=== PATIENT | male | born 1950 | race Caucasian/White ===

== ENCOUNTER 2016-07-25 22:56 | Inpatient (IN) | payer MEDICARE, OTHER ==
[~2016-07-25] VITALS: Ht 182.9 cm; Wt 102.6 kg
[~2016-07-25 22:56] MED LIST: ACET325T33 PO; ACID1TAB14 PO; ALBU2.5V3 NEB; ASPI-664 PO; CLOP75TA4 PO; CORE10CR PO; DULO30CA45 PO; FLUT16SP17 NASAL; GUAI-352 PO; HYDR-906 PO; LORA1TAB PO; PANT40TA3 PO; POLY17PO6 PO; SEVE800T7 PO
--- NOTE | 2016-07-25 23:35 | ERA ---
ER Documentation Chief Complaint Date/Time DATE: 07/25/16 TIME: 23:33 Chief Complaint sent from [facility] for R axillary thrombus HPI The patient is a 66-year-old male, presenting to the ER because he was found to have a right axillary vein thrombus from the ultrasound. He was discharged recently 4 days ago for right upper extremity cellulitis. He denies any fever, chills, shortness of breath, chest pain, palpitation, diaphoresis, abdominal pain, vomiting, dysuria, polyuria. He does not smoke, drink Past medical history: Hypertension, chronic kidney disease, hemodialysis on Saturday and Saturday, seizure disorder, Parkinson disease, COPD, history of CHF, peripheral vascular disease, anxiety, depression, dyslipidemia, CAD, pulmonary hypertension. Past surgical history: Left upper extremity AV fistula, left below-knee amputation, cholecystectomy, cardiac PCI ROS All systems reviewed and are negative except as per history of present illness. Medications Home Meds Reported Medications Carvedilol* (Coreg CR*) 10 Mg Capsr, 12.5 MG PO BID, #30 CAP 07/20/16 Acetaminophen* (Tylenol*) 325 Mg Tablet, 650 MG PO Q6H Y for PAIN1-3/FEVER ABOVE 100, TAB 07/03/16 Sevelamer Carbonate* (Renvela*) 800 Mg Tablet, 0.8 GM PO WITH MEALS, TAB 07/03/16 Pantoprazole* (Protonix*) 40 Mg Tablet.dr, 40 MG PO DAILY, TAB 07/03/16 Clopidogrel Bisulfate* (Clopidogrel Bisulfate*) 75 Mg Tablet, 75 MG PO DAILY, # 30 TAB 07/03/16 Hydrocodone/Acetaminophen ([place] 5-325 Tablet) 1 Each Tablet, 1 EACH PO Q4 Y for PAIN5-10, TAB 07/03/16 Polyethylene Glycol* (Miralax*) 17 Gm Powd.pack, 17 GM PO DAILY, #30 PACKET 07/03/16 Guaifenesin (RICK-TUSSIN) 100 Mg/5 Ml Liquid, 100 MG PO Q4 Y for PRN 07/03/16 Lactobacillus Acidoph/Bulgaricus* (Floranex*) 1 Each Tablet, 1 TAB.CHEW PO DAILY , TAB.CHEW 07/03/16 Fluticasone Propionate* (Fluticasone Propionate* Nasal) 50 Mcg/[place] - 16 Gm [place].susp, 1 SPRAY NASAL Q4, #1 BOTTLE TO EACH NOSTRIL 07/03/16 Duloxetine Hcl* (Cymbalta*) 30 Mg Capsule.dr, 90 MG PO DAILY for MAJOR DEPRESSIVE DISORDER, CAP 07/03/16 Lorazepam* (Lorazepam*) 1 Mg Tablet, 1 MG PO Q6 Y for ANXIETY, #60 TAB 07/03/16 Aspirin* (Aspirin* EC) 81 Mg Tablet.dr, 81 MG PO DAILY, TAB 07/03/16 Albuterol Sulfate* (Albuterol Sulfate* Neb) 0.083%-3 Ml Neb, 2.5 MG NEB Q4H, # 30 VIAL 07/03/16 Discontinued Reported Medications Amino Acids/Protein Hydrolys (Pro-Stat Awc Liquid) 30 Ml Liquid, 30 ML PO BID 07/03/16 Lidocaine (Lidoderm) 1 Each Adh..patch, 1 EACH TP Q12 Y for APPLY 1 PATCH TO LEFT HIP 07/03/16 Clonidine Hcl* (Clonidine Hcl*) 0.1 Mg Tab, 0.1 MG PO Q6, TAB FOR HYPERTENSION SBP>160 07/03/16 Carvedilol* (Carvedilol*) 25 Mg Tablet, 25 MG PO BID, #60 TAB HOLD FOR SBP<110 OR HR<60 07/03/16 Allergies Allergies: Coded Allergies: Penicillins (Verified Allergy, Mild, 07/20/16) adhesive (Verified Allergy, Unknown, RASHES, 07/20/16) latex (Verified Allergy, Unknown, 07/20/16) ondansetron (Unverified Allergy, Unknown, 07/20/16) Uncoded Allergies: MACK (Allergy, Mild, RUN[place]SE, 05/18/09) GRASS,WEEDS (Allergy, Unknown, 09/24/07) PLASTIC TAPE (Adverse Reaction, Mild, RASH, 02/01/12) PMhx/Soc History of Surgery: Yes (LT UPPER ARM AVF,LT BKA,LT HIP SURGERY,GALLBLADDER REMOVAL) Anesthesia Reaction: No Hx Neurological Disorder: Yes (SEIZURE,PARKINSON'S) Hx Respiratory Disorders: Yes (ACUTE RESP DISTRESS SYNDROME,COPD) Hx Cardiac Disorders: Yes (CHF,HTN,PVD) Hx Psychiatric Problems: Yes (DEPRESSION,ANXIETY) Hx Miscellaneous Medical Probl: Yes (ANEMIA,HYPERLIPIDEMIA) Hx Alcohol Use: No Hx Substance Use: No Hx Tobacco Use: No Physical Exam Vitals Vital Signs Date Time Temp Pulse Resp B/P Pulse Ox O2 Delivery O2 Flow Rate FiO2 07/26/16 02:32 80 21 119/65 100 Nasal Cannula 4.0 07/26/16 01:45 81 23 133/67 100 Room Air 07/26/16 01:28 78 20 130/65 100 Room Air 07/25/16 23:41 88 21 136/73 100 Nasal Cannula 4.0 07/25/16 23:17 98.1 78 18 131/63 100 Physical Exam Const: No acute distress. Head: Atraumatic. Eyes: Normal Conjunctiva. ENT: Normal External Ears, Nose and Mouth. Neck: Full range of motion. No meningismus. Resp: Clear to auscultation bilaterally. Cardio: Regular rate and rhythm, no murmurs. Abd: Soft, non distended, normal bowel sounds, non tender. Skin: No petechiae or rashes. Back: No midline or flank tenderness. Ext: Ecchymosis at left proximal humerus Neur: Awake and alert. No focal deficit Psych: Normal Mood and Affect. Result Diagram: 07/26/167 07/26/1646 Results 24 hrs Laboratory Tests Test 07/26/16 00:47 Activated Partial Thromboplast Time 35.1Sec Anion Gap 13 Basophils # 0.010^3/ul Basophils % 0.5% Blood Morphology Comment Blood Urea Nitrogen 25mg/dl Calcium Level 7.6mg/dl Carbon Dioxide Level 32mmol/L Chloride Level 98mmol/L Creatinine 3.41mg/dl Eosinophils # 0.210^3/ul Eosinophils % 2.7% Glucose Level 109mg/dl Hematocrit 28.7% Hemoglobin 9.4g/dl INR International Normalized Ratio 1.19 Lymphocytes # 0.810^3/ul Lymphocytes % 11.6% Mean Corpuscular Hemoglobin 32.5pg Mean Corpuscular Hemoglobin Concent 32.9g/dl Mean Corpuscular Volume 98.8fl Mean Platelet Volume 6.5fl Monocytes # 0.610^3/ul Monocytes % 8.1% Neutrophils # 5.410^3/ul Neutrophils % 77.1% Nucleated Red Blood Cells # 0.010^3/ul Nucleated Red Blood Cells % 0.0/100WBC Platelet Count 38894^3/UL Potassium Level 4.1mmol/L Prothrombin Time 15.2Sec Prothrombin Time Ratio 1.2 Red Blood Count 2.9010^6/ul Red Cell Distribution Width 14.9% Sodium Level 139mmol/L White Blood Count 7.110^3/ul Current Medications Medications (Trade) Dose Ordered Sig/Kemar Route PRN Reason Start Time Stop Time Status Last Admin Dose Admin Heparin Sodium (Porcine) 7100 unit 7,100 unit ONCE ONCE IV 07/26/16 02:00 07/26/16 02:01 DC 07/26/16 02:09 Heparin Sodium (Porcine) (Heparin 29033 Units/250 ml) 250 ml @ 16 mls/hr Q24H IV 07/26/16 02:00 07/26/16 02:15 Heparin Sodium (Porcine) (Heparin (1000 Units/ml)) PRN PRN IV PENDING LAB VALUE 07/26/16 08:00 Procedures/MDM MEDICAL MAKING DECISION: The patient is a 66-year-old male, presenting with acute right axillary vein thrombosis. He was treated with heparin drip after consulting with the admitting physician Dr Devine. The differential diagnoses considered include but are not limited to PE, cellulitis, abscess Departure Diagnosis: Primary Impression: Acute thrombosis of right axillary vein Additional Impression: Anemia Condition: Stable Comments I discussed the findings with the patient. I discussed the patient with his physician who was made aware of the lab, the treatment, the patient condition. The patient is admitted to telemetry at 1:50 AM EMILY MARTIN MD Jul 25, 2016 23:35
[2016-07-26] VITALS (18 sets, daily range): BP systolic 131–179; BP diastolic 54–86; PULSE 59–89; RESP 18–20; TEMP 98.1; Ht 182.9 cm; Wt 102.6 kg
[2016-07-26 01:12] LABS: INR 1.19; PROTIME 15.2 Sec (12.2-14.2); PT RATIO 1.2
[2016-07-26 01:13] LABS: PARTIAL THROMBOPLASTIN TIME 35.1 Sec (25.0-35.0)
[2016-07-26 01:15] LABS: POTASSIUM 4.1 mmol/L (3.5-5.1)
[2016-07-26 01:18] LABS: CREATININE 3.41 mg/dl (0.61-1.24)
[2016-07-26 01:19] LABS: CALCIUM 7.6 mg/dl (8.4-10.2)
[2016-07-26 01:47] LABS: BASOPHILS % 0.5 % (0.0-2.0); EOSINOPHILS # 0.2 10^3/ul (0.0-0.5); EOSINOPHILS % 2.7 % (0.0-7.0); HEMATOCRIT 28.7 % (42.0-52.0); HEMOGLOBIN 9.4 g/dl (14.0-18.0); LYMPHOCYTES # 0.8 10^3/ul (0.8-2.9); LYMPHOCYTES % 11.6 % (15.0-51.0); MEAN CORPUSCULAR HEMOGLOBIN 32.5 pg (29.0-33.0); MEAN CORPUSCULAR HGB CONC 32.9 g/dl (32.0-37.0); MEAN CORPUSCULAR VOLUME 98.8 fl (82.0-101.0); MEAN PLATELET VOLUME 6.5 fl (7.4-10.4); MONOCYTE # 0.6 10^3/ul (0.3-0.9); MONOCYTES % 8.1 % (0.0-11.0); NEUTROPHIL # 5.4 10^3/ul (1.6-7.5); NEUTROPHILS % 77.1 % (39.0-77.0); PLATELET COUNT 198 10^3/UL (140-440); RED CELL DISTRIBUTION WIDTH 14.9 % (11.5-14.5); UNCORRECTED WBC 7.1 10^3/ul (4.8-10.8); WHITE BLOOD COUNT 7.1 10^3/ul (4.8-10.8)
[2016-07-26 01:53] LABS: CONDITION 1; LH ANALYZER COMMENTS 1
[2016-07-26] MEDS ORDERED: HEPARIN 1000 UNITS/ML 10 ML INJ IV ONE (02:00)
[2016-07-26] MEDS: HEPARIN 25000 UNITS/D5W 250 ML (VPH) IV SCH (02:15)
[2016-07-26] MEDS ORDERED: CLIN-72 PO (07:23)
[2016-07-26] MEDS ORDERED: FLUT16SP17 NASAL (07:37)
[2016-07-26] MEDS ORDERED: HYDR-906 PO (07:39)
[2016-07-26] MEDS ORDERED: HEPARIN 1000 UNITS/ML 10 ML INJ IV PRN (08:00)
[2016-07-26] MEDS ORDERED: ACETAMINOPHEN 325 MG TAB PO PRN (09:00)
[2016-07-26] MEDS ORDERED: ASPIRIN (EC) 81 MG TAB PO SCH (09:00)
[2016-07-26] MEDS ORDERED: CLOPIDOGREL 75 MG TAB PO SCH (09:00)
[2016-07-26] MEDS ORDERED: GUAIFENESIN 20 MG/ML 5ML CUP PO PRN (09:00)
[2016-07-26] MEDS: POLYETHYLENE GLYCOL 17 GM PACKET PO SCH (09:00)
[2016-07-26] MEDS ORDERED: ALBUTEROL 0.083% (NEB) 2.5 MG/3 ML AMP ONE (09:37)
[2016-07-26] MEDS: ALBUTEROL 0.083% (NEB) 2.5 MG/3 ML AMP HHN SCH ×4 (09:44→20:59)
[2016-07-26] MEDS: LACTOBACILLUS CHEW TAB PO SCH (10:00)
[2016-07-26] MEDS: DULOXETINE 30 MG CAP DR PO SCH (10:00)
[2016-07-26] MEDS: FLUTICASONE 0.05% 16 GM NAS SPRAY NASAL SCH ×2 (10:00→22:36)
[2016-07-26] MEDS: CLINDAMYCIN 150 MG CAP PO SCH ×4 (10:00→23:50)
[2016-07-26] MEDS: PANTOPRAZOLE (EC) 40 MG TAB PO SCH (10:00)
--- NOTE | 2016-07-26 11:07 | HP ---
Date/Time of Note Date/Time of Note DATE: 07/26/16 TIME: 10:53 Assessment/Plan VTE Prophylaxis VTE Prophylaxis Intervention: heparin Lines/Catheters IV Catheter Type (from Nrs): Peripheral IV Assessment/Plan Assessment/Plan Acute thrombosis of right axillary vein 1. Acute respiratory failure secondary to exacerbation of congestive heart failure. Continue premorbid bolus fluids with hemodialysis Dr. Andresw is following the patient from pulmonology standpoint. Continue oxygen supplementation and bronchodilators. 2. End-stage renal disease. - per Dr. Boyer and nephrology consultation. Continue hemodialysis. 3. Systolic and diastolic congestive heart failure with possible exacerbation. Dr. Leon is following in cardiology consultation. 4. Coronary artery disease status post PTCA. 5. Osteoporosis. 6. Depression- no acute issues 7. History of left hip fracture, treated conservatively. 8. Ruled out acute coronary syndrome. 9. Pulmonary hypertension. 10. Hx Partial thrombosis of right cephalic and right internal jugular veins, continue heparin subcutaneous 3 times a day. continue warm compress for comfort. 11. Anemia 12. Hx Parkinson Sequential compression devices for deep venous thrombosis prophylaxis. Protonix for peptic ulcer disease prophylaxis. Further recommendations based on clinical course. Plan of care discussed with Dr. Miramontes. HPI/ROS Admit Date/Time Admit Date/Time Jul 26, 2016 at 01:55 Hx of Present Illness sent from [facility] for R axillary thrombus HPI The patient is a 66-year-old male, presenting to the ER because he was found to have a right axillary vein thrombus from the ultrasound. He was discharged recently 4 days ago for right upper extremity cellulitis. He denies any fever, chills, shortness of breath, chest pain, palpitation, diaphoresis, abdominal pain, vomiting, dysuria, polyuria. He does not smoke, drink Past medical history: Hypertension, chronic kidney disease, hemodialysis on Saturday and Saturday, seizure disorder, Parkinson disease, COPD, history of CHF, peripheral vascular disease, anxiety, depression, dyslipidemia, CAD, pulmonary hypertension. Past surgical history: Left upper extremity AV fistula, left below-knee amputation, cholecystectomy, cardiac PCI ROS All systems reviewed and are negative except as per history of present illness. Medications Home Meds Reported Medications Carvedilol* (Coreg CR*) 10 Mg Capsr, 12.5 MG PO BID, #30 CAP 07/20/16 Acetaminophen* (Tylenol*) 325 Mg Tablet, 650 MG PO Q6H Y for PAIN1-3/FEVER ABOVE 100, TAB 07/03/16 Sevelamer Carbonate* (Renvela*) 800 Mg Tablet, 0.8 GM PO WITH MEALS, TAB 07/03/16 Pantoprazole* (Protonix*) 40 Mg Tablet.dr, 40 MG PO DAILY, TAB 07/03/16 Clopidogrel Bisulfate* (Clopidogrel Bisulfate*) 75 Mg Tablet, 75 MG PO DAILY, # 30 TAB 07/03/16 Hydrocodone/Acetaminophen ([place] 5-325 Tablet) 1 Each Tablet, 1 EACH PO Q4 Y for PAIN5-10, TAB 07/03/16 Polyethylene Glycol* (Miralax*) 17 Gm Powd.pack, 17 GM PO DAILY, #30 PACKET 07/03/16 Guaifenesin (RICK-TUSSIN) 100 Mg/5 Ml Liquid, 100 MG PO Q4 Y for PRN 07/03/16 Lactobacillus Acidoph/Bulgaricus* (Floranex*) 1 Each Tablet, 1 TAB.CHEW PO DAILY , TAB.CHEW 07/03/16 Fluticasone Propionate* (Fluticasone Propionate* Nasal) 50 Mcg/[place] - 16 Gm [place].susp, 1 SPRAY NASAL Q4, #1 BOTTLE TO EACH NOSTRIL 07/03/16 Duloxetine Hcl* (Cymbalta*) 30 Mg Capsule.dr, 90 MG PO DAILY for MAJOR DEPRESSIVE DISORDER, CAP 07/03/16 Lorazepam* (Lorazepam*) 1 Mg Tablet, 1 MG PO Q6 Y for ANXIETY, #60 TAB 07/03/16 Aspirin* (Aspirin* EC) 81 Mg Tablet.dr, 81 MG PO DAILY, TAB 07/03/16 Albuterol Sulfate* (Albuterol Sulfate* Neb) 0.083%-3 Ml Neb, 2.5 MG NEB Q4H, # 30 VIAL 07/03/16 Discontinued Reported Medications Amino Acids/Protein Hydrolys (Pro-Stat Awc Liquid) 30 Ml Liquid, 30 ML PO BID 07/03/16 Lidocaine (Lidoderm) 1 Each Adh..patch, 1 EACH TP Q12 Y for APPLY 1 PATCH TO LEFT HIP 07/03/16 Clonidine Hcl* (Clonidine Hcl*) 0.1 Mg Tab, 0.1 MG PO Q6, TAB FOR HYPERTENSION SBP>160 07/03/16 Carvedilol* (Carvedilol*) 25 Mg Tablet, 25 MG PO BID, #60 TAB HOLD FOR SBP<110 OR HR<60 07/03/16 Allergies Penicillins (Verified Allergy, Mild, 07/20/16) adhesive (Verified Allergy, Unknown, RASHES, 07/20/16) latex (Verified Allergy, Unknown, 07/20/16) ondansetron (Unverified Allergy, Unknown, 07/20/16) MACK (Allergy, Mild, RUNNY NOSE, 05/18/09) GRASS,WEEDS (Allergy, Unknown, 09/24/07) PLASTIC TAPE (Adverse Reaction, Mild, RASH, 02/01/12) ROS Eyes: no complaints ENT: no complaints Respiratory: shortness of breath Cardiovascular: no complaints Gastrointestinal: nausea Genitourinary: no complaints Musculoskeletal: other (c/o right calf pain- mild at present) Skin: no complaints Neurologic: no complaints Endocrine: no complaints PMH/Family/Social Past Medical History PMhx/Soc History of Surgery: Yes (LT UPPER ARM AVF,LT BKA,LT HIP SURGERY,GALLBLADDER REMOVAL) Anesthesia Reaction: No Hx Neurological Disorder: Yes (SEIZURE,PARKINSON'S) Hx Respiratory Disorders: Yes (ACUTE RESP DISTRESS SYNDROME,COPD) Hx Cardiac Disorders: Yes (CHF,HTN,PVD) Hx Psychiatric Problems: Yes (DEPRESSION,ANXIETY) Hx Miscellaneous Medical Probl: Yes (ANEMIA,HYPERLIPIDEMIA) Hx Alcohol Use: No Hx Substance Use: No Hx Tobacco Use: No Past Surgical History Past Surgical Hx: angioplasty Social History Smoking Status: Former smoker Exam/Review of Systems Vital Signs Vitals Vital Signs Date Time Temp Pulse Resp B/P Pulse Ox O2 Delivery O2 Flow Rate FiO2 07/26/16 10:36 Nasal Cannula 2.0 07/26/16 09:47 78 28 97 07/26/16 08:09 97.6 138/63 Exam Constitutional: alert Psych: no complaints Eyes: nl conjunctiva ENMT: nl external ears & nose Neck: non-tender Respiratory: diminished breath sounds Cardiovascular: nl pulses Gastrointestinal: non-tender, soft Musculoskeletal: other Extremities: other (Left BKA) Neurological: nl speech Skin: other Lymph: nontender Labs Result Diagram: 07/26/16 0047 07/26/167 Medications Medications Current Medications Heparin Sodium (Porcine) (Heparin 25092 Units/250 ml) 250 ml @ 16 mls/hr Q24H IV Last administered on 07/26/16at 02:15; Admin Dose 16 MLS/HR; Start 07/26/16 at 02:00 Heparin Sodium (Porcine) (Heparin (1000 Units/ml)) PRN PRN IV PENDING LAB VALUE; Start 07/26/16 at 08:00 Acetaminophen (Tylenol Tab) 650 mg Q6H PRN PO PAIN1-3/FEVER ABOVE 100; Start 07/26/16 at 09:00 Aspirin (Halfprin) 81 mg DAILY PO ; Start 07/26/16 at 09:00 Clindamycin HCl (Cleocin) 150 mg QID PO ; Start 07/26/16 at 10:00 Clopidogrel Bisulfate (plaVIX) 75 mg DAILY PO ; Start 07/26/16 at 09:00; Status UNV Duloxetine HCl (Cymbalta) 90 mg DAILY PO ; Start 07/26/16 at 10:00 Fluticasone Propionate (Flonase 0.05% Nasal) 1 spray BID NASAL ; Start 07/26/16 at 10:00 Guaifenesin (Robitussin Liquid Cup) 100 mg Q4 PRN PO COUGH; Start 07/26/16 at 09:00 Acetaminophen/ Hydrocodone Bitart ([place] (5/325)) 1 tab Q4 PRN PO WSOB; Start 07/26/16 at 09:00 Lactobacillus Acidoph/Bulgaricus (Floranex) 1 tab DAILY PO ; Start 07/26/16 at 10:00 Lorazepam (Ativan) 1 mg Q6 PRN PO ANXIETY; Start 07/26/16 at 09:00 Pantoprazole (Protonix Tab) 40 mg DAILY PO ; Start 07/26/16 at 10:00 Polyethylene Glycol (Miralax) 17 gm DAILY PO ; Start 07/26/16 at 09:00 GRACIE KATHLEEN Jul 26, 2016 11:06
[2016-07-26] MEDS: SEVELAMER CARBONATE 0.8 GM PKT PO SCH ×2 (12:00→17:07)
[2016-07-26 12:59] LABS: BASOPHILS % 0.6 % (0.0-2.0); EOSINOPHILS # 0.1 10^3/ul (0.0-0.5); EOSINOPHILS % 1.8 % (0.0-7.0); HEMATOCRIT 27.5 % (42.0-52.0); LYMPHOCYTES # 0.7 10^3/ul (0.8-2.9); LYMPHOCYTES % 10.5 % (15.0-51.0); MEAN CORPUSCULAR HEMOGLOBIN 32.6 pg (29.0-33.0); MEAN CORPUSCULAR HGB CONC 32.9 g/dl (32.0-37.0); MEAN PLATELET VOLUME 6.2 fl (7.4-10.4); MONOCYTE # 0.5 10^3/ul (0.3-0.9); MONOCYTES % 7.4 % (0.0-11.0); NEUTROPHIL # 5.3 10^3/ul (1.6-7.5); NEUTROPHILS % 79.7 % (39.0-77.0); PLATELET COUNT 190 10^3/UL (140-440); RED BLOOD COUNT 2.77 10^6/ul (4.70-6.10); RED CELL DISTRIBUTION WIDTH 14.1 % (11.5-14.5); UNCORRECTED WBC 6.7 10^3/ul (4.8-10.8); WHITE BLOOD COUNT 6.7 10^3/ul (4.8-10.8)
[2016-07-26 13:09] LABS: CONDITION 1
[2016-07-26] MEDS: LORAZEPAM 1 MG TAB PO PRN (14:03)
[2016-07-26] MEDS: HYDROCODONE/APAP (5/325) TAB PO PRN (14:03)
--- NOTE | 2016-07-26 14:35 | CONS ---
Date/Time of Note Date/Time of Note DATE: 07/26/16 TIME: 14:20 Assessment/Plan Assessment/Plan Additional Assessment/Plan Axillary vein thrombosis based on outside report Diastolic congestive heart failure End-stage renal disease on hemodialysis CAD with history of PCI Diabetes Peripheral arterial disease with history of amputation Pulmonary hypertension -Venous ultrasound dated 07/25/2016 with occlusive thrombus in the right axillary vein. Patient start on heparin. Given renal dysfunction, unable to use novel anticoagulants and would start Coumadin therapy if no contraindication. Of note, report states right internal jugular and subclavian veins are patent. Would stop aspirin therapy, fluid management as per nephrology via hemodialysis. Consultation Date/Type/Reason Admit Date/Time Jul 26, 2016 at 01:55 Type of Consultation: cv Reason for Consultation Cardiology evaluation Hx of Present Illness This is a 66-year-old male with an extensive past medical history who was recently discharged from our facility. Patient was swelling in the right upper extremity and underwent ultrasound which demonstrated DVT in the axillary vein. For this reason, patient was transferred to [facility] for further evaluation and care. He does complain of mild discomfort in the right arm, he denies shortness of breath, dizziness or lightheadedness. 12 point review of systems was performed with all pertinent positives and negatives mentioned above and all else negative Eyes: no complaints ENT: no complaints Respiratory: shortness of breath Cardiovascular: no complaints Gastrointestinal: nausea Genitourinary: no complaints Musculoskeletal: other (c/o right calf pain- mild at present) Skin: no complaints Neurologic: no complaints Psychological: no complaints Past Medical History Diastolic congestive heart failure End-stage renal disease on hemodialysis CAD with history of PCI Diabetes Peripheral arterial disease with history of amputation Pulmonary hypertension Past Surgical History Lower extremity amputation Dialysis fistula Past Surgical Hx: angioplasty Family History Significant Family History: no pertinent family hx Social History Smoking Status: Former smoker Other Social History From [facility] facility Exam/Review of Systems Vital Signs Vitals Vital Signs Date Time Temp Pulse Resp B/P Pulse Ox O2 Delivery O2 Flow Rate FiO2 07/26/16 13:30 84 07/26/16 12:41 22 98 Nasal Cannula 2.0 07/26/16 12:15 97.8 162/86 Exam No apparent distress, undergoing hemodialysis Constitutional: alert, oriented Head: normocephalic Neck: supple Respiratory: other (course breath sounds bilaterally, no wheezing) Cardiovascular: other (S1-S2 heard), regular rate and rhythm, systolic murmur Gastrointestinal: bowel sounds, non-tender, soft Extremities: edema (trace) Results Result Diagram: 07/26/16 1235 07/26/16 0047 Results 24 hrs Laboratory Tests Test 07/26/16 00:47 07/26/16 09:00 07/26/16 12:35 Activated Partial Thromboplast Time 35.1 H > 180.0 *H 124.6 *H Anion Gap 13 Basophils # 0.0 0.0 Basophils % 0.5 0.6 Blood Morphology Comment Blood Urea Nitrogen 25 H Calcium Level 7.6 L Carbon Dioxide Level 32 H Chloride Level 98 Creatinine 3.41 H Eosinophils # 0.2 0.1 Eosinophils % 2.7 1.8 Glucose Level 109 Hematocrit 28.7 L 27.5 L Hemoglobin 9.4 L 9.0 L INR International Normalized Ratio 1.19 Lymphocytes # 0.8 0.7 L Lymphocytes % 11.6 L 10.5 L Mean Corpuscular Hemoglobin 32.5 32.6 Mean Corpuscular Hemoglobin Concent 32.9 32.9 Mean Corpuscular Volume 98.8 99.0 Mean Platelet Volume 6.5 L 6.2 L Monocytes # 0.6 0.5 Monocytes % 8.1 7.4 Neutrophils # 5.4 5.3 Neutrophils % 77.1 H 79.7 H Nucleated Red Blood Cells # 0.0 0.0 Nucleated Red Blood Cells % 0.0 0.0 Platelet Count 198 # 190 Potassium Level 4.1 Prothrombin Time 15.2 H Prothrombin Time Ratio 1.2 Red Blood Count 2.90 L 2.77 L Red Cell Distribution Width 14.9 H 14.1 Sodium Level 139 White Blood Count 7.1 6.7 Medications Medications Current Medications Heparin Sodium (Porcine) (Heparin 08763 Units/250 ml) 250 ml @ 16 mls/hr Q24H IV Last administered on 07/26/16at 02:15; Admin Dose 16 MLS/HR; Start 07/26/16 at 02:00 Heparin Sodium (Porcine) (Heparin (1000 Units/ml)) PRN PRN IV PENDING LAB VALUE; Start 07/26/16 at 08:00 Acetaminophen (Tylenol Tab) 650 mg Q6H PRN PO PAIN1-3/FEVER ABOVE 100; Start 07/26/16 at 09:00 Aspirin (Halfprin) 81 mg DAILY PO ; Start 07/26/16 at 09:00 Clindamycin HCl (Cleocin) 150 mg QID PO ; Start 07/26/16 at 10:00 Clopidogrel Bisulfate (plaVIX) 75 mg DAILY PO ; Start 07/26/16 at 09:00; Status UNV Duloxetine HCl (Cymbalta) 90 mg DAILY PO ; Start 07/26/16 at 10:00 Fluticasone Propionate (Flonase 0.05% Nasal) 1 spray BID NASAL ; Start 07/26/16 at 10:00 Guaifenesin (Robitussin Liquid Cup) 100 mg Q4 PRN PO COUGH; Start 07/26/16 at 09:00 Acetaminophen/ Hydrocodone Bitart ([place] (5/325)) 1 tab Q4 PRN PO WSOB Last administered on 07/26/16at 14:03; Admin Dose 1 TAB; Start 07/26/16 at 09:00 Lactobacillus Acidoph/Bulgaricus (Floranex) 1 tab DAILY PO ; Start 07/26/16 at 10:00 Lorazepam (Ativan) 1 mg Q6 PRN PO ANXIETY Last administered on 07/26/16at 14:03 ; Admin Dose 1 MG; Start 07/26/16 at 09:00 Pantoprazole (Protonix Tab) 40 mg DAILY PO ; Start 07/26/16 at 10:00 Polyethylene Glycol (Miralax) 17 gm DAILY PO ; Start 07/26/16 at 09:00 Solo Leon DO Jul 26, 2016 14:30
--- NOTE | 2016-07-26 14:59 | CONS ---
DATE OF ADMISSION: 07/26/2016 DATE OF CONSULTATION: 07/26/2016 TYPE OF CONSULTATION: Nephrology consultation. HISTORY OF PRESENT ILLNESS: This is one of several [facility] admissions for this 66-year-old gentleman we ll known to me with end-stage renal disease due to diabetes and hypertension, maintained on outpatie nt hemodialysis every Saturday, , and Saturday via a left upper extremity IV graft. He was recently at [facility] with congestive heart failure and associated pulmonary hypertension who ultim ately was discharged back to his convalescence facility 4 to 5 days ago. He was admitted last evening through the ER with a reported right axillary vein thrombosis and was p laced on intravenous heparin and is now here in the hospital on dialysis. Of note, the patient already is on aspirin and Plavix, and I have not seen the ultrasound documentat ion as of yet. Additionally, in discussing issues with the patient he denies any pain or swelling in the right uppe r extremity currently, is noted with ecchymoses in the lateral aspect of his right upper arm, but th ere is no kashif swelling of the hand, forearm or biceps area of the right upper extremity. He denies any cough, sputum production, hemoptysis or pleuritic chest pain or worsening shortness of breath. PAST MEDICAL HISTORY: Please see full dictated problem list. ALLERGIES: 1. PENICILLIN. 2. LASIX. HABITS: Tobacco: None. Alcohol: None. CURRENT MEDICATIONS: Here in the hospital include: 1. heparin drip 2. Aspirin 81 mg a day. 3. Plavix 75 mg a day. 4. Clindamycin 150 mg q.i.d. 5. Cymbalta 90 mg a day. 6. Lorazepam p.r.n. 7. Pantoprazole 40 mg a day. 8. MiraLax 17 grams daily. 9. Renvela 2 tabs t.i.d. with meals. REVIEW OF SYSTEMS: As per HPI. PHYSICAL EXAMINATION: GENERAL: Awake and alert gentleman currently on dialysis in no acute distress. VITAL SIGNS: He is afebrile. Blood pressure is 138/70, heart rate 70 and regular, respirations are 12 and unlabored, O2 saturation is 99% on 2 liters. SKIN: Ecchymoses about the right triceps area. HEAD: Normocephalic, atraumatic. EYES: Pupils appear round, reactive. Extraocular movements are full. Sclerae are anicteric. PHARYNX: No lesions. NECK: JVP is not distended. BACK: No CVAT. LUNGS: Show diminished breath sounds throughout but no rales or wheezes. HEART: S1, S2, regular rate and rhythm. ABDOMEN: Obese, soft, nontender, no organomegaly. EXTREMITIES: Well-functioning left upper extremity AV fistula. He is status post a left BKA. There are ecchymoses about the right triceps area as noted. There is no edema about the right forearm, n kang or shoulder area. LABORATORY DATA: White count 7.1, hemoglobin 9.4, hematocrit 28.7, platelet count 198,000. INR is 1.19, potassium is 4.1. Apparently an ultrasound of the legs and arms has been ordered here at [facility]. PROBLEM LIST: 1. End-stage renal disease due to diabetes and hypertension, currently on dialysis and maintained o n outpatient dialysis every Saturday, and Saturday. 2. Questionable history of right axillary vein thrombosis at least to my exam there is no kashif rig ht upper extremity edema. He does have ecchymoses but the patient denies any recent trauma or fall. 3. Chronic obstructive pulmonary disease with pulmonary hypertension documented last admission. 4. Peripheral vascular disease, status post left BKA years ago. 5. Known coronary artery disease, status post PTCA in the past. 6. Remote history of hypertension, currently inactive. 7. Hyperlipidemia, on therapy. 8. Prior history of a left hip fracture, treated conservatively without surgery. 9. Osteoporosis. 10. Depression. 11. Anxiety. RECOMMENDATIONS: 1. Hemodialysis with fluid removal as tolerated. 2. Await followup ultrasounds. 3. Patient is quite vigorously anticoagulated at this point with aspirin, Plavix and intravenous he wander and I would be somewhat concerned about that degree of anticoagulation. Dictated By: MOSES GUAJARDO MD, MM/OLESYA Conf#: [id number] DID#: [id number]
--- NOTE | 2016-07-26 16:06 | RADRPT ---
PROCEDURE: US bilateral lower extremity veins. CLINICAL INDICATION: Bilateral leg pain and swelling. TECHNIQUE: Multiple longitudinal and transverse images of the bilateral lower extremity veins were obtained with mckeon scale and color Doppler imaging. The common femoral vein, femoral vein, and popl iteal vein were evaluated. 2D grayscale measurements with compression sonography, color Doppler, and pulsed Doppler with augmentation. COMPARISON: No prior studies are available for comparison. FINDINGS: The bilateral common femoral, femoral and popliteal veins are normally compressible throughout. Col or flow demonstrates normal filling of the vessels. Normal waveforms are visualized and there is no rmal response to augmentation. IMPRESSION: 1. No evidence of deep vein thrombosis involving either lower extremity. RPTAT: QQ .Luca Hopkins MD, MD Date Time Electronically viewed and signed by .Luca Hopkins MD, on 07/26/2016 16:06 .R/
--- NOTE | 2016-07-26 16:25 | RADRPT ---
PROCEDURE: XR Chest. CLINICAL INDICATION: Shortness of breath. TECHNIQUE: Single frontal view. COMPARISON: 07/17/2016. FINDINGS: The right IJ catheter has been removed. There is mild atelectasis at the lung bases. Pulmonary dominik ma is improved. The lungs are otherwise clear. The heart is enlarged. There is no pleural effusion. There is no pneumothorax. IMPRESSION: 1. Right IJ catheter removed. 2. Mild atelectasis at the lung bases. 3. Improved pulmonary edema. 4. Cardiomegaly. RPTAT: QQ .Luca Hopkins MD, Date Time Electronically viewed and signed by .Luca Hopkins MD, on 07/26/2016 16:25 .R/
--- NOTE | 2016-07-26 16:30 | RADRPT ---
PROCEDURE: US upper extremity Venous. CLINICAL INDICATION: arm swelling TECHNIQUE: Multiple sonographic images of the bilateral upper extremity venous system was obtained utilizing grayscale, color-flow, compressive sonography and doppler imaging with augmentation. The images were reviewed on a PACS workstation. COMPARISON: 07/14/2016 FINDINGS: There is normal compressibility and flow within the bilateral subclavian vein, axillary vein, brachi al, basilic, cephalic, radial and ulnar veins. The right internal jugular vein is partially compressible, consistent with partial DVT. The left internal jugular vein is patent. 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 .Jun Cummings MD, Date Time Electronically viewed and signed by .Jun Cummings MD, on 07/26/2016 16:29 .S/
[2016-07-26] MEDS: SILDENAFIL 20 MG TAB PO SCH ×2 (17:07→23:50)
--- NOTE | 2016-07-26 17:16 | RADRPT ---
PROCEDURE: Ventilation-perfusion lung scan CLINICAL INDICATION: 66 -year-old patient with shortness of breath. TECHNIQUE: Following the inhalation of approximately 1.0 mCi of Tc-99m stannous DTPA aerosol, vent ilation images were obtained. The patient was then given an intravenous injection of 4.0 mCi of Tc- 99m MAA, in perfusion images were obtained. COMPARISON: No prior VQ scans. Correlation was made with chest x-ray dated July 26, 2016. FINDINGS: The cardiac silhouette appears to be enlarged. Ventilation images demonstrate patchy nonhomogeneous distribution of activity in the lungs bilateral ly and a linear ventilation defect in the right mid lung zone.. Perfusion images reveal a matched linear appearing perfusion defect in the right mid lung zone and, otherwise, matched patchy nonhomogeneous distribution of activity in both lungs. The findings represent low probability for pulmonary embolus. IMPRESSION: 1. Low probability for pulmonary embolus. 2. Cardiomegaly. RPTAT: HH .Yris Haynes MD, MD Date Time Electronically viewed and signed by .Yris Haynes MD, on 07/26/2016 17:15 .L/
[2016-07-27] VITALS (13 sets, daily range): BP systolic 132–182; BP diastolic 60–78; PULSE 16–85; RESP 18
[2016-07-27] MEDS: HEPARIN 25000 UNITS/D5W 250 ML (VPH) IV SCH (01:43)
[2016-07-27] MEDS: ALBUTEROL 0.083% (NEB) 2.5 MG/3 ML AMP HHN SCH ×6 (01:52→20:45)
[2016-07-27 07:09] LABS: INR 1.19; PROTIME 15.2 Sec (12.2-14.2); PT RATIO 1.2
[2016-07-27 07:11] LABS: PARTIAL THROMBOPLASTIN TIME 67.4 Sec (25.0-35.0)
[2016-07-27 07:37] LABS: POTASSIUM 3.2 mmol/L (3.5-5.1)
[2016-07-27 07:40] LABS: CALCIUM 7.8 mg/dl (8.4-10.2); CREATININE 2.93 mg/dl (0.61-1.24)
[2016-07-27] MEDS: FLUTICASONE 0.05% 16 GM NAS SPRAY NASAL SCH ×2 (08:25→20:22)
[2016-07-27] MEDS: SEVELAMER CARBONATE 0.8 GM PKT PO SCH ×3 (08:25→17:38)
[2016-07-27] MEDS: POLYETHYLENE GLYCOL 17 GM PACKET PO SCH (08:25)
[2016-07-27] MEDS: LACTOBACILLUS CHEW TAB PO SCH (08:25)
[2016-07-27] MEDS: HYDROCODONE/APAP (5/325) TAB PO PRN ×2 (08:25→17:37)
[2016-07-27] MEDS: DULOXETINE 30 MG CAP DR PO SCH (08:25)
[2016-07-27] MEDS: CLINDAMYCIN 150 MG CAP PO SCH ×4 (08:26→20:22)
[2016-07-27] MEDS: SILDENAFIL 20 MG TAB PO SCH ×2 (08:26→20:22)
[2016-07-27] MEDS: LORAZEPAM 1 MG TAB PO PRN ×2 (08:26→17:37)
[2016-07-27] MEDS: PANTOPRAZOLE (EC) 40 MG TAB PO SCH (08:26)
--- NOTE | 2016-07-27 08:51 | CONS ---
Date/Time of Note Date/Time of Note DATE: 07/27/16 TIME: 08:49 Assessment/Plan Assessment/Plan Additional Assessment/Plan 1. CKD sec to DM, on HD, next HD sched tomm 2. 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 Anemia, Epogen started and will eval iron stores 4. Low K, will replete Consultation Date/Type/Reason Admit Date/Time Jul 26, 2016 at 01:55 Initial Consult Date Type of Consultation: cv Detailed Summary Respiratory: shortness of breath (is mild without cough) Cardiovascular: No chest pain Gastrointestinal: other (mild abd cramping without vomiting) Genitourinary: no complaints Neurologic: other (sl arm arm soreness) Exam/Review of Systems Vital Signs Vitals Vital Signs Date Time Temp Pulse Resp B/P Pulse Ox O2 Delivery O2 Flow Rate FiO2 07/27/16 08:36 97.5 77 18 169/72 100 07/27/16 04:55 Nasal Cannula 2.0 Intake and Output 07/26/16 07/26/16 07/27/16 15:00 23:00 07:00 Intake Total 300 ml 370 ml 257 ml Output Total 4300 ml Balance -4000 ml 370 ml 257 ml Exam Neck: No jvd Respiratory: clear to auscultation, diminished breath sounds Cardiovascular: regular rate and rhythm Gastrointestinal: soft Extremities: No edema (ecymoses right biceps area) Results Result Diagram: 07/26/16 1235 07/27/16 0620 Results 24 hrs Laboratory Tests Test 07/26/16 09:00 07/26/16 12:35 07/26/16 15:00 07/26/16 22:40 Activated Partial Thromboplast Time > 180.0 *H 124.6 *H 42.8 H 116.3 *H Basophils # 0.0 Basophils % 0.6 Blood Morphology Comment Eosinophils # 0.1 Eosinophils % 1.8 Hematocrit 27.5 L Hemoglobin 9.0 L Lymphocytes # 0.7 L Lymphocytes % 10.5 L Mean Corpuscular Hemoglobin 32.6 Mean Corpuscular Hemoglobin Concent 32.9 Mean Corpuscular Volume 99.0 Mean Platelet Volume 6.2 L Monocytes # 0.5 Monocytes % 7.4 Neutrophils # 5.3 Neutrophils % 79.7 H Nucleated Red Blood Cells # 0.0 Nucleated Red Blood Cells % 0.0 Platelet Count 190 Red Blood Count 2.77 L Red Cell Distribution Width 14.1 White Blood Count 6.7 Test 07/27/16 06:20 Activated Partial Thromboplast Time 67.4 H Anion Gap 13 Blood Urea Nitrogen 16 # Calcium Level 7.8 L Carbon Dioxide Level 32 H Chloride Level 97 Creatinine 2.93 H Glucose Level 117 INR International Normalized Ratio 1.19 Potassium Level 3.2 L Prothrombin Time 15.2 H Prothrombin Time Ratio 1.2 Sodium Level 139 Medications Medications Current Medications Heparin Sodium (Porcine) (Heparin 75786 Units/250 ml) 250 ml @ 16 mls/hr Q24H IV Last administered on 07/27/16 01:43; Admin Dose 11 MLS/HR; Start 07/26/16 at 02:00 Heparin Sodium (Porcine) (Heparin (1000 Units/ml)) PRN PRN IV PENDING LAB VALUE; Start 07/26/16 at 08:00 Acetaminophen (Tylenol Tab) 650 mg Q6H PRN PO PAIN1-3/FEVER ABOVE 100; Start 07/26/16 at 09:00 Clindamycin HCl (Cleocin) 150 mg QID PO Last administered on 07/27/16 08:26; Admin Dose 150 MG; Start 07/26/16 at 10:00 Duloxetine HCl (Cymbalta) 90 mg DAILY PO Last administered on 07/27/16 08:25; Admin Dose 90 MG; Start 07/26/16 at 10:00 Fluticasone Propionate (Flonase 0.05% Nasal) 1 spray BID NASAL Last administered on 07/27/16 08:25; Admin Dose 1 SPRAY; Start 07/26/16 at 10:00 Guaifenesin (Robitussin Liquid Cup) 100 mg Q4 PRN PO COUGH; Start 07/26/16 at 09:00 Acetaminophen/ Hydrocodone Bitart ([place] (5/325)) 1 tab Q4 PRN PO WSOB Last administered on 07/27/16 08:25; Admin Dose 1 TAB; Start 07/26/16 at 09:00 Lactobacillus Acidoph/Bulgaricus (Floranex) 1 tab DAILY PO Last administered on 07/27/16 08:25; Admin Dose 1 TAB; Start 07/26/16 at 10:00 Lorazepam (Ativan) 1 mg Q6 PRN PO ANXIETY Last administered on 07/27/16 08:26 ; Admin Dose 1 MG; Start 07/26/16 at 09:00 Pantoprazole (Protonix Tab) 40 mg DAILY PO Last administered on 07/27/16 08:26 ; Admin Dose 40 MG; Start 07/26/16 at 10:00 Polyethylene Glycol (Miralax) 17 gm DAILY PO Last administered on 07/27/16 08: 25; Admin Dose 17 GM; Start 07/26/16 at 09:00 Sildenafil Citrate (Revatio) 20 mg BID PO Last administered on 07/27/16 08:26 ; Admin Dose 20 MG; Start 07/26/16 at 18:00 JESSICA ROSARIO MD Jul 27, 2016 08:51
[2016-07-27] MEDS ORDERED: POTASSIUM CHLORIDE (SR) 10 MEQ TAB PO ONE (09:00)
[2016-07-27] MEDS: MULTIVIT/CA CARB/B CMPLX/FA TAB PO SCH (10:32)
--- NOTE | 2016-07-27 12:11 | CONS ---
Date/Time of Note Date/Time of Note DATE: 07/27/16 TIME: 12:07 Assessment/Plan Assessment/Plan Additional Assessment/Plan Partial right internal jugular DVT Diastolic congestive heart failure End-stage renal disease on hemodialysis CAD with history of PCI Diabetes Peripheral arterial disease with history of amputation Pulmonary hypertension -Patient with repeat ultrasound demonstrated right internal jugular partial DVT. This was present on ultrasound on July 14. Patient did have a central line in the right IJ. Etiology likely secondary to central line, I would anticoagulate for minimum of 3 months if no contraindication given likely subacute DVT. Patient was on aspirin and Plavix secondary to coronary artery disease and peripheral arterial disease. Would hold one of the antiplatelet agents given patient being started on anticoagulation. Given renal dysfunction, will start Coumadin. Consultation Date/Type/Reason Admit Date/Time Jul 26, 2016 at 01:55 Initial Consult Date Type of Consultation: cv 24 HR Interval Summary Free Text/Dictation Patient denies shortness of breath or chest pain, arm discomfort has resolved Exam/Review of Systems Vital Signs Vitals Vital Signs Date Time Temp Pulse Resp B/P Pulse Ox O2 Delivery O2 Flow Rate FiO2 07/27/16 11:58 98.3 76 18 132/63 96 07/27/16 09:55 Nasal Cannula 2.0 Intake and Output 07/26/16 07/26/16 07/27/16 15:00 23:00 07:00 Intake Total 300 ml 370 ml 257 ml Output Total 4300 ml Balance -4000 ml 370 ml 257 ml Exam No apparent distress Constitutional: alert, oriented Head: normocephalic Neck: supple Cardiovascular: other (S1 and S2 heard), regular rate and rhythm Gastrointestinal: bowel sounds, non-tender, soft Extremities: edema Results Result Diagram: 07/26/16 1235 07/27/16 0620 Results 24 hrs Laboratory Tests Test 07/26/16 12:35 07/26/16 15:00 07/26/16 22:40 07/27/16 06:20 Activated Partial Thromboplast Time 124.6 *H 42.8 H 116.3 *H 67.4 H Basophils # 0.0 Basophils % 0.6 Blood Morphology Comment Eosinophils # 0.1 Eosinophils % 1.8 Hematocrit 27.5 L Hemoglobin 9.0 L Lymphocytes # 0.7 L Lymphocytes % 10.5 L Mean Corpuscular Hemoglobin 32.6 Mean Corpuscular Hemoglobin Concent 32.9 Mean Corpuscular Volume 99.0 Mean Platelet Volume 6.2 L Monocytes # 0.5 Monocytes % 7.4 Neutrophils # 5.3 Neutrophils % 79.7 H Nucleated Red Blood Cells # 0.0 Nucleated Red Blood Cells % 0.0 Platelet Count 190 Red Blood Count 2.77 L Red Cell Distribution Width 14.1 White Blood Count 6.7 Anion Gap 13 B-Type Natriuretic Peptide > 302833 H Blood Urea Nitrogen 16 # Calcium Level 7.8 L Carbon Dioxide Level 32 H Chloride Level 97 Creatinine 2.93 H Glucose Level 117 INR International Normalized Ratio 1.19 Potassium Level 3.2 L Prothrombin Time 15.2 H Prothrombin Time Ratio 1.2 Sodium Level 139 Medications Medications Current Medications Heparin Sodium (Porcine) (Heparin 18154 Units/250 ml) 250 ml @ 16 mls/hr Q24H IV Last administered on 07/27/16 01:43; Admin Dose 11 MLS/HR; Start 07/26/16 at 02:00 Heparin Sodium (Porcine) (Heparin (1000 Units/ml)) PRN PRN IV PENDING LAB VALUE; Start 07/26/16 at 08:00 Acetaminophen (Tylenol Tab) 650 mg Q6H PRN PO PAIN1-3/FEVER ABOVE 100; Start 07/26/16 at 09:00 Clindamycin HCl (Cleocin) 150 mg QID PO Last administered on 07/27/16 08:26; Admin Dose 150 MG; Start 07/26/16 at 10:00 Duloxetine HCl (Cymbalta) 90 mg DAILY PO Last administered on 07/27/16 08:25; Admin Dose 90 MG; Start 07/26/16 at 10:00 Fluticasone Propionate (Flonase 0.05% Nasal) 1 spray BID NASAL Last administered on 07/27/16 08:25; Admin Dose 1 SPRAY; Start 07/26/16 at 10:00 Guaifenesin (Robitussin Liquid Cup) 100 mg Q4 PRN PO COUGH; Start 07/26/16 at 09:00 Acetaminophen/ Hydrocodone Bitart ([place] (5/325)) 1 tab Q4 PRN PO WSOB Last administered on 07/27/16 08:25; Admin Dose 1 TAB; Start 07/26/16 at 09:00 Lactobacillus Acidoph/Bulgaricus (Floranex) 1 tab DAILY PO Last administered on 07/27/16 08:25; Admin Dose 1 TAB; Start 07/26/16 at 10:00 Lorazepam (Ativan) 1 mg Q6 PRN PO ANXIETY Last administered on 07/27/16 08:26 ; Admin Dose 1 MG; Start 07/26/16 at 09:00 Pantoprazole (Protonix Tab) 40 mg DAILY PO Last administered on 07/27/16 08:26 ; Admin Dose 40 MG; Start 07/26/16 at 10:00 Polyethylene Glycol (Miralax) 17 gm DAILY PO Last administered on 07/27/16 08: 25; Admin Dose 17 GM; Start 07/26/16 at 09:00 Sildenafil Citrate (Revatio) 20 mg BID PO Last administered on 07/27/16 08:26 ; Admin Dose 20 MG; Start 07/26/16 at 18:00 Epoetin [place] (Epogen (Esrd)) 10,000 units MoWeFr@17 SC ; Start 07/27/16 at 17:00 Multivit/Ca Carb/ B Cmplx/FA/Prenat (Cheryl-Darcie) 1 tab DAILY PO Last administered on 07/27/16 10:32; Admin Dose 1 TAB; Start 07/27/16 at 09:00 Solo Leon DO Jul 27, 2016 12:11
[2016-07-27] MEDS ORDERED: WARFARIN 7.5 MG TAB PO ONE (12:30)
[2016-07-27] MEDS: ASPIRIN (EC) 81 MG TAB PO SCH (12:45)
[2016-07-27] MEDS: EPOETIN 10000 UNITS/1 ML INJ (ESRD) SC SCH (17:38)
--- NOTE | 2016-07-27 18:12 | PN ---
Date/Time of Note Date/Time of Note DATE: 07/27/16 TIME: 18:05 Assessment/Plan VTE Prophylaxis VTE Prophylaxis Intervention: heparin Lines/Catheters IV Catheter Type (from [facility]): Peripheral IV Assessment/Plan Chief Complaint/Hosp Course 1. Partial right internal jugular DVT. Continue heparin drip per protocol. Continue Coumadin. Continue daily PT PTT. 2. End-stage renal disease hemodialysis dependent. Dr. Davila is following in nephrology consultation 3. Diastolic congestive heart failure. Continue to remove fluid was hemodialysis. 4. Pulmonary edema, improved. 5. Coronary artery disease with history of PCI. 6. Depression. Continue Cymbalta 7. History of left hip fracture, treated conservatively. 8. Osteoporosis. 9. Pulmonary hypertension. Continue sildenafil. Continue heparin for deep venous thrombosis prophylaxis and Protonix for peptic ulcer disease prophylaxis Further recommendations based on clinical course. Plan of care discussed with Dr. Miramontes. Problems: Subjective 24 Hr Interval Summary Free Text/Dictation Patient looks comfortable on supplemental oxygen, no nausea vomiting fever reported. Exam/Review of Systems Vital Signs Vitals Vital Signs Date Time Temp Pulse Resp B/P Pulse Ox O2 Delivery O2 Flow Rate FiO2 07/27/16 16:41 2.0 07/27/16 16:39 75 20 93 Nasal Cannula 07/27/16 15:36 98.6 136/62 Intake and Output 07/26/16 07/26/16 07/27/16 15:00 23:00 07:00 Intake Total 300 ml 370 ml 257 ml Output Total 4300 ml Balance -4000 ml 370 ml 257 ml Exam GENERAL: This is a well-developed, well-nourished male who currently is awake, alert on supplemental oxygen. HEENT: Head is atraumatic, normocephalic. Pupils equal, round, reactive to light and accommodation. NECK: Supple, no cervical lymphadenopathy. R IJ TLC. CHEST: The patient with diminished air entry into the lungs. CARDIOVASCULAR: Normal S1, S2. No murmurs, gallops, clicks, rubs noted. ABDOMEN: Round, soft, nondistended, nontender. Bowel sounds present. There is no guarding, no rebound tenderness. EXTREMITIES: Left upper extremity with arteriovenous fistula with palpable thrill and audible bruit. The patient is status post left BKA. Right lower extremity with mild edema, present pulse. SKIN: There is no rash, petechiae noted. NEUROLOGIC: The patient is awake, alert and oriented to name and situation. Results Result Diagram: 07/26/16 1235 07/27/16 0620 Results 24 hrs Laboratory Tests Test 07/26/16 22:40 07/27/16 06:20 07/27/16 14:27 Activated Partial Thromboplast Time 116.3 *H 67.4 H > 180.0 *H Anion Gap 13 B-Type Natriuretic Peptide > 653157 H Blood Urea Nitrogen 16 # Calcium Level 7.8 L Carbon Dioxide Level 32 H Chloride Level 97 Creatinine 2.93 H Glucose Level 117 INR International Normalized Ratio 1.19 Potassium Level 3.2 L Prothrombin Time 15.2 H Prothrombin Time Ratio 1.2 Sodium Level 139 Medications Medications Current Medications Heparin Sodium (Porcine) (Heparin 49840 Units/250 ml) 250 ml @ 16 mls/hr Q24H IV Last administered on 07/27/16at 01:43; Admin Dose 11 MLS/HR; Start 07/26/16 at 02:00 Heparin Sodium (Porcine) (Heparin (1000 Units/ml)) PRN PRN IV PENDING LAB VALUE; Start 07/26/16 at 08:00 Acetaminophen (Tylenol Tab) 650 mg Q6H PRN PO PAIN1-3/FEVER ABOVE 100; Start 07/26/16 at 09:00 Clindamycin HCl (Cleocin) 150 mg QID PO Last administered on 07/27/16at 17:37; Admin Dose 150 MG; Start 07/26/16 at 10:00 Duloxetine HCl (Cymbalta) 90 mg DAILY PO Last administered on 07/27/16at 08:25; Admin Dose 90 MG; Start 07/26/16 at 10:00 Fluticasone Propionate (Flonase 0.05% Nasal) 1 spray BID NASAL Last administered on 07/27/16 08:25; Admin Dose 1 SPRAY; Start 07/26/16 at 10:00 Guaifenesin (Robitussin Liquid Cup) 100 mg Q4 PRN PO COUGH; Start 07/26/16 at 09:00 Acetaminophen/ Hydrocodone Bitart ([place] (5/325)) 1 tab Q4 PRN PO WSOB Last administered on 07/27/16at 17:37; Admin Dose 1 TAB; Start 07/26/16 at 09:00 Lactobacillus Acidoph/Bulgaricus (Floranex) 1 tab DAILY PO Last administered on 07/27/16 08:25; Admin Dose 1 TAB; Start 07/26/16 at 10:00 Lorazepam (Ativan) 1 mg Q6 PRN PO ANXIETY Last administered on 07/27/16 17:37 ; Admin Dose 1 MG; Start 07/26/16 at 09:00 Pantoprazole (Protonix Tab) 40 mg DAILY PO Last administered on 07/27/16 08:26 ; Admin Dose 40 MG; Start 07/26/16 at 10:00 Polyethylene Glycol (Miralax) 17 gm DAILY PO Last administered on 07/27/16 08: 25; Admin Dose 17 GM; Start 07/26/16 at 09:00 Sildenafil Citrate (Revatio) 20 mg BID PO Last administered on 07/27/16 08:26 ; Admin Dose 20 MG; Start 07/26/16 at 18:00 Epoetin [place] (Epogen (Esrd)) 10,000 units MoWeFr@17 SC Last administered on 17:38; Admin Dose 10,000 UNITS; Start 07/27/16 at 17:00 Multivit/Ca Carb/ B Cmplx/FA/Prenat (Cehryl-Darcie) 1 tab DAILY PO Last administered on 07/27/16 10:32; Admin Dose 1 TAB; Start 07/27/16 at 09:00 Warfarin Sodium (Coumadin) 5 mg DAILY@17 PO ; Start 07/28/16 at 17:00 Aspirin (Halfprin) 81 mg DAILY PO Last administered on 07/27/16 12:45; Admin Dose 81 MG; Start 07/27/16 at 12:45 MARY DOMINGUEZ Jul 27, 2016 18:11
--- NOTE | 2016-07-27 18:44 | CONS ---
DATE OF ADMISSION: 07/26/2016 DATE OF CONSULTATION: 07/27/2016 TYPE OF CONSULTATION: Pulmonary. REASON FOR CONSULTATION: Shortness of breath. Thank you, Dr. Miramontes, for this consultation. REASON FOR CONSULT: Shortness of breath. HISTORY OF PRESENT ILLNESS: This is a 66-year-old gentleman with a history of end-stage renal failu re on hemodialysis, presented with several-day history of increasing shortness of breath, orthopnea, PND. No fever, no chills, no chest pain or palpitations. He is Saturday, and Saturday param lysis patient pulmonary edema, underwent hemodialysis with subsequent improvement in his hypox emia, initially he required noninvasive positive pressure ventilation. PAST MEDICAL HISTORY: 1. End-stage renal failure on hemodialysis. 2. Congestive cardiac failure. 3. Coronary artery disease. 4. History of acute thrombosis, right axillary vein. 5. History of Parkinson disease. MEDICATIONS: Per chart. ALLERGIES: NONE. SOCIAL HISTORY: Nonsmoker, no alcohol, no history of drug use. ALLERGIES: PENICILLIN. PHYSICAL EXAMINATION: GENERAL: Chronically ill appearing gentleman, comfortable at rest, no acute distress. VITAL SIGNS: Currently afebrile, pulse is 75, blood pressure 136/62, O2 saturation 96% on room air. NECK: Supple. No JVD or lymphadenopathy. CARDIAC: S1, S2, no added sounds or murmurs. CHEST: Diminished air entry bilaterally. ABDOMEN: Soft, nontender. No guarding or rebound. EXTREMITIES: No cyanosis, clubbing, or edema. NEUROLOGIC: Grossly intact. No focal deficits. LABORATORY DATA: White count 6.7, hemoglobin 9.0, platelets 190. Chemistry: BUN 16, creatinine 2. 93. BNP was greater than 175,000. IMPRESSION AND PLAN: 1. Acute upper extremity deep vein thrombosis. 2. Pulmonary edema with congestive cardiac failure. 3. Acute on chronic hypoxemic respiratory failure. 4. End-stage renal failure on hemodialysis. The patient will require: 1. Continued anticoagulation with heparin. 2. Hemodialysis with volume removal. 3. Aspiration precautions. 4. Blood pressure control. 5. DVT and GI prophylaxis. Dictated By: VALERIE GOODE/OLESYA Conf#: [id number] DID#: [id number]
[2016-07-28] VITALS (21 sets, daily range): BP systolic 95–160; BP diastolic 47–78; PULSE 75–97; RESP 17–19
[2016-07-28] MEDS: ALBUTEROL 0.083% (NEB) 2.5 MG/3 ML AMP HHN SCH ×6 (01:18→20:50)
[2016-07-28] MEDS: HEPARIN 25000 UNITS/D5W 250 ML (VPH) IV SCH ×2 (04:11→12:04)
[2016-07-28] MEDS: HYDROCODONE/APAP (5/325) TAB PO PRN ×2 (04:49→20:26)
[2016-07-28] MEDS: LORAZEPAM 1 MG TAB PO PRN ×2 (04:50→20:27)
[2016-07-28 08:05] LABS: BASOPHILS % 0.5 % (0.0-2.0); EOSINOPHILS # 0.1 10^3/ul (0.0-0.5); HEMATOCRIT 29.1 % (42.0-52.0); HEMOGLOBIN 9.7 g/dl (14.0-18.0); LYMPHOCYTES # 0.5 10^3/ul (0.8-2.9); MEAN CORPUSCULAR HEMOGLOBIN 32.7 pg (29.0-33.0); MEAN CORPUSCULAR HGB CONC 33.2 g/dl (32.0-37.0); MEAN CORPUSCULAR VOLUME 98.6 fl (82.0-101.0); MEAN PLATELET VOLUME 6.1 fl (7.4-10.4); MONOCYTE # 0.8 10^3/ul (0.3-0.9); MONOCYTES % 12.9 % (0.0-11.0); NEUTROPHIL # 4.6 10^3/ul (1.6-7.5); NEUTROPHILS % 76.6 % (39.0-77.0); PLATELET COUNT 170 10^3/UL (140-440); RED BLOOD COUNT 2.95 10^6/ul (4.70-6.10); RED CELL DISTRIBUTION WIDTH 14.6 % (11.5-14.5)
[2016-07-28 08:10] LABS: CONDITION 1; LH ANALYZER COMMENTS 1
[2016-07-28 08:27] LABS: INR 1.52; PROTIME 18.4 Sec (12.2-14.2); PT RATIO 1.4
[2016-07-28 08:33] LABS: POTASSIUM 3.5 mmol/L (3.5-5.1)
[2016-07-28 08:36] LABS: CREATININE 4.02 mg/dl (0.61-1.24)
[2016-07-28 08:37] LABS: CALCIUM 7.8 mg/dl (8.4-10.2); PHOSPHORUS 3.4 mg/dl (2.5-4.9)
[2016-07-28] MEDS: SILDENAFIL 20 MG TAB PO SCH ×2 (09:00→20:27)
[2016-07-28] MEDS: MULTIVIT/CA CARB/B CMPLX/FA TAB PO SCH (09:14)
[2016-07-28] MEDS: SEVELAMER CARBONATE 0.8 GM PKT PO SCH ×3 (09:14→18:11)
[2016-07-28] MEDS: CLINDAMYCIN 150 MG CAP PO SCH ×4 (09:14→20:26)
[2016-07-28] MEDS: POLYETHYLENE GLYCOL 17 GM PACKET PO SCH (09:14)
[2016-07-28] MEDS: ASPIRIN (EC) 81 MG TAB PO SCH (09:14)
[2016-07-28] MEDS: LACTOBACILLUS CHEW TAB PO SCH (09:16)
[2016-07-28] MEDS: PANTOPRAZOLE (EC) 40 MG TAB PO SCH (09:16)
[2016-07-28] MEDS: DULOXETINE 30 MG CAP DR PO SCH (09:16)
[2016-07-28] MEDS: FLUTICASONE 0.05% 16 GM NAS SPRAY NASAL SCH ×2 (09:20→20:27)
[2016-07-28 10:39] LABS: IRON 42 ug/dl (35-150); TOTAL IRON BINDING CAPACITY 186 ug/dl (241-421)
--- NOTE | 2016-07-28 12:47 | PN ---
Date/Time of Note Date/Time of Note DATE: 07/28/16 TIME: 12:46 Assessment/Plan VTE Prophylaxis VTE Prophylaxis Intervention: other Lines/Catheters IV Catheter Type (from Nrs): Peripheral IV Assessment/Plan Assessment/Plan Acute thrombosis of right axillary vein 1. Acute respiratory failure secondary to exacerbation of congestive heart failure. Continue premorbid bolus fluids with hemodialysis Dr. Andrews is following the patient from pulmonology standpoint. Continue oxygen supplementation and bronchodilators. 2. End-stage renal disease. - per Dr. Boyer and nephrology consultation. Continue hemodialysis. 3. Systolic and diastolic congestive heart failure with possible exacerbation. Dr. Leon is following in cardiology consultation. 4. Coronary artery disease status post PTCA. 5. Osteoporosis. 6. Depression- no acute issues 7. History of left hip fracture, treated conservatively. 8. Ruled out acute coronary syndrome. 9. Pulmonary hypertension. 10. Hx Partial thrombosis of right cephalic and right internal jugular veins, continue heparin subcutaneous 3 times a day. continue warm compress for comfort. 11. Anemia 12. Hx Parkinson Sequential compression devices for deep venous thrombosis prophylaxis. Protonix for peptic ulcer disease prophylaxis. Further recommendations based on clinical course. Plan of care discussed with Dr. Miramontes. Subjective 24 Hr Interval Summary Eyes: no complaints ENT: no complaints Respiratory: no complaints Cardiovascular: no complaints Gastrointestinal: no complaints Genitourinary: no complaints Musculoskeletal: no complaints Skin: no complaints Neurologic: no complaints Endocrine: no complaints Exam/Review of Systems Vital Signs Vitals Vital Signs Date Time Temp Pulse Resp B/P Pulse Ox O2 Delivery O2 Flow Rate FiO2 07/28/16 12:05 82 07/28/16 11:35 98.3 17 143/67 99 07/28/16 08:01 Nasal Cannula 2.0 Intake and Output 07/27/16 07/27/16 07/28/16 15:00 23:00 07:00 Intake Total 1067 ml 60 ml Balance 1067 ml 60 ml Exam Psych: nl mood/affect Eyes: EOMI, nl sclera Neck: non-tender Respiratory: clear to auscultation Cardiovascular: nl pulses Gastrointestinal: non-tender, soft Extremities: normal pulses Neurological: nl speech Lymph: nontender Results Result Diagram: 07/28/16 0640 07/28/16 0640 Results 24 hrs Laboratory Tests Test 07/27/16 14:27 07/27/16 17:40 07/28/16 00:55 07/28/16 06:40 Activated Partial Thromboplast Time > 180.0 *H 47.5 H 102.5 *H 116.9 *H Anion Gap 16 Basophils # 0.0 Basophils % 0.5 Blood Morphology Comment Blood Urea Nitrogen 26 H Calcium Level 7.8 L Carbon Dioxide Level 29 Chloride Level 99 Creatinine 4.02 #H Eosinophils # 0.1 Eosinophils % 1.0 Ferritin 456.0 H Glucose Level 123 Hematocrit 29.1 L Hemoglobin 9.7 L INR International Normalized Ratio 1.52 Iron Level 42 Lymphocytes # 0.5 L Lymphocytes % 9.0 L Mean Corpuscular Hemoglobin 32.7 Mean Corpuscular Hemoglobin Concent 33.2 Mean Corpuscular Volume 98.6 Mean Platelet Volume 6.1 L Monocytes # 0.8 Monocytes % 12.9 H Neutrophils # 4.6 Neutrophils % 76.6 Nucleated Red Blood Cells # 0.0 Nucleated Red Blood Cells % 0.0 Percent Iron Saturation 23 Phosphorus Level 3.4 Platelet Count 170 Potassium Level 3.5 Prothrombin Time 18.4 #H Prothrombin Time Ratio 1.4 Red Blood Count 2.95 L Red Cell Distribution Width 14.6 H Sodium Level 140 Total Iron Binding Capacity 186 L White Blood Count 6.0 Medications Medications Current Medications Heparin Sodium (Porcine) (Heparin 02713 Units/250 ml) 250 ml @ 16 mls/hr Q24H IV Last administered on 07/28/16at 12:04; Admin Dose 7 MLS/HR; Start 07/26/16 at 02:00 Heparin Sodium (Porcine) (Heparin (1000 Units/ml)) PRN PRN IV PENDING LAB VALUE; Start 07/26/16 at 08:00 Acetaminophen (Tylenol Tab) 650 mg Q6H PRN PO PAIN1-3/FEVER ABOVE 100; Start 07/26/16 at 09:00 Clindamycin HCl (Cleocin) 150 mg QID PO Last administered on 07/28/16at 09:14; Admin Dose 150 MG; Start 07/26/16 at 10:00 Duloxetine HCl (Cymbalta) 90 mg DAILY PO Last administered on 07/28/16at 09:16 ; Admin Dose 90 MG; Start 07/26/16 at 10:00 Fluticasone Propionate (Flonase 0.05% Nasal) 1 spray BID NASAL Last administered on 07/28/16 09:20; Admin Dose 1 SPRAY; Start 07/26/16 at 10:00 Guaifenesin (Robitussin Liquid Cup) 100 mg Q4 PRN PO COUGH; Start 07/26/16 at 09:00 Acetaminophen/ Hydrocodone Bitart ([place] (5/325)) 1 tab Q4 PRN PO WSOB Last administered on 07/28/16 04:49; Admin Dose 1 TAB; Start 07/26/16 at 09:00 Lactobacillus Acidoph/Bulgaricus (Floranex) 1 tab DAILY PO Last administered on 07/28/16 09:16; Admin Dose 1 TAB; Start 07/26/16 at 10:00 Lorazepam (Ativan) 1 mg Q6 PRN PO ANXIETY Last administered on 07/28/16 04:50 ; Admin Dose 1 MG; Start 07/26/16 at 09:00 Pantoprazole (Protonix Tab) 40 mg DAILY PO Last administered on 07/28/16 09: 16; Admin Dose 40 MG; Start 07/26/16 at 10:00 Polyethylene Glycol (Miralax) 17 gm DAILY PO Last administered on 07/28/16 09 :14; Admin Dose 17 GM; Start 07/26/16 at 09:00 Sildenafil Citrate (Revatio) 20 mg BID PO Last administered on 07/27/16 20:22 ; Admin Dose 20 MG; Start 07/26/16 at 18:00 Epoetin [place] (Epogen (Esrd)) 10,000 units MoWeFr@17 SC Last administered on 17:38; Admin Dose 10,000 UNITS; Start 07/27/16 at 17:00 Multivit/Ca Carb/ B Cmplx/FA/Prenat (Cheryl-Darcie) 1 tab DAILY PO Last administered on 07/28/16 09:14; Admin Dose 1 TAB; Start 07/27/16 at 09:00 Warfarin Sodium (Coumadin) 5 mg DAILY@17 PO ; Start 07/28/16 at 17:00 Aspirin (Halfprin) 81 mg DAILY PO Last administered on 07/28/16 09:14; Admin Dose 81 MG; Start 07/27/16 at 12:45 GRACIE KATHLEEN Jul 28, 2016 12:47
--- NOTE | 2016-07-28 14:51 | CONS ---
Date/Time of Note Date/Time of Note DATE: 07/28/16 TIME: 14:48 Assessment/Plan Assessment/Plan Additional Assessment/Plan 1. End-stage renal failure on hemodialysis: next hd today 2. Congestive cardiac failure: compensated with hd. cont meds 3. Coronary artery disease: stable. cont medical managment 4. History of acute thrombosis, right axillary vein: on coumadin 5. History of Parkinson disease: cont meds/ pt 6- anemia in esrd: epogen with hd and am labs 7- htn: on meds and stable Consultation Date/Type/Reason Admit Date/Time Jul 26, 2016 at 01:55 Initial Consult Date tired but comfortable. denies sob. very weak. awaiting hd today. denies cp. complains of arm pain/ discomfort Type of Consultation: cv Exam/Review of Systems Vital Signs Vitals Vital Signs Date Time Temp Pulse Resp B/P Pulse Ox O2 Delivery O2 Flow Rate FiO2 07/28/16 13:20 90 20 98 2.0 07/28/16 11:35 98.3 143/67 07/28/16 08:30 Nasal Cannula Intake and Output 07/27/16 07/27/16 07/28/16 15:00 23:00 07:00 Intake Total 1067 ml 60 ml Balance 1067 ml 60 ml Exam Constitutional: alert Head: atraumatic, normocephalic Eyes: nl conjunctiva Neck: jvd (9 cms), non-tender, supple Respiratory: diminished breath sounds Cardiovascular: edema, regular rate and rhythm Gastrointestinal: non-tender, soft Results Result Diagram: 07/28/16 0640 07/28/16 0640 Results 24 hrs Laboratory Tests Test 07/27/16 17:40 07/28/16 00:55 07/28/16 06:40 Activated Partial Thromboplast Time 47.5 H 102.5 *H 116.9 *H Anion Gap 16 Basophils # 0.0 Basophils % 0.5 Blood Morphology Comment Blood Urea Nitrogen 26 H Calcium Level 7.8 L Carbon Dioxide Level 29 Chloride Level 99 Creatinine 4.02 #H Eosinophils # 0.1 Eosinophils % 1.0 Ferritin 456.0 H Glucose Level 123 Hematocrit 29.1 L Hemoglobin 9.7 L INR International Normalized Ratio 1.52 Iron Level 42 Lymphocytes # 0.5 L Lymphocytes % 9.0 L Mean Corpuscular Hemoglobin 32.7 Mean Corpuscular Hemoglobin Concent 33.2 Mean Corpuscular Volume 98.6 Mean Platelet Volume 6.1 L Monocytes # 0.8 Monocytes % 12.9 H Neutrophils # 4.6 Neutrophils % 76.6 Nucleated Red Blood Cells # 0.0 Nucleated Red Blood Cells % 0.0 Percent Iron Saturation 23 Phosphorus Level 3.4 Platelet Count 170 Potassium Level 3.5 Prothrombin Time 18.4 #H Prothrombin Time Ratio 1.4 Red Blood Count 2.95 L Red Cell Distribution Width 14.6 H Sodium Level 140 Total Iron Binding Capacity 186 L White Blood Count 6.0 Medications Medications Current Medications Heparin Sodium (Porcine) (Heparin 26902 Units/250 ml) 250 ml @ 16 mls/hr Q24H IV Last administered on 07/28/16at 12:04; Admin Dose 7 MLS/HR; Start 07/26/16 at 02:00 Heparin Sodium (Porcine) (Heparin (1000 Units/ml)) PRN PRN IV PENDING LAB VALUE; Start 07/26/16 at 08:00 Acetaminophen (Tylenol Tab) 650 mg Q6H PRN PO PAIN1-3/FEVER ABOVE 100; Start 07/26/16 at 09:00 Clindamycin HCl (Cleocin) 150 mg QID PO Last administered on 07/28/16 13:11; Admin Dose 150 MG; Start 07/26/16 at 10:00 Duloxetine HCl (Cymbalta) 90 mg DAILY PO Last administered on 07/28/16 09:16 ; Admin Dose 90 MG; Start 07/26/16 at 10:00 Fluticasone Propionate (Flonase 0.05% Nasal) 1 spray BID NASAL Last administered on 07/28/16at 09:20; Admin Dose 1 SPRAY; Start 07/26/16 at 10:00 Guaifenesin (Robitussin Liquid Cup) 100 mg Q4 PRN PO COUGH; Start 07/26/16 at 09:00 Acetaminophen/ Hydrocodone Bitart ([place] (5/325)) 1 tab Q4 PRN PO WSOB Last administered on 07/28/16at 04:49; Admin Dose 1 TAB; Start 07/26/16 at 09:00 Lactobacillus Acidoph/Bulgaricus (Floranex) 1 tab DAILY PO Last administered on 07/28/16at 09:16; Admin Dose 1 TAB; Start 07/26/16 at 10:00 Lorazepam (Ativan) 1 mg Q6 PRN PO ANXIETY Last administered on 07/28/16 04:50 ; Admin Dose 1 MG; Start 07/26/16 at 09:00 Pantoprazole (Protonix Tab) 40 mg DAILY PO Last administered on 07/28/16 09: 16; Admin Dose 40 MG; Start 07/26/16 at 10:00 Polyethylene Glycol (Miralax) 17 gm DAILY PO Last administered on 07/28/16at 09 :14; Admin Dose 17 GM; Start 07/26/16 at 09:00 Sildenafil Citrate (Revatio) 20 mg BID PO Last administered on 07/27/16at 20:22 ; Admin Dose 20 MG; Start 07/26/16 at 18:00 Epoetin [place] (Epogen (Esrd)) 10,000 units MoWeFr@17 SC Last administered on 07/27/16at 17:38; Admin Dose 10,000 UNITS; Start 07/27/16 at 17:00 Multivit/Ca Carb/ B Cmplx/FA/Prenat (Cheryl-Darcie) 1 tab DAILY PO Last administered on 07/28/16at 09:14; Admin Dose 1 TAB; Start 07/27/16 at 09:00 Warfarin Sodium (Coumadin) 5 mg DAILY@17 PO ; Start 07/28/16 at 17:00 Aspirin (Halfprin) 81 mg DAILY PO Last administered on 07/28/16at 09:14; Admin Dose 81 MG; Start 07/27/16 at 12:45 NORMA CABRAL MD Jul 28, 2016 14:51
[2016-07-28] MEDS: WARFARIN 5 MG TAB PO SCH (18:11)
--- NOTE | 2016-07-28 18:33 | CONS ---
Date/Time of Note Date/Time of Note DATE: 07/28/16 TIME: 18:31 Consult Date/Type/Reason Admit Date/Time Jul 26, 2016 at 01:55 Initial Consult Date Type of Consultation: pulm Subjective No events. Objective Vital Signs Date Time Temp Pulse Resp B/P Pulse Ox O2 Delivery O2 Flow Rate FiO2 07/28/16 18:21 77 07/28/16 15:56 97.5 19 118/56 97 07/28/16 13:20 2.0 07/28/16 08:30 Nasal Cannula Intake and Output 07/27/16 07/27/16 07/28/16 15:00 23:00 07:00 Intake Total 1067 ml 60 ml Balance 1067 ml 60 ml HEENT: Neck supple; no JVD; no LAD CVS: RRR, S1 and increased P2 CHEST: Clear ABD: Soft, NT, + BS EXT: No c/c/e Results/Medications Result Diagram: 07/28/16 0640 07/28/16 0640 Results 24 hrs Laboratory Tests Test 07/28/16 00:55 07/28/16 06:40 07/28/16 17:55 Activated Partial Thromboplast Time 102.5 *H 116.9 *H 85.6 *H Anion Gap 16 Basophils # 0.0 Basophils % 0.5 Blood Morphology Comment Blood Urea Nitrogen 26 H Calcium Level 7.8 L Carbon Dioxide Level 29 Chloride Level 99 Creatinine 4.02 #H Eosinophils # 0.1 Eosinophils % 1.0 Ferritin 456.0 H Glucose Level 123 Hematocrit 29.1 L Hemoglobin 9.7 L INR International Normalized Ratio 1.52 Iron Level 42 Lymphocytes # 0.5 L Lymphocytes % 9.0 L Mean Corpuscular Hemoglobin 32.7 Mean Corpuscular Hemoglobin Concent 33.2 Mean Corpuscular Volume 98.6 Mean Platelet Volume 6.1 L Monocytes # 0.8 Monocytes % 12.9 H Neutrophils # 4.6 Neutrophils % 76.6 Nucleated Red Blood Cells # 0.0 Nucleated Red Blood Cells % 0.0 Percent Iron Saturation 23 Phosphorus Level 3.4 Platelet Count 170 Potassium Level 3.5 Prothrombin Time 18.4 #H Prothrombin Time Ratio 1.4 Red Blood Count 2.95 L Red Cell Distribution Width 14.6 H Sodium Level 140 Total Iron Binding Capacity 186 L White Blood Count 6.0 Medications Current Medications Heparin Sodium (Porcine) (Heparin 25819 Units/250 ml) 250 ml @ 16 mls/hr Q24H IV Last administered on 07/28/16at 12:04; Admin Dose 7 MLS/HR; Start 07/26/16 at 02:00 Heparin Sodium (Porcine) (Heparin (1000 Units/ml)) PRN PRN IV PENDING LAB VALUE; Start 07/26/16 at 08:00 Acetaminophen (Tylenol Tab) 650 mg Q6H PRN PO PAIN1-3/FEVER ABOVE 100; Start 07/26/16 at 09:00 Clindamycin HCl (Cleocin) 150 mg QID PO Last administered on 07/28/16at 18:11; Admin Dose 150 MG; Start 07/26/16 at 10:00 Duloxetine HCl (Cymbalta) 90 mg DAILY PO Last administered on 07/28/16 09:16 ; Admin Dose 90 MG; Start 07/26/16 at 10:00 Fluticasone Propionate (Flonase 0.05% Nasal) 1 spray BID NASAL Last administered on 07/28/16at 09:20; Admin Dose 1 SPRAY; Start 07/26/16 at 10:00 Guaifenesin (Robitussin Liquid Cup) 100 mg Q4 PRN PO COUGH; Start 07/26/16 at 09:00 Acetaminophen/ Hydrocodone Bitart ([place] (5/325)) 1 tab Q4 PRN PO WSOB Last administered on 07/28/16at 04:49; Admin Dose 1 TAB; Start 07/26/16 at 09:00 Lactobacillus Acidoph/Bulgaricus (Floranex) 1 tab DAILY PO Last administered on 07/28/16at 09:16; Admin Dose 1 TAB; Start 07/26/16 at 10:00 Lorazepam (Ativan) 1 mg Q6 PRN PO ANXIETY Last administered on 07/28/16 04:50 ; Admin Dose 1 MG; Start 07/26/16 at 09:00 Pantoprazole (Protonix Tab) 40 mg DAILY PO Last administered on 07/28/16 09: 16; Admin Dose 40 MG; Start 07/26/16 at 10:00 Polyethylene Glycol (Miralax) 17 gm DAILY PO Last administered on 07/28/16 09 :14; Admin Dose 17 GM; Start 07/26/16 at 09:00 Sildenafil Citrate (Revatio) 20 mg BID PO Last administered on 07/27/16at 20:22 ; Admin Dose 20 MG; Start 07/26/16 at 18:00 Epoetin [place] (Epogen (Esrd)) 10,000 units MoWeFr@17 SC Last administered on 07/27/16at 17:38; Admin Dose 10,000 UNITS; Start 07/27/16 at 17:00 Multivit/Ca Carb/ B Cmplx/FA/Prenat (Cheryl-Darcie) 1 tab DAILY PO Last administered on 07/28/16at 09:14; Admin Dose 1 TAB; Start 07/27/16 at 09:00 Warfarin Sodium (Coumadin) 5 mg DAILY@17 PO Last administered on 07/28/16at 18: 11; Admin Dose 5 MG; Start 07/28/16 at 17:00 Aspirin (Halfprin) 81 mg DAILY PO Last administered on 07/28/16at 09:14; Admin Dose 81 MG; Start 07/27/16 at 12:45 Assessment/Plan Additional Assessment/Plan IMP 1. Volume overload and congestive heart failure. 2. End-stage renal disease on hemodialysis. 3. Severe Pulm HTN: disproportionate to what would be expected from WHO Group II causes. 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 Upper Ext DVT RECS: 1. Anticoagulation 2. Will need V/Q to complete Pulm HTN w/u to r/o CTEPH 3. Follow I/O's ASHLEY MOORE MD Jul 28, 2016 18:33
[2016-07-29] VITALS (21 sets, daily range): BP systolic 97–195; BP diastolic 55–88; PULSE 78–117; RESP 17–28
[2016-07-29] MEDS: HYDROCODONE/APAP (5/325) TAB PO PRN ×2 (00:50→18:52)
[2016-07-29] MEDS: ALBUTEROL 0.083% (NEB) 2.5 MG/3 ML AMP HHN SCH ×8 (01:04→20:58)
[2016-07-29] MEDS: HEPARIN 25000 UNITS/D5W 250 ML (VPH) IV SCH ×3 (05:51→09:45)
[2016-07-29 07:44] LABS: BASOPHILS % 0.2 % (0.0-2.0); EOSINOPHILS % 0.5 % (0.0-7.0); HEMATOCRIT 32.4 % (42.0-52.0); HEMOGLOBIN 10.6 g/dl (14.0-18.0); LYMPHOCYTES # 0.5 10^3/ul (0.8-2.9); LYMPHOCYTES % 7.8 % (15.0-51.0); MEAN CORPUSCULAR HEMOGLOBIN 32.4 pg (29.0-33.0); MEAN CORPUSCULAR HGB CONC 32.8 g/dl (32.0-37.0); MEAN PLATELET VOLUME 6.3 fl (7.4-10.4); MONOCYTE # 0.8 10^3/ul (0.3-0.9); MONOCYTES % 12.5 % (0.0-11.0); NEUTROPHIL # 4.9 10^3/ul (1.6-7.5); PLATELET COUNT 148 10^3/UL (140-440); RED BLOOD COUNT 3.27 10^6/ul (4.70-6.10); RED CELL DISTRIBUTION WIDTH 14.4 % (11.5-14.5); UNCORRECTED WBC 6.3 10^3/ul (4.8-10.8); WHITE BLOOD COUNT 6.3 10^3/ul (4.8-10.8)
[2016-07-29 07:51] LABS: CONDITION 1
[2016-07-29 08:09] LABS: INR 2.24; POTASSIUM 3.4 mmol/L (3.5-5.1)
[2016-07-29 08:11] LABS: BILIRUBIN,INDIRECT 0.1 mg/dl (0-1.1); BILIRUBIN,TOTAL 0.1 mg/dl (0.2-1.3); CREATININE 3.21 mg/dl (0.61-1.24)
[2016-07-29 08:12] LABS: ALBUMIN/GLOBULIN RATIO 0.88; CALCIUM 7.7 mg/dl (8.4-10.2); TOTAL PROTEIN 6.4 g/dl (6.1-8.1)
[2016-07-29] MEDS: ASPIRIN (EC) 81 MG TAB PO SCH (08:32)
[2016-07-29] MEDS: DULOXETINE 30 MG CAP DR PO SCH (08:32)
[2016-07-29] MEDS: SEVELAMER CARBONATE 0.8 GM PKT PO SCH ×3 (08:32→17:37)
[2016-07-29] MEDS: PANTOPRAZOLE (EC) 40 MG TAB PO SCH (08:32)
[2016-07-29] MEDS: MULTIVIT/CA CARB/B CMPLX/FA TAB PO SCH (08:33)
[2016-07-29] MEDS: SILDENAFIL 20 MG TAB PO SCH ×2 (08:33→22:54)
[2016-07-29] MEDS: LACTOBACILLUS CHEW TAB PO SCH (08:33)
[2016-07-29] MEDS: CLINDAMYCIN 150 MG CAP PO SCH ×4 (08:36→21:30)
[2016-07-29] MEDS: FLUTICASONE 0.05% 16 GM NAS SPRAY NASAL SCH ×2 (08:37→21:00)
[2016-07-29] MEDS: POLYETHYLENE GLYCOL 17 GM PACKET PO SCH (08:39)
[2016-07-29] MEDS: hydrALAzine 20 MG INJ IV PRN (12:59)
[2016-07-29] MEDS ORDERED: NITROGLYCERIN 2% 1 GM OINT PKT TD ONE (13:00)
[2016-07-29] MEDS: NITROGLYCERIN 2% 1 GM OINT PKT TD SCH ×2 (13:00→17:37)
[2016-07-29] MEDS ORDERED: VANCOMYCIN IV PER PHARMACY XX SCH (13:00)
[2016-07-29] MEDS ORDERED: POTASSIUM CHLORIDE (SR) 20 MEQ TAB PO STA (13:14)
[2016-07-29] MEDS ORDERED: POTASSIUM CHLORIDE 20 MEQ in SOD CHLORIDE 0.9% 100 ML IVPB ONE (13:30)
--- NOTE | 2016-07-29 14:41 | RADRPT ---
PROCEDURE: XR Chest. CLINICAL INDICATION: Hypertension and shortness of breath. TECHNIQUE: Single frontal view. COMPARISON: 07/26/2016. FINDINGS: There is mild atelectasis at the lung bases. Mild pulmonary edema is unchanged. The lungs are othe rwise clear. The heart is mildly enlarged. There is no pleural effusion. There is no pneumothorax. IMPRESSION: 1. Mild atelectasis at the lung bases and mild pulmonary edema, unchanged. 2. Mild cardiomegaly. 3. Otherwise normal chest x-ray. RPTAT: QQ .Luca Hopkins MD, MD Date Time Electronically viewed and signed by .Luca Hopkins MD, MD on 07/29/2016 14:41 .R/
[2016-07-29] MEDS ORDERED: VANCOMYCIN 1.75 GM in SOD CHLORIDE 0.9% 500 ML IVPB ONE (15:00)
[2016-07-29] MEDS ORDERED: VANCOMYCIN 1.75 GM in NS 500 ML IVPB SCH (15:00)
--- NOTE | 2016-07-29 15:21 | CONS ---
Date/Time of Note Date/Time of Note DATE: 07/29/16 TIME: 15:17 Assessment/Plan Assessment/Plan Additional Assessment/Plan 1. End-stage renal failure on hemodialysis: increased sob and persistent evidence of volume overload on exam. hd again today and in am 2. Congestive cardiac failure: as above 3. Coronary artery disease: stable. cont medical managment 4. History of acute thrombosis, right axillary vein: on coumadin 5. History of Parkinson disease: cont meds/ pt 6- anemia in esrd: epogen with hd and am labs 7- htn: bp high. lisinopril x1 today 8- fever: tello culture and emperic abx. cxr with chf . no infiltrates Consultation Date/Type/Reason Admit Date/Time Jul 26, 2016 at 01:55 Initial Consult Date tired but comfortable. denies sob. very weak. awaiting hd today. denies cp. complains of arm pain/ discomfort Type of Consultation: pulm Reason for Consultation events noted. bp elevated. fever to 103. increased sob. bp elevated at 190+/ coughing more Exam/Review of Systems Vital Signs Vitals Vital Signs Date Time Temp Pulse Resp B/P Pulse Ox O2 Delivery O2 Flow Rate FiO2 07/29/16 13:50 95 28 100 3.0 07/29/16 12:45 103.0 195/88 Nasal Cannula Intake and Output 07/28/16 07/28/16 07/29/16 15:00 23:00 07:00 Intake Total 354 ml 1514 ml Output Total 4000 ml Balance 354 ml -2486 ml Exam Constitutional: alert, distress Head: atraumatic, normocephalic Eyes: nl conjunctiva ENMT: nl external ears & nose Neck: jvd (10 cm), supple Respiratory: congested cough, diminished breath sounds Cardiovascular: edema, nl pulses, regular rate and rhythm Gastrointestinal: non-tender, soft Results Result Diagram: 07/29/16 0655 07/29/16 0655 Results 24 hrs Laboratory Tests Test 07/28/16 17:55 07/29/16 00:31 07/29/16 06:55 Activated Partial Thromboplast Time 85.6 *H 91.2 *H 63.4 H Alanine Aminotransferase (ALT/SGPT) 18 Albumin 3.0 L Albumin/Globulin Ratio 0.88 Alkaline Phosphatase 79 Anion Gap 12 Aspartate Amino Transf (AST/SGOT) 24 Basophils # 0.0 Basophils % 0.2 Blood Morphology Comment Blood Urea Nitrogen 19 Calcium Level 7.7 L Carbon Dioxide Level 33 H Chloride Level 96 L Creatinine 3.21 H Direct Bilirubin 0.00 Eosinophils # 0.0 Eosinophils % 0.5 Globulin 3.40 H Glucose Level 112 Hematocrit 32.4 L Hemoglobin 10.6 L INR International Normalized Ratio 2.24 Indirect Bilirubin 0.1 Lymphocytes # 0.5 L Lymphocytes % 7.8 L Mean Corpuscular Hemoglobin 32.4 Mean Corpuscular Hemoglobin Concent 32.8 Mean Corpuscular Volume 99.0 Mean Platelet Volume 6.3 L Monocytes # 0.8 Monocytes % 12.5 H Neutrophils # 4.9 Neutrophils % 79.0 H Nucleated Red Blood Cells # 0.0 Nucleated Red Blood Cells % 0.0 Platelet Count 148 Potassium Level 3.4 L Prothrombin Time 25.0 #H Prothrombin Time Ratio 2.0 Red Blood Count 3.27 L Red Cell Distribution Width 14.4 Sodium Level 138 Total Bilirubin 0.1 L Total Protein 6.4 White Blood Count 6.3 Medications Medications Current Medications Heparin Sodium (Porcine) (Heparin 31011 Units/250 ml) 250 ml @ 16 mls/hr Q24H IV Last administered on 07/29/16at 09:45; Admin Dose 9 MLS/HR; Start 07/26/16 at 02:00 Heparin Sodium (Porcine) (Heparin (1000 Units/ml)) PRN PRN IV PENDING LAB VALUE; Start 07/26/16 at 08:00 Acetaminophen (Tylenol Tab) 650 mg Q6H PRN PO PAIN1-3/FEVER ABOVE 100 Last administered on 07/29/16at 13:38; Admin Dose 650 MG; Start 07/26/16 at 09:00 Clindamycin HCl (Cleocin) 150 mg QID PO Last administered on 07/29/16 08:36; Admin Dose 150 MG; Start 07/26/16 at 10:00 Duloxetine HCl (Cymbalta) 90 mg DAILY PO Last administered on 07/29/16 08:32 ; Admin Dose 90 MG; Start 07/26/16 at 10:00 Fluticasone Propionate (Flonase 0.05% Nasal) 1 spray BID NASAL Last administered on 07/29/16 08:37; Admin Dose 1 SPRAY; Start 12/8/16 at 10:00 Guaifenesin (Robitussin Liquid Cup) 100 mg Q4 PRN PO COUGH Last administered on 07/29/16 00:53; Admin Dose 100 MG; Start 07/26/16 at 09:00 Acetaminophen/ Hydrocodone Bitart ([place] (5/325)) 1 tab Q4 PRN PO WSOB Last administered on 07/29/16 00:50; Admin Dose 1 TAB; Start 07/26/16 at 09:00 Lactobacillus Acidoph/Bulgaricus (Floranex) 1 tab DAILY PO Last administered on 07/29/16 08:33; Admin Dose 1 TAB; Start 07/26/16 at 10:00 Lorazepam (Ativan) 1 mg Q6 PRN PO ANXIETY Last administered on 07/28/16 20:27 ; Admin Dose 1 MG; Start 07/26/16 at 09:00 Pantoprazole (Protonix Tab) 40 mg DAILY PO Last administered on 07/29/16 08: 32; Admin Dose 40 MG; Start 07/26/16 at 10:00 Polyethylene Glycol (Miralax) 17 gm DAILY PO Last administered on 07/29/16 08 :39; Admin Dose 17 GM; Start 07/26/16 at 09:00 Sildenafil Citrate (Revatio) 20 mg BID PO Last administered on 07/29/16 08:33 ; Admin Dose 20 MG; Start 07/26/16 at 18:00 Epoetin [place] (Epogen (Esrd)) 10,000 units MoWeFr@17 SC Last administered on 17:38; Admin Dose 10,000 UNITS; Start 07/27/16 at 17:00 Multivit/Ca Carb/ B Cmplx/FA/Prenat (Cheryl-Darcie) 1 tab DAILY PO Last administered on 07/29/16 08:33; Admin Dose 1 TAB; Start 07/27/16 at 09:00 Warfarin Sodium (Coumadin) 5 mg DAILY@17 PO Last administered on 07/28/16 18: 11; Admin Dose 5 MG; Start 07/28/16 at 17:00 Aspirin (Halfprin) 81 mg DAILY PO Last administered on 07/29/16 08:32; Admin Dose 81 MG; Start 07/27/16 at 12:45 Hydralazine HCl (Apresoline) 10 mg Q6H PRN IV ELEVATED BLOOD PRESSURE Last administered on 07/29/16at 12:59; Admin Dose 10 MG; Start 07/29/16 at 13:00 Nitroglycerin 1 inch 1 inch Q6 TD ; Start 07/29/16 at 13:00 Vancomycin HCl/ Sodium Chloride (Vancocin/NS) 500 ml @ 125 mls/hr 15 ONCE IVPB ; Start 07/29/16 at 15:00; Stop 07/29/16 at 18:59 Lisinopril (Zestril) 10 mg ONCE ONCE PO ; Start 07/29/16 at 15:30; Stop 07/29 at 15:31; Status UNNORMA HELM MD Jul 29, 2016 15:21
[2016-07-29] MEDS: AZTREONAM 1 GM/NS (PMX) 50 ML IVPB SCH ×2 (15:30→21:29)
[2016-07-29] MEDS ORDERED: LISINOPRIL 10 MG TAB PO ONE (15:30)
--- NOTE | 2016-07-29 15:40 | CONS ---
Date/Time of Note Date/Time of Note DATE: 07/29/16 TIME: 15:38 Consult Date/Type/Reason Admit Date/Time Jul 26, 2016 at 01:55 Type of Consultation: pulm Subjective Notable BP elevation and high fevers today. Objective Vital Signs Date Time Temp Pulse Resp B/P Pulse Ox O2 Delivery O2 Flow Rate FiO2 07/29/16 14:40 94 175/72 07/29/16 13:50 28 100 3.0 07/29/16 12:45 103.0 Nasal Cannula Intake and Output 07/28/16 07/28/16 07/29/16 15:00 23:00 07:00 Intake Total 354 ml 1514 ml Output Total 4000 ml Balance 354 ml -2486 ml HEENT: Neck supple; no JVD; no LAD CVS: RRR, S1 and loud P2 CHEST: Bibasilar rales ABD: Soft, NT, + BS EXT: No c/c/ + edema Results/Medications Result Diagram: 07/29/16 0655 07/29/16 0655 Results 24 hrs Laboratory Tests Test 07/28/16 17:55 07/29/16 00:31 07/29/16 06:55 Activated Partial Thromboplast Time 85.6 *H 91.2 *H 63.4 H Alanine Aminotransferase (ALT/SGPT) 18 Albumin 3.0 L Albumin/Globulin Ratio 0.88 Alkaline Phosphatase 79 Anion Gap 12 Aspartate Amino Transf (AST/SGOT) 24 Basophils # 0.0 Basophils % 0.2 Blood Morphology Comment Blood Urea Nitrogen 19 Calcium Level 7.7 L Carbon Dioxide Level 33 H Chloride Level 96 L Creatinine 3.21 H Direct Bilirubin 0.00 Eosinophils # 0.0 Eosinophils % 0.5 Globulin 3.40 H Glucose Level 112 Hematocrit 32.4 L Hemoglobin 10.6 L INR International Normalized Ratio 2.24 Indirect Bilirubin 0.1 Lymphocytes # 0.5 L Lymphocytes % 7.8 L Mean Corpuscular Hemoglobin 32.4 Mean Corpuscular Hemoglobin Concent 32.8 Mean Corpuscular Volume 99.0 Mean Platelet Volume 6.3 L Monocytes # 0.8 Monocytes % 12.5 H Neutrophils # 4.9 Neutrophils % 79.0 H Nucleated Red Blood Cells # 0.0 Nucleated Red Blood Cells % 0.0 Platelet Count 148 Potassium Level 3.4 L Prothrombin Time 25.0 #H Prothrombin Time Ratio 2.0 Red Blood Count 3.27 L Red Cell Distribution Width 14.4 Sodium Level 138 Total Bilirubin 0.1 L Total Protein 6.4 White Blood Count 6.3 Medications Current Medications Acetaminophen (Tylenol Tab) 650 mg Q6H PRN PO PAIN1-3/FEVER ABOVE 100 Last administered on 07/29/16 13:38; Admin Dose 650 MG; Start 07/26/16 at 09:00 Clindamycin HCl (Cleocin) 150 mg QID PO Last administered on 07/29/16 08:36; Admin Dose 150 MG; Start 07/26/16 at 10:00 Duloxetine HCl (Cymbalta) 90 mg DAILY PO Last administered on 07/29/16 08:32 ; Admin Dose 90 MG; Start 07/26/16 at 10:00 Fluticasone Propionate (Flonase 0.05% Nasal) 1 spray BID NASAL Last administered on 07/29/16 08:37; Admin Dose 1 SPRAY; Start 07/26/16 at 10:00 Guaifenesin (Robitussin Liquid Cup) 100 mg Q4 PRN PO COUGH Last administered on 07/29/16 00:53; Admin Dose 100 MG; Start 07/26/16 at 09:00 Acetaminophen/ Hydrocodone Bitart ([place] (5/325)) 1 tab Q4 PRN PO WSOB Last administered on 07/29/16 00:50; Admin Dose 1 TAB; Start 07/26/16 at 09:00 Lactobacillus Acidoph/Bulgaricus (Floranex) 1 tab DAILY PO Last administered on 07/29/16 08:33; Admin Dose 1 TAB; Start 07/26/16 at 10:00 Lorazepam (Ativan) 1 mg Q6 PRN PO ANXIETY Last administered on 07/28/16 20:27 ; Admin Dose 1 MG; Start 07/26/16 at 09:00 Pantoprazole (Protonix Tab) 40 mg DAILY PO Last administered on 07/29/16 08: 32; Admin Dose 40 MG; Start 07/26/16 at 10:00 Polyethylene Glycol (Miralax) 17 gm DAILY PO Last administered on 07/29/16 08 :39; Admin Dose 17 GM; Start 07/26/16 at 09:00 Sildenafil Citrate (Revatio) 20 mg BID PO Last administered on 12/11/16at 08:33 ; Admin Dose 20 MG; Start 07/26/16 at 18:00 Epoetin [place] (Epogen (Esrd)) 10,000 units MoWeFr@17 SC Last administered on 07/27/16at 17:38; Admin Dose 10,000 UNITS; Start 07/27/16 at 17:00 Multivit/Ca Carb/ B Cmplx/FA/Prenat (Cheryl-Darcie) 1 tab DAILY PO Last administered on 07/29/16at 08:33; Admin Dose 1 TAB; Start 07/27/16 at 09:00 Warfarin Sodium (Coumadin) 5 mg DAILY@17 PO Last administered on 07/28/16at 18: 11; Admin Dose 5 MG; Start 07/28/16 at 17:00 Aspirin (Halfprin) 81 mg DAILY PO Last administered on 07/29/16at 08:32; Admin Dose 81 MG; Start 07/27/16 at 12:45 Hydralazine HCl (Apresoline) 10 mg Q6H PRN IV ELEVATED BLOOD PRESSURE Last administered on 07/29/16at 12:59; Admin Dose 10 MG; Start 07/29/16 at 13:00 Nitroglycerin 1 inch 1 inch Q6 TD ; Start 07/29/16 at 13:00 Vancomycin HCl 1.75 gm/Sodium Chloride 500 ml @ 125 mls/hr 15 ONCE IVPB ; Start 07/29/16 at 15:00; Stop 07/29/16 at 18:59 Aztreonam (Azactam 1gm/NS (Pmx)) 50 ml @ 100 mls/hr Q12 IVPB ; Start 07/29/16 at 15:30 Assessment/Plan Additional Assessment/Plan IMP: 1. Volume overload and congestive heart failure 2. End-stage renal disease on hemodialysis 3. Severe Pulm HTN: disproportionate to what would be expected from WHO Group II causes. 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 Upper Ext DVT RECS: 1. Anticoagulation 2. Will need V/Q to complete Pulm HTN w/u to r/o CTEPH 3. Aggressive UF 4. ABG now ASHLEY MOORE MD Jul 29, 2016 15:40
--- NOTE | 2016-07-29 16:33 | RADRPT ---
PROCEDURE: XR Chest. CLINICAL INDICATION: Fever TECHNIQUE: AP Portable chest. COMPARISON: 07/29/2016 chest x-ray 01:25 p.m. FINDINGS: The soft tissues and bones are normal. Low lung volumes are present with bibasilar discoid atelectas is. Mild cardiogenic pulmonary venous hypertension is present. No significant interval change is p resent when compared with prior chest x-ray . The mediastinum and heart are remarkable for mild car diomegaly. No pleural effusions or pneumothorax is present. IMPRESSION: 1. No significant interval change when compared with prior chest x-ray same date. 2. Low lung volumes with bibasilar discoid atelectasis and mild pulmonary venous hypertension. 3. Mild cardiomegaly RPTAT: HDC .Velma Weinberg MD, Date Time Electronically viewed and signed by .Velma Weinberg MD, on 07/29/2016 16:33 .C/
[2016-07-29] MEDS: WARFARIN 5 MG TAB PO SCH (17:00)
[2016-07-29] MEDS: LORAZEPAM 1 MG TAB PO PRN (17:37)
[2016-07-29 20:05] LABS: AADO2 Arterial 175.1 mmHg (7.0-24.0); Allen Test ACCEPTAB; Arterial COHb 0.7 % (0.0-3.0); Arterial Fraction of Oxyhgb 90.8 % (93.0-99.0); Arterial HCO3 28.6 mmol/L (22.0-26.0); Arterial MetHb 0 % (0.0-1.5); MODE NASAL CANNULA
--- NOTE | 2016-07-29 20:56 | CONS ---
Date/Time of Note Date/Time of Note DATE: 07/29/16 TIME: 20:28 Assessment/Plan Assessment/Plan Additional Assessment/Plan Assessment: * Fever x1 today. The patient has already been started on vancomycin IV and aztreonam, cultures were reportedly sent but they are not yet showing in the computer. The patient received HD today. It is possible that there has been some bacteremia. Another clot is considered less likely being on anticoagulation. There has been no loose stools reported. The patient denies any other systemic complaints to localize infection. The temperature seems very high for it to be secondary to atelectasis. The cxr is unchanged from prior, arguing against significant aspiration event. * Recent RUE cellulitis complicated by axillary/cephalic vv thrombosis * Pulmonary hypertension, presently undergoing evaluation for possible CTEPH * ESRD on HD * CHF with exacerbation still with volume overload * Penicillin allergy * Parkinson's * Chronic (x1 year) epigastric pain and tenderness Recommendations: 1. OK to continue vancomycin IV and aztreonam pending further culture data. 2. Procalcitonin 3. Follow-up on pending cultures. 4. The CTA of the chest will help to rule in or out a pneumonia Consultation Date/Type/Reason Admit Date/Time Jul 26, 2016 at 01:55 Date of Consultation: Jul 29, 2016 Type of Consultation: Infectious Diseases Reason for Consultation Fever Referring Provider: VALERIE CAMAREAN MD, [facility] Hx of Present Illness Patient is a 66y/o man with CHF, CAD, ESRD on HD, Parkinson's, PVD and a recent LUE cellulitis that was complicated by cephalic/axillary vv thrombosis for which he was asked to return to the ED. There he was started on anticoagulation but noted to be in respiratory failure due to volume overload leading to CHF exacerbation. This has been corrected mostly with HD, but it was noted that he continued to have significant symptomatic pulmonary hypertension and he is undergoing w/u for CTEPH. Today he developed a high fever to 103.4. Blood cultures were drawn and the patient was started on vancomycin IV and aztreonam empirically. He denies any new complaints and is complaining only of epigastric pain (present x1 year) and chest pain anteriorly which he states is not new. No loose stools, no myalgia, arthralgia, PATRICK, sore throat, URI sxs. Negative on a 14 point ROS except as noted in the HPI Eyes: no complaints ENT: no complaints Respiratory: no complaints Cardiovascular: no complaints Gastrointestinal: no complaints Genitourinary: no complaints Musculoskeletal: no complaints Skin: no complaints Neurologic: no complaints Endocrine: no complaints Psychological: nl mood/affect Past Medical History Medical History: congestive heart failure, coronary artery disease, deep vein thrombosis Past Surgical History Past Surgical Hx: angioplasty Social History Smoking Status: Former smoker Exam/Review of Systems Vital Signs Vitals Vital Signs Date Time Temp Pulse Resp B/P Pulse Ox O2 Delivery O2 Flow Rate FiO2 07/29/16 19:14 114 38 93 Nasal Cannula 3.0 07/29/16 16:57 98.6 173/70 Intake and Output 07/28/16 07/28/16 07/29/16 15:00 23:00 07:00 Intake Total 354 ml 1514 ml Output Total 4000 ml Balance 354 ml -2486 ml Exam Constitutional: alert, oriented, well developed Psych: nl mood/affect, no complaints Head: atraumatic, normocephalic Eyes: EOMI, PERRL, nl conjunctiva, nl lids, nl sclera ENMT: nl external ears & nose, nl nasal mucosa & septum, other (missing some teeth, mouth very dry, difficult to fully visualize due to Parkinson's) Neck: non-tender, supple Respiratory: clear to auscultation, normal air movement, other (tachypneic) Cardiovascular: nl pulses, other (regular by tachycardic) Gastrointestinal: bowel sounds, nl liver, spleen, soft, tender (epigastrium), No distended, No hepatomegaly, No mass, No rebound or guarding, No splenomegaly Genitourinary - Male: nl penis, nl scrotum Musculoskeletal: other (left BKA) Extremities: other (left hand digit amputation, LUE AVF without signs of infection) Neurological: other (Parkinsonian movements) Skin: nl turgor, No rash or lesions Lymph: nl lymph nodes Results Result Diagram: 07/29/1655 07/29/16 0655 Results 24 hrs Laboratory Tests Test 07/29/16 00:31 07/29/16 06:55 07/29/16 15:20 07/29/16 15:40 Activated Partial Thromboplast Time 91.2 *H 63.4 H > 180.0 *H Alanine Aminotransferase (ALT/SGPT) 18 Albumin 3.0 L Albumin/Globulin Ratio 0.88 Alkaline Phosphatase 79 Anion Gap 12 Aspartate Amino Transf (AST/SGOT) 24 Basophils # 0.0 Basophils % 0.2 Blood Morphology Comment Blood Urea Nitrogen 19 Calcium Level 7.7 L Carbon Dioxide Level 33 H Chloride Level 96 L Creatinine 3.21 H Direct Bilirubin 0.00 Eosinophils # 0.0 Eosinophils % 0.5 Globulin 3.40 H Glucose Level 112 Hematocrit 32.4 L Hemoglobin 10.6 L INR International Normalized Ratio 2.24 Indirect Bilirubin 0.1 Lymphocytes # 0.5 L Lymphocytes % 7.8 L Mean Corpuscular Hemoglobin 32.4 Mean Corpuscular Hemoglobin Concent 32.8 Mean Corpuscular Volume 99.0 Mean Platelet Volume 6.3 L Monocytes # 0.8 Monocytes % 12.5 H Neutrophils # 4.9 Neutrophils % 79.0 H Nucleated Red Blood Cells # 0.0 Nucleated Red Blood Cells % 0.0 Platelet Count 148 Potassium Level 3.4 L Prothrombin Time 25.0 #H Prothrombin Time Ratio 2.0 Red Blood Count 3.27 L Red Cell Distribution Width 14.4 Sodium Level 138 Total Bilirubin 0.1 L Total Protein 6.4 White Blood Count 6.3 Arterial Blood HCO3 28.6 H Arterial Blood Base Excess 5.0 H Arterial Blood Oxygen Saturation 91.4 L Jerod Test ACCEPTAB Arterial Blood Gas Puncture Site Right Radial Arterial Blood Carboxyhemoglobin 0.7 Arterial Blood Date Drawn 07/29/2016 7:52:51 PM Arterial Blood Methemoglobin 0 Arterial Blood pCO2 (Temp correct) 38.9 Arterial Blood pH (Temp corrected) 7.485 H Arterial Blood pO2 (Temp corrected) 58.1 L Blood Gas A-a O2 Differential 175.1 H Blood Gas Modality NASAL CANNULA Blood Gas Notified Time 07/29/2016 8:05:32 PM Blood Gas Notified Whom D Blood Gas Respiration Rate 30.0 Blood Gas Specimen Source Blood arterial Blood Gas Temperature 37.0 FiO2 39.0 Oxyhemoglobin Percent 90.8 L Total Hemoglobin 12.0 Medications Medications Current Medications Acetaminophen (Tylenol Tab) 650 mg Q6H PRN PO PAIN1-3/FEVER ABOVE 100 Last administered on 07/29/16at 13:38; Admin Dose 650 MG; Start 07/26/16 at 09:00 Clindamycin HCl (Cleocin) 150 mg QID PO Last administered on 07/29/16 16:57; Admin Dose 150 MG; Start 07/26/16 at 10:00 Duloxetine HCl (Cymbalta) 90 mg DAILY PO Last administered on 07/29/16 08:32 ; Admin Dose 90 MG; Start 07/26/16 at 10:00 Fluticasone Propionate (Flonase 0.05% Nasal) 1 spray BID NASAL Last administered on 07/29/16 08:37; Admin Dose 1 SPRAY; Start 07/26/16 at 10:00 Guaifenesin (Robitussin Liquid Cup) 100 mg Q4 PRN PO COUGH Last administered on 07/29/16 00:53; Admin Dose 100 MG; Start 07/26/16 at 09:00 Acetaminophen/ Hydrocodone Bitart ([place] (5/325)) 1 tab Q4 PRN PO WSOB Last administered on 07/29/16 18:52; Admin Dose 1 TAB; Start 07/26/16 at 09:00 Lactobacillus Acidoph/Bulgaricus (Floranex) 1 tab DAILY PO Last administered on 07/29/16 08:33; Admin Dose 1 TAB; Start 07/26/16 at 10:00 Lorazepam (Ativan) 1 mg Q6 PRN PO ANXIETY Last administered on 07/29/16 17:37 ; Admin Dose 1 MG; Start 07/26/16 at 09:00 Pantoprazole (Protonix Tab) 40 mg DAILY PO Last administered on 07/29/16 08: 32; Admin Dose 40 MG; Start 07/26/16 at 10:00 Polyethylene Glycol (Miralax) 17 gm DAILY PO Last administered on 07/29/16 08 :39; Admin Dose 17 GM; Start 07/26/16 at 09:00 Sildenafil Citrate (Revatio) 20 mg BID PO Last administered on 07/29/16 08:33 ; Admin Dose 20 MG; Start 07/26/16 at 18:00 Epoetin [place] (Epogen (Esrd)) 10,000 units MoWeFr@17 SC Last administered on 17:38; Admin Dose 10,000 UNITS; Start 07/27/16 at 17:00 Multivit/Ca Carb/ B Cmplx/FA/Prenat (Cheryl-Darcie) 1 tab DAILY PO Last administered on 07/29/16 08:33; Admin Dose 1 TAB; Start 07/27/16 at 09:00 Warfarin Sodium (Coumadin) 5 mg DAILY@17 PO Last administered on 07/28/16at 18: 11; Admin Dose 5 MG; Start 07/28/16 at 17:00; Status Future Hold Aspirin (Halfprin) 81 mg DAILY PO Last administered on 07/29/16 08:32; Admin Dose 81 MG; Start 07/27/16 at 12:45 Hydralazine HCl (Apresoline) 10 mg Q6H PRN IV ELEVATED BLOOD PRESSURE Last administered on 07/29/16at 12:59; Admin Dose 10 MG; Start 07/29/16 at 13:00 Nitroglycerin 1 inch 1 inch Q6 TD Last administered on 07/29/16 17:37; Admin Dose 1 INCH; Start 07/29/16 at 13:00 Aztreonam (Azactam 1gm/NS (Pmx)) 50 ml @ 100 mls/hr Q12 IVPB ; Start 07/29/16 at 15:30 LUKAS LUNA Jul 29, 2016 20:39
[2016-07-30] MEDS: ALBUTEROL 0.083% (NEB) 2.5 MG/3 ML AMP HHN SCH ×6 (00:44→20:04)
[2016-07-30 05:35] LABS: BASOPHILS % 0.3 % (0.0-2.0); HEMATOCRIT 31.6 % (42.0-52.0); HEMOGLOBIN 10.5 g/dl (14.0-18.0); LYMPHOCYTES # 0.4 10^3/ul (0.8-2.9); LYMPHOCYTES % 6.2 % (15.0-51.0); MEAN CORPUSCULAR HEMOGLOBIN 32.4 pg (29.0-33.0); MEAN CORPUSCULAR HGB CONC 33.1 g/dl (32.0-37.0); MEAN CORPUSCULAR VOLUME 97.9 fl (82.0-101.0); MEAN PLATELET VOLUME 6.8 fl (7.4-10.4); MONOCYTE # 0.9 10^3/ul (0.3-0.9); MONOCYTES % 13.4 % (0.0-11.0); NEUTROPHIL # 5.2 10^3/ul (1.6-7.5); NEUTROPHILS % 80.1 % (39.0-77.0); PLATELET COUNT 121 10^3/UL (140-440); RED BLOOD COUNT 3.23 10^6/ul (4.70-6.10); RED CELL DISTRIBUTION WIDTH 14.8 % (11.5-14.5); UNCORRECTED WBC 6.5 10^3/ul (4.8-10.8); WHITE BLOOD COUNT 6.5 10^3/ul (4.8-10.8)
[2016-07-30 05:37] VITALS: BP 122/56; PULSE 99
[2016-07-30] MEDS: NITROGLYCERIN 2% 1 GM OINT PKT TD SCH ×4 (05:37→17:33)
[2016-07-30 05:42] LABS: INR 2.34; PROTIME 25.9 Sec (12.2-14.2)
[2016-07-30 05:55] LABS: CONDITION 1; LH ANALYZER COMMENTS 1
[2016-07-30 06:13] LABS: ALBUMIN 3.2 g/dl (3.3-4.9); POTASSIUM 3.4 mmol/L (3.5-5.1)
[2016-07-30 06:16] LABS: ALBUMIN/GLOBULIN RATIO 0.86; BILIRUBIN,INDIRECT 0.1 mg/dl (0-1.1); BILIRUBIN,TOTAL 0.1 mg/dl (0.2-1.3); CALCIUM 8.2 mg/dl (8.4-10.2); CREATININE 2.83 mg/dl (0.61-1.24); TOTAL PROTEIN 6.9 g/dl (6.1-8.1)
[2016-07-30] MEDS: HYDROCODONE/APAP (5/325) TAB PO PRN ×2 (06:56→20:38)
[2016-07-30 08:00] VITALS: BP 112/55; PULSE 99; RESP 20
[2016-07-30] MEDS: SEVELAMER CARBONATE 0.8 GM PKT PO SCH ×3 (08:41→17:52)
[2016-07-30] MEDS: AZTREONAM 1 GM/NS (PMX) 50 ML IVPB SCH ×2 (08:42→20:38)
[2016-07-30] MEDS: FLUTICASONE 0.05% 16 GM NAS SPRAY NASAL SCH ×2 (08:42→20:38)
[2016-07-30] MEDS: CLINDAMYCIN 150 MG CAP PO SCH (08:43)
[2016-07-30] MEDS: DULOXETINE 30 MG CAP DR PO SCH (08:43)
[2016-07-30] MEDS: LACTOBACILLUS CHEW TAB PO SCH (08:43)
[2016-07-30] MEDS: ASPIRIN (EC) 81 MG TAB PO SCH (08:44)
[2016-07-30] MEDS: MULTIVIT/CA CARB/B CMPLX/FA TAB PO SCH (08:44)
[2016-07-30] MEDS: PANTOPRAZOLE (EC) 40 MG TAB PO SCH (08:44)
[2016-07-30] MEDS: LORAZEPAM 1 MG TAB PO PRN ×2 (08:45→20:38)
[2016-07-30] MEDS: SILDENAFIL 20 MG TAB PO SCH ×2 (08:45→20:48)
[2016-07-30] MEDS: POLYETHYLENE GLYCOL 17 GM PACKET PO SCH (08:50)
--- NOTE | 2016-07-30 10:05 | PN ---
DATE: SUBJECTIVE: The patient appears in his usual state of health. He did have a temperature reportedly up to 103 yesterday and empirically was begun on IV vancomycin and aztreonam. He currently has no fever. He denies any chest pain or shortness of breath. Laboratories this luis fernandon ing are notable for a white count of 6.5. PHYSICAL EXAMINATION: VITAL SIGNS: Temperature is 99.2, blood pressure is 122/60, heart rate 70 and regular, respirations 12 and unlabored, O2 saturation 98% on 3 liters. SKIN: No new rashes. He has resolved right upper extremity ecchymoses. HEAD: Normocephalic. EYES: Pupils are round and reactive. LUNGS: Show few rales at the bases which is his baseline. HEART: S1, S2, regular rate and rhythm. ABDOMEN: Soft and nontender. EXTREMITIES: Well-functioning left upper extremity AV fistula status post left BKA. LABORATORY DATA: White count 6.5, hemoglobin 10.5, hematocrit 31.6, platelet count 121,000. INR 2. 34. Sodium 140, potassium 3.4, chloride 96, bicarbonate 32, BUN 17, creatinine 2.83, calcium 8.2, t otal bilirubin 0.1, AST 28, ALT 20, alkaline phosphatase 73, total protein 6.9, albumin 3.2. Chest x-ray yesterday: No new infiltrates, mild cardiomegaly. PROBLEM LIST: 1. End-stage renal disease, being vigorously ultrafiltered with planned dialysis today. 2. Hypertension well controlled. 3. Patient now on Coumadin for unclear reasons. There has never been any documented acute right up per extremity DVT in this hospital. 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 4. Diabetes mellitus, controlled. 5. Hypoxemia, stable. 6. Fever currently on empiric antibiotics. RECOMMENDATIONS: 1. Dialysis has been ordered. 2. Continue antibiotics for now. 3. The patient is now on warfarin and aspirin as noted. Dictated By: MOSES GUAJARDO MD, MM/OLESYA Conf#: [id number] DID#: [id number]
--- NOTE | 2016-07-30 10:41 | RADRPT ---
PROCEDURE: CT Brain without contrast. CLINICAL INDICATION: Pain, headache TECHNIQUE: Routine CT scan of the brain was performed on a high resolution multi detector scanner without intravenous contrast. CTDI = 39, 37 mGy. DLP = 634 mGy-cm. COMPARISON: No prior relevant examinations are available for comparison. FINDINGS: Hemorrhage: No evidence of intracranial hemorrhage. Acute ischemic changes: No evidence of acute ischemic changes. Mass effect/Midline shift: None. Parenchymal volume: Mild central parenchymal volume loss is evident. Ventricular system: Concordant with parenchymal volume. Chronic changes: There are scattered areas of low attenuation change within the supratentorial white matter most compatible with moderate chronic microvascular ischemic changes. Atherosclerotic calcifications of the cavernous portions of both internal carotid arteries are prese nt. Extracranial soft tissues: Unremarkable. Calvarium: No fractures. Paranasal sinuses: Visualized paranasal sinuses are clear. Mastoid air cells: Visualized mastoid air cells are clear. IMPRESSION: Examination is degraded due to patient motion artifact. No evidence of focal hematoma, mass effect, or definite acute ischemic changes. Moderate chronic-appearing microvascular ischemic changes of the supratentorial white matter. RPTAT: AADD .Irving Jimenez MD, MD Date Time Electronically viewed and signed by .Irving Jimenez MD, on 07/30/2016 10:41 .B/
--- NOTE | 2016-07-30 11:02 | CONS ---
Date/Time of Note Date/Time of Note DATE: 07/30/16 TIME: 11:00 Assessment/Plan Assessment/Plan Additional Assessment/Plan assessment/impression - fever on 07/29/2016 - recent RUE cellulitis complicated by axillary/cephalic venous thrombosis - pain from the skin of posterior scalp: on physical exam, I did not detect evidence of cellulitis - ESRD on HD - CHF - PCN allergic - parkinson's recommendations: - await further microbiological data: blood and urine cultures - continue IV vancomycin and aztreonem empirically management d/w Pt Consultation Date/Type/Reason Admit Date/Time Jul 26, 2016 at 01:55 Initial Consult Date 07/29/16 Type of Consultation: ID Referring Provider: GRACIE KATHLEEN 24 HR Interval Summary Constitutional: no complaints Detailed Summary Eyes: no complaints ENT: no complaints Respiratory: no complaints Cardiovascular: no complaints Gastrointestinal: no complaints Genitourinary: no complaints Musculoskeletal: no complaints Skin: other (pain from the skin of posterior scalp) Neurologic: no complaints Exam/Review of Systems Vital Signs Vitals Vital Signs Date Time Temp Pulse Resp B/P Pulse Ox O2 Delivery O2 Flow Rate FiO2 07/30/16 08:00 Nasal Cannula 4.0 07/30/16 08:00 99.4 99 20 112/55 97 Intake and Output 07/29/16 07/29/16 07/30/16 15:00 23:00 07:00 Intake Total 742 ml 100 ml Output Total 4400 ml 0 ml Balance -3658 ml 100 ml Exam Constitutional: frail Psych: confusion Head: atraumatic, normocephalic, other (no erythema or fluctuance of posterior scalp) Eyes: nl conjunctiva, nl lids ENMT: nl external ears & nose, nl nasal mucosa & septum Neck: supple Respiratory: diminished breath sounds Cardiovascular: nl pulses, regular rate and rhythm Gastrointestinal: non-tender, soft Musculoskeletal: nl extremities to inspection Extremities: other (AVF in LUE) Results Result Diagram: 07/30/16 0433 07/30/16 0433 Results 24 hrs Laboratory Tests Test 07/29/16 15:20 07/29/16 15:40 07/30/16 04:33 Activated Partial Thromboplast Time > 180.0 *H Arterial Blood HCO3 28.6 H Arterial Blood Base Excess 5.0 H Arterial Blood Oxygen Saturation 91.4 L Jerod Test ACCEPTAB Arterial Blood Gas Puncture Site Right Radial Arterial Blood Carboxyhemoglobin 0.7 Arterial Blood Date Drawn 07/29/2016 7:52:51 PM Arterial Blood Methemoglobin 0 Arterial Blood pCO2 (Temp correct) 38.9 Arterial Blood pH (Temp corrected) 7.485 H Arterial Blood pO2 (Temp corrected) 58.1 L Blood Gas A-a O2 Differential 175.1 H Blood Gas Modality NASAL CANNULA Blood Gas Notified Time 07/29/2016 8:05:32 PM Blood Gas Notified Whom JMD Blood Gas Respiration Rate 30.0 Blood Gas Specimen Source Blood arterial Blood Gas Temperature 37.0 FiO2 39.0 Oxyhemoglobin Percent 90.8 L Total Hemoglobin 12.0 Alanine Aminotransferase (ALT/SGPT) 28 Albumin 3.2 L Albumin/Globulin Ratio 0.86 Alkaline Phosphatase 73 Anion Gap 15 Aspartate Amino Transf (AST/SGOT) 28 Basophils # 0.0 Basophils % 0.3 Blood Morphology Comment Blood Urea Nitrogen 17 Calcium Level 8.2 L Carbon Dioxide Level 32 H Chloride Level 96 L Creatinine 2.83 H Direct Bilirubin 0.00 Eosinophils # 0.0 Eosinophils % 0.0 Globulin 3.70 H Glucose Level 152 Hematocrit 31.6 L Hemoglobin 10.5 L INR International Normalized Ratio 2.34 Indirect Bilirubin 0.1 Lymphocytes # 0.4 L Lymphocytes % 6.2 L Mean Corpuscular Hemoglobin 32.4 Mean Corpuscular Hemoglobin Concent 33.1 Mean Corpuscular Volume 97.9 Mean Platelet Volume 6.8 L Monocytes # 0.9 Monocytes % 13.4 H Neutrophils # 5.2 Neutrophils % 80.1 H Nucleated Red Blood Cells # 0.0 Nucleated Red Blood Cells % 0.0 Platelet Count 121 L Potassium Level 3.4 L Prothrombin Time 25.9 H Prothrombin Time Ratio 2.0 Red Blood Count 3.23 L Red Cell Distribution Width 14.8 H Sodium Level 140 Total Bilirubin 0.1 L Total Protein 6.9 White Blood Count 6.5 Medications Medications Current Medications Acetaminophen (Tylenol Tab) 650 mg Q6H PRN PO PAIN1-3/FEVER ABOVE 100 Last administered on 07/29/16at 13:38; Admin Dose 650 MG; Start 07/26/16 at 09:00 Clindamycin HCl (Cleocin) 150 mg QID PO Last administered on 07/30/16at 08:43; Admin Dose 150 MG; Start 07/26/16 at 10:00 Duloxetine HCl (Cymbalta) 90 mg DAILY PO Last administered on 07/30/16 08:43 ; Admin Dose 90 MG; Start 07/26/16 at 10:00 Fluticasone Propionate (Flonase 0.05% Nasal) 1 spray BID NASAL Last administered on 07/30/16 08:42; Admin Dose 1 SPRAY; Start 07/26/16 at 10:00 Guaifenesin (Robitussin Liquid Cup) 100 mg Q4 PRN PO COUGH Last administered on 07/29/16 00:53; Admin Dose 100 MG; Start 07/26/16 at 09:00 Acetaminophen/ Hydrocodone Bitart ([place] (5/325)) 1 tab Q4 PRN PO WSOB Last administered on 07/30/16 06:56; Admin Dose 1 TAB; Start 07/26/16 at 09:00 Lactobacillus Acidoph/Bulgaricus (Floranex) 1 tab DAILY PO Last administered on 07/30/16 08:43; Admin Dose 1 TAB; Start 07/26/16 at 10:00 Lorazepam (Ativan) 1 mg Q6 PRN PO ANXIETY Last administered on 07/30/16 08:45 ; Admin Dose 1 MG; Start 07/26/16 at 09:00 Pantoprazole (Protonix Tab) 40 mg DAILY PO Last administered on 07/30/16 08: 44; Admin Dose 40 MG; Start 07/26/16 at 10:00 Polyethylene Glycol (Miralax) 17 gm DAILY PO Last administered on 07/29/16 08 :39; Admin Dose 17 GM; Start 07/26/16 at 09:00 Sildenafil Citrate (Revatio) 20 mg BID PO Last administered on 07/30/16 08:45 ; Admin Dose 20 MG; Start 07/26/16 at 18:00 Epoetin [place] (Epogen (Esrd)) 10,000 units MoWeFr@17 SC Last administered on 17:38; Admin Dose 10,000 UNITS; Start 07/27/16 at 17:00 Multivit/Ca Carb/ B Cmplx/FA/Prenat (Cherly-Darcie) 1 tab DAILY PO Last administered on 07/30/16 08:44; Admin Dose 1 TAB; Start 07/27/16 at 09:00 Warfarin Sodium (Coumadin) 5 mg DAILY@17 PO Last administered on 07/28/16at 18: 11; Admin Dose 5 MG; Start 07/28/16 at 17:00; Status Future Hold Aspirin (Halfprin) 81 mg DAILY PO Last administered on 07/30/16at 08:44; Admin Dose 81 MG; Start 07/27/16 at 12:45 Hydralazine HCl (Apresoline) 10 mg Q6H PRN IV ELEVATED BLOOD PRESSURE Last administered on 07/29/16at 12:59; Admin Dose 10 MG; Start 07/29/16 at 13:00 Nitroglycerin 1 inch 1 inch Q6 TD Last administered on 07/30/16at 05:37; Admin Dose 1 INCH; Start 07/29/16 at 13:00 Aztreonam (Azactam 1gm/NS (Pmx)) 50 ml @ 100 mls/hr Q12 IVPB Last administered on 07/30/16at 08:42; Admin Dose 100 MLS/HR; Start 07/29/16 at 15: 30 Miscellaneous Information (*Rx Drug Level Order Reminder*) RANDOM VANCOMYCIN LEVEL ... ONCE ONCE XX ; Start 07/31/16 at 05:00; Stop 07/31/16 at 05:01 SADIA LONDON M.D. Jul 30, 2016 11:02
[2016-07-30 12:14] VITALS: BP 90/52; PULSE 86; RESP 20
--- NOTE | 2016-07-30 14:42 | RADRPT ---
Vent Rate: 102 bpm RR Interval: 0 msec AR Interval: 148 msec QRS Duration: 140 msec QT Interval: 380 msec QTC Interval: 495 msec P-R-T [place]: 11 - 0 - 7 degrees Sinus tachycardia Right bundle branch block , plus right ventricular hypertrophy Anterolateral infarct , age undetermined Abnormal ECG Electronically Signed By: Solo Leon [id number]
--- NOTE | 2016-07-30 15:13 | PN ---
Date/Time of Note Date/Time of Note DATE: 07/30/16 TIME: 15:06 Assessment/Plan VTE Prophylaxis VTE Prophylaxis Intervention: heparin Lines/Catheters IV [facility] [place] [facility] Urinary Cath still in place: No Assessment/Plan Chief Complaint/Hosp Course 1. Partial right internal jugular DVT. Continue heparin drip per protocol. Continue Coumadin. Continue daily PT PTT. 2. End-stage renal disease hemodialysis dependent. Dr. Bassett is following in nephrology consultation 3. Diastolic congestive heart failure. Continue to remove fluid was hemodialysis. 4. Pulmonary edema, improved. 5. Coronary artery disease with history of PCI. 6. Depression. Continue Cymbalta 7. History of left hip fracture, treated conservatively. 8. Osteoporosis. 9. Pulmonary hypertension. Continue sildenafil. 10. Fever over the weekend, Dr. Reardon is following from infectious disease consultation, started on empiric antibiotics, follow up on cultures. Continue heparin for deep venous thrombosis prophylaxis and Protonix for peptic ulcer disease prophylaxis Further recommendations based on clinical course. Plan of care discussed with Dr. Miramontes. Problems: Subjective 24 Hr Interval Summary Free Text/Dictation Patient is comfortable and supplemental oxygen, no nausea vomiting no fever, status post hemodialysis today. Exam/Review of Systems Vital Signs Vitals Vital Signs Date Time Temp Pulse Resp B/P Pulse Ox O2 Delivery O2 Flow Rate FiO2 07/30/16 14:02 88 32 97 Nasal Cannula 3.0 07/30/16 12:14 97.8 90/52 Intake and Output 07/29/16 07/29/16 07/30/16 15:00 23:00 07:00 Intake Total 742 ml 100 ml Output Total 4400 ml 0 ml Balance -3658 ml 100 ml Exam GENERAL: This is a well-developed, well-nourished male who currently is awake, alert on supplemental oxygen. HEENT: Head is atraumatic, normocephalic. Pupils equal, round, reactive to light and accommodation. NECK: Supple, no cervical lymphadenopathy. R IJ TLC. CHEST: The patient with diminished air entry into the lungs. CARDIOVASCULAR: Normal S1, S2. No murmurs, gallops, clicks, rubs noted. ABDOMEN: Round, soft, nondistended, nontender. Bowel sounds present. There is no guarding, no rebound tenderness. EXTREMITIES: Left upper extremity with arteriovenous fistula with palpable thrill and audible bruit. The patient is status post left BKA. Right lower extremity with mild edema, present pulse. SKIN: There is no rash, petechiae noted. NEUROLOGIC: The patient is awake, alert and oriented to name and situation. Results Result Diagram: 07/30/16 0433 07/30/16 0433 Results 24 hrs Laboratory Tests Test 07/29/16 15:20 07/29/16 15:40 07/30/16 04:33 Activated Partial Thromboplast Time > 180.0 *H Arterial Blood HCO3 28.6 H Arterial Blood Base Excess 5.0 H Arterial Blood Oxygen Saturation 91.4 L Jerod Test ACCEPTAB Arterial Blood Gas Puncture Site Right Radial Arterial Blood Carboxyhemoglobin 0.7 Arterial Blood Date Drawn 07/29/2016 7:52:51 PM Arterial Blood Methemoglobin 0 Arterial Blood pCO2 (Temp correct) 38.9 Arterial Blood pH (Temp corrected) 7.485 H Arterial Blood pO2 (Temp corrected) 58.1 L Blood Gas A-a O2 Differential 175.1 H Blood Gas Modality NASAL CANNULA Blood Gas Notified Time 07/29/2016 8:05:32 PM Blood Gas Notified Whom JIMENEZD Blood Gas Respiration Rate 30.0 Blood Gas Specimen Source Blood arterial Blood Gas Temperature 37.0 FiO2 39.0 Oxyhemoglobin Percent 90.8 L Total Hemoglobin 12.0 Alanine Aminotransferase (ALT/SGPT) 28 Albumin 3.2 L Albumin/Globulin Ratio 0.86 Alkaline Phosphatase 73 Anion Gap 15 Aspartate Amino Transf (AST/SGOT) 28 Basophils # 0.0 Basophils % 0.3 Blood Morphology Comment Blood Urea Nitrogen 17 Calcium Level 8.2 L Carbon Dioxide Level 32 H Chloride Level 96 L Creatinine 2.83 H Direct Bilirubin 0.00 Eosinophils # 0.0 Eosinophils % 0.0 Globulin 3.70 H Glucose Level 152 Hematocrit 31.6 L Hemoglobin 10.5 L INR International Normalized Ratio 2.34 Indirect Bilirubin 0.1 Lymphocytes # 0.4 L Lymphocytes % 6.2 L Mean Corpuscular Hemoglobin 32.4 Mean Corpuscular Hemoglobin Concent 33.1 Mean Corpuscular Volume 97.9 Mean Platelet Volume 6.8 L Monocytes # 0.9 Monocytes % 13.4 H Neutrophils # 5.2 Neutrophils % 80.1 H Nucleated Red Blood Cells # 0.0 Nucleated Red Blood Cells % 0.0 Platelet Count 121 L Potassium Level 3.4 L Prothrombin Time 25.9 H Prothrombin Time Ratio 2.0 Red Blood Count 3.23 L Red Cell Distribution Width 14.8 H Sodium Level 140 Total Bilirubin 0.1 L Total Protein 6.9 White Blood Count 6.5 Medications Medications Current Medications Acetaminophen (Tylenol Tab) 650 mg Q6H PRN PO PAIN1-3/FEVER ABOVE 100 Last administered on 07/29/16 13:38; Admin Dose 650 MG; Start 07/26/16 at 09:00 Duloxetine HCl (Cymbalta) 90 mg DAILY PO Last administered on 07/30/16 08:43 ; Admin Dose 90 MG; Start 07/26/16 at 10:00 Fluticasone Propionate (Flonase 0.05% Nasal) 1 spray BID NASAL Last administered on 07/30/16 08:42; Admin Dose 1 SPRAY; Start 07/26/16 at 10:00 Guaifenesin (Robitussin Liquid Cup) 100 mg Q4 PRN PO COUGH Last administered on 07/29/16 00:53; Admin Dose 100 MG; Start 07/26/16 at 09:00 Acetaminophen/ Hydrocodone Bitart ([place] (5/325)) 1 tab Q4 PRN PO WSOB Last administered on 07/30/16 06:56; Admin Dose 1 TAB; Start 07/26/16 at 09:00 Lactobacillus Acidoph/Bulgaricus (Floranex) 1 tab DAILY PO Last administered on 07/30/16 08:43; Admin Dose 1 TAB; Start 07/26/16 at 10:00 Lorazepam (Ativan) 1 mg Q6 PRN PO ANXIETY Last administered on 07/30/16 08:45 ; Admin Dose 1 MG; Start 07/26/16 at 09:00 Pantoprazole (Protonix Tab) 40 mg DAILY PO Last administered on 07/30/16 08: 44; Admin Dose 40 MG; Start 07/26/16 at 10:00 Polyethylene Glycol (Miralax) 17 gm DAILY PO Last administered on 07/29/16 08 :39; Admin Dose 17 GM; Start 07/26/16 at 09:00 Sildenafil Citrate (Revatio) 20 mg BID PO Last administered on 07/30/16 08:45 ; Admin Dose 20 MG; Start 07/26/16 at 18:00 Epoetin [place] (Epogen (Esrd)) 10,000 units MoWeFr@17 SC Last administered on 07/27/16at 17:38; Admin Dose 10,000 UNITS; Start 07/27/16 at 17:00 Multivit/Ca Carb/ B Cmplx/FA/Prenat (Cheryl-Darcie) 1 tab DAILY PO Last administered on 07/30/16at 08:44; Admin Dose 1 TAB; Start 07/27/16 at 09:00 Warfarin Sodium (Coumadin) 5 mg DAILY@17 PO Last administered on 07/28/16at 18: 11; Admin Dose 5 MG; Start 07/28/16 at 17:00; Status Future Hold Aspirin (Halfprin) 81 mg DAILY PO Last administered on 07/30/16at 08:44; Admin Dose 81 MG; Start 07/27/16 at 12:45 Hydralazine HCl (Apresoline) 10 mg Q6H PRN IV ELEVATED BLOOD PRESSURE Last administered on 07/29/16at 12:59; Admin Dose 10 MG; Start 07/29/16 at 13:00 Nitroglycerin 1 inch 1 inch Q6 TD Last administered on 07/30/16at 05:37; Admin Dose 1 INCH; Start 07/29/16 at 13:00 Aztreonam (Azactam 1gm/NS (Pmx)) 50 ml @ 100 mls/hr Q12 IVPB Last administered on 07/30/16at 08:42; Admin Dose 100 MLS/HR; Start 07/29/16 at 15: 30 Miscellaneous Information (*Rx Drug Level Order Reminder*) RANDOM VANCOMYCIN LEVEL ... ONCE ONCE XX ; Start 07/31/16 at 05:00; Stop 07/31/16 at 05:01 MARY DOMINGUEZ Jul 30, 2016 15:13
[2016-07-30] MEDS: EPOETIN 10000 UNITS/1 ML INJ (ESRD) SC SCH (17:52)
[2016-07-30 23:00] VITALS: BP_SYST 136; BP_SYST 139; BP_DIAS 61; PULSE 86
[2016-07-30 23:15] VITALS: BP 148/66; PULSE 87
[2016-07-30 23:30] VITALS: BP 113/52; PULSE 88
[2016-07-30] MEDS: ALBUMIN HUMAN 25% 100 ML IV PRN (23:55)
[2016-07-31] VITALS (27 sets, daily range): BP systolic 53–183; BP diastolic 30–99; PULSE 70–115; RESP 15–35
[2016-07-31] MEDS: ALBUMIN HUMAN 25% 100 ML IV PRN ×3 (00:32→23:16)
[2016-07-31] MEDS: ALBUTEROL 0.083% (NEB) 2.5 MG/3 ML AMP HHN SCH ×6 (00:52→20:00)
[2016-07-31 05:24] LABS: INR 2.39; PROTIME 26.4 Sec (12.2-14.2); PT RATIO 2.1
[2016-07-31 05:26] LABS: BASOPHILS % 0.2 % (0.0-2.0); EOSINOPHILS % 0.2 % (0.0-7.0); HEMATOCRIT 29.4 % (42.0-52.0); HEMOGLOBIN 9.7 g/dl (14.0-18.0); LYMPHOCYTES # 0.6 10^3/ul (0.8-2.9); LYMPHOCYTES % 9.7 % (15.0-51.0); MEAN CORPUSCULAR HEMOGLOBIN 32.2 pg (29.0-33.0); MEAN CORPUSCULAR HGB CONC 32.9 g/dl (32.0-37.0); MEAN CORPUSCULAR VOLUME 97.9 fl (82.0-101.0); MEAN PLATELET VOLUME 7.3 fl (7.4-10.4); MONOCYTE # 0.7 10^3/ul (0.3-0.9); MONOCYTES % 12.1 % (0.0-11.0); NEUTROPHIL # 4.6 10^3/ul (1.6-7.5); NEUTROPHILS % 77.8 % (39.0-77.0); PLATELET COUNT 123 10^3/UL (140-440); RED CELL DISTRIBUTION WIDTH 14.6 % (11.5-14.5); UNCORRECTED WBC 5.9 10^3/ul (4.8-10.8); WHITE BLOOD COUNT 5.9 10^3/ul (4.8-10.8)
[2016-07-31 05:29] LABS: POTASSIUM 3.2 mmol/L (3.5-5.1)
[2016-07-31 05:30] LABS: CONDITION 1; LH ANALYZER COMMENTS 1
[2016-07-31 05:32] LABS: CREATININE 1.89 mg/dl (0.61-1.24)
[2016-07-31 05:33] LABS: CALCIUM 8.4 mg/dl (8.4-10.2)
[2016-07-31] MEDS: NITROGLYCERIN 2% 1 GM OINT PKT TD SCH ×4 (05:47→12:38)
[2016-07-31] MEDS: LORAZEPAM 1 MG TAB PO PRN ×2 (05:47→14:18)
[2016-07-31] MEDS: HYDROCODONE/APAP (5/325) TAB PO PRN ×2 (05:47→15:01)
[2016-07-31] MEDS ORDERED: ETOMIDATE 20 MG INJ ONE (07:00)
[2016-07-31] MEDS ORDERED: ROCURONIUM 50 MG INJ ONE (07:00)
[2016-07-31] MEDS ORDERED: POTASSIUM CHLORIDE (SR) 20 MEQ TAB PO STA (07:47)
[2016-07-31] MEDS: SILDENAFIL 20 MG TAB PO SCH ×2 (08:17→21:00)
[2016-07-31] MEDS: DULOXETINE 30 MG CAP DR PO SCH (09:00)
[2016-07-31] MEDS: LACTOBACILLUS CHEW TAB PO SCH (09:01)
[2016-07-31] MEDS: PANTOPRAZOLE (EC) 40 MG TAB PO SCH (09:01)
[2016-07-31] MEDS: MULTIVIT/CA CARB/B CMPLX/FA TAB PO SCH (09:01)
[2016-07-31] MEDS: SEVELAMER CARBONATE 0.8 GM PKT PO SCH ×3 (09:01→18:00)
[2016-07-31] MEDS: FLUTICASONE 0.05% 16 GM NAS SPRAY NASAL SCH ×2 (09:01→21:00)
[2016-07-31] MEDS: POLYETHYLENE GLYCOL 17 GM PACKET PO SCH (09:01)
[2016-07-31] MEDS: ASPIRIN (EC) 81 MG TAB PO SCH (09:01)
[2016-07-31] MEDS: AZTREONAM 0.5 GM in SOD CHLORIDE 0.9% 50 ML IV SCH ×2 (09:02→22:08)
[2016-07-31] MEDS ORDERED: VANCOMYCIN 1 GM in NS 250 ML IVPB ONE (10:00)
--- NOTE | 2016-07-31 10:32 | CONS ---
DATE OF ADMISSION: 07/26/2016 DATE OF CONSULTATION: HISTORY OF PRESENT ILLNESS: The patient is lying in bed, comfortable, in no acute distress. There have been no new events. PHYSICAL EXAMINATION: VITAL SIGNS: He is afebrile. Blood pressure is 100/50, heart rate is 80 in a sinus rhythm, respira tions are 12 and unlabored, O2 saturation is 96% on 3 liters. SKIN: No new rashes. His right shoulder ecchymoses has resolved. HEAD: Normocephalic, atraumatic. EYES: Pupils are round and reactive. LUNGS: Clear. No wheezes or rales. HEART: S1, S2, regular rate and rhythm. ABDOMEN: Soft. EXTREMITIES: Functioning AV fistula in the left upper extremity. He is status post left BKA. LABORATORY DATA: White count again normal at 5.9, hemoglobin 9.7, hematocrit 29.4, platelet count 1 23,000. INR is 2.39, potassium is 3.2 (he had dialysis yesterday. Vancomycin level is 7.8. Blood cultures are negative at 24 hours. PROBLEM LIST: 1. End-stage renal disease. Tolerated dialysis yesterday. 2. Hypertension, currently inactive. 3. Noninsulin dependent diabetes mellitus, diet controlled. 4. History of congestive heart failure, currently resolved. 5. Chronic obstructive pulmonary disease. 6. Recent fever on empiric antibiotics. Cultures currently negative. 7. 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 RECOMMENDATIONS: 1. The patient is stable and at his baseline. 2. We will plan dialysis tomorrow while he is here in the hospital. 3. Continue current medications. Dictated By: MOSES GUAJARDO MD, MM/OLESYA Conf#: [id number] DID#: [id number]
--- NOTE | 2016-07-31 13:35 | CONS ---
Date/Time of Note Date/Time of Note DATE: 07/31/16 TIME: 13:30 Assessment/Plan Assessment/Plan Additional Assessment/Plan Partial right internal jugular DVT Diastolic congestive heart failure End-stage renal disease on hemodialysis CAD with history of PCI Diabetes Peripheral arterial disease with history of amputation Pulmonary hypertension -Blood pressure has been on the lower side, would DC patient's nitroglycerin ointment, if blood pressure tolerates once nitroglycerin is off, start beta shivani, Coumadin as per INR Consultation Date/Type/Reason Admit Date/Time Jul 26, 2016 at 01:55 Type of Consultation: cv Referring Provider: GRACIE KATHLEEN 24 HR Interval Summary Free Text/Dictation Denies shortness of breath, chest pain, palpitations Exam/Review of Systems Vital Signs Vitals Vital Signs Date Time Temp Pulse Resp B/P Pulse Ox O2 Delivery O2 Flow Rate FiO2 07/31/16 12:00 96 25 92 Nasal Cannula 2.0 07/31/16 08:17 98.6 106/55 Intake and Output 07/30/16 07/30/16 07/31/16 15:00 23:00 07:00 Intake Total 620 ml 1150 ml Output Total 3100 ml Balance 620 ml -1950 ml Exam No apparent distress Constitutional: alert, oriented Head: normocephalic Respiratory: other (course breath sounds bilaterally, no wheezing) Cardiovascular: other (S1 and S2 heard), regular rate and rhythm Gastrointestinal: bowel sounds, non-tender, soft Extremities: other (trace edema) Results Result Diagram: 07/31/16 0428 07/31/16 0428 Results 24 hrs Laboratory Tests Test 07/31/16 04:28 Anion Gap 16 Basophils # 0.0 Basophils % 0.2 Blood Morphology Comment Blood Urea Nitrogen 13 Calcium Level 8.4 Carbon Dioxide Level 30 Chloride Level 97 Creatinine 1.89 H Eosinophils # 0.0 Eosinophils % 0.2 Glucose Level 113 Hematocrit 29.4 L Hemoglobin 9.7 L INR International Normalized Ratio 2.39 Lymphocytes # 0.6 L Lymphocytes % 9.7 L Mean Corpuscular Hemoglobin 32.2 Mean Corpuscular Hemoglobin Concent 32.9 Mean Corpuscular Volume 97.9 Mean Platelet Volume 7.3 L Monocytes # 0.7 Monocytes % 12.1 H Neutrophils # 4.6 Neutrophils % 77.8 H Nucleated Red Blood Cells # 0.0 Nucleated Red Blood Cells % 0.0 Platelet Count 123 L Potassium Level 3.2 L Prothrombin Time 26.4 H Prothrombin Time Ratio 2.1 Random Vancomycin Level 7.8 Red Blood Count 3.00 L Red Cell Distribution Width 14.6 H Sodium Level 140 White Blood Count 5.9 Medications Medications Current Medications Acetaminophen (Tylenol Tab) 650 mg Q6H PRN PO PAIN1-3/FEVER ABOVE 100 Last administered on 07/29/16 13:38; Admin Dose 650 MG; Start 07/26/16 at 09:00 Duloxetine HCl (Cymbalta) 90 mg DAILY PO Last administered on 07/31/16 09:00 ; Admin Dose 90 MG; Start 07/26/16 at 10:00 Fluticasone Propionate (Flonase 0.05% Nasal) 1 spray BID NASAL Last administered on 07/31/16 09:01; Admin Dose 1 SPRAY; Start 07/26/16 at 10:00 Guaifenesin (Robitussin Liquid Cup) 100 mg Q4 PRN PO COUGH Last administered on 07/29/16 00:53; Admin Dose 100 MG; Start 07/26/16 at 09:00 Acetaminophen/ Hydrocodone Bitart ([place] (5/325)) 1 tab Q4 PRN PO WSOB Last administered on 07/31/16 05:47; Admin Dose 1 TAB; Start 07/26/16 at 09:00 Lactobacillus Acidoph/Bulgaricus (Floranex) 1 tab DAILY PO Last administered on 07/31/16 09:01; Admin Dose 1 TAB; Start 07/26/16 at 10:00 Lorazepam (Ativan) 1 mg Q6 PRN PO ANXIETY Last administered on 07/31/16 05:47 ; Admin Dose 1 MG; Start 07/26/16 at 09:00 Pantoprazole (Protonix Tab) 40 mg DAILY PO Last administered on 07/31/16 09: 01; Admin Dose 40 MG; Start 07/26/16 at 10:00 Polyethylene Glycol (Miralax) 17 gm DAILY PO Last administered on 07/31/16 09 :01; Admin Dose 17 GM; Start 07/26/16 at 09:00 Sildenafil Citrate (Revatio) 20 mg BID PO Last administered on 07/30/16 08:45 ; Admin Dose 20 MG; Start 07/26/16 at 18:00 Epoetin [place] (Epogen (Esrd)) 10,000 units MoWeFr@17 SC Last administered on 17:52; Admin Dose 10,000 UNITS; Start 07/27/16 at 17:00 Multivit/Ca Carb/ B Cmplx/FA/Prenat (Cheryl-Darcie) 1 tab DAILY PO Last administered on 07/31/16 09:01; Admin Dose 1 TAB; Start 07/27/16 at 09:00 Aspirin (Halfprin) 81 mg DAILY PO Last administered on 07/31/16at 09:01; Admin Dose 81 MG; Start 07/27/16 at 12:45 Hydralazine HCl (Apresoline) 10 mg Q6H PRN IV ELEVATED BLOOD PRESSURE Last administered on 07/29/16 12:59; Admin Dose 10 MG; Start 07/29/16 at 13:00 Nitroglycerin 1 inch 1 inch Q6 TD Last administered on 07/31/16at 12:38; Admin Dose 1 INCH; Start 07/29/16 at 13:00 Aztreonam/Sodium Chloride (Azactam/NS) 50 ml @ 100 mls/hr Q12 IV Last administered on 07/31/16 09:02; Admin Dose 100 MLS/HR; Start 07/31/16 at 09: 30 Warfarin Sodium (Coumadin) 2 mg DAILY@17 PO ; Start 07/31/16 at 17:00 Solo Leon DO Jul 31, 2016 13:35
--- NOTE | 2016-07-31 14:57 | RADRPT ---
PROCEDURE: XR Chest. CLINICAL INDICATION: Dyspnea TECHNIQUE: Single frontal chest x-ray. COMPARISON: 07/29/2016 FINDINGS: Dense infiltration is seen within the right lower lung, worse when compared to the previous study. Superimposed right basilar pleural effusion is not excluded. Significant increased vascular congest ion and volume overload is identified throughout the lungs bilaterally. Overall lung volumes are di minished. The heart size is enlarged. Mediastinal silhouette is unremarkable. There is no pneumot horax. The surrounding osseous structures are unremarkable. IMPRESSION: 1. Diminished lung volumes compressive changes, severe in degree and stable over time. 2. Dense consolidation within the right lower lung, worse when compared to the prior study. Superi mposed pleural effusion is not excluded. 3. Cardiomegaly with increased atherosclerotic vascular calcifications. RPTAT: AAJJ .Errol oNrton MD, MD Date Time Electronically viewed and signed by .Errol Norton MD, on 07/31/2016 14:54 .B/
--- NOTE | 2016-07-31 15:44 | CONS ---
Date/Time of Note Date/Time of Note DATE: 07/31/16 TIME: 15:42 Assessment/Plan Assessment/Plan Chief Complaint/Hosp Course assessment/impression - fever on 07/29/2016 - recent RUE cellulitis complicated by axillary/cephalic venous thrombosis - pain from the skin of posterior scalp: on physical exam, I did not detect evidence of cellulitis - ESRD on HD - Diastolic CHF - CAD with Hx PCI - Pulmonary HTN - coagulopathy d/t warfarin - PAD with Hx Left BKA - PCN allergic - parkinson's recommendations: - f/u final microbiological data: blood cx negative to date. Urine culture N/A (pt likely anuric per RN as straight cath had been ordered) - continue IV vancomycin and aztreonem (07/29/16-) empirically - management d/w Pt and pt's RN - Above d/w Dr. Hammer Problems: Consultation Date/Type/Reason Admit Date/Time Jul 26, 2016 at 01:55 Initial Consult Date 07/29/16 Type of Consultation: Infectious Disease Reason for Consultation Antibiotic management Referring Provider: GRACIE KATHLEEN 24 HR Interval Summary Free Text/Dictation Remains confused per RN Ircia and recent CXR done. Pt c/o SOB and mild CP. Exam/Review of Systems Vital Signs Vitals Vital Signs Date Time Temp Pulse Resp B/P Pulse Ox O2 Delivery O2 Flow Rate FiO2 07/31/16 12:00 96 25 92 Nasal Cannula 2.0 07/31/16 08:17 98.6 106/55 Intake and Output 07/30/16 07/30/16 07/31/16 15:00 23:00 07:00 Intake Total 620 ml 1150 ml Output Total 3100 ml Balance 620 ml -1950 ml Exam Constitutional: alert, frail, oriented (to self) Psych: confusion Head: atraumatic, normocephalic Neck: supple, No bruits Respiratory: congested cough, other (course breath sounds bilaterally.), No wheezing Cardiovascular: regular rate and rhythm Gastrointestinal: soft Extremities: edema (trace on RLE), other (LLE BKA noted. LUE AVF with + bruit/ thrill) Neurological: confused Skin: ecchymosis (few scattered), nl turgor, other (Right hand index finger HL c/d/i) Results Result Diagram: 07/31/16 0428 07/31/16 0428 Results 24 hrs Laboratory Tests Test 07/31/16 04:28 Anion Gap 16 Basophils # 0.0 Basophils % 0.2 Blood Morphology Comment Blood Urea Nitrogen 13 Calcium Level 8.4 Carbon Dioxide Level 30 Chloride Level 97 Creatinine 1.89 H Eosinophils # 0.0 Eosinophils % 0.2 Glucose Level 113 Hematocrit 29.4 L Hemoglobin 9.7 L INR International Normalized Ratio 2.39 Lymphocytes # 0.6 L Lymphocytes % 9.7 L Mean Corpuscular Hemoglobin 32.2 Mean Corpuscular Hemoglobin Concent 32.9 Mean Corpuscular Volume 97.9 Mean Platelet Volume 7.3 L Monocytes # 0.7 Monocytes % 12.1 H Neutrophils # 4.6 Neutrophils % 77.8 H Nucleated Red Blood Cells # 0.0 Nucleated Red Blood Cells % 0.0 Platelet Count 123 L Potassium Level 3.2 L Prothrombin Time 26.4 H Prothrombin Time Ratio 2.1 Random Vancomycin Level 7.8 Red Blood Count 3.00 L Red Cell Distribution Width 14.6 H Sodium Level 140 White Blood Count 5.9 Medications Medications Current Medications Acetaminophen (Tylenol Tab) 650 mg Q6H PRN PO PAIN1-3/FEVER ABOVE 100 Last administered on 07/29/16 13:38; Admin Dose 650 MG; Start 07/26/16 at 09:00 Duloxetine HCl (Cymbalta) 90 mg DAILY PO Last administered on 07/31/16 09:00 ; Admin Dose 90 MG; Start 07/26/16 at 10:00 Fluticasone Propionate (Flonase 0.05% Nasal) 1 spray BID NASAL Last administered on 07/31/16 09:01; Admin Dose 1 SPRAY; Start 07/26/16 at 10:00 Guaifenesin (Robitussin Liquid Cup) 100 mg Q4 PRN PO COUGH Last administered on 07/29/16 00:53; Admin Dose 100 MG; Start 07/26/16 at 09:00 Acetaminophen/ Hydrocodone Bitart ([place] (5/325)) 1 tab Q4 PRN PO WSOB Last administered on 07/31/16 15:01; Admin Dose 1 TAB; Start 07/26/16 at 09:00 Lactobacillus Acidoph/Bulgaricus (Floranex) 1 tab DAILY PO Last administered on 07/31/16 09:01; Admin Dose 1 TAB; Start 07/26/16 at 10:00 Lorazepam (Ativan) 1 mg Q6 PRN PO ANXIETY Last administered on 07/31/16 14:18 ; Admin Dose 1 MG; Start 07/26/16 at 09:00 Pantoprazole (Protonix Tab) 40 mg DAILY PO Last administered on 07/31/16 09: 01; Admin Dose 40 MG; Start 07/26/16 at 10:00 Polyethylene Glycol (Miralax) 17 gm DAILY PO Last administered on 07/31/16 09 :01; Admin Dose 17 GM; Start 07/26/16 at 09:00 Sildenafil Citrate (Revatio) 20 mg BID PO Last administered on 07/30/16 08:45 ; Admin Dose 20 MG; Start 07/26/16 at 18:00 Epoetin [place] (Epogen (Esrd)) 10,000 units MoWeFr@17 SC Last administered on 17:52; Admin Dose 10,000 UNITS; Start 07/27/16 at 17:00 Multivit/Ca Carb/ B Cmplx/FA/Prenat (Cheryl-Darcie) 1 tab DAILY PO Last administered on 07/31/16 09:01; Admin Dose 1 TAB; Start 07/27/16 at 09:00 Aspirin (Halfprin) 81 mg DAILY PO Last administered on 07/31/16 09:01; Admin Dose 81 MG; Start 07/27/16 at 12:45 Hydralazine HCl 10 mg 10 mg Q6H PRN IV ELEVATED BLOOD PRESSURE Last administered on 07/29/16at 12:59; Admin Dose 10 MG; Start 07/29/16 at 13:00 Aztreonam/Sodium Chloride (Azactam/NS) 50 ml @ 100 mls/hr Q12 IV Last administered on 07/31/16 09:02; Admin Dose 100 MLS/HR; Start 07/31/16 at 09: 30 Warfarin Sodium (Coumadin) 2 mg DAILY@17 PO ; Start 07/31/16 at 17:00 Carvedilol (Coreg) 6.25 mg BID PO ; Start 07/31/16 at 21:00 Procedures Procedures CXR 07/31/16: 1. Diminished lung volumes compressive changes, severe in degree and stable over time. 2. Dense consolidation within the right lower lung, worse when compared to the prior study. Superimposed pleural effusion is not excluded. 3. Cardiomegaly with increased atherosclerotic vascular calcifications. JERICHO CRABTREE NP Jul 31, 2016 15:44 JERICHO CRABTREE NP Jul 31, 2016 15:44
--- NOTE | 2016-07-31 16:55 | PN ---
Date/Time of Note Date/Time of Note DATE: 07/31/16 TIME: 16:53 Assessment/Plan VTE Prophylaxis VTE Prophylaxis Intervention: SCD's Lines/Catheters IV Catheter Type (from Rust): Peripheral IV Urinary Cath still in place: No Assessment/Plan Chief Complaint/Hosp Course 1. Partial right internal jugular DVT. Continue heparin drip per protocol. Continue Coumadin. Continue daily PT PTT. 2. End-stage renal disease hemodialysis dependent. Dr. Bassett is following in nephrology consultation 3. Diastolic congestive heart failure. Continue to remove fluid was hemodialysis. 4. Pulmonary edema, improved. 5. Coronary artery disease with history of PCI. 6. Depression. Continue Cymbalta 7. History of left hip fracture, treated conservatively. 8. Osteoporosis. 9. Pulmonary hypertension. Continue sildenafil. 10. Fever over the weekend, Dr. Reardon is following from infectious disease consultation, started on empiric antibiotics, follow up on cultures. Continue heparin for deep venous thrombosis prophylaxis and Protonix for peptic ulcer disease prophylaxis Further recommendations based on clinical course. Plan of care discussed with Dr. Miramontes. Problems: Subjective 24 Hr Interval Summary Free Text/Dictation Patient's complains of shortness of breath, will obtain stat x-ray, continue breathing treatment, patient might require dialysis today for possible increasing pleural effusion. Exam/Review of Systems Vital Signs Vitals Vital Signs Date Time Temp Pulse Resp B/P Pulse Ox O2 Delivery O2 Flow Rate FiO2 07/31/16 16:09 4.0 07/31/16 16:09 99 30 93 Nasal Cannula 07/31/16 08:17 98.6 106/55 Intake and Output 07/30/16 07/30/16 07/31/16 15:00 23:00 07:00 Intake Total 620 ml 1150 ml Output Total 3100 ml Balance 620 ml -1950 ml Exam GENERAL: This is a well-developed, well-nourished male who currently is awake, alert on supplemental oxygen. HEENT: Head is atraumatic, normocephalic. Pupils equal, round, reactive to light and accommodation. NECK: Supple, no cervical lymphadenopathy. R IJ TLC. CHEST: The patient with diminished air entry into the lungs. CARDIOVASCULAR: Normal S1, S2. No murmurs, gallops, clicks, rubs noted. ABDOMEN: Round, soft, nondistended, nontender. Bowel sounds present. There is no guarding, no rebound tenderness. EXTREMITIES: Left upper extremity with arteriovenous fistula with palpable thrill and audible bruit. The patient is status post left BKA. Right lower extremity with mild edema, present pulse. SKIN: There is no rash, petechiae noted. NEUROLOGIC: The patient is awake, alert and oriented to name and situation. Results Result Diagram: 07/31/16 0428 07/31/16 042 Results 24 hrs Laboratory Tests Test 07/31/16 04:28 Anion Gap 16 Basophils # 0.0 Basophils % 0.2 Blood Morphology Comment Blood Urea Nitrogen 13 Calcium Level 8.4 Carbon Dioxide Level 30 Chloride Level 97 Creatinine 1.89 H Eosinophils # 0.0 Eosinophils % 0.2 Glucose Level 113 Hematocrit 29.4 L Hemoglobin 9.7 L INR International Normalized Ratio 2.39 Lymphocytes # 0.6 L Lymphocytes % 9.7 L Mean Corpuscular Hemoglobin 32.2 Mean Corpuscular Hemoglobin Concent 32.9 Mean Corpuscular Volume 97.9 Mean Platelet Volume 7.3 L Monocytes # 0.7 Monocytes % 12.1 H Neutrophils # 4.6 Neutrophils % 77.8 H Nucleated Red Blood Cells # 0.0 Nucleated Red Blood Cells % 0.0 Platelet Count 123 L Potassium Level 3.2 L Prothrombin Time 26.4 H Prothrombin Time Ratio 2.1 Random Vancomycin Level 7.8 Red Blood Count 3.00 L Red Cell Distribution Width 14.6 H Sodium Level 140 White Blood Count 5.9 Medications Medications Current Medications Acetaminophen (Tylenol Tab) 650 mg Q6H PRN PO PAIN1-3/FEVER ABOVE 100 Last administered on 07/29/16at 13:38; Admin Dose 650 MG; Start 07/26/16 at 09:00 Duloxetine HCl (Cymbalta) 90 mg DAILY PO Last administered on 07/31/16at 09:00 ; Admin Dose 90 MG; Start 07/26/16 at 10:00 Fluticasone Propionate (Flonase 0.05% Nasal) 1 spray BID NASAL Last administered on 07/31/16at 09:01; Admin Dose 1 SPRAY; Start 07/26/16 at 10:00 Guaifenesin (Robitussin Liquid Cup) 100 mg Q4 PRN PO COUGH Last administered on 07/29/16at 00:53; Admin Dose 100 MG; Start 07/26/16 at 09:00 Acetaminophen/ Hydrocodone Bitart ([place] (5/325)) 1 tab Q4 PRN PO WSOB Last administered on 07/31/16 15:01; Admin Dose 1 TAB; Start 07/26/16 at 09:00 Lactobacillus Acidoph/Bulgaricus (Floranex) 1 tab DAILY PO Last administered on 07/31/16 09:01; Admin Dose 1 TAB; Start 07/26/16 at 10:00 Lorazepam (Ativan) 1 mg Q6 PRN PO ANXIETY Last administered on 07/31/16 14:18 ; Admin Dose 1 MG; Start 07/26/16 at 09:00 Pantoprazole (Protonix Tab) 40 mg DAILY PO Last administered on 07/31/16 09: 01; Admin Dose 40 MG; Start 07/26/16 at 10:00 Polyethylene Glycol (Miralax) 17 gm DAILY PO Last administered on 07/31/16 09 :01; Admin Dose 17 GM; Start 07/26/16 at 09:00 Sildenafil Citrate (Revatio) 20 mg BID PO Last administered on 07/30/16 08:45 ; Admin Dose 20 MG; Start 07/26/16 at 18:00 Epoetin [place] (Epogen (Esrd)) 10,000 units MoWeFr@17 SC Last administered on 17:52; Admin Dose 10,000 UNITS; Start 07/27/16 at 17:00 Multivit/Ca Carb/ B Cmplx/FA/Prenat (Cheryl-Darcie) 1 tab DAILY PO Last administered on 07/31/16 09:01; Admin Dose 1 TAB; Start 07/27/16 at 09:00 Aspirin (Halfprin) 81 mg DAILY PO Last administered on 07/31/16 09:01; Admin Dose 81 MG; Start 07/27/16 at 12:45 Hydralazine HCl 10 mg 10 mg Q6H PRN IV ELEVATED BLOOD PRESSURE Last administered on 07/29/16 12:59; Admin Dose 10 MG; Start 07/29/16 at 13:00 Aztreonam/Sodium Chloride (Azactam/NS) 50 ml @ 100 mls/hr Q12 IV Last administered on 07/31/16 09:02; Admin Dose 100 MLS/HR; Start 12/13/16 at 09: 30 Warfarin Sodium (Coumadin) 2 mg DAILY@17 PO ; Start 07/31/16 at 17:00 Carvedilol (Coreg) 6.25 mg BID PO ; Start 07/31/16 at 21:00 MARY DOMINGUEZ Jul 31, 2016 16:55
[2016-07-31] MEDS: WARFARIN 2 MG TAB PO SCH (18:00)
[2016-07-31] MEDS ORDERED: LORAZEPAM 2 MG INJ IV STA (19:46)
[2016-07-31] MEDS: NITROGLYCERIN (SL) 0.4 MG TAB SL ONE ×2 (20:05→20:12)
[2016-07-31 20:13] LABS: AADO2 Arterial 566.9 mmHg (7.0-24.0); Allen Test ACCEPTAB; Arterial Base Excess 1.3 mmol/L (-3.0-3); Arterial COHb 0.5 % (0.0-3.0); Arterial Fraction of Oxyhgb 87.2 % (93.0-99.0); Arterial HCO3 31.2 mmol/L (22.0-26.0); Arterial MetHb 0.1 % (0.0-1.5); Arterial Total Hemglobin 11.8 g/dl (12.0-18.0); MODE NON-REBREATHING MASK
--- NOTE | 2016-07-31 20:25 | RADRPT ---
PROCEDURE: XR Chest. CLINICAL INDICATION: chest pain TECHNIQUE: Single frontal view of the chest was obtained. COMPARISON: 07/31/2016 at 02:00 p.m. FINDINGS: The cardiomediastinal silhouette is mildly prominent. Pulmonary vasculature is within normal limits . There is a small to moderate right pleural effusion. There is right lower lung probable consolid ation. There is atelectasis or infiltrate at the left base.. There is no pneumothorax. The osseous structures and soft tissues are unremarkable. IMPRESSION: 1. Small to moderate right pleural effusion. 2. Right lower lung consolidation, stable. 3. Left base atelectasis versus infiltrate, increased. 4. Limited hypoventilatory examination. Probable cardiomegaly. RPTAT: HBST .Imer Morse MD, Date Time Electronically viewed and signed by .Imer Morse MD, MD on 07/31/2016 20:24 .T/
[2016-07-31] MEDS ORDERED: NITROGLYCERIN (SL) 0.4 MG TAB SL ONE (20:30)
--- NOTE | 2016-07-31 20:42 | EN ---
Date/Time of Note Date/Time of Note DATE: 07/31/16 TIME: 20:41 ER Progress Note I was called to the patient's bedside in the intensive care unit by the managing provider because of hypercarbic respiratory failure. The patient had worsening respiratory distress on the floor. His pH was acidotic with an elevated PCO2. Upon arrival the patient is altered, increased respiratory effort, hypoxia. The patient clearly requires intubation. Rhonchi bilaterally. Intercostal retractions. Intubation Note: Indication: Airway protection Consent: This was an emergent situation, implied consent was observed RSI Medications: Etomidate 20 mg, Rocuronium 100 mg Tube size: 7.5 Secured at: 24 at the lip Procedure: Endotracheal intubation was performed. The patient was preoxygenated with supplemental oxygen, the room was set up with emergent airway equipment including [id number], suction, adjunct airways. Direct visualization of the cords was performed with direct laryngoscopy using a 4.0 Mac blade, insertion of the endotracheal tube through the cords was visualized by the core analysis operator. Bilateral breath sounds were auscultated, color change was observed. The tube was then secured in a postintubation chest x-ray was ordered. The patient tolerated the procedure well there were no complications. Chest x-ray pending. Further management and sedation per primary team. Diagnostic impression: Acute hypercarbic and hypoxic respiratory failure MINA PRESTON MD Jul 31, 2016 20:42
--- NOTE | 2016-07-31 21:40 | PN ---
Date/Time of Note Date/Time of Note DATE: 07/31/16 TIME: 21:29 Assessment/Plan VTE Prophylaxis VTE Prophylaxis Intervention: heparin, other (coumadin) Lines/Catheters IV Catheter Type (from Nrsg): Peripheral IV Urinary Cath still in place: No Assessment/Plan Assessment/Plan 66 yo male with multiple reasons for admission with worsening shortness of breath Acute respiratory distress - hypoxemic in nature - obtain a CXR, ABG, EKG and continue with non-rebreather. Ativan 0.5 mg given IV. Nitro spray given for the chest pain. Monitor acute changes. After the aforementioned was completed, the EKG was similar to the previous completed on 07/29/16. No acute findings. Also the CXR showed worsening pleural effusion and right pneumonia. ABG had showed respiratory acidosis and hypoxemia - because of deteriorating condition, he was transferred to the ICU, intubated by Dr. Arzate (ER physician) and started on mechanical ventilation. A call to the cloth hauler was made for possible repeat dialysis today. Recommendations made for possible IR guided thoracentesis. All of the aforementioned was discussed with the primary physician, Dr. Miramontes , who agreed with the plan. this critical care note took greater than 1 hour to complete Subjective 24 Hr Interval Summary Free Text/Dictation A rapid response was called on this patient 2/ to having respiratory distress. Patient is requiring increased supplemental oxygen and was hyperventilating as per nursing. Upon arrival the patient had worsening shortness of breath, complaining of chest pain with discomfort, non-radiating. He was placed on a non -rebreather mask, and continued. As per nursing, his mentation has been waxing and waning. Exam/Review of Systems Vital Signs Vitals Vital Signs Date Time Temp Pulse Resp B/P Pulse Ox O2 Delivery O2 Flow Rate FiO2 07/31/16 20:00 117 36 94 Non Rebreather Mask 15.0 07/31/16 08:17 98.6 106/55 Intake and Output 07/30/16 07/30/16 07/31/16 15:00 23:00 07:00 Intake Total 620 ml 1150 ml Output Total 3100 ml Balance 620 ml -1950 ml Exam Gen Enzo: moderate/severe respiratory distress, alert to place and name HEENT: NC/AT, PERRLA, EOMI, no pharyngeal erythema, no tonsillar exudates, no lymphadenopathy, no JVD, no carotid bruits NECK: supple, no thyromegaly THORAX: symmetrical, no obvious deformities CV: S1S2, tachycardiac, no M/G/R Lungs: R > L crackles, with diminished breath sounds to the bases, increased work of breathing Abd: soft, NT/ND, +BS, no rebound, no guarding, neg HSM EXT: trace bilateral lower extremity edema, no ecchymosis, no clubbing, FROM Neuro: CN II-XII grossly intact, no focal deficits Psych: anxious Skin: decreased skin turgor Results Result Diagram: 07/31/1642707/31/16427 Results 24 hrs Laboratory Tests Test 07/31/16 04:28 07/31/16 20:03 Anion Gap 16 Basophils # 0.0 Basophils % 0.2 Blood Morphology Comment Blood Urea Nitrogen 13 Calcium Level 8.4 Carbon Dioxide Level 30 Chloride Level 97 Creatinine 1.89 H Eosinophils # 0.0 Eosinophils % 0.2 Glucose Level 113 Hematocrit 29.4 L Hemoglobin 9.7 L INR International Normalized Ratio 2.39 Lymphocytes # 0.6 L Lymphocytes % 9.7 L Mean Corpuscular Hemoglobin 32.2 Mean Corpuscular Hemoglobin Concent 32.9 Mean Corpuscular Volume 97.9 Mean Platelet Volume 7.3 L Monocytes # 0.7 Monocytes % 12.1 H Neutrophils # 4.6 Neutrophils % 77.8 H Nucleated Red Blood Cells # 0.0 Nucleated Red Blood Cells % 0.0 Platelet Count 123 L Potassium Level 3.2 L Prothrombin Time 26.4 H Prothrombin Time Ratio 2.1 Random Vancomycin Level 7.8 Red Blood Count 3.00 L Red Cell Distribution Width 14.6 H Sodium Level 140 White Blood Count 5.9 Arterial Blood HCO3 31.2 H Arterial Blood Base Excess 1.3 Arterial Blood Oxygen Saturation 87.7 L Jerod Test ACCEPTAB Arterial Blood Gas Puncture Site Right Radial Arterial Blood Carboxyhemoglobin 0.5 Arterial Blood Date Drawn 07/31/2016 8:06:00 PM Arterial Blood Methemoglobin 0.1 Arterial Blood pCO2 (Temp correct) 81.6 *H Arterial Blood pH (Temp corrected) 7.201 *L Arterial Blood pO2 (Temp corrected) 64.5 L Blood Gas A-a O2 Differential 566.9 H Blood Gas Critical Value Read Back Max FRAZIER MD Blood Gas Modality NON-REBREATHING MASK Blood Gas Notified Time 07/31/2016 8:13:00 PM Blood Gas Notified Whom RTR Blood Gas Specimen Source Blood arterial Blood Gas Temperature 37.0 FiO2 100.0 Oxyhemoglobin Percent 87.2 L Total Hemoglobin 11.8 L Medications Medications Current Medications Acetaminophen (Tylenol Tab) 650 mg Q6H PRN PO PAIN1-3/FEVER ABOVE 100 Last administered on 07/29/16 13:38; Admin Dose 650 MG; Start 07/26/16 at 09:00 Duloxetine HCl (Cymbalta) 90 mg DAILY PO Last administered on 07/31/16 09:00 ; Admin Dose 90 MG; Start 07/26/16 at 10:00 Fluticasone Propionate (Flonase 0.05% Nasal) 1 spray BID NASAL Last administered on 07/31/16 09:01; Admin Dose 1 SPRAY; Start 07/26/16 at 10:00 Guaifenesin (Robitussin Liquid Cup) 100 mg Q4 PRN PO COUGH Last administered on 07/29/16 00:53; Admin Dose 100 MG; Start 07/26/16 at 09:00 Acetaminophen/ Hydrocodone Bitart ([place] (5/325)) 1 tab Q4 PRN PO WSOB Last administered on 07/31/16 15:01; Admin Dose 1 TAB; Start 07/26/16 at 09:00 Lactobacillus Acidoph/Bulgaricus (Floranex) 1 tab DAILY PO Last administered on 07/31/16 09:01; Admin Dose 1 TAB; Start 07/26/16 at 10:00 Lorazepam (Ativan) 1 mg Q6 PRN PO ANXIETY Last administered on 07/31/16 14:18 ; Admin Dose 1 MG; Start 07/26/16 at 09:00 Pantoprazole (Protonix Tab) 40 mg DAILY PO Last administered on 07/31/16 09: 01; Admin Dose 40 MG; Start 07/26/16 at 10:00 Polyethylene Glycol (Miralax) 17 gm DAILY PO Last administered on 07/31/16 09 :01; Admin Dose 17 GM; Start 07/26/16 at 09:00 Sildenafil Citrate (Revatio) 20 mg BID PO Last administered on 07/30/16at 08:45 ; Admin Dose 20 MG; Start 07/26/16 at 18:00 Epoetin [place] (Epogen (Esrd)) 10,000 units MoWeFr@17 SC Last administered on 17:52; Admin Dose 10,000 UNITS; Start 07/27/16 at 17:00 Multivit/Ca Carb/ B Cmplx/FA/Prenat (Cheryl-Darcie) 1 tab DAILY PO Last administered on 07/31/16 09:01; Admin Dose 1 TAB; Start 07/27/16 at 09:00 Aspirin (Halfprin) 81 mg DAILY PO Last administered on 07/31/16 09:01; Admin Dose 81 MG; Start 07/27/16 at 12:45 Hydralazine HCl 10 mg 10 mg Q6H PRN IV ELEVATED BLOOD PRESSURE Last administered on 07/29/16at 12:59; Admin Dose 10 MG; Start 07/29/16 at 13:00 Aztreonam/Sodium Chloride (Azactam/NS) 50 ml @ 100 mls/hr Q12 IV Last administered on 07/31/16 09:02; Admin Dose 100 MLS/HR; Start 07/31/16 at 09: 30 Warfarin Sodium (Coumadin) 2 mg DAILY@17 PO Last administered on 07/31/16 18: 00; Admin Dose 2 MG; Start 07/31/16 at 17:00 Carvedilol (Coreg) 6.25 mg BID PO ; Start 07/31/16 at 21:00 Procedures Procedures CXR IMPRESSION: 1. Diminished lung volumes compressive changes, severe in degree and stable over time. 2. Dense consolidation within the right lower lung, worse when compared to the prior study. Superimposed pleural effusion is not excluded. 3. Cardiomegaly with increased atherosclerotic vascular calcifications. REYNA FRAZIER MD Jul 31, 2016 21:40
[2016-07-31 21:46] LABS: EOSINOPHILS % 0.1 % (0.0-7.0); LYMPHOCYTES # 0.3 10^3/ul (0.8-2.9); LYMPHOCYTES % 3.7 % (15.0-51.0); MEAN CORPUSCULAR HEMOGLOBIN 32.8 pg (29.0-33.0); MEAN CORPUSCULAR HGB CONC 33.2 g/dl (32.0-37.0); MEAN CORPUSCULAR VOLUME 98.5 fl (82.0-101.0); MEAN PLATELET VOLUME 6.8 fl (7.4-10.4); MONOCYTE # 0.5 10^3/ul (0.3-0.9); NEUTROPHIL # 7.3 10^3/ul (1.6-7.5); NEUTROPHILS % 90.2 % (39.0-77.0); PLATELET COUNT 72 10^3/UL (140-440); RED BLOOD COUNT 1.82 10^6/ul (4.70-6.10); RED CELL DISTRIBUTION WIDTH 15.1 % (11.5-14.5); UNCORRECTED WBC 8.1 10^3/ul (4.8-10.8); WHITE BLOOD COUNT 8.1 10^3/ul (4.8-10.8)
[2016-07-31 21:54] LABS: CONDITION 1; LH ANALYZER COMMENTS 1
[2016-07-31 21:55] LABS: ALBUMIN 3.7 g/dl (3.3-4.9)
[2016-07-31 21:58] LABS: CREATININE 1.45 mg/dl (0.61-1.24)
[2016-07-31 21:59] LABS: ALBUMIN/GLOBULIN RATIO 1.68; TOTAL PROTEIN 5.9 g/dl (6.1-8.1)
[2016-07-31 22:07] LABS: AADO2 Arterial 474.5 mmHg (7.0-24.0); Allen Test ACCEPTAB; Arterial Base Excess -0.6 mmol/L (-3.0-3); Arterial COHb 0.4 % (0.0-3.0); Arterial Fraction of Oxyhgb 98.6 % (93.0-99.0); Arterial HCO3 24.9 mmol/L (22.0-26.0); Arterial MetHb 0.1 % (0.0-1.5); Arterial Total Hemglobin 10.5 g/dl (12.0-18.0); Blood Gas Low PEEP Setting 0 cmH2O; MODE VENT - AC
[2016-07-31 22:11] LABS: TROPONIN-I 0.074 ng/ml (0.00-0.12)
[2016-07-31 22:14] LABS: CALCIUM 3.7 mg/dl (8.4-10.2); POTASSIUM 1.9 mmol/L (3.5-5.1)
[2016-07-31 22:29] LABS: INR 2.52; PROTIME 27.5 Sec (12.2-14.2); PT RATIO 2.1
[2016-07-31 22:30] LABS: PARTIAL THROMBOPLASTIN TIME 50.8 Sec (25.0-35.0)
--- NOTE | 2016-07-31 22:33 | RADRPT ---
PROCEDURE: XR Chest. CLINICAL INDICATION: Check endotracheal tube position. TECHNIQUE: Single frontal view. COMPARISON: 07/31/2016. 2000 hours. FINDINGS: The endotracheal tube is in satisfactory position with the tip 5 cm above the sofie. The gastric t ube tip is in the stomach. There is air space disease at the lung bases, improved. Right is worse than left as seen previously. The heart is mildly enlarged. There is no pleural effusion. There is no pneumothorax. IMPRESSION: 1. Endotracheal tube and nasogastric tube inserted in satisfactory position. 2. Improved aeration of the lungs. 3. Mild cardiomegaly. RPTAT: QQ .Luca Hopkins MD, MD Date Time Electronically viewed and signed by .Luca Hopkins MD, MD on 07/31/2016 22:33 .R/
[2016-07-31 22:54] LABS: BASOPHIL # 0.1 10^3/ul (0.0-0.1); BASOPHILS % 0.7 % (0.0-2.0); HEMATOCRIT 31.9 % (42.0-52.0); HEMOGLOBIN 10.4 g/dl (14.0-18.0); LYMPHOCYTES # 0.5 10^3/ul (0.8-2.9); LYMPHOCYTES % 3.5 % (15.0-51.0); MEAN CORPUSCULAR HEMOGLOBIN 31.9 pg (29.0-33.0); MEAN CORPUSCULAR HGB CONC 32.5 g/dl (32.0-37.0); MEAN CORPUSCULAR VOLUME 98.3 fl (82.0-101.0); MEAN PLATELET VOLUME 6.9 fl (7.4-10.4); MONOCYTES % 6.3 % (0.0-11.0); NEUTROPHIL # 13.5 10^3/ul (1.6-7.5); NEUTROPHILS % 89.5 % (39.0-77.0); PLATELET COUNT 128 10^3/UL (140-440); RED BLOOD COUNT 3.24 10^6/ul (4.70-6.10); RED CELL DISTRIBUTION WIDTH 14.5 % (11.5-14.5); UNCORRECTED WBC 15.1 10^3/ul (4.8-10.8); WHITE BLOOD COUNT 15.1 10^3/ul (4.8-10.8)
[2016-07-31 22:58] LABS: CONDITION 1
[2016-07-31 23:07] LABS: ALBUMIN 4.1 g/dl (3.3-4.9)
[2016-07-31 23:08] LABS: POTASSIUM 3.5 mmol/L (3.5-5.1)
[2016-07-31 23:10] LABS: BILIRUBIN,INDIRECT 0.4 mg/dl (0-1.1); BILIRUBIN,TOTAL 0.4 mg/dl (0.2-1.3); CREATININE 2.32 mg/dl (0.61-1.24)
[2016-07-31 23:11] LABS: ALBUMIN/GLOBULIN RATIO 1.17; CALCIUM 8.4 mg/dl (8.4-10.2); TOTAL PROTEIN 7.6 g/dl (6.1-8.1)
[2016-07-31] MEDS ORDERED: ALBUMIN HUMAN 25% 100 ML IV ONE (23:30)
[2016-07-31] MEDS: PROPOFOL 100 ML IV SCH (23:47)
[2016-07-31] MEDS: METHYLPREDNISOLONE 40 MG INJ IV SCH (23:49)
[2016-07-31] MEDS: ALBUTEROL HFA 8 GM INHALER INH SCH (23:52)
[2016-08-01] VITALS (73 sets, daily range): BP systolic 59–133; BP diastolic 42–93; PULSE 72–101; RESP 12–30
[2016-08-01] MEDS: ALBUTEROL HFA 8 GM INHALER INH SCH ×6 (00:58→21:01)
[2016-08-01 05:59] LABS: INR 2.33; PROTIME 25.8 Sec (12.2-14.2)
[2016-08-01] MEDS ORDERED: ASPIRIN 325 MG TAB PO ONE (06:00)
[2016-08-01 06:07] LABS: EOSINOPHILS % 0.1 % (0.0-7.0); HEMATOCRIT 31.5 % (42.0-52.0); HEMOGLOBIN 10.4 g/dl (14.0-18.0); LYMPHOCYTES # 0.4 10^3/ul (0.8-2.9); LYMPHOCYTES % 4.2 % (15.0-51.0); MEAN CORPUSCULAR HEMOGLOBIN 32.6 pg (29.0-33.0); MEAN CORPUSCULAR HGB CONC 33.1 g/dl (32.0-37.0); MEAN CORPUSCULAR VOLUME 98.4 fl (82.0-101.0); MEAN PLATELET VOLUME 8.1 fl (7.4-10.4); MONOCYTE # 0.3 10^3/ul (0.3-0.9); MONOCYTES % 2.8 % (0.0-11.0); NEUTROPHIL # 9.4 10^3/ul (1.6-7.5); NEUTROPHILS % 92.9 % (39.0-77.0); PLATELET COUNT 110 10^3/UL (140-440); RED CELL DISTRIBUTION WIDTH 14.9 % (11.5-14.5); UNCORRECTED WBC 10.1 10^3/ul (4.8-10.8); WHITE BLOOD COUNT 10.1 10^3/ul (4.8-10.8)
[2016-08-01] MEDS: METHYLPREDNISOLONE 40 MG INJ IV SCH ×4 (06:10→23:24)
[2016-08-01 06:12] LABS: CONDITION 1; LH ANALYZER COMMENTS 1
[2016-08-01 06:17] LABS: POTASSIUM 3.9 mmol/L (3.5-5.1)
[2016-08-01 06:20] LABS: CREATININE 2.5 mg/dl (0.61-1.24)
[2016-08-01 06:21] LABS: CALCIUM 8.5 mg/dl (8.4-10.2)
[2016-08-01] MEDS: SEVELAMER CARBONATE 0.8 GM PKT PO SCH ×3 (07:35→17:58)
--- NOTE | 2016-08-01 07:48 | CONS ---
Date/Time of Note Date/Time of Note DATE: 08/01/16 TIME: 07:45 Assessment/Plan Assessment/Plan Additional Assessment/Plan 1. Respirator failure, cuase unclear, no chf noted on cxr, ?? inc infiltrate ( on coumadin), hopeful extubation soon per pulmonary, abx noted. 2. CKD, was dialyzed last night, next tomm. Consultation Date/Type/Reason Admit Date/Time Jul 26, 2016 at 01:55 Type of Consultation: Infectious Disease Referring Provider: GRACIE KATHLEEN 24 HR Interval Summary Subjective hx not possible: other (Sedated and intubated, does not respond to gentle tact stimuli and verb stimuli) Exam/Review of Systems Vital Signs Vitals Vital Signs Date Time Temp Pulse Resp B/P Pulse Ox O2 Delivery O2 Flow Rate FiO2 08/01/16 06:30 80 16 97/52 100 08/01/16 06:00 Mechanical Ventilator 08/01/16 04:55 50 08/01/16 04:00 98.5 07/31/16 20:03 15.0 Intake and Output 07/31/16 07/31/16 08/01/16 15:00 23:00 07:00 Intake Total 300 ml 280 ml 542 ml Output Total 3000 ml Balance 300 ml 280 ml -2458 ml Exam Neck: No jvd Respiratory: clear to auscultation Cardiovascular: regular rate and rhythm Gastrointestinal: soft Extremities: No edema Results Result Diagram: 08/01/16 0529 08/01/16 0529 Results 24 hrs Laboratory Tests Test 07/31/16 20:03 07/31/16 21:28 07/31/16 21:29 07/31/16 22:09 Arterial Blood HCO3 31.2 H 24.9 Arterial Blood Base Excess 1.3 -0.6 Arterial Blood Oxygen Saturation 87.7 L 99.1 H Jerod Test ACCEPTAB ACCEPTAB Arterial Blood Gas Puncture Site Right Radial Right Radial Arterial Blood Carboxyhemoglobin 0.5 0.4 Arterial Blood Date Drawn 07/31/2016 8:06:00 PM 07/31/2016 9:50:55 PM Arterial Blood Methemoglobin 0.1 0.1 Arterial Blood pCO2 (Temp correct) 81.6 *H 44.7 Arterial Blood pH (Temp corrected) 7.201 *L 7.364 Arterial Blood pO2 (Temp corrected) 64.5 L 193.8 H Blood Gas A-a O2 Differential 566.9 H 474.5 H Blood Gas Critical Value Read Back Max FRAZIER MD Blood Gas Modality NON-REBREATHING MASK VENT - AC Blood Gas Notified Time 07/31/2016 8:13:00 PM 07/31/2016 10:06:47 PM Blood Gas Notified Whom RTR AA Blood Gas Specimen Source Blood arterial Blood arterial Blood Gas Temperature 37.0 37.0 FiO2 100.0 100.0 Oxyhemoglobin Percent 87.2 L 98.6 Total Hemoglobin 11.8 L 10.5 L Blood Gas Actual Respiration Rate 16 Blood Gas Inspiratory Pressure 27.0 Blood Gas Low PEEP Setting 0 Blood Gas Respiration Rate 16.0 Blood Gas Tidal Volume 550.0 Alanine Aminotransferase (ALT/SGPT) 22 Albumin 3.7 Albumin/Globulin Ratio 1.68 Alkaline Phosphatase 33 #L Anion Gap 22 H Aspartate Amino Transf (AST/SGOT) 13 #L B-Type Natriuretic Peptide 11065 H Basophils # 0.0 Basophils % 0.0 Blood Morphology Comment Blood Urea Nitrogen 12 Calcium Level 3.7 #*L Carbon Dioxide Level 16 #L Chloride Level 110 # Creatinine 1.45 H Direct Bilirubin 0.00 Eosinophils # 0.0 Eosinophils % 0.1 Globulin 2.20 Glucose Level 93 Hematocrit 18.0 #L Hemoglobin 6.0 #*L Indirect Bilirubin 0.0 Lymphocytes # 0.3 L Lymphocytes % 3.7 L Mean Corpuscular Hemoglobin 32.8 Mean Corpuscular Hemoglobin Concent 33.2 Mean Corpuscular Volume 98.5 Mean Platelet Volume 6.8 L Monocytes # 0.5 Monocytes % 6.0 Neutrophils # 7.3 Neutrophils % 90.2 H Nucleated Red Blood Cells # 0.0 Nucleated Red Blood Cells % 0.0 Platelet Count 72 #L Potassium Level 1.9 *L Red Blood Count 1.82 #L Red Cell Distribution Width 15.1 H Sodium Level 146 H Total Bilirubin 0.0 L Total Protein 5.9 #L Troponin I 0.074 White Blood Count 8.1 # Activated Partial Thromboplast Time 50.8 H INR International Normalized Ratio 2.52 Prothrombin Time 27.5 H Prothrombin Time Ratio 2.1 Test 07/31/16 22:30 08/01/16 02:45 08/01/16 05:29 Alanine Aminotransferase (ALT/SGPT) 25 Albumin 4.1 Albumin/Globulin Ratio 1.17 Alkaline Phosphatase 72 # Anion Gap 19 H 20 H Aspartate Amino Transf (AST/SGOT) 29 # Basophils # 0.1 0.0 Basophils % 0.7 0.0 Blood Morphology Comment Blood Urea Nitrogen 19 21 H Calcium Level 8.4 # 8.5 Carbon Dioxide Level 26 # 28 Chloride Level 97 # 98 Creatinine 2.32 H 2.50 H Direct Bilirubin 0.00 Eosinophils # 0.0 0.0 Eosinophils % 0.0 0.1 Globulin 3.50 H Glucose Level 179 193 Hematocrit 31.9 #L 31.5 L Hemoglobin 10.4 #L 10.4 L Indirect Bilirubin 0.4 Lymphocytes # 0.5 L 0.4 L Lymphocytes % 3.5 L 4.2 L Mean Corpuscular Hemoglobin 31.9 32.6 Mean Corpuscular Hemoglobin Concent 32.5 33.1 Mean Corpuscular Volume 98.3 98.4 Mean Platelet Volume 6.9 L 8.1 Monocytes # 1.0 H 0.3 Monocytes % 6.3 2.8 Neutrophils # 13.5 H 9.4 H Neutrophils % 89.5 H 92.9 H Nucleated Red Blood Cells # 0.0 0.0 Nucleated Red Blood Cells % 0.0 0.0 Platelet Count 128 #L 110 L Potassium Level 3.5 3.9 Red Blood Count 3.24 #L 3.20 L Red Cell Distribution Width 14.5 14.9 H Sodium Level 138 142 Total Bilirubin 0.4 Total Protein 7.6 # White Blood Count 15.1 #H 10.1 # Troponin I 0.121 *H 0.138 *H Creatinine Kinase MB (Mass) 0.93 INR International Normalized Ratio 2.33 Prothrombin Time 25.8 H Prothrombin Time Ratio 2.0 Medications Medications Current Medications Acetaminophen (Tylenol Tab) 650 mg Q6H PRN PO PAIN1-3/FEVER ABOVE 100 Last administered on 07/29/16at 13:38; Admin Dose 650 MG; Start 07/26/16 at 09:00 Duloxetine HCl (Cymbalta) 90 mg DAILY PO Last administered on 07/31/16at 09:00 ; Admin Dose 90 MG; Start 07/26/16 at 10:00 Fluticasone Propionate (Flonase 0.05% Nasal) 1 spray BID NASAL Last administered on 07/31/16at 09:01; Admin Dose 1 SPRAY; Start 07/26/16 at 10:00 Guaifenesin (Robitussin Liquid Cup) 100 mg Q4 PRN PO COUGH Last administered on 07/29/16 00:53; Admin Dose 100 MG; Start 07/26/16 at 09:00 Acetaminophen/ Hydrocodone Bitart ([place] (5/325)) 1 tab Q4 PRN PO WSOB Last administered on 07/31/16 15:01; Admin Dose 1 TAB; Start 07/26/16 at 09:00 Lactobacillus Acidoph/Bulgaricus (Floranex) 1 tab DAILY PO Last administered on 07/31/16 09:01; Admin Dose 1 TAB; Start 07/26/16 at 10:00 Lorazepam (Ativan) 1 mg Q6 PRN PO ANXIETY Last administered on 07/31/16 14:18 ; Admin Dose 1 MG; Start 07/26/16 at 09:00 Pantoprazole (Protonix Tab) 40 mg DAILY PO Last administered on 07/31/16 09: 01; Admin Dose 40 MG; Start 07/26/16 at 10:00 Polyethylene Glycol (Miralax) 17 gm DAILY PO Last administered on 07/31/16 09 :01; Admin Dose 17 GM; Start 07/26/16 at 09:00 Sildenafil Citrate (Revatio) 20 mg BID PO Last administered on 07/30/16 08:45 ; Admin Dose 20 MG; Start 07/26/16 at 18:00 Epoetin [place] (Epogen (Esrd)) 10,000 units MoWeFr@17 SC Last administered on 17:52; Admin Dose 10,000 UNITS; Start 07/27/16 at 17:00 Multivit/Ca Carb/ B Cmplx/FA/Prenat (Cheryl-Darcie) 1 tab DAILY PO Last administered on 07/31/16 09:01; Admin Dose 1 TAB; Start 07/27/16 at 09:00 Aspirin (Halfprin) 81 mg DAILY PO Last administered on 07/31/16 09:01; Admin Dose 81 MG; Start 07/27/16 at 12:45 Hydralazine HCl 10 mg 10 mg Q6H PRN IV ELEVATED BLOOD PRESSURE Last administered on 07/29/16 12:59; Admin Dose 10 MG; Start 07/29/16 at 13:00 Aztreonam/Sodium Chloride (Azactam/NS) 50 ml @ 100 mls/hr Q12 IV Last administered on 07/31/16at 22:08; Admin Dose 100 MLS/HR; Start 07/31/16 at 09: 30 Warfarin Sodium (Coumadin) 2 mg DAILY@17 PO Last administered on 07/31/16at 18: 00; Admin Dose 2 MG; Start 07/31/16 at 17:00 Carvedilol (Coreg) 6.25 mg BID PO ; Start 07/31/16 at 21:00 Methylprednisolone Sodium Succinate 40 mg 40 mg Q6 IV Last administered on at 06:10; Admin Dose 40 MG; Start 08/01/16 at 00:00 Propofol (Diprivan) 100 ml @ 3.078 mls/ hr Q12H IV Last administered on at 23:47; Admin Dose 15.39 MLS/HR; Start 07/31/16 at 22:30 JESSICA ROSARIO MD Aug 01, 2016 07:48
[2016-08-01] MEDS: FLUTICASONE 0.05% 16 GM NAS SPRAY NASAL SCH ×2 (09:00→20:27)
[2016-08-01] MEDS: LACTOBACILLUS CHEW TAB PO SCH ×2 (09:00→14:24)
[2016-08-01] MEDS: DULOXETINE 30 MG CAP DR PO SCH ×2 (09:00→14:24)
[2016-08-01] MEDS: PANTOPRAZOLE (EC) 40 MG TAB PO SCH (09:00)
[2016-08-01] MEDS: SILDENAFIL 20 MG TAB PO SCH ×2 (09:00→21:00)
[2016-08-01] MEDS: ASPIRIN (EC) 81 MG TAB PO SCH ×2 (09:00→14:24)
[2016-08-01] MEDS: POLYETHYLENE GLYCOL 17 GM PACKET PO SCH ×2 (09:00→14:23)
[2016-08-01] MEDS: MULTIVIT/CA CARB/B CMPLX/FA TAB PO SCH ×2 (09:00→14:24)
[2016-08-01] MEDS: PROPOFOL 100 ML IV SCH (10:30)
[2016-08-01] MEDS: AZTREONAM 0.5 GM in SOD CHLORIDE 0.9% 50 ML IV SCH ×2 (11:09→20:19)
--- NOTE | 2016-08-01 11:34 | CONS ---
Date/Time of Note Date/Time of Note DATE: 08/01/16 TIME: 11:31 Consult Date/Type/Reason Admit Date/Time Jul 26, 2016 at 01:55 Initial Consult Date 07/29/16 Type of Consultation: Pulm Ordering Provider: GRACIE KATHLEEN Subjective Intubated for resp distress. Follows simple commands Pending hemodialysis Objective Vital Signs Date Time Temp Pulse Resp B/P Pulse Ox O2 Delivery O2 Flow Rate FiO2 08/01/16 08:30 81 16 100/58 100 08/01/16 08:00 98.2 08/01/16 08:00 50 08/01/16 06:00 Mechanical Ventilator 07/31/16 20:03 15.0 Intake and Output 07/31/16 07/31/16 08/01/16 15:00 23:00 07:00 Intake Total 300 ml 280 ml 542 ml Output Total 3000 ml Balance 300 ml 280 ml -2458 ml PHYSICAL EXAMINATION: GENERAL: Chronically ill appearing gentleman, comfortable at rest, no acute distress. on vent VITAL SIGNS: as above NECK: Supple. No JVD or lymphadenopathy. CARDIAC: S1, S2, no added sounds or murmurs. CHEST: Diminished air entry bilaterally. ABDOMEN: Soft, nontender. No guarding or rebound. EXTREMITIES: No cyanosis, clubbing, or edema. NEUROLOGIC: unable to assess Results/Medications Result Diagram: 08/01/16 0529 08/01/16 0529 Results 24 hrs Laboratory Tests Test 07/31/16 20:03 07/31/16 21:28 07/31/16 21:29 07/31/16 22:09 Arterial Blood HCO3 31.2 H 24.9 Arterial Blood Base Excess 1.3 -0.6 Arterial Blood Oxygen Saturation 87.7 L 99.1 H Jerod Test ACCEPTAB ACCEPTAB Arterial Blood Gas Puncture Site Right Radial Right Radial Arterial Blood Carboxyhemoglobin 0.5 0.4 Arterial Blood Date Drawn 07/31/2016 8:06:00 PM 07/31/2016 9:50:55 PM Arterial Blood Methemoglobin 0.1 0.1 Arterial Blood pCO2 (Temp correct) 81.6 *H 44.7 Arterial Blood pH (Temp corrected) 7.201 *L 7.364 Arterial Blood pO2 (Temp corrected) 64.5 L 193.8 H Blood Gas A-a O2 Differential 566.9 H 474.5 H Blood Gas Critical Value Read Back Max FRAZIER MD Blood Gas Modality NON-REBREATHING MASK VENT - AC Blood Gas Notified Time 07/31/2016 8:13:00 PM 07/31/2016 10:06:47 PM Blood Gas Notified Whom RTR AA Blood Gas Specimen Source Blood arterial Blood arterial Blood Gas Temperature 37.0 37.0 FiO2 100.0 100.0 Oxyhemoglobin Percent 87.2 L 98.6 Total Hemoglobin 11.8 L 10.5 L Blood Gas Actual Respiration Rate 16 Blood Gas Inspiratory Pressure 27.0 Blood Gas Low PEEP Setting 0 Blood Gas Respiration Rate 16.0 Blood Gas Tidal Volume 550.0 Alanine Aminotransferase (ALT/SGPT) 22 Albumin 3.7 Albumin/Globulin Ratio 1.68 Alkaline Phosphatase 33 #L Anion Gap 22 H Aspartate Amino Transf (AST/SGOT) 13 #L B-Type Natriuretic Peptide 75295 H Basophils # 0.0 Basophils % 0.0 Blood Morphology Comment Blood Urea Nitrogen 12 Calcium Level 3.7 #*L Carbon Dioxide Level 16 #L Chloride Level 110 # Creatinine 1.45 H Direct Bilirubin 0.00 Eosinophils # 0.0 Eosinophils % 0.1 Globulin 2.20 Glucose Level 93 Hematocrit 18.0 #L Hemoglobin 6.0 #*L Indirect Bilirubin 0.0 Lymphocytes # 0.3 L Lymphocytes % 3.7 L Mean Corpuscular Hemoglobin 32.8 Mean Corpuscular Hemoglobin Concent 33.2 Mean Corpuscular Volume 98.5 Mean Platelet Volume 6.8 L Monocytes # 0.5 Monocytes % 6.0 Neutrophils # 7.3 Neutrophils % 90.2 H Nucleated Red Blood Cells # 0.0 Nucleated Red Blood Cells % 0.0 Platelet Count 72 #L Potassium Level 1.9 *L Red Blood Count 1.82 #L Red Cell Distribution Width 15.1 H Sodium Level 146 H Total Bilirubin 0.0 L Total Protein 5.9 #L Troponin I 0.074 White Blood Count 8.1 # Activated Partial Thromboplast Time 50.8 H INR International Normalized Ratio 2.52 Prothrombin Time 27.5 H Prothrombin Time Ratio 2.1 Test 07/31/16 22:30 08/01/16 02:45 08/01/16 05:29 08/01/16 10:23 Alanine Aminotransferase (ALT/SGPT) 25 Albumin 4.1 Albumin/Globulin Ratio 1.17 Alkaline Phosphatase 72 # Anion Gap 19 H 20 H Aspartate Amino Transf (AST/SGOT) 29 # Basophils # 0.1 0.0 Basophils % 0.7 0.0 Blood Morphology Comment Blood Urea Nitrogen 19 21 H Calcium Level 8.4 # 8.5 Carbon Dioxide Level 26 # 28 Chloride Level 97 # 98 Creatinine 2.32 H 2.50 H Direct Bilirubin 0.00 Eosinophils # 0.0 0.0 Eosinophils % 0.0 0.1 Globulin 3.50 H Glucose Level 179 193 Hematocrit 31.9 #L 31.5 L Hemoglobin 10.4 #L 10.4 L Indirect Bilirubin 0.4 Lymphocytes # 0.5 L 0.4 L Lymphocytes % 3.5 L 4.2 L Mean Corpuscular Hemoglobin 31.9 32.6 Mean Corpuscular Hemoglobin Concent 32.5 33.1 Mean Corpuscular Volume 98.3 98.4 Mean Platelet Volume 6.9 L 8.1 Monocytes # 1.0 H 0.3 Monocytes % 6.3 2.8 Neutrophils # 13.5 H 9.4 H Neutrophils % 89.5 H 92.9 H Nucleated Red Blood Cells # 0.0 0.0 Nucleated Red Blood Cells % 0.0 0.0 Platelet Count 128 #L 110 L Potassium Level 3.5 3.9 Red Blood Count 3.24 #L 3.20 L Red Cell Distribution Width 14.5 14.9 H Sodium Level 138 142 Total Bilirubin 0.4 Total Protein 7.6 # White Blood Count 15.1 #H 10.1 # Troponin I 0.121 *H 0.138 *H Creatinine Kinase MB (Mass) 0.93 0.79 INR International Normalized Ratio 2.33 Prothrombin Time 25.8 H Prothrombin Time Ratio 2.0 Medications Current Medications Acetaminophen (Tylenol Tab) 650 mg Q6H PRN PO PAIN1-3/FEVER ABOVE 100 Last administered on 07/29/16at 13:38; Admin Dose 650 MG; Start 07/26/16 at 09:00 Duloxetine HCl (Cymbalta) 90 mg DAILY PO Last administered on 07/31/16at 09:00 ; Admin Dose 90 MG; Start 07/26/16 at 10:00 Fluticasone Propionate (Flonase 0.05% Nasal) 1 spray BID NASAL Last administered on 07/31/16at 09:01; Admin Dose 1 SPRAY; Start 07/26/16 at 10:00 Guaifenesin (Robitussin Liquid Cup) 100 mg Q4 PRN PO COUGH Last administered on 07/29/16 00:53; Admin Dose 100 MG; Start 07/26/16 at 09:00 Acetaminophen/ Hydrocodone Bitart ([place] (5/325)) 1 tab Q4 PRN PO WSOB Last administered on 07/31/16 15:01; Admin Dose 1 TAB; Start 07/26/16 at 09:00 Lactobacillus Acidoph/Bulgaricus (Floranex) 1 tab DAILY PO Last administered on 07/31/16 09:01; Admin Dose 1 TAB; Start 07/26/16 at 10:00 Lorazepam (Ativan) 1 mg Q6 PRN PO ANXIETY Last administered on 07/31/16 14:18 ; Admin Dose 1 MG; Start 07/26/16 at 09:00 Pantoprazole (Protonix Tab) 40 mg DAILY PO Last administered on 07/31/16 09: 01; Admin Dose 40 MG; Start 07/26/16 at 10:00 Polyethylene Glycol (Miralax) 17 gm DAILY PO Last administered on 07/31/16 09 :01; Admin Dose 17 GM; Start 07/26/16 at 09:00 Sildenafil Citrate (Revatio) 20 mg BID PO Last administered on 07/30/16 08:45 ; Admin Dose 20 MG; Start 07/26/16 at 18:00 Epoetin [place] (Epogen (Esrd)) 10,000 units MoWeFr@17 SC Last administered on 17:52; Admin Dose 10,000 UNITS; Start 07/27/16 at 17:00 Multivit/Ca Carb/ B Cmplx/FA/Prenat (Cheryl-Darcie) 1 tab DAILY PO Last administered on 07/31/16 09:01; Admin Dose 1 TAB; Start 07/27/16 at 09:00 Aspirin (Halfprin) 81 mg DAILY PO Last administered on 07/31/16 09:01; Admin Dose 81 MG; Start 07/27/16 at 12:45 Hydralazine HCl 10 mg 10 mg Q6H PRN IV ELEVATED BLOOD PRESSURE Last administered on 07/29/16 12:59; Admin Dose 10 MG; Start 07/29/16 at 13:00 Aztreonam/Sodium Chloride (Azactam/NS) 50 ml @ 100 mls/hr Q12 IV Last administered on 08/01/16at 11:09; Admin Dose 100 MLS/HR; Start 07/31/16 at 09: 30 Warfarin Sodium (Coumadin) 2 mg DAILY@17 PO Last administered on 07/31/16at 18: 00; Admin Dose 2 MG; Start 07/31/16 at 17:00 Carvedilol (Coreg) 6.25 mg BID PO ; Start 07/31/16 at 21:00 Methylprednisolone Sodium Succinate 40 mg 40 mg Q6 IV Last administered on at 06:10; Admin Dose 40 MG; Start 08/01/16 at 00:00 Propofol (Diprivan) 100 ml @ 3.078 mls/ hr Q12H IV Last administered on at 23:47; Admin Dose 15.39 MLS/HR; Start 07/31/16 at 22:30 Assessment/Plan Chief Complaint/Hosp Course Assessment 1. Hypoxemic resp failure 2. Pulm edema 3. Encephalopathy toxic metabolic 4. Diastolic dysf ? Plan 1. Continue Vent 2. Emergent HD 3, Aspiration precautions 4. DVT / GI prophylaxis. d/w staff Problems: VALERIE CAMARENA MD, [facility] Aug 01, 2016 11:34
--- NOTE | 2016-08-01 13:33 | CONS ---
Date/Time of Note Date/Time of Note DATE: 08/01/16 TIME: 13:29 Assessment/Plan Assessment/Plan Additional Assessment/Plan Respiratory failure status post intubation Minimally elevated troponin Partial right internal jugular DVT Diastolic congestive heart failure End-stage renal disease on hemodialysis CAD with history of PCI Diabetes Peripheral arterial disease with history of amputation Pulmonary hypertension -Patient with acute respiratory distress last night requiring intubation. Chest x-ray with larger infiltrate and pulmonary vascular congestion. Troponins are minimally elevated and trend remained relatively static. ECG with with no significant changes compared to prior. Would continue aspirin and statin therapy , blood pressure on the lower and and would hold antihypertensives, antibiotics as per the primary team. Consultation Date/Type/Reason Admit Date/Time Jul 26, 2016 at 01:55 Type of Consultation: cv Referring Provider: GRACIE KATHLEEN 24 HR Interval Summary Free Text/Dictation Patient with respiratory distress last night requiring intubation and transfer to ICU Exam/Review of Systems Vital Signs Vitals Vital Signs Date Time Temp Pulse Resp B/P Pulse Ox O2 Delivery O2 Flow Rate FiO2 08/01/16 12:00 99.6 72 16 75/48 100 08/01/16 11:30 50 08/01/16 06:00 Mechanical Ventilator 07/31/16 20:03 15.0 Intake and Output 07/31/16 07/31/16 08/01/16 15:00 23:00 07:00 Intake Total 300 ml 280 ml 542 ml Output Total 3000 ml Balance 300 ml 280 ml -2458 ml Exam Sedated and intubated, no apparent distress ENMT: intubated Respiratory: other (course breath sounds bilaterally, no wheezing) Cardiovascular: other (S1-S2 heard), regular rate and rhythm Gastrointestinal: bowel sounds, non-tender, other (no grimacing with palpation) , soft Extremities: edema Results Result Diagram: 08/01/16 0529 08/01/16 0529 Results 24 hrs Laboratory Tests Test 07/31/16 20:03 07/31/16 21:28 07/31/16 21:29 07/31/16 22:09 Arterial Blood HCO3 31.2 H 24.9 Arterial Blood Base Excess 1.3 -0.6 Arterial Blood Oxygen Saturation 87.7 L 99.1 H Jerod Test ACCEPTAB ACCEPTAB Arterial Blood Gas Puncture Site Right Radial Right Radial Arterial Blood Carboxyhemoglobin 0.5 0.4 Arterial Blood Date Drawn 07/31/2016 8:06:00 PM 07/31/2016 9:50:55 PM Arterial Blood Methemoglobin 0.1 0.1 Arterial Blood pCO2 (Temp correct) 81.6 *H 44.7 Arterial Blood pH (Temp corrected) 7.201 *L 7.364 Arterial Blood pO2 (Temp corrected) 64.5 L 193.8 H Blood Gas A-a O2 Differential 566.9 H 474.5 H Blood Gas Critical Value Read Back Max FRAZIER MD Blood Gas Modality NON-REBREATHING MASK VENT - AC Blood Gas Notified Time 07/31/2016 8:13:00 PM 07/31/2016 10:06:47 PM Blood Gas Notified Whom RTR AA Blood Gas Specimen Source Blood arterial Blood arterial Blood Gas Temperature 37.0 37.0 FiO2 100.0 100.0 Oxyhemoglobin Percent 87.2 L 98.6 Total Hemoglobin 11.8 L 10.5 L Blood Gas Actual Respiration Rate 16 Blood Gas Inspiratory Pressure 27.0 Blood Gas Low PEEP Setting 0 Blood Gas Respiration Rate 16.0 Blood Gas Tidal Volume 550.0 Alanine Aminotransferase (ALT/SGPT) 22 Albumin 3.7 Albumin/Globulin Ratio 1.68 Alkaline Phosphatase 33 #L Anion Gap 22 H Aspartate Amino Transf (AST/SGOT) 13 #L B-Type Natriuretic Peptide 24233 H Basophils # 0.0 Basophils % 0.0 Blood Morphology Comment Blood Urea Nitrogen 12 Calcium Level 3.7 #*L Carbon Dioxide Level 16 #L Chloride Level 110 # Creatinine 1.45 H Direct Bilirubin 0.00 Eosinophils # 0.0 Eosinophils % 0.1 Globulin 2.20 Glucose Level 93 Hematocrit 18.0 #L Hemoglobin 6.0 #*L Indirect Bilirubin 0.0 Lymphocytes # 0.3 L Lymphocytes % 3.7 L Mean Corpuscular Hemoglobin 32.8 Mean Corpuscular Hemoglobin Concent 33.2 Mean Corpuscular Volume 98.5 Mean Platelet Volume 6.8 L Monocytes # 0.5 Monocytes % 6.0 Neutrophils # 7.3 Neutrophils % 90.2 H Nucleated Red Blood Cells # 0.0 Nucleated Red Blood Cells % 0.0 Platelet Count 72 #L Potassium Level 1.9 *L Red Blood Count 1.82 #L Red Cell Distribution Width 15.1 H Sodium Level 146 H Total Bilirubin 0.0 L Total Protein 5.9 #L Troponin I 0.074 White Blood Count 8.1 # Activated Partial Thromboplast Time 50.8 H INR International Normalized Ratio 2.52 Prothrombin Time 27.5 H Prothrombin Time Ratio 2.1 Test 07/31/16 22:30 08/01/16 02:45 08/01/16 05:29 08/01/16 10:23 Alanine Aminotransferase (ALT/SGPT) 25 Albumin 4.1 Albumin/Globulin Ratio 1.17 Alkaline Phosphatase 72 # Anion Gap 19 H 20 H Aspartate Amino Transf (AST/SGOT) 29 # Basophils # 0.1 0.0 Basophils % 0.7 0.0 Blood Morphology Comment Blood Urea Nitrogen 19 21 H Calcium Level 8.4 # 8.5 Carbon Dioxide Level 26 # 28 Chloride Level 97 # 98 Creatinine 2.32 H 2.50 H Direct Bilirubin 0.00 Eosinophils # 0.0 0.0 Eosinophils % 0.0 0.1 Globulin 3.50 H Glucose Level 179 193 Hematocrit 31.9 #L 31.5 L Hemoglobin 10.4 #L 10.4 L Indirect Bilirubin 0.4 Lymphocytes # 0.5 L 0.4 L Lymphocytes % 3.5 L 4.2 L Mean Corpuscular Hemoglobin 31.9 32.6 Mean Corpuscular Hemoglobin Concent 32.5 33.1 Mean Corpuscular Volume 98.3 98.4 Mean Platelet Volume 6.9 L 8.1 Monocytes # 1.0 H 0.3 Monocytes % 6.3 2.8 Neutrophils # 13.5 H 9.4 H Neutrophils % 89.5 H 92.9 H Nucleated Red Blood Cells # 0.0 0.0 Nucleated Red Blood Cells % 0.0 0.0 Platelet Count 128 #L 110 L Potassium Level 3.5 3.9 Red Blood Count 3.24 #L 3.20 L Red Cell Distribution Width 14.5 14.9 H Sodium Level 138 142 Total Bilirubin 0.4 Total Protein 7.6 # White Blood Count 15.1 #H 10.1 # Troponin I 0.121 *H 0.138 *H Creatinine Kinase MB (Mass) 0.93 0.79 INR International Normalized Ratio 2.33 Prothrombin Time 25.8 H Prothrombin Time Ratio 2.0 Medications Medications Current Medications Acetaminophen (Tylenol Tab) 650 mg Q6H PRN PO PAIN1-3/FEVER ABOVE 100 Last administered on 07/29/16at 13:38; Admin Dose 650 MG; Start 07/26/16 at 09:00 Duloxetine HCl (Cymbalta) 90 mg DAILY PO Last administered on 07/31/16 09:00 ; Admin Dose 90 MG; Start 07/26/16 at 10:00 Fluticasone Propionate (Flonase 0.05% Nasal) 1 spray BID NASAL Last administered on 07/31/16 09:01; Admin Dose 1 SPRAY; Start 07/26/16 at 10:00 Guaifenesin (Robitussin Liquid Cup) 100 mg Q4 PRN PO COUGH Last administered on 07/29/16at 00:53; Admin Dose 100 MG; Start 07/26/16 at 09:00 Acetaminophen/ Hydrocodone Bitart ([place] (5/325)) 1 tab Q4 PRN PO WSOB Last administered on 07/31/16 15:01; Admin Dose 1 TAB; Start 07/26/16 at 09:00 Lactobacillus Acidoph/Bulgaricus (Floranex) 1 tab DAILY PO Last administered on 07/31/16 09:01; Admin Dose 1 TAB; Start 07/26/16 at 10:00 Lorazepam (Ativan) 1 mg Q6 PRN PO ANXIETY Last administered on 07/31/16 14:18 ; Admin Dose 1 MG; Start 07/26/16 at 09:00 Pantoprazole (Protonix Tab) 40 mg DAILY PO Last administered on 07/31/16 09: 01; Admin Dose 40 MG; Start 07/26/16 at 10:00 Polyethylene Glycol (Miralax) 17 gm DAILY PO Last administered on 07/31/16 09 :01; Admin Dose 17 GM; Start 07/26/16 at 09:00 Sildenafil Citrate (Revatio) 20 mg BID PO Last administered on 07/30/16 08:45 ; Admin Dose 20 MG; Start 07/26/16 at 18:00 Epoetin [place] (Epogen (Esrd)) 10,000 units MoWeFr@17 SC Last administered on 17:52; Admin Dose 10,000 UNITS; Start 07/27/16 at 17:00 Multivit/Ca Carb/ B Cmplx/FA/Prenat (Cheryl-Darcie) 1 tab DAILY PO Last administered on 07/31/16 09:01; Admin Dose 1 TAB; Start 07/27/16 at 09:00 Aspirin (Halfprin) 81 mg DAILY PO Last administered on 07/31/16at 09:01; Admin Dose 81 MG; Start 07/27/16 at 12:45 Hydralazine HCl 10 mg 10 mg Q6H PRN IV ELEVATED BLOOD PRESSURE Last administered on 07/29/16at 12:59; Admin Dose 10 MG; Start 07/29/16 at 13:00 Aztreonam/Sodium Chloride (Azactam/NS) 50 ml @ 100 mls/hr Q12 IV Last administered on 08/01/16at 11:09; Admin Dose 100 MLS/HR; Start 07/31/16 at 09: 30 Warfarin Sodium (Coumadin) 2 mg DAILY@17 PO Last administered on 07/31/16at 18: 00; Admin Dose 2 MG; Start 07/31/16 at 17:00 Carvedilol (Coreg) 6.25 mg BID PO ; Start 07/31/16 at 21:00 Methylprednisolone Sodium Succinate 40 mg 40 mg Q6 IV Last administered on at 06:10; Admin Dose 40 MG; Start 08/01/16 at 00:00 Propofol (Diprivan) 100 ml @ 3.078 mls/ hr Q12H IV Last administered on at 23:47; Admin Dose 15.39 MLS/HR; Start 07/31/16 at 22:30 Solo Leon DO Aug 01, 2016 13:32
--- NOTE | 2016-08-01 15:35 | CONS ---
Date/Time of Note Date/Time of Note DATE: 08/01/16 TIME: 15:34 Assessment/Plan Assessment/Plan Additional Assessment/Plan assessment/impression - fever on 07/29/2016 - recent RUE cellulitis complicated by axillary/cephalic venous thrombosis - pain from the skin of posterior scalp: on physical exam, I did not detect evidence of cellulitis - ESRD on HD - Diastolic CHF - CAD with Hx PCI - Pulmonary HTN - coagulopathy d/t warfarin - PAD with Hx Left BKA - PCN allergic - parkinson's recommendations: - f/u final microbiological data: blood cx negative to date. Urine culture N/A (pt likely anuric per RN as straight cath had been ordered) - continue IV vancomycin and aztreonem (07/29/16-) empirically Consultation Date/Type/Reason Admit Date/Time Jul 26, 2016 at 01:55 Initial Consult Date 07/29/16 Type of Consultation: id Referring Provider: GRACIE KATHLEEN 24 HR Interval Summary Subjective hx not possible: pt non-verbal Exam/Review of Systems Vital Signs Vitals Vital Signs Date Time Temp Pulse Resp B/P Pulse Ox O2 Delivery O2 Flow Rate FiO2 08/01/16 14:30 91 23 111/87 100 08/01/16 12:00 99.6 08/01/16 11:30 50 08/01/16 06:00 Mechanical Ventilator 07/31/16 20:03 15.0 Intake and Output 07/31/16 07/31/16 08/01/16 15:00 23:00 07:00 Intake Total 300 ml 280 ml 545 ml Output Total 3000 ml Balance 300 ml 280 ml -2455 ml Exam Constitutional: non-verbal Psych: no complaints Eyes: EOMI, nl conjunctiva Respiratory: clear to auscultation Cardiovascular: regular rate and rhythm Gastrointestinal: non-tender Results Result Diagram: 08/01/16 0529 08/01/16 0529 Results 24 hrs Laboratory Tests Test 07/31/16 20:03 07/31/16 21:28 07/31/16 21:29 07/31/16 22:09 Arterial Blood HCO3 31.2 H 24.9 Arterial Blood Base Excess 1.3 -0.6 Arterial Blood Oxygen Saturation 87.7 L 99.1 H Jerod Test ACCEPTAB ACCEPTAB Arterial Blood Gas Puncture Site Right Radial Right Radial Arterial Blood Carboxyhemoglobin 0.5 0.4 Arterial Blood Date Drawn 07/31/2016 8:06:00 PM 07/31/2016 9:50:55 PM Arterial Blood Methemoglobin 0.1 0.1 Arterial Blood pCO2 (Temp correct) 81.6 *H 44.7 Arterial Blood pH (Temp corrected) 7.201 *L 7.364 Arterial Blood pO2 (Temp corrected) 64.5 L 193.8 H Blood Gas A-a O2 Differential 566.9 H 474.5 H Blood Gas Critical Value Read Back Max FRAZIER MD Blood Gas Modality NON-REBREATHING MASK VENT - AC Blood Gas Notified Time 07/31/2016 8:13:00 PM 07/31/2016 10:06:47 PM Blood Gas Notified Whom RTR AA Blood Gas Specimen Source Blood arterial Blood arterial Blood Gas Temperature 37.0 37.0 FiO2 100.0 100.0 Oxyhemoglobin Percent 87.2 L 98.6 Total Hemoglobin 11.8 L 10.5 L Blood Gas Actual Respiration Rate 16 Blood Gas Inspiratory Pressure 27.0 Blood Gas Low PEEP Setting 0 Blood Gas Respiration Rate 16.0 Blood Gas Tidal Volume 550.0 Alanine Aminotransferase (ALT/SGPT) 22 Albumin 3.7 Albumin/Globulin Ratio 1.68 Alkaline Phosphatase 33 #L Anion Gap 22 H Aspartate Amino Transf (AST/SGOT) 13 #L B-Type Natriuretic Peptide 55777 H Basophils # 0.0 Basophils % 0.0 Blood Morphology Comment Blood Urea Nitrogen 12 Calcium Level 3.7 #*L Carbon Dioxide Level 16 #L Chloride Level 110 # Creatinine 1.45 H Direct Bilirubin 0.00 Eosinophils # 0.0 Eosinophils % 0.1 Globulin 2.20 Glucose Level 93 Hematocrit 18.0 #L Hemoglobin 6.0 #*L Indirect Bilirubin 0.0 Lymphocytes # 0.3 L Lymphocytes % 3.7 L Mean Corpuscular Hemoglobin 32.8 Mean Corpuscular Hemoglobin Concent 33.2 Mean Corpuscular Volume 98.5 Mean Platelet Volume 6.8 L Monocytes # 0.5 Monocytes % 6.0 Neutrophils # 7.3 Neutrophils % 90.2 H Nucleated Red Blood Cells # 0.0 Nucleated Red Blood Cells % 0.0 Platelet Count 72 #L Potassium Level 1.9 *L Red Blood Count 1.82 #L Red Cell Distribution Width 15.1 H Sodium Level 146 H Total Bilirubin 0.0 L Total Protein 5.9 #L Troponin I 0.074 White Blood Count 8.1 # Activated Partial Thromboplast Time 50.8 H INR International Normalized Ratio 2.52 Prothrombin Time 27.5 H Prothrombin Time Ratio 2.1 Test 07/31/16 22:30 08/01/16 02:45 08/01/16 05:29 08/01/16 10:23 Alanine Aminotransferase (ALT/SGPT) 25 Albumin 4.1 Albumin/Globulin Ratio 1.17 Alkaline Phosphatase 72 # Anion Gap 19 H 20 H Aspartate Amino Transf (AST/SGOT) 29 # Basophils # 0.1 0.0 Basophils % 0.7 0.0 Blood Morphology Comment Blood Urea Nitrogen 19 21 H Calcium Level 8.4 # 8.5 Carbon Dioxide Level 26 # 28 Chloride Level 97 # 98 Creatinine 2.32 H 2.50 H Direct Bilirubin 0.00 Eosinophils # 0.0 0.0 Eosinophils % 0.0 0.1 Globulin 3.50 H Glucose Level 179 193 Hematocrit 31.9 #L 31.5 L Hemoglobin 10.4 #L 10.4 L Indirect Bilirubin 0.4 Lymphocytes # 0.5 L 0.4 L Lymphocytes % 3.5 L 4.2 L Mean Corpuscular Hemoglobin 31.9 32.6 Mean Corpuscular Hemoglobin Concent 32.5 33.1 Mean Corpuscular Volume 98.3 98.4 Mean Platelet Volume 6.9 L 8.1 Monocytes # 1.0 H 0.3 Monocytes % 6.3 2.8 Neutrophils # 13.5 H 9.4 H Neutrophils % 89.5 H 92.9 H Nucleated Red Blood Cells # 0.0 0.0 Nucleated Red Blood Cells % 0.0 0.0 Platelet Count 128 #L 110 L Potassium Level 3.5 3.9 Red Blood Count 3.24 #L 3.20 L Red Cell Distribution Width 14.5 14.9 H Sodium Level 138 142 Total Bilirubin 0.4 Total Protein 7.6 # White Blood Count 15.1 #H 10.1 # Troponin I 0.121 *H 0.138 *H Creatinine Kinase MB (Mass) 0.93 0.79 INR International Normalized Ratio 2.33 Prothrombin Time 25.8 H Prothrombin Time Ratio 2.0 Medications Medications Current Medications Acetaminophen (Tylenol Tab) 650 mg Q6H PRN PO PAIN1-3/FEVER ABOVE 100 Last administered on 07/29/16at 13:38; Admin Dose 650 MG; Start 07/26/16 at 09:00 Duloxetine HCl (Cymbalta) 90 mg DAILY PO Last administered on 08/01/16 14:24 ; Admin Dose 90 MG; Start 07/26/16 at 10:00 Fluticasone Propionate (Flonase 0.05% Nasal) 1 spray BID NASAL Last administered on 07/31/16 09:01; Admin Dose 1 SPRAY; Start 07/26/16 at 10:00 Guaifenesin (Robitussin Liquid Cup) 100 mg Q4 PRN PO COUGH Last administered on 07/29/16 00:53; Admin Dose 100 MG; Start 07/26/16 at 09:00 Acetaminophen/ Hydrocodone Bitart ([place] (5/325)) 1 tab Q4 PRN PO WSOB Last administered on 07/31/16 15:01; Admin Dose 1 TAB; Start 07/26/16 at 09:00 Lactobacillus Acidoph/Bulgaricus (Floranex) 1 tab DAILY PO Last administered on 08/01/16 14:24; Admin Dose 1 TAB; Start 07/26/16 at 10:00 Lorazepam (Ativan) 1 mg Q6 PRN PO ANXIETY Last administered on 07/31/16 14:18 ; Admin Dose 1 MG; Start 07/26/16 at 09:00 Pantoprazole (Protonix Tab) 40 mg DAILY PO Last administered on 07/31/16 09: 01; Admin Dose 40 MG; Start 07/26/16 at 10:00 Polyethylene Glycol (Miralax) 17 gm DAILY PO Last administered on 08/01/16 14 :23; Admin Dose 17 GM; Start 07/26/16 at 09:00 Sildenafil Citrate (Revatio) 20 mg BID PO Last administered on 07/30/16 08:45 ; Admin Dose 20 MG; Start 07/26/16 at 18:00 Epoetin [place] (Epogen (Esrd)) 10,000 units MoWeFr@17 SC Last administered on 17:52; Admin Dose 10,000 UNITS; Start 07/27/16 at 17:00 Multivit/Ca Carb/ B Cmplx/FA/Prenat ([place]heryl-Darcie) 1 tab DAILY PO Last administered on 08/01/16 14:24; Admin Dose 1 TAB; Start 07/27/16 at 09:00 Aspirin (Halfprin) 81 mg DAILY PO Last administered on 08/01/16at 14:24; Admin Dose 81 MG; Start 07/27/16 at 12:45 Hydralazine HCl 10 mg 10 mg Q6H PRN IV ELEVATED BLOOD PRESSURE Last administered on 07/29/16at 12:59; Admin Dose 10 MG; Start 07/29/16 at 13:00 Aztreonam/Sodium Chloride (Azactam/NS) 50 ml @ 100 mls/hr Q12 IV Last administered on 08/01/16at 11:09; Admin Dose 100 MLS/HR; Start 07/31/16 at 09: 30 Warfarin Sodium (Coumadin) 2 mg DAILY@17 PO Last administered on 07/31/16at 18: 00; Admin Dose 2 MG; Start 07/31/16 at 17:00 Carvedilol (Coreg) 6.25 mg BID PO ; Start 07/31/16 at 21:00 Methylprednisolone Sodium Succinate 40 mg 40 mg Q6 IV Last administered on at 14:18; Admin Dose 40 MG; Start 08/01/16 at 00:00 Propofol (Diprivan) 100 ml @ 3.078 mls/ hr Q12H IV Last administered on at 23:47; Admin Dose 15.39 MLS/HR; Start 07/31/16 at 22:30 Atorvastatin Calcium (Lipitor) 40 mg HS PO ; Start 08/01/16 at 21:00 JOYCE SOARES MD Aug 01, 2016 15:35
[2016-08-01] MEDS: WARFARIN 2 MG TAB PO SCH (17:57)
--- NOTE | 2016-08-01 18:07 | PN ---
Date/Time of Note Date/Time of Note DATE: 08/01/16 TIME: 18:01 Assessment/Plan VTE Prophylaxis VTE Prophylaxis Intervention: heparin, other (Coumadin) Lines/Catheters IV C[facility] Type [facility]from [facility] Peripheral IV Urinary Cath still in place: No Assessment/Plan Chief Complaint/Hosp Course 1. Acute respiratory failure, continue ventilator support, bronchodilators, steroids. 2. End-stage renal disease hemodialysis dependent. Dr. Bassett is following in nephrology consultation 3. Diastolic congestive heart failure. Continue to remove fluid was hemodialysis. 4. Partial right internal jugular DVT. Continue Coumadin. Continue daily PT PTT. 5. Coronary artery disease with history of PCI. 6. Depression. Continue Cymbalta 7. History of left hip fracture, treated conservatively. 8. Osteoporosis. 9. Pulmonary hypertension. Continue sildenafil. 10. Possible pneumonia, continue aztreonam and vancomycin. Dr. Reardon is following from infectious disease consultation. Protonix for peptic ulcer disease prophylaxis Further recommendations based on clinical course. Plan of care discussed with Dr. Miramontes. Problems: Subjective 24 Hr Interval Summary Free Text/Dictation Patient develop acute respiratory distress orally intubated and transferred in ICU patient also underwent dialysis yesterday, pending dialysis today. Patient is orally intubated sedated. Exam/Review of Systems Vital Signs Vitals Vital Signs Date Time Temp Pulse Resp B/P Pulse Ox O2 Delivery O2 Flow Rate FiO2 08/01/16 16:00 84 08/01/16 15:20 16 100 50 08/01/16 14:30 111/87 08/01/16 12:00 99.6 08/01/16 06:00 Mechanical Ventilator 07/31/16 20:03 15.0 Intake and Output 07/31/16 07/31/16 08/01/16 15:00 23:00 07:00 Intake Total 300 ml 280 ml 545 ml Output Total 3000 ml Balance 300 ml 280 ml -2455 ml Exam GENERAL: This is a well-developed, well-nourished male , orally intubated on vent. HEENT: Head is atraumatic, normocephalic. Pupils equal, round, reactive to light and accommodation. NECK: Supple, no cervical lymphadenopathy. R IJ TLC. CHEST: The patient with diminished air entry into the lungs. CARDIOVASCULAR: Normal S1, S2. No murmurs, gallops, clicks, rubs noted. ABDOMEN: Round, soft, nondistended, nontender. Bowel sounds present. There is no guarding, no rebound tenderness. EXTREMITIES: Left upper extremity with arteriovenous fistula with palpable thrill and audible bruit. The patient is status post left BKA. Right lower extremity with mild edema, present pulse. SKIN: There is no rash, petechiae noted. NEUROLOGIC: Sedated, easily arousable. Results Result Diagram: 08/01/16 0529 08/01/16 0529 Results 24 hrs Laboratory Tests Test 07/31/16 20:03 07/31/16 21:28 07/31/16 21:29 07/31/16 22:09 Arterial Blood HCO3 31.2 H 24.9 Arterial Blood Base Excess 1.3 -0.6 Arterial Blood Oxygen Saturation 87.7 L 99.1 H Jerod Test ACCEPTAB ACCEPTAB Arterial Blood Gas Puncture Site Right Radial Right Radial Arterial Blood Carboxyhemoglobin 0.5 0.4 Arterial Blood Date Drawn 07/31/2016 8:06:00 PM 07/31/2016 9:50:55 PM Arterial Blood Methemoglobin 0.1 0.1 Arterial Blood pCO2 (Temp correct) 81.6 *H 44.7 Arterial Blood pH (Temp corrected) 7.201 *L 7.364 Arterial Blood pO2 (Temp corrected) 64.5 L 193.8 H Blood Gas A-a O2 Differential 566.9 H 474.5 H Blood Gas Critical Value Read Back Max FRAZIER MD Blood Gas Modality NON-REBREATHING MASK VENT - AC Blood Gas Notified Time 07/31/2016 8:13:00 PM 07/31/2016 10:06:47 PM Blood Gas Notified Whom RTR AA Blood Gas Specimen Source Blood arterial Blood arterial Blood Gas Temperature 37.0 37.0 FiO2 100.0 100.0 Oxyhemoglobin Percent 87.2 L 98.6 Total Hemoglobin 11.8 L 10.5 L Blood Gas Actual Respiration Rate 16 Blood Gas Inspiratory Pressure 27.0 Blood Gas Low PEEP Setting 0 Blood Gas Respiration Rate 16.0 Blood Gas Tidal Volume 550.0 Alanine Aminotransferase (ALT/SGPT) 22 Albumin 3.7 Albumin/Globulin Ratio 1.68 Alkaline Phosphatase 33 #L Anion Gap 22 H Aspartate Amino Transf (AST/SGOT) 13 #L B-Type Natriuretic Peptide 29266 H Basophils # 0.0 Basophils % 0.0 Blood Morphology Comment Blood Urea Nitrogen 12 Calcium Level 3.7 #*L Carbon Dioxide Level 16 #L Chloride Level 110 # Creatinine 1.45 H Direct Bilirubin 0.00 Eosinophils # 0.0 Eosinophils % 0.1 Globulin 2.20 Glucose Level 93 Hematocrit 18.0 #L Hemoglobin 6.0 #*L Indirect Bilirubin 0.0 Lymphocytes # 0.3 L Lymphocytes % 3.7 L Mean Corpuscular Hemoglobin 32.8 Mean Corpuscular Hemoglobin Concent 33.2 Mean Corpuscular Volume 98.5 Mean Platelet Volume 6.8 L Monocytes # 0.5 Monocytes % 6.0 Neutrophils # 7.3 Neutrophils % 90.2 H Nucleated Red Blood Cells # 0.0 Nucleated Red Blood Cells % 0.0 Platelet Count 72 #L Potassium Level 1.9 *L Red Blood Count 1.82 #L Red Cell Distribution Width 15.1 H Sodium Level 146 H Total Bilirubin 0.0 L Total Protein 5.9 #L Troponin I 0.074 White Blood Count 8.1 # Activated Partial Thromboplast Time 50.8 H INR International Normalized Ratio 2.52 Prothrombin Time 27.5 H Prothrombin Time Ratio 2.1 Test 07/31/16 22:30 08/01/16 02:45 08/01/16 05:29 08/01/16 10:23 Alanine Aminotransferase (ALT/SGPT) 25 Albumin 4.1 Albumin/Globulin Ratio 1.17 Alkaline Phosphatase 72 # Anion Gap 19 H 20 H Aspartate Amino Transf (AST/SGOT) 29 # Basophils # 0.1 0.0 Basophils % 0.7 0.0 Blood Morphology Comment Blood Urea Nitrogen 19 21 H Calcium Level 8.4 # 8.5 Carbon Dioxide Level 26 # 28 Chloride Level 97 # 98 Creatinine 2.32 H 2.50 H Direct Bilirubin 0.00 Eosinophils # 0.0 0.0 Eosinophils % 0.0 0.1 Globulin 3.50 H Glucose Level 179 193 Hematocrit 31.9 #L 31.5 L Hemoglobin 10.4 #L 10.4 L Indirect Bilirubin 0.4 Lymphocytes # 0.5 L 0.4 L Lymphocytes % 3.5 L 4.2 L Mean Corpuscular Hemoglobin 31.9 32.6 Mean Corpuscular Hemoglobin Concent 32.5 33.1 Mean Corpuscular Volume 98.3 98.4 Mean Platelet Volume 6.9 L 8.1 Monocytes # 1.0 H 0.3 Monocytes % 6.3 2.8 Neutrophils # 13.5 H 9.4 H Neutrophils % 89.5 H 92.9 H Nucleated Red Blood Cells # 0.0 0.0 Nucleated Red Blood Cells % 0.0 0.0 Platelet Count 128 #L 110 L Potassium Level 3.5 3.9 Red Blood Count 3.24 #L 3.20 L Red Cell Distribution Width 14.5 14.9 H Sodium Level 138 142 Total Bilirubin 0.4 Total Protein 7.6 # White Blood Count 15.1 #H 10.1 # Troponin I 0.121 *H 0.138 *H Creatinine Kinase MB (Mass) 0.93 0.79 INR International Normalized Ratio 2.33 Prothrombin Time 25.8 H Prothrombin Time Ratio 2.0 Medications Medications Current Medications Acetaminophen (Tylenol Tab) 650 mg Q6H PRN PO PAIN1-3/FEVER ABOVE 100 Last administered on 07/29/16 13:38; Admin Dose 650 MG; Start 07/26/16 at 09:00 Duloxetine HCl (Cymbalta) 90 mg DAILY PO Last administered on 08/01/16 14:24 ; Admin Dose 90 MG; Start 07/26/16 at 10:00 Fluticasone Propionate (Flonase 0.05% Nasal) 1 spray BID NASAL Last administered on 07/31/16 09:01; Admin Dose 1 SPRAY; Start 07/26/16 at 10:00 Guaifenesin (Robitussin Liquid Cup) 100 mg Q4 PRN PO COUGH Last administered on 07/29/16 00:53; Admin Dose 100 MG; Start 07/26/16 at 09:00 Acetaminophen/ Hydrocodone Bitart ([place] (5/325)) 1 tab Q4 PRN PO WSOB Last administered on 07/31/16 15:01; Admin Dose 1 TAB; Start 07/26/16 at 09:00 Lactobacillus Acidoph/Bulgaricus (Floranex) 1 tab DAILY PO Last administered on 08/01/16 14:24; Admin Dose 1 TAB; Start 07/26/16 at 10:00 Lorazepam (Ativan) 1 mg Q6 PRN PO ANXIETY Last administered on 07/31/16 14:18 ; Admin Dose 1 MG; Start 07/26/16 at 09:00 Pantoprazole (Protonix Tab) 40 mg DAILY PO Last administered on 07/31/16 09: 01; Admin Dose 40 MG; Start 07/26/16 at 10:00 Polyethylene Glycol (Miralax) 17 gm DAILY PO Last administered on 08/01/16at 14 :23; Admin Dose 17 GM; Start 07/26/16 at 09:00 Sildenafil Citrate (Revatio) 20 mg BID PO Last administered on 07/30/16 08:45 ; Admin Dose 20 MG; Start 07/26/16 at 18:00 Epoetin [place] (Epogen (Esrd)) 10,000 units MoWeFr@17 SC Last administered on 17:52; Admin Dose 10,000 UNITS; Start 07/27/16 at 17:00 Multivit/Ca Carb/ B Cmplx/FA/Prenat (Cheryl-Darcie) 1 tab DAILY PO Last administered on 08/01/16at 14:24; Admin Dose 1 TAB; Start 07/27/16 at 09:00 Aspirin (Halfprin) 81 mg DAILY PO Last administered on 08/01/16at 14:24; Admin Dose 81 MG; Start 07/27/16 at 12:45 Hydralazine HCl 10 mg 10 mg Q6H PRN IV ELEVATED BLOOD PRESSURE Last administered on 07/29/16at 12:59; Admin Dose 10 MG; Start 07/29/16 at 13:00 Aztreonam/Sodium Chloride (Azactam/NS) 50 ml @ 100 mls/hr Q12 IV Last administered on 08/01/16at 11:09; Admin Dose 100 MLS/HR; Start 07/31/16 at 09: 30 Warfarin Sodium (Coumadin) 2 mg DAILY@17 PO Last administered on 07/31/16at 18: 00; Admin Dose 2 MG; Start 07/31/16 at 17:00 Carvedilol (Coreg) 6.25 mg BID PO ; Start 07/31/16 at 21:00 Methylprednisolone Sodium Succinate 40 mg 40 mg Q6 IV Last administered on at 14:18; Admin Dose 40 MG; Start 08/01/16 at 00:00 Propofol (Diprivan) 100 ml @ 3.078 mls/ hr Q12H IV Last administered on at 23:47; Admin Dose 15.39 MLS/HR; Start 07/31/16 at 22:30 Atorvastatin Calcium (Lipitor) 40 mg HS PO ; Start 08/01/16 at 21:00 MARY DOMINGUEZ Aug 01, 2016 18:07 MARY DOMINGUEZ Aug 01, 2016 18:07
[2016-08-01] MEDS: EPOETIN 10000 UNITS/1 ML INJ (ESRD) SC SCH (18:08)
[2016-08-01] MEDS: LORAZEPAM 1 MG TAB PO PRN (20:18)
[2016-08-01] MEDS ORDERED: ATORVASTATIN 40 MG TAB PO SCH (21:00)
[2016-08-01] MEDS: FENTAnyl 1,000 MCG in DEXTROSE 5% 80 ML IV SCH (23:21)
[2016-08-01] MEDS: MIDAZOLAM 50 MG in DEXTROSE 5% 40 ML IV SCH (23:22)
[2016-08-02] VITALS (67 sets, daily range): BP systolic 63–128; BP diastolic 47–73; PULSE 80–143; RESP 15–35
[2016-08-02] MEDS: ALBUTEROL HFA 8 GM INHALER INH SCH ×6 (00:53→20:54)
[2016-08-02] MEDS: MIDAZOLAM 50 MG in DEXTROSE 5% 40 ML IV SCH ×3 (04:39→21:24)
[2016-08-02 06:21] LABS: BASOPHILS % 0.1 % (0.0-2.0); HEMATOCRIT 30.4 % (42.0-52.0); HEMOGLOBIN 10.2 g/dl (14.0-18.0); LYMPHOCYTES # 0.5 10^3/ul (0.8-2.9); MEAN CORPUSCULAR HEMOGLOBIN 32.5 pg (29.0-33.0); MEAN CORPUSCULAR HGB CONC 33.4 g/dl (32.0-37.0); MEAN CORPUSCULAR VOLUME 97.2 fl (82.0-101.0); MEAN PLATELET VOLUME 7.7 fl (7.4-10.4); MONOCYTE # 0.2 10^3/ul (0.3-0.9); NEUTROPHIL # 5.2 10^3/ul (1.6-7.5); NEUTROPHILS % 86.9 % (39.0-77.0); PLATELET COUNT 125 10^3/UL (140-440); RED BLOOD COUNT 3.13 10^6/ul (4.70-6.10); RED CELL DISTRIBUTION WIDTH 14.9 % (11.5-14.5)
[2016-08-02 06:25] LABS: CONDITION 1; LH ANALYZER COMMENTS 1
[2016-08-02 06:30] LABS: INR 2.85; PROTIME 30.3 Sec (12.2-14.2); PT RATIO 2.4
[2016-08-02 06:41] LABS: POTASSIUM 3.5 mmol/L (3.5-5.1)
[2016-08-02] MEDS: SEVELAMER CARBONATE 0.8 GM PKT PO SCH (06:41)
[2016-08-02] MEDS: METHYLPREDNISOLONE 40 MG INJ IV SCH ×3 (06:41→17:30)
[2016-08-02 06:44] LABS: CREATININE 3.56 mg/dl (0.61-1.24); PHOSPHORUS 2.5 mg/dl (2.5-4.9)
[2016-08-02 06:45] LABS: CALCIUM 8.5 mg/dl (8.4-10.2); MAGNESIUM 2.1 mg/dl (1.7-2.5)
[2016-08-02] MEDS ORDERED: ALBUMIN HUMAN 25% 100 ML IV ONE (07:00)
[2016-08-02] MEDS: PANTOPRAZOLE (EC) 40 MG TAB PO SCH (09:00)
[2016-08-02] MEDS ORDERED: SILDENAFIL 20 MG TAB GTB SCH (09:00)
[2016-08-02] MEDS ORDERED: GUAIFENESIN 20 MG/ML 5ML CUP GTB PRN (09:00)
[2016-08-02] MEDS: POLYETHYLENE GLYCOL 17 GM PACKET GTB SCH (09:00)
[2016-08-02] MEDS: AZTREONAM 0.5 GM in SOD CHLORIDE 0.9% 50 ML IV SCH ×2 (09:07→21:23)
[2016-08-02] MEDS: FLUTICASONE 0.05% 16 GM NAS SPRAY NASAL SCH ×2 (09:09→21:00)
--- NOTE | 2016-08-02 09:18 | RADRPT ---
Vent Rate: 118 bpm RR Interval: 0 msec [place] Interval: 150 msec QRS Duration: 146 msec QT Interval: 346 msec QTC Interval: 484 msec P-R-T [place]: 1 - 0 - 60 degrees Sinus tachycardia with premature atrial complexes and premature ventricular complexes or fusion complexes Possible Left atrial enlargement Right bundle branch block , plus right ventricular hypertrophy Inferior infarct , age undetermined Anterolateral infarct , age undetermined Abnormal ECG Electronically Signed By: Errol Landon [id number]
--- NOTE | 2016-08-02 09:19 | RADRPT ---
Vent Rate: 81 bpm RR Interval: 0 msec DC Interval: 148 msec QRS Duration: 140 msec QT Interval: 428 msec QTC Interval: 497 msec P-R-T [place]: 54 - 0 - 8 degrees Normal sinus rhythm Right bundle branch block , plus right ventricular hypertrophy Abnormal ECG Electronically Signed By: Errol Landon [id number]
[2016-08-02 09:23] LABS: AADO2 Arterial 107.4 mmHg (7.0-24.0); Allen Test ACCEPTAB; Arterial Base Excess 0.8 mmol/L (-3.0-3); Arterial COHb 0.1 % (0.0-3.0); Arterial HCO3 24.7 mmol/L (22.0-26.0); Arterial MetHb 0.3 % (0.0-1.5); Arterial Total Hemglobin 10.5 g/dl (12.0-18.0); Blood Gas Low PEEP Setting 0 cmH2O; MODE VENT - AC
[2016-08-02] MEDS ORDERED: NORepinephrine 8MG/250 ML (PMX 250 ML IV SCH (10:00)
--- NOTE | 2016-08-02 10:33 | CONS ---
Date/Time of Note Date/Time of Note DATE: 08/02/16 TIME: 10:31 Assessment/Plan Assessment/Plan Additional Assessment/Plan assessment/impression - acute hypoxemic respiratory failure - intubated 07/31 - Pulm edema, right lower lobe infiltrate, possible aspiration pneumonia per Pulmonary - persistent hypotension after HD - now on low dose Levophed 08/02 - fever on 07/29/2016 - recent RUE cellulitis complicated by axillary/cephalic venous thrombosis - toxic metabolic encephalopathy - ESRD on HD - Diastolic CHF - CAD with Hx PCI - mild hypertroponinemia in setting of CARLEY on CKD - Pulmonary HTN - coagulopathy d/t warfarin - PAD with Hx Left BKA - PCN allergic - parkinson's recommendations: - f/u final microbiological data: blood cx negative to date. Urine culture N/A (pt likely anuric per RN as straight cath had been ordered) - continue IV vancomycin and aztreonem (07/29/16-) empirically - check sputum cx - check procalcitonin - monitor mental status closely - wean off pressors as tolerated - vent management and weaning per Pulmonary - Above d/w Dr. Alexander - critical care time spent was 50 minutes Consultation Date/Type/Reason Admit Date/Time Jul 26, 2016 at 01:55 Initial Consult Date 07/29/16 Type of Consultation: Infectious Disease Referring Provider: GRACIE KATHLEEN 24 HR Interval Summary Free Text/Dictation Went into respiratory distress and was intubated on the night of 07/31. Was hypotensive after HD this AM and BP was marginal but SBP dropped 70's and pt was placed on Levophed at 2mcg and pt remains lethargic per JUAN MIGUEL Zuleta. Exam/Review of Systems Vital Signs Vitals Vital Signs Date Time Temp Pulse Resp B/P Pulse Ox O2 Delivery O2 Flow Rate FiO2 08/02/16 09:32 92 16 100 40 08/02/16 08:00 97.5 63/53 Mechanical Ventilator 07/31/16 20:03 15.0 Intake and Output 08/01/16 08/01/16 08/02/16 15:00 23:00 07:00 Intake Total 74 ml 573 ml 563.08 ml Output Total 0 ml Balance 74 ml 573 ml 563.08 ml Exam Constitutional: Lethargic, frail, other (orally intubated) Head: atraumatic, normocephalic Neck: supple, no bruits Respiratory: diminished breath sounds. No wheezing Cardiovascular: regular rate and rhythm Gastrointestinal: soft, other (OGT is clamped and intact, Lower abdominal ecchymosis spreading horizontally at panus edge). Extremities: edema (trace on RLE), other (LLE BKA noted. LUE AVF with + bruit/ thrill) Neurological: lethargic Skin: ecchymosis (few scattered), nl turgor, other (RUE HL c/d/i) Results Result Diagram: 08/02/1655708/02/1658 Results 24 hrs Laboratory Tests Test 08/01/16 19:30 08/02/16 05:58 08/02/16 07:00 Troponin I 0.086 Anion Gap 22 H Basophils # 0.0 Basophils % 0.1 Blood Morphology Comment Blood Urea Nitrogen 44 #H Calcium Level 8.5 Carbon Dioxide Level 22 Chloride Level 100 Creatinine 3.56 #H Eosinophils # 0.0 Eosinophils % 0.0 Glucose Level 271 H Hematocrit 30.4 L Hemoglobin 10.2 L INR International Normalized Ratio 2.85 Lymphocytes # 0.5 L Lymphocytes % 9.0 L Magnesium Level 2.1 Mean Corpuscular Hemoglobin 32.5 Mean Corpuscular Hemoglobin Concent 33.4 Mean Corpuscular Volume 97.2 Mean Platelet Volume 7.7 Monocytes # 0.2 L Monocytes % 4.0 Neutrophils # 5.2 Neutrophils % 86.9 H Nucleated Red Blood Cells # 0.0 Nucleated Red Blood Cells % 0.0 Phosphorus Level 2.5 Platelet Count 125 L Potassium Level 3.5 Prothrombin Time 30.3 H Prothrombin Time Ratio 2.4 Red Blood Count 3.13 L Red Cell Distribution Width 14.9 H Sodium Level 140 White Blood Count 6.0 # Arterial Blood HCO3 24.7 Arterial Blood Base Excess 0.8 Arterial Blood Oxygen Saturation 98.4 H Jerod Test ACCEPTAB Arterial Blood Gas Puncture Site Right Radial Arterial Blood Carboxyhemoglobin 0.1 Arterial Blood Date Drawn 08/02/2016 9:10:26 AM Arterial Blood Methemoglobin 0.3 Arterial Blood pCO2 (Temp correct) 36.9 Arterial Blood pH (Temp corrected) 7.444 Arterial Blood pO2 (Temp corrected) 135.4 H Blood Gas A-a O2 Differential 107.4 H Blood Gas Actual Respiration Rate 16 Blood Gas Low PEEP Setting 0 Blood Gas Modality VENT - AC Blood Gas Notified Time 08/02/2016 9:23:25 AM Blood Gas Notified Whom JLD Blood Gas Respiration Rate 16.0 Blood Gas Specimen Source Blood arterial Blood Gas Temperature 37.0 Blood Gas Tidal Volume 550.0 FiO2 40.0 Oxyhemoglobin Percent 98.0 Total Hemoglobin 10.5 L Medications Medications Current Medications Fluticasone Propionate (Flonase 0.05% Nasal) 1 spray BID NASAL Last administered on 08/02/16at 09:09; Admin Dose 1 SPRAY; Start 07/26/16 at 10:00 Epoetin [place] (Epogen (Esrd)) 10,000 units MoWeFr@17 SC Last administered on at 18:08; Admin Dose 10,000 UNITS; Start 07/27/16 at 17:00 Hydralazine HCl 10 mg 10 mg Q6H PRN IV ELEVATED BLOOD PRESSURE Last administered on 07/29/16at 12:59; Admin Dose 10 MG; Start 07/29/16 at 13:00 Aztreonam/Sodium Chloride (Azactam/NS) 50 ml @ 100 mls/hr Q12 IV Last administered on 08/02/16at 09:07; Admin Dose 100 MLS/HR; Start 07/31/16 at 09: 30 Methylprednisolone Sodium Succinate 40 mg 40 mg Q6 IV Last administered on at 06:41; Admin Dose 40 MG; Start 08/01/16 at 00:00 Midazolam HCl 50 mg/Dextrose 50 ml @ 1 mls/hr TITRATE IV Last administered on 08/02/16at 04:39; Admin Dose 5 MLS/HR; Start 08/01/16 at 23:00 Fentanyl/Dextrose (D5W) 100 ml @ 2.6 mls/hr TITRATE IV Last administered on at 23:21; Admin Dose 2.6 MLS/HR; Start 08/01/16 at 23:00 Acetaminophen (Tylenol Tab) 650 mg Q6H PRN GTB PAIN1-3/FEVER ABOVE 100; Start 08/02/16 at 15:00 Atorvastatin Calcium (Lipitor) 40 mg HS GTB ; Start 08/02/16 at 21:00 Carvedilol (Coreg) 6.25 mg BID GTB ; Start 08/02/16 at 09:00 Duloxetine HCl (Cymbalta) 90 mg DAILY GTB ; Start 08/02/16 at 09:00 Guaifenesin (Robitussin Liquid Cup) 100 mg Q4 PRN GTB COUGH; Start 08/02/16 at 09:00 Acetaminophen/ Hydrocodone Bitart ([place] (5/325)) 1 tab Q4 PRN GTB [facility]; Start 08/02/16 at 09:00 Lactobacillus Acidoph/Bulgaricus (Floranex) 1 tab DAILY GTB ; Start 08/02/16 at 09:00 Lorazepam (Ativan) 1 mg Q6H PRN GTB ANXIETY; Start 08/02/16 at 09:00 Multivit/Ca Carb/ B Cmplx/FA/Prenat (Cheryl-Darcie) 1 tab DAILY GTB ; Start at 09:00 Polyethylene Glycol (Miralax) 17 gm DAILY GTB ; Start 08/02/16 at 09:00 Sildenafil Citrate (Revatio) 20 mg BID GTB ; Start 08/02/16 at 09:00 Warfarin Sodium (Coumadin) 2 mg DAILY@17 GTB ; Start 08/02/16 at 17:00 Aspirin (Aspirin) 81 mg DAILY GTB ; Start 08/02/16 at 09:00 Lansoprazole 30 mg 30 mg DAILY@06 GTB ; Start 08/02/16 at 10:00 Norepinephrine 250 ml @ 1.875 mls/ hr TITRATE IV Last administered on at 10:05; Admin Dose 3.75 MLS/HR; Start 08/02/16 at 10:00; Stop 08/02/16 at 15:00 Norepinephrine/ Dextrose (Levophed/D5W) 500 ml @ 1.87 mls/hr TITRATE IV ; Start 08/02/16 at 15:00 Procedures Procedures CXR 08/02/16: IMPRESSION: 1. Right upper and lower lobe interstitial opacities may reflect a combination of edema, atelectasis, and / or pneumonitis. Findings are significantly improved when compared to the prior examination. 2. Mild prominence of the interstitial markings, may reflect mild underlying interstitial edema or chronic lung changes. 3. Small bilateral pleural effusions. 4. Mild cardiomegaly and aortic atherosclerosis. 5. Tubes and lines, as described above. JERICHO [employer] Aug 02, 2016 10:33
--- NOTE | 2016-08-02 10:37 | CONS ---
Date/Time of Note Date/Time of Note DATE: 08/02/16 TIME: 10:35 Consult Date/Type/Reason Admit Date/Time Jul 26, 2016 at 01:55 Initial Consult Date 07/29/16 Type of Consultation: Pulm Ordering Provider: GRACIE KATHLEEN Subjective Intubated, sedation stopped, still somnolent No pressors Objective Vital Signs Date Time Temp Pulse Resp B/P Pulse Ox O2 Delivery O2 Flow Rate FiO2 08/02/16 09:32 92 16 100 40 08/02/16 08:00 97.5 63/53 Mechanical Ventilator 07/31/16 20:03 15.0 Intake and Output 08/01/16 08/01/16 08/02/16 15:00 23:00 07:00 Intake Total 74 ml 573 ml 563.08 ml Output Total 0 ml Balance 74 ml 573 ml 563.08 ml PHYSICAL EXAMINATION: GENERAL: Chronically ill appearing gentleman, comfortable at rest, no acute distress. on vent VITAL SIGNS: as above NECK: Supple. No JVD or lymphadenopathy. CARDIAC: S1, S2, no added sounds or murmurs. CHEST: Diminished air entry bilaterally. ABDOMEN: Soft, nontender. No guarding or rebound. EXTREMITIES: No cyanosis, clubbing, or edema. NEUROLOGIC: unable to assess Results/Medications Result Diagram: 08/02/16 0558 08/02/16 0558 Results 24 hrs Laboratory Tests Test 08/01/16 19:30 08/02/16 05:58 08/02/16 07:00 Troponin I 0.086 Anion Gap 22 H Basophils # 0.0 Basophils % 0.1 Blood Morphology Comment Blood Urea Nitrogen 44 #H Calcium Level 8.5 Carbon Dioxide Level 22 Chloride Level 100 Creatinine 3.56 #H Eosinophils # 0.0 Eosinophils % 0.0 Glucose Level 271 H Hematocrit 30.4 L Hemoglobin 10.2 L INR International Normalized Ratio 2.85 Lymphocytes # 0.5 L Lymphocytes % 9.0 L Magnesium Level 2.1 Mean Corpuscular Hemoglobin 32.5 Mean Corpuscular Hemoglobin Concent 33.4 Mean Corpuscular Volume 97.2 Mean Platelet Volume 7.7 Monocytes # 0.2 L Monocytes % 4.0 Neutrophils # 5.2 Neutrophils % 86.9 H Nucleated Red Blood Cells # 0.0 Nucleated Red Blood Cells % 0.0 Phosphorus Level 2.5 Platelet Count 125 L Potassium Level 3.5 Prothrombin Time 30.3 H Prothrombin Time Ratio 2.4 Red Blood Count 3.13 L Red Cell Distribution Width 14.9 H Sodium Level 140 White Blood Count 6.0 # Arterial Blood HCO3 24.7 Arterial Blood Base Excess 0.8 Arterial Blood Oxygen Saturation 98.4 H Jerod Test ACCEPTAB Arterial Blood Gas Puncture Site Right Radial Arterial Blood Carboxyhemoglobin 0.1 Arterial Blood Date Drawn 08/02/2016 9:10:26 AM Arterial Blood Methemoglobin 0.3 Arterial Blood pCO2 (Temp correct) 36.9 Arterial Blood pH (Temp corrected) 7.444 Arterial Blood pO2 (Temp corrected) 135.4 H Blood Gas A-a O2 Differential 107.4 H Blood Gas Actual Respiration Rate 16 Blood Gas Low PEEP Setting 0 Blood Gas Modality VENT - AC Blood Gas Notified Time 08/02/2016 9:23:25 AM Blood Gas Notified Whom JLD Blood Gas Respiration Rate 16.0 Blood Gas Specimen Source Blood arterial Blood Gas Temperature 37.0 Blood Gas Tidal Volume 550.0 FiO2 40.0 Oxyhemoglobin Percent 98.0 Total Hemoglobin 10.5 L Medications Current Medications Fluticasone Propionate (Flonase 0.05% Nasal) 1 spray BID NASAL Last administered on 08/02/16 09:09; Admin Dose 1 SPRAY; Start 07/26/16 at 10:00 Epoetin [place] (Epogen (Esrd)) 10,000 units MoWeFr@17 SC Last administered on 18:08; Admin Dose 10,000 UNITS; Start 07/27/16 at 17:00 Hydralazine HCl 10 mg 10 mg Q6H PRN IV ELEVATED BLOOD PRESSURE Last administered on 07/29/16at 12:59; Admin Dose 10 MG; Start 07/29/16 at 13:00 Aztreonam/Sodium Chloride (Azactam/NS) 50 ml @ 100 mls/hr Q12 IV Last administered on 08/02/16 09:07; Admin Dose 100 MLS/HR; Start 07/31/16 at 09: 30 Methylprednisolone Sodium Succinate 40 mg 40 mg Q6 IV Last administered on 06:41; Admin Dose 40 MG; Start 08/01/16 at 00:00 Midazolam HCl 50 mg/Dextrose 50 ml @ 1 mls/hr TITRATE IV Last administered on 08/02/16at 04:39; Admin Dose 5 MLS/HR; Start 08/01/16 at 23:00 Fentanyl/Dextrose (D5W) 100 ml @ 2.6 mls/hr TITRATE IV Last administered on at 23:21; Admin Dose 2.6 MLS/HR; Start 08/01/16 at 23:00 Acetaminophen (Tylenol Tab) 650 mg Q6H PRN GTB PAIN1-3/FEVER ABOVE 100; Start 08/02/16 at 15:00 Atorvastatin Calcium (Lipitor) 40 mg HS GTB ; Start 08/02/16 at 21:00 Carvedilol (Coreg) 6.25 mg BID GTB ; Start 08/02/16 at 09:00 Duloxetine HCl (Cymbalta) 90 mg DAILY GTB ; Start 08/02/16 at 09:00 Guaifenesin (Robitussin Liquid Cup) 100 mg Q4 PRN GTB COUGH; Start 08/02/16 at 09:00 Acetaminophen/ Hydrocodone Bitart ([place] (5/325)) 1 tab Q4 PRN GTB [facility]; Start 08/02/16 at 09:00 Lactobacillus Acidoph/Bulgaricus (Floranex) 1 tab DAILY GTB ; Start 08/02/16 at 09:00 Lorazepam (Ativan) 1 mg Q6H PRN GTB ANXIETY; Start 08/02/16 at 09:00 Multivit/Ca Carb/ B Cmplx/FA/Prenat (Cheryl-Darcie) 1 tab DAILY GTB ; Start at 09:00 Polyethylene Glycol (Miralax) 17 gm DAILY GTB ; Start 08/02/16 at 09:00 Sildenafil Citrate (Revatio) 20 mg BID GTB ; Start 08/02/16 at 09:00 Warfarin Sodium (Coumadin) 2 mg DAILY@17 GTB ; Start 08/02/16 at 17:00 Aspirin (Aspirin) 81 mg DAILY GTB ; Start 08/02/16 at 09:00 Lansoprazole 30 mg 30 mg DAILY@06 GTB ; Start 08/02/16 at 10:00 Norepinephrine 250 ml @ 1.875 mls/ hr TITRATE IV Last administered on at 10:05; Admin Dose 3.75 MLS/HR; Start 08/02/16 at 10:00; Stop 08/02/16 at 15:00 Norepinephrine/ Dextrose (Levophed/D5W) 500 ml @ 1.87 mls/hr TITRATE IV ; Start 08/02/16 at 15:00 Assessment/Plan Chief Complaint/Hosp Course Assessment 1. Hypoxemic resp failure 2. Pulm edema, right lower lobe infiltrate, possible aspiration pneumonia. 3. Encephalopathy toxic metabolic 4. Diastolic dysf ? Plan 1. Continue Vent, cpap trial today. 2. Emergent HD 3, Aspiration precautions 4. DVT / GI prophylaxis. d/w staff Problems: VALERIE CAMARENA MD, [facility] Aug 02, 2016 10:37
--- NOTE | 2016-08-02 10:48 | CONS ---
DATE OF ADMISSION: 07/26/2016 DATE OF CONSULTATION: 08/02/2016 NEPHROLOGY CONSULTATION TYPE SUBJECTIVE: The patient remains intubated in the ICU, off pressors. He is currently on dialy sis. The etiology of his respiratory failure to me is unclear at this time. I wonder about whether he wilson d flash pulmonary edema to explain his sudden dyspnea, requiring intubation. He is currently sedate d. PHYSICAL EXAMINATION: VITAL SIGNS: He is afebrile. Blood pressure is 80/60 while on dialysis. He is peripherally warm. Heart rate is in the 80s, in a sinus rhythm. Respirations are controlled on the vent. O2 saturati on is 100% on 40%. SKIN: Warm, perfused. No duskiness, no lesions. HEAD: Normocephalic. Mouth, ET tube in place. NECK: No adenopathy. LUNGS: Clear anteriorly. HEART: S1, S2. No new murmurs. ABDOMEN: Soft. EXTREMITIES: Well-functioning left upper extremity AV fistula. He is status post a left BKA. LABORATORY DATA: Potassium is 3.5, calcium 8.5, phosphorus 2.5, magnesium is 2.1. White count norm al at 6, hemoglobin 10.2, hematocrit 30.4, platelet count 125,000. INR is 2.85. Blood cultures are negative after 3 days. PROBLEM LIST: 1. Respiratory failure. Currently intubated. Etiology is unclear to me. Chest x-ray has showed s ome infiltrates, but nothing severely changed from prior. 2. End-stage renal disease. Currently maintained on outpatient dialysis. No evidence of worsening congestive heart failure. 3. Status post troponins x3, without significant elevation, albeit I still wonder about flash pulmo nary edema and diffuse coronary artery disease. 4. History of congestive heart failure in the past. Currently inactive. 5. Diabetes mellitus. RECOMMENDATIONS: 1. Continue with ultrafiltration as tolerated. 2. Wean per pulmonary. 3. Await cardiology followup re: possibility of flash pulmonary explaining current respiratory fail ure. Dictated By: MOSES GUAJARDO MD, MM/OLESYA Conf#: [id number] DID#: [id number]
[2016-08-02] MEDS: ASPIRIN 81 MG TAB GTB SCH (10:55)
[2016-08-02] MEDS: LANSOPRAZOLE 30 MG CAP GTB SCH (10:55)
[2016-08-02] MEDS: LACTOBACILLUS CHEW TAB GTB SCH (10:55)
[2016-08-02] MEDS: MULTIVIT/CA CARB/B CMPLX/FA TAB GTB SCH (10:55)
--- NOTE | 2016-08-02 10:56 | RADRPT ---
PROCEDURE: XR Chest. CLINICAL INDICATION: Shortness of breath TECHNIQUE: An AP view of the chest was obtained. COMPARISON: Chest x-ray dated 07/31/2016 FINDINGS: The endotracheal tube tip is approximately 3.5 cm above the sofie. The tip of the enteric tube pr ojects over the left upper quadrant. Lung volumes are low. There is prominence of the interstitial markings. There are right upper and right lower lobe interstitial opacities. There is blunting of the costophrenic angles. No pneumotho rax is seen. The cardiomediastinal silhouette is mildly enlarged . Calcifications are seen within the aortic arch. The osseous structures demonstrate senescent changes. IMPRESSION: 1. Right upper and lower lobe interstitial opacities may reflect a combination of edema, atelectasi s, and / or pneumonitis. Findings are significantly improved when compared to the prior examination . 2. Mild prominence of the interstitial markings, may reflect mild underlying interstitial edema or chronic lung changes. 3. Small bilateral pleural effusions. 4. Mild cardiomegaly and aortic atherosclerosis. 5. Tubes and lines, as described above. RPTAT: HH .Karen You MD, Date Time Electronically viewed and signed by .Karen You MD, on 08/02/2016 10:56 .G/
[2016-08-02] MEDS: SEVELAMER CARBONATE 0.8 GM PKT GTB SCH ×2 (11:44→17:30)
[2016-08-02] MEDS: DULOXETINE 30 MG CAP DR GTB SCH (11:45)
[2016-08-02] MEDS: LORAZEPAM 1 MG TAB GTB PRN (12:50)
[2016-08-02] MEDS: HYDROCODONE/APAP (5/325) TAB GTB PRN (12:50)
--- NOTE | 2016-08-02 14:08 | PN ---
Date/Time of Note Date/Time of Note DATE: 08/02/16 TIME: 14:00 Assessment/Plan Lines/Catheters IV Catheter Type (from [facility]): [facility] Urinary Cath still in place: No Assessment/Plan Assessment/Plan 1. Acute respiratory failure, continue ventilator support, bronchodilators, steroids. 2. End-stage renal disease hemodialysis dependent. Dr. Bassett is following in nephrology consultation 3. Diastolic congestive heart failure. Continue to remove fluid was hemodialysis. 4. Partial right internal jugular DVT. Continue Coumadin. Continue daily PT PTT. 5. Coronary artery disease with history of PCI. 6. Depression. Continue Cymbalta 7. History of left hip fracture, treated conservatively. 8. Osteoporosis. 9. Pulmonary hypertension. Continue sildenafil. 10. Possible pneumonia, continue aztreonam and vancomycin. Dr. Reardon is following from infectious disease consultation. Protonix for peptic ulcer disease prophylaxis Further recommendations based on clinical course. Total critical time spend = 30 mins Plan of care discussed with Dr. Miramonets. Subjective 24 Hr Interval Summary Free Text/Dictation Sleeping, responsive to name open his eyes. No respiratory distress noted at present Had CPAP trial - not successful- had tachycardia , patient got versed 4 mg and seems calm right now. Remains intubated, OGT noticed. Patient had hemodialysis today, got hypotensive, patient was given Levophed and is off Levophed now. Exam/Review of Systems Vital Signs Vitals Vital Signs Date Time Temp Pulse Resp B/P Pulse Ox O2 Delivery O2 Flow Rate FiO2 08/02/16 12:40 103 35 100 40 08/02/16 12:15 128/71 08/02/16 12:00 98.9 Mechanical Ventilator 07/31/16 20:03 15.0 Intake and Output 08/01/16 08/01/16 08/02/16 15:00 23:00 07:00 Intake Total 74 ml 573 ml 563.08 ml Output Total 0 ml Balance 74 ml 573 ml 563.08 ml Exam Constitutional: frail Psych: nl mood/affect Eyes: EOMI, PERRL, nl sclera ENMT: nl external ears & nose Neck: non-tender Respiratory: diminished breath sounds, other (orally intubated) Cardiovascular: nl pulses Gastrointestinal: non-tender, other (OGT noted- intact), soft Musculoskeletal: other Extremities: edema Neurological: lethargic Skin: other Lymph: nontender Results Result Diagram: 08/02/16 0558 08/02/16 0558 Results 24 hrs Laboratory Tests Test 08/01/16 19:30 08/02/16 05:58 08/02/16 07:00 Troponin I 0.086 Anion Gap 22 H Basophils # 0.0 Basophils % 0.1 Blood Morphology Comment Blood Urea Nitrogen 44 #H Calcium Level 8.5 Carbon Dioxide Level 22 Chloride Level 100 Creatinine 3.56 #H Eosinophils # 0.0 Eosinophils % 0.0 Glucose Level 271 H Hematocrit 30.4 L Hemoglobin 10.2 L INR International Normalized Ratio 2.85 Lymphocytes # 0.5 L Lymphocytes % 9.0 L Magnesium Level 2.1 Mean Corpuscular Hemoglobin 32.5 Mean Corpuscular Hemoglobin Concent 33.4 Mean Corpuscular Volume 97.2 Mean Platelet Volume 7.7 Monocytes # 0.2 L Monocytes % 4.0 Neutrophils # 5.2 Neutrophils % 86.9 H Nucleated Red Blood Cells # 0.0 Nucleated Red Blood Cells % 0.0 Phosphorus Level 2.5 Platelet Count 125 L Potassium Level 3.5 Prothrombin Time 30.3 H Prothrombin Time Ratio 2.4 Red Blood Count 3.13 L Red Cell Distribution Width 14.9 H Sodium Level 140 White Blood Count 6.0 # Arterial Blood HCO3 24.7 Arterial Blood Base Excess 0.8 Arterial Blood Oxygen Saturation 98.4 H Jerod Test ACCEPTAB Arterial Blood Gas Puncture Site Right Radial Arterial Blood Carboxyhemoglobin 0.1 Arterial Blood Date Drawn 08/02/2016 9:10:26 AM Arterial Blood Methemoglobin 0.3 Arterial Blood pCO2 (Temp correct) 36.9 Arterial Blood pH (Temp corrected) 7.444 Arterial Blood pO2 (Temp corrected) 135.4 H Blood Gas A-a O2 Differential 107.4 H Blood Gas Actual Respiration Rate 16 Blood Gas Low PEEP Setting 0 Blood Gas Modality VENT - AC Blood Gas Notified Time 08/02/2016 9:23:25 AM Blood Gas Notified Whom JLD Blood Gas Respiration Rate 16.0 Blood Gas Specimen Source Blood arterial Blood Gas Temperature 37.0 Blood Gas Tidal Volume 550.0 FiO2 40.0 Oxyhemoglobin Percent 98.0 Total Hemoglobin 10.5 L Medications Medications Current Medications Fluticasone Propionate (Flonase 0.05% Nasal) 1 spray BID NASAL Last administered on 08/02/16at 09:09; Admin Dose 1 SPRAY; Start 07/26/16 at 10:00 Epoetin [place] (Epogen (Esrd)) 10,000 units MoWeFr@17 SC Last administered on at 18:08; Admin Dose 10,000 UNITS; Start 07/27/16 at 17:00 Hydralazine HCl 10 mg 10 mg Q6H PRN IV ELEVATED BLOOD PRESSURE Last administered on 07/29/16at 12:59; Admin Dose 10 MG; Start 07/29/16 at 13:00 Aztreonam/Sodium Chloride (Azactam/NS) 50 ml @ 100 mls/hr Q12 IV Last administered on 08/02/16at 09:07; Admin Dose 100 MLS/HR; Start 07/31/16 at 09: 30 Methylprednisolone Sodium Succinate 40 mg 40 mg Q6 IV Last administered on at 11:54; Admin Dose 40 MG; Start 08/01/16 at 00:00 Midazolam HCl 50 mg/Dextrose 50 ml @ 1 mls/hr TITRATE IV Last administered on 08/02/16at 13:11; Admin Dose 4 MLS/HR; Start 08/01/16 at 23:00 Fentanyl/Dextrose (D5W) 100 ml @ 2.6 mls/hr TITRATE IV Last administered on at 23:21; Admin Dose 2.6 MLS/HR; Start 08/01/16 at 23:00 Acetaminophen (Tylenol Tab) 650 mg Q6H PRN GTB PAIN1-3/FEVER ABOVE 100; Start 08/02/16 at 15:00 Atorvastatin Calcium (Lipitor) 40 mg HS GTB ; Start 08/02/16 at 21:00 Carvedilol (Coreg) 6.25 mg BID GTB ; Start 08/02/16 at 09:00 Duloxetine HCl (Cymbalta) 90 mg DAILY GTB Last administered on 08/02/16at 11:45 ; Admin Dose 90 MG; Start 08/02/16 at 09:00 Guaifenesin (Robitussin Liquid Cup) 100 mg Q4 PRN GTB COUGH; Start 08/02/16 at 09:00 Acetaminophen/ Hydrocodone Bitart ([place] (5/325)) 1 tab Q4 PRN GTB [facility] Last administered on 08/02/16at 12:50; Admin Dose 1 TAB; Start 08/02/16 at 09:00 Lactobacillus Acidoph/Bulgaricus (Floranex) 1 tab DAILY GTB Last administered on 08/02/16at 10:55; Admin Dose 1 TAB; Start 08/02/16 at 09:00 Lorazepam (Ativan) 1 mg Q6H PRN GTB ANXIETY Last administered on 08/02/16at 12: 50; Admin Dose 1 MG; Start 08/02/16 at 09:00 Multivit/Ca Carb/ B Cmplx/FA/Prenat (Cherly-Darcie) 1 tab DAILY GTB Last administered on 08/02/16at 10:55; Admin Dose 1 TAB; Start 08/02/16 at 09:00 Polyethylene Glycol (Miralax) 17 gm DAILY GTB ; Start 08/02/16 at 09:00 Sildenafil Citrate (Revatio) 20 mg BID GTB ; Start 08/02/16 at 09:00 Warfarin Sodium (Coumadin) 2 mg DAILY@17 GTB ; Start 08/02/16 at 17:00 Aspirin (Aspirin) 81 mg DAILY GTB Last administered on 08/02/16at 10:55; Admin Dose 81 MG; Start 08/02/16 at 09:00 Lansoprazole 30 mg 30 mg DAILY@06 GTB Last administered on 08/02/16at 10:55; Admin Dose 30 MG; Start 08/02/16 at 10:00 Norepinephrine 250 ml @ 1.875 mls/ hr TITRATE IV Last administered on at 10:05; Admin Dose 3.75 MLS/HR; Start 08/02/16 at 10:00; Stop 08/02/16 at 15:00 Norepinephrine/ Dextrose (Levophed/D5W) 500 ml @ 1.87 mls/hr TITRATE IV ; Start 08/02/16 at 15:00 Miscellaneous Information (*Rx Drug Level Order Reminder*) 1 ONCE ONCE XX ; Start 08/03/16 at 05:00; Stop 08/03/16 at 05:01 GRACIE KATHLEEN Aug 02, 2016 14:08
--- NOTE | 2016-08-02 15:04 | CONS ---
Date/Time of Note Date/Time of Note DATE: 08/02/16 TIME: 15:01 Assessment/Plan Assessment/Plan Additional Assessment/Plan Respiratory failure status post intubation Minimally elevated troponin Partial right internal jugular DVT Diastolic congestive heart failure End-stage renal disease on hemodialysis CAD with history of PCI Diabetes Peripheral arterial disease with history of amputation Pulmonary hypertension -Chest x-ray improving, mild increased lower extremity edema, fluid management via hemodialysis as per our nephrology colleagues. Patient with hypotension this morning while sedated but currently when awake, systolic blood pressure in the 120s, would titrate off pressors while maintaining systolic blood pressure greater than 90 or map above 60, hold antihypertensives at the current time. Consultation Date/Type/Reason Admit Date/Time Jul 26, 2016 at 01:55 Type of Consultation: cv Referring Provider: GRACIE KATHLEEN 24 HR Interval Summary Free Text/Dictation Patient remains intubated, undergoing CPAP trial Exam/Review of Systems Vital Signs Vitals Vital Signs Date Time Temp Pulse Resp B/P Pulse Ox O2 Delivery O2 Flow Rate FiO2 08/02/16 12:40 103 35 100 40 08/02/16 12:15 128/71 08/02/16 12:00 98.9 Mechanical Ventilator 07/31/16 20:03 15.0 Intake and Output 08/01/16 08/01/16 08/02/16 15:00 23:00 07:00 Intake Total 74 ml 573 ml 567.08 ml Output Total 0 ml Balance 74 ml 573 ml 567.08 ml Exam In restraints secondary to agitation Constitutional: alert Head: normocephalic ENMT: intubated Respiratory: other (course breath sounds bilaterally, no wheezing) Cardiovascular: other (S1 and S2 heard), regular rate and rhythm Gastrointestinal: bowel sounds, non-tender, soft Extremities: edema Results Result Diagram: 08/02/16 0558 08/02/16 0558 Results 24 hrs Laboratory Tests Test 08/01/16 19:30 08/02/16 05:58 08/02/16 07:00 Troponin I 0.086 Anion Gap 22 H Basophils # 0.0 Basophils % 0.1 Blood Morphology Comment Blood Urea Nitrogen 44 #H Calcium Level 8.5 Carbon Dioxide Level 22 Chloride Level 100 Creatinine 3.56 #H Eosinophils # 0.0 Eosinophils % 0.0 Glucose Level 271 H Hematocrit 30.4 L Hemoglobin 10.2 L INR International Normalized Ratio 2.85 Lymphocytes # 0.5 L Lymphocytes % 9.0 L Magnesium Level 2.1 Mean Corpuscular Hemoglobin 32.5 Mean Corpuscular Hemoglobin Concent 33.4 Mean Corpuscular Volume 97.2 Mean Platelet Volume 7.7 Monocytes # 0.2 L Monocytes % 4.0 Neutrophils # 5.2 Neutrophils % 86.9 H Nucleated Red Blood Cells # 0.0 Nucleated Red Blood Cells % 0.0 Phosphorus Level 2.5 Platelet Count 125 L Potassium Level 3.5 Prothrombin Time 30.3 H Prothrombin Time Ratio 2.4 Red Blood Count 3.13 L Red Cell Distribution Width 14.9 H Sodium Level 140 White Blood Count 6.0 # Arterial Blood HCO3 24.7 Arterial Blood Base Excess 0.8 Arterial Blood Oxygen Saturation 98.4 H Jerod Test ACCEPTAB Arterial Blood Gas Puncture Site Right Radial Arterial Blood Carboxyhemoglobin 0.1 Arterial Blood Date Drawn 08/02/2016 9:10:26 AM Arterial Blood Methemoglobin 0.3 Arterial Blood pCO2 (Temp correct) 36.9 Arterial Blood pH (Temp corrected) 7.444 Arterial Blood pO2 (Temp corrected) 135.4 H Blood Gas A-a O2 Differential 107.4 H Blood Gas Actual Respiration Rate 16 Blood Gas Low PEEP Setting 0 Blood Gas Modality VENT - AC Blood Gas Notified Time 08/02/2016 9:23:25 AM Blood Gas Notified Whom JLD Blood Gas Respiration Rate 16.0 Blood Gas Specimen Source Blood arterial Blood Gas Temperature 37.0 Blood Gas Tidal Volume 550.0 FiO2 40.0 Oxyhemoglobin Percent 98.0 Total Hemoglobin 10.5 L Medications Medications Current Medications Fluticasone Propionate (Flonase 0.05% Nasal) 1 spray BID NASAL Last administered on 08/02/16at 09:09; Admin Dose 1 SPRAY; Start 07/26/16 at 10:00 Epoetin [place] (Epogen (Esrd)) 10,000 units MoWeFr@17 SC Last administered on at 18:08; Admin Dose 10,000 UNITS; Start 07/27/16 at 17:00 Hydralazine HCl 10 mg 10 mg Q6H PRN IV ELEVATED BLOOD PRESSURE Last administered on 07/29/16at 12:59; Admin Dose 10 MG; Start 07/29/16 at 13:00 Aztreonam/Sodium Chloride (Azactam/NS) 50 ml @ 100 mls/hr Q12 IV Last administered on 08/02/16at 09:07; Admin Dose 100 MLS/HR; Start 07/31/16 at 09: 30 Methylprednisolone Sodium Succinate 40 mg 40 mg Q6 IV Last administered on at 11:54; Admin Dose 40 MG; Start 08/01/16 at 00:00 Midazolam HCl 50 mg/Dextrose 50 ml @ 1 mls/hr TITRATE IV Last administered on 08/02/16at 13:11; Admin Dose 4 MLS/HR; Start 08/01/16 at 23:00 Fentanyl/Dextrose (D5W) 100 ml @ 2.6 mls/hr TITRATE IV Last administered on at 23:21; Admin Dose 2.6 MLS/HR; Start 08/01/16 at 23:00 Acetaminophen (Tylenol Tab) 650 mg Q6H PRN GTB PAIN1-3/FEVER ABOVE 100; Start 08/02/16 at 15:00 Atorvastatin Calcium (Lipitor) 40 mg HS GTB ; Start 08/02/16 at 21:00 Carvedilol (Coreg) 6.25 mg BID GTB ; Start 08/02/16 at 09:00 Duloxetine HCl (Cymbalta) 90 mg DAILY GTB Last administered on 08/02/16at 11:45 ; Admin Dose 90 MG; Start 08/02/16 at 09:00 Guaifenesin (Robitussin Liquid Cup) 100 mg Q4 PRN GTB COUGH; Start 08/02/16 at 09:00 Acetaminophen/ Hydrocodone Bitart ([place] (5/325)) 1 tab Q4 PRN GTB WSOB Last administered on 08/02/16at 12:50; Admin Dose 1 TAB; Start 08/02/16 at 09:00 Lactobacillus Acidoph/Bulgaricus (Floranex) 1 tab DAILY GTB Last administered on 08/02/16at 10:55; Admin Dose 1 TAB; Start 08/02/16 at 09:00 Lorazepam (Ativan) 1 mg Q6H PRN GTB ANXIETY Last administered on 08/02/16at 12: 50; Admin Dose 1 MG; Start 08/02/16 at 09:00 Multivit/Ca Carb/ B Cmplx/FA/Prenat (Cheryl-Darcie) 1 tab DAILY GTB Last administered on 08/02/16at 10:55; Admin Dose 1 TAB; Start 08/02/16 at 09:00 Polyethylene Glycol (Miralax) 17 gm DAILY GTB ; Start 08/02/16 at 09:00 Sildenafil Citrate (Revatio) 20 mg BID GTB ; Start 08/02/16 at 09:00 Warfarin Sodium (Coumadin) 2 mg DAILY@17 GTB ; Start 08/02/16 at 17:00 Aspirin (Aspirin) 81 mg DAILY GTB Last administered on 08/02/16at 10:55; Admin Dose 81 MG; Start 08/02/16 at 09:00 Lansoprazole 30 mg 30 mg DAILY@06 GTB Last administered on 08/02/16at 10:55; Admin Dose 30 MG; Start 08/02/16 at 10:00 Norepinephrine/ Dextrose (Levophed/D5W) 500 ml @ 1.87 mls/hr TITRATE IV ; Start 08/02/16 at 15:00 Miscellaneous Information (*Rx Drug Level Order Reminder*) 1 ONCE ONCE XX ; Start 08/03/16 at 05:00; Stop 08/03/16 at 05:01 Solo Leon DO Aug 02, 2016 15:04
[2016-08-02] MEDS: WARFARIN 2 MG TAB GTB SCH (17:30)
[2016-08-02] MEDS: ATORVASTATIN 40 MG TAB GTB SCH (21:23)
[2016-08-03] VITALS (60 sets, daily range): BP systolic 89–135; BP diastolic 46–74; PULSE 82–101; RESP 13–31
[2016-08-03] MEDS: ALBUTEROL HFA 8 GM INHALER INH SCH ×5 (01:09→18:40)
[2016-08-03] MEDS: METHYLPREDNISOLONE 40 MG INJ IV SCH ×3 (01:54→21:39)
[2016-08-03 04:57] LABS: INR 2.5; PROTIME 27.3 Sec (12.2-14.2); PT RATIO 2.1
[2016-08-03 05:10] LABS: HEMATOCRIT 29.9 % (42.0-52.0); HEMOGLOBIN 9.8 g/dl (14.0-18.0); LYMPHOCYTES # 0.3 10^3/ul (0.8-2.9); LYMPHOCYTES % 4.4 % (15.0-51.0); MEAN CORPUSCULAR HEMOGLOBIN 31.9 pg (29.0-33.0); MEAN CORPUSCULAR HGB CONC 32.8 g/dl (32.0-37.0); MEAN CORPUSCULAR VOLUME 97.1 fl (82.0-101.0); MEAN PLATELET VOLUME 7.9 fl (7.4-10.4); MONOCYTE # 0.2 10^3/ul (0.3-0.9); MONOCYTES % 3.4 % (0.0-11.0); NEUTROPHIL # 6.9 10^3/ul (1.6-7.5); NEUTROPHILS % 92.2 % (39.0-77.0); PLATELET COUNT 138 10^3/UL (140-440); RED BLOOD COUNT 3.08 10^6/ul (4.70-6.10); RED CELL DISTRIBUTION WIDTH 14.6 % (11.5-14.5); UNCORRECTED WBC 7.4 10^3/ul (4.8-10.8); WHITE BLOOD COUNT 7.4 10^3/ul (4.8-10.8)
[2016-08-03 05:20] LABS: ALBUMIN 3.8 g/dl (3.3-4.9); POTASSIUM 3.6 mmol/L (3.5-5.1)
[2016-08-03 05:21] LABS: CONDITION 1; LH ANALYZER COMMENTS 1
[2016-08-03 05:22] LABS: CREATININE 2.69 mg/dl (0.61-1.24)
[2016-08-03 05:23] LABS: ALBUMIN/GLOBULIN RATIO 1.18
[2016-08-03 05:24] LABS: CALCIUM 9.4 mg/dl (8.4-10.2)
[2016-08-03] MEDS: LANSOPRAZOLE 30 MG CAP GTB SCH (05:36)
--- NOTE | 2016-08-03 06:53 | RADRPT ---
PROCEDURE: XR Chest. CLINICAL INDICATION: Respiratory failure TECHNIQUE: Portable single view of the chest COMPARISON: 08/02 FINDINGS: Shallow lung volumes accentuate interstitial lung markings which are likely otherwise unchanged. No focal consolidation or pleural effusion. Tubes and lines remain in good position. IMPRESSION: Shallower lung volumes. Otherwise stable exam. RPTAT: HLBE Nicole Rose Physician Date Time Electronically viewed and signed by Nicole Rose Physician on 08/03/2016 06:53 LE/
[2016-08-03] MEDS: DULOXETINE 30 MG CAP DR GTB SCH (09:18)
[2016-08-03] MEDS: LACTOBACILLUS CHEW TAB GTB SCH (09:18)
[2016-08-03] MEDS: SEVELAMER CARBONATE 0.8 GM PKT GTB SCH ×3 (09:18→18:19)
[2016-08-03] MEDS: ASPIRIN 81 MG TAB GTB SCH (09:18)
[2016-08-03] MEDS: MULTIVIT/CA CARB/B CMPLX/FA TAB GTB SCH (09:18)
[2016-08-03] MEDS: FLUTICASONE 0.05% 16 GM NAS SPRAY NASAL SCH ×2 (09:19→21:00)
[2016-08-03] MEDS: POLYETHYLENE GLYCOL 17 GM PACKET GTB SCH (09:19)
[2016-08-03] MEDS: AZTREONAM 0.5 GM in SOD CHLORIDE 0.9% 50 ML IV SCH ×2 (09:30→21:39)
[2016-08-03] MEDS: MIDAZOLAM 50 MG in DEXTROSE 5% 40 ML IV SCH ×2 (10:40→22:02)
--- NOTE | 2016-08-03 10:43 | CONS ---
Date/Time of Note Date/Time of Note DATE: 08/03/16 TIME: 10:40 Consult Date/Type/Reason Admit Date/Time Jul 26, 2016 at 01:55 Initial Consult Date 07/29/16 Type of Consultation: Pulm Ordering Provider: GRACIE KATHLEEN Subjective Intubated, awake alert agitated. Hemodynamically stable. Objective Vital Signs Date Time Temp Pulse Resp B/P Pulse Ox O2 Delivery O2 Flow Rate FiO2 08/03/16 08:20 40 08/03/16 08:00 86 08/03/16 06:30 16 100 08/03/16 06:00 124/65 08/03/16 05:30 Mechanical Ventilator 08/03/16 04:00 98.2 07/31/16 20:03 15.0 Intake and Output 08/02/16 08/02/16 08/03/16 15:00 23:00 07:00 Intake Total 819.25 ml 548 ml 58 ml Output Total 3000 ml 0 ml 0 ml Balance -2180.75 ml 548 ml 58 ml PHYSICAL EXAMINATION: GENERAL: Chronically ill appearing gentleman, comfortable at rest, no acute distress. on vent VITAL SIGNS: as above NECK: Supple. No JVD or lymphadenopathy. CARDIAC: S1, S2, no added sounds or murmurs. CHEST: Diminished air entry bilaterally. ABDOMEN: Soft, nontender. No guarding or rebound. EXTREMITIES: No cyanosis, clubbing, or edema. NEUROLOGIC: unable to assess Results/Medications Result Diagram: 08/03/16 0400 08/03/16 0400 Results 24 hrs cxr mild pulm edema low lung volumes Laboratory Tests Test 08/03/16 04:00 Alanine Aminotransferase (ALT/SGPT) 27 Albumin 3.8 Albumin/Globulin Ratio 1.18 Alkaline Phosphatase 104 Anion Gap 19 H Aspartate Amino Transf (AST/SGOT) 16 Basophils # 0.0 Basophils % 0.0 Blood Morphology Comment Blood Urea Nitrogen 44 H Calcium Level 9.4 Carbon Dioxide Level 26 Chloride Level 104 Creatinine 2.69 H Direct Bilirubin 0.00 Eosinophils # 0.0 Eosinophils % 0.0 Globulin 3.20 Glucose Level 380 H Hematocrit 29.9 L Hemoglobin 9.8 L INR International Normalized Ratio 2.50 Indirect Bilirubin 0.0 Lymphocytes # 0.3 L Lymphocytes % 4.4 L Mean Corpuscular Hemoglobin 31.9 Mean Corpuscular Hemoglobin Concent 32.8 Mean Corpuscular Volume 97.1 Mean Platelet Volume 7.9 Monocytes # 0.2 L Monocytes % 3.4 Neutrophils # 6.9 Neutrophils % 92.2 H Nucleated Red Blood Cells # 0.0 Nucleated Red Blood Cells % 0.0 Platelet Count 138 L Potassium Level 3.6 Prothrombin Time 27.3 H Prothrombin Time Ratio 2.1 Random Vancomycin Level 12.7 Red Blood Count 3.08 L Red Cell Distribution Width 14.6 H Sodium Level 145 H Total Bilirubin 0.0 L Total Protein 7.0 White Blood Count 7.4 # Medications Current Medications Fluticasone Propionate (Flonase 0.05% Nasal) 1 spray BID NASAL Last administered on 08/03/16at 09:19; Admin Dose 1 SPRAY; Start 07/26/16 at 10:00 Epoetin [place] (Epogen (Esrd)) 10,000 units MoWeFr@17 SC Last administered on at 18:08; Admin Dose 10,000 UNITS; Start 07/27/16 at 17:00 Hydralazine HCl 10 mg 10 mg Q6H PRN IV ELEVATED BLOOD PRESSURE Last administered on 07/29/16at 12:59; Admin Dose 10 MG; Start 07/29/16 at 13:00 Aztreonam/Sodium Chloride (Azactam/NS) 50 ml @ 100 mls/hr Q12 IV Last administered on 08/03/16at 09:30; Admin Dose 100 MLS/HR; Start 07/31/16 at 09: 30 Methylprednisolone Sodium Succinate 40 mg 40 mg Q6 IV Last administered on at 05:36; Admin Dose 40 MG; Start 08/01/16 at 00:00 Midazolam HCl 50 mg/Dextrose 50 ml @ 1 mls/hr TITRATE IV Last administered on 08/02/16at 21:24; Admin Dose 4 MLS/HR; Start 08/01/16 at 23:00 Fentanyl/Dextrose (D5W) 100 ml @ 2.6 mls/hr TITRATE IV Last administered on at 23:21; Admin Dose 2.6 MLS/HR; Start 08/01/16 at 23:00 Acetaminophen (Tylenol Tab) 650 mg Q6H PRN GTB PAIN1-3/FEVER ABOVE 100; Start 08/02/16 at 15:00 Atorvastatin Calcium (Lipitor) 40 mg HS GTB Last administered on 08/02/16at 21: 23; Admin Dose 40 MG; Start 08/02/16 at 21:00 Carvedilol (Coreg) 6.25 mg BID GTB ; Start 08/02/16 at 09:00; Status Future Hold Duloxetine HCl (Cymbalta) 90 mg DAILY GTB Last administered on 08/03/16at 09:18 ; Admin Dose 90 MG; Start 08/02/16 at 09:00 Guaifenesin (Robitussin Liquid Cup) 100 mg Q4 PRN GTB COUGH; Start 08/02/16 at 09:00 Acetaminophen/ Hydrocodone Bitart ([place] (5/325)) 1 tab Q4 PRN GTB WSOB Last administered on 08/02/16at 12:50; Admin Dose 1 TAB; Start 08/02/16 at 09:00 Lactobacillus Acidoph/Bulgaricus (Floranex) 1 tab DAILY GTB Last administered on 08/03/16at 09:18; Admin Dose 1 TAB; Start 08/02/16 at 09:00 Lorazepam (Ativan) 1 mg Q6H PRN GTB ANXIETY Last administered on 08/02/16at 12: 50; Admin Dose 1 MG; Start 08/02/16 at 09:00 Multivit/Ca Carb/ B Cmplx/FA/Prenat (Cheryl-Darcie) 1 tab DAILY GTB Last administered on 08/03/16at 09:18; Admin Dose 1 TAB; Start 08/02/16 at 09:00 Polyethylene Glycol (Miralax) 17 gm DAILY GTB Last administered on 08/03/16at 09:19; Admin Dose 17 GM; Start 08/02/16 at 09:00 Sildenafil Citrate (Revatio) 20 mg BID GTB ; Start 08/02/16 at 09:00; Status Future Hold Warfarin Sodium (Coumadin) 2 mg DAILY@17 GTB Last administered on 08/02/16at 17 :30; Admin Dose 2 MG; Start 08/02/16 at 17:00 Aspirin (Aspirin) 81 mg DAILY GTB Last administered on 08/03/16at 09:18; Admin Dose 81 MG; Start 08/02/16 at 09:00 Lansoprazole 30 mg 30 mg DAILY@06 GTB Last administered on 08/03/16at 05:36; Admin Dose 30 MG; Start 08/02/16 at 10:00 Norepinephrine/ Dextrose (Levophed/D5W) 500 ml @ 1.87 mls/hr TITRATE IV ; Start 08/02/16 at 15:00 Assessment/Plan Chief Complaint/Hosp Course Assessment 1. Hypoxemic resp failure, acute requiring mechanical ventilation. 2. Pulm edema, right lower lobe infiltrate, possible aspiration pneumonia. 3. Encephalopathy toxic metabolic 4. Diastolic dysf ? Plan 1. Continue Vent, cpap trial today. Hopefully extubate. 2. Emergent HD, volume removal 3, Aspiration precautions 4. DVT / GI prophylaxis. d/w staff Problems: VALERIE CAMARENA MD, [facility] Aug 03, 2016 10:43
--- NOTE | 2016-08-03 11:15 | PQ ---
Date/Time of Note Date/Time of Note DATE: 08/03/16 TIME: 11:08 Physician Query Documentation Clarification A review of the medical record found a need for documentation clarification. Progress note - "Partial right internal jugular DVT. Continue Coumadin. 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 Please clarify the acuity of diagnosis being treated. To facilitate accurate and complete coding, please brady ( x ) the suspected diagnosis that apply: ( ) Acute right internal jugular DVT ( ) Chronic right internal jugular DVT ( ) Clinically unable to be determined Please provide your response by clicking edit document, making your choice ( x ), click ok and finally click sign. You may also document your response on your progress notes. Thank you for your time. Gentry Grady RN, BSN, CCS, CCDS Clinical [employer] Information Management, [employer] and Coding Services [phone] Room # 1525 - [address]~ [id number] GENTRY GRADY Aug 03, 2016 11:15
--- NOTE | 2016-08-03 12:00 | CONS ---
Date/Time of Note Date/Time of Note DATE: 08/03/16 TIME: 11:58 Assessment/Plan Assessment/Plan Additional Assessment/Plan Respiratory failure status post intubation Minimally elevated troponin Partial right internal jugular DVT Diastolic congestive heart failure End-stage renal disease on hemodialysis CAD with history of PCI Diabetes Peripheral arterial disease with history of amputation Pulmonary hypertension -Patient off IV pressor and would hold off reinitiation of antihypertensives at the current time until blood pressure trend main stable, ventilatory weaning as per pulmonary, fluid management via hemodialysis as per our nephrology colleagues. Consultation Date/Type/Reason Admit Date/Time Jul 26, 2016 at 01:55 Type of Consultation: cv Referring Provider: GRACIE KATHLEEN 24 HR Interval Summary Free Text/Dictation Patient seen and examined, no new cardiac issues as per nursing staff Exam/Review of Systems Vital Signs Vitals Vital Signs Date Time Temp Pulse Resp B/P Pulse Ox O2 Delivery O2 Flow Rate FiO2 08/03/16 10:00 94 16 111/74 100 08/03/16 09:00 Mechanical Ventilator 08/03/16 08:20 40 08/03/16 08:00 98.2 07/31/16 20:03 15.0 Intake and Output 08/02/16 08/02/16 08/03/16 15:00 23:00 07:00 Intake Total 819.25 ml 548 ml 88 ml Output Total 3000 ml 0 ml 0 ml Balance -2180.75 ml 548 ml 88 ml Exam Undergoing weaning trial Constitutional: alert Head: normocephalic ENMT: intubated Respiratory: other (course breath sounds bilaterally, no wheezing) Cardiovascular: other (S1-S2 heard), regular rate and rhythm Gastrointestinal: bowel sounds, non-tender, soft Extremities: edema Results Result Diagram: 08/03/16 0400 08/03/16 0400 Results 24 hrs Laboratory Tests Test 08/03/16 04:00 Alanine Aminotransferase (ALT/SGPT) 27 Albumin 3.8 Albumin/Globulin Ratio 1.18 Alkaline Phosphatase 104 Anion Gap 19 H Aspartate Amino Transf (AST/SGOT) 16 Basophils # 0.0 Basophils % 0.0 Blood Morphology Comment Blood Urea Nitrogen 44 H Calcium Level 9.4 Carbon Dioxide Level 26 Chloride Level 104 Creatinine 2.69 H Direct Bilirubin 0.00 Eosinophils # 0.0 Eosinophils % 0.0 Globulin 3.20 Glucose Level 380 H Hematocrit 29.9 L Hemoglobin 9.8 L INR International Normalized Ratio 2.50 Indirect Bilirubin 0.0 Lymphocytes # 0.3 L Lymphocytes % 4.4 L Mean Corpuscular Hemoglobin 31.9 Mean Corpuscular Hemoglobin Concent 32.8 Mean Corpuscular Volume 97.1 Mean Platelet Volume 7.9 Monocytes # 0.2 L Monocytes % 3.4 Neutrophils # 6.9 Neutrophils % 92.2 H Nucleated Red Blood Cells # 0.0 Nucleated Red Blood Cells % 0.0 Platelet Count 138 L Potassium Level 3.6 Prothrombin Time 27.3 H Prothrombin Time Ratio 2.1 Random Vancomycin Level 12.7 Red Blood Count 3.08 L Red Cell Distribution Width 14.6 H Sodium Level 145 H Total Bilirubin 0.0 L Total Protein 7.0 White Blood Count 7.4 # Medications Medications Current Medications Fluticasone Propionate (Flonase 0.05% Nasal) 1 spray BID NASAL Last administered on 08/03/16 09:19; Admin Dose 1 SPRAY; Start 07/26/16 at 10:00 Epoetin [place] (Epogen (Esrd)) 10,000 units MoWeFr@17 SC Last administered on at 18:08; Admin Dose 10,000 UNITS; Start 07/27/16 at 17:00 Hydralazine HCl 10 mg 10 mg Q6H PRN IV ELEVATED BLOOD PRESSURE Last administered on 07/29/16at 12:59; Admin Dose 10 MG; Start 07/29/16 at 13:00 Aztreonam/Sodium Chloride (Azactam/NS) 50 ml @ 100 mls/hr Q12 IV Last administered on 08/03/16at 09:30; Admin Dose 100 MLS/HR; Start 07/31/16 at 09: 30 Methylprednisolone Sodium Succinate 40 mg 40 mg Q6 IV Last administered on at 05:36; Admin Dose 40 MG; Start 08/01/16 at 00:00 Midazolam HCl 50 mg/Dextrose 50 ml @ 1 mls/hr TITRATE IV Last administered on 08/03/16at 10:40; Admin Dose 4 MLS/HR; Start 08/01/16 at 23:00 Fentanyl/Dextrose (D5W) 100 ml @ 2.6 mls/hr TITRATE IV Last administered on at 23:21; Admin Dose 2.6 MLS/HR; Start 08/01/16 at 23:00 Acetaminophen (Tylenol Tab) 650 mg Q6H PRN GTB PAIN1-3/FEVER ABOVE 100; Start 08/02/16 at 15:00 Atorvastatin Calcium (Lipitor) 40 mg HS GTB Last administered on 08/02/16at 21: 23; Admin Dose 40 MG; Start 08/02/16 at 21:00 Carvedilol (Coreg) 6.25 mg BID GTB ; Start 08/02/16 at 09:00; Status Future Hold Duloxetine HCl (Cymbalta) 90 mg DAILY GTB Last administered on 08/03/16at 09:18 ; Admin Dose 90 MG; Start 08/02/16 at 09:00 Guaifenesin (Robitussin Liquid Cup) 100 mg Q4 PRN GTB COUGH; Start 08/02/16 at 09:00 Acetaminophen/ Hydrocodone Bitart ([place] (5/325)) 1 tab Q4 PRN GTB WSOB Last administered on 08/02/16at 12:50; Admin Dose 1 TAB; Start 08/02/16 at 09:00 Lactobacillus Acidoph/Bulgaricus (Floranex) 1 tab DAILY GTB Last administered on 08/03/16at 09:18; Admin Dose 1 TAB; Start 08/02/16 at 09:00 Lorazepam (Ativan) 1 mg Q6H PRN GTB ANXIETY Last administered on 08/02/16at 12: 50; Admin Dose 1 MG; Start 08/02/16 at 09:00 Multivit/Ca Carb/ B Cmplx/FA/Prenat (Cheryl-Darcie) 1 tab DAILY GTB Last administered on 08/03/16at 09:18; Admin Dose 1 TAB; Start 08/02/16 at 09:00 Polyethylene Glycol (Miralax) 17 gm DAILY GTB Last administered on 08/03/16at 09:19; Admin Dose 17 GM; Start 08/02/16 at 09:00 Sildenafil Citrate (Revatio) 20 mg BID GTB ; Start 08/02/16 at 09:00; Status Future Hold Warfarin Sodium (Coumadin) 2 mg DAILY@17 GTB Last administered on 08/02/16at 17 :30; Admin Dose 2 MG; Start 08/02/16 at 17:00 Aspirin (Aspirin) 81 mg DAILY GTB Last administered on 08/03/16at 09:18; Admin Dose 81 MG; Start 08/02/16 at 09:00 Lansoprazole 30 mg 30 mg DAILY@06 GTB Last administered on 08/03/16at 05:36; Admin Dose 30 MG; Start 08/02/16 at 10:00 Norepinephrine/ Dextrose (Levophed/D5W) 500 ml @ 1.87 mls/hr TITRATE IV ; Start 08/02/16 at 15:00 Solo Leon DO Aug 03, 2016 12:00
--- NOTE | 2016-08-03 13:14 | CONS ---
DATE OF ADMISSION: 07/26/2016 DATE OF CONSULTATION: SUBJECTIVE: The patient remains intubated here in the ICU. He is undergoing CPAP trials. PHYSICAL EXAMINATION: GENERAL: He is now awake, alert. He is no longer sedated and is off pressors. VITAL SIGNS: He is afebrile. Blood pressure is 110/74, heart rate is 92 in a sinus rhythm, respira tions are 12 and unlabored, O2 saturation is 100% on 40% FIO2. SKIN: No rashes. LUNGS: Show diminished breath sounds, but no rales, wheezes or rhonchi. HEART: S1, S2, regular rate and rhythm. ABDOMEN: Soft. EXTREMITIES: Well-functioning left upper extremity AV fistula. LABORATORY DATA: White count 7.4, hemoglobin 9.8, hematocrit 29.9, platelet count 138,000. INR is 2.5, potassium is 3.6. Liver tests are normal. Albumin is 3.8. Chest x-ray shows shallow lung volumes. No pleural effusion or focal consolidation is noted. PROBLEM LIST: 1. Respiratory failure of unclear etiology, responding to antibiotics, steroids and intubation: Ch est x-ray with no infiltrates currently. 2. End-stage renal disease. Plan dialysis tomorrow. 3. History of congestive heart failure since resolved. 4. Diabetes mellitus. RECOMMENDATIONS: 1. We will order dialysis tomorrow with ultrafiltration as tolerated. 2. Will decrease IV Solu-Medrol to 40 mg IV q.12 hours at this point, down from q.6h. 3. Continue weaning protocol per Dr. Andrews. 4. Further recommendations pending response to above. Dictated By: MOSES GUAJARDO MD, MM/OLESYA Conf#: [id number] DID#: [id number]
[2016-08-03] MEDS: LORAZEPAM 1 MG TAB GTB PRN ×2 (13:34→19:35)
[2016-08-03] MEDS: VANCOMYCIN 1 GM in NS 250 ML IVPB SCH (14:10)
--- NOTE | 2016-08-03 15:13 | PN ---
Date/Time of Note Date/Time of Note DATE: 08/03/16 TIME: 15:08 Assessment/Plan VTE Prophylaxis VTE Prophylaxis Intervention: other (Coumadin) Lines/Catheters IV Catheter Type (from [facility]): Peripheral IV Urinary Cath still in place: No Assessment/Plan Chief Complaint/Hosp Course 1. Acute respiratory failure, continue ventilator support, bronchodilators, steroids. 2. End-stage renal disease hemodialysis dependent. Dr. Bassett is following in nephrology consultation 3. Diastolic congestive heart failure. Continue to remove fluid was hemodialysis. 4. Partial right internal jugular DVT. Continue Coumadin. Continue daily PT PTT. 5. Coronary artery disease with history of PCI. Continue aspirin. 6. Depression. Continue Cymbalta 7. History of left hip fracture, treated conservatively. 8. Osteoporosis. 9. Pulmonary hypertension. sildenafil is held due to hypotension. 10. Possible pneumonia, continue aztreonam and vancomycin. Dr. Reardon is following from infectious disease consultation. Protonix for peptic ulcer disease prophylaxis Further recommendations based on clinical course. Plan of care discussed with Dr. Miramontes. Problems: Subjective 24 Hr Interval Summary Free Text/Dictation Patient continues to be on vent support, failed weaning today, no nausea vomiting diarrhea per RN, hemodynamically stable, sedated with periods of agitation. Exam/Review of Systems Vital Signs Vitals Vital Signs Date Time Temp Pulse Resp B/P Pulse Ox O2 Delivery O2 Flow Rate FiO2 08/03/16 12:04 40 08/03/16 12:00 95 23 126/73 100 Mechanical Ventilator 08/03/16 08:00 98.2 07/31/16 20:03 15.0 Intake and Output 08/02/16 08/02/16 08/03/16 15:00 23:00 07:00 Intake Total 819.25 ml 548 ml 88 ml Output Total 3000 ml 0 ml 0 ml Balance -2180.75 ml 548 ml 88 ml Exam GENERAL: This is a well-developed, well-nourished male , orally intubated on vent. HEENT: Head is atraumatic, normocephalic. Pupils equal, round, reactive to light and accommodation. NECK: Supple, no cervical lymphadenopathy. R IJ TLC. CHEST: The patient with diminished air entry into the lungs. CARDIOVASCULAR: Normal S1, S2. No murmurs, gallops, clicks, rubs noted. ABDOMEN: Round, soft, nondistended, nontender. Bowel sounds present. There is no guarding, no rebound tenderness. EXTREMITIES: Left upper extremity with arteriovenous fistula with palpable thrill and audible bruit. The patient is status post left BKA. Right lower extremity with mild edema, present pulse. SKIN: There is no rash, petechiae noted. NEUROLOGIC: Sedated, easily arousable. Results Result Diagram: 08/03/16 0400 08/03/16 0400 Results 24 hrs Laboratory Tests Test 08/03/16 04:00 Alanine Aminotransferase (ALT/SGPT) 27 Albumin 3.8 Albumin/Globulin Ratio 1.18 Alkaline Phosphatase 104 Anion Gap 19 H Aspartate Amino Transf (AST/SGOT) 16 Basophils # 0.0 Basophils % 0.0 Blood Morphology Comment Blood Urea Nitrogen 44 H Calcium Level 9.4 Carbon Dioxide Level 26 Chloride Level 104 Creatinine 2.69 H Direct Bilirubin 0.00 Eosinophils # 0.0 Eosinophils % 0.0 Globulin 3.20 Glucose Level 380 H Hematocrit 29.9 L Hemoglobin 9.8 L INR International Normalized Ratio 2.50 Indirect Bilirubin 0.0 Lymphocytes # 0.3 L Lymphocytes % 4.4 L Mean Corpuscular Hemoglobin 31.9 Mean Corpuscular Hemoglobin Concent 32.8 Mean Corpuscular Volume 97.1 Mean Platelet Volume 7.9 Monocytes # 0.2 L Monocytes % 3.4 Neutrophils # 6.9 Neutrophils % 92.2 H Nucleated Red Blood Cells # 0.0 Nucleated Red Blood Cells % 0.0 Platelet Count 138 L Potassium Level 3.6 Prothrombin Time 27.3 H Prothrombin Time Ratio 2.1 Random Vancomycin Level 12.7 Red Blood Count 3.08 L Red Cell Distribution Width 14.6 H Sodium Level 145 H Total Bilirubin 0.0 L Total Protein 7.0 White Blood Count 7.4 # Medications Medications Current Medications Fluticasone Propionate (Flonase 0.05% Nasal) 1 spray BID NASAL Last administered on 08/03/16at 09:19; Admin Dose 1 SPRAY; Start 07/26/16 at 10:00 Epoetin [place] (Epogen (Esrd)) 10,000 units MoWeFr@17 SC Last administered on at 18:08; Admin Dose 10,000 UNITS; Start 07/27/16 at 17:00 Hydralazine HCl 10 mg 10 mg Q6H PRN IV ELEVATED BLOOD PRESSURE Last administered on 07/29/16at 12:59; Admin Dose 10 MG; Start 07/29/16 at 13:00 Aztreonam 0.5 gm/ Sodium Chloride 50 ml @ 100 mls/hr Q12 IV Last administered on 08/03/16at 09:30; Admin Dose 100 MLS/HR; Start 07/31/16 at 09:30 Midazolam HCl 50 mg/Dextrose 50 ml @ 1 mls/hr TITRATE IV Last administered on 08/03/16at 10:40; Admin Dose 4 MLS/HR; Start 08/01/16 at 23:00 Fentanyl/Dextrose (D5W) 100 ml @ 2.6 mls/hr TITRATE IV Last administered on at 23:21; Admin Dose 2.6 MLS/HR; Start 08/01/16 at 23:00 Acetaminophen (Tylenol Tab) 650 mg Q6H PRN GTB PAIN1-3/FEVER ABOVE 100; Start 08/02/16 at 15:00 Atorvastatin Calcium (Lipitor) 40 mg HS GTB Last administered on 08/02/16at 21: 23; Admin Dose 40 MG; Start 08/02/16 at 21:00 Carvedilol (Coreg) 6.25 mg BID GTB ; Start 08/02/16 at 09:00; Status Future Hold Duloxetine HCl (Cymbalta) 90 mg DAILY GTB Last administered on 08/03/16at 09:18 ; Admin Dose 90 MG; Start 08/02/16 at 09:00 Guaifenesin (Robitussin Liquid Cup) 100 mg Q4 PRN GTB COUGH; Start 08/02/16 at 09:00 Acetaminophen/ Hydrocodone Bitart ([place] (5/325)) 1 tab Q4 PRN GTB WSOB Last administered on 08/02/16at 12:50; Admin Dose 1 TAB; Start 08/02/16 at 09:00 Lactobacillus Acidoph/Bulgaricus (Floranex) 1 tab DAILY GTB Last administered on 08/03/16at 09:18; Admin Dose 1 TAB; Start 08/02/16 at 09:00 Lorazepam (Ativan) 1 mg Q6H PRN GTB ANXIETY Last administered on 08/03/16at 13: 34; Admin Dose 1 MG; Start 08/02/16 at 09:00 Multivit/Ca Carb/ B Cmplx/FA/Prenat ([place]heryl-Darcie) 1 tab DAILY GTB Last administered on 08/03/16at 09:18; Admin Dose 1 TAB; Start 08/02/16 at 09:00 Polyethylene Glycol (Miralax) 17 gm DAILY GTB Last administered on 08/03/16at 09:19; Admin Dose 17 GM; Start 08/02/16 at 09:00 Sildenafil Citrate (Revatio) 20 mg BID GTB ; Start 08/02/16 at 09:00; Status Future Hold Warfarin Sodium (Coumadin) 2 mg DAILY@17 GTB Last administered on 08/02/16at 17 :30; Admin Dose 2 MG; Start 08/02/16 at 17:00 Aspirin (Aspirin) 81 mg DAILY GTB Last administered on 08/03/16at 09:18; Admin Dose 81 MG; Start 08/02/16 at 09:00 Lansoprazole 30 mg 30 mg DAILY@06 GTB Last administered on 08/03/16at 05:36; Admin Dose 30 MG; Start 08/02/16 at 10:00 Norepinephrine/ Dextrose (Levophed/D5W) 500 ml @ 1.87 mls/hr TITRATE IV ; Start 08/02/16 at 15:00 Methylprednisolone Sodium Succinate 40 mg 40 mg BID IV ; Start 08/03/16 at 21: 00 Vancomycin HCl (Vancocin) 250 ml @ 125 mls/hr Q96H IVPB Last administered on 08/03/16at 14:10; Admin Dose 125 MLS/HR; Start 08/03/16 at 14:00 MARY DOMINGUEZ Aug 03, 2016 15:13
--- NOTE | 2016-08-03 16:57 | CONS ---
Date/Time of Note Date/Time of Note DATE: 08/03/16 TIME: 16:55 Assessment/Plan Assessment/Plan Additional Assessment/Plan assessment/impression - acute hypoxemic respiratory failure - intubated 07/31 - Pulm edema, right lower lobe infiltrate, possible aspiration pneumonia per Pulmonary - persistent hypotension after HD - s/p short term Levophed 08/02 - fever on 07/29/2016 - recent RUE cellulitis complicated by axillary/cephalic venous thrombosis - toxic metabolic encephalopathy - ESRD on HD - Diastolic CHF - CAD with Hx PCI - mild hypertroponinemia in setting of CARLEY on CKD - Pulmonary HTN - coagulopathy d/t warfarin - PAD with Hx Left BKA - parkinson's - PCN allergic recommendations: - continue IV vancomycin and aztreonem (07/29/16-) empirically - F/u sputum cx (08/02 pending); Blood cx negative to date; Urine Cx N/A (pt anuric) - F/u procalcitonin (08/02 pending) - monitor mental status closely - vent management and weaning per Pulmonary - Above d/w Dr. Alexander - critical care time spent was 45 minutes Consultation Date/Type/Reason Admit Date/Time Jul 26, 2016 at 01:55 Initial Consult Date 07/29/16 Type of Consultation: Infectious Disease Reason for Consultation Antibiotic management Referring Provider: GRACIE KATHLEEN 24 HR Interval Summary Free Text/Dictation Weaned off levophed yesterday, BP remains stable, and pt did not pass CPAP trial and now on Versed gtt for agitation per JUAN MIGUEL Cornejo. Exam/Review of Systems Vital Signs Vitals Vital Signs Date Time Temp Pulse Resp B/P Pulse Ox O2 Delivery O2 Flow Rate FiO2 08/03/16 16:00 97 08/03/16 12:04 40 08/03/16 12:00 23 126/73 100 Mechanical Ventilator 08/03/16 08:00 98.2 07/31/16 20:03 15.0 Intake and Output 08/02/16 08/02/16 08/03/16 15:00 23:00 07:00 Intake Total 819.25 ml 548 ml 88 ml Output Total 3000 ml 0 ml 0 ml Balance -2180.75 ml 548 ml 88 ml Exam Constitutional: Lethargic, frail, other (orally intubated) Head: atraumatic, normocephalic Neck: supple, no bruits Respiratory: diminished breath sounds. No wheezing Cardiovascular: regular rate and rhythm Gastrointestinal: soft, other (OGT is clamped and intact, Lower abdominal ecchymosis spreading horizontally at panus edge). Extremities: edema (trace on RLE), other (LLE BKA noted. LUE AVF with + bruit/ thrill) Neurological: sedated Skin: ecchymosis (few scattered on LLE), nl turgor, other (RUE HL c/d/i) Results Result Diagram: 08/03/16 04008/03/16399 Results 24 hrs Laboratory Tests Test 08/03/16 04:00 Alanine Aminotransferase (ALT/SGPT) 27 Albumin 3.8 Albumin/Globulin Ratio 1.18 Alkaline Phosphatase 104 Anion Gap 19 H Aspartate Amino Transf (AST/SGOT) 16 Basophils # 0.0 Basophils % 0.0 Blood Morphology Comment Blood Urea Nitrogen 44 H Calcium Level 9.4 Carbon Dioxide Level 26 Chloride Level 104 Creatinine 2.69 H Direct Bilirubin 0.00 Eosinophils # 0.0 Eosinophils % 0.0 Globulin 3.20 Glucose Level 380 H Hematocrit 29.9 L Hemoglobin 9.8 L INR International Normalized Ratio 2.50 Indirect Bilirubin 0.0 Lymphocytes # 0.3 L Lymphocytes % 4.4 L Mean Corpuscular Hemoglobin 31.9 Mean Corpuscular Hemoglobin Concent 32.8 Mean Corpuscular Volume 97.1 Mean Platelet Volume 7.9 Monocytes # 0.2 L Monocytes % 3.4 Neutrophils # 6.9 Neutrophils % 92.2 H Nucleated Red Blood Cells # 0.0 Nucleated Red Blood Cells % 0.0 Platelet Count 138 L Potassium Level 3.6 Prothrombin Time 27.3 H Prothrombin Time Ratio 2.1 Random Vancomycin Level 12.7 Red Blood Count 3.08 L Red Cell Distribution Width 14.6 H Sodium Level 145 H Total Bilirubin 0.0 L Total Protein 7.0 White Blood Count 7.4 # Medications Medications Current Medications Fluticasone Propionate (Flonase 0.05% Nasal) 1 spray BID NASAL Last administered on 08/03/16at 09:19; Admin Dose 1 SPRAY; Start 07/26/16 at 10:00 Epoetin [place] (Epogen (Esrd)) 10,000 units MoWeFr@17 SC Last administered on at 18:08; Admin Dose 10,000 UNITS; Start 07/27/16 at 17:00 Hydralazine HCl 10 mg 10 mg Q6H PRN IV ELEVATED BLOOD PRESSURE Last administered on 07/29/16at 12:59; Admin Dose 10 MG; Start 07/29/16 at 13:00 Aztreonam 0.5 gm/ Sodium Chloride 50 ml @ 100 mls/hr Q12 IV Last administered on 08/03/16at 09:30; Admin Dose 100 MLS/HR; Start 07/31/16 at 09:30 Midazolam HCl 50 mg/Dextrose 50 ml @ 1 mls/hr TITRATE IV Last administered on 08/03/16at 10:40; Admin Dose 4 MLS/HR; Start 08/01/16 at 23:00 Fentanyl/Dextrose (D5W) 100 ml @ 2.6 mls/hr TITRATE IV Last administered on at 23:21; Admin Dose 2.6 MLS/HR; Start 08/01/16 at 23:00 Acetaminophen (Tylenol Tab) 650 mg Q6H PRN GTB PAIN1-3/FEVER ABOVE 100; Start 08/02/16 at 15:00 Atorvastatin Calcium (Lipitor) 40 mg HS GTB Last administered on 08/02/16at 21: 23; Admin Dose 40 MG; Start 08/02/16 at 21:00 Carvedilol (Coreg) 6.25 mg BID GTB ; Start 08/02/16 at 09:00; Status Future Hold Duloxetine HCl (Cymbalta) 90 mg DAILY GTB Last administered on 08/03/16at 09:18 ; Admin Dose 90 MG; Start 08/02/16 at 09:00 Guaifenesin (Robitussin Liquid Cup) 100 mg Q4 PRN GTB COUGH; Start 08/02/16 at 09:00 Acetaminophen/ Hydrocodone Bitart ([place] (5/325)) 1 tab Q4 PRN GTB WSOB Last administered on 08/02/16at 12:50; Admin Dose 1 TAB; Start 08/02/16 at 09:00 Lactobacillus Acidoph/Bulgaricus (Floranex) 1 tab DAILY GTB Last administered on 08/03/16at 09:18; Admin Dose 1 TAB; Start 08/02/16 at 09:00 Lorazepam (Ativan) 1 mg Q6H PRN GTB ANXIETY Last administered on 08/03/16at 13: 34; Admin Dose 1 MG; Start 08/02/16 at 09:00 Multivit/Ca Carb/ B Cmplx/FA/Prenat (Cheryl-Darcie) 1 tab DAILY GTB Last administered on 08/03/16at 09:18; Admin Dose 1 TAB; Start 08/02/16 at 09:00 Polyethylene Glycol (Miralax) 17 gm DAILY GTB Last administered on 08/03/16at 09:19; Admin Dose 17 GM; Start 08/02/16 at 09:00 Sildenafil Citrate (Revatio) 20 mg BID GTB ; Start 08/02/16 at 09:00; Status Future Hold Warfarin Sodium (Coumadin) 2 mg DAILY@17 GTB Last administered on 08/02/16at 17 :30; Admin Dose 2 MG; Start 08/02/16 at 17:00 Aspirin (Aspirin) 81 mg DAILY GTB Last administered on 08/03/16at 09:18; Admin Dose 81 MG; Start 08/02/16 at 09:00 Lansoprazole 30 mg 30 mg DAILY@06 GTB Last administered on 08/03/16at 05:36; Admin Dose 30 MG; Start 08/02/16 at 10:00 Norepinephrine/ Dextrose (Levophed/D5W) 500 ml @ 1.87 mls/hr TITRATE IV ; Start 08/02/16 at 15:00 Methylprednisolone Sodium Succinate 40 mg 40 mg BID IV ; Start 08/03/16 at 21: 00 Vancomycin HCl (Vancocin) 250 ml @ 125 mls/hr Q96H IVPB Last administered on 08/03/16at 14:10; Admin Dose 125 MLS/HR; Start 08/03/16 at 14:00 JERICHO CRABTREE NP Aug 03, 2016 16:57
[2016-08-03] MEDS: HYDROCODONE/APAP (5/325) TAB GTB PRN (18:11)
[2016-08-03] MEDS: EPOETIN 10000 UNITS/1 ML INJ (ESRD) SC SCH (18:19)
[2016-08-03] MEDS: WARFARIN 2 MG TAB GTB SCH (18:25)
[2016-08-03] MEDS: ATORVASTATIN 40 MG TAB GTB SCH (21:39)
[2016-08-04] VITALS (47 sets, daily range): BP systolic 72–143; BP diastolic 50–82; PULSE 75–99; RESP 16–45
[2016-08-04] MEDS: ALBUTEROL HFA 8 GM INHALER INH SCH ×7 (00:05→21:48)
[2016-08-04] MEDS: LANSOPRAZOLE 30 MG CAP GTB SCH (05:02)
[2016-08-04 05:07] LABS: INR 2.79; PROTIME 29.8 Sec (12.2-14.2); PT RATIO 2.3
[2016-08-04 05:11] LABS: POTASSIUM 4.3 mmol/L (3.5-5.1)
[2016-08-04 05:13] LABS: CREATININE 3.34 mg/dl (0.61-1.24)
[2016-08-04 05:14] LABS: CALCIUM 8.6 mg/dl (8.4-10.2); MAGNESIUM 2.3 mg/dl (1.7-2.5); PHOSPHORUS 0.6 mg/dl (2.5-4.9)
[2016-08-04 05:15] LABS: HEMATOCRIT 31.9 % (42.0-52.0); HEMOGLOBIN 10.7 g/dl (14.0-18.0); LYMPHOCYTES # 0.5 10^3/ul (0.8-2.9); LYMPHOCYTES % 2.7 % (15.0-51.0); MEAN CORPUSCULAR HEMOGLOBIN 32.4 pg (29.0-33.0); MEAN CORPUSCULAR HGB CONC 33.4 g/dl (32.0-37.0); MEAN PLATELET VOLUME 7.7 fl (7.4-10.4); MONOCYTE # 0.5 10^3/ul (0.3-0.9); MONOCYTES % 3.2 % (0.0-11.0); NEUTROPHIL # 15.8 10^3/ul (1.6-7.5); NEUTROPHILS % 94.1 % (39.0-77.0); PLATELET COUNT 212 10^3/UL (140-440); RED BLOOD COUNT 3.29 10^6/ul (4.70-6.10); UNCORRECTED WBC 16.8 10^3/ul (4.8-10.8); WHITE BLOOD COUNT 16.8 10^3/ul (4.8-10.8)
[2016-08-04 05:30] LABS: CONDITION 1; LH ANALYZER COMMENTS 1
[2016-08-04 08:01] LABS: AADO2 Arterial 104.6 mmHg (7.0-24.0); Arterial Base Excess -0.8 mmol/L (-3.0-3); Arterial COHb 0 % (0.0-3.0); Arterial Fraction of Oxyhgb 98.3 % (93.0-99.0); Arterial HCO3 22.7 mmol/L (22.0-26.0); Arterial MetHb 0.1 % (0.0-1.5); Arterial Total Hemglobin 11.5 g/dl (12.0-18.0); MODE VENT - AC
[2016-08-04] MEDS: SEVELAMER CARBONATE 0.8 GM PKT GTB SCH ×3 (08:16→17:40)
--- NOTE | 2016-08-04 08:26 | CONS ---
Date/Time of Note Date/Time of Note DATE: 08/04/16 TIME: 08:23 Assessment/Plan Assessment/Plan Chief Complaint/Hosp Course Respiratory failure Minimally elevated troponin likely of nonspecific origin Partial right internal jugular DVT Diastolic congestive heart failure Preserved LV function End-stage renal disease on hemodialysis CAD with history of PCI Diabetes Peripheral arterial disease with history of amputation Pulmonary hypertension Problems: Additional Assessment/Plan off sildenafil due to pressor dependent hypotension off HTN meds INR therapeutic on coumadin wean pressor as tolerated Consultation Date/Type/Reason Admit Date/Time Jul 26, 2016 at 01:55 Initial Consult Date 07/29/16 Type of Consultation: cv Referring Provider: GRACIE KATHLEEN 24 HR Interval Summary Free Text/Dictation intubated, non conversant, ventilated Subjective hx not possible: pt non-verbal, pt critical Exam/Review of Systems Vital Signs Vitals Vital Signs Date Time Temp Pulse Resp B/P Pulse Ox O2 Delivery O2 Flow Rate FiO2 08/04/16 05:34 87 16 100 40 08/04/16 02:15 103/62 Mechanical Ventilator 08/03/16 20:15 98.3 07/31/16 20:03 15.0 Intake and Output 08/03/16 08/03/16 08/04/16 15:00 23:00 07:00 Intake Total 440 ml 715 ml 130 ml Output Total 0 ml 0 ml 0 ml Balance 440 ml 715 ml 130 ml Exam Constitutional: non-verbal ENMT: intubated Neck: jvd Respiratory: diminished breath sounds Cardiovascular: regular rate and rhythm Gastrointestinal: soft Musculoskeletal: nl extremities to inspection Extremities: other Neurological: unresponsive Skin: nl turgor Results Result Diagram: 08/04/16 0450 08/04/16 0450 Results 24 hrs Laboratory Tests Test 08/04/16 04:50 08/04/16 07:00 Anion Gap 20 H Basophils # Pending Basophils % Pending Blood Urea Nitrogen 73 H Calcium Level 8.6 Carbon Dioxide Level 23 Chloride Level 103 Creatinine 3.34 H Eosinophils # Pending Eosinophils % Pending Glucose Level 371 H Hematocrit 31.9 L Hemoglobin 10.7 L INR International Normalized Ratio 2.79 Lymphocytes # Pending Lymphocytes % Pending Magnesium Level 2.3 Mean Corpuscular Hemoglobin 32.4 Mean Corpuscular Hemoglobin Concent 33.4 Mean Corpuscular Volume 97.0 Mean Platelet Volume 7.7 Monocytes # Pending Monocytes % Pending Neutrophils # Pending Neutrophils % Pending Nucleated Red Blood Cells # Pending Nucleated Red Blood Cells % Pending Phosphorus Level 0.6 #L Platelet Count 212 # Potassium Level 4.3 Prothrombin Time 29.8 H Prothrombin Time Ratio 2.3 Red Blood Count 3.29 L Red Cell Distribution Width 14.0 Sodium Level 142 White Blood Count 16.8 #H Arterial Blood HCO3 22.7 Arterial Blood Base Excess -0.8 Arterial Blood Oxygen Saturation 98.4 H Jerod Test N/A Arterial Blood Gas Puncture Site Right Brachial Arterial Blood Carboxyhemoglobin 0 Arterial Blood Date Drawn 08/04/2016 7:40:08 AM Arterial Blood Methemoglobin 0.1 Arterial Blood pCO2 (Temp correct) 33.5 L Arterial Blood pH (Temp corrected) 7.449 Arterial Blood pO2 (Temp corrected) 142.1 H Blood Gas A-a O2 Differential 104.6 H Blood Gas Actual Respiration Rate 16 Blood Gas Modality VENT - AC Blood Gas Notified Time 08/04/2016 8:00:52 AM Blood Gas Notified Whom TM Blood Gas Respiration Rate 16.0 Blood Gas Specimen Source Blood arterial Blood Gas Temperature 37.0 Blood Gas Tidal Volume 550.0 FiO2 40.0 Oxyhemoglobin Percent 98.3 Total Hemoglobin 11.5 L Medications Medications Current Medications Fluticasone Propionate (Flonase 0.05% Nasal) 1 spray BID NASAL Last administered on 08/03/16at 09:19; Admin Dose 1 SPRAY; Start 07/26/16 at 10:00 Epoetin [place] (Epogen (Esrd)) 10,000 units MoWeFr@17 SC Last administered on at 18:19; Admin Dose 10,000 UNITS; Start 07/27/16 at 17:00 Hydralazine HCl 10 mg 10 mg Q6H PRN IV ELEVATED BLOOD PRESSURE Last administered on 07/29/16at 12:59; Admin Dose 10 MG; Start 07/29/16 at 13:00 Aztreonam 0.5 gm/ Sodium Chloride 50 ml @ 100 mls/hr Q12 IV Last administered on 08/03/16at 21:39; Admin Dose 100 MLS/HR; Start 07/31/16 at 09:30 Midazolam HCl 50 mg/Dextrose 50 ml @ 1 mls/hr TITRATE IV Last administered on 08/03/16at 22:02; Admin Dose 5 MLS/HR; Start 08/01/16 at 23:00 Fentanyl/Dextrose (D5W) 100 ml @ 2.6 mls/hr TITRATE IV Last administered on at 23:21; Admin Dose 2.6 MLS/HR; Start 08/01/16 at 23:00 Acetaminophen (Tylenol Tab) 650 mg Q6H PRN GTB PAIN1-3/FEVER ABOVE 100; Start 08/02/16 at 15:00 Atorvastatin Calcium (Lipitor) 40 mg HS GTB Last administered on 08/03/16at 21: 39; Admin Dose 40 MG; Start 08/02/16 at 21:00 Carvedilol (Coreg) 6.25 mg BID GTB ; Start 08/02/16 at 09:00; Status Future Hold Duloxetine HCl (Cymbalta) 90 mg DAILY GTB Last administered on 08/03/16at 09:18 ; Admin Dose 90 MG; Start 08/02/16 at 09:00 Guaifenesin (Robitussin Liquid Cup) 100 mg Q4 PRN GTB COUGH; Start 08/02/16 at 09:00 Acetaminophen/ Hydrocodone Bitart ([place] (5/325)) 1 tab Q4 PRN GTB WSOB Last administered on 08/03/16at 18:11; Admin Dose 1 TAB; Start 08/02/16 at 09:00 Lactobacillus Acidoph/Bulgaricus (Floranex) 1 tab DAILY GTB Last administered on 08/03/16at 09:18; Admin Dose 1 TAB; Start 08/02/16 at 09:00 Lorazepam (Ativan) 1 mg Q6H PRN GTB ANXIETY Last administered on 08/03/16at 19: 35; Admin Dose 1 MG; Start 08/02/16 at 09:00 Multivit/Ca Carb/ B Cmplx/FA/Prenat (Cheryl-Darcie) 1 tab DAILY GTB Last administered on 08/03/16at 09:18; Admin Dose 1 TAB; Start 08/02/16 at 09:00 Polyethylene Glycol (Miralax) 17 gm DAILY GTB Last administered on 08/03/16at 09:19; Admin Dose 17 GM; Start 08/02/16 at 09:00 Sildenafil Citrate (Revatio) 20 mg BID GTB ; Start 08/02/16 at 09:00; Status Future Hold Warfarin Sodium (Coumadin) 2 mg DAILY@17 GTB Last administered on 08/03/16at 18 :25; Admin Dose 2 MG; Start 08/02/16 at 17:00 Aspirin (Aspirin) 81 mg DAILY GTB Last administered on 08/03/16at 09:18; Admin Dose 81 MG; Start 08/02/16 at 09:00 Lansoprazole 30 mg 30 mg DAILY@06 GTB Last administered on 08/04/16at 05:02; Admin Dose 30 MG; Start 08/02/16 at 10:00 Norepinephrine/ Dextrose (Levophed/D5W) 500 ml @ 1.87 mls/hr TITRATE IV ; Start 08/02/16 at 15:00 Methylprednisolone Sodium Succinate 40 mg 40 mg BID IV Last administered on at 21:39; Admin Dose 40 MG; Start 08/03/16 at 21:00 Vancomycin HCl (Vancocin) 250 ml @ 125 mls/hr Q96H IVPB Last administered on 08/03/16at 14:10; Admin Dose 125 MLS/HR; Start 08/03/16 at 14:00 LUZ MARIA FRIEDMAN MD Aug 04, 2016 08:26
--- NOTE | 2016-08-04 08:47 | RADRPT ---
PROCEDURE: XR Chest. CLINICAL INDICATION: Chest pain TECHNIQUE: AP view of the chest was performed. COMPARISON: 08/03/2016, 08/02/1960 FINDINGS: The endotracheal tube with its tip above the sofie and feeding tube its tip at the level left hemid iaphragm in the region of the stomach are again demonstrated. The heart is within normal limits. There are mild pulmonary vascular congestive changes. No pleural effusion or focal opacity identifi ed IMPRESSION: 1. Overall no significant interval change from 08/03/2016. 2. Mild pulmonary vascular congestion. RPTAT: QQ .Timoteo Padilla MD, Date Time Electronically viewed and signed by .Timoteo Padilla MD, on 08/04/2016 08:47 .M/
[2016-08-04] MEDS: POLYETHYLENE GLYCOL 17 GM PACKET GTB SCH (09:18)
[2016-08-04] MEDS: MULTIVIT/CA CARB/B CMPLX/FA TAB GTB SCH (09:18)
[2016-08-04] MEDS: ASPIRIN 81 MG TAB GTB SCH (09:18)
[2016-08-04] MEDS: LACTOBACILLUS CHEW TAB GTB SCH (09:18)
[2016-08-04] MEDS: DULOXETINE 30 MG CAP DR GTB SCH (09:18)
[2016-08-04] MEDS: METHYLPREDNISOLONE 40 MG INJ IV SCH ×2 (09:18→21:42)
[2016-08-04] MEDS: FLUTICASONE 0.05% 16 GM NAS SPRAY NASAL SCH ×2 (09:19→21:00)
[2016-08-04] MEDS: AZTREONAM 0.5 GM in SOD CHLORIDE 0.9% 50 ML IV SCH ×2 (09:20→21:41)
--- NOTE | 2016-08-04 10:11 | CONS ---
Date/Time of Note Date/Time of Note DATE: 08/04/16 TIME: 10:09 Consult Date/Type/Reason Admit Date/Time Jul 26, 2016 at 01:55 Initial Consult Date 07/29/16 Type of Consultation: Pulmonary Ordering Provider: GRACIE KATHLEEN Subjective Failed CPAP weaning trial yesterday Currently intubated and sedated appears comfortable at rest Hemodynamically stable no vasopressor support Objective Vital Signs Date Time Temp Pulse Resp B/P Pulse Ox O2 Delivery O2 Flow Rate FiO2 08/04/16 08:00 89 08/04/16 05:34 16 100 40 08/04/16 02:15 103/62 Mechanical Ventilator 08/03/16 20:15 98.3 07/31/16 20:03 15.0 Intake and Output 08/03/16 08/03/16 08/04/16 15:00 23:00 07:00 Intake Total 440 ml 715 ml 130 ml Output Total 0 ml 0 ml 0 ml Balance 440 ml 715 ml 130 ml PHYSICAL EXAMINATION: GENERAL: Chronically ill appearing gentleman, comfortable at rest, no acute distress. on vent VITAL SIGNS: as above NECK: Supple. No JVD or lymphadenopathy. CARDIAC: S1, S2, no added sounds or murmurs. CHEST: Diminished air entry bilaterally. ABDOMEN: Soft, nontender. No guarding or rebound. EXTREMITIES: No cyanosis, clubbing, or edema. NEUROLOGIC: unable to assess Results/Medications Result Diagram: 08/04/16 0450 08/04/16 0450 Results 24 hrs Laboratory Tests Test 08/04/16 04:50 08/04/16 07:00 Anion Gap 20 H Basophils # Pending Basophils % Pending Blood Urea Nitrogen 73 H Calcium Level 8.6 Carbon Dioxide Level 23 Chloride Level 103 Creatinine 3.34 H Eosinophils # Pending Eosinophils % Pending Glucose Level 371 H Hematocrit 31.9 L Hemoglobin 10.7 L INR International Normalized Ratio 2.79 Lymphocytes # Pending Lymphocytes % Pending Magnesium Level 2.3 Mean Corpuscular Hemoglobin 32.4 Mean Corpuscular Hemoglobin Concent 33.4 Mean Corpuscular Volume 97.0 Mean Platelet Volume 7.7 Monocytes # Pending Monocytes % Pending Neutrophils # Pending Neutrophils % Pending Nucleated Red Blood Cells # Pending Nucleated Red Blood Cells % Pending Phosphorus Level 0.6 #L Platelet Count 212 # Potassium Level 4.3 Prothrombin Time 29.8 H Prothrombin Time Ratio 2.3 Red Blood Count 3.29 L Red Cell Distribution Width 14.0 Sodium Level 142 White Blood Count 16.8 #H Arterial Blood HCO3 22.7 Arterial Blood Base Excess -0.8 Arterial Blood Oxygen Saturation 98.4 H Jerod Test N/A Arterial Blood Gas Puncture Site Right Brachial Arterial Blood Carboxyhemoglobin 0 Arterial Blood Date Drawn 08/04/2016 7:40:08 AM Arterial Blood Methemoglobin 0.1 Arterial Blood pCO2 (Temp correct) 33.5 L Arterial Blood pH (Temp corrected) 7.449 Arterial Blood pO2 (Temp corrected) 142.1 H Blood Gas A-a O2 Differential 104.6 H Blood Gas Actual Respiration Rate 16 Blood Gas Modality VENT - AC Blood Gas Notified Time 08/04/2016 8:00:52 AM Blood Gas Notified Whom TM Blood Gas Respiration Rate 16.0 Blood Gas Specimen Source Blood arterial Blood Gas Temperature 37.0 Blood Gas Tidal Volume 550.0 FiO2 40.0 Oxyhemoglobin Percent 98.3 Total Hemoglobin 11.5 L Medications Current Medications Fluticasone Propionate (Flonase 0.05% Nasal) 1 spray BID NASAL Last administered on 08/04/16at 09:19; Admin Dose 1 SPRAY; Start 07/26/16 at 10:00 Epoetin [place] (Epogen (Esrd)) 10,000 units MoWeFr@17 SC Last administered on at 18:19; Admin Dose 10,000 UNITS; Start 07/27/16 at 17:00 Hydralazine HCl 10 mg 10 mg Q6H PRN IV ELEVATED BLOOD PRESSURE Last administered on 07/29/16at 12:59; Admin Dose 10 MG; Start 07/29/16 at 13:00 Aztreonam 0.5 gm/ Sodium Chloride 50 ml @ 100 mls/hr Q12 IV Last administered on 08/04/16at 09:20; Admin Dose 100 MLS/HR; Start 07/31/16 at 09:30 Midazolam HCl 50 mg/Dextrose 50 ml @ 1 mls/hr TITRATE IV Last administered on 08/03/16at 22:02; Admin Dose 5 MLS/HR; Start 08/01/16 at 23:00 Fentanyl/Dextrose (D5W) 100 ml @ 2.6 mls/hr TITRATE IV Last administered on at 23:21; Admin Dose 2.6 MLS/HR; Start 08/01/16 at 23:00 Acetaminophen (Tylenol Tab) 650 mg Q6H PRN GTB PAIN1-3/FEVER ABOVE 100; Start 08/02/16 at 15:00 Atorvastatin Calcium (Lipitor) 40 mg HS GTB Last administered on 08/03/16at 21: 39; Admin Dose 40 MG; Start 08/02/16 at 21:00 Carvedilol (Coreg) 6.25 mg BID GTB ; Start 08/02/16 at 09:00; Status Future Hold Duloxetine HCl (Cymbalta) 90 mg DAILY GTB Last administered on 08/04/16at 09:18 ; Admin Dose 90 MG; Start 08/02/16 at 09:00 Guaifenesin (Robitussin Liquid Cup) 100 mg Q4 PRN GTB COUGH; Start 08/02/16 at 09:00 Acetaminophen/ Hydrocodone Bitart ([place] (5/325)) 1 tab Q4 PRN GTB WSOB Last administered on 08/03/16at 18:11; Admin Dose 1 TAB; Start 08/02/16 at 09:00 Lactobacillus Acidoph/Bulgaricus (Floranex) 1 tab DAILY GTB Last administered on 08/04/16at 09:18; Admin Dose 1 TAB; Start 08/02/16 at 09:00 Lorazepam (Ativan) 1 mg Q6H PRN GTB ANXIETY Last administered on 08/03/16at 19: 35; Admin Dose 1 MG; Start 08/02/16 at 09:00 Multivit/Ca Carb/ B Cmplx/FA/Prenat (Cheryl-Darcie) 1 tab DAILY GTB Last administered on 08/04/16at 09:18; Admin Dose 1 TAB; Start 08/02/16 at 09:00 Polyethylene Glycol (Miralax) 17 gm DAILY GTB Last administered on 08/04/16at 09:18; Admin Dose 17 GM; Start 08/02/16 at 09:00 Sildenafil Citrate (Revatio) 20 mg BID GTB ; Start 08/02/16 at 09:00; Status Future Hold Warfarin Sodium (Coumadin) 2 mg DAILY@17 GTB Last administered on 08/03/16at 18 :25; Admin Dose 2 MG; Start 12/15/16 at 17:00 Aspirin (Aspirin) 81 mg DAILY GTB Last administered on 08/04/16at 09:18; Admin Dose 81 MG; Start 08/02/16 at 09:00 Lansoprazole 30 mg 30 mg DAILY@06 GTB Last administered on 08/04/16at 05:02; Admin Dose 30 MG; Start 08/02/16 at 10:00 Norepinephrine/ Dextrose (Levophed/D5W) 500 ml @ 1.87 mls/hr TITRATE IV ; Start 08/02/16 at 15:00 Methylprednisolone Sodium Succinate 40 mg 40 mg BID IV Last administered on at 09:18; Admin Dose 40 MG; Start 08/03/16 at 21:00 Vancomycin HCl (Vancocin) 250 ml @ 125 mls/hr Q96H IVPB Last administered on 08/03/16at 14:10; Admin Dose 125 MLS/HR; Start 08/03/16 at 14:00 Assessment/Plan Chief Complaint/Hosp Course Assessment 1. Hypoxemic resp failure, acute requiring mechanical ventilation. 2. Pulm edema, right lower lobe infiltrate, possible aspiration pneumonia. 3. Encephalopathy toxic metabolic 4. Diastolic dysf ? 5. Persistent leukocytosis likely polymicrobial Plan 1. Continue Vent, cpap trial today. 2. Hemodialysis per nephrology 3, Aspiration precautions 4. DVT / GI prophylaxis. d/w staff Problems: VALERIE CAMARENA MD, [facility] Aug 04, 2016 10:10
[2016-08-04 10:23] LABS: ANISOCYTOSIS 1+; POIKILOCYTOSIS 1+; POLYCHROMASIA 1+
[2016-08-04 10:24] LABS: OVALOCYTES FEW
--- NOTE | 2016-08-04 13:02 | CONS ---
DATE OF ADMISSION: 07/26/2016 DATE OF CONSULTATION: The patient remains intubated in the ICU, in no acute distress. PHYSICAL EXAMINATION: GENERAL: He continues to be afebrile, blood pressure is 116/70, heart rate is 92 in a sinus rhythm , respirations are 12 on the vent. O2 saturation is 100% on FIO2 of 40%. SKIN: Warm, well perfused. No new lesions. HEAD: Normocephalic. PHARYNX: With an ET tube in place. NECK: No adenopathy. BACK: Lungs are clear. HEART: S1, S2, regular rate and rhythm. ABDOMEN: Soft. EXTREMITIES: Well-functioning AV fistula in the left upper extremity. He is status post a left BKA . LABORATORY DATA: White count is 16.8, hemoglobin 10.7, hematocrit 31.9, platelet count 212,000. IN R is 2.79, potassium is 4.3, calcium 8.6, magnesium is 2.3. Liver tests of yesterday are normal. PROBLEM LIST: 1. End-stage renal disease for planned hemodialysis today. 2. Respiratory failure, remains on the vent, has been vigorously ultrafiltered and is also on antib iotics and steroids. 3. Diabetes mellitus. 4. Recent history of CHF, since resolved. RECOMMENDATIONS: 1. Dialysis today. 2. We will continue his at Solu-Medrol 40 mg IV q.12h. and not further wean at this point. 3. Pulmonary followup. 4. Further recommendations pending response to above. Dictated By: MOSES GUAJARDO MD, MM/OLESYA Conf#: [id number] DID#: [id number]
--- NOTE | 2016-08-04 13:58 | PN ---
Date/Time of Note Date/Time of Note DATE: 08/04/16 TIME: 13:55 Assessment/Plan Lines/Catheters IV Catheter Type (from Nrs): Peripheral IV Urinary Cath still in place: No Assessment/Plan Assessment/Plan 1. Acute respiratory failure, continue ventilator support, bronchodilators, steroids. 2. End-stage renal disease hemodialysis dependent. - having HD now - per Dr. Bassett in nephrology consultation 3. Diastolic congestive heart failure. Continue to remove fluid was hemodialysis. 4. Partial right internal jugular DVT. Continue Coumadin. Continue daily PT PTT. 5. Coronary artery disease with history of PCI. 6. Depression. Continue Cymbalta 7. History of left hip fracture, treated conservatively. 8. Osteoporosis. 9. Pulmonary hypertension. Continue sildenafil. 10. Possible pneumonia, continue aztreonam and vancomycin. Dr. Reardon is following from infectious disease consultation. Protonix for peptic ulcer disease prophylaxis Further recommendations based on clinical course. Total critical time spend = 30 mins Plan of care discussed with Dr. Miramontes. Subjective 24 Hr Interval Summary Free Text/Dictation Unable to wean today, get anxious. Having HD now, BP dropped to 70's- better now -93. dw satff. con to monitor. Constitutional: requiring IVF, requiring O2 Exam/Review of Systems Vital Signs Vitals Vital Signs Date Time Temp Pulse Resp B/P Pulse Ox O2 Delivery O2 Flow Rate FiO2 08/04/16 12:00 88 08/04/16 11:30 16 100 40 08/04/16 11:30 112/64 Mechanical Ventilator 08/04/16 07:30 98.2 07/31/16 20:03 15.0 Intake and Output 08/03/16 08/03/16 08/04/16 15:00 23:00 07:00 Intake Total 440 ml 715 ml 165 ml Output Total 0 ml 0 ml 0 ml Balance 440 ml 715 ml 165 ml Exam Constitutional: frail Eyes: nl sclera ENMT: nl external ears & nose Neck: non-tender Respiratory: diminished breath sounds Cardiovascular: other Gastrointestinal: non-tender, soft Musculoskeletal: other Extremities: other Neurological: lethargic Lymph: nontender Results Result Diagram: 08/04/16 0450 08/04/16 0450 Results 24 hrs Laboratory Tests Test 08/04/16 04:50 08/04/16 07:00 Anion Gap 20 H Anisocytosis 1+ Basophils # 0.0 Basophils % 0.0 Blood Urea Nitrogen 73 H Calcium Level 8.6 Carbon Dioxide Level 23 Chloride Level 103 Creatinine 3.34 H Eosinophils # 0.0 Eosinophils % 0.0 Glucose Level 371 H Hematocrit 31.9 L Hemoglobin 10.7 L INR International Normalized Ratio 2.79 Lymphocytes # 0.5 L Lymphocytes % 2.7 L Magnesium Level 2.3 Mean Corpuscular Hemoglobin 32.4 Mean Corpuscular Hemoglobin Concent 33.4 Mean Corpuscular Volume 97.0 Mean Platelet Volume 7.7 Monocytes # 0.5 Monocytes % 3.2 Neutrophils # 15.8 H Neutrophils % 94.1 H Nucleated Red Blood Cells # 0.0 Nucleated Red Blood Cells % 0.0 Ovalocytes FEW Phosphorus Level 0.6 #L Platelet Count 212 # Polychromasia 1+ Potassium Level 4.3 Prothrombin Time 29.8 H Prothrombin Time Ratio 2.3 Red Blood Count 3.29 L Red Cell Distribution Width 14.0 Sodium Level 142 White Blood Count 16.8 #H Arterial Blood HCO3 22.7 Arterial Blood Base Excess -0.8 Arterial Blood Oxygen Saturation 98.4 H Jerod Test N/A Arterial Blood Gas Puncture Site Right Brachial Arterial Blood Carboxyhemoglobin 0 Arterial Blood Date Drawn 08/04/2016 7:40:08 AM Arterial Blood Methemoglobin 0.1 Arterial Blood pCO2 (Temp correct) 33.5 L Arterial Blood pH (Temp corrected) 7.449 Arterial Blood pO2 (Temp corrected) 142.1 H Blood Gas A-a O2 Differential 104.6 H Blood Gas Actual Respiration Rate 16 Blood Gas Modality VENT - AC Blood Gas Notified Time 08/04/2016 8:00:52 AM Blood Gas Notified Whom TM Blood Gas Respiration Rate 16.0 Blood Gas Specimen Source Blood arterial Blood Gas Temperature 37.0 Blood Gas Tidal Volume 550.0 FiO2 40.0 Oxyhemoglobin Percent 98.3 Total Hemoglobin 11.5 L Medications Medications Current Medications Fluticasone Propionate (Flonase 0.05% Nasal) 1 spray BID NASAL Last administered on 08/04/16at 09:19; Admin Dose 1 SPRAY; Start 07/26/16 at 10:00 Epoetin [place] (Epogen (Esrd)) 10,000 units MoWeFr@17 SC Last administered on at 18:19; Admin Dose 10,000 UNITS; Start 07/27/16 at 17:00 Hydralazine HCl 10 mg 10 mg Q6H PRN IV ELEVATED BLOOD PRESSURE Last administered on 07/29/16at 12:59; Admin Dose 10 MG; Start 07/29/16 at 13:00 Aztreonam 0.5 gm/ Sodium Chloride 50 ml @ 100 mls/hr Q12 IV Last administered on 08/04/16at 09:20; Admin Dose 100 MLS/HR; Start 07/31/16 at 09:30 Midazolam HCl 50 mg/Dextrose 50 ml @ 1 mls/hr TITRATE IV Last administered on 08/03/16at 22:02; Admin Dose 5 MLS/HR; Start 08/01/16 at 23:00 Fentanyl/Dextrose (D5W) 100 ml @ 2.6 mls/hr TITRATE IV Last administered on at 23:21; Admin Dose 2.6 MLS/HR; Start 08/01/16 at 23:00 Acetaminophen (Tylenol Tab) 650 mg Q6H PRN GTB PAIN1-3/FEVER ABOVE 100; Start 08/02/16 at 15:00 Atorvastatin Calcium (Lipitor) 40 mg HS GTB Last administered on 08/03/16at 21: 39; Admin Dose 40 MG; Start 08/02/16 at 21:00 Carvedilol (Coreg) 6.25 mg BID GTB ; Start 08/02/16 at 09:00; Status Future Hold Duloxetine HCl (Cymbalta) 90 mg DAILY GTB Last administered on 08/04/16at 09:18 ; Admin Dose 90 MG; Start 08/02/16 at 09:00 Guaifenesin (Robitussin Liquid Cup) 100 mg Q4 PRN GTB COUGH; Start 08/02/16 at 09:00 Acetaminophen/ Hydrocodone Bitart ([place] (5/325)) 1 tab Q4 PRN GTB WSOB Last administered on 08/03/16at 18:11; Admin Dose 1 TAB; Start 08/02/16 at 09:00 Lactobacillus Acidoph/Bulgaricus (Floranex) 1 tab DAILY GTB Last administered on 08/04/16at 09:18; Admin Dose 1 TAB; Start 08/02/16 at 09:00 Lorazepam (Ativan) 1 mg Q6H PRN GTB ANXIETY Last administered on 08/03/16at 19: 35; Admin Dose 1 MG; Start 08/02/16 at 09:00 Multivit/Ca Carb/ B Cmplx/FA/Prenat (Cheryl-Darcie) 1 tab DAILY GTB Last administered on 08/04/16at 09:18; Admin Dose 1 TAB; Start 08/02/16 at 09:00 Polyethylene Glycol (Miralax) 17 gm DAILY GTB Last administered on 08/04/16at 09:18; Admin Dose 17 GM; Start 08/02/16 at 09:00 Sildenafil Citrate (Revatio) 20 mg BID GTB ; Start 08/02/16 at 09:00; Status Future Hold Warfarin Sodium (Coumadin) 2 mg DAILY@17 GTB Last administered on 08/03/16at 18 :25; Admin Dose 2 MG; Start 08/02/16 at 17:00 Aspirin (Aspirin) 81 mg DAILY GTB Last administered on 08/04/16at 09:18; Admin Dose 81 MG; Start 08/02/16 at 09:00 Lansoprazole 30 mg 30 mg DAILY@06 GTB Last administered on 08/04/16at 05:02; Admin Dose 30 MG; Start 08/02/16 at 10:00 Norepinephrine/ Dextrose (Levophed/D5W) 500 ml @ 1.87 mls/hr TITRATE IV ; Start 08/02/16 at 15:00 Methylprednisolone Sodium Succinate 40 mg 40 mg BID IV Last administered on at 09:18; Admin Dose 40 MG; Start 08/03/16 at 21:00 Vancomycin HCl (Vancocin) 250 ml @ 125 mls/hr Q96H IVPB Last administered on 08/03/16at 14:10; Admin Dose 125 MLS/HR; Start 08/03/16 at 14:00 GRACIE KATHLEEN Aug 04, 2016 13:58
[2016-08-04] MEDS: MIDAZOLAM 50 MG in DEXTROSE 5% 40 ML IV SCH (15:16)
[2016-08-04] MEDS: WARFARIN 2 MG TAB GTB SCH (17:40)
--- NOTE | 2016-08-04 21:01 | CONS ---
Date/Time of Note Date/Time of Note DATE: 08/04/16 TIME: 21:00 Assessment/Plan Assessment/Plan Additional Assessment/Plan assessment/impression - acute hypoxemic respiratory failure - intubated 07/31 - Pulm edema, right lower lobe infiltrate, possible aspiration pneumonia per Pulmonary - persistent hypotension after HD - s/p short term Levophed 08/02 (short term) and restarted on Levophed this evening. - fever on 07/29/2016 - recurrent leukocytosis likely d/t steroid margination - recent RUE cellulitis complicated by axillary/cephalic venous thrombosis - toxic metabolic encephalopathy - ESRD on HD - Diastolic CHF - CAD with Hx PCI - mild hypertroponinemia in setting of CARLEY on CKD - Pulmonary HTN - coagulopathy d/t warfarin - PAD with Hx Left BKA - parkinson's - PCN allergic recommendations: - continue IV vancomycin and aztreonem (07/29/16-) empirically - F/u sputum cx (08/02 rare jerry albicans); Blood cx (negative to date); Urine Cx N/A (pt anuric) - F/u procalcitonin (08/02 still pending) - monitor mental status closely - vent management and weaning per Pulmonary - Above d/w Dr. Alexander - critical care time spent was 45 minutes Consultation Date/Type/Reason Admit Date/Time Jul 26, 2016 at 01:55 Initial Consult Date 07/29/16 Type of Consultation: Infectious Disease Reason for Consultation Antibiotic management Referring Provider: GRACIE KATHLEEN 24 HR Interval Summary Free Text/Dictation Pt intubated and sedated. Failed CPAP trial earlier, HD done today with 2 L removed and pt restarted on Levophed (low dose) this evening for low BP per RN Racquel; tolerating TF at 30 cc /hr. Subjective hx not possible: pt critical Exam/Review of Systems Vital Signs Vitals Vital Signs Date Time Temp Pulse Resp B/P Pulse Ox O2 Delivery O2 Flow Rate FiO2 08/04/16 20:30 90 16 111/67 100 Mechanical Ventilator 08/04/16 20:00 98.2 08/04/16 17:30 40 07/31/16 20:03 15.0 Intake and Output 08/03/16 08/03/16 08/04/16 14:59 22:59 06:59 Intake Total 440 ml 710 ml 165 ml Output Total 0 ml 0 ml 0 ml Balance 440 ml 710 ml 165 ml Exam Constitutional: Sedated, frail, other (orally intubated) Head: atraumatic, normocephalic Neck: supple, no bruits Respiratory: diminished breath sounds. No wheezing Cardiovascular: regular rate and rhythm Gastrointestinal: soft, other (OGT with TF; Lower abdominal ecchymosis spreading horizontally at panus edge). Extremities: edema (trace on RLE), other (LLE BKA noted; LUE AVF with + bruit/ thrill; R foot cool to touch and DP difficult to palpate) Neurological: sedated Skin: ecchymosis (few scattered on RLE), nl turgor, other (RUE HL x2 c/d/i,) Results Result Diagram: 08/04/16 0450 08/04/16 0450 Results 24 hrs Laboratory Tests Test 08/04/16 04:50 08/04/16 07:00 Anion Gap 20 H Anisocytosis 1+ Basophils # 0.0 Basophils % 0.0 Blood Urea Nitrogen 73 H Calcium Level 8.6 Carbon Dioxide Level 23 Chloride Level 103 Creatinine 3.34 H Eosinophils # 0.0 Eosinophils % 0.0 Glucose Level 371 H Hematocrit 31.9 L Hemoglobin 10.7 L INR International Normalized Ratio 2.79 Lymphocytes # 0.5 L Lymphocytes % 2.7 L Magnesium Level 2.3 Mean Corpuscular Hemoglobin 32.4 Mean Corpuscular Hemoglobin Concent 33.4 Mean Corpuscular Volume 97.0 Mean Platelet Volume 7.7 Monocytes # 0.5 Monocytes % 3.2 Neutrophils # 15.8 H Neutrophils % 94.1 H Nucleated Red Blood Cells # 0.0 Nucleated Red Blood Cells % 0.0 Ovalocytes FEW Phosphorus Level 0.6 #L Platelet Count 212 # Polychromasia 1+ Potassium Level 4.3 Prothrombin Time 29.8 H Prothrombin Time Ratio 2.3 Red Blood Count 3.29 L Red Cell Distribution Width 14.0 Sodium Level 142 White Blood Count 16.8 #H Arterial Blood HCO3 22.7 Arterial Blood Base Excess -0.8 Arterial Blood Oxygen Saturation 98.4 H Jerod Test N/A Arterial Blood Gas Puncture Site Right Brachial Arterial Blood Carboxyhemoglobin 0 Arterial Blood Date Drawn 08/04/2016 7:40:08 AM Arterial Blood Methemoglobin 0.1 Arterial Blood pCO2 (Temp correct) 33.5 L Arterial Blood pH (Temp corrected) 7.449 Arterial Blood pO2 (Temp corrected) 142.1 H Blood Gas A-a O2 Differential 104.6 H Blood Gas Actual Respiration Rate 16 Blood Gas Modality VENT - AC Blood Gas Notified Time 08/04/2016 8:00:52 AM Blood Gas Notified Whom TM Blood Gas Respiration Rate 16.0 Blood Gas Specimen Source Blood arterial Blood Gas Temperature 37.0 Blood Gas Tidal Volume 550.0 FiO2 40.0 Oxyhemoglobin Percent 98.3 Total Hemoglobin 11.5 L Medications Medications Current Medications Fluticasone Propionate (Flonase 0.05% Nasal) 1 spray BID NASAL Last administered on 08/04/16at 09:19; Admin Dose 1 SPRAY; Start 07/26/16 at 10:00 Epoetin [place] (Epogen (Esrd)) 10,000 units MoWeFr@17 SC Last administered on at 18:19; Admin Dose 10,000 UNITS; Start 07/27/16 at 17:00 Hydralazine HCl 10 mg 10 mg Q6H PRN IV ELEVATED BLOOD PRESSURE Last administered on 07/29/16at 12:59; Admin Dose 10 MG; Start 07/29/16 at 13:00 Aztreonam 0.5 gm/ Sodium Chloride 50 ml @ 100 mls/hr Q12 IV Last administered on 08/04/16at 09:20; Admin Dose 100 MLS/HR; Start 07/31/16 at 09:30 Midazolam HCl 50 mg/Dextrose 50 ml @ 1 mls/hr TITRATE IV Last administered on 08/04/16at 15:16; Admin Dose 3 MLS/HR; Start 08/01/16 at 23:00 Fentanyl/Dextrose (D5W) 100 ml @ 2.6 mls/hr TITRATE IV Last administered on at 23:21; Admin Dose 2.6 MLS/HR; Start 08/01/16 at 23:00 Acetaminophen (Tylenol Tab) 650 mg Q6H PRN GTB PAIN1-3/FEVER ABOVE 100; Start 08/02/16 at 15:00 Atorvastatin Calcium (Lipitor) 40 mg HS GTB Last administered on 08/03/16at 21: 39; Admin Dose 40 MG; Start 08/02/16 at 21:00 Carvedilol (Coreg) 6.25 mg BID GTB ; Start 08/02/16 at 09:00; Status Future Hold Duloxetine HCl (Cymbalta) 90 mg DAILY GTB Last administered on 08/04/16at 09:18 ; Admin Dose 90 MG; Start 08/02/16 at 09:00 Guaifenesin (Robitussin Liquid Cup) 100 mg Q4 PRN GTB COUGH; Start 08/02/16 at 09:00 Acetaminophen/ Hydrocodone Bitart ([place] (5/325)) 1 tab Q4 PRN GTB WSOB Last administered on 08/03/16at 18:11; Admin Dose 1 TAB; Start 08/02/16 at 09:00 Lactobacillus Acidoph/Bulgaricus (Floranex) 1 tab DAILY GTB Last administered on 08/04/16at 09:18; Admin Dose 1 TAB; Start 08/02/16 at 09:00 Lorazepam (Ativan) 1 mg Q6H PRN GTB ANXIETY Last administered on 08/03/16at 19: 35; Admin Dose 1 MG; Start 08/02/16 at 09:00 Multivit/Ca Carb/ B Cmplx/FA/Prenat (Cheryl-Darcie) 1 tab DAILY GTB Last administered on 08/04/16at 09:18; Admin Dose 1 TAB; Start 08/02/16 at 09:00 Polyethylene Glycol (Miralax) 17 gm DAILY GTB Last administered on 08/04/16at 09:18; Admin Dose 17 GM; Start 08/02/16 at 09:00 Sildenafil Citrate (Revatio) 20 mg BID GTB ; Start 08/02/16 at 09:00; Status Future Hold Warfarin Sodium (Coumadin) 2 mg DAILY@17 GTB Last administered on 08/04/16at 17 :40; Admin Dose 2 MG; Start 08/02/16 at 17:00 Aspirin (Aspirin) 81 mg DAILY GTB Last administered on 08/04/16at 09:18; Admin Dose 81 MG; Start 08/02/16 at 09:00 Lansoprazole 30 mg 30 mg DAILY@06 GTB Last administered on 08/04/16at 05:02; Admin Dose 30 MG; Start 08/02/16 at 10:00 Norepinephrine/ Dextrose (Levophed/D5W) 500 ml @ 1.87 mls/hr TITRATE IV Last administered on 08/04/16at 16:52; Admin Dose 1.87 MLS/HR; Start 08/02/16 at 15: 00 Methylprednisolone Sodium Succinate 40 mg 40 mg BID IV Last administered on at 09:18; Admin Dose 40 MG; Start 08/03/16 at 21:00 Vancomycin HCl (Vancocin) 250 ml @ 125 mls/hr Q96H IVPB Last administered on 08/03/16at 14:10; Admin Dose 125 MLS/HR; Start 08/03/16 at 14:00 Procedures Procedures CXR 08/04/16: 1. Overall no significant interval change from 08/03/2016. 2. Mild pulmonary vascular congestion. JERICHO CRABTREE NP Aug 04, 2016 21:01
[2016-08-04] MEDS: ATORVASTATIN 40 MG TAB GTB SCH (21:41)
[2016-08-05] VITALS (70 sets, daily range): BP systolic 62–154; BP diastolic 45–100; PULSE 92–116; RESP 13–36
[2016-08-05] MEDS: ALBUTEROL HFA 8 GM INHALER INH SCH ×6 (01:20→20:12)
[2016-08-05] MEDS: MIDAZOLAM 50 MG in DEXTROSE 5% 40 ML IV SCH ×2 (04:38→22:01)
[2016-08-05 06:00] LABS: INR 2.06; PROTIME 23.4 Sec (12.2-14.2); PT RATIO 1.8
[2016-08-05 06:01] LABS: ALBUMIN 3.3 g/dl (3.3-4.9)
[2016-08-05 06:04] LABS: ALBUMIN/GLOBULIN RATIO 1.03; BILIRUBIN,INDIRECT 0.2 mg/dl (0-1.1); BILIRUBIN,TOTAL 0.2 mg/dl (0.2-1.3); CALCIUM 8.1 mg/dl (8.4-10.2); CREATININE 2.54 mg/dl (0.61-1.24); TOTAL PROTEIN 6.5 g/dl (6.1-8.1)
[2016-08-05] MEDS: LANSOPRAZOLE 30 MG CAP GTB SCH (06:05)
[2016-08-05] MEDS ORDERED: DEXTROSE 50% 50 ML SYRINGE IV PRN ×4 (08:00→08:30)
[2016-08-05] MEDS ORDERED: LIDOCAINE 1% (MDV) 20 ML INJ SC ONE (08:00)
[2016-08-05] MEDS ORDERED: GLUCAGON 1 MG INJ IM PRN (08:00)
[2016-08-05] MEDS ORDERED: GLUCOSE GEL 15 GRAM TUBE PO PRN ×2 (08:00)
[2016-08-05] MEDS ORDERED: GLUCOSE GEL 15 GRAM TUBE BUCCAL PRN (08:00)
[2016-08-05] MEDS ORDERED: INSULIN ASPART [NOVOLOG] 3 ML PEN SC SCH (08:00)
[2016-08-05] MEDS: SEVELAMER CARBONATE 0.8 GM PKT GTB SCH ×3 (08:08→17:31)
[2016-08-05] MEDS: MULTIVIT/CA CARB/B CMPLX/FA TAB GTB SCH (08:09)
[2016-08-05] MEDS: DULOXETINE 30 MG CAP DR GTB SCH (08:09)
[2016-08-05] MEDS: ASPIRIN 81 MG TAB GTB SCH (08:09)
[2016-08-05] MEDS: LACTOBACILLUS CHEW TAB GTB SCH (08:09)
[2016-08-05] MEDS: POLYETHYLENE GLYCOL 17 GM PACKET GTB SCH (08:09)
[2016-08-05] MEDS: FLUTICASONE 0.05% 16 GM NAS SPRAY NASAL SCH ×2 (08:10→21:00)
[2016-08-05] MEDS: INSULIN REGULAR, HUMAN 100 UNIT in SOD CHLORIDE 0.9% 99 ML IV SCH ×2 (08:47)
[2016-08-05] MEDS: ACCUCHECK XX SCH ×15 (08:49→23:00)
[2016-08-05] MEDS: METHYLPREDNISOLONE 40 MG INJ IV SCH (08:51)
[2016-08-05] MEDS: AZTREONAM 0.5 GM in SOD CHLORIDE 0.9% 50 ML IV SCH (08:52)
[2016-08-05] MEDS ORDERED: NPH, HUMAN INSULIN ISOPHANE 3ML VIAL SC SCH (09:00)
--- NOTE | 2016-08-05 10:18 | RADRPT ---
PROCEDURE: Chest x-ray CLINICAL INDICATION: Shortness of breath TECHNIQUE: Chest single view COMPARISON: 08/04/2016 FINDINGS: Endotracheal tube, and a nasogastric tube remain in good position. There is stable mild cardiomegal y. Pulmonary vessels normal in caliber. Persistent perihilar patchy infiltrate is seen. No new in filtrates are identified. IMPRESSION: 1. Endotracheal tube and nasogastric tube remain in good position. 2. Stable perihilar atelectasis/infiltrate. 3. No new infiltrate RPTAT: HH .Martin Menjivar MD, Date Time Electronically viewed and signed by .Martin Menjivar MD, on 08/05/2016 10:18 .W/
[2016-08-05] MEDS ORDERED: ACETAZOLAMIDE 500 MG INJ IV ONE (10:30)
[2016-08-05] MEDS ORDERED: SOD CHLORIDE 0.9% 500 ML IV ONE (11:30)
[2016-08-05] MEDS ORDERED: PHENYLephrine 80 MG in DEXTROSE 5% 242 ML IV SCH (12:30)
--- NOTE | 2016-08-05 12:45 | CONS ---
Date/Time of Note Date/Time of Note DATE: 08/05/16 TIME: 12:35 Consult Date/Type/Reason Admit Date/Time Jul 26, 2016 at 01:55 Initial Consult Date 07/29/16 Type of Consultation: pulmonary Ordering Provider: GRACIE KATHLEEN Subjective Patient failed CPAP weaning trial yesterday More agitated with increasing vasopressor requirements Continues mechanical ventilation is morning Objective Vital Signs Date Time Temp Pulse Resp B/P Pulse Ox O2 Delivery O2 Flow Rate FiO2 08/05/16 11:30 107 18 97 40 08/05/16 09:30 78/62 Mechanical Ventilator 08/05/16 07:45 98.6 Intake and Output 08/04/16 08/04/16 08/05/16 15:00 23:00 07:00 Intake Total 516 ml 405.62 ml 267 ml Output Total 0 ml Balance 516 ml 405.62 ml 267 ml PHYSICAL EXAMINATION: GENERAL: Chronically ill appearing gentleman, comfortable at rest, no acute distress. on vent VITAL SIGNS: as above NECK: Supple. No JVD or lymphadenopathy. CARDIAC: S1, S2, no added sounds or murmurs. CHEST: Diminished air entry bilaterally. ABDOMEN: Soft, nontender. No guarding or rebound. EXTREMITIES: No cyanosis, clubbing, or edema. NEUROLOGIC: unable to assess Results/Medications Result Diagram: 08/04/16 0450 08/05/16 0515 Results 24 hrs Chest x-ray Mild CHF Laboratory Tests Test 08/05/16 05:15 08/05/16 05:30 08/05/16 08:06 08/05/16 10:08 Alanine Aminotransferase (ALT/SGPT) 30 Albumin 3.3 Albumin/Globulin Ratio 1.03 Alkaline Phosphatase 117 Anion Gap 17 H Aspartate Amino Transf (AST/SGOT) 23 Blood Urea Nitrogen 52 H Calcium Level 8.1 L Carbon Dioxide Level 26 Chloride Level 96 L Creatinine 2.54 H Direct Bilirubin 0.00 Globulin 3.20 Glucose Level 461 *H Indirect Bilirubin 0.2 Potassium Level 4.0 Sodium Level 135 Total Bilirubin 0.2 Total Protein 6.5 INR International Normalized Ratio 2.06 Prothrombin Time 23.4 #H Prothrombin Time Ratio 1.8 Bedside Glucose 429 *H 355 H Test 08/05/16 11:14 08/05/16 12:14 Bedside Glucose 264 H 235 H Medications Current Medications Fluticasone Propionate (Flonase 0.05% Nasal) 1 spray BID NASAL Last administered on 08/05/16at 08:10; Admin Dose 1 SPRAY; Start 07/26/16 at 10:00 Epoetin [place] (Epogen (Esrd)) 10,000 units MoWeFr@17 SC Last administered on at 18:19; Admin Dose 10,000 UNITS; Start 07/27/16 at 17:00 Hydralazine HCl 10 mg 10 mg Q6H PRN IV ELEVATED BLOOD PRESSURE Last administered on 07/29/16at 12:59; Admin Dose 10 MG; Start 07/29/16 at 13:00 Aztreonam 0.5 gm/ Sodium Chloride 50 ml @ 100 mls/hr Q12 IV Last administered on 08/05/16at 08:52; Admin Dose 100 MLS/HR; Start 07/31/16 at 09:30 Midazolam HCl 50 mg/Dextrose 50 ml @ 1 mls/hr TITRATE IV Last administered on 08/05/16at 04:38; Admin Dose 3 MLS/HR; Start 08/01/16 at 23:00 Fentanyl/Dextrose (D5W) 100 ml @ 2.6 mls/hr TITRATE IV Last administered on at 23:21; Admin Dose 2.6 MLS/HR; Start 08/01/16 at 23:00 Acetaminophen (Tylenol Tab) 650 mg Q6H PRN GTB PAIN1-3/FEVER ABOVE 100; Start 08/02/16 at 15:00 Atorvastatin Calcium (Lipitor) 40 mg HS GTB Last administered on 08/04/16at 21: 41; Admin Dose 40 MG; Start 08/02/16 at 21:00 Carvedilol (Coreg) 6.25 mg BID GTB ; Start 08/02/16 at 09:00; Status Future Hold Duloxetine HCl (Cymbalta) 90 mg DAILY GTB Last administered on 08/05/16at 08:09 ; Admin Dose 90 MG; Start 08/02/16 at 09:00 Guaifenesin (Robitussin Liquid Cup) 100 mg Q4 PRN GTB COUGH; Start 08/02/16 at 09:00 Acetaminophen/ Hydrocodone Bitart ([place] (5/325)) 1 tab Q4 PRN GTB WSOB Last administered on 08/03/16at 18:11; Admin Dose 1 TAB; Start 08/02/16 at 09:00 Lactobacillus Acidoph/Bulgaricus (Floranex) 1 tab DAILY GTB Last administered on 08/05/16at 08:09; Admin Dose 1 TAB; Start 08/02/16 at 09:00 Lorazepam (Ativan) 1 mg Q6H PRN GTB ANXIETY Last administered on 08/03/16 19: 35; Admin Dose 1 MG; Start 08/02/16 at 09:00 Multivit/Ca Carb/ B Cmplx/FA/Prenat (Cheryl-Darcie) 1 tab DAILY GTB Last administered on 08/05/16at 08:09; Admin Dose 1 TAB; Start 08/02/16 at 09:00 Polyethylene Glycol (Miralax) 17 gm DAILY GTB Last administered on 08/05/16at 08:09; Admin Dose 17 GM; Start 08/02/16 at 09:00 Sildenafil Citrate (Revatio) 20 mg BID GTB ; Start 08/02/16 at 09:00; Status Future Hold Warfarin Sodium (Coumadin) 2 mg DAILY@17 GTB Last administered on 08/04/16at 17 :40; Admin Dose 2 MG; Start 08/02/16 at 17:00 Aspirin (Aspirin) 81 mg DAILY GTB Last administered on 08/05/16at 08:09; Admin Dose 81 MG; Start 08/02/16 at 09:00 Lansoprazole 30 mg 30 mg DAILY@06 GTB Last administered on 08/05/16at 06:05; Admin Dose 30 MG; Start 08/02/16 at 10:00 Vancomycin HCl (Vancocin) 250 ml @ 125 mls/hr Q96H IVPB Last administered on 08/03/16at 14:10; Admin Dose 125 MLS/HR; Start 08/03/16 at 14:00 Diagnostic Test (Pha) (Accucheck) 1 ea Q1H XX Last administered on 08/05/16at 12:15; Admin Dose 1 EA; Start 08/05/16 at 09:00 Dextrose (D50w Syringe) 25 ml Q15M PRN IV Till BS 80 mg/dL or above x2; Start 08/05/16 at 08:30 Dextrose (D50w Syringe) 50 ml Q15M PRN IV Till BS 80 mg/dL or above x2; Start 08/05/16 at 08:30 Moxifloxacin HCl (Vigamox) 1 drop TID BOTH EYES ; Start 08/05/16 at 13:00; Stop 08/12/16 at 13:00 Methylprednisolone Sodium Succinate 40 mg 40 mg DAILY IV ; Start 08/06/16 at 09 :00 Phenylephrine HCl 80 mg/Dextrose 250 ml @ 18.75 mls/ hr TITRATE IV ; Start at 12:30 Norepinephrine/ Dextrose (Levophed/D5W) 500 ml @ 1.87 mls/hr TITRATE IV ; Start 08/05/16 at 12:00 Assessment/Plan Chief Complaint/Hosp Course Assessment 1. Hypoxemic resp failure, acute requiring mechanical ventilation. 2. Pulm edema, right lower lobe infiltrate, possible aspiration pneumonia. 3. Encephalopathy toxic metabolic 4. Diastolic dysf ? 5. Persistent leukocytosis likely polymicrobial Plan 1. Continue Vent, not stable for CPAP trial at present 2. Hemodialysis per nephrology 3, Aspiration precautions 4. DVT / GI prophylaxis. d/w staff Overall prognosis very poor consider addressing CODE STATUS Problems: VALERIE CAMARENA MD, [facility] Aug 05, 2016 12:45
[2016-08-05] MEDS: MOXIFLOXACIN 0.5% 3 ML OPH BOTH EYES SCH ×2 (13:21→21:50)
--- NOTE | 2016-08-05 13:42 | PN ---
Date/Time of Note Date/Time of Note DATE: 08/05/16 TIME: 13:42 Assessment/Plan Lines/Catheters IV Catheter Type (from Nrs): Peripheral IV Urinary Cath still in place: No Assessment/Plan Assessment/Plan 1. Acute respiratory failure- sp intubation on 07/31 - per pulmonary, continue ventilator support, bronchodilators, steroids. 2. Possible pneumonia- right lower lobe infiltrate- possible aspiration pneumonia per Pulmonary. Sputum grew 08/02 rare jerry albicans - per ID - per Dr. Reardon in infectious disease consultation. 3. Early sepsis d/t C diff - recurrent leukocytosis improving and low grade fever resolving. 4. End-stage renal disease hemodialysis dependent. - per Dr. Bassett in nephrology consultation 5. Diastolic congestive heart failure. Continue to remove fluid was hemodialysis. 6. Partial right internal jugular DVT. Continue Coumadin. Continue daily PT PTT. 7. RUE cellulitis with axillary/cephalic venous thrombosis - PER id 8. Hyperglycemia- GLYCEMIC Control- stable 9. Toxic metabolic encephalopathy 10. Osteoporosis. 11. Pulmonary hypertension. Continue sildenafil. 12. Coronary artery disease with history of PCI. 13. Depression. Continue Cymbalta 14. History of left hip fracture, treated conservatively. Protonix for peptic ulcer disease prophylaxis Further recommendations based on clinical course. Total critical time spend = 30 mins Plan of care discussed with Dr. Miramontes. Protonix for peptic ulcer disease prophylaxis Further recommendations based on clinical course. Total critical time spend = 30 mins Plan of care discussed with Dr. Miramontes. Subjective 24 Hr Interval Summary Free Text/Dictation NAD, opens eyes, bp stable BP. dw staff. Subjective hx not possible: pt non-verbal Constitutional: requiring IVF, requiring O2 Exam/Review of Systems Vital Signs Vitals Vital Signs Date Time Temp Pulse Resp B/P Pulse Ox O2 Delivery O2 Flow Rate FiO2 08/05/16 12:00 107 08/05/16 11:30 18 97 40 08/05/16 09:30 78/62 Mechanical Ventilator 08/05/16 07:45 98.6 Intake and Output 08/04/16 08/04/16 08/05/16 15:00 23:00 07:00 Intake Total 516 ml 405.62 ml 267 ml Output Total 0 ml Balance 516 ml 405.62 ml 267 ml Exam Constitutional: frail Eyes: EOMI, nl sclera ENMT: nl external ears & nose Respiratory: diminished breath sounds Cardiovascular: nl pulses Gastrointestinal: non-tender, soft Musculoskeletal: other Neurological: lethargic Lymph: nontender Results Result Diagram: 08/04/16 0450 08/05/16 0515 Results 24 hrs Laboratory Tests Test 08/05/16 05:15 08/05/16 05:30 08/05/16 08:06 08/05/16 10:08 Alanine Aminotransferase (ALT/SGPT) 30 Albumin 3.3 Albumin/Globulin Ratio 1.03 Alkaline Phosphatase 117 Anion Gap 17 H Aspartate Amino Transf (AST/SGOT) 23 Blood Urea Nitrogen 52 H Calcium Level 8.1 L Carbon Dioxide Level 26 Chloride Level 96 L Creatinine 2.54 H Direct Bilirubin 0.00 Globulin 3.20 Glucose Level 461 *H Indirect Bilirubin 0.2 Potassium Level 4.0 Sodium Level 135 Total Bilirubin 0.2 Total Protein 6.5 INR International Normalized Ratio 2.06 Prothrombin Time 23.4 #H Prothrombin Time Ratio 1.8 Bedside Glucose 429 *H 355 H Test 08/05/16 11:14 08/05/16 12:14 08/05/16 13:17 Bedside Glucose 264 H 235 H 210 Medications Medications Current Medications Fluticasone Propionate (Flonase 0.05% Nasal) 1 spray BID NASAL Last administered on 08/05/16at 08:10; Admin Dose 1 SPRAY; Start 07/26/16 at 10:00 Epoetin [place] (Epogen (Esrd)) 10,000 units MoWeFr@17 SC Last administered on at 18:19; Admin Dose 10,000 UNITS; Start 07/27/16 at 17:00 Hydralazine HCl 10 mg 10 mg Q6H PRN IV ELEVATED BLOOD PRESSURE Last administered on 07/29/16at 12:59; Admin Dose 10 MG; Start 07/29/16 at 13:00 Aztreonam 0.5 gm/ Sodium Chloride 50 ml @ 100 mls/hr Q12 IV Last administered on 08/05/16at 08:52; Admin Dose 100 MLS/HR; Start 07/31/16 at 09:30 Midazolam HCl 50 mg/Dextrose 50 ml @ 1 mls/hr TITRATE IV Last administered on 08/05/16at 04:38; Admin Dose 3 MLS/HR; Start 08/01/16 at 23:00 Fentanyl/Dextrose (D5W) 100 ml @ 2.6 mls/hr TITRATE IV Last administered on at 23:21; Admin Dose 2.6 MLS/HR; Start 08/01/16 at 23:00 Acetaminophen (Tylenol Tab) 650 mg Q6H PRN GTB PAIN1-3/FEVER ABOVE 100; Start 08/02/16 at 15:00 Atorvastatin Calcium (Lipitor) 40 mg HS GTB Last administered on 08/04/16at 21: 41; Admin Dose 40 MG; Start 08/02/16 at 21:00 Carvedilol (Coreg) 6.25 mg BID GTB ; Start 08/02/16 at 09:00; Status Future Hold Duloxetine HCl (Cymbalta) 90 mg DAILY GTB Last administered on 08/05/16at 08:09 ; Admin Dose 90 MG; Start 08/02/16 at 09:00 Guaifenesin (Robitussin Liquid Cup) 100 mg Q4 PRN GTB COUGH; Start 08/02/16 at 09:00 Acetaminophen/ Hydrocodone Bitart ([place] (5/325)) 1 tab Q4 PRN GTB WSOB Last administered on 08/03/16at 18:11; Admin Dose 1 TAB; Start 08/02/16 at 09:00 Lactobacillus Acidoph/Bulgaricus (Floranex) 1 tab DAILY GTB Last administered on 08/05/16at 08:09; Admin Dose 1 TAB; Start 08/02/16 at 09:00 Lorazepam (Ativan) 1 mg Q6H PRN GTB ANXIETY Last administered on 08/03/16at 19: 35; Admin Dose 1 MG; Start 08/02/16 at 09:00 Multivit/Ca Carb/ B Cmplx/FA/Prenat (Cheryl-Darcie) 1 tab DAILY GTB Last administered on 08/05/16at 08:09; Admin Dose 1 TAB; Start 08/02/16 at 09:00 Polyethylene Glycol (Miralax) 17 gm DAILY GTB Last administered on 08/05/16at 08:09; Admin Dose 17 GM; Start 08/02/16 at 09:00 Sildenafil Citrate (Revatio) 20 mg BID GTB ; Start 08/02/16 at 09:00; Status Future Hold Warfarin Sodium (Coumadin) 2 mg DAILY@17 GTB Last administered on 08/04/16at 17 :40; Admin Dose 2 MG; Start 08/02/16 at 17:00 Aspirin (Aspirin) 81 mg DAILY GTB Last administered on 08/05/16at 08:09; Admin Dose 81 MG; Start 08/02/16 at 09:00 Lansoprazole 30 mg 30 mg DAILY@06 GTB Last administered on 08/05/16at 06:05; Admin Dose 30 MG; Start 08/02/16 at 10:00 Vancomycin HCl (Vancocin) 250 ml @ 125 mls/hr Q96H IVPB Last administered on 08/03/16at 14:10; Admin Dose 125 MLS/HR; Start 08/03/16 at 14:00 Diagnostic Test (Pha) (Accucheck) 1 ea Q1H XX Last administered on 08/05/16at 13:18; Admin Dose 1 EA; Start 08/05/16 at 09:00 Dextrose (D50w Syringe) 25 ml Q15M PRN IV Till BS 80 mg/dL or above x2; Start 08/05/16 at 08:30 Dextrose (D50w Syringe) 50 ml Q15M PRN IV Till BS 80 mg/dL or above x2; Start 08/05/16 at 08:30 Moxifloxacin HCl (Vigamox) 1 drop TID BOTH EYES Last administered on at 13:21; Admin Dose 1 DROP; Start 08/05/16 at 13:00; Stop 08/12/16 at 13:00 Methylprednisolone Sodium Succinate 40 mg 40 mg DAILY IV ; Start 08/06/16 at 09 :00 Phenylephrine HCl 80 mg/Dextrose 250 ml @ 18.75 mls/ hr TITRATE IV ; Start at 12:30 Norepinephrine/ Dextrose (Levophed/D5W) 500 ml @ 1.87 mls/hr TITRATE IV ; Start 08/05/16 at 12:00 GRACIE KATHLEEN Aug 05, 2016 13:42 GRACIE KATHLEEN Aug 05, 2016 13:42
--- NOTE | 2016-08-05 14:06 | CONS ---
DATE OF ADMISSION: 07/26/2016 DATE OF CONSULTATION: 08/05/2016 This is a nephrology note on Manav Frank. The patient remains clinically unchanged. Specifically , he is still intubated, albeit awake and alert. Sugars are quite high on the steroids despite me decreasing them yesterday. VITAL SIGNS: He remains afebrile, blood pressure 103/50, heart rate is 88 in sinus rhythm, respirat ions are 12 on the vent. O2 sats are 100% on FIO2 of 40%. SKIN: No rash. HEAD: Normocephalic. EYES: No lesions. Pharynx with an ET tube in place. LUNGS: Show diminished breath sounds, but no wheezes or rales. HEART: S1, S2, regular rhythm. ABDOMEN: Soft. EXTREMITIES: Functioning left upper extremity AV fistula, status post a left BKA. LABORATORY DATA: Potassium is 4.0. Liver function tests are normal. Chest x-ray yesterday was unc hanged. PROBLEM LIST: 1. End-stage renal disease status post dialysis yesterday, will continue dialysis treatments every Saturday, and Saturday per routine. 2. Respiratory failure, currently intubated, remains on the vent, no improvement on antibiotics and steroids. 3. Diabetes mellitus, exacerbated by steroids will further decrease. RECOMMENDATIONS: 1. Further decrease Solu-Medrol. 2. Hopefully, we can wean per pulmonary. 3. Dialysis to be Saturday. Dictated By: MOSES GUAJARDO MD MM/NTS Conf#: [id number] DID#: [id number]
--- NOTE | 2016-08-05 14:40 | CONS ---
Date/Time of Note Date/Time of Note DATE: 08/05/16 TIME: 14:23 Assessment/Plan Assessment/Plan Additional Assessment/Plan Respiratory failure status post intubation Minimally elevated troponin Partial right internal jugular DVT Diastolic congestive heart failure End-stage renal disease on hemodialysis CAD with history of PCI Diabetes Peripheral arterial disease with history of amputation Pulmonary hypertension -pt back on IV pressor after HD yesterday, c/o recurrent sob with weaning. Today 's CXR with no significant change no anti-htn meds or sildenafil at the current time given hypotension. BP improved after fluid bolus, consider maintainance fluids at the current time given requiring increased IV pressor and hypotension. Consultation Date/Type/Reason Admit Date/Time Jul 26, 2016 at 01:55 Type of Consultation: cv Referring Provider: GRACIE KATHLEEN 24 HR Interval Summary Free Text/Dictation pt back on IV pressor after HD yesterday, c/o sob with weaning trials Exam/Review of Systems Vital Signs Vitals Vital Signs Date Time Temp Pulse Resp B/P Pulse Ox O2 Delivery O2 Flow Rate FiO2 08/05/16 12:00 107 08/05/16 11:30 18 97 40 08/05/16 09:30 78/62 Mechanical Ventilator 08/05/16 07:45 98.6 Intake and Output 08/04/16 08/04/16 08/05/16 15:00 23:00 07:00 Intake Total 516 ml 405.62 ml 267 ml Output Total 0 ml Balance 516 ml 405.62 ml 267 ml Exam sedated and intubated Head: normocephalic ENMT: intubated Respiratory: other (course bs, no wheeze) Cardiovascular: other (s1s2), regular rate and rhythm Gastrointestinal: bowel sounds, non-tender, other (bs+), soft Extremities: edema (trace) Results Result Diagram: 08/04/16 0450 08/05/16 0515 Results 24 hrs Laboratory Tests Test 08/05/16 05:15 08/05/16 05:30 08/05/16 08:06 08/05/16 10:08 Alanine Aminotransferase (ALT/SGPT) 30 Albumin 3.3 Albumin/Globulin Ratio 1.03 Alkaline Phosphatase 117 Anion Gap 17 H Aspartate Amino Transf (AST/SGOT) 23 Blood Urea Nitrogen 52 H Calcium Level 8.1 L Carbon Dioxide Level 26 Chloride Level 96 L Creatinine 2.54 H Direct Bilirubin 0.00 Globulin 3.20 Glucose Level 461 *H Indirect Bilirubin 0.2 Potassium Level 4.0 Sodium Level 135 Total Bilirubin 0.2 Total Protein 6.5 INR International Normalized Ratio 2.06 Prothrombin Time 23.4 #H Prothrombin Time Ratio 1.8 Bedside Glucose 429 *H 355 H Test 08/05/16 11:14 08/05/16 12:14 08/05/16 13:17 08/05/16 14:14 Bedside Glucose 264 H 235 H 210 175 Medications Medications Current Medications Fluticasone Propionate (Flonase 0.05% Nasal) 1 spray BID NASAL Last administered on 08/05/16at 08:10; Admin Dose 1 SPRAY; Start 07/26/16 at 10:00 Epoetin [place] (Epogen (Esrd)) 10,000 units MoWeFr@17 SC Last administered on at 18:19; Admin Dose 10,000 UNITS; Start 07/27/16 at 17:00 Hydralazine HCl 10 mg 10 mg Q6H PRN IV ELEVATED BLOOD PRESSURE Last administered on 07/29/16at 12:59; Admin Dose 10 MG; Start 07/29/16 at 13:00 Aztreonam 0.5 gm/ Sodium Chloride 50 ml @ 100 mls/hr Q12 IV Last administered on 08/05/16at 08:52; Admin Dose 100 MLS/HR; Start 07/31/16 at 09:30 Midazolam HCl 50 mg/Dextrose 50 ml @ 1 mls/hr TITRATE IV Last administered on 08/05/16at 04:38; Admin Dose 3 MLS/HR; Start 08/01/16 at 23:00 Fentanyl/Dextrose (D5W) 100 ml @ 2.6 mls/hr TITRATE IV Last administered on at 23:21; Admin Dose 2.6 MLS/HR; Start 08/01/16 at 23:00 Acetaminophen (Tylenol Tab) 650 mg Q6H PRN GTB PAIN1-3/FEVER ABOVE 100; Start 08/02/16 at 15:00 Atorvastatin Calcium (Lipitor) 40 mg HS GTB Last administered on 08/04/16at 21: 41; Admin Dose 40 MG; Start 08/02/16 at 21:00 Carvedilol (Coreg) 6.25 mg BID GTB ; Start 08/02/16 at 09:00; Status Future Hold Duloxetine HCl (Cymbalta) 90 mg DAILY GTB Last administered on 08/05/16at 08:09 ; Admin Dose 90 MG; Start 08/02/16 at 09:00 Guaifenesin (Robitussin Liquid Cup) 100 mg Q4 PRN GTB COUGH; Start 08/02/16 at 09:00 Acetaminophen/ Hydrocodone Bitart ([place] (5/325)) 1 tab Q4 PRN GTB WSOB Last administered on 08/03/16at 18:11; Admin Dose 1 TAB; Start 08/02/16 at 09:00 Lactobacillus Acidoph/Bulgaricus (Floranex) 1 tab DAILY GTB Last administered on 08/05/16at 08:09; Admin Dose 1 TAB; Start 08/02/16 at 09:00 Lorazepam (Ativan) 1 mg Q6H PRN GTB ANXIETY Last administered on 08/03/16at 19: 35; Admin Dose 1 MG; Start 08/02/16 at 09:00 Multivit/Ca Carb/ B Cmplx/FA/Prenat (Cheryl-Darcie) 1 tab DAILY GTB Last administered on 08/05/16at 08:09; Admin Dose 1 TAB; Start 08/02/16 at 09:00 Polyethylene Glycol (Miralax) 17 gm DAILY GTB Last administered on 08/05/16at 08:09; Admin Dose 17 GM; Start 08/02/16 at 09:00 Sildenafil Citrate (Revatio) 20 mg BID GTB ; Start 08/02/16 at 09:00; Status Future Hold Warfarin Sodium (Coumadin) 2 mg DAILY@17 GTB Last administered on 08/04/16at 17 :40; Admin Dose 2 MG; Start 08/02/16 at 17:00 Aspirin (Aspirin) 81 mg DAILY GTB Last administered on 08/05/16at 08:09; Admin Dose 81 MG; Start 08/02/16 at 09:00 Lansoprazole 30 mg 30 mg DAILY@06 GTB Last administered on 08/05/16at 06:05; Admin Dose 30 MG; Start 08/02/16 at 10:00 Vancomycin HCl (Vancocin) 250 ml @ 125 mls/hr Q96H IVPB Last administered on 08/03/16at 14:10; Admin Dose 125 MLS/HR; Start 08/03/16 at 14:00 Diagnostic Test (Pha) (Accucheck) 1 ea Q1H XX Last administered on 08/05/16at 14:15; Admin Dose 1 EA; Start 08/05/16 at 09:00 Dextrose (D50w Syringe) 25 ml Q15M PRN IV Till BS 80 mg/dL or above x2; Start 08/05/16 at 08:30 Dextrose (D50w Syringe) 50 ml Q15M PRN IV Till BS 80 mg/dL or above x2; Start 08/05/16 at 08:30 Moxifloxacin HCl (Vigamox) 1 drop TID BOTH EYES Last administered on at 13:21; Admin Dose 1 DROP; Start 08/05/16 at 13:00; Stop 08/12/16 at 13:00 Methylprednisolone Sodium Succinate 40 mg 40 mg DAILY IV ; Start 08/06/16 at 09 :00 Phenylephrine HCl 80 mg/Dextrose 250 ml @ 18.75 mls/ hr TITRATE IV ; Start at 12:30 Norepinephrine/ Dextrose (Levophed/D5W) 500 ml @ 1.87 mls/hr TITRATE IV ; Start 08/05/16 at 12:00 Solo Leon DO Aug 05, 2016 14:33
[2016-08-05] MEDS: SOD CHLORIDE 0.9% 1,000 ML IV SCH (14:53)
--- NOTE | 2016-08-05 16:42 | CONS ---
Date/Time of Note Date/Time of Note DATE: 08/05/16 TIME: 16:38 Assessment/Plan Assessment/Plan Chief Complaint/Hosp Course assessment/impression - acute hypoxemic respiratory failure - intubated 07/31 - Pulm edema, right lower lobe infiltrate, possible aspiration pneumonia per Pulmonary - persistent hypotension after HD - s/p short term Levophed 08/02 (short term) and restarted on Levophed 08/04/16; on steroid trial. - fever on 07/29/2016 (Sputum grew 08/02 rare jerry albicans; Blood cx negative to date) - recurrent leukocytosis likely d/t steroid margination - recent RUE cellulitis complicated by axillary/cephalic venous thrombosis - toxic metabolic encephalopathy - ESRD on HD - Diastolic CHF - CAD with Hx PCI - mild hypertroponinemia in setting of CARLEY on CKD - Pulmonary HTN - coagulopathy d/t warfarin - PAD with Hx Left BKA - parkinson's - PCN allergic recommendations: - continue IV vancomycin (07/29/16-) and change aztreonam (07/29/16-) to Primaxin 500 mg IV q24h - check tello cultures (blood, sputum, urine) and UA. - F/u procalcitonin (08/02 still pending) - monitor mental status closely - wean pressors as tolerated - vent management and weaning per Pulmonary - Above d/w Dr. Alexander - critical care time spent was 50 minutes Problems: Consultation Date/Type/Reason Admit Date/Time Jul 26, 2016 at 01:55 Initial Consult Date 07/29/16 Type of Consultation: Infectious Disease Reason for Consultation Antibiotic management Referring Provider: GRACIE KATHLEEN 24 HR Interval Summary Free Text/Dictation Levophed increased and currently at 10 mcg and PICC line was inserted per JUAN MIGUEL Jackson. Pt remains intubated and sedated. Subjective hx not possible: pt critical status Exam/Review of Systems Vital Signs Vitals Vital Signs Date Time Temp Pulse Resp B/P Pulse Ox O2 Delivery O2 Flow Rate FiO2 08/05/16 15:30 106 17 96 40 08/05/16 13:45 147/88 Mechanical Ventilator 08/05/16 11:30 97.8 Intake and Output 08/04/16 08/04/16 08/05/16 15:00 23:00 07:00 Intake Total 516 ml 405.62 ml 267 ml Output Total 0 ml Balance 516 ml 405.62 ml 267 ml Exam Constitutional: Sedated, frail, other (orally intubated) Head: atraumatic, normocephalic Neck: supple, no bruits Respiratory: Mild coarse breath sounds. No wheezing Cardiovascular: regular rate and rhythm Gastrointestinal: soft, other (OGT with TF; Lower abdominal ecchymosis spreading horizontally at pannus edge). Extremities: edema (trace on RLE), other (LLE BKA noted; LUE AVF with + bruit/ thrill; R foot cool to touch and DP difficult to palpate; left middle finger partial amputation noted) Neurological: sedated Skin: ecchymosis (few scattered on RLE), nl turgor, other (RUE HL x2 c/d/i, RUE newly inserted PICC c/d/i) Results Result Diagram: 08/04/16 0450 08/05/16 0515 Results 24 hrs Laboratory Tests Test 08/05/16 05:15 08/05/16 05:30 08/05/16 08:06 08/05/16 10:08 Alanine Aminotransferase (ALT/SGPT) 30 Albumin 3.3 Albumin/Globulin Ratio 1.03 Alkaline Phosphatase 117 Anion Gap 17 H Aspartate Amino Transf (AST/SGOT) 23 Blood Urea Nitrogen 52 H Calcium Level 8.1 L Carbon Dioxide Level 26 Chloride Level 96 L Creatinine 2.54 H Direct Bilirubin 0.00 Globulin 3.20 Glucose Level 461 *H Indirect Bilirubin 0.2 Potassium Level 4.0 Sodium Level 135 Total Bilirubin 0.2 Total Protein 6.5 INR International Normalized Ratio 2.06 Prothrombin Time 23.4 #H Prothrombin Time Ratio 1.8 Bedside Glucose 429 *H 355 H Test 08/05/16 11:14 08/05/16 12:14 08/05/16 13:17 08/05/16 14:14 Bedside Glucose 264 H 235 H 210 175 Test 08/05/16 14:59 Bedside Glucose 156 Sputum Cx 08/02/16: Microbiology GRAM STAIN Final POLYMORPH. LEUKOCYTE RARE . NO ORGANISM SEEN RESPIRATORY CULTURE Final Organism 1 JERRY ALBICANS QUANTITY RARE Organism 2 NORMAL RESPIRATORY MEKHI QUANTITY SCANT GROWTH Medications Medications Current Medications Fluticasone Propionate (Flonase 0.05% Nasal) 1 spray BID NASAL Last administered on 08/05/16at 08:10; Admin Dose 1 SPRAY; Start 07/26/16 at 10:00 Epoetin [place] (Epogen (Esrd)) 10,000 units MoWeFr@17 SC Last administered on at 18:19; Admin Dose 10,000 UNITS; Start 07/27/16 at 17:00 Hydralazine HCl 10 mg 10 mg Q6H PRN IV ELEVATED BLOOD PRESSURE Last administered on 07/29/16at 12:59; Admin Dose 10 MG; Start 07/29/16 at 13:00 Aztreonam 0.5 gm/ Sodium Chloride 50 ml @ 100 mls/hr Q12 IV Last administered on 08/05/16at 08:52; Admin Dose 100 MLS/HR; Start 07/31/16 at 09:30 Midazolam HCl 50 mg/Dextrose 50 ml @ 1 mls/hr TITRATE IV Last administered on 08/05/16at 04:38; Admin Dose 3 MLS/HR; Start 08/01/16 at 23:00 Fentanyl/Dextrose (D5W) 100 ml @ 2.6 mls/hr TITRATE IV Last administered on at 23:21; Admin Dose 2.6 MLS/HR; Start 08/01/16 at 23:00 Acetaminophen (Tylenol Tab) 650 mg Q6H PRN GTB PAIN1-3/FEVER ABOVE 100; Start 08/02/16 at 15:00 Atorvastatin Calcium (Lipitor) 40 mg HS GTB Last administered on 08/04/16at 21: 41; Admin Dose 40 MG; Start 08/02/16 at 21:00 Carvedilol (Coreg) 6.25 mg BID GTB ; Start 08/02/16 at 09:00; Status Future Hold Duloxetine HCl (Cymbalta) 90 mg DAILY GTB Last administered on 08/05/16at 08:09 ; Admin Dose 90 MG; Start 08/02/16 at 09:00 Guaifenesin (Robitussin Liquid Cup) 100 mg Q4 PRN GTB COUGH; Start 08/02/16 at 09:00 Acetaminophen/ Hydrocodone Bitart ([place] (5/325)) 1 tab Q4 PRN GTB WSOB Last administered on 08/03/16at 18:11; Admin Dose 1 TAB; Start 08/02/16 at 09:00 Lactobacillus Acidoph/Bulgaricus (Floranex) 1 tab DAILY GTB Last administered on 08/05/16at 08:09; Admin Dose 1 TAB; Start 08/02/16 at 09:00 Lorazepam (Ativan) 1 mg Q6H PRN GTB ANXIETY Last administered on 08/03/16at 19: 35; Admin Dose 1 MG; Start 08/02/16 at 09:00 Multivit/Ca Carb/ B Cmplx/FA/Prenat (Cheryl-Darcie) 1 tab DAILY GTB Last administered on 08/05/16at 08:09; Admin Dose 1 TAB; Start 08/02/16 at 09:00 Polyethylene Glycol (Miralax) 17 gm DAILY GTB Last administered on 08/05/16at 08:09; Admin Dose 17 GM; Start 08/02/16 at 09:00 Sildenafil Citrate (Revatio) 20 mg BID GTB ; Start 08/02/16 at 09:00; Status Future Hold Warfarin Sodium (Coumadin) 2 mg DAILY@17 GTB Last administered on 08/04/16at 17 :40; Admin Dose 2 MG; Start 08/02/16 at 17:00 Aspirin (Aspirin) 81 mg DAILY GTB Last administered on 08/05/16at 08:09; Admin Dose 81 MG; Start 08/02/16 at 09:00 Lansoprazole 30 mg 30 mg DAILY@06 GTB Last administered on 08/05/16at 06:05; Admin Dose 30 MG; Start 08/02/16 at 10:00 Vancomycin HCl (Vancocin) 250 ml @ 125 mls/hr Q96H IVPB Last administered on 08/03/16at 14:10; Admin Dose 125 MLS/HR; Start 08/03/16 at 14:00 Diagnostic Test (Pha) (Accucheck) 1 ea Q1H XX Last administered on 08/05/16at 14:59; Admin Dose 1 EA; Start 08/05/16 at 09:00 Dextrose (D50w Syringe) 25 ml Q15M PRN IV Till BS 80 mg/dL or above x2; Start 08/05/16 at 08:30 Dextrose (D50w Syringe) 50 ml Q15M PRN IV Till BS 80 mg/dL or above x2; Start 08/05/16 at 08:30 Moxifloxacin HCl (Vigamox) 1 drop TID BOTH EYES Last administered on at 13:21; Admin Dose 1 DROP; Start 08/05/16 at 13:00; Stop 08/12/16 at 13:00 Methylprednisolone Sodium Succinate 40 mg 40 mg DAILY IV ; Start 08/06/16 at 09 :00 Phenylephrine HCl 80 mg/Dextrose 250 ml @ 18.75 mls/ hr TITRATE IV ; Start at 12:30 Norepinephrine 16 mg/Dextrose 500 ml @ 1.87 mls/hr TITRATE IV Last administered on 08/05/16at 14:51; Admin Dose 22.5 MLS/HR; Start 08/05/16 at 12: 00 Sodium Chloride (NS) 1,000 ml @ 50 mls/hr Q20H IV Last administered on at 14:53; Admin Dose 50 MLS/HR; Start 08/05/16 at 15:00; Stop 08/06/16 at 11 :00 Procedures Procedures CXR 08/05/16: 1. Endotracheal tube and nasogastric tube remain in good position. 2. Stable perihilar atelectasis/infiltrate. 3. No new infiltrate CT Brain 07/30/16: Examination is degraded due to patient motion artifact. No evidence of focal hematoma, mass effect, or definite acute ischemic changes. Moderate chronic-appearing microvascular ischemic changes of the supratentorial white matter. Venous study 07/26/16: Old partial DVT of the right internal jugular vein. BLE venous study 07/26/16: No evidence of deep vein thrombosis involving either lower extremity. VQ scan 07/26/16: 1. No evidence of deep vein thrombosis involving either lower extremity. JERICHO CRABTREE NP Aug 05, 2016 16:42
[2016-08-05] MEDS: WARFARIN 2 MG TAB GTB SCH (17:31)
--- NOTE | 2016-08-05 17:42 | RADRPT ---
PROCEDURE: Ultrasound fluoroscopic guided PICC line placement CLINICAL INDICATION: PICC line placement COMPARISON: None available TECHNIQUE: Real-time high-resolution ultrasound imaging in transverse and longitudinal planes was p erformed in the upper arm to evaluate venous size and location for needle insertion during PICC line placement. Rv Technician images were submitted. FINDINGS: Focused ultrasound imaging of the upper arm was performed for placement of PICC line. No radiologist was present for the procedure. No diagnosis was made from the images. IMPRESSION: 1. Focused ultrasound for placement of PICC line. RPTAT: QQ .Wali Oakes MD, Date Time Electronically viewed and signed by .Wali Oakes MD, on 08/05/2016 17:41 .M/
[2016-08-05] MEDS: ATORVASTATIN 40 MG TAB GTB SCH (21:49)
[2016-08-05] MEDS: IMIPENEM-CILAST 500MG IV (PMX) 100 ML IVPB SCH (21:49)
[2016-08-06] VITALS (45 sets, daily range): BP systolic 89–140; BP diastolic 48–99; PULSE 95–120; RESP 16–44
[2016-08-06] MEDS: ALBUTEROL HFA 8 GM INHALER INH SCH ×6 (00:12→22:22)
[2016-08-06] MEDS: ACCUCHECK XX SCH ×24 (01:00→23:51)
[2016-08-06 05:11] LABS: INR 2.05; PROTIME 23.3 Sec (12.2-14.2); PT RATIO 1.8
[2016-08-06 05:14] LABS: HEMATOCRIT 35.6 % (42.0-52.0); HEMOGLOBIN 11.6 g/dl (14.0-18.0); MEAN CORPUSCULAR HEMOGLOBIN 32.1 pg (29.0-33.0); MEAN CORPUSCULAR HGB CONC 32.7 g/dl (32.0-37.0); MEAN PLATELET VOLUME 7.8 fl (7.4-10.4); PLATELET COUNT 182 10^3/UL (140-440); RED BLOOD COUNT 3.63 10^6/ul (4.70-6.10); RED CELL DISTRIBUTION WIDTH 14.2 % (11.5-14.5); UNCORRECTED WBC 27.7 10^3/ul (4.8-10.8); WHITE BLOOD COUNT 27.7 10^3/ul (4.8-10.8)
[2016-08-06 05:23] LABS: POTASSIUM 4.4 mmol/L (3.5-5.1)
[2016-08-06 05:25] LABS: CONDITION 1; LH ANALYZER COMMENTS 1; SUSPECT 1
[2016-08-06 05:26] LABS: CREATININE 3.32 mg/dl (0.61-1.24)
[2016-08-06 05:27] LABS: CALCIUM 8.5 mg/dl (8.4-10.2); MAGNESIUM 2.2 mg/dl (1.7-2.5); PHOSPHORUS 0.6 mg/dl (2.5-4.9)
[2016-08-06] MEDS: LANSOPRAZOLE 30 MG CAP GTB SCH (05:27)
--- NOTE | 2016-08-06 08:02 | RADRPT ---
PROCEDURE: XR Chest. CLINICAL INDICATION: Shortness of breath. TECHNIQUE: Single frontal view. COMPARISON: 08/05/2016. FINDINGS: The endotracheal tube and nasogastric tube remain in satisfactory position. There is right perihila r air space disease, unchanged. The heart size is normal. There is no pleural effusion. There is no pneumothorax. IMPRESSION: 1. No change from 08/05/2016. RPTAT: QQ .Luca Hopkins MD, MD Date Time Electronically viewed and signed by .Luca Hopkins MD, MD on 08/06/2016 08:01 .R/
[2016-08-06] MEDS: SEVELAMER CARBONATE 0.8 GM PKT GTB SCH (08:03)
[2016-08-06] MEDS: MULTIVIT/CA CARB/B CMPLX/FA TAB GTB SCH (08:47)
[2016-08-06] MEDS: ASPIRIN 81 MG TAB GTB SCH (08:47)
[2016-08-06] MEDS: MOXIFLOXACIN 0.5% 3 ML OPH BOTH EYES SCH ×3 (08:47→21:01)
[2016-08-06] MEDS: LACTOBACILLUS CHEW TAB GTB SCH (08:47)
[2016-08-06] MEDS: METHYLPREDNISOLONE 40 MG INJ IV SCH (08:48)
[2016-08-06] MEDS: POLYETHYLENE GLYCOL 17 GM PACKET GTB SCH (08:48)
[2016-08-06] MEDS: FLUTICASONE 0.05% 16 GM NAS SPRAY NASAL SCH ×2 (08:48→21:01)
[2016-08-06 09:34] LABS: LYMPHOCYTES # 1.1 10^3/ul (0.8-2.9); MONOCYTE # 1.4 10^3/ul (0.3-0.9); NEUTROPHIL # 23.8 10^3/ul (1.6-7.5)
--- NOTE | 2016-08-06 09:53 | CONS ---
Date/Time of Note Date/Time of Note DATE: 08/06/16 TIME: 09:51 Assessment/Plan Assessment/Plan Additional Assessment/Plan 1. CKD on HD, will plan on hd tomm 2. Inc wbc, ? related to steroids-?? dc, blood cultures are neg 3. Low P, will stop P binder and replete Consultation Date/Type/Reason Admit Date/Time Jul 26, 2016 at 01:55 Type of Consultation: Infectious Disease Referring Provider: GRACIE KATHLEEN 24 HR Interval Summary Subjective hx not possible: other (intubated and sedated) Exam/Review of Systems Vital Signs Vitals Vital Signs Date Time Temp Pulse Resp B/P Pulse Ox O2 Delivery O2 Flow Rate FiO2 08/06/16 08:00 117 08/06/16 08:00 18 99/71 92 Mechanical Ventilator 08/06/16 07:30 100.0 08/06/16 05:30 30 Intake and Output 08/05/16 08/05/16 08/06/16 15:00 23:00 07:00 Intake Total 641 ml 799.0 ml 753 ml Output Total 0 ml Balance 641 ml 799.0 ml 753 ml Exam Neck: No jvd Respiratory: diminished breath sounds Cardiovascular: regular rate and rhythm Gastrointestinal: soft, No hepatomegaly, No splenomegaly Extremities: No edema Results Result Diagram: 08/06/165 08/06/16 0405 Results 24 hrs Laboratory Tests Test 08/05/16 10:08 08/05/16 11:14 08/05/16 12:14 08/05/16 13:17 Bedside Glucose 355 H 264 H 235 H 210 Test 08/05/16 14:14 08/05/16 14:59 08/05/16 16:36 08/05/16 17:24 Bedside Glucose 175 156 178 140 Test 08/05/16 18:47 08/05/16 19:44 08/05/16 21:52 08/05/16 22:50 Bedside Glucose 147 158 156 173 Test 08/05/16 23:47 08/06/16 01:00 08/06/16 02:04 08/06/16 03:11 Bedside Glucose 140 101 99 109 Test 08/06/16 04:05 08/06/16 05:23 08/06/16 06:21 08/06/16 07:17 Anion Gap 18 H Band Neutrophils % 4.0 Blood Urea Nitrogen 69 H Calcium Level 8.5 Carbon Dioxide Level 26 Chloride Level 99 Creatinine 3.32 H Differential Comment MANUAL DIFF Glucose Level 106 # Hematocrit 35.6 L Hemoglobin 11.6 L INR International Normalized Ratio 2.05 Lymphocytes # 1.1 Lymphocytes % 4.0 L Magnesium Level 2.2 Mean Corpuscular Hemoglobin 32.1 Mean Corpuscular Hemoglobin Concent 32.7 Mean Corpuscular Volume 98.0 Mean Platelet Volume 7.8 Monocytes # 1.4 H Monocytes % 5.0 Neutrophils # 23.8 H Neutrophils % 86.0 H Phosphorus Level 0.6 L Platelet Count 182 Potassium Level 4.4 Promyelocytes # 0.3 Promyelocytes % 1.0 H Prothrombin Time 23.3 H Prothrombin Time Ratio 1.8 Red Blood Count 3.63 L Red Cell Distribution Width 14.2 Sodium Level 139 White Blood Count 27.7 #H Bedside Glucose 142 183 212 Test 08/06/16 08:05 08/06/16 09:03 Bedside Glucose 214 162 Medications Medications Current Medications Fluticasone Propionate (Flonase 0.05% Nasal) 1 spray BID NASAL Last administered on 08/06/16at 08:48; Admin Dose 1 SPRAY; Start 07/26/16 at 10:00 Epoetin [place] (Epogen (Esrd)) 10,000 units MoWeFr@17 SC Last administered on at 18:19; Admin Dose 10,000 UNITS; Start 07/27/16 at 17:00 Hydralazine HCl 10 mg 10 mg Q6H PRN IV ELEVATED BLOOD PRESSURE Last administered on 07/29/16at 12:59; Admin Dose 10 MG; Start 07/29/16 at 13:00 Midazolam HCl 50 mg/Dextrose 50 ml @ 1 mls/hr TITRATE IV Last administered on 08/05/16at 22:01; Admin Dose 5 MLS/HR; Start 08/01/16 at 23:00 Fentanyl/Dextrose (D5W) 100 ml @ 2.6 mls/hr TITRATE IV Last administered on at 23:21; Admin Dose 2.6 MLS/HR; Start 08/01/16 at 23:00 Acetaminophen (Tylenol Tab) 650 mg Q6H PRN GTB PAIN1-3/FEVER ABOVE 100; Start 08/02/16 at 15:00 Atorvastatin Calcium (Lipitor) 40 mg HS GTB Last administered on 08/05/16 21: 49; Admin Dose 40 MG; Start 08/02/16 at 21:00 Carvedilol (Coreg) 6.25 mg BID GTB ; Start 08/02/16 at 09:00; Status Future Hold Duloxetine HCl (Cymbalta) 90 mg DAILY GTB Last administered on 08/05/16 08:09 ; Admin Dose 90 MG; Start 08/02/16 at 09:00 Guaifenesin (Robitussin Liquid Cup) 100 mg Q4 PRN GTB COUGH; Start 08/02/16 at 09:00 Acetaminophen/ Hydrocodone Bitart ([place] (5/325)) 1 tab Q4 PRN GTB WSOB Last administered on 08/03/16 18:11; Admin Dose 1 TAB; Start 08/02/16 at 09:00 Lactobacillus Acidoph/Bulgaricus (Floranex) 1 tab DAILY GTB Last administered on 08/06/16 08:47; Admin Dose 1 TAB; Start 08/02/16 at 09:00 Lorazepam (Ativan) 1 mg Q6H PRN GTB ANXIETY Last administered on 08/03/16 19: 35; Admin Dose 1 MG; Start 08/02/16 at 09:00 Multivit/Ca Carb/ B Cmplx/FA/Prenat (Cheryl-Darcie) 1 tab DAILY GTB Last administered on 08/06/16at 08:47; Admin Dose 1 TAB; Start 08/02/16 at 09:00 Polyethylene Glycol (Miralax) 17 gm DAILY GTB Last administered on 08/06/16 08:48; Admin Dose 17 GM; Start 08/02/16 at 09:00 Sildenafil Citrate (Revatio) 20 mg BID GTB ; Start 08/02/16 at 09:00; Status Future Hold Warfarin Sodium (Coumadin) 2 mg DAILY@17 GTB Last administered on 08/05/16 17 :31; Admin Dose 2 MG; Start 08/02/16 at 17:00 Aspirin (Aspirin) 81 mg DAILY GTB Last administered on 08/06/16 08:47; Admin Dose 81 MG; Start 08/02/16 at 09:00 Lansoprazole 30 mg 30 mg DAILY@06 GTB Last administered on 08/06/16 05:27; Admin Dose 30 MG; Start 08/02/16 at 10:00 Vancomycin HCl (Vancocin) 250 ml @ 125 mls/hr Q96H IVPB Last administered on 08/03/16 14:10; Admin Dose 125 MLS/HR; Start 08/03/16 at 14:00 Diagnostic Test (Pha) (Accucheck) 1 ea Q1H XX Last administered on 08/06/16 09:03; Admin Dose 1 EA; Start 08/05/16 at 09:00 Dextrose (D50w Syringe) 25 ml Q15M PRN IV Till BS 80 mg/dL or above x2; Start 08/05/16 at 08:30 Dextrose (D50w Syringe) 50 ml Q15M PRN IV Till BS 80 mg/dL or above x2; Start 08/05/16 at 08:30 Moxifloxacin HCl (Vigamox) 1 drop TID BOTH EYES Last administered on 08:47; Admin Dose 1 DROP; Start 08/05/16 at 13:00; Stop 08/12/16 at 13:00 Methylprednisolone Sodium Succinate 40 mg 40 mg DAILY IV Last administered on 08/06/16 08:48; Admin Dose 40 MG; Start 08/06/16 at 09:00 Phenylephrine HCl 80 mg/Dextrose 250 ml @ 18.75 mls/ hr TITRATE IV ; Start at 12:30 Norepinephrine 16 mg/Dextrose 500 ml @ 1.87 mls/hr TITRATE IV Last administered on 08/05/16at 14:51; Admin Dose 22.5 MLS/HR; Start 08/05/16 at 12: 00 Sodium Chloride 1,000 ml @ 50 mls/hr Q20H IV Last administered on 08/05/16at 14:53; Admin Dose 50 MLS/HR; Start 08/05/16 at 15:00; Stop 08/06/16 at 11:00 Imipenem/ Cilastatin Sodium (Primaxin 500 Mg/ 100 ml (Pmx)) 100 ml @ 100 mls/ hr Q24H IVPB Last administered on 08/05/16at 21:49; Admin Dose 100 MLS/HR; Start 08/05/16 at 21:00 JESSICA ROSARIO MD Aug 06, 2016 09:52
--- NOTE | 2016-08-06 10:17 | CONS ---
Date/Time of Note Date/Time of Note DATE: 08/06/16 TIME: 10:15 Consult Date/Type/Reason Admit Date/Time Jul 26, 2016 at 01:55 Initial Consult Date 07/29/16 Type of Consultation: Pulmonary Ordering Provider: GRACIE KATHLEEN Subjective Patient remains intubated sedated on mechanical ventilation Did not tolerate CPAP weaning trial yesterday Currently hemodynamically stable Significant agitation off sedation Objective Vital Signs Date Time Temp Pulse Resp B/P Pulse Ox O2 Delivery O2 Flow Rate FiO2 08/06/16 08:00 117 08/06/16 08:00 18 99/71 92 Mechanical Ventilator 08/06/16 07:30 100.0 08/06/16 05:30 30 Intake and Output 08/05/16 08/05/16 08/06/16 15:00 23:00 07:00 Intake Total 641 ml 799.0 ml 753 ml Output Total 0 ml Balance 641 ml 799.0 ml 753 ml PHYSICAL EXAMINATION: GENERAL: Chronically ill appearing gentleman, comfortable at rest, no acute distress. on vent VITAL SIGNS: as above NECK: Supple. No JVD or lymphadenopathy. CARDIAC: S1, S2, no added sounds or murmurs. CHEST: Diminished air entry bilaterally. ABDOMEN: Soft, nontender. No guarding or rebound. EXTREMITIES: No cyanosis, clubbing, or edema. NEUROLOGIC: unable to assess Results/Medications Result Diagram: 08/06/16 0405 08/06/16 0405 Results 24 hrs Laboratory Tests Test 08/05/16 11:14 08/05/16 12:14 08/05/16 13:17 08/05/16 14:14 Bedside Glucose 264 H 235 H 210 175 Test 08/05/16 14:59 08/05/16 16:36 08/05/16 17:24 08/05/16 18:47 Bedside Glucose 156 178 140 147 Test 08/05/16 19:44 08/05/16 21:52 08/05/16 22:50 08/05/16 23:47 Bedside Glucose 158 156 173 140 Test 08/06/16 01:00 08/06/16 02:04 08/06/16 03:11 08/06/16 04:05 Bedside Glucose 101 99 109 Anion Gap 18 H Band Neutrophils % 4.0 Blood Urea Nitrogen 69 H Calcium Level 8.5 Carbon Dioxide Level 26 Chloride Level 99 Creatinine 3.32 H Differential Comment MANUAL DIFF Glucose Level 106 # Hematocrit 35.6 L Hemoglobin 11.6 L INR International Normalized Ratio 2.05 Lymphocytes # 1.1 Lymphocytes % 4.0 L Magnesium Level 2.2 Mean Corpuscular Hemoglobin 32.1 Mean Corpuscular Hemoglobin Concent 32.7 Mean Corpuscular Volume 98.0 Mean Platelet Volume 7.8 Monocytes # 1.4 H Monocytes % 5.0 Neutrophils # 23.8 H Neutrophils % 86.0 H Phosphorus Level 0.6 L Platelet Count 182 Potassium Level 4.4 Promyelocytes # 0.3 Promyelocytes % 1.0 H Prothrombin Time 23.3 H Prothrombin Time Ratio 1.8 Red Blood Count 3.63 L Red Cell Distribution Width 14.2 Sodium Level 139 White Blood Count 27.7 #H Test 08/06/16 05:23 08/06/16 06:21 08/06/16 07:17 08/06/16 08:05 Bedside Glucose 142 183 212 214 Test 08/06/16 09:03 Bedside Glucose 162 Medications Current Medications Fluticasone Propionate (Flonase 0.05% Nasal) 1 spray BID NASAL Last administered on 08/06/16at 08:48; Admin Dose 1 SPRAY; Start 07/26/16 at 10:00 Epoetin [place] (Epogen (Esrd)) 10,000 units MoWeFr@17 SC Last administered on at 18:19; Admin Dose 10,000 UNITS; Start 07/27/16 at 17:00 Hydralazine HCl 10 mg 10 mg Q6H PRN IV ELEVATED BLOOD PRESSURE Last administered on 07/29/16at 12:59; Admin Dose 10 MG; Start 07/29/16 at 13:00 Midazolam HCl 50 mg/Dextrose 50 ml @ 1 mls/hr TITRATE IV Last administered on 08/05/16at 22:01; Admin Dose 5 MLS/HR; Start 08/01/16 at 23:00 Fentanyl/Dextrose (D5W) 100 ml @ 2.6 mls/hr TITRATE IV Last administered on at 23:21; Admin Dose 2.6 MLS/HR; Start 08/01/16 at 23:00 Acetaminophen (Tylenol Tab) 650 mg Q6H PRN GTB PAIN1-3/FEVER ABOVE 100; Start 08/02/16 at 15:00 Atorvastatin Calcium (Lipitor) 40 mg HS GTB Last administered on 08/05/16at 21: 49; Admin Dose 40 MG; Start 08/02/16 at 21:00 Carvedilol (Coreg) 6.25 mg BID GTB ; Start 08/02/16 at 09:00; Status Future Hold Duloxetine HCl (Cymbalta) 90 mg DAILY GTB Last administered on 08/05/16at 08:09 ; Admin Dose 90 MG; Start 08/02/16 at 09:00 Guaifenesin (Robitussin Liquid Cup) 100 mg Q4 PRN GTB COUGH; Start 08/02/16 at 09:00 Acetaminophen/ Hydrocodone Bitart ([place] (5/325)) 1 tab Q4 PRN GTB WSOB Last administered on 08/03/16at 18:11; Admin Dose 1 TAB; Start 08/02/16 at 09:00 Lactobacillus Acidoph/Bulgaricus (Floranex) 1 tab DAILY GTB Last administered on 08/06/16at 08:47; Admin Dose 1 TAB; Start 08/02/16 at 09:00 Lorazepam (Ativan) 1 mg Q6H PRN GTB ANXIETY Last administered on 08/03/16at 19: 35; Admin Dose 1 MG; Start 08/02/16 at 09:00 Multivit/Ca Carb/ B Cmplx/FA/Prenat (Cheryl-Darcie) 1 tab DAILY GTB Last administered on 08/06/16at 08:47; Admin Dose 1 TAB; Start 08/02/16 at 09:00 Polyethylene Glycol (Miralax) 17 gm DAILY GTB Last administered on 08/06/16at 08:48; Admin Dose 17 GM; Start 08/02/16 at 09:00 Sildenafil Citrate (Revatio) 20 mg BID GTB ; Start 08/02/16 at 09:00; Status Future Hold Warfarin Sodium (Coumadin) 2 mg DAILY@17 GTB Last administered on 08/05/16at 17 :31; Admin Dose 2 MG; Start 08/02/16 at 17:00 Aspirin (Aspirin) 81 mg DAILY GTB Last administered on 08/06/16at 08:47; Admin Dose 81 MG; Start 08/02/16 at 09:00 Lansoprazole 30 mg 30 mg DAILY@06 GTB Last administered on 08/06/16at 05:27; Admin Dose 30 MG; Start 08/02/16 at 10:00 Vancomycin HCl (Vancocin) 250 ml @ 125 mls/hr Q96H IVPB Last administered on 08/03/16at 14:10; Admin Dose 125 MLS/HR; Start 08/03/16 at 14:00 Diagnostic Test (Pha) (Accucheck) 1 ea Q1H XX Last administered on 08/06/16at 09:03; Admin Dose 1 EA; Start 08/05/16 at 09:00 Dextrose (D50w Syringe) 25 ml Q15M PRN IV Till BS 80 mg/dL or above x2; Start 08/05/16 at 08:30 Dextrose (D50w Syringe) 50 ml Q15M PRN IV Till BS 80 mg/dL or above x2; Start 08/05/16 at 08:30 Moxifloxacin HCl (Vigamox) 1 drop TID BOTH EYES Last administered on at 08:47; Admin Dose 1 DROP; Start 08/05/16 at 13:00; Stop 08/12/16 at 13:00 Methylprednisolone Sodium Succinate 40 mg 40 mg DAILY IV Last administered on 08/06/16at 08:48; Admin Dose 40 MG; Start 08/06/16 at 09:00 Phenylephrine HCl 80 mg/Dextrose 250 ml @ 18.75 mls/ hr TITRATE IV ; Start at 12:30 Norepinephrine 16 mg/Dextrose 500 ml @ 1.87 mls/hr TITRATE IV Last administered on 08/05/16at 14:51; Admin Dose 22.5 MLS/HR; Start 08/05/16 at 12: 00 Sodium Chloride 1,000 ml @ 50 mls/hr Q20H IV Last administered on 08/05/16at 14:53; Admin Dose 50 MLS/HR; Start 08/05/16 at 15:00; Stop 08/06/16 at 11:00 Imipenem/ Cilastatin Sodium 100 ml @ 100 mls/hr Q24H IVPB Last administered on 08/05/16at 21:49; Admin Dose 100 MLS/HR; Start 08/05/16 at 21:00 Sodium Phosphate/ Sodium Chloride (Sodium Phosphate/NS) 260 ml @ 43.333 mls/ hr ONCE ONCE IVPB ; Start 08/06/16 at 11:00; Stop 08/06/16 at 16:59 Assessment/Plan Chief Complaint/Hosp Course assessment 1. Hypoxemic resp failure, acute requiring mechanical ventilation. 2. Pulm edema, right lower lobe infiltrate, possible aspiration pneumonia. 3. Encephalopathy toxic metabolic 4. Diastolic dysf ? 5. Persistent leukocytosis likely polymicrobial sepsis Plan 1. Continue Vent, repeat CPAP trial 2. Hemodialysis per nephrology 3, Aspiration precautions 4. DVT / GI prophylaxis. d/w staff Overall prognosis very poor consider addressing CODE STATUS Problems: VALERIE CAMARENA MD, [facility] Aug 06, 2016 10:17
[2016-08-06] MEDS: DULOXETINE 30 MG CAP DR GTB SCH (10:21)
[2016-08-06] MEDS: LORAZEPAM 1 MG TAB GTB PRN (10:27)
--- NOTE | 2016-08-06 10:30 | CONS ---
Date/Time of Note Date/Time of Note DATE: 08/06/16 TIME: 10:30 Assessment/Plan Assessment/Plan Chief Complaint/Hosp Course assessment/impression - acute hypoxemic respiratory failure - intubated 07/31 - Pulm edema, right lower lobe infiltrate, possible aspiration pneumonia per Pulmonary (Sputum grew 08/02 rare jerry albicans) - persistent hypotension after HD - s/p short term Levophed 08/02 (short term) and restarted on Levophed 08/04/16; on steroid trial. - SIRS vs early sepsis - recurrent leukocytosis likely d/t steroid margination + /- infectious process - fever on 07/29/16 and low grade fever today 08/06/16 (Tello cultures from last night pending; initial Blood cx negative to date) - recent RUE cellulitis complicated by axillary/cephalic venous thrombosis - toxic metabolic encephalopathy - ESRD on HD - Diastolic CHF - CAD with Hx PCI - mild hypertroponinemia in setting of CARLEY on CKD - hypophosphatemia - Pulmonary HTN - coagulopathy d/t warfarin - PAD with Hx Left BKA - parkinson's - PCN allergic recommendations: - continue IV vancomycin (07/29/16-) and Primaxin 500 mg IV q24h (08/05/16-); (s /p aztreonam 07/29-08/05) - F/u tello cultures (blood, sputum, urine) and UA (08/05 results pending). - check stool for cdiff (ordered) - F/u procalcitonin (08/02 still pending) - monitor mental status closely - wean pressors as tolerated - vent management and weaning per Pulmonary - Above d/w Dr. Alexander - critical care time spent was 45 minutes Problems: Consultation Date/Type/Reason Admit Date/Time Jul 26, 2016 at 01:55 Initial Consult Date 07/29/16 Type of Consultation: Infectious Disease Reason for Consultation Antibiotic management Referring Provider: GRACIE KATHLEEN 24 HR Interval Summary Free Text/Dictation Pt with low grade temp currently 100.0 F, worsening leukocytosis, Levophed weaned down to 2 mcg/min, pt with soft BM, and AM phos 0.6 and phos being replaced per RN Renetta. Sedation was turned off and pt withdrawing to pain per RN. Still intubated and non-communicative. Subjective hx not possible: pt critical Exam/Review of Systems Vital Signs Vitals Vital Signs Date Time Temp Pulse Resp B/P Pulse Ox O2 Delivery O2 Flow Rate FiO2 08/06/16 08:00 117 08/06/16 08:00 18 99/71 92 Mechanical Ventilator 08/06/16 07:30 100.0 08/06/16 05:30 30 Intake and Output 08/05/16 08/05/16 08/06/16 15:00 23:00 07:00 Intake Total 641 ml 799.0 ml 753 ml Output Total 0 ml Balance 641 ml 799.0 ml 753 ml Exam Constitutional: Grimaces to suctioning, frail, other (orally intubated) Head: atraumatic, normocephalic Neck: supple, no bruits Respiratory: Coarse breath sounds. No wheezing Cardiovascular: regular rhythm, tachycardic Gastrointestinal: soft, bowel sounds present, other (OGT with TF; Lower abdominal ecchymosis spreading horizontally at pannus edge). Extremities: edema (trace on RLE), other (LLE BKA noted; LUE AVF with + bruit/ thrill; R foot cool to touch and DP difficult to palpate; left middle finger partial amputation noted) Neurological: sedated Skin: ecchymosis (few scattered on RLE), nl turgor, other (RUE PICC and RUE HL x2 all c/d/i) Results Result Diagram: 08/06/16 0405 08/06/16 0405 Results 24 hrs Laboratory Tests Test 08/05/16 11:14 08/05/16 12:14 08/05/16 13:17 08/05/16 14:14 Bedside Glucose 264 H 235 H 210 175 Test 08/05/16 14:59 08/05/16 16:36 08/05/16 17:24 08/05/16 18:47 Bedside Glucose 156 178 140 147 Test 08/05/16 19:44 08/05/16 21:52 08/05/16 22:50 08/05/16 23:47 Bedside Glucose 158 156 173 140 Test 08/06/16 01:00 08/06/16 02:04 08/06/16 03:11 08/06/16 04:05 Bedside Glucose 101 99 109 Anion Gap 18 H Band Neutrophils % 4.0 Blood Urea Nitrogen 69 H Calcium Level 8.5 Carbon Dioxide Level 26 Chloride Level 99 Creatinine 3.32 H Differential Comment MANUAL DIFF Glucose Level 106 # Hematocrit 35.6 L Hemoglobin 11.6 L INR International Normalized Ratio 2.05 Lymphocytes # 1.1 Lymphocytes % 4.0 L Magnesium Level 2.2 Mean Corpuscular Hemoglobin 32.1 Mean Corpuscular Hemoglobin Concent 32.7 Mean Corpuscular Volume 98.0 Mean Platelet Volume 7.8 Monocytes # 1.4 H Monocytes % 5.0 Neutrophils # 23.8 H Neutrophils % 86.0 H Phosphorus Level 0.6 L Platelet Count 182 Potassium Level 4.4 Promyelocytes # 0.3 Promyelocytes % 1.0 H Prothrombin Time 23.3 H Prothrombin Time Ratio 1.8 Red Blood Count 3.63 L Red Cell Distribution Width 14.2 Sodium Level 139 White Blood Count 27.7 #H Test 08/06/16 05:23 08/06/16 06:21 08/06/16 07:17 08/06/16 08:05 Bedside Glucose 142 183 212 214 Test 08/06/16 09:03 08/06/16 10:23 Bedside Glucose 162 145 Sputum cx 08/02/16: GRAM STAIN Final POLYMORPH. LEUKOCYTE RARE . NO ORGANISM SEEN RESPIRATORY CULTURE Final Organism 1 JERRY ALBICANS QUANTITY RARE Organism 2 NORMAL RESPIRATORY MEKHI QUANTITY SCANT GROWTH Medications Medications Current Medications Fluticasone Propionate (Flonase 0.05% Nasal) 1 spray BID NASAL Last administered on 08/06/16at 08:48; Admin Dose 1 SPRAY; Start 07/26/16 at 10:00 Epoetin [place] (Epogen (Esrd)) 10,000 units MoWeFr@17 SC Last administered on at 18:19; Admin Dose 10,000 UNITS; Start 07/27/16 at 17:00 Hydralazine HCl 10 mg 10 mg Q6H PRN IV ELEVATED BLOOD PRESSURE Last administered on 07/29/16at 12:59; Admin Dose 10 MG; Start 07/29/16 at 13:00 Midazolam HCl 50 mg/Dextrose 50 ml @ 1 mls/hr TITRATE IV Last administered on 08/05/16at 22:01; Admin Dose 5 MLS/HR; Start 08/01/16 at 23:00 Fentanyl/Dextrose (D5W) 100 ml @ 2.6 mls/hr TITRATE IV Last administered on at 23:21; Admin Dose 2.6 MLS/HR; Start 08/01/16 at 23:00 Acetaminophen (Tylenol Tab) 650 mg Q6H PRN GTB PAIN1-3/FEVER ABOVE 100; Start 08/02/16 at 15:00 Atorvastatin Calcium (Lipitor) 40 mg HS GTB Last administered on 08/05/16at 21: 49; Admin Dose 40 MG; Start 08/02/16 at 21:00 Carvedilol (Coreg) 6.25 mg BID GTB ; Start 08/02/16 at 09:00; Status Future Hold Duloxetine HCl (Cymbalta) 90 mg DAILY GTB Last administered on 08/06/16at 10:21 ; Admin Dose 90 MG; Start 08/02/16 at 09:00 Guaifenesin (Robitussin Liquid Cup) 100 mg Q4 PRN GTB COUGH; Start 08/02/16 at 09:00 Acetaminophen/ Hydrocodone Bitart ([place] (5/325)) 1 tab Q4 PRN GTB WSOB Last administered on 08/03/16at 18:11; Admin Dose 1 TAB; Start 08/02/16 at 09:00 Lactobacillus Acidoph/Bulgaricus (Floranex) 1 tab DAILY GTB Last administered on 08/06/16at 08:47; Admin Dose 1 TAB; Start 08/02/16 at 09:00 Lorazepam (Ativan) 1 mg Q6H PRN GTB ANXIETY Last administered on 08/06/16 10: 27; Admin Dose 1 MG; Start 08/02/16 at 09:00 Multivit/Ca Carb/ B Cmplx/FA/Prenat (Cheryl-Darcie) 1 tab DAILY GTB Last administered on 08/06/16 08:47; Admin Dose 1 TAB; Start 08/02/16 at 09:00 Polyethylene Glycol (Miralax) 17 gm DAILY GTB Last administered on 08/06/16 08:48; Admin Dose 17 GM; Start 08/02/16 at 09:00 Sildenafil Citrate (Revatio) 20 mg BID GTB ; Start 08/02/16 at 09:00; Status Future Hold Warfarin Sodium (Coumadin) 2 mg DAILY@17 GTB Last administered on 08/05/16at 17 :31; Admin Dose 2 MG; Start 08/02/16 at 17:00 Aspirin (Aspirin) 81 mg DAILY GTB Last administered on 08/06/16at 08:47; Admin Dose 81 MG; Start 08/02/16 at 09:00 Lansoprazole 30 mg 30 mg DAILY@06 GTB Last administered on 08/06/16at 05:27; Admin Dose 30 MG; Start 08/02/16 at 10:00 Vancomycin HCl (Vancocin) 250 ml @ 125 mls/hr Q96H IVPB Last administered on 08/03/16at 14:10; Admin Dose 125 MLS/HR; Start 08/03/16 at 14:00 Diagnostic Test (Pha) (Accucheck) 1 ea Q1H XX Last administered on 08/06/16at 10:24; Admin Dose 1 EA; Start 08/05/16 at 09:00 Dextrose (D50w Syringe) 25 ml Q15M PRN IV Till BS 80 mg/dL or above x2; Start 08/05/16 at 08:30 Dextrose (D50w Syringe) 50 ml Q15M PRN IV Till BS 80 mg/dL or above x2; Start 08/05/16 at 08:30 Moxifloxacin HCl (Vigamox) 1 drop TID BOTH EYES Last administered on at 08:47; Admin Dose 1 DROP; Start 08/05/16 at 13:00; Stop 08/12/16 at 13:00 Methylprednisolone Sodium Succinate 40 mg 40 mg DAILY IV Last administered on 08/06/16at 08:48; Admin Dose 40 MG; Start 08/06/16 at 09:00 Phenylephrine HCl 80 mg/Dextrose 250 ml @ 18.75 mls/ hr TITRATE IV ; Start at 12:30 Norepinephrine 16 mg/Dextrose 500 ml @ 1.87 mls/hr TITRATE IV Last administered on 08/05/16at 14:51; Admin Dose 22.5 MLS/HR; Start 08/05/16 at 12: 00 Sodium Chloride 1,000 ml @ 50 mls/hr Q20H IV Last administered on 08/05/16at 14:53; Admin Dose 50 MLS/HR; Start 08/05/16 at 15:00; Stop 08/06/16 at 11:00 Imipenem/ Cilastatin Sodium 100 ml @ 100 mls/hr Q24H IVPB Last administered on 08/05/16at 21:49; Admin Dose 100 MLS/HR; Start 08/05/16 at 21:00 Sodium Phosphate/ Sodium Chloride (Sodium Phosphate/NS) 260 ml @ 43.333 mls/ hr ONCE ONCE IVPB Last administered on 08/06/16at 10:22; Admin Dose 43.333 MLS /HR; Start 08/06/16 at 11:00; Stop 08/06/16 at 16:59 Procedures Procedures CXR 08/06/16: FINDINGS: The endotracheal tube and nasogastric tube remain in satisfactory position. There is right perihilar air space disease, unchanged. The heart size is normal. There is no pleural effusion. There is no pneumothorax. IMPRESSION: 1. No change from 08/05/2016. CXR 08/05/16: 1. Endotracheal tube and nasogastric tube remain in good position. 2. Stable perihilar atelectasis/infiltrate. 3. No new infiltrate CT Brain 07/30/16: Examination is degraded due to patient motion artifact. No evidence of focal hematoma, mass effect, or definite acute ischemic changes. Moderate chronic-appearing microvascular ischemic changes of the supratentorial white matter. Venous study 07/26/16: Old partial DVT of the right internal jugular vein. BLE venous study 07/26/16: No evidence of deep vein thrombosis involving either lower extremity. VQ scan 07/26/16: 1. No evidence of deep vein thrombosis involving either lower extremity. JERICHO CRABTREE NP Aug 06, 2016 10:30
[2016-08-06] MEDS: SOD CHLORIDE 0.9% 1,000 ML IV SCH (11:00)
[2016-08-06] MEDS ORDERED: SODIUM PHOSPHATE 30 MMOL in SOD CHLORIDE 0.9% 250 ML IVPB ONE (11:00)
--- NOTE | 2016-08-06 13:39 | PN ---
Date/Time of Note Date/Time of Note DATE: 08/06/16 TIME: 13:34 Assessment/Plan VTE Prophylaxis VTE Prophylaxis Intervention: heparin Lines/Catheters IV Catheter Type (from [facility]): Mid Line Urinary Cath still in place: No Assessment/Plan Assessment/Plan 1. Acute respiratory failure- sp intubation on 07/31 - per pulmonary, continue ventilator support, bronchodilators, steroids. 2. Possible pneumonia- right lower lobe infiltrate- possible aspiration pneumonia per Pulmonary. Sputum grew 08/02 rare jerry albicans - per ID - per Dr. Reardon in infectious disease consultation. 3. Early sepsis d/t C diff - recurrent leukocytosis improving and low grade fever resolving. 4. End-stage renal disease hemodialysis dependent. - having HD now - per Dr. Bassett in nephrology consultation 5. Diastolic congestive heart failure. Continue to remove fluid was hemodialysis. 6. Partial right internal jugular DVT. Continue Coumadin. Continue daily PT PTT. 7. C diff stool - per ID - on po Vanco - contact isolation 8. RUE cellulitis with axillary/cephalic venous thrombosis - PER id 9. Hyperglycemia- GLYCEMIC Control- stable 10. Toxic metabolic encephalopathy 11. Osteoporosis. 12. Pulmonary hypertension. Continue sildenafil. 13. Coronary artery disease with history of PCI. 14. Depression. Continue Cymbalta 15. History of left hip fracture, treated conservatively. Protonix for peptic ulcer disease prophylaxis Further recommendations based on clinical course. Total critical time spend = 30 mins Plan of care discussed with Dr. Miramontes. Subjective 24 Hr Interval Summary Constitutional: requiring IVF, requiring O2 Exam/Review of Systems Vital Signs Vitals Vital Signs Date Time Temp Pulse Resp B/P Pulse Ox O2 Delivery O2 Flow Rate FiO2 08/06/16 12:00 109 32 118/66 94 Mechanical Ventilator 08/06/16 11:15 35 08/06/16 07:30 100.0 Intake and Output 08/05/16 08/05/16 08/06/16 15:00 23:00 07:00 Intake Total 641 ml 799.0 ml 753 ml Output Total 0 ml Balance 641 ml 799.0 ml 753 ml Exam Constitutional: frail Eyes: nl sclera ENMT: nl external ears & nose Neck: non-tender Respiratory: diminished breath sounds, other (remains intubated.) Cardiovascular: nl pulses Gastrointestinal: non-tender, soft Musculoskeletal: other Extremities: other Neurological: lethargic Skin: other Lymph: nontender Results Result Diagram: 08/06/16 0405 08/06/16 0405 Results 24 hrs Laboratory Tests Test 08/05/16 14:14 08/05/16 14:59 08/05/16 16:36 08/05/16 17:24 Bedside Glucose 175 156 178 140 Test 08/05/16 18:47 08/05/16 19:44 08/05/16 21:52 08/05/16 22:50 Bedside Glucose 147 158 156 173 Test 08/05/16 23:47 08/06/16 01:00 08/06/16 02:04 08/06/16 03:11 Bedside Glucose 140 101 99 109 Test 08/06/16 04:05 08/06/16 05:23 08/06/16 06:21 08/06/16 07:17 Anion Gap 18 H Band Neutrophils % 4.0 Blood Urea Nitrogen 69 H Calcium Level 8.5 Carbon Dioxide Level 26 Chloride Level 99 Creatinine 3.32 H Differential Comment MANUAL DIFF Glucose Level 106 # Hematocrit 35.6 L Hemoglobin 11.6 L INR International Normalized Ratio 2.05 Lymphocytes # 1.1 Lymphocytes % 4.0 L Magnesium Level 2.2 Mean Corpuscular Hemoglobin 32.1 Mean Corpuscular Hemoglobin Concent 32.7 Mean Corpuscular Volume 98.0 Mean Platelet Volume 7.8 Monocytes # 1.4 H Monocytes % 5.0 Neutrophils # 23.8 H Neutrophils % 86.0 H Phosphorus Level 0.6 L Platelet Count 182 Potassium Level 4.4 Promyelocytes # 0.3 Promyelocytes % 1.0 H Prothrombin Time 23.3 H Prothrombin Time Ratio 1.8 Red Blood Count 3.63 L Red Cell Distribution Width 14.2 Sodium Level 139 White Blood Count 27.7 #H Bedside Glucose 142 183 212 Test 08/06/16 08:05 08/06/16 09:03 08/06/16 10:23 08/06/16 11:47 Bedside Glucose 214 162 145 112 Medications Medications Current Medications Fluticasone Propionate (Flonase 0.05% Nasal) 1 spray BID NASAL Last administered on 08/06/16at 08:48; Admin Dose 1 SPRAY; Start 07/26/16 at 10:00 Epoetin [place] (Epogen (Esrd)) 10,000 units MoWeFr@17 SC Last administered on at 18:19; Admin Dose 10,000 UNITS; Start 07/27/16 at 17:00 Hydralazine HCl 10 mg 10 mg Q6H PRN IV ELEVATED BLOOD PRESSURE Last administered on 07/29/16at 12:59; Admin Dose 10 MG; Start 07/29/16 at 13:00 Midazolam HCl 50 mg/Dextrose 50 ml @ 1 mls/hr TITRATE IV Last administered on 08/05/16at 22:01; Admin Dose 5 MLS/HR; Start 08/01/16 at 23:00 Fentanyl/Dextrose (D5W) 100 ml @ 2.6 mls/hr TITRATE IV Last administered on at 23:21; Admin Dose 2.6 MLS/HR; Start 08/01/16 at 23:00 Acetaminophen (Tylenol Tab) 650 mg Q6H PRN GTB PAIN1-3/FEVER ABOVE 100; Start 08/02/16 at 15:00 Atorvastatin Calcium (Lipitor) 40 mg HS GTB Last administered on 08/05/16at 21: 49; Admin Dose 40 MG; Start 08/02/16 at 21:00 Carvedilol (Coreg) 6.25 mg BID GTB ; Start 08/02/16 at 09:00; Status Future Hold Duloxetine HCl (Cymbalta) 90 mg DAILY GTB Last administered on 08/06/16at 10:21 ; Admin Dose 90 MG; Start 08/02/16 at 09:00 Guaifenesin (Robitussin Liquid Cup) 100 mg Q4 PRN GTB COUGH; Start 08/02/16 at 09:00 Acetaminophen/ Hydrocodone Bitart ([place] (5/325)) 1 tab Q4 PRN GTB WSOB Last administered on 08/03/16at 18:11; Admin Dose 1 TAB; Start 08/02/16 at 09:00 Lactobacillus Acidoph/Bulgaricus (Floranex) 1 tab DAILY GTB Last administered on 08/06/16at 08:47; Admin Dose 1 TAB; Start 08/02/16 at 09:00 Lorazepam (Ativan) 1 mg Q6H PRN GTB ANXIETY Last administered on 08/06/16at 10: 27; Admin Dose 1 MG; Start 08/02/16 at 09:00 Multivit/Ca Carb/ B Cmplx/FA/Prenat (Cheryl-Darcie) 1 tab DAILY GTB Last administered on 08/06/16 08:47; Admin Dose 1 TAB; Start 08/02/16 at 09:00 Polyethylene Glycol (Miralax) 17 gm DAILY GTB Last administered on 08/06/16at 08:48; Admin Dose 17 GM; Start 08/02/16 at 09:00 Sildenafil Citrate (Revatio) 20 mg BID GTB ; Start 08/02/16 at 09:00; Status Future Hold Warfarin Sodium (Coumadin) 2 mg DAILY@17 GTB Last administered on 08/05/16at 17 :31; Admin Dose 2 MG; Start 08/02/16 at 17:00 Aspirin (Aspirin) 81 mg DAILY GTB Last administered on 08/06/16 08:47; Admin Dose 81 MG; Start 08/02/16 at 09:00 Lansoprazole 30 mg 30 mg DAILY@06 GTB Last administered on 08/06/16 05:27; Admin Dose 30 MG; Start 08/02/16 at 10:00 Vancomycin HCl (Vancocin) 250 ml @ 125 mls/hr Q96H IVPB Last administered on 08/03/16 14:10; Admin Dose 125 MLS/HR; Start 08/03/16 at 14:00 Diagnostic Test (Pha) (Accucheck) 1 ea Q1H XX Last administered on 08/06/16at 11:48; Admin Dose 1 EA; Start 08/05/16 at 09:00 Dextrose (D50w Syringe) 25 ml Q15M PRN IV Till BS 80 mg/dL or above x2; Start 08/05/16 at 08:30 Dextrose (D50w Syringe) 50 ml Q15M PRN IV Till BS 80 mg/dL or above x2; Start 08/05/16 at 08:30 Moxifloxacin HCl (Vigamox) 1 drop TID BOTH EYES Last administered on 08:47; Admin Dose 1 DROP; Start 08/05/16 at 13:00; Stop 08/12/16 at 13:00 Methylprednisolone Sodium Succinate 40 mg 40 mg DAILY IV Last administered on 08/06/16at 08:48; Admin Dose 40 MG; Start 08/06/16 at 09:00 Phenylephrine HCl 80 mg/Dextrose 250 ml @ 18.75 mls/ hr TITRATE IV ; Start at 12:30 Norepinephrine 16 mg/Dextrose 500 ml @ 1.87 mls/hr TITRATE IV Last administered on 08/05/16at 14:51; Admin Dose 22.5 MLS/HR; Start 08/05/16 at 12: 00 Imipenem/ Cilastatin Sodium 100 ml @ 100 mls/hr Q24H IVPB Last administered on 08/05/16at 21:49; Admin Dose 100 MLS/HR; Start 08/05/16 at 21:00 Sodium Phosphate/ Sodium Chloride (Sodium Phosphate/NS) 260 ml @ 43.333 mls/ hr ONCE ONCE IVPB Last administered on 08/06/16at 10:22; Admin Dose 43.333 MLS /HR; Start 08/06/16 at 11:00; Stop 08/06/16 at 16:59 GRACIE KATHLEEN Aug 06, 2016 13:39
--- NOTE | 2016-08-06 14:02 | CONS ---
Date/Time of Note Date/Time of Note DATE: 08/06/16 TIME: 14:02 Assessment/Plan Assessment/Plan Additional Assessment/Plan Patient seen and examined. Care coordinated with SARAN Pedraza. Consultation Date/Type/Reason Admit Date/Time Jul 26, 2016 at 01:55 Initial Consult Date 07/29/16 Type of Consultation: Infectious Disease Referring Provider: GRACIE KATHLEEN Exam/Review of Systems Vital Signs Vitals Vital Signs Date Time Temp Pulse Resp B/P Pulse Ox O2 Delivery O2 Flow Rate FiO2 08/06/16 12:00 109 32 118/66 94 Mechanical Ventilator 08/06/16 11:15 35 08/06/16 07:30 100.0 Intake and Output 08/05/16 08/05/16 08/06/16 15:00 23:00 07:00 Intake Total 641 ml 799.0 ml 753 ml Output Total 0 ml Balance 641 ml 799.0 ml 753 ml Results Result Diagram: 08/06/16 0405 08/06/16 0405 Results 24 hrs Laboratory Tests Test 08/05/16 14:14 08/05/16 14:59 08/05/16 16:36 08/05/16 17:24 Bedside Glucose 175 156 178 140 Test 08/05/16 18:47 08/05/16 19:44 08/05/16 21:52 08/05/16 22:50 Bedside Glucose 147 158 156 173 Test 08/05/16 23:47 08/06/16 01:00 08/06/16 02:04 08/06/16 03:11 Bedside Glucose 140 101 99 109 Test 08/06/16 04:05 08/06/16 05:23 08/06/16 06:21 08/06/16 07:17 Anion Gap 18 H Band Neutrophils % 4.0 Blood Urea Nitrogen 69 H Calcium Level 8.5 Carbon Dioxide Level 26 Chloride Level 99 Creatinine 3.32 H Differential Comment MANUAL DIFF Glucose Level 106 # Hematocrit 35.6 L Hemoglobin 11.6 L INR International Normalized Ratio 2.05 Lymphocytes # 1.1 Lymphocytes % 4.0 L Magnesium Level 2.2 Mean Corpuscular Hemoglobin 32.1 Mean Corpuscular Hemoglobin Concent 32.7 Mean Corpuscular Volume 98.0 Mean Platelet Volume 7.8 Monocytes # 1.4 H Monocytes % 5.0 Neutrophils # 23.8 H Neutrophils % 86.0 H Phosphorus Level 0.6 L Platelet Count 182 Potassium Level 4.4 Promyelocytes # 0.3 Promyelocytes % 1.0 H Prothrombin Time 23.3 H Prothrombin Time Ratio 1.8 Red Blood Count 3.63 L Red Cell Distribution Width 14.2 Sodium Level 139 White Blood Count 27.7 #H Bedside Glucose 142 183 212 Test 08/06/16 08:05 08/06/16 09:03 08/06/16 10:23 08/06/16 11:47 Bedside Glucose 214 162 145 112 Test 08/06/16 13:44 Bedside Glucose 158 Medications Medications Current Medications Fluticasone Propionate (Flonase 0.05% Nasal) 1 spray BID NASAL Last administered on 08/06/16at 08:48; Admin Dose 1 SPRAY; Start 07/26/16 at 10:00 Epoetin [place] (Epogen (Esrd)) 10,000 units MoWeFr@17 SC Last administered on at 18:19; Admin Dose 10,000 UNITS; Start 07/27/16 at 17:00 Hydralazine HCl 10 mg 10 mg Q6H PRN IV ELEVATED BLOOD PRESSURE Last administered on 07/29/16at 12:59; Admin Dose 10 MG; Start 07/29/16 at 13:00 Midazolam HCl 50 mg/Dextrose 50 ml @ 1 mls/hr TITRATE IV Last administered on 08/05/16at 22:01; Admin Dose 5 MLS/HR; Start 08/01/16 at 23:00 Fentanyl/Dextrose (D5W) 100 ml @ 2.6 mls/hr TITRATE IV Last administered on at 23:21; Admin Dose 2.6 MLS/HR; Start 08/01/16 at 23:00 Acetaminophen (Tylenol Tab) 650 mg Q6H PRN GTB PAIN1-3/FEVER ABOVE 100; Start 08/02/16 at 15:00 Atorvastatin Calcium (Lipitor) 40 mg HS GTB Last administered on 08/05/16at 21: 49; Admin Dose 40 MG; Start 08/02/16 at 21:00 Carvedilol (Coreg) 6.25 mg BID GTB ; Start 08/02/16 at 09:00; Status Future Hold Duloxetine HCl (Cymbalta) 90 mg DAILY GTB Last administered on 08/06/16 10:21 ; Admin Dose 90 MG; Start 08/02/16 at 09:00 Guaifenesin (Robitussin Liquid Cup) 100 mg Q4 PRN GTB COUGH; Start 08/02/16 at 09:00 Acetaminophen/ Hydrocodone Bitart ([place] (5/325)) 1 tab Q4 PRN GTB WSOB Last administered on 08/03/16 18:11; Admin Dose 1 TAB; Start 08/02/16 at 09:00 Lactobacillus Acidoph/Bulgaricus (Floranex) 1 tab DAILY GTB Last administered on 08/06/16 08:47; Admin Dose 1 TAB; Start 08/02/16 at 09:00 Lorazepam (Ativan) 1 mg Q6H PRN GTB ANXIETY Last administered on 08/06/16 10: 27; Admin Dose 1 MG; Start 08/02/16 at 09:00 Multivit/Ca Carb/ B Cmplx/FA/Prenat (Cheryl-Darcie) 1 tab DAILY GTB Last administered on 08/06/16 08:47; Admin Dose 1 TAB; Start 08/02/16 at 09:00 Polyethylene Glycol (Miralax) 17 gm DAILY GTB Last administered on 08/06/16 08:48; Admin Dose 17 GM; Start 08/02/16 at 09:00 Sildenafil Citrate (Revatio) 20 mg BID GTB ; Start 08/02/16 at 09:00; Status Future Hold Warfarin Sodium (Coumadin) 2 mg DAILY@17 GTB Last administered on 08/05/16 17 :31; Admin Dose 2 MG; Start 08/02/16 at 17:00 Aspirin (Aspirin) 81 mg DAILY GTB Last administered on 08/06/16 08:47; Admin Dose 81 MG; Start 08/02/16 at 09:00 Lansoprazole 30 mg 30 mg DAILY@06 GTB Last administered on 08/06/16 05:27; Admin Dose 30 MG; Start 08/02/16 at 10:00 Vancomycin HCl (Vancocin) 250 ml @ 125 mls/hr Q96H IVPB Last administered on 08/03/16 14:10; Admin Dose 125 MLS/HR; Start 08/03/16 at 14:00 Diagnostic Test (Pha) (Accucheck) 1 ea Q1H XX Last administered on 08/06/16at 13:45; Admin Dose 1 EA; Start 08/05/16 at 09:00 Dextrose (D50w Syringe) 25 ml Q15M PRN IV Till BS 80 mg/dL or above x2; Start 08/05/16 at 08:30 Dextrose (D50w Syringe) 50 ml Q15M PRN IV Till BS 80 mg/dL or above x2; Start 08/05/16 at 08:30 Moxifloxacin HCl (Vigamox) 1 drop TID BOTH EYES Last administered on at 13:45; Admin Dose 1 DROP; Start 08/05/16 at 13:00; Stop 08/12/16 at 13:00 Methylprednisolone Sodium Succinate 40 mg 40 mg DAILY IV Last administered on 08/06/16at 08:48; Admin Dose 40 MG; Start 08/06/16 at 09:00 Phenylephrine HCl 80 mg/Dextrose 250 ml @ 18.75 mls/ hr TITRATE IV ; Start at 12:30 Norepinephrine 16 mg/Dextrose 500 ml @ 1.87 mls/hr TITRATE IV Last administered on 08/05/16at 14:51; Admin Dose 22.5 MLS/HR; Start 08/05/16 at 12: 00 Imipenem/ Cilastatin Sodium 100 ml @ 100 mls/hr Q24H IVPB Last administered on 08/05/16at 21:49; Admin Dose 100 MLS/HR; Start 08/05/16 at 21:00 Sodium Phosphate/ Sodium Chloride (Sodium Phosphate/NS) 260 ml @ 43.333 mls/ hr ONCE ONCE IVPB Last administered on 08/06/16at 10:22; Admin Dose 43.333 MLS /HR; Start 08/06/16 at 11:00; Stop 08/06/16 at 16:59 JOYCE SOARES MD Aug 06, 2016 14:02
[2016-08-06] MEDS: INSULIN REGULAR, HUMAN 100 UNIT in SOD CHLORIDE 0.9% 99 ML IV SCH ×2 (14:03)
--- NOTE | 2016-08-06 14:24 | CONS ---
Date/Time of Note Date/Time of Note DATE: 08/06/16 TIME: 14:22 Assessment/Plan Assessment/Plan Additional Assessment/Plan Respiratory failure status post intubation Minimally elevated troponin Partial right internal jugular DVT Diastolic congestive heart failure End-stage renal disease on hemodialysis CAD with history of PCI Diabetes Peripheral arterial disease with history of amputation Pulmonary hypertension -Patient requiring less IV pressors, leukocytosis is worsening, currently being followed by infectious disease for antibiotics, continue to hold any antihypertensive medications, fluid management as per our nephrology colleagues. Consultation Date/Type/Reason Admit Date/Time Jul 26, 2016 at 01:55 Type of Consultation: cv Referring Provider: GRACIE KATHLEEN 24 HR Interval Summary Free Text/Dictation Patient requiring less IV pressors, otherwise no new cardiac issues as per nursing staff Exam/Review of Systems Vital Signs Vitals Vital Signs Date Time Temp Pulse Resp B/P Pulse Ox O2 Delivery O2 Flow Rate FiO2 08/06/16 12:00 109 32 118/66 94 Mechanical Ventilator 08/06/16 11:15 35 08/06/16 07:30 100.0 Intake and Output 08/05/16 08/05/16 08/06/16 15:00 23:00 07:00 Intake Total 641 ml 799.0 ml 753 ml Output Total 0 ml Balance 641 ml 799.0 ml 753 ml Exam Sedated and intubated, no apparent distress Head: normocephalic Respiratory: other (course breath sounds bilaterally, no wheezing) Cardiovascular: other (S1-S2 heard), regular rate and rhythm Gastrointestinal: bowel sounds, non-tender, soft Extremities: edema Results Result Diagram: 08/06/16 0405 08/06/16 0405 Results 24 hrs Laboratory Tests Test 08/05/16 14:59 08/05/16 16:36 08/05/16 17:24 08/05/16 18:47 Bedside Glucose 156 178 140 147 Test 08/05/16 19:44 08/05/16 21:52 08/05/16 22:50 08/05/16 23:47 Bedside Glucose 158 156 173 140 Test 08/06/16 01:00 08/06/16 02:04 08/06/16 03:11 08/06/16 04:05 Bedside Glucose 101 99 109 Anion Gap 18 H Band Neutrophils % 4.0 Blood Urea Nitrogen 69 H Calcium Level 8.5 Carbon Dioxide Level 26 Chloride Level 99 Creatinine 3.32 H Differential Comment MANUAL DIFF Glucose Level 106 # Hematocrit 35.6 L Hemoglobin 11.6 L INR International Normalized Ratio 2.05 Lymphocytes # 1.1 Lymphocytes % 4.0 L Magnesium Level 2.2 Mean Corpuscular Hemoglobin 32.1 Mean Corpuscular Hemoglobin Concent 32.7 Mean Corpuscular Volume 98.0 Mean Platelet Volume 7.8 Monocytes # 1.4 H Monocytes % 5.0 Neutrophils # 23.8 H Neutrophils % 86.0 H Phosphorus Level 0.6 L Platelet Count 182 Potassium Level 4.4 Promyelocytes # 0.3 Promyelocytes % 1.0 H Prothrombin Time 23.3 H Prothrombin Time Ratio 1.8 Red Blood Count 3.63 L Red Cell Distribution Width 14.2 Sodium Level 139 White Blood Count 27.7 #H Test 08/06/16 05:23 08/06/16 06:21 08/06/16 07:17 08/06/16 08:05 Bedside Glucose 142 183 212 214 Test 08/06/16 09:03 08/06/16 10:23 08/06/16 11:47 08/06/16 13:44 Bedside Glucose 162 145 112 158 Medications Medications Current Medications Fluticasone Propionate (Flonase 0.05% Nasal) 1 spray BID NASAL Last administered on 08/06/16at 08:48; Admin Dose 1 SPRAY; Start 07/26/16 at 10:00 Epoetin [place] (Epogen (Esrd)) 10,000 units MoWeFr@17 SC Last administered on at 18:19; Admin Dose 10,000 UNITS; Start 07/27/16 at 17:00 Hydralazine HCl 10 mg 10 mg Q6H PRN IV ELEVATED BLOOD PRESSURE Last administered on 07/29/16at 12:59; Admin Dose 10 MG; Start 07/29/16 at 13:00 Midazolam HCl 50 mg/Dextrose 50 ml @ 1 mls/hr TITRATE IV Last administered on 08/05/16at 22:01; Admin Dose 5 MLS/HR; Start 08/01/16 at 23:00 Fentanyl/Dextrose (D5W) 100 ml @ 2.6 mls/hr TITRATE IV Last administered on at 23:21; Admin Dose 2.6 MLS/HR; Start 08/01/16 at 23:00 Acetaminophen (Tylenol Tab) 650 mg Q6H PRN GTB PAIN1-3/FEVER ABOVE 100; Start 08/02/16 at 15:00 Atorvastatin Calcium (Lipitor) 40 mg HS GTB Last administered on 08/05/16at 21: 49; Admin Dose 40 MG; Start 08/02/16 at 21:00 Carvedilol (Coreg) 6.25 mg BID GTB ; Start 08/02/16 at 09:00; Status Future Hold Duloxetine HCl (Cymbalta) 90 mg DAILY GTB Last administered on 08/06/16at 10:21 ; Admin Dose 90 MG; Start 08/02/16 at 09:00 Guaifenesin (Robitussin Liquid Cup) 100 mg Q4 PRN GTB COUGH; Start 08/02/16 at 09:00 Acetaminophen/ Hydrocodone Bitart ([place] (5/325)) 1 tab Q4 PRN GTB WSOB Last administered on 08/03/16at 18:11; Admin Dose 1 TAB; Start 08/02/16 at 09:00 Lactobacillus Acidoph/Bulgaricus (Floranex) 1 tab DAILY GTB Last administered on 08/06/16at 08:47; Admin Dose 1 TAB; Start 08/02/16 at 09:00 Lorazepam (Ativan) 1 mg Q6H PRN GTB ANXIETY Last administered on 08/06/16at 10: 27; Admin Dose 1 MG; Start 08/02/16 at 09:00 Multivit/Ca Carb/ B Cmplx/FA/Prenat (Cheryl-Darcie) 1 tab DAILY GTB Last administered on 08/06/16at 08:47; Admin Dose 1 TAB; Start 08/02/16 at 09:00 Polyethylene Glycol (Miralax) 17 gm DAILY GTB Last administered on 08/06/16at 08:48; Admin Dose 17 GM; Start 08/02/16 at 09:00 Sildenafil Citrate (Revatio) 20 mg BID GTB ; Start 08/02/16 at 09:00; Status Future Hold Warfarin Sodium (Coumadin) 2 mg DAILY@17 GTB Last administered on 08/05/16at 17 :31; Admin Dose 2 MG; Start 08/02/16 at 17:00 Aspirin (Aspirin) 81 mg DAILY GTB Last administered on 08/06/16at 08:47; Admin Dose 81 MG; Start 08/02/16 at 09:00 Lansoprazole 30 mg 30 mg DAILY@06 GTB Last administered on 08/06/16 05:27; Admin Dose 30 MG; Start 08/02/16 at 10:00 Vancomycin HCl (Vancocin) 250 ml @ 125 mls/hr Q96H IVPB Last administered on 08/03/16 14:10; Admin Dose 125 MLS/HR; Start 08/03/16 at 14:00 Diagnostic Test (Pha) (Accucheck) 1 ea Q1H XX Last administered on 08/06/16 13:45; Admin Dose 1 EA; Start 08/05/16 at 09:00 Dextrose (D50w Syringe) 25 ml Q15M PRN IV Till BS 80 mg/dL or above x2; Start 08/05/16 at 08:30 Dextrose (D50w Syringe) 50 ml Q15M PRN IV Till BS 80 mg/dL or above x2; Start 08/05/16 at 08:30 Moxifloxacin HCl (Vigamox) 1 drop TID BOTH EYES Last administered on at 13:45; Admin Dose 1 DROP; Start 08/05/16 at 13:00; Stop 08/12/16 at 13:00 Methylprednisolone Sodium Succinate 40 mg 40 mg DAILY IV Last administered on 08/06/16at 08:48; Admin Dose 40 MG; Start 08/06/16 at 09:00 Phenylephrine HCl 80 mg/Dextrose 250 ml @ 18.75 mls/ hr TITRATE IV ; Start at 12:30 Norepinephrine 16 mg/Dextrose 500 ml @ 1.87 mls/hr TITRATE IV Last administered on 08/05/16at 14:51; Admin Dose 22.5 MLS/HR; Start 08/05/16 at 12: 00 Imipenem/ Cilastatin Sodium 100 ml @ 100 mls/hr Q24H IVPB Last administered on 08/05/16 21:49; Admin Dose 100 MLS/HR; Start 08/05/16 at 21:00 Sodium Phosphate/ Sodium Chloride (Sodium Phosphate/NS) 260 ml @ 43.333 mls/ hr ONCE ONCE IVPB Last administered on 08/06/16at 10:22; Admin Dose 43.333 MLS /HR; Start 12/19/16 at 11:00; Stop 08/06/16 at 16:59 Solo Leon DO Aug 06, 2016 14:24
[2016-08-06] MEDS: EPOETIN 10000 UNITS/1 ML INJ (ESRD) SC SCH (17:00)
[2016-08-06] MEDS: VANCOMYCIN HCL 250 MG/5ML POSYG NGT SCH ×2 (17:07→23:49)
[2016-08-06] MEDS: WARFARIN 2 MG TAB GTB SCH (17:07)
[2016-08-06] MEDS: IMIPENEM-CILAST 500MG IV (PMX) 100 ML IVPB SCH (21:00)
[2016-08-06] MEDS: ATORVASTATIN 40 MG TAB GTB SCH (21:00)
[2016-08-07] VITALS (66 sets, daily range): BP systolic 87–159; BP diastolic 47–115; PULSE 81–114; RESP 0–33
[2016-08-07] MEDS: ACCUCHECK XX SCH ×23 (01:00→23:22)
[2016-08-07] MEDS: ALBUTEROL HFA 8 GM INHALER INH SCH ×6 (01:40→21:10)
[2016-08-07 05:32] LABS: CALCIUM 7.6 mg/dl (8.4-10.2); CREATININE 4.74 mg/dl (0.61-1.24); PHOSPHORUS 3.7 mg/dl (2.5-4.9); POTASSIUM 4.6 mmol/L (3.5-5.1)
[2016-08-07] MEDS: VANCOMYCIN HCL 250 MG/5ML POSYG NGT SCH ×3 (05:59→17:38)
[2016-08-07] MEDS: LANSOPRAZOLE 30 MG CAP GTB SCH (05:59)
[2016-08-07 06:17] LABS: BASOPHILS % 0.2 % (0.0-2.0); HEMATOCRIT 31.5 % (42.0-52.0); HEMOGLOBIN 10.7 g/dl (14.0-18.0); LYMPHOCYTES # 0.7 10^3/ul (0.8-2.9); MEAN CORPUSCULAR HEMOGLOBIN 32.7 pg (29.0-33.0); MEAN CORPUSCULAR HGB CONC 33.8 g/dl (32.0-37.0); MEAN CORPUSCULAR VOLUME 96.8 fl (82.0-101.0); MEAN PLATELET VOLUME 8.2 fl (7.4-10.4); MONOCYTE # 0.7 10^3/ul (0.3-0.9); MONOCYTES % 4.2 % (0.0-11.0); NEUTROPHIL # 15.4 10^3/ul (1.6-7.5); NEUTROPHILS % 91.6 % (39.0-77.0); PLATELET COUNT 124 10^3/UL (140-440); RED BLOOD COUNT 3.26 10^6/ul (4.70-6.10); RED CELL DISTRIBUTION WIDTH 14.9 % (11.5-14.5); UNCORRECTED WBC 16.8 10^3/ul (4.8-10.8); WHITE BLOOD COUNT 16.8 10^3/ul (4.8-10.8)
[2016-08-07 06:25] LABS: CONDITION 1; LH ANALYZER COMMENTS 1; SUSPECT 1
--- NOTE | 2016-08-07 07:46 | CONS ---
Date/Time of Note Date/Time of Note DATE: 08/07/16 TIME: 07:43 Assessment/Plan Assessment/Plan Additional Assessment/Plan 1. CKD, to be have HD today 2. Hypophosphatemia has resolved. 3. Right lung infiltrate, abx noted 4. C diff +, on oral vanco 5. Ventilator dependent, hopeful weaning to follow 6. DM, controlled Consultation Date/Type/Reason Admit Date/Time Jul 26, 2016 at 01:55 Type of Consultation: cv Referring Provider: GRACIE KATHLEEN 24 HR Interval Summary Subjective hx not possible: other (Intubated) Exam/Review of Systems Vital Signs Vitals Vital Signs Date Time Temp Pulse Resp B/P Pulse Ox O2 Delivery O2 Flow Rate FiO2 08/07/16 07:00 89 16 113/64 98 Mechanical Ventilator 08/07/16 05:37 35 08/07/16 04:00 98.9 Intake and Output 08/06/16 08/06/16 08/07/16 15:00 23:00 07:00 Intake Total 1027 ml 370 ml 623.5 ml Balance 1027 ml 370 ml 623.5 ml Exam Neck: No jvd Respiratory: diminished breath sounds, No crackles/rales Cardiovascular: regular rate and rhythm Gastrointestinal: soft Extremities: edema (much less) Neurological: other (responded to name but not simple commands) Results Result Diagram: 08/07/165 08/07/165 Results 24 hrs Laboratory Tests Test 08/06/16 08:05 08/06/16 09:03 08/06/16 10:23 08/06/16 11:47 Bedside Glucose 214 162 145 112 Test 08/06/16 13:44 08/06/16 15:20 08/06/16 17:05 08/06/16 18:19 Bedside Glucose 158 199 208 168 Phosphorus Level 2.9 # Test 08/06/16 20:04 08/06/16 20:59 08/06/16 22:08 08/06/16 23:15 Bedside Glucose 162 184 149 112 Test 08/06/16 23:48 08/07/16 01:16 08/07/16 02:05 08/07/16 03:10 Bedside Glucose 111 111 105 127 Test 08/07/16 04:18 08/07/16 04:25 08/07/16 05:18 08/07/16 06:02 Bedside Glucose 130 131 117 Anion Gap 19 H Basophils # 0.0 Basophils % 0.2 Blood Morphology Comment Blood Urea Nitrogen 97 H Calcium Level 7.6 L Carbon Dioxide Level 23 Chloride Level 99 Creatinine 4.74 #H Eosinophils # 0.0 Eosinophils % 0.0 Glucose Level 129 Hematocrit 31.5 L Hemoglobin 10.7 L Lymphocytes # 0.7 L Lymphocytes % 4.0 L Mean Corpuscular Hemoglobin 32.7 Mean Corpuscular Hemoglobin Concent 33.8 Mean Corpuscular Volume 96.8 Mean Platelet Volume 8.2 Monocytes # 0.7 Monocytes % 4.2 Neutrophils # 15.4 H Neutrophils % 91.6 H Nucleated Red Blood Cells # 0.0 Nucleated Red Blood Cells % 0.0 Phosphorus Level 3.7 Platelet Count 124 #L Potassium Level 4.6 Red Blood Count 3.26 L Red Cell Distribution Width 14.9 H Sodium Level 136 White Blood Count 16.8 #H Test 08/07/16 07:04 Bedside Glucose 123 Medications Medications Current Medications Fluticasone Propionate (Flonase 0.05% Nasal) 1 spray BID NASAL Last administered on 08/06/16at 21:01; Admin Dose 1 SPRAY; Start 07/26/16 at 10:00 Epoetin [place] (Epogen (Esrd)) 10,000 units MoWeFr@17 SC Last administered on at 18:19; Admin Dose 10,000 UNITS; Start 07/27/16 at 17:00 Hydralazine HCl 10 mg 10 mg Q6H PRN IV ELEVATED BLOOD PRESSURE Last administered on 07/29/16at 12:59; Admin Dose 10 MG; Start 07/29/16 at 13:00 Midazolam HCl 50 mg/Dextrose 50 ml @ 1 mls/hr TITRATE IV Last administered on 08/05/16at 22:01; Admin Dose 5 MLS/HR; Start 08/01/16 at 23:00 Fentanyl/Dextrose (D5W) 100 ml @ 2.6 mls/hr TITRATE IV Last administered on at 23:21; Admin Dose 2.6 MLS/HR; Start 08/01/16 at 23:00 Acetaminophen (Tylenol Tab) 650 mg Q6H PRN GTB PAIN1-3/FEVER ABOVE 100; Start 08/02/16 at 15:00 Atorvastatin Calcium (Lipitor) 40 mg HS GTB Last administered on 08/06/16at 21: 00; Admin Dose 40 MG; Start 08/02/16 at 21:00 Carvedilol (Coreg) 6.25 mg BID GTB ; Start 08/02/16 at 09:00; Status Future Hold Duloxetine HCl (Cymbalta) 90 mg DAILY GTB Last administered on 08/06/16 10:21 ; Admin Dose 90 MG; Start 08/02/16 at 09:00 Guaifenesin (Robitussin Liquid Cup) 100 mg Q4 PRN GTB COUGH; Start 08/02/16 at 09:00 Acetaminophen/ Hydrocodone Bitart ([place] (5/325)) 1 tab Q4 PRN GTB WSOB Last administered on 08/03/16 18:11; Admin Dose 1 TAB; Start 08/02/16 at 09:00 Lactobacillus Acidoph/Bulgaricus (Floranex) 1 tab DAILY GTB Last administered on 08/06/16 08:47; Admin Dose 1 TAB; Start 08/02/16 at 09:00 Lorazepam (Ativan) 1 mg Q6H PRN GTB ANXIETY Last administered on 08/06/16 10: 27; Admin Dose 1 MG; Start 08/02/16 at 09:00 Multivit/Ca Carb/ B Cmplx/FA/Prenat (Cheryl-Darcie) 1 tab DAILY GTB Last administered on 08/06/16 08:47; Admin Dose 1 TAB; Start 08/02/16 at 09:00 Polyethylene Glycol (Miralax) 17 gm DAILY GTB Last administered on 08/06/16at 08:48; Admin Dose 17 GM; Start 08/02/16 at 09:00 Sildenafil Citrate (Revatio) 20 mg BID GTB ; Start 08/02/16 at 09:00; Status Future Hold Warfarin Sodium (Coumadin) 2 mg DAILY@17 GTB Last administered on 08/06/16 17 :07; Admin Dose 2 MG; Start 08/02/16 at 17:00 Aspirin (Aspirin) 81 mg DAILY GTB Last administered on 08/06/16 08:47; Admin Dose 81 MG; Start 08/02/16 at 09:00 Lansoprazole 30 mg 30 mg DAILY@06 GTB Last administered on 12/20/16at 05:59; Admin Dose 30 MG; Start 08/02/16 at 10:00 Vancomycin HCl (Vancocin) 250 ml @ 125 mls/hr Q96H IVPB Last administered on 08/03/16at 14:10; Admin Dose 125 MLS/HR; Start 08/03/16 at 14:00 Diagnostic Test (Pha) (Accucheck) 1 ea Q1H XX Last administered on 08/07/16 07:06; Admin Dose 1 EA; Start 08/05/16 at 09:00 Dextrose (D50w Syringe) 25 ml Q15M PRN IV Till BS 80 mg/dL or above x2; Start 08/05/16 at 08:30 Dextrose (D50w Syringe) 50 ml Q15M PRN IV Till BS 80 mg/dL or above x2; Start 08/05/16 at 08:30 Moxifloxacin HCl (Vigamox) 1 drop TID BOTH EYES Last administered on 21:01; Admin Dose 1 DROP; Start 08/05/16 at 13:00; Stop 08/12/16 at 13:00 Methylprednisolone Sodium Succinate 40 mg 40 mg DAILY IV Last administered on 08/06/16at 08:48; Admin Dose 40 MG; Start 08/06/16 at 09:00 Phenylephrine HCl 80 mg/Dextrose 250 ml @ 18.75 mls/ hr TITRATE IV ; Start at 12:30 Norepinephrine 16 mg/Dextrose 500 ml @ 1.87 mls/hr TITRATE IV Last administered on 08/05/16at 14:51; Admin Dose 22.5 MLS/HR; Start 08/05/16 at 12: 00 Imipenem/ Cilastatin Sodium (Primaxin 500 Mg/ 100 ml (Pmx)) 100 ml @ 100 mls/ hr Q24H IVPB Last administered on 08/06/16at 21:00; Admin Dose 100 MLS/HR; Start 08/05/16 at 21:00 Vancomycin HCl (Vancomycin Oral Syringe) 125 mg Q6 NGT Last administered on at 05:59; Admin Dose 125 MG; Start 08/06/16 at 18:00 JESSICA ROSARIO MD Aug 07, 2016 07:46
[2016-08-07] MEDS: MOXIFLOXACIN 0.5% 3 ML OPH BOTH EYES SCH ×3 (09:43→20:37)
[2016-08-07] MEDS: ASPIRIN 81 MG TAB GTB SCH (09:43)
[2016-08-07] MEDS: MULTIVIT/CA CARB/B CMPLX/FA TAB GTB SCH (09:44)
[2016-08-07] MEDS: FLUTICASONE 0.05% 16 GM NAS SPRAY NASAL SCH ×2 (09:44→20:37)
[2016-08-07] MEDS: METHYLPREDNISOLONE 40 MG INJ IV SCH (09:44)
[2016-08-07] MEDS: LACTOBACILLUS CHEW TAB GTB SCH (09:44)
[2016-08-07] MEDS: POLYETHYLENE GLYCOL 17 GM PACKET GTB SCH (09:45)
--- NOTE | 2016-08-07 10:19 | CONS ---
JERICHO CRABTREE [employer] 08/07/16 1019: Date/Time of Note Date/Time of Note DATE: 08/07/16 TIME: 10:18 Assessment/Plan Assessment/Plan Chief Complaint/Hosp Course assessment/impression - acute hypoxemic respiratory failure - intubated 07/31 - Pulm edema, right lower lobe infiltrate, possible aspiration pneumonia per Pulmonary (Sputum grew 08/02 rare jerry albicans) - persistent hypotension after HD - s/p short term Levophed 08/02 (short term) and restarted on Levophed 08/04/16-08/06 after HD; on steroid trial. - Early sepsis d/t C diff - recurrent leukocytosis improving and low grade fever resolving. 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 - coagulopathy d/t warfarin - PAD with Hx Left BKA - parkinson's - PCN allergic recommendations: - continue IV vancomycin (07/29/16-) and Primaxin 500 mg IV q24h (08/05/16-); (s /p aztreonam 07/29-08/05) - continue PO vanco via OGT (07/1916-) - F/u tello cultures (blood, sputum, urine) and UA (08/05 results pending but unable to get urine sample as pt is anuric). - F/u procalcitonin (08/02 still pending) - monitor mental status closely - vent management and weaning per Pulmonary - Above d/w Dr. Alexander - critical care time spent was 40 minutes Problems: Consultation Date/Type/Reason Admit Date/Time Jul 26, 2016 at 01:55 Initial Consult Date 07/29/16 Type of Consultation: Infectious Disease Reason for Consultation Antibiotic management Referring Provider: GRACIE KATHLEEN 24 HR Interval Summary Free Text/Dictation Levophed weaned off yesterday morning, pt due to have HD today, pt not following any commands while off sedation, and pt was placed on insulin gtt d/t hyperglycemia r/t steroids per JUAN MIGUEL Lam. No diarrhea noted this shift. Subjective hx not possible: pt critical status Exam/Review of Systems Vital Signs Vitals Vital Signs Date Time Temp Pulse Resp B/P Pulse Ox O2 Delivery O2 Flow Rate FiO2 08/07/16 07:45 98.0 16 118/60 98 Mechanical Ventilator 08/07/16 07:00 89 08/07/16 05:37 35 Intake and Output 08/06/16 08/06/16 08/07/16 15:00 23:00 07:00 Intake Total 1027 ml 370 ml 623.5 ml Balance 1027 ml 370 ml 623.5 ml Exam Constitutional: frail, other (orally intubated) Head: atraumatic, normocephalic ENMT: mucose pink and dry. No thrush noted. Neck: supple, no bruits Respiratory: Coarse breath sounds. No wheezing Cardiovascular: regular rate and rhythm, normal S1 and S2 Gastrointestinal: soft, bowel sounds present, other (OGT with TF; Lower abdominal ecchymosis spreading horizontally at pannus edge). Extremities: edema (trivial on RLE), other (LLE BKA noted; LUE AVF with + bruit /thrill; R foot cool to touch and DP difficult to palpate; left middle finger partial amputation noted) Neurological: Lethargic, withdraws to pain Skin: ecchymosis (few scattered on RLE), nl turgor, other (RUE PICC c/d/i) Results Result Diagram: 08/07/16 0425 08/07/16 0425 Results 24 hrs Laboratory Tests Test 08/06/16 10:23 08/06/16 11:47 08/06/16 13:44 08/06/16 15:20 Bedside Glucose 145 112 158 199 Phosphorus Level 2.9 # Test 08/06/16 17:05 08/06/16 18:19 08/06/16 20:04 08/06/16 20:59 Bedside Glucose 208 168 162 184 Test 08/06/16 22:08 08/06/16 23:15 08/06/16 23:48 08/07/16 01:16 Bedside Glucose 149 112 111 111 Test 08/07/16 02:05 08/07/16 03:10 08/07/16 04:18 08/07/16 04:25 Bedside Glucose 105 127 130 Anion Gap 19 H Basophils # 0.0 Basophils % 0.2 Blood Morphology Comment Blood Urea Nitrogen 97 H Calcium Level 7.6 L Carbon Dioxide Level 23 Chloride Level 99 Creatinine 4.74 #H Eosinophils # 0.0 Eosinophils % 0.0 Glucose Level 129 Hematocrit 31.5 L Hemoglobin 10.7 L Lymphocytes # 0.7 L Lymphocytes % 4.0 L Mean Corpuscular Hemoglobin 32.7 Mean Corpuscular Hemoglobin Concent 33.8 Mean Corpuscular Volume 96.8 Mean Platelet Volume 8.2 Monocytes # 0.7 Monocytes % 4.2 Neutrophils # 15.4 H Neutrophils % 91.6 H Nucleated Red Blood Cells # 0.0 Nucleated Red Blood Cells % 0.0 Phosphorus Level 3.7 Platelet Count 124 #L Potassium Level 4.6 Red Blood Count 3.26 L Red Cell Distribution Width 14.9 H Sodium Level 136 White Blood Count 16.8 #H Test 08/07/16 05:18 08/07/16 06:02 08/07/16 07:04 08/07/16 07:54 Bedside Glucose 131 117 123 138 Test 08/07/16 09:26 Bedside Glucose 115 C diff 08/06/16: C DIFFICILE DNA AMPLIFICATION Final CYTOTOXIGENIC C DIFFICILE POSITIVE (Ref Range Neg) Sputum cx 08/02/16: GRAM STAIN Final POLYMORPH. LEUKOCYTE RARE . NO ORGANISM SEEN RESPIRATORY CULTURE Final Organism 1 JERRY ALBICANS QUANTITY RARE Organism 2 NORMAL RESPIRATORY MEKHI QUANTITY SCANT GROWTH Medications Medications Current Medications Fluticasone Propionate (Flonase 0.05% Nasal) 1 spray BID NASAL Last administered on 08/07/16at 09:44; Admin Dose 1 SPRAY; Start 07/26/16 at 10:00 Epoetin [place] (Epogen (Esrd)) 10,000 units MoWeFr@17 SC Last administered on at 18:19; Admin Dose 10,000 UNITS; Start 07/27/16 at 17:00 Hydralazine HCl 10 mg 10 mg Q6H PRN IV ELEVATED BLOOD PRESSURE Last administered on 07/29/16at 12:59; Admin Dose 10 MG; Start 07/29/16 at 13:00 Midazolam HCl 50 mg/Dextrose 50 ml @ 1 mls/hr TITRATE IV Last administered on 08/05/16at 22:01; Admin Dose 5 MLS/HR; Start 08/01/16 at 23:00 Fentanyl/Dextrose (D5W) 100 ml @ 2.6 mls/hr TITRATE IV Last administered on at 23:21; Admin Dose 2.6 MLS/HR; Start 08/01/16 at 23:00 Acetaminophen (Tylenol Tab) 650 mg Q6H PRN GTB PAIN1-3/FEVER ABOVE 100; Start 08/02/16 at 15:00 Atorvastatin Calcium (Lipitor) 40 mg HS GTB Last administered on 08/06/16at 21: 00; Admin Dose 40 MG; Start 08/02/16 at 21:00 Carvedilol (Coreg) 6.25 mg BID GTB ; Start 08/02/16 at 09:00; Status Future Hold Duloxetine HCl (Cymbalta) 90 mg DAILY GTB Last administered on 08/06/16at 10:21 ; Admin Dose 90 MG; Start 08/02/16 at 09:00 Guaifenesin (Robitussin Liquid Cup) 100 mg Q4 PRN GTB COUGH; Start 08/02/16 at 09:00 Acetaminophen/ Hydrocodone Bitart ([place] (5/325)) 1 tab Q4 PRN GTB WSOB Last administered on 08/03/16at 18:11; Admin Dose 1 TAB; Start 08/02/16 at 09:00 Lactobacillus Acidoph/Bulgaricus (Floranex) 1 tab DAILY GTB Last administered on 08/07/16 09:44; Admin Dose 1 TAB; Start 08/02/16 at 09:00 Lorazepam (Ativan) 1 mg Q6H PRN GTB ANXIETY Last administered on 08/06/16at 10: 27; Admin Dose 1 MG; Start 08/02/16 at 09:00 Multivit/Ca Carb/ B Cmplx/FA/Prenat (Cheryl-Darcie) 1 tab DAILY GTB Last administered on 08/07/16 09:44; Admin Dose 1 TAB; Start 08/02/16 at 09:00 Polyethylene Glycol (Miralax) 17 gm DAILY GTB Last administered on 08/07/16 09:45; Admin Dose 17 GM; Start 08/02/16 at 09:00 Sildenafil Citrate (Revatio) 20 mg BID GTB ; Start 08/02/16 at 09:00; Status Future Hold Warfarin Sodium (Coumadin) 2 mg DAILY@17 GTB Last administered on 08/06/16at 17 :07; Admin Dose 2 MG; Start 08/02/16 at 17:00 Aspirin (Aspirin) 81 mg DAILY GTB Last administered on 08/07/16at 09:43; Admin Dose 81 MG; Start 08/02/16 at 09:00 Lansoprazole 30 mg 30 mg DAILY@06 GTB Last administered on 08/07/16at 05:59; Admin Dose 30 MG; Start 08/02/16 at 10:00 Vancomycin HCl (Vancocin) 250 ml @ 125 mls/hr Q96H IVPB Last administered on 08/03/16at 14:10; Admin Dose 125 MLS/HR; Start 08/03/16 at 14:00 Diagnostic Test (Pha) (Accucheck) 1 ea Q1H XX Last administered on 08/07/16at 09:27; Admin Dose 1 EA; Start 08/05/16 at 09:00 Dextrose (D50w Syringe) 25 ml Q15M PRN IV Till BS 80 mg/dL or above x2; Start 08/05/16 at 08:30 Dextrose (D50w Syringe) 50 ml Q15M PRN IV Till BS 80 mg/dL or above x2; Start 08/05/16 at 08:30 Moxifloxacin HCl (Vigamox) 1 drop TID BOTH EYES Last administered on at 09:43; Admin Dose 1 DROP; Start 08/05/16 at 13:00; Stop 08/12/16 at 13:00 Methylprednisolone Sodium Succinate 40 mg 40 mg DAILY IV Last administered on 08/07/16at 09:44; Admin Dose 40 MG; Start 08/06/16 at 09:00 Phenylephrine HCl 80 mg/Dextrose 250 ml @ 18.75 mls/ hr TITRATE IV ; Start at 12:30 Norepinephrine 16 mg/Dextrose 500 ml @ 1.87 mls/hr TITRATE IV Last administered on 08/05/16at 14:51; Admin Dose 22.5 MLS/HR; Start 08/05/16 at 12: 00 Imipenem/ Cilastatin Sodium (Primaxin 500 Mg/ 100 ml (Pmx)) 100 ml @ 100 mls/ hr Q24H IVPB Last administered on 08/06/16at 21:00; Admin Dose 100 MLS/HR; Start 08/05/16 at 21:00 Vancomycin HCl (Vancomycin Oral Syringe) 125 mg Q6 NGT Last administered on at 05:59; Admin Dose 125 MG; Start 08/06/16 at 18:00 Procedures Procedures CXR 08/06/16: FINDINGS: The endotracheal tube and nasogastric tube remain in satisfactory position. There is right perihilar air space disease, unchanged. The heart size is normal. There is no pleural effusion. There is no pneumothorax. IMPRESSION: 1. No change from 08/05/2016. CXR 08/05/16: 1. Endotracheal tube and nasogastric tube remain in good position. 2. Stable perihilar atelectasis/infiltrate. 3. No new infiltrate CT Brain 07/30/16: Examination is degraded due to patient motion artifact. No evidence of focal hematoma, mass effect, or definite acute ischemic changes. Moderate chronic-appearing microvascular ischemic changes of the supratentorial white matter. Venous study 07/26/16: Old partial DVT of the right internal jugular vein. BLE venous study 07/26/16: No evidence of deep vein thrombosis involving either lower extremity. VQ scan 07/26/16: 1. No evidence of deep vein thrombosis involving either lower extremity. SADIA LONDON M.D. 08/11/16 0019: Assessment/Plan Assessment/Plan Additional Assessment/Plan I discussed the management with SARAN Crabtree and agree with above. Exam/Review of Systems Results Result Diagram: 08/07/16 0425 08/07/16 0425 JERICHO CRABTREE NP Aug 07, 2016 10:19 SADIA LONDON M.D. Aug 11, 2016 00:19
--- NOTE | 2016-08-07 11:52 | CONS ---
Date/Time of Note Date/Time of Note DATE: 08/07/16 TIME: 11:50 Consult Date/Type/Reason Admit Date/Time Jul 26, 2016 at 01:55 Initial Consult Date 07/29/16 Type of Consultation: pulmonary Ordering Provider: GRACIE KATHLEEN Subjective Patient feels CPAP weaning trial yesterday and this morning Significant tachypnea and low lung volumes Neurologically somnolent Objective Vital Signs Date Time Temp Pulse Resp B/P Pulse Ox O2 Delivery O2 Flow Rate FiO2 08/07/16 11:30 92 16 114/63 97 Mechanical Ventilator 08/07/16 08:00 35 08/07/16 07:45 98.0 Intake and Output 08/06/16 08/06/16 08/07/16 15:00 23:00 07:00 Intake Total 1027 ml 370 ml 623.5 ml Balance 1027 ml 370 ml 623.5 ml PHYSICAL EXAMINATION: GENERAL: Chronically ill appearing gentleman, comfortable at rest, no acute distress. on vent VITAL SIGNS: as above NECK: Supple. No JVD or lymphadenopathy. CARDIAC: S1, S2, no added sounds or murmurs. CHEST: Diminished air entry bilaterally. ABDOMEN: Soft, nontender. No guarding or rebound. EXTREMITIES: No cyanosis, clubbing, or edema. NEUROLOGIC: unable to assess Results/Medications Result Diagram: 08/07/16 0425 08/07/165 Results 24 hrs Laboratory Tests Test 08/06/16 13:44 08/06/16 15:20 08/06/16 17:05 08/06/16 18:19 Bedside Glucose 158 199 208 168 Phosphorus Level 2.9 # Test 08/06/16 20:04 08/06/16 20:59 08/06/16 22:08 08/06/16 23:15 Bedside Glucose 162 184 149 112 Test 08/06/16 23:48 08/07/16 01:16 08/07/16 02:05 08/07/16 03:10 Bedside Glucose 111 111 105 127 Test 08/07/16 04:18 08/07/16 04:25 08/07/16 05:18 08/07/16 06:02 Bedside Glucose 130 131 117 Anion Gap 19 H Basophils # 0.0 Basophils % 0.2 Blood Morphology Comment Blood Urea Nitrogen 97 H Calcium Level 7.6 L Carbon Dioxide Level 23 Chloride Level 99 Creatinine 4.74 #H Eosinophils # 0.0 Eosinophils % 0.0 Glucose Level 129 Hematocrit 31.5 L Hemoglobin 10.7 L Lymphocytes # 0.7 L Lymphocytes % 4.0 L Mean Corpuscular Hemoglobin 32.7 Mean Corpuscular Hemoglobin Concent 33.8 Mean Corpuscular Volume 96.8 Mean Platelet Volume 8.2 Monocytes # 0.7 Monocytes % 4.2 Neutrophils # 15.4 H Neutrophils % 91.6 H Nucleated Red Blood Cells # 0.0 Nucleated Red Blood Cells % 0.0 Phosphorus Level 3.7 Platelet Count 124 #L Potassium Level 4.6 Red Blood Count 3.26 L Red Cell Distribution Width 14.9 H Sodium Level 136 White Blood Count 16.8 #H Test 08/07/16 07:04 08/07/16 07:54 08/07/16 09:26 08/07/16 10:29 Bedside Glucose 123 138 115 126 Medications Current Medications Fluticasone Propionate (Flonase 0.05% Nasal) 1 spray BID NASAL Last administered on 08/07/16at 09:44; Admin Dose 1 SPRAY; Start 07/26/16 at 10:00 Epoetin [place] (Epogen (Esrd)) 10,000 units MoWeFr@17 SC Last administered on at 18:19; Admin Dose 10,000 UNITS; Start 07/27/16 at 17:00 Hydralazine HCl 10 mg 10 mg Q6H PRN IV ELEVATED BLOOD PRESSURE Last administered on 07/29/16at 12:59; Admin Dose 10 MG; Start 07/29/16 at 13:00 Midazolam HCl 50 mg/Dextrose 50 ml @ 1 mls/hr TITRATE IV Last administered on 08/05/16at 22:01; Admin Dose 5 MLS/HR; Start 08/01/16 at 23:00 Fentanyl/Dextrose (D5W) 100 ml @ 2.6 mls/hr TITRATE IV Last administered on at 23:21; Admin Dose 2.6 MLS/HR; Start 08/01/16 at 23:00 Acetaminophen (Tylenol Tab) 650 mg Q6H PRN GTB PAIN1-3/FEVER ABOVE 100; Start 08/02/16 at 15:00 Atorvastatin Calcium (Lipitor) 40 mg HS GTB Last administered on 08/06/16at 21: 00; Admin Dose 40 MG; Start 08/02/16 at 21:00 Carvedilol (Coreg) 6.25 mg BID GTB ; Start 08/02/16 at 09:00; Status Future Hold Duloxetine HCl (Cymbalta) 90 mg DAILY GTB Last administered on 08/06/16at 10:21 ; Admin Dose 90 MG; Start 08/02/16 at 09:00 Guaifenesin (Robitussin Liquid Cup) 100 mg Q4 PRN GTB COUGH; Start 08/02/16 at 09:00 Acetaminophen/ Hydrocodone Bitart ([place] (5/325)) 1 tab Q4 PRN GTB [facility]SOB Last administered on 08/03/16at 18:11; Admin Dose 1 TAB; Start 08/02/16 at 09:00 Lactobacillus Acidoph/Bulgaricus (Floranex) 1 tab DAILY GTB Last administered on 08/07/16at 09:44; Admin Dose 1 TAB; Start 08/02/16 at 09:00 Lorazepam (Ativan) 1 mg Q6H PRN GTB ANXIETY Last administered on 08/06/16at 10: 27; Admin Dose 1 MG; Start 08/02/16 at 09:00 Multivit/Ca Carb/ B Cmplx/FA/Prenat (Cheryl-Darcie) 1 tab DAILY GTB Last administered on 08/07/16at 09:44; Admin Dose 1 TAB; Start 08/02/16 at 09:00 Polyethylene Glycol (Miralax) 17 gm DAILY GTB Last administered on 08/07/16at 09:45; Admin Dose 17 GM; Start 08/02/16 at 09:00 Sildenafil Citrate (Revatio) 20 mg BID GTB ; Start 08/02/16 at 09:00; Status Future Hold Warfarin Sodium (Coumadin) 2 mg DAILY@17 GTB Last administered on 08/06/16at 17 :07; Admin Dose 2 MG; Start 08/02/16 at 17:00 Aspirin (Aspirin) 81 mg DAILY GTB Last administered on 08/07/16at 09:43; Admin Dose 81 MG; Start 08/02/16 at 09:00 Lansoprazole 30 mg 30 mg DAILY@06 GTB Last administered on 08/07/16at 05:59; Admin Dose 30 MG; Start 08/02/16 at 10:00 Vancomycin HCl (Vancocin) 250 ml @ 125 mls/hr Q96H IVPB Last administered on 08/03/16at 14:10; Admin Dose 125 MLS/HR; Start 08/03/16 at 14:00 Diagnostic Test (Pha) (Accucheck) 1 ea Q1H XX Last administered on 08/07/16at 10:30; Admin Dose 1 EA; Start 08/05/16 at 09:00 Dextrose (D50w Syringe) 25 ml Q15M PRN IV Till BS 80 mg/dL or above x2; Start 08/05/16 at 08:30 Dextrose (D50w Syringe) 50 ml Q15M PRN IV Till BS 80 mg/dL or above x2; Start 08/05/16 at 08:30 Moxifloxacin HCl (Vigamox) 1 drop TID BOTH EYES Last administered on 09:43; Admin Dose 1 DROP; Start 08/05/16 at 13:00; Stop 08/12/16 at 13:00 Methylprednisolone Sodium Succinate 40 mg 40 mg DAILY IV Last administered on 08/07/16at 09:44; Admin Dose 40 MG; Start 08/06/16 at 09:00 Phenylephrine HCl 80 mg/Dextrose 250 ml @ 18.75 mls/ hr TITRATE IV ; Start at 12:30 Norepinephrine 16 mg/Dextrose 500 ml @ 1.87 mls/hr TITRATE IV Last administered on 08/05/16at 14:51; Admin Dose 22.5 MLS/HR; Start 08/05/16 at 12: 00 Imipenem/ Cilastatin Sodium (Primaxin 500 Mg/ 100 ml (Pmx)) 100 ml @ 100 mls/ hr Q24H IVPB Last administered on 08/06/16at 21:00; Admin Dose 100 MLS/HR; Start 08/05/16 at 21:00 Vancomycin HCl (Vancomycin Oral Syringe) 125 mg Q6 NGT Last administered on at 05:59; Admin Dose 125 MG; Start 08/06/16 at 18:00 Assessment/Plan Chief Complaint/Hosp Course assessment 1. Hypoxemic resp failure, acute requiring mechanical ventilation. 2. Pulm edema, right lower lobe infiltrate, possible aspiration pneumonia. 3. Encephalopathy toxic metabolic 4. Diastolic dysf ? 5. Persistent leukocytosis likely polymicrobial sepsis Plan 1. Continue Vent, may require tracheostomy 2. Hemodialysis per nephrology 3, Aspiration precautions 4. DVT / GI prophylaxis. d/w staff Overall prognosis very poor consider addressing CODE STATUS Problems: VALERIE CAMARENA MD, [facility] [place] Aug 07, 2016 11:52
--- NOTE | 2016-08-07 12:39 | RADRPT ---
PROCEDURE: XR Chest. CLINICAL INDICATION: Shortness of breath. TECHNIQUE: Single frontal view. COMPARISON: 08/06/2016. FINDINGS: The endotracheal tube and nasogastric tube remain in satisfactory position. Right perihilar air spa ce disease is unchanged. The heart size is normal. There is no pleural effusion. There is no pneumothorax. IMPRESSION: 1. No change from 08/06/2016. RPTAT: QQ .Luca Hopkins MD, MD Date Time Electronically viewed and signed by .Luca Hopkins MD, MD on 08/07/2016 12:39 .R/
--- NOTE | 2016-08-07 12:53 | CONS ---
Date/Time of Note Date/Time of Note DATE: 08/07/16 TIME: 12:51 Assessment/Plan Assessment/Plan Additional Assessment/Plan Respiratory failure status post intubation Sepsis Minimally elevated troponin Partial right internal jugular DVT Diastolic congestive heart failure End-stage renal disease on hemodialysis CAD with history of PCI Diabetes Peripheral arterial disease with history of amputation Pulmonary hypertension -Patient remains sedated and intubated, ventilator weaning as per our pulmonary colleagues, continue holding antihypertensive medications, fluid management as per our nephrology colleagues. Consultation Date/Type/Reason Admit Date/Time Jul 26, 2016 at 01:55 Type of Consultation: cv Referring Provider: GRACIE KATHLEEN 24 HR Interval Summary Free Text/Dictation Patient remains sedated and intubated, currently C. difficile positive Exam/Review of Systems Vital Signs Vitals Vital Signs Date Time Temp Pulse Resp B/P Pulse Ox O2 Delivery O2 Flow Rate FiO2 08/07/16 11:30 92 16 114/63 97 Mechanical Ventilator 08/07/16 08:00 35 08/07/16 07:45 98.0 Intake and Output 08/06/16 08/06/16 08/07/16 15:00 23:00 07:00 Intake Total 1027 ml 370 ml 623.5 ml Balance 1027 ml 370 ml 623.5 ml Exam Sedated and intubated Head: normocephalic ENMT: intubated Respiratory: other (course breath sounds bilaterally, no wheezing) Cardiovascular: other (S1-S2 heard), regular rate and rhythm Gastrointestinal: bowel sounds, non-tender, soft Extremities: edema Results Result Diagram: 08/07/16 0425 08/07/16 0425 Results 24 hrs Laboratory Tests Test 08/06/16 13:44 08/06/16 15:20 08/06/16 17:05 08/06/16 18:19 Bedside Glucose 158 199 208 168 Phosphorus Level 2.9 # Test 08/06/16 20:04 08/06/16 20:59 08/06/16 22:08 08/06/16 23:15 Bedside Glucose 162 184 149 112 Test 08/06/16 23:48 08/07/16 01:16 08/07/16 02:05 08/07/16 03:10 Bedside Glucose 111 111 105 127 Test 08/07/16 04:18 08/07/16 04:25 08/07/16 05:18 08/07/16 06:02 Bedside Glucose 130 131 117 Anion Gap 19 H Basophils # 0.0 Basophils % 0.2 Blood Morphology Comment Blood Urea Nitrogen 97 H Calcium Level 7.6 L Carbon Dioxide Level 23 Chloride Level 99 Creatinine 4.74 #H Eosinophils # 0.0 Eosinophils % 0.0 Glucose Level 129 Hematocrit 31.5 L Hemoglobin 10.7 L Lymphocytes # 0.7 L Lymphocytes % 4.0 L Mean Corpuscular Hemoglobin 32.7 Mean Corpuscular Hemoglobin Concent 33.8 Mean Corpuscular Volume 96.8 Mean Platelet Volume 8.2 Monocytes # 0.7 Monocytes % 4.2 Neutrophils # 15.4 H Neutrophils % 91.6 H Nucleated Red Blood Cells # 0.0 Nucleated Red Blood Cells % 0.0 Phosphorus Level 3.7 Platelet Count 124 #L Potassium Level 4.6 Red Blood Count 3.26 L Red Cell Distribution Width 14.9 H Sodium Level 136 White Blood Count 16.8 #H Test 08/07/16 07:04 08/07/16 07:54 08/07/16 09:26 08/07/16 10:29 Bedside Glucose 123 138 115 126 Test 08/07/16 11:58 Bedside Glucose 120 Medications Medications Current Medications Fluticasone Propionate (Flonase 0.05% Nasal) 1 spray BID NASAL Last administered on 08/07/16at 09:44; Admin Dose 1 SPRAY; Start 07/26/16 at 10:00 Epoetin [place] (Epogen (Esrd)) 10,000 units MoWeFr@17 SC Last administered on at 18:19; Admin Dose 10,000 UNITS; Start 07/27/16 at 17:00 Hydralazine HCl 10 mg 10 mg Q6H PRN IV ELEVATED BLOOD PRESSURE Last administered on 07/29/16at 12:59; Admin Dose 10 MG; Start 07/29/16 at 13:00 Midazolam HCl 50 mg/Dextrose 50 ml @ 1 mls/hr TITRATE IV Last administered on 08/05/16at 22:01; Admin Dose 5 MLS/HR; Start 08/01/16 at 23:00 Fentanyl/Dextrose (D5W) 100 ml @ 2.6 mls/hr TITRATE IV Last administered on at 23:21; Admin Dose 2.6 MLS/HR; Start 08/01/16 at 23:00 Acetaminophen (Tylenol Tab) 650 mg Q6H PRN GTB PAIN1-3/FEVER ABOVE 100; Start 08/02/16 at 15:00 Atorvastatin Calcium (Lipitor) 40 mg HS GTB Last administered on 08/06/16at 21: 00; Admin Dose 40 MG; Start 08/02/16 at 21:00 Carvedilol (Coreg) 6.25 mg BID GTB ; Start 08/02/16 at 09:00; Status Future Hold Duloxetine HCl (Cymbalta) 90 mg DAILY GTB Last administered on 08/06/16at 10:21 ; Admin Dose 90 MG; Start 08/02/16 at 09:00 Guaifenesin (Robitussin Liquid Cup) 100 mg Q4 PRN GTB COUGH; Start 08/02/16 at 09:00 Acetaminophen/ Hydrocodone Bitart ([place] (5/325)) 1 tab Q4 PRN GTB [facility]SOB Last administered on 08/03/16at 18:11; Admin Dose 1 TAB; Start 08/02/16 at 09:00 Lactobacillus Acidoph/Bulgaricus (Floranex) 1 tab DAILY GTB Last administered on 08/07/16at 09:44; Admin Dose 1 TAB; Start 08/02/16 at 09:00 Lorazepam (Ativan) 1 mg Q6H PRN GTB ANXIETY Last administered on 08/06/16at 10: 27; Admin Dose 1 MG; Start 08/02/16 at 09:00 Multivit/Ca Carb/ B Cmplx/FA/Prenat (Cheryl-Darcie) 1 tab DAILY GTB Last administered on 08/07/16at 09:44; Admin Dose 1 TAB; Start 08/02/16 at 09:00 Polyethylene Glycol (Miralax) 17 gm DAILY GTB Last administered on 08/07/16at 09:45; Admin Dose 17 GM; Start 08/02/16 at 09:00 Sildenafil Citrate (Revatio) 20 mg BID GTB ; Start 08/02/16 at 09:00; Status Future Hold Warfarin Sodium (Coumadin) 2 mg DAILY@17 GTB Last administered on 08/06/16at 17 :07; Admin Dose 2 MG; Start 08/02/16 at 17:00 Aspirin (Aspirin) 81 mg DAILY GTB Last administered on 08/07/16at 09:43; Admin Dose 81 MG; Start 08/02/16 at 09:00 Lansoprazole 30 mg 30 mg DAILY@06 GTB Last administered on 08/07/16 05:59; Admin Dose 30 MG; Start 08/02/16 at 10:00 Vancomycin HCl (Vancocin) 250 ml @ 125 mls/hr Q96H IVPB Last administered on 08/03/16 14:10; Admin Dose 125 MLS/HR; Start 08/03/16 at 14:00 Diagnostic Test (Pha) (Accucheck) 1 ea Q1H XX Last administered on 08/07/16 11:59; Admin Dose 1 EA; Start 08/05/16 at 09:00 Dextrose (D50w Syringe) 25 ml Q15M PRN IV Till BS 80 mg/dL or above x2; Start 08/05/16 at 08:30 Dextrose (D50w Syringe) 50 ml Q15M PRN IV Till BS 80 mg/dL or above x2; Start 08/05/16 at 08:30 Moxifloxacin HCl (Vigamox) 1 drop TID BOTH EYES Last administered on 09:43; Admin Dose 1 DROP; Start 08/05/16 at 13:00; Stop 08/12/16 at 13:00 Methylprednisolone Sodium Succinate 40 mg 40 mg DAILY IV Last administered on 08/07/16at 09:44; Admin Dose 40 MG; Start 08/06/16 at 09:00 Phenylephrine HCl 80 mg/Dextrose 250 ml @ 18.75 mls/ hr TITRATE IV ; Start at 12:30 Norepinephrine 16 mg/Dextrose 500 ml @ 1.87 mls/hr TITRATE IV Last administered on 08/05/16at 14:51; Admin Dose 22.5 MLS/HR; Start 08/05/16 at 12: 00 Imipenem/ Cilastatin Sodium (Primaxin 500 Mg/ 100 ml (Pmx)) 100 ml @ 100 mls/ hr Q24H IVPB Last administered on 08/06/16at 21:00; Admin Dose 100 MLS/HR; Start 08/05/16 at 21:00 Vancomycin HCl (Vancomycin Oral Syringe) 125 mg Q6 NGT Last administered on 05:59; Admin Dose 125 MG; Start 08/06/16 at 18:00 Solo Leon 20, 2016 12:53
[2016-08-07] MEDS: DULOXETINE 30 MG CAP DR GTB SCH (14:13)
[2016-08-07] MEDS: VANCOMYCIN 1 GM in NS 250 ML IVPB SCH (14:14)
[2016-08-07] MEDS: ALBUMIN HUMAN 25% 100 ML IV PRN ×2 (14:56→16:10)
[2016-08-07] MEDS: INSULIN REGULAR, HUMAN 100 UNIT in SOD CHLORIDE 0.9% 99 ML IV SCH ×2 (16:17)
--- NOTE | 2016-08-07 16:25 | PN ---
Date/Time of Note Date/Time of Note DATE: 08/07/16 TIME: 16:08 Assessment/Plan VTE Prophylaxis VTE Prophylaxis Intervention: heparin Lines/Catheters IV Catheter Type (from Nrs): Mid Line Central line still needed: Yes Urinary Cath still in place: No Assessment/Plan Assessment/Plan 1. Acute respiratory failure- sp intubation on 07/31 - per pulmonary, continue ventilator support, bronchodilators, steroids. 2. Possible pneumonia- right lower lobe infiltrate- possible aspiration pneumonia per Pulmonary. Sputum grew 08/02 rare jerry albicans - per ID - per Dr. Reardon in infectious disease consultation. 3. Early sepsis d/t C diff - recurrent leukocytosis improving and low grade fever resolving. 4. End-stage renal disease hemodialysis dependent. - having HD now - per Dr. Bassett in nephrology consultation 5. Diastolic congestive heart failure. Continue to remove fluid was hemodialysis. 6. Partial right internal jugular DVT. Continue Coumadin. Continue daily PT PTT. 7. C diff stool - per ID - on po Vanco - contact isolation 8. RUE cellulitis with axillary/cephalic venous thrombosis - PER id 9. Hyperglycemia- GLYCEMIC Control- stable 10. Toxic metabolic encephalopathy 11. Osteoporosis. 12. Pulmonary hypertension. Continue sildenafil. 13. Coronary artery disease with history of PCI. 14. Depression. Continue Cymbalta 15. History of left hip fracture, treated conservatively. Protonix for peptic ulcer disease prophylaxis Further recommendations based on clinical course. Total critical time spend = 30 mins Plan of care discussed with Dr. Miramontes. Subjective 24 Hr Interval Summary Free Text/Dictation remains intubated. Having HD now. dw staff, Constitutional: requiring IVF, requiring O2 Exam/Review of Systems Vital Signs Vitals Vital Signs Date Time Temp Pulse Resp B/P Pulse Ox O2 Delivery O2 Flow Rate FiO2 08/07/16 15:29 104 08/07/16 15:00 17 87/75 93 Mechanical Ventilator 08/07/16 12:00 98.6 08/07/16 08:00 35 Intake and Output 08/06/16 08/06/16 08/07/16 15:00 23:00 07:00 Intake Total 1027 ml 370 ml 623.5 ml Balance 1027 ml 370 ml 623.5 ml Exam Constitutional: frail Eyes: nl sclera ENMT: nl external ears & nose Neck: non-tender Respiratory: diminished breath sounds Cardiovascular: nl pulses Gastrointestinal: non-tender, soft Neurological: confused, lethargic Skin: other Results Result Diagram: 08/07/16 0425 08/07/16 0425 Results 24 hrs Laboratory Tests Test 08/06/16 17:05 08/06/16 18:19 08/06/16 20:04 08/06/16 20:59 Bedside Glucose 208 168 162 184 Test 08/06/16 22:08 08/06/16 23:15 08/06/16 23:48 08/07/16 01:16 Bedside Glucose 149 112 111 111 Test 08/07/16 02:05 08/07/16 03:10 08/07/16 04:18 08/07/16 04:25 Bedside Glucose 105 127 130 Anion Gap 19 H Basophils # 0.0 Basophils % 0.2 Blood Morphology Comment Blood Urea Nitrogen 97 H Calcium Level 7.6 L Carbon Dioxide Level 23 Chloride Level 99 Creatinine 4.74 #H Eosinophils # 0.0 Eosinophils % 0.0 Glucose Level 129 Hematocrit 31.5 L Hemoglobin 10.7 L Lymphocytes # 0.7 L Lymphocytes % 4.0 L Mean Corpuscular Hemoglobin 32.7 Mean Corpuscular Hemoglobin Concent 33.8 Mean Corpuscular Volume 96.8 Mean Platelet Volume 8.2 Monocytes # 0.7 Monocytes % 4.2 Neutrophils # 15.4 H Neutrophils % 91.6 H Nucleated Red Blood Cells # 0.0 Nucleated Red Blood Cells % 0.0 Phosphorus Level 3.7 Platelet Count 124 #L Potassium Level 4.6 Red Blood Count 3.26 L Red Cell Distribution Width 14.9 H Sodium Level 136 White Blood Count 16.8 #H Test 08/07/16 05:18 08/07/16 06:02 08/07/16 07:04 08/07/16 07:54 Bedside Glucose 131 117 123 138 Test 08/07/16 09:26 08/07/16 10:29 08/07/16 11:58 08/07/16 13:46 Bedside Glucose 115 126 120 149 Medications Medications Current Medications Fluticasone Propionate (Flonase 0.05% Nasal) 1 spray BID NASAL Last administered on 08/07/16at 09:44; Admin Dose 1 SPRAY; Start 07/26/16 at 10:00 Epoetin [place] (Epogen (Esrd)) 10,000 units MoWeFr@17 SC Last administered on at 18:19; Admin Dose 10,000 UNITS; Start 07/27/16 at 17:00 Hydralazine HCl 10 mg 10 mg Q6H PRN IV ELEVATED BLOOD PRESSURE Last administered on 07/29/16at 12:59; Admin Dose 10 MG; Start 07/29/16 at 13:00 Midazolam HCl 50 mg/Dextrose 50 ml @ 1 mls/hr TITRATE IV Last administered on 08/05/16at 22:01; Admin Dose 5 MLS/HR; Start 08/01/16 at 23:00 Fentanyl/Dextrose (D5W) 100 ml @ 2.6 mls/hr TITRATE IV Last administered on at 23:21; Admin Dose 2.6 MLS/HR; Start 08/01/16 at 23:00 Acetaminophen (Tylenol Tab) 650 mg Q6H PRN GTB PAIN1-3/FEVER ABOVE 100; Start 08/02/16 at 15:00 Atorvastatin Calcium (Lipitor) 40 mg HS GTB Last administered on 08/06/16at 21: 00; Admin Dose 40 MG; Start 08/02/16 at 21:00 Carvedilol (Coreg) 6.25 mg BID GTB ; Start 08/02/16 at 09:00; Status Future Hold Duloxetine HCl (Cymbalta) 90 mg DAILY GTB Last administered on 08/07/16at 14:13 ; Admin Dose 90 MG; Start 08/02/16 at 09:00 Guaifenesin (Robitussin Liquid Cup) 100 mg Q4 PRN GTB COUGH; Start 08/02/16 at 09:00 Acetaminophen/ Hydrocodone Bitart ([place] (5/325)) 1 tab Q4 PRN GTB WSOB Last administered on 08/03/16at 18:11; Admin Dose 1 TAB; Start 08/02/16 at 09:00 Lactobacillus Acidoph/Bulgaricus (Floranex) 1 tab DAILY GTB Last administered on 08/07/16at 09:44; Admin Dose 1 TAB; Start 08/02/16 at 09:00 Lorazepam (Ativan) 1 mg Q6H PRN GTB ANXIETY Last administered on 08/06/16at 10: 27; Admin Dose 1 MG; Start 08/02/16 at 09:00 Multivit/Ca Carb/ B Cmplx/FA/Prenat (Cheryl-Darcie) 1 tab DAILY GTB Last administered on 08/07/16 09:44; Admin Dose 1 TAB; Start 08/02/16 at 09:00 Polyethylene Glycol (Miralax) 17 gm DAILY GTB Last administered on 08/07/16at 09:45; Admin Dose 17 GM; Start 08/02/16 at 09:00 Sildenafil Citrate (Revatio) 20 mg BID GTB ; Start 08/02/16 at 09:00; Status Future Hold Warfarin Sodium (Coumadin) 2 mg DAILY@17 GTB Last administered on 08/06/16at 17 :07; Admin Dose 2 MG; Start 08/02/16 at 17:00 Aspirin (Aspirin) 81 mg DAILY GTB Last administered on 08/07/16at 09:43; Admin Dose 81 MG; Start 08/02/16 at 09:00 Lansoprazole 30 mg 30 mg DAILY@06 GTB Last administered on 08/07/16 05:59; Admin Dose 30 MG; Start 08/02/16 at 10:00 Vancomycin HCl (Vancocin) 250 ml @ 125 mls/hr Q96H IVPB Last administered on 08/07/16 14:14; Admin Dose 125 MLS/HR; Start 08/03/16 at 14:00 Diagnostic Test (Pha) (Accucheck) 1 ea Q1H XX Last administered on 08/07/16at 13:47; Admin Dose 1 EA; Start 08/05/16 at 09:00 Dextrose (D50w Syringe) 25 ml Q15M PRN IV Till BS 80 mg/dL or above x2; Start 08/05/16 at 08:30 Dextrose (D50w Syringe) 50 ml Q15M PRN IV Till BS 80 mg/dL or above x2; Start 08/05/16 at 08:30 Moxifloxacin HCl (Vigamox) 1 drop TID BOTH EYES Last administered on 14:14; Admin Dose 1 DROP; Start 08/05/16 at 13:00; Stop 08/12/16 at 13:00 Methylprednisolone Sodium Succinate 40 mg 40 mg DAILY IV Last administered on 08/07/16at 09:44; Admin Dose 40 MG; Start 08/06/16 at 09:00 Phenylephrine HCl 80 mg/Dextrose 250 ml @ 18.75 mls/ hr TITRATE IV ; Start at 12:30 Norepinephrine 16 mg/Dextrose 500 ml @ 1.87 mls/hr TITRATE IV Last administered on 08/05/16at 14:51; Admin Dose 22.5 MLS/HR; Start 08/05/16 at 12: 00 Imipenem/ Cilastatin Sodium (Primaxin 500 Mg/ 100 ml (Pmx)) 100 ml @ 100 mls/ hr Q24H IVPB Last administered on 08/06/16at 21:00; Admin Dose 100 MLS/HR; Start 08/05/16 at 21:00 Vancomycin HCl (Vancomycin Oral Syringe) 125 mg Q6 NGT Last administered on at 14:13; Admin Dose 125 MG; Start 08/06/16 at 18:00 GRACIE KATHLEEN Aug 07, 2016 16:25
[2016-08-07] MEDS: WARFARIN 2 MG TAB GTB SCH (17:38)
[2016-08-07] MEDS: ATORVASTATIN 40 MG TAB GTB SCH (20:37)
[2016-08-07] MEDS: IMIPENEM-CILAST 500MG IV (PMX) 100 ML IVPB SCH (20:37)
[2016-08-08] VITALS (94 sets, daily range): BP systolic 98–167; BP diastolic 51–99; PULSE 68–107; RESP 12–34
[2016-08-08] MEDS: ACCUCHECK XX SCH ×24 (00:28→23:25)
[2016-08-08] MEDS: VANCOMYCIN HCL 250 MG/5ML POSYG NGT SCH ×4 (00:53→17:39)
[2016-08-08] MEDS: ALBUTEROL HFA 8 GM INHALER INH SCH ×6 (00:59→21:13)
[2016-08-08] MEDS: LANSOPRAZOLE 30 MG CAP GTB SCH (06:21)
[2016-08-08 06:38] LABS: INR 1.59; PROTIME 19.1 Sec (12.2-14.2); PT RATIO 1.5
[2016-08-08 06:48] LABS: POTASSIUM 4.2 mmol/L (3.5-5.1)
[2016-08-08 06:51] LABS: CREATININE 3.16 mg/dl (0.61-1.24); PHOSPHORUS 3.3 mg/dl (2.5-4.9)
[2016-08-08 06:52] LABS: CALCIUM 8.1 mg/dl (8.4-10.2)
[2016-08-08 07:05] LABS: EOSINOPHILS % 0.1 % (0.0-7.0); HEMATOCRIT 30.4 % (42.0-52.0); HEMOGLOBIN 10.1 g/dl (14.0-18.0); LYMPHOCYTES # 0.6 10^3/ul (0.8-2.9); LYMPHOCYTES % 4.8 % (15.0-51.0); MEAN CORPUSCULAR HEMOGLOBIN 32.6 pg (29.0-33.0); MEAN CORPUSCULAR HGB CONC 33.4 g/dl (32.0-37.0); MEAN CORPUSCULAR VOLUME 97.7 fl (82.0-101.0); MEAN PLATELET VOLUME 7.8 fl (7.4-10.4); MONOCYTE # 0.6 10^3/ul (0.3-0.9); MONOCYTES % 4.9 % (0.0-11.0); NEUTROPHIL # 11.5 10^3/ul (1.6-7.5); NEUTROPHILS % 90.2 % (39.0-77.0); PLATELET COUNT 120 10^3/UL (140-440); RED BLOOD COUNT 3.11 10^6/ul (4.70-6.10); RED CELL DISTRIBUTION WIDTH 15.1 % (11.5-14.5); UNCORRECTED WBC 12.8 10^3/ul (4.8-10.8); WHITE BLOOD COUNT 12.8 10^3/ul (4.8-10.8)
[2016-08-08 07:19] LABS: CONDITION 1; LH ANALYZER COMMENTS 1
--- NOTE | 2016-08-08 08:30 | CONS ---
Date/Time of Note Date/Time of Note DATE: 08/08/16 TIME: 08:27 Assessment/Plan Assessment/Plan Additional Assessment/Plan 1. Pneumonia, abx per ID 2. C diff on po vanco 3. CKD, next HD tommn 4. Ventilator dependent, hopeful extubation soon. 5. Cont to taper steroids? 6. INR noted, D.C. coumadin as no new DVT per IM ? Consultation Date/Type/Reason Admit Date/Time Jul 26, 2016 at 01:55 Type of Consultation: cv Referring Provider: GRACIE KATHLEEN 24 HR Interval Summary Subjective hx not possible: other (intubated, not sedated) Exam/Review of Systems Vital Signs Vitals Vital Signs Date Time Temp Pulse Resp B/P Pulse Ox O2 Delivery O2 Flow Rate FiO2 08/08/16 08:00 98.3 78 20 140/59 96 Mechanical Ventilator 08/08/16 04:54 35 Intake and Output 08/07/16 08/07/16 08/08/16 15:00 23:00 07:00 Intake Total 413 ml 1166.5 ml 570.5 ml Output Total 3500 ml Balance 413 ml -2333.5 ml 570.5 ml Exam Neck: No jvd Respiratory: diminished breath sounds Cardiovascular: regular rate and rhythm Gastrointestinal: soft Extremities: edema (trace sacral edema) Results Result Diagram: 08/08/16 0600 08/08/16 0600 Results 24 hrs Laboratory Tests Test 08/07/16 09:26 08/07/16 10:29 08/07/16 11:58 08/07/16 13:46 Bedside Glucose 115 126 120 149 Test 08/07/16 16:15 08/07/16 17:28 08/07/16 18:29 08/07/16 19:40 Bedside Glucose 181 163 183 116 Test 08/07/16 20:33 08/07/16 21:27 08/07/16 22:27 08/07/16 23:22 Bedside Glucose 104 125 131 120 Test 08/08/16 00:27 08/08/16 01:18 08/08/16 02:15 08/08/16 03:13 Bedside Glucose 114 123 123 110 Test 08/08/16 04:07 08/08/16 05:22 08/08/16 06:00 08/08/16 06:19 Bedside Glucose 113 109 130 Anion Gap 19 H Basophils # 0.0 Basophils % 0.0 Blood Morphology Comment Blood Urea Nitrogen 64 #H Calcium Level 8.1 L Carbon Dioxide Level 25 Chloride Level 101 Creatinine 3.16 #H Eosinophils # 0.0 Eosinophils % 0.1 Glucose Level 128 Hematocrit 30.4 L Hemoglobin 10.1 L INR International Normalized Ratio 1.59 Lymphocytes # 0.6 L Lymphocytes % 4.8 L Mean Corpuscular Hemoglobin 32.6 Mean Corpuscular Hemoglobin Concent 33.4 Mean Corpuscular Volume 97.7 Mean Platelet Volume 7.8 Monocytes # 0.6 Monocytes % 4.9 Neutrophils # 11.5 H Neutrophils % 90.2 H Nucleated Red Blood Cells # 0.0 Nucleated Red Blood Cells % 0.0 Phosphorus Level 3.3 Platelet Count 120 L Potassium Level 4.2 Prothrombin Time 19.1 H Prothrombin Time Ratio 1.5 Red Blood Count 3.11 L Red Cell Distribution Width 15.1 H Sodium Level 141 White Blood Count 12.8 #H Test 08/08/16 07:37 Bedside Glucose 160 Medications Medications Current Medications Fluticasone Propionate (Flonase 0.05% Nasal) 1 spray BID NASAL Last administered on 08/07/16at 20:37; Admin Dose 1 SPRAY; Start 07/26/16 at 10:00 Epoetin [place] (Epogen (Esrd)) 10,000 units MoWeFr@17 SC Last administered on at 18:19; Admin Dose 10,000 UNITS; Start 07/27/16 at 17:00 Hydralazine HCl 10 mg 10 mg Q6H PRN IV ELEVATED BLOOD PRESSURE Last administered on 07/29/16at 12:59; Admin Dose 10 MG; Start 07/29/16 at 13:00 Midazolam HCl 50 mg/Dextrose 50 ml @ 1 mls/hr TITRATE IV Last administered on 08/05/16at 22:01; Admin Dose 5 MLS/HR; Start 08/01/16 at 23:00 Fentanyl/Dextrose (D5W) 100 ml @ 2.6 mls/hr TITRATE IV Last administered on at 23:21; Admin Dose 2.6 MLS/HR; Start 08/01/16 at 23:00 Acetaminophen (Tylenol Tab) 650 mg Q6H PRN GTB PAIN1-3/FEVER ABOVE 100; Start 08/02/16 at 15:00 Atorvastatin Calcium (Lipitor) 40 mg HS GTB Last administered on 08/07/16 20: 37; Admin Dose 40 MG; Start 08/02/16 at 21:00 Carvedilol (Coreg) 6.25 mg BID GTB ; Start 08/02/16 at 09:00; Status Future Hold Duloxetine HCl (Cymbalta) 90 mg DAILY GTB Last administered on 08/07/16 14:13 ; Admin Dose 90 MG; Start 08/02/16 at 09:00 Guaifenesin (Robitussin Liquid Cup) 100 mg Q4 PRN GTB COUGH; Start 08/02/16 at 09:00 Acetaminophen/ Hydrocodone Bitart ([place] (5/325)) 1 tab Q4 PRN GTB [facility] Last administered on 08/03/16 18:11; Admin Dose 1 TAB; Start 08/02/16 at 09:00 Lactobacillus Acidoph/Bulgaricus (Floranex) 1 tab DAILY GTB Last administered on 08/07/16 09:44; Admin Dose 1 TAB; Start 08/02/16 at 09:00 Lorazepam (Ativan) 1 mg Q6H PRN GTB ANXIETY Last administered on 08/06/16 10: 27; Admin Dose 1 MG; Start 08/02/16 at 09:00 Multivit/Ca Carb/ B Cmplx/FA/Prenat (Cheryl-Darcie) 1 tab DAILY GTB Last administered on 08/07/16 09:44; Admin Dose 1 TAB; Start 08/02/16 at 09:00 Polyethylene Glycol (Miralax) 17 gm DAILY GTB Last administered on 08/07/16at 09:45; Admin Dose 17 GM; Start 08/02/16 at 09:00 Sildenafil Citrate (Revatio) 20 mg BID GTB ; Start 08/02/16 at 09:00; Status Future Hold Warfarin Sodium (Coumadin) 2 mg DAILY@17 GTB Last administered on 08/07/16 17 :38; Admin Dose 2 MG; Start 08/02/16 at 17:00 Aspirin (Aspirin) 81 mg DAILY GTB Last administered on 08/07/16 09:43; Admin Dose 81 MG; Start 08/02/16 at 09:00 Lansoprazole 30 mg 30 mg DAILY@06 GTB Last administered on 08/08/16 06:21; Admin Dose 30 MG; Start 08/02/16 at 10:00 Vancomycin HCl (Vancocin) 250 ml @ 125 mls/hr Q96H IVPB Last administered on 08/07/16 14:14; Admin Dose 125 MLS/HR; Start 08/03/16 at 14:00 Diagnostic Test (Pha) (Accucheck) 1 ea Q1H XX Last administered on 08/08/16 07:38; Admin Dose 1 EA; Start 08/05/16 at 09:00 Dextrose (D50w Syringe) 25 ml Q15M PRN IV Till BS 80 mg/dL or above x2; Start 08/05/16 at 08:30 Dextrose (D50w Syringe) 50 ml Q15M PRN IV Till BS 80 mg/dL or above x2; Start 08/05/16 at 08:30 Moxifloxacin HCl (Vigamox) 1 drop TID BOTH EYES Last administered on 20:37; Admin Dose 1 DROP; Start 08/05/16 at 13:00; Stop 08/12/16 at 13:00 Methylprednisolone Sodium Succinate 40 mg 40 mg DAILY IV Last administered on 08/07/16 09:44; Admin Dose 40 MG; Start 08/06/16 at 09:00 Phenylephrine HCl 80 mg/Dextrose 250 ml @ 18.75 mls/ hr TITRATE IV ; Start at 12:30 Norepinephrine 16 mg/Dextrose 500 ml @ 1.87 mls/hr TITRATE IV Last administered on 08/05/16at 14:51; Admin Dose 22.5 MLS/HR; Start 08/05/16 at 12: 00 Imipenem/ Cilastatin Sodium (Primaxin 500 Mg/ 100 ml (Pmx)) 100 ml @ 100 mls/ hr Q24H IVPB Last administered on 08/07/16 20:37; Admin Dose 100 MLS/HR; Start 08/05/16 at 21:00 Vancomycin HCl (Vancomycin Oral Syringe) 125 mg Q6 NGT Last administered on 06:21; Admin Dose 125 MG; Start 08/06/16 at 18:00 JESSICA ROSARIO MD Aug 08, 2016 08:30
[2016-08-08] MEDS: POLYETHYLENE GLYCOL 17 GM PACKET GTB SCH (08:32)
[2016-08-08] MEDS: ASPIRIN 81 MG TAB GTB SCH (09:01)
[2016-08-08] MEDS: METHYLPREDNISOLONE 40 MG INJ IV SCH (09:01)
[2016-08-08] MEDS: HYDROCODONE/APAP (5/325) TAB GTB PRN (09:01)
[2016-08-08] MEDS: MOXIFLOXACIN 0.5% 3 ML OPH BOTH EYES SCH ×3 (09:01→20:50)
[2016-08-08] MEDS: FLUTICASONE 0.05% 16 GM NAS SPRAY NASAL SCH ×2 (09:01→20:50)
[2016-08-08] MEDS: LACTOBACILLUS CHEW TAB GTB SCH (09:02)
[2016-08-08] MEDS: DULOXETINE 30 MG CAP DR GTB SCH (09:02)
[2016-08-08] MEDS: MULTIVIT/CA CARB/B CMPLX/FA TAB GTB SCH (09:02)
--- NOTE | 2016-08-08 09:47 | CONS ---
Date/Time of Note Date/Time of Note DATE: 08/08/16 TIME: 09:45 Consult Date/Type/Reason Admit Date/Time Jul 26, 2016 at 01:55 Initial Consult Date 07/29/16 Type of Consultation: pulmonary Ordering Provider: GRACIE KATHLEEN Subjective Patient remains stable on mechanical ventilation eyes open follow simple commands occasionally Moderate oral secretions Currently hemodynamically stable Objective Vital Signs Date Time Temp Pulse Resp B/P Pulse Ox O2 Delivery O2 Flow Rate FiO2 08/08/16 08:27 84 16 96 35 08/08/16 08:00 98.3 140/59 Mechanical Ventilator Intake and Output 08/07/16 08/07/16 08/08/16 15:00 23:00 07:00 Intake Total 413 ml 1166.5 ml 570.5 ml Output Total 3500 ml Balance 413 ml -2333.5 ml 570.5 ml PHYSICAL EXAMINATION: GENERAL: Chronically ill appearing gentleman, comfortable at rest, no acute distress. on vent VITAL SIGNS: as above NECK: Supple. No JVD or lymphadenopathy. CARDIAC: S1, S2, no added sounds or murmurs. CHEST: Diminished air entry bilaterally. ABDOMEN: Soft, nontender. No guarding or rebound. EXTREMITIES: No cyanosis, clubbing, or edema. NEUROLOGIC: unable to assess Results/Medications Result Diagram: 08/08/16 0600 08/08/16 0600 Results 24 hrs Laboratory Tests Test 08/07/16 10:29 08/07/16 11:58 08/07/16 13:46 08/07/16 16:15 Bedside Glucose 126 120 149 181 Test 08/07/16 17:28 08/07/16 18:29 08/07/16 19:40 08/07/16 20:33 Bedside Glucose 163 183 116 104 Test 08/07/16 21:27 08/07/16 22:27 08/07/16 23:22 08/08/16 00:27 Bedside Glucose 125 131 120 114 Test 08/08/16 01:18 08/08/16 02:15 08/08/16 03:13 08/08/16 04:07 Bedside Glucose 123 123 110 113 Test 08/08/16 05:22 08/08/16 06:00 08/08/16 06:19 08/08/16 07:37 Bedside Glucose 109 130 160 Anion Gap 19 H Basophils # 0.0 Basophils % 0.0 Blood Morphology Comment Blood Urea Nitrogen 64 #H Calcium Level 8.1 L Carbon Dioxide Level 25 Chloride Level 101 Creatinine 3.16 #H Eosinophils # 0.0 Eosinophils % 0.1 Glucose Level 128 Hematocrit 30.4 L Hemoglobin 10.1 L INR International Normalized Ratio 1.59 Lymphocytes # 0.6 L Lymphocytes % 4.8 L Mean Corpuscular Hemoglobin 32.6 Mean Corpuscular Hemoglobin Concent 33.4 Mean Corpuscular Volume 97.7 Mean Platelet Volume 7.8 Monocytes # 0.6 Monocytes % 4.9 Neutrophils # 11.5 H Neutrophils % 90.2 H Nucleated Red Blood Cells # 0.0 Nucleated Red Blood Cells % 0.0 Phosphorus Level 3.3 Platelet Count 120 L Potassium Level 4.2 Prothrombin Time 19.1 H Prothrombin Time Ratio 1.5 Red Blood Count 3.11 L Red Cell Distribution Width 15.1 H Sodium Level 141 White Blood Count 12.8 #H Test 08/08/16 08:27 08/08/16 09:39 Bedside Glucose 137 113 Medications Current Medications Fluticasone Propionate (Flonase 0.05% Nasal) 1 spray BID NASAL Last administered on 08/08/16at 09:01; Admin Dose 1 SPRAY; Start 07/26/16 at 10:00 Epoetin [place] (Epogen (Esrd)) 10,000 units MoWeFr@17 SC Last administered on at 18:19; Admin Dose 10,000 UNITS; Start 07/27/16 at 17:00 Hydralazine HCl 10 mg 10 mg Q6H PRN IV ELEVATED BLOOD PRESSURE Last administered on 07/29/16at 12:59; Admin Dose 10 MG; Start 07/29/16 at 13:00 Midazolam HCl 50 mg/Dextrose 50 ml @ 1 mls/hr TITRATE IV Last administered on 08/05/16at 22:01; Admin Dose 5 MLS/HR; Start 08/01/16 at 23:00 Fentanyl/Dextrose (D5W) 100 ml @ 2.6 mls/hr TITRATE IV Last administered on at 23:21; Admin Dose 2.6 MLS/HR; Start 08/01/16 at 23:00 Acetaminophen (Tylenol Tab) 650 mg Q6H PRN GTB PAIN1-3/FEVER ABOVE 100; Start 08/02/16 at 15:00 Atorvastatin Calcium (Lipitor) 40 mg HS GTB Last administered on 08/07/16at 20: 37; Admin Dose 40 MG; Start 08/02/16 at 21:00 Carvedilol (Coreg) 6.25 mg BID GTB ; Start 08/02/16 at 09:00; Status Future Hold Duloxetine HCl (Cymbalta) 90 mg DAILY GTB Last administered on 08/08/16 09:02 ; Admin Dose 90 MG; Start 08/02/16 at 09:00 Guaifenesin (Robitussin Liquid Cup) 100 mg Q4 PRN GTB COUGH; Start 08/02/16 at 09:00 Acetaminophen/ Hydrocodone Bitart ([place] (5/325)) 1 tab Q4 PRN GTB [facility] Last administered on 08/08/16 09:01; Admin Dose 1 TAB; Start 08/02/16 at 09:00 Lactobacillus Acidoph/Bulgaricus (Floranex) 1 tab DAILY GTB Last administered on 08/08/16 09:02; Admin Dose 1 TAB; Start 08/02/16 at 09:00 Lorazepam (Ativan) 1 mg Q6H PRN GTB ANXIETY Last administered on 08/06/16 10: 27; Admin Dose 1 MG; Start 08/02/16 at 09:00 Multivit/Ca Carb/ B Cmplx/FA/Prenat (Cheryl-Darcie) 1 tab DAILY GTB Last administered on 08/08/16at 09:02; Admin Dose 1 TAB; Start 08/02/16 at 09:00 Polyethylene Glycol (Miralax) 17 gm DAILY GTB Last administered on 08/07/16at 09:45; Admin Dose 17 GM; Start 08/02/16 at 09:00 Sildenafil Citrate (Revatio) 20 mg BID GTB ; Start 08/02/16 at 09:00; Status Future Hold Warfarin Sodium (Coumadin) 2 mg DAILY@17 GTB Last administered on 08/07/16 17 :38; Admin Dose 2 MG; Start 08/02/16 at 17:00 Aspirin (Aspirin) 81 mg DAILY GTB Last administered on 08/08/16 09:01; Admin Dose 81 MG; Start 08/02/16 at 09:00 Lansoprazole 30 mg 30 mg DAILY@06 GTB Last administered on 08/08/16 06:21; Admin Dose 30 MG; Start 08/02/16 at 10:00 Vancomycin HCl (Vancocin) 250 ml @ 125 mls/hr Q96H IVPB Last administered on 08/07/16 14:14; Admin Dose 125 MLS/HR; Start 08/03/16 at 14:00 Diagnostic Test (Pha) (Accucheck) 1 ea Q1H XX Last administered on 08/08/16 09:41; Admin Dose 1 EA; Start 08/05/16 at 09:00 Dextrose (D50w Syringe) 25 ml Q15M PRN IV Till BS 80 mg/dL or above x2; Start 08/05/16 at 08:30 Dextrose (D50w Syringe) 50 ml Q15M PRN IV Till BS 80 mg/dL or above x2; Start 08/05/16 at 08:30 Moxifloxacin HCl (Vigamox) 1 drop TID BOTH EYES Last administered on 09:01; Admin Dose 1 DROP; Start 08/05/16 at 13:00; Stop 08/12/16 at 13:00 Methylprednisolone Sodium Succinate 40 mg 40 mg DAILY IV Last administered on 08/08/16at 09:01; Admin Dose 40 MG; Start 08/06/16 at 09:00 Phenylephrine HCl 80 mg/Dextrose 250 ml @ 18.75 mls/ hr TITRATE IV ; Start at 12:30 Norepinephrine 16 mg/Dextrose 500 ml @ 1.87 mls/hr TITRATE IV Last administered on 08/05/16at 14:51; Admin Dose 22.5 MLS/HR; Start 08/05/16 at 12: 00 Imipenem/ Cilastatin Sodium (Primaxin 500 Mg/ 100 ml (Pmx)) 100 ml @ 100 mls/ hr Q24H IVPB Last administered on 08/07/16 20:37; Admin Dose 100 MLS/HR; Start 08/05/16 at 21:00 Vancomycin HCl (Vancomycin Oral Syringe) 125 mg Q6 NGT Last administered on at 06:21; Admin Dose 125 MG; Start 08/06/16 at 18:00 Assessment/Plan Chief Complaint/Hosp Course assessment 1. Hypoxemic resp failure, acute requiring mechanical ventilation. 2. Pulm edema, right lower lobe infiltrate, possible aspiration pneumonia. 3. Encephalopathy toxic metabolic 4. Diastolic dysf ? 5. Persistent leukocytosis likely polymicrobial sepsis Plan 1. Continue Vent, CPAP trial 2. Hemodialysis per nephrology 3, Aspiration precautions 4. DVT / GI prophylaxis. 5. Continue broad-spectrum antibiotics pending cultures d/w staff Overall prognosis very poor consider addressing CODE STATUS Problems: VALERIE CAMARENA MD, [facility] Aug 08, 2016 09:47
--- NOTE | 2016-08-08 11:32 | CONS ---
Date/Time of Note Date/Time of Note DATE: 08/08/16 TIME: 11:28 Assessment/Plan Assessment/Plan Additional Assessment/Plan Respiratory failure status post intubation Sepsis Minimally elevated troponin Partial right internal jugular DVT Diastolic congestive heart failure End-stage renal disease on hemodialysis CAD with history of PCI Diabetes Peripheral arterial disease with history of amputation Pulmonary hypertension -Patient remains sedated and intubated, ventilator weaning as per our pulmonary colleagues, given improvement in blood pressure, would restart sildenafil, fluid management as per our nephrology colleagues. Consultation Date/Type/Reason Admit Date/Time Jul 26, 2016 at 01:55 Type of Consultation: cv Referring Provider: GRACIE KATHLEEN 24 HR Interval Summary Free Text/Dictation Patient seen and examined, more awake today, denies chest pain or shortness of breath Exam/Review of Systems Vital Signs Vitals Vital Signs Date Time Temp Pulse Resp B/P Pulse Ox O2 Delivery O2 Flow Rate FiO2 08/08/16 10:00 82 16 136/68 96 Mechanical Ventilator 08/08/16 09:48 35 08/08/16 08:00 98.3 Intake and Output 08/07/16 08/07/16 08/08/16 15:00 23:00 07:00 Intake Total 413 ml 1166.5 ml 570.5 ml Output Total 3500 ml Balance 413 ml -2333.5 ml 570.5 ml Exam Follows some commands Constitutional: alert Head: normocephalic ENMT: intubated Respiratory: other (course breath sounds bilaterally, no wheezing) Cardiovascular: other (S1-S2 heard), regular rate and rhythm Gastrointestinal: bowel sounds, non-tender, soft Extremities: edema (trace) Results Result Diagram: 08/08/16 0600 08/08/16 0600 Results 24 hrs Laboratory Tests Test 08/07/16 11:58 08/07/16 13:46 08/07/16 16:15 08/07/16 17:28 Bedside Glucose 120 149 181 163 Test 08/07/16 18:29 08/07/16 19:40 08/07/16 20:33 08/07/16 21:27 Bedside Glucose 183 116 104 125 Test 08/07/16 22:27 08/07/16 23:22 08/08/16 00:27 08/08/16 01:18 Bedside Glucose 131 120 114 123 Test 08/08/16 02:15 08/08/16 03:13 08/08/16 04:07 08/08/16 05:22 Bedside Glucose 123 110 113 109 Test 08/08/16 06:00 08/08/16 06:19 08/08/16 07:37 08/08/16 08:27 Anion Gap 19 H Basophils # 0.0 Basophils % 0.0 Blood Morphology Comment Blood Urea Nitrogen 64 #H Calcium Level 8.1 L Carbon Dioxide Level 25 Chloride Level 101 Creatinine 3.16 #H Eosinophils # 0.0 Eosinophils % 0.1 Glucose Level 128 Hematocrit 30.4 L Hemoglobin 10.1 L INR International Normalized Ratio 1.59 Lymphocytes # 0.6 L Lymphocytes % 4.8 L Mean Corpuscular Hemoglobin 32.6 Mean Corpuscular Hemoglobin Concent 33.4 Mean Corpuscular Volume 97.7 Mean Platelet Volume 7.8 Monocytes # 0.6 Monocytes % 4.9 Neutrophils # 11.5 H Neutrophils % 90.2 H Nucleated Red Blood Cells # 0.0 Nucleated Red Blood Cells % 0.0 Phosphorus Level 3.3 Platelet Count 120 L Potassium Level 4.2 Prothrombin Time 19.1 H Prothrombin Time Ratio 1.5 Red Blood Count 3.11 L Red Cell Distribution Width 15.1 H Sodium Level 141 White Blood Count 12.8 #H Bedside Glucose 130 160 137 Test 08/08/16 09:39 08/08/16 10:21 Bedside Glucose 113 116 Medications Medications Current Medications Fluticasone Propionate (Flonase 0.05% Nasal) 1 spray BID NASAL Last administered on 08/08/16at 09:01; Admin Dose 1 SPRAY; Start 07/26/16 at 10:00 Epoetin [place] (Epogen (Esrd)) 10,000 units MoWeFr@17 SC Last administered on at 18:19; Admin Dose 10,000 UNITS; Start 07/27/16 at 17:00 Hydralazine HCl 10 mg 10 mg Q6H PRN IV ELEVATED BLOOD PRESSURE Last administered on 07/29/16at 12:59; Admin Dose 10 MG; Start 07/29/16 at 13:00 Midazolam HCl 50 mg/Dextrose 50 ml @ 1 mls/hr TITRATE IV Last administered on 08/05/16at 22:01; Admin Dose 5 MLS/HR; Start 08/01/16 at 23:00 Fentanyl/Dextrose (D5W) 100 ml @ 2.6 mls/hr TITRATE IV Last administered on at 23:21; Admin Dose 2.6 MLS/HR; Start 08/01/16 at 23:00 Acetaminophen (Tylenol Tab) 650 mg Q6H PRN GTB PAIN1-3/FEVER ABOVE 100; Start 08/02/16 at 15:00 Atorvastatin Calcium (Lipitor) 40 mg HS GTB Last administered on 08/07/16at 20: 37; Admin Dose 40 MG; Start 08/02/16 at 21:00 Carvedilol (Coreg) 6.25 mg BID GTB ; Start 08/02/16 at 09:00; Status Future Hold Duloxetine HCl (Cymbalta) 90 mg DAILY GTB Last administered on 08/08/16at 09:02 ; Admin Dose 90 MG; Start 08/02/16 at 09:00 Guaifenesin (Robitussin Liquid Cup) 100 mg Q4 PRN GTB COUGH; Start 08/02/16 at 09:00 Acetaminophen/ Hydrocodone Bitart ([place] (5/325)) 1 tab Q4 PRN GTB [facility] Last administered on 08/08/16at 09:01; Admin Dose 1 TAB; Start 08/02/16 at 09:00 Lactobacillus Acidoph/Bulgaricus (Floranex) 1 tab DAILY GTB Last administered on 08/08/16at 09:02; Admin Dose 1 TAB; Start 08/02/16 at 09:00 Lorazepam (Ativan) 1 mg Q6H PRN GTB ANXIETY Last administered on 08/06/16at 10: 27; Admin Dose 1 MG; Start 08/02/16 at 09:00 Multivit/Ca Carb/ B Cmplx/FA/Prenat (Cheryl-Darcie) 1 tab DAILY GTB Last administered on 08/08/16at 09:02; Admin Dose 1 TAB; Start 08/02/16 at 09:00 Polyethylene Glycol (Miralax) 17 gm DAILY GTB Last administered on 08/07/16at 09:45; Admin Dose 17 GM; Start 08/02/16 at 09:00 Sildenafil Citrate (Revatio) 20 mg BID GTB ; Start 08/02/16 at 09:00; Status Future Hold Warfarin Sodium (Coumadin) 2 mg DAILY@17 GTB Last administered on 08/07/16at 17 :38; Admin Dose 2 MG; Start 08/02/16 at 17:00 Aspirin (Aspirin) 81 mg DAILY GTB Last administered on 08/08/16at 09:01; Admin Dose 81 MG; Start 08/02/16 at 09:00 Lansoprazole 30 mg 30 mg DAILY@06 GTB Last administered on 08/08/16at 06:21; Admin Dose 30 MG; Start 08/02/16 at 10:00 Vancomycin HCl (Vancocin) 250 ml @ 125 mls/hr Q96H IVPB Last administered on 08/07/16 14:14; Admin Dose 125 MLS/HR; Start 08/03/16 at 14:00 Diagnostic Test (Pha) (Accucheck) 1 ea Q1H XX Last administered on 08/08/16at 10:22; Admin Dose 1 EA; Start 08/05/16 at 09:00 Dextrose (D50w Syringe) 25 ml Q15M PRN IV Till BS 80 mg/dL or above x2; Start 08/05/16 at 08:30 Dextrose (D50w Syringe) 50 ml Q15M PRN IV Till BS 80 mg/dL or above x2; Start 08/05/16 at 08:30 Moxifloxacin HCl (Vigamox) 1 drop TID BOTH EYES Last administered on at 09:01; Admin Dose 1 DROP; Start 08/05/16 at 13:00; Stop 08/12/16 at 13:00 Methylprednisolone Sodium Succinate 40 mg 40 mg DAILY IV Last administered on 08/08/16at 09:01; Admin Dose 40 MG; Start 08/06/16 at 09:00 Phenylephrine HCl 80 mg/Dextrose 250 ml @ 18.75 mls/ hr TITRATE IV ; Start at 12:30 Norepinephrine 16 mg/Dextrose 500 ml @ 1.87 mls/hr TITRATE IV Last administered on 08/05/16at 14:51; Admin Dose 22.5 MLS/HR; Start 08/05/16 at 12: 00 Imipenem/ Cilastatin Sodium (Primaxin 500 Mg/ 100 ml (Pmx)) 100 ml @ 100 mls/ hr Q24H IVPB Last administered on 08/07/16at 20:37; Admin Dose 100 MLS/HR; Start 08/05/16 at 21:00 Vancomycin HCl (Vancomycin Oral Syringe) 125 mg Q6 NGT Last administered on at 06:21; Admin Dose 125 MG; Start 08/06/16 at 18:00 Solo Leon DO Aug 08, 2016 11:32
[2016-08-08] MEDS: LORAZEPAM 1 MG TAB GTB PRN ×2 (14:20→21:02)
--- NOTE | 2016-08-08 17:20 | CONS ---
Date/Time of Note Date/Time of Note DATE: 08/08/16 TIME: 17:16 Assessment/Plan Assessment/Plan Additional Assessment/Plan assessment/impression - acute hypoxemic respiratory failure - intubated 07/31 - Pulm edema, right lower lobe infiltrate, possible aspiration pneumonia per Pulmonary (Sputum grew 08/02 rare jerry albicans) - persistent hypotension after HD - s/p short term Levophed 08/02 (short term) and restarted on Levophed 08/04/16-08/06 after HD; on steroid trial. - C diff colitis - intermittent fever - recent RUE cellulitis complicated by axillary/cephalic venous thrombosis - toxic metabolic encephalopathy - ESRD on HD - hyperglycemia d/t steroids - Diastolic CHF, CAD - Old partial DVT of the right internal jugular vein. - coagulopathy d/t warfarin - PAD with Hx Left BKA - Parkinson's - PCN allergic recommendations: - repeat panculture if temp >100.4F - continue IV vancomycin (07/29/16-) and Primaxin 500 mg IV q24h (08/05/16-); (s /p aztreonam 07/29-08/05) - continue PO vanco via OGT (07/1916-) the critical care time I took to care for this Pt today was from 1645 to 1720 Consultation Date/Type/Reason Admit Date/Time Jul 26, 2016 at 01:55 Initial Consult Date 07/29/16 Type of Consultation: ID Referring Provider: GRACIE KATHLEEN 24 HR Interval Summary Free Text/Dictation failed weaning trial Subjective hx not possible: pt non-verbal, pt critical, pt critical status Exam/Review of Systems Vital Signs Vitals Vital Signs Date Time Temp Pulse Resp B/P Pulse Ox O2 Delivery O2 Flow Rate FiO2 08/08/16 17:07 100 25 99 35 08/08/16 15:15 145/63 08/08/16 15:00 Mechanical Ventilator 08/08/16 12:00 98.6 Intake and Output 08/07/16 08/07/16 08/08/16 15:00 23:00 07:00 Intake Total 413 ml 1166.5 ml 570.5 ml Output Total 3500 ml Balance 413 ml -2333.5 ml 570.5 ml Exam Constitutional: distress, frail, non-verbal Psych: confusion Head: normocephalic Eyes: nl conjunctiva ENMT: intubated Respiratory: crackles/rales Cardiovascular: nl pulses, regular rate and rhythm Gastrointestinal: non-tender, other (RT), soft Musculoskeletal: nl extremities to inspection Extremities: edema Skin: ecchymosis Results Result Diagram: 08/08/16 0600 08/08/16 0600 Results 24 hrs Laboratory Tests Test 08/07/16 17:28 08/07/16 18:29 08/07/16 19:40 08/07/16 20:33 Bedside Glucose 163 183 116 104 Test 08/07/16 21:27 08/07/16 22:27 08/07/16 23:22 08/08/16 00:27 Bedside Glucose 125 131 120 114 Test 08/08/16 01:18 08/08/16 02:15 08/08/16 03:13 08/08/16 04:07 Bedside Glucose 123 123 110 113 Test 08/08/16 05:22 08/08/16 06:00 08/08/16 06:19 08/08/16 07:37 Bedside Glucose 109 130 160 Anion Gap 19 H Basophils # 0.0 Basophils % 0.0 Blood Morphology Comment Blood Urea Nitrogen 64 #H Calcium Level 8.1 L Carbon Dioxide Level 25 Chloride Level 101 Creatinine 3.16 #H Eosinophils # 0.0 Eosinophils % 0.1 Glucose Level 128 Hematocrit 30.4 L Hemoglobin 10.1 L INR International Normalized Ratio 1.59 Lymphocytes # 0.6 L Lymphocytes % 4.8 L Mean Corpuscular Hemoglobin 32.6 Mean Corpuscular Hemoglobin Concent 33.4 Mean Corpuscular Volume 97.7 Mean Platelet Volume 7.8 Monocytes # 0.6 Monocytes % 4.9 Neutrophils # 11.5 H Neutrophils % 90.2 H Nucleated Red Blood Cells # 0.0 Nucleated Red Blood Cells % 0.0 Phosphorus Level 3.3 Platelet Count 120 L Potassium Level 4.2 Prothrombin Time 19.1 H Prothrombin Time Ratio 1.5 Red Blood Count 3.11 L Red Cell Distribution Width 15.1 H Sodium Level 141 White Blood Count 12.8 #H Test 08/08/16 08:27 08/08/16 09:39 08/08/16 10:21 08/08/16 11:33 Bedside Glucose 137 113 116 121 Test 08/08/16 12:12 08/08/16 13:31 08/08/16 14:36 12/21/16 15:16 Bedside Glucose 133 119 129 150 Test 08/08/16 16:22 Bedside Glucose 113 Medications Medications Current Medications Fluticasone Propionate (Flonase 0.05% Nasal) 1 spray BID NASAL Last administered on 08/08/16at 09:01; Admin Dose 1 SPRAY; Start 07/26/16 at 10:00 Epoetin [place] (Epogen (Esrd)) 10,000 units MoWeFr@17 SC Last administered on at 18:19; Admin Dose 10,000 UNITS; Start 07/27/16 at 17:00 Hydralazine HCl 10 mg 10 mg Q6H PRN IV ELEVATED BLOOD PRESSURE Last administered on 07/29/16at 12:59; Admin Dose 10 MG; Start 07/29/16 at 13:00 Midazolam HCl 50 mg/Dextrose 50 ml @ 1 mls/hr TITRATE IV Last administered on 08/05/16at 22:01; Admin Dose 5 MLS/HR; Start 08/01/16 at 23:00 Fentanyl/Dextrose (D5W) 100 ml @ 2.6 mls/hr TITRATE IV Last administered on at 23:21; Admin Dose 2.6 MLS/HR; Start 08/01/16 at 23:00 Acetaminophen (Tylenol Tab) 650 mg Q6H PRN GTB PAIN1-3/FEVER ABOVE 100; Start 08/02/16 at 15:00 Atorvastatin Calcium (Lipitor) 40 mg HS GTB Last administered on 08/07/16at 20: 37; Admin Dose 40 MG; Start 08/02/16 at 21:00 Carvedilol (Coreg) 6.25 mg BID GTB ; Start 08/02/16 at 09:00; Status Future Hold Duloxetine HCl (Cymbalta) 90 mg DAILY GTB Last administered on 08/08/16at 09:02 ; Admin Dose 90 MG; Start 08/02/16 at 09:00 Guaifenesin (Robitussin Liquid Cup) 100 mg Q4 PRN GTB COUGH; Start 08/02/16 at 09:00 Acetaminophen/ Hydrocodone Bitart ([place] (5/325)) 1 tab Q4 PRN GTB [facility] Last administered on 08/08/16at 09:01; Admin Dose 1 TAB; Start 08/02/16 at 09:00 Lactobacillus Acidoph/Bulgaricus (Floranex) 1 tab DAILY GTB Last administered on 08/08/16 09:02; Admin Dose 1 TAB; Start 08/02/16 at 09:00 Lorazepam (Ativan) 1 mg Q6H PRN GTB ANXIETY Last administered on 08/08/16 14: 20; Admin Dose 1 MG; Start 08/02/16 at 09:00 Multivit/Ca Carb/ B Cmplx/FA/Prenat (Cheryl-Darcie) 1 tab DAILY GTB Last administered on 08/08/16 09:02; Admin Dose 1 TAB; Start 08/02/16 at 09:00 Polyethylene Glycol (Miralax) 17 gm DAILY GTB Last administered on 08/07/16 09:45; Admin Dose 17 GM; Start 08/02/16 at 09:00 Aspirin (Aspirin) 81 mg DAILY GTB Last administered on 08/08/16 09:01; Admin Dose 81 MG; Start 08/02/16 at 09:00 Lansoprazole 30 mg 30 mg DAILY@06 GTB Last administered on 08/08/16at 06:21; Admin Dose 30 MG; Start 08/02/16 at 10:00 Vancomycin HCl (Vancocin) 250 ml @ 125 mls/hr Q96H IVPB Last administered on 08/07/16 14:14; Admin Dose 125 MLS/HR; Start 08/03/16 at 14:00 Diagnostic Test (Pha) (Accucheck) 1 ea Q1H XX Last administered on 08/08/16 16:26; Admin Dose 1 EA; Start 08/05/16 at 09:00 Dextrose (D50w Syringe) 25 ml Q15M PRN IV Till BS 80 mg/dL or above x2; Start 08/05/16 at 08:30 Dextrose (D50w Syringe) 50 ml Q15M PRN IV Till BS 80 mg/dL or above x2; Start 08/05/16 at 08:30 Moxifloxacin HCl (Vigamox) 1 drop TID BOTH EYES Last administered on 13:29; Admin Dose 1 DROP; Start 08/05/16 at 13:00; Stop 08/12/16 at 13:00 Methylprednisolone Sodium Succinate 40 mg 40 mg DAILY IV Last administered on 12/21/16at 09:01; Admin Dose 40 MG; Start 08/06/16 at 09:00 Phenylephrine HCl 80 mg/Dextrose 250 ml @ 18.75 mls/ hr TITRATE IV ; Start at 12:30 Norepinephrine 16 mg/Dextrose 500 ml @ 1.87 mls/hr TITRATE IV Last administered on 08/05/16at 14:51; Admin Dose 22.5 MLS/HR; Start 08/05/16 at 12: 00 Imipenem/ Cilastatin Sodium (Primaxin 500 Mg/ 100 ml (Pmx)) 100 ml @ 100 mls/ hr Q24H IVPB Last administered on 08/07/16at 20:37; Admin Dose 100 MLS/HR; Start 08/05/16 at 21:00 Vancomycin HCl (Vancomycin Oral Syringe) 125 mg Q6 NGT Last administered on at 11:32; Admin Dose 125 MG; Start 08/06/16 at 18:00 Sildenafil Citrate (Revatio) 20 mg BID PO ; Start 08/08/16 at 21:00 Warfarin Sodium (Coumadin) 2.5 mg DAILY@17 GTB ; Start 08/08/16 at 17:00 SADIA LONDON M.D. Aug 08, 2016 17:20
[2016-08-08] MEDS: WARFARIN 2.5 MG TAB GTB SCH (17:41)
[2016-08-08] MEDS: EPOETIN 10000 UNITS/1 ML INJ (ESRD) SC SCH (17:42)
--- NOTE | 2016-08-08 17:45 | PN ---
Date/Time of Note Date/Time of Note DATE: 08/08/16 TIME: 17:41 Assessment/Plan VTE Prophylaxis VTE Prophylaxis Intervention: other Lines/Catheters IV [facility] Type [facility]from [facility] Mid Line Urinary Cath still in place: No Assessment/Plan Assessment/Plan 1. Acute respiratory failure- sp intubation on 07/31 - per pulmonary, continue ventilator support, bronchodilators, steroids. 2. Possible pneumonia- right lower lobe infiltrate- possible aspiration pneumonia per Pulmonary. Sputum grew 08/02 rare jerry albicans - per Dr. Reardon in infectious disease consultation. 3. Early sepsis d/t C diff - recurrent leukocytosis improving and low grade fever resolving. 4. End-stage renal disease hemodialysis dependent. - on HD - per Dr. Bassett in nephrology consultation 5. Diastolic congestive heart failure. Continue to remove fluid was hemodialysis. 6. Partial right internal jugular DVT. Continue Coumadin. Continue daily PT PTT. 7. C diff stool - per ID - on po Vanco - contact isolation 8. RUE cellulitis with axillary/cephalic venous thrombosis - PER id 9. Hyperglycemia- GLYCEMIC Control- stable 10. Toxic metabolic encephalopathy 11. Osteoporosis. 12. Pulmonary hypertension. Continue sildenafil. 13. Coronary artery disease with history of PCI. 14. Depression. Continue Cymbalta 15. History of left hip fracture, treated conservatively. Protonix for peptic ulcer disease prophylaxis Further recommendations based on clinical course. Total critical time spend = 30 mins Plan of care discussed with Dr. Miramontes. Subjective 24 Hr Interval Summary Constitutional: requiring IVF, requiring O2 Cardiovascular: no complaints Exam/Review of Systems Vital Signs Vitals Vital Signs Date Time Temp Pulse Resp B/P Pulse Ox O2 Delivery O2 Flow Rate FiO2 08/08/16 17:07 100 25 99 35 08/08/16 15:15 145/63 08/08/16 15:00 Mechanical Ventilator 08/08/16 12:00 98.6 Intake and Output 08/07/16 08/07/16 08/08/16 15:00 23:00 07:00 Intake Total 413 ml 1166.5 ml 570.5 ml Output Total 3500 ml Balance 413 ml -2333.5 ml 570.5 ml Exam Remains orally intubated, open eyes, responsive to name. no acute distress noted.dw staff. Constitutional: frail, other Eyes: nl sclera ENMT: nl external ears & nose Respiratory: diminished breath sounds Cardiovascular: nl pulses Gastrointestinal: soft Neurological: lethargic Lymph: nontender Results Result Diagram: 08/08/16 0600 08/08/16 0600 Results 24 hrs Laboratory Tests Test 08/07/16 18:29 08/07/16 19:40 08/07/16 20:33 08/07/16 21:27 Bedside Glucose 183 116 104 125 Test 08/07/16 22:27 08/07/16 23:22 08/08/16 00:27 08/08/16 01:18 Bedside Glucose 131 120 114 123 Test 08/08/16 02:15 08/08/16 03:13 08/08/16 04:07 08/08/16 05:22 Bedside Glucose 123 110 113 109 Test 08/08/16 06:00 08/08/16 06:19 08/08/16 07:37 08/08/16 08:27 Anion Gap 19 H Basophils # 0.0 Basophils % 0.0 Blood Morphology Comment Blood Urea Nitrogen 64 #H Calcium Level 8.1 L Carbon Dioxide Level 25 Chloride Level 101 Creatinine 3.16 #H Eosinophils # 0.0 Eosinophils % 0.1 Glucose Level 128 Hematocrit 30.4 L Hemoglobin 10.1 L INR International Normalized Ratio 1.59 Lymphocytes # 0.6 L Lymphocytes % 4.8 L Mean Corpuscular Hemoglobin 32.6 Mean Corpuscular Hemoglobin Concent 33.4 Mean Corpuscular Volume 97.7 Mean Platelet Volume 7.8 Monocytes # 0.6 Monocytes % 4.9 Neutrophils # 11.5 H Neutrophils % 90.2 H Nucleated Red Blood Cells # 0.0 Nucleated Red Blood Cells % 0.0 Phosphorus Level 3.3 Platelet Count 120 L Potassium Level 4.2 Prothrombin Time 19.1 H Prothrombin Time Ratio 1.5 Red Blood Count 3.11 L Red Cell Distribution Width 15.1 H Sodium Level 141 White Blood Count 12.8 #H Bedside Glucose 130 160 137 Test 08/08/16 09:39 08/08/16 10:21 08/08/16 11:33 08/08/16 12:12 Bedside Glucose 113 116 121 133 Test 08/08/16 13:31 08/08/16 14:36 08/08/16 15:16 08/08/16 16:22 Bedside Glucose 119 129 150 113 Medications Medications Current Medications Fluticasone Propionate (Flonase 0.05% Nasal) 1 spray BID NASAL Last administered on 08/08/16 09:01; Admin Dose 1 SPRAY; Start 07/26/16 at 10:00 Epoetin [place] (Epogen (Esrd)) 10,000 units MoWeFr@17 SC Last administered on 18:19; Admin Dose 10,000 UNITS; Start 07/27/16 at 17:00 Hydralazine HCl 10 mg 10 mg Q6H PRN IV ELEVATED BLOOD PRESSURE Last administered on 07/29/16at 12:59; Admin Dose 10 MG; Start 07/29/16 at 13:00 Midazolam HCl 50 mg/Dextrose 50 ml @ 1 mls/hr TITRATE IV Last administered on 08/05/16 22:01; Admin Dose 5 MLS/HR; Start 08/01/16 at 23:00 Fentanyl/Dextrose (D5W) 100 ml @ 2.6 mls/hr TITRATE IV Last administered on at 23:21; Admin Dose 2.6 MLS/HR; Start 08/01/16 at 23:00 Acetaminophen (Tylenol Tab) 650 mg Q6H PRN GTB PAIN1-3/FEVER ABOVE 100; Start 08/02/16 at 15:00 Atorvastatin Calcium (Lipitor) 40 mg HS GTB Last administered on 08/07/16at 20: 37; Admin Dose 40 MG; Start 08/02/16 at 21:00 Carvedilol (Coreg) 6.25 mg BID GTB ; Start 08/02/16 at 09:00; Status Future Hold Duloxetine HCl (Cymbalta) 90 mg DAILY GTB Last administered on 08/08/16at 09:02 ; Admin Dose 90 MG; Start 08/02/16 at 09:00 Guaifenesin (Robitussin Liquid Cup) 100 mg Q4 PRN GTB COUGH; Start 08/02/16 at 09:00 Acetaminophen/ Hydrocodone Bitart ([place] (5/325)) 1 tab Q4 PRN GTB [facility] Last administered on 08/08/16 09:01; Admin Dose 1 TAB; Start 08/02/16 at 09:00 Lactobacillus Acidoph/Bulgaricus (Floranex) 1 tab DAILY GTB Last administered on 08/08/16at 09:02; Admin Dose 1 TAB; Start 08/02/16 at 09:00 Lorazepam (Ativan) 1 mg Q6H PRN GTB ANXIETY Last administered on 08/08/16 14: 20; Admin Dose 1 MG; Start 08/02/16 at 09:00 Multivit/Ca Carb/ B Cmplx/FA/Prenat (Cheryl-Darcie) 1 tab DAILY GTB Last administered on 08/08/16 09:02; Admin Dose 1 TAB; Start 08/02/16 at 09:00 Polyethylene Glycol (Miralax) 17 gm DAILY GTB Last administered on 08/07/16 09:45; Admin Dose 17 GM; Start 08/02/16 at 09:00 Aspirin (Aspirin) 81 mg DAILY GTB Last administered on 08/08/16at 09:01; Admin Dose 81 MG; Start 08/02/16 at 09:00 Lansoprazole 30 mg 30 mg DAILY@06 GTB Last administered on 08/08/16at 06:21; Admin Dose 30 MG; Start 08/02/16 at 10:00 Vancomycin HCl (Vancocin) 250 ml @ 125 mls/hr Q96H IVPB Last administered on 08/07/16 14:14; Admin Dose 125 MLS/HR; Start 08/03/16 at 14:00 Diagnostic Test (Pha) (Accucheck) 1 ea Q1H XX Last administered on 08/08/16at 16:26; Admin Dose 1 EA; Start 08/05/16 at 09:00 Dextrose (D50w Syringe) 25 ml Q15M PRN IV Till BS 80 mg/dL or above x2; Start 08/05/16 at 08:30 Dextrose (D50w Syringe) 50 ml Q15M PRN IV Till BS 80 mg/dL or above x2; Start 08/05/16 at 08:30 Moxifloxacin HCl (Vigamox) 1 drop TID BOTH EYES Last administered on 13:29; Admin Dose 1 DROP; Start 08/05/16 at 13:00; Stop 08/12/16 at 13:00 Methylprednisolone Sodium Succinate 40 mg 40 mg DAILY IV Last administered on 08/08/16at 09:01; Admin Dose 40 MG; Start 08/06/16 at 09:00 Phenylephrine HCl 80 mg/Dextrose 250 ml @ 18.75 mls/ hr TITRATE IV ; Start at 12:30 Norepinephrine 16 mg/Dextrose 500 ml @ 1.87 mls/hr TITRATE IV Last administered on 08/05/16at 14:51; Admin Dose 22.5 MLS/HR; Start 08/05/16 at 12: 00 Imipenem/ Cilastatin Sodium (Primaxin 500 Mg/ 100 ml (Pmx)) 100 ml @ 100 mls/ hr Q24H IVPB Last administered on 08/07/16at 20:37; Admin Dose 100 MLS/HR; Start 08/05/16 at 21:00 Vancomycin HCl (Vancomycin Oral Syringe) 125 mg Q6 NGT Last administered on at 11:32; Admin Dose 125 MG; Start 08/06/16 at 18:00 Sildenafil Citrate (Revatio) 20 mg BID PO ; Start 08/08/16 at 21:00 Warfarin Sodium (Coumadin) 2.5 mg DAILY@17 GTB ; Start 08/08/16 at 17:00 GRACIE KATHLEEN Aug 08, 2016 17:45
[2016-08-08] MEDS: INSULIN REGULAR, HUMAN 100 UNIT in SOD CHLORIDE 0.9% 99 ML IV SCH ×2 (18:02)
[2016-08-08] MEDS: IMIPENEM-CILAST 500MG IV (PMX) 100 ML IVPB SCH (20:49)
[2016-08-08] MEDS: SILDENAFIL 20 MG TAB PO SCH (20:50)
[2016-08-08] MEDS: ATORVASTATIN 40 MG TAB GTB SCH (20:50)
[2016-08-09] VITALS (62 sets, daily range): BP systolic 84–150; BP diastolic 46–102; PULSE 90–127; RESP 16–38
[2016-08-09] MEDS: ACCUCHECK XX SCH ×23 (00:50→23:03)
[2016-08-09] MEDS: VANCOMYCIN HCL 250 MG/5ML POSYG NGT SCH ×5 (01:00→23:52)
[2016-08-09] MEDS: INSULIN GLARGINE [LANtus] 3 ML PEN SC SCH ×2 (01:04→21:29)
[2016-08-09] MEDS: ALBUTEROL HFA 8 GM INHALER INH SCH ×6 (01:17→20:46)
[2016-08-09] MEDS: LORAZEPAM 2 MG INJ IV PRN ×2 (01:29→10:51)
[2016-08-09] MEDS: LANSOPRAZOLE 30 MG CAP GTB SCH (05:17)
[2016-08-09 06:56] LABS: BASOPHIL # 0.1 10^3/ul (0.0-0.1); BASOPHILS % 0.6 % (0.0-2.0); EOSINOPHILS % 0.1 % (0.0-7.0); HEMATOCRIT 32.5 % (42.0-52.0); HEMOGLOBIN 10.8 g/dl (14.0-18.0); LYMPHOCYTES # 0.9 10^3/ul (0.8-2.9); LYMPHOCYTES % 3.8 % (15.0-51.0); MEAN CORPUSCULAR HEMOGLOBIN 31.8 pg (29.0-33.0); MEAN CORPUSCULAR HGB CONC 33.1 g/dl (32.0-37.0); MEAN CORPUSCULAR VOLUME 96.2 fl (82.0-101.0); MONOCYTE # 1.1 10^3/ul (0.3-0.9); MONOCYTES % 4.9 % (0.0-11.0); NEUTROPHIL # 20.7 10^3/ul (1.6-7.5); NEUTROPHILS % 90.6 % (39.0-77.0); PLATELET COUNT 182 10^3/UL (140-440); RED BLOOD COUNT 3.38 10^6/ul (4.70-6.10); RED CELL DISTRIBUTION WIDTH 14.7 % (11.5-14.5); UNCORRECTED WBC 22.8 10^3/ul (4.8-10.8); WHITE BLOOD COUNT 22.8 10^3/ul (4.8-10.8)
[2016-08-09 07:04] LABS: SUSPECT 1
[2016-08-09 07:05] LABS: CONDITION 1; LH ANALYZER COMMENTS 1
[2016-08-09 07:22] LABS: ALBUMIN 3.3 g/dl (3.3-4.9); POTASSIUM 3.4 mmol/L (3.5-5.1)
[2016-08-09 07:24] LABS: ALBUMIN/GLOBULIN RATIO 1.1; BILIRUBIN,INDIRECT 0.1 mg/dl (0-1.1); BILIRUBIN,TOTAL 0.1 mg/dl (0.2-1.3); CREATININE 4.01 mg/dl (0.61-1.24); TOTAL PROTEIN 6.3 g/dl (6.1-8.1)
[2016-08-09 07:25] LABS: CALCIUM 8.2 mg/dl (8.4-10.2)
--- NOTE | 2016-08-09 08:35 | CONS ---
Date/Time of Note Date/Time of Note DATE: 08/09/16 TIME: 08:33 Assessment/Plan Assessment/Plan Additional Assessment/Plan 1. Pneumonia, abx per ID 2. C diff on po vanco 3. CKD, now being dialyzed 4. Ventilator dependent 5. Cont to taper steroids? Consultation Date/Type/Reason Admit Date/Time Jul 26, 2016 at 01:55 Type of Consultation: ID Referring Provider: GRACIE KATHLEEN 24 HR Interval Summary Subjective hx not possible: other (Intbated) Exam/Review of Systems Vital Signs Vitals Vital Signs Date Time Temp Pulse Resp B/P Pulse Ox O2 Delivery O2 Flow Rate FiO2 08/09/16 05:30 100 19 99/73 98 08/09/16 05:14 40 08/09/16 05:00 Mechanical Ventilator 08/09/16 04:00 98.3 Intake and Output 08/08/16 08/08/16 08/09/16 15:00 23:00 07:00 Intake Total 344 ml 422.5 ml 417.5 ml Output Total 0 ml 0 ml 0 ml Balance 344 ml 422.5 ml 417.5 ml Exam Neck: No jvd Respiratory: clear to auscultation, diminished breath sounds Cardiovascular: regular rate and rhythm Gastrointestinal: soft Extremities: edema (trace sacral edema) Results Result Diagram: 08/09/16 0645 08/09/16 0645 Results 24 hrs Laboratory Tests Test 08/08/16 09:39 08/08/16 10:21 08/08/16 11:33 08/08/16 12:12 Bedside Glucose 113 116 121 133 Test 08/08/16 13:31 08/08/16 14:36 08/08/16 15:16 08/08/16 16:22 Bedside Glucose 119 129 150 113 Test 08/08/16 17:40 08/08/16 18:54 08/08/16 20:33 08/08/16 21:35 Bedside Glucose 106 137 112 104 Test 08/08/16 22:22 08/08/16 23:23 08/09/16 00:47 08/09/16 01:28 Bedside Glucose 121 157 112 97 Test 08/09/16 02:20 08/09/16 03:25 08/09/16 04:23 08/09/16 05:12 Bedside Glucose 101 132 117 115 Test 08/09/16 06:27 08/09/16 06:45 08/09/16 07:50 08/09/16 08:16 Bedside Glucose 121 143 Alanine Aminotransferase (ALT/SGPT) 54 Albumin 3.3 Albumin/Globulin Ratio 1.10 Alkaline Phosphatase 142 H Anion Gap 20 H Aspartate Amino Transf (AST/SGOT) 66 H Basophils # 0.1 Basophils % 0.6 Blood Morphology Comment Blood Urea Nitrogen 88 H Calcium Level 8.2 L Carbon Dioxide Level 23 Chloride Level 101 Creatinine 4.01 H Direct Bilirubin 0.00 Eosinophils # 0.0 Eosinophils % 0.1 Globulin 3.00 Glucose Level 118 Hematocrit 32.5 L Hemoglobin 10.8 L Indirect Bilirubin 0.1 Lymphocytes # 0.9 Lymphocytes % 3.8 L Mean Corpuscular Hemoglobin 31.8 Mean Corpuscular Hemoglobin Concent 33.1 Mean Corpuscular Volume 96.2 Mean Platelet Volume 8.0 Monocytes # 1.1 H Monocytes % 4.9 Neutrophils # 20.7 H Neutrophils % 90.6 H Nucleated Red Blood Cells # 0.0 Nucleated Red Blood Cells % 0.0 Phosphorus Level 3.2 Platelet Count 182 # Potassium Level 3.4 L Prealbumin 12.2 L Red Blood Count 3.38 L Red Cell Distribution Width 14.7 H Sodium Level 141 Total Bilirubin 0.1 L Total Protein 6.3 White Blood Count 22.8 #H Lab Scanned Report REFERENCE LAB Medications Medications Current Medications Fluticasone Propionate (Flonase 0.05% Nasal) 1 spray BID NASAL Last administered on 08/08/16at 20:50; Admin Dose 1 SPRAY; Start 07/26/16 at 10:00 Epoetin [place] (Epogen (Esrd)) 10,000 units MoWeFr@17 SC Last administered on at 17:42; Admin Dose 10,000 UNITS; Start 07/27/16 at 17:00 Hydralazine HCl 10 mg 10 mg Q6H PRN IV ELEVATED BLOOD PRESSURE Last administered on 07/29/16at 12:59; Admin Dose 10 MG; Start 07/29/16 at 13:00 Midazolam HCl 50 mg/Dextrose 50 ml @ 1 mls/hr TITRATE IV Last administered on 08/05/16at 22:01; Admin Dose 5 MLS/HR; Start 08/01/16 at 23:00 Fentanyl/Dextrose (D5W) 100 ml @ 2.6 mls/hr TITRATE IV Last administered on at 23:21; Admin Dose 2.6 MLS/HR; Start 08/01/16 at 23:00 Acetaminophen (Tylenol Tab) 650 mg Q6H PRN GTB PAIN1-3/FEVER ABOVE 100; Start 08/02/16 at 15:00 Atorvastatin Calcium (Lipitor) 40 mg HS GTB Last administered on 08/08/16 20: 50; Admin Dose 40 MG; Start 08/02/16 at 21:00 Carvedilol (Coreg) 6.25 mg BID GTB ; Start 08/02/16 at 09:00; Status Future Hold Duloxetine HCl (Cymbalta) 90 mg DAILY GTB Last administered on 08/08/16 09:02 ; Admin Dose 90 MG; Start 08/02/16 at 09:00 Guaifenesin (Robitussin Liquid Cup) 100 mg Q4 PRN GTB COUGH; Start 08/02/16 at 09:00 Acetaminophen/ Hydrocodone Bitart ([place] (5/325)) 1 tab Q4 PRN GTB WSOB Last administered on 08/08/16at 09:01; Admin Dose 1 TAB; Start 08/02/16 at 09:00 Lactobacillus Acidoph/Bulgaricus (Floranex) 1 tab DAILY GTB Last administered on 08/08/16at 09:02; Admin Dose 1 TAB; Start 08/02/16 at 09:00 Lorazepam (Ativan) 1 mg Q6H PRN GTB ANXIETY Last administered on 08/08/16 21: 02; Admin Dose 1 MG; Start 08/02/16 at 09:00 Multivit/Ca Carb/ B Cmplx/FA/Prenat (Cheryl-Darcie) 1 tab DAILY GTB Last administered on 08/08/16 09:02; Admin Dose 1 TAB; Start 08/02/16 at 09:00 Polyethylene Glycol (Miralax) 17 gm DAILY GTB Last administered on 08/07/16at 09:45; Admin Dose 17 GM; Start 08/02/16 at 09:00 Aspirin (Aspirin) 81 mg DAILY GTB Last administered on 08/08/16 09:01; Admin Dose 81 MG; Start 08/02/16 at 09:00 Lansoprazole 30 mg 30 mg DAILY@06 GTB Last administered on 08/09/16 05:17; Admin Dose 30 MG; Start 08/02/16 at 10:00 Vancomycin HCl (Vancocin) 250 ml @ 125 mls/hr Q96H IVPB Last administered on 08/07/16at 14:14; Admin Dose 125 MLS/HR; Start 08/03/16 at 14:00 Diagnostic Test (Pha) (Accucheck) 1 ea Q1H XX Last administered on 08/09/16at 07:51; Admin Dose 1 EA; Start 08/05/16 at 09:00 Dextrose (D50w Syringe) 25 ml Q15M PRN IV Till BS 80 mg/dL or above x2; Start 08/05/16 at 08:30 Dextrose (D50w Syringe) 50 ml Q15M PRN IV Till BS 80 mg/dL or above x2; Start 08/05/16 at 08:30 Moxifloxacin HCl (Vigamox) 1 drop TID BOTH EYES Last administered on at 20:50; Admin Dose 1 DROP; Start 08/05/16 at 13:00; Stop 08/12/16 at 13:00 Methylprednisolone Sodium Succinate 40 mg 40 mg DAILY IV Last administered on 08/08/16at 09:01; Admin Dose 40 MG; Start 08/06/16 at 09:00 Phenylephrine HCl 80 mg/Dextrose 250 ml @ 18.75 mls/ hr TITRATE IV ; Start at 12:30 Norepinephrine 16 mg/Dextrose 500 ml @ 1.87 mls/hr TITRATE IV Last administered on 08/05/16at 14:51; Admin Dose 22.5 MLS/HR; Start 08/05/16 at 12: 00 Imipenem/ Cilastatin Sodium (Primaxin 500 Mg/ 100 ml (Pmx)) 100 ml @ 100 mls/ hr Q24H IVPB Last administered on 08/08/16at 20:49; Admin Dose 100 MLS/HR; Start 08/05/16 at 21:00 Vancomycin HCl (Vancomycin Oral Syringe) 125 mg Q6 NGT Last administered on at 05:17; Admin Dose 125 MG; Start 08/06/16 at 18:00 Sildenafil Citrate (Revatio) 20 mg BID PO Last administered on 08/08/16at 20:50 ; Admin Dose 20 MG; Start 08/08/16 at 21:00 Warfarin Sodium (Coumadin) 2.5 mg DAILY@17 GTB Last administered on 08/08/16at 17:41; Admin Dose 2.5 MG; Start 08/08/16 at 17:00 Insulin Glargine (Lantus) 15 unit HS SC Last administered on 08/09/16 01:04; Admin Dose 15 UNIT; Start 08/09/16 at 00:00 Lorazepam (Ativan) 0.5 mg Q4 PRN IV ANXIETY Last administered on 08/09/16at 01: 29; Admin Dose 0.5 MG; Start 08/09/16 at 00:00 JESSICA ROSARIO MD Aug 09, 2016 08:34
[2016-08-09] MEDS: POLYETHYLENE GLYCOL 17 GM PACKET GTB SCH (09:00)
[2016-08-09] MEDS: METHYLPREDNISOLONE 40 MG INJ IV SCH (09:38)
[2016-08-09] MEDS: SILDENAFIL 20 MG TAB PO SCH ×2 (09:38→21:24)
[2016-08-09] MEDS: MULTIVIT/CA CARB/B CMPLX/FA TAB GTB SCH (09:38)
[2016-08-09] MEDS: LACTOBACILLUS CHEW TAB GTB SCH (09:38)
[2016-08-09] MEDS: ASPIRIN 81 MG TAB GTB SCH (09:39)
[2016-08-09] MEDS: MOXIFLOXACIN 0.5% 3 ML OPH BOTH EYES SCH ×3 (09:39→21:23)
[2016-08-09] MEDS: FLUTICASONE 0.05% 16 GM NAS SPRAY NASAL SCH ×2 (09:39→21:24)
[2016-08-09] MEDS: DULOXETINE 30 MG CAP DR GTB SCH (09:54)
--- NOTE | 2016-08-09 13:47 | CONS ---
Date/Time of Note Date/Time of Note DATE: 08/09/16 TIME: 13:45 Assessment/Plan Assessment/Plan Additional Assessment/Plan Respiratory failure status post intubation Sepsis Minimally elevated troponin Partial right internal jugular DVT Diastolic congestive heart failure End-stage renal disease on hemodialysis CAD with history of PCI Diabetes Peripheral arterial disease with history of amputation Pulmonary hypertension -Patient still undergoing ventilatory weaning trials, having episodes of paroxysmal atrial tachycardia, given low blood pressure, would give digoxin at the current time. Once blood pressure able to tolerate, would start beta shivani. Consultation Date/Type/Reason Admit Date/Time Jul 26, 2016 at 01:55 Type of Consultation: cv Referring Provider: GRACIE KATHLEEN 24 HR Interval Summary Free Text/Dictation Patient seen and examined, not tolerating CPAP trials as per respiratory nursing staff Exam/Review of Systems Vital Signs Vitals Vital Signs Date Time Temp Pulse Resp B/P Pulse Ox O2 Delivery O2 Flow Rate FiO2 08/09/16 12:00 122 08/09/16 08:59 24 96 40 08/09/16 05:30 99/73 08/09/16 05:00 Mechanical Ventilator 08/09/16 04:00 98.3 Intake and Output 08/08/16 08/08/16 08/09/16 15:00 23:00 07:00 Intake Total 344 ml 422.5 ml 417.5 ml Output Total 0 ml 0 ml 0 ml Balance 344 ml 422.5 ml 417.5 ml Exam Follows commands, no apparent distress Constitutional: alert Head: normocephalic ENMT: intubated Respiratory: other (course breath sounds bilaterally, no wheezing) Cardiovascular: other (S1-S2 heard), regular rate and rhythm Gastrointestinal: bowel sounds, non-tender, soft Extremities: edema (trace) Results Result Diagram: 08/09/16 0645 08/09/16 0645 Results 24 hrs Laboratory Tests Test 08/08/16 14:36 08/08/16 15:16 08/08/16 16:22 08/08/16 17:40 Bedside Glucose 129 150 113 106 Test 08/08/16 18:54 08/08/16 20:33 08/08/16 21:35 08/08/16 22:22 Bedside Glucose 137 112 104 121 Test 08/08/16 23:23 08/09/16 00:47 08/09/16 01:28 08/09/16 02:20 Bedside Glucose 157 112 97 101 Test 08/09/16 03:25 08/09/16 04:23 08/09/16 05:12 08/09/16 06:27 Bedside Glucose 132 117 115 121 Test 08/09/16 06:45 08/09/16 07:50 08/09/16 08:16 08/09/16 08:38 Alanine Aminotransferase (ALT/SGPT) 54 Albumin 3.3 Albumin/Globulin Ratio 1.10 Alkaline Phosphatase 142 H Anion Gap 20 H Aspartate Amino Transf (AST/SGOT) 66 H Basophils # 0.1 Basophils % 0.6 Blood Morphology Comment Blood Urea Nitrogen 88 H Calcium Level 8.2 L Carbon Dioxide Level 23 Chloride Level 101 Creatinine 4.01 H Direct Bilirubin 0.00 Eosinophils # 0.0 Eosinophils % 0.1 Globulin 3.00 Glucose Level 118 Hematocrit 32.5 L Hemoglobin 10.8 L Indirect Bilirubin 0.1 Lymphocytes # 0.9 Lymphocytes % 3.8 L Mean Corpuscular Hemoglobin 31.8 Mean Corpuscular Hemoglobin Concent 33.1 Mean Corpuscular Volume 96.2 Mean Platelet Volume 8.0 Monocytes # 1.1 H Monocytes % 4.9 Neutrophils # 20.7 H Neutrophils % 90.6 H Nucleated Red Blood Cells # 0.0 Nucleated Red Blood Cells % 0.0 Phosphorus Level 3.2 Platelet Count 182 # Potassium Level 3.4 L Prealbumin 12.2 L Red Blood Count 3.38 L Red Cell Distribution Width 14.7 H Sodium Level 141 Total Bilirubin 0.1 L Total Protein 6.3 White Blood Count 22.8 #H Bedside Glucose 143 161 Lab Scanned Report REFERENCE LAB Test 08/09/16 09:37 08/09/16 12:40 Bedside Glucose 155 142 Medications Medications Current Medications Fluticasone Propionate (Flonase 0.05% Nasal) 1 spray BID NASAL Last administered on 08/09/16at 09:39; Admin Dose 1 SPRAY; Start 07/26/16 at 10:00 Epoetin [place] (Epogen (Esrd)) 10,000 units MoWeFr@17 SC Last administered on at 17:42; Admin Dose 10,000 UNITS; Start 07/27/16 at 17:00 Hydralazine HCl 10 mg 10 mg Q6H PRN IV ELEVATED BLOOD PRESSURE Last administered on 07/29/16at 12:59; Admin Dose 10 MG; Start 07/29/16 at 13:00 Midazolam HCl 50 mg/Dextrose 50 ml @ 1 mls/hr TITRATE IV Last administered on 08/05/16at 22:01; Admin Dose 5 MLS/HR; Start 08/01/16 at 23:00 Fentanyl/Dextrose (D5W) 100 ml @ 2.6 mls/hr TITRATE IV Last administered on at 23:21; Admin Dose 2.6 MLS/HR; Start 08/01/16 at 23:00 Acetaminophen (Tylenol Tab) 650 mg Q6H PRN GTB PAIN1-3/FEVER ABOVE 100; Start 08/02/16 at 15:00 Atorvastatin Calcium (Lipitor) 40 mg HS GTB Last administered on 08/08/16at 20: 50; Admin Dose 40 MG; Start 08/02/16 at 21:00 Carvedilol (Coreg) 6.25 mg BID GTB ; Start 08/02/16 at 09:00; Status Future Hold Duloxetine HCl (Cymbalta) 90 mg DAILY GTB Last administered on 08/09/16at 09:54 ; Admin Dose 90 MG; Start 08/02/16 at 09:00 Guaifenesin (Robitussin Liquid Cup) 100 mg Q4 PRN GTB COUGH; Start 08/02/16 at 09:00 Acetaminophen/ Hydrocodone Bitart ([place] (5/325)) 1 tab Q4 PRN GTB WSOB Last administered on 08/08/16at 09:01; Admin Dose 1 TAB; Start 08/02/16 at 09:00 Lactobacillus Acidoph/Bulgaricus (Floranex) 1 tab DAILY GTB Last administered on 08/09/16at 09:38; Admin Dose 1 TAB; Start 08/02/16 at 09:00 Lorazepam (Ativan) 1 mg Q6H PRN GTB ANXIETY Last administered on 08/08/16at 21: 02; Admin Dose 1 MG; Start 08/02/16 at 09:00 Multivit/Ca Carb/ B Cmplx/FA/Prenat (Cheryl-Darcie) 1 tab DAILY GTB Last administered on 08/09/16at 09:38; Admin Dose 1 TAB; Start 08/02/16 at 09:00 Polyethylene Glycol (Miralax) 17 gm DAILY GTB Last administered on 08/09/16 09:00; Admin Dose 17 GM; Start 08/02/16 at 09:00 Aspirin (Aspirin) 81 mg DAILY GTB Last administered on 08/09/16 09:39; Admin Dose 81 MG; Start 08/02/16 at 09:00 Lansoprazole 30 mg 30 mg DAILY@06 GTB Last administered on 08/09/16 05:17; Admin Dose 30 MG; Start 08/02/16 at 10:00 Vancomycin HCl (Vancocin) 250 ml @ 125 mls/hr Q96H IVPB Last administered on 08/07/16 14:14; Admin Dose 125 MLS/HR; Start 08/03/16 at 14:00 Diagnostic Test (Pha) (Accucheck) 1 ea Q1H XX Last administered on 08/09/16 07:51; Admin Dose 1 EA; Start 08/05/16 at 09:00 Dextrose (D50w Syringe) 25 ml Q15M PRN IV Till BS 80 mg/dL or above x2; Start 08/05/16 at 08:30 Dextrose (D50w Syringe) 50 ml Q15M PRN IV Till BS 80 mg/dL or above x2; Start 08/05/16 at 08:30 Moxifloxacin HCl 1 drop 1 drop TID BOTH EYES Last administered on 08/09/16at 09 :39; Admin Dose 1 DROP; Start 08/05/16 at 13:00; Stop 08/12/16 at 13:00 Phenylephrine HCl 80 mg/Dextrose 250 ml @ 18.75 mls/ hr TITRATE IV ; Start at 12:30 Norepinephrine 16 mg/Dextrose 500 ml @ 1.87 mls/hr TITRATE IV Last administered on 08/05/16at 14:51; Admin Dose 22.5 MLS/HR; Start 08/05/16 at 12: 00 Imipenem/ Cilastatin Sodium (Primaxin 500 Mg/ 100 ml (Pmx)) 100 ml @ 100 mls/ hr Q24H IVPB Last administered on 08/08/16at 20:49; Admin Dose 100 MLS/HR; Start 08/05/16 at 21:00 Vancomycin HCl (Vancomycin Oral Syringe) 125 mg Q6 NGT Last administered on 13:15; Admin Dose 125 MG; Start 12/19/16 at 18:00 Sildenafil Citrate (Revatio) 20 mg BID PO Last administered on 08/09/16at 09:38 ; Admin Dose 20 MG; Start 08/08/16 at 21:00 Warfarin Sodium (Coumadin) 2.5 mg DAILY@17 GTB Last administered on 08/08/16at 17:41; Admin Dose 2.5 MG; Start 08/08/16 at 17:00 Insulin Glargine (Lantus) 15 unit HS SC Last administered on 08/09/16at 01:04; Admin Dose 15 UNIT; Start 08/09/16 at 00:00 Lorazepam (Ativan) 0.5 mg Q4 PRN IV ANXIETY Last administered on 08/09/16at 10: 51; Admin Dose 0.5 MG; Start 08/09/16 at 00:00 Methylprednisolone Sodium Succinate (Solu-Medrol) 20 mg DAILY IV ; Start at 09:00 Solo Leon DO Aug 09, 2016 13:47
[2016-08-09] MEDS ORDERED: DIGOXIN 500 MCG INJ IV ONE (14:00)
[2016-08-09] MEDS: WARFARIN 2.5 MG TAB GTB SCH (18:03)
--- NOTE | 2016-08-09 18:38 | PN ---
Date/Time of Note Date/Time of Note DATE: 08/09/16 TIME: 18:32 Assessment/Plan VTE Prophylaxis VTE Prophylaxis Intervention: other Lines/Catheters IV Catheter Type (from Nrs): Mid Line Urinary Cath still in place: No Assessment/Plan Assessment/Plan 1. Acute respiratory failure- sp intubation on 07/31 - per pulmonary, continue ventilator support, bronchodilators, steroids. 2. Possible pneumonia- right lower lobe infiltrate- possible aspiration pneumonia per Pulmonary. Sputum grew 08/02 rare jerry albicans - per Dr. Reardon in infectious disease consultation. 3. Early sepsis d/t C diff - recurrent leukocytosis improving and low grade fever resolving. 4. End-stage renal disease hemodialysis dependent. - on HD - per Dr. Bassett in nephrology consultation 5. Diastolic congestive heart failure. Continue to remove fluid was hemodialysis. 6. Partial right internal jugular DVT. Continue Coumadin. Continue daily PT PTT. 7. C diff stool - per ID - on po Vanco - contact isolation 8. RUE cellulitis with axillary/cephalic venous thrombosis - PER id 9. Hyperglycemia- GLYCEMIC Control- stable 10. Toxic metabolic encephalopathy 11. Osteoporosis. 12. Pulmonary hypertension. Continue sildenafil. 13. Coronary artery disease with history of PCI. 14. Depression. Continue Cymbalta 15. History of left hip fracture, treated conservatively. Protonix for peptic ulcer disease prophylaxis Further recommendations based on clinical course. Total critical time spend = 30 mins Plan of care discussed with Dr. Miramontes. Exam/Review of Systems Vital Signs Vitals Vital Signs Date Time Temp Pulse Resp B/P Pulse Ox O2 Delivery O2 Flow Rate FiO2 08/09/16 18:00 119 27 123/77 98 08/09/16 17:00 Mechanical Ventilator 08/09/16 16:51 40 08/09/16 16:00 98.7 Intake and Output 08/08/16 08/08/16 08/09/16 14:59 22:59 06:59 Intake Total 344 ml 422.5 ml 447.5 ml Output Total 0 ml 0 ml 0 ml Balance 344 ml 422.5 ml 447.5 ml Exam Psych: nl mood/affect ENMT: nl external ears & nose Respiratory: diminished breath sounds Cardiovascular: nl pulses Gastrointestinal: non-tender, soft Musculoskeletal: other Extremities: other Neurological: lethargic Lymph: nontender Results Result Diagram: 08/09/16 0645 08/09/16 0645 Results 24 hrs Laboratory Tests Test 08/08/16 18:54 08/08/16 20:33 08/08/16 21:35 08/08/16 22:22 Bedside Glucose 137 112 104 121 Test 08/08/16 23:23 08/09/16 00:47 08/09/16 01:28 08/09/16 02:20 Bedside Glucose 157 112 97 101 Test 08/09/16 03:25 08/09/16 04:23 08/09/16 05:12 08/09/16 06:27 Bedside Glucose 132 117 115 121 Test 08/09/16 06:45 08/09/16 07:50 08/09/16 08:16 08/09/16 08:38 Alanine Aminotransferase (ALT/SGPT) 54 Albumin 3.3 Albumin/Globulin Ratio 1.10 Alkaline Phosphatase 142 H Anion Gap 20 H Aspartate Amino Transf (AST/SGOT) 66 H Basophils # 0.1 Basophils % 0.6 Blood Morphology Comment Blood Urea Nitrogen 88 H Calcium Level 8.2 L Carbon Dioxide Level 23 Chloride Level 101 Creatinine 4.01 H Direct Bilirubin 0.00 Eosinophils # 0.0 Eosinophils % 0.1 Globulin 3.00 Glucose Level 118 Hematocrit 32.5 L Hemoglobin 10.8 L Indirect Bilirubin 0.1 Lymphocytes # 0.9 Lymphocytes % 3.8 L Mean Corpuscular Hemoglobin 31.8 Mean Corpuscular Hemoglobin Concent 33.1 Mean Corpuscular Volume 96.2 Mean Platelet Volume 8.0 Monocytes # 1.1 H Monocytes % 4.9 Neutrophils # 20.7 H Neutrophils % 90.6 H Nucleated Red Blood Cells # 0.0 Nucleated Red Blood Cells % 0.0 Phosphorus Level 3.2 Platelet Count 182 # Potassium Level 3.4 L Prealbumin 12.2 L Red Blood Count 3.38 L Red Cell Distribution Width 14.7 H Sodium Level 141 Total Bilirubin 0.1 L Total Protein 6.3 White Blood Count 22.8 #H Bedside Glucose 143 161 Lab Scanned Report REFERENCE LAB Test 08/09/16 09:37 08/09/16 12:40 08/09/16 14:02 08/09/16 16:40 Bedside Glucose 155 142 123 178 Test 08/09/16 17:56 Bedside Glucose 147 Medications Medications Current Medications Fluticasone Propionate (Flonase 0.05% Nasal) 1 spray BID NASAL Last administered on 08/09/16 09:39; Admin Dose 1 SPRAY; Start 07/26/16 at 10:00 Epoetin [place] (Epogen (Esrd)) 10,000 units MoWeFr@17 SC Last administered on at 17:42; Admin Dose 10,000 UNITS; Start 07/27/16 at 17:00 Hydralazine HCl 10 mg 10 mg Q6H PRN IV ELEVATED BLOOD PRESSURE Last administered on 07/29/16at 12:59; Admin Dose 10 MG; Start 07/29/16 at 13:00 Midazolam HCl 50 mg/Dextrose 50 ml @ 1 mls/hr TITRATE IV Last administered on 08/05/16at 22:01; Admin Dose 5 MLS/HR; Start 08/01/16 at 23:00 Fentanyl/Dextrose (D5W) 100 ml @ 2.6 mls/hr TITRATE IV Last administered on at 23:21; Admin Dose 2.6 MLS/HR; Start 08/01/16 at 23:00 Acetaminophen (Tylenol Tab) 650 mg Q6H PRN GTB PAIN1-3/FEVER ABOVE 100; Start 08/02/16 at 15:00 Atorvastatin Calcium (Lipitor) 40 mg HS GTB Last administered on 08/08/16at 20: 50; Admin Dose 40 MG; Start 08/02/16 at 21:00 Carvedilol (Coreg) 6.25 mg BID GTB ; Start 08/02/16 at 09:00; Status Future Hold Duloxetine HCl (Cymbalta) 90 mg DAILY GTB Last administered on 08/09/16at 09:54 ; Admin Dose 90 MG; Start 08/02/16 at 09:00 Guaifenesin (Robitussin Liquid Cup) 100 mg Q4 PRN GTB COUGH; Start 08/02/16 at 09:00 Acetaminophen/ Hydrocodone Bitart ([place] (5/325)) 1 tab Q4 PRN GTB WSOB Last administered on 08/08/16at 09:01; Admin Dose 1 TAB; Start 08/02/16 at 09:00 Lactobacillus Acidoph/Bulgaricus (Floranex) 1 tab DAILY GTB Last administered on 08/09/16 09:38; Admin Dose 1 TAB; Start 08/02/16 at 09:00 Lorazepam (Ativan) 1 mg Q6H PRN GTB ANXIETY Last administered on 08/08/16at 21: 02; Admin Dose 1 MG; Start 08/02/16 at 09:00 Multivit/Ca Carb/ B Cmplx/FA/Prenat (Cheryl-Darcie) 1 tab DAILY GTB Last administered on 08/09/16at 09:38; Admin Dose 1 TAB; Start 08/02/16 at 09:00 Polyethylene Glycol (Miralax) 17 gm DAILY GTB Last administered on 08/09/16at 09:00; Admin Dose 17 GM; Start 08/02/16 at 09:00 Aspirin (Aspirin) 81 mg DAILY GTB Last administered on 08/09/16 09:39; Admin Dose 81 MG; Start 08/02/16 at 09:00 Lansoprazole 30 mg 30 mg DAILY@06 GTB Last administered on 08/09/16 05:17; Admin Dose 30 MG; Start 08/02/16 at 10:00 Vancomycin HCl (Vancocin) 250 ml @ 125 mls/hr Q96H IVPB Last administered on 08/07/16at 14:14; Admin Dose 125 MLS/HR; Start 08/03/16 at 14:00 Diagnostic Test (Pha) (Accucheck) 1 ea Q1H XX Last administered on 08/09/16at 07:51; Admin Dose 1 EA; Start 08/05/16 at 09:00 Dextrose (D50w Syringe) 25 ml Q15M PRN IV Till BS 80 mg/dL or above x2; Start 08/05/16 at 08:30 Dextrose (D50w Syringe) 50 ml Q15M PRN IV Till BS 80 mg/dL or above x2; Start 08/05/16 at 08:30 Moxifloxacin HCl 1 drop 1 drop TID BOTH EYES Last administered on 08/09/16at 13 :47; Admin Dose 1 DROP; Start 08/05/16 at 13:00; Stop 08/12/16 at 13:00 Phenylephrine HCl 80 mg/Dextrose 250 ml @ 18.75 mls/ hr TITRATE IV ; Start at 12:30 Norepinephrine 16 mg/Dextrose 500 ml @ 1.87 mls/hr TITRATE IV Last administered on 08/05/16at 14:51; Admin Dose 22.5 MLS/HR; Start 08/05/16 at 12: 00 Imipenem/ Cilastatin Sodium (Primaxin 500 Mg/ 100 ml (Pmx)) 100 ml @ 100 mls/ hr Q24H IVPB Last administered on 08/08/16at 20:49; Admin Dose 100 MLS/HR; Start 08/05/16 at 21:00 Vancomycin HCl (Vancomycin Oral Syringe) 125 mg Q6 NGT Last administered on at 18:23; Admin Dose 125 MG; Start 08/06/16 at 18:00 Sildenafil Citrate (Revatio) 20 mg BID PO Last administered on 08/09/16at 09:38 ; Admin Dose 20 MG; Start 08/08/16 at 21:00 Warfarin Sodium (Coumadin) 2.5 mg DAILY@17 GTB Last administered on 08/09/16at 18:03; Admin Dose 2.5 MG; Start 08/08/16 at 17:00 Insulin Glargine (Lantus) 15 unit HS SC Last administered on 08/09/16at 01:04; Admin Dose 15 UNIT; Start 08/09/16 at 00:00 Lorazepam (Ativan) 0.5 mg Q4 PRN IV ANXIETY Last administered on 08/09/16at 10: 51; Admin Dose 0.5 MG; Start 08/09/16 at 00:00 Methylprednisolone Sodium Succinate (Solu-Medrol) 20 mg DAILY IV ; Start at 09:00 Digoxin (Digoxin) 0.125 mg DAILY@13 PO ; Start 08/10/16 at 13:00 GRACIE KATHLEEN Aug 09, 2016 18:38
[2016-08-09] MEDS: IMIPENEM-CILAST 500MG IV (PMX) 100 ML IVPB SCH (21:21)
[2016-08-09] MEDS: ATORVASTATIN 40 MG TAB GTB SCH (21:23)
--- NOTE | 2016-08-09 22:24 | CONS ---
JERICHO CRABTREE [employer] ACCOUNTANT 08/09/16 2211: Date/Time of Note Date/Time of Note DATE: 08/09/16 TIME: 22:00 Assessment/Plan Assessment/Plan Chief Complaint/Hosp Course - acute hypoxemic respiratory failure - intubated 07/31 - Pulm edema, right lower lobe infiltrate, possible aspiration pneumonia per Pulmonary (Sputum grew 08/02 rare jerry albicans) - persistent hypotension after HD - s/p short term Levophed 08/02 (short term) and restarted on Levophed 08/04/16-08/06 after HD; on steroid trial. - Sepsis d/t C diff colitis - leukocytosis worsened today and with persistent tachycardia - C diff colitis - intermittent fever - recent RUE cellulitis complicated by axillary/cephalic venous thrombosis - toxic metabolic encephalopathy - ESRD on HD - hyperglycemia d/t steroids - on insulin gtt - Diastolic CHF - CAD with Hx PCI - paroxysmal atrial tachycardia - mild hypertroponinemia in setting of CARLEY on CKD - Old partial DVT of the right internal jugular vein. - coagulopathy d/t warfarin - PAD with Hx Left BKA - Parkinson's - PCN allergic recommendations: - repeat blood culture x2 and respiratory culture - continue IV vancomycin (07/29/16-) and Primaxin 500 mg IV q24h (08/05/16-); (s /p aztreonam 07/29-08/05) - continue PO vanco via OGT (07/1916-) - trend WBC (on low dose steroid) - Above d/w Dr. Hammer - Critical care time spent: 35 minutes Problems: Consultation Date/Type/Reason Admit Date/Time Jul 26, 2016 at 01:55 Initial Consult Date 07/29/16 Type of Consultation: Infectious Disease Reason for Consultation Antibiotic Management Referring Provider: GRACIE KATHLEEN 24 HR Interval Summary Free Text/Dictation Pt more alert today, off sedation and only on insulin drip per RN Ali. Failed weaning trial this AM. Having episodes of paroxysmal atrial tachycardia. Subjective hx not possible: pt non-verbal, pt critical status Exam/Review of Systems Vital Signs Vitals Vital Signs Date Time Temp Pulse Resp B/P Pulse Ox O2 Delivery O2 Flow Rate FiO2 08/09/16 20:00 122 08/09/16 18:00 27 123/77 98 08/09/16 17:00 Mechanical Ventilator 08/09/16 16:51 40 08/09/16 16:00 98.7 Intake and Output 08/08/16 08/08/16 08/09/16 15:00 23:00 07:00 Intake Total 344 ml 422.5 ml 417.5 ml Output Total 0 ml 0 ml 0 ml Balance 344 ml 422.5 ml 417.5 ml Exam Constitutional: frail, other (orally intubated) Head: atraumatic, normocephalic ENMT: mucose pink and dry. No thrush noted. Neck: supple, no bruits Respiratory: Few coarse breath sounds. No wheezing Cardiovascular: regular rhythm, tachycardic, normal S1 and S2 Gastrointestinal: soft, bowel sounds present, other (OGT with TF; Lower abdominal ecchymosis spreading horizontally at pannus edge; rectal tube intact with liquid brown stool). Extremities: edema (trivial on RLE), other (LLE BKA noted; LUE AVF with + bruit /thrill; R foot cool to touch and DP difficult to palpate; left middle finger partial amputation noted) Neurological: Lethargic, withdraws to pain, selectively nods to simple questions Skin: ecchymosis (few scattered on RLE), nl turgor, other (RUE PICC c/d/i) Results Result Diagram: 08/09/16 0645 08/09/16 0645 Results 24 hrs Laboratory Tests Test 08/08/16 22:22 08/08/16 23:23 08/09/16 00:47 08/09/16 01:28 Bedside Glucose 121 157 112 97 Test 08/09/16 02:20 08/09/16 03:25 08/09/16 04:23 08/09/16 05:12 Bedside Glucose 101 132 117 115 Test 08/09/16 06:27 08/09/16 06:45 08/09/16 07:50 08/09/16 08:16 Bedside Glucose 121 143 Alanine Aminotransferase (ALT/SGPT) 54 Albumin 3.3 Albumin/Globulin Ratio 1.10 Alkaline Phosphatase 142 H Anion Gap 20 H Aspartate Amino Transf (AST/SGOT) 66 H Basophils # 0.1 Basophils % 0.6 Blood Morphology Comment Blood Urea Nitrogen 88 H Calcium Level 8.2 L Carbon Dioxide Level 23 Chloride Level 101 Creatinine 4.01 H Direct Bilirubin 0.00 Eosinophils # 0.0 Eosinophils % 0.1 Globulin 3.00 Glucose Level 118 Hematocrit 32.5 L Hemoglobin 10.8 L Indirect Bilirubin 0.1 Lymphocytes # 0.9 Lymphocytes % 3.8 L Mean Corpuscular Hemoglobin 31.8 Mean Corpuscular Hemoglobin Concent 33.1 Mean Corpuscular Volume 96.2 Mean Platelet Volume 8.0 Monocytes # 1.1 H Monocytes % 4.9 Neutrophils # 20.7 H Neutrophils % 90.6 H Nucleated Red Blood Cells # 0.0 Nucleated Red Blood Cells % 0.0 Phosphorus Level 3.2 Platelet Count 182 # Potassium Level 3.4 L Prealbumin 12.2 L Red Blood Count 3.38 L Red Cell Distribution Width 14.7 H Sodium Level 141 Total Bilirubin 0.1 L Total Protein 6.3 White Blood Count 22.8 #H Lab Scanned Report REFERENCE LAB Test 08/09/16 08:38 08/09/16 09:37 08/09/16 12:40 08/09/16 14:02 Bedside Glucose 161 155 142 123 Test 08/09/16 16:40 08/09/16 17:56 08/09/16 19:54 08/09/16 21:25 Bedside Glucose 178 147 145 121 C diff 08/06/16: C DIFFICILE DNA AMPLIFICATION Final CYTOTOXIGENIC C DIFFICILE POSITIVE (Ref Range Neg) Sputum cx 08/02/16: GRAM STAIN Final POLYMORPH. LEUKOCYTE RARE . NO ORGANISM SEEN RESPIRATORY CULTURE Final Organism 1 JERRY ALBICANS QUANTITY RARE Organism 2 NORMAL RESPIRATORY MEKHI QUANTITY SCANT GROWTH Medications Medications Current Medications Fluticasone Propionate (Flonase 0.05% Nasal) 1 spray BID NASAL Last administered on 08/09/16at 21:24; Admin Dose 1 SPRAY; Start 07/26/16 at 10:00 Epoetin [place] (Epogen (Esrd)) 10,000 units MoWeFr@17 SC Last administered on at 17:42; Admin Dose 10,000 UNITS; Start 07/27/16 at 17:00 Hydralazine HCl 10 mg 10 mg Q6H PRN IV ELEVATED BLOOD PRESSURE Last administered on 07/29/16at 12:59; Admin Dose 10 MG; Start 07/29/16 at 13:00 Midazolam HCl 50 mg/Dextrose 50 ml @ 1 mls/hr TITRATE IV Last administered on 08/05/16at 22:01; Admin Dose 5 MLS/HR; Start 08/01/16 at 23:00 Fentanyl/Dextrose (D5W) 100 ml @ 2.6 mls/hr TITRATE IV Last administered on at 23:21; Admin Dose 2.6 MLS/HR; Start 08/01/16 at 23:00 Acetaminophen (Tylenol Tab) 650 mg Q6H PRN GTB PAIN1-3/FEVER ABOVE 100; Start 08/02/16 at 15:00 Atorvastatin Calcium (Lipitor) 40 mg HS GTB Last administered on 08/09/16at 21: 23; Admin Dose 40 MG; Start 08/02/16 at 21:00 Carvedilol (Coreg) 6.25 mg BID GTB ; Start 08/02/16 at 09:00; Status Future Hold Duloxetine HCl (Cymbalta) 90 mg DAILY GTB Last administered on 08/09/16at 09:54 ; Admin Dose 90 MG; Start 08/02/16 at 09:00 Guaifenesin (Robitussin Liquid Cup) 100 mg Q4 PRN GTB COUGH; Start 08/02/16 at 09:00 Acetaminophen/ Hydrocodone Bitart ([place] (5/325)) 1 tab Q4 PRN GTB WSOB Last administered on 08/08/16 09:01; Admin Dose 1 TAB; Start 08/02/16 at 09:00 Lactobacillus Acidoph/Bulgaricus (Floranex) 1 tab DAILY GTB Last administered on 08/09/16 09:38; Admin Dose 1 TAB; Start 08/02/16 at 09:00 Lorazepam (Ativan) 1 mg Q6H PRN GTB ANXIETY Last administered on 08/08/16at 21: 02; Admin Dose 1 MG; Start 08/02/16 at 09:00 Multivit/Ca Carb/ B Cmplx/FA/Prenat (Cheryl-Darcie) 1 tab DAILY GTB Last administered on 08/09/16 09:38; Admin Dose 1 TAB; Start 08/02/16 at 09:00 Polyethylene Glycol (Miralax) 17 gm DAILY GTB Last administered on 08/09/16 09:00; Admin Dose 17 GM; Start 08/02/16 at 09:00 Aspirin (Aspirin) 81 mg DAILY GTB Last administered on 08/09/16 09:39; Admin Dose 81 MG; Start 08/02/16 at 09:00 Lansoprazole 30 mg 30 mg DAILY@06 GTB Last administered on 08/09/16at 05:17; Admin Dose 30 MG; Start 08/02/16 at 10:00 Vancomycin HCl (Vancocin) 250 ml @ 125 mls/hr Q96H IVPB Last administered on 08/07/16at 14:14; Admin Dose 125 MLS/HR; Start 08/03/16 at 14:00 Diagnostic Test (Pha) (Accucheck) 1 ea Q1H XX Last administered on 08/09/16at 21:26; Admin Dose 1 EA; Start 08/05/16 at 09:00 Dextrose (D50w Syringe) 25 ml Q15M PRN IV Till BS 80 mg/dL or above x2; Start 08/05/16 at 08:30 Dextrose (D50w Syringe) 50 ml Q15M PRN IV Till BS 80 mg/dL or above x2; Start 08/05/16 at 08:30 Moxifloxacin HCl 1 drop 1 drop TID BOTH EYES Last administered on 08/09/16at 21 :23; Admin Dose 1 DROP; Start 08/05/16 at 13:00; Stop 08/12/16 at 13:00 Phenylephrine HCl 80 mg/Dextrose 250 ml @ 18.75 mls/ hr TITRATE IV ; Start at 12:30 Norepinephrine 16 mg/Dextrose 500 ml @ 1.87 mls/hr TITRATE IV Last administered on 08/05/16at 14:51; Admin Dose 22.5 MLS/HR; Start 08/05/16 at 12: 00 Imipenem/ Cilastatin Sodium (Primaxin 500 Mg/ 100 ml (Pmx)) 100 ml @ 100 mls/ hr Q24H IVPB Last administered on 08/09/16at 21:21; Admin Dose 100 MLS/HR; Start 08/05/16 at 21:00 Vancomycin HCl (Vancomycin Oral Syringe) 125 mg Q6 NGT Last administered on at 18:23; Admin Dose 125 MG; Start 08/06/16 at 18:00 Sildenafil Citrate (Revatio) 20 mg BID PO Last administered on 08/09/16at 21:24 ; Admin Dose 20 MG; Start 08/08/16 at 21:00 Warfarin Sodium (Coumadin) 2.5 mg DAILY@17 GTB Last administered on 08/09/16at 18:03; Admin Dose 2.5 MG; Start 08/08/16 at 17:00 Insulin Glargine (Lantus) 15 unit HS SC Last administered on 08/09/16at 21:29; Admin Dose 15 UNIT; Start 08/09/16 at 00:00 Lorazepam (Ativan) 0.5 mg Q4 PRN IV ANXIETY Last administered on 08/09/16at 10: 51; Admin Dose 0.5 MG; Start 08/09/16 at 00:00 Methylprednisolone Sodium Succinate (Solu-Medrol) 20 mg DAILY IV ; Start at 09:00 Digoxin (Digoxin) 0.125 mg DAILY@13 PO ; Start 08/10/16 at 13:00 Procedures Procedures CXR 08/06/16: FINDINGS: The endotracheal tube and nasogastric tube remain in satisfactory position. There is right perihilar air space disease, unchanged. The heart size is normal. There is no pleural effusion. There is no pneumothorax. IMPRESSION: 1. No change from 08/05/2016. CXR 08/05/16: 1. Endotracheal tube and nasogastric tube remain in good position. 2. Stable perihilar atelectasis/infiltrate. 3. No new infiltrate CT Brain 07/30/16: Examination is degraded due to patient motion artifact. No evidence of focal hematoma, mass effect, or definite acute ischemic changes. Moderate chronic-appearing microvascular ischemic changes of the supratentorial white matter. Venous study 07/26/16: Old partial DVT of the right internal jugular vein. BLE venous study 07/26/16: No evidence of deep vein thrombosis involving either lower extremity. VQ scan 07/26/16: 1. No evidence of deep vein thrombosis involving either lower extremity. SADIA HAMMER M.D. 08/11/16 0019: Assessment/Plan Assessment/Plan Additional Assessment/Plan I discussed the management with SARAN Crabtree and agree with above. Exam/Review of Systems Results Result Diagram: 08/09/16 0645 08/09/16 0645 JERICHO CRABTREE NP Aug 09, 2016 22:11 SADIA HAMMER M.D. Aug 11, 2016 00:19
[2016-08-09] MEDS: FENTAnyl 1,000 MCG in DEXTROSE 5% 80 ML IV SCH (23:09)
[2016-08-10] VITALS (39 sets, daily range): BP systolic 94–151; BP diastolic 54–105; PULSE 116–128; RESP 13–30
[2016-08-10] MEDS: MIDAZOLAM 50 MG in DEXTROSE 5% 40 ML IV SCH ×2 (00:41→12:17)
[2016-08-10] MEDS: ACCUCHECK XX SCH ×20 (00:46→23:00)
[2016-08-10] MEDS: ALBUTEROL HFA 8 GM INHALER INH SCH ×6 (02:07→21:00)
[2016-08-10] MEDS: LANSOPRAZOLE 30 MG CAP GTB SCH (05:11)
[2016-08-10 05:28] LABS: ALBUMIN 3.3 g/dl (3.3-4.9)
[2016-08-10 05:29] LABS: INR 1.33; POTASSIUM 3.9 mmol/L (3.5-5.1); PROTIME 16.6 Sec (12.2-14.2); PT RATIO 1.3
[2016-08-10 05:31] LABS: CREATININE 2.96 mg/dl (0.61-1.24)
[2016-08-10 05:32] LABS: ALBUMIN/GLOBULIN RATIO 1.06; BILIRUBIN,INDIRECT 0.2 mg/dl (0-1.1); BILIRUBIN,TOTAL 0.2 mg/dl (0.2-1.3); CALCIUM 8.3 mg/dl (8.4-10.2); TOTAL PROTEIN 6.4 g/dl (6.1-8.1)
[2016-08-10 05:33] LABS: HEMATOCRIT 33.9 % (42.0-52.0); HEMOGLOBIN 11.1 g/dl (14.0-18.0); MEAN CORPUSCULAR HGB CONC 32.6 g/dl (32.0-37.0); MEAN CORPUSCULAR VOLUME 98.2 fl (82.0-101.0); MEAN PLATELET VOLUME 8.3 fl (7.4-10.4); PLATELET COUNT 163 10^3/UL (140-440); RED BLOOD COUNT 3.45 10^6/ul (4.70-6.10); RED CELL DISTRIBUTION WIDTH 15.1 % (11.5-14.5); UNCORRECTED WBC 23.3 10^3/ul (4.8-10.8); WHITE BLOOD COUNT 23.3 10^3/ul (4.8-10.8)
[2016-08-10 05:45] LABS: CONDITION 1; LH ANALYZER COMMENTS 1; SUSPECT 1
[2016-08-10] MEDS: VANCOMYCIN HCL 250 MG/5ML POSYG NGT SCH ×3 (05:45→17:24)
[2016-08-10 06:02] LABS: AADO2 Arterial 173.2 mmHg (7.0-24.0); Allen Test ACCEPTAB; Arterial Base Excess 3.6 mmol/L (-3.0-3); Arterial COHb 0.3 % (0.0-3.0); Arterial MetHb 0.2 % (0.0-1.5); MODE VENT - AC
[2016-08-10] MEDS: INSULIN REGULAR, HUMAN 100 UNIT in SOD CHLORIDE 0.9% 99 ML IV SCH ×2 (07:44)
--- NOTE | 2016-08-10 07:56 | RADRPT ---
PROCEDURE: XR Chest 1 View. CLINICAL INDICATION: Shortness of breath TECHNIQUE: AP view of the chest were obtained. COMPARISON: August 07, 2016 FINDINGS: The cardiomediastinal silhouette is within normal limits. Endotracheal and nasogastric tubes are sta ble and appear in grossly appropriate location. The lungs are hypoinflated. Scattered atelectasis is noted in the left lower lobe. Perihilar right upper lobe infiltrates are stable. Atelectasis in the right lower lobe is observed. Osseous structures are intact. IMPRESSION: Hypoinflated lungs with atelectasis in the bilateral lower lobes. Stable perihilar infiltrates in the right upper lobe. RPTAT: AA .Ishmael Melchor MD, Date Time Electronically viewed and signed by .Ishmael Melchor MD, on 08/10/2016 07:56 .P/
[2016-08-10] MEDS: LACTOBACILLUS CHEW TAB GTB SCH (08:16)
[2016-08-10] MEDS: ASPIRIN 81 MG TAB GTB SCH (08:16)
[2016-08-10] MEDS: MULTIVIT/CA CARB/B CMPLX/FA TAB GTB SCH (08:16)
[2016-08-10] MEDS: SILDENAFIL 20 MG TAB PO SCH ×2 (08:16→22:00)
[2016-08-10] MEDS: DULOXETINE 30 MG CAP DR GTB SCH (08:16)
[2016-08-10] MEDS: POLYETHYLENE GLYCOL 17 GM PACKET GTB SCH (08:17)
[2016-08-10] MEDS: MOXIFLOXACIN 0.5% 3 ML OPH BOTH EYES SCH ×3 (08:17→22:56)
[2016-08-10] MEDS: METHYLPREDNISOLONE 40 MG INJ IV SCH (08:17)
[2016-08-10] MEDS: FLUTICASONE 0.05% 16 GM NAS SPRAY NASAL SCH ×2 (08:18→22:01)
--- NOTE | 2016-08-10 09:22 | CONS ---
Date/Time of Note Date/Time of Note DATE: 08/10/16 TIME: 09:20 Assessment/Plan Assessment/Plan Additional Assessment/Plan 1. Pul infiltrates, cxr noted, abx and ID note rev. 2. CKD, next HD tomm 3. DM, sugars are acceptable. 4. Steroid dose per ID and IM. 5. Family discussion re qual of life and code status ?? Consultation Date/Type/Reason Admit Date/Time Jul 26, 2016 at 01:55 Type of Consultation: Infectious Disease Referring Provider: GRACIE KATHLEEN 24 HR Interval Summary Subjective hx not possible: other (Intubated and sedated) Exam/Review of Systems Vital Signs Vitals Vital Signs Date Time Temp Pulse Resp B/P Pulse Ox O2 Delivery O2 Flow Rate FiO2 08/10/16 08:00 50 08/10/16 07:00 99.6 116 30 116/66 97 Mechanical Ventilator Intake and Output 08/09/16 08/09/16 08/10/16 15:00 23:00 07:00 Intake Total 893 ml 455 ml 511.1 ml Output Total 1500 ml 100 ml 50 ml Balance -607 ml 355 ml 461.1 ml Exam Neck: No jvd Respiratory: diminished breath sounds Cardiovascular: regular rate and rhythm Gastrointestinal: soft Extremities: edema (trace sacral edema) Results Result Diagram: 08/10/16 0455 08/10/16 0455 Results 24 hrs Laboratory Tests Test 08/09/16 09:37 08/09/16 12:40 08/09/16 14:02 08/09/16 16:40 Bedside Glucose 155 142 123 178 Test 08/09/16 17:56 08/09/16 19:54 08/09/16 21:25 08/09/16 23:02 Bedside Glucose 147 145 121 124 Test 08/10/16 00:45 08/10/16 03:13 08/10/16 04:55 08/10/16 05:00 Bedside Glucose 116 95 Alanine Aminotransferase (ALT/SGPT) 55 Albumin 3.3 Albumin/Globulin Ratio 1.06 Alkaline Phosphatase 148 H Anion Gap 20 H Aspartate Amino Transf (AST/SGOT) 72 H Basophils # Pending Basophils % Pending Blood Morphology Comment Blood Urea Nitrogen 58 #H Calcium Level 8.3 L Carbon Dioxide Level 27 Chloride Level 103 Creatinine 2.96 #H Direct Bilirubin 0.00 Eosinophils # Pending Eosinophils % Pending Globulin 3.10 Glucose Level 95 Hematocrit 33.9 L Hemoglobin 11.1 L INR International Normalized Ratio 1.33 Indirect Bilirubin 0.2 Lymphocytes # Pending Lymphocytes % Pending Mean Corpuscular Hemoglobin 32.0 Mean Corpuscular Hemoglobin Concent 32.6 Mean Corpuscular Volume 98.2 Mean Platelet Volume 8.3 Monocytes # Pending Monocytes % Pending Neutrophils # Pending Neutrophils % Pending Nucleated Red Blood Cells # Pending Nucleated Red Blood Cells % Pending Platelet Count 163 Potassium Level 3.9 Prothrombin Time 16.6 H Prothrombin Time Ratio 1.3 Red Blood Count 3.45 L Red Cell Distribution Width 15.1 H Sodium Level 146 H Total Bilirubin 0.2 Total Protein 6.4 White Blood Count 23.3 H Arterial Blood HCO3 27.0 H Arterial Blood Base Excess 3.6 H Arterial Blood Oxygen Saturation 93.5 L Jerod Test ACCEPTAB Arterial Blood Gas Puncture Site Right Radial Arterial Blood Carboxyhemoglobin 0.3 Arterial Blood Date Drawn 08/10/2016 5:00:23 AM Arterial Blood Methemoglobin 0.2 Arterial Blood pCO2 (Temp correct) 36.8 Arterial Blood pH (Temp corrected) 7.484 H Arterial Blood pO2 (Temp corrected) 69.7 L Blood Gas A-a O2 Differential 173.2 H Blood Gas Actual Respiration Rate 16 Blood Gas Inspiratory Pressure 19.0 Blood Gas Modality VENT - AC Blood Gas Notified Time 08/10/2016 6:01:53 AM Blood Gas Notified Whom HG Blood Gas Respiration Rate 16.0 Blood Gas Specimen Source Blood arterial Blood Gas Temperature 37.0 Blood Gas Tidal Volume 550.0 FiO2 40.0 Oxyhemoglobin Percent 93.0 Total Hemoglobin 12.0 Test 08/10/16 05:03 08/10/16 06:54 08/10/16 08:38 Bedside Glucose 97 107 119 Medications Medications Current Medications Fluticasone Propionate (Flonase 0.05% Nasal) 1 spray BID NASAL Last administered on 08/10/16at 08:18; Admin Dose 1 SPRAY; Start 07/26/16 at 10:00 Epoetin [place] (Epogen (Esrd)) 10,000 units MoWeFr@17 SC Last administered on at 17:42; Admin Dose 10,000 UNITS; Start 07/27/16 at 17:00 Hydralazine HCl 10 mg 10 mg Q6H PRN IV ELEVATED BLOOD PRESSURE Last administered on 07/29/16at 12:59; Admin Dose 10 MG; Start 07/29/16 at 13:00 Midazolam HCl 50 mg/Dextrose 50 ml @ 1 mls/hr TITRATE IV Last administered on 08/10/16at 00:41; Admin Dose 1 MLS/HR; Start 08/01/16 at 23:00 Fentanyl/Dextrose (D5W) 100 ml @ 2.6 mls/hr TITRATE IV Last administered on at 23:09; Admin Dose 2.6 MLS/HR; Start 08/01/16 at 23:00 Acetaminophen (Tylenol Tab) 650 mg Q6H PRN GTB PAIN1-3/FEVER ABOVE 100; Start 08/02/16 at 15:00 Atorvastatin Calcium (Lipitor) 40 mg HS GTB Last administered on 08/09/16at 21: 23; Admin Dose 40 MG; Start 08/02/16 at 21:00 Carvedilol (Coreg) 6.25 mg BID GTB ; Start 08/02/16 at 09:00; Status Future Hold Duloxetine HCl (Cymbalta) 90 mg DAILY GTB Last administered on 08/10/16at 08:16 ; Admin Dose 90 MG; Start 08/02/16 at 09:00 Guaifenesin (Robitussin Liquid Cup) 100 mg Q4 PRN GTB COUGH; Start 08/02/16 at 09:00 Acetaminophen/ Hydrocodone Bitart ([place] (5/325)) 1 tab Q4 PRN GTB WSOB Last administered on 08/08/16at 09:01; Admin Dose 1 TAB; Start 08/02/16 at 09:00 Lactobacillus Acidoph/Bulgaricus (Floranex) 1 tab DAILY GTB Last administered on 08/10/16at 08:16; Admin Dose 1 TAB; Start 08/02/16 at 09:00 Lorazepam (Ativan) 1 mg Q6H PRN GTB ANXIETY Last administered on 08/08/16at 21: 02; Admin Dose 1 MG; Start 08/02/16 at 09:00 Multivit/Ca Carb/ B Cmplx/FA/Prenat (Cheryl-Darcie) 1 tab DAILY GTB Last administered on 08/10/16at 08:16; Admin Dose 1 TAB; Start 08/02/16 at 09:00 Polyethylene Glycol (Miralax) 17 gm DAILY GTB Last administered on 08/10/16at 08:17; Admin Dose 17 GM; Start 08/02/16 at 09:00 Aspirin (Aspirin) 81 mg DAILY GTB Last administered on 08/10/16at 08:16; Admin Dose 81 MG; Start 08/02/16 at 09:00 Lansoprazole 30 mg 30 mg DAILY@06 GTB Last administered on 08/10/16at 05:11; Admin Dose 30 MG; Start 08/02/16 at 10:00 Vancomycin HCl (Vancocin) 250 ml @ 125 mls/hr Q96H IVPB Last administered on 08/07/16at 14:14; Admin Dose 125 MLS/HR; Start 08/03/16 at 14:00 Diagnostic Test (Pha) (Accucheck) 1 ea Q1H XX Last administered on 08/10/16at 06:54; Admin Dose 1 EA; Start 08/05/16 at 09:00 Dextrose (D50w Syringe) 25 ml Q15M PRN IV Till BS 80 mg/dL or above x2; Start 08/05/16 at 08:30 Dextrose (D50w Syringe) 50 ml Q15M PRN IV Till BS 80 mg/dL or above x2; Start 08/05/16 at 08:30 Moxifloxacin HCl 1 drop 1 drop TID BOTH EYES Last administered on 08/10/16at 08 :17; Admin Dose 1 DROP; Start 08/05/16 at 13:00; Stop 08/12/16 at 13:00 Phenylephrine HCl 80 mg/Dextrose 250 ml @ 18.75 mls/ hr TITRATE IV ; Start at 12:30 Norepinephrine 16 mg/Dextrose 500 ml @ 1.87 mls/hr TITRATE IV Last administered on 08/05/16at 14:51; Admin Dose 22.5 MLS/HR; Start 08/05/16 at 12: 00 Imipenem/ Cilastatin Sodium (Primaxin 500 Mg/ 100 ml (Pmx)) 100 ml @ 100 mls/ hr Q24H IVPB Last administered on 08/09/16at 21:21; Admin Dose 100 MLS/HR; Start 08/05/16 at 21:00 Vancomycin HCl (Vancomycin Oral Syringe) 125 mg Q6 NGT Last administered on at 05:45; Admin Dose 125 MG; Start 08/06/16 at 18:00 Sildenafil Citrate (Revatio) 20 mg BID PO Last administered on 08/10/16 08:16 ; Admin Dose 20 MG; Start 08/08/16 at 21:00 Warfarin Sodium (Coumadin) 2.5 mg DAILY@17 GTB Last administered on 08/09/16 18:03; Admin Dose 2.5 MG; Start 08/08/16 at 17:00 Insulin Glargine (Lantus) 15 unit HS SC Last administered on 08/09/16at 21:29; Admin Dose 15 UNIT; Start 08/09/16 at 00:00 Lorazepam (Ativan) 0.5 mg Q4 PRN IV ANXIETY Last administered on 08/09/16at 10: 51; Admin Dose 0.5 MG; Start 08/09/16 at 00:00 Methylprednisolone Sodium Succinate (Solu-Medrol) 20 mg DAILY IV Last administered on 08/10/16 08:17; Admin Dose 20 MG; Start 08/10/16 at 09:00 Digoxin (Digoxin) 0.125 mg DAILY@13 PO ; Start 08/10/16 at 13:00 JESSICA ROSARIO MD Aug 10, 2016 09:21
--- NOTE | 2016-08-10 10:40 | CONS ---
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 - coagulopathy d/t warfarin - PAD with Hx Left BKA - Parkinson's - PCN allergic recommendations: - F/u repeat blood culture x2 and respiratory culture (08/09 pending) - consider de-escalating abx if panculture is negative - continue IV vancomycin (07/29/16-) and Primaxin 500 mg IV q24h (08/05/16-); (s /p aztreonam 07/29-08/05) - continue PO vanco via OGT (07/1916-) - check procalcitonin (ordered) - trend WBC (on low dose steroid) - Above d/w Dr. Hammer - Critical care time spent: 38 minutes Problems: Consultation Date/Type/Reason Admit Date/Time Jul 26, 2016 at 01:55 Initial Consult Date 07/29/16 Type of Consultation: Infectious Disease Reason for Consultation Antibiotic management Referring Provider: GRACIE KATHLEEN 24 HR Interval Summary Free Text/Dictation Pt more alert and was started on fentanyl and versed gtt for agitation overnight ; remains intubated, on insulin gtt, and still with diarrhea via rectal tube per JUAN MIGUEL Cornejo. Tmax 99.9 F Subjective hx not possible: pt non-verbal, pt critical status Exam/Review of Systems Vital Signs Vitals Vital Signs Date Time Temp Pulse Resp B/P Pulse Ox O2 Delivery O2 Flow Rate FiO2 08/10/16 09:00 120 24 106/65 96 Mechanical Ventilator 08/10/16 08:00 50 08/10/16 07:00 99.6 Intake and Output 08/09/16 08/09/16 08/10/16 15:00 23:00 07:00 Intake Total 893 ml 455 ml 511.1 ml Output Total 1500 ml 100 ml 50 ml Balance -607 ml 355 ml 461.1 ml Exam Constitutional: frail, other (orally intubated) Head: atraumatic, normocephalic ENMT: mucosa pink and dry. No thrush noted. Neck: supple, no bruits Respiratory: Few coarse breath sounds R>L. No wheezing Cardiovascular: regular rhythm, tachycardic, normal S1 and S2 Gastrointestinal: soft, bowel sounds present, other (OGT with TF; Lower abdominal ecchymosis spreading horizontally at pannus edge; rectal tube intact with liquid brown stool). Extremities: edema (trivial on RLE and trace on sacral area), other (LLE BKA noted; LUE AVF with + bruit/thrill; R foot cool to touch and DP difficult to palpate; left middle finger partial amputation noted) Neurological: Mildly sedated; currently not follwoing commands Skin: ecchymosis (few scattered on RLE and BUE), nl turgor, other (RUE PICC c/d /i) Results Result Diagram: 08/10/16 0455 08/10/16 0455 Results 24 hrs Laboratory Tests Test 08/09/16 12:40 08/09/16 14:02 08/09/16 16:40 08/09/16 17:56 Bedside Glucose 142 123 178 147 Test 08/09/16 19:54 08/09/16 21:25 08/09/16 23:02 08/10/16 00:45 Bedside Glucose 145 121 124 116 Test 08/10/16 03:13 08/10/16 04:55 08/10/16 05:00 08/10/16 05:03 Bedside Glucose 95 97 Alanine Aminotransferase (ALT/SGPT) 55 Albumin 3.3 Albumin/Globulin Ratio 1.06 Alkaline Phosphatase 148 H Anion Gap 20 H Aspartate Amino Transf (AST/SGOT) 72 H Basophils # Pending Basophils % Pending Blood Morphology Comment Blood Urea Nitrogen 58 #H Calcium Level 8.3 L Carbon Dioxide Level 27 Chloride Level 103 Creatinine 2.96 #H Direct Bilirubin 0.00 Eosinophils # Pending Eosinophils % Pending Globulin 3.10 Glucose Level 95 Hematocrit 33.9 L Hemoglobin 11.1 L INR International Normalized Ratio 1.33 Indirect Bilirubin 0.2 Lymphocytes # Pending Lymphocytes % Pending Mean Corpuscular Hemoglobin 32.0 Mean Corpuscular Hemoglobin Concent 32.6 Mean Corpuscular Volume 98.2 Mean Platelet Volume 8.3 Monocytes # Pending Monocytes % Pending Neutrophils # Pending Neutrophils % Pending Nucleated Red Blood Cells # Pending Nucleated Red Blood Cells % Pending Platelet Count 163 Potassium Level 3.9 Prothrombin Time 16.6 H Prothrombin Time Ratio 1.3 Red Blood Count 3.45 L Red Cell Distribution Width 15.1 H Sodium Level 146 H Total Bilirubin 0.2 Total Protein 6.4 White Blood Count 23.3 H Arterial Blood HCO3 27.0 H Arterial Blood Base Excess 3.6 H Arterial Blood Oxygen Saturation 93.5 L Jerod Test ACCEPTAB Arterial Blood Gas Puncture Site Right Radial Arterial Blood Carboxyhemoglobin 0.3 Arterial Blood Date Drawn 08/10/2016 5:00:23 AM Arterial Blood Methemoglobin 0.2 Arterial Blood pCO2 (Temp correct) 36.8 Arterial Blood pH (Temp corrected) 7.484 H Arterial Blood pO2 (Temp corrected) 69.7 L Blood Gas A-a O2 Differential 173.2 H Blood Gas Actual Respiration Rate 16 Blood Gas Inspiratory Pressure 19.0 Blood Gas Modality VENT - AC Blood Gas Notified Time 08/10/2016 6:01:53 AM Blood Gas Notified Whom HG Blood Gas Respiration Rate 16.0 Blood Gas Specimen Source Blood arterial Blood Gas Temperature 37.0 Blood Gas Tidal Volume 550.0 FiO2 40.0 Oxyhemoglobin Percent 93.0 Total Hemoglobin 12.0 Test 08/10/16 06:54 08/10/16 08:38 Bedside Glucose 107 119 C diff 08/06/16: C DIFFICILE DNA AMPLIFICATION Final CYTOTOXIGENIC C DIFFICILE POSITIVE (Ref Range Neg) Sputum cx 08/02/16: GRAM STAIN Final POLYMORPH. LEUKOCYTE RARE . NO ORGANISM SEEN RESPIRATORY CULTURE Final Organism 1 JERRY ALBICANS QUANTITY RARE Organism 2 NORMAL RESPIRATORY MEKHI QUANTITY SCANT GROWTH Medications Medications Current Medications Fluticasone Propionate (Flonase 0.05% Nasal) 1 spray BID NASAL Last administered on 08/10/16at 08:18; Admin Dose 1 SPRAY; Start 07/26/16 at 10:00 Epoetin [place] (Epogen (Esrd)) 10,000 units MoWeFr@17 SC Last administered on at 17:42; Admin Dose 10,000 UNITS; Start 07/27/16 at 17:00 Hydralazine HCl 10 mg 10 mg Q6H PRN IV ELEVATED BLOOD PRESSURE Last administered on 07/29/16at 12:59; Admin Dose 10 MG; Start 07/29/16 at 13:00 Midazolam HCl 50 mg/Dextrose 50 ml @ 1 mls/hr TITRATE IV Last administered on 08/10/16at 00:41; Admin Dose 1 MLS/HR; Start 08/01/16 at 23:00 Fentanyl/Dextrose (D5W) 100 ml @ 2.6 mls/hr TITRATE IV Last administered on at 23:09; Admin Dose 2.6 MLS/HR; Start 08/01/16 at 23:00 Acetaminophen (Tylenol Tab) 650 mg Q6H PRN GTB PAIN1-3/FEVER ABOVE 100; Start 08/02/16 at 15:00 Atorvastatin Calcium (Lipitor) 40 mg HS GTB Last administered on 08/09/16at 21: 23; Admin Dose 40 MG; Start 08/02/16 at 21:00 Carvedilol (Coreg) 6.25 mg BID GTB ; Start 08/02/16 at 09:00; Status Future Hold Duloxetine HCl (Cymbalta) 90 mg DAILY GTB Last administered on 08/10/16at 08:16 ; Admin Dose 90 MG; Start 08/02/16 at 09:00 Guaifenesin (Robitussin Liquid Cup) 100 mg Q4 PRN GTB COUGH; Start 08/02/16 at 09:00 Acetaminophen/ Hydrocodone Bitart ([place] (5/325)) 1 tab Q4 PRN GTB WSOB Last administered on 08/08/16at 09:01; Admin Dose 1 TAB; Start 08/02/16 at 09:00 Lactobacillus Acidoph/Bulgaricus (Floranex) 1 tab DAILY GTB Last administered on 08/10/16at 08:16; Admin Dose 1 TAB; Start 08/02/16 at 09:00 Lorazepam (Ativan) 1 mg Q6H PRN GTB ANXIETY Last administered on 08/08/16at 21: 02; Admin Dose 1 MG; Start 08/02/16 at 09:00 Multivit/Ca Carb/ B Cmplx/FA/Prenat (Cheryl-Darcie) 1 tab DAILY GTB Last administered on 08/10/16 08:16; Admin Dose 1 TAB; Start 08/02/16 at 09:00 Polyethylene Glycol (Miralax) 17 gm DAILY GTB Last administered on 08/10/16 08:17; Admin Dose 17 GM; Start 08/02/16 at 09:00 Aspirin (Aspirin) 81 mg DAILY GTB Last administered on 08/10/16 08:16; Admin Dose 81 MG; Start 08/02/16 at 09:00 Lansoprazole 30 mg 30 mg DAILY@06 GTB Last administered on 08/10/16 05:11; Admin Dose 30 MG; Start 08/02/16 at 10:00 Vancomycin HCl (Vancocin) 250 ml @ 125 mls/hr Q96H IVPB Last administered on 08/07/16at 14:14; Admin Dose 125 MLS/HR; Start 08/03/16 at 14:00 Diagnostic Test (Pha) (Accucheck) 1 ea Q1H XX Last administered on 08/10/16at 08:00; Admin Dose 1 EA; Start 08/05/16 at 09:00 Dextrose (D50w Syringe) 25 ml Q15M PRN IV Till BS 80 mg/dL or above x2; Start 08/05/16 at 08:30 Dextrose (D50w Syringe) 50 ml Q15M PRN IV Till BS 80 mg/dL or above x2; Start 08/05/16 at 08:30 Moxifloxacin HCl 1 drop 1 drop TID BOTH EYES Last administered on 08/10/16at 08 :17; Admin Dose 1 DROP; Start 08/05/16 at 13:00; Stop 08/12/16 at 13:00 Phenylephrine HCl 80 mg/Dextrose 250 ml @ 18.75 mls/ hr TITRATE IV ; Start at 12:30 Norepinephrine 16 mg/Dextrose 500 ml @ 1.87 mls/hr TITRATE IV Last administered on 08/05/16at 14:51; Admin Dose 22.5 MLS/HR; Start 08/05/16 at 12: 00 Imipenem/ Cilastatin Sodium (Primaxin 500 Mg/ 100 ml (Pmx)) 100 ml @ 100 mls/ hr Q24H IVPB Last administered on 08/09/16at 21:21; Admin Dose 100 MLS/HR; Start 08/05/16 at 21:00 Vancomycin HCl (Vancomycin Oral Syringe) 125 mg Q6 NGT Last administered on at 05:45; Admin Dose 125 MG; Start 08/06/16 at 18:00 Sildenafil Citrate (Revatio) 20 mg BID PO Last administered on 08/10/16at 08:16 ; Admin Dose 20 MG; Start 08/08/16 at 21:00 Warfarin Sodium (Coumadin) 2.5 mg DAILY@17 GTB Last administered on 08/09/16at 18:03; Admin Dose 2.5 MG; Start 08/08/16 at 17:00 Insulin Glargine (Lantus) 15 unit HS SC Last administered on 08/09/16at 21:29; Admin Dose 15 UNIT; Start 08/09/16 at 00:00 Lorazepam (Ativan) 0.5 mg Q4 PRN IV ANXIETY Last administered on 08/09/16at 10: 51; Admin Dose 0.5 MG; Start 08/09/16 at 00:00 Methylprednisolone Sodium Succinate (Solu-Medrol) 20 mg DAILY IV Last administered on 08/10/16at 08:17; Admin Dose 20 MG; Start 08/10/16 at 09:00 Digoxin (Digoxin) 0.125 mg DAILY@13 PO ; Start 08/10/16 at 13:00 Procedures Procedures CXR 08/10/16: Hypoinflated lungs with atelectasis in the bilateral lower lobes. Stable perihilar infiltrates in the right upper lobe. CT Brain 07/30/16: Examination is degraded due to patient motion artifact. No evidence of focal hematoma, mass effect, or definite acute ischemic changes. Moderate chronic-appearing microvascular ischemic changes of the supratentorial white matter. Venous study 07/26/16: Old partial DVT of the right internal jugular vein. BLE venous study 07/26/16: No evidence of deep vein thrombosis involving either lower extremity. VQ scan 07/26/16: 1. No evidence of deep vein thrombosis involving either lower extremity. SADIA HAMMER M.D. 08/11/16 0020: Assessment/Plan Assessment/Plan Additional Assessment/Plan I discussed the management with SARAN Crabtree and agree with above. Exam/Review of Systems Results Result Diagram: 08/10/16 0455 08/10/16 0455 JERICHO CRABTREE NP Aug 10, 2016 10:40 SADIA HAMMER M.D. Aug 11, 2016 00:20
[2016-08-10 10:57] LABS: LYMPHOCYTES # 0.9 10^3/ul (0.8-2.9); MONOCYTE # 2.1 10^3/ul (0.3-0.9); NEUTROPHIL # 20.3 10^3/ul (1.6-7.5)
--- NOTE | 2016-08-10 11:15 | CONS ---
Date/Time of Note Date/Time of Note DATE: 08/10/16 TIME: 11:12 Assessment/Plan Assessment/Plan Additional Assessment/Plan Respiratory failure status post intubation Sepsis Minimally elevated troponin Partial right internal jugular DVT Diastolic congestive heart failure End-stage renal disease on hemodialysis CAD with history of PCI Diabetes Peripheral arterial disease with history of amputation Pulmonary hypertension -Patient still with difficulty with weaning from ventilator. Blood pressure trend overall improving, tolerating sildenafil, telemetry reviewed overall sinus tachycardia with less frequent episodes of paroxysmal atrial tachycardia. Fluid management via hemodialysis as per our nephrology colleagues. Consultation Date/Type/Reason Admit Date/Time Jul 26, 2016 at 01:55 Type of Consultation: cv Referring Provider: GRACIE KATHLEEN 24 HR Interval Summary Free Text/Dictation Patient currently sedated, no cardiac issues as per nursing staff Exam/Review of Systems Vital Signs Vitals Vital Signs Date Time Temp Pulse Resp B/P Pulse Ox O2 Delivery O2 Flow Rate FiO2 08/10/16 10:37 127 19 95 45 08/10/16 09:00 106/65 Mechanical Ventilator 08/10/16 07:00 99.6 Intake and Output 08/09/16 08/09/16 08/10/16 15:00 23:00 07:00 Intake Total 893 ml 455 ml 511.1 ml Output Total 1500 ml 100 ml 50 ml Balance -607 ml 355 ml 461.1 ml Exam Sedated and intubated, no apparent distress Head: normocephalic ENMT: intubated Respiratory: other (course breath sounds bilaterally, no wheezing) Cardiovascular: other (S1-S2 heard), regular rate and rhythm Gastrointestinal: bowel sounds, non-tender, soft Extremities: edema Results Result Diagram: 08/10/16 0455 08/10/16 0455 Results 24 hrs Laboratory Tests Test 08/09/16 12:40 08/09/16 14:02 08/09/16 16:40 08/09/16 17:56 Bedside Glucose 142 123 178 147 Test 08/09/16 19:54 08/09/16 21:25 08/09/16 23:02 08/10/16 00:45 Bedside Glucose 145 121 124 116 Test 08/10/16 03:13 08/10/16 04:55 08/10/16 05:00 08/10/16 05:03 Bedside Glucose 95 97 Alanine Aminotransferase (ALT/SGPT) 55 Albumin 3.3 Albumin/Globulin Ratio 1.06 Alkaline Phosphatase 148 H Anion Gap 20 H Aspartate Amino Transf (AST/SGOT) 72 H Basophils # Basophils % Blood Morphology Comment Blood Urea Nitrogen 58 #H Calcium Level 8.3 L Carbon Dioxide Level 27 Chloride Level 103 Creatinine 2.96 #H Differential Comment MANUAL DIFF Direct Bilirubin 0.00 Eosinophils # Eosinophils % Globulin 3.10 Glucose Level 95 Hematocrit 33.9 L Hemoglobin 11.1 L INR International Normalized Ratio 1.33 Indirect Bilirubin 0.2 Lymphocytes # 0.9 Lymphocytes % 4.0 L Mean Corpuscular Hemoglobin 32.0 Mean Corpuscular Hemoglobin Concent 32.6 Mean Corpuscular Volume 98.2 Mean Platelet Volume 8.3 Monocytes # 2.1 H Monocytes % 9.0 Neutrophils # 20.3 H Neutrophils % 87.0 H Nucleated Red Blood Cells # Nucleated Red Blood Cells % Platelet Count 163 Potassium Level 3.9 Prothrombin Time 16.6 H Prothrombin Time Ratio 1.3 Red Blood Count 3.45 L Red Cell Distribution Width 15.1 H Sodium Level 146 H Total Bilirubin 0.2 Total Protein 6.4 White Blood Count 23.3 H Arterial Blood HCO3 27.0 H Arterial Blood Base Excess 3.6 H Arterial Blood Oxygen Saturation 93.5 L Jerod Test ACCEPTAB Arterial Blood Gas Puncture Site Right Radial Arterial Blood Carboxyhemoglobin 0.3 Arterial Blood Date Drawn 08/10/2016 5:00:23 AM Arterial Blood Methemoglobin 0.2 Arterial Blood pCO2 (Temp correct) 36.8 Arterial Blood pH (Temp corrected) 7.484 H Arterial Blood pO2 (Temp corrected) 69.7 L Blood Gas A-a O2 Differential 173.2 H Blood Gas Actual Respiration Rate 16 Blood Gas Inspiratory Pressure 19.0 Blood Gas Modality VENT - AC Blood Gas Notified Time 08/10/2016 6:01:53 AM Blood Gas Notified Whom HG Blood Gas Respiration Rate 16.0 Blood Gas Specimen Source Blood arterial Blood Gas Temperature 37.0 Blood Gas Tidal Volume 550.0 FiO2 40.0 Oxyhemoglobin Percent 93.0 Total Hemoglobin 12.0 Test 08/10/16 06:54 08/10/16 08:38 Bedside Glucose 107 119 Medications Medications Current Medications Fluticasone Propionate (Flonase 0.05% Nasal) 1 spray BID NASAL Last administered on 08/10/16at 08:18; Admin Dose 1 SPRAY; Start 07/26/16 at 10:00 Epoetin [place] (Epogen (Esrd)) 10,000 units MoWeFr@17 SC Last administered on at 17:42; Admin Dose 10,000 UNITS; Start 07/27/16 at 17:00 Hydralazine HCl 10 mg 10 mg Q6H PRN IV ELEVATED BLOOD PRESSURE Last administered on 07/29/16at 12:59; Admin Dose 10 MG; Start 07/29/16 at 13:00 Midazolam HCl 50 mg/Dextrose 50 ml @ 1 mls/hr TITRATE IV Last administered on 08/10/16at 00:41; Admin Dose 1 MLS/HR; Start 08/01/16 at 23:00 Fentanyl/Dextrose (D5W) 100 ml @ 2.6 mls/hr TITRATE IV Last administered on at 23:09; Admin Dose 2.6 MLS/HR; Start 08/01/16 at 23:00 Acetaminophen (Tylenol Tab) 650 mg Q6H PRN GTB PAIN1-3/FEVER ABOVE 100; Start 08/02/16 at 15:00 Atorvastatin Calcium (Lipitor) 40 mg HS GTB Last administered on 08/09/16at 21: 23; Admin Dose 40 MG; Start 08/02/16 at 21:00 Carvedilol (Coreg) 6.25 mg BID GTB ; Start 08/02/16 at 09:00; Status Future Hold Duloxetine HCl (Cymbalta) 90 mg DAILY GTB Last administered on 08/10/16at 08:16 ; Admin Dose 90 MG; Start 08/02/16 at 09:00 Guaifenesin (Robitussin Liquid Cup) 100 mg Q4 PRN GTB COUGH; Start 08/02/16 at 09:00 Acetaminophen/ Hydrocodone Bitart ([place] (5/325)) 1 tab Q4 PRN GTB WSOB Last administered on 08/08/16at 09:01; Admin Dose 1 TAB; Start 08/02/16 at 09:00 Lactobacillus Acidoph/Bulgaricus (Floranex) 1 tab DAILY GTB Last administered on 08/10/16at 08:16; Admin Dose 1 TAB; Start 08/02/16 at 09:00 Lorazepam (Ativan) 1 mg Q6H PRN GTB ANXIETY Last administered on 08/08/16at 21: 02; Admin Dose 1 MG; Start 08/02/16 at 09:00 Multivit/Ca Carb/ B Cmplx/FA/Prenat (Cheryl-Darcie) 1 tab DAILY GTB Last administered on 08/10/16at 08:16; Admin Dose 1 TAB; Start 08/02/16 at 09:00 Polyethylene Glycol (Miralax) 17 gm DAILY GTB Last administered on 08/10/16 08:17; Admin Dose 17 GM; Start 08/02/16 at 09:00 Aspirin (Aspirin) 81 mg DAILY GTB Last administered on 08/10/16 08:16; Admin Dose 81 MG; Start 08/02/16 at 09:00 Lansoprazole 30 mg 30 mg DAILY@06 GTB Last administered on 08/10/16at 05:11; Admin Dose 30 MG; Start 08/02/16 at 10:00 Vancomycin HCl (Vancocin) 250 ml @ 125 mls/hr Q96H IVPB Last administered on 08/07/16at 14:14; Admin Dose 125 MLS/HR; Start 08/03/16 at 14:00 Diagnostic Test (Pha) (Accucheck) 1 ea Q1H XX Last administered on 08/10/16at 08:00; Admin Dose 1 EA; Start 08/05/16 at 09:00 Dextrose (D50w Syringe) 25 ml Q15M PRN IV Till BS 80 mg/dL or above x2; Start 08/05/16 at 08:30 Dextrose (D50w Syringe) 50 ml Q15M PRN IV Till BS 80 mg/dL or above x2; Start 08/05/16 at 08:30 Moxifloxacin HCl 1 drop 1 drop TID BOTH EYES Last administered on 08/10/16at 08 :17; Admin Dose 1 DROP; Start 08/05/16 at 13:00; Stop 08/12/16 at 13:00 Phenylephrine HCl 80 mg/Dextrose 250 ml @ 18.75 mls/ hr TITRATE IV ; Start at 12:30 Norepinephrine 16 mg/Dextrose 500 ml @ 1.87 mls/hr TITRATE IV Last administered on 08/05/16at 14:51; Admin Dose 22.5 MLS/HR; Start 08/05/16 at 12: 00 Imipenem/ Cilastatin Sodium (Primaxin 500 Mg/ 100 ml (Pmx)) 100 ml @ 100 mls/ hr Q24H IVPB Last administered on 08/09/16at 21:21; Admin Dose 100 MLS/HR; Start 08/05/16 at 21:00 Vancomycin HCl (Vancomycin Oral Syringe) 125 mg Q6 NGT Last administered on 05:45; Admin Dose 125 MG; Start 08/06/16 at 18:00 Sildenafil Citrate (Revatio) 20 mg BID PO Last administered on 08/10/16at 08:16 ; Admin Dose 20 MG; Start 08/08/16 at 21:00 Warfarin Sodium (Coumadin) 2.5 mg DAILY@17 GTB Last administered on 08/09/16 18:03; Admin Dose 2.5 MG; Start 08/08/16 at 17:00 Insulin Glargine (Lantus) 15 unit HS SC Last administered on 08/09/16at 21:29; Admin Dose 15 UNIT; Start 08/09/16 at 00:00 Lorazepam (Ativan) 0.5 mg Q4 PRN IV ANXIETY Last administered on 08/09/16at 10: 51; Admin Dose 0.5 MG; Start 08/09/16 at 00:00 Methylprednisolone Sodium Succinate (Solu-Medrol) 20 mg DAILY IV Last administered on 08/10/16at 08:17; Admin Dose 20 MG; Start 08/10/16 at 09:00 Digoxin (Digoxin) 0.125 mg DAILY@13 PO ; Start 08/10/16 at 13:00 Solo Leon DO Aug 10, 2016 11:15
[2016-08-10] MEDS: DIGOXIN 0.125 MG TAB PO SCH (12:44)
--- NOTE | 2016-08-10 13:24 | PN ---
Date/Time of Note Date/Time of Note DATE: 08/10/16 TIME: 13:20 Assessment/Plan Lines/Catheters IV Catheter Type (from Nrs): Mid Line Urinary Cath still in place: No Assessment/Plan Assessment/Plan 1. Acute respiratory failure- sp intubation on 07/31 - per pulmonary, continue ventilator support, bronchodilators, steroids. 2. Possible pneumonia- right lower lobe infiltrate- possible aspiration pneumonia per Pulmonary. Sputum grew 08/02 rare jerry albicans - per Dr. Reardon in infectious disease consultation. 3. Early sepsis d/t C diff - recurrent leukocytosis improving and low grade fever resolving. 4. End-stage renal disease hemodialysis dependent. - on HD - per Dr. Bassett in nephrology consultation 5. Diastolic congestive heart failure. Continue to remove fluid was hemodialysis. 6. Partial right internal jugular DVT. Continue Coumadin. Continue daily PT PTT. 7. C diff stool - per ID - on po Vanco - contact isolation 8. RUE cellulitis with axillary/cephalic venous thrombosis - PER id 9. Hyperglycemia- GLYCEMIC Control- stable 10. Toxic metabolic encephalopathy 11. Osteoporosis. 12. Pulmonary hypertension. Continue sildenafil. 13. Coronary artery disease with history of PCI. 14. Depression. Continue Cymbalta 15. History of left hip fracture, treated conservatively. Protonix for peptic ulcer disease prophylaxis Further recommendations based on clinical course. Total critical time spend = 30 mins Plan of care discussed with Dr. Miramontes. Subjective 24 Hr Interval Summary Free Text/Dictation NAD. remains intubated, no new events reported. dw staff Subjective hx not possible: pt non-verbal Constitutional: requiring IVF, requiring O2 Exam/Review of Systems Vital Signs Vitals Vital Signs Date Time Temp Pulse Resp B/P Pulse Ox O2 Delivery O2 Flow Rate FiO2 08/10/16 12:00 99.4 128 27 121/67 94 Mechanical Ventilator 08/10/16 10:37 45 Intake and Output 08/09/16 08/09/16 08/10/16 15:00 23:00 07:00 Intake Total 893 ml 455 ml 511.1 ml Output Total 1500 ml 100 ml 50 ml Balance -607 ml 355 ml 461.1 ml Exam Constitutional: frail Eyes: nl conjunctiva ENMT: nl external ears & nose, other Neck: non-tender Respiratory: diminished breath sounds, other Cardiovascular: nl pulses Gastrointestinal: non-tender, other, soft Musculoskeletal: other Extremities: normal pulses Neurological: lethargic Skin: laceration Lymph: nontender Results Result Diagram: 08/10/16 0455 08/10/16 0455 Results 24 hrs Laboratory Tests Test 08/09/16 14:02 08/09/16 16:40 08/09/16 17:56 08/09/16 19:54 Bedside Glucose 123 178 147 145 Test 08/09/16 21:25 08/09/16 23:02 08/10/16 00:45 08/10/16 03:13 Bedside Glucose 121 124 116 95 Test 08/10/16 04:55 08/10/16 05:00 08/10/16 05:03 08/10/16 06:54 Alanine Aminotransferase (ALT/SGPT) 55 Albumin 3.3 Albumin/Globulin Ratio 1.06 Alkaline Phosphatase 148 H Anion Gap 20 H Aspartate Amino Transf (AST/SGOT) 72 H Basophils # Basophils % Blood Morphology Comment Blood Urea Nitrogen 58 #H Calcium Level 8.3 L Carbon Dioxide Level 27 Chloride Level 103 Creatinine 2.96 #H Differential Comment MANUAL DIFF Direct Bilirubin 0.00 Eosinophils # Eosinophils % Globulin 3.10 Glucose Level 95 Hematocrit 33.9 L Hemoglobin 11.1 L INR International Normalized Ratio 1.33 Indirect Bilirubin 0.2 Lymphocytes # 0.9 Lymphocytes % 4.0 L Mean Corpuscular Hemoglobin 32.0 Mean Corpuscular Hemoglobin Concent 32.6 Mean Corpuscular Volume 98.2 Mean Platelet Volume 8.3 Monocytes # 2.1 H Monocytes % 9.0 Neutrophils # 20.3 H Neutrophils % 87.0 H Nucleated Red Blood Cells # Nucleated Red Blood Cells % Platelet Count 163 Potassium Level 3.9 Prothrombin Time 16.6 H Prothrombin Time Ratio 1.3 Red Blood Count 3.45 L Red Cell Distribution Width 15.1 H Sodium Level 146 H Total Bilirubin 0.2 Total Protein 6.4 White Blood Count 23.3 H Arterial Blood HCO3 27.0 H Arterial Blood Base Excess 3.6 H Arterial Blood Oxygen Saturation 93.5 L Jerod Test ACCEPTAB Arterial Blood Gas Puncture Site Right Radial Arterial Blood Carboxyhemoglobin 0.3 Arterial Blood Date Drawn 08/10/2016 5:00:23 AM Arterial Blood Methemoglobin 0.2 Arterial Blood pCO2 (Temp correct) 36.8 Arterial Blood pH (Temp corrected) 7.484 H Arterial Blood pO2 (Temp corrected) 69.7 L Blood Gas A-a O2 Differential 173.2 H Blood Gas Actual Respiration Rate 16 Blood Gas Inspiratory Pressure 19.0 Blood Gas Modality VENT - AC Blood Gas Notified Time 08/10/2016 6:01:53 AM Blood Gas Notified Whom HG Blood Gas Respiration Rate 16.0 Blood Gas Specimen Source Blood arterial Blood Gas Temperature 37.0 Blood Gas Tidal Volume 550.0 FiO2 40.0 Oxyhemoglobin Percent 93.0 Total Hemoglobin 12.0 Bedside Glucose 97 107 Test 08/10/16 08:38 08/10/16 11:30 08/10/16 12:53 Bedside Glucose 119 134 130 Medications Medications Current Medications Fluticasone Propionate (Flonase 0.05% Nasal) 1 spray BID NASAL Last administered on 08/10/16at 08:18; Admin Dose 1 SPRAY; Start 07/26/16 at 10:00 Epoetin [place] (Epogen (Esrd)) 10,000 units MoWeFr@17 SC Last administered on at 17:42; Admin Dose 10,000 UNITS; Start 07/27/16 at 17:00 Hydralazine HCl 10 mg 10 mg Q6H PRN IV ELEVATED BLOOD PRESSURE Last administered on 07/29/16at 12:59; Admin Dose 10 MG; Start 07/29/16 at 13:00 Midazolam HCl 50 mg/Dextrose 50 ml @ 1 mls/hr TITRATE IV Last administered on 08/10/16at 12:17; Admin Dose 3 MLS/HR; Start 08/01/16 at 23:00 Fentanyl/Dextrose (D5W) 100 ml @ 2.6 mls/hr TITRATE IV Last administered on at 23:09; Admin Dose 2.6 MLS/HR; Start 08/01/16 at 23:00 Acetaminophen (Tylenol Tab) 650 mg Q6H PRN GTB PAIN1-3/FEVER ABOVE 100; Start 08/02/16 at 15:00 Atorvastatin Calcium (Lipitor) 40 mg HS GTB Last administered on 08/09/16at 21: 23; Admin Dose 40 MG; Start 08/02/16 at 21:00 Carvedilol (Coreg) 6.25 mg BID GTB ; Start 08/02/16 at 09:00; Status Future Hold Duloxetine HCl (Cymbalta) 90 mg DAILY GTB Last administered on 08/10/16 08:16 ; Admin Dose 90 MG; Start 08/02/16 at 09:00 Guaifenesin (Robitussin Liquid Cup) 100 mg Q4 PRN GTB COUGH; Start 08/02/16 at 09:00 Acetaminophen/ Hydrocodone Bitart ([place] (5/325)) 1 tab Q4 PRN GTB WSOB Last administered on 08/08/16at 09:01; Admin Dose 1 TAB; Start 08/02/16 at 09:00 Lactobacillus Acidoph/Bulgaricus (Floranex) 1 tab DAILY GTB Last administered on 08/10/16at 08:16; Admin Dose 1 TAB; Start 08/02/16 at 09:00 Lorazepam (Ativan) 1 mg Q6H PRN GTB ANXIETY Last administered on 08/08/16at 21: 02; Admin Dose 1 MG; Start 08/02/16 at 09:00 Multivit/Ca Carb/ B Cmplx/FA/Prenat (Cheryl-Darcie) 1 tab DAILY GTB Last administered on 08/10/16 08:16; Admin Dose 1 TAB; Start 08/02/16 at 09:00 Polyethylene Glycol (Miralax) 17 gm DAILY GTB Last administered on 08/10/16 08:17; Admin Dose 17 GM; Start 08/02/16 at 09:00 Aspirin (Aspirin) 81 mg DAILY GTB Last administered on 08/10/16 08:16; Admin Dose 81 MG; Start 08/02/16 at 09:00 Lansoprazole 30 mg 30 mg DAILY@06 GTB Last administered on 08/10/16at 05:11; Admin Dose 30 MG; Start 08/02/16 at 10:00 Vancomycin HCl (Vancocin) 250 ml @ 125 mls/hr Q96H IVPB Last administered on 08/07/16at 14:14; Admin Dose 125 MLS/HR; Start 08/03/16 at 14:00 Diagnostic Test (Pha) (Accucheck) 1 ea Q1H XX Last administered on 08/10/16 13:09; Admin Dose 1 EA; Start 08/05/16 at 09:00 Dextrose (D50w Syringe) 25 ml Q15M PRN IV Till BS 80 mg/dL or above x2; Start 08/05/16 at 08:30 Dextrose (D50w Syringe) 50 ml Q15M PRN IV Till BS 80 mg/dL or above x2; Start 08/05/16 at 08:30 Moxifloxacin HCl 1 drop 1 drop TID BOTH EYES Last administered on 08/10/16at 12 :43; Admin Dose 1 DROP; Start 08/05/16 at 13:00; Stop 08/12/16 at 13:00 Phenylephrine HCl 80 mg/Dextrose 250 ml @ 18.75 mls/ hr TITRATE IV ; Start at 12:30 Norepinephrine 16 mg/Dextrose 500 ml @ 1.87 mls/hr TITRATE IV Last administered on 08/05/16at 14:51; Admin Dose 22.5 MLS/HR; Start 08/05/16 at 12: 00 Imipenem/ Cilastatin Sodium (Primaxin 500 Mg/ 100 ml (Pmx)) 100 ml @ 100 mls/ hr Q24H IVPB Last administered on 08/09/16at 21:21; Admin Dose 100 MLS/HR; Start 08/05/16 at 21:00 Vancomycin HCl (Vancomycin Oral Syringe) 125 mg Q6 NGT Last administered on 11:27; Admin Dose 125 MG; Start 08/06/16 at 18:00 Sildenafil Citrate (Revatio) 20 mg BID PO Last administered on 08/10/16at 08:16 ; Admin Dose 20 MG; Start 08/08/16 at 21:00 Warfarin Sodium (Coumadin) 2.5 mg DAILY@17 GTB Last administered on 08/09/16at 18:03; Admin Dose 2.5 MG; Start 08/08/16 at 17:00 Insulin Glargine (Lantus) 15 unit HS SC Last administered on 08/09/16at 21:29; Admin Dose 15 UNIT; Start 08/09/16 at 00:00 Lorazepam (Ativan) 0.5 mg Q4 PRN IV ANXIETY Last administered on 08/09/16 10: 51; Admin Dose 0.5 MG; Start 08/09/16 at 00:00 Methylprednisolone Sodium Succinate (Solu-Medrol) 20 mg DAILY IV Last administered on 08/10/16 08:17; Admin Dose 20 MG; Start 08/10/16 at 09:00 Digoxin (Digoxin) 0.125 mg DAILY@13 PO Last administered on 12/23/16at 12:44; Admin Dose 0.125 MG; Start 08/10/16 at 13:00 Miscellaneous Information (*Rx Drug Level Order Reminder*) VANCO TROUGH @ 1, 300 ON ... ONCE ONCE XX ; Start 08/11/16 at 13:00; Stop 08/11/16 at 13:01 GRACIE KATHLEEN Aug 10, 2016 13:23
[2016-08-10] MEDS: ACETAMINOPHEN 325 MG TAB GTB PRN ×2 (14:11→21:59)
[2016-08-10] MEDS ORDERED: ALTEPLASE (CATHFLO) 2 MG INJ CATHETER ONE (15:00)
[2016-08-10] MEDS: WARFARIN 2.5 MG TAB GTB SCH (17:24)
[2016-08-10] MEDS: ATORVASTATIN 40 MG TAB GTB SCH (22:00)
[2016-08-10] MEDS: IMIPENEM-CILAST 500MG IV (PMX) 100 ML IVPB SCH (22:00)
[2016-08-10] MEDS: INSULIN GLARGINE [LANtus] 3 ML PEN SC SCH (22:03)
[2016-08-10] MEDS: FENTAnyl 1,000 MCG in DEXTROSE 5% 80 ML IV SCH (22:10)
[2016-08-11] VITALS (49 sets, daily range): BP systolic 84–142; BP diastolic 42–94; PULSE 95–131; RESP 14–37
[2016-08-11] MEDS: ACCUCHECK XX SCH ×13 (00:19→14:00)
[2016-08-11] MEDS: VANCOMYCIN HCL 250 MG/5ML POSYG NGT SCH ×4 (00:19→18:03)
[2016-08-11] MEDS: ALBUTEROL HFA 8 GM INHALER INH SCH ×6 (00:44→21:48)
[2016-08-11] MEDS: ACETAMINOPHEN 325 MG TAB GTB PRN (04:51)
[2016-08-11] MEDS: MIDAZOLAM 50 MG in DEXTROSE 5% 40 ML IV SCH ×2 (04:53→23:07)
[2016-08-11] MEDS: LANSOPRAZOLE 30 MG CAP GTB SCH (05:30)
[2016-08-11 07:57] LABS: CREATININE 3.76 mg/dl (0.61-1.24)
[2016-08-11 07:58] LABS: PHOSPHORUS 3.4 mg/dl (2.5-4.9)
[2016-08-11 07:59] LABS: CALCIUM 7.3 mg/dl (8.4-10.2)
[2016-08-11 08:58] LABS: HEMATOCRIT 31.9 % (42.0-52.0); HEMOGLOBIN 10.3 g/dl (14.0-18.0); MEAN CORPUSCULAR HEMOGLOBIN 31.5 pg (29.0-33.0); MEAN CORPUSCULAR HGB CONC 32.2 g/dl (32.0-37.0); MEAN CORPUSCULAR VOLUME 97.9 fl (82.0-101.0); MEAN PLATELET VOLUME 8.8 fl (7.4-10.4); PLATELET COUNT 156 10^3/UL (140-440); RED BLOOD COUNT 3.26 10^6/ul (4.70-6.10); RED CELL DISTRIBUTION WIDTH 15.7 % (11.5-14.5); UNCORRECTED WBC 21.2 10^3/ul (4.8-10.8); WHITE BLOOD COUNT 21.2 10^3/ul (4.8-10.8)
[2016-08-11] MEDS: POLYETHYLENE GLYCOL 17 GM PACKET GTB SCH (09:00)
[2016-08-11 09:11] LABS: CONDITION 1; LH ANALYZER COMMENTS 1; SUSPECT 1
--- NOTE | 2016-08-11 10:37 | CONS ---
Date/Time of Note Date/Time of Note DATE: 08/11/16 TIME: 10:36 Assessment/Plan Assessment/Plan Additional Assessment/Plan 1. Pul infiltrates,abx per id 2. CKD,now being dialyzed 3. DM, sugars are acceptable. Consultation Date/Type/Reason Admit Date/Time Jul 26, 2016 at 01:55 Type of Consultation: cv Referring Provider: GRACIE KATHLEEN 24 HR Interval Summary Constitutional: No other (intubated and sedated) Exam/Review of Systems Vital Signs Vitals Vital Signs Date Time Temp Pulse Resp B/P Pulse Ox O2 Delivery O2 Flow Rate FiO2 08/11/16 10:31 108 08/11/16 09:00 18 116/70 97 Mechanical Ventilator 08/11/16 08:00 102.6 08/11/16 05:38 45 Intake and Output 08/10/16 08/10/16 08/11/16 15:00 23:00 07:00 Intake Total 410.0 ml 485.0 ml 7 ml Output Total 0 ml 20 ml Balance 410.0 ml 465.0 ml 7 ml Exam Neck: No jvd Respiratory: diminished breath sounds Cardiovascular: regular rate and rhythm Gastrointestinal: soft Extremities: No edema Results Result Diagram: 08/11/16 0500 08/11/16 0500 Results 24 hrs Laboratory Tests Test 08/10/16 11:30 08/10/16 12:53 08/10/16 15:17 08/10/16 17:21 Bedside Glucose 134 130 145 96 Test 08/10/16 20:27 08/10/16 21:52 08/10/16 23:27 08/11/16 01:18 Bedside Glucose 122 129 120 107 Test 08/11/16 03:13 08/11/16 05:00 08/11/16 05:28 08/11/16 07:03 Bedside Glucose 107 136 112 Anion Gap 21 H Basophils # Pending Basophils % Pending Blood Morphology Comment Blood Urea Nitrogen 83 H Calcium Level 7.3 L Carbon Dioxide Level 24 Chloride Level 98 Creatinine 3.76 H Eosinophils # Pending Eosinophils % Pending Glucose Level 209 # Hematocrit 31.9 L Hemoglobin 10.3 L Lymphocytes # Pending Lymphocytes % Pending Mean Corpuscular Hemoglobin 31.5 Mean Corpuscular Hemoglobin Concent 32.2 Mean Corpuscular Volume 97.9 Mean Platelet Volume 8.8 Monocytes # Pending Monocytes % Pending Neutrophils # Pending Neutrophils % Pending Nucleated Red Blood Cells # Pending Nucleated Red Blood Cells % Pending Phosphorus Level 3.4 Platelet Count 156 Potassium Level 4.0 Red Blood Count 3.26 L Red Cell Distribution Width 15.7 H Sodium Level 139 White Blood Count 21.2 H Test 08/11/16 09:04 Bedside Glucose 117 Medications Medications Current Medications Fluticasone Propionate (Flonase 0.05% Nasal) 1 spray BID NASAL Last administered on 08/10/16at 22:01; Admin Dose 1 SPRAY; Start 07/26/16 at 10:00 Epoetin [place] (Epogen (Esrd)) 10,000 units MoWeFr@17 SC Last administered on 17:42; Admin Dose 10,000 UNITS; Start 07/27/16 at 17:00; Status Future hold Hydralazine HCl 10 mg 10 mg Q6H PRN IV ELEVATED BLOOD PRESSURE Last administered on 07/29/16at 12:59; Admin Dose 10 MG; Start 07/29/16 at 13:00 Midazolam HCl 50 mg/Dextrose 50 ml @ 1 mls/hr TITRATE IV Last administered on 08/11/16at 04:53; Admin Dose 3 MLS/HR; Start 08/01/16 at 23:00 Fentanyl/Dextrose (D5W) 100 ml @ 2.6 mls/hr TITRATE IV Last administered on at 22:10; Admin Dose 2.6 MLS/HR; Start 08/01/16 at 23:00 Acetaminophen (Tylenol Tab) 650 mg Q6H PRN GTB PAIN1-3/FEVER ABOVE 100 Last administered on 08/11/16at 04:51; Admin Dose 650 MG; Start 08/02/16 at 15:00 Atorvastatin Calcium (Lipitor) 40 mg HS GTB Last administered on 08/10/16at 22: 00; Admin Dose 40 MG; Start 08/02/16 at 21:00 Carvedilol (Coreg) 6.25 mg BID GTB ; Start 08/02/16 at 09:00; Status Future Hold Duloxetine HCl (Cymbalta) 90 mg DAILY GTB Last administered on 08/10/16at 08:16 ; Admin Dose 90 MG; Start 08/02/16 at 09:00 Guaifenesin (Robitussin Liquid Cup) 100 mg Q4 PRN GTB COUGH; Start 08/02/16 at 09:00 Acetaminophen/ Hydrocodone Bitart ([place] (5/325)) 1 tab Q4 PRN GTB [facility]SOB Last administered on 08/08/16at 09:01; Admin Dose 1 TAB; Start 08/02/16 at 09:00 Lactobacillus Acidoph/Bulgaricus (Floranex) 1 tab DAILY GTB Last administered on 08/10/16at 08:16; Admin Dose 1 TAB; Start 08/02/16 at 09:00 Lorazepam (Ativan) 1 mg Q6H PRN GTB ANXIETY Last administered on 08/08/16at 21: 02; Admin Dose 1 MG; Start 08/02/16 at 09:00 Multivit/Ca Carb/ B Cmplx/FA/Prenat (Cheryl-Darcie) 1 tab DAILY GTB Last administered on 08/10/16at 08:16; Admin Dose 1 TAB; Start 08/02/16 at 09:00 Polyethylene Glycol (Miralax) 17 gm DAILY GTB Last administered on 08/10/16at 08:17; Admin Dose 17 GM; Start 08/02/16 at 09:00 Aspirin (Aspirin) 81 mg DAILY GTB Last administered on 08/10/16at 08:16; Admin Dose 81 MG; Start 08/02/16 at 09:00 Lansoprazole 30 mg 30 mg DAILY@06 GTB Last administered on 08/11/16at 05:30; Admin Dose 30 MG; Start 08/02/16 at 10:00 Vancomycin HCl (Vancocin) 250 ml @ 125 mls/hr Q96H IVPB Last administered on 08/07/16at 14:14; Admin Dose 125 MLS/HR; Start 08/03/16 at 14:00 Diagnostic Test (Pha) (Accucheck) 1 ea Q1H XX Last administered on 08/11/16at 07:04; Admin Dose 1 EA; Start 08/05/16 at 09:00 Dextrose (D50w Syringe) 25 ml Q15M PRN IV Till BS 80 mg/dL or above x2; Start 08/05/16 at 08:30 Dextrose (D50w Syringe) 50 ml Q15M PRN IV Till BS 80 mg/dL or above x2; Start 08/05/16 at 08:30 Moxifloxacin HCl 1 drop 1 drop TID BOTH EYES Last administered on 08/10/16 22 :56; Admin Dose 1 DROP; Start 08/05/16 at 13:00; Stop 08/12/16 at 13:00 Phenylephrine HCl 80 mg/Dextrose 250 ml @ 18.75 mls/ hr TITRATE IV ; Start at 12:30 Norepinephrine 16 mg/Dextrose 500 ml @ 1.87 mls/hr TITRATE IV Last administered on 08/05/16 14:51; Admin Dose 22.5 MLS/HR; Start 08/05/16 at 12: 00 Imipenem/ Cilastatin Sodium (Primaxin 500 Mg/ 100 ml (Pmx)) 100 ml @ 100 mls/ hr Q24H IVPB Last administered on 08/10/16 22:00; Admin Dose 100 MLS/HR; Start 08/05/16 at 21:00 Vancomycin HCl (Vancomycin Oral Syringe) 125 mg Q6 NGT Last administered on 05:30; Admin Dose 125 MG; Start 08/06/16 at 18:00 Sildenafil Citrate (Revatio) 20 mg BID PO Last administered on 08/10/16 22:00 ; Admin Dose 20 MG; Start 08/08/16 at 21:00 Warfarin Sodium (Coumadin) 2.5 mg DAILY@17 GTB Last administered on 08/10/16 17:24; Admin Dose 2.5 MG; Start 08/08/16 at 17:00 Insulin Glargine (Lantus) 15 unit HS SC Last administered on 08/10/16 22:03; Admin Dose 15 UNIT; Start 08/09/16 at 00:00 Lorazepam (Ativan) 0.5 mg Q4 PRN IV ANXIETY Last administered on 08/09/16 10: 51; Admin Dose 0.5 MG; Start 08/09/16 at 00:00 Methylprednisolone Sodium Succinate (Solu-Medrol) 20 mg DAILY IV Last administered on 08/10/16 08:17; Admin Dose 20 MG; Start 08/10/16 at 09:00 Digoxin (Digoxin) 0.125 mg DAILY@13 PO Last administered on 08/10/16 12:44; Admin Dose 0.125 MG; Start 08/10/16 at 13:00 Miscellaneous Information (*Rx Drug Level Order Reminder*) VANCO TROUGH @ 1, 300 ON ... ONCE ONCE XX ; Start 08/11/16 at 13:00; Stop 08/11/16 at 13:01 EJSSICA ROSARIO MD Aug 11, 2016 10:37
[2016-08-11 11:27] LABS: LYMPHOCYTES # 1.7 10^3/ul (0.8-2.9); MONOCYTE # 1.5 10^3/ul (0.3-0.9); NEUTROPHIL # 17.8 10^3/ul (1.6-7.5)
[2016-08-11] MEDS: DULOXETINE 30 MG CAP DR GTB SCH (11:55)
[2016-08-11] MEDS: MULTIVIT/CA CARB/B CMPLX/FA TAB GTB SCH (11:55)
[2016-08-11] MEDS: METHYLPREDNISOLONE 40 MG INJ IV SCH (11:55)
--- NOTE | 2016-08-11 11:55 | CONS ---
Date/Time of Note Date/Time of Note DATE: 08/11/16 TIME: 11:53 Assessment/Plan Assessment/Plan Additional Assessment/Plan - acute hypoxemic respiratory failure - intubated 07/31 - Pulm edema, right lower lobe infiltrate, possible aspiration pneumonia per Pulmonary (Sputum grew 08/02 rare jerry albicans) - Sepsis d/t C diff colitis - leukocytosis trending up and pt with persistent tachycardia - C diff colitis - intermittent fever - S/p hypotension after HD requiring short term Levophed 08/02 and 08/04/16-; on steroid trial. 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 - coagulopathy d/t warfarin - PAD with Hx Left BKA - Parkinson's - PCN allergic recommendations: - beta d glucan-- add caspo fungin empirically - rf/u epeat bcx/ will order procalc - F/u repeat blood culture x2 and respiratory culture (08/09 pending) - consider de-escalating abx if panculture is negative - continue IV vancomycin (07/29/16-) and Primaxin 500 mg IV q24h (08/05/16-); (s /p aztreonam 07/29-08/05) - continue PO vanco via OGT (07/1916-) - check procalcitonin (ordered) - trend WBC (on low dose steroid) Consultation Date/Type/Reason Admit Date/Time Jul 26, 2016 at 01:55 Initial Consult Date 07/29/16 Type of Consultation: cv Referring Provider: GRACIE KATHLEEN Exam/Review of Systems Vital Signs Vitals Vital Signs Date Time Temp Pulse Resp B/P Pulse Ox O2 Delivery O2 Flow Rate FiO2 08/11/16 11:23 105 16 08/11/16 11:00 84/50 100 Mechanical Ventilator 08/11/16 10:00 100.7 08/11/16 05:38 45 Intake and Output 08/10/16 08/10/16 08/11/16 15:00 23:00 07:00 Intake Total 410.0 ml 485.0 ml 7 ml Output Total 0 ml 20 ml Balance 410.0 ml 465.0 ml 7 ml Results Result Diagram: 08/11/16 0500 08/11/16 0500 Results 24 hrs Laboratory Tests Test 08/10/16 12:53 08/10/16 15:17 08/10/16 17:21 08/10/16 20:27 Bedside Glucose 130 145 96 122 Test 08/10/16 21:52 08/10/16 23:27 08/11/16 01:18 08/11/16 03:13 Bedside Glucose 129 120 107 107 Test 08/11/16 05:00 08/11/16 05:28 08/11/16 07:03 08/11/16 09:04 Anion Gap 21 H Band Neutrophils % 1.0 Basophils # Basophils % Blood Morphology Comment Blood Urea Nitrogen 83 H Calcium Level 7.3 L Carbon Dioxide Level 24 Chloride Level 98 Creatinine 3.76 H Differential Comment MANUAL DIFF Eosinophils # Eosinophils % Glucose Level 209 # Hematocrit 31.9 L Hemoglobin 10.3 L Lymphocytes # 1.7 Lymphocytes % 8.0 L Mean Corpuscular Hemoglobin 31.5 Mean Corpuscular Hemoglobin Concent 32.2 Mean Corpuscular Volume 97.9 Mean Platelet Volume 8.8 Monocytes # 1.5 H Monocytes % 7.0 Neutrophils # 17.8 H Neutrophils % 84.0 H Nucleated Red Blood Cells # Nucleated Red Blood Cells % Phosphorus Level 3.4 Platelet Count 156 Potassium Level 4.0 Red Blood Count 3.26 L Red Cell Distribution Width 15.7 H Sodium Level 139 White Blood Count 21.2 H Bedside Glucose 136 112 117 Test 08/11/16 11:12 Bedside Glucose 141 Medications Medications Current Medications Fluticasone Propionate (Flonase 0.05% Nasal) 1 spray BID NASAL Last administered on 08/10/16at 22:01; Admin Dose 1 SPRAY; Start 07/26/16 at 10:00 Epoetin [place] (Epogen (Esrd)) 10,000 units MoWeFr@17 SC Last administered on at 17:42; Admin Dose 10,000 UNITS; Start 07/27/16 at 17:00; Status Future hold Hydralazine HCl 10 mg 10 mg Q6H PRN IV ELEVATED BLOOD PRESSURE Last administered on 07/29/16at 12:59; Admin Dose 10 MG; Start 07/29/16 at 13:00 Midazolam HCl 50 mg/Dextrose 50 ml @ 1 mls/hr TITRATE IV Last administered on 08/11/16at 04:53; Admin Dose 3 MLS/HR; Start 08/01/16 at 23:00 Fentanyl/Dextrose (D5W) 100 ml @ 2.6 mls/hr TITRATE IV Last administered on at 22:10; Admin Dose 2.6 MLS/HR; Start 08/01/16 at 23:00 Acetaminophen (Tylenol Tab) 650 mg Q6H PRN GTB PAIN1-3/FEVER ABOVE 100 Last administered on 08/11/16at 04:51; Admin Dose 650 MG; Start 08/02/16 at 15:00 Atorvastatin Calcium (Lipitor) 40 mg HS GTB Last administered on 08/10/16at 22: 00; Admin Dose 40 MG; Start 08/02/16 at 21:00 Carvedilol (Coreg) 6.25 mg BID GTB ; Start 08/02/16 at 09:00; Status Future Hold Duloxetine HCl (Cymbalta) 90 mg DAILY GTB Last administered on 08/10/16at 08:16 ; Admin Dose 90 MG; Start 08/02/16 at 09:00 Guaifenesin (Robitussin Liquid Cup) 100 mg Q4 PRN GTB COUGH; Start 08/02/16 at 09:00 Acetaminophen/ Hydrocodone Bitart ([place] (5/325)) 1 tab Q4 PRN GTB WSOB Last administered on 08/08/16at 09:01; Admin Dose 1 TAB; Start 08/02/16 at 09:00 Lactobacillus Acidoph/Bulgaricus (Floranex) 1 tab DAILY GTB Last administered on 08/10/16at 08:16; Admin Dose 1 TAB; Start 08/02/16 at 09:00 Lorazepam (Ativan) 1 mg Q6H PRN GTB ANXIETY Last administered on 08/08/16at 21: 02; Admin Dose 1 MG; Start 08/02/16 at 09:00 Multivit/Ca Carb/ B Cmplx/FA/Prenat (Cheryl-Darcie) 1 tab DAILY GTB Last administered on 08/10/16at 08:16; Admin Dose 1 TAB; Start 08/02/16 at 09:00 Polyethylene Glycol (Miralax) 17 gm DAILY GTB Last administered on 08/10/16at 08:17; Admin Dose 17 GM; Start 08/02/16 at 09:00 Aspirin (Aspirin) 81 mg DAILY GTB Last administered on 08/10/16at 08:16; Admin Dose 81 MG; Start 08/02/16 at 09:00 Lansoprazole 30 mg 30 mg DAILY@06 GTB Last administered on 08/11/16at 05:30; Admin Dose 30 MG; Start 08/02/16 at 10:00 Vancomycin HCl (Vancocin) 250 ml @ 125 mls/hr Q96H IVPB Last administered on 08/07/16at 14:14; Admin Dose 125 MLS/HR; Start 08/03/16 at 14:00 Diagnostic Test (Pha) (Accucheck) 1 ea Q1H XX Last administered on 08/11/16at 11:00; Admin Dose 1 EA; Start 08/05/16 at 09:00; Stop 08/11/16 at 14:00 Dextrose (D50w Syringe) 25 ml Q15M PRN IV Till BS 80 mg/dL or above x2; Start 08/05/16 at 08:30; Stop 08/11/16 at 14:00 Dextrose (D50w Syringe) 50 ml Q15M PRN IV Till BS 80 mg/dL or above x2; Start 08/05/16 at 08:30; Stop 08/11/16 at 14:00 Moxifloxacin HCl 1 drop 1 drop TID BOTH EYES Last administered on 08/10/16at 22 :56; Admin Dose 1 DROP; Start 08/05/16 at 13:00; Stop 08/12/16 at 13:00 Phenylephrine HCl 80 mg/Dextrose 250 ml @ 18.75 mls/ hr TITRATE IV ; Start at 12:30 Norepinephrine 16 mg/Dextrose 500 ml @ 1.87 mls/hr TITRATE IV Last administered on 08/05/16at 14:51; Admin Dose 22.5 MLS/HR; Start 08/05/16 at 12: 00 Imipenem/ Cilastatin Sodium (Primaxin 500 Mg/ 100 ml (Pmx)) 100 ml @ 100 mls/ hr Q24H IVPB Last administered on 08/10/16at 22:00; Admin Dose 100 MLS/HR; Start 08/05/16 at 21:00 Vancomycin HCl (Vancomycin Oral Syringe) 125 mg Q6 NGT Last administered on at 05:30; Admin Dose 125 MG; Start 08/06/16 at 18:00 Sildenafil Citrate (Revatio) 20 mg BID PO Last administered on 08/10/16at 22:00 ; Admin Dose 20 MG; Start 08/08/16 at 21:00 Warfarin Sodium (Coumadin) 2.5 mg DAILY@17 GTB Last administered on 08/10/16at 17:24; Admin Dose 2.5 MG; Start 08/08/16 at 17:00 Lorazepam (Ativan) 0.5 mg Q4 PRN IV ANXIETY Last administered on 08/09/16at 10: 51; Admin Dose 0.5 MG; Start 08/09/16 at 00:00 Methylprednisolone Sodium Succinate (Solu-Medrol) 20 mg DAILY IV Last administered on 08/10/16at 08:17; Admin Dose 20 MG; Start 08/10/16 at 09:00 Digoxin (Digoxin) 0.125 mg DAILY@13 PO Last administered on 08/10/16at 12:44; Admin Dose 0.125 MG; Start 08/10/16 at 13:00 Miscellaneous Information (*Rx Drug Level Order Reminder*) VANCO TROUGH @ 1, 300 ON ... ONCE ONCE XX ; Start 08/11/16 at 13:00; Stop 08/11/16 at 13:01 Insulin Aspart (Novolog Insulin Pen) NOVOLOG *MODERATE* ALGORI... Q4 SC ; Start 08/11/16 at 14:00 Insulin Glargine (Lantus) 30 unit QAM SC ; Start 08/11/16 at 12:00 Miscellaneous Information 1 ea NOTE XX ; Start 08/11/16 at 12:00 Glucose (Glutose) 15 gm Q15M PRN PO DECREASED GLUCOSE; Start 08/11/16 at 12:00 Glucose (Glutose) 22.5 gm Q15M PRN PO DECREASED GLUCOSE; Start 08/11/16 at 12: 00 Dextrose (D50w Syringe) 25 ml Q15M PRN IV DECREASED GLUCOSE; Start 08/11/16 at 12:00 Dextrose (D50w Syringe) 50 ml Q15M PRN IV DECREASED GLUCOSE; Start 08/11/16 at 12:00 Glucagon (Glucagen) 1 mg Q15M PRN IM DECREASED GLUCOSE; Start 08/11/16 at 12: 00 Glucose (Glutose) 15 gm Q15M PRN BUCCAL DECREASED GLUCOSE; Start 08/11/16 at 12:00 JOYCE SOARES MD Aug 11, 2016 11:55
[2016-08-11] MEDS: SILDENAFIL 20 MG TAB PO SCH (11:56)
[2016-08-11] MEDS: ASPIRIN 81 MG TAB GTB SCH (11:56)
[2016-08-11] MEDS: LACTOBACILLUS CHEW TAB GTB SCH (11:56)
[2016-08-11] MEDS: MOXIFLOXACIN 0.5% 3 ML OPH BOTH EYES SCH ×3 (11:57→21:26)
[2016-08-11] MEDS: FLUTICASONE 0.05% 16 GM NAS SPRAY NASAL SCH ×2 (11:58→21:26)
[2016-08-11] MEDS ORDERED: GLUCOSE GEL 15 GRAM TUBE BUCCAL PRN (12:00)
[2016-08-11] MEDS ORDERED: GLUCAGON 1 MG INJ IM PRN (12:00)
[2016-08-11] MEDS ORDERED: DEXTROSE 50% 50 ML SYRINGE IV PRN (12:00)
[2016-08-11] MEDS ORDERED: GLUCOSE GEL 15 GRAM TUBE PO PRN ×2 (12:00)
[2016-08-11] MEDS: INSULIN GLARGINE [LANtus] 3 ML PEN SC SCH (12:20)
[2016-08-11] MEDS: VANCOMYCIN 1 GM in NS 250 ML IVPB SCH (14:00)
[2016-08-11] MEDS ORDERED: INSULIN ASPART [NOVOLOG] 3 ML PEN SC SCH (14:00)
[2016-08-11] MEDS ORDERED: CASPOFUNGIN 70 MG in SOD CHLORIDE 0.9% 250 ML IVPB ONE (14:00)
[2016-08-11] MEDS: DIGOXIN 0.125 MG TAB PO SCH (14:27)
[2016-08-11] MEDS ORDERED: VANCOMYCIN 1.25 GM in SOD CHLORIDE 0.9% 250 ML IVPB SCH (16:00)
[2016-08-11] MEDS: WARFARIN 2.5 MG TAB GTB SCH (18:03)
[2016-08-11] MEDS: INSULIN ASPART [NOVOLOG] 3 ML PEN SC SCH ×2 (18:04→21:51)
[2016-08-11] MEDS: FENTAnyl 1,000 MCG in DEXTROSE 5% 80 ML IV SCH (18:05)
[2016-08-11] MEDS: ATORVASTATIN 40 MG TAB GTB SCH (21:26)
[2016-08-11] MEDS: IMIPENEM-CILAST 500MG IV (PMX) 100 ML IVPB SCH (21:26)
[2016-08-12] VITALS (70 sets, daily range): BP systolic 92–137; BP diastolic 27–78; PULSE 70–113; RESP 16–38
[2016-08-12] MEDS: ALBUTEROL HFA 8 GM INHALER INH SCH ×6 (00:55→20:49)
[2016-08-12] MEDS: INSULIN ASPART [NOVOLOG] 3 ML PEN SC SCH ×6 (01:00→21:31)
[2016-08-12] MEDS: VANCOMYCIN HCL 250 MG/5ML POSYG NGT SCH ×4 (01:27→17:27)
[2016-08-12 05:51] LABS: INR 1.33; PROTIME 16.6 Sec (12.2-14.2); PT RATIO 1.3
[2016-08-12 05:53] LABS: BASOPHIL # 0.1 10^3/ul (0.0-0.1); BASOPHILS % 0.3 % (0.0-2.0); EOSINOPHILS # 0.1 10^3/ul (0.0-0.5); EOSINOPHILS % 0.3 % (0.0-7.0); HEMOGLOBIN 10.9 g/dl (14.0-18.0); LYMPHOCYTES # 1.3 10^3/ul (0.8-2.9); MEAN CORPUSCULAR HGB CONC 33.1 g/dl (32.0-37.0); MEAN CORPUSCULAR VOLUME 96.8 fl (82.0-101.0); MEAN PLATELET VOLUME 8.1 fl (7.4-10.4); MONOCYTE # 0.8 10^3/ul (0.3-0.9); MONOCYTES % 3.9 % (0.0-11.0); NEUTROPHIL # 19.2 10^3/ul (1.6-7.5); NEUTROPHILS % 89.5 % (39.0-77.0); PLATELET COUNT 171 10^3/UL (140-440); RED BLOOD COUNT 3.41 10^6/ul (4.70-6.10); RED CELL DISTRIBUTION WIDTH 14.9 % (11.5-14.5); UNCORRECTED WBC 21.4 10^3/ul (4.8-10.8); WHITE BLOOD COUNT 21.4 10^3/ul (4.8-10.8)
[2016-08-12 05:55] LABS: POTASSIUM 4.2 mmol/L (3.5-5.1)
[2016-08-12 05:57] LABS: ALBUMIN/GLOBULIN RATIO 1.07; BILIRUBIN,INDIRECT 0.2 mg/dl (0-1.1); BILIRUBIN,TOTAL 0.2 mg/dl (0.2-1.3); CREATININE 3.14 mg/dl (0.61-1.24); TOTAL PROTEIN 5.8 g/dl (6.1-8.1)
[2016-08-12 05:58] LABS: CALCIUM 7.7 mg/dl (8.4-10.2)
[2016-08-12 06:04] LABS: CONDITION 1; LH ANALYZER COMMENTS 1
[2016-08-12] MEDS: ACETAMINOPHEN 325 MG TAB GTB PRN (06:07)
[2016-08-12] MEDS: LANSOPRAZOLE 30 MG CAP GTB SCH (06:07)
[2016-08-12 06:25] LABS: THYROID STIMULATING HORMONE 1.03 MIU/L (0.465-4.680)
[2016-08-12] MEDS: POLYETHYLENE GLYCOL 17 GM PACKET GTB SCH ×2 (09:00→09:01)
[2016-08-12] MEDS: ASPIRIN 81 MG TAB GTB SCH (09:01)
[2016-08-12] MEDS: MOXIFLOXACIN 0.5% 3 ML OPH BOTH EYES SCH ×2 (09:01→12:44)
[2016-08-12] MEDS: FLUTICASONE 0.05% 16 GM NAS SPRAY NASAL SCH ×2 (09:01→21:29)
[2016-08-12] MEDS: DULOXETINE 30 MG CAP DR GTB SCH (09:01)
[2016-08-12] MEDS: MULTIVIT/CA CARB/B CMPLX/FA TAB GTB SCH (09:01)
[2016-08-12] MEDS: LACTOBACILLUS CHEW TAB GTB SCH (09:01)
[2016-08-12] MEDS: METHYLPREDNISOLONE 40 MG INJ IV SCH (09:01)
[2016-08-12] MEDS: INSULIN GLARGINE [LANtus] 3 ML PEN SC SCH (09:04)
--- NOTE | 2016-08-12 10:47 | CONS ---
Date/Time of Note Date/Time of Note DATE: 08/12/16 TIME: 10:46 Assessment/Plan Assessment/Plan Additional Assessment/Plan 1. CKD, next hd saturday pending lab tomm 2. Ventilator dependent 3. Pneumonia, abx per id Consultation Date/Type/Reason Admit Date/Time Jul 26, 2016 at 01:55 Type of Consultation: cv Referring Provider: GRACIE KATHLEEN 24 HR Interval Summary Subjective hx not possible: other (intubated) Exam/Review of Systems Vital Signs Vitals Vital Signs Date Time Temp Pulse Resp B/P Pulse Ox O2 Delivery O2 Flow Rate FiO2 08/12/16 10:30 100 21 136/62 96 08/12/16 10:00 Mechanical Ventilator 08/12/16 08:00 99.1 08/12/16 05:30 40 Intake and Output 08/11/16 08/11/16 08/12/16 15:00 23:00 07:00 Intake Total 1337.25 ml 606 ml 440 ml Output Total 2000 ml 200 ml 100 ml Balance -662.75 ml 406 ml 340 ml Exam Neck: No jvd Respiratory: diminished breath sounds Cardiovascular: regular rate and rhythm Gastrointestinal: soft Extremities: No edema Neurological: other (sedated) Results Result Diagram: 08/12/16 0520 08/12/16 0520 Results 24 hrs Laboratory Tests Test 08/11/16 11:12 08/11/16 13:13 08/11/16 13:36 08/11/16 18:01 Bedside Glucose 141 137 215 Vancomycin Level Trough 12.2 Test 08/11/16 21:25 08/12/16 01:26 08/12/16 05:20 08/12/16 05:24 Bedside Glucose 151 122 122 Alanine Aminotransferase (ALT/SGPT) 68 Albumin 3.0 L Albumin/Globulin Ratio 1.07 Alkaline Phosphatase 135 H Anion Gap 17 H Aspartate Amino Transf (AST/SGOT) 155 H Basophils # 0.1 Basophils % 0.3 Blood Morphology Comment Blood Urea Nitrogen 64 H Calcium Level 7.7 L Carbon Dioxide Level 27 Chloride Level 98 Creatinine 3.14 H Digoxin Level 1.3 Direct Bilirubin 0.00 Eosinophils # 0.1 Eosinophils % 0.3 Free Thyroxine 1.17 Globulin 2.80 Glucose Level 125 # Hematocrit 33.0 L Hemoglobin 10.9 L INR International Normalized Ratio 1.33 Indirect Bilirubin 0.2 Lymphocytes # 1.3 Lymphocytes % 6.0 L Mean Corpuscular Hemoglobin 32.0 Mean Corpuscular Hemoglobin Concent 33.1 Mean Corpuscular Volume 96.8 Mean Platelet Volume 8.1 Monocytes # 0.8 Monocytes % 3.9 Neutrophils # 19.2 H Neutrophils % 89.5 H Nucleated Red Blood Cells # 0.0 Nucleated Red Blood Cells % 0.0 Platelet Count 171 Potassium Level 4.2 Prothrombin Time 16.6 H Prothrombin Time Ratio 1.3 Red Blood Count 3.41 L Red Cell Distribution Width 14.9 H Sodium Level 138 Thyroid Stimulating Hormone (TSH) 1.030 Total Bilirubin 0.2 Total Protein 5.8 L White Blood Count 21.4 H Test 08/12/16 09:00 Bedside Glucose 154 Medications Medications Current Medications Fluticasone Propionate (Flonase 0.05% Nasal) 1 spray BID NASAL Last administered on 08/12/16 09:01; Admin Dose 1 SPRAY; Start 07/26/16 at 10:00 Epoetin [place] (Epogen (Esrd)) 10,000 units MoWeFr@17 SC Last administered on at 17:42; Admin Dose 10,000 UNITS; Start 07/27/16 at 17:00; Status Future hold Hydralazine HCl 10 mg 10 mg Q6H PRN IV ELEVATED BLOOD PRESSURE Last administered on 07/29/16at 12:59; Admin Dose 10 MG; Start 07/29/16 at 13:00 Midazolam HCl 50 mg/Dextrose 50 ml @ 1 mls/hr TITRATE IV Last administered on 08/11/16at 23:07; Admin Dose 3 MLS/HR; Start 08/01/16 at 23:00 Fentanyl/Dextrose (D5W) 100 ml @ 2.6 mls/hr TITRATE IV Last administered on at 18:05; Admin Dose 2.6 MLS/HR; Start 08/01/16 at 23:00 Acetaminophen (Tylenol Tab) 650 mg Q6H PRN GTB PAIN1-3/FEVER ABOVE 100 Last administered on 08/12/16at 06:07; Admin Dose 650 MG; Start 08/02/16 at 15:00 Atorvastatin Calcium (Lipitor) 40 mg HS GTB Last administered on 08/11/16at 21: 26; Admin Dose 40 MG; Start 08/02/16 at 21:00 Carvedilol (Coreg) 6.25 mg BID GTB ; Start 08/02/16 at 09:00; Status Future Hold Duloxetine HCl (Cymbalta) 90 mg DAILY GTB Last administered on 08/12/16 09:01 ; Admin Dose 90 MG; Start 08/02/16 at 09:00 Guaifenesin (Robitussin Liquid Cup) 100 mg Q4 PRN GTB COUGH; Start 08/02/16 at 09:00 Acetaminophen/ Hydrocodone Bitart ([place] (5/325)) 1 tab Q4 PRN GTB WSOB Last administered on 08/08/16 09:01; Admin Dose 1 TAB; Start 08/02/16 at 09:00 Lactobacillus Acidoph/Bulgaricus (Floranex) 1 tab DAILY GTB Last administered on 08/12/16 09:01; Admin Dose 1 TAB; Start 08/02/16 at 09:00 Lorazepam (Ativan) 1 mg Q6H PRN GTB ANXIETY Last administered on 08/08/16at 21: 02; Admin Dose 1 MG; Start 08/02/16 at 09:00 Multivit/Ca Carb/ B Cmplx/FA/Prenat (Cheryl-Darcie) 1 tab DAILY GTB Last administered on 08/12/16 09:01; Admin Dose 1 TAB; Start 08/02/16 at 09:00 Polyethylene Glycol (Miralax) 17 gm DAILY GTB Last administered on 08/10/16 08:17; Admin Dose 17 GM; Start 08/02/16 at 09:00 Aspirin (Aspirin) 81 mg DAILY GTB Last administered on 08/12/16 09:01; Admin Dose 81 MG; Start 08/02/16 at 09:00 Lansoprazole (Prevacid) 30 mg DAILY@06 GTB Last administered on 08/12/16 06: 07; Admin Dose 30 MG; Start 08/02/16 at 10:00 Moxifloxacin HCl 1 drop 1 drop TID BOTH EYES Last administered on 08/12/16 09 :01; Admin Dose 1 DROP; Start 08/05/16 at 13:00; Stop 08/12/16 at 13:00 Phenylephrine HCl 80 mg/Dextrose 250 ml @ 18.75 mls/ hr TITRATE IV ; Start 12/ 18/16 at 12:30 Norepinephrine 16 mg/Dextrose 500 ml @ 1.87 mls/hr TITRATE IV Last administered on 08/05/16at 14:51; Admin Dose 22.5 MLS/HR; Start 08/05/16 at 12: 00 Imipenem/ Cilastatin Sodium (Primaxin 500 Mg/ 100 ml (Pmx)) 100 ml @ 100 mls/ hr Q24H IVPB Last administered on 08/11/16at 21:26; Admin Dose 100 MLS/HR; Start 08/05/16 at 21:00 Vancomycin HCl (Vancomycin Oral Syringe) 125 mg Q6 NGT Last administered on 06:07; Admin Dose 125 MG; Start 08/06/16 at 18:00 Sildenafil Citrate (Revatio) 20 mg BID PO Last administered on 08/11/16at 11:56 ; Admin Dose 20 MG; Start 08/08/16 at 21:00; Status Future Hold Warfarin Sodium (Coumadin) 2.5 mg DAILY@17 GTB Last administered on 08/11/16at 18:03; Admin Dose 2.5 MG; Start 08/08/16 at 17:00 Lorazepam (Ativan) 0.5 mg Q4 PRN IV ANXIETY Last administered on 08/09/16at 10: 51; Admin Dose 0.5 MG; Start 08/09/16 at 00:00 Methylprednisolone Sodium Succinate (Solu-Medrol) 20 mg DAILY IV Last administered on 08/12/16at 09:01; Admin Dose 20 MG; Start 08/10/16 at 09:00 Digoxin (Digoxin) 0.125 mg DAILY@13 PO Last administered on 08/11/16at 14:27; Admin Dose 0.125 MG; Start 08/10/16 at 13:00; Status Future Hold Insulin Glargine (Lantus) 30 unit QAM SC Last administered on 08/12/16at 09:04 ; Admin Dose 30 UNIT; Start 08/11/16 at 12:00 Miscellaneous Information 1 ea NOTE XX ; Start 08/11/16 at 12:00 Glucose (Glutose) 15 gm Q15M PRN PO DECREASED GLUCOSE; Start 08/11/16 at 12:00 Glucose (Glutose) 22.5 gm Q15M PRN PO DECREASED GLUCOSE; Start 08/11/16 at 12: 00 Dextrose (D50w Syringe) 25 ml Q15M PRN IV DECREASED GLUCOSE; Start 08/11/16 at 12:00 Dextrose (D50w Syringe) 50 ml Q15M PRN IV DECREASED GLUCOSE; Start 08/11/16 at 12:00 Glucagon (Glucagen) 1 mg Q15M PRN IM DECREASED GLUCOSE; Start 08/11/16 at 12: 00 Glucose 15 gm 15 gm Q15M PRN BUCCAL DECREASED GLUCOSE; Start 08/11/16 at 12:00 Caspofungin/ Sodium Chloride (Cancidas/NS) 250 ml @ 250 mls/hr Q24H IVPB ; Start 08/12/16 at 14:00 Insulin Aspart NOVOLOG *MODERATE* ALGORI... Q4 SC Last administered on at 09:03; Admin Dose 2 UNIT; Start 08/11/16 at 17:00 Vancomycin HCl/ Sodium Chloride (Vancocin/NS) 250 ml @ 83.333 mls/ hr Q96H IVPB Last administered on 08/11/16at 18:03; Admin Dose 83.333 MLS/HR; Start at 16:00 JESSICA ROSARIO MD Aug 12, 2016 10:47
--- NOTE | 2016-08-12 10:56 | CONS ---
Date/Time of Note Date/Time of Note DATE: 08/12/16 TIME: 10:56 Assessment/Plan Assessment/Plan Additional Assessment/Plan - acute hypoxemic respiratory failure - intubated 07/31 - Pulm edema, right lower lobe infiltrate, possible aspiration pneumonia per Pulmonary (Sputum grew 08/02 rare jerry albicans) - Sepsis d/t C diff colitis - leukocytosis trending up and pt with persistent tachycardia - C diff colitis - intermittent fever - S/p hypotension after HD requiring short term Levophed 08/02 and 08/04/16-; on steroid trial. 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 - coagulopathy d/t warfarin - PAD with Hx Left BKA - Parkinson's - PCN allergic recommendations: - beta d glucan-- add caspo fungin empirically - rf/u epeat bcx/ will order procalc - F/u repeat blood culture x2 and respiratory culture (08/09 pending) - consider de-escalating abx if panculture is negative - continue IV vancomycin (07/29/16-) and Primaxin 500 mg IV q24h (08/05/16-); (s /p aztreonam 07/29-08/05) - continue PO vanco via OGT (07/1916-) - check procalcitonin (ordered) - trend WBC (on low dose steroid) Consultation Date/Type/Reason Admit Date/Time Jul 26, 2016 at 01:55 Initial Consult Date 07/29/16 Type of Consultation: cv Referring Provider: GRACIE KATHLEEN Exam/Review of Systems Vital Signs Vitals Vital Signs Date Time Temp Pulse Resp B/P Pulse Ox O2 Delivery O2 Flow Rate FiO2 08/12/16 10:30 100 21 136/62 96 08/12/16 10:00 Mechanical Ventilator 08/12/16 08:00 99.1 08/12/16 05:30 40 Intake and Output 08/11/16 08/11/16 08/12/16 15:00 23:00 07:00 Intake Total 1337.25 ml 606 ml 440 ml Output Total 2000 ml 200 ml 100 ml Balance -662.75 ml 406 ml 340 ml Results Result Diagram: 08/12/16 0520 08/12/16 0520 Results 24 hrs Laboratory Tests Test 08/11/16 11:12 08/11/16 13:13 08/11/16 13:36 08/11/16 18:01 Bedside Glucose 141 137 215 Vancomycin Level Trough 12.2 Test 08/11/16 21:25 08/12/16 01:26 08/12/16 05:20 08/12/16 05:24 Bedside Glucose 151 122 122 Alanine Aminotransferase (ALT/SGPT) 68 Albumin 3.0 L Albumin/Globulin Ratio 1.07 Alkaline Phosphatase 135 H Anion Gap 17 H Aspartate Amino Transf (AST/SGOT) 155 H Basophils # 0.1 Basophils % 0.3 Blood Morphology Comment Blood Urea Nitrogen 64 H Calcium Level 7.7 L Carbon Dioxide Level 27 Chloride Level 98 Creatinine 3.14 H Digoxin Level 1.3 Direct Bilirubin 0.00 Eosinophils # 0.1 Eosinophils % 0.3 Free Thyroxine 1.17 Globulin 2.80 Glucose Level 125 # Hematocrit 33.0 L Hemoglobin 10.9 L INR International Normalized Ratio 1.33 Indirect Bilirubin 0.2 Lymphocytes # 1.3 Lymphocytes % 6.0 L Mean Corpuscular Hemoglobin 32.0 Mean Corpuscular Hemoglobin Concent 33.1 Mean Corpuscular Volume 96.8 Mean Platelet Volume 8.1 Monocytes # 0.8 Monocytes % 3.9 Neutrophils # 19.2 H Neutrophils % 89.5 H Nucleated Red Blood Cells # 0.0 Nucleated Red Blood Cells % 0.0 Platelet Count 171 Potassium Level 4.2 Prothrombin Time 16.6 H Prothrombin Time Ratio 1.3 Red Blood Count 3.41 L Red Cell Distribution Width 14.9 H Sodium Level 138 Thyroid Stimulating Hormone (TSH) 1.030 Total Bilirubin 0.2 Total Protein 5.8 L White Blood Count 21.4 H Test 08/12/16 09:00 Bedside Glucose 154 Medications Medications Current Medications Fluticasone Propionate (Flonase 0.05% Nasal) 1 spray BID NASAL Last administered on 08/12/16at 09:01; Admin Dose 1 SPRAY; Start 07/26/16 at 10:00 Epoetin [place] (Epogen (Esrd)) 10,000 units MoWeFr@17 SC Last administered on at 17:42; Admin Dose 10,000 UNITS; Start 07/27/16 at 17:00; Status Future hold Hydralazine HCl 10 mg 10 mg Q6H PRN IV ELEVATED BLOOD PRESSURE Last administered on 07/29/16 12:59; Admin Dose 10 MG; Start 07/29/16 at 13:00 Midazolam HCl 50 mg/Dextrose 50 ml @ 1 mls/hr TITRATE IV Last administered on 08/11/16 23:07; Admin Dose 3 MLS/HR; Start 08/01/16 at 23:00 Fentanyl/Dextrose (D5W) 100 ml @ 2.6 mls/hr TITRATE IV Last administered on 18:05; Admin Dose 2.6 MLS/HR; Start 08/01/16 at 23:00 Acetaminophen (Tylenol Tab) 650 mg Q6H PRN GTB PAIN1-3/FEVER ABOVE 100 Last administered on 08/12/16 06:07; Admin Dose 650 MG; Start 08/02/16 at 15:00 Atorvastatin Calcium (Lipitor) 40 mg HS GTB Last administered on 08/11/16 21: 26; Admin Dose 40 MG; Start 08/02/16 at 21:00 Carvedilol (Coreg) 6.25 mg BID GTB ; Start 08/02/16 at 09:00; Status Future Hold Duloxetine HCl (Cymbalta) 90 mg DAILY GTB Last administered on 08/12/16 09:01 ; Admin Dose 90 MG; Start 08/02/16 at 09:00 Guaifenesin (Robitussin Liquid Cup) 100 mg Q4 PRN GTB COUGH; Start 08/02/16 at 09:00 Acetaminophen/ Hydrocodone Bitart ([place] (5/325)) 1 tab Q4 PRN GTB [facility]SOB Last administered on 08/08/16 09:01; Admin Dose 1 TAB; Start 08/02/16 at 09:00 Lactobacillus Acidoph/Bulgaricus (Floranex) 1 tab DAILY GTB Last administered on 08/12/16 09:01; Admin Dose 1 TAB; Start 08/02/16 at 09:00 Lorazepam (Ativan) 1 mg Q6H PRN GTB ANXIETY Last administered on 08/08/16at 21: 02; Admin Dose 1 MG; Start 08/02/16 at 09:00 Multivit/Ca Carb/ B Cmplx/FA/Prenat (Cheryl-Darcie) 1 tab DAILY GTB Last administered on 08/12/16 09:01; Admin Dose 1 TAB; Start 08/02/16 at 09:00 Polyethylene Glycol (Miralax) 17 gm DAILY GTB Last administered on 08/10/16 08:17; Admin Dose 17 GM; Start 08/02/16 at 09:00 Aspirin (Aspirin) 81 mg DAILY GTB Last administered on 08/12/16 09:01; Admin Dose 81 MG; Start 08/02/16 at 09:00 Lansoprazole (Prevacid) 30 mg DAILY@06 GTB Last administered on 08/12/16 06: 07; Admin Dose 30 MG; Start 08/02/16 at 10:00 Moxifloxacin HCl 1 drop 1 drop TID BOTH EYES Last administered on 08/12/16 09 :01; Admin Dose 1 DROP; Start 08/05/16 at 13:00; Stop 08/12/16 at 13:00 Phenylephrine HCl 80 mg/Dextrose 250 ml @ 18.75 mls/ hr TITRATE IV ; Start at 12:30 Norepinephrine 16 mg/Dextrose 500 ml @ 1.87 mls/hr TITRATE IV Last administered on 08/05/16at 14:51; Admin Dose 22.5 MLS/HR; Start 08/05/16 at 12: 00 Imipenem/ Cilastatin Sodium (Primaxin 500 Mg/ 100 ml (Pmx)) 100 ml @ 100 mls/ hr Q24H IVPB Last administered on 08/11/16at 21:26; Admin Dose 100 MLS/HR; Start 08/05/16 at 21:00 Vancomycin HCl (Vancomycin Oral Syringe) 125 mg Q6 NGT Last administered on 06:07; Admin Dose 125 MG; Start 08/06/16 at 18:00 Sildenafil Citrate (Revatio) 20 mg BID PO Last administered on 08/11/16at 11:56 ; Admin Dose 20 MG; Start 08/08/16 at 21:00; Status Future Hold Warfarin Sodium (Coumadin) 2.5 mg DAILY@17 GTB Last administered on 08/11/16 18:03; Admin Dose 2.5 MG; Start 08/08/16 at 17:00 Lorazepam (Ativan) 0.5 mg Q4 PRN IV ANXIETY Last administered on 08/09/16at 10: 51; Admin Dose 0.5 MG; Start 08/09/16 at 00:00 Methylprednisolone Sodium Succinate (Solu-Medrol) 20 mg DAILY IV Last administered on 08/12/16at 09:01; Admin Dose 20 MG; Start 08/10/16 at 09:00 Digoxin (Digoxin) 0.125 mg DAILY@13 PO Last administered on 08/11/16at 14:27; Admin Dose 0.125 MG; Start 08/10/16 at 13:00; Status Future Hold Insulin Glargine (Lantus) 30 unit QAM SC Last administered on 08/12/16at 09:04 ; Admin Dose 30 UNIT; Start 08/11/16 at 12:00 Miscellaneous Information 1 ea NOTE XX ; Start 08/11/16 at 12:00 Glucose (Glutose) 15 gm Q15M PRN PO DECREASED GLUCOSE; Start 08/11/16 at 12:00 Glucose (Glutose) 22.5 gm Q15M PRN PO DECREASED GLUCOSE; Start 08/11/16 at 12: 00 Dextrose (D50w Syringe) 25 ml Q15M PRN IV DECREASED GLUCOSE; Start 08/11/16 at 12:00 Dextrose (D50w Syringe) 50 ml Q15M PRN IV DECREASED GLUCOSE; Start 08/11/16 at 12:00 Glucagon (Glucagen) 1 mg Q15M PRN IM DECREASED GLUCOSE; Start 08/11/16 at 12: 00 Glucose 15 gm 15 gm Q15M PRN BUCCAL DECREASED GLUCOSE; Start 08/11/16 at 12:00 Caspofungin/ Sodium Chloride (Cancidas/NS) 250 ml @ 250 mls/hr Q24H IVPB ; Start 08/12/16 at 14:00 Insulin Aspart NOVOLOG *MODERATE* ALGORI... Q4 SC Last administered on at 09:03; Admin Dose 2 UNIT; Start 08/11/16 at 17:00 Vancomycin HCl/ Sodium Chloride (Vancocin/NS) 250 ml @ 83.333 mls/ hr Q96H IVPB Last administered on 08/11/16at 18:03; Admin Dose 83.333 MLS/HR; Start at 16:00 JOYCE SOARES MD Aug 12, 2016 10:56
--- NOTE | 2016-08-12 11:22 | PN ---
Date/Time of Note Date/Time of Note DATE: 08/12/16 TIME: 11:20 Assessment/Plan VTE Prophylaxis VTE Prophylaxis Intervention: heparin Lines/Catheters IV [facility] Mid Line Urinary Cath still in place: No Assessment/Plan Chief Complaint/Hosp Course 1. Acute respiratory failure- sp intubation on 07/31 - per pulmonary, continue ventilator support, bronchodilators, steroids. 2. Possible pneumonia- right lower lobe infiltrate- possible aspiration pneumonia per Pulmonary. Sputum grew 08/02 rare jerry albicans - per Dr. Reardon in infectious disease consultation. 3. Early sepsis d/t C diff - recurrent leukocytosis improving and low grade fever resolving. 4. End-stage renal disease hemodialysis dependent. - on HD - per Dr. Bassett in nephrology consultation 5. Diastolic congestive heart failure. Continue to remove fluid was hemodialysis. 6. Partial right internal jugular DVT. Continue Coumadin. Continue daily PT PTT. 7. C diff stool - per ID - on po Vanco - contact isolation 8. RUE cellulitis with axillary/cephalic venous thrombosis - PER id 9. Hyperglycemia- GLYCEMIC Control- stable 10. Toxic metabolic encephalopathy 11. Osteoporosis. 12. Pulmonary hypertension. Continue sildenafil. 13. Coronary artery disease with history of PCI. 14. Depression. Continue Cymbalta 15. History of left hip fracture, treated conservatively. Problems: Subjective 24 Hr Interval Summary Free Text/Dictation Patient is sedated and intubated Exam/Review of Systems Vital Signs Vitals Vital Signs Date Time Temp Pulse Resp B/P Pulse Ox O2 Delivery O2 Flow Rate FiO2 08/12/16 10:30 100 21 136/62 96 08/12/16 10:00 Mechanical Ventilator 08/12/16 08:00 99.1 08/12/16 05:30 40 Intake and Output 08/11/16 08/11/16 08/12/16 15:00 23:00 07:00 Intake Total 1337.25 ml 606 ml 440 ml Output Total 2000 ml 200 ml 100 ml Balance -662.75 ml 406 ml 340 ml Exam Constitutional: well developed Respiratory: diminished breath sounds Cardiovascular: regular rate and rhythm Gastrointestinal: non-tender, soft Results Result Diagram: 08/12/16 0520 08/12/16 0520 Results 24 hrs Laboratory Tests Test 08/11/16 13:13 08/11/16 13:36 08/11/16 18:01 08/11/16 21:25 Vancomycin Level Trough 12.2 Bedside Glucose 137 215 151 Test 08/12/16 01:26 08/12/16 05:20 08/12/16 05:24 08/12/16 09:00 Bedside Glucose 122 122 154 Alanine Aminotransferase (ALT/SGPT) 68 Albumin 3.0 L Albumin/Globulin Ratio 1.07 Alkaline Phosphatase 135 H Anion Gap 17 H Aspartate Amino Transf (AST/SGOT) 155 H Basophils # 0.1 Basophils % 0.3 Blood Morphology Comment Blood Urea Nitrogen 64 H Calcium Level 7.7 L Carbon Dioxide Level 27 Chloride Level 98 Creatinine 3.14 H Digoxin Level 1.3 Direct Bilirubin 0.00 Eosinophils # 0.1 Eosinophils % 0.3 Free Thyroxine 1.17 Globulin 2.80 Glucose Level 125 # Hematocrit 33.0 L Hemoglobin 10.9 L INR International Normalized Ratio 1.33 Indirect Bilirubin 0.2 Lymphocytes # 1.3 Lymphocytes % 6.0 L Mean Corpuscular Hemoglobin 32.0 Mean Corpuscular Hemoglobin Concent 33.1 Mean Corpuscular Volume 96.8 Mean Platelet Volume 8.1 Monocytes # 0.8 Monocytes % 3.9 Neutrophils # 19.2 H Neutrophils % 89.5 H Nucleated Red Blood Cells # 0.0 Nucleated Red Blood Cells % 0.0 Platelet Count 171 Potassium Level 4.2 Prothrombin Time 16.6 H Prothrombin Time Ratio 1.3 Red Blood Count 3.41 L Red Cell Distribution Width 14.9 H Sodium Level 138 Thyroid Stimulating Hormone (TSH) 1.030 Total Bilirubin 0.2 Total Protein 5.8 L White Blood Count 21.4 H Medications Medications Current Medications Fluticasone Propionate (Flonase 0.05% Nasal) 1 spray BID NASAL Last administered on 08/12/16at 09:01; Admin Dose 1 SPRAY; Start 07/26/16 at 10:00 Epoetin [place] (Epogen (Esrd)) 10,000 units MoWeFr@17 SC Last administered on at 17:42; Admin Dose 10,000 UNITS; Start 07/27/16 at 17:00; Status Future hold Hydralazine HCl 10 mg 10 mg Q6H PRN IV ELEVATED BLOOD PRESSURE Last administered on 07/29/16at 12:59; Admin Dose 10 MG; Start 07/29/16 at 13:00 Midazolam HCl 50 mg/Dextrose 50 ml @ 1 mls/hr TITRATE IV Last administered on 08/11/16 23:07; Admin Dose 3 MLS/HR; Start 08/01/16 at 23:00 Fentanyl/Dextrose (D5W) 100 ml @ 2.6 mls/hr TITRATE IV Last administered on 18:05; Admin Dose 2.6 MLS/HR; Start 08/01/16 at 23:00 Acetaminophen (Tylenol Tab) 650 mg Q6H PRN GTB PAIN1-3/FEVER ABOVE 100 Last administered on 08/12/16 06:07; Admin Dose 650 MG; Start 08/02/16 at 15:00 Atorvastatin Calcium (Lipitor) 40 mg HS GTB Last administered on 08/11/16 21: 26; Admin Dose 40 MG; Start 08/02/16 at 21:00 Carvedilol (Coreg) 6.25 mg BID GTB ; Start 08/02/16 at 09:00; Status Future Hold Duloxetine HCl (Cymbalta) 90 mg DAILY GTB Last administered on 08/12/16 09:01 ; Admin Dose 90 MG; Start 08/02/16 at 09:00 Guaifenesin (Robitussin Liquid Cup) 100 mg Q4 PRN GTB COUGH; Start 08/02/16 at 09:00 Acetaminophen/ Hydrocodone Bitart ([place] (5/325)) 1 tab Q4 PRN GTB WSOB Last administered on 08/08/16 09:01; Admin Dose 1 TAB; Start 08/02/16 at 09:00 Lactobacillus Acidoph/Bulgaricus (Floranex) 1 tab DAILY GTB Last administered on 08/12/16 09:01; Admin Dose 1 TAB; Start 08/02/16 at 09:00 Lorazepam (Ativan) 1 mg Q6H PRN GTB ANXIETY Last administered on 08/08/16 21: 02; Admin Dose 1 MG; Start 08/02/16 at 09:00 Multivit/Ca Carb/ B Cmplx/FA/Prenat (Cheryl-Darcie) 1 tab DAILY GTB Last administered on 08/12/16 09:01; Admin Dose 1 TAB; Start 08/02/16 at 09:00 Polyethylene Glycol (Miralax) 17 gm DAILY GTB Last administered on 08/10/16 08:17; Admin Dose 17 GM; Start 08/02/16 at 09:00 Aspirin (Aspirin) 81 mg DAILY GTB Last administered on 08/12/16 09:01; Admin Dose 81 MG; Start 08/02/16 at 09:00 Lansoprazole (Prevacid) 30 mg DAILY@06 GTB Last administered on 08/12/16 06: 07; Admin Dose 30 MG; Start 08/02/16 at 10:00 Moxifloxacin HCl 1 drop 1 drop TID BOTH EYES Last administered on 08/12/16 09 :01; Admin Dose 1 DROP; Start 08/05/16 at 13:00; Stop 08/12/16 at 13:00 Phenylephrine HCl 80 mg/Dextrose 250 ml @ 18.75 mls/ hr TITRATE IV ; Start at 12:30 Norepinephrine 16 mg/Dextrose 500 ml @ 1.87 mls/hr TITRATE IV Last administered on 08/05/16 14:51; Admin Dose 22.5 MLS/HR; Start 08/05/16 at 12: 00 Imipenem/ Cilastatin Sodium (Primaxin 500 Mg/ 100 ml (Pmx)) 100 ml @ 100 mls/ hr Q24H IVPB Last administered on 08/11/16 21:26; Admin Dose 100 MLS/HR; Start 08/05/16 at 21:00 Vancomycin HCl (Vancomycin Oral Syringe) 125 mg Q6 NGT Last administered on 06:07; Admin Dose 125 MG; Start 08/06/16 at 18:00 Sildenafil Citrate (Revatio) 20 mg BID PO Last administered on 08/11/16 11:56 ; Admin Dose 20 MG; Start 08/08/16 at 21:00; Status Future Hold Warfarin Sodium (Coumadin) 2.5 mg DAILY@17 GTB Last administered on 08/11/16 18:03; Admin Dose 2.5 MG; Start 08/08/16 at 17:00 Lorazepam (Ativan) 0.5 mg Q4 PRN IV ANXIETY Last administered on 08/09/16 10: 51; Admin Dose 0.5 MG; Start 08/09/16 at 00:00 Methylprednisolone Sodium Succinate (Solu-Medrol) 20 mg DAILY IV Last administered on 08/12/16 09:01; Admin Dose 20 MG; Start 08/10/16 at 09:00 Digoxin (Digoxin) 0.125 mg DAILY@13 PO Last administered on 08/11/16at 14:27; Admin Dose 0.125 MG; Start 08/10/16 at 13:00; Status Future Hold Insulin Glargine (Lantus) 30 unit QAM SC Last administered on 08/12/16at 09:04 ; Admin Dose 30 UNIT; Start 08/11/16 at 12:00 Miscellaneous Information 1 ea NOTE XX ; Start 08/11/16 at 12:00 Glucose (Glutose) 15 gm Q15M PRN PO DECREASED GLUCOSE; Start 08/11/16 at 12:00 Glucose (Glutose) 22.5 gm Q15M PRN PO DECREASED GLUCOSE; Start 08/11/16 at 12: 00 Dextrose (D50w Syringe) 25 ml Q15M PRN IV DECREASED GLUCOSE; Start 08/11/16 at 12:00 Dextrose (D50w Syringe) 50 ml Q15M PRN IV DECREASED GLUCOSE; Start 08/11/16 at 12:00 Glucagon (Glucagen) 1 mg Q15M PRN IM DECREASED GLUCOSE; Start 08/11/16 at 12: 00 Glucose 15 gm 15 gm Q15M PRN BUCCAL DECREASED GLUCOSE; Start 08/11/16 at 12:00 Caspofungin/ Sodium Chloride (Cancidas/NS) 250 ml @ 250 mls/hr Q24H IVPB ; Start 08/12/16 at 14:00 Insulin Aspart NOVOLOG *MODERATE* ALGORI... Q4 SC Last administered on at 09:03; Admin Dose 2 UNIT; Start 08/11/16 at 17:00 Vancomycin HCl/ Sodium Chloride (Vancocin/NS) 250 ml @ 83.333 mls/ hr Q96H IVPB Last administered on 08/11/16at 18:03; Admin Dose 83.333 MLS/HR; Start at 16:00 LESLIE PEDROZA Aug 12, 2016 11:21
[2016-08-12] MEDS: CASPOFUNGIN 35 MG in SOD CHLORIDE 0.9% 250 ML IVPB SCH (15:07)
[2016-08-12] MEDS: FENTAnyl 1,000 MCG in DEXTROSE 5% 80 ML IV SCH (16:19)
--- NOTE | 2016-08-12 17:09 | PN ---
DATE: 08/12/2016 CARDIOLOGY FOLLOWUP SUBJECTIVE: Discussed with the staff. The patient has intermittent tachycardia and atrial fibrilla tion/flutter with hemodialysis. Overall stable though now. Still remains intubated on the vent, no nresponsive. MEDICATIONS: Reviewed as per medical reconciliation, which was personally reviewed. PHYSICAL EXAMINATION: VITAL SIGNS: Temperature 99.1, T-max is 102.6, heart rate of 100, blood pressure 136/62, respirator y rate of 21. HEENT: Normocephalic, atraumatic. Status post intubation. CARDIOVASCULAR: Regular rate and rhythm, systolic murmur. PULMONARY: Mild rhonchi, diffuse. GASTROINTESTINAL: Soft. No rebound or guarding. EXTREMITIES: Left lower extremity amputation. NEUROLOGIC: Sedated, nonresponsive. LABORATORY: WBC of 21.4, hemoglobin 10.9, platelet 171. Sodium 138, potassium 4.2, BUN of 64, crea tinine 3.14, glucose 125. Albumin is 3. Digoxin level this morning was 1.3. ASSESSMENT AND PLAN: 1. Hypoxemic respiratory failure. 2. Paroxysmal atrial fibrillation and flutter with rapid ventricular response. 3. Renal failure on dialysis. 4. Pneumonia. 5. Congestive heart failure, diastolic dysfunction. 6. History of coronary artery disease and percutaneous coronary intervention. RECOMMENDATIONS: We will continue with the current cardiac care. Hemodialysis will be continued. Antibiotic is managed as per ID recommendation. Will continue to monitor on telemetry. Digoxin is on hold now. Dictated By: ARIS MIDDLETON MD AV/OLESYA Conf#: [id number] DID#: [id number] CC: CANDIDA EMERSON MD; LESLIE PEDROZA MD;*EndCC*
[2016-08-12] MEDS: WARFARIN 2.5 MG TAB GTB SCH (17:27)
[2016-08-12] MEDS: MIDAZOLAM 50 MG in DEXTROSE 5% 40 ML IV SCH (17:35)
[2016-08-12] MEDS: ATORVASTATIN 40 MG TAB GTB SCH (21:28)
[2016-08-12] MEDS: IMIPENEM-CILAST 500MG IV (PMX) 100 ML IVPB SCH (21:28)
[2016-08-13] VITALS (58 sets, daily range): BP systolic 103–152; BP diastolic 51–84; PULSE 71–104; RESP 10–35
[2016-08-13] MEDS: VANCOMYCIN HCL 250 MG/5ML POSYG NGT SCH ×4 (00:56→17:54)
[2016-08-13] MEDS: INSULIN ASPART [NOVOLOG] 3 ML PEN SC SCH ×6 (00:59→21:50)
[2016-08-13] MEDS: ALBUTEROL HFA 8 GM INHALER INH SCH ×6 (01:06→20:29)
[2016-08-13] MEDS: LANSOPRAZOLE 30 MG CAP GTB SCH (05:30)
[2016-08-13 05:56] LABS: HEMATOCRIT 32.2 % (42.0-52.0); HEMOGLOBIN 10.7 g/dl (14.0-18.0)
[2016-08-13] MEDS: MIDAZOLAM 50 MG in DEXTROSE 5% 40 ML IV SCH ×2 (05:56→22:03)
[2016-08-13 06:46] LABS: POTASSIUM 4.1 mmol/L (3.5-5.1)
[2016-08-13 06:49] LABS: CREATININE 3.81 mg/dl (0.61-1.24)
[2016-08-13 06:50] LABS: CALCIUM 7.4 mg/dl (8.4-10.2)
[2016-08-13] MEDS: MULTIVIT/CA CARB/B CMPLX/FA TAB GTB SCH (08:54)
[2016-08-13] MEDS: LACTOBACILLUS CHEW TAB GTB SCH (08:54)
[2016-08-13] MEDS: DULOXETINE 30 MG CAP DR GTB SCH (08:54)
[2016-08-13] MEDS: ASPIRIN 81 MG TAB GTB SCH (08:54)
[2016-08-13] MEDS: POLYETHYLENE GLYCOL 17 GM PACKET GTB SCH (08:55)
[2016-08-13] MEDS: FLUTICASONE 0.05% 16 GM NAS SPRAY NASAL SCH ×2 (08:55→21:47)
[2016-08-13] MEDS: METHYLPREDNISOLONE 40 MG INJ IV SCH (08:55)
[2016-08-13] MEDS: INSULIN GLARGINE [LANtus] 3 ML PEN SC SCH (09:02)
[2016-08-13] MEDS: FENTAnyl 1,000 MCG in DEXTROSE 5% 80 ML IV SCH (09:03)
--- NOTE | 2016-08-13 10:15 | CONS ---
Date/Time of Note Date/Time of Note DATE: 08/13/16 TIME: 10:12 Assessment/Plan Assessment/Plan Chief Complaint/Hosp Course - acute hypoxemic respiratory failure - intubated 07/31 - Pulm edema, right lower lobe infiltrate, possible aspiration pneumonia per Pulmonary (Sputum grew 08/02 rare jerry albicans) - Sepsis d/t C diff colitis - leukocytosis unchanged and tachycardia improved - C diff colitis - intermittent fever - S/p hypotension after HD requiring short term Levophed 08/02 and 08/04/16-; on steroid trial. 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 - coagulopathy d/t warfarin - PAD with Hx Left BKA - Parkinson's - PCN allergic Recommendations: - Discontinue IV vancomycin (07/29/16-), Day 15 - Continue Primaxin 500 mg IV q24h (08/05/16-); (s/p aztreonam 07/29-08/05) - Continue PO vanco via OGT (07/1916-) - Continue caspofungin empirically (08/12/16-) - F/u beta d glucan (pending); if negative, plan to dc caspofungin - F/u procalcitonin (08/10 & 08/11 pending) - Trend WBC (still on low dose steroid) - Above d/w Dr. Alexander - Critical care time spent: 40 minutes Problems: Consultation Date/Type/Reason Admit Date/Time Jul 26, 2016 at 01:55 Initial Consult Date 07/29/16 Type of Consultation: Infectious Disease Reason for Consultation Antibiotic management Referring Provider: GRACIE KATHLEEN 24 HR Interval Summary Free Text/Dictation Afebrile overnight, remains intubated, mildly sedated on Fentanyl and Versed, and restraints applied this AM d/t pt trying to pull at tubing per JUAN MIGUEL Cowan; still with mild diarrhea. Unable to perform ROS. Exam/Review of Systems Vital Signs Vitals Vital Signs Date Time Temp Pulse Resp B/P Pulse Ox O2 Delivery O2 Flow Rate FiO2 08/13/16 08:27 94 19 99 40 08/13/16 07:30 138/84 08/13/16 07:00 Mechanical Ventilator 08/13/16 04:00 97.6 Intake and Output 08/12/16 08/12/16 08/13/16 15:00 23:00 07:00 Intake Total 404 ml 714 ml 529 ml Output Total 50 ml 50 ml Balance 354 ml 664 ml 529 ml Exam Constitutional: frail, other (orally intubated) Head: atraumatic, normocephalic ENMT: mucosa pink and dry. No thrush noted. Neck: supple, no bruits Respiratory: Rhonchi R>L. No wheezing Cardiovascular: regular rate and rhythm, normal S1 and S2 Gastrointestinal: soft, bowel sounds present, other (OGT with TF; Lower abdominal ecchymosis spreading horizontally at pannus edge; rectal tube intact with liquid brown stool). Extremities: edema (trivial on RLE and trace on sacral area), other (LLE BKA noted; LUE AVF with + bruit/thrill; R foot cool to touch and DP difficult to palpate; left middle finger partial amputation noted) Neurological: Mildly sedated; currently not follwoing commands Skin: ecchymosis (few scattered on RLE and BUE), nl turgor, other (RUE PICC c/d /i) Results Result Diagram: 08/13/16 0540 08/13/16 0540 Results 24 hrs Laboratory Tests Test 08/12/16 12:44 08/12/16 17:28 08/12/16 21:26 08/13/16 00:59 Bedside Glucose 175 186 158 134 Test 08/13/16 05:40 08/13/16 08:57 Anion Gap 19 H Bedside Glucose 118 120 Blood Urea Nitrogen 85 H Calcium Level 7.4 L Carbon Dioxide Level 24 Chloride Level 96 L Creatinine 3.81 H Glucose Level 111 Hematocrit 32.2 L Hemoglobin 10.7 L Potassium Level 4.1 Sodium Level 135 Respiratory Culture 08/10/16 GRAM STAIN Final POLYMORPH. LEUKOCYTE 2+ GRAM POS COCCI IN PAIRS RARE MONONUCLEAR WBC 3+ RESPIRATORY CULTURE Final Organism 1 STAPHYLOCOCCUS AUREUS QUANTITY SCANT GROWTH Organism 2 JERRY ALBICANS QUANTITY SCANT GROWTH S AUREUS M.I.C. RX --------- --- CEFAZOLIN S CIPROFLOXACIN >=8 R CLINDAMYCIN >=8 R DOXYCYCLINE S ERYTHROMYCIN >=8 R LEVOFLOXACIN >=8 R OXACILLIN 0.5 S PENICILLIN-G >=0.5 R RIFAMPIN <=0.5 S VANCOMYCIN <=0.5 S TRIMETHOPRIM/SULFAMETHOXAZOLE <=10 S Blood cultures on 07/29, 08/09 & 08/10: Negative to date Respiratory culture 08/02: GRAM STAIN Final POLYMORPH. LEUKOCYTE RARE . NO ORGANISM SEEN RESPIRATORY CULTURE Final Organism 1 JERRY ALBICANS QUANTITY RARE Organism 2 NORMAL RESPIRATORY MEKHI QUANTITY SCANT GROWTH C diff 08/06: Positive MRSA screen 07/27: Negative Medications Medications Current Medications Fluticasone Propionate (Flonase 0.05% Nasal) 1 spray BID NASAL Last administered on 08/13/16at 08:55; Admin Dose 1 SPRAY; Start 07/26/16 at 10:00 Epoetin [place] (Epogen (Esrd)) 10,000 units MoWeFr@17 SC Last administered on at 17:42; Admin Dose 10,000 UNITS; Start 07/27/16 at 17:00; Status Future hold Hydralazine HCl 10 mg 10 mg Q6H PRN IV ELEVATED BLOOD PRESSURE Last administered on 07/29/16at 12:59; Admin Dose 10 MG; Start 07/29/16 at 13:00 Midazolam HCl 50 mg/Dextrose 50 ml @ 1 mls/hr TITRATE IV Last administered on 08/13/16at 05:56; Admin Dose 3 MLS/HR; Start 08/01/16 at 23:00 Fentanyl/Dextrose (D5W) 100 ml @ 2.6 mls/hr TITRATE IV Last administered on at 09:03; Admin Dose 2.6 MLS/HR; Start 08/01/16 at 23:00 Acetaminophen (Tylenol Tab) 650 mg Q6H PRN GTB PAIN1-3/FEVER ABOVE 100 Last administered on 08/12/16at 06:07; Admin Dose 650 MG; Start 08/02/16 at 15:00 Atorvastatin Calcium (Lipitor) 40 mg HS GTB Last administered on 08/12/16at 21: 28; Admin Dose 40 MG; Start 08/02/16 at 21:00 Carvedilol (Coreg) 6.25 mg BID GTB ; Start 08/02/16 at 09:00; Status Future Hold Duloxetine HCl (Cymbalta) 90 mg DAILY GTB Last administered on 08/13/16 08:54 ; Admin Dose 90 MG; Start 08/02/16 at 09:00 Guaifenesin (Robitussin Liquid Cup) 100 mg Q4 PRN GTB COUGH; Start 08/02/16 at 09:00 Acetaminophen/ Hydrocodone Bitart ([place] (5/325)) 1 tab Q4 PRN GTB WSOB Last administered on 08/08/16at 09:01; Admin Dose 1 TAB; Start 08/02/16 at 09:00 Lactobacillus Acidoph/Bulgaricus (Floranex) 1 tab DAILY GTB Last administered on 08/13/16 08:54; Admin Dose 1 TAB; Start 08/02/16 at 09:00 Lorazepam (Ativan) 1 mg Q6H PRN GTB ANXIETY Last administered on 08/08/16at 21: 02; Admin Dose 1 MG; Start 08/02/16 at 09:00 Multivit/Ca Carb/ B Cmplx/FA/Prenat (Cheryl-Darcie) 1 tab DAILY GTB Last administered on 08/13/16 08:54; Admin Dose 1 TAB; Start 08/02/16 at 09:00 Polyethylene Glycol (Miralax) 17 gm DAILY GTB Last administered on 08/10/16at 08:17; Admin Dose 17 GM; Start 08/02/16 at 09:00 Aspirin (Aspirin) 81 mg DAILY GTB Last administered on 08/13/16at 08:54; Admin Dose 81 MG; Start 08/02/16 at 09:00 Lansoprazole 30 mg 30 mg DAILY@06 GTB Last administered on 08/13/16at 05:30; Admin Dose 30 MG; Start 08/02/16 at 10:00 Phenylephrine HCl 80 mg/Dextrose 250 ml @ 18.75 mls/ hr TITRATE IV ; Start at 12:30 Norepinephrine 16 mg/Dextrose 500 ml @ 1.87 mls/hr TITRATE IV Last administered on 08/05/16at 14:51; Admin Dose 22.5 MLS/HR; Start 08/05/16 at 12: 00 Imipenem/ Cilastatin Sodium (Primaxin 500 Mg/ 100 ml (Pmx)) 100 ml @ 100 mls/ hr Q24H IVPB Last administered on 08/12/16at 21:28; Admin Dose 100 MLS/HR; Start 08/05/16 at 21:00 Vancomycin HCl (Vancomycin Oral Syringe) 125 mg Q6 NGT Last administered on at 05:30; Admin Dose 125 MG; Start 08/06/16 at 18:00 Sildenafil Citrate (Revatio) 20 mg BID PO Last administered on 08/11/16at 11:56 ; Admin Dose 20 MG; Start 08/08/16 at 21:00; Status Future Hold Warfarin Sodium (Coumadin) 2.5 mg DAILY@17 GTB Last administered on 08/12/16at 17:27; Admin Dose 2.5 MG; Start 08/08/16 at 17:00 Lorazepam (Ativan) 0.5 mg Q4 PRN IV ANXIETY Last administered on 08/09/16at 10: 51; Admin Dose 0.5 MG; Start 08/09/16 at 00:00 Methylprednisolone Sodium Succinate (Solu-Medrol) 20 mg DAILY IV Last administered on 08/13/16at 08:55; Admin Dose 20 MG; Start 08/10/16 at 09:00 Digoxin (Digoxin) 0.125 mg DAILY@13 PO Last administered on 08/11/16at 14:27; Admin Dose 0.125 MG; Start 08/10/16 at 13:00; Status Future Hold Insulin Glargine (Lantus) 30 unit QAM SC Last administered on 08/13/16at 09:02 ; Admin Dose 30 UNIT; Start 08/11/16 at 12:00 Miscellaneous Information 1 ea NOTE XX ; Start 08/11/16 at 12:00 Glucose (Glutose) 15 gm Q15M PRN PO DECREASED GLUCOSE; Start 08/11/16 at 12:00 Glucose (Glutose) 22.5 gm Q15M PRN PO DECREASED GLUCOSE; Start 08/11/16 at 12: 00 Dextrose (D50w Syringe) 25 ml Q15M PRN IV DECREASED GLUCOSE; Start 08/11/16 at 12:00 Dextrose (D50w Syringe) 50 ml Q15M PRN IV DECREASED GLUCOSE; Start 08/11/16 at 12:00 Glucagon (Glucagen) 1 mg Q15M PRN IM DECREASED GLUCOSE; Start 08/11/16 at 12: 00 Glucose 15 gm 15 gm Q15M PRN BUCCAL DECREASED GLUCOSE; Start 08/11/16 at 12:00 Caspofungin/ Sodium Chloride (Cancidas/NS) 250 ml @ 250 mls/hr Q24H IVPB Last administered on 08/12/16at 15:07; Admin Dose 250 MLS/HR; Start 08/12/16 at 14: 00 Insulin Aspart NOVOLOG *MODERATE* ALGORI... Q4 SC Last administered on at 21:31; Admin Dose 2 UNIT; Start 08/11/16 at 17:00 Vancomycin HCl/ Sodium Chloride (Vancocin/NS) 250 ml @ 83.333 mls/ hr Q96H IVPB Last administered on 08/11/16at 18:03; Admin Dose 83.333 MLS/HR; Start at 16:00 Procedures Procedures CXR 08/10/16: Hypoinflated lungs with atelectasis in the bilateral lower lobes. Stable perihilar infiltrates in the right upper lobe. CT Brain 07/30/16: Examination is degraded due to patient motion artifact. No evidence of focal hematoma, mass effect, or definite acute ischemic changes. Moderate chronic-appearing microvascular ischemic changes of the supratentorial white matter. Venous study 07/26/16: Old partial DVT of the right internal jugular vein. BLE venous study 07/26/16: No evidence of deep vein thrombosis involving either lower extremity. VQ scan 07/26/16: 1. No evidence of deep vein thrombosis involving either lower extremity. JERICHO CRABTREE NP Aug 13, 2016 10:15
--- NOTE | 2016-08-13 10:16 | PN ---
DATE: 08/11/2016 CARDIOLOGY FOLLOWUP SUBJECTIVE: Discussed with the staff. This patient is seen on the vent, nonresponsive. Has had mu ltiple episodes of wide complex tachycardia, most likely consistent with SVT with aberrancy. Rhythm strip was reviewed and discussed with the staff. The patient's arrhythmia happened actually during the dialysis, has resolved now after dialysis is completed. MEDICATIONS: Reviewed as per medical reconciliation, was personally reviewed which include: Insuli n, vancomycin, and caspofungin, digoxin 0.125, Coumadin 2.5. Otherwise, she had imipenem. PHYSICAL EXAMINATION: VITAL SIGNS: Temperature 99.7, heart rate of 102, blood pressure 104/49, respiratory rate of 22, sa turating 100%. HEENT: Normocephalic, atraumatic. A thin gentleman. Status post tracheostomy, on the vent. CARDIOVASCULAR: Regular rate and rhythm. Systolic murmur. PULMONARY: Diffuse rhonchi. GASTROINTESTINAL: Soft, nontender. EXTREMITIES: Left below the knee amputation. NEUROLOGIC: Lethargic. IMAGING: Chest x-ray shows hyperinflated lungs. LABORATORY: Showed WBC of 21.2, hemoglobin 10.3, platelet 156. Sodium 139, potassium 4, BUN of 83, creatinine 3.76, glucose of 209. ASSESSMENT AND PLAN: 1. Hypoxemia with respiratory failure, status post tracheostomy, on the vent. 2. Sepsis. 3. Mildly abnormal troponin . 4. Partial right internal jugular vein deep venous thrombosis. 5. Congestive heart failure with diastolic dysfunction. 6. History of renal failure on dialysis. 7. History of coronary artery disease and percutaneous coronary intervention. 8. Diabetes. 9. Peripheral vascular disease status post left below knee amputation. 10. Pulmonary hypertension. 11. Hypotension. RECOMMENDATIONS: I will hold the digoxin for now until we can get a digoxin level. I will make thony e the patient does not go into digoxin toxicity. Beta shivani as tolerated, to be given. Anticoagu lation with Coumadin was started. INR to be checked and adjusted accordingly. Antibiotic is manage d as per ID recommendation, vent support will be continued with as well. We will hold the Revatio f or now until blood pressure stabilizes. Continue with the ICU care. Dictated By: ARIS MIDDLETON MD AV/OLESYA Conf#: [id number] DID#: [id number] CC: JESSICA ROSARIO MD; CANDIDA EMERSON MD;*End*
--- NOTE | 2016-08-13 10:31 | CONS ---
Date/Time of Note Date/Time of Note DATE: 08/13/16 TIME: 10:30 Assessment/Plan Assessment/Plan Additional Assessment/Plan 1. CKD with next hd scheduled tomm 2. Ventilator dependent, attempted extubation per pul 3. Pul infiltrate, abx per id Consultation Date/Type/Reason Admit Date/Time Jul 26, 2016 at 01:55 Type of Consultation: Infectious Disease Referring Provider: GRACIE KATHLEEN 24 HR Interval Summary Constitutional: other (intubated, alert) Exam/Review of Systems Vital Signs Vitals Vital Signs Date Time Temp Pulse Resp B/P Pulse Ox O2 Delivery O2 Flow Rate FiO2 08/13/16 08:27 94 19 99 40 08/13/16 07:30 138/84 08/13/16 07:00 Mechanical Ventilator 08/13/16 04:00 97.6 Intake and Output 08/12/16 08/12/16 08/13/16 15:00 23:00 07:00 Intake Total 404 ml 714 ml 529 ml Output Total 50 ml 50 ml Balance 354 ml 664 ml 529 ml Exam Neck: No jvd Respiratory: diminished breath sounds, other (rhonchi bilat) Cardiovascular: regular rate and rhythm Gastrointestinal: soft Extremities: No edema Results Result Diagram: 08/13/16 0540 08/13/16 0540 Results 24 hrs Laboratory Tests Test 08/12/16 12:44 08/12/16 17:28 08/12/16 21:26 08/13/16 00:59 Bedside Glucose 175 186 158 134 Test 08/13/16 05:40 08/13/16 08:57 Anion Gap 19 H Bedside Glucose 118 120 Blood Urea Nitrogen 85 H Calcium Level 7.4 L Carbon Dioxide Level 24 Chloride Level 96 L Creatinine 3.81 H Glucose Level 111 Hematocrit 32.2 L Hemoglobin 10.7 L Potassium Level 4.1 Sodium Level 135 Medications Medications Current Medications Fluticasone Propionate (Flonase 0.05% Nasal) 1 spray BID NASAL Last administered on 08/13/16at 08:55; Admin Dose 1 SPRAY; Start 07/26/16 at 10:00 Epoetin [place] (Epogen (Esrd)) 10,000 units MoWeFr@17 SC Last administered on at 17:42; Admin Dose 10,000 UNITS; Start 07/27/16 at 17:00; Status Future hold Hydralazine HCl 10 mg 10 mg Q6H PRN IV ELEVATED BLOOD PRESSURE Last administered on 07/29/16 12:59; Admin Dose 10 MG; Start 07/29/16 at 13:00 Midazolam HCl 50 mg/Dextrose 50 ml @ 1 mls/hr TITRATE IV Last administered on 08/13/16 05:56; Admin Dose 3 MLS/HR; Start 08/01/16 at 23:00 Fentanyl/Dextrose (D5W) 100 ml @ 2.6 mls/hr TITRATE IV Last administered on 09:03; Admin Dose 2.6 MLS/HR; Start 08/01/16 at 23:00 Acetaminophen (Tylenol Tab) 650 mg Q6H PRN GTB PAIN1-3/FEVER ABOVE 100 Last administered on 08/12/16 06:07; Admin Dose 650 MG; Start 08/02/16 at 15:00 Atorvastatin Calcium (Lipitor) 40 mg HS GTB Last administered on 08/12/16 21: 28; Admin Dose 40 MG; Start 08/02/16 at 21:00 Carvedilol (Coreg) 6.25 mg BID GTB ; Start 08/02/16 at 09:00; Status Future Hold Duloxetine HCl (Cymbalta) 90 mg DAILY GTB Last administered on 08/13/16at 08:54 ; Admin Dose 90 MG; Start 08/02/16 at 09:00 Guaifenesin (Robitussin Liquid Cup) 100 mg Q4 PRN GTB COUGH; Start 08/02/16 at 09:00 Acetaminophen/ Hydrocodone Bitart ([place] (5/325)) 1 tab Q4 PRN GTB WSOB Last administered on 08/08/16at 09:01; Admin Dose 1 TAB; Start 08/02/16 at 09:00 Lactobacillus Acidoph/Bulgaricus (Floranex) 1 tab DAILY GTB Last administered on 08/13/16at 08:54; Admin Dose 1 TAB; Start 08/02/16 at 09:00 Lorazepam (Ativan) 1 mg Q6H PRN GTB ANXIETY Last administered on 08/08/16at 21: 02; Admin Dose 1 MG; Start 08/02/16 at 09:00 Multivit/Ca Carb/ B Cmplx/FA/Prenat (Cheryl-Darcie) 1 tab DAILY GTB Last administered on 08/13/16 08:54; Admin Dose 1 TAB; Start 08/02/16 at 09:00 Polyethylene Glycol (Miralax) 17 gm DAILY GTB Last administered on 08/10/16 08:17; Admin Dose 17 GM; Start 08/02/16 at 09:00 Aspirin (Aspirin) 81 mg DAILY GTB Last administered on 08/13/16 08:54; Admin Dose 81 MG; Start 08/02/16 at 09:00 Lansoprazole 30 mg 30 mg DAILY@06 GTB Last administered on 08/13/16 05:30; Admin Dose 30 MG; Start 08/02/16 at 10:00 Phenylephrine HCl 80 mg/Dextrose 250 ml @ 18.75 mls/ hr TITRATE IV ; Start at 12:30 Norepinephrine 16 mg/Dextrose 500 ml @ 1.87 mls/hr TITRATE IV Last administered on 08/05/16 14:51; Admin Dose 22.5 MLS/HR; Start 08/05/16 at 12: 00 Imipenem/ Cilastatin Sodium (Primaxin 500 Mg/ 100 ml (Pmx)) 100 ml @ 100 mls/ hr Q24H IVPB Last administered on 08/12/16 21:28; Admin Dose 100 MLS/HR; Start 08/05/16 at 21:00 Vancomycin HCl (Vancomycin Oral Syringe) 125 mg Q6 NGT Last administered on 05:30; Admin Dose 125 MG; Start 08/06/16 at 18:00 Sildenafil Citrate (Revatio) 20 mg BID PO Last administered on 08/11/16 11:56 ; Admin Dose 20 MG; Start 08/08/16 at 21:00; Status Future Hold Warfarin Sodium (Coumadin) 2.5 mg DAILY@17 GTB Last administered on 08/12/16 17:27; Admin Dose 2.5 MG; Start 08/08/16 at 17:00 Lorazepam (Ativan) 0.5 mg Q4 PRN IV ANXIETY Last administered on 08/09/16 10: 51; Admin Dose 0.5 MG; Start 08/09/16 at 00:00 Methylprednisolone Sodium Succinate (Solu-Medrol) 20 mg DAILY IV Last administered on 08/13/16 08:55; Admin Dose 20 MG; Start 08/10/16 at 09:00 Digoxin (Digoxin) 0.125 mg DAILY@13 PO Last administered on 08/11/16at 14:27; Admin Dose 0.125 MG; Start 08/10/16 at 13:00; Status Future Hold Insulin Glargine (Lantus) 30 unit QAM SC Last administered on 08/13/16at 09:02 ; Admin Dose 30 UNIT; Start 08/11/16 at 12:00 Miscellaneous Information 1 ea NOTE XX ; Start 08/11/16 at 12:00 Glucose (Glutose) 15 gm Q15M PRN PO DECREASED GLUCOSE; Start 08/11/16 at 12:00 Glucose (Glutose) 22.5 gm Q15M PRN PO DECREASED GLUCOSE; Start 08/11/16 at 12: 00 Dextrose (D50w Syringe) 25 ml Q15M PRN IV DECREASED GLUCOSE; Start 08/11/16 at 12:00 Dextrose (D50w Syringe) 50 ml Q15M PRN IV DECREASED GLUCOSE; Start 08/11/16 at 12:00 Glucagon (Glucagen) 1 mg Q15M PRN IM DECREASED GLUCOSE; Start 08/11/16 at 12: 00 Glucose 15 gm 15 gm Q15M PRN BUCCAL DECREASED GLUCOSE; Start 08/11/16 at 12:00 Caspofungin/ Sodium Chloride (Cancidas/NS) 250 ml @ 250 mls/hr Q24H IVPB Last administered on 08/12/16at 15:07; Admin Dose 250 MLS/HR; Start 08/12/16 at 14: 00 Insulin Aspart NOVOLOG *MODERATE* ALGORI... Q4 SC Last administered on at 21:31; Admin Dose 2 UNIT; Start 08/11/16 at 17:00 Vancomycin HCl/ Sodium Chloride (Vancocin/NS) 250 ml @ 83.333 mls/ hr Q96H IVPB Last administered on 08/11/16at 18:03; Admin Dose 83.333 MLS/HR; Start at 16:00 JESSICA ROSARIO MD Aug 13, 2016 10:31
--- NOTE | 2016-08-13 11:00 | PN ---
Date/Time of Note Date/Time of Note DATE: 08/13/16 TIME: 10:49 Assessment/Plan VTE Prophylaxis VTE Prophylaxis Intervention: other Lines/Catheters IV Catheter Type (from Nrs): Mid Line Urinary Cath still in place: No Assessment/Plan Assessment/Plan 1. Acute respiratory failure- sp intubation on 07/31 - per pulmonary, continue ventilator support, bronchodilators, steroids. 2. Possible pneumonia- right lower lobe infiltrate- possible aspiration pneumonia per Pulmonary. Sputum grew 08/02 rare jerry albicans - per Dr. Reardon in infectious disease consultation. 3. Early sepsis d/t C diff - recurrent leukocytosis improving and low grade fever resolving. 4. End-stage renal disease hemodialysis dependent. - on HD - per Dr. Bassett in nephrology consultation 5. Diastolic congestive heart failure. Continue to remove fluid was hemodialysis. 6. Partial right internal jugular DVT. Continue Coumadin. Continue daily PT PTT. 7. C diff stool - per ID - on po Vanco - contact isolation 8. RUE cellulitis with axillary/cephalic venous thrombosis - PER id 9. Hyperglycemia- GLYCEMIC Control- stable 10. Toxic metabolic encephalopathy 11. Osteoporosis. 12. Pulmonary hypertension. Continue sildenafil. 13. Coronary artery disease with history of PCI. 14. Depression. Continue Cymbalta 15. History of left hip fracture, treated conservatively. Protonix for peptic ulcer disease prophylaxis Further recommendations based on clinical course. Total critical time spend = 30 mins Plan of care discussed with Dr. Miramontes. Subjective 24 Hr Interval Summary Free Text/Dictation NAD.Remains intubated. agitated- on restrains now. Remains on versed and prpafol. staff talked with sister Kezia regarding Code status and possible trach placement she would like to talk to Dr Miramontes regarding this matter. Plan for CPAP toady, unable to tolerate in past. dw staff Subjective hx not possible: pt non-verbal Constitutional: requiring IVF, requiring O2 Exam/Review of Systems Vital Signs Vitals Vital Signs Date Time Temp Pulse Resp B/P Pulse Ox O2 Delivery O2 Flow Rate FiO2 08/13/16 08:27 94 19 99 40 08/13/16 07:30 138/84 08/13/16 07:00 Mechanical Ventilator 08/13/16 04:00 97.6 Intake and Output 08/12/16 08/12/16 08/13/16 15:00 23:00 07:00 Intake Total 404 ml 714 ml 529 ml Output Total 50 ml 50 ml Balance 354 ml 664 ml 529 ml Exam Constitutional: frail Eyes: nl sclera ENMT: nl external ears & nose Neck: non-tender Respiratory: diminished breath sounds, other Cardiovascular: nl pulses Gastrointestinal: non-tender, soft Musculoskeletal: other Extremities: other Neurological: lethargic Results Result Diagram: 08/13/16 0540 08/13/16 0540 Results 24 hrs Laboratory Tests Test 08/12/16 12:44 08/12/16 17:28 08/12/16 21:26 08/13/16 00:59 Bedside Glucose 175 186 158 134 Test 08/13/16 05:40 08/13/16 08:57 Anion Gap 19 H Bedside Glucose 118 120 Blood Urea Nitrogen 85 H Calcium Level 7.4 L Carbon Dioxide Level 24 Chloride Level 96 L Creatinine 3.81 H Glucose Level 111 Hematocrit 32.2 L Hemoglobin 10.7 L Potassium Level 4.1 Sodium Level 135 Medications Medications Current Medications Fluticasone Propionate (Flonase 0.05% Nasal) 1 spray BID NASAL Last administered on 08/13/16at 08:55; Admin Dose 1 SPRAY; Start 07/26/16 at 10:00 Epoetin [place] (Epogen (Esrd)) 10,000 units MoWeFr@17 SC Last administered on at 17:42; Admin Dose 10,000 UNITS; Start 07/27/16 at 17:00; Status Future hold Hydralazine HCl 10 mg 10 mg Q6H PRN IV ELEVATED BLOOD PRESSURE Last administered on 07/29/16at 12:59; Admin Dose 10 MG; Start 07/29/16 at 13:00 Midazolam HCl 50 mg/Dextrose 50 ml @ 1 mls/hr TITRATE IV Last administered on 08/13/16at 05:56; Admin Dose 3 MLS/HR; Start 08/01/16 at 23:00 Fentanyl/Dextrose (D5W) 100 ml @ 2.6 mls/hr TITRATE IV Last administered on at 09:03; Admin Dose 2.6 MLS/HR; Start 08/01/16 at 23:00 Acetaminophen (Tylenol Tab) 650 mg Q6H PRN GTB PAIN1-3/FEVER ABOVE 100 Last administered on 08/12/16at 06:07; Admin Dose 650 MG; Start 08/02/16 at 15:00 Atorvastatin Calcium (Lipitor) 40 mg HS GTB Last administered on 08/12/16at 21: 28; Admin Dose 40 MG; Start 08/02/16 at 21:00 Carvedilol (Coreg) 6.25 mg BID GTB ; Start 08/02/16 at 09:00; Status Future Hold Duloxetine HCl (Cymbalta) 90 mg DAILY GTB Last administered on 08/13/16at 08:54 ; Admin Dose 90 MG; Start 08/02/16 at 09:00 Guaifenesin (Robitussin Liquid Cup) 100 mg Q4 PRN GTB COUGH; Start 08/02/16 at 09:00 Acetaminophen/ Hydrocodone Bitart ([place] (5/325)) 1 tab Q4 PRN GTB WSOB Last administered on 08/08/16at 09:01; Admin Dose 1 TAB; Start 08/02/16 at 09:00 Lactobacillus Acidoph/Bulgaricus (Floranex) 1 tab DAILY GTB Last administered on 08/13/16at 08:54; Admin Dose 1 TAB; Start 08/02/16 at 09:00 Lorazepam (Ativan) 1 mg Q6H PRN GTB ANXIETY Last administered on 08/08/16at 21: 02; Admin Dose 1 MG; Start 08/02/16 at 09:00 Multivit/Ca Carb/ B Cmplx/FA/Prenat (Cheryl-Darcie) 1 tab DAILY GTB Last administered on 08/13/16at 08:54; Admin Dose 1 TAB; Start 08/02/16 at 09:00 Polyethylene Glycol (Miralax) 17 gm DAILY GTB Last administered on 08/10/16at 08:17; Admin Dose 17 GM; Start 08/02/16 at 09:00 Aspirin (Aspirin) 81 mg DAILY GTB Last administered on 08/13/16at 08:54; Admin Dose 81 MG; Start 08/02/16 at 09:00 Lansoprazole 30 mg 30 mg DAILY@06 GTB Last administered on 08/13/16at 05:30; Admin Dose 30 MG; Start 08/02/16 at 10:00 Phenylephrine HCl 80 mg/Dextrose 250 ml @ 18.75 mls/ hr TITRATE IV ; Start at 12:30 Norepinephrine 16 mg/Dextrose 500 ml @ 1.87 mls/hr TITRATE IV Last administered on 08/05/16at 14:51; Admin Dose 22.5 MLS/HR; Start 08/05/16 at 12: 00 Imipenem/ Cilastatin Sodium (Primaxin 500 Mg/ 100 ml (Pmx)) 100 ml @ 100 mls/ hr Q24H IVPB Last administered on 08/12/16at 21:28; Admin Dose 100 MLS/HR; Start 08/05/16 at 21:00 Vancomycin HCl (Vancomycin Oral Syringe) 125 mg Q6 NGT Last administered on at 05:30; Admin Dose 125 MG; Start 08/06/16 at 18:00 Sildenafil Citrate (Revatio) 20 mg BID PO Last administered on 08/11/16at 11:56 ; Admin Dose 20 MG; Start 08/08/16 at 21:00; Status Future Hold Warfarin Sodium (Coumadin) 2.5 mg DAILY@17 GTB Last administered on 08/12/16at 17:27; Admin Dose 2.5 MG; Start 08/08/16 at 17:00 Lorazepam (Ativan) 0.5 mg Q4 PRN IV ANXIETY Last administered on 08/09/16at 10: 51; Admin Dose 0.5 MG; Start 08/09/16 at 00:00 Methylprednisolone Sodium Succinate (Solu-Medrol) 20 mg DAILY IV Last administered on 08/13/16at 08:55; Admin Dose 20 MG; Start 08/10/16 at 09:00 Digoxin (Digoxin) 0.125 mg DAILY@13 PO Last administered on 08/11/16at 14:27; Admin Dose 0.125 MG; Start 08/10/16 at 13:00; Status Future Hold Insulin Glargine (Lantus) 30 unit QAM SC Last administered on 08/13/16at 09:02 ; Admin Dose 30 UNIT; Start 08/11/16 at 12:00 Miscellaneous Information 1 ea NOTE XX ; Start 08/11/16 at 12:00 Glucose (Glutose) 15 gm Q15M PRN PO DECREASED GLUCOSE; Start 08/11/16 at 12:00 Glucose (Glutose) 22.5 gm Q15M PRN PO DECREASED GLUCOSE; Start 08/11/16 at 12: 00 Dextrose (D50w Syringe) 25 ml Q15M PRN IV DECREASED GLUCOSE; Start 08/11/16 at 12:00 Dextrose (D50w Syringe) 50 ml Q15M PRN IV DECREASED GLUCOSE; Start 08/11/16 at 12:00 Glucagon (Glucagen) 1 mg Q15M PRN IM DECREASED GLUCOSE; Start 08/11/16 at 12: 00 Glucose 15 gm 15 gm Q15M PRN BUCCAL DECREASED GLUCOSE; Start 08/11/16 at 12:00 Caspofungin/ Sodium Chloride (Cancidas/NS) 250 ml @ 250 mls/hr Q24H IVPB Last administered on 08/12/16at 15:07; Admin Dose 250 MLS/HR; Start 08/12/16 at 14: 00 Insulin Aspart NOVOLOG *MODERATE* ALGORI... Q4 SC Last administered on at 21:31; Admin Dose 2 UNIT; Start 08/11/16 at 17:00 Vancomycin HCl/ Sodium Chloride (Vancocin/NS) 250 ml @ 83.333 mls/ hr Q96H IVPB Last administered on 08/11/16at 18:03; Admin Dose 83.333 MLS/HR; Start at 16:00 GRACIE KATHLEEN Aug 13, 2016 10:59
[2016-08-13] MEDS: CASPOFUNGIN 35 MG in SOD CHLORIDE 0.9% 250 ML IVPB SCH (13:49)
[2016-08-13] MEDS ORDERED: LIDOCAINE 1% (MDV) 20 ML INJ SC ONE (15:00)
--- NOTE | 2016-08-13 16:22 | PN ---
DATE: 08/13/2016 CARDIOLOGY FOLLOWUP SUBJECTIVE: The patient remains in sinus rhythm. Mostly sinus with frequent PACs, but atrial flutter noted. Discussed with the staff. The patient is still intubated on the vent. MEDICATIONS: Reviewed. PHYSICAL EXAMINATION: VITAL SIGNS: Temperature 97.4, heart rate of 104, blood pressure 135/65, respiration rate of 18, sa turating 99%. HEENT: Normocephalic, atraumatic. Pupils are equal. Status post intubation on the vent. CARDIOVASCULAR: Regular rate and rhythm. PULMONARY: With mild rhonchi. GASTROINTESTINAL: Soft, nontender. EXTREMITIES: Left lower extremity amputation. NEUROLOGIC: Opens his eyes, does not answer my questions. LABORATORY: WBC of 21.4, hemoglobin 10.9, platelet 121. Sodium 135, potassium 4.1, BUN of 35, crea tinine of 3.81, glucose of 111. ASSESSMENT AND PLAN: 1. Hypoxic respiratory failure, status post intubation and vent dependent. 2. Sepsis. 3. Paroxysmal supraventricular tachycardia, currently stable. 4. Renal failure on dialysis. 5. Partial right jugular vein thrombosis. 6. History of congestive heart failure secondary to diastolic dysfunction. 7. History of coronary artery disease and percutaneous coronary intervention. 8. Diabetes. 9. Peripheral vascular disease status post left lower extremity amputation. 10. History pulmonary hypertension. RECOMMENDATIONS: The patient currently remains in sinus rhythm. We will continue with the current cardiac care. Digoxin is still on hold. Respiratory care as per peoplesoft hr developer. Antibiotic is jhony ged as per ID. blood pressure is stable on Coreg for now, will continue. I will discontinue t he digoxin altogether for now. Dictated By: ARIS MIDDLETON MD AV/OLESYA Conf#: [id number] DID#: [id number] CC: CANDIDA EMERSON MD;*End*
--- NOTE | 2016-08-13 17:24 | RADRPT ---
PROCEDURE: Ultrasound fluoroscopic guided PICC line placement CLINICAL INDICATION: PICC line placement COMPARISON: Ultrasound guided PICC line placement from 08/05/2016 TECHNIQUE: Real-time high-resolution ultrasound imaging in transverse and longitudinal planes was pe rformed in the upper arm to evaluate venous size and location for needle insertion during PICC line placement. Rolling Down Machine Operator images were submitted. FINDINGS: Focused ultrasound imaging of the upper arm was performed for placement of PICC line. No radiologist was present for the procedure. No diagnosis was made from the images. IMPRESSION: 1. Focused ultrasound for placement of PICC line in the right upper extremity. RPTAT: AA Physician Gideon Date Time Electronically viewed and signed by Physician Gideon on 08/13/2016 17:24 /
--- NOTE | 2016-08-13 17:26 | PN ---
DATE: ADDENDUM: I met with the patient's sister and [id number], and the patient's condition was discussed. I exp lained to them that the patient may need a tracheostomy and G-tube placement and they have agreed in case patient cannot be weaned off the ventilator support. They also made the patient DNR, but they are requesting that if the patient has hypotension requiring vasopressor, the patient can be given vasopressor agent. The patient has failed multiple weaning trial, currently is again on weaning mod e. Dictated By: CANDIDA SUTTON/OLESYA Conf#: [id number] DID#: [id number]
--- NOTE | 2016-08-13 17:27 | RADRPT ---
PROCEDURE: XR Chest. CLINICAL INDICATION: PICC line placement TECHNIQUE: Chest AP portable. COMPARISON: 08/10/2016 FINDINGS: Right arm PICC line with tip in the left subclavian vein (reposition). Endotracheal tube 3-4 cm abo ve the sofie. Nasogastric tube in the stomach. The mediastinal structures are unremarkable. The heart is normal in size and configuration. The pu lmonary vascularity is normal. There are low lung volumes. No consolidation is identified. The pl eural spaces are unremarkable. The axial skeleton is unremarkable. IMPRESSION: Right arm PICC line with tip in left subclavian vein (reposition) Low lung volumes. No active intrathoracic disease RPTAT: HGDB .Judson Metzger MD, MD Date Time Electronically viewed and signed by .Judson Metzger MD, on 08/13/2016 17:27 .B/
--- NOTE | 2016-08-13 17:38 | RADRPT ---
PROCEDURE: XR Chest. CLINICAL INDICATION: Post PICC line placement TECHNIQUE: AP Portable chest. COMPARISON: Portable chest x-ray 08/13 to 1016 at 05:17 p.m. FINDINGS: The soft tissues and bones are remarkable for repositioning of the right PICC catheter with tip now in the superior vena cava right atrial junction. Endotracheal tube is 5.8 cm above the sofie. Ent osmin tube is noted in the stomach. Low lung volumes are again present. Bilateral interstitial iliamna ding without focal infiltrates masses or effusions are noted. The mediastinum and the heart appear normal. No evidence for pneumothorax is present . IMPRESSION: 1. Right PICC catheter in superior vena cava right atrial junction. 2. Endotracheal tube and enteric tube in expected positions. 3. Low lung volumes with bilateral interstitial crowding and no evidence for focal infiltrates, eff usions or pneumothorax. RPTAT: HDC .Velma Weinberg MD, Date Time Electronically viewed and signed by .Velma Weinberg MD, on 08/13/2016 17:37 .C/
[2016-08-13] MEDS ORDERED: SOD CHLORIDE 0.9% 100 ML ONE (17:51)
[2016-08-13] MEDS: EPOETIN 10000 UNITS/1 ML INJ (ESRD) SC SCH (17:55)
[2016-08-13] MEDS: WARFARIN 2.5 MG TAB GTB SCH (17:56)
--- NOTE | 2016-08-13 19:36 | RADRPT ---
PROCEDURE: CR, chest, 08/13/2016, 02:30 p.m. CLINICAL INDICATION: Follow up for respiratory distress. TECHNIQUE: AP chest. COMPARISON: Chest, 08/13/2016, 05:26 p.m. and chest, 08/10/2016. FINDINGS: The heart is not enlarged. There are patchy infiltrates in the right upper lobe. No pleural effusi on. The ET tube and NG tube remain in good position. IMPRESSION: 1. Patchy infiltrates in the right upper lobe. RPTAT: GG .Sunday Maria MD, MD Date Time Electronically viewed and signed by .Sunday Maria MD, MD on 08/13/2016 19:36 .Y/
[2016-08-13] MEDS: ATORVASTATIN 40 MG TAB GTB SCH (21:46)
[2016-08-13] MEDS: IMIPENEM-CILAST 500MG IV (PMX) 100 ML IVPB SCH (21:46)
[2016-08-14] VITALS (62 sets, daily range): BP systolic 98–148; BP diastolic 54–76; PULSE 71–108; RESP 9–40
[2016-08-14] MEDS: VANCOMYCIN HCL 250 MG/5ML POSYG NGT SCH ×4 (00:43→18:27)
[2016-08-14] MEDS: INSULIN ASPART [NOVOLOG] 3 ML PEN SC SCH ×5 (00:47→21:00)
[2016-08-14] MEDS: ALBUTEROL HFA 8 GM INHALER INH SCH ×5 (01:26→21:24)
[2016-08-14 05:11] LABS: AADO2 Arterial 84.9 mmHg (7.0-24.0); Arterial Base Excess -0.4 mmol/L (-3.0-3); Arterial COHb 0.3 % (0.0-3.0); Arterial Fraction of Oxyhgb 94.8 % (93.0-99.0); Arterial HCO3 24.1 mmol/L (22.0-26.0); Arterial MetHb 0.1 % (0.0-1.5); Arterial Total Hemglobin 10.9 g/dl (12.0-18.0); MODE VENT - SIMV
[2016-08-14 05:14] LABS: Blood Gas PS 15
[2016-08-14] MEDS: LANSOPRAZOLE 30 MG CAP GTB SCH (05:23)
[2016-08-14 05:46] LABS: INR 1.54; PROTIME 18.6 Sec (12.2-14.2); PT RATIO 1.5
[2016-08-14 05:47] LABS: ALBUMIN 2.6 g/dl (3.3-4.9); POTASSIUM 4.1 mmol/L (3.5-5.1)
[2016-08-14 05:49] LABS: CREATININE 4.47 mg/dl (0.61-1.24)
[2016-08-14 05:50] LABS: ALBUMIN/GLOBULIN RATIO 0.92; TOTAL PROTEIN 5.4 g/dl (6.1-8.1)
[2016-08-14 05:51] LABS: CALCIUM 7.4 mg/dl (8.4-10.2)
[2016-08-14 05:56] LABS: EOSINOPHILS % 0.1 % (0.0-7.0); HEMOGLOBIN 9.8 g/dl (14.0-18.0); LYMPHOCYTES # 0.7 10^3/ul (0.8-2.9); LYMPHOCYTES % 5.8 % (15.0-51.0); MEAN CORPUSCULAR HEMOGLOBIN 32.6 pg (29.0-33.0); MEAN CORPUSCULAR HGB CONC 33.6 g/dl (32.0-37.0); MEAN CORPUSCULAR VOLUME 97.2 fl (82.0-101.0); MEAN PLATELET VOLUME 8.3 fl (7.4-10.4); MONOCYTE # 0.5 10^3/ul (0.3-0.9); MONOCYTES % 4.6 % (0.0-11.0); NEUTROPHIL # 10.3 10^3/ul (1.6-7.5); NEUTROPHILS % 89.5 % (39.0-77.0); PLATELET COUNT 130 10^3/UL (140-440); RED BLOOD COUNT 2.99 10^6/ul (4.70-6.10); RED CELL DISTRIBUTION WIDTH 14.7 % (11.5-14.5); UNCORRECTED WBC 11.5 10^3/ul (4.8-10.8); WHITE BLOOD COUNT 11.5 10^3/ul (4.8-10.8)
[2016-08-14 06:09] LABS: CONDITION 1; LH ANALYZER COMMENTS 1
[2016-08-14] MEDS: FENTAnyl 1,000 MCG in DEXTROSE 5% 80 ML IV SCH (07:00)
--- NOTE | 2016-08-14 07:58 | CONS ---
DATE OF ADMISSION: 07/26/2016 DATE OF CONSULTATION: TYPE OF CONSULTATION: Nephrology. HISTORY OF PRESENT ILLNESS: The patient remains intubated in the ICU, off pressors. He is once aga in undergoing a CPAP trial. Per the family wishes, if he fails yet again, they are agreeable to proceeding with a trach and PEG for continued respiratory and nutritional support. PHYSICAL EXAMINATION: VITAL SIGNS: He remains afebrile. Blood pressure is 103/63, heart rate is 80 in a sinus rhythm, res pirations are 12 to 16. O2 sat is 99% on FIO2 of 30% on the vent. SKIN: No rashes. LUNGS: Clear anteriorly. HEART: S1, S2, regular rate and rhythm. ABDOMEN: Soft and nontender. EXTREMITIES: Well-functioning left upper extremity AV fistula. Status post left BKA. LABORATORY DATA: White count 11.5, hemoglobin 9.8, hematocrit 29, platelet count 130,000. INR is 1 .54, potassium is 4.1, BUN 104, creatinine 4.47, calcium is 7.4 with an albumin of 2.6. IMAGING: Chest x-ray is unchanged from prior. Patchy infiltrates in the right upper lobe. PROBLEM LIST: 1. End-stage renal disease for planned hemodialysis today. 2. Acute respiratory failure, remained on the vent for 2 weeks now with repeatedly failed weaning a ttempts. 3. Questionable history of pneumonia, on antibiotics per Infectious Disease. 4. Prior history of hypotension, since resolved. 5. Prior history of congestive heart failure, since resolved. RECOMMENDATIONS: 1. Dialysis today. 2. Continue weaning trial. Dictated By: MOSES GUAJARDO MD, MM/OLESYA Conf#: [id number] DID#: [id number]
--- NOTE | 2016-08-14 08:40 | RADRPT ---
PROCEDURE: XR Chest. CLINICAL INDICATION: Pneumonia TECHNIQUE: Single frontal chest x-ray. COMPARISON: 08/13/2016 FINDINGS: Endotracheal tube, nasogastric tube, and right-sided PICC line remain in place. There is mild pulmo nary vascular congestion, increased from prior x-ray. No acute infiltrate, pneumothorax or signific ant pleural effusion is identified. Cardiomediastinal silhouette is stable in appearance. The osse ous structures are unremarkable. IMPRESSION: 1. Mild pulmonary vascular congestion, increased from prior x-ray. 2. Lines and tubes remain in place. 3. No evidence of focal acute infiltrate. RPTAT: TT .Santiago Marques MD, MD Date Time Electronically viewed and signed by .Santiago Marques MD, on 08/14/2016 08:39 .R/
[2016-08-14] MEDS: MULTIVIT/CA CARB/B CMPLX/FA TAB GTB SCH (08:59)
[2016-08-14] MEDS: DULOXETINE 30 MG CAP DR GTB SCH (08:59)
[2016-08-14] MEDS: LACTOBACILLUS CHEW TAB GTB SCH (08:59)
[2016-08-14] MEDS: FLUTICASONE 0.05% 16 GM NAS SPRAY NASAL SCH ×2 (09:00→21:04)
[2016-08-14] MEDS: METHYLPREDNISOLONE 40 MG INJ IV SCH (09:00)
[2016-08-14] MEDS: ASPIRIN 81 MG TAB GTB SCH (09:00)
[2016-08-14] MEDS: INSULIN GLARGINE [LANtus] 3 ML PEN SC SCH (09:08)
--- NOTE | 2016-08-14 10:45 | CONS ---
Date/Time of Note Date/Time of Note DATE: 08/14/16 TIME: 10:38 Assessment/Plan Assessment/Plan Chief Complaint/Hosp Course - acute hypoxemic respiratory failure - intubated 07/31 - Pulm edema, right lower lobe infiltrate, possible aspiration pneumonia per Pulmonary (Respiratory grew 08/02 rare C. albicans and on 08/10 grew MSSA and C. Albicans) - Sepsis d/t C diff colitis - leukocytosis now downward trending and tachycardia resolved - C diff colitis - intermittent fever - resolved - S/p hypotension after HD requiring short term Levophed 08/02 and 08/04/16-; on steroid trial. 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 - coagulopathy d/t warfarin - PAD with Hx Left BKA - Parkinson's - PCN allergic Recommendations: - Continue Primaxin 500 mg IV q24h (08/05/16-); (s/p vanco 07/29-08/13; aztreonam 07/29-08/05) - Continue PO vanco via OGT (07/1916-) - Continue caspofungin empirically (08/12/16-) - F/u beta d glucan (08/11 pending); if negative, plan to dc caspofungin - F/u procalcitonin (08/10 & 08/11 pending) - Trend WBC (downward trending; still on low dose steroid) - Above d/w Dr. Alexander - Critical care time spent: 37 minutes Problems: Consultation Date/Type/Reason Admit Date/Time Jul 26, 2016 at 01:55 Initial Consult Date 07/29/16 Type of Consultation: Infectious Disease Reason for Consultation Antibiotic Management Referring Provider: GRACIE KATHLEEN 24 HR Interval Summary Free Text/Dictation Remains afebrile, Pt made DNR yesterday, fentanyl and versed turned off this AM , attempting weaning trial, and HD being done today per JUAN MIGUEL Keyes. Exam/Review of Systems Vital Signs Vitals Vital Signs Date Time Temp Pulse Resp B/P Pulse Ox O2 Delivery O2 Flow Rate FiO2 08/14/16 09:00 82 16 108/59 99 Mechanical Ventilator 08/14/16 08:00 98.0 08/14/16 05:42 30 Intake and Output 08/13/16 08/13/16 08/14/16 15:00 23:00 07:00 Intake Total 686.5 ml 485.0 ml 447.5 ml Output Total 30 ml Balance 656.5 ml 485.0 ml 447.5 ml Exam Constitutional: frail, other (orally intubated) Head: atraumatic, normocephalic ENMT: mucosa pink and dry. No thrush noted. Neck: supple, no bruits Respiratory: Rhonchi R>L. No wheezing Cardiovascular: regular rate and rhythm, normal S1 and S2 Gastrointestinal: soft, bowel sounds present, other (OGT with TF; Lower abdominal ecchymosis spreading horizontally at pannus edge; rectal tube intact with liquid brown stool). Extremities: edema (trivial on RLE and trace on sacral area), other (LLE BKA noted; LUE AVF with + bruit/thrill; R foot cool to touch and DP difficult to palpate; left middle finger partial amputation noted) Neurological: Mildly sedated; currently not follwoing commands Skin: ecchymosis (few scattered on RLE and BUE), nl turgor, other (RUE PICC c/d /i) Results Result Diagram: 08/14/16 0515 08/14/16 0515 Results 24 hrs Laboratory Tests Test 08/13/16 12:40 08/13/16 17:59 08/13/16 21:48 08/14/16 00:45 Bedside Glucose 135 169 141 144 Test 08/14/16 05:00 08/14/16 05:12 08/14/16 05:15 08/14/16 09:06 Arterial Blood HCO3 24.1 Arterial Blood Base Excess -0.4 Arterial Blood Oxygen Saturation 95.2 Jerod Test N/A Arterial Blood Gas Puncture Site Right Brachial Arterial Blood Carboxyhemoglobin 0.3 Arterial Blood Date Drawn 08/14/2016 4:50:00 AM Arterial Blood Methemoglobin 0.1 Arterial Blood pCO2 (Temp correct) 38.6 Arterial Blood pH (Temp corrected) 7.413 Arterial Blood pO2 (Temp corrected) 83.6 Blood Gas A-a O2 Differential 84.9 H Blood Gas Actual Respiration Rate 16 Blood Gas Inspiratory Pressure 25.0 Blood Gas Low PEEP Setting 5.0 Blood Gas Modality VENT - SIMV Blood Gas Notified Time 08/14/2016 5:10:00 AM Blood Gas Notified Whom MG Blood Gas Pressure Support 15 Blood Gas Respiration Rate 8.0 Blood Gas Specimen Source Blood arterial Blood Gas Temperature 37.0 Blood Gas Tidal Volume 550.0 FiO2 30.0 Oxyhemoglobin Percent 94.8 Total Hemoglobin 10.9 L Bedside Glucose 128 110 Alanine Aminotransferase (ALT/SGPT) 51 Albumin 2.6 L Albumin/Globulin Ratio 0.92 Alkaline Phosphatase 201 H Anion Gap 18 H Aspartate Amino Transf (AST/SGOT) 72 #H Basophils # 0.0 Basophils % 0.0 Blood Morphology Comment Blood Urea Nitrogen 104 H Calcium Level 7.4 L Carbon Dioxide Level 25 Chloride Level 96 L Creatinine 4.47 H Direct Bilirubin 0.00 Eosinophils # 0.0 Eosinophils % 0.1 Globulin 2.80 Glucose Level 118 Hematocrit 29.0 L Hemoglobin 9.8 L INR International Normalized Ratio 1.54 Indirect Bilirubin 0.0 Lymphocytes # 0.7 L Lymphocytes % 5.8 L Mean Corpuscular Hemoglobin 32.6 Mean Corpuscular Hemoglobin Concent 33.6 Mean Corpuscular Volume 97.2 Mean Platelet Volume 8.3 Monocytes # 0.5 Monocytes % 4.6 Neutrophils # 10.3 H Neutrophils % 89.5 H Nucleated Red Blood Cells # 0.0 Nucleated Red Blood Cells % 0.0 Platelet Count 130 #L Potassium Level 4.1 Prothrombin Time 18.6 H Prothrombin Time Ratio 1.5 Red Blood Count 2.99 L Red Cell Distribution Width 14.7 H Sodium Level 135 Total Bilirubin 0.0 L Total Protein 5.4 L White Blood Count 11.5 #H Respiratory Culture 08/10/16 GRAM STAIN Final POLYMORPH. LEUKOCYTE 2+ GRAM POS COCCI IN PAIRS RARE MONONUCLEAR WBC 3+ RESPIRATORY CULTURE Final Organism 1 STAPHYLOCOCCUS AUREUS QUANTITY SCANT GROWTH Organism 2 BREONNA ALBICANS QUANTITY SCANT GROWTH S AUREUS M.I.C. RX --------- --- CEFAZOLIN S CIPROFLOXACIN >=8 R CLINDAMYCIN >=8 R DOXYCYCLINE S ERYTHROMYCIN >=8 R LEVOFLOXACIN >=8 R OXACILLIN 0.5 S PENICILLIN-G >=0.5 R RIFAMPIN <=0.5 S VANCOMYCIN <=0.5 S TRIMETHOPRIM/SULFAMETHOXAZOLE <=10 S Blood cultures on 07/29, 08/09 & 08/10: Negative to date Respiratory culture 08/02: GRAM STAIN Final POLYMORPH. LEUKOCYTE RARE . NO ORGANISM SEEN RESPIRATORY CULTURE Final Organism 1 BREONNA ALBICANS QUANTITY RARE Organism 2 NORMAL RESPIRATORY MEKHI QUANTITY SCANT GROWTH C diff 08/06: Positive MRSA screen 07/27: Negative Medications Medications Current Medications Fluticasone Propionate (Flonase 0.05% Nasal) 1 spray BID NASAL Last administered on 08/13/16at 21:47; Admin Dose 1 SPRAY; Start 07/26/16 at 10:00 Epoetin [place] (Epogen (Esrd)) 10,000 units MoWeFr@17 SC Last administered on 17:55; Admin Dose 10,000 UNITS; Start 07/27/16 at 17:00; Status Future hold Hydralazine HCl 10 mg 10 mg Q6H PRN IV ELEVATED BLOOD PRESSURE Last administered on 07/29/16at 12:59; Admin Dose 10 MG; Start 07/29/16 at 13:00 Midazolam HCl 50 mg/Dextrose 50 ml @ 1 mls/hr TITRATE IV Last administered on 08/13/16 22:03; Admin Dose 5 MLS/HR; Start 08/01/16 at 23:00 Fentanyl/Dextrose (D5W) 100 ml @ 2.6 mls/hr TITRATE IV Last administered on 09:03; Admin Dose 2.6 MLS/HR; Start 08/01/16 at 23:00 Acetaminophen (Tylenol Tab) 650 mg Q6H PRN GTB PAIN1-3/FEVER ABOVE 100 Last administered on 08/12/16at 06:07; Admin Dose 650 MG; Start 08/02/16 at 15:00 Atorvastatin Calcium (Lipitor) 40 mg HS GTB Last administered on 08/13/16at 21: 46; Admin Dose 40 MG; Start 08/02/16 at 21:00 Carvedilol (Coreg) 6.25 mg BID GTB ; Start 08/02/16 at 09:00; Status Future Hold Duloxetine HCl (Cymbalta) 90 mg DAILY GTB Last administered on 08/14/16at 08:59 ; Admin Dose 90 MG; Start 08/02/16 at 09:00 Guaifenesin (Robitussin Liquid Cup) 100 mg Q4 PRN GTB COUGH; Start 08/02/16 at 09:00 Acetaminophen/ Hydrocodone Bitart ([place] (5/325)) 1 tab Q4 PRN GTB WSOB Last administered on 08/08/16 09:01; Admin Dose 1 TAB; Start 08/02/16 at 09:00 Lactobacillus Acidoph/Bulgaricus (Floranex) 1 tab DAILY GTB Last administered on 08/14/16 08:59; Admin Dose 1 TAB; Start 08/02/16 at 09:00 Lorazepam (Ativan) 1 mg Q6H PRN GTB ANXIETY Last administered on 08/08/16 21: 02; Admin Dose 1 MG; Start 08/02/16 at 09:00 Multivit/Ca Carb/ B Cmplx/FA/Prenat (Cheryl-Darcie) 1 tab DAILY GTB Last administered on 08/14/16 08:59; Admin Dose 1 TAB; Start 08/02/16 at 09:00 Aspirin (Aspirin) 81 mg DAILY GTB Last administered on 08/14/16 09:00; Admin Dose 81 MG; Start 08/02/16 at 09:00 Lansoprazole 30 mg 30 mg DAILY@06 GTB Last administered on 08/14/16 05:23; Admin Dose 30 MG; Start 08/02/16 at 10:00 Phenylephrine HCl 80 mg/Dextrose 250 ml @ 18.75 mls/ hr TITRATE IV ; Start at 12:30 Norepinephrine 16 mg/Dextrose 500 ml @ 1.87 mls/hr TITRATE IV Last administered on 08/05/16at 14:51; Admin Dose 22.5 MLS/HR; Start 08/05/16 at 12: 00 Imipenem/ Cilastatin Sodium (Primaxin 500 Mg/ 100 ml (Pmx)) 100 ml @ 100 mls/ hr Q24H IVPB Last administered on 08/13/16 21:46; Admin Dose 100 MLS/HR; Start 08/05/16 at 21:00 Vancomycin HCl (Vancomycin Oral Syringe) 125 mg Q6 NGT Last administered on 05:23; Admin Dose 125 MG; Start 08/06/16 at 18:00 Sildenafil Citrate (Revatio) 20 mg BID PO Last administered on 12/24/16at 11:56 ; Admin Dose 20 MG; Start 08/08/16 at 21:00; Status Future Hold Warfarin Sodium (Coumadin) 2.5 mg DAILY@17 GTB Last administered on 08/13/16at 17:56; Admin Dose 2.5 MG; Start 08/08/16 at 17:00 Lorazepam (Ativan) 0.5 mg Q4 PRN IV ANXIETY Last administered on 08/09/16at 10: 51; Admin Dose 0.5 MG; Start 08/09/16 at 00:00 Methylprednisolone Sodium Succinate (Solu-Medrol) 20 mg DAILY IV Last administered on 08/14/16at 09:00; Admin Dose 20 MG; Start 08/10/16 at 09:00 Insulin Glargine (Lantus) 30 unit QAM SC Last administered on 08/14/16at 09:08 ; Admin Dose 30 UNIT; Start 08/11/16 at 12:00 Miscellaneous Information 1 ea NOTE XX ; Start 08/11/16 at 12:00 Glucose (Glutose) 15 gm Q15M PRN PO DECREASED GLUCOSE; Start 08/11/16 at 12:00 Glucose (Glutose) 22.5 gm Q15M PRN PO DECREASED GLUCOSE; Start 08/11/16 at 12: 00 Dextrose (D50w Syringe) 25 ml Q15M PRN IV DECREASED GLUCOSE; Start 08/11/16 at 12:00 Dextrose (D50w Syringe) 50 ml Q15M PRN IV DECREASED GLUCOSE; Start 08/11/16 at 12:00 Glucagon (Glucagen) 1 mg Q15M PRN IM DECREASED GLUCOSE; Start 08/11/16 at 12: 00 Glucose 15 gm 15 gm Q15M PRN BUCCAL DECREASED GLUCOSE; Start 08/11/16 at 12:00 Caspofungin/ Sodium Chloride (Cancidas/NS) 250 ml @ 250 mls/hr Q24H IVPB Last administered on 08/13/16at 13:49; Admin Dose 250 MLS/HR; Start 08/12/16 at 14: 00 Insulin Aspart NOVOLOG *MODERATE* ALGORI... Q4 SC Last administered on at 00:47; Admin Dose 2 UNIT; Start 08/11/16 at 17:00 Vancomycin HCl/ Sodium Chloride (Vancocin/NS) 250 ml @ 83.333 mls/ hr Q96H IVPB Last administered on 08/11/16at 18:03; Admin Dose 83.333 MLS/HR; Start at 16:00 IV Flush (NS 10 ml) 10 ml PRN PRN IV IV PROTOCOL; Start 08/13/16 at 18:00 Procedures Procedures CXR 08/14/16: 1. Mild pulmonary vascular congestion, increased from prior x-ray. 2. Lines and tubes remain in place. 3. No evidence of focal acute infiltrate. CT Brain 07/30/16: Examination is degraded due to patient motion artifact. No evidence of focal hematoma, mass effect, or definite acute ischemic changes. Moderate chronic-appearing microvascular ischemic changes of the supratentorial white matter. Venous study 07/26/16: Old partial DVT of the right internal jugular vein. BLE venous study 07/26/16: No evidence of deep vein thrombosis involving either lower extremity. VQ scan 07/26/16: 1. No evidence of deep vein thrombosis involving either lower extremity. JERICHO CRABTREE NP Aug 14, 2016 10:45
[2016-08-14] MEDS: ALBUMIN HUMAN 25% 100 ML IV PRN (11:28)
--- NOTE | 2016-08-14 13:55 | PN ---
Date/Time of Note Date/Time of Note DATE: 08/14/16 TIME: 13:53 Assessment/Plan VTE Prophylaxis VTE Prophylaxis Intervention: other Lines/Catheters IV Catheter Type (from Nrs): PICC Line Central line still needed: Yes Urinary Cath still in place: No Reason Cath still needed: skin wounds contaminated by urine Assessment/Plan Chief Complaint/Hosp Course 1. Acute respiratory failure- sp intubation on 07/31 - per pulmonary, continue ventilator support, bronchodilators, steroids. 2. Possible pneumonia- right lower lobe infiltrate- possible aspiration pneumonia per Pulmonary. Sputum grew 08/02 rare jerry albicans - per Dr. Reardon in infectious disease consultation. 3. Early sepsis d/t C diff - recurrent leukocytosis improving and low grade fever resolving. 4. End-stage renal disease hemodialysis dependent. - on HD - per Dr. Bassett in nephrology consultation 5. Diastolic congestive heart failure. Continue to remove fluid was hemodialysis. 6. Partial right internal jugular DVT. Continue Coumadin. Continue daily PT PTT. 7. C diff stool - per ID - on po Vanco - contact isolation 8. RUE cellulitis with axillary/cephalic venous thrombosis - PER id 9. Hyperglycemia- GLYCEMIC Control- stable 10. Toxic metabolic encephalopathy 11. Osteoporosis. 12. Pulmonary hypertension. Continue sildenafil. 13. Coronary artery disease with history of PCI. 14. Depression. Continue Cymbalta 15. History of left hip fracture, treated conservatively. Problems: Subjective 24 Hr Interval Summary Free Text/Dictation Patient is intubated but is awake and able to gesture that he is alright. Exam/Review of Systems Vital Signs Vitals Vital Signs Date Time Temp Pulse Resp B/P Pulse Ox O2 Delivery O2 Flow Rate FiO2 08/14/16 13:00 99 08/14/16 13:00 18 08/14/16 11:20 96 30 08/14/16 10:30 130/63 08/14/16 10:00 Mechanical Ventilator 08/14/16 08:00 98.0 Intake and Output 08/13/16 08/13/16 08/14/16 15:00 23:00 07:00 Intake Total 686.5 ml 485.0 ml 447.5 ml Output Total 30 ml Balance 656.5 ml 485.0 ml 447.5 ml Exam Constitutional: alert, well developed Respiratory: diminished breath sounds Cardiovascular: regular rate and rhythm Gastrointestinal: non-tender, soft Results Result Diagram: 08/14/16 0515 08/14/16 0515 Results 24 hrs Laboratory Tests Test 08/13/16 17:59 08/13/16 21:48 08/14/16 00:45 08/14/16 05:00 Bedside Glucose 169 141 144 Arterial Blood HCO3 24.1 Arterial Blood Base Excess -0.4 Arterial Blood Oxygen Saturation 95.2 Jerod Test N/A Arterial Blood Gas Puncture Site Right Brachial Arterial Blood Carboxyhemoglobin 0.3 Arterial Blood Date Drawn 08/14/2016 4:50:00 AM Arterial Blood Methemoglobin 0.1 Arterial Blood pCO2 (Temp correct) 38.6 Arterial Blood pH (Temp corrected) 7.413 Arterial Blood pO2 (Temp corrected) 83.6 Blood Gas A-a O2 Differential 84.9 H Blood Gas Actual Respiration Rate 16 Blood Gas Inspiratory Pressure 25.0 Blood Gas Low PEEP Setting 5.0 Blood Gas Modality VENT - SIMV Blood Gas Notified Time 08/14/2016 5:10:00 AM Blood Gas Notified Whom MG Blood Gas Pressure Support 15 Blood Gas Respiration Rate 8.0 Blood Gas Specimen Source Blood arterial Blood Gas Temperature 37.0 Blood Gas Tidal Volume 550.0 FiO2 30.0 Oxyhemoglobin Percent 94.8 Total Hemoglobin 10.9 L Test 08/14/16 05:12 08/14/16 05:15 08/14/16 09:06 Bedside Glucose 128 110 Alanine Aminotransferase (ALT/SGPT) 51 Albumin 2.6 L Albumin/Globulin Ratio 0.92 Alkaline Phosphatase 201 H Anion Gap 18 H Aspartate Amino Transf (AST/SGOT) 72 #H Basophils # 0.0 Basophils % 0.0 Blood Morphology Comment Blood Urea Nitrogen 104 H Calcium Level 7.4 L Carbon Dioxide Level 25 Chloride Level 96 L Creatinine 4.47 H Direct Bilirubin 0.00 Eosinophils # 0.0 Eosinophils % 0.1 Globulin 2.80 Glucose Level 118 Hematocrit 29.0 L Hemoglobin 9.8 L INR International Normalized Ratio 1.54 Indirect Bilirubin 0.0 Lymphocytes # 0.7 L Lymphocytes % 5.8 L Mean Corpuscular Hemoglobin 32.6 Mean Corpuscular Hemoglobin Concent 33.6 Mean Corpuscular Volume 97.2 Mean Platelet Volume 8.3 Monocytes # 0.5 Monocytes % 4.6 Neutrophils # 10.3 H Neutrophils % 89.5 H Nucleated Red Blood Cells # 0.0 Nucleated Red Blood Cells % 0.0 Platelet Count 130 #L Potassium Level 4.1 Prothrombin Time 18.6 H Prothrombin Time Ratio 1.5 Red Blood Count 2.99 L Red Cell Distribution Width 14.7 H Sodium Level 135 Total Bilirubin 0.0 L Total Protein 5.4 L White Blood Count 11.5 #H Medications Medications Current Medications Fluticasone Propionate (Flonase 0.05% Nasal) 1 spray BID NASAL Last administered on 08/13/16at 21:47; Admin Dose 1 SPRAY; Start 07/26/16 at 10:00 Epoetin [place] (Epogen (Esrd)) 10,000 units MoWeFr@17 SC Last administered on at 17:55; Admin Dose 10,000 UNITS; Start 07/27/16 at 17:00; Status Future hold Hydralazine HCl 10 mg 10 mg Q6H PRN IV ELEVATED BLOOD PRESSURE Last administered on 07/29/16at 12:59; Admin Dose 10 MG; Start 07/29/16 at 13:00 Midazolam HCl 50 mg/Dextrose 50 ml @ 1 mls/hr TITRATE IV Last administered on 08/13/16at 22:03; Admin Dose 5 MLS/HR; Start 08/01/16 at 23:00 Fentanyl/Dextrose (D5W) 100 ml @ 2.6 mls/hr TITRATE IV Last administered on at 09:03; Admin Dose 2.6 MLS/HR; Start 08/01/16 at 23:00 Acetaminophen (Tylenol Tab) 650 mg Q6H PRN GTB PAIN1-3/FEVER ABOVE 100 Last administered on 08/12/16at 06:07; Admin Dose 650 MG; Start 08/02/16 at 15:00 Atorvastatin Calcium (Lipitor) 40 mg HS GTB Last administered on 08/13/16at 21: 46; Admin Dose 40 MG; Start 08/02/16 at 21:00 Carvedilol (Coreg) 6.25 mg BID GTB ; Start 08/02/16 at 09:00; Status Future Hold Duloxetine HCl (Cymbalta) 90 mg DAILY GTB Last administered on 08/14/16at 08:59 ; Admin Dose 90 MG; Start 08/02/16 at 09:00 Guaifenesin (Robitussin Liquid Cup) 100 mg Q4 PRN GTB COUGH; Start 08/02/16 at 09:00 Acetaminophen/ Hydrocodone Bitart ([place] (5/325)) 1 tab Q4 PRN GTB WSOB Last administered on 08/08/16 09:01; Admin Dose 1 TAB; Start 08/02/16 at 09:00 Lactobacillus Acidoph/Bulgaricus (Floranex) 1 tab DAILY GTB Last administered on 08/14/16 08:59; Admin Dose 1 TAB; Start 08/02/16 at 09:00 Lorazepam (Ativan) 1 mg Q6H PRN GTB ANXIETY Last administered on 08/08/16 21: 02; Admin Dose 1 MG; Start 08/02/16 at 09:00 Multivit/Ca Carb/ B Cmplx/FA/Prenat (Cheryl-Darcie) 1 tab DAILY GTB Last administered on 08/14/16 08:59; Admin Dose 1 TAB; Start 08/02/16 at 09:00 Aspirin (Aspirin) 81 mg DAILY GTB Last administered on 08/14/16 09:00; Admin Dose 81 MG; Start 08/02/16 at 09:00 Lansoprazole 30 mg 30 mg DAILY@06 GTB Last administered on 08/14/16 05:23; Admin Dose 30 MG; Start 08/02/16 at 10:00 Phenylephrine HCl 80 mg/Dextrose 250 ml @ 18.75 mls/ hr TITRATE IV ; Start at 12:30 Norepinephrine 16 mg/Dextrose 500 ml @ 1.87 mls/hr TITRATE IV Last administered on 08/05/16 14:51; Admin Dose 22.5 MLS/HR; Start 08/05/16 at 12: 00 Imipenem/ Cilastatin Sodium (Primaxin 500 Mg/ 100 ml (Pmx)) 100 ml @ 100 mls/ hr Q24H IVPB Last administered on 08/13/16 21:46; Admin Dose 100 MLS/HR; Start 08/05/16 at 21:00 Vancomycin HCl (Vancomycin Oral Syringe) 125 mg Q6 NGT Last administered on 05:23; Admin Dose 125 MG; Start 08/06/16 at 18:00 Sildenafil Citrate (Revatio) 20 mg BID PO Last administered on 08/11/16 11:56 ; Admin Dose 20 MG; Start 08/08/16 at 21:00; Status Future Hold Warfarin Sodium (Coumadin) 2.5 mg DAILY@17 GTB Last administered on 08/13/16at 17:56; Admin Dose 2.5 MG; Start 08/08/16 at 17:00 Lorazepam (Ativan) 0.5 mg Q4 PRN IV ANXIETY Last administered on 08/09/16at 10: 51; Admin Dose 0.5 MG; Start 08/09/16 at 00:00 Methylprednisolone Sodium Succinate (Solu-Medrol) 20 mg DAILY IV Last administered on 08/14/16at 09:00; Admin Dose 20 MG; Start 08/10/16 at 09:00 Insulin Glargine (Lantus) 30 unit QAM SC Last administered on 08/14/16at 09:08 ; Admin Dose 30 UNIT; Start 08/11/16 at 12:00 Miscellaneous Information 1 ea NOTE XX ; Start 08/11/16 at 12:00 Glucose (Glutose) 15 gm Q15M PRN PO DECREASED GLUCOSE; Start 08/11/16 at 12:00 Glucose (Glutose) 22.5 gm Q15M PRN PO DECREASED GLUCOSE; Start 08/11/16 at 12: 00 Dextrose (D50w Syringe) 25 ml Q15M PRN IV DECREASED GLUCOSE; Start 08/11/16 at 12:00 Dextrose (D50w Syringe) 50 ml Q15M PRN IV DECREASED GLUCOSE; Start 08/11/16 at 12:00 Glucagon (Glucagen) 1 mg Q15M PRN IM DECREASED GLUCOSE; Start 08/11/16 at 12: 00 Glucose 15 gm 15 gm Q15M PRN BUCCAL DECREASED GLUCOSE; Start 08/11/16 at 12:00 Caspofungin/ Sodium Chloride (Cancidas/NS) 250 ml @ 250 mls/hr Q24H IVPB Last administered on 08/13/16at 13:49; Admin Dose 250 MLS/HR; Start 08/12/16 at 14: 00 Insulin Aspart NOVOLOG *MODERATE* ALGORI... Q4 SC Last administered on at 00:47; Admin Dose 2 UNIT; Start 08/11/16 at 17:00 Vancomycin HCl/ Sodium Chloride (Vancocin/NS) 250 ml @ 83.333 mls/ hr Q96H IVPB Last administered on 08/11/16at 18:03; Admin Dose 83.333 MLS/HR; Start at 16:00 IV Flush (NS 10 ml) 10 ml PRN PRN IV IV PROTOCOL; Start 08/13/16 at 18:00 LESLIE PEDROZA Aug 14, 2016 13:54
[2016-08-14] MEDS: CASPOFUNGIN 35 MG in SOD CHLORIDE 0.9% 250 ML IVPB SCH (18:26)
[2016-08-14] MEDS: WARFARIN 2.5 MG TAB GTB SCH (18:27)
[2016-08-14] MEDS: CEFAZOLIN 1 GM/50 ML (PMX) 50 ML IVPB SCH (18:27)
--- NOTE | 2016-08-14 18:27 | CONS ---
Date/Time of Note Date/Time of Note DATE: 08/14/16 TIME: 18:25 Assessment/Plan Assessment/Plan Additional Assessment/Plan Respiratory failure status post intubation Sepsis Minimally elevated troponin Partial right internal jugular DVT Diastolic congestive heart failure End-stage renal disease on hemodialysis CAD with history of PCI Diabetes Peripheral arterial disease with history of amputation Pulmonary hypertension -Blood pressure trend overall remained stable, weaning trials as per our pulmonary colleagues, no new cardiac orders at the current time Consultation Date/Type/Reason Admit Date/Time Jul 26, 2016 at 01:55 Type of Consultation: cv Referring Provider: GRACIE KATHLEEN 24 HR Interval Summary Free Text/Dictation Patient remains intubated Exam/Review of Systems Vital Signs Vitals Vital Signs Date Time Temp Pulse Resp B/P Pulse Ox O2 Delivery O2 Flow Rate FiO2 08/14/16 17:10 96 13 97 30 08/14/16 17:00 134/68 Mechanical Ventilator 08/14/16 16:00 98.2 Intake and Output 08/13/16 08/13/16 08/14/16 15:00 23:00 07:00 Intake Total 686.5 ml 485.0 ml 447.5 ml Output Total 30 ml Balance 656.5 ml 485.0 ml 447.5 ml Exam Awake, follows some basic commands Head: normocephalic ENMT: intubated Respiratory: other (course breath sounds, no wheezing) Cardiovascular: other (S1-S2 heard), regular rate and rhythm Gastrointestinal: bowel sounds, non-tender, soft Extremities: edema Results Result Diagram: 08/14/16 0515 08/14/16 0515 Results 24 hrs Laboratory Tests Test 08/13/16 21:48 08/14/16 00:45 08/14/16 05:00 08/14/16 05:12 Bedside Glucose 141 144 128 Arterial Blood HCO3 24.1 Arterial Blood Base Excess -0.4 Arterial Blood Oxygen Saturation 95.2 Jerod Test N/A Arterial Blood Gas Puncture Site Right Brachial Arterial Blood Carboxyhemoglobin 0.3 Arterial Blood Date Drawn 08/14/2016 4:50:00 AM Arterial Blood Methemoglobin 0.1 Arterial Blood pCO2 (Temp correct) 38.6 Arterial Blood pH (Temp corrected) 7.413 Arterial Blood pO2 (Temp corrected) 83.6 Blood Gas A-a O2 Differential 84.9 H Blood Gas Actual Respiration Rate 16 Blood Gas Inspiratory Pressure 25.0 Blood Gas Low PEEP Setting 5.0 Blood Gas Modality VENT - SIMV Blood Gas Notified Time 08/14/2016 5:10:00 AM Blood Gas Notified Whom MG Blood Gas Pressure Support 15 Blood Gas Respiration Rate 8.0 Blood Gas Specimen Source Blood arterial Blood Gas Temperature 37.0 Blood Gas Tidal Volume 550.0 FiO2 30.0 Oxyhemoglobin Percent 94.8 Total Hemoglobin 10.9 L Test 08/14/16 05:15 08/14/16 09:06 08/14/16 17:57 Alanine Aminotransferase (ALT/SGPT) 51 Albumin 2.6 L Albumin/Globulin Ratio 0.92 Alkaline Phosphatase 201 H Anion Gap 18 H Aspartate Amino Transf (AST/SGOT) 72 #H Basophils # 0.0 Basophils % 0.0 Blood Morphology Comment Blood Urea Nitrogen 104 H Calcium Level 7.4 L Carbon Dioxide Level 25 Chloride Level 96 L Creatinine 4.47 H Direct Bilirubin 0.00 Eosinophils # 0.0 Eosinophils % 0.1 Globulin 2.80 Glucose Level 118 Hematocrit 29.0 L Hemoglobin 9.8 L INR International Normalized Ratio 1.54 Indirect Bilirubin 0.0 Lymphocytes # 0.7 L Lymphocytes % 5.8 L Mean Corpuscular Hemoglobin 32.6 Mean Corpuscular Hemoglobin Concent 33.6 Mean Corpuscular Volume 97.2 Mean Platelet Volume 8.3 Monocytes # 0.5 Monocytes % 4.6 Neutrophils # 10.3 H Neutrophils % 89.5 H Nucleated Red Blood Cells # 0.0 Nucleated Red Blood Cells % 0.0 Platelet Count 130 #L Potassium Level 4.1 Prothrombin Time 18.6 H Prothrombin Time Ratio 1.5 Red Blood Count 2.99 L Red Cell Distribution Width 14.7 H Sodium Level 135 Total Bilirubin 0.0 L Total Protein 5.4 L White Blood Count 11.5 #H Bedside Glucose 110 137 Medications Medications Current Medications Fluticasone Propionate (Flonase 0.05% Nasal) 1 spray BID NASAL Last administered on 08/13/16at 21:47; Admin Dose 1 SPRAY; Start 07/26/16 at 10:00 Epoetin [place] (Epogen (Esrd)) 10,000 units MoWeFr@17 SC Last administered on at 17:55; Admin Dose 10,000 UNITS; Start 07/27/16 at 17:00; Status Future hold Hydralazine HCl 10 mg 10 mg Q6H PRN IV ELEVATED BLOOD PRESSURE Last administered on 07/29/16 12:59; Admin Dose 10 MG; Start 07/29/16 at 13:00 Midazolam HCl 50 mg/Dextrose 50 ml @ 1 mls/hr TITRATE IV Last administered on 08/13/16 22:03; Admin Dose 5 MLS/HR; Start 08/01/16 at 23:00 Fentanyl/Dextrose (D5W) 100 ml @ 2.6 mls/hr TITRATE IV Last administered on 09:03; Admin Dose 2.6 MLS/HR; Start 08/01/16 at 23:00 Acetaminophen (Tylenol Tab) 650 mg Q6H PRN GTB PAIN1-3/FEVER ABOVE 100 Last administered on 08/12/16 06:07; Admin Dose 650 MG; Start 08/02/16 at 15:00 Atorvastatin Calcium (Lipitor) 40 mg HS GTB Last administered on 08/13/16 21: 46; Admin Dose 40 MG; Start 08/02/16 at 21:00 Carvedilol (Coreg) 6.25 mg BID GTB ; Start 08/02/16 at 09:00; Status Future Hold Duloxetine HCl (Cymbalta) 90 mg DAILY GTB Last administered on 08/14/16 08:59 ; Admin Dose 90 MG; Start 08/02/16 at 09:00 Guaifenesin (Robitussin Liquid Cup) 100 mg Q4 PRN GTB COUGH; Start 08/02/16 at 09:00 Acetaminophen/ Hydrocodone Bitart ([place] (5/325)) 1 tab Q4 PRN GTB [facility] Last administered on 08/08/16 09:01; Admin Dose 1 TAB; Start 08/02/16 at 09:00 Lactobacillus Acidoph/Bulgaricus (Floranex) 1 tab DAILY GTB Last administered on 08/14/16 08:59; Admin Dose 1 TAB; Start 08/02/16 at 09:00 Lorazepam (Ativan) 1 mg Q6H PRN GTB ANXIETY Last administered on 08/08/16 21: 02; Admin Dose 1 MG; Start 08/02/16 at 09:00 Multivit/Ca Carb/ B Cmplx/FA/Prenat (Cheryl-Darcie) 1 tab DAILY GTB Last administered on 08/14/16 08:59; Admin Dose 1 TAB; Start 08/02/16 at 09:00 Aspirin (Aspirin) 81 mg DAILY GTB Last administered on 08/14/16 09:00; Admin Dose 81 MG; Start 08/02/16 at 09:00 Lansoprazole 30 mg 30 mg DAILY@06 GTB Last administered on 08/14/16 05:23; Admin Dose 30 MG; Start 08/02/16 at 10:00 Phenylephrine HCl 80 mg/Dextrose 250 ml @ 18.75 mls/ hr TITRATE IV ; Start at 12:30 Norepinephrine/ Dextrose (Levophed/D5W) 500 ml @ 1.87 mls/hr TITRATE IV Last administered on 08/05/16 14:51; Admin Dose 22.5 MLS/HR; Start 08/05/16 at 12: 00 Vancomycin HCl (Vancomycin Oral Syringe) 125 mg Q6 NGT Last administered on at 12:00; Admin Dose 125 MG; Start 08/06/16 at 18:00 Sildenafil Citrate (Revatio) 20 mg BID PO Last administered on 08/11/16at 11:56 ; Admin Dose 20 MG; Start 08/08/16 at 21:00; Status Future Hold Warfarin Sodium (Coumadin) 2.5 mg DAILY@17 GTB Last administered on 08/13/16at 17:56; Admin Dose 2.5 MG; Start 08/08/16 at 17:00 Lorazepam (Ativan) 0.5 mg Q4 PRN IV ANXIETY Last administered on 08/09/16at 10: 51; Admin Dose 0.5 MG; Start 08/09/16 at 00:00 Methylprednisolone Sodium Succinate (Solu-Medrol) 20 mg DAILY IV Last administered on 08/14/16 09:00; Admin Dose 20 MG; Start 08/10/16 at 09:00 Insulin Glargine (Lantus) 30 unit QAM SC Last administered on 08/14/16 09:08 ; Admin Dose 30 UNIT; Start 08/11/16 at 12:00 Miscellaneous Information 1 ea NOTE XX ; Start 08/11/16 at 12:00 Glucose (Glutose) 15 gm Q15M PRN PO DECREASED GLUCOSE; Start 08/11/16 at 12:00 Glucose (Glutose) 22.5 gm Q15M PRN PO DECREASED GLUCOSE; Start 08/11/16 at 12: 00 Dextrose (D50w Syringe) 25 ml Q15M PRN IV DECREASED GLUCOSE; Start 08/11/16 at 12:00 Dextrose (D50w Syringe) 50 ml Q15M PRN IV DECREASED GLUCOSE; Start 08/11/16 at 12:00 Glucagon (Glucagen) 1 mg Q15M PRN IM DECREASED GLUCOSE; Start 08/11/16 at 12: 00 Glucose 15 gm 15 gm Q15M PRN BUCCAL DECREASED GLUCOSE; Start 08/11/16 at 12:00 Caspofungin/ Sodium Chloride (Cancidas/NS) 250 ml @ 250 mls/hr Q24H IVPB Last administered on 08/13/16at 13:49; Admin Dose 250 MLS/HR; Start 08/12/16 at 14: 00 Insulin Aspart (Novolog Insulin Pen) NOVOLOG *MODERATE* ALGORI... Q4 SC Last administered on 08/14/16at 00:47; Admin Dose 2 UNIT; Start 08/11/16 at 17:00 IV Flush 10 ml 10 ml PRN PRN IV IV PROTOCOL; Start 08/13/16 at 18:00 Cefazolin Sodium (Ancef 1 Gm/50 ml (Pmx)) 50 ml @ 100 mls/hr Q24H IVPB ; Start 08/14/16 at 17:00 Solo Leon DO Aug 14, 2016 18:27
[2016-08-14] MEDS: ATORVASTATIN 40 MG TAB GTB SCH (21:04)
[2016-08-15] VITALS (46 sets, daily range): BP systolic 72–188; BP diastolic 49–89; PULSE 75–123; RESP 14–37
[2016-08-15] MEDS: VANCOMYCIN HCL 250 MG/5ML POSYG NGT SCH ×4 (00:57→17:19)
[2016-08-15] MEDS: INSULIN ASPART [NOVOLOG] 3 ML PEN SC SCH ×6 (01:02→21:23)
[2016-08-15] MEDS: FENTAnyl 1,000 MCG in DEXTROSE 5% 80 ML IV SCH ×2 (01:06→05:54)
[2016-08-15] MEDS: MIDAZOLAM 50 MG in DEXTROSE 5% 40 ML IV SCH ×2 (01:08→23:00)
[2016-08-15] MEDS: ALBUTEROL HFA 8 GM INHALER INH SCH ×3 (01:26→08:10)
[2016-08-15] MEDS: LANSOPRAZOLE 30 MG CAP GTB SCH (05:48)
[2016-08-15 06:05] LABS: BASOPHILS % 0.2 % (0.0-2.0); EOSINOPHILS % 0.1 % (0.0-7.0); HEMATOCRIT 28.9 % (42.0-52.0); HEMOGLOBIN 9.4 g/dl (14.0-18.0); LYMPHOCYTES # 0.7 10^3/ul (0.8-2.9); LYMPHOCYTES % 6.1 % (15.0-51.0); MEAN CORPUSCULAR HEMOGLOBIN 31.8 pg (29.0-33.0); MEAN CORPUSCULAR HGB CONC 32.7 g/dl (32.0-37.0); MEAN CORPUSCULAR VOLUME 97.4 fl (82.0-101.0); MEAN PLATELET VOLUME 8.1 fl (7.4-10.4); MONOCYTE # 0.5 10^3/ul (0.3-0.9); MONOCYTES % 4.2 % (0.0-11.0); NEUTROPHIL # 9.6 10^3/ul (1.6-7.5); NEUTROPHILS % 89.4 % (39.0-77.0); PLATELET COUNT 121 10^3/UL (140-440); RED BLOOD COUNT 2.97 10^6/ul (4.70-6.10); RED CELL DISTRIBUTION WIDTH 14.7 % (11.5-14.5); UNCORRECTED WBC 10.7 10^3/ul (4.8-10.8); WHITE BLOOD COUNT 10.7 10^3/ul (4.8-10.8)
[2016-08-15 06:24] LABS: CONDITION 1
[2016-08-15 06:25] LABS: LH ANALYZER COMMENTS 1; POTASSIUM 3.5 mmol/L (3.5-5.1)
[2016-08-15 06:28] LABS: CREATININE 3.08 mg/dl (0.61-1.24)
[2016-08-15 06:29] LABS: CALCIUM 7.7 mg/dl (8.4-10.2); MAGNESIUM 2.3 mg/dl (1.7-2.5); PHOSPHORUS 3.8 mg/dl (2.5-4.9)
--- NOTE | 2016-08-15 07:55 | CONS ---
Date/Time of Note Date/Time of Note DATE: 08/15/16 TIME: 07:54 Assessment/Plan Assessment/Plan Additional Assessment/Plan 1. CKD with next HD planned tomm. 2. Ventilator dependent. 3. Pul infiltratre, abx per id 4. Labs rev Consultation Date/Type/Reason Admit Date/Time Jul 26, 2016 at 01:55 Type of Consultation: cv Referring Provider: GRACIE KATHLEEN 24 HR Interval Summary Subjective hx not possible: other (intubated, not on pressors and not sedated) Exam/Review of Systems Vital Signs Vitals Vital Signs Date Time Temp Pulse Resp B/P Pulse Ox O2 Delivery O2 Flow Rate FiO2 08/15/16 06:00 81 16 109/60 97 Mechanical Ventilator 08/15/16 05:04 30 08/15/16 04:00 98.2 Intake and Output 08/14/16 08/14/16 08/15/16 15:00 23:00 07:00 Intake Total 840 ml 655 ml 340 ml Output Total 3000 ml Balance -2160 ml 655 ml 340 ml Exam Neck: No jvd Respiratory: clear to auscultation Cardiovascular: regular rate and rhythm Gastrointestinal: No distended Extremities: No edema Results Result Diagram: 08/15/16 0400 08/15/16 0400 Results 24 hrs Laboratory Tests Test 08/14/16 09:06 08/14/16 17:57 08/14/16 21:11 08/15/16 00:56 Bedside Glucose 110 137 129 148 Test 08/15/16 04:00 08/15/16 05:53 08/15/16 07:12 Anion Gap 17 H Basophils # 0.0 Basophils % 0.2 Blood Morphology Comment Blood Urea Nitrogen 67 #H Calcium Level 7.7 L Carbon Dioxide Level 28 Chloride Level 99 Creatinine 3.08 #H Eosinophils # 0.0 Eosinophils % 0.1 Glucose Level 99 Hematocrit 28.9 L Hemoglobin 9.4 L Lymphocytes # 0.7 L Lymphocytes % 6.1 L Magnesium Level 2.3 Mean Corpuscular Hemoglobin 31.8 Mean Corpuscular Hemoglobin Concent 32.7 Mean Corpuscular Volume 97.4 Mean Platelet Volume 8.1 Monocytes # 0.5 Monocytes % 4.2 Neutrophils # 9.6 H Neutrophils % 89.4 H Nucleated Red Blood Cells # 0.0 Nucleated Red Blood Cells % 0.0 Phosphorus Level 3.8 Platelet Count 121 L Potassium Level 3.5 Red Blood Count 2.97 L Red Cell Distribution Width 14.7 H Sodium Level 140 White Blood Count 10.7 Bedside Glucose 119 Lab Scanned Report REFERENCE LAB Medications Medications Current Medications Fluticasone Propionate (Flonase 0.05% Nasal) 1 spray BID NASAL Last administered on 08/14/16 21:04; Admin Dose 1 SPRAY; Start 07/26/16 at 10:00 Epoetin [place] (Epogen (Esrd)) 10,000 units MoWeFr@17 SC Last administered on at 17:55; Admin Dose 10,000 UNITS; Start 07/27/16 at 17:00; Status Future hold Hydralazine HCl 10 mg 10 mg Q6H PRN IV ELEVATED BLOOD PRESSURE Last administered on 07/29/16at 12:59; Admin Dose 10 MG; Start 07/29/16 at 13:00 Midazolam HCl 50 mg/Dextrose 50 ml @ 1 mls/hr TITRATE IV Last administered on 08/15/16at 01:08; Admin Dose 3 MLS/HR; Start 08/01/16 at 23:00 Fentanyl/Dextrose (D5W) 100 ml @ 2.6 mls/hr TITRATE IV Last administered on at 05:54; Admin Dose 2.6 MLS/HR; Start 08/01/16 at 23:00 Acetaminophen (Tylenol Tab) 650 mg Q6H PRN GTB PAIN1-3/FEVER ABOVE 100 Last administered on 08/12/16at 06:07; Admin Dose 650 MG; Start 08/02/16 at 15:00 Atorvastatin Calcium (Lipitor) 40 mg HS GTB Last administered on 08/14/16at 21: 04; Admin Dose 40 MG; Start 08/02/16 at 21:00 Carvedilol (Coreg) 6.25 mg BID GTB ; Start 08/02/16 at 09:00; Status Future Hold Duloxetine HCl (Cymbalta) 90 mg DAILY GTB Last administered on 08/14/16at 08:59 ; Admin Dose 90 MG; Start 08/02/16 at 09:00 Guaifenesin (Robitussin Liquid Cup) 100 mg Q4 PRN GTB COUGH; Start 08/02/16 at 09:00 Acetaminophen/ Hydrocodone Bitart ([place] (5/325)) 1 tab Q4 PRN GTB [facility] Last administered on 08/08/16 09:01; Admin Dose 1 TAB; Start 08/02/16 at 09:00 Lactobacillus Acidoph/Bulgaricus (Floranex) 1 tab DAILY GTB Last administered on 08/14/16 08:59; Admin Dose 1 TAB; Start 08/02/16 at 09:00 Lorazepam (Ativan) 1 mg Q6H PRN GTB ANXIETY Last administered on 08/08/16 21: 02; Admin Dose 1 MG; Start 08/02/16 at 09:00 Multivit/Ca Carb/ B Cmplx/FA/Prenat (Cheryl-Darcie) 1 tab DAILY GTB Last administered on 08/14/16 08:59; Admin Dose 1 TAB; Start 08/02/16 at 09:00 Aspirin (Aspirin) 81 mg DAILY GTB Last administered on 08/14/16 09:00; Admin Dose 81 MG; Start 08/02/16 at 09:00 Lansoprazole 30 mg 30 mg DAILY@06 GTB Last administered on 08/15/16 05:48; Admin Dose 30 MG; Start 08/02/16 at 10:00 Phenylephrine HCl 80 mg/Dextrose 250 ml @ 18.75 mls/ hr TITRATE IV ; Start at 12:30 Norepinephrine/ Dextrose (Levophed/D5W) 500 ml @ 1.87 mls/hr TITRATE IV Last administered on 08/05/16at 14:51; Admin Dose 22.5 MLS/HR; Start 08/05/16 at 12: 00 Vancomycin HCl (Vancomycin Oral Syringe) 125 mg Q6 NGT Last administered on 05:49; Admin Dose 125 MG; Start 08/06/16 at 18:00 Sildenafil Citrate (Revatio) 20 mg BID PO Last administered on 08/11/16 11:56 ; Admin Dose 20 MG; Start 08/08/16 at 21:00; Status Future Hold Warfarin Sodium (Coumadin) 2.5 mg DAILY@17 GTB Last administered on 08/14/16 18:27; Admin Dose 2.5 MG; Start 08/08/16 at 17:00 Lorazepam (Ativan) 0.5 mg Q4 PRN IV ANXIETY Last administered on 12/22/16at 10: 51; Admin Dose 0.5 MG; Start 08/09/16 at 00:00 Methylprednisolone Sodium Succinate (Solu-Medrol) 20 mg DAILY IV Last administered on 08/14/16at 09:00; Admin Dose 20 MG; Start 08/10/16 at 09:00 Insulin Glargine (Lantus) 30 unit QAM SC Last administered on 08/14/16at 09:08 ; Admin Dose 30 UNIT; Start 08/11/16 at 12:00 Miscellaneous Information 1 ea NOTE XX ; Start 08/11/16 at 12:00 Glucose (Glutose) 15 gm Q15M PRN PO DECREASED GLUCOSE; Start 08/11/16 at 12:00 Glucose (Glutose) 22.5 gm Q15M PRN PO DECREASED GLUCOSE; Start 08/11/16 at 12: 00 Dextrose (D50w Syringe) 25 ml Q15M PRN IV DECREASED GLUCOSE; Start 08/11/16 at 12:00 Dextrose (D50w Syringe) 50 ml Q15M PRN IV DECREASED GLUCOSE; Start 08/11/16 at 12:00 Glucagon (Glucagen) 1 mg Q15M PRN IM DECREASED GLUCOSE; Start 08/11/16 at 12: 00 Glucose 15 gm 15 gm Q15M PRN BUCCAL DECREASED GLUCOSE; Start 08/11/16 at 12:00 Caspofungin/ Sodium Chloride (Cancidas/NS) 250 ml @ 250 mls/hr Q24H IVPB Last administered on 08/14/16at 18:26; Admin Dose 250 MLS/HR; Start 08/12/16 at 14: 00 Insulin Aspart (Novolog Insulin Pen) NOVOLOG *MODERATE* ALGORI... Q4 SC Last administered on 08/15/16at 01:02; Admin Dose 2 UNIT; Start 08/11/16 at 17:00 IV Flush 10 ml 10 ml PRN PRN IV IV PROTOCOL; Start 08/13/16 at 18:00 Cefazolin Sodium (Ancef 1 Gm/50 ml (Pmx)) 50 ml @ 100 mls/hr Q24H IVPB Last administered on 08/14/16at 18:27; Admin Dose 100 MLS/HR; Start 08/14/16 at 17: 00 JESSICA ROSARIO MD Aug 15, 2016 07:55
--- NOTE | 2016-08-15 08:13 | RADRPT ---
PROCEDURE: XR Chest. CLINICAL INDICATION: Vent management TECHNIQUE: PA and lateral views of the chest were obtained. COMPARISON: Chest x-ray from 08/14/2016. FINDINGS: Enteric tube, endotracheal tube, and right-sided PICC line are again noted, unchanged. The heart and mediastinum are within normal limits. There are stable low lung volumes and mild pulmonary vascular congestion. There are no focal infiltrates. There is no significant pleural effusion or pneumothorax. Osseous and soft tissue structures are unremarkable. IMPRESSION: No significant interval change. RPTAT: EE Physician Gideon Date Time Electronically viewed and signed by Physician Gideon on 08/15/2016 08:13 /
[2016-08-15 08:22] LABS: AADO2 Arterial 100.1 mmHg (7.0-24.0); Arterial COHb 0.3 % (0.0-3.0); Arterial Fraction of Oxyhgb 93.6 % (93.0-99.0); Arterial HCO3 24.5 mmol/L (22.0-26.0); Arterial MetHb 0.1 % (0.0-1.5); Arterial Total Hemglobin 10.5 g/dl (12.0-18.0); Blood Gas PS 15; MODE VENT - SIMV
[2016-08-15] MEDS: FLUTICASONE 0.05% 16 GM NAS SPRAY NASAL SCH ×2 (09:35→21:19)
[2016-08-15] MEDS: INSULIN GLARGINE [LANtus] 3 ML PEN SC SCH (09:39)
[2016-08-15] MEDS: METHYLPREDNISOLONE 40 MG INJ IV SCH (09:46)
[2016-08-15] MEDS: DULOXETINE 30 MG CAP DR GTB SCH (09:49)
[2016-08-15] MEDS: ASPIRIN 81 MG TAB GTB SCH (09:49)
[2016-08-15] MEDS: LACTOBACILLUS CHEW TAB GTB SCH (09:49)
[2016-08-15] MEDS: MULTIVIT/CA CARB/B CMPLX/FA TAB GTB SCH (09:49)
--- NOTE | 2016-08-15 11:02 | CONS ---
Date/Time of Note Date/Time of Note DATE: 08/15/16 TIME: 10:56 Consult Date/Type/Reason Admit Date/Time Jul 26, 2016 at 01:55 Initial Consult Date 07/29/16 Type of Consultation: pulmonary Ordering Provider: GRACIE KATHLEEN Subjective Continues mechanical ventilation Awake alert oriented Nods to questions Currently hemodynamically stable Objective Vital Signs Date Time Temp Pulse Resp B/P Pulse Ox O2 Delivery O2 Flow Rate FiO2 08/15/16 10:00 87 15 120/64 97 Mechanical Ventilator 08/15/16 08:00 30 08/15/16 08:00 98.0 Intake and Output 08/14/16 08/14/16 08/15/16 15:00 23:00 07:00 Intake Total 840 ml 655 ml 350 ml Output Total 3000 ml Balance -2160 ml 655 ml 350 ml PHYSICAL EXAMINATION GENERAL: Elderly gentleman, intubated on mechanical ventilation, opens eyes and appears somewhat agitated. Orally intubated. VITAL SIGNS: see below. HEENT: Pupils equal, round, and reactive to light. CARDIAC: S1, S2, tachycardia. CHEST: Diminished air entry bilaterally. ABDOMEN: Mildly distended. bowel sounds present no guarding or rebound sounds. EXTREMITIES: No cyanosis, clubbing edema +1 NEUROLOGIC: Generalized weakness Results/Medications Result Diagram: 08/15/16 0400 08/15/16 0400 Results 24 hrs Laboratory Tests Test 08/14/16 17:57 08/14/16 21:11 08/15/16 00:56 08/15/16 04:00 Bedside Glucose 137 129 148 Anion Gap 17 H Basophils # 0.0 Basophils % 0.2 Blood Morphology Comment Blood Urea Nitrogen 67 #H Calcium Level 7.7 L Carbon Dioxide Level 28 Chloride Level 99 Creatinine 3.08 #H Eosinophils # 0.0 Eosinophils % 0.1 Glucose Level 99 Hematocrit 28.9 L Hemoglobin 9.4 L Lymphocytes # 0.7 L Lymphocytes % 6.1 L Magnesium Level 2.3 Mean Corpuscular Hemoglobin 31.8 Mean Corpuscular Hemoglobin Concent 32.7 Mean Corpuscular Volume 97.4 Mean Platelet Volume 8.1 Monocytes # 0.5 Monocytes % 4.2 Neutrophils # 9.6 H Neutrophils % 89.4 H Nucleated Red Blood Cells # 0.0 Nucleated Red Blood Cells % 0.0 Phosphorus Level 3.8 Platelet Count 121 L Potassium Level 3.5 Red Blood Count 2.97 L Red Cell Distribution Width 14.7 H Sodium Level 140 White Blood Count 10.7 Test 08/15/16 05:53 08/15/16 07:12 08/15/16 08:00 08/15/16 09:35 Bedside Glucose 119 93 Lab Scanned Report REFERENCE LAB Arterial Blood HCO3 24.5 Arterial Blood Base Excess 1.0 Arterial Blood Oxygen Saturation 94.0 L Jerod Test N/A Arterial Blood Gas Puncture Site Right Brachial Arterial Blood Carboxyhemoglobin 0.3 Arterial Blood Date Drawn 08/15/2016 8:00:41 AM Arterial Blood Methemoglobin 0.1 Arterial Blood pCO2 (Temp correct) 34.8 L Arterial Blood pH (Temp corrected) 7.466 H Arterial Blood pO2 (Temp corrected) 72.9 L Blood Gas A-a O2 Differential 100.1 H Blood Gas Actual Respiration Rate 16 Blood Gas Low PEEP Setting 5.0 Blood Gas Modality VENT - SIMV Blood Gas Notified Time 08/15/2016 8:22:38 AM Blood Gas Notified Whom JLD Blood Gas Pressure Support 15 Blood Gas Respiration Rate 8.0 Blood Gas Specimen Source Blood arterial Blood Gas Temperature 37.0 Blood Gas Tidal Volume 550.0 FiO2 30.0 Oxyhemoglobin Percent 93.6 Total Hemoglobin 10.5 L Medications Current Medications Fluticasone Propionate (Flonase 0.05% Nasal) 1 spray BID NASAL Last administered on 08/15/16at 09:35; Admin Dose 1 SPRAY; Start 07/26/16 at 10:00 Epoetin [place] (Epogen (Esrd)) 10,000 units MoWeFr@17 SC Last administered on at 17:55; Admin Dose 10,000 UNITS; Start 07/27/16 at 17:00; Status Future hold Hydralazine HCl 10 mg 10 mg Q6H PRN IV ELEVATED BLOOD PRESSURE Last administered on 07/29/16at 12:59; Admin Dose 10 MG; Start 07/29/16 at 13:00 Midazolam HCl 50 mg/Dextrose 50 ml @ 1 mls/hr TITRATE IV Last administered on 08/15/16 01:08; Admin Dose 3 MLS/HR; Start 08/01/16 at 23:00 Fentanyl/Dextrose (D5W) 100 ml @ 2.6 mls/hr TITRATE IV Last administered on 05:54; Admin Dose 2.6 MLS/HR; Start 08/01/16 at 23:00 Acetaminophen (Tylenol Tab) 650 mg Q6H PRN GTB PAIN1-3/FEVER ABOVE 100 Last administered on 08/12/16 06:07; Admin Dose 650 MG; Start 08/02/16 at 15:00 Atorvastatin Calcium (Lipitor) 40 mg HS GTB Last administered on 08/14/16 21: 04; Admin Dose 40 MG; Start 08/02/16 at 21:00 Carvedilol (Coreg) 6.25 mg BID GTB ; Start 08/02/16 at 09:00; Status Future Hold Duloxetine HCl (Cymbalta) 90 mg DAILY GTB Last administered on 08/15/16 09:49 ; Admin Dose 90 MG; Start 08/02/16 at 09:00 Guaifenesin (Robitussin Liquid Cup) 100 mg Q4 PRN GTB COUGH; Start 08/02/16 at 09:00 Acetaminophen/ Hydrocodone Bitart ([place] (5/325)) 1 tab Q4 PRN GTB [facility] Last administered on 08/08/16 09:01; Admin Dose 1 TAB; Start 08/02/16 at 09:00 Lactobacillus Acidoph/Bulgaricus (Floranex) 1 tab DAILY GTB Last administered on 08/15/16 09:49; Admin Dose 1 TAB; Start 08/02/16 at 09:00 Lorazepam (Ativan) 1 mg Q6H PRN GTB ANXIETY Last administered on 08/08/16 21: 02; Admin Dose 1 MG; Start 08/02/16 at 09:00 Multivit/Ca Carb/ B Cmplx/FA/Prenat (Cheryl-Darcie) 1 tab DAILY GTB Last administered on 08/15/16 09:49; Admin Dose 1 TAB; Start 08/02/16 at 09:00 Aspirin (Aspirin) 81 mg DAILY GTB Last administered on 08/15/16 09:49; Admin Dose 81 MG; Start 08/02/16 at 09:00 Lansoprazole 30 mg 30 mg DAILY@06 GTB Last administered on 08/15/16 05:48; Admin Dose 30 MG; Start 08/02/16 at 10:00 Phenylephrine HCl 80 mg/Dextrose 250 ml @ 18.75 mls/ hr TITRATE IV ; Start at 12:30 Norepinephrine/ Dextrose (Levophed/D5W) 500 ml @ 1.87 mls/hr TITRATE IV Last administered on 08/05/16at 14:51; Admin Dose 22.5 MLS/HR; Start 08/05/16 at 12: 00 Vancomycin HCl (Vancomycin Oral Syringe) 125 mg Q6 NGT Last administered on at 05:49; Admin Dose 125 MG; Start 08/06/16 at 18:00 Sildenafil Citrate (Revatio) 20 mg BID PO Last administered on 08/11/16at 11:56 ; Admin Dose 20 MG; Start 08/08/16 at 21:00; Status Future Hold Warfarin Sodium (Coumadin) 2.5 mg DAILY@17 GTB Last administered on 08/14/16at 18:27; Admin Dose 2.5 MG; Start 08/08/16 at 17:00 Lorazepam (Ativan) 0.5 mg Q4 PRN IV ANXIETY Last administered on 08/09/16at 10: 51; Admin Dose 0.5 MG; Start 08/09/16 at 00:00 Methylprednisolone Sodium Succinate (Solu-Medrol) 20 mg DAILY IV Last administered on 08/15/16at 09:46; Admin Dose 20 MG; Start 08/10/16 at 09:00 Insulin Glargine (Lantus) 30 unit QAM SC Last administered on 08/15/16at 09:39 ; Admin Dose 30 UNIT; Start 08/11/16 at 12:00 Miscellaneous Information 1 ea NOTE XX ; Start 08/11/16 at 12:00 Glucose (Glutose) 15 gm Q15M PRN PO DECREASED GLUCOSE; Start 08/11/16 at 12:00 Glucose (Glutose) 22.5 gm Q15M PRN PO DECREASED GLUCOSE; Start 08/11/16 at 12: 00 Dextrose (D50w Syringe) 25 ml Q15M PRN IV DECREASED GLUCOSE; Start 08/11/16 at 12:00 Dextrose (D50w Syringe) 50 ml Q15M PRN IV DECREASED GLUCOSE; Start 08/11/16 at 12:00 Glucagon (Glucagen) 1 mg Q15M PRN IM DECREASED GLUCOSE; Start 08/11/16 at 12: 00 Glucose 15 gm 15 gm Q15M PRN BUCCAL DECREASED GLUCOSE; Start 08/11/16 at 12:00 Caspofungin/ Sodium Chloride (Cancidas/NS) 250 ml @ 250 mls/hr Q24H IVPB Last administered on 08/14/16at 18:26; Admin Dose 250 MLS/HR; Start 08/12/16 at 14: 00 Insulin Aspart (Novolog Insulin Pen) NOVOLOG *MODERATE* ALGORI... Q4 SC Last administered on 08/15/16at 01:02; Admin Dose 2 UNIT; Start 08/11/16 at 17:00 IV Flush 10 ml 10 ml PRN PRN IV IV PROTOCOL; Start 08/13/16 at 18:00 Cefazolin Sodium (Ancef 1 Gm/50 ml (Pmx)) 50 ml @ 100 mls/hr Q24H IVPB Last administered on 08/14/16at 18:27; Admin Dose 100 MLS/HR; Start 08/14/16 at 17: 00 Collagenase (Santyl) 1 applic DAILY TOP ; Start 08/15/16 at 12:00 Assessment/Plan Chief Complaint/Hosp Course assessment 1. Hypoxemic resp failure, acute requiring mechanical ventilation. 2. Pulm edema, right lower lobe infiltrate, possible aspiration pneumonia. 3. Encephalopathy toxic metabolic 4. Diastolic dysf ? 5. Persistent leukocytosis likely polymicrobial sepsis 6. End-stage renal failure on hemodialysis Plan 1. Continue Vent, CPAP trial 2. Hemodialysis per nephrology 3, Aspiration precautions 4. DVT / GI prophylaxis. 5. Continue broad-spectrum antibiotics pending cultures d/w staff Overall prognosis very poor consider addressing CODE STATUS Proceed tracheostomy and G-tube if weaning trial fails Problems: VALER[facility] CAMARENA [facility], [facility] Aug 15, 2016 11:02
--- NOTE | 2016-08-15 11:09 | CONS ---
Date/Time of Note Date/Time of Note DATE: 08/15/16 TIME: 11:01 Assessment/Plan Assessment/Plan Chief Complaint/Hosp Course - acute hypoxemic respiratory failure - intubated 07/31 - Pulm edema, right lower lobe infiltrate, possible aspiration pneumonia per Pulmonary (Respiratory grew 08/02 rare C. albicans and on 08/10 grew MSSA and C. Albicans) - Sepsis d/t C diff colitis - leukocytosis now downward trending and tachycardia resolved - C diff colitis - intermittent fever - resolved - S/p hypotension after HD requiring short term Levophed 08/02 and 08/04/16-; on steroid trial. 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 - coagulopathy d/t warfarin - PAD with Hx Left BKA - Parkinson's - PCN allergic - s/pPrimaxin 500 mg IV q24h (08/05/16- 08.14.16) (s/p vanco 07/29-08/13; aztreonam 07/29-08/05) Recommendations: - IV cefazolin x 10- 14 days (08.14.16) - Continue PO vanco via OGT (07/1916-) for duration of systemic abx and then 10 days thereafter - Continue caspofungin empirically (08/12/16-) - based on borderline positive beta d glucan-- finish 14 days - Trend WBC (downward trending; still on low dose steroid) Problems: Consultation Date/Type/Reason Admit Date/Time Jul 26, 2016 at 01:55 Initial Consult Date 07/29/16 Type of Consultation: id Referring Provider: GRACIE KATHLEEN 24 HR Interval Summary Free Text/Dictation d/w nurse Estrella.apparently not doing well on weaning. d/w [employer] Milo yesterday. Care coordinated. Exam/Review of Systems Vital Signs Vitals Vital Signs Date Time Temp Pulse Resp B/P Pulse Ox O2 Delivery O2 Flow Rate FiO2 08/15/16 10:00 87 15 120/64 97 Mechanical Ventilator 08/15/16 08:00 30 08/15/16 08:00 98.0 Intake and Output 08/14/16 08/14/16 08/15/16 15:00 23:00 07:00 Intake Total 840 ml 655 ml 350 ml Output Total 3000 ml Balance -2160 ml 655 ml 350 ml Exam Constitutional: alert, oriented Psych: nl mood/affect, no complaints Head: atraumatic, normocephalic Eyes: EOMI, nl sclera Neck: non-tender, supple Respiratory: clear to auscultation, normal air movement Cardiovascular: nl pulses, regular rate and rhythm Gastrointestinal: nl liver, spleen, non-tender, soft Results Result Diagram: 08/15/16 0400 08/15/16 0400 Results 24 hrs Laboratory Tests Test 08/14/16 17:57 08/14/16 21:11 08/15/16 00:56 08/15/16 04:00 Bedside Glucose 137 129 148 Anion Gap 17 H Basophils # 0.0 Basophils % 0.2 Blood Morphology Comment Blood Urea Nitrogen 67 #H Calcium Level 7.7 L Carbon Dioxide Level 28 Chloride Level 99 Creatinine 3.08 #H Eosinophils # 0.0 Eosinophils % 0.1 Glucose Level 99 Hematocrit 28.9 L Hemoglobin 9.4 L Lymphocytes # 0.7 L Lymphocytes % 6.1 L Magnesium Level 2.3 Mean Corpuscular Hemoglobin 31.8 Mean Corpuscular Hemoglobin Concent 32.7 Mean Corpuscular Volume 97.4 Mean Platelet Volume 8.1 Monocytes # 0.5 Monocytes % 4.2 Neutrophils # 9.6 H Neutrophils % 89.4 H Nucleated Red Blood Cells # 0.0 Nucleated Red Blood Cells % 0.0 Phosphorus Level 3.8 Platelet Count 121 L Potassium Level 3.5 Red Blood Count 2.97 L Red Cell Distribution Width 14.7 H Sodium Level 140 White Blood Count 10.7 Test 08/15/16 05:53 08/15/16 07:12 08/15/16 08:00 08/15/16 09:35 Bedside Glucose 119 93 Lab Scanned Report REFERENCE LAB Arterial Blood HCO3 24.5 Arterial Blood Base Excess 1.0 Arterial Blood Oxygen Saturation 94.0 L Jerod Test N/A Arterial Blood Gas Puncture Site Right Brachial Arterial Blood Carboxyhemoglobin 0.3 Arterial Blood Date Drawn 08/15/2016 8:00:41 AM Arterial Blood Methemoglobin 0.1 Arterial Blood pCO2 (Temp correct) 34.8 L Arterial Blood pH (Temp corrected) 7.466 H Arterial Blood pO2 (Temp corrected) 72.9 L Blood Gas A-a O2 Differential 100.1 H Blood Gas Actual Respiration Rate 16 Blood Gas Low PEEP Setting 5.0 Blood Gas Modality VENT - SIMV Blood Gas Notified Time 08/15/2016 8:22:38 AM Blood Gas Notified Whom JLD Blood Gas Pressure Support 15 Blood Gas Respiration Rate 8.0 Blood Gas Specimen Source Blood arterial Blood Gas Temperature 37.0 Blood Gas Tidal Volume 550.0 FiO2 30.0 Oxyhemoglobin Percent 93.6 Total Hemoglobin 10.5 L Medications Medications Current Medications Fluticasone Propionate (Flonase 0.05% Nasal) 1 spray BID NASAL Last administered on 08/15/16at 09:35; Admin Dose 1 SPRAY; Start 07/26/16 at 10:00 Epoetin [place] (Epogen (Esrd)) 10,000 units MoWeFr@17 SC Last administered on at 17:55; Admin Dose 10,000 UNITS; Start 07/27/16 at 17:00; Status Future hold Hydralazine HCl 10 mg 10 mg Q6H PRN IV ELEVATED BLOOD PRESSURE Last administered on 07/29/16at 12:59; Admin Dose 10 MG; Start 07/29/16 at 13:00 Midazolam HCl 50 mg/Dextrose 50 ml @ 1 mls/hr TITRATE IV Last administered on 08/15/16 01:08; Admin Dose 3 MLS/HR; Start 08/01/16 at 23:00 Fentanyl/Dextrose (D5W) 100 ml @ 2.6 mls/hr TITRATE IV Last administered on at 05:54; Admin Dose 2.6 MLS/HR; Start 08/01/16 at 23:00 Acetaminophen (Tylenol Tab) 650 mg Q6H PRN GTB PAIN1-3/FEVER ABOVE 100 Last administered on 08/12/16at 06:07; Admin Dose 650 MG; Start 08/02/16 at 15:00 Atorvastatin Calcium (Lipitor) 40 mg HS GTB Last administered on 08/14/16at 21: 04; Admin Dose 40 MG; Start 08/02/16 at 21:00 Carvedilol (Coreg) 6.25 mg BID GTB ; Start 08/02/16 at 09:00; Status Future Hold Duloxetine HCl (Cymbalta) 90 mg DAILY GTB Last administered on 08/15/16 09:49 ; Admin Dose 90 MG; Start 08/02/16 at 09:00 Guaifenesin (Robitussin Liquid Cup) 100 mg Q4 PRN GTB COUGH; Start 08/02/16 at 09:00 Acetaminophen/ Hydrocodone Bitart ([place] (5/325)) 1 tab Q4 PRN GTB WSOB Last administered on 08/08/16 09:01; Admin Dose 1 TAB; Start 08/02/16 at 09:00 Lactobacillus Acidoph/Bulgaricus (Floranex) 1 tab DAILY GTB Last administered on 08/15/16 09:49; Admin Dose 1 TAB; Start 08/02/16 at 09:00 Lorazepam (Ativan) 1 mg Q6H PRN GTB ANXIETY Last administered on 08/08/16 21: 02; Admin Dose 1 MG; Start 08/02/16 at 09:00 Multivit/Ca Carb/ B Cmplx/FA/Prenat (Cheryl-Darcie) 1 tab DAILY GTB Last administered on 08/15/16 09:49; Admin Dose 1 TAB; Start 08/02/16 at 09:00 Aspirin (Aspirin) 81 mg DAILY GTB Last administered on 08/15/16 09:49; Admin Dose 81 MG; Start 08/02/16 at 09:00 Lansoprazole 30 mg 30 mg DAILY@06 GTB Last administered on 08/15/16 05:48; Admin Dose 30 MG; Start 08/02/16 at 10:00 Phenylephrine HCl 80 mg/Dextrose 250 ml @ 18.75 mls/ hr TITRATE IV ; Start at 12:30 Norepinephrine/ Dextrose (Levophed/D5W) 500 ml @ 1.87 mls/hr TITRATE IV Last administered on 08/05/16 14:51; Admin Dose 22.5 MLS/HR; Start 08/05/16 at 12: 00 Vancomycin HCl (Vancomycin Oral Syringe) 125 mg Q6 NGT Last administered on 05:49; Admin Dose 125 MG; Start 08/06/16 at 18:00 Sildenafil Citrate (Revatio) 20 mg BID PO Last administered on 12/24/16at 11:56 ; Admin Dose 20 MG; Start 08/08/16 at 21:00; Status Future Hold Warfarin Sodium (Coumadin) 2.5 mg DAILY@17 GTB Last administered on 08/14/16at 18:27; Admin Dose 2.5 MG; Start 08/08/16 at 17:00 Lorazepam (Ativan) 0.5 mg Q4 PRN IV ANXIETY Last administered on 08/09/16at 10: 51; Admin Dose 0.5 MG; Start 08/09/16 at 00:00 Methylprednisolone Sodium Succinate (Solu-Medrol) 20 mg DAILY IV Last administered on 08/15/16at 09:46; Admin Dose 20 MG; Start 08/10/16 at 09:00 Insulin Glargine (Lantus) 30 unit QAM SC Last administered on 08/15/16at 09:39 ; Admin Dose 30 UNIT; Start 08/11/16 at 12:00 Miscellaneous Information 1 ea NOTE XX ; Start 08/11/16 at 12:00 Glucose (Glutose) 15 gm Q15M PRN PO DECREASED GLUCOSE; Start 08/11/16 at 12:00 Glucose (Glutose) 22.5 gm Q15M PRN PO DECREASED GLUCOSE; Start 08/11/16 at 12: 00 Dextrose (D50w Syringe) 25 ml Q15M PRN IV DECREASED GLUCOSE; Start 08/11/16 at 12:00 Dextrose (D50w Syringe) 50 ml Q15M PRN IV DECREASED GLUCOSE; Start 08/11/16 at 12:00 Glucagon (Glucagen) 1 mg Q15M PRN IM DECREASED GLUCOSE; Start 08/11/16 at 12: 00 Glucose 15 gm 15 gm Q15M PRN BUCCAL DECREASED GLUCOSE; Start 08/11/16 at 12:00 Caspofungin/ Sodium Chloride (Cancidas/NS) 250 ml @ 250 mls/hr Q24H IVPB Last administered on 08/14/16at 18:26; Admin Dose 250 MLS/HR; Start 08/12/16 at 14: 00 Insulin Aspart (Novolog Insulin Pen) NOVOLOG *MODERATE* ALGORI... Q4 SC Last administered on 08/15/16at 01:02; Admin Dose 2 UNIT; Start 08/11/16 at 17:00 IV Flush 10 ml 10 ml PRN PRN IV IV PROTOCOL; Start 08/13/16 at 18:00 Cefazolin Sodium (Ancef 1 Gm/50 ml (Pmx)) 50 ml @ 100 mls/hr Q24H IVPB Last administered on 08/14/16at 18:27; Admin Dose 100 MLS/HR; Start 08/14/16 at 17: 00 Collagenase (Santyl) 1 applic DAILY TOP ; Start 08/15/16 at 12:00 JOYCE SOARES MD Aug 15, 2016 11:09
[2016-08-15] MEDS ORDERED: COLLAGENASE 30 GM TUBE TOP SCH (12:00)
--- NOTE | 2016-08-15 12:41 | PN ---
Date/Time of Note Date/Time of Note DATE: 08/15/16 TIME: 12:40 Assessment/Plan VTE Prophylaxis VTE Prophylaxis Intervention: other Lines/Catheters IV Catheter Type (from Nrs): PICC Line Central line still needed: Yes Urinary Cath still in place: No Reason Cath still needed: skin wounds contaminated by urine Assessment/Plan Chief Complaint/Hosp Course 1. Acute respiratory failure- sp intubation on 07/31 - per pulmonary, continue ventilator support, bronchodilators, steroids - wean as able 2. Possible pneumonia- right lower lobe infiltrate- possible aspiration pneumonia per Pulmonary. Sputum grew 08/02 rare jerry albicans - per Dr. Reardon in infectious disease consultation. 3. Early sepsis d/t C diff - recurrent leukocytosis improving and low grade fever resolving. 4. End-stage renal disease hemodialysis dependent. - on HD - per Dr. Bassett in nephrology consultation 5. Diastolic congestive heart failure. Continue to remove fluid was hemodialysis. 6. Partial right internal jugular DVT. Continue Coumadin. Continue daily PT PTT. 7. C diff stool - per ID - on po Vanco - contact isolation 8. RUE cellulitis with axillary/cephalic venous thrombosis - PER id 9. Hyperglycemia- GLYCEMIC Control- stable 10. Toxic metabolic encephalopathy 11. Osteoporosis. 12. Pulmonary hypertension. Continue sildenafil. 13. Coronary artery disease with history of PCI. 14. Depression. Continue Cymbalta 15. History of left hip fracture, treated conservatively. Problems: Subjective 24 Hr Interval Summary Free Text/Dictation Patient remains intubated but is awake and alert. Exam/Review of Systems Vital Signs Vitals Vital Signs Date Time Temp Pulse Resp B/P Pulse Ox O2 Delivery O2 Flow Rate FiO2 08/15/16 12:00 93 08/15/16 12:00 97.4 17 123/62 96 Mechanical Ventilator 08/15/16 11:20 30 Intake and Output 08/14/16 08/14/16 08/15/16 15:00 23:00 07:00 Intake Total 840 ml 655 ml 350 ml Output Total 3000 ml Balance -2160 ml 655 ml 350 ml Exam Constitutional: alert, well developed Neck: supple Respiratory: diminished breath sounds Cardiovascular: regular rate and rhythm Gastrointestinal: non-tender, soft Extremities: normal pulses Results Result Diagram: 08/15/16 0400 08/15/16 0400 Results 24 hrs Laboratory Tests Test 08/14/16 17:57 08/14/16 21:11 08/15/16 00:56 08/15/16 04:00 Bedside Glucose 137 129 148 Anion Gap 17 H Basophils # 0.0 Basophils % 0.2 Blood Morphology Comment Blood Urea Nitrogen 67 #H Calcium Level 7.7 L Carbon Dioxide Level 28 Chloride Level 99 Creatinine 3.08 #H Eosinophils # 0.0 Eosinophils % 0.1 Glucose Level 99 Hematocrit 28.9 L Hemoglobin 9.4 L Lymphocytes # 0.7 L Lymphocytes % 6.1 L Magnesium Level 2.3 Mean Corpuscular Hemoglobin 31.8 Mean Corpuscular Hemoglobin Concent 32.7 Mean Corpuscular Volume 97.4 Mean Platelet Volume 8.1 Monocytes # 0.5 Monocytes % 4.2 Neutrophils # 9.6 H Neutrophils % 89.4 H Nucleated Red Blood Cells # 0.0 Nucleated Red Blood Cells % 0.0 Phosphorus Level 3.8 Platelet Count 121 L Potassium Level 3.5 Red Blood Count 2.97 L Red Cell Distribution Width 14.7 H Sodium Level 140 White Blood Count 10.7 Test 08/15/16 05:53 08/15/16 07:12 08/15/16 08:00 08/15/16 09:35 Bedside Glucose 119 93 Lab Scanned Report REFERENCE LAB Arterial Blood HCO3 24.5 Arterial Blood Base Excess 1.0 Arterial Blood Oxygen Saturation 94.0 L Jerod Test N/A Arterial Blood Gas Puncture Site Right Brachial Arterial Blood Carboxyhemoglobin 0.3 Arterial Blood Date Drawn 08/15/2016 8:00:41 AM Arterial Blood Methemoglobin 0.1 Arterial Blood pCO2 (Temp correct) 34.8 L Arterial Blood pH (Temp corrected) 7.466 H Arterial Blood pO2 (Temp corrected) 72.9 L Blood Gas A-a O2 Differential 100.1 H Blood Gas Actual Respiration Rate 16 Blood Gas Low PEEP Setting 5.0 Blood Gas Modality VENT - SIMV Blood Gas Notified Time 08/15/2016 8:22:38 AM Blood Gas Notified Whom JLD Blood Gas Pressure Support 15 Blood Gas Respiration Rate 8.0 Blood Gas Specimen Source Blood arterial Blood Gas Temperature 37.0 Blood Gas Tidal Volume 550.0 FiO2 30.0 Oxyhemoglobin Percent 93.6 Total Hemoglobin 10.5 L Medications Medications Current Medications Fluticasone Propionate (Flonase 0.05% Nasal) 1 spray BID NASAL Last administered on 08/15/16at 09:35; Admin Dose 1 SPRAY; Start 07/26/16 at 10:00 Epoetin [place] (Epogen (Esrd)) 10,000 units MoWeFr@17 SC Last administered on 17:55; Admin Dose 10,000 UNITS; Start 07/27/16 at 17:00; Status Future hold Hydralazine HCl 10 mg 10 mg Q6H PRN IV ELEVATED BLOOD PRESSURE Last administered on 07/29/16at 12:59; Admin Dose 10 MG; Start 07/29/16 at 13:00 Midazolam HCl 50 mg/Dextrose 50 ml @ 1 mls/hr TITRATE IV Last administered on 08/15/16 01:08; Admin Dose 3 MLS/HR; Start 08/01/16 at 23:00 Fentanyl/Dextrose (D5W) 100 ml @ 2.6 mls/hr TITRATE IV Last administered on 05:54; Admin Dose 2.6 MLS/HR; Start 08/01/16 at 23:00 Acetaminophen (Tylenol Tab) 650 mg Q6H PRN GTB PAIN1-3/FEVER ABOVE 100 Last administered on 08/12/16 06:07; Admin Dose 650 MG; Start 08/02/16 at 15:00 Atorvastatin Calcium (Lipitor) 40 mg HS GTB Last administered on 08/14/16 21: 04; Admin Dose 40 MG; Start 08/02/16 at 21:00 Carvedilol (Coreg) 6.25 mg BID GTB ; Start 08/02/16 at 09:00; Status Future Hold Duloxetine HCl (Cymbalta) 90 mg DAILY GTB Last administered on 08/15/16 09:49 ; Admin Dose 90 MG; Start 08/02/16 at 09:00 Guaifenesin (Robitussin Liquid Cup) 100 mg Q4 PRN GTB COUGH; Start 08/02/16 at 09:00 Acetaminophen/ Hydrocodone Bitart ([place] (5/325)) 1 tab Q4 PRN GTB WSOB Last administered on 08/08/16 09:01; Admin Dose 1 TAB; Start 08/02/16 at 09:00 Lactobacillus Acidoph/Bulgaricus (Floranex) 1 tab DAILY GTB Last administered on 08/15/16 09:49; Admin Dose 1 TAB; Start 08/02/16 at 09:00 Lorazepam (Ativan) 1 mg Q6H PRN GTB ANXIETY Last administered on 08/08/16 21: 02; Admin Dose 1 MG; Start 08/02/16 at 09:00 Multivit/Ca Carb/ B Cmplx/FA/Prenat (Cheryl-Darcie) 1 tab DAILY GTB Last administered on 08/15/16 09:49; Admin Dose 1 TAB; Start 08/02/16 at 09:00 Aspirin (Aspirin) 81 mg DAILY GTB Last administered on 08/15/16 09:49; Admin Dose 81 MG; Start 08/02/16 at 09:00 Lansoprazole 30 mg 30 mg DAILY@06 GTB Last administered on 08/15/16 05:48; Admin Dose 30 MG; Start 08/02/16 at 10:00 Phenylephrine HCl 80 mg/Dextrose 250 ml @ 18.75 mls/ hr TITRATE IV ; Start at 12:30 Norepinephrine/ Dextrose (Levophed/D5W) 500 ml @ 1.87 mls/hr TITRATE IV Last administered on 08/05/16 14:51; Admin Dose 22.5 MLS/HR; Start 08/05/16 at 12: 00 Vancomycin HCl (Vancomycin Oral Syringe) 125 mg Q6 NGT Last administered on 11:34; Admin Dose 125 MG; Start 08/06/16 at 18:00 Sildenafil Citrate (Revatio) 20 mg BID PO Last administered on 08/11/16 11:56 ; Admin Dose 20 MG; Start 08/08/16 at 21:00; Status Future Hold Warfarin Sodium (Coumadin) 2.5 mg DAILY@17 GTB Last administered on 08/14/16 18:27; Admin Dose 2.5 MG; Start 08/08/16 at 17:00 Lorazepam (Ativan) 0.5 mg Q4 PRN IV ANXIETY Last administered on 08/09/16 10: 51; Admin Dose 0.5 MG; Start 08/09/16 at 00:00 Methylprednisolone Sodium Succinate (Solu-Medrol) 20 mg DAILY IV Last administered on 08/15/16 09:46; Admin Dose 20 MG; Start 08/10/16 at 09:00 Insulin Glargine (Lantus) 30 unit QAM SC Last administered on 08/15/16at 09:39 ; Admin Dose 30 UNIT; Start 08/11/16 at 12:00 Miscellaneous Information 1 ea NOTE XX ; Start 08/11/16 at 12:00 Glucose (Glutose) 15 gm Q15M PRN PO DECREASED GLUCOSE; Start 08/11/16 at 12:00 Glucose (Glutose) 22.5 gm Q15M PRN PO DECREASED GLUCOSE; Start 08/11/16 at 12: 00 Dextrose (D50w Syringe) 25 ml Q15M PRN IV DECREASED GLUCOSE; Start 08/11/16 at 12:00 Dextrose (D50w Syringe) 50 ml Q15M PRN IV DECREASED GLUCOSE; Start 08/11/16 at 12:00 Glucagon (Glucagen) 1 mg Q15M PRN IM DECREASED GLUCOSE; Start 08/11/16 at 12: 00 Glucose 15 gm 15 gm Q15M PRN BUCCAL DECREASED GLUCOSE; Start 08/11/16 at 12:00 Caspofungin/ Sodium Chloride (Cancidas/NS) 250 ml @ 250 mls/hr Q24H IVPB Last administered on 08/14/16at 18:26; Admin Dose 250 MLS/HR; Start 08/12/16 at 14: 00 Insulin Aspart (Novolog Insulin Pen) NOVOLOG *MODERATE* ALGORI... Q4 SC Last administered on 08/15/16at 01:02; Admin Dose 2 UNIT; Start 08/11/16 at 17:00 IV Flush 10 ml 10 ml PRN PRN IV IV PROTOCOL; Start 08/13/16 at 18:00 Cefazolin Sodium (Ancef 1 Gm/50 ml (Pmx)) 50 ml @ 100 mls/hr Q24H IVPB Last administered on 08/14/16at 18:27; Admin Dose 100 MLS/HR; Start 08/14/16 at 17: 00 Collagenase (Santyl) 1 applic DAILY@22 TOP ; Start 08/15/16 at 22:00 LESLIE PEDROZA Aug 15, 2016 12:41
[2016-08-15 13:15] LABS: AADO2 Arterial 107.8 mmHg (7.0-24.0); Arterial Base Excess 1.8 mmol/L (-3.0-3); Arterial COHb 0.1 % (0.0-3.0); Arterial Fraction of Oxyhgb 90.5 % (93.0-99.0); Arterial HCO3 25.7 mmol/L (22.0-26.0); Arterial MetHb 0.2 % (0.0-1.5); Arterial Total Hemglobin 11.5 g/dl (12.0-18.0); Blood Gas PS 10; MODE VENT - CPAP
--- NOTE | 2016-08-15 13:31 | CONS ---
Date/Time of Note Date/Time of Note DATE: 08/15/16 TIME: 13:29 Assessment/Plan Assessment/Plan Additional Assessment/Plan Respiratory failure status post intubation Sepsis Minimally elevated troponin Partial right internal jugular DVT Diastolic congestive heart failure End-stage renal disease on hemodialysis CAD with history of PCI Diabetes Peripheral arterial disease with history of amputation Pulmonary hypertension -pt with labile bp and anti-HTN meds on hold, undergoing weaning attempts, no new cardiac orders Consultation Date/Type/Reason Admit Date/Time Jul 26, 2016 at 01:55 Type of Consultation: cv Referring Provider: GRACIE KATHLEEN 24 HR Interval Summary Free Text/Dictation pt remains intubated Exam/Review of Systems Vital Signs Vitals Vital Signs Date Time Temp Pulse Resp B/P Pulse Ox O2 Delivery O2 Flow Rate FiO2 08/15/16 12:30 97 18 138/68 96 08/15/16 12:00 97.4 Mechanical Ventilator 08/15/16 11:20 30 Intake and Output 08/14/16 08/14/16 08/15/16 15:00 23:00 07:00 Intake Total 840 ml 655 ml 350 ml Output Total 3000 ml Balance -2160 ml 655 ml 350 ml Exam follows some commands Constitutional: alert Head: normocephalic ENMT: intubated Respiratory: other (course bs, no wheeze) Gastrointestinal: bowel sounds, non-tender, soft Extremities: edema Results Result Diagram: 08/15/16 0400 08/15/16 0400 Results 24 hrs Laboratory Tests Test 08/14/16 17:57 08/14/16 21:11 08/15/16 00:56 08/15/16 04:00 Bedside Glucose 137 129 148 Anion Gap 17 H Basophils # 0.0 Basophils % 0.2 Blood Morphology Comment Blood Urea Nitrogen 67 #H Calcium Level 7.7 L Carbon Dioxide Level 28 Chloride Level 99 Creatinine 3.08 #H Eosinophils # 0.0 Eosinophils % 0.1 Glucose Level 99 Hematocrit 28.9 L Hemoglobin 9.4 L Lymphocytes # 0.7 L Lymphocytes % 6.1 L Magnesium Level 2.3 Mean Corpuscular Hemoglobin 31.8 Mean Corpuscular Hemoglobin Concent 32.7 Mean Corpuscular Volume 97.4 Mean Platelet Volume 8.1 Monocytes # 0.5 Monocytes % 4.2 Neutrophils # 9.6 H Neutrophils % 89.4 H Nucleated Red Blood Cells # 0.0 Nucleated Red Blood Cells % 0.0 Phosphorus Level 3.8 Platelet Count 121 L Potassium Level 3.5 Red Blood Count 2.97 L Red Cell Distribution Width 14.7 H Sodium Level 140 White Blood Count 10.7 Test 08/15/16 05:53 08/15/16 07:12 08/15/16 08:00 08/15/16 09:35 Bedside Glucose 119 93 Lab Scanned Report REFERENCE LAB Arterial Blood HCO3 24.5 Arterial Blood Base Excess 1.0 Arterial Blood Oxygen Saturation 94.0 L Jerod Test N/A Arterial Blood Gas Puncture Site Right Brachial Arterial Blood Carboxyhemoglobin 0.3 Arterial Blood Date Drawn 08/15/2016 8:00:41 AM Arterial Blood Methemoglobin 0.1 Arterial Blood pCO2 (Temp correct) 34.8 L Arterial Blood pH (Temp corrected) 7.466 H Arterial Blood pO2 (Temp corrected) 72.9 L Blood Gas A-a O2 Differential 100.1 H Blood Gas Actual Respiration Rate 16 Blood Gas Low PEEP Setting 5.0 Blood Gas Modality VENT - SIMV Blood Gas Notified Time 08/15/2016 8:22:38 AM Blood Gas Notified Whom JLD Blood Gas Pressure Support 15 Blood Gas Respiration Rate 8.0 Blood Gas Specimen Source Blood arterial Blood Gas Temperature 37.0 Blood Gas Tidal Volume 550.0 FiO2 30.0 Oxyhemoglobin Percent 93.6 Total Hemoglobin 10.5 L Test 08/15/16 12:18 Arterial Blood HCO3 25.7 Arterial Blood Base Excess 1.8 Arterial Blood Oxygen Saturation 90.8 L Jerod Test N/A Arterial Blood Gas Puncture Site Right Brachial Arterial Blood Carboxyhemoglobin 0.1 Arterial Blood Date Drawn 08/15/2016 12:50:09 PM Arterial Blood Methemoglobin 0.2 Arterial Blood pCO2 (Temp correct) 37.6 Arterial Blood pH (Temp corrected) 7.452 H Arterial Blood pO2 (Temp corrected) 61.9 L Blood Gas A-a O2 Differential 107.8 H Blood Gas Actual Respiration Rate 29 Blood Gas Low PEEP Setting 5.0 Blood Gas Modality VENT - CPAP Blood Gas Notified Time 08/15/2016 1:14:54 PM Blood Gas Notified Whom JLD Blood Gas Pressure Support 10 Blood Gas Specimen Source Blood arterial Blood Gas Temperature 37.0 FiO2 30.0 Oxyhemoglobin Percent 90.5 L Total Hemoglobin 11.5 L Medications Medications Current Medications Fluticasone Propionate (Flonase 0.05% Nasal) 1 spray BID NASAL Last administered on 08/15/16at 09:35; Admin Dose 1 SPRAY; Start 07/26/16 at 10:00 Epoetin [place] (Epogen (Esrd)) 10,000 units MoWeFr@17 SC Last administered on at 17:55; Admin Dose 10,000 UNITS; Start 07/27/16 at 17:00; Status Future hold Hydralazine HCl 10 mg 10 mg Q6H PRN IV ELEVATED BLOOD PRESSURE Last administered on 07/29/16at 12:59; Admin Dose 10 MG; Start 07/29/16 at 13:00 Midazolam HCl 50 mg/Dextrose 50 ml @ 1 mls/hr TITRATE IV Last administered on 08/15/16at 01:08; Admin Dose 3 MLS/HR; Start 08/01/16 at 23:00 Fentanyl/Dextrose (D5W) 100 ml @ 2.6 mls/hr TITRATE IV Last administered on at 05:54; Admin Dose 2.6 MLS/HR; Start 08/01/16 at 23:00 Acetaminophen (Tylenol Tab) 650 mg Q6H PRN GTB PAIN1-3/FEVER ABOVE 100 Last administered on 08/12/16at 06:07; Admin Dose 650 MG; Start 08/02/16 at 15:00 Atorvastatin Calcium (Lipitor) 40 mg HS GTB Last administered on 08/14/16at 21: 04; Admin Dose 40 MG; Start 08/02/16 at 21:00 Carvedilol (Coreg) 6.25 mg BID GTB ; Start 08/02/16 at 09:00; Status Future Hold Duloxetine HCl (Cymbalta) 90 mg DAILY GTB Last administered on 08/15/16at 09:49 ; Admin Dose 90 MG; Start 08/02/16 at 09:00 Guaifenesin (Robitussin Liquid Cup) 100 mg Q4 PRN GTB COUGH; Start 08/02/16 at 09:00 Acetaminophen/ Hydrocodone Bitart ([place] (5/325)) 1 tab Q4 PRN GTB WSOB Last administered on 08/08/16at 09:01; Admin Dose 1 TAB; Start 08/02/16 at 09:00 Lactobacillus Acidoph/Bulgaricus (Floranex) 1 tab DAILY GTB Last administered on 08/15/16 09:49; Admin Dose 1 TAB; Start 08/02/16 at 09:00 Lorazepam (Ativan) 1 mg Q6H PRN GTB ANXIETY Last administered on 08/08/16 21: 02; Admin Dose 1 MG; Start 08/02/16 at 09:00 Multivit/Ca Carb/ B Cmplx/FA/Prenat (Cheryl-Darcie) 1 tab DAILY GTB Last administered on 08/15/16 09:49; Admin Dose 1 TAB; Start 08/02/16 at 09:00 Aspirin (Aspirin) 81 mg DAILY GTB Last administered on 08/15/16 09:49; Admin Dose 81 MG; Start 08/02/16 at 09:00 Lansoprazole 30 mg 30 mg DAILY@06 GTB Last administered on 08/15/16 05:48; Admin Dose 30 MG; Start 08/02/16 at 10:00 Phenylephrine HCl 80 mg/Dextrose 250 ml @ 18.75 mls/ hr TITRATE IV ; Start at 12:30 Norepinephrine/ Dextrose (Levophed/D5W) 500 ml @ 1.87 mls/hr TITRATE IV Last administered on 08/05/16 14:51; Admin Dose 22.5 MLS/HR; Start 08/05/16 at 12: 00 Vancomycin HCl (Vancomycin Oral Syringe) 125 mg Q6 NGT Last administered on 11:34; Admin Dose 125 MG; Start 08/06/16 at 18:00 Sildenafil Citrate (Revatio) 20 mg BID PO Last administered on 08/11/16 11:56 ; Admin Dose 20 MG; Start 08/08/16 at 21:00; Status Future Hold Warfarin Sodium (Coumadin) 2.5 mg DAILY@17 GTB Last administered on 08/14/16 18:27; Admin Dose 2.5 MG; Start 08/08/16 at 17:00 Lorazepam (Ativan) 0.5 mg Q4 PRN IV ANXIETY Last administered on 08/09/16 10: 51; Admin Dose 0.5 MG; Start 08/09/16 at 00:00 Methylprednisolone Sodium Succinate (Solu-Medrol) 20 mg DAILY IV Last administered on 12/28/16at 09:46; Admin Dose 20 MG; Start 08/10/16 at 09:00 Insulin Glargine (Lantus) 30 unit QAM SC Last administered on 08/15/16at 09:39 ; Admin Dose 30 UNIT; Start 08/11/16 at 12:00 Miscellaneous Information 1 ea NOTE XX ; Start 08/11/16 at 12:00 Glucose (Glutose) 15 gm Q15M PRN PO DECREASED GLUCOSE; Start 08/11/16 at 12:00 Glucose (Glutose) 22.5 gm Q15M PRN PO DECREASED GLUCOSE; Start 08/11/16 at 12: 00 Dextrose (D50w Syringe) 25 ml Q15M PRN IV DECREASED GLUCOSE; Start 08/11/16 at 12:00 Dextrose (D50w Syringe) 50 ml Q15M PRN IV DECREASED GLUCOSE; Start 08/11/16 at 12:00 Glucagon (Glucagen) 1 mg Q15M PRN IM DECREASED GLUCOSE; Start 08/11/16 at 12: 00 Glucose 15 gm 15 gm Q15M PRN BUCCAL DECREASED GLUCOSE; Start 08/11/16 at 12:00 Caspofungin/ Sodium Chloride (Cancidas/NS) 250 ml @ 250 mls/hr Q24H IVPB Last administered on 08/14/16at 18:26; Admin Dose 250 MLS/HR; Start 08/12/16 at 14: 00 Insulin Aspart (Novolog Insulin Pen) NOVOLOG *MODERATE* ALGORI... Q4 SC Last administered on 08/15/16at 01:02; Admin Dose 2 UNIT; Start 08/11/16 at 17:00 IV Flush 10 ml 10 ml PRN PRN IV IV PROTOCOL; Start 08/13/16 at 18:00 Cefazolin Sodium (Ancef 1 Gm/50 ml (Pmx)) 50 ml @ 100 mls/hr Q24H IVPB Last administered on 08/14/16at 18:27; Admin Dose 100 MLS/HR; Start 08/14/16 at 17: 00 Collagenase (Santyl) 1 applic DAILY@22 TOP ; Start 08/15/16 at 22:00 Solo Leon DO Aug 15, 2016 13:31
[2016-08-15] MEDS ORDERED: ALBUTEROL/IPRATROPIUM (NEB) 3 ML AMP HHN PRN (14:00)
[2016-08-15] MEDS: CASPOFUNGIN 35 MG in SOD CHLORIDE 0.9% 250 ML IVPB SCH (14:23)
[2016-08-15] MEDS: DEXTROSE 5%-0.45% NACL 1,000 ML IV SCH (14:30)
[2016-08-15] MEDS: ALBUTEROL/IPRATROPIUM (NEB) 3 ML AMP HHN SCH ×2 (15:14→20:59)
[2016-08-15] MEDS: hydrALAzine 20 MG INJ IV PRN (15:37)
[2016-08-15] MEDS: CEFAZOLIN 1 GM/50 ML (PMX) 50 ML IVPB SCH (17:08)
[2016-08-15] MEDS: EPOETIN 10000 UNITS/1 ML INJ (ESRD) SC SCH (17:13)
[2016-08-15] MEDS: WARFARIN 2.5 MG TAB GTB SCH (17:14)
[2016-08-15] MEDS: ATORVASTATIN 40 MG TAB GTB SCH (21:00)
[2016-08-15] MEDS: COLLAGENASE 30 GM TUBE TOP SCH (21:20)
[2016-08-15 21:45] LABS: AADO2 Arterial 131.6 mmHg (7.0-24.0); Arterial Base Excess -2.9 mmol/L (-3.0-3); Arterial COHb 0.4 % (0.0-3.0); Arterial Fraction of Oxyhgb 76.1 % (93.0-99.0); Arterial HCO3 27.4 mmol/L (22.0-26.0); Arterial MetHb 0.3 % (0.0-1.5); Arterial Total Hemglobin 12.5 g/dl (12.0-18.0); MODE NASAL CANNULA
--- NOTE | 2016-08-15 22:31 | EN ---
Date/Time of Note Date/Time of Note DATE: 08/15/16 TIME: 22:30 ER Progress Note I was called to ICU room 102 for evaluation of the patient in respiratory distress. I when I entered the room I saw patient in severe respiratory distress. This patient has had a previous history of multiple intubations with extubation this morning. He did not appear to be alert, was not a candidate for BiPAP. Patient was intubated for airway protection. Please see intubation note. Endotracheal Intubation by me: Pre assessment performed. See preceding note for details. Pre-oxygenation performed with 100% oxygen RSI: Performed w/o complication or hypoxic events. Medications as ordered. Blade: [Mac 4] ET Tube: 7.5] cm Depth: 23] cm at the lip Intubation confirmed by colorimetric CO2, equal breath sounds, quiet over the stomach. Chest X-ray 1V Interpreted by me: 3 cm above the sofie ET tube. Normal soft tissue, No pneumothorax. CARA SOOD DO Aug 15, 2016 22:31
[2016-08-15 23:39] LABS: AADO2 Arterial 436.8 mmHg (7.0-24.0); Allen Test ACCEPTAB; Arterial Base Excess -1.8 mmol/L (-3.0-3); Arterial COHb 0.1 % (0.0-3.0); Arterial Fraction of Oxyhgb 98.8 % (93.0-99.0); Arterial HCO3 23.7 mmol/L (22.0-26.0); Arterial MetHb 0.2 % (0.0-1.5); Arterial Total Hemglobin 11.7 g/dl (12.0-18.0); MODE VENT - AC
[2016-08-16] VITALS (110 sets, daily range): BP systolic 71–174; BP diastolic 20–95; PULSE 94–120; RESP 10–25
--- NOTE | 2016-08-16 00:43 | RADRPT ---
PROCEDURE: XR Chest. CLINICAL INDICATION: intubation TECHNIQUE: Single frontal view of the chest was obtained. COMPARISON: 08/15/2016 FINDINGS: The cardiomediastinal silhouette is normal size. Pulmonary vasculature is within normal limits. Th ere is diffuse prominence of interstitial markings. There is an endotracheal tube placed 2.8 cm fro m the sofie. There is a nasogastric tube looped within the gastric body. There is a right PICC li ne extending to the cavoatrial junction region.. No signs of pleural fluid or pneumothorax are seen. The osseous structures and soft tissues are unre markable. IMPRESSION: 1. Endotracheal tube in place, 2.8 cm from the sofie. Nasogastric tube and right PICC line in michaela ce. 2. Prominence of interstitial markings likely reflecting chronic change. RPTAT: HBST .Imer Morse MD, Date Time Electronically viewed and signed by .Imer Morse MD, on 08/16/2016 00:43 .T/
[2016-08-16] MEDS: INSULIN ASPART [NOVOLOG] 3 ML PEN SC SCH ×6 (01:00→20:00)
[2016-08-16] MEDS: VANCOMYCIN HCL 250 MG/5ML POSYG NGT SCH ×4 (01:17→17:28)
[2016-08-16] MEDS ORDERED: NORepinephrine 8MG/250 ML (PMX 250 ML ONE (02:13)
[2016-08-16] MEDS: IPRATROPIUM (HFA) 12.9 GM INHALER INH SCH ×4 (03:44→20:10)
[2016-08-16] MEDS: ALBUTEROL HFA 8 GM INHALER INH SCH ×4 (03:44→20:10)
[2016-08-16] MEDS: LANSOPRAZOLE 30 MG CAP GTB SCH (05:48)
[2016-08-16] MEDS: MIDAZOLAM 50 MG in DEXTROSE 5% 40 ML IV SCH ×2 (05:57→20:00)
[2016-08-16 06:04] LABS: BASOPHIL # 0.1 10^3/ul (0.0-0.1); BASOPHILS % 0.5 % (0.0-2.0); HEMATOCRIT 32.3 % (42.0-52.0); HEMOGLOBIN 10.6 g/dl (14.0-18.0); LYMPHOCYTES # 1.1 10^3/ul (0.8-2.9); LYMPHOCYTES % 4.4 % (15.0-51.0); MEAN CORPUSCULAR HEMOGLOBIN 31.9 pg (29.0-33.0); MEAN CORPUSCULAR VOLUME 96.7 fl (82.0-101.0); MEAN PLATELET VOLUME 7.4 fl (7.4-10.4); MONOCYTE # 0.7 10^3/ul (0.3-0.9); MONOCYTES % 2.9 % (0.0-11.0); NEUTROPHIL # 22.9 10^3/ul (1.6-7.5); NEUTROPHILS % 92.2 % (39.0-77.0); PLATELET COUNT 200 10^3/UL (140-440); RED BLOOD COUNT 3.34 10^6/ul (4.70-6.10); RED CELL DISTRIBUTION WIDTH 14.7 % (11.5-14.5); UNCORRECTED WBC 24.9 10^3/ul (4.8-10.8); WHITE BLOOD COUNT 24.9 10^3/ul (4.8-10.8)
[2016-08-16 06:11] LABS: INR 1.73; PROTIME 20.4 Sec (12.2-14.2); PT RATIO 1.6
[2016-08-16 06:18] LABS: CONDITION 1; LH ANALYZER COMMENTS 1; POTASSIUM 3.6 mmol/L (3.5-5.1); SUSPECT 1
[2016-08-16 06:21] LABS: CREATININE 3.83 mg/dl (0.61-1.24); PHOSPHORUS 4.5 mg/dl (2.5-4.9)
[2016-08-16 06:22] LABS: CALCIUM 7.7 mg/dl (8.4-10.2)
[2016-08-16 08:24] LABS: AADO2 Arterial 427.6 mmHg (7.0-24.0); Allen Test ACCEPTAB; Arterial Base Excess -1.1 mmol/L (-3.0-3); Arterial COHb 0.2 % (0.0-3.0); Arterial Fraction of Oxyhgb 97.4 % (93.0-99.0); Arterial MetHb 0.2 % (0.0-1.5); Arterial Total Hemglobin 10.9 g/dl (12.0-18.0); MODE VENT - AC
[2016-08-16] MEDS: LACTOBACILLUS CHEW TAB GTB SCH (09:30)
[2016-08-16] MEDS: ASPIRIN 81 MG TAB GTB SCH (09:30)
[2016-08-16] MEDS: MULTIVIT/CA CARB/B CMPLX/FA TAB GTB SCH (09:30)
[2016-08-16] MEDS: FLUTICASONE 0.05% 16 GM NAS SPRAY NASAL SCH ×2 (09:31→19:59)
[2016-08-16] MEDS: DULOXETINE 30 MG CAP DR GTB SCH (09:31)
[2016-08-16] MEDS: METHYLPREDNISOLONE 40 MG INJ IV SCH (09:31)
[2016-08-16] MEDS: DEXTROSE 50% 50 ML SYRINGE IV PRN (09:32)
--- NOTE | 2016-08-16 10:11 | CONS ---
Date/Time of Note Date/Time of Note DATE: 08/16/16 TIME: 10:03 Assessment/Plan Assessment/Plan Chief Complaint/Hosp Course - acute hypoxemic respiratory failure - intubated 07/31; reintubated last night. Will need trach. - aspiration PNA (Respiratory cx grew 08/02 rare C. albicans and on 08/10 grew MSSA and C. Albicans) - SIRS with worsening leukocytosis and tachycardia d/t stress response from reintubation. Remains afebrile. - Hypotension d/t sedation after reintubation requiring low dose pressor - Sepsis d/t C diff colitis - C diff colitis - intermittent fever - resolved - S/p hypotension after HD requiring short term Levophed 08/02 and 08/04/16-; on steroid trial. 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 - coagulopathy d/t warfarin - PAD with Hx Left BKA - Parkinson's - Stage 2 coccyx decub - PCN allergic - s/p Primaxin (08/05- 08/14), IV vanco (07/29-08/13), aztreonam (07/29-08/05) - DNR Recommendations: - Continue IV cefazolin x 10- 14 days (08/14/16-) - Continue PO vanco via OGT (07/1916-) for duration of systemic abx and then 10 days thereafter - Continue caspofungin (08/12/16-) empirically based on borderline positive beta d glucan- finish 14 days - F/u procalcitonin (08/10 & 08/11 pending) - Wean off pressor as tolerated - Will need trach and PEG - Trend WBC (still on low dose steroid) - Above d/w Dr. Alexander - Critical care time spent: 45 minutes Problems: Consultation Date/Type/Reason Admit Date/Time Jul 26, 2016 at 01:55 Initial Consult Date 07/29/16 Type of Consultation: Infectious Disease Reason for Consultation Antibiotic management Referring Provider: GRACIE KATHLEEN 24 HR Interval Summary Free Text/Dictation Extubated yesterday and later re-intubated overnight; Placed on low dose pressor d/t hypotension after sedation given for re-intubation and due for HD today per RN Wali. Needs trach and PEG; remains DNR. On Fentanyl and Versed for mild sedation. Has stage 2 decub on coccyx. Subjective hx not possible: pt critical Exam/Review of Systems Vital Signs Vitals Vital Signs Date Time Temp Pulse Resp B/P Pulse Ox O2 Delivery O2 Flow Rate FiO2 08/16/16 08:00 112 08/16/16 07:30 18 112/59 100 Mechanical Ventilator 08/16/16 05:42 80 08/16/16 04:00 98.9 08/15/16 22:00 6.0 Intake and Output 08/15/16 08/15/16 08/16/16 14:59 22:59 06:59 Intake Total 327 ml 484 ml 232.75 ml Output Total 10 ml 40 ml Balance 327 ml 474 ml 192.75 ml Exam Constitutional: frail, other (orally intubated), Head: atraumatic, normocephalic ENMT: mucosa pink and dry. No thrush noted. Neck: supple, no bruits Respiratory: Essentially CTA. No wheezing Cardiovascular: regular rhythm, tachycardic, normal S1 and S2 Gastrointestinal: soft, bowel sounds present, other (NGT with TF; Lower abdominal ecchymosis spreading horizontally at pannus edge; rectal tube intact with liquid brown stool). Extremities: edema (trivial on RLE and trace on sacral area), other (LLE BKA noted; LUE AVF with + bruit/thrill; R foot cool to touch and DP difficult to palpate; left middle finger partial amputation noted) Neurological: Mildly sedated; currently not following commands Skin: ecchymosis (scattered BUE, R>L), nl turgor, other (RUE PICC c/d/i). Wound (coccyx stage 2 with dressing c/d/i and perianal area with dermatitis d/t incontinence - See Nurses note for details). Results Result Diagram: 08/16/16 0540 08/16/16 0540 Results 24 hrs Laboratory Tests Test 08/15/16 12:18 08/15/16 13:21 08/15/16 17:02 08/15/16 21:18 Arterial Blood HCO3 25.7 Arterial Blood Base Excess 1.8 Arterial Blood Oxygen Saturation 90.8 L Jerod Test N/A Arterial Blood Gas Puncture Site Right Brachial Arterial Blood Carboxyhemoglobin 0.1 Arterial Blood Date Drawn 08/15/2016 12:50:09 PM Arterial Blood Methemoglobin 0.2 Arterial Blood pCO2 (Temp correct) 37.6 Arterial Blood pH (Temp corrected) 7.452 H Arterial Blood pO2 (Temp corrected) 61.9 L Blood Gas A-a O2 Differential 107.8 H Blood Gas Actual Respiration Rate 29 Blood Gas Low PEEP Setting 5.0 Blood Gas Modality VENT - CPAP Blood Gas Notified Time 08/15/2016 1:14:54 PM Blood Gas Notified Whom JLD Blood Gas Pressure Support 10 Blood Gas Specimen Source Blood arterial Blood Gas Temperature 37.0 FiO2 30.0 Oxyhemoglobin Percent 90.5 L Total Hemoglobin 11.5 L Bedside Glucose 101 143 187 Test 08/15/16 21:30 08/15/16 23:30 08/16/16 02:20 08/16/16 05:40 Arterial Blood HCO3 27.4 H 23.7 Arterial Blood Base Excess -2.9 -1.8 Arterial Blood Oxygen Saturation 76.6 L 99.1 H Jerod Test N/A ACCEPTAB Arterial Blood Gas Puncture Site Right Brachial Right Radial Arterial Blood Carboxyhemoglobin 0.4 0.1 Arterial Blood Date Drawn 08/15/2016 9:35:58 PM 08/15/2016 11:30:27 PM Arterial Blood Methemoglobin 0.3 0.2 Arterial Blood pCO2 (Temp correct) 79.3 H 43.4 Arterial Blood pH (Temp corrected) 7.157 *L 7.355 Arterial Blood pO2 (Temp corrected) 55.1 L 232.8 H Blood Gas A-a O2 Differential 131.6 H 436.8 H Blood Gas Critical Value Read Back LG BULLARD Blood Gas Modality NASAL CANNULA VENT - AC Blood Gas Notified Time 08/15/2016 9:44:47 PM 08/15/2016 11:39:08 PM Blood Gas Notified Whom YONY BHAKTA Blood Gas Specimen Source Blood arterial Blood arterial Blood Gas Temperature 37.0 37.0 FiO2 39.0 100.0 Oxyhemoglobin Percent 76.1 L 98.8 Total Hemoglobin 12.5 11.7 L Blood Gas Actual Respiration Rate 20 Blood Gas Low PEEP Setting 5.0 Blood Gas Respiration Rate 20.0 Blood Gas Tidal Volume 550.0 Bedside Glucose 103 Anion Gap 22 H Basophils # 0.1 Basophils % 0.5 Blood Morphology Comment Blood Urea Nitrogen 84 H Calcium Level 7.7 L Carbon Dioxide Level 23 Chloride Level 99 Creatinine 3.83 H Eosinophils # 0.0 Eosinophils % 0.0 Glucose Level 73 Hematocrit 32.3 L Hemoglobin 10.6 L INR International Normalized Ratio 1.73 Lymphocytes # 1.1 Lymphocytes % 4.4 L Mean Corpuscular Hemoglobin 31.9 Mean Corpuscular Hemoglobin Concent 33.0 Mean Corpuscular Volume 96.7 Mean Platelet Volume 7.4 Monocytes # 0.7 Monocytes % 2.9 Neutrophils # 22.9 H Neutrophils % 92.2 H Nucleated Red Blood Cells # 0.0 Nucleated Red Blood Cells % 0.0 Phosphorus Level 4.5 Platelet Count 200 # Potassium Level 3.6 Prothrombin Time 20.4 H Prothrombin Time Ratio 1.6 Red Blood Count 3.34 L Red Cell Distribution Width 14.7 H Sodium Level 140 White Blood Count 24.9 #H Test 08/16/16 05:46 08/16/16 07:00 08/16/16 09:28 08/16/16 09:49 Bedside Glucose 85 65 L 107 Arterial Blood HCO3 22.0 Arterial Blood Base Excess -1.1 Arterial Blood Oxygen Saturation 97.8 Jerod Test ACCEPTAB Arterial Blood Gas Puncture Site Right Radial Arterial Blood Carboxyhemoglobin 0.2 Arterial Blood Date Drawn 08/16/2016 7:30:50 AM Arterial Blood Methemoglobin 0.2 Arterial Blood pCO2 (Temp correct) 31.1 L Arterial Blood pH (Temp corrected) 7.467 H Arterial Blood pO2 (Temp corrected) 110.2 H Blood Gas A-a O2 Differential 427.6 H Blood Gas Actual Respiration Rate 21 Blood Gas Low PEEP Setting 5.0 Blood Gas Modality VENT - AC Blood Gas Notified Time 08/16/2016 8:24:35 AM Blood Gas Notified Whom JLD Blood Gas Respiration Rate 20.0 Blood Gas Specimen Source Blood arterial Blood Gas Temperature 37.0 Blood Gas Tidal Volume 550.0 FiO2 80.0 Oxyhemoglobin Percent 97.4 Total Hemoglobin 10.9 L Respiratory Culture 08/10/16 GRAM STAIN Final POLYMORPH. LEUKOCYTE 2+ GRAM POS COCCI IN PAIRS RARE MONONUCLEAR WBC 3+ RESPIRATORY CULTURE Final Organism 1 STAPHYLOCOCCUS AUREUS QUANTITY SCANT GROWTH Organism 2 BREONNA ALBICANS QUANTITY SCANT GROWTH S AUREUS M.I.C. RX --------- --- CEFAZOLIN S CIPROFLOXACIN >=8 R CLINDAMYCIN >=8 R DOXYCYCLINE S ERYTHROMYCIN >=8 R LEVOFLOXACIN >=8 R OXACILLIN 0.5 S PENICILLIN-G >=0.5 R RIFAMPIN <=0.5 S VANCOMYCIN <=0.5 S TRIMETHOPRIM/SULFAMETHOXAZOLE <=10 S Blood cultures on 07/29, 08/09 & 08/10: Negative to date Respiratory culture 08/02: GRAM STAIN Final POLYMORPH. LEUKOCYTE RARE . NO ORGANISM SEEN RESPIRATORY CULTURE Final Organism 1 BREONNA ALBICANS QUANTITY RARE Organism 2 NORMAL RESPIRATORY MEKHI QUANTITY SCANT GROWTH C diff 08/06: Positive MRSA screen 07/27: Negative Medications Medications Current Medications Fluticasone Propionate (Flonase 0.05% Nasal) 1 spray BID NASAL Last administered on 08/16/16 09:31; Admin Dose 1 SPRAY; Start 07/26/16 at 10:00 Epoetin [place] (Epogen (Esrd)) 10,000 units MoWeFr@17 SC Last administered on 17:13; Admin Dose 10,000 UNITS; Start 07/27/16 at 17:00; Status Future hold Hydralazine HCl 10 mg 10 mg Q6H PRN IV ELEVATED BLOOD PRESSURE Last administered on 08/15/16at 15:37; Admin Dose 10 MG; Start 07/29/16 at 13:00 Midazolam HCl/ Dextrose (Versed/D5W) 50 ml @ 1 mls/hr TITRATE IV Last administered on 08/15/16 23:00; Admin Dose 5 MLS/HR; Start 08/01/16 at 23:00 Acetaminophen (Tylenol Tab) 650 mg Q6H PRN GTB PAIN1-3/FEVER ABOVE 100 Last administered on 08/12/16 06:07; Admin Dose 650 MG; Start 08/02/16 at 15:00 Atorvastatin Calcium (Lipitor) 40 mg HS GTB Last administered on 08/14/16at 21: 04; Admin Dose 40 MG; Start 08/02/16 at 21:00 Carvedilol (Coreg) 6.25 mg BID GTB ; Start 08/02/16 at 09:00; Status Future Hold Duloxetine HCl (Cymbalta) 90 mg DAILY GTB Last administered on 08/16/16 09:31 ; Admin Dose 90 MG; Start 08/02/16 at 09:00 Guaifenesin (Robitussin Liquid Cup) 100 mg Q4 PRN GTB COUGH; Start 08/02/16 at 09:00 Acetaminophen/ Hydrocodone Bitart ([place] (5/325)) 1 tab Q4 PRN GTB WSOB Last administered on 08/08/16 09:01; Admin Dose 1 TAB; Start 08/02/16 at 09:00 Lactobacillus Acidoph/Bulgaricus (Floranex) 1 tab DAILY GTB Last administered on 08/16/16 09:30; Admin Dose 1 TAB; Start 08/02/16 at 09:00 Lorazepam (Ativan) 1 mg Q6H PRN GTB ANXIETY Last administered on 08/08/16 21: 02; Admin Dose 1 MG; Start 08/02/16 at 09:00 Multivit/Ca Carb/ B Cmplx/FA/Prenat (Cheryl-Darcie) 1 tab DAILY GTB Last administered on 08/16/16 09:30; Admin Dose 1 TAB; Start 08/02/16 at 09:00 Aspirin (Aspirin) 81 mg DAILY GTB Last administered on 08/16/16 09:30; Admin Dose 81 MG; Start 08/02/16 at 09:00 Lansoprazole 30 mg 30 mg DAILY@06 GTB Last administered on 08/16/16 05:48; Admin Dose 30 MG; Start 08/02/16 at 10:00 Phenylephrine HCl 80 mg/Dextrose 250 ml @ 18.75 mls/ hr TITRATE IV ; Start at 12:30 Norepinephrine/ Dextrose (Levophed/D5W) 500 ml @ 1.87 mls/hr TITRATE IV Last administered on 08/16/16 01:50; Admin Dose 3.75 MLS/HR; Start 08/05/16 at 12: 00 Vancomycin HCl (Vancomycin Oral Syringe) 125 mg Q6 NGT Last administered on 05:48; Admin Dose 125 MG; Start 08/06/16 at 18:00 Sildenafil Citrate (Revatio) 20 mg BID PO Last administered on 08/11/16 11:56 ; Admin Dose 20 MG; Start 08/08/16 at 21:00; Status Future Hold Warfarin Sodium (Coumadin) 2.5 mg DAILY@17 GTB Last administered on 08/15/16at 17:14; Admin Dose 2.5 MG; Start 08/08/16 at 17:00 Lorazepam (Ativan) 0.5 mg Q4 PRN IV ANXIETY Last administered on 08/09/16at 10: 51; Admin Dose 0.5 MG; Start 08/09/16 at 00:00 Methylprednisolone Sodium Succinate (Solu-Medrol) 20 mg DAILY IV Last administered on 08/16/16at 09:31; Admin Dose 20 MG; Start 08/10/16 at 09:00 Insulin Glargine (Lantus) 30 unit QAM SC Last administered on 08/15/16at 09:39 ; Admin Dose 30 UNIT; Start 08/11/16 at 12:00 Miscellaneous Information 1 ea NOTE XX ; Start 08/11/16 at 12:00 Glucose (Glutose) 15 gm Q15M PRN PO DECREASED GLUCOSE; Start 08/11/16 at 12:00 Glucose (Glutose) 22.5 gm Q15M PRN PO DECREASED GLUCOSE; Start 08/11/16 at 12: 00 Dextrose (D50w Syringe) 25 ml Q15M PRN IV DECREASED GLUCOSE Last administered on 08/16/16at 09:32; Admin Dose 25 ML; Start 08/11/16 at 12:00 Dextrose (D50w Syringe) 50 ml Q15M PRN IV DECREASED GLUCOSE; Start 08/11/16 at 12:00 Glucagon (Glucagen) 1 mg Q15M PRN IM DECREASED GLUCOSE; Start 08/11/16 at 12: 00 Glucose 15 gm 15 gm Q15M PRN BUCCAL DECREASED GLUCOSE; Start 08/11/16 at 12:00 Caspofungin/ Sodium Chloride (Cancidas/NS) 250 ml @ 250 mls/hr Q24H IVPB Last administered on 08/15/16at 14:23; Admin Dose 250 MLS/HR; Start 08/12/16 at 14: 00 Insulin Aspart (Novolog Insulin Pen) NOVOLOG *MODERATE* ALGORI... Q4 SC Last administered on 08/15/16at 21:23; Admin Dose 2 UNIT; Start 08/11/16 at 17:00 IV Flush 10 ml 10 ml PRN PRN IV IV PROTOCOL; Start 08/13/16 at 18:00 Cefazolin Sodium (Ancef 1 Gm/50 ml (Pmx)) 50 ml @ 100 mls/hr Q24H IVPB Last administered on 08/15/16at 17:08; Admin Dose 100 MLS/HR; Start 08/14/16 at 17: 00 Collagenase 1 applic 1 applic DAILY@22 TOP Last administered on 08/15/16at 21: 20; Admin Dose 1 APPLIC; Start 08/15/16 at 22:00 Dextrose/Sodium Chloride 1,000 ml @ 20 mls/hr Q24H IV Last administered on at 14:30; Admin Dose 20 MLS/HR; Start 08/15/16 at 14:00 Fentanyl/Dextrose (D5W) 100 ml @ 2.6 mls/hr TITRATE IV ; Start 08/15/16 at 19: 30 Procedures Procedures CXR 08/15/16: 1. Endotracheal tube in place, 2.8 cm from the sofie. Nasogastric tube and right PICC line in place. 2. Prominence of interstitial markings likely reflecting chronic change. CXR 08/14/16: 1. Mild pulmonary vascular congestion, increased from prior x-ray. 2. Lines and tubes remain in place. 3. No evidence of focal acute infiltrate. CT Brain 07/30/16: Examination is degraded due to patient motion artifact. No evidence of focal hematoma, mass effect, or definite acute ischemic changes. Moderate chronic-appearing microvascular ischemic changes of the supratentorial white matter. Venous study 07/26/16: Old partial DVT of the right internal jugular vein. BLE venous study 07/26/16: No evidence of deep vein thrombosis involving either lower extremity. VQ scan 07/26/16: 1. No evidence of deep vein thrombosis involving either lower extremity. JERICHO CRABTREE NP Aug 16, 2016 10:11
--- NOTE | 2016-08-16 10:43 | CONS ---
DATE OF ADMISSION: 07/26/2016 DATE OF CONSULTATION: TYPE OF CONSULTATION: Nephrology. The patient was able to be extubated yesterday, but only lasted several hours. He became more gulshan rgic, ABG noted respiratory acidemic and CO2 retention, and therefore approximately 10:30 last eveni ng he was reintubated. PHYSICAL EXAMINATION GENERAL: He remains on the vent this morning, lethargic but awake. Hemodynamically, he is stable on minimal dose norepinephrine. He is in sinus tachycardia. CURRENT VITAL SIGNS: He is afebrile. Blood pressure is 120/69, heart rate is 107 in a sinus tach, respirations are 12 and controlled on the vent. O2 saturation is 100% on 80% FIO2. SKIN: No new lesions. HEAD: Normocephalic. LUNGS: Clear anteriorly. HEART: S1, S2, tachycardic but regular. ABDOMEN: Soft. EXTREMITIES: A well-functioning left upper extremity AV fistula unchanged. He is status post left BKA, unchanged. LABORATORY DATA: Sodium 140, potassium 3.6, chloride 99, bicarbonate 23, BUN 84, creatinine 3.83, c alcium 7.7, phosphorus is 4.5, glucose is 85. White count 24.9, hemoglobin 10.6, hematocrit 32.3, p latelet count 200,000. INR is 1.73. Most recent chest x-ray last evening showed normal size heart. No pulmonary vascular congestion. E T tube in place. PROBLEM LIST: 1. Respiratory failure, status post extubation and reintubation. 2. Marked leukocytosis this morning, rule out possible aspiration last evening. 3. End-stage renal disease for planned hemodialysis today. Sinus tachycardia on low dose norepinep hrine, the latter to be weaned off. 4. Diabetes mellitus, currently controlled. RECOMMENDATIONS: 1. Hemodialysis today. 2. Apparently plans to be made for trach and PEG. 3. Infectious disease to readdress the marked leukocytosis and possibly alter antibiotics to cover possible aspiration. 4. Followup labs. Dictated By: MOSES GUAJARDO MD, MM/OLESYA Conf#: [id number] DID#: [id number]
--- NOTE | 2016-08-16 11:17 | RADRPT ---
PROCEDURE: CHEST 1VW CLINICAL INDICATION: Shortness of breath TECHNIQUE: Single frontal view of the chest was obtained COMPARISON: 08/15/2016 FINDINGS: Stable endotracheal tube, nasogastric tube, and right PICC. The cardiac size is normal. Aortic vascular calcifications are demonstrated. There is stable mild pulmonary vascular congestion. The lungs are otherwise clear. No consolidation, effusion, or pneumothorax. Mild degenerative changes of the visualized osseous structures are visualized. IMPRESSION: 1. Stable mild pulmonary vascular congestion. 2. Atherosclerosis. 3. Stable lines and tubes. RPTAT:PP .Tal Holloway MD, Date Time Electronically viewed and signed by .Tal Holloway MD, on 08/16/2016 11:16 .V/
[2016-08-16] MEDS: INSULIN GLARGINE [LANtus] 3 ML PEN SC SCH (11:28)
--- NOTE | 2016-08-16 11:35 | CONS ---
Date/Time of Note Date/Time of Note DATE: 08/16/16 TIME: 11:33 Consult Date/Type/Reason Admit Date/Time Jul 26, 2016 at 01:55 Initial Consult Date 07/29/16 Type of Consultation: pulmonary Ordering Provider: GRACIE KATHLEEN Subjective Patient was extubated yesterday morning Developed respiratory distress overnight requiring reintubation Now stable on mechanical ventilation Objective Vital Signs Date Time Temp Pulse Resp B/P Pulse Ox O2 Delivery O2 Flow Rate FiO2 08/16/16 11:15 105 18 111/60 100 08/16/16 11:00 Mechanical Ventilator 08/16/16 08:00 97.7 08/16/16 08:00 70 08/15/16 22:00 6.0 Intake and Output 08/15/16 08/15/16 08/16/16 15:00 23:00 07:00 Intake Total 299 ml 494 ml 239.62 ml Output Total 10 ml 40 ml Balance 299 ml 484 ml 199.62 ml PHYSICAL EXAMINATION GENERAL: Elderly gentleman, intubated on mechanical ventilation, opens eyes and appears somewhat agitated. Orally intubated. VITAL SIGNS: see below. HEENT: Pupils equal, round, and reactive to light. CARDIAC: S1, S2, tachycardia. CHEST: Diminished air entry bilaterally. ABDOMEN: Mildly distended. bowel sounds present no guarding or rebound sounds. EXTREMITIES: No cyanosis, clubbing edema +1 NEUROLOGIC: Generalized weakness Results/Medications Result Diagram: 08/16/16 0540 08/16/16 0540 Results 24 hrs Laboratory Tests Test 08/15/16 12:18 08/15/16 13:21 08/15/16 17:02 08/15/16 21:18 Arterial Blood HCO3 25.7 Arterial Blood Base Excess 1.8 Arterial Blood Oxygen Saturation 90.8 L Jerod Test N/A Arterial Blood Gas Puncture Site Right Brachial Arterial Blood Carboxyhemoglobin 0.1 Arterial Blood Date Drawn 08/15/2016 12:50:09 PM Arterial Blood Methemoglobin 0.2 Arterial Blood pCO2 (Temp correct) 37.6 Arterial Blood pH (Temp corrected) 7.452 H Arterial Blood pO2 (Temp corrected) 61.9 L Blood Gas A-a O2 Differential 107.8 H Blood Gas Actual Respiration Rate 29 Blood Gas Low PEEP Setting 5.0 Blood Gas Modality VENT - CPAP Blood Gas Notified Time 08/15/2016 1:14:54 PM Blood Gas Notified Whom LAURA Blood Gas Pressure Support 10 Blood Gas Specimen Source Blood arterial Blood Gas Temperature 37.0 FiO2 30.0 Oxyhemoglobin Percent 90.5 L Total Hemoglobin 11.5 L Bedside Glucose 101 143 187 Test 08/15/16 21:30 08/15/16 23:30 08/16/16 02:20 08/16/16 05:40 Arterial Blood HCO3 27.4 H 23.7 Arterial Blood Base Excess -2.9 -1.8 Arterial Blood Oxygen Saturation 76.6 L 99.1 H Jerod Test N/A ACCEPTAB Arterial Blood Gas Puncture Site Right Brachial Right Radial Arterial Blood Carboxyhemoglobin 0.4 0.1 Arterial Blood Date Drawn 08/15/2016 9:35:58 PM 08/15/2016 11:30:27 PM Arterial Blood Methemoglobin 0.3 0.2 Arterial Blood pCO2 (Temp correct) 79.3 H 43.4 Arterial Blood pH (Temp corrected) 7.157 *L 7.355 Arterial Blood pO2 (Temp corrected) 55.1 L 232.8 H Blood Gas A-a O2 Differential 131.6 H 436.8 H Blood Gas Critical Value Read Back AFEARON RN Blood Gas Modality NASAL CANNULA VENT - AC Blood Gas Notified Time 08/15/2016 9:44:47 PM 08/15/2016 11:39:08 PM Blood Gas Notified Whom YONY BHAKTA Blood Gas Specimen Source Blood arterial Blood arterial Blood Gas Temperature 37.0 37.0 FiO2 39.0 100.0 Oxyhemoglobin Percent 76.1 L 98.8 Total Hemoglobin 12.5 11.7 L Blood Gas Actual Respiration Rate 20 Blood Gas Low PEEP Setting 5.0 Blood Gas Respiration Rate 20.0 Blood Gas Tidal Volume 550.0 Bedside Glucose 103 Anion Gap 22 H Basophils # 0.1 Basophils % 0.5 Blood Morphology Comment Blood Urea Nitrogen 84 H Calcium Level 7.7 L Carbon Dioxide Level 23 Chloride Level 99 Creatinine 3.83 H Eosinophils # 0.0 Eosinophils % 0.0 Glucose Level 73 Hematocrit 32.3 L Hemoglobin 10.6 L INR International Normalized Ratio 1.73 Lymphocytes # 1.1 Lymphocytes % 4.4 L Mean Corpuscular Hemoglobin 31.9 Mean Corpuscular Hemoglobin Concent 33.0 Mean Corpuscular Volume 96.7 Mean Platelet Volume 7.4 Monocytes # 0.7 Monocytes % 2.9 Neutrophils # 22.9 H Neutrophils % 92.2 H Nucleated Red Blood Cells # 0.0 Nucleated Red Blood Cells % 0.0 Phosphorus Level 4.5 Platelet Count 200 # Potassium Level 3.6 Prothrombin Time 20.4 H Prothrombin Time Ratio 1.6 Red Blood Count 3.34 L Red Cell Distribution Width 14.7 H Sodium Level 140 White Blood Count 24.9 #H Test 08/16/16 05:46 08/16/16 07:00 08/16/16 09:28 08/16/16 09:49 Bedside Glucose 85 65 L 107 Arterial Blood HCO3 22.0 Arterial Blood Base Excess -1.1 Arterial Blood Oxygen Saturation 97.8 Jerod Test ACCEPTAB Arterial Blood Gas Puncture Site Right Radial Arterial Blood Carboxyhemoglobin 0.2 Arterial Blood Date Drawn 08/16/2016 7:30:50 AM Arterial Blood Methemoglobin 0.2 Arterial Blood pCO2 (Temp correct) 31.1 L Arterial Blood pH (Temp corrected) 7.467 H Arterial Blood pO2 (Temp corrected) 110.2 H Blood Gas A-a O2 Differential 427.6 H Blood Gas Actual Respiration Rate 21 Blood Gas Low PEEP Setting 5.0 Blood Gas Modality VENT - AC Blood Gas Notified Time 08/16/2016 8:24:35 AM Blood Gas Notified Whom JLD Blood Gas Respiration Rate 20.0 Blood Gas Specimen Source Blood arterial Blood Gas Temperature 37.0 Blood Gas Tidal Volume 550.0 FiO2 80.0 Oxyhemoglobin Percent 97.4 Total Hemoglobin 10.9 L Test 08/16/16 10:01 Bedside Glucose 102 Medications Current Medications Fluticasone Propionate (Flonase 0.05% Nasal) 1 spray BID NASAL Last administered on 08/16/16at 09:31; Admin Dose 1 SPRAY; Start 07/26/16 at 10:00 Epoetin [place] (Epogen (Esrd)) 10,000 units MoWeFr@17 SC Last administered on at 17:13; Admin Dose 10,000 UNITS; Start 07/27/16 at 17:00; Status Future hold Hydralazine HCl 10 mg 10 mg Q6H PRN IV ELEVATED BLOOD PRESSURE Last administered on 08/15/16at 15:37; Admin Dose 10 MG; Start 07/29/16 at 13:00 Midazolam HCl/ Dextrose (Versed/D5W) 50 ml @ 1 mls/hr TITRATE IV Last administered on 08/15/16 23:00; Admin Dose 5 MLS/HR; Start 08/01/16 at 23:00 Acetaminophen (Tylenol Tab) 650 mg Q6H PRN GTB PAIN1-3/FEVER ABOVE 100 Last administered on 08/12/16 06:07; Admin Dose 650 MG; Start 08/02/16 at 15:00 Atorvastatin Calcium (Lipitor) 40 mg HS GTB Last administered on 08/14/16 21: 04; Admin Dose 40 MG; Start 08/02/16 at 21:00 Carvedilol (Coreg) 6.25 mg BID GTB ; Start 08/02/16 at 09:00; Status Future Hold Duloxetine HCl (Cymbalta) 90 mg DAILY GTB Last administered on 08/16/16 09:31 ; Admin Dose 90 MG; Start 08/02/16 at 09:00 Guaifenesin (Robitussin Liquid Cup) 100 mg Q4 PRN GTB COUGH; Start 08/02/16 at 09:00 Acetaminophen/ Hydrocodone Bitart ([place] (5/325)) 1 tab Q4 PRN GTB WSOB Last administered on 08/08/16 09:01; Admin Dose 1 TAB; Start 08/02/16 at 09:00 Lactobacillus Acidoph/Bulgaricus (Floranex) 1 tab DAILY GTB Last administered on 08/16/16 09:30; Admin Dose 1 TAB; Start 08/02/16 at 09:00 Lorazepam (Ativan) 1 mg Q6H PRN GTB ANXIETY Last administered on 08/08/16 21: 02; Admin Dose 1 MG; Start 08/02/16 at 09:00 Multivit/Ca Carb/ B Cmplx/FA/Prenat (Cheryl-Darcie) 1 tab DAILY GTB Last administered on 08/16/16 09:30; Admin Dose 1 TAB; Start 08/02/16 at 09:00 Aspirin (Aspirin) 81 mg DAILY GTB Last administered on 08/16/16 09:30; Admin Dose 81 MG; Start 08/02/16 at 09:00 Lansoprazole 30 mg 30 mg DAILY@06 GTB Last administered on 08/16/16 05:48; Admin Dose 30 MG; Start 08/02/16 at 10:00 Phenylephrine HCl 80 mg/Dextrose 250 ml @ 18.75 mls/ hr TITRATE IV ; Start at 12:30 Norepinephrine/ Dextrose (Levophed/D5W) 500 ml @ 1.87 mls/hr TITRATE IV Last administered on 08/16/16at 01:50; Admin Dose 3.75 MLS/HR; Start 08/05/16 at 12: 00 Vancomycin HCl (Vancomycin Oral Syringe) 125 mg Q6 NGT Last administered on at 11:31; Admin Dose 125 MG; Start 08/06/16 at 18:00 Sildenafil Citrate (Revatio) 20 mg BID PO Last administered on 08/11/16at 11:56 ; Admin Dose 20 MG; Start 08/08/16 at 21:00; Status Future Hold Warfarin Sodium (Coumadin) 2.5 mg DAILY@17 GTB Last administered on 08/15/16at 17:14; Admin Dose 2.5 MG; Start 08/08/16 at 17:00 Lorazepam (Ativan) 0.5 mg Q4 PRN IV ANXIETY Last administered on 08/09/16at 10: 51; Admin Dose 0.5 MG; Start 08/09/16 at 00:00 Methylprednisolone Sodium Succinate (Solu-Medrol) 20 mg DAILY IV Last administered on 08/16/16at 09:31; Admin Dose 20 MG; Start 08/10/16 at 09:00 Insulin Glargine (Lantus) 30 unit QAM SC Last administered on 08/16/16at 11:28 ; Admin Dose 30 UNIT; Start 08/11/16 at 12:00 Miscellaneous Information 1 ea NOTE XX ; Start 08/11/16 at 12:00 Glucose (Glutose) 15 gm Q15M PRN PO DECREASED GLUCOSE; Start 08/11/16 at 12:00 Glucose (Glutose) 22.5 gm Q15M PRN PO DECREASED GLUCOSE; Start 08/11/16 at 12: 00 Dextrose (D50w Syringe) 25 ml Q15M PRN IV DECREASED GLUCOSE Last administered on 08/16/16at 09:32; Admin Dose 25 ML; Start 08/11/16 at 12:00 Dextrose (D50w Syringe) 50 ml Q15M PRN IV DECREASED GLUCOSE; Start 08/11/16 at 12:00 Glucagon (Glucagen) 1 mg Q15M PRN IM DECREASED GLUCOSE; Start 08/11/16 at 12: 00 Glucose 15 gm 15 gm Q15M PRN BUCCAL DECREASED GLUCOSE; Start 08/11/16 at 12:00 Caspofungin/ Sodium Chloride (Cancidas/NS) 250 ml @ 250 mls/hr Q24H IVPB Last administered on 08/15/16at 14:23; Admin Dose 250 MLS/HR; Start 08/12/16 at 14: 00 Insulin Aspart (Novolog Insulin Pen) NOVOLOG *MODERATE* ALGORI... Q4 SC Last administered on 08/15/16at 21:23; Admin Dose 2 UNIT; Start 08/11/16 at 17:00 IV Flush 10 ml 10 ml PRN PRN IV IV PROTOCOL; Start 08/13/16 at 18:00 Cefazolin Sodium (Ancef 1 Gm/50 ml (Pmx)) 50 ml @ 100 mls/hr Q24H IVPB Last administered on 08/15/16at 17:08; Admin Dose 100 MLS/HR; Start 08/14/16 at 17: 00 Collagenase 1 applic 1 applic DAILY@22 TOP Last administered on 08/15/16at 21: 20; Admin Dose 1 APPLIC; Start 08/15/16 at 22:00 Dextrose/Sodium Chloride 1,000 ml @ 20 mls/hr Q24H IV Last administered on at 14:30; Admin Dose 20 MLS/HR; Start 08/15/16 at 14:00 Fentanyl/Dextrose (D5W) 100 ml @ 2.6 mls/hr TITRATE IV ; Start 08/15/16 at 19: 30 Assessment/Plan Chief Complaint/Hosp Course assessment 1. Hypoxemic resp failure, reintubation now once again on mechanical ventilation 2. Pulm edema, right lower lobe infiltrate, possible aspiration pneumonia. 3. Encephalopathy toxic metabolic 4. Diastolic dysf ? 5. Persistent leukocytosis likely polymicrobial sepsis 6. End-stage renal failure on hemodialysis Plan 1. Continue Vent, will require tracheostomy and G-tube placement 2. Hemodialysis per nephrology 3, Aspiration precautions 4. DVT / GI prophylaxis. 5. Continue broad-spectrum antibiotics pending cultures d/w staff CODE STATUS DNR Proceed tracheostomy and G-tube Problems: VALERIE CAMARENA MD, [facility] Aug 16, 2016 11:34
[2016-08-16] MEDS: FENTAnyl 1,000 MCG in DEXTROSE 5% 80 ML IV SCH (11:36)
--- NOTE | 2016-08-16 12:04 | PN ---
Date/Time of Note Date/Time of Note DATE: 08/16/16 TIME: 12:02 Assessment/Plan VTE Prophylaxis VTE Prophylaxis Intervention: other Lines/Catheters IV Catheter Type (from Nrs): PICC Line Central line still needed: Yes Urinary Cath still in place: No Reason Cath still needed: skin wounds contaminated by urine Assessment/Plan Chief Complaint/Hosp Course 1. Acute respiratory failure - had to be reintubated, probably will need subacute 2. Possible pneumonia- right lower lobe infiltrate- possible aspiration pneumonia per Pulmonary. Sputum grew 08/02 rare jerry albicans - per Dr. Reardon in infectious disease consultation. 3. Early sepsis d/t C diff - recurrent leukocytosis improving and low grade fever resolving. 4. End-stage renal disease hemodialysis dependent. - on HD - per Dr. Bassett in nephrology consultation 5. Diastolic congestive heart failure. Continue to remove fluid was hemodialysis. 6. Partial right internal jugular DVT. Continue Coumadin. Continue daily PT PTT. 7. C diff stool - per ID - on po Vanco - contact isolation 8. RUE cellulitis with axillary/cephalic venous thrombosis - PER id 9. Hyperglycemia- GLYCEMIC Control- stable 10. Toxic metabolic encephalopathy 11. Osteoporosis. 12. Pulmonary hypertension. Continue sildenafil. 13. Coronary artery disease with history of PCI. 14. Depression. Continue Cymbalta 15. History of left hip fracture, treated conservatively. Problems: Subjective 24 Hr Interval Summary Free Text/Dictation Patient developed respiratory distress and had to be reintubated overnight Exam/Review of Systems Vital Signs Vitals Vital Signs Date Time Temp Pulse Resp B/P Pulse Ox O2 Delivery O2 Flow Rate FiO2 08/16/16 11:45 104 20 118/70 100 08/16/16 11:00 Mechanical Ventilator 08/16/16 08:00 97.7 08/16/16 08:00 70 08/15/16 22:00 6.0 Intake and Output 08/15/16 08/15/16 08/16/16 15:00 23:00 07:00 Intake Total 299 ml 494 ml 239.62 ml Output Total 10 ml 40 ml Balance 299 ml 484 ml 199.62 ml Exam Constitutional: well developed Neck: supple Respiratory: diminished breath sounds Cardiovascular: regular rate and rhythm Gastrointestinal: non-tender, soft Results Result Diagram: 08/16/16 0540 08/16/16 0540 Results 24 hrs Laboratory Tests Test 08/15/16 12:18 12/28/16 13:21 08/15/16 17:02 08/15/16 21:18 Arterial Blood HCO3 25.7 Arterial Blood Base Excess 1.8 Arterial Blood Oxygen Saturation 90.8 L Jerod Test N/A Arterial Blood Gas Puncture Site Right Brachial Arterial Blood Carboxyhemoglobin 0.1 Arterial Blood Date Drawn 08/15/2016 12:50:09 PM Arterial Blood Methemoglobin 0.2 Arterial Blood pCO2 (Temp correct) 37.6 Arterial Blood pH (Temp corrected) 7.452 H Arterial Blood pO2 (Temp corrected) 61.9 L Blood Gas A-a O2 Differential 107.8 H Blood Gas Actual Respiration Rate 29 Blood Gas Low PEEP Setting 5.0 Blood Gas Modality VENT - CPAP Blood Gas Notified Time 08/15/2016 1:14:54 PM Blood Gas Notified Whom LAURA Blood Gas Pressure Support 10 Blood Gas Specimen Source Blood arterial Blood Gas Temperature 37.0 FiO2 30.0 Oxyhemoglobin Percent 90.5 L Total Hemoglobin 11.5 L Bedside Glucose 101 143 187 Test 08/15/16 21:30 08/15/16 23:30 08/16/16 02:20 08/16/16 05:40 Arterial Blood HCO3 27.4 H 23.7 Arterial Blood Base Excess -2.9 -1.8 Arterial Blood Oxygen Saturation 76.6 L 99.1 H Jerod Test N/A ACCEPTAB Arterial Blood Gas Puncture Site Right Brachial Right Radial Arterial Blood Carboxyhemoglobin 0.4 0.1 Arterial Blood Date Drawn 08/15/2016 9:35:58 PM 08/15/2016 11:30:27 PM Arterial Blood Methemoglobin 0.3 0.2 Arterial Blood pCO2 (Temp correct) 79.3 H 43.4 Arterial Blood pH (Temp corrected) 7.157 *L 7.355 Arterial Blood pO2 (Temp corrected) 55.1 L 232.8 H Blood Gas A-a O2 Differential 131.6 H 436.8 H Blood Gas Critical Value Read Back AFEARON JUAN MIGUEL Blood Gas Modality NASAL CANNULA VENT - AC Blood Gas Notified Time 08/15/2016 9:44:47 PM 08/15/2016 11:39:08 PM Blood Gas Notified Whom YONY BHAKTA Blood Gas Specimen Source Blood arterial Blood arterial Blood Gas Temperature 37.0 37.0 FiO2 39.0 100.0 Oxyhemoglobin Percent 76.1 L 98.8 Total Hemoglobin 12.5 11.7 L Blood Gas Actual Respiration Rate 20 Blood Gas Low PEEP Setting 5.0 Blood Gas Respiration Rate 20.0 Blood Gas Tidal Volume 550.0 Bedside Glucose 103 Anion Gap 22 H Basophils # 0.1 Basophils % 0.5 Blood Morphology Comment Blood Urea Nitrogen 84 H Calcium Level 7.7 L Carbon Dioxide Level 23 Chloride Level 99 Creatinine 3.83 H Eosinophils # 0.0 Eosinophils % 0.0 Glucose Level 73 Hematocrit 32.3 L Hemoglobin 10.6 L INR International Normalized Ratio 1.73 Lymphocytes # 1.1 Lymphocytes % 4.4 L Mean Corpuscular Hemoglobin 31.9 Mean Corpuscular Hemoglobin Concent 33.0 Mean Corpuscular Volume 96.7 Mean Platelet Volume 7.4 Monocytes # 0.7 Monocytes % 2.9 Neutrophils # 22.9 H Neutrophils % 92.2 H Nucleated Red Blood Cells # 0.0 Nucleated Red Blood Cells % 0.0 Phosphorus Level 4.5 Platelet Count 200 # Potassium Level 3.6 Prothrombin Time 20.4 H Prothrombin Time Ratio 1.6 Red Blood Count 3.34 L Red Cell Distribution Width 14.7 H Sodium Level 140 White Blood Count 24.9 #H Test 08/16/16 05:46 08/16/16 07:00 08/16/16 09:28 08/16/16 09:49 Bedside Glucose 85 65 L 107 Arterial Blood HCO3 22.0 Arterial Blood Base Excess -1.1 Arterial Blood Oxygen Saturation 97.8 Jerod Test ACCEPTAB Arterial Blood Gas Puncture Site Right Radial Arterial Blood Carboxyhemoglobin 0.2 Arterial Blood Date Drawn 08/16/2016 7:30:50 AM Arterial Blood Methemoglobin 0.2 Arterial Blood pCO2 (Temp correct) 31.1 L Arterial Blood pH (Temp corrected) 7.467 H Arterial Blood pO2 (Temp corrected) 110.2 H Blood Gas A-a O2 Differential 427.6 H Blood Gas Actual Respiration Rate 21 Blood Gas Low PEEP Setting 5.0 Blood Gas Modality VENT - AC Blood Gas Notified Time 08/16/2016 8:24:35 AM Blood Gas Notified Whom JLD Blood Gas Respiration Rate 20.0 Blood Gas Specimen Source Blood arterial Blood Gas Temperature 37.0 Blood Gas Tidal Volume 550.0 FiO2 80.0 Oxyhemoglobin Percent 97.4 Total Hemoglobin 10.9 L Test 08/16/16 10:01 08/16/16 11:26 Bedside Glucose 102 94 Medications Medications Current Medications Fluticasone Propionate (Flonase 0.05% Nasal) 1 spray BID NASAL Last administered on 08/16/16 09:31; Admin Dose 1 SPRAY; Start 07/26/16 at 10:00 Epoetin [place] (Epogen (Esrd)) 10,000 units MoWeFr@17 SC Last administered on 17:13; Admin Dose 10,000 UNITS; Start 07/27/16 at 17:00; Status Future hold Hydralazine HCl 10 mg 10 mg Q6H PRN IV ELEVATED BLOOD PRESSURE Last administered on 08/15/16 15:37; Admin Dose 10 MG; Start 07/29/16 at 13:00 Midazolam HCl/ Dextrose (Versed/D5W) 50 ml @ 1 mls/hr TITRATE IV Last administered on 08/15/16 23:00; Admin Dose 5 MLS/HR; Start 08/01/16 at 23:00 Acetaminophen (Tylenol Tab) 650 mg Q6H PRN GTB PAIN1-3/FEVER ABOVE 100 Last administered on 08/12/16at 06:07; Admin Dose 650 MG; Start 08/02/16 at 15:00 Atorvastatin Calcium (Lipitor) 40 mg HS GTB Last administered on 08/14/16at 21: 04; Admin Dose 40 MG; Start 08/02/16 at 21:00 Carvedilol (Coreg) 6.25 mg BID GTB ; Start 08/02/16 at 09:00; Status Future Hold Duloxetine HCl (Cymbalta) 90 mg DAILY GTB Last administered on 08/16/16 09:31 ; Admin Dose 90 MG; Start 08/02/16 at 09:00 Guaifenesin (Robitussin Liquid Cup) 100 mg Q4 PRN GTB COUGH; Start 08/02/16 at 09:00 Acetaminophen/ Hydrocodone Bitart ([place] (5/325)) 1 tab Q4 PRN GTB WSOB Last administered on 08/08/16 09:01; Admin Dose 1 TAB; Start 08/02/16 at 09:00 Lactobacillus Acidoph/Bulgaricus (Floranex) 1 tab DAILY GTB Last administered on 08/16/16 09:30; Admin Dose 1 TAB; Start 08/02/16 at 09:00 Lorazepam (Ativan) 1 mg Q6H PRN GTB ANXIETY Last administered on 08/08/16 21: 02; Admin Dose 1 MG; Start 08/02/16 at 09:00 Multivit/Ca Carb/ B Cmplx/FA/Prenat (Cheryl-Darcie) 1 tab DAILY GTB Last administered on 08/16/16 09:30; Admin Dose 1 TAB; Start 08/02/16 at 09:00 Aspirin (Aspirin) 81 mg DAILY GTB Last administered on 08/16/16 09:30; Admin Dose 81 MG; Start 08/02/16 at 09:00 Lansoprazole 30 mg 30 mg DAILY@06 GTB Last administered on 08/16/16 05:48; Admin Dose 30 MG; Start 08/02/16 at 10:00 Phenylephrine HCl 80 mg/Dextrose 250 ml @ 18.75 mls/ hr TITRATE IV ; Start at 12:30 Norepinephrine/ Dextrose (Levophed/D5W) 500 ml @ 1.87 mls/hr TITRATE IV Last administered on 08/16/16 01:50; Admin Dose 3.75 MLS/HR; Start 08/05/16 at 12: 00 Vancomycin HCl (Vancomycin Oral Syringe) 125 mg Q6 NGT Last administered on 11:31; Admin Dose 125 MG; Start 08/06/16 at 18:00 Sildenafil Citrate (Revatio) 20 mg BID PO Last administered on 08/11/16 11:56 ; Admin Dose 20 MG; Start 08/08/16 at 21:00; Status Future Hold Warfarin Sodium (Coumadin) 2.5 mg DAILY@17 GTB Last administered on 08/15/16 17:14; Admin Dose 2.5 MG; Start 08/08/16 at 17:00 Lorazepam (Ativan) 0.5 mg Q4 PRN IV ANXIETY Last administered on 08/09/16 10: 51; Admin Dose 0.5 MG; Start 08/09/16 at 00:00 Methylprednisolone Sodium Succinate (Solu-Medrol) 20 mg DAILY IV Last administered on 08/16/16 09:31; Admin Dose 20 MG; Start 08/10/16 at 09:00 Insulin Glargine (Lantus) 30 unit QAM SC Last administered on 12/29/16at 11:28 ; Admin Dose 30 UNIT; Start 08/11/16 at 12:00 Miscellaneous Information 1 ea NOTE XX ; Start 08/11/16 at 12:00 Glucose (Glutose) 15 gm Q15M PRN PO DECREASED GLUCOSE; Start 08/11/16 at 12:00 Glucose (Glutose) 22.5 gm Q15M PRN PO DECREASED GLUCOSE; Start 08/11/16 at 12: 00 Dextrose (D50w Syringe) 25 ml Q15M PRN IV DECREASED GLUCOSE Last administered on 08/16/16at 09:32; Admin Dose 25 ML; Start 08/11/16 at 12:00 Dextrose (D50w Syringe) 50 ml Q15M PRN IV DECREASED GLUCOSE; Start 08/11/16 at 12:00 Glucagon (Glucagen) 1 mg Q15M PRN IM DECREASED GLUCOSE; Start 08/11/16 at 12: 00 Glucose 15 gm 15 gm Q15M PRN BUCCAL DECREASED GLUCOSE; Start 08/11/16 at 12:00 Caspofungin/ Sodium Chloride (Cancidas/NS) 250 ml @ 250 mls/hr Q24H IVPB Last administered on 08/15/16at 14:23; Admin Dose 250 MLS/HR; Start 08/12/16 at 14: 00 Insulin Aspart (Novolog Insulin Pen) NOVOLOG *MODERATE* ALGORI... Q4 SC Last administered on 08/15/16at 21:23; Admin Dose 2 UNIT; Start 08/11/16 at 17:00 IV Flush 10 ml 10 ml PRN PRN IV IV PROTOCOL; Start 08/13/16 at 18:00 Cefazolin Sodium (Ancef 1 Gm/50 ml (Pmx)) 50 ml @ 100 mls/hr Q24H IVPB Last administered on 08/15/16at 17:08; Admin Dose 100 MLS/HR; Start 08/14/16 at 17: 00 Collagenase 1 applic 1 applic DAILY@22 TOP Last administered on 08/15/16at 21: 20; Admin Dose 1 APPLIC; Start 08/15/16 at 22:00 Dextrose/Sodium Chloride 1,000 ml @ 20 mls/hr Q24H IV Last administered on at 14:30; Admin Dose 20 MLS/HR; Start 08/15/16 at 14:00 Fentanyl/Dextrose (D5W) 100 ml @ 2.6 mls/hr TITRATE IV Last administered on at 11:36; Admin Dose 2.6 MLS/HR; Start 08/15/16 at 19:30 LESLIE PEDROZA Aug 16, 2016 12:04
[2016-08-16] MEDS: ALBUMIN HUMAN 25% 100 ML IV PRN (14:42)
[2016-08-16] MEDS: CASPOFUNGIN 35 MG in SOD CHLORIDE 0.9% 250 ML IVPB SCH (17:25)
[2016-08-16] MEDS: WARFARIN 2.5 MG TAB GTB SCH (17:28)
[2016-08-16] MEDS: DEXTROSE 5%-0.45% NACL 1,000 ML IV SCH (17:37)
[2016-08-16] MEDS: CEFAZOLIN 1 GM/50 ML (PMX) 50 ML IVPB SCH (18:34)
[2016-08-16] MEDS: COLLAGENASE 30 GM TUBE TOP SCH (20:00)
[2016-08-16] MEDS: ATORVASTATIN 40 MG TAB GTB SCH (20:00)
--- NOTE | 2016-08-16 22:32 | CONS ---
Date/Time of Note Date/Time of Note DATE: 08/16/16 TIME: 12:29 Assessment/Plan Assessment/Plan Additional Assessment/Plan Respiratory failure status post intubation Sepsis Minimally elevated troponin Partial right internal jugular DVT Diastolic congestive heart failure End-stage renal disease on hemodialysis CAD with history of PCI Diabetes Peripheral arterial disease with history of amputation Pulmonary hypertension -pt re-intubated last night. Back on IV pressor now during HD. If pt for trach and peg, would hold coumadin. Consultation Date/Type/Reason Admit Date/Time Jul 26, 2016 at 01:55 Type of Consultation: cv Referring Provider: GRACIE KATHLEEN 24 HR Interval Summary Free Text/Dictation pt extubated yesterday and then re-intubated last night Exam/Review of Systems Vital Signs Vitals Vital Signs Date Time Temp Pulse Resp B/P Pulse Ox O2 Delivery O2 Flow Rate FiO2 08/16/16 20:00 100 08/16/16 20:00 70 08/16/16 19:30 98.0 20 117/83 98 08/16/16 19:00 Mechanical Ventilator 08/15/16 22:00 6.0 Intake and Output 08/15/16 08/15/16 08/16/16 15:00 23:00 07:00 Intake Total 299 ml 494 ml 239.62 ml Output Total 10 ml 40 ml Balance 299 ml 484 ml 199.62 ml Exam sedated and intubated Head: normocephalic ENMT: intubated Respiratory: other (course bs, no wheeze) Cardiovascular: other (s1s2), regular rate and rhythm Gastrointestinal: bowel sounds, non-tender, soft Extremities: edema Results Result Diagram: 08/16/16 0540 08/16/16 0540 Results 24 hrs Laboratory Tests Test 08/15/16 23:30 08/16/16 02:20 08/16/16 05:40 08/16/16 05:46 Arterial Blood HCO3 23.7 Arterial Blood Base Excess -1.8 Arterial Blood Oxygen Saturation 99.1 H Jerod Test ACCEPTAB Arterial Blood Gas Puncture Site Right Radial Arterial Blood Carboxyhemoglobin 0.1 Arterial Blood Date Drawn 08/15/2016 11:30:27 PM Arterial Blood Methemoglobin 0.2 Arterial Blood pCO2 (Temp correct) 43.4 Arterial Blood pH (Temp corrected) 7.355 Arterial Blood pO2 (Temp corrected) 232.8 H Blood Gas A-a O2 Differential 436.8 H Blood Gas Actual Respiration Rate 20 Blood Gas Low PEEP Setting 5.0 Blood Gas Modality VENT - AC Blood Gas Notified Time 08/15/2016 11:39:08 PM Blood Gas Notified Whom MA Blood Gas Respiration Rate 20.0 Blood Gas Specimen Source Blood arterial Blood Gas Temperature 37.0 Blood Gas Tidal Volume 550.0 FiO2 100.0 Oxyhemoglobin Percent 98.8 Total Hemoglobin 11.7 L Bedside Glucose 103 85 Anion Gap 22 H Basophils # 0.1 Basophils % 0.5 Blood Morphology Comment Blood Urea Nitrogen 84 H Calcium Level 7.7 L Carbon Dioxide Level 23 Chloride Level 99 Creatinine 3.83 H Eosinophils # 0.0 Eosinophils % 0.0 Glucose Level 73 Hematocrit 32.3 L Hemoglobin 10.6 L INR International Normalized Ratio 1.73 Lymphocytes # 1.1 Lymphocytes % 4.4 L Mean Corpuscular Hemoglobin 31.9 Mean Corpuscular Hemoglobin Concent 33.0 Mean Corpuscular Volume 96.7 Mean Platelet Volume 7.4 Monocytes # 0.7 Monocytes % 2.9 Neutrophils # 22.9 H Neutrophils % 92.2 H Nucleated Red Blood Cells # 0.0 Nucleated Red Blood Cells % 0.0 Phosphorus Level 4.5 Platelet Count 200 # Potassium Level 3.6 Prothrombin Time 20.4 H Prothrombin Time Ratio 1.6 Red Blood Count 3.34 L Red Cell Distribution Width 14.7 H Sodium Level 140 White Blood Count 24.9 #H Test 08/16/16 07:00 08/16/16 09:28 08/16/16 09:49 08/16/16 10:01 Arterial Blood HCO3 22.0 Arterial Blood Base Excess -1.1 Arterial Blood Oxygen Saturation 97.8 Jerod Test ACCEPTAB Arterial Blood Gas Puncture Site Right Radial Arterial Blood Carboxyhemoglobin 0.2 Arterial Blood Date Drawn 08/16/2016 7:30:50 AM Arterial Blood Methemoglobin 0.2 Arterial Blood pCO2 (Temp correct) 31.1 L Arterial Blood pH (Temp corrected) 7.467 H Arterial Blood pO2 (Temp corrected) 110.2 H Blood Gas A-a O2 Differential 427.6 H Blood Gas Actual Respiration Rate 21 Blood Gas Low PEEP Setting 5.0 Blood Gas Modality VENT - AC Blood Gas Notified Time 08/16/2016 8:24:35 AM Blood Gas Notified Whom JLD Blood Gas Respiration Rate 20.0 Blood Gas Specimen Source Blood arterial Blood Gas Temperature 37.0 Blood Gas Tidal Volume 550.0 FiO2 80.0 Oxyhemoglobin Percent 97.4 Total Hemoglobin 10.9 L Bedside Glucose 65 L 107 102 Test 08/16/16 11:26 08/16/16 12:50 08/16/16 19:58 Bedside Glucose 94 99 107 Medications Medications Current Medications Fluticasone Propionate (Flonase 0.05% Nasal) 1 spray BID NASAL Last administered on 08/16/16 19:59; Admin Dose 1 SPRAY; Start 07/26/16 at 10:00 Epoetin [place] (Epogen (Esrd)) 10,000 units MoWeFr@17 SC Last administered on 17:13; Admin Dose 10,000 UNITS; Start 07/27/16 at 17:00; Status Future hold Hydralazine HCl 10 mg 10 mg Q6H PRN IV ELEVATED BLOOD PRESSURE Last administered on 08/15/16at 15:37; Admin Dose 10 MG; Start 07/29/16 at 13:00 Midazolam HCl/ Dextrose (Versed/D5W) 50 ml @ 1 mls/hr TITRATE IV Last administered on 08/16/16 20:00; Admin Dose 5 MLS/HR; Start 08/01/16 at 23:00 Acetaminophen (Tylenol Tab) 650 mg Q6H PRN GTB PAIN1-3/FEVER ABOVE 100 Last administered on 08/12/16 06:07; Admin Dose 650 MG; Start 08/02/16 at 15:00 Atorvastatin Calcium (Lipitor) 40 mg HS GTB Last administered on 08/16/16 20: 00; Admin Dose 40 MG; Start 08/02/16 at 21:00 Carvedilol (Coreg) 6.25 mg BID GTB ; Start 08/02/16 at 09:00; Status Future Hold Duloxetine HCl (Cymbalta) 90 mg DAILY GTB Last administered on 08/16/16 09:31 ; Admin Dose 90 MG; Start 08/02/16 at 09:00 Guaifenesin (Robitussin Liquid Cup) 100 mg Q4 PRN GTB COUGH; Start 08/02/16 at 09:00 Acetaminophen/ Hydrocodone Bitart ([place] (5/325)) 1 tab Q4 PRN GTB WSOB Last administered on 08/08/16 09:01; Admin Dose 1 TAB; Start 08/02/16 at 09:00 Lactobacillus Acidoph/Bulgaricus (Floranex) 1 tab DAILY GTB Last administered on 08/16/16 09:30; Admin Dose 1 TAB; Start 08/02/16 at 09:00 Lorazepam (Ativan) 1 mg Q6H PRN GTB ANXIETY Last administered on 08/08/16 21: 02; Admin Dose 1 MG; Start 08/02/16 at 09:00 Multivit/Ca Carb/ B Cmplx/FA/Prenat (Cheryl-Darcie) 1 tab DAILY GTB Last administered on 08/16/16 09:30; Admin Dose 1 TAB; Start 08/02/16 at 09:00 Aspirin (Aspirin) 81 mg DAILY GTB Last administered on 08/16/16 09:30; Admin Dose 81 MG; Start 08/02/16 at 09:00 Lansoprazole 30 mg 30 mg DAILY@06 GTB Last administered on 08/16/16 05:48; Admin Dose 30 MG; Start 08/02/16 at 10:00 Phenylephrine HCl 80 mg/Dextrose 250 ml @ 18.75 mls/ hr TITRATE IV ; Start at 12:30 Norepinephrine/ Dextrose (Levophed/D5W) 500 ml @ 1.87 mls/hr TITRATE IV Last administered on 08/16/16 01:50; Admin Dose 3.75 MLS/HR; Start 08/05/16 at 12: 00 Vancomycin HCl (Vancomycin Oral Syringe) 125 mg Q6 NGT Last administered on 17:28; Admin Dose 125 MG; Start 08/06/16 at 18:00 Sildenafil Citrate (Revatio) 20 mg BID PO Last administered on 08/11/16 11:56 ; Admin Dose 20 MG; Start 08/08/16 at 21:00; Status Future Hold Warfarin Sodium (Coumadin) 2.5 mg DAILY@17 GTB Last administered on 08/16/16 17:28; Admin Dose 2.5 MG; Start 08/08/16 at 17:00 Lorazepam (Ativan) 0.5 mg Q4 PRN IV ANXIETY Last administered on 08/09/16 10: 51; Admin Dose 0.5 MG; Start 08/09/16 at 00:00 Methylprednisolone Sodium Succinate (Solu-Medrol) 20 mg DAILY IV Last administered on 08/16/16at 09:31; Admin Dose 20 MG; Start 08/10/16 at 09:00 Insulin Glargine (Lantus) 30 unit QAM SC Last administered on 08/16/16at 11:28 ; Admin Dose 30 UNIT; Start 08/11/16 at 12:00 Miscellaneous Information 1 ea NOTE XX ; Start 08/11/16 at 12:00 Glucose (Glutose) 15 gm Q15M PRN PO DECREASED GLUCOSE; Start 08/11/16 at 12:00 Glucose (Glutose) 22.5 gm Q15M PRN PO DECREASED GLUCOSE; Start 08/11/16 at 12: 00 Dextrose (D50w Syringe) 25 ml Q15M PRN IV DECREASED GLUCOSE Last administered on 08/16/16at 09:32; Admin Dose 25 ML; Start 08/11/16 at 12:00 Dextrose (D50w Syringe) 50 ml Q15M PRN IV DECREASED GLUCOSE; Start 08/11/16 at 12:00 Glucagon (Glucagen) 1 mg Q15M PRN IM DECREASED GLUCOSE; Start 08/11/16 at 12: 00 Glucose 15 gm 15 gm Q15M PRN BUCCAL DECREASED GLUCOSE; Start 08/11/16 at 12:00 Caspofungin/ Sodium Chloride (Cancidas/NS) 250 ml @ 250 mls/hr Q24H IVPB Last administered on 08/16/16at 17:25; Admin Dose 250 MLS/HR; Start 08/12/16 at 14: 00 Insulin Aspart (Novolog Insulin Pen) NOVOLOG *MODERATE* ALGORI... Q4 SC Last administered on 08/16/16at 17:33; Admin Dose 2 UNIT; Start 08/11/16 at 17:00 IV Flush 10 ml 10 ml PRN PRN IV IV PROTOCOL; Start 08/13/16 at 18:00 Cefazolin Sodium (Ancef 1 Gm/50 ml (Pmx)) 50 ml @ 100 mls/hr Q24H IVPB Last administered on 08/16/16at 18:34; Admin Dose 100 MLS/HR; Start 08/14/16 at 17: 00 Collagenase 1 applic 1 applic DAILY@22 TOP Last administered on 08/16/16at 20: 00; Admin Dose 1 APPLIC; Start 08/15/16 at 22:00 Fentanyl/Dextrose (D5W) 100 ml @ 2.6 mls/hr TITRATE IV Last administered on at 11:36; Admin Dose 2.6 MLS/HR; Start 08/15/16 at 19:30 Solo Leon DO Aug 16, 2016 22:32
[2016-08-17] VITALS (64 sets, daily range): BP systolic 101–153; BP diastolic 39–105; PULSE 93–161; RESP 16–26
[2016-08-17] MEDS: INSULIN ASPART [NOVOLOG] 3 ML PEN SC SCH ×6 (01:00→21:39)
[2016-08-17] MEDS: VANCOMYCIN HCL 250 MG/5ML POSYG NGT SCH ×4 (01:06→17:03)
[2016-08-17] MEDS: MIDAZOLAM 50 MG in DEXTROSE 5% 40 ML IV SCH ×4 (01:47→23:01)
[2016-08-17] MEDS: FENTAnyl 1,000 MCG in DEXTROSE 5% 80 ML IV SCH ×2 (01:48→15:41)
[2016-08-17] MEDS: IPRATROPIUM (HFA) 12.9 GM INHALER INH SCH ×4 (01:53→19:36)
[2016-08-17] MEDS: ALBUTEROL HFA 8 GM INHALER INH SCH ×4 (01:53→19:36)
[2016-08-17] MEDS: LANSOPRAZOLE 30 MG CAP GTB SCH (05:39)
[2016-08-17 06:19] LABS: CREATININE 2.4 mg/dl (0.61-1.24); PHOSPHORUS 2.5 mg/dl (2.5-4.9)
[2016-08-17 06:20] LABS: CALCIUM 7.7 mg/dl (8.4-10.2)
[2016-08-17 06:22] LABS: POTASSIUM 2.8 mmol/L (3.5-5.1)
[2016-08-17 06:43] LABS: EOSINOPHILS % 0.3 % (0.0-7.0); HEMATOCRIT 25.8 % (42.0-52.0); HEMOGLOBIN 8.6 g/dl (14.0-18.0); LYMPHOCYTES # 1.2 10^3/ul (0.8-2.9); LYMPHOCYTES % 9.3 % (15.0-51.0); MEAN CORPUSCULAR HEMOGLOBIN 32.4 pg (29.0-33.0); MEAN CORPUSCULAR HGB CONC 33.2 g/dl (32.0-37.0); MEAN CORPUSCULAR VOLUME 97.4 fl (82.0-101.0); MONOCYTE # 0.4 10^3/ul (0.3-0.9); MONOCYTES % 3.1 % (0.0-11.0); NEUTROPHIL # 10.8 10^3/ul (1.6-7.5); NEUTROPHILS % 87.3 % (39.0-77.0); PLATELET COUNT 109 10^3/UL (140-440); RED BLOOD COUNT 2.65 10^6/ul (4.70-6.10); RED CELL DISTRIBUTION WIDTH 14.8 % (11.5-14.5); UNCORRECTED WBC 12.4 10^3/ul (4.8-10.8); WHITE BLOOD COUNT 12.4 10^3/ul (4.8-10.8)
[2016-08-17 06:51] LABS: CONDITION 1; LH ANALYZER COMMENTS 1
[2016-08-17] MEDS: POTASSIUM CHLORIDE 250 ML IVPB SCH ×2 (07:39→12:04)
--- NOTE | 2016-08-17 07:47 | CONS ---
Date/Time of Note Date/Time of Note DATE: 08/17/16 TIME: 07:45 Assessment/Plan Assessment/Plan Additional Assessment/Plan 1. CKD, next HD scheduled tomm 2. Low K with pac's and SVT, being repleted 3. Vacillator dependent, PEG and trach planned 4. Pul infiltrate, abx per id Consultation Date/Type/Reason Admit Date/Time Jul 26, 2016 at 01:55 Type of Consultation: cv Referring Provider: RGACIE KATHLEEN 24 HR Interval Summary Constitutional: other (intubated and sedated) Exam/Review of Systems Vital Signs Vitals Vital Signs Date Time Temp Pulse Resp B/P Pulse Ox O2 Delivery O2 Flow Rate FiO2 08/17/16 06:30 108 18 108/59 97 08/17/16 06:00 Mechanical Ventilator 08/17/16 05:48 50 08/17/16 02:45 98.4 08/15/16 22:00 6.0 Intake and Output 08/16/16 08/16/16 08/17/16 15:00 23:00 07:00 Intake Total 540.96 ml 1515.61 ml 473.5 ml Output Total 0 ml 1800 ml 400 ml Balance 540.96 ml -284.39 ml 73.5 ml Exam Neck: No jvd Respiratory: diminished breath sounds Cardiovascular: regular rate and rhythm Gastrointestinal: soft Extremities: No edema (and trace sacral edema) Results Result Diagram: 08/17/16 0523 08/17/16 0523 Results 24 hrs Laboratory Tests Test 08/16/16 09:28 08/16/16 09:49 08/16/16 10:01 08/16/16 11:26 Bedside Glucose 65 L 107 102 94 Test 08/16/16 12:50 08/16/16 17:28 08/16/16 19:58 08/17/16 01:32 Bedside Glucose 99 167 107 102 Test 08/17/16 05:23 08/17/16 05:36 Anion Gap 15 # Basophils # 0.0 Basophils % 0.0 Blood Morphology Comment Blood Urea Nitrogen 45 #H Calcium Level 7.7 L Carbon Dioxide Level 29 Chloride Level 97 Creatinine 2.40 #H Eosinophils # 0.0 Eosinophils % 0.3 Glucose Level 81 Hematocrit 25.8 #L Hemoglobin 8.6 L Lymphocytes # 1.2 Lymphocytes % 9.3 L Magnesium Level 2.0 Mean Corpuscular Hemoglobin 32.4 Mean Corpuscular Hemoglobin Concent 33.2 Mean Corpuscular Volume 97.4 Mean Platelet Volume 8.0 Monocytes # 0.4 Monocytes % 3.1 Neutrophils # 10.8 H Neutrophils % 87.3 H Nucleated Red Blood Cells # 0.0 Nucleated Red Blood Cells % 0.0 Phosphorus Level 2.5 # Platelet Count 109 #L Potassium Level 2.8 *L Red Blood Count 2.65 #L Red Cell Distribution Width 14.8 H Sodium Level 138 White Blood Count 12.4 #H Bedside Glucose 94 Medications Medications Current Medications Fluticasone Propionate (Flonase 0.05% Nasal) 1 spray BID NASAL Last administered on 08/16/16at 19:59; Admin Dose 1 SPRAY; Start 07/26/16 at 10:00 Epoetin [place] (Epogen (Esrd)) 10,000 units MoWeFr@17 SC Last administered on at 17:13; Admin Dose 10,000 UNITS; Start 07/27/16 at 17:00; Status Future hold Hydralazine HCl 10 mg 10 mg Q6H PRN IV ELEVATED BLOOD PRESSURE Last administered on 08/15/16at 15:37; Admin Dose 10 MG; Start 07/29/16 at 13:00 Midazolam HCl/ Dextrose (Versed/D5W) 50 ml @ 1 mls/hr TITRATE IV Last administered on 08/17/16at 01:47; Admin Dose 7 MLS/HR; Start 08/01/16 at 23:00 Acetaminophen (Tylenol Tab) 650 mg Q6H PRN GTB PAIN1-3/FEVER ABOVE 100 Last administered on 08/12/16at 06:07; Admin Dose 650 MG; Start 08/02/16 at 15:00 Atorvastatin Calcium (Lipitor) 40 mg HS GTB Last administered on 08/16/16at 20: 00; Admin Dose 40 MG; Start 08/02/16 at 21:00 Carvedilol (Coreg) 6.25 mg BID GTB ; Start 08/02/16 at 09:00; Status Future Hold Duloxetine HCl (Cymbalta) 90 mg DAILY GTB Last administered on 08/16/16at 09:31 ; Admin Dose 90 MG; Start 08/02/16 at 09:00 Guaifenesin (Robitussin Liquid Cup) 100 mg Q4 PRN GTB COUGH; Start 08/02/16 at 09:00 Acetaminophen/ Hydrocodone Bitart ([place] (5/325)) 1 tab Q4 PRN GTB WSOB Last administered on 08/08/16 09:01; Admin Dose 1 TAB; Start 08/02/16 at 09:00 Lactobacillus Acidoph/Bulgaricus (Floranex) 1 tab DAILY GTB Last administered on 08/16/16 09:30; Admin Dose 1 TAB; Start 08/02/16 at 09:00 Lorazepam (Ativan) 1 mg Q6H PRN GTB ANXIETY Last administered on 08/08/16 21: 02; Admin Dose 1 MG; Start 08/02/16 at 09:00 Multivit/Ca Carb/ B Cmplx/FA/Prenat (Cheryl-Darcie) 1 tab DAILY GTB Last administered on 08/16/16 09:30; Admin Dose 1 TAB; Start 08/02/16 at 09:00 Aspirin (Aspirin) 81 mg DAILY GTB Last administered on 08/16/16 09:30; Admin Dose 81 MG; Start 08/02/16 at 09:00 Lansoprazole 30 mg 30 mg DAILY@06 GTB Last administered on 08/17/16 05:39; Admin Dose 30 MG; Start 08/02/16 at 10:00 Phenylephrine HCl 80 mg/Dextrose 250 ml @ 18.75 mls/ hr TITRATE IV ; Start at 12:30 Norepinephrine/ Dextrose (Levophed/D5W) 500 ml @ 1.87 mls/hr TITRATE IV Last administered on 08/16/16 01:50; Admin Dose 3.75 MLS/HR; Start 08/05/16 at 12: 00 Vancomycin HCl (Vancomycin Oral Syringe) 125 mg Q6 NGT Last administered on 05:39; Admin Dose 125 MG; Start 08/06/16 at 18:00 Sildenafil Citrate (Revatio) 20 mg BID PO Last administered on 08/11/16 11:56 ; Admin Dose 20 MG; Start 08/08/16 at 21:00; Status Future Hold Lorazepam (Ativan) 0.5 mg Q4 PRN IV ANXIETY Last administered on 08/09/16 10: 51; Admin Dose 0.5 MG; Start 08/09/16 at 00:00 Methylprednisolone Sodium Succinate (Solu-Medrol) 20 mg DAILY IV Last administered on 08/16/16at 09:31; Admin Dose 20 MG; Start 08/10/16 at 09:00 Insulin Glargine (Lantus) 30 unit QAM SC Last administered on 08/16/16at 11:28 ; Admin Dose 30 UNIT; Start 08/11/16 at 12:00 Miscellaneous Information 1 ea NOTE XX ; Start 08/11/16 at 12:00 Glucose (Glutose) 15 gm Q15M PRN PO DECREASED GLUCOSE; Start 08/11/16 at 12:00 Glucose (Glutose) 22.5 gm Q15M PRN PO DECREASED GLUCOSE; Start 08/11/16 at 12: 00 Dextrose (D50w Syringe) 25 ml Q15M PRN IV DECREASED GLUCOSE Last administered on 08/16/16at 09:32; Admin Dose 25 ML; Start 08/11/16 at 12:00 Dextrose (D50w Syringe) 50 ml Q15M PRN IV DECREASED GLUCOSE; Start 08/11/16 at 12:00 Glucagon (Glucagen) 1 mg Q15M PRN IM DECREASED GLUCOSE; Start 08/11/16 at 12: 00 Glucose 15 gm 15 gm Q15M PRN BUCCAL DECREASED GLUCOSE; Start 08/11/16 at 12:00 Caspofungin/ Sodium Chloride (Cancidas/NS) 250 ml @ 250 mls/hr Q24H IVPB Last administered on 08/16/16at 17:25; Admin Dose 250 MLS/HR; Start 08/12/16 at 14: 00 Insulin Aspart (Novolog Insulin Pen) NOVOLOG *MODERATE* ALGORI... Q4 SC Last administered on 08/16/16at 17:33; Admin Dose 2 UNIT; Start 08/11/16 at 17:00 IV Flush 10 ml 10 ml PRN PRN IV IV PROTOCOL; Start 08/13/16 at 18:00 Cefazolin Sodium (Ancef 1 Gm/50 ml (Pmx)) 50 ml @ 100 mls/hr Q24H IVPB Last administered on 08/16/16at 18:34; Admin Dose 100 MLS/HR; Start 08/14/16 at 17: 00 Collagenase 1 applic 1 applic DAILY@22 TOP Last administered on 08/16/16at 20: 00; Admin Dose 1 APPLIC; Start 08/15/16 at 22:00 Fentanyl 1000 mcg/ Dextrose 100 ml @ 2.6 mls/hr TITRATE IV Last administered on 08/17/16at 01:48; Admin Dose 2.6 MLS/HR; Start 08/15/16 at 19:30 Potassium Chloride (KCl 40 MEQ/250 ML NS) 250 ml @ 62.5 mls/hr Q4H IVPB Last administered on 08/17/16 07:39; Admin Dose 62.5 MLS/HR; Start 08/17/16 at 07: 00; Stop 08/17/16 at 14:59 JESSICA ROSARIO MD Aug 17, 2016 07:46
[2016-08-17] MEDS: LACTOBACILLUS CHEW TAB GTB SCH (08:30)
[2016-08-17] MEDS: ASPIRIN 81 MG TAB GTB SCH (08:30)
[2016-08-17] MEDS: DULOXETINE 30 MG CAP DR GTB SCH (08:30)
[2016-08-17] MEDS: MULTIVIT/CA CARB/B CMPLX/FA TAB GTB SCH (08:31)
[2016-08-17] MEDS: FLUTICASONE 0.05% 16 GM NAS SPRAY NASAL SCH ×2 (08:31→21:36)
[2016-08-17] MEDS: METHYLPREDNISOLONE 40 MG INJ IV SCH (08:31)
[2016-08-17] MEDS: INSULIN GLARGINE [LANtus] 3 ML PEN SC SCH (08:55)
--- NOTE | 2016-08-17 09:15 | RADRPT ---
PROCEDURE: XR Chest. CLINICAL INDICATION: Shortness of breath. TECHNIQUE: Single frontal view. COMPARISON: 08/16/2016. FINDINGS: The endotracheal tube has been removed. The nasogastric tube and right arm PICC line remain in sati sfactory position. There are low lung volumes and mild pulmonary edema, unchanged. The heart size is normal. There is no pleural effusion. There is no pneumothorax. IMPRESSION: 1. Endotracheal tube removed. 2. No other change from 08/16/2016. RPTAT: QQ .Luca Hopkins MD, MD Date Time Electronically viewed and signed by .Luca Hopkins MD, MD on 08/17/2016 09:14 .R/
--- NOTE | 2016-08-17 09:35 | CONS ---
Date/Time of Note Date/Time of Note DATE: 08/17/16 TIME: 09:33 Assessment/Plan Assessment/Plan Chief Complaint/Hosp Course Assessment/Impression: - acute hypoxemic respiratory failure, now VDRF - intubated 07/31 and reintubated 08/15. Awaiting trach. - aspiration PNA (Respiratory cx grew 08/02 rare C. albicans and on 08/10 grew MSSA and C. Albicans) - SIRS with worsening leukocytosis and tachycardia d/t stress response from reintubation. Remains afebrile. - Hypotension d/t sedation after reintubation requiring short term low dose pressor on 08/15-08/16 - Sepsis d/t C diff colitis. 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 - coagulopathy d/t warfarin - PAD with Hx Left BKA - Parkinson's - Stage 2 coccyx decub - PCN allergic - s/p Primaxin (08/05- 08/14), IV vanco (07/29-08/13), aztreonam (07/29-08/05) - DNR Recommendations: - Continue IV cefazolin x 10- 14 days (08/14/16-) - Continue PO vanco via OGT (07/1916-) for duration of systemic abx and then 10 days thereafter - Continue caspofungin (08/12/16-) empirically based on borderline positive beta d glucan- finish 14 days - Trend WBC (downward trending; still on low dose steroid) - Awaiting trach and PEG - Above d/w Dr. Alexander - Critical care time spent: 42 minutes Problems: Consultation Date/Type/Reason Admit Date/Time Jul 26, 2016 at 01:55 Initial Consult Date 07/29/16 Type of Consultation: Infectious Disease Reason for Consultation Antibiotic management Referring Provider: GRACIE KATHLEEN 24 HR Interval Summary Free Text/Dictation Pt with frequent PAC's and PAT's and potassium being replaced (K 2.8). Otherwise, pt is off pressors, afebrile, remains intubated on fentanyl and versed, and awaiting Trach and PEG per RN Irlanda. Diarrhea resolving. Exam/Review of Systems Vital Signs Vitals Vital Signs Date Time Temp Pulse Resp B/P Pulse Ox O2 Delivery O2 Flow Rate FiO2 08/17/16 08:00 50 08/17/16 08:00 99.1 111 20 111/59 100 Mechanical Ventilator 08/15/16 22:00 6.0 Intake and Output 08/16/16 08/16/16 08/17/16 14:59 22:59 06:59 Intake Total 510.96 ml 1574.48 ml 473.5 ml Output Total 0 ml 1800 ml 400 ml Balance 510.96 ml -225.52 ml 73.5 ml Exam Constitutional: frail, other (orally intubated, chronically debilitated), Head: atraumatic, normocephalic ENMT: mucosa pink and dry. No thrush noted. Neck: supple, no bruits Respiratory: Diminished breath sounds, otherwise clear. No wheezing Cardiovascular: regular rhythm, tachycardic, normal S1 and S2 Gastrointestinal: soft, bowel sounds present, other (NGT with TF; rectal tube intact with no stool noted). Extremities: edema (trace - 1+ right pedal), other (LLE BKA noted; LUE AVF with + bruit/thrill; left middle finger partial amputation noted) Neurological: Sedated; currently not following commands Skin: ecchymosis (scattered BUE), nl turgor, other (RUE PICC c/d/i). Wound ( coccyx stage 2 with dressing c/d/i and perianal area with dermatitis d/t incontinence - See Nurses note for details), Other (RLE with areas of erythema). Results Result Diagram: 08/17/16 0523 08/17/16 0523 Results 24 hrs Laboratory Tests Test 08/16/16 09:49 08/16/16 10:01 08/16/16 11:26 08/16/16 12:50 Bedside Glucose 107 102 94 99 Test 08/16/16 17:28 08/16/16 19:58 08/17/16 01:32 08/17/16 05:23 Bedside Glucose 167 107 102 Anion Gap 15 # Basophils # 0.0 Basophils % 0.0 Blood Morphology Comment Blood Urea Nitrogen 45 #H Calcium Level 7.7 L Carbon Dioxide Level 29 Chloride Level 97 Creatinine 2.40 #H Eosinophils # 0.0 Eosinophils % 0.3 Glucose Level 81 Hematocrit 25.8 #L Hemoglobin 8.6 L Lymphocytes # 1.2 Lymphocytes % 9.3 L Magnesium Level 2.0 Mean Corpuscular Hemoglobin 32.4 Mean Corpuscular Hemoglobin Concent 33.2 Mean Corpuscular Volume 97.4 Mean Platelet Volume 8.0 Monocytes # 0.4 Monocytes % 3.1 Neutrophils # 10.8 H Neutrophils % 87.3 H Nucleated Red Blood Cells # 0.0 Nucleated Red Blood Cells % 0.0 Phosphorus Level 2.5 # Platelet Count 109 #L Potassium Level 2.8 *L Red Blood Count 2.65 #L Red Cell Distribution Width 14.8 H Sodium Level 138 White Blood Count 12.4 #H Test 08/17/16 05:36 08/17/16 08:29 Bedside Glucose 94 77 Respiratory Culture 08/10/16: GRAM STAIN Final POLYMORPH. LEUKOCYTE 2+ GRAM POS COCCI IN PAIRS RARE MONONUCLEAR WBC 3+ RESPIRATORY CULTURE Final Organism 1 STAPHYLOCOCCUS AUREUS QUANTITY SCANT GROWTH Organism 2 BREONNA ALBICANS QUANTITY SCANT GROWTH S AUREUS M.I.C. RX --------- --- CEFAZOLIN S CIPROFLOXACIN >=8 R CLINDAMYCIN >=8 R DOXYCYCLINE S ERYTHROMYCIN >=8 R LEVOFLOXACIN >=8 R OXACILLIN 0.5 S PENICILLIN-G >=0.5 R RIFAMPIN <=0.5 S VANCOMYCIN <=0.5 S TRIMETHOPRIM/SULFAMETHOXAZOLE <=10 S Blood cultures on 07/29, 08/09 & 08/10: Negative to date Respiratory culture 08/02/16: GRAM STAIN Final POLYMORPH. LEUKOCYTE RARE . NO ORGANISM SEEN RESPIRATORY CULTURE Final Organism 1 BREONNA ALBICANS QUANTITY RARE Organism 2 NORMAL RESPIRATORY MEKHI QUANTITY SCANT GROWTH C diff 08/06/16: Positive MRSA screen 07/27/16: Negative Medications Medications Current Medications Fluticasone Propionate (Flonase 0.05% Nasal) 1 spray BID NASAL Last administered on 08/17/16at 08:31; Admin Dose 1 SPRAY; Start 07/26/16 at 10:00 Epoetin [place] (Epogen (Esrd)) 10,000 units MoWeFr@17 SC Last administered on at 17:13; Admin Dose 10,000 UNITS; Start 07/27/16 at 17:00; Status Future hold Hydralazine HCl 10 mg 10 mg Q6H PRN IV ELEVATED BLOOD PRESSURE Last administered on 08/15/16at 15:37; Admin Dose 10 MG; Start 07/29/16 at 13:00 Midazolam HCl/ Dextrose (Versed/D5W) 50 ml @ 1 mls/hr TITRATE IV Last administered on 08/17/16 01:47; Admin Dose 7 MLS/HR; Start 08/01/16 at 23:00 Acetaminophen (Tylenol Tab) 650 mg Q6H PRN GTB PAIN1-3/FEVER ABOVE 100 Last administered on 08/12/16at 06:07; Admin Dose 650 MG; Start 08/02/16 at 15:00 Atorvastatin Calcium (Lipitor) 40 mg HS GTB Last administered on 08/16/16at 20: 00; Admin Dose 40 MG; Start 08/02/16 at 21:00 Carvedilol (Coreg) 6.25 mg BID GTB ; Start 08/02/16 at 09:00; Status Future Hold Duloxetine HCl (Cymbalta) 90 mg DAILY GTB Last administered on 08/17/16at 08:30 ; Admin Dose 90 MG; Start 08/02/16 at 09:00 Guaifenesin (Robitussin Liquid Cup) 100 mg Q4 PRN GTB COUGH; Start 08/02/16 at 09:00 Acetaminophen/ Hydrocodone Bitart ([place] (5/325)) 1 tab Q4 PRN GTB WSOB Last administered on 08/08/16at 09:01; Admin Dose 1 TAB; Start 08/02/16 at 09:00 Lactobacillus Acidoph/Bulgaricus (Floranex) 1 tab DAILY GTB Last administered on 08/17/16 08:30; Admin Dose 1 TAB; Start 08/02/16 at 09:00 Lorazepam (Ativan) 1 mg Q6H PRN GTB ANXIETY Last administered on 08/08/16at 21: 02; Admin Dose 1 MG; Start 08/02/16 at 09:00 Multivit/Ca Carb/ B Cmplx/FA/Prenat (Cheryl-Darcie) 1 tab DAILY GTB Last administered on 08/17/16 08:31; Admin Dose 1 TAB; Start 08/02/16 at 09:00 Aspirin (Aspirin) 81 mg DAILY GTB Last administered on 08/17/16 08:30; Admin Dose 81 MG; Start 08/02/16 at 09:00 Lansoprazole 30 mg 30 mg DAILY@06 GTB Last administered on 08/17/16 05:39; Admin Dose 30 MG; Start 08/02/16 at 10:00 Phenylephrine HCl 80 mg/Dextrose 250 ml @ 18.75 mls/ hr TITRATE IV ; Start at 12:30 Norepinephrine/ Dextrose (Levophed/D5W) 500 ml @ 1.87 mls/hr TITRATE IV Last administered on 08/16/16 01:50; Admin Dose 3.75 MLS/HR; Start 08/05/16 at 12: 00 Vancomycin HCl (Vancomycin Oral Syringe) 125 mg Q6 NGT Last administered on 05:39; Admin Dose 125 MG; Start 08/06/16 at 18:00 Sildenafil Citrate (Revatio) 20 mg BID PO Last administered on 08/11/16 11:56 ; Admin Dose 20 MG; Start 08/08/16 at 21:00; Status Future Hold Lorazepam (Ativan) 0.5 mg Q4 PRN IV ANXIETY Last administered on 08/09/16 10: 51; Admin Dose 0.5 MG; Start 08/09/16 at 00:00 Methylprednisolone Sodium Succinate (Solu-Medrol) 20 mg DAILY IV Last administered on 08/17/16 08:31; Admin Dose 20 MG; Start 08/10/16 at 09:00 Insulin Glargine (Lantus) 30 unit QAM SC Last administered on 08/17/16 08:55 ; Admin Dose 30 UNIT; Start 08/11/16 at 12:00 Miscellaneous Information 1 ea NOTE XX ; Start 08/11/16 at 12:00 Glucose (Glutose) 15 gm Q15M PRN PO DECREASED GLUCOSE; Start 08/11/16 at 12:00 Glucose (Glutose) 22.5 gm Q15M PRN PO DECREASED GLUCOSE; Start 08/11/16 at 12: 00 Dextrose (D50w Syringe) 25 ml Q15M PRN IV DECREASED GLUCOSE Last administered on 08/16/16at 09:32; Admin Dose 25 ML; Start 08/11/16 at 12:00 Dextrose (D50w Syringe) 50 ml Q15M PRN IV DECREASED GLUCOSE; Start 08/11/16 at 12:00 Glucagon (Glucagen) 1 mg Q15M PRN IM DECREASED GLUCOSE; Start 08/11/16 at 12: 00 Glucose 15 gm 15 gm Q15M PRN BUCCAL DECREASED GLUCOSE; Start 08/11/16 at 12:00 Caspofungin/ Sodium Chloride (Cancidas/NS) 250 ml @ 250 mls/hr Q24H IVPB Last administered on 08/16/16at 17:25; Admin Dose 250 MLS/HR; Start 08/12/16 at 14: 00 Insulin Aspart (Novolog Insulin Pen) NOVOLOG *MODERATE* ALGORI... Q4 SC Last administered on 08/16/16at 17:33; Admin Dose 2 UNIT; Start 08/11/16 at 17:00 IV Flush 10 ml 10 ml PRN PRN IV IV PROTOCOL; Start 08/13/16 at 18:00 Cefazolin Sodium (Ancef 1 Gm/50 ml (Pmx)) 50 ml @ 100 mls/hr Q24H IVPB Last administered on 08/16/16at 18:34; Admin Dose 100 MLS/HR; Start 08/14/16 at 17: 00 Collagenase 1 applic 1 applic DAILY@22 TOP Last administered on 08/16/16at 20: 00; Admin Dose 1 APPLIC; Start 08/15/16 at 22:00 Fentanyl 1000 mcg/ Dextrose 100 ml @ 2.6 mls/hr TITRATE IV Last administered on 08/17/16at 01:48; Admin Dose 2.6 MLS/HR; Start 08/15/16 at 19:30 Potassium Chloride (KCl 40 MEQ/250 ML NS) 250 ml @ 62.5 mls/hr Q4H IVPB Last administered on 08/17/16at 07:39; Admin Dose 62.5 MLS/HR; Start 08/17/16 at 07: 00; Stop 08/17/16 at 14:59 Procedures Procedures CXR 08/17/16: 1. Endotracheal tube removed. 2. No other change from 08/16/2016. CXR 08/15/16: 1. Endotracheal tube in place, 2.8 cm from the sofie. Nasogastric tube and right PICC line in place. 2. Prominence of interstitial markings likely reflecting chronic change. CXR 08/14/16: 1. Mild pulmonary vascular congestion, increased from prior x-ray. 2. Lines and tubes remain in place. 3. No evidence of focal acute infiltrate. CT Brain 07/30/16: Examination is degraded due to patient motion artifact. No evidence of focal hematoma, mass effect, or definite acute ischemic changes. Moderate chronic-appearing microvascular ischemic changes of the supratentorial white matter. Venous study 07/26/16: Old partial DVT of the right internal jugular vein. BLE venous study 07/26/16: No evidence of deep vein thrombosis involving either lower extremity. VQ scan 07/26/16: 1. No evidence of deep vein thrombosis involving either lower extremity. JERICHO CRABTREE NP Aug 17, 2016 09:35
--- NOTE | 2016-08-17 10:08 | CONS ---
Date/Time of Note Date/Time of Note DATE: 08/17/16 TIME: 10:06 Consult Date/Type/Reason Admit Date/Time Jul 26, 2016 at 01:55 Initial Consult Date 07/29/16 Type of Consultation: pulmonary Ordering Provider: GRACIE KATHLEEN Subjective Patient continues mechanical ventilation Moderate oral secretions Currently hemodynamically stable Objective Vital Signs Date Time Temp Pulse Resp B/P Pulse Ox O2 Delivery O2 Flow Rate FiO2 08/17/16 08:00 50 08/17/16 08:00 99.1 111 20 111/59 100 Mechanical Ventilator 08/15/16 22:00 6.0 Intake and Output 08/16/16 08/16/16 08/17/16 15:00 23:00 07:00 Intake Total 540.96 ml 1515.61 ml 473.5 ml Output Total 0 ml 1800 ml 400 ml Balance 540.96 ml -284.39 ml 73.5 ml GENERAL: Elderly gentleman on mechanical ventilation orally intubated VITAL SIGNS: per chart NECK: Supple. No JVD or lymphadenopathy. CARDIAC EXAM: S1, S2. No added sounds or murmurs. CHEST: Diminished air entry bilaterally ABDOMEN: Soft, nontender. No guarding or rebound. EXTREMITIES: No cyanosis, clubbing or edema. NEUROLOGIC: Generalized weakness. No focal deficits. Results/Medications Result Diagram: 08/17/16 0523 08/17/16 0523 Results 24 hrs Laboratory Tests Test 08/16/16 11:26 08/16/16 12:50 08/16/16 17:28 08/16/16 19:58 Bedside Glucose 94 99 167 107 Test 08/17/16 01:32 08/17/16 05:23 08/17/16 05:36 08/17/16 08:29 Bedside Glucose 102 94 77 Anion Gap 15 # Basophils # 0.0 Basophils % 0.0 Blood Morphology Comment Blood Urea Nitrogen 45 #H Calcium Level 7.7 L Carbon Dioxide Level 29 Chloride Level 97 Creatinine 2.40 #H Eosinophils # 0.0 Eosinophils % 0.3 Glucose Level 81 Hematocrit 25.8 #L Hemoglobin 8.6 L Lymphocytes # 1.2 Lymphocytes % 9.3 L Magnesium Level 2.0 Mean Corpuscular Hemoglobin 32.4 Mean Corpuscular Hemoglobin Concent 33.2 Mean Corpuscular Volume 97.4 Mean Platelet Volume 8.0 Monocytes # 0.4 Monocytes % 3.1 Neutrophils # 10.8 H Neutrophils % 87.3 H Nucleated Red Blood Cells # 0.0 Nucleated Red Blood Cells % 0.0 Phosphorus Level 2.5 # Platelet Count 109 #L Potassium Level 2.8 *L Red Blood Count 2.65 #L Red Cell Distribution Width 14.8 H Sodium Level 138 White Blood Count 12.4 #H Medications Current Medications Fluticasone Propionate (Flonase 0.05% Nasal) 1 spray BID NASAL Last administered on 08/17/16at 08:31; Admin Dose 1 SPRAY; Start 07/26/16 at 10:00 Epoetin [place] (Epogen (Esrd)) 10,000 units MoWeFr@17 SC Last administered on 17:13; Admin Dose 10,000 UNITS; Start 07/27/16 at 17:00; Status Future hold Hydralazine HCl 10 mg 10 mg Q6H PRN IV ELEVATED BLOOD PRESSURE Last administered on 08/15/16at 15:37; Admin Dose 10 MG; Start 07/29/16 at 13:00 Midazolam HCl/ Dextrose (Versed/D5W) 50 ml @ 1 mls/hr TITRATE IV Last administered on 08/17/16 09:37; Admin Dose 8 MLS/HR; Start 08/01/16 at 23:00 Acetaminophen (Tylenol Tab) 650 mg Q6H PRN GTB PAIN1-3/FEVER ABOVE 100 Last administered on 08/12/16at 06:07; Admin Dose 650 MG; Start 08/02/16 at 15:00 Atorvastatin Calcium (Lipitor) 40 mg HS GTB Last administered on 08/16/16at 20: 00; Admin Dose 40 MG; Start 08/02/16 at 21:00 Carvedilol (Coreg) 6.25 mg BID GTB ; Start 08/02/16 at 09:00; Status Future Hold Duloxetine HCl (Cymbalta) 90 mg DAILY GTB Last administered on 08/17/16at 08:30 ; Admin Dose 90 MG; Start 08/02/16 at 09:00 Guaifenesin (Robitussin Liquid Cup) 100 mg Q4 PRN GTB COUGH; Start 08/02/16 at 09:00 Acetaminophen/ Hydrocodone Bitart ([place] (5/325)) 1 tab Q4 PRN GTB WSOB Last administered on 08/08/16 09:01; Admin Dose 1 TAB; Start 08/02/16 at 09:00 Lactobacillus Acidoph/Bulgaricus (Floranex) 1 tab DAILY GTB Last administered on 08/17/16 08:30; Admin Dose 1 TAB; Start 08/02/16 at 09:00 Lorazepam (Ativan) 1 mg Q6H PRN GTB ANXIETY Last administered on 08/08/16 21: 02; Admin Dose 1 MG; Start 08/02/16 at 09:00 Multivit/Ca Carb/ B Cmplx/FA/Prenat (Cheryl-Darcie) 1 tab DAILY GTB Last administered on 08/17/16 08:31; Admin Dose 1 TAB; Start 08/02/16 at 09:00 Aspirin (Aspirin) 81 mg DAILY GTB Last administered on 08/17/16 08:30; Admin Dose 81 MG; Start 08/02/16 at 09:00 Lansoprazole 30 mg 30 mg DAILY@06 GTB Last administered on 08/17/16 05:39; Admin Dose 30 MG; Start 08/02/16 at 10:00 Phenylephrine HCl 80 mg/Dextrose 250 ml @ 18.75 mls/ hr TITRATE IV ; Start at 12:30 Norepinephrine/ Dextrose (Levophed/D5W) 500 ml @ 1.87 mls/hr TITRATE IV Last administered on 08/16/16 01:50; Admin Dose 3.75 MLS/HR; Start 08/05/16 at 12: 00 Vancomycin HCl (Vancomycin Oral Syringe) 125 mg Q6 NGT Last administered on 05:39; Admin Dose 125 MG; Start 08/06/16 at 18:00 Sildenafil Citrate (Revatio) 20 mg BID PO Last administered on 08/11/16 11:56 ; Admin Dose 20 MG; Start 08/08/16 at 21:00; Status Future Hold Lorazepam (Ativan) 0.5 mg Q4 PRN IV ANXIETY Last administered on 08/09/16 10: 51; Admin Dose 0.5 MG; Start 08/09/16 at 00:00 Methylprednisolone Sodium Succinate (Solu-Medrol) 20 mg DAILY IV Last administered on 08/17/16 08:31; Admin Dose 20 MG; Start 08/10/16 at 09:00 Insulin Glargine (Lantus) 30 unit QAM SC Last administered on 08/17/16at 08:55 ; Admin Dose 30 UNIT; Start 08/11/16 at 12:00 Miscellaneous Information 1 ea NOTE XX ; Start 08/11/16 at 12:00 Glucose (Glutose) 15 gm Q15M PRN PO DECREASED GLUCOSE; Start 08/11/16 at 12:00 Glucose (Glutose) 22.5 gm Q15M PRN PO DECREASED GLUCOSE; Start 08/11/16 at 12: 00 Dextrose (D50w Syringe) 25 ml Q15M PRN IV DECREASED GLUCOSE Last administered on 08/16/16at 09:32; Admin Dose 25 ML; Start 08/11/16 at 12:00 Dextrose (D50w Syringe) 50 ml Q15M PRN IV DECREASED GLUCOSE; Start 08/11/16 at 12:00 Glucagon (Glucagen) 1 mg Q15M PRN IM DECREASED GLUCOSE; Start 08/11/16 at 12: 00 Glucose 15 gm 15 gm Q15M PRN BUCCAL DECREASED GLUCOSE; Start 08/11/16 at 12:00 Caspofungin/ Sodium Chloride (Cancidas/NS) 250 ml @ 250 mls/hr Q24H IVPB Last administered on 08/16/16at 17:25; Admin Dose 250 MLS/HR; Start 08/12/16 at 14: 00 Insulin Aspart (Novolog Insulin Pen) NOVOLOG *MODERATE* ALGORI... Q4 SC Last administered on 08/16/16at 17:33; Admin Dose 2 UNIT; Start 08/11/16 at 17:00 IV Flush 10 ml 10 ml PRN PRN IV IV PROTOCOL; Start 08/13/16 at 18:00 Cefazolin Sodium (Ancef 1 Gm/50 ml (Pmx)) 50 ml @ 100 mls/hr Q24H IVPB Last administered on 08/16/16at 18:34; Admin Dose 100 MLS/HR; Start 08/14/16 at 17: 00 Collagenase 1 applic 1 applic DAILY@22 TOP Last administered on 08/16/16at 20: 00; Admin Dose 1 APPLIC; Start 08/15/16 at 22:00 Fentanyl 1000 mcg/ Dextrose 100 ml @ 2.6 mls/hr TITRATE IV Last administered on 08/17/16at 01:48; Admin Dose 2.6 MLS/HR; Start 08/15/16 at 19:30 Potassium Chloride (KCl 40 MEQ/250 ML NS) 250 ml @ 62.5 mls/hr Q4H IVPB Last administered on 08/17/16at 07:39; Admin Dose 62.5 MLS/HR; Start 08/17/16 at 07: 00; Stop 08/17/16 at 14:59 Assessment/Plan Chief Complaint/Hosp Course assessment 1. Hypoxemic resp failure, reintubation now once again on mechanical ventilation 2. Pulm edema, right lower lobe infiltrate, possible aspiration pneumonia. 3. Encephalopathy toxic metabolic 4. Diastolic dysf ? 5. Persistent leukocytosis likely polymicrobial sepsis 6. End-stage renal failure on hemodialysis Plan 1. Continue Vent, will require tracheostomy and G-tube placement 2. Hemodialysis per nephrology 3, Aspiration precautions 4. DVT / GI prophylaxis. 5. Continue broad-spectrum antibiotics pending cultures d/w staff CODE STATUS DNR Case was discussed with patient's family members yesterday Pending tracheostomy Problems: VALERIE CAMARENA MD, [facility] Aug 17, 2016 10:07
--- NOTE | 2016-08-17 11:41 | CONS ---
Date/Time of Note Date/Time of Note DATE: 08/17/16 TIME: 11:39 Assessment/Plan Assessment/Plan Additional Assessment/Plan Respiratory failure status post intubation Sepsis Minimally elevated troponin Partial right internal jugular DVT Diastolic congestive heart failure End-stage renal disease on hemodialysis CAD with history of PCI Diabetes Peripheral arterial disease with history of amputation Pulmonary hypertension -Patient plan to proceed with tracheostomy and PEG placement. Patient with hypokalemia and more frequent PACs and potassium being supplemented, magnesium currently 2.0. Consultation Date/Type/Reason Admit Date/Time Jul 26, 2016 at 01:55 Type of Consultation: cv Referring Provider: GRACIE KATHLEEN 24 HR Interval Summary Free Text/Dictation Patient remains intubated and sedated Exam/Review of Systems Vital Signs Vitals Vital Signs Date Time Temp Pulse Resp B/P Pulse Ox O2 Delivery O2 Flow Rate FiO2 08/17/16 11:00 106 18 136/65 98 Mechanical Ventilator 08/17/16 08:00 50 08/17/16 08:00 99.1 08/15/16 22:00 6.0 Intake and Output 08/16/16 08/16/16 08/17/16 15:00 23:00 07:00 Intake Total 540.96 ml 1515.61 ml 486.5 ml Output Total 0 ml 1800 ml 400 ml Balance 540.96 ml -284.39 ml 86.5 ml Exam Intubated and sedated Head: normocephalic ENMT: intubated Respiratory: other (course breath sounds bilaterally, no wheezing) Cardiovascular: other (S1 and S2 heard), regular rate and rhythm Gastrointestinal: bowel sounds, non-tender, soft Extremities: edema Results Result Diagram: 08/17/16 0508/17/16 0523 Results 24 hrs Laboratory Tests Test 08/16/16 12:50 08/16/16 17:28 08/16/16 19:58 08/17/16 01:32 Bedside Glucose 99 167 107 102 Test 08/17/16 05:23 08/17/16 05:36 08/17/16 08:29 Anion Gap 15 # Basophils # 0.0 Basophils % 0.0 Blood Morphology Comment Blood Urea Nitrogen 45 #H Calcium Level 7.7 L Carbon Dioxide Level 29 Chloride Level 97 Creatinine 2.40 #H Eosinophils # 0.0 Eosinophils % 0.3 Glucose Level 81 Hematocrit 25.8 #L Hemoglobin 8.6 L Lymphocytes # 1.2 Lymphocytes % 9.3 L Magnesium Level 2.0 Mean Corpuscular Hemoglobin 32.4 Mean Corpuscular Hemoglobin Concent 33.2 Mean Corpuscular Volume 97.4 Mean Platelet Volume 8.0 Monocytes # 0.4 Monocytes % 3.1 Neutrophils # 10.8 H Neutrophils % 87.3 H Nucleated Red Blood Cells # 0.0 Nucleated Red Blood Cells % 0.0 Phosphorus Level 2.5 # Platelet Count 109 #L Potassium Level 2.8 *L Red Blood Count 2.65 #L Red Cell Distribution Width 14.8 H Sodium Level 138 White Blood Count 12.4 #H Bedside Glucose 94 77 Medications Medications Current Medications Fluticasone Propionate (Flonase 0.05% Nasal) 1 spray BID NASAL Last administered on 08/17/16 08:31; Admin Dose 1 SPRAY; Start 07/26/16 at 10:00 Epoetin [place] (Epogen (Esrd)) 10,000 units MoWeFr@17 SC Last administered on 17:13; Admin Dose 10,000 UNITS; Start 07/27/16 at 17:00; Status Future hold Hydralazine HCl 10 mg 10 mg Q6H PRN IV ELEVATED BLOOD PRESSURE Last administered on 08/15/16 15:37; Admin Dose 10 MG; Start 07/29/16 at 13:00 Midazolam HCl/ Dextrose (Versed/D5W) 50 ml @ 1 mls/hr TITRATE IV Last administered on 08/17/16 09:37; Admin Dose 8 MLS/HR; Start 08/01/16 at 23:00 Acetaminophen (Tylenol Tab) 650 mg Q6H PRN GTB PAIN1-3/FEVER ABOVE 100 Last administered on 08/12/16 06:07; Admin Dose 650 MG; Start 08/02/16 at 15:00 Atorvastatin Calcium (Lipitor) 40 mg HS GTB Last administered on 08/16/16 20: 00; Admin Dose 40 MG; Start 08/02/16 at 21:00 Carvedilol (Coreg) 6.25 mg BID GTB ; Start 08/02/16 at 09:00; Status Future Hold Duloxetine HCl (Cymbalta) 90 mg DAILY GTB Last administered on 08/17/16 08:30 ; Admin Dose 90 MG; Start 08/02/16 at 09:00 Guaifenesin (Robitussin Liquid Cup) 100 mg Q4 PRN GTB COUGH; Start 08/02/16 at 09:00 Acetaminophen/ Hydrocodone Bitart ([place] (5/325)) 1 tab Q4 PRN GTB WSOB Last administered on 08/08/16at 09:01; Admin Dose 1 TAB; Start 08/02/16 at 09:00 Lactobacillus Acidoph/Bulgaricus (Floranex) 1 tab DAILY GTB Last administered on 08/17/16 08:30; Admin Dose 1 TAB; Start 08/02/16 at 09:00 Lorazepam (Ativan) 1 mg Q6H PRN GTB ANXIETY Last administered on 08/08/16 21: 02; Admin Dose 1 MG; Start 08/02/16 at 09:00 Multivit/Ca Carb/ B Cmplx/FA/Prenat (Cheryl-Darcie) 1 tab DAILY GTB Last administered on 08/17/16 08:31; Admin Dose 1 TAB; Start 08/02/16 at 09:00 Aspirin (Aspirin) 81 mg DAILY GTB Last administered on 08/17/16 08:30; Admin Dose 81 MG; Start 08/02/16 at 09:00 Lansoprazole 30 mg 30 mg DAILY@06 GTB Last administered on 08/17/16 05:39; Admin Dose 30 MG; Start 08/02/16 at 10:00 Phenylephrine HCl 80 mg/Dextrose 250 ml @ 18.75 mls/ hr TITRATE IV ; Start at 12:30 Norepinephrine/ Dextrose (Levophed/D5W) 500 ml @ 1.87 mls/hr TITRATE IV Last administered on 08/16/16 01:50; Admin Dose 3.75 MLS/HR; Start 08/05/16 at 12: 00 Vancomycin HCl (Vancomycin Oral Syringe) 125 mg Q6 NGT Last administered on 05:39; Admin Dose 125 MG; Start 08/06/16 at 18:00 Sildenafil Citrate (Revatio) 20 mg BID PO Last administered on 08/11/16at 11:56 ; Admin Dose 20 MG; Start 08/08/16 at 21:00; Status Future Hold Lorazepam (Ativan) 0.5 mg Q4 PRN IV ANXIETY Last administered on 08/09/16at 10: 51; Admin Dose 0.5 MG; Start 08/09/16 at 00:00 Methylprednisolone Sodium Succinate (Solu-Medrol) 20 mg DAILY IV Last administered on 08/17/16at 08:31; Admin Dose 20 MG; Start 08/10/16 at 09:00 Insulin Glargine (Lantus) 30 unit QAM SC Last administered on 08/17/16at 08:55 ; Admin Dose 30 UNIT; Start 08/11/16 at 12:00 Miscellaneous Information 1 ea NOTE XX ; Start 08/11/16 at 12:00 Glucose (Glutose) 15 gm Q15M PRN PO DECREASED GLUCOSE; Start 08/11/16 at 12:00 Glucose (Glutose) 22.5 gm Q15M PRN PO DECREASED GLUCOSE; Start 08/11/16 at 12: 00 Dextrose (D50w Syringe) 25 ml Q15M PRN IV DECREASED GLUCOSE Last administered on 08/16/16at 09:32; Admin Dose 25 ML; Start 08/11/16 at 12:00 Dextrose (D50w Syringe) 50 ml Q15M PRN IV DECREASED GLUCOSE; Start 08/11/16 at 12:00 Glucagon (Glucagen) 1 mg Q15M PRN IM DECREASED GLUCOSE; Start 08/11/16 at 12: 00 Glucose 15 gm 15 gm Q15M PRN BUCCAL DECREASED GLUCOSE; Start 08/11/16 at 12:00 Caspofungin/ Sodium Chloride (Cancidas/NS) 250 ml @ 250 mls/hr Q24H IVPB Last administered on 08/16/16at 17:25; Admin Dose 250 MLS/HR; Start 08/12/16 at 14: 00 Insulin Aspart (Novolog Insulin Pen) NOVOLOG *MODERATE* ALGORI... Q4 SC Last administered on 08/16/16at 17:33; Admin Dose 2 UNIT; Start 08/11/16 at 17:00 IV Flush 10 ml 10 ml PRN PRN IV IV PROTOCOL; Start 08/13/16 at 18:00 Cefazolin Sodium (Ancef 1 Gm/50 ml (Pmx)) 50 ml @ 100 mls/hr Q24H IVPB Last administered on 08/16/16at 18:34; Admin Dose 100 MLS/HR; Start 08/14/16 at 17: 00 Collagenase 1 applic 1 applic DAILY@22 TOP Last administered on 08/16/16at 20: 00; Admin Dose 1 APPLIC; Start 08/15/16 at 22:00 Fentanyl 1000 mcg/ Dextrose 100 ml @ 2.6 mls/hr TITRATE IV Last administered on 08/17/16at 01:48; Admin Dose 2.6 MLS/HR; Start 08/15/16 at 19:30 Potassium Chloride (KCl 40 MEQ/250 ML NS) 250 ml @ 62.5 mls/hr Q4H IVPB Last administered on 08/17/16at 07:39; Admin Dose 62.5 MLS/HR; Start 08/17/16 at 07: 00; Stop 08/17/16 at 14:59 Solo Leon DO Aug 17, 2016 11:41
[2016-08-17] MEDS: DEXTROSE 50% 50 ML SYRINGE IV PRN (12:42)
[2016-08-17] MEDS: CASPOFUNGIN 35 MG in SOD CHLORIDE 0.9% 250 ML IVPB SCH (13:57)
--- NOTE | 2016-08-17 14:07 | PN ---
Date/Time of Note Date/Time of Note DATE: 08/17/16 TIME: 14:06 Assessment/Plan VTE Prophylaxis VTE Prophylaxis Intervention: other Lines/Catheters IV Catheter Type (from Nrs): PICC Line Central line still needed: Yes Urinary Cath still in place: No Reason Cath still needed: skin wounds contaminated by urine Assessment/Plan Chief Complaint/Hosp Course 1. Acute respiratory failure - had to be reintubated, probably will need subacute 2. Possible pneumonia- right lower lobe infiltrate- possible aspiration pneumonia per Pulmonary. Sputum grew 08/02 rare jerry albicans - per Dr. Reardon in infectious disease consultation. 3. Early sepsis d/t C diff - recurrent leukocytosis improving and low grade fever resolving. 4. End-stage renal disease hemodialysis dependent. - on HD - per Dr. Bassett in nephrology consultation 5. Diastolic congestive heart failure. Continue to remove fluid was hemodialysis. 6. Partial right internal jugular DVT. Continue Coumadin. Continue daily PT PTT. 7. C diff stool - per ID - on po Vanco - contact isolation 8. RUE cellulitis with axillary/cephalic venous thrombosis - PER id 9. Hyperglycemia- GLYCEMIC Control- stable 10. Toxic metabolic encephalopathy 11. Osteoporosis. 12. Pulmonary hypertension. Continue sildenafil. 13. Coronary artery disease with history of PCI. 14. Depression. Continue Cymbalta 15. History of left hip fracture, treated conservatively. Problems: Subjective 24 Hr Interval Summary Free Text/Dictation Patient is sedated and intubated Exam/Review of Systems Vital Signs Vitals Vital Signs Date Time Temp Pulse Resp B/P Pulse Ox O2 Delivery O2 Flow Rate FiO2 08/17/16 13:00 103 20 124/63 97 Mechanical Ventilator 08/17/16 12:00 98.9 08/17/16 08:00 50 08/15/16 22:00 6.0 Intake and Output 08/16/16 08/16/16 08/17/16 15:00 23:00 07:00 Intake Total 540.96 ml 1515.61 ml 516.5 ml Output Total 0 ml 1800 ml 400 ml Balance 540.96 ml -284.39 ml 116.5 ml Exam Constitutional: well developed Neck: supple Respiratory: diminished breath sounds Cardiovascular: regular rate and rhythm Gastrointestinal: non-tender, soft Extremities: normal pulses Results Result Diagram: 08/17/16 0523 08/17/16 05 Results 24 hrs Laboratory Tests Test 08/16/16 17:28 08/16/16 19:58 08/17/16 01:32 08/17/16 05:23 Bedside Glucose 167 107 102 Anion Gap 15 # Basophils # 0.0 Basophils % 0.0 Blood Morphology Comment Blood Urea Nitrogen 45 #H Calcium Level 7.7 L Carbon Dioxide Level 29 Chloride Level 97 Creatinine 2.40 #H Eosinophils # 0.0 Eosinophils % 0.3 Glucose Level 81 Hematocrit 25.8 #L Hemoglobin 8.6 L Lymphocytes # 1.2 Lymphocytes % 9.3 L Magnesium Level 2.0 Mean Corpuscular Hemoglobin 32.4 Mean Corpuscular Hemoglobin Concent 33.2 Mean Corpuscular Volume 97.4 Mean Platelet Volume 8.0 Monocytes # 0.4 Monocytes % 3.1 Neutrophils # 10.8 H Neutrophils % 87.3 H Nucleated Red Blood Cells # 0.0 Nucleated Red Blood Cells % 0.0 Phosphorus Level 2.5 # Platelet Count 109 #L Potassium Level 2.8 *L Red Blood Count 2.65 #L Red Cell Distribution Width 14.8 H Sodium Level 138 White Blood Count 12.4 #H Test 08/17/16 05:36 08/17/16 08:29 08/17/16 12:40 08/17/16 12:56 Bedside Glucose 94 77 58 L 116 Test 08/17/16 13:44 Bedside Glucose 78 Medications Medications Current Medications Fluticasone Propionate (Flonase 0.05% Nasal) 1 spray BID NASAL Last administered on 08/17/16at 08:31; Admin Dose 1 SPRAY; Start 07/26/16 at 10:00 Epoetin [place] (Epogen (Esrd)) 10,000 units MoWeFr@17 SC Last administered on at 17:13; Admin Dose 10,000 UNITS; Start 07/27/16 at 17:00; Status Future hold Hydralazine HCl 10 mg 10 mg Q6H PRN IV ELEVATED BLOOD PRESSURE Last administered on 08/15/16at 15:37; Admin Dose 10 MG; Start 07/29/16 at 13:00 Midazolam HCl/ Dextrose (Versed/D5W) 50 ml @ 1 mls/hr TITRATE IV Last administered on 08/17/16at 09:37; Admin Dose 8 MLS/HR; Start 08/01/16 at 23:00 Acetaminophen (Tylenol Tab) 650 mg Q6H PRN GTB PAIN1-3/FEVER ABOVE 100 Last administered on 08/12/16 06:07; Admin Dose 650 MG; Start 08/02/16 at 15:00 Atorvastatin Calcium (Lipitor) 40 mg HS GTB Last administered on 08/16/16at 20: 00; Admin Dose 40 MG; Start 08/02/16 at 21:00 Carvedilol (Coreg) 6.25 mg BID GTB ; Start 08/02/16 at 09:00; Status Future Hold Duloxetine HCl (Cymbalta) 90 mg DAILY GTB Last administered on 08/17/16 08:30 ; Admin Dose 90 MG; Start 08/02/16 at 09:00 Guaifenesin (Robitussin Liquid Cup) 100 mg Q4 PRN GTB COUGH; Start 08/02/16 at 09:00 Acetaminophen/ Hydrocodone Bitart ([place] (5/325)) 1 tab Q4 PRN GTB WSOB Last administered on 08/08/16 09:01; Admin Dose 1 TAB; Start 08/02/16 at 09:00 Lactobacillus Acidoph/Bulgaricus (Floranex) 1 tab DAILY GTB Last administered on 08/17/16 08:30; Admin Dose 1 TAB; Start 08/02/16 at 09:00 Lorazepam (Ativan) 1 mg Q6H PRN GTB ANXIETY Last administered on 08/08/16 21: 02; Admin Dose 1 MG; Start 08/02/16 at 09:00 Multivit/Ca Carb/ B Cmplx/FA/Prenat (Cheryl-Darcie) 1 tab DAILY GTB Last administered on 08/17/16 08:31; Admin Dose 1 TAB; Start 08/02/16 at 09:00 Aspirin (Aspirin) 81 mg DAILY GTB Last administered on 08/17/16 08:30; Admin Dose 81 MG; Start 08/02/16 at 09:00 Lansoprazole 30 mg 30 mg DAILY@06 GTB Last administered on 08/17/16 05:39; Admin Dose 30 MG; Start 08/02/16 at 10:00 Phenylephrine HCl 80 mg/Dextrose 250 ml @ 18.75 mls/ hr TITRATE IV ; Start at 12:30 Norepinephrine/ Dextrose (Levophed/D5W) 500 ml @ 1.87 mls/hr TITRATE IV Last administered on 08/16/16at 01:50; Admin Dose 3.75 MLS/HR; Start 08/05/16 at 12: 00 Vancomycin HCl (Vancomycin Oral Syringe) 125 mg Q6 NGT Last administered on at 12:04; Admin Dose 125 MG; Start 08/06/16 at 18:00 Sildenafil Citrate (Revatio) 20 mg BID PO Last administered on 08/11/16at 11:56 ; Admin Dose 20 MG; Start 08/08/16 at 21:00; Status Future Hold Lorazepam (Ativan) 0.5 mg Q4 PRN IV ANXIETY Last administered on 08/09/16at 10: 51; Admin Dose 0.5 MG; Start 08/09/16 at 00:00 Methylprednisolone Sodium Succinate (Solu-Medrol) 20 mg DAILY IV Last administered on 08/17/16at 08:31; Admin Dose 20 MG; Start 08/10/16 at 09:00 Miscellaneous Information 1 ea NOTE XX ; Start 08/11/16 at 12:00 Glucose (Glutose) 15 gm Q15M PRN PO DECREASED GLUCOSE; Start 08/11/16 at 12:00 Glucose (Glutose) 22.5 gm Q15M PRN PO DECREASED GLUCOSE; Start 08/11/16 at 12: 00 Dextrose (D50w Syringe) 25 ml Q15M PRN IV DECREASED GLUCOSE Last administered on 08/17/16at 12:42; Admin Dose 25 ML; Start 08/11/16 at 12:00 Dextrose (D50w Syringe) 50 ml Q15M PRN IV DECREASED GLUCOSE; Start 08/11/16 at 12:00 Glucagon (Glucagen) 1 mg Q15M PRN IM DECREASED GLUCOSE; Start 08/11/16 at 12: 00 Glucose 15 gm 15 gm Q15M PRN BUCCAL DECREASED GLUCOSE; Start 08/11/16 at 12:00 Caspofungin/ Sodium Chloride (Cancidas/NS) 250 ml @ 250 mls/hr Q24H IVPB Last administered on 08/17/16at 13:57; Admin Dose 250 MLS/HR; Start 08/12/16 at 14: 00 Insulin Aspart (Novolog Insulin Pen) NOVOLOG *MODERATE* ALGORI... Q4 SC Last administered on 08/16/16 17:33; Admin Dose 2 UNIT; Start 08/11/16 at 17:00 IV Flush 10 ml 10 ml PRN PRN IV IV PROTOCOL; Start 08/13/16 at 18:00 Cefazolin Sodium (Ancef 1 Gm/50 ml (Pmx)) 50 ml @ 100 mls/hr Q24H IVPB Last administered on 08/16/16at 18:34; Admin Dose 100 MLS/HR; Start 08/14/16 at 17: 00 Collagenase 1 applic 1 applic DAILY@22 TOP Last administered on 08/16/16at 20: 00; Admin Dose 1 APPLIC; Start 08/15/16 at 22:00 Fentanyl 1000 mcg/ Dextrose 100 ml @ 2.6 mls/hr TITRATE IV Last administered on 08/17/16at 01:48; Admin Dose 2.6 MLS/HR; Start 08/15/16 at 19:30 Potassium Chloride (KCl 40 MEQ/250 ML NS) 250 ml @ 62.5 mls/hr Q4H IVPB Last administered on 08/17/16at 12:04; Admin Dose 62.5 MLS/HR; Start 08/17/16 at 07: 00; Stop 08/17/16 at 14:59 Insulin Glargine (Lantus) 25 unit QAM SC ; Start 08/18/16 at 09:00 LESLIE PEDROZA Aug 17, 2016 14:06
[2016-08-17] MEDS: CEFAZOLIN 1 GM/50 ML (PMX) 50 ML IVPB SCH (16:45)
[2016-08-17] MEDS: EPOETIN 10000 UNITS/1 ML INJ (ESRD) SC SCH (16:48)
[2016-08-17] MEDS: ATORVASTATIN 40 MG TAB GTB SCH (21:36)
[2016-08-17] MEDS: COLLAGENASE 30 GM TUBE TOP SCH (21:40)
[2016-08-18] VITALS (44 sets, daily range): BP systolic 95–157; BP diastolic 53–78; PULSE 85–135; RESP 10–22
[2016-08-18] MEDS: VANCOMYCIN HCL 250 MG/5ML POSYG NGT SCH ×4 (00:22→18:30)
[2016-08-18] MEDS: IPRATROPIUM (HFA) 12.9 GM INHALER INH SCH ×4 (01:19→20:21)
[2016-08-18] MEDS: ALBUTEROL HFA 8 GM INHALER INH SCH ×4 (01:19→20:21)
[2016-08-18] MEDS: INSULIN ASPART [NOVOLOG] 3 ML PEN SC SCH ×6 (01:45→21:40)
[2016-08-18 04:58] LABS: BASOPHIL # 0.1 10^3/ul (0.0-0.1); BASOPHILS % 0.5 % (0.0-2.0); EOSINOPHILS % 0.2 % (0.0-7.0); HEMATOCRIT 26.5 % (42.0-52.0); HEMOGLOBIN 8.7 g/dl (14.0-18.0); LYMPHOCYTES # 0.7 10^3/ul (0.8-2.9); LYMPHOCYTES % 5.5 % (15.0-51.0); MEAN CORPUSCULAR HEMOGLOBIN 31.7 pg (29.0-33.0); MEAN CORPUSCULAR HGB CONC 32.7 g/dl (32.0-37.0); MEAN CORPUSCULAR VOLUME 96.8 fl (82.0-101.0); MEAN PLATELET VOLUME 7.5 fl (7.4-10.4); MONOCYTE # 0.4 10^3/ul (0.3-0.9); MONOCYTES % 3.7 % (0.0-11.0); NEUTROPHIL # 10.9 10^3/ul (1.6-7.5); NEUTROPHILS % 90.1 % (39.0-77.0); PLATELET COUNT 103 10^3/UL (140-440); RED BLOOD COUNT 2.73 10^6/ul (4.70-6.10); RED CELL DISTRIBUTION WIDTH 14.6 % (11.5-14.5); UNCORRECTED WBC 12.1 10^3/ul (4.8-10.8); WHITE BLOOD COUNT 12.1 10^3/ul (4.8-10.8)
[2016-08-18 05:02] LABS: CONDITION 1; LH ANALYZER COMMENTS 1
[2016-08-18 05:31] LABS: POTASSIUM 4.2 mmol/L (3.5-5.1)
[2016-08-18 05:33] LABS: CREATININE 3.02 mg/dl (0.61-1.24)
[2016-08-18 05:34] LABS: CALCIUM 7.9 mg/dl (8.4-10.2); PHOSPHORUS 2.6 mg/dl (2.5-4.9)
[2016-08-18] MEDS: LANSOPRAZOLE 30 MG CAP GTB SCH (05:34)
[2016-08-18] MEDS: MIDAZOLAM 50 MG in DEXTROSE 5% 40 ML IV SCH ×3 (05:59→19:32)
[2016-08-18] MEDS: INSULIN GLARGINE [LANtus] 3 ML PEN SC SCH (08:53)
[2016-08-18] MEDS: FLUTICASONE 0.05% 16 GM NAS SPRAY NASAL SCH ×2 (08:55→21:20)
[2016-08-18] MEDS: LACTOBACILLUS CHEW TAB GTB SCH (08:55)
[2016-08-18] MEDS: ASPIRIN 81 MG TAB GTB SCH (08:55)
[2016-08-18] MEDS: DULOXETINE 30 MG CAP DR GTB SCH (08:55)
[2016-08-18] MEDS: METHYLPREDNISOLONE 40 MG INJ IV SCH (08:55)
[2016-08-18] MEDS: MULTIVIT/CA CARB/B CMPLX/FA TAB GTB SCH (08:55)
--- NOTE | 2016-08-18 09:07 | CONS ---
Date/Time of Note Date/Time of Note DATE: 08/18/16 TIME: 09:05 Consult Date/Type/Reason Admit Date/Time Jul 26, 2016 at 01:55 Initial Consult Date 07/29/16 Type of Consultation: Pulm Ordering Provider: GRACIE KATHLEEN Subjective s/p tracheostomy Comfortable No new events. Objective Vital Signs Date Time Temp Pulse Resp B/P Pulse Ox O2 Delivery O2 Flow Rate FiO2 08/18/16 08:00 98.8 93 20 156/66 100 Mechanical Ventilator 08/18/16 05:10 40 08/15/16 22:00 6.0 Intake and Output 08/17/16 08/17/16 08/18/16 15:00 23:00 07:00 Intake Total 1103.5 ml 486.5 ml 544 ml Output Total 0 ml 0 ml Balance 1103.5 ml 486.5 ml 544 ml GENERAL: Elderly gentleman on mechanical ventilation with trach VITAL SIGNS: per chart NECK: Supple. No JVD or lymphadenopathy. CARDIAC EXAM: S1, S2. No added sounds or murmurs. CHEST: Diminished air entry bilaterally ABDOMEN: Soft, nontender. No guarding or rebound. EXTREMITIES: No cyanosis, clubbing or edema. NEUROLOGIC: Generalized weakness. No focal deficits. Results/Medications Result Diagram: 08/18/16 0430 08/18/16 0430 Results 24 hrs Laboratory Tests Test 08/17/16 12:40 08/17/16 12:56 08/17/16 13:44 08/17/16 17:01 Bedside Glucose 58 L 116 78 126 Test 08/17/16 17:02 08/17/16 21:35 08/18/16 01:28 08/18/16 04:30 Potassium Level 4.5 4.2 Bedside Glucose 143 126 Anion Gap 17 H Basophils # 0.1 Basophils % 0.5 Blood Morphology Comment Blood Urea Nitrogen 60 H Calcium Level 7.9 L Carbon Dioxide Level 25 Chloride Level 98 Creatinine 3.02 H Eosinophils # 0.0 Eosinophils % 0.2 Glucose Level 117 Hematocrit 26.5 L Hemoglobin 8.7 L Lymphocytes # 0.7 L Lymphocytes % 5.5 L Mean Corpuscular Hemoglobin 31.7 Mean Corpuscular Hemoglobin Concent 32.7 Mean Corpuscular Volume 96.8 Mean Platelet Volume 7.5 Monocytes # 0.4 Monocytes % 3.7 Neutrophils # 10.9 H Neutrophils % 90.1 H Nucleated Red Blood Cells # 0.0 Nucleated Red Blood Cells % 0.0 Phosphorus Level 2.6 Platelet Count 103 L Red Blood Count 2.73 L Red Cell Distribution Width 14.6 H Sodium Level 136 White Blood Count 12.1 H Test 08/18/16 05:20 08/18/16 08:02 08/18/16 08:52 Bedside Glucose 117 156 144 Medications Current Medications Fluticasone Propionate (Flonase 0.05% Nasal) 1 spray BID NASAL Last administered on 08/18/16at 08:55; Admin Dose 1 SPRAY; Start 07/26/16 at 10:00 Epoetin [place] (Epogen (Esrd)) 10,000 units MoWeFr@17 SC Last administered on at 16:48; Admin Dose 10,000 UNITS; Start 07/27/16 at 17:00; Status Future hold Hydralazine HCl 10 mg 10 mg Q6H PRN IV ELEVATED BLOOD PRESSURE Last administered on 08/15/16at 15:37; Admin Dose 10 MG; Start 07/29/16 at 13:00 Midazolam HCl/ Dextrose (Versed/D5W) 50 ml @ 1 mls/hr TITRATE IV Last administered on 08/18/16at 05:59; Admin Dose 8 MLS/HR; Start 08/01/16 at 23:00 Acetaminophen (Tylenol Tab) 650 mg Q6H PRN GTB PAIN1-3/FEVER ABOVE 100 Last administered on 08/12/16at 06:07; Admin Dose 650 MG; Start 08/02/16 at 15:00 Atorvastatin Calcium (Lipitor) 40 mg HS GTB Last administered on 08/17/16at 21: 36; Admin Dose 40 MG; Start 08/02/16 at 21:00 Carvedilol (Coreg) 6.25 mg BID GTB ; Start 08/02/16 at 09:00; Status Future Hold Duloxetine HCl (Cymbalta) 90 mg DAILY GTB Last administered on 08/18/16at 08:55 ; Admin Dose 90 MG; Start 08/02/16 at 09:00 Guaifenesin (Robitussin Liquid Cup) 100 mg Q4 PRN GTB COUGH; Start 08/02/16 at 09:00 Acetaminophen/ Hydrocodone Bitart ([place] (5/325)) 1 tab Q4 PRN GTB WSOB Last administered on 08/08/16 09:01; Admin Dose 1 TAB; Start 08/02/16 at 09:00 Lactobacillus Acidoph/Bulgaricus (Floranex) 1 tab DAILY GTB Last administered on 08/18/16 08:55; Admin Dose 1 TAB; Start 08/02/16 at 09:00 Lorazepam (Ativan) 1 mg Q6H PRN GTB ANXIETY Last administered on 08/08/16 21: 02; Admin Dose 1 MG; Start 08/02/16 at 09:00 Multivit/Ca Carb/ B Cmplx/FA/Prenat (Cheryl-Darcie) 1 tab DAILY GTB Last administered on 08/18/16 08:55; Admin Dose 1 TAB; Start 08/02/16 at 09:00 Aspirin (Aspirin) 81 mg DAILY GTB Last administered on 08/18/16 08:55; Admin Dose 81 MG; Start 08/02/16 at 09:00 Lansoprazole 30 mg 30 mg DAILY@06 GTB Last administered on 08/18/16 05:34; Admin Dose 30 MG; Start 08/02/16 at 10:00 Phenylephrine HCl 80 mg/Dextrose 250 ml @ 18.75 mls/ hr TITRATE IV ; Start at 12:30 Norepinephrine/ Dextrose (Levophed/D5W) 500 ml @ 1.87 mls/hr TITRATE IV Last administered on 08/16/16 01:50; Admin Dose 3.75 MLS/HR; Start 08/05/16 at 12: 00 Vancomycin HCl (Vancomycin Oral Syringe) 125 mg Q6 NGT Last administered on 05:34; Admin Dose 125 MG; Start 08/06/16 at 18:00 Sildenafil Citrate (Revatio) 20 mg BID PO Last administered on 08/11/16 11:56 ; Admin Dose 20 MG; Start 08/08/16 at 21:00; Status Future Hold Lorazepam (Ativan) 0.5 mg Q4 PRN IV ANXIETY Last administered on 08/09/16 10: 51; Admin Dose 0.5 MG; Start 08/09/16 at 00:00 Methylprednisolone Sodium Succinate (Solu-Medrol) 20 mg DAILY IV Last administered on 12/31/16at 08:55; Admin Dose 20 MG; Start 08/10/16 at 09:00 Miscellaneous Information 1 ea NOTE XX ; Start 08/11/16 at 12:00 Glucose (Glutose) 15 gm Q15M PRN PO DECREASED GLUCOSE; Start 08/11/16 at 12:00 Glucose (Glutose) 22.5 gm Q15M PRN PO DECREASED GLUCOSE; Start 08/11/16 at 12: 00 Dextrose (D50w Syringe) 25 ml Q15M PRN IV DECREASED GLUCOSE Last administered on 08/17/16at 12:42; Admin Dose 25 ML; Start 08/11/16 at 12:00 Dextrose (D50w Syringe) 50 ml Q15M PRN IV DECREASED GLUCOSE; Start 08/11/16 at 12:00 Glucagon (Glucagen) 1 mg Q15M PRN IM DECREASED GLUCOSE; Start 08/11/16 at 12: 00 Glucose 15 gm 15 gm Q15M PRN BUCCAL DECREASED GLUCOSE; Start 08/11/16 at 12:00 Caspofungin/ Sodium Chloride (Cancidas/NS) 250 ml @ 250 mls/hr Q24H IVPB Last administered on 08/17/16at 13:57; Admin Dose 250 MLS/HR; Start 08/12/16 at 14: 00 Insulin Aspart (Novolog Insulin Pen) NOVOLOG *MODERATE* ALGORI... Q4 SC Last administered on 08/18/16at 08:54; Admin Dose 2 UNIT; Start 08/11/16 at 17:00 IV Flush 10 ml 10 ml PRN PRN IV IV PROTOCOL; Start 08/13/16 at 18:00 Cefazolin Sodium (Ancef 1 Gm/50 ml (Pmx)) 50 ml @ 100 mls/hr Q24H IVPB Last administered on 08/17/16at 16:45; Admin Dose 100 MLS/HR; Start 08/14/16 at 17: 00 Collagenase 1 applic 1 applic DAILY@22 TOP Last administered on 08/17/16at 21: 40; Admin Dose 1 APPLIC; Start 08/15/16 at 22:00 Fentanyl/Dextrose (D5W) 100 ml @ 2.6 mls/hr TITRATE IV Last administered on at 15:41; Admin Dose 2.6 MLS/HR; Start 08/15/16 at 19:30 Insulin Glargine (Lantus) 25 unit QAM SC Last administered on 08/18/16at 08:53 ; Admin Dose 25 UNIT; Start 08/18/16 at 09:00 Assessment/Plan Chief Complaint/Hosp Course assessment 1. Hypoxemic resp failure, now with tracheostomy 2. Pulm edema, right lower lobe infiltrate, possible aspiration pneumonia. 3. Encephalopathy toxic metabolic 4. Diastolic dysf ? 5. Persistent leukocytosis likely polymicrobial sepsis 6. End-stage renal failure on hemodialysis Plan 1. Continue Vent, s/p tracheostomy and G-tube placement 2. Hemodialysis per nephrology 3, Aspiration precautions 4. DVT / GI prophylaxis. 5. Continue broad-spectrum antibiotics per ID d/w staff CODE STATUS DNR Transfer to tele consider [facility]. Problems: VALERIE CAMARENA MD, [facility] Aug 18, 2016 09:07
--- NOTE | 2016-08-18 09:30 | PN ---
Date/Time of Note Date/Time of Note DATE: 08/18/16 TIME: 09:29 Assessment/Plan VTE Prophylaxis VTE Prophylaxis Intervention: other Lines/Catheters IV Catheter Type (from Nrs): PICC Line Central line still needed: Yes Reason Cath still needed: skin wounds contaminated by urine Assessment/Plan Chief Complaint/Hosp Course 1. Acute respiratory failure - had to be reintubated, probably will need subacute 2. Possible pneumonia- right lower lobe infiltrate- possible aspiration pneumonia per Pulmonary. Sputum grew 08/02 rare jerry albicans - per Dr. Reardon in infectious disease consultation. 3. Early sepsis d/t C diff - recurrent leukocytosis improving and low grade fever resolving. 4. End-stage renal disease hemodialysis dependent. - on HD - per Dr. Bassett in nephrology consultation 5. Diastolic congestive heart failure. Continue to remove fluid was hemodialysis. 6. Partial right internal jugular DVT. Continue Coumadin. Continue daily PT PTT. 7. C diff stool - per ID - on po Vanco - contact isolation 8. RUE cellulitis with axillary/cephalic venous thrombosis - PER id 9. Hyperglycemia- GLYCEMIC Control- stable 10. Toxic metabolic encephalopathy 11. Osteoporosis. 12. Pulmonary hypertension. Continue sildenafil. 13. Coronary artery disease with history of PCI. 14. Depression. Continue Cymbalta 15. History of left hip fracture, treated conservatively. Problems: Subjective 24 Hr Interval Summary Free Text/Dictation Patient is awake, remain intubated, undergoing hemodialysis Exam/Review of Systems Vital Signs Vitals Vital Signs Date Time Temp Pulse Resp B/P Pulse Ox O2 Delivery O2 Flow Rate FiO2 08/18/16 08:00 98.8 93 20 156/66 100 Mechanical Ventilator 08/18/16 05:10 40 08/15/16 22:00 6.0 Intake and Output 08/17/16 08/17/16 08/18/16 15:00 23:00 07:00 Intake Total 1103.5 ml 486.5 ml 544 ml Output Total 0 ml 0 ml Balance 1103.5 ml 486.5 ml 544 ml Exam Constitutional: well developed Respiratory: diminished breath sounds Cardiovascular: regular rate and rhythm Gastrointestinal: non-tender, soft Extremities: normal pulses Results Result Diagram: 08/18/16 0430 08/18/16 0430 Results 24 hrs Laboratory Tests Test 08/17/16 12:40 08/17/16 12:56 08/17/16 13:44 08/17/16 17:01 Bedside Glucose 58 L 116 78 126 Test 08/17/16 17:02 08/17/16 21:35 08/18/16 01:28 08/18/16 04:30 Potassium Level 4.5 4.2 Bedside Glucose 143 126 Anion Gap 17 H Basophils # 0.1 Basophils % 0.5 Blood Morphology Comment Blood Urea Nitrogen 60 H Calcium Level 7.9 L Carbon Dioxide Level 25 Chloride Level 98 Creatinine 3.02 H Eosinophils # 0.0 Eosinophils % 0.2 Glucose Level 117 Hematocrit 26.5 L Hemoglobin 8.7 L Lymphocytes # 0.7 L Lymphocytes % 5.5 L Mean Corpuscular Hemoglobin 31.7 Mean Corpuscular Hemoglobin Concent 32.7 Mean Corpuscular Volume 96.8 Mean Platelet Volume 7.5 Monocytes # 0.4 Monocytes % 3.7 Neutrophils # 10.9 H Neutrophils % 90.1 H Nucleated Red Blood Cells # 0.0 Nucleated Red Blood Cells % 0.0 Phosphorus Level 2.6 Platelet Count 103 L Red Blood Count 2.73 L Red Cell Distribution Width 14.6 H Sodium Level 136 White Blood Count 12.1 H Test 08/18/16 05:20 08/18/16 08:02 08/18/16 08:52 Bedside Glucose 117 156 144 Medications Medications Current Medications Fluticasone Propionate (Flonase 0.05% Nasal) 1 spray BID NASAL Last administered on 08/18/16at 08:55; Admin Dose 1 SPRAY; Start 07/26/16 at 10:00 Epoetin [place] (Epogen (Esrd)) 10,000 units MoWeFr@17 SC Last administered on at 16:48; Admin Dose 10,000 UNITS; Start 07/27/16 at 17:00; Status Future hold Hydralazine HCl 10 mg 10 mg Q6H PRN IV ELEVATED BLOOD PRESSURE Last administered on 08/15/16at 15:37; Admin Dose 10 MG; Start 07/29/16 at 13:00 Midazolam HCl/ Dextrose (Versed/D5W) 50 ml @ 1 mls/hr TITRATE IV Last administered on 08/18/16at 05:59; Admin Dose 8 MLS/HR; Start 08/01/16 at 23:00 Acetaminophen (Tylenol Tab) 650 mg Q6H PRN GTB PAIN1-3/FEVER ABOVE 100 Last administered on 08/12/16 06:07; Admin Dose 650 MG; Start 08/02/16 at 15:00 Atorvastatin Calcium (Lipitor) 40 mg HS GTB Last administered on 08/17/16 21: 36; Admin Dose 40 MG; Start 08/02/16 at 21:00 Carvedilol (Coreg) 6.25 mg BID GTB ; Start 08/02/16 at 09:00; Status Future Hold Duloxetine HCl (Cymbalta) 90 mg DAILY GTB Last administered on 08/18/16 08:55 ; Admin Dose 90 MG; Start 08/02/16 at 09:00 Guaifenesin (Robitussin Liquid Cup) 100 mg Q4 PRN GTB COUGH; Start 08/02/16 at 09:00 Acetaminophen/ Hydrocodone Bitart ([place] (5/325)) 1 tab Q4 PRN GTB WSOB Last administered on 08/08/16 09:01; Admin Dose 1 TAB; Start 08/02/16 at 09:00 Lactobacillus Acidoph/Bulgaricus (Floranex) 1 tab DAILY GTB Last administered on 08/18/16 08:55; Admin Dose 1 TAB; Start 08/02/16 at 09:00 Lorazepam (Ativan) 1 mg Q6H PRN GTB ANXIETY Last administered on 08/08/16 21: 02; Admin Dose 1 MG; Start 08/02/16 at 09:00 Multivit/Ca Carb/ B Cmplx/FA/Prenat (Cheryl-Darcie) 1 tab DAILY GTB Last administered on 08/18/16 08:55; Admin Dose 1 TAB; Start 08/02/16 at 09:00 Aspirin (Aspirin) 81 mg DAILY GTB Last administered on 08/18/16 08:55; Admin Dose 81 MG; Start 08/02/16 at 09:00 Lansoprazole 30 mg 30 mg DAILY@06 GTB Last administered on 08/18/16 05:34; Admin Dose 30 MG; Start 08/02/16 at 10:00 Phenylephrine HCl 80 mg/Dextrose 250 ml @ 18.75 mls/ hr TITRATE IV ; Start at 12:30 Norepinephrine/ Dextrose (Levophed/D5W) 500 ml @ 1.87 mls/hr TITRATE IV Last administered on 08/16/16at 01:50; Admin Dose 3.75 MLS/HR; Start 08/05/16 at 12: 00 Vancomycin HCl (Vancomycin Oral Syringe) 125 mg Q6 NGT Last administered on at 05:34; Admin Dose 125 MG; Start 08/06/16 at 18:00 Sildenafil Citrate (Revatio) 20 mg BID PO Last administered on 08/11/16at 11:56 ; Admin Dose 20 MG; Start 08/08/16 at 21:00; Status Future Hold Lorazepam (Ativan) 0.5 mg Q4 PRN IV ANXIETY Last administered on 08/09/16at 10: 51; Admin Dose 0.5 MG; Start 08/09/16 at 00:00 Methylprednisolone Sodium Succinate (Solu-Medrol) 20 mg DAILY IV Last administered on 08/18/16at 08:55; Admin Dose 20 MG; Start 08/10/16 at 09:00 Miscellaneous Information 1 ea NOTE XX ; Start 08/11/16 at 12:00 Glucose (Glutose) 15 gm Q15M PRN PO DECREASED GLUCOSE; Start 08/11/16 at 12:00 Glucose (Glutose) 22.5 gm Q15M PRN PO DECREASED GLUCOSE; Start 08/11/16 at 12: 00 Dextrose (D50w Syringe) 25 ml Q15M PRN IV DECREASED GLUCOSE Last administered on 08/17/16at 12:42; Admin Dose 25 ML; Start 08/11/16 at 12:00 Dextrose (D50w Syringe) 50 ml Q15M PRN IV DECREASED GLUCOSE; Start 08/11/16 at 12:00 Glucagon (Glucagen) 1 mg Q15M PRN IM DECREASED GLUCOSE; Start 08/11/16 at 12: 00 Glucose 15 gm 15 gm Q15M PRN BUCCAL DECREASED GLUCOSE; Start 08/11/16 at 12:00 Caspofungin/ Sodium Chloride (Cancidas/NS) 250 ml @ 250 mls/hr Q24H IVPB Last administered on 08/17/16at 13:57; Admin Dose 250 MLS/HR; Start 08/12/16 at 14: 00 Insulin Aspart (Novolog Insulin Pen) NOVOLOG *MODERATE* ALGORI... Q4 SC Last administered on 08/18/16 08:54; Admin Dose 2 UNIT; Start 08/11/16 at 17:00 IV Flush 10 ml 10 ml PRN PRN IV IV PROTOCOL; Start 08/13/16 at 18:00 Cefazolin Sodium (Ancef 1 Gm/50 ml (Pmx)) 50 ml @ 100 mls/hr Q24H IVPB Last administered on 08/17/16at 16:45; Admin Dose 100 MLS/HR; Start 08/14/16 at 17: 00 Collagenase 1 applic 1 applic DAILY@22 TOP Last administered on 08/17/16at 21: 40; Admin Dose 1 APPLIC; Start 08/15/16 at 22:00 Fentanyl/Dextrose (D5W) 100 ml @ 2.6 mls/hr TITRATE IV Last administered on at 15:41; Admin Dose 2.6 MLS/HR; Start 08/15/16 at 19:30 Insulin Glargine (Lantus) 25 unit QAM SC Last administered on 08/18/16 08:53 ; Admin Dose 25 UNIT; Start 08/18/16 at 09:00 LESLIE PEDROZA Aug 18, 2016 09:30
[2016-08-18] MEDS: LORAZEPAM 1 MG TAB GTB PRN (10:45)
[2016-08-18] MEDS: FENTAnyl 1,000 MCG in DEXTROSE 5% 80 ML IV SCH (12:19)
[2016-08-18] MEDS: CASPOFUNGIN 35 MG in SOD CHLORIDE 0.9% 250 ML IVPB SCH (14:25)
--- NOTE | 2016-08-18 15:33 | CONS ---
Date/Time of Note Date/Time of Note DATE: 08/18/16 TIME: 15:31 Assessment/Plan Assessment/Plan Chief Complaint/Hosp Course Patient is a 66y/o man with CHF, CAD, ESRD on HD, Parkinson's, PVD and a recent LUE cellulitis that was complicated by cephalic/axillary vv thrombosis for which he was asked to return to the ED. There he was started on anticoagulation but noted to be in respiratory failure due to volume overload leading to CHF exacerbation. This has been corrected mostly with HD, but it was noted that he continued to have significant symptomatic pulmonary hypertension and he is undergoing w/u for CTEPH. Today he developed a high fever to 103.4. Blood cultures were drawn and the patient was started on vancomycin IV and aztreonam empirically. He denies any new complaints and is complaining only of epigastric pain (present x1 year) and chest pain anteriorly which he states is not new. No loose stools, no myalgia, arthralgia, PATRICK, sore throat, URI sxs. Problems: Additional Assessment/Plan Assessment/Impression: - acute hypoxemic respiratory failure, now VDRF - intubated 07/31 and reintubated 08/15. Awaiting trach. - aspiration PNA (Respiratory cx grew 08/02 rare C. albicans and on 08/10 grew MSSA and C. Albicans) - SIRS with worsening leukocytosis and tachycardia d/t stress response from reintubation. Remains afebrile. - Hypotension d/t sedation after reintubation requiring short term low dose pressor on 08/15-08/16 - Sepsis d/t C diff colitis. 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 - coagulopathy d/t warfarin - PAD with Hx Left BKA - Parkinson's - Stage 2 coccyx decub - PCN allergic - s/p Primaxin (08/05- 08/14), IV vanco (07/29-08/13), aztreonam (07/29-08/05) - DNR Recommendations: - Continue IV cefazolin x 10- 14 days (08/14/16-) - Continue PO vanco via OGT (07/1916-) for duration of systemic abx and then 10 days thereafter - Continue caspofungin (08/12/16-) empirically based on borderline positive beta d glucan- finish 14 days - Trend WBC (downward trending; still on low dose steroid) - Awaiting trach and PEG - Critical care time spent: 30 minutes Consultation Date/Type/Reason Admit Date/Time Jul 26, 2016 at 01:55 Initial Consult Date 07/29/16 Type of Consultation: Pulm Referring Provider: GRACIE KATHLEEN 24 HR Interval Summary Free Text/Dictation HD today able to remove 500 mL without complications. No significant tracheal secretions, remains off pressors, no new positive cultures. Stable vent settings. An old IV was removed from the RUE, there is no phlebitis at the site. Exam/Review of Systems Vital Signs Vitals Vital Signs Date Time Temp Pulse Resp B/P Pulse Ox O2 Delivery O2 Flow Rate FiO2 08/18/16 15:00 91 20 126/65 100 Mechanical Ventilator 08/18/16 12:00 98.7 08/18/16 11:00 40 08/15/16 22:00 6.0 Intake and Output 08/17/16 08/17/16 08/18/16 15:00 23:00 07:00 Intake Total 1103.5 ml 486.5 ml 544 ml Output Total 0 ml 0 ml Balance 1103.5 ml 486.5 ml 544 ml Exam Constitutional: frail, other (orally intubated, chronically debilitated), Head: atraumatic, normocephalic ENMT: mucosa pink and dry. No thrush noted. Neck: supple, no bruits Respiratory: Diminished breath sounds, otherwise clear. No wheezing Cardiovascular: regular rhythm, tachycardic, normal S1 and S2 Gastrointestinal: soft, bowel sounds present, other (NGT with TF; rectal tube intact with no stool noted). Extremities: edema (trace - 1+ right pedal), other (LLE BKA noted; LUE AVF with + bruit/thrill; left middle finger partial amputation noted) Neurological: Sedated; currently not following commands Skin: ecchymosis (scattered BUE), nl turgor, other (RUE PICC c/d/i). Wound ( coccyx stage 2 with dressing c/d/i and perianal area with dermatitis d/t incontinence - See Nurses note for details), Other (RLE with areas of erythema). Results Result Diagram: 08/18/16 0430 08/18/16 0430 Results 24 hrs Laboratory Tests Test 08/17/16 17:01 08/17/16 17:02 08/17/16 21:35 08/18/16 01:28 Bedside Glucose 126 143 126 Potassium Level 4.5 Test 08/18/16 04:30 08/18/16 05:20 08/18/16 08:02 08/18/16 08:52 Anion Gap 17 H Basophils # 0.1 Basophils % 0.5 Blood Morphology Comment Blood Urea Nitrogen 60 H Calcium Level 7.9 L Carbon Dioxide Level 25 Chloride Level 98 Creatinine 3.02 H Eosinophils # 0.0 Eosinophils % 0.2 Glucose Level 117 Hematocrit 26.5 L Hemoglobin 8.7 L Lymphocytes # 0.7 L Lymphocytes % 5.5 L Magnesium Level 2.2 Mean Corpuscular Hemoglobin 31.7 Mean Corpuscular Hemoglobin Concent 32.7 Mean Corpuscular Volume 96.8 Mean Platelet Volume 7.5 Monocytes # 0.4 Monocytes % 3.7 Neutrophils # 10.9 H Neutrophils % 90.1 H Nucleated Red Blood Cells # 0.0 Nucleated Red Blood Cells % 0.0 Phosphorus Level 2.6 Platelet Count 103 L Potassium Level 4.2 Red Blood Count 2.73 L Red Cell Distribution Width 14.6 H Sodium Level 136 White Blood Count 12.1 H Bedside Glucose 117 156 144 Test 08/18/16 12:16 Bedside Glucose 134 Medications Medications Current Medications Fluticasone Propionate (Flonase 0.05% Nasal) 1 spray BID NASAL Last administered on 08/18/16at 08:55; Admin Dose 1 SPRAY; Start 07/26/16 at 10:00 Epoetin [place] (Epogen (Esrd)) 10,000 units MoWeFr@17 SC Last administered on at 16:48; Admin Dose 10,000 UNITS; Start 07/27/16 at 17:00; Status Future hold Hydralazine HCl 10 mg 10 mg Q6H PRN IV ELEVATED BLOOD PRESSURE Last administered on 08/15/16at 15:37; Admin Dose 10 MG; Start 07/29/16 at 13:00 Midazolam HCl/ Dextrose (Versed/D5W) 50 ml @ 1 mls/hr TITRATE IV Last administered on 08/18/16 12:19; Admin Dose 1 MLS/HR; Start 08/01/16 at 23:00 Acetaminophen (Tylenol Tab) 650 mg Q6H PRN GTB PAIN1-3/FEVER ABOVE 100 Last administered on 08/12/16 06:07; Admin Dose 650 MG; Start 08/02/16 at 15:00 Atorvastatin Calcium (Lipitor) 40 mg HS GTB Last administered on 08/17/16at 21: 36; Admin Dose 40 MG; Start 08/02/16 at 21:00 Carvedilol (Coreg) 6.25 mg BID GTB ; Start 08/02/16 at 09:00; Status Future Hold Duloxetine HCl (Cymbalta) 90 mg DAILY GTB Last administered on 08/18/16at 08:55 ; Admin Dose 90 MG; Start 08/02/16 at 09:00 Guaifenesin (Robitussin Liquid Cup) 100 mg Q4 PRN GTB COUGH; Start 08/02/16 at 09:00 Acetaminophen/ Hydrocodone Bitart ([place] (5/325)) 1 tab Q4 PRN GTB WSOB Last administered on 08/08/16at 09:01; Admin Dose 1 TAB; Start 08/02/16 at 09:00 Lactobacillus Acidoph/Bulgaricus (Floranex) 1 tab DAILY GTB Last administered on 08/18/16 08:55; Admin Dose 1 TAB; Start 08/02/16 at 09:00 Lorazepam (Ativan) 1 mg Q6H PRN GTB ANXIETY Last administered on 08/18/16 10: 45; Admin Dose 1 MG; Start 08/02/16 at 09:00 Multivit/Ca Carb/ B Cmplx/FA/Prenat (Cheryl-Darcie) 1 tab DAILY GTB Last administered on 08/18/16 08:55; Admin Dose 1 TAB; Start 08/02/16 at 09:00 Aspirin (Aspirin) 81 mg DAILY GTB Last administered on 08/18/16at 08:55; Admin Dose 81 MG; Start 08/02/16 at 09:00 Lansoprazole 30 mg 30 mg DAILY@06 GTB Last administered on 08/18/16at 05:34; Admin Dose 30 MG; Start 08/02/16 at 10:00 Phenylephrine HCl 80 mg/Dextrose 250 ml @ 18.75 mls/ hr TITRATE IV ; Start at 12:30 Norepinephrine/ Dextrose (Levophed/D5W) 500 ml @ 1.87 mls/hr TITRATE IV Last administered on 08/16/16at 01:50; Admin Dose 3.75 MLS/HR; Start 08/05/16 at 12: 00 Vancomycin HCl (Vancomycin Oral Syringe) 125 mg Q6 NGT Last administered on at 11:46; Admin Dose 125 MG; Start 08/06/16 at 18:00 Sildenafil Citrate (Revatio) 20 mg BID PO Last administered on 08/11/16at 11:56 ; Admin Dose 20 MG; Start 08/08/16 at 21:00; Status Future Hold Lorazepam (Ativan) 0.5 mg Q4 PRN IV ANXIETY Last administered on 08/09/16at 10: 51; Admin Dose 0.5 MG; Start 08/09/16 at 00:00 Methylprednisolone Sodium Succinate (Solu-Medrol) 20 mg DAILY IV Last administered on 08/18/16at 08:55; Admin Dose 20 MG; Start 08/10/16 at 09:00 Miscellaneous Information 1 ea NOTE XX ; Start 08/11/16 at 12:00 Glucose (Glutose) 15 gm Q15M PRN PO DECREASED GLUCOSE; Start 08/11/16 at 12:00 Glucose (Glutose) 22.5 gm Q15M PRN PO DECREASED GLUCOSE; Start 08/11/16 at 12: 00 Dextrose (D50w Syringe) 25 ml Q15M PRN IV DECREASED GLUCOSE Last administered on 08/17/16at 12:42; Admin Dose 25 ML; Start 08/11/16 at 12:00 Dextrose (D50w Syringe) 50 ml Q15M PRN IV DECREASED GLUCOSE; Start 08/11/16 at 12:00 Glucagon (Glucagen) 1 mg Q15M PRN IM DECREASED GLUCOSE; Start 08/11/16 at 12: 00 Glucose 15 gm 15 gm Q15M PRN BUCCAL DECREASED GLUCOSE; Start 08/11/16 at 12:00 Caspofungin/ Sodium Chloride (Cancidas/NS) 250 ml @ 250 mls/hr Q24H IVPB Last administered on 08/18/16at 14:25; Admin Dose 250 MLS/HR; Start 08/12/16 at 14: 00 Insulin Aspart (Novolog Insulin Pen) NOVOLOG *MODERATE* ALGORI... Q4 SC Last administered on 08/18/16at 08:54; Admin Dose 2 UNIT; Start 08/11/16 at 17:00 IV Flush 10 ml 10 ml PRN PRN IV IV PROTOCOL; Start 08/13/16 at 18:00 Cefazolin Sodium (Ancef 1 Gm/50 ml (Pmx)) 50 ml @ 100 mls/hr Q24H IVPB Last administered on 08/17/16at 16:45; Admin Dose 100 MLS/HR; Start 08/14/16 at 17: 00 Collagenase 1 applic 1 applic DAILY@22 TOP Last administered on 08/17/16at 21: 40; Admin Dose 1 APPLIC; Start 08/15/16 at 22:00 Fentanyl/Dextrose (D5W) 100 ml @ 2.6 mls/hr TITRATE IV Last administered on at 12:19; Admin Dose 2.6 MLS/HR; Start 08/15/16 at 19:30 Insulin Glargine (Lantus) 25 unit QAM SC Last administered on 08/18/16at 08:53 ; Admin Dose 25 UNIT; Start 08/18/16 at 09:00 LUKAS LUNA Aug 18, 2016 15:33
[2016-08-18] MEDS: CEFAZOLIN 1 GM/50 ML (PMX) 50 ML IVPB SCH (16:34)
--- NOTE | 2016-08-18 20:09 | CONS ---
Date/Time of Note Date/Time of Note DATE: 08/18/16 TIME: 20:04 Assessment/Plan Assessment/Plan Chief Complaint/Hosp Course 1. ESRD . He had hemodialysis today and 500 cc of fluid were removed . 2. respiratory failure , ventilator dependent 3. DM 4 PAD Problems: Consultation Date/Type/Reason Admit Date/Time Jul 26, 2016 at 01:55 Initial Consult Date 07/29/16 Type of Consultation: renal Referring Provider: GRACIE KATHLEEN 24 HR Interval Summary Free Text/Dictation He is in the ICU , unresponsive , intubated on a ventilator Subjective hx not possible: pt non-verbal Exam/Review of Systems Vital Signs Vitals Vital Signs Date Time Temp Pulse Resp B/P Pulse Ox O2 Delivery O2 Flow Rate FiO2 08/18/16 19:00 94 20 118/61 94 Mechanical Ventilator 08/18/16 17:10 40 08/18/16 16:00 99.0 08/15/16 22:00 6.0 Intake and Output 08/17/16 08/17/16 08/18/16 15:00 23:00 07:00 Intake Total 1103.5 ml 486.5 ml 544 ml Output Total 0 ml 0 ml Balance 1103.5 ml 486.5 ml 544 ml Exam s/p L BKA Constitutional: non-verbal Respiratory: clear to auscultation Cardiovascular: regular rate and rhythm Gastrointestinal: soft Results Result Diagram: 08/18/16 0430 08/18/16 0430 Results 24 hrs Laboratory Tests Test 08/17/16 21:35 08/18/16 01:28 08/18/16 04:30 08/18/16 05:20 Bedside Glucose 143 126 117 Anion Gap 17 H Basophils # 0.1 Basophils % 0.5 Blood Morphology Comment Blood Urea Nitrogen 60 H Calcium Level 7.9 L Carbon Dioxide Level 25 Chloride Level 98 Creatinine 3.02 H Eosinophils # 0.0 Eosinophils % 0.2 Glucose Level 117 Hematocrit 26.5 L Hemoglobin 8.7 L Lymphocytes # 0.7 L Lymphocytes % 5.5 L Magnesium Level 2.2 Mean Corpuscular Hemoglobin 31.7 Mean Corpuscular Hemoglobin Concent 32.7 Mean Corpuscular Volume 96.8 Mean Platelet Volume 7.5 Monocytes # 0.4 Monocytes % 3.7 Neutrophils # 10.9 H Neutrophils % 90.1 H Nucleated Red Blood Cells # 0.0 Nucleated Red Blood Cells % 0.0 Phosphorus Level 2.6 Platelet Count 103 L Potassium Level 4.2 Red Blood Count 2.73 L Red Cell Distribution Width 14.6 H Sodium Level 136 White Blood Count 12.1 H Test 08/18/16 08:02 08/18/16 08:52 08/18/16 12:16 08/18/16 16:33 Bedside Glucose 156 144 134 161 Medications Medications Current Medications Fluticasone Propionate (Flonase 0.05% Nasal) 1 spray BID NASAL Last administered on 08/18/16at 08:55; Admin Dose 1 SPRAY; Start 07/26/16 at 10:00 Epoetin [place] (Epogen (Esrd)) 10,000 units MoWeFr@17 SC Last administered on at 16:48; Admin Dose 10,000 UNITS; Start 07/27/16 at 17:00; Status Future hold Hydralazine HCl 10 mg 10 mg Q6H PRN IV ELEVATED BLOOD PRESSURE Last administered on 08/15/16at 15:37; Admin Dose 10 MG; Start 07/29/16 at 13:00 Midazolam HCl/ Dextrose (Versed/D5W) 50 ml @ 1 mls/hr TITRATE IV Last administered on 08/18/16at 19:32; Admin Dose 8 MLS/HR; Start 08/01/16 at 23:00 Acetaminophen (Tylenol Tab) 650 mg Q6H PRN GTB PAIN1-3/FEVER ABOVE 100 Last administered on 08/12/16at 06:07; Admin Dose 650 MG; Start 08/02/16 at 15:00 Atorvastatin Calcium (Lipitor) 40 mg HS GTB Last administered on 08/17/16at 21: 36; Admin Dose 40 MG; Start 08/02/16 at 21:00 Carvedilol (Coreg) 6.25 mg BID GTB ; Start 08/02/16 at 09:00; Status Future Hold Duloxetine HCl (Cymbalta) 90 mg DAILY GTB Last administered on 08/18/16at 08:55 ; Admin Dose 90 MG; Start 08/02/16 at 09:00 Guaifenesin (Robitussin Liquid Cup) 100 mg Q4 PRN GTB COUGH; Start 08/02/16 at 09:00 Acetaminophen/ Hydrocodone Bitart ([place] (5/325)) 1 tab Q4 PRN GTB WSOB Last administered on 08/08/16 09:01; Admin Dose 1 TAB; Start 08/02/16 at 09:00 Lactobacillus Acidoph/Bulgaricus (Floranex) 1 tab DAILY GTB Last administered on 08/18/16 08:55; Admin Dose 1 TAB; Start 08/02/16 at 09:00 Lorazepam (Ativan) 1 mg Q6H PRN GTB ANXIETY Last administered on 08/18/16 10: 45; Admin Dose 1 MG; Start 08/02/16 at 09:00 Multivit/Ca Carb/ B Cmplx/FA/Prenat (Cheryl-Darcie) 1 tab DAILY GTB Last administered on 08/18/16 08:55; Admin Dose 1 TAB; Start 08/02/16 at 09:00 Aspirin (Aspirin) 81 mg DAILY GTB Last administered on 08/18/16 08:55; Admin Dose 81 MG; Start 08/02/16 at 09:00 Lansoprazole 30 mg 30 mg DAILY@06 GTB Last administered on 08/18/16 05:34; Admin Dose 30 MG; Start 08/02/16 at 10:00 Phenylephrine HCl 80 mg/Dextrose 250 ml @ 18.75 mls/ hr TITRATE IV ; Start at 12:30 Norepinephrine/ Dextrose (Levophed/D5W) 500 ml @ 1.87 mls/hr TITRATE IV Last administered on 08/16/16 01:50; Admin Dose 3.75 MLS/HR; Start 08/05/16 at 12: 00 Vancomycin HCl (Vancomycin Oral Syringe) 125 mg Q6 NGT Last administered on 18:30; Admin Dose 125 MG; Start 08/06/16 at 18:00 Sildenafil Citrate (Revatio) 20 mg BID PO Last administered on 08/11/16 11:56 ; Admin Dose 20 MG; Start 08/08/16 at 21:00; Status Future Hold Lorazepam (Ativan) 0.5 mg Q4 PRN IV ANXIETY Last administered on 08/09/16 10: 51; Admin Dose 0.5 MG; Start 08/09/16 at 00:00 Methylprednisolone Sodium Succinate (Solu-Medrol) 20 mg DAILY IV Last administered on 12/31/16at 08:55; Admin Dose 20 MG; Start 08/10/16 at 09:00 Miscellaneous Information 1 ea NOTE XX ; Start 08/11/16 at 12:00 Glucose (Glutose) 15 gm Q15M PRN PO DECREASED GLUCOSE; Start 08/11/16 at 12:00 Glucose (Glutose) 22.5 gm Q15M PRN PO DECREASED GLUCOSE; Start 08/11/16 at 12: 00 Dextrose (D50w Syringe) 25 ml Q15M PRN IV DECREASED GLUCOSE Last administered on 08/17/16at 12:42; Admin Dose 25 ML; Start 08/11/16 at 12:00 Dextrose (D50w Syringe) 50 ml Q15M PRN IV DECREASED GLUCOSE; Start 08/11/16 at 12:00 Glucagon (Glucagen) 1 mg Q15M PRN IM DECREASED GLUCOSE; Start 08/11/16 at 12: 00 Glucose 15 gm 15 gm Q15M PRN BUCCAL DECREASED GLUCOSE; Start 08/11/16 at 12:00 Caspofungin/ Sodium Chloride (Cancidas/NS) 250 ml @ 250 mls/hr Q24H IVPB Last administered on 08/18/16at 14:25; Admin Dose 250 MLS/HR; Start 08/12/16 at 14: 00 Insulin Aspart (Novolog Insulin Pen) NOVOLOG *MODERATE* ALGORI... Q4 SC Last administered on 08/18/16at 16:36; Admin Dose 2 UNIT; Start 08/11/16 at 17:00 IV Flush 10 ml 10 ml PRN PRN IV IV PROTOCOL; Start 08/13/16 at 18:00 Cefazolin Sodium (Ancef 1 Gm/50 ml (Pmx)) 50 ml @ 100 mls/hr Q24H IVPB Last administered on 08/18/16at 16:34; Admin Dose 100 MLS/HR; Start 08/14/16 at 17: 00 Collagenase 1 applic 1 applic DAILY@22 TOP Last administered on 08/17/16at 21: 40; Admin Dose 1 APPLIC; Start 08/15/16 at 22:00 Fentanyl/Dextrose (D5W) 100 ml @ 2.6 mls/hr TITRATE IV Last administered on at 12:19; Admin Dose 2.6 MLS/HR; Start 08/15/16 at 19:30 Insulin Glargine (Lantus) 25 unit QAM SC Last administered on 08/18/16at 08:53 ; Admin Dose 25 UNIT; Start 08/18/16 at 09:00 MINA MCELROY MD Aug 18, 2016 20:08
[2016-08-18] MEDS: ATORVASTATIN 40 MG TAB GTB SCH (21:20)
[2016-08-18] MEDS: COLLAGENASE 30 GM TUBE TOP SCH (21:20)
--- NOTE | 2016-08-18 22:36 | RADRPT ---
PROCEDURE: XR Chest. CLINICAL INDICATION: New NG placement. TECHNIQUE: Single frontal view of the chest was obtained. COMPARISON: 08/17/2016. FINDINGS: Cardiac silhouette is mildly enlarged. There is mild prominence the upper lobe vasculature. Diffus e mild interstitial edema persists. Study is obtained in expiration. There is bibasilar subsegment al atelectasis. Costophrenic angles are well defined. Endotracheal tube tip remains 3 cm above the sofie. There is a nasogastric tube coiled in the gastric fundus. IMPRESSION: 1. Nasogastric tube coiled in the gastric fundus. 2. Persistent mild vascular congestion and interstitial edema. 3. Expiratory study with bibasilar subsegmental atelectasis. RPTAT: [facility] Physician Shasta Date Time Electronically viewed and signed by Physician Shasta on 08/18/2016 22:36 /
[2016-08-19] VITALS (40 sets, daily range): BP systolic 101–149; BP diastolic 44–72; PULSE 70–102; RESP 16–27
[2016-08-19] MEDS: INSULIN ASPART [NOVOLOG] 3 ML PEN SC SCH ×6 (01:00→21:00)
[2016-08-19] MEDS: VANCOMYCIN HCL 250 MG/5ML POSYG NGT SCH ×4 (02:10→17:33)
[2016-08-19] MEDS: MIDAZOLAM 50 MG in DEXTROSE 5% 40 ML IV SCH ×3 (02:19→16:25)
[2016-08-19] MEDS: LANSOPRAZOLE 30 MG CAP GTB SCH (06:47)
[2016-08-19] MEDS: FENTAnyl 1,000 MCG in DEXTROSE 5% 80 ML IV SCH (06:56)
[2016-08-19] MEDS: DULOXETINE 30 MG CAP DR GTB SCH (08:57)
[2016-08-19] MEDS: ASPIRIN 81 MG TAB GTB SCH (08:58)
[2016-08-19] MEDS: FLUTICASONE 0.05% 16 GM NAS SPRAY NASAL SCH ×2 (08:59→21:20)
[2016-08-19] MEDS: METHYLPREDNISOLONE 40 MG INJ IV SCH (08:59)
[2016-08-19] MEDS: LACTOBACILLUS CHEW TAB GTB SCH (08:59)
[2016-08-19] MEDS: INSULIN GLARGINE [LANtus] 3 ML PEN SC SCH (09:06)
[2016-08-19] MEDS: MULTIVIT/CA CARB/B CMPLX/FA TAB GTB SCH (09:08)
[2016-08-19] MEDS: IPRATROPIUM (HFA) 12.9 GM INHALER INH SCH ×3 (09:15→19:46)
[2016-08-19] MEDS: ALBUTEROL HFA 8 GM INHALER INH SCH ×3 (09:15→19:46)
--- NOTE | 2016-08-19 10:16 | CONS ---
Date/Time of Note Date/Time of Note DATE: 08/19/16 TIME: 10:15 Consult Date/Type/Reason Admit Date/Time Jul 26, 2016 at 01:55 Initial Consult Date 07/29/16 Type of Consultation: pulmonary Ordering Provider: GRACIE KATHLEEN Subjective Remains intubated on mechanical ventilation currently stable Objective Vital Signs Date Time Temp Pulse Resp B/P Pulse Ox O2 Delivery O2 Flow Rate FiO2 08/19/16 08:00 40 08/19/16 08:00 97 08/19/16 07:44 98.8 18 116/59 98 Mechanical Ventilator 08/15/16 22:00 6.0 Intake and Output 08/18/16 08/18/16 08/19/16 15:00 23:00 07:00 Intake Total 2181 ml 434 ml 410 ml Output Total 2000 ml 120 ml 300 ml Balance 181 ml 314 ml 110 ml GENERAL: Elderly gentleman on mechanical ventilation VITAL SIGNS: per chart NECK: Supple. No JVD or lymphadenopathy. CARDIAC EXAM: S1, S2. No added sounds or murmurs. CHEST: Diminished air entry bilaterally ABDOMEN: Soft, nontender. No guarding or rebound. EXTREMITIES: No cyanosis, clubbing or edema. NEUROLOGIC: Generalized weakness. No focal deficits. Results/Medications Result Diagram: 08/18/16 0430 08/18/16 0430 Results 24 hrs Laboratory Tests Test 08/18/16 12:16 08/18/16 16:33 08/18/16 21:23 08/19/16 02:17 Bedside Glucose 134 161 141 102 Test 08/19/16 06:52 08/19/16 09:02 Bedside Glucose 109 109 Medications Current Medications Fluticasone Propionate (Flonase 0.05% Nasal) 1 spray BID NASAL Last administered on 08/19/16t 08:59; Admin Dose 1 SPRAY; Start 07/26/16 at 10:00 Epoetin [place] (Epogen (Esrd)) 10,000 units MoWeFr@17 SC Last administered on at 16:48; Admin Dose 10,000 UNITS; Start 07/27/16 at 17:00; Status Future hold Hydralazine HCl 10 mg 10 mg Q6H PRN IV ELEVATED BLOOD PRESSURE Last administered on 08/15/16at 15:37; Admin Dose 10 MG; Start 07/29/16 at 13:00 Midazolam HCl/ Dextrose (Versed/D5W) 50 ml @ 1 mls/hr TITRATE IV Last administered on 08/19/16 09:22; Admin Dose 8 MLS/HR; Start 08/01/16 at 23:00 Acetaminophen (Tylenol Tab) 650 mg Q6H PRN GTB PAIN1-3/FEVER ABOVE 100 Last administered on 08/12/16at 06:07; Admin Dose 650 MG; Start 08/02/16 at 15:00 Atorvastatin Calcium (Lipitor) 40 mg HS GTB Last administered on 08/18/16at 21: 20; Admin Dose 40 MG; Start 08/02/16 at 21:00 Carvedilol (Coreg) 6.25 mg BID GTB ; Start 08/02/16 at 09:00; Status Future Hold Duloxetine HCl (Cymbalta) 90 mg DAILY GTB Last administered on 08/19/16 08:57; Admin Dose 90 MG; Start 08/02/16 at 09:00 Guaifenesin (Robitussin Liquid Cup) 100 mg Q4 PRN GTB COUGH; Start 08/02/16 at 09:00 Acetaminophen/ Hydrocodone Bitart ([place] (5/325)) 1 tab Q4 PRN GTB WSOB Last administered on 08/08/16at 09:01; Admin Dose 1 TAB; Start 08/02/16 at 09:00 Lactobacillus Acidoph/Bulgaricus (Floranex) 1 tab DAILY GTB Last administered on 08/19/16 08:59; Admin Dose 1 TAB; Start 08/02/16 at 09:00 Lorazepam (Ativan) 1 mg Q6H PRN GTB ANXIETY Last administered on 08/18/16at 10: 45; Admin Dose 1 MG; Start 08/02/16 at 09:00 Multivit/Ca Carb/ B Cmplx/FA/Prenat (Cheryl-Darcie) 1 tab DAILY GTB Last administered on 08/19/16 09:08; Admin Dose 1 TAB; Start 08/02/16 at 09:00 Aspirin (Aspirin) 81 mg DAILY GTB Last administered on 08/19/16 08:58; Admin Dose 81 MG; Start 08/02/16 at 09:00 Lansoprazole 30 mg 30 mg DAILY@06 GTB Last administered on 08/19/16 06:47; Admin Dose 30 MG; Start 08/02/16 at 10:00 Phenylephrine HCl 80 mg/Dextrose 250 ml @ 18.75 mls/ hr TITRATE IV ; Start at 12:30 Norepinephrine/ Dextrose (Levophed/D5W) 500 ml @ 1.87 mls/hr TITRATE IV Last administered on 08/16/16at 01:50; Admin Dose 3.75 MLS/HR; Start 08/05/16 at 12: 00 Vancomycin HCl (Vancomycin Oral Syringe) 125 mg Q6 NGT Last administered on 08/19 06:47; Admin Dose 125 MG; Start 08/06/16 at 18:00 Sildenafil Citrate (Revatio) 20 mg BID PO Last administered on 08/11/16at 11:56 ; Admin Dose 20 MG; Start 08/08/16 at 21:00; Status Future Hold Lorazepam (Ativan) 0.5 mg Q4 PRN IV ANXIETY Last administered on 08/09/16 10: 51; Admin Dose 0.5 MG; Start 08/09/16 at 00:00 Methylprednisolone Sodium Succinate (Solu-Medrol) 20 mg DAILY IV Last administered on 08/19/16 08:59; Admin Dose 20 MG; Start 08/10/16 at 09:00 Miscellaneous Information 1 ea NOTE XX ; Start 08/11/16 at 12:00 Glucose (Glutose) 15 gm Q15M PRN PO DECREASED GLUCOSE; Start 08/11/16 at 12:00 Glucose (Glutose) 22.5 gm Q15M PRN PO DECREASED GLUCOSE; Start 08/11/16 at 12: 00 Dextrose (D50w Syringe) 25 ml Q15M PRN IV DECREASED GLUCOSE Last administered on 08/17/16at 12:42; Admin Dose 25 ML; Start 08/11/16 at 12:00 Dextrose (D50w Syringe) 50 ml Q15M PRN IV DECREASED GLUCOSE; Start 08/11/16 at 12:00 Glucagon (Glucagen) 1 mg Q15M PRN IM DECREASED GLUCOSE; Start 08/11/16 at 12: 00 Glucose 15 gm 15 gm Q15M PRN BUCCAL DECREASED GLUCOSE; Start 08/11/16 at 12:00 Caspofungin/ Sodium Chloride (Cancidas/NS) 250 ml @ 250 mls/hr Q24H IVPB Last administered on 08/18/16at 14:25; Admin Dose 250 MLS/HR; Start 08/12/16 at 14: 00 Insulin Aspart (Novolog Insulin Pen) NOVOLOG *MODERATE* ALGORI... Q4 SC Last administered on 08/18/16at 21:40; Admin Dose 2 UNIT; Start 08/11/16 at 17:00 IV Flush 10 ml 10 ml PRN PRN IV IV PROTOCOL; Start 08/13/16 at 18:00 Cefazolin Sodium (Ancef 1 Gm/50 ml (Pmx)) 50 ml @ 100 mls/hr Q24H IVPB Last administered on 08/18/16at 16:34; Admin Dose 100 MLS/HR; Start 08/14/16 at 17: 00 Collagenase 1 applic 1 applic DAILY@22 TOP Last administered on 08/18/16at 21: 20; Admin Dose 1 APPLIC; Start 08/15/16 at 22:00 Fentanyl/Dextrose (D5W) 100 ml @ 2.6 mls/hr TITRATE IV Last administered on 06:56; Admin Dose 2.6 MLS/HR; Start 08/15/16 at 19:30 Insulin Glargine (Lantus) 25 unit QAM SC Last administered on 08/19/16 09:06; Admin Dose 25 UNIT; Start 08/18/16 at 09:00 Assessment/Plan Chief Complaint/Hosp Course assessment 1. Hypoxemic resp failure, pending tracheostomy 2. Pulm edema, right lower lobe infiltrate, possible aspiration pneumonia. 3. Encephalopathy toxic metabolic 4. Diastolic dysf ? 5. Persistent leukocytosis likely polymicrobial sepsis 6. End-stage renal failure on hemodialysis Plan 1. Continue Vent, pending tracheostomy 2. Hemodialysis per nephrology 3, Aspiration precautions 4. DVT / GI prophylaxis. 5. Continue broad-spectrum antibiotics per ID d/w staff CODE STATUS DNR Transfer to telemetry following tracheostomy Problems: VAL[facility] CAMARENA [facility] Aug 19, 2016 10:16
--- NOTE | 2016-08-19 11:26 | PN ---
Date/Time of Note Date/Time of Note DATE: 08/19/16 TIME: 11:25 Assessment/Plan VTE Prophylaxis VTE Prophylaxis Intervention: other Lines/Catheters IV Catheter Type (from Nrs): PICC Line Central line still needed: Yes Reason Cath still needed: skin wounds contaminated by urine Assessment/Plan Chief Complaint/Hosp Course 1. Acute respiratory failure - had to be reintubated, probably will need subacute, trach 2. Possible pneumonia- right lower lobe infiltrate- possible aspiration pneumonia per Pulmonary. Sputum grew 08/02 rare jerry albicans - per Dr. Reardon in infectious disease consultation. 3. Early sepsis d/t C diff - recurrent leukocytosis improving and low grade fever resolving. 4. End-stage renal disease hemodialysis dependent. - on HD - per Dr. Bassett in nephrology consultation 5. Diastolic congestive heart failure. Continue to remove fluid was hemodialysis. 6. Partial right internal jugular DVT. Continue Coumadin. Continue daily PT PTT. 7. C diff stool - per ID - on po Vanco - contact isolation 8. RUE cellulitis with axillary/cephalic venous thrombosis - PER id 9. Hyperglycemia- GLYCEMIC Control- stable 10. Toxic metabolic encephalopathy 11. Osteoporosis. 12. Pulmonary hypertension. Continue sildenafil. 13. Coronary artery disease with history of PCI. 14. Depression. Continue Cymbalta 15. History of left hip fracture, treated conservatively. Problems: Subjective 24 Hr Interval Summary Free Text/Dictation Patient is sedated and intubated Exam/Review of Systems Vital Signs Vitals Vital Signs Date Time Temp Pulse Resp B/P Pulse Ox O2 Delivery O2 Flow Rate FiO2 08/19/16 10:00 93 20 127/62 Mechanical Ventilator 08/19/16 08:00 40 08/19/16 07:44 98.8 98 08/15/16 22:00 6.0 Intake and Output 08/18/16 08/18/16 08/19/16 15:00 23:00 07:00 Intake Total 2181 ml 434 ml 410 ml Output Total 2000 ml 120 ml 300 ml Balance 181 ml 314 ml 110 ml Exam Constitutional: well developed Head: atraumatic, normocephalic Neck: supple Respiratory: diminished breath sounds Cardiovascular: regular rate and rhythm Gastrointestinal: non-tender, soft Extremities: normal pulses Results Result Diagram: 08/18/16 0430 08/18/16 0430 Results 24 hrs Laboratory Tests Test 08/18/16 12:16 08/18/16 16:33 08/18/16 21:23 08/19/16 02:17 Bedside Glucose 134 161 141 102 Test 08/19/16 06:52 08/19/16 09:02 Bedside Glucose 109 109 Medications Medications Current Medications Fluticasone Propionate (Flonase 0.05% Nasal) 1 spray BID NASAL Last administered on 08/19/16 08:59; Admin Dose 1 SPRAY; Start 07/26/16 at 10:00 Epoetin [place] (Epogen (Esrd)) 10,000 units MoWeFr@17 SC Last administered on 16:48; Admin Dose 10,000 UNITS; Start 07/27/16 at 17:00; Status Future hold Hydralazine HCl 10 mg 10 mg Q6H PRN IV ELEVATED BLOOD PRESSURE Last administered on 08/15/16at 15:37; Admin Dose 10 MG; Start 07/29/16 at 13:00 Midazolam HCl/ Dextrose (Versed/D5W) 50 ml @ 1 mls/hr TITRATE IV Last administered on 08/19/16 09:22; Admin Dose 8 MLS/HR; Start 08/01/16 at 23:00 Acetaminophen (Tylenol Tab) 650 mg Q6H PRN GTB PAIN1-3/FEVER ABOVE 100 Last administered on 08/12/16 06:07; Admin Dose 650 MG; Start 08/02/16 at 15:00 Atorvastatin Calcium (Lipitor) 40 mg HS GTB Last administered on 08/18/16at 21: 20; Admin Dose 40 MG; Start 08/02/16 at 21:00 Carvedilol (Coreg) 6.25 mg BID GTB ; Start 08/02/16 at 09:00; Status Future Hold Duloxetine HCl (Cymbalta) 90 mg DAILY GTB Last administered on 08/19/16 08:57; Admin Dose 90 MG; Start 08/02/16 at 09:00 Guaifenesin (Robitussin Liquid Cup) 100 mg Q4 PRN GTB COUGH; Start 08/02/16 at 09:00 Acetaminophen/ Hydrocodone Bitart ([place] (5/325)) 1 tab Q4 PRN GTB WSOB Last administered on 08/08/16at 09:01; Admin Dose 1 TAB; Start 08/02/16 at 09:00 Lactobacillus Acidoph/Bulgaricus (Floranex) 1 tab DAILY GTB Last administered on 08/19/16 08:59; Admin Dose 1 TAB; Start 08/02/16 at 09:00 Lorazepam (Ativan) 1 mg Q6H PRN GTB ANXIETY Last administered on 08/18/16 10: 45; Admin Dose 1 MG; Start 08/02/16 at 09:00 Multivit/Ca Carb/ B Cmplx/FA/Prenat (Cheryl-Darcie) 1 tab DAILY GTB Last administered on 08/19/16 09:08; Admin Dose 1 TAB; Start 08/02/16 at 09:00 Aspirin (Aspirin) 81 mg DAILY GTB Last administered on 08/19/16 08:58; Admin Dose 81 MG; Start 08/02/16 at 09:00 Lansoprazole 30 mg 30 mg DAILY@06 GTB Last administered on 08/19/16 06:47; Admin Dose 30 MG; Start 08/02/16 at 10:00 Phenylephrine HCl 80 mg/Dextrose 250 ml @ 18.75 mls/ hr TITRATE IV ; Start at 12:30 Norepinephrine/ Dextrose (Levophed/D5W) 500 ml @ 1.87 mls/hr TITRATE IV Last administered on 08/16/16at 01:50; Admin Dose 3.75 MLS/HR; Start 08/05/16 at 12: 00 Vancomycin HCl (Vancomycin Oral Syringe) 125 mg Q6 NGT Last administered on 08/19 06:47; Admin Dose 125 MG; Start 08/06/16 at 18:00 Sildenafil Citrate (Revatio) 20 mg BID PO Last administered on 08/11/16at 11:56 ; Admin Dose 20 MG; Start 08/08/16 at 21:00; Status Future Hold Lorazepam (Ativan) 0.5 mg Q4 PRN IV ANXIETY Last administered on 08/09/16 10: 51; Admin Dose 0.5 MG; Start 08/09/16 at 00:00 Methylprednisolone Sodium Succinate (Solu-Medrol) 20 mg DAILY IV Last administered on 08/19/16 08:59; Admin Dose 20 MG; Start 08/10/16 at 09:00 Miscellaneous Information 1 ea NOTE XX ; Start 08/11/16 at 12:00 Glucose (Glutose) 15 gm Q15M PRN PO DECREASED GLUCOSE; Start 08/11/16 at 12:00 Glucose (Glutose) 22.5 gm Q15M PRN PO DECREASED GLUCOSE; Start 08/11/16 at 12: 00 Dextrose (D50w Syringe) 25 ml Q15M PRN IV DECREASED GLUCOSE Last administered on 08/17/16at 12:42; Admin Dose 25 ML; Start 08/11/16 at 12:00 Dextrose (D50w Syringe) 50 ml Q15M PRN IV DECREASED GLUCOSE; Start 08/11/16 at 12:00 Glucagon (Glucagen) 1 mg Q15M PRN IM DECREASED GLUCOSE; Start 08/11/16 at 12: 00 Glucose 15 gm 15 gm Q15M PRN BUCCAL DECREASED GLUCOSE; Start 08/11/16 at 12:00 Caspofungin/ Sodium Chloride (Cancidas/NS) 250 ml @ 250 mls/hr Q24H IVPB Last administered on 08/18/16at 14:25; Admin Dose 250 MLS/HR; Start 08/12/16 at 14: 00 Insulin Aspart (Novolog Insulin Pen) NOVOLOG *MODERATE* ALGORI... Q4 SC Last administered on 08/18/16at 21:40; Admin Dose 2 UNIT; Start 08/11/16 at 17:00 IV Flush 10 ml 10 ml PRN PRN IV IV PROTOCOL; Start 08/13/16 at 18:00 Cefazolin Sodium (Ancef 1 Gm/50 ml (Pmx)) 50 ml @ 100 mls/hr Q24H IVPB Last administered on 08/18/16at 16:34; Admin Dose 100 MLS/HR; Start 08/14/16 at 17: 00 Collagenase 1 applic 1 applic DAILY@22 TOP Last administered on 08/18/16at 21: 20; Admin Dose 1 APPLIC; Start 08/15/16 at 22:00 Fentanyl/Dextrose (D5W) 100 ml @ 2.6 mls/hr TITRATE IV Last administered on 06:56; Admin Dose 2.6 MLS/HR; Start 08/15/16 at 19:30 Insulin Glargine (Lantus) 25 unit QAM SC Last administered on 08/19/16 09:06; Admin Dose 25 UNIT; Start 08/18/16 at 09:00 PEDROZA,LESLIE Y Aug 19, 2016 11:26
--- NOTE | 2016-08-19 11:44 | CONS ---
Date/Time of Note Date/Time of Note DATE: 08/19/16 TIME: 11:42 Assessment/Plan Assessment/Plan Additional Assessment/Plan Respiratory failure status post intubation Sepsis Minimally elevated troponin Partial right internal jugular DVT Diastolic congestive heart failure End-stage renal disease on hemodialysis CAD with history of PCI Diabetes Peripheral arterial disease with history of amputation Pulmonary hypertension -Patient plan to proceed with tracheostomy and PEG placement. Fluid management via hemodialysis as per our nephrology colleagues. Given labile blood pressure, hydralazine available when necessary. Consultation Date/Type/Reason Admit Date/Time Jul 26, 2016 at 01:55 Type of Consultation: cv Referring Provider: GRACIE KATHLEEN 24 HR Interval Summary Free Text/Dictation Patient remains sedated and intubated Exam/Review of Systems Vital Signs Vitals Vital Signs Date Time Temp Pulse Resp B/P Pulse Ox O2 Delivery O2 Flow Rate FiO2 08/19/16 10:00 93 20 127/62 Mechanical Ventilator 08/19/16 08:00 40 08/19/16 07:44 98.8 98 08/15/16 22:00 6.0 Intake and Output 08/18/16 08/18/16 08/19/16 15:00 23:00 07:00 Intake Total 2181 ml 434 ml 410 ml Output Total 2000 ml 120 ml 300 ml Balance 181 ml 314 ml 110 ml Exam Sedated and intubated Head: normocephalic ENMT: intubated Respiratory: other (course breath sounds bilaterally, no wheezing) Cardiovascular: other (S1-S2 heard), regular rate and rhythm Gastrointestinal: bowel sounds, non-tender, soft Extremities: edema Results Result Diagram: 08/18/16 0430 08/18/16 0430 Results 24 hrs Laboratory Tests Test 08/18/16 12:16 08/18/16 16:33 08/18/16 21:23 08/19/16 02:17 Bedside Glucose 134 161 141 102 Test 08/19/16 06:52 08/19/16 09:02 Bedside Glucose 109 109 Medications Medications Current Medications Fluticasone Propionate (Flonase 0.05% Nasal) 1 spray BID NASAL Last administered on 08/19/16t 08:59; Admin Dose 1 SPRAY; Start 07/26/16 at 10:00 Epoetin [place] (Epogen (Esrd)) 10,000 units MoWeFr@17 SC Last administered on 16:48; Admin Dose 10,000 UNITS; Start 07/27/16 at 17:00; Status Future hold Hydralazine HCl 10 mg 10 mg Q6H PRN IV ELEVATED BLOOD PRESSURE Last administered on 08/15/16 15:37; Admin Dose 10 MG; Start 07/29/16 at 13:00 Midazolam HCl/ Dextrose (Versed/D5W) 50 ml @ 1 mls/hr TITRATE IV Last administered on 08/19/16 09:22; Admin Dose 8 MLS/HR; Start 08/01/16 at 23:00 Acetaminophen (Tylenol Tab) 650 mg Q6H PRN GTB PAIN1-3/FEVER ABOVE 100 Last administered on 08/12/16 06:07; Admin Dose 650 MG; Start 08/02/16 at 15:00 Atorvastatin Calcium (Lipitor) 40 mg HS GTB Last administered on 08/18/16 21: 20; Admin Dose 40 MG; Start 08/02/16 at 21:00 Carvedilol (Coreg) 6.25 mg BID GTB ; Start 08/02/16 at 09:00; Status Future Hold Duloxetine HCl (Cymbalta) 90 mg DAILY GTB Last administered on 08/19/16 08:57; Admin Dose 90 MG; Start 08/02/16 at 09:00 Guaifenesin (Robitussin Liquid Cup) 100 mg Q4 PRN GTB COUGH; Start 08/02/16 at 09:00 Acetaminophen/ Hydrocodone Bitart ([place] (5/325)) 1 tab Q4 PRN GTB WSOB Last administered on 08/08/16 09:01; Admin Dose 1 TAB; Start 08/02/16 at 09:00 Lactobacillus Acidoph/Bulgaricus (Floranex) 1 tab DAILY GTB Last administered on 08/19/16 08:59; Admin Dose 1 TAB; Start 08/02/16 at 09:00 Lorazepam (Ativan) 1 mg Q6H PRN GTB ANXIETY Last administered on 08/18/16 10: 45; Admin Dose 1 MG; Start 08/02/16 at 09:00 Multivit/Ca Carb/ B Cmplx/FA/Prenat (Cheryl-Darcie) 1 tab DAILY GTB Last administered on 08/19/16 09:08; Admin Dose 1 TAB; Start 08/02/16 at 09:00 Aspirin (Aspirin) 81 mg DAILY GTB Last administered on 08/19/16 08:58; Admin Dose 81 MG; Start 08/02/16 at 09:00 Lansoprazole 30 mg 30 mg DAILY@06 GTB Last administered on 08/19/16 06:47; Admin Dose 30 MG; Start 08/02/16 at 10:00 Phenylephrine HCl 80 mg/Dextrose 250 ml @ 18.75 mls/ hr TITRATE IV ; Start at 12:30 Norepinephrine/ Dextrose (Levophed/D5W) 500 ml @ 1.87 mls/hr TITRATE IV Last administered on 08/16/16at 01:50; Admin Dose 3.75 MLS/HR; Start 08/05/16 at 12: 00 Vancomycin HCl (Vancomycin Oral Syringe) 125 mg Q6 NGT Last administered on 08/19 06:47; Admin Dose 125 MG; Start 08/06/16 at 18:00 Sildenafil Citrate (Revatio) 20 mg BID PO Last administered on 08/11/16at 11:56 ; Admin Dose 20 MG; Start 08/08/16 at 21:00; Status Future Hold Lorazepam (Ativan) 0.5 mg Q4 PRN IV ANXIETY Last administered on 08/09/16at 10: 51; Admin Dose 0.5 MG; Start 08/09/16 at 00:00 Methylprednisolone Sodium Succinate (Solu-Medrol) 20 mg DAILY IV Last administered on 08/19/16 08:59; Admin Dose 20 MG; Start 08/10/16 at 09:00 Miscellaneous Information 1 ea NOTE XX ; Start 08/11/16 at 12:00 Glucose (Glutose) 15 gm Q15M PRN PO DECREASED GLUCOSE; Start 08/11/16 at 12:00 Glucose (Glutose) 22.5 gm Q15M PRN PO DECREASED GLUCOSE; Start 08/11/16 at 12: 00 Dextrose (D50w Syringe) 25 ml Q15M PRN IV DECREASED GLUCOSE Last administered on 08/17/16at 12:42; Admin Dose 25 ML; Start 08/11/16 at 12:00 Dextrose (D50w Syringe) 50 ml Q15M PRN IV DECREASED GLUCOSE; Start 08/11/16 at 12:00 Glucagon (Glucagen) 1 mg Q15M PRN IM DECREASED GLUCOSE; Start 08/11/16 at 12: 00 Glucose 15 gm 15 gm Q15M PRN BUCCAL DECREASED GLUCOSE; Start 08/11/16 at 12:00 Caspofungin/ Sodium Chloride (Cancidas/NS) 250 ml @ 250 mls/hr Q24H IVPB Last administered on 08/18/16at 14:25; Admin Dose 250 MLS/HR; Start 08/12/16 at 14: 00 Insulin Aspart (Novolog Insulin Pen) NOVOLOG *MODERATE* ALGORI... Q4 SC Last administered on 08/18/16at 21:40; Admin Dose 2 UNIT; Start 08/11/16 at 17:00 IV Flush 10 ml 10 ml PRN PRN IV IV PROTOCOL; Start 08/13/16 at 18:00 Cefazolin Sodium (Ancef 1 Gm/50 ml (Pmx)) 50 ml @ 100 mls/hr Q24H IVPB Last administered on 08/18/16at 16:34; Admin Dose 100 MLS/HR; Start 08/14/16 at 17: 00 Collagenase 1 applic 1 applic DAILY@22 TOP Last administered on 08/18/16at 21: 20; Admin Dose 1 APPLIC; Start 08/15/16 at 22:00 Fentanyl/Dextrose (D5W) 100 ml @ 2.6 mls/hr TITRATE IV Last administered on 06:56; Admin Dose 2.6 MLS/HR; Start 08/15/16 at 19:30 Insulin Glargine (Lantus) 25 unit QAM SC Last administered on 08/19/16 09:06; Admin Dose 25 UNIT; Start 08/18/16 at 09:00 Solo Leon DO Aug 19, 2016 11:44
[2016-08-19] MEDS: CASPOFUNGIN 35 MG in SOD CHLORIDE 0.9% 250 ML IVPB SCH (15:50)
[2016-08-19] MEDS: CEFAZOLIN 1 GM/50 ML (PMX) 50 ML IVPB SCH (17:14)
--- NOTE | 2016-08-19 18:06 | CONS ---
Date/Time of Note Date/Time of Note DATE: 08/19/16 TIME: 18:04 Assessment/Plan Assessment/Plan Chief Complaint/Hosp Course Patient is a 66y/o man with CHF, CAD, ESRD on HD, Parkinson's, PVD and a recent LUE cellulitis that was complicated by cephalic/axillary vv thrombosis for which he was asked to return to the ED. There he was started on anticoagulation but noted to be in respiratory failure due to volume overload leading to CHF exacerbation. This has been corrected mostly with HD, but it was noted that he continued to have significant symptomatic pulmonary hypertension and he is undergoing w/u for CTEPH. Today he developed a high fever to 103.4. Blood cultures were drawn and the patient was started on vancomycin IV and aztreonam empirically. He denies any new complaints and is complaining only of epigastric pain (present x1 year) and chest pain anteriorly which he states is not new. No loose stools, no myalgia, arthralgia, PATRICK, sore throat, URI sxs. Problems: Additional Assessment/Plan Assessment/Impression: - acute hypoxemic respiratory failure, now VDRF - intubated 07/31 and reintubated 08/15. Awaiting trach. - aspiration PNA (Respiratory cx grew 08/02 rare C. albicans and on 08/10 grew MSSA and C. Albicans) - SIRS with worsening leukocytosis and tachycardia d/t stress response from reintubation. Remains afebrile. - Hypotension d/t sedation after reintubation requiring short term low dose pressor on 08/15-08/16 - Sepsis d/t C diff colitis. 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 - coagulopathy d/t warfarin - PAD with Hx Left BKA - Parkinson's - Stage 2 coccyx decub - PCN allergic - s/p Primaxin (08/05- 08/14), IV vanco (07/29-08/13), aztreonam (07/29-08/05) - DNR Recommendations: - Continue IV cefazolin x 10- 14 days (08/14/16-) - Continue PO vanco via OGT (07/1916-) for duration of systemic abx and then 10 days thereafter - Continue caspofungin (08/12/16-) empirically based on borderline positive beta d glucan- finish 14 days - Trend WBC (downward trending; still on low dose steroid) - Awaiting trach and PEG - Critical care time spent: 30 minutes Consultation Date/Type/Reason Admit Date/Time Jul 26, 2016 at 01:55 Initial Consult Date 07/29/16 Type of Consultation: Infectious Diseases Referring Provider: GRACIE KATHLEEN 24 HR Interval Summary Free Text/Dictation No changes overnight. No new cultures or labs. Stool mild decrease in output but still liquid Exam/Review of Systems Vital Signs Vitals Vital Signs Date Time Temp Pulse Resp B/P Pulse Ox O2 Delivery O2 Flow Rate FiO2 08/19/16 17:10 75 20 100 40 08/19/16 17:00 107/44 Mechanical Ventilator 08/19/16 16:00 97.4 08/15/16 22:00 6.0 Intake and Output 08/18/16 08/18/16 08/19/16 15:00 23:00 07:00 Intake Total 2181 ml 434 ml 453 ml Output Total 2000 ml 120 ml 300 ml Balance 181 ml 314 ml 153 ml Exam Constitutional: frail, other (orally intubated, chronically debilitated), Head: atraumatic, normocephalic ENMT: mucosa pink and dry. No thrush noted. Neck: supple, no bruits Respiratory: Diminished breath sounds, otherwise clear. No wheezing Cardiovascular: regular rhythm, tachycardic, normal S1 and S2 Gastrointestinal: soft, bowel sounds present, other (NGT with TF; rectal tube intact with no stool noted). Extremities: edema (trace - 1+ right pedal), other (LLE BKA noted; LUE AVF with + bruit/thrill; left middle finger partial amputation noted) Neurological: Sedated; currently not following commands Skin: ecchymosis (scattered BUE), nl turgor, other (RUE PICC c/d/i). Wound ( coccyx stage 2 with dressing c/d/i and perianal area with dermatitis d/t incontinence - See Nurses note for details), Other (RLE with areas of erythema). Results Result Diagram: 08/18/16 0430 08/18/16 0430 Results 24 hrs Laboratory Tests Test 08/18/16 21:23 08/19/16 02:17 08/19/16 06:52 08/19/16 09:02 Bedside Glucose 141 102 109 109 Test 08/19/16 12:34 08/19/16 17:13 Bedside Glucose 82 129 Medications Medications Current Medications Fluticasone Propionate (Flonase 0.05% Nasal) 1 spray BID NASAL Last administered on 08/19/16 08:59; Admin Dose 1 SPRAY; Start 07/26/16 at 10:00 Epoetin [place] (Epogen (Esrd)) 10,000 units MoWeFr@17 SC Last administered on at 16:48; Admin Dose 10,000 UNITS; Start 07/27/16 at 17:00; Status Future hold Hydralazine HCl 10 mg 10 mg Q6H PRN IV ELEVATED BLOOD PRESSURE Last administered on 08/15/16at 15:37; Admin Dose 10 MG; Start 07/29/16 at 13:00 Midazolam HCl/ Dextrose (Versed/D5W) 50 ml @ 1 mls/hr TITRATE IV Last administered on 08/19/16 16:25; Admin Dose 8 MLS/HR; Start 08/01/16 at 23:00 Acetaminophen (Tylenol Tab) 650 mg Q6H PRN GTB PAIN1-3/FEVER ABOVE 100 Last administered on 08/12/16 06:07; Admin Dose 650 MG; Start 08/02/16 at 15:00 Atorvastatin Calcium (Lipitor) 40 mg HS GTB Last administered on 08/18/16at 21: 20; Admin Dose 40 MG; Start 08/02/16 at 21:00 Carvedilol (Coreg) 6.25 mg BID GTB ; Start 08/02/16 at 09:00; Status Future Hold Duloxetine HCl (Cymbalta) 90 mg DAILY GTB Last administered on 08/19/16 08:57; Admin Dose 90 MG; Start 08/02/16 at 09:00 Guaifenesin (Robitussin Liquid Cup) 100 mg Q4 PRN GTB COUGH; Start 08/02/16 at 09:00 Acetaminophen/ Hydrocodone Bitart ([place] (5/325)) 1 tab Q4 PRN GTB WSOB Last administered on 08/08/16at 09:01; Admin Dose 1 TAB; Start 08/02/16 at 09:00 Lactobacillus Acidoph/Bulgaricus (Floranex) 1 tab DAILY GTB Last administered on 08/19/16 08:59; Admin Dose 1 TAB; Start 08/02/16 at 09:00 Lorazepam (Ativan) 1 mg Q6H PRN GTB ANXIETY Last administered on 08/18/16at 10: 45; Admin Dose 1 MG; Start 08/02/16 at 09:00 Multivit/Ca Carb/ B Cmplx/FA/Prenat (Cheryl-Darcie) 1 tab DAILY GTB Last administered on 08/19/16 09:08; Admin Dose 1 TAB; Start 08/02/16 at 09:00 Aspirin (Aspirin) 81 mg DAILY GTB Last administered on 08/19/16 08:58; Admin Dose 81 MG; Start 08/02/16 at 09:00 Lansoprazole 30 mg 30 mg DAILY@06 GTB Last administered on 08/19/16 06:47; Admin Dose 30 MG; Start 08/02/16 at 10:00 Phenylephrine HCl 80 mg/Dextrose 250 ml @ 18.75 mls/ hr TITRATE IV ; Start at 12:30 Norepinephrine/ Dextrose (Levophed/D5W) 500 ml @ 1.87 mls/hr TITRATE IV Last administered on 08/16/16at 01:50; Admin Dose 3.75 MLS/HR; Start 08/05/16 at 12: 00 Vancomycin HCl (Vancomycin Oral Syringe) 125 mg Q6 NGT Last administered on 08/19 17:33; Admin Dose 125 MG; Start 08/06/16 at 18:00 Sildenafil Citrate (Revatio) 20 mg BID PO Last administered on 08/11/16at 11:56 ; Admin Dose 20 MG; Start 08/08/16 at 21:00; Status Future Hold Lorazepam (Ativan) 0.5 mg Q4 PRN IV ANXIETY Last administered on 08/09/16at 10: 51; Admin Dose 0.5 MG; Start 08/09/16 at 00:00 Methylprednisolone Sodium Succinate (Solu-Medrol) 20 mg DAILY IV Last administered on 08/19/16 08:59; Admin Dose 20 MG; Start 08/10/16 at 09:00 Miscellaneous Information 1 ea NOTE XX ; Start 08/11/16 at 12:00 Glucose (Glutose) 15 gm Q15M PRN PO DECREASED GLUCOSE; Start 08/11/16 at 12:00 Glucose (Glutose) 22.5 gm Q15M PRN PO DECREASED GLUCOSE; Start 08/11/16 at 12: 00 Dextrose (D50w Syringe) 25 ml Q15M PRN IV DECREASED GLUCOSE Last administered on 08/17/16at 12:42; Admin Dose 25 ML; Start 08/11/16 at 12:00 Dextrose (D50w Syringe) 50 ml Q15M PRN IV DECREASED GLUCOSE; Start 08/11/16 at 12:00 Glucagon (Glucagen) 1 mg Q15M PRN IM DECREASED GLUCOSE; Start 08/11/16 at 12: 00 Glucose 15 gm 15 gm Q15M PRN BUCCAL DECREASED GLUCOSE; Start 08/11/16 at 12:00 Caspofungin/ Sodium Chloride (Cancidas/NS) 250 ml @ 250 mls/hr Q24H IVPB Last administered on 08/19/16 15:50; Admin Dose 250 MLS/HR; Start 08/12/16 at 14:00 Insulin Aspart (Novolog Insulin Pen) NOVOLOG *MODERATE* ALGORI... Q4 SC Last administered on 08/18/16at 21:40; Admin Dose 2 UNIT; Start 08/11/16 at 17:00 IV Flush 10 ml 10 ml PRN PRN IV IV PROTOCOL; Start 08/13/16 at 18:00 Cefazolin Sodium (Ancef 1 Gm/50 ml (Pmx)) 50 ml @ 100 mls/hr Q24H IVPB Last administered on 08/19/16 17:14; Admin Dose 100 MLS/HR; Start 08/14/16 at 17:00 Collagenase 1 applic 1 applic DAILY@22 TOP Last administered on 08/18/16at 21: 20; Admin Dose 1 APPLIC; Start 08/15/16 at 22:00 Fentanyl/Dextrose (D5W) 100 ml @ 2.6 mls/hr TITRATE IV Last administered on 06:56; Admin Dose 2.6 MLS/HR; Start 08/15/16 at 19:30 Insulin Glargine (Lantus) 25 unit QAM SC Last administered on 08/19/16 09:06; Admin Dose 25 UNIT; Start 08/18/16 at 09:00 LUKAS LUNA Aug 19, 2016 18:06
[2016-08-19] MEDS: ATORVASTATIN 40 MG TAB GTB SCH (21:20)
[2016-08-19] MEDS: COLLAGENASE 30 GM TUBE TOP SCH (21:21)
--- NOTE | 2016-08-19 21:22 | CONS ---
Date/Time of Note Date/Time of Note DATE: 08/19/16 TIME: 21:18 Assessment/Plan Assessment/Plan Chief Complaint/Hosp Course 1. ESRD . He had hemodialysis yesterday and 500 cc of fluid were removed .Next dialysis in 2 days , labs in am 2. respiratory failure , ventilator dependent 3. DM 4 PAD 5.Encephalopathy Problems: Consultation Date/Type/Reason Admit Date/Time Jul 26, 2016 at 01:55 Initial Consult Date 07/29/16 Type of Consultation: Infectious Diseases Referring Provider: GRACIE KATHLEEN 24 HR Interval Summary Free Text/Dictation He is in the ICU , unresponsive on the ventilator . Subjective hx not possible: pt non-verbal Exam/Review of Systems Vital Signs Vitals Vital Signs Date Time Temp Pulse Resp B/P Pulse Ox O2 Delivery O2 Flow Rate FiO2 08/19/16 19:00 75 20 140/57 100 Mechanical Ventilator 08/19/16 17:10 40 08/19/16 16:00 97.4 08/15/16 22:00 6.0 Intake and Output 08/18/16 08/18/16 08/19/16 15:00 23:00 07:00 Intake Total 2181 ml 434 ml 453 ml Output Total 2000 ml 120 ml 300 ml Balance 181 ml 314 ml 153 ml Exam S/P L BKA Respiratory: clear to auscultation, diminished breath sounds Cardiovascular: regular rate and rhythm Gastrointestinal: soft Results Result Diagram: 08/18/16 0430 08/18/16 0430 Results 24 hrs Laboratory Tests Test 08/18/16 21:23 08/19/16 02:17 08/19/16 06:52 08/19/16 09:02 Bedside Glucose 141 102 109 109 Test 08/19/16 12:34 08/19/16 17:13 Bedside Glucose 82 129 Medications Medications Current Medications Fluticasone Propionate (Flonase 0.05% Nasal) 1 spray BID NASAL Last administered on 08/19/16t 08:59; Admin Dose 1 SPRAY; Start 07/26/16 at 10:00 Epoetin [place] (Epogen (Esrd)) 10,000 units MoWeFr@17 SC Last administered on at 16:48; Admin Dose 10,000 UNITS; Start 07/27/16 at 17:00; Status Future hold Hydralazine HCl 10 mg 10 mg Q6H PRN IV ELEVATED BLOOD PRESSURE Last administered on 08/15/16 15:37; Admin Dose 10 MG; Start 07/29/16 at 13:00 Midazolam HCl/ Dextrose (Versed/D5W) 50 ml @ 1 mls/hr TITRATE IV Last administered on 08/19/16 16:25; Admin Dose 8 MLS/HR; Start 08/01/16 at 23:00 Acetaminophen (Tylenol Tab) 650 mg Q6H PRN GTB PAIN1-3/FEVER ABOVE 100 Last administered on 08/12/16 06:07; Admin Dose 650 MG; Start 08/02/16 at 15:00 Atorvastatin Calcium (Lipitor) 40 mg HS GTB Last administered on 08/18/16 21: 20; Admin Dose 40 MG; Start 08/02/16 at 21:00 Carvedilol (Coreg) 6.25 mg BID GTB ; Start 08/02/16 at 09:00; Status Future Hold Duloxetine HCl (Cymbalta) 90 mg DAILY GTB Last administered on 08/19/16 08:57; Admin Dose 90 MG; Start 08/02/16 at 09:00 Guaifenesin (Robitussin Liquid Cup) 100 mg Q4 PRN GTB COUGH; Start 08/02/16 at 09:00 Acetaminophen/ Hydrocodone Bitart ([place] (5/325)) 1 tab Q4 PRN GTB WSOB Last administered on 08/08/16 09:01; Admin Dose 1 TAB; Start 08/02/16 at 09:00 Lactobacillus Acidoph/Bulgaricus (Floranex) 1 tab DAILY GTB Last administered on 08/19/16 08:59; Admin Dose 1 TAB; Start 08/02/16 at 09:00 Lorazepam (Ativan) 1 mg Q6H PRN GTB ANXIETY Last administered on 08/18/16 10: 45; Admin Dose 1 MG; Start 08/02/16 at 09:00 Multivit/Ca Carb/ B Cmplx/FA/Prenat (Cheryl-Darcie) 1 tab DAILY GTB Last administered on 08/19/16 09:08; Admin Dose 1 TAB; Start 08/02/16 at 09:00 Aspirin (Aspirin) 81 mg DAILY GTB Last administered on 08/19/16 08:58; Admin Dose 81 MG; Start 08/02/16 at 09:00 Lansoprazole 30 mg 30 mg DAILY@06 GTB Last administered on 08/19/16 06:47; Admin Dose 30 MG; Start 08/02/16 at 10:00 Phenylephrine HCl 80 mg/Dextrose 250 ml @ 18.75 mls/ hr TITRATE IV ; Start at 12:30 Norepinephrine/ Dextrose (Levophed/D5W) 500 ml @ 1.87 mls/hr TITRATE IV Last administered on 08/16/16at 01:50; Admin Dose 3.75 MLS/HR; Start 08/05/16 at 12: 00 Vancomycin HCl (Vancomycin Oral Syringe) 125 mg Q6 NGT Last administered on 08/19 17:33; Admin Dose 125 MG; Start 08/06/16 at 18:00 Sildenafil Citrate (Revatio) 20 mg BID PO Last administered on 08/11/16at 11:56 ; Admin Dose 20 MG; Start 08/08/16 at 21:00; Status Future Hold Lorazepam (Ativan) 0.5 mg Q4 PRN IV ANXIETY Last administered on 08/09/16at 10: 51; Admin Dose 0.5 MG; Start 08/09/16 at 00:00 Methylprednisolone Sodium Succinate (Solu-Medrol) 20 mg DAILY IV Last administered on 08/19/16 08:59; Admin Dose 20 MG; Start 08/10/16 at 09:00 Miscellaneous Information 1 ea NOTE XX ; Start 08/11/16 at 12:00 Glucose (Glutose) 15 gm Q15M PRN PO DECREASED GLUCOSE; Start 08/11/16 at 12:00 Glucose (Glutose) 22.5 gm Q15M PRN PO DECREASED GLUCOSE; Start 08/11/16 at 12: 00 Dextrose (D50w Syringe) 25 ml Q15M PRN IV DECREASED GLUCOSE Last administered on 08/17/16at 12:42; Admin Dose 25 ML; Start 08/11/16 at 12:00 Dextrose (D50w Syringe) 50 ml Q15M PRN IV DECREASED GLUCOSE; Start 08/11/16 at 12:00 Glucagon (Glucagen) 1 mg Q15M PRN IM DECREASED GLUCOSE; Start 08/11/16 at 12: 00 Glucose 15 gm 15 gm Q15M PRN BUCCAL DECREASED GLUCOSE; Start 08/11/16 at 12:00 Caspofungin/ Sodium Chloride (Cancidas/NS) 250 ml @ 250 mls/hr Q24H IVPB Last administered on 08/19/16 15:50; Admin Dose 250 MLS/HR; Start 08/12/16 at 14:00 Insulin Aspart (Novolog Insulin Pen) NOVOLOG *MODERATE* ALGORI... Q4 SC Last administered on 08/18/16at 21:40; Admin Dose 2 UNIT; Start 08/11/16 at 17:00 IV Flush 10 ml 10 ml PRN PRN IV IV PROTOCOL; Start 08/13/16 at 18:00 Cefazolin Sodium (Ancef 1 Gm/50 ml (Pmx)) 50 ml @ 100 mls/hr Q24H IVPB Last administered on 08/19/16 17:14; Admin Dose 100 MLS/HR; Start 08/14/16 at 17:00 Collagenase 1 applic 1 applic DAILY@22 TOP Last administered on 08/18/16at 21: 20; Admin Dose 1 APPLIC; Start 08/15/16 at 22:00 Fentanyl/Dextrose (D5W) 100 ml @ 2.6 mls/hr TITRATE IV Last administered on 06:56; Admin Dose 2.6 MLS/HR; Start 08/15/16 at 19:30 Insulin Glargine (Lantus) 25 unit QAM SC Last administered on 08/19/16 09:06; Admin Dose 25 UNIT; Start 08/18/16 at 09:00 MINA MCELROY MD Aug 19, 2016 21:22
[2016-08-20] VITALS (36 sets, daily range): BP systolic 97–154; BP diastolic 54–74; PULSE 67–96; RESP 16–24
[2016-08-20] MEDS: VANCOMYCIN HCL 250 MG/5ML POSYG NGT SCH ×4 (00:47→17:13)
[2016-08-20] MEDS: MIDAZOLAM 50 MG in DEXTROSE 5% 40 ML IV SCH ×3 (00:53→17:26)
[2016-08-20] MEDS: INSULIN ASPART [NOVOLOG] 3 ML PEN SC SCH ×6 (01:04→21:14)
[2016-08-20] MEDS: ALBUTEROL HFA 8 GM INHALER INH SCH ×4 (01:53→19:20)
[2016-08-20] MEDS: IPRATROPIUM (HFA) 12.9 GM INHALER INH SCH ×4 (01:53→19:20)
[2016-08-20] MEDS: FENTAnyl 1,000 MCG in DEXTROSE 5% 80 ML IV SCH (04:46)
[2016-08-20 05:22] LABS: BASOPHILS % 0.4 % (0.0-2.0); EOSINOPHILS % 0.2 % (0.0-7.0); HEMATOCRIT 25.3 % (42.0-52.0); HEMOGLOBIN 8.3 g/dl (14.0-18.0); LYMPHOCYTES # 0.5 10^3/ul (0.8-2.9); LYMPHOCYTES % 6.1 % (15.0-51.0); MEAN CORPUSCULAR HGB CONC 32.7 g/dl (32.0-37.0); MEAN CORPUSCULAR VOLUME 97.7 fl (82.0-101.0); MEAN PLATELET VOLUME 7.8 fl (7.4-10.4); MONOCYTE # 0.3 10^3/ul (0.3-0.9); MONOCYTES % 3.3 % (0.0-11.0); NEUTROPHIL # 7.5 10^3/ul (1.6-7.5); PLATELET COUNT 84 10^3/UL (140-440); RED BLOOD COUNT 2.58 10^6/ul (4.70-6.10); RED CELL DISTRIBUTION WIDTH 15.2 % (11.5-14.5); UNCORRECTED WBC 8.4 10^3/ul (4.8-10.8); WHITE BLOOD COUNT 8.4 10^3/ul (4.8-10.8)
[2016-08-20] MEDS: LANSOPRAZOLE 30 MG CAP GTB SCH (05:23)
[2016-08-20 05:40] LABS: CONDITION 1; LH ANALYZER COMMENTS 1
[2016-08-20 05:43] LABS: ALBUMIN 2.6 g/dl (3.3-4.9); POTASSIUM 4.1 mmol/L (3.5-5.1)
[2016-08-20 05:45] LABS: CREATININE 2.84 mg/dl (0.61-1.24)
[2016-08-20 05:46] LABS: BILIRUBIN,INDIRECT 0.2 mg/dl (0-1.1); BILIRUBIN,TOTAL 0.2 mg/dl (0.2-1.3); CALCIUM 7.7 mg/dl (8.4-10.2); TOTAL PROTEIN 5.2 g/dl (6.1-8.1)
[2016-08-20] MEDS: INSULIN GLARGINE [LANtus] 3 ML PEN SC SCH (09:23)
[2016-08-20] MEDS: METHYLPREDNISOLONE 40 MG INJ IV SCH (09:23)
[2016-08-20] MEDS: ASPIRIN 81 MG TAB GTB SCH (09:23)
[2016-08-20] MEDS: MULTIVIT/CA CARB/B CMPLX/FA TAB GTB SCH (09:24)
[2016-08-20] MEDS: DULOXETINE 30 MG CAP DR GTB SCH (09:24)
[2016-08-20] MEDS: FLUTICASONE 0.05% 16 GM NAS SPRAY NASAL SCH ×2 (09:24→21:04)
[2016-08-20] MEDS: LACTOBACILLUS CHEW TAB GTB SCH (09:24)
--- NOTE | 2016-08-20 10:25 | CONS ---
DATE OF ADMISSION: 07/26/2016 DATE OF CONSULTATION: TYPE OF CONSULTATION: Nephrology. HISTORY OF PRESENT ILLNESS: The patient remains intubated in the ICU, sedated with fentanyl. He re chika hemodynamically stable. Apparently, plans are to proceed with a trach and PEG at some point i n the near future. PHYSICAL EXAMINATION: VITAL SIGNS: He is afebrile. Blood pressure is 118/60, heart rate is 78 and regular, respirations are 12 and unlabored, O2 saturation is 100% on 40% FIO2. SKIN: No new rashes. LUNGS: Clear. HEART: S1, S2, regular rate and rhythm. ABDOMEN: Soft. EXTREMITIES: He has a well-functioning left upper extremity AV fistula. LABORATORY DATA: White count 8.4, hemoglobin 8.3, hematocrit 25.3, platelet count 84,000. INR is 1 .73. On 08/16/2016, potassium was 4.1. LFTs are normal. PROBLEM LIST: 1. End-stage renal disease, for planned hemodialysis tomorrow. 2. Congestive heart failure since resolved. 3. Respiratory failure, to ultimately get a trach. 4. Diabetes mellitus, well controlled. RECOMMENDATIONS: Dialysis tomorrow. Dictated By: MOSES GUAJARDO MD, MM/OLESYA Conf#: [id number] DID#: [id number]
--- NOTE | 2016-08-20 10:44 | CONS ---
Date/Time of Note Date/Time of Note DATE: 08/20/16 TIME: 10:43 Consult Date/Type/Reason Admit Date/Time Jul 26, 2016 at 01:55 Initial Consult Date 07/29/16 Type of Consultation: Pulm Ordering Provider: GRACIE KATHLEEN Subjective Intubated, sedated Comfortable. Objective Vital Signs Date Time Temp Pulse Resp B/P Pulse Ox O2 Delivery O2 Flow Rate FiO2 08/20/16 09:00 92 18 106/54 100 Mechanical Ventilator 08/20/16 08:00 98.1 08/20/16 05:17 40 Intake and Output 08/19/16 08/19/16 08/20/16 15:00 23:00 07:00 Intake Total 560 ml 446 ml 454 ml Output Total 10 ml 30 ml Balance 560 ml 436 ml 424 ml GENERAL: Elderly gentleman on mechanical ventilation VITAL SIGNS: per chart NECK: Supple. No JVD or lymphadenopathy. CARDIAC EXAM: S1, S2. No added sounds or murmurs. CHEST: Diminished air entry bilaterally ABDOMEN: Soft, nontender. No guarding or rebound. EXTREMITIES: No cyanosis, clubbing or edema. NEUROLOGIC: Generalized weakness. No focal deficits. Results/Medications Result Diagram: 08/20/16 0412 08/20/16 0412 Results 24 hrs Laboratory Tests Test 08/19/16 12:34 08/19/16 17:13 08/19/16 21:24 08/20/16 00:59 Bedside Glucose 82 129 133 146 Test 08/20/16 04:12 08/20/16 05:27 08/20/16 09:19 Alanine Aminotransferase (ALT/SGPT) 31 Albumin 2.6 L Albumin/Globulin Ratio 1.00 Alkaline Phosphatase 121 Anion Gap 14 Aspartate Amino Transf (AST/SGOT) 41 Basophils # 0.0 Basophils % 0.4 Blood Morphology Comment Blood Urea Nitrogen 56 H Calcium Level 7.7 L Carbon Dioxide Level 26 Chloride Level 95 L Creatinine 2.84 H Direct Bilirubin 0.00 Eosinophils # 0.0 Eosinophils % 0.2 Globulin 2.60 Glucose Level 138 Hematocrit 25.3 L Hemoglobin 8.3 L Indirect Bilirubin 0.2 Lymphocytes # 0.5 L Lymphocytes % 6.1 L Mean Corpuscular Hemoglobin 32.0 Mean Corpuscular Hemoglobin Concent 32.7 Mean Corpuscular Volume 97.7 Mean Platelet Volume 7.8 Monocytes # 0.3 Monocytes % 3.3 Neutrophils # 7.5 Neutrophils % 90.0 H Nucleated Red Blood Cells # 0.0 Nucleated Red Blood Cells % 0.0 Platelet Count 84 L Potassium Level 4.1 Red Blood Count 2.58 L Red Cell Distribution Width 15.2 H Sodium Level 131 L Total Bilirubin 0.2 Total Protein 5.2 L White Blood Count 8.4 # Bedside Glucose 163 166 Medications Current Medications Fluticasone Propionate (Flonase 0.05% Nasal) 1 spray BID NASAL Last administered on 08/20/16 09:24; Admin Dose 1 SPRAY; Start 07/26/16 at 10:00 Epoetin [place] (Epogen (Esrd)) 10,000 units MoWeFr@17 SC Last administered on at 16:48; Admin Dose 10,000 UNITS; Start 07/27/16 at 17:00; Status Future hold Hydralazine HCl 10 mg 10 mg Q6H PRN IV ELEVATED BLOOD PRESSURE Last administered on 08/15/16at 15:37; Admin Dose 10 MG; Start 07/29/16 at 13:00 Midazolam HCl/ Dextrose (Versed/D5W) 50 ml @ 1 mls/hr TITRATE IV Last administered on 08/20/16 09:43; Admin Dose 8 MLS/HR; Start 08/01/16 at 23:00 Acetaminophen (Tylenol Tab) 650 mg Q6H PRN GTB PAIN1-3/FEVER ABOVE 100 Last administered on 08/12/16 06:07; Admin Dose 650 MG; Start 08/02/16 at 15:00 Atorvastatin Calcium (Lipitor) 40 mg HS GTB Last administered on 08/19/16 21:20 ; Admin Dose 40 MG; Start 08/02/16 at 21:00 Carvedilol (Coreg) 6.25 mg BID GTB ; Start 08/02/16 at 09:00; Status Future Hold Duloxetine HCl (Cymbalta) 90 mg DAILY GTB Last administered on 08/20/16 09:24; Admin Dose 90 MG; Start 08/02/16 at 09:00 Guaifenesin (Robitussin Liquid Cup) 100 mg Q4 PRN GTB COUGH; Start 08/02/16 at 09:00 Acetaminophen/ Hydrocodone Bitart ([place] (5/325)) 1 tab Q4 PRN GTB WSOB Last administered on 08/08/16 09:01; Admin Dose 1 TAB; Start 08/02/16 at 09:00 Lactobacillus Acidoph/Bulgaricus (Floranex) 1 tab DAILY GTB Last administered on 08/20/16 09:24; Admin Dose 1 TAB; Start 08/02/16 at 09:00 Lorazepam (Ativan) 1 mg Q6H PRN GTB ANXIETY Last administered on 08/18/16 10: 45; Admin Dose 1 MG; Start 08/02/16 at 09:00 Multivit/Ca Carb/ B Cmplx/FA/Prenat (Cheryl-Darcie) 1 tab DAILY GTB Last administered on 08/20/16 09:24; Admin Dose 1 TAB; Start 08/02/16 at 09:00 Aspirin (Aspirin) 81 mg DAILY GTB Last administered on 08/20/16 09:23; Admin Dose 81 MG; Start 08/02/16 at 09:00 Lansoprazole 30 mg 30 mg DAILY@06 GTB Last administered on 08/20/16 05:23; Admin Dose 30 MG; Start 08/02/16 at 10:00 Phenylephrine HCl 80 mg/Dextrose 250 ml @ 18.75 mls/ hr TITRATE IV ; Start at 12:30 Norepinephrine/ Dextrose (Levophed/D5W) 500 ml @ 1.87 mls/hr TITRATE IV Last administered on 08/16/16 01:50; Admin Dose 3.75 MLS/HR; Start 08/05/16 at 12: 00 Vancomycin HCl (Vancomycin Oral Syringe) 125 mg Q6 NGT Last administered on 08/20 05:23; Admin Dose 125 MG; Start 08/06/16 at 18:00 Sildenafil Citrate (Revatio) 20 mg BID PO Last administered on 08/11/16 11:56 ; Admin Dose 20 MG; Start 08/08/16 at 21:00; Status Future Hold Lorazepam (Ativan) 0.5 mg Q4 PRN IV ANXIETY Last administered on 08/09/16 10: 51; Admin Dose 0.5 MG; Start 08/09/16 at 00:00 Methylprednisolone Sodium Succinate (Solu-Medrol) 20 mg DAILY IV Last administered on 08/20/16 09:23; Admin Dose 20 MG; Start 08/10/16 at 09:00 Miscellaneous Information 1 ea NOTE XX ; Start 08/11/16 at 12:00 Glucose (Glutose) 15 gm Q15M PRN PO DECREASED GLUCOSE; Start 08/11/16 at 12:00 Glucose (Glutose) 22.5 gm Q15M PRN PO DECREASED GLUCOSE; Start 08/11/16 at 12: 00 Dextrose (D50w Syringe) 25 ml Q15M PRN IV DECREASED GLUCOSE Last administered on 08/17/16at 12:42; Admin Dose 25 ML; Start 08/11/16 at 12:00 Dextrose (D50w Syringe) 50 ml Q15M PRN IV DECREASED GLUCOSE; Start 08/11/16 at 12:00 Glucagon (Glucagen) 1 mg Q15M PRN IM DECREASED GLUCOSE; Start 08/11/16 at 12: 00 Glucose 15 gm 15 gm Q15M PRN BUCCAL DECREASED GLUCOSE; Start 08/11/16 at 12:00 Caspofungin/ Sodium Chloride (Cancidas/NS) 250 ml @ 250 mls/hr Q24H IVPB Last administered on 08/19/16 15:50; Admin Dose 250 MLS/HR; Start 08/12/16 at 14:00 Insulin Aspart (Novolog Insulin Pen) NOVOLOG *MODERATE* ALGORI... Q4 SC Last administered on 08/20/16 09:23; Admin Dose 2 UNIT; Start 08/11/16 at 17:00 IV Flush 10 ml 10 ml PRN PRN IV IV PROTOCOL; Start 08/13/16 at 18:00 Cefazolin Sodium (Ancef 1 Gm/50 ml (Pmx)) 50 ml @ 100 mls/hr Q24H IVPB Last administered on 08/19/16 17:14; Admin Dose 100 MLS/HR; Start 08/14/16 at 17:00 Collagenase 1 applic 1 applic DAILY@22 TOP Last administered on 08/19/16 21:21 ; Admin Dose 1 APPLIC; Start 08/15/16 at 22:00 Fentanyl/Dextrose (D5W) 100 ml @ 2.6 mls/hr TITRATE IV Last administered on 04:46; Admin Dose 2.6 MLS/HR; Start 08/15/16 at 19:30 Insulin Glargine (Lantus) 25 unit QAM SC Last administered on 08/20/16 09:23; Admin Dose 25 UNIT; Start 08/18/16 at 09:00 Assessment/Plan Chief Complaint/Hosp Course assessment 1. Hypoxemic resp failure, pending tracheostomy 2. Pulm edema, right lower lobe infiltrate, possible aspiration pneumonia. 3. Encephalopathy toxic metabolic 4. Diastolic dysf ? 5. Persistent leukocytosis likely polymicrobial sepsis 6. End-stage renal failure on hemodialysis Plan 1. Continue Vent, pending tracheostomy 2. Hemodialysis per nephrology 3, Aspiration precautions 4. DVT / GI prophylaxis. 5. Continue broad-spectrum antibiotics per ID d/w staff CODE STATUS DNR Transfer to telemetry following tracheostomy Problems: VALERIE CAMARENA MD, [facility] Aug 20, 2016 10:43
--- NOTE | 2016-08-20 11:27 | CONS ---
Date/Time of Note Date/Time of Note DATE: 08/20/16 TIME: 11:13 Assessment/Plan Assessment/Plan Chief Complaint/Hosp Course assessment/Impression: - acute hypoxemic respiratory failure, intubated 07/31 and reintubated 08/15. - aspiration PNA: respiratory Cx on 08/10 grew MSSA and C. Albicans - h/o septic shock - C diff colitis - intermittent fever - resolved - h/o RUE cellulitis complicated by axillary/cephalic venous thrombosis - toxic metabolic encephalopathy - ESRD on HD - hyperglycemia d/t steroids - Diastolic CHF, CAD with Hx PCI, paroxysmal atrial tachycardia - Old partial DVT of the right internal jugular vein. - coagulopathy d/t warfarin - PAD with Hx Left BKA - Parkinson's - Stage 2 coccyx decub - PCN allergic - s/p Primaxin (08/05- 08/14), IV vanco (07/29-08/13), aztreonam (07/29-08/05) Problems: Additional Assessment/Plan recommendations: - Continue IV cefazolin x 14 days (08/14/16-) - Continue PO vanco via OGT (07/1916-) for duration of systemic antibiotic and then up to 10 days thereafter - Continue caspofungin (08/12/16-) empirically based on borderline positive beta d glucan and colonization of the airway due to jerry, recommended duration of 14 days the critical care time I took to care for this Pt today was from 1120 to 1200 Consultation Date/Type/Reason Admit Date/Time Jul 26, 2016 at 01:55 Initial Consult Date 07/29/16 Type of Consultation: ID Referring Provider: GRACIE KATHLEEN 24 HR Interval Summary Subjective hx not possible: pt non-verbal Exam/Review of Systems Vital Signs Vitals Vital Signs Date Time Temp Pulse Resp B/P Pulse Ox O2 Delivery O2 Flow Rate FiO2 08/20/16 09:00 92 18 106/54 100 Mechanical Ventilator 08/20/16 08:00 98.1 08/20/16 08:00 40 Intake and Output 08/19/16 08/19/16 08/20/16 15:00 23:00 07:00 Intake Total 560 ml 446 ml 454 ml Output Total 10 ml 30 ml Balance 560 ml 436 ml 424 ml Exam Constitutional: frail, non-verbal Psych: confusion Head: normocephalic Eyes: nl lids ENMT: intubated, other (NGT) Respiratory: diminished breath sounds Cardiovascular: nl pulses, regular rate and rhythm Gastrointestinal: non-tender, other (rectal tube in place), soft Musculoskeletal: nl extremities to inspection Extremities: edema, other (s/p L BKA) Neurological: unresponsive Skin: ecchymosis Results Result Diagram: 08/20/16 0412 08/20/16 0412 Results 24 hrs Laboratory Tests Test 08/19/16 12:34 08/19/16 17:13 08/19/16 21:24 08/20/16 00:59 Bedside Glucose 82 129 133 146 Test 08/20/16 04:12 08/20/16 05:27 08/20/16 09:19 Alanine Aminotransferase (ALT/SGPT) 31 Albumin 2.6 L Albumin/Globulin Ratio 1.00 Alkaline Phosphatase 121 Anion Gap 14 Aspartate Amino Transf (AST/SGOT) 41 Basophils # 0.0 Basophils % 0.4 Blood Morphology Comment Blood Urea Nitrogen 56 H Calcium Level 7.7 L Carbon Dioxide Level 26 Chloride Level 95 L Creatinine 2.84 H Direct Bilirubin 0.00 Eosinophils # 0.0 Eosinophils % 0.2 Globulin 2.60 Glucose Level 138 Hematocrit 25.3 L Hemoglobin 8.3 L Indirect Bilirubin 0.2 Lymphocytes # 0.5 L Lymphocytes % 6.1 L Mean Corpuscular Hemoglobin 32.0 Mean Corpuscular Hemoglobin Concent 32.7 Mean Corpuscular Volume 97.7 Mean Platelet Volume 7.8 Monocytes # 0.3 Monocytes % 3.3 Neutrophils # 7.5 Neutrophils % 90.0 H Nucleated Red Blood Cells # 0.0 Nucleated Red Blood Cells % 0.0 Platelet Count 84 L Potassium Level 4.1 Red Blood Count 2.58 L Red Cell Distribution Width 15.2 H Sodium Level 131 L Total Bilirubin 0.2 Total Protein 5.2 L White Blood Count 8.4 # Bedside Glucose 163 166 Medications Medications Current Medications Fluticasone Propionate (Flonase 0.05% Nasal) 1 spray BID NASAL Last administered on 08/20/16t 09:24; Admin Dose 1 SPRAY; Start 07/26/16 at 10:00 Epoetin [place] (Epogen (Esrd)) 10,000 units MoWeFr@17 SC Last administered on at 16:48; Admin Dose 10,000 UNITS; Start 07/27/16 at 17:00; Status Future hold Hydralazine HCl 10 mg 10 mg Q6H PRN IV ELEVATED BLOOD PRESSURE Last administered on 08/15/16at 15:37; Admin Dose 10 MG; Start 07/29/16 at 13:00 Midazolam HCl/ Dextrose (Versed/D5W) 50 ml @ 1 mls/hr TITRATE IV Last administered on 08/20/16 09:43; Admin Dose 8 MLS/HR; Start 08/01/16 at 23:00 Acetaminophen (Tylenol Tab) 650 mg Q6H PRN GTB PAIN1-3/FEVER ABOVE 100 Last administered on 08/12/16at 06:07; Admin Dose 650 MG; Start 08/02/16 at 15:00 Atorvastatin Calcium (Lipitor) 40 mg HS GTB Last administered on 08/19/16 21:20 ; Admin Dose 40 MG; Start 08/02/16 at 21:00 Carvedilol (Coreg) 6.25 mg BID GTB ; Start 08/02/16 at 09:00; Status Future Hold Duloxetine HCl (Cymbalta) 90 mg DAILY GTB Last administered on 08/20/16 09:24; Admin Dose 90 MG; Start 08/02/16 at 09:00 Guaifenesin (Robitussin Liquid Cup) 100 mg Q4 PRN GTB COUGH; Start 08/02/16 at 09:00 Acetaminophen/ Hydrocodone Bitart ([place] (5/325)) 1 tab Q4 PRN GTB WSOB Last administered on 08/08/16at 09:01; Admin Dose 1 TAB; Start 08/02/16 at 09:00 Lactobacillus Acidoph/Bulgaricus (Floranex) 1 tab DAILY GTB Last administered on 08/20/16 09:24; Admin Dose 1 TAB; Start 08/02/16 at 09:00 Lorazepam (Ativan) 1 mg Q6H PRN GTB ANXIETY Last administered on 08/18/16at 10: 45; Admin Dose 1 MG; Start 08/02/16 at 09:00 Multivit/Ca Carb/ B Cmplx/FA/Prenat (Cheryl-Darcie) 1 tab DAILY GTB Last administered on 08/20/16 09:24; Admin Dose 1 TAB; Start 08/02/16 at 09:00 Aspirin (Aspirin) 81 mg DAILY GTB Last administered on 08/20/16 09:23; Admin Dose 81 MG; Start 08/02/16 at 09:00 Lansoprazole 30 mg 30 mg DAILY@06 GTB Last administered on 08/20/16 05:23; Admin Dose 30 MG; Start 08/02/16 at 10:00 Phenylephrine HCl 80 mg/Dextrose 250 ml @ 18.75 mls/ hr TITRATE IV ; Start at 12:30 Norepinephrine/ Dextrose (Levophed/D5W) 500 ml @ 1.87 mls/hr TITRATE IV Last administered on 08/16/16at 01:50; Admin Dose 3.75 MLS/HR; Start 08/05/16 at 12: 00 Vancomycin HCl (Vancomycin Oral Syringe) 125 mg Q6 NGT Last administered on 08/20 05:23; Admin Dose 125 MG; Start 08/06/16 at 18:00 Sildenafil Citrate (Revatio) 20 mg BID PO Last administered on 08/11/16at 11:56 ; Admin Dose 20 MG; Start 08/08/16 at 21:00; Status Future Hold Lorazepam (Ativan) 0.5 mg Q4 PRN IV ANXIETY Last administered on 08/09/16at 10: 51; Admin Dose 0.5 MG; Start 08/09/16 at 00:00 Methylprednisolone Sodium Succinate (Solu-Medrol) 20 mg DAILY IV Last administered on 08/20/16 09:23; Admin Dose 20 MG; Start 08/10/16 at 09:00 Miscellaneous Information 1 ea NOTE XX ; Start 08/11/16 at 12:00 Glucose (Glutose) 15 gm Q15M PRN PO DECREASED GLUCOSE; Start 08/11/16 at 12:00 Glucose (Glutose) 22.5 gm Q15M PRN PO DECREASED GLUCOSE; Start 08/11/16 at 12: 00 Dextrose (D50w Syringe) 25 ml Q15M PRN IV DECREASED GLUCOSE Last administered on 08/17/16at 12:42; Admin Dose 25 ML; Start 08/11/16 at 12:00 Dextrose (D50w Syringe) 50 ml Q15M PRN IV DECREASED GLUCOSE; Start 08/11/16 at 12:00 Glucagon (Glucagen) 1 mg Q15M PRN IM DECREASED GLUCOSE; Start 08/11/16 at 12: 00 Glucose 15 gm 15 gm Q15M PRN BUCCAL DECREASED GLUCOSE; Start 08/11/16 at 12:00 Caspofungin/ Sodium Chloride (Cancidas/NS) 250 ml @ 250 mls/hr Q24H IVPB Last administered on 08/19/16 15:50; Admin Dose 250 MLS/HR; Start 08/12/16 at 14:00 Insulin Aspart (Novolog Insulin Pen) NOVOLOG *MODERATE* ALGORI... Q4 SC Last administered on 08/20/16 09:23; Admin Dose 2 UNIT; Start 08/11/16 at 17:00 IV Flush 10 ml 10 ml PRN PRN IV IV PROTOCOL; Start 08/13/16 at 18:00 Cefazolin Sodium (Ancef 1 Gm/50 ml (Pmx)) 50 ml @ 100 mls/hr Q24H IVPB Last administered on 08/19/16 17:14; Admin Dose 100 MLS/HR; Start 08/14/16 at 17:00 Collagenase 1 applic 1 applic DAILY@22 TOP Last administered on 08/19/16 21:21 ; Admin Dose 1 APPLIC; Start 08/15/16 at 22:00 Fentanyl/Dextrose (D5W) 100 ml @ 2.6 mls/hr TITRATE IV Last administered on 04:46; Admin Dose 2.6 MLS/HR; Start 08/15/16 at 19:30 Insulin Glargine (Lantus) 25 unit QAM SC Last administered on 08/20/16 09:23; Admin Dose 25 UNIT; Start 08/18/16 at 09:00 SADIA LONDON M.D. Aug 20, 2016 11:22
--- NOTE | 2016-08-20 12:29 | PN ---
Date/Time of Note Date/Time of Note DATE: 08/20/16 TIME: 12:28 Assessment/Plan VTE Prophylaxis VTE Prophylaxis Intervention: other Lines/Catheters IV [facility] P[facility] Line Central line still needed: Yes Reason Cath still needed: skin wounds contaminated by urine Assessment/Plan Chief Complaint/Hosp Course 1. Acute respiratory failure - had to be reintubated, probably will need subacute, trach 2. Possible pneumonia- right lower lobe infiltrate- possible aspiration pneumonia per Pulmonary. Sputum grew 08/02 rare jerry albicans - per Dr. Reardon in infectious disease consultation. 3. Early sepsis d/t C diff - recurrent leukocytosis improving and low grade fever resolving. 4. End-stage renal disease hemodialysis dependent. - on HD - per Dr. Bassett in nephrology consultation 5. Diastolic congestive heart failure. Continue to remove fluid was hemodialysis. 6. Partial right internal jugular DVT. Continue Coumadin. Continue daily PT PTT. 7. C diff stool - per ID - on po Vanco - contact isolation 8. RUE cellulitis with axillary/cephalic venous thrombosis - PER id 9. Hyperglycemia- GLYCEMIC Control- stable 10. Toxic metabolic encephalopathy 11. Osteoporosis. 12. Pulmonary hypertension. Continue sildenafil. 13. Coronary artery disease with history of PCI. 14. Depression. Continue Cymbalta 15. History of left hip fracture, treated conservatively. Problems: Subjective 24 Hr Interval Summary Free Text/Dictation Patient remains sedated and intubated, appears comfortable Exam/Review of Systems Vital Signs Vitals Vital Signs Date Time Temp Pulse Resp B/P Pulse Ox O2 Delivery O2 Flow Rate FiO2 08/20/16 12:00 93 08/20/16 11:05 20 100 40 08/20/16 09:00 106/54 Mechanical Ventilator 08/20/16 08:00 98.1 Intake and Output 08/19/16 08/19/16 08/20/16 15:00 23:00 07:00 Intake Total 560 ml 446 ml 454 ml Output Total 10 ml 30 ml Balance 560 ml 436 ml 424 ml Exam Constitutional: well developed Neck: supple Respiratory: diminished breath sounds Cardiovascular: regular rate and rhythm Gastrointestinal: non-tender, soft Extremities: normal pulses Results Result Diagram: 08/20/16 0412 08/20/16 0412 Results 24 hrs Laboratory Tests Test 08/19/16 12:34 08/19/16 17:13 08/19/16 21:24 1/2/17 00:59 Bedside Glucose 82 129 133 146 Test 08/20/16 04:12 08/20/16 05:27 08/20/16 09:19 Alanine Aminotransferase (ALT/SGPT) 31 Albumin 2.6 L Albumin/Globulin Ratio 1.00 Alkaline Phosphatase 121 Anion Gap 14 Aspartate Amino Transf (AST/SGOT) 41 Basophils # 0.0 Basophils % 0.4 Blood Morphology Comment Blood Urea Nitrogen 56 H Calcium Level 7.7 L Carbon Dioxide Level 26 Chloride Level 95 L Creatinine 2.84 H Direct Bilirubin 0.00 Eosinophils # 0.0 Eosinophils % 0.2 Globulin 2.60 Glucose Level 138 Hematocrit 25.3 L Hemoglobin 8.3 L Indirect Bilirubin 0.2 Lymphocytes # 0.5 L Lymphocytes % 6.1 L Mean Corpuscular Hemoglobin 32.0 Mean Corpuscular Hemoglobin Concent 32.7 Mean Corpuscular Volume 97.7 Mean Platelet Volume 7.8 Monocytes # 0.3 Monocytes % 3.3 Neutrophils # 7.5 Neutrophils % 90.0 H Nucleated Red Blood Cells # 0.0 Nucleated Red Blood Cells % 0.0 Platelet Count 84 L Potassium Level 4.1 Red Blood Count 2.58 L Red Cell Distribution Width 15.2 H Sodium Level 131 L Total Bilirubin 0.2 Total Protein 5.2 L White Blood Count 8.4 # Bedside Glucose 163 166 Medications Medications Current Medications Fluticasone Propionate (Flonase 0.05% Nasal) 1 spray BID NASAL Last administered on 08/20/16 09:24; Admin Dose 1 SPRAY; Start 07/26/16 at 10:00 Epoetin [place] (Epogen (Esrd)) 10,000 units MoWeFr@17 SC Last administered on at 16:48; Admin Dose 10,000 UNITS; Start 07/27/16 at 17:00; Status Future hold Hydralazine HCl 10 mg 10 mg Q6H PRN IV ELEVATED BLOOD PRESSURE Last administered on 08/15/16at 15:37; Admin Dose 10 MG; Start 07/29/16 at 13:00 Midazolam HCl/ Dextrose (Versed/D5W) 50 ml @ 1 mls/hr TITRATE IV Last administered on 08/20/16 09:43; Admin Dose 8 MLS/HR; Start 08/01/16 at 23:00 Acetaminophen (Tylenol Tab) 650 mg Q6H PRN GTB PAIN1-3/FEVER ABOVE 100 Last administered on 08/12/16at 06:07; Admin Dose 650 MG; Start 08/02/16 at 15:00 Atorvastatin Calcium (Lipitor) 40 mg HS GTB Last administered on 08/19/16 21:20 ; Admin Dose 40 MG; Start 08/02/16 at 21:00 Carvedilol (Coreg) 6.25 mg BID GTB ; Start 08/02/16 at 09:00; Status Future Hold Duloxetine HCl (Cymbalta) 90 mg DAILY GTB Last administered on 08/20/16 09:24; Admin Dose 90 MG; Start 08/02/16 at 09:00 Guaifenesin (Robitussin Liquid Cup) 100 mg Q4 PRN GTB COUGH; Start 08/02/16 at 09:00 Acetaminophen/ Hydrocodone Bitart ([place] (5/325)) 1 tab Q4 PRN GTB WSOB Last administered on 08/08/16at 09:01; Admin Dose 1 TAB; Start 08/02/16 at 09:00 Lactobacillus Acidoph/Bulgaricus (Floranex) 1 tab DAILY GTB Last administered on 08/20/16 09:24; Admin Dose 1 TAB; Start 08/02/16 at 09:00 Lorazepam (Ativan) 1 mg Q6H PRN GTB ANXIETY Last administered on 08/18/16at 10: 45; Admin Dose 1 MG; Start 08/02/16 at 09:00 Multivit/Ca Carb/ B Cmplx/FA/Prenat (Cheryl-Darcie) 1 tab DAILY GTB Last administered on 08/20/16 09:24; Admin Dose 1 TAB; Start 08/02/16 at 09:00 Aspirin (Aspirin) 81 mg DAILY GTB Last administered on 08/20/16 09:23; Admin Dose 81 MG; Start 08/02/16 at 09:00 Lansoprazole 30 mg 30 mg DAILY@06 GTB Last administered on 08/20/16 05:23; Admin Dose 30 MG; Start 08/02/16 at 10:00 Phenylephrine HCl 80 mg/Dextrose 250 ml @ 18.75 mls/ hr TITRATE IV ; Start at 12:30 Norepinephrine/ Dextrose (Levophed/D5W) 500 ml @ 1.87 mls/hr TITRATE IV Last administered on 08/16/16at 01:50; Admin Dose 3.75 MLS/HR; Start 08/05/16 at 12: 00 Vancomycin HCl (Vancomycin Oral Syringe) 125 mg Q6 NGT Last administered on 08/20 12:14; Admin Dose 125 MG; Start 08/06/16 at 18:00 Sildenafil Citrate (Revatio) 20 mg BID PO Last administered on 08/11/16at 11:56 ; Admin Dose 20 MG; Start 08/08/16 at 21:00; Status Future Hold Lorazepam (Ativan) 0.5 mg Q4 PRN IV ANXIETY Last administered on 08/09/16 10: 51; Admin Dose 0.5 MG; Start 08/09/16 at 00:00 Methylprednisolone Sodium Succinate (Solu-Medrol) 20 mg DAILY IV Last administered on 08/20/16 09:23; Admin Dose 20 MG; Start 08/10/16 at 09:00 Miscellaneous Information 1 ea NOTE XX ; Start 08/11/16 at 12:00 Glucose (Glutose) 15 gm Q15M PRN PO DECREASED GLUCOSE; Start 08/11/16 at 12:00 Glucose (Glutose) 22.5 gm Q15M PRN PO DECREASED GLUCOSE; Start 08/11/16 at 12: 00 Dextrose (D50w Syringe) 25 ml Q15M PRN IV DECREASED GLUCOSE Last administered on 08/17/16at 12:42; Admin Dose 25 ML; Start 08/11/16 at 12:00 Dextrose (D50w Syringe) 50 ml Q15M PRN IV DECREASED GLUCOSE; Start 08/11/16 at 12:00 Glucagon (Glucagen) 1 mg Q15M PRN IM DECREASED GLUCOSE; Start 08/11/16 at 12: 00 Glucose 15 gm 15 gm Q15M PRN BUCCAL DECREASED GLUCOSE; Start 08/11/16 at 12:00 Caspofungin/ Sodium Chloride (Cancidas/NS) 250 ml @ 250 mls/hr Q24H IVPB Last administered on 08/19/16 15:50; Admin Dose 250 MLS/HR; Start 08/12/16 at 14:00 Insulin Aspart (Novolog Insulin Pen) NOVOLOG *MODERATE* ALGORI... Q4 SC Last administered on 08/20/16 09:23; Admin Dose 2 UNIT; Start 08/11/16 at 17:00 IV Flush 10 ml 10 ml PRN PRN IV IV PROTOCOL; Start 08/13/16 at 18:00 Cefazolin Sodium (Ancef 1 Gm/50 ml (Pmx)) 50 ml @ 100 mls/hr Q24H IVPB Last administered on 08/19/16 17:14; Admin Dose 100 MLS/HR; Start 08/14/16 at 17:00 Collagenase 1 applic 1 applic DAILY@22 TOP Last administered on 08/19/16 21:21 ; Admin Dose 1 APPLIC; Start 08/15/16 at 22:00 Fentanyl/Dextrose (D5W) 100 ml @ 2.6 mls/hr TITRATE IV Last administered on 04:46; Admin Dose 2.6 MLS/HR; Start 08/15/16 at 19:30 Insulin Glargine (Lantus) 25 unit QAM SC Last administered on 08/20/16 09:23; Admin Dose 25 UNIT; Start 08/18/16 at 09:00 LESLIE PEDROZA Aug 20, 2016 12:29
[2016-08-20] MEDS: CASPOFUNGIN 35 MG in SOD CHLORIDE 0.9% 250 ML IVPB SCH (13:03)
--- NOTE | 2016-08-20 14:46 | CONS ---
Date/Time of Note Date/Time of Note DATE: 08/20/16 TIME: 14:44 Assessment/Plan Assessment/Plan Additional Assessment/Plan Respiratory failure status post intubation Sepsis Minimally elevated troponin DVT Diastolic congestive heart failure End-stage renal disease on hemodialysis CAD with history of PCI Diabetes Peripheral arterial disease with history of amputation Pulmonary hypertension -Patient planned to proceed with tracheostomy and PEG placement. Fluid management via hemodialysis as per our nephrology colleagues. Given labile blood pressure, hydralazine available when necessary. Patient off Coumadin in anticipation of procedure, check INR Consultation Date/Type/Reason Admit Date/Time Jul 26, 2016 at 01:55 Type of Consultation: cv Referring Provider: GRACIE KATHLEEN 24 HR Interval Summary Free Text/Dictation Remains sedated and intubated, no cardiac issues as per nursing staff Exam/Review of Systems Vital Signs Vitals Vital Signs Date Time Temp Pulse Resp B/P Pulse Ox O2 Delivery O2 Flow Rate FiO2 08/20/16 12:00 93 08/20/16 12:00 98.5 24 124/67 91 Mechanical Ventilator 08/20/16 11:05 40 Intake and Output 08/19/16 08/19/16 08/20/16 15:00 23:00 07:00 Intake Total 560 ml 446 ml 507 ml Output Total 10 ml 30 ml Balance 560 ml 436 ml 477 ml Exam Sedated and intubated, no apparent distress Head: normocephalic ENMT: intubated Respiratory: other (course breath sounds bilaterally, no wheezing) Cardiovascular: other (S1 and S2 heard), regular rate and rhythm Gastrointestinal: bowel sounds, non-tender, soft Extremities: edema Results Result Diagram: 08/20/16 0412 08/20/16 0412 Results 24 hrs Laboratory Tests Test 08/19/16 17:13 08/19/16 21:24 08/20/16 00:59 08/20/16 04:12 Bedside Glucose 129 133 146 Alanine Aminotransferase (ALT/SGPT) 31 Albumin 2.6 L Albumin/Globulin Ratio 1.00 Alkaline Phosphatase 121 Anion Gap 14 Aspartate Amino Transf (AST/SGOT) 41 Basophils # 0.0 Basophils % 0.4 Blood Morphology Comment Blood Urea Nitrogen 56 H Calcium Level 7.7 L Carbon Dioxide Level 26 Chloride Level 95 L Creatinine 2.84 H Direct Bilirubin 0.00 Eosinophils # 0.0 Eosinophils % 0.2 Globulin 2.60 Glucose Level 138 Hematocrit 25.3 L Hemoglobin 8.3 L Indirect Bilirubin 0.2 Lymphocytes # 0.5 L Lymphocytes % 6.1 L Mean Corpuscular Hemoglobin 32.0 Mean Corpuscular Hemoglobin Concent 32.7 Mean Corpuscular Volume 97.7 Mean Platelet Volume 7.8 Monocytes # 0.3 Monocytes % 3.3 Neutrophils # 7.5 Neutrophils % 90.0 H Nucleated Red Blood Cells # 0.0 Nucleated Red Blood Cells % 0.0 Platelet Count 84 L Potassium Level 4.1 Red Blood Count 2.58 L Red Cell Distribution Width 15.2 H Sodium Level 131 L Total Bilirubin 0.2 Total Protein 5.2 L White Blood Count 8.4 # Test 08/20/16 05:27 08/20/16 09:19 08/20/16 13:01 Bedside Glucose 163 166 238 H Medications Medications Current Medications Fluticasone Propionate (Flonase 0.05% Nasal) 1 spray BID NASAL Last administered on 08/20/16 09:24; Admin Dose 1 SPRAY; Start 07/26/16 at 10:00 Epoetin [place] (Epogen (Esrd)) 10,000 units MoWeFr@17 SC Last administered on at 16:48; Admin Dose 10,000 UNITS; Start 07/27/16 at 17:00; Status Future hold Hydralazine HCl 10 mg 10 mg Q6H PRN IV ELEVATED BLOOD PRESSURE Last administered on 08/15/16at 15:37; Admin Dose 10 MG; Start 07/29/16 at 13:00 Midazolam HCl/ Dextrose (Versed/D5W) 50 ml @ 1 mls/hr TITRATE IV Last administered on 08/20/16 09:43; Admin Dose 8 MLS/HR; Start 08/01/16 at 23:00 Acetaminophen (Tylenol Tab) 650 mg Q6H PRN GTB PAIN1-3/FEVER ABOVE 100 Last administered on 08/12/16at 06:07; Admin Dose 650 MG; Start 08/02/16 at 15:00 Atorvastatin Calcium (Lipitor) 40 mg HS GTB Last administered on 08/19/16 21:20 ; Admin Dose 40 MG; Start 08/02/16 at 21:00 Carvedilol (Coreg) 6.25 mg BID GTB ; Start 08/02/16 at 09:00; Status Future Hold Duloxetine HCl (Cymbalta) 90 mg DAILY GTB Last administered on 08/20/16 09:24; Admin Dose 90 MG; Start 08/02/16 at 09:00 Guaifenesin (Robitussin Liquid Cup) 100 mg Q4 PRN GTB COUGH; Start 08/02/16 at 09:00 Acetaminophen/ Hydrocodone Bitart ([place] (5/325)) 1 tab Q4 PRN GTB WSOB Last administered on 08/08/16at 09:01; Admin Dose 1 TAB; Start 08/02/16 at 09:00 Lactobacillus Acidoph/Bulgaricus (Floranex) 1 tab DAILY GTB Last administered on 08/20/16 09:24; Admin Dose 1 TAB; Start 08/02/16 at 09:00 Lorazepam (Ativan) 1 mg Q6H PRN GTB ANXIETY Last administered on 08/18/16at 10: 45; Admin Dose 1 MG; Start 08/02/16 at 09:00 Multivit/Ca Carb/ B Cmplx/FA/Prenat (Cheryl-Darcie) 1 tab DAILY GTB Last administered on 08/20/16 09:24; Admin Dose 1 TAB; Start 08/02/16 at 09:00 Aspirin (Aspirin) 81 mg DAILY GTB Last administered on 08/20/16 09:23; Admin Dose 81 MG; Start 08/02/16 at 09:00 Lansoprazole 30 mg 30 mg DAILY@06 GTB Last administered on 08/20/16 05:23; Admin Dose 30 MG; Start 08/02/16 at 10:00 Phenylephrine HCl 80 mg/Dextrose 250 ml @ 18.75 mls/ hr TITRATE IV ; Start at 12:30 Norepinephrine/ Dextrose (Levophed/D5W) 500 ml @ 1.87 mls/hr TITRATE IV Last administered on 08/16/16at 01:50; Admin Dose 3.75 MLS/HR; Start 08/05/16 at 12: 00 Vancomycin HCl (Vancomycin Oral Syringe) 125 mg Q6 NGT Last administered on 08/20 12:14; Admin Dose 125 MG; Start 08/06/16 at 18:00 Sildenafil Citrate (Revatio) 20 mg BID PO Last administered on 08/11/16at 11:56 ; Admin Dose 20 MG; Start 08/08/16 at 21:00; Status Future Hold Lorazepam (Ativan) 0.5 mg Q4 PRN IV ANXIETY Last administered on 08/09/16at 10: 51; Admin Dose 0.5 MG; Start 08/09/16 at 00:00 Methylprednisolone Sodium Succinate (Solu-Medrol) 20 mg DAILY IV Last administered on 08/20/16 09:23; Admin Dose 20 MG; Start 08/10/16 at 09:00 Miscellaneous Information 1 ea NOTE XX ; Start 08/11/16 at 12:00 Glucose (Glutose) 15 gm Q15M PRN PO DECREASED GLUCOSE; Start 08/11/16 at 12:00 Glucose (Glutose) 22.5 gm Q15M PRN PO DECREASED GLUCOSE; Start 08/11/16 at 12: 00 Dextrose (D50w Syringe) 25 ml Q15M PRN IV DECREASED GLUCOSE Last administered on 08/17/16at 12:42; Admin Dose 25 ML; Start 08/11/16 at 12:00 Dextrose (D50w Syringe) 50 ml Q15M PRN IV DECREASED GLUCOSE; Start 08/11/16 at 12:00 Glucagon (Glucagen) 1 mg Q15M PRN IM DECREASED GLUCOSE; Start 08/11/16 at 12: 00 Glucose 15 gm 15 gm Q15M PRN BUCCAL DECREASED GLUCOSE; Start 08/11/16 at 12:00 Caspofungin/ Sodium Chloride (Cancidas/NS) 250 ml @ 250 mls/hr Q24H IVPB Last administered on 08/20/16 13:03; Admin Dose 250 MLS/HR; Start 08/12/16 at 14:00 Insulin Aspart (Novolog Insulin Pen) NOVOLOG *MODERATE* ALGORI... Q4 SC Last administered on 08/20/16 13:04; Admin Dose 6 UNIT; Start 08/11/16 at 17:00 IV Flush 10 ml 10 ml PRN PRN IV IV PROTOCOL; Start 08/13/16 at 18:00 Cefazolin Sodium (Ancef 1 Gm/50 ml (Pmx)) 50 ml @ 100 mls/hr Q24H IVPB Last administered on 08/19/16 17:14; Admin Dose 100 MLS/HR; Start 08/14/16 at 17:00 Collagenase 1 applic 1 applic DAILY@22 TOP Last administered on 08/19/16 21:21 ; Admin Dose 1 APPLIC; Start 08/15/16 at 22:00 Fentanyl/Dextrose (D5W) 100 ml @ 2.6 mls/hr TITRATE IV Last administered on 04:46; Admin Dose 2.6 MLS/HR; Start 08/15/16 at 19:30 Insulin Glargine (Lantus) 25 unit QAM SC Last administered on 08/20/16 09:23; Admin Dose 25 UNIT; Start 08/18/16 at 09:00 Solo Leon DO Aug 20, 2016 14:46
[2016-08-20] MEDS: CEFAZOLIN 1 GM/50 ML (PMX) 50 ML IVPB SCH (17:13)
[2016-08-20] MEDS: EPOETIN 10000 UNITS/1 ML INJ (ESRD) SC SCH (17:15)
[2016-08-20] MEDS: ATORVASTATIN 40 MG TAB GTB SCH (21:04)
[2016-08-21] VITALS (56 sets, daily range): BP systolic 81–152; BP diastolic 45–74; PULSE 65–102; RESP 16–21
[2016-08-21] MEDS: COLLAGENASE 30 GM TUBE TOP SCH ×2 (00:21→21:45)
[2016-08-21] MEDS: VANCOMYCIN HCL 250 MG/5ML POSYG NGT SCH ×5 (00:21→23:19)
[2016-08-21] MEDS: INSULIN ASPART [NOVOLOG] 3 ML PEN SC SCH ×6 (00:22→21:49)
[2016-08-21] MEDS: FENTAnyl 1,000 MCG in DEXTROSE 5% 80 ML IV SCH ×2 (01:11→23:20)
[2016-08-21] MEDS: MIDAZOLAM 50 MG in DEXTROSE 5% 40 ML IV SCH ×2 (01:13→13:28)
[2016-08-21] MEDS: ALBUTEROL HFA 8 GM INHALER INH SCH ×4 (01:25→19:27)
[2016-08-21] MEDS: IPRATROPIUM (HFA) 12.9 GM INHALER INH SCH ×4 (01:25→19:27)
[2016-08-21 04:49] LABS: INR 1.42; PROTIME 17.4 Sec (12.2-14.2); PT RATIO 1.4
[2016-08-21] MEDS: LANSOPRAZOLE 30 MG CAP GTB SCH (05:43)
--- NOTE | 2016-08-21 08:44 | CONS ---
Date/Time of Note Date/Time of Note DATE: 08/21/16 TIME: 08:43 Assessment/Plan Assessment/Plan Chief Complaint/Hosp Course assessment/Impression: - acute hypoxemic respiratory failure, intubated 07/31 and reintubated 08/15. - aspiration PNA: respiratory Cx on 08/10 grew MSSA and C. Albicans - h/o septic shock - C diff colitis - intermittent fever - resolved - h/o RUE cellulitis complicated by axillary/cephalic venous thrombosis - toxic metabolic encephalopathy - ESRD on HD - Diastolic CHF, CAD with Hx PCI, paroxysmal atrial tachycardia - Old partial DVT of the right internal jugular vein. - PAD s/p BKA - underlying Parkinson's disease - Stage 2 coccyx decub - PCN allergic - s/p Primaxin (08/05- 08/14), IV vanco (07/29-08/13), aztreonam (07/29-08/05) Problems: Additional Assessment/Plan recommendations: - Continue IV cefazolin x 14 days (08/14/16-) - Continue PO vanco via OGT (07/1916-) for duration of systemic antibiotic and then up to 10 days thereafter - Continue caspofungin (08/12/16-) empirically based on several risk factors for invasive candidiasis: borderline positive beta D glucan, receipt of broad spectrum antibacterial agents and colonization of the airway due to jerry, recommended duration of 14 days the critical care time I took to care for this Pt today was from 0815 to 0900 Consultation Date/Type/Reason Admit Date/Time Jul 26, 2016 at 01:55 Initial Consult Date 07/29/16 Type of Consultation: ID Referring Provider: GRACIE KATHLEEN 24 HR Interval Summary Subjective hx not possible: pt non-verbal, pt critical, pt critical status Exam/Review of Systems Vital Signs Vitals Vital Signs Date Time Temp Pulse Resp B/P Pulse Ox O2 Delivery O2 Flow Rate FiO2 08/21/16 08:30 91 08/21/16 07:00 20 08/21/16 05:13 100 40 08/21/16 05:00 131/65 Mechanical Ventilator 08/20/16 19:00 98.1 Intake and Output 08/20/16 08/20/16 08/21/16 15:00 23:00 07:00 Intake Total 799 ml 551 ml 552 ml Output Total 0 ml 0 ml Balance 799 ml 551 ml 552 ml Exam Constitutional: frail, non-verbal Psych: confusion Head: normocephalic, other (NGT) Eyes: nl lids, No icteric ENMT: intubated Respiratory: crackles/rales Cardiovascular: nl pulses, regular rate and rhythm Gastrointestinal: non-tender, soft Extremities: edema Neurological: unresponsive Skin: ecchymosis, laceration Results Result Diagram: 08/20/16 0412 08/20/16 0412 Results 24 hrs Laboratory Tests Test 08/20/16 09:19 08/20/16 13:01 08/20/16 17:19 08/20/16 21:05 Bedside Glucose 166 238 H 249 H 192 Test 08/21/16 00:21 08/21/16 04:00 08/21/16 05:41 Bedside Glucose 192 186 INR International Normalized Ratio 1.42 Prothrombin Time 17.4 H Prothrombin Time Ratio 1.4 Medications Medications Current Medications Fluticasone Propionate (Flonase 0.05% Nasal) 1 spray BID NASAL Last administered on 08/20/16 21:04; Admin Dose 1 SPRAY; Start 07/26/16 at 10:00 Epoetin [place] (Epogen (Esrd)) 10,000 units MoWeFr@17 SC Last administered on 08/20 17:15; Admin Dose 10,000 UNITS; Start 07/27/16 at 17:00; Status Future hold Hydralazine HCl 10 mg 10 mg Q6H PRN IV ELEVATED BLOOD PRESSURE Last administered on 08/15/16at 15:37; Admin Dose 10 MG; Start 07/29/16 at 13:00 Midazolam HCl/ Dextrose (Versed/D5W) 50 ml @ 1 mls/hr TITRATE IV Last administered on 08/21/16 01:13; Admin Dose 6 MLS/HR; Start 08/01/16 at 23:00 Acetaminophen (Tylenol Tab) 650 mg Q6H PRN GTB PAIN1-3/FEVER ABOVE 100 Last administered on 08/12/16at 06:07; Admin Dose 650 MG; Start 08/02/16 at 15:00 Atorvastatin Calcium (Lipitor) 40 mg HS GTB Last administered on 08/20/16 21:04 ; Admin Dose 40 MG; Start 08/02/16 at 21:00 Carvedilol (Coreg) 6.25 mg BID GTB ; Start 08/02/16 at 09:00; Status Future Hold Duloxetine HCl (Cymbalta) 90 mg DAILY GTB Last administered on 08/20/16 09:24; Admin Dose 90 MG; Start 08/02/16 at 09:00 Guaifenesin (Robitussin Liquid Cup) 100 mg Q4 PRN GTB COUGH; Start 08/02/16 at 09:00 Acetaminophen/ Hydrocodone Bitart ([place] (5/325)) 1 tab Q4 PRN GTB WSOB Last administered on 08/08/16at 09:01; Admin Dose 1 TAB; Start 08/02/16 at 09:00 Lactobacillus Acidoph/Bulgaricus (Floranex) 1 tab DAILY GTB Last administered on 08/20/16 09:24; Admin Dose 1 TAB; Start 08/02/16 at 09:00 Lorazepam (Ativan) 1 mg Q6H PRN GTB ANXIETY Last administered on 08/18/16at 10: 45; Admin Dose 1 MG; Start 08/02/16 at 09:00 Multivit/Ca Carb/ B Cmplx/FA/Prenat (Cheryl-Darcie) 1 tab DAILY GTB Last administered on 08/20/16 09:24; Admin Dose 1 TAB; Start 08/02/16 at 09:00 Aspirin (Aspirin) 81 mg DAILY GTB Last administered on 08/20/16 09:23; Admin Dose 81 MG; Start 08/02/16 at 09:00 Lansoprazole 30 mg 30 mg DAILY@06 GTB Last administered on 08/21/16 05:43; Admin Dose 30 MG; Start 08/02/16 at 10:00 Phenylephrine HCl 80 mg/Dextrose 250 ml @ 18.75 mls/ hr TITRATE IV ; Start at 12:30 Norepinephrine/ Dextrose (Levophed/D5W) 500 ml @ 1.87 mls/hr TITRATE IV Last administered on 08/16/16at 01:50; Admin Dose 3.75 MLS/HR; Start 08/05/16 at 12: 00 Vancomycin HCl (Vancomycin Oral Syringe) 125 mg Q6 NGT Last administered on 08/21 05:43; Admin Dose 125 MG; Start 08/06/16 at 18:00 Sildenafil Citrate (Revatio) 20 mg BID PO Last administered on 08/11/16at 11:56 ; Admin Dose 20 MG; Start 08/08/16 at 21:00; Status Future Hold Lorazepam (Ativan) 0.5 mg Q4 PRN IV ANXIETY Last administered on 08/09/16at 10: 51; Admin Dose 0.5 MG; Start 08/09/16 at 00:00 Methylprednisolone Sodium Succinate (Solu-Medrol) 20 mg DAILY IV Last administered on 08/20/16 09:23; Admin Dose 20 MG; Start 08/10/16 at 09:00 Miscellaneous Information 1 ea NOTE XX ; Start 08/11/16 at 12:00 Glucose (Glutose) 15 gm Q15M PRN PO DECREASED GLUCOSE; Start 08/11/16 at 12:00 Glucose (Glutose) 22.5 gm Q15M PRN PO DECREASED GLUCOSE; Start 08/11/16 at 12: 00 Dextrose (D50w Syringe) 25 ml Q15M PRN IV DECREASED GLUCOSE Last administered on 08/17/16at 12:42; Admin Dose 25 ML; Start 08/11/16 at 12:00 Dextrose (D50w Syringe) 50 ml Q15M PRN IV DECREASED GLUCOSE; Start 08/11/16 at 12:00 Glucagon (Glucagen) 1 mg Q15M PRN IM DECREASED GLUCOSE; Start 08/11/16 at 12: 00 Glucose 15 gm 15 gm Q15M PRN BUCCAL DECREASED GLUCOSE; Start 08/11/16 at 12:00 Caspofungin/ Sodium Chloride (Cancidas/NS) 250 ml @ 250 mls/hr Q24H IVPB Last administered on 08/20/16 13:03; Admin Dose 250 MLS/HR; Start 08/12/16 at 14:00 Insulin Aspart (Novolog Insulin Pen) NOVOLOG *MODERATE* ALGORI... Q4 SC Last administered on 08/21/16 05:47; Admin Dose 4 UNIT; Start 08/11/16 at 17:00 IV Flush 10 ml 10 ml PRN PRN IV IV PROTOCOL; Start 08/13/16 at 18:00 Cefazolin Sodium (Ancef 1 Gm/50 ml (Pmx)) 50 ml @ 100 mls/hr Q24H IVPB Last administered on 08/20/16 17:13; Admin Dose 100 MLS/HR; Start 08/14/16 at 17:00 Collagenase 1 applic 1 applic DAILY@22 TOP Last administered on 08/21/16 00:21 ; Admin Dose 1 APPLIC; Start 08/15/16 at 22:00 Fentanyl/Dextrose (D5W) 100 ml @ 2.6 mls/hr TITRATE IV Last administered on 01:11; Admin Dose 2.6 MLS/HR; Start 08/15/16 at 19:30 Insulin Glargine (Lantus) 25 unit QAM SC Last administered on 08/20/16 09:23; Admin Dose 25 UNIT; Start 08/18/16 at 09:00 SADIA LONDON M.D. Aug 21, 2016 08:44
[2016-08-21] MEDS: ASPIRIN 81 MG TAB GTB SCH (09:16)
[2016-08-21] MEDS: ALBUMIN HUMAN 25% 100 ML IV PRN (09:16)
[2016-08-21] MEDS: LACTOBACILLUS CHEW TAB GTB SCH (09:17)
[2016-08-21] MEDS: METHYLPREDNISOLONE 40 MG INJ IV SCH (09:17)
[2016-08-21] MEDS: MULTIVIT/CA CARB/B CMPLX/FA TAB GTB SCH (09:17)
[2016-08-21] MEDS: DULOXETINE 30 MG CAP DR GTB SCH (09:17)
[2016-08-21] MEDS: FLUTICASONE 0.05% 16 GM NAS SPRAY NASAL SCH ×2 (09:24→21:46)
[2016-08-21] MEDS: INSULIN GLARGINE [LANtus] 3 ML PEN SC SCH (09:24)
--- NOTE | 2016-08-21 09:54 | CONS ---
Date/Time of Note Date/Time of Note DATE: 08/21/16 TIME: 09:53 Consult Date/Type/Reason Admit Date/Time Jul 26, 2016 at 01:55 Initial Consult Date 07/29/16 Type of Consultation: pulmonary Ordering Provider: GRACIE KATHLEEN Subjective No significant changes remains orally intubated on mechanical ventilation Objective Vital Signs Date Time Temp Pulse Resp B/P Pulse Ox O2 Delivery O2 Flow Rate FiO2 08/21/16 09:30 93 20 95/50 98 Mechanical Ventilator 08/21/16 08:00 97.5 08/21/16 05:13 40 Intake and Output 08/20/16 08/20/16 08/21/16 14:59 22:59 06:59 Intake Total 800 ml 557 ml 598 ml Output Total 0 ml 0 ml Balance 800 ml 557 ml 598 ml GENERAL: Elderly gentleman on mechanical ventilation VITAL SIGNS: per chart NECK: Supple. No JVD or lymphadenopathy. CARDIAC EXAM: S1, S2. No added sounds or murmurs. CHEST: Diminished air entry bilaterally ABDOMEN: Soft, nontender. No guarding or rebound. EXTREMITIES: No cyanosis, clubbing or edema. NEUROLOGIC: Generalized weakness. No focal deficits. Results/Medications Result Diagram: 08/20/16 0412 08/20/16 0412 Results 24 hrs Laboratory Tests Test 08/20/16 13:01 08/20/16 17:19 08/20/16 21:05 08/21/16 00:21 Bedside Glucose 238 H 249 H 192 192 Test 08/21/16 04:00 08/21/16 05:41 08/21/16 09:21 INR International Normalized Ratio 1.42 Prothrombin Time 17.4 H Prothrombin Time Ratio 1.4 Bedside Glucose 186 181 Medications Current Medications Fluticasone Propionate (Flonase 0.05% Nasal) 1 spray BID NASAL Last administered on 08/21/16 09:24; Admin Dose 1 SPRAY; Start 07/26/16 at 10:00 Epoetin [place] (Epogen (Esrd)) 10,000 units MoWeFr@17 SC Last administered on 08/20 17:15; Admin Dose 10,000 UNITS; Start 07/27/16 at 17:00; Status Future hold Hydralazine HCl 10 mg 10 mg Q6H PRN IV ELEVATED BLOOD PRESSURE Last administered on 08/15/16 15:37; Admin Dose 10 MG; Start 07/29/16 at 13:00 Midazolam HCl/ Dextrose (Versed/D5W) 50 ml @ 1 mls/hr TITRATE IV Last administered on 08/21/16 01:13; Admin Dose 6 MLS/HR; Start 08/01/16 at 23:00 Acetaminophen (Tylenol Tab) 650 mg Q6H PRN GTB PAIN1-3/FEVER ABOVE 100 Last administered on 08/12/16 06:07; Admin Dose 650 MG; Start 08/02/16 at 15:00 Atorvastatin Calcium (Lipitor) 40 mg HS GTB Last administered on 08/20/16 21:04 ; Admin Dose 40 MG; Start 08/02/16 at 21:00 Carvedilol (Coreg) 6.25 mg BID GTB ; Start 08/02/16 at 09:00; Status Future Hold Duloxetine HCl (Cymbalta) 90 mg DAILY GTB Last administered on 08/21/16 09:17; Admin Dose 90 MG; Start 08/02/16 at 09:00 Guaifenesin (Robitussin Liquid Cup) 100 mg Q4 PRN GTB COUGH; Start 08/02/16 at 09:00 Acetaminophen/ Hydrocodone Bitart ([place] (5/325)) 1 tab Q4 PRN GTB WSOB Last administered on 08/08/16at 09:01; Admin Dose 1 TAB; Start 08/02/16 at 09:00 Lactobacillus Acidoph/Bulgaricus (Floranex) 1 tab DAILY GTB Last administered on 08/21/16 09:17; Admin Dose 1 TAB; Start 08/02/16 at 09:00 Lorazepam (Ativan) 1 mg Q6H PRN GTB ANXIETY Last administered on 08/18/16at 10: 45; Admin Dose 1 MG; Start 08/02/16 at 09:00 Multivit/Ca Carb/ B Cmplx/FA/Prenat (Cheryl-Darcie) 1 tab DAILY GTB Last administered on 08/21/16 09:17; Admin Dose 1 TAB; Start 08/02/16 at 09:00 Aspirin (Aspirin) 81 mg DAILY GTB Last administered on 08/21/16 09:16; Admin Dose 81 MG; Start 08/02/16 at 09:00 Lansoprazole 30 mg 30 mg DAILY@06 GTB Last administered on 08/21/16 05:43; Admin Dose 30 MG; Start 08/02/16 at 10:00 Phenylephrine HCl 80 mg/Dextrose 250 ml @ 18.75 mls/ hr TITRATE IV ; Start at 12:30 Norepinephrine/ Dextrose (Levophed/D5W) 500 ml @ 1.87 mls/hr TITRATE IV Last administered on 08/16/16at 01:50; Admin Dose 3.75 MLS/HR; Start 08/05/16 at 12: 00 Vancomycin HCl (Vancomycin Oral Syringe) 125 mg Q6 NGT Last administered on 08/21 05:43; Admin Dose 125 MG; Start 08/06/16 at 18:00 Sildenafil Citrate (Revatio) 20 mg BID PO Last administered on 08/11/16at 11:56 ; Admin Dose 20 MG; Start 08/08/16 at 21:00; Status Future Hold Lorazepam (Ativan) 0.5 mg Q4 PRN IV ANXIETY Last administered on 08/09/16at 10: 51; Admin Dose 0.5 MG; Start 08/09/16 at 00:00 Methylprednisolone Sodium Succinate (Solu-Medrol) 20 mg DAILY IV Last administered on 08/21/16 09:17; Admin Dose 20 MG; Start 08/10/16 at 09:00 Miscellaneous Information 1 ea NOTE XX ; Start 08/11/16 at 12:00 Glucose (Glutose) 15 gm Q15M PRN PO DECREASED GLUCOSE; Start 08/11/16 at 12:00 Glucose (Glutose) 22.5 gm Q15M PRN PO DECREASED GLUCOSE; Start 08/11/16 at 12: 00 Dextrose (D50w Syringe) 25 ml Q15M PRN IV DECREASED GLUCOSE Last administered on 08/17/16at 12:42; Admin Dose 25 ML; Start 08/11/16 at 12:00 Dextrose (D50w Syringe) 50 ml Q15M PRN IV DECREASED GLUCOSE; Start 08/11/16 at 12:00 Glucagon (Glucagen) 1 mg Q15M PRN IM DECREASED GLUCOSE; Start 08/11/16 at 12: 00 Glucose 15 gm 15 gm Q15M PRN BUCCAL DECREASED GLUCOSE; Start 08/11/16 at 12:00 Caspofungin/ Sodium Chloride (Cancidas/NS) 250 ml @ 250 mls/hr Q24H IVPB Last administered on 08/20/16 13:03; Admin Dose 250 MLS/HR; Start 08/12/16 at 14:00 Insulin Aspart (Novolog Insulin Pen) NOVOLOG *MODERATE* ALGORI... Q4 SC Last administered on 08/21/16 09:24; Admin Dose 4 UNIT; Start 08/11/16 at 17:00 IV Flush 10 ml 10 ml PRN PRN IV IV PROTOCOL; Start 08/13/16 at 18:00 Cefazolin Sodium (Ancef 1 Gm/50 ml (Pmx)) 50 ml @ 100 mls/hr Q24H IVPB Last administered on 08/20/16 17:13; Admin Dose 100 MLS/HR; Start 08/14/16 at 17:00 Collagenase 1 applic 1 applic DAILY@22 TOP Last administered on 08/21/16 00:21 ; Admin Dose 1 APPLIC; Start 08/15/16 at 22:00 Fentanyl/Dextrose (D5W) 100 ml @ 2.6 mls/hr TITRATE IV Last administered on 01:11; Admin Dose 2.6 MLS/HR; Start 08/15/16 at 19:30 Insulin Glargine (Lantus) 25 unit QAM SC Last administered on 08/21/16 09:24; Admin Dose 25 UNIT; Start 08/18/16 at 09:00 Assessment/Plan Chief Complaint/Hosp Course assessment 1. Hypoxemic resp failure, pending tracheostomy 2. Pulm edema, right lower lobe infiltrate, possible aspiration pneumonia. 3. Encephalopathy toxic metabolic 4. Diastolic dysf ? 5. Persistent leukocytosis likely polymicrobial sepsis 6. End-stage renal failure on hemodialysis Plan 1. Continue Vent, pending tracheostomy 2. Hemodialysis per nephrology 3, Aspiration precautions 4. DVT / GI prophylaxis. 5. Continue broad-spectrum antibiotics per ID d/w staff CODE STATUS DNR Transfer to telemetry following tracheostomy Problems: VALERIE CAMARENA MD, [facility] Aug 21, 2016 09:54
--- NOTE | 2016-08-21 11:01 | PN ---
Date/Time of Note Date/Time of Note DATE: 08/21/16 TIME: 11:00 Assessment/Plan VTE Prophylaxis VTE Prophylaxis Intervention: other Lines/Catheters IV [facility]ter Type (from [facility]): PICC Line Central line still needed: Yes Assessment/Plan Chief Complaint/Hosp Course 1. Acute respiratory failure - had to be reintubated, probably will need subacute, trach 2. Possible pneumonia- right lower lobe infiltrate- possible aspiration pneumonia per Pulmonary. Sputum grew 08/02 rare jerry albicans - per Dr. Reardon in infectious disease consultation. 3. Early sepsis d/t C diff - recurrent leukocytosis improving and low grade fever resolving. 4. End-stage renal disease hemodialysis dependent. - on HD - per Dr. Bassett in nephrology consultation 5. Diastolic congestive heart failure. Continue to remove fluid was hemodialysis. 6. Partial right internal jugular DVT. Continue Coumadin. Continue daily PT PTT. 7. C diff stool - per ID - on po Vanco - contact isolation 8. RUE cellulitis with axillary/cephalic venous thrombosis - PER id 9. Hyperglycemia- GLYCEMIC Control- stable 10. Toxic metabolic encephalopathy 11. Osteoporosis. 12. Pulmonary hypertension. Continue sildenafil. 13. Coronary artery disease with history of PCI. 14. Depression. Continue Cymbalta 15. History of left hip fracture, treated conservatively. Problems: Subjective 24 Hr Interval Summary Free Text/Dictation Patient is sedated, intubated Exam/Review of Systems Vital Signs Vitals Vital Signs Date Time Temp Pulse Resp B/P Pulse Ox O2 Delivery O2 Flow Rate FiO2 08/21/16 10:02 93 20 08/21/16 09:30 95/50 98 Mechanical Ventilator 08/21/16 08:00 40 08/21/16 08:00 97.5 Intake and Output 08/20/16 08/20/16 08/21/16 15:00 23:00 07:00 Intake Total 799 ml 551 ml 552 ml Output Total 0 ml 0 ml Balance 799 ml 551 ml 552 ml Exam Constitutional: well developed Head: atraumatic, normocephalic Neck: supple Respiratory: diminished breath sounds Cardiovascular: regular rate and rhythm Gastrointestinal: non-tender, soft Extremities: normal pulses Results Result Diagram: 08/20/16 0412 08/20/16 0412 Results 24 hrs Laboratory Tests Test 08/20/16 13:01 1/2/17 17:19 08/20/16 21:05 08/21/16 00:21 Bedside Glucose 238 H 249 H 192 192 Test 08/21/16 04:00 08/21/16 05:41 08/21/16 09:21 INR International Normalized Ratio 1.42 Prothrombin Time 17.4 H Prothrombin Time Ratio 1.4 Bedside Glucose 186 181 Medications Medications Current Medications Fluticasone Propionate (Flonase 0.05% Nasal) 1 spray BID NASAL Last administered on 08/21/16 09:24; Admin Dose 1 SPRAY; Start 07/26/16 at 10:00 Epoetin [place] (Epogen (Esrd)) 10,000 units MoWeFr@17 SC Last administered on 08/20 17:15; Admin Dose 10,000 UNITS; Start 07/27/16 at 17:00; Status Future hold Hydralazine HCl 10 mg 10 mg Q6H PRN IV ELEVATED BLOOD PRESSURE Last administered on 08/15/16at 15:37; Admin Dose 10 MG; Start 07/29/16 at 13:00 Midazolam HCl/ Dextrose (Versed/D5W) 50 ml @ 1 mls/hr TITRATE IV Last administered on 08/21/16 01:13; Admin Dose 6 MLS/HR; Start 08/01/16 at 23:00 Acetaminophen (Tylenol Tab) 650 mg Q6H PRN GTB PAIN1-3/FEVER ABOVE 100 Last administered on 08/12/16at 06:07; Admin Dose 650 MG; Start 08/02/16 at 15:00 Atorvastatin Calcium (Lipitor) 40 mg HS GTB Last administered on 08/20/16 21:04 ; Admin Dose 40 MG; Start 08/02/16 at 21:00 Carvedilol (Coreg) 6.25 mg BID GTB ; Start 08/02/16 at 09:00; Status Future Hold Duloxetine HCl (Cymbalta) 90 mg DAILY GTB Last administered on 08/21/16 09:17; Admin Dose 90 MG; Start 08/02/16 at 09:00 Guaifenesin (Robitussin Liquid Cup) 100 mg Q4 PRN GTB COUGH; Start 08/02/16 at 09:00 Acetaminophen/ Hydrocodone Bitart ([place] (5/325)) 1 tab Q4 PRN GTB WSOB Last administered on 08/08/16at 09:01; Admin Dose 1 TAB; Start 08/02/16 at 09:00 Lactobacillus Acidoph/Bulgaricus (Floranex) 1 tab DAILY GTB Last administered on 08/21/16 09:17; Admin Dose 1 TAB; Start 08/02/16 at 09:00 Lorazepam (Ativan) 1 mg Q6H PRN GTB ANXIETY Last administered on 08/18/16at 10: 45; Admin Dose 1 MG; Start 08/02/16 at 09:00 Multivit/Ca Carb/ B Cmplx/FA/Prenat (Cheryl-Darcie) 1 tab DAILY GTB Last administered on 08/21/16 09:17; Admin Dose 1 TAB; Start 08/02/16 at 09:00 Aspirin (Aspirin) 81 mg DAILY GTB Last administered on 08/21/16 09:16; Admin Dose 81 MG; Start 08/02/16 at 09:00 Lansoprazole 30 mg 30 mg DAILY@06 GTB Last administered on 08/21/16 05:43; Admin Dose 30 MG; Start 08/02/16 at 10:00 Phenylephrine HCl 80 mg/Dextrose 250 ml @ 18.75 mls/ hr TITRATE IV ; Start at 12:30 Norepinephrine/ Dextrose (Levophed/D5W) 500 ml @ 1.87 mls/hr TITRATE IV Last administered on 08/16/16at 01:50; Admin Dose 3.75 MLS/HR; Start 08/05/16 at 12: 00 Vancomycin HCl (Vancomycin Oral Syringe) 125 mg Q6 NGT Last administered on 08/21 05:43; Admin Dose 125 MG; Start 08/06/16 at 18:00 Sildenafil Citrate (Revatio) 20 mg BID PO Last administered on 08/11/16at 11:56 ; Admin Dose 20 MG; Start 08/08/16 at 21:00; Status Future Hold Lorazepam (Ativan) 0.5 mg Q4 PRN IV ANXIETY Last administered on 08/09/16at 10: 51; Admin Dose 0.5 MG; Start 08/09/16 at 00:00 Methylprednisolone Sodium Succinate (Solu-Medrol) 20 mg DAILY IV Last administered on 08/21/16 09:17; Admin Dose 20 MG; Start 12/23/16 at 09:00 Miscellaneous Information 1 ea NOTE XX ; Start 08/11/16 at 12:00 Glucose (Glutose) 15 gm Q15M PRN PO DECREASED GLUCOSE; Start 08/11/16 at 12:00 Glucose (Glutose) 22.5 gm Q15M PRN PO DECREASED GLUCOSE; Start 08/11/16 at 12: 00 Dextrose (D50w Syringe) 25 ml Q15M PRN IV DECREASED GLUCOSE Last administered on 08/17/16at 12:42; Admin Dose 25 ML; Start 08/11/16 at 12:00 Dextrose (D50w Syringe) 50 ml Q15M PRN IV DECREASED GLUCOSE; Start 08/11/16 at 12:00 Glucagon (Glucagen) 1 mg Q15M PRN IM DECREASED GLUCOSE; Start 08/11/16 at 12: 00 Glucose 15 gm 15 gm Q15M PRN BUCCAL DECREASED GLUCOSE; Start 08/11/16 at 12:00 Caspofungin/ Sodium Chloride (Cancidas/NS) 250 ml @ 250 mls/hr Q24H IVPB Last administered on 08/20/16 13:03; Admin Dose 250 MLS/HR; Start 08/12/16 at 14:00 Insulin Aspart (Novolog Insulin Pen) NOVOLOG *MODERATE* ALGORI... Q4 SC Last administered on 08/21/16 09:24; Admin Dose 4 UNIT; Start 08/11/16 at 17:00 IV Flush 10 ml 10 ml PRN PRN IV IV PROTOCOL; Start 08/13/16 at 18:00 Cefazolin Sodium (Ancef 1 Gm/50 ml (Pmx)) 50 ml @ 100 mls/hr Q24H IVPB Last administered on 08/20/16 17:13; Admin Dose 100 MLS/HR; Start 08/14/16 at 17:00 Collagenase 1 applic 1 applic DAILY@22 TOP Last administered on 08/21/16 00:21 ; Admin Dose 1 APPLIC; Start 08/15/16 at 22:00 Fentanyl/Dextrose (D5W) 100 ml @ 2.6 mls/hr TITRATE IV Last administered on 01:11; Admin Dose 2.6 MLS/HR; Start 08/15/16 at 19:30 Insulin Glargine (Lantus) 25 unit QAM SC Last administered on 08/21/16 09:24; Admin Dose 25 UNIT; Start 08/18/16 at 09:00 LESLIE PEDROZA Aug 21, 2016 11:01
--- NOTE | 2016-08-21 11:07 | CONS ---
DATE OF ADMISSION: 07/26/2016 DATE OF CONSULTATION: TYPE OF CONSULTATION: Nephrology. SUBJECTIVE: The patient remains intubated and sedated in the ICU. He remains hemodynamically stabl e. He is currently on dialysis. There is as of yet. No notes regarding the planned tracheostomy and PEG placement that has been dis cussed over the last several days. PHYSICAL EXAMINATION: VITAL SIGNS: He is afebrile. Blood pressure is 130/60, heart rate 72 and regular, respirations are controlled on the vent. O2 saturation is 100% on FIO2 of 40. SKIN: No new rashes. HEENT: Head: ET tube in place. LUNGS: Clear. HEART: S1, S2, regular rate and rhythm. ABDOMEN: Soft and nontender. EXTREMITIES: Well-functioning left upper extremity AV fistula. INR is 1.42, glucose is 186. PROBLEM LIST: 1. Respiratory failure, remains intubated, no notes regarding planned tracheostomy. 2. Congestive heart failure, resolved, on dialysis. 3. Diabetes mellitus, currently well controlled. 4. Coronary artery disease, asymptomatic and stable hemodynamically. RECOMMENDATIONS: Continue dialysis every Saturday, , and Saturday. Dictated By: MOSES GUAJARDO MD, MM/OLESYA Conf#: [id number] DID#: [id number]
--- NOTE | 2016-08-21 13:26 | CONS ---
Date/Time of Note Date/Time of Note DATE: 08/21/16 TIME: 13:25 Assessment/Plan Assessment/Plan Additional Assessment/Plan Respiratory failure status post intubation Sepsis Minimally elevated troponin DVT Diastolic congestive heart failure End-stage renal disease on hemodialysis CAD with history of PCI Diabetes Peripheral arterial disease with history of amputation Pulmonary hypertension -Blood pressure remains labile, no standing antihypertensives with hydralazine available when necessary. Fluid management via hemodialysis as per our nephrology colleagues. Patient off Coumadin in anticipation of procedure. Consultation Date/Type/Reason Admit Date/Time Jul 26, 2016 at 01:55 Type of Consultation: cv Referring Provider: GRACIE KATHLEEN 24 HR Interval Summary Free Text/Dictation Patient seen and examined Exam/Review of Systems Vital Signs Vitals Vital Signs Date Time Temp Pulse Resp B/P Pulse Ox O2 Delivery O2 Flow Rate FiO2 08/21/16 12:00 90 08/21/16 10:02 20 08/21/16 09:30 95/50 98 Mechanical Ventilator 08/21/16 08:00 40 08/21/16 08:00 97.5 Intake and Output 08/20/16 08/20/16 08/21/16 15:00 23:00 07:00 Intake Total 799 ml 551 ml 552 ml Output Total 0 ml 0 ml Balance 799 ml 551 ml 552 ml Exam Sedated and intubated Head: normocephalic ENMT: intubated Respiratory: other (course breath sounds bilaterally, no wheezing) Cardiovascular: other (S1 and S2 heard), regular rate and rhythm Gastrointestinal: bowel sounds, non-tender, soft Extremities: edema Results Result Diagram: 08/20/16 0412 08/20/16 0412 Results 24 hrs Laboratory Tests Test 08/20/16 17:19 08/20/16 21:05 08/21/16 00:21 08/21/16 04:00 Bedside Glucose 249 H 192 192 INR International Normalized Ratio 1.42 Prothrombin Time 17.4 H Prothrombin Time Ratio 1.4 Test 08/21/16 05:41 08/21/16 09:21 08/21/16 12:47 Bedside Glucose 186 181 150 Medications Medications Current Medications Fluticasone Propionate (Flonase 0.05% Nasal) 1 spray BID NASAL Last administered on 08/21/16t 09:24; Admin Dose 1 SPRAY; Start 07/26/16 at 10:00 Epoetin [place] (Epogen (Esrd)) 10,000 units MoWeFr@17 SC Last administered on 08/20 17:15; Admin Dose 10,000 UNITS; Start 07/27/16 at 17:00; Status Future hold Hydralazine HCl 10 mg 10 mg Q6H PRN IV ELEVATED BLOOD PRESSURE Last administered on 08/15/16 15:37; Admin Dose 10 MG; Start 07/29/16 at 13:00 Midazolam HCl/ Dextrose (Versed/D5W) 50 ml @ 1 mls/hr TITRATE IV Last administered on 08/21/16 01:13; Admin Dose 6 MLS/HR; Start 08/01/16 at 23:00 Acetaminophen (Tylenol Tab) 650 mg Q6H PRN GTB PAIN1-3/FEVER ABOVE 100 Last administered on 08/12/16at 06:07; Admin Dose 650 MG; Start 08/02/16 at 15:00 Atorvastatin Calcium (Lipitor) 40 mg HS GTB Last administered on 08/20/16 21:04 ; Admin Dose 40 MG; Start 08/02/16 at 21:00 Carvedilol (Coreg) 6.25 mg BID GTB ; Start 08/02/16 at 09:00; Status Future Hold Duloxetine HCl (Cymbalta) 90 mg DAILY GTB Last administered on 08/21/16 09:17; Admin Dose 90 MG; Start 08/02/16 at 09:00 Guaifenesin (Robitussin Liquid Cup) 100 mg Q4 PRN GTB COUGH; Start 08/02/16 at 09:00 Acetaminophen/ Hydrocodone Bitart ([place] (5/325)) 1 tab Q4 PRN GTB WSOB Last administered on 08/08/16at 09:01; Admin Dose 1 TAB; Start 08/02/16 at 09:00 Lactobacillus Acidoph/Bulgaricus (Floranex) 1 tab DAILY GTB Last administered on 08/21/16 09:17; Admin Dose 1 TAB; Start 08/02/16 at 09:00 Lorazepam (Ativan) 1 mg Q6H PRN GTB ANXIETY Last administered on 08/18/16at 10: 45; Admin Dose 1 MG; Start 08/02/16 at 09:00 Multivit/Ca Carb/ B Cmplx/FA/Prenat (Cheryl-Darcie) 1 tab DAILY GTB Last administered on 08/21/16 09:17; Admin Dose 1 TAB; Start 08/02/16 at 09:00 Aspirin (Aspirin) 81 mg DAILY GTB Last administered on 08/21/16 09:16; Admin Dose 81 MG; Start 08/02/16 at 09:00 Lansoprazole 30 mg 30 mg DAILY@06 GTB Last administered on 08/21/16 05:43; Admin Dose 30 MG; Start 08/02/16 at 10:00 Phenylephrine HCl 80 mg/Dextrose 250 ml @ 18.75 mls/ hr TITRATE IV ; Start at 12:30 Norepinephrine/ Dextrose (Levophed/D5W) 500 ml @ 1.87 mls/hr TITRATE IV Last administered on 08/16/16at 01:50; Admin Dose 3.75 MLS/HR; Start 08/05/16 at 12: 00 Vancomycin HCl (Vancomycin Oral Syringe) 125 mg Q6 NGT Last administered on 08/21 12:50; Admin Dose 125 MG; Start 08/06/16 at 18:00 Sildenafil Citrate (Revatio) 20 mg BID PO Last administered on 08/11/16at 11:56 ; Admin Dose 20 MG; Start 08/08/16 at 21:00; Status Future Hold Lorazepam (Ativan) 0.5 mg Q4 PRN IV ANXIETY Last administered on 08/09/16at 10: 51; Admin Dose 0.5 MG; Start 08/09/16 at 00:00 Methylprednisolone Sodium Succinate (Solu-Medrol) 20 mg DAILY IV Last administered on 08/21/16 09:17; Admin Dose 20 MG; Start 08/10/16 at 09:00 Miscellaneous Information 1 ea NOTE XX ; Start 08/11/16 at 12:00 Glucose (Glutose) 15 gm Q15M PRN PO DECREASED GLUCOSE; Start 08/11/16 at 12:00 Glucose (Glutose) 22.5 gm Q15M PRN PO DECREASED GLUCOSE; Start 08/11/16 at 12: 00 Dextrose (D50w Syringe) 25 ml Q15M PRN IV DECREASED GLUCOSE Last administered on 08/17/16at 12:42; Admin Dose 25 ML; Start 08/11/16 at 12:00 Dextrose (D50w Syringe) 50 ml Q15M PRN IV DECREASED GLUCOSE; Start 08/11/16 at 12:00 Glucagon (Glucagen) 1 mg Q15M PRN IM DECREASED GLUCOSE; Start 08/11/16 at 12: 00 Glucose 15 gm 15 gm Q15M PRN BUCCAL DECREASED GLUCOSE; Start 08/11/16 at 12:00 Caspofungin/ Sodium Chloride (Cancidas/NS) 250 ml @ 250 mls/hr Q24H IVPB Last administered on 08/20/16 13:03; Admin Dose 250 MLS/HR; Start 08/12/16 at 14:00 Insulin Aspart (Novolog Insulin Pen) NOVOLOG *MODERATE* ALGORI... Q4 SC Last administered on 08/21/16 12:51; Admin Dose 2 UNIT; Start 08/11/16 at 17:00 IV Flush 10 ml 10 ml PRN PRN IV IV PROTOCOL; Start 08/13/16 at 18:00 Cefazolin Sodium (Ancef 1 Gm/50 ml (Pmx)) 50 ml @ 100 mls/hr Q24H IVPB Last administered on 08/20/16 17:13; Admin Dose 100 MLS/HR; Start 08/14/16 at 17:00 Collagenase 1 applic 1 applic DAILY@22 TOP Last administered on 08/21/16 00:21 ; Admin Dose 1 APPLIC; Start 08/15/16 at 22:00 Fentanyl/Dextrose (D5W) 100 ml @ 2.6 mls/hr TITRATE IV Last administered on 01:11; Admin Dose 2.6 MLS/HR; Start 08/15/16 at 19:30 Insulin Glargine (Lantus) 25 unit QAM SC Last administered on 08/21/16 09:24; Admin Dose 25 UNIT; Start 08/18/16 at 09:00 Solo Leon DO Aug 21, 2016 13:26
[2016-08-21] MEDS: CASPOFUNGIN 35 MG in SOD CHLORIDE 0.9% 250 ML IVPB SCH (14:32)
--- NOTE | 2016-08-21 16:48 | CONS ---
DATE OF ADMISSION: 07/26/2016 DATE OF CONSULTATION: 08/21/2016 REASON FOR CONSULTATION: Surgical. HISTORY OF PRESENT ILLNESS: This is a 66-year-old male known to me from the past with a history of peripheral vascular disease status post amputation on dialysis. The patient is now being treated for severe respiratory failure, unable to come off the ventilator. Will be needing a tracheostomy. PAST MEDICAL HISTORY: Significant for hypertension, hyperlipidemia, peripheral vascular disease and renal failure. PAST SURGICAL HISTORY: Amputation. Dialysis access. ALLERGIES: NONE. MEDICATIONS: List reviewed. REVIEW OF SYSTEMS: Unable to be obtained. PHYSICAL EXAMINATION: GENERAL: The patient is intubated. VITAL SIGNS: Blood pressure is 130/60, pulse is 80, respirations 18. CARDIOVASCULAR: Normal S1, S2. LUNGS: Clear. ABDOMEN: Soft. EXTREMITIES: Warm. LABORATORY VALUES: Significant for a white count of 8.4, hemoglobin 8.3, platelet count 84 and INR 1.4. IMPRESSION: 1. Respiratory failure. 2. Coagulopathy. 3. Anemia. RECOMMENDATIONS: We will proceed with placement of a tracheostomy after consent is available. Disc ussed with the referring physicians. Dictated By: SAUL CHAN/NTS Conf#: [id number] DID#: [id number]
[2016-08-21] MEDS: CEFAZOLIN 1 GM/50 ML (PMX) 50 ML IVPB SCH (17:33)
[2016-08-21] MEDS: ATORVASTATIN 40 MG TAB GTB SCH (21:46)
[2016-08-22] VITALS (35 sets, daily range): BP systolic 101–154; BP diastolic 43–69; PULSE 78–99; RESP 17–21
[2016-08-22] MEDS: INSULIN ASPART [NOVOLOG] 3 ML PEN SC SCH ×6 (01:00→21:05)
[2016-08-22] MEDS: ALBUTEROL HFA 8 GM INHALER INH SCH ×4 (01:45→19:21)
[2016-08-22] MEDS: IPRATROPIUM (HFA) 12.9 GM INHALER INH SCH ×4 (01:45→19:21)
[2016-08-22] MEDS: LANSOPRAZOLE 30 MG CAP GTB SCH (04:23)
[2016-08-22] MEDS: VANCOMYCIN HCL 250 MG/5ML POSYG NGT SCH ×3 (04:23→17:08)
[2016-08-22 04:56] LABS: BASOPHILS % 0.1 % (0.0-2.0); EOSINOPHILS % 0.3 % (0.0-7.0); HEMATOCRIT 24.4 % (42.0-52.0); HEMOGLOBIN 8.1 g/dl (14.0-18.0); LYMPHOCYTES # 0.7 10^3/ul (0.8-2.9); LYMPHOCYTES % 9.4 % (15.0-51.0); MEAN CORPUSCULAR HEMOGLOBIN 32.5 pg (29.0-33.0); MEAN CORPUSCULAR HGB CONC 33.1 g/dl (32.0-37.0); MEAN CORPUSCULAR VOLUME 98.1 fl (82.0-101.0); MEAN PLATELET VOLUME 7.8 fl (7.4-10.4); MONOCYTE # 0.4 10^3/ul (0.3-0.9); MONOCYTES % 5.1 % (0.0-11.0); NEUTROPHILS % 85.1 % (39.0-77.0); PLATELET COUNT 69 10^3/UL (140-440); RED BLOOD COUNT 2.48 10^6/ul (4.70-6.10); RED CELL DISTRIBUTION WIDTH 16.8 % (11.5-14.5); UNCORRECTED WBC 7.1 10^3/ul (4.8-10.8); WHITE BLOOD COUNT 7.1 10^3/ul (4.8-10.8)
[2016-08-22 04:59] LABS: POTASSIUM 3.2 mmol/L (3.5-5.1)
[2016-08-22 05:02] LABS: CALCIUM 7.8 mg/dl (8.4-10.2); CREATININE 2.39 mg/dl (0.61-1.24)
[2016-08-22 05:24] LABS: CONDITION 1; LH ANALYZER COMMENTS 1
[2016-08-22] MEDS ORDERED: POTASSIUM CHLORIDE 20 MEQ POWDER FOR ORAL SOLN GTB ONE (07:30)
[2016-08-22] MEDS: MIDAZOLAM 50 MG in DEXTROSE 5% 40 ML IV SCH (07:49)
--- NOTE | 2016-08-22 08:43 | CONS ---
DATE OF ADMISSION: 07/26/2016 DATE OF CONSULTATION: NEPHROLOGY NOTE SUBJECTIVE: The patient remains sedated on the ventilator with stable hemodynamics. OBJECTIVE: VITAL SIGNS: He remains afebrile, blood pressure is 118/70, heart rate is 78 in a sinus rhythm, res pirations are 12, controlled on the vent. O2 saturation is 100% on FIO2 of 40%. SKIN: No new rashes. HEAD: ET tube in place. NECK: No jugular venous distention. LUNGS: Clear. HEART: S1, S2, regular rate and rhythm. ABDOMEN: Soft. EXTREMITIES: Functioning left upper extremity AV fistula. LABORATORY DATA: White count 7.1, hemoglobin 8.1, hematocrit 24.4, platelet count 69,000. Sodium 1 35, potassium 3.2, chloride 95, bicarbonate 27, BUN 49, creatinine 2.39, calcium 7.8, glucose is 153 . PROBLEM LIST: 1. End-stage renal disease, currently on hemodialysis every Saturday, , and Saturday. 2. Mild hypokalemia post dialysis. 3. Developing thrombocytopenia, rule out due to antibiotics and antifungal agents: Doubt this is h eparin-induced as the patient has had stable platelet count on dialysis for years. 4. Congestive heart failure since resolved. 5. Status post left below-knee amputation. 6. Respiratory failure, awaiting trach. RECOMMENDATIONS: 1. Careful potassium replacement. 2. Follow up on thrombocytopenia per primary care doctor. 3. Dialysis for the morning. Dictated By: MOSES UGAJARDO MD, MM/NTS Conf#: [id number] DID#: [id number]
[2016-08-22] MEDS: DULOXETINE 30 MG CAP DR GTB SCH (08:49)
[2016-08-22] MEDS: MULTIVIT/CA CARB/B CMPLX/FA TAB GTB SCH (08:49)
[2016-08-22] MEDS: METHYLPREDNISOLONE 40 MG INJ IV SCH (08:49)
[2016-08-22] MEDS: LACTOBACILLUS CHEW TAB GTB SCH (08:51)
[2016-08-22] MEDS: ASPIRIN 81 MG TAB GTB SCH (08:51)
[2016-08-22] MEDS: FLUTICASONE 0.05% 16 GM NAS SPRAY NASAL SCH ×2 (08:52→20:57)
[2016-08-22] MEDS: INSULIN GLARGINE [LANtus] 3 ML PEN SC SCH (08:57)
--- NOTE | 2016-08-22 09:13 | CONS ---
Date/Time of Note Date/Time of Note DATE: 08/22/16 TIME: 09:12 Assessment/Plan Assessment/Plan Chief Complaint/Hosp Course assessment/impression: - acute hypoxemic respiratory failure, intubated 07/31 and reintubated 08/15. - h/o aspiration PNA: respiratory Cx on 08/10 grew MSSA and C. 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 - PAD s/p BKA - underlying Parkinson's disease - Stage 2 coccyx decub - PCN allergic - s/p imipenem (08/05- 08/14), IV vanco (07/29-08/13), aztreonam (07/29-08/05) Problems: Additional Assessment/Plan recommendations: - Continue IV cefazolin x 14 days (08/14/16-) - Continue PO vancomycin via OGT (07/1916-) for duration of systemic antibiotic and then up to 10 days thereafter - Continue caspofungin (08/12/16-) empirically based on several risk factors for invasive candidiasis: borderline positive beta D glucan, receipt of broad spectrum antibacterial agents and colonization of the airway due to jerry, recommended duration of 14 days - I recommend d/c rectal tube if stool output is minimal the critical care time I took to care for this Pt today was from 0830 to 0905 Consultation Date/Type/Reason Admit Date/Time Jul 26, 2016 at 01:55 Initial Consult Date 07/29/16 Type of Consultation: ID Referring Provider: GRACIE KATHLEEN 24 HR Interval Summary Subjective hx not possible: pt non-verbal Exam/Review of Systems Vital Signs Vitals Vital Signs Date Time Temp Pulse Resp B/P Pulse Ox O2 Delivery O2 Flow Rate FiO2 08/22/16 07:00 80 20 118/56 100 Mechanical Ventilator 08/22/16 07:00 97.8 08/22/16 05:54 40 Intake and Output 08/21/16 08/21/16 08/22/16 15:00 23:00 07:00 Intake Total 1091 ml 771 ml 309 ml Output Total 1200 ml 0 ml Balance -109 ml 771 ml 309 ml Exam Constitutional: frail, non-verbal Psych: confusion Head: atraumatic, normocephalic Eyes: nl conjunctiva, nl lids, nl sclera ENMT: intubated, nl external ears & nose, other (NGT) Respiratory: diminished breath sounds Cardiovascular: nl pulses, regular rate and rhythm Gastrointestinal: non-tender, other (RT), soft Musculoskeletal: other (s/p L BKA) Extremities: edema Neurological: confused, unresponsive Skin: ecchymosis Results Result Diagram: 08/22/16 0400 08/22/16 0400 Results 24 hrs Laboratory Tests Test 08/21/16 09:21 08/21/16 12:47 08/21/16 17:36 08/21/16 21:46 Bedside Glucose 181 150 239 H 141 Test 08/22/16 04:00 08/22/16 04:04 08/22/16 08:56 Anion Gap 16 Basophils # 0.0 Basophils % 0.1 Blood Morphology Comment Blood Urea Nitrogen 49 H Calcium Level 7.8 L Carbon Dioxide Level 27 Chloride Level 95 L Creatinine 2.39 H Eosinophils # 0.0 Eosinophils % 0.3 Glucose Level 142 Hematocrit 24.4 L Hemoglobin 8.1 L Lymphocytes # 0.7 L Lymphocytes % 9.4 L Mean Corpuscular Hemoglobin 32.5 Mean Corpuscular Hemoglobin Concent 33.1 Mean Corpuscular Volume 98.1 Mean Platelet Volume 7.8 Monocytes # 0.4 Monocytes % 5.1 Neutrophils # 6.0 Neutrophils % 85.1 H Nucleated Red Blood Cells # 0.0 Nucleated Red Blood Cells % 0.0 Platelet Count 69 L Potassium Level 3.2 L Red Blood Count 2.48 L Red Cell Distribution Width 16.8 H Sodium Level 135 White Blood Count 7.1 Bedside Glucose 153 127 Medications Medications Current Medications Fluticasone Propionate (Flonase 0.05% Nasal) 1 spray BID NASAL Last administered on 08/22/16 08:52; Admin Dose 1 SPRAY; Start 07/26/16 at 10:00 Epoetin [place] (Epogen (Esrd)) 10,000 units MoWeFr@17 SC Last administered on 08/20 17:15; Admin Dose 10,000 UNITS; Start 07/27/16 at 17:00; Status Future hold Hydralazine HCl 10 mg 10 mg Q6H PRN IV ELEVATED BLOOD PRESSURE Last administered on 08/15/16 15:37; Admin Dose 10 MG; Start 07/29/16 at 13:00 Midazolam HCl/ Dextrose (Versed/D5W) 50 ml @ 1 mls/hr TITRATE IV Last administered on 08/22/16 07:49; Admin Dose 2 MLS/HR; Start 08/01/16 at 23:00 Acetaminophen (Tylenol Tab) 650 mg Q6H PRN GTB PAIN1-3/FEVER ABOVE 100 Last administered on 08/12/16 06:07; Admin Dose 650 MG; Start 08/02/16 at 15:00 Atorvastatin Calcium (Lipitor) 40 mg HS GTB Last administered on 08/21/16 21:46 ; Admin Dose 40 MG; Start 08/02/16 at 21:00 Carvedilol (Coreg) 6.25 mg BID GTB ; Start 08/02/16 at 09:00; Status Future Hold Duloxetine HCl (Cymbalta) 90 mg DAILY GTB Last administered on 08/22/16 08:49; Admin Dose 90 MG; Start 08/02/16 at 09:00 Guaifenesin (Robitussin Liquid Cup) 100 mg Q4 PRN GTB COUGH; Start 08/02/16 at 09:00 Acetaminophen/ Hydrocodone Bitart ([place] (5/325)) 1 tab Q4 PRN GTB WSOB Last administered on 08/08/16at 09:01; Admin Dose 1 TAB; Start 08/02/16 at 09:00 Lactobacillus Acidoph/Bulgaricus (Floranex) 1 tab DAILY GTB Last administered on 08/22/16 08:51; Admin Dose 1 TAB; Start 08/02/16 at 09:00 Lorazepam (Ativan) 1 mg Q6H PRN GTB ANXIETY Last administered on 08/18/16at 10: 45; Admin Dose 1 MG; Start 08/02/16 at 09:00 Multivit/Ca Carb/ B Cmplx/FA/Prenat (Cheryl-Darcie) 1 tab DAILY GTB Last administered on 08/22/16 08:49; Admin Dose 1 TAB; Start 08/02/16 at 09:00 Aspirin (Aspirin) 81 mg DAILY GTB Last administered on 08/22/16 08:51; Admin Dose 81 MG; Start 08/02/16 at 09:00 Lansoprazole 30 mg 30 mg DAILY@06 GTB Last administered on 08/22/16 04:23; Admin Dose 30 MG; Start 08/02/16 at 10:00 Phenylephrine HCl 80 mg/Dextrose 250 ml @ 18.75 mls/ hr TITRATE IV ; Start at 12:30 Norepinephrine/ Dextrose (Levophed/D5W) 500 ml @ 1.87 mls/hr TITRATE IV Last administered on 08/16/16at 01:50; Admin Dose 3.75 MLS/HR; Start 08/05/16 at 12: 00 Vancomycin HCl (Vancomycin Oral Syringe) 125 mg Q6 NGT Last administered on 08/22 04:23; Admin Dose 125 MG; Start 08/06/16 at 18:00 Sildenafil Citrate (Revatio) 20 mg BID PO Last administered on 08/11/16at 11:56 ; Admin Dose 20 MG; Start 08/08/16 at 21:00; Status Future Hold Lorazepam (Ativan) 0.5 mg Q4 PRN IV ANXIETY Last administered on 08/09/16at 10: 51; Admin Dose 0.5 MG; Start 08/09/16 at 00:00 Methylprednisolone Sodium Succinate (Solu-Medrol) 20 mg DAILY IV Last administered on 08/22/16 08:49; Admin Dose 20 MG; Start 08/10/16 at 09:00 Miscellaneous Information 1 ea NOTE XX ; Start 08/11/16 at 12:00 Glucose (Glutose) 15 gm Q15M PRN PO DECREASED GLUCOSE; Start 08/11/16 at 12:00 Glucose (Glutose) 22.5 gm Q15M PRN PO DECREASED GLUCOSE; Start 08/11/16 at 12: 00 Dextrose (D50w Syringe) 25 ml Q15M PRN IV DECREASED GLUCOSE Last administered on 08/17/16at 12:42; Admin Dose 25 ML; Start 08/11/16 at 12:00 Dextrose (D50w Syringe) 50 ml Q15M PRN IV DECREASED GLUCOSE; Start 08/11/16 at 12:00 Glucagon (Glucagen) 1 mg Q15M PRN IM DECREASED GLUCOSE; Start 08/11/16 at 12: 00 Glucose 15 gm 15 gm Q15M PRN BUCCAL DECREASED GLUCOSE; Start 08/11/16 at 12:00 Caspofungin/ Sodium Chloride (Cancidas/NS) 250 ml @ 250 mls/hr Q24H IVPB Last administered on 08/21/16 14:32; Admin Dose 250 MLS/HR; Start 08/12/16 at 14:00 Insulin Aspart (Novolog Insulin Pen) NOVOLOG *MODERATE* ALGORI... Q4 SC Last administered on 08/22/16 04:27; Admin Dose 2 UNIT; Start 08/11/16 at 17:00 IV Flush 10 ml 10 ml PRN PRN IV IV PROTOCOL; Start 08/13/16 at 18:00 Cefazolin Sodium (Ancef 1 Gm/50 ml (Pmx)) 50 ml @ 100 mls/hr Q24H IVPB Last administered on 08/21/16 17:33; Admin Dose 100 MLS/HR; Start 08/14/16 at 17:00 Collagenase 1 applic 1 applic DAILY@22 TOP Last administered on 08/21/16 21:45 ; Admin Dose 1 APPLIC; Start 08/15/16 at 22:00 Fentanyl/Dextrose (D5W) 100 ml @ 2.6 mls/hr TITRATE IV Last administered on 23:20; Admin Dose 2.6 MLS/HR; Start 08/15/16 at 19:30 Insulin Glargine (Lantus) 25 unit QAM SC Last administered on 08/22/16 08:57; Admin Dose 25 UNIT; Start 08/18/16 at 09:00 SADIA LONDON M.D. Aug 22, 2016 09:13
--- NOTE | 2016-08-22 10:28 | RADRPT ---
PROCEDURE: XR Chest 1 View. CLINICAL INDICATION: Shortness of breath TECHNIQUE: AP view of the chest were obtained. COMPARISON: August 18, 2016 FINDINGS: The cardiomediastinal silhouette is within normal limits. Endotracheal and nasogastric tubes are sta ble and appear in grossly appropriate location . The lungs are hypoinflated. Elevation right hemid iaphragm continues to be identified. Interstitial prominence in both lungs is unchanged. Atelectas is is noted at the lung bases. Right-sided PICC line is stable. Osseous structures are intact. IMPRESSION: Hypoinflated lungs with stable elevation of the right hemidiaphragm. Stable mild interstitial prominence in both lungs. Atelectasis at the lung bases. RPTAT: AA .Ishmael Melchor MD, Date Time Electronically viewed and signed by .Ishmael Melchor MD, MD on 08/22/2016 10:28 .P/
--- NOTE | 2016-08-22 10:48 | CONS ---
Date/Time of Note Date/Time of Note DATE: 08/22/16 TIME: 10:46 Consult Date/Type/Reason Admit Date/Time Jul 26, 2016 at 01:55 Initial Consult Date 07/29/16 Type of Consultation: Pulm Ordering Provider: GRACIE KATHLEEN Subjective Comfortable on vent. Objective Vital Signs Date Time Temp Pulse Resp B/P Pulse Ox O2 Delivery O2 Flow Rate FiO2 08/22/16 07:00 80 20 118/56 100 Mechanical Ventilator 08/22/16 07:00 97.8 08/22/16 05:54 40 Intake and Output 08/21/16 08/21/16 08/22/16 15:00 23:00 07:00 Intake Total 1091 ml 771 ml 309 ml Output Total 1200 ml 0 ml Balance -109 ml 771 ml 309 ml GENERAL: Elderly gentleman on mechanical ventilation VITAL SIGNS: per chart NECK: Supple. No JVD or lymphadenopathy. CARDIAC EXAM: S1, S2. No added sounds or murmurs. CHEST: Diminished air entry bilaterally ABDOMEN: Soft, nontender. No guarding or rebound. EXTREMITIES: No cyanosis, clubbing or edema. NEUROLOGIC: Generalized weakness. No focal deficits. Results/Medications Result Diagram: 08/22/16 0400 08/22/16 0400 Results 24 hrs Laboratory Tests Test 08/21/16 12:47 08/21/16 17:36 08/21/16 21:46 08/22/16 04:00 Bedside Glucose 150 239 H 141 Anion Gap 16 Basophils # 0.0 Basophils % 0.1 Blood Morphology Comment Blood Urea Nitrogen 49 H Calcium Level 7.8 L Carbon Dioxide Level 27 Chloride Level 95 L Creatinine 2.39 H Eosinophils # 0.0 Eosinophils % 0.3 Glucose Level 142 Hematocrit 24.4 L Hemoglobin 8.1 L Lymphocytes # 0.7 L Lymphocytes % 9.4 L Mean Corpuscular Hemoglobin 32.5 Mean Corpuscular Hemoglobin Concent 33.1 Mean Corpuscular Volume 98.1 Mean Platelet Volume 7.8 Monocytes # 0.4 Monocytes % 5.1 Neutrophils # 6.0 Neutrophils % 85.1 H Nucleated Red Blood Cells # 0.0 Nucleated Red Blood Cells % 0.0 Platelet Count 69 L Potassium Level 3.2 L Red Blood Count 2.48 L Red Cell Distribution Width 16.8 H Sodium Level 135 White Blood Count 7.1 Test 08/22/16 04:04 08/22/16 08:56 Bedside Glucose 153 127 Medications Current Medications Fluticasone Propionate (Flonase 0.05% Nasal) 1 spray BID NASAL Last administered on 08/22/16 08:52; Admin Dose 1 SPRAY; Start 07/26/16 at 10:00 Epoetin [place] (Epogen (Esrd)) 10,000 units MoWeFr@17 SC Last administered on 08/20 17:15; Admin Dose 10,000 UNITS; Start 07/27/16 at 17:00; Status Future hold Hydralazine HCl 10 mg 10 mg Q6H PRN IV ELEVATED BLOOD PRESSURE Last administered on 08/15/16at 15:37; Admin Dose 10 MG; Start 07/29/16 at 13:00 Midazolam HCl/ Dextrose (Versed/D5W) 50 ml @ 1 mls/hr TITRATE IV Last administered on 08/22/16 07:49; Admin Dose 2 MLS/HR; Start 08/01/16 at 23:00 Acetaminophen (Tylenol Tab) 650 mg Q6H PRN GTB PAIN1-3/FEVER ABOVE 100 Last administered on 08/12/16at 06:07; Admin Dose 650 MG; Start 08/02/16 at 15:00 Atorvastatin Calcium (Lipitor) 40 mg HS GTB Last administered on 08/21/16 21:46 ; Admin Dose 40 MG; Start 08/02/16 at 21:00 Carvedilol (Coreg) 6.25 mg BID GTB ; Start 08/02/16 at 09:00; Status Future Hold Duloxetine HCl (Cymbalta) 90 mg DAILY GTB Last administered on 08/22/16 08:49; Admin Dose 90 MG; Start 08/02/16 at 09:00 Guaifenesin (Robitussin Liquid Cup) 100 mg Q4 PRN GTB COUGH; Start 08/02/16 at 09:00 Acetaminophen/ Hydrocodone Bitart ([place] (5/325)) 1 tab Q4 PRN GTB WSOB Last administered on 08/08/16at 09:01; Admin Dose 1 TAB; Start 08/02/16 at 09:00 Lactobacillus Acidoph/Bulgaricus (Floranex) 1 tab DAILY GTB Last administered on 08/22/16 08:51; Admin Dose 1 TAB; Start 08/02/16 at 09:00 Lorazepam (Ativan) 1 mg Q6H PRN GTB ANXIETY Last administered on 08/18/16at 10: 45; Admin Dose 1 MG; Start 08/02/16 at 09:00 Multivit/Ca Carb/ B Cmplx/FA/Prenat (Cheryl-Darcie) 1 tab DAILY GTB Last administered on 08/22/16 08:49; Admin Dose 1 TAB; Start 08/02/16 at 09:00 Aspirin (Aspirin) 81 mg DAILY GTB Last administered on 08/22/16 08:51; Admin Dose 81 MG; Start 08/02/16 at 09:00 Lansoprazole 30 mg 30 mg DAILY@06 GTB Last administered on 08/22/16 04:23; Admin Dose 30 MG; Start 08/02/16 at 10:00 Phenylephrine HCl 80 mg/Dextrose 250 ml @ 18.75 mls/ hr TITRATE IV ; Start at 12:30 Norepinephrine/ Dextrose (Levophed/D5W) 500 ml @ 1.87 mls/hr TITRATE IV Last administered on 08/16/16at 01:50; Admin Dose 3.75 MLS/HR; Start 08/05/16 at 12: 00 Vancomycin HCl (Vancomycin Oral Syringe) 125 mg Q6 NGT Last administered on 08/22 04:23; Admin Dose 125 MG; Start 08/06/16 at 18:00 Sildenafil Citrate (Revatio) 20 mg BID PO Last administered on 08/11/16at 11:56 ; Admin Dose 20 MG; Start 08/08/16 at 21:00; Status Future Hold Lorazepam (Ativan) 0.5 mg Q4 PRN IV ANXIETY Last administered on 08/09/16at 10: 51; Admin Dose 0.5 MG; Start 08/09/16 at 00:00 Methylprednisolone Sodium Succinate (Solu-Medrol) 20 mg DAILY IV Last administered on 08/22/16 08:49; Admin Dose 20 MG; Start 08/10/16 at 09:00 Miscellaneous Information 1 ea NOTE XX ; Start 08/11/16 at 12:00 Glucose (Glutose) 15 gm Q15M PRN PO DECREASED GLUCOSE; Start 08/11/16 at 12:00 Glucose (Glutose) 22.5 gm Q15M PRN PO DECREASED GLUCOSE; Start 08/11/16 at 12: 00 Dextrose (D50w Syringe) 25 ml Q15M PRN IV DECREASED GLUCOSE Last administered on 08/17/16at 12:42; Admin Dose 25 ML; Start 08/11/16 at 12:00 Dextrose (D50w Syringe) 50 ml Q15M PRN IV DECREASED GLUCOSE; Start 08/11/16 at 12:00 Glucagon (Glucagen) 1 mg Q15M PRN IM DECREASED GLUCOSE; Start 08/11/16 at 12: 00 Glucose 15 gm 15 gm Q15M PRN BUCCAL DECREASED GLUCOSE; Start 08/11/16 at 12:00 Caspofungin/ Sodium Chloride (Cancidas/NS) 250 ml @ 250 mls/hr Q24H IVPB Last administered on 08/21/16 14:32; Admin Dose 250 MLS/HR; Start 08/12/16 at 14:00 Insulin Aspart (Novolog Insulin Pen) NOVOLOG *MODERATE* ALGORI... Q4 SC Last administered on 08/22/16 04:27; Admin Dose 2 UNIT; Start 08/11/16 at 17:00 IV Flush 10 ml 10 ml PRN PRN IV IV PROTOCOL; Start 08/13/16 at 18:00 Cefazolin Sodium (Ancef 1 Gm/50 ml (Pmx)) 50 ml @ 100 mls/hr Q24H IVPB Last administered on 08/21/16 17:33; Admin Dose 100 MLS/HR; Start 08/14/16 at 17:00 Collagenase 1 applic 1 applic DAILY@22 TOP Last administered on 08/21/16 21:45 ; Admin Dose 1 APPLIC; Start 08/15/16 at 22:00 Fentanyl/Dextrose (D5W) 100 ml @ 2.6 mls/hr TITRATE IV Last administered on 23:20; Admin Dose 2.6 MLS/HR; Start 08/15/16 at 19:30 Insulin Glargine (Lantus) 25 unit QAM SC Last administered on 08/22/16 08:57; Admin Dose 25 UNIT; Start 08/18/16 at 09:00 Assessment/Plan Chief Complaint/Hosp Course assessment 1. Hypoxemic resp failure, pending tracheostomy 2. Pulm edema, right lower lobe infiltrate, possible aspiration pneumonia. 3. Encephalopathy toxic metabolic 4. Diastolic dysf ? 5. Persistent leukocytosis likely polymicrobial sepsis 6. End-stage renal failure on hemodialysis 7. Dysphagia pending PEG Plan 1. Continue Vent, pending tracheostomy and PEG 2. Hemodialysis per nephrology 3, Aspiration precautions 4. DVT / GI prophylaxis. 5. Continue broad-spectrum antibiotics per ID d/w staff CODE STATUS DNR Transfer to telemetry following tracheostomy Problems: VALERIE CAMARENA MD, [facility] Aug 22, 2016 10:48
--- NOTE | 2016-08-22 11:42 | PN ---
Date/Time of Note Date/Time of Note DATE: 08/22/16 TIME: 11:41 Assessment/Plan VTE Prophylaxis VTE Prophylaxis Intervention: other Lines/Catheters [facility] PICC Line Central line still needed: Yes Reason Cath still needed: skin wounds contaminated by urine Assessment/Plan Chief Complaint/Hosp Course 1. Acute respiratory failure - had to be reintubated, probably will need subacute, trach 2. Possible pneumonia- right lower lobe infiltrate- possible aspiration pneumonia per Pulmonary. Sputum grew 08/02 rare jerry albicans - per Dr. Reardon in infectious disease consultation. 3. Early sepsis d/t C diff - recurrent leukocytosis improving and low grade fever resolving. 4. End-stage renal disease hemodialysis dependent. - on HD - per Dr. Bassett in nephrology consultation 5. Diastolic congestive heart failure. Continue to remove fluid was hemodialysis. 6. Partial right internal jugular DVT. Continue Coumadin. Continue daily PT PTT. 7. C diff stool - per ID - on po Vanco - contact isolation 8. RUE cellulitis with axillary/cephalic venous thrombosis - PER id 9. Hyperglycemia- GLYCEMIC Control- stable 10. Toxic metabolic encephalopathy 11. Osteoporosis. 12. Pulmonary hypertension. Continue sildenafil. 13. Coronary artery disease with history of PCI. 14. Depression. Continue Cymbalta 15. History of left hip fracture, treated conservatively. Problems: Subjective 24 Hr Interval Summary Free Text/Dictation Patient is sedated and intubated Exam/Review of Systems Vital Signs Vitals Vital Signs Date Time Temp Pulse Resp B/P Pulse Ox O2 Delivery O2 Flow Rate FiO2 08/22/16 08:00 89 08/22/16 08:00 40 08/22/16 07:00 20 118/56 100 Mechanical Ventilator 08/22/16 07:00 97.8 Intake and Output 08/21/16 08/21/16 08/22/16 15:00 23:00 07:00 Intake Total 1091 ml 771 ml 309 ml Output Total 1200 ml 0 ml Balance -109 ml 771 ml 309 ml Exam Constitutional: well developed Head: atraumatic, normocephalic Neck: supple Cardiovascular: regular rate and rhythm Gastrointestinal: non-tender, soft Extremities: normal pulses Results Result Diagram: 08/22/16 0400 08/22/16 0400 Results 24 hrs Laboratory Tests Test 08/21/16 12:47 08/21/16 17:36 08/21/16 21:46 08/22/16 04:00 Bedside Glucose 150 239 H 141 Anion Gap 16 Basophils # 0.0 Basophils % 0.1 Blood Morphology Comment Blood Urea Nitrogen 49 H Calcium Level 7.8 L Carbon Dioxide Level 27 Chloride Level 95 L Creatinine 2.39 H Eosinophils # 0.0 Eosinophils % 0.3 Glucose Level 142 Hematocrit 24.4 L Hemoglobin 8.1 L Lymphocytes # 0.7 L Lymphocytes % 9.4 L Mean Corpuscular Hemoglobin 32.5 Mean Corpuscular Hemoglobin Concent 33.1 Mean Corpuscular Volume 98.1 Mean Platelet Volume 7.8 Monocytes # 0.4 Monocytes % 5.1 Neutrophils # 6.0 Neutrophils % 85.1 H Nucleated Red Blood Cells # 0.0 Nucleated Red Blood Cells % 0.0 Platelet Count 69 L Potassium Level 3.2 L Red Blood Count 2.48 L Red Cell Distribution Width 16.8 H Sodium Level 135 White Blood Count 7.1 Test 08/22/16 04:04 08/22/16 08:56 Bedside Glucose 153 127 Medications Medications Current Medications Fluticasone Propionate (Flonase 0.05% Nasal) 1 spray BID NASAL Last administered on 08/22/16 08:52; Admin Dose 1 SPRAY; Start 07/26/16 at 10:00 Epoetin [place] (Epogen (Esrd)) 10,000 units MoWeFr@17 SC Last administered on 08/20 17:15; Admin Dose 10,000 UNITS; Start 07/27/16 at 17:00; Status Future hold Hydralazine HCl 10 mg 10 mg Q6H PRN IV ELEVATED BLOOD PRESSURE Last administered on 08/15/16at 15:37; Admin Dose 10 MG; Start 07/29/16 at 13:00 Midazolam HCl/ Dextrose (Versed/D5W) 50 ml @ 1 mls/hr TITRATE IV Last administered on 08/22/16 07:49; Admin Dose 2 MLS/HR; Start 08/01/16 at 23:00 Acetaminophen (Tylenol Tab) 650 mg Q6H PRN GTB PAIN1-3/FEVER ABOVE 100 Last administered on 08/12/16at 06:07; Admin Dose 650 MG; Start 08/02/16 at 15:00 Atorvastatin Calcium (Lipitor) 40 mg HS GTB Last administered on 08/21/16 21:46 ; Admin Dose 40 MG; Start 08/02/16 at 21:00 Carvedilol (Coreg) 6.25 mg BID GTB ; Start 08/02/16 at 09:00; Status Future Hold Duloxetine HCl (Cymbalta) 90 mg DAILY GTB Last administered on 08/22/16 08:49; Admin Dose 90 MG; Start 08/02/16 at 09:00 Guaifenesin (Robitussin Liquid Cup) 100 mg Q4 PRN GTB COUGH; Start 08/02/16 at 09:00 Acetaminophen/ Hydrocodone Bitart ([place] (5/325)) 1 tab Q4 PRN GTB [facility]SOB Last administered on 08/08/16at 09:01; Admin Dose 1 TAB; Start 08/02/16 at 09:00 Lactobacillus Acidoph/Bulgaricus (Floranex) 1 tab DAILY GTB Last administered on 08/22/16 08:51; Admin Dose 1 TAB; Start 08/02/16 at 09:00 Lorazepam (Ativan) 1 mg Q6H PRN GTB ANXIETY Last administered on 08/18/16at 10: 45; Admin Dose 1 MG; Start 08/02/16 at 09:00 Multivit/Ca Carb/ B Cmplx/FA/Prenat (Cheryl-Darcie) 1 tab DAILY GTB Last administered on 08/22/16 08:49; Admin Dose 1 TAB; Start 08/02/16 at 09:00 Aspirin (Aspirin) 81 mg DAILY GTB Last administered on 08/22/16 08:51; Admin Dose 81 MG; Start 08/02/16 at 09:00 Lansoprazole 30 mg 30 mg DAILY@06 GTB Last administered on 08/22/16 04:23; Admin Dose 30 MG; Start 08/02/16 at 10:00 Phenylephrine HCl 80 mg/Dextrose 250 ml @ 18.75 mls/ hr TITRATE IV ; Start at 12:30 Norepinephrine/ Dextrose (Levophed/D5W) 500 ml @ 1.87 mls/hr TITRATE IV Last administered on 08/16/16 01:50; Admin Dose 3.75 MLS/HR; Start 08/05/16 at 12: 00 Vancomycin HCl (Vancomycin Oral Syringe) 125 mg Q6 NGT Last administered on 08/22 04:23; Admin Dose 125 MG; Start 08/06/16 at 18:00 Sildenafil Citrate (Revatio) 20 mg BID PO Last administered on 08/11/16at 11:56 ; Admin Dose 20 MG; Start 08/08/16 at 21:00; Status Future Hold Lorazepam (Ativan) 0.5 mg Q4 PRN IV ANXIETY Last administered on 08/09/16at 10: 51; Admin Dose 0.5 MG; Start 08/09/16 at 00:00 Methylprednisolone Sodium Succinate (Solu-Medrol) 20 mg DAILY IV Last administered on 08/22/16 08:49; Admin Dose 20 MG; Start 08/10/16 at 09:00 Miscellaneous Information 1 ea NOTE XX ; Start 08/11/16 at 12:00 Glucose (Glutose) 15 gm Q15M PRN PO DECREASED GLUCOSE; Start 08/11/16 at 12:00 Glucose (Glutose) 22.5 gm Q15M PRN PO DECREASED GLUCOSE; Start 08/11/16 at 12: 00 Dextrose (D50w Syringe) 25 ml Q15M PRN IV DECREASED GLUCOSE Last administered on 08/17/16at 12:42; Admin Dose 25 ML; Start 08/11/16 at 12:00 Dextrose (D50w Syringe) 50 ml Q15M PRN IV DECREASED GLUCOSE; Start 08/11/16 at 12:00 Glucagon (Glucagen) 1 mg Q15M PRN IM DECREASED GLUCOSE; Start 08/11/16 at 12: 00 Glucose 15 gm 15 gm Q15M PRN BUCCAL DECREASED GLUCOSE; Start 08/11/16 at 12:00 Caspofungin/ Sodium Chloride (Cancidas/NS) 250 ml @ 250 mls/hr Q24H IVPB Last administered on 08/21/16 14:32; Admin Dose 250 MLS/HR; Start 08/12/16 at 14:00 Insulin Aspart (Novolog Insulin Pen) NOVOLOG *MODERATE* ALGORI... Q4 SC Last administered on 08/22/16 04:27; Admin Dose 2 UNIT; Start 08/11/16 at 17:00 IV Flush 10 ml 10 ml PRN PRN IV IV PROTOCOL; Start 08/13/16 at 18:00 Cefazolin Sodium (Ancef 1 Gm/50 ml (Pmx)) 50 ml @ 100 mls/hr Q24H IVPB Last administered on 08/21/16 17:33; Admin Dose 100 MLS/HR; Start 08/14/16 at 17:00 Collagenase 1 applic 1 applic DAILY@22 TOP Last administered on 08/21/16 21:45 ; Admin Dose 1 APPLIC; Start 08/15/16 at 22:00 Fentanyl/Dextrose (D5W) 100 ml @ 2.6 mls/hr TITRATE IV Last administered on 23:20; Admin Dose 2.6 MLS/HR; Start 08/15/16 at 19:30 Insulin Glargine (Lantus) 25 unit QAM SC Last administered on 08/22/16 08:57; Admin Dose 25 UNIT; Start 08/18/16 at 09:00 LESLIE PEDROZA Aug 22, 2016 11:42
--- NOTE | 2016-08-22 12:57 | CONS ---
Date/Time of Note Date/Time of Note DATE: 08/22/16 TIME: 12:54 Assessment/Plan Assessment/Plan Additional Assessment/Plan Respiratory failure status post intubation Sepsis Minimally elevated troponin DVT Diastolic congestive heart failure End-stage renal disease on hemodialysis CAD with history of PCI Diabetes Peripheral arterial disease with history of amputation Pulmonary hypertension -Blood pressure remained stable on no IV pressor, awaiting tracheostomy. Anticoagulation on hold. Consultation Date/Type/Reason Admit Date/Time Jul 26, 2016 at 01:55 Type of Consultation: cv Referring Provider: GRACIE KATHLEEN 24 HR Interval Summary Free Text/Dictation Patient seen and examined. Discussed with nursing staff with no current cardiac issues Exam/Review of Systems Vital Signs Vitals Vital Signs Date Time Temp Pulse Resp B/P Pulse Ox O2 Delivery O2 Flow Rate FiO2 08/22/16 12:00 98.8 82 20 131/59 98 Mechanical Ventilator 08/22/16 12:00 30 Intake and Output 08/21/16 08/21/16 08/22/16 15:00 23:00 07:00 Intake Total 1091 ml 771 ml 349 ml Output Total 1200 ml 0 ml Balance -109 ml 771 ml 349 ml Exam Sedated and intubated Head: normocephalic ENMT: intubated Respiratory: other (course breath sounds bilaterally, no wheezing) Cardiovascular: other (S1-S2 heard), regular rate and rhythm Gastrointestinal: bowel sounds, non-tender (no grimace), soft Extremities: edema (trace) Results Result Diagram: 08/22/16 0400 08/22/16 0400 Results 24 hrs Laboratory Tests Test 08/21/16 17:36 08/21/16 21:46 08/22/16 04:00 08/22/16 04:04 Bedside Glucose 239 H 141 153 Anion Gap 16 Basophils # 0.0 Basophils % 0.1 Blood Morphology Comment Blood Urea Nitrogen 49 H Calcium Level 7.8 L Carbon Dioxide Level 27 Chloride Level 95 L Creatinine 2.39 H Eosinophils # 0.0 Eosinophils % 0.3 Glucose Level 142 Hematocrit 24.4 L Hemoglobin 8.1 L Lymphocytes # 0.7 L Lymphocytes % 9.4 L Mean Corpuscular Hemoglobin 32.5 Mean Corpuscular Hemoglobin Concent 33.1 Mean Corpuscular Volume 98.1 Mean Platelet Volume 7.8 Monocytes # 0.4 Monocytes % 5.1 Neutrophils # 6.0 Neutrophils % 85.1 H Nucleated Red Blood Cells # 0.0 Nucleated Red Blood Cells % 0.0 Platelet Count 69 L Potassium Level 3.2 L Red Blood Count 2.48 L Red Cell Distribution Width 16.8 H Sodium Level 135 White Blood Count 7.1 Test 08/22/16 08:56 08/22/16 12:29 Bedside Glucose 127 176 Medications Medications Current Medications Fluticasone Propionate (Flonase 0.05% Nasal) 1 spray BID NASAL Last administered on 08/22/16 08:52; Admin Dose 1 SPRAY; Start 07/26/16 at 10:00 Epoetin [place] (Epogen (Esrd)) 10,000 units MoWeFr@17 SC Last administered on 08/20 17:15; Admin Dose 10,000 UNITS; Start 07/27/16 at 17:00; Status Future hold Hydralazine HCl 10 mg 10 mg Q6H PRN IV ELEVATED BLOOD PRESSURE Last administered on 08/15/16at 15:37; Admin Dose 10 MG; Start 07/29/16 at 13:00 Midazolam HCl/ Dextrose (Versed/D5W) 50 ml @ 1 mls/hr TITRATE IV Last administered on 08/22/16 07:49; Admin Dose 2 MLS/HR; Start 08/01/16 at 23:00 Acetaminophen (Tylenol Tab) 650 mg Q6H PRN GTB PAIN1-3/FEVER ABOVE 100 Last administered on 08/12/16at 06:07; Admin Dose 650 MG; Start 08/02/16 at 15:00 Atorvastatin Calcium (Lipitor) 40 mg HS GTB Last administered on 08/21/16 21:46 ; Admin Dose 40 MG; Start 08/02/16 at 21:00 Carvedilol (Coreg) 6.25 mg BID GTB ; Start 08/02/16 at 09:00; Status Future Hold Duloxetine HCl (Cymbalta) 90 mg DAILY GTB Last administered on 08/22/16 08:49; Admin Dose 90 MG; Start 08/02/16 at 09:00 Guaifenesin (Robitussin Liquid Cup) 100 mg Q4 PRN GTB COUGH; Start 08/02/16 at 09:00 Acetaminophen/ Hydrocodone Bitart ([place] (5/325)) 1 tab Q4 PRN GTB WSOB Last administered on 08/08/16 09:01; Admin Dose 1 TAB; Start 08/02/16 at 09:00 Lactobacillus Acidoph/Bulgaricus (Floranex) 1 tab DAILY GTB Last administered on 08/22/16 08:51; Admin Dose 1 TAB; Start 08/02/16 at 09:00 Lorazepam (Ativan) 1 mg Q6H PRN GTB ANXIETY Last administered on 08/18/16 10: 45; Admin Dose 1 MG; Start 08/02/16 at 09:00 Multivit/Ca Carb/ B Cmplx/FA/Prenat (Cheryl-Darcie) 1 tab DAILY GTB Last administered on 08/22/16 08:49; Admin Dose 1 TAB; Start 08/02/16 at 09:00 Aspirin (Aspirin) 81 mg DAILY GTB Last administered on 08/22/16 08:51; Admin Dose 81 MG; Start 08/02/16 at 09:00 Lansoprazole 30 mg 30 mg DAILY@06 GTB Last administered on 08/22/16 04:23; Admin Dose 30 MG; Start 08/02/16 at 10:00 Phenylephrine HCl 80 mg/Dextrose 250 ml @ 18.75 mls/ hr TITRATE IV ; Start at 12:30 Norepinephrine/ Dextrose (Levophed/D5W) 500 ml @ 1.87 mls/hr TITRATE IV Last administered on 08/16/16 01:50; Admin Dose 3.75 MLS/HR; Start 08/05/16 at 12: 00 Vancomycin HCl (Vancomycin Oral Syringe) 125 mg Q6 NGT Last administered on 08/22 12:29; Admin Dose 125 MG; Start 08/06/16 at 18:00 Sildenafil Citrate (Revatio) 20 mg BID PO Last administered on 08/11/16 11:56 ; Admin Dose 20 MG; Start 08/08/16 at 21:00; Status Future Hold Lorazepam (Ativan) 0.5 mg Q4 PRN IV ANXIETY Last administered on 08/09/16 10: 51; Admin Dose 0.5 MG; Start 08/09/16 at 00:00 Methylprednisolone Sodium Succinate (Solu-Medrol) 20 mg DAILY IV Last administered on 08/22/16 08:49; Admin Dose 20 MG; Start 08/10/16 at 09:00 Miscellaneous Information 1 ea NOTE XX ; Start 08/11/16 at 12:00 Glucose (Glutose) 15 gm Q15M PRN PO DECREASED GLUCOSE; Start 08/11/16 at 12:00 Glucose (Glutose) 22.5 gm Q15M PRN PO DECREASED GLUCOSE; Start 08/11/16 at 12: 00 Dextrose (D50w Syringe) 25 ml Q15M PRN IV DECREASED GLUCOSE Last administered on 08/17/16at 12:42; Admin Dose 25 ML; Start 08/11/16 at 12:00 Dextrose (D50w Syringe) 50 ml Q15M PRN IV DECREASED GLUCOSE; Start 08/11/16 at 12:00 Glucagon (Glucagen) 1 mg Q15M PRN IM DECREASED GLUCOSE; Start 08/11/16 at 12: 00 Glucose 15 gm 15 gm Q15M PRN BUCCAL DECREASED GLUCOSE; Start 08/11/16 at 12:00 Caspofungin/ Sodium Chloride (Cancidas/NS) 250 ml @ 250 mls/hr Q24H IVPB Last administered on 08/21/16 14:32; Admin Dose 250 MLS/HR; Start 08/12/16 at 14:00 Insulin Aspart (Novolog Insulin Pen) NOVOLOG *MODERATE* ALGORI... Q4 SC Last administered on 08/22/16 12:30; Admin Dose 2 UNIT; Start 08/11/16 at 17:00 IV Flush 10 ml 10 ml PRN PRN IV IV PROTOCOL; Start 08/13/16 at 18:00 Cefazolin Sodium (Ancef 1 Gm/50 ml (Pmx)) 50 ml @ 100 mls/hr Q24H IVPB Last administered on 08/21/16 17:33; Admin Dose 100 MLS/HR; Start 08/14/16 at 17:00 Collagenase 1 applic 1 applic DAILY@22 TOP Last administered on 08/21/16 21:45 ; Admin Dose 1 APPLIC; Start 08/15/16 at 22:00 Fentanyl/Dextrose (D5W) 100 ml @ 2.6 mls/hr TITRATE IV Last administered on 23:20; Admin Dose 2.6 MLS/HR; Start 08/15/16 at 19:30 Insulin Glargine (Lantus) 25 unit QAM SC Last administered on 08/22/16t 08:57; Admin Dose 25 UNIT; Start 08/18/16 at 09:00 Solo Leon DO Aug 22, 2016 12:57
[2016-08-22] MEDS: CASPOFUNGIN 35 MG in SOD CHLORIDE 0.9% 250 ML IVPB SCH (14:14)
[2016-08-22 15:02] LABS: INR 1.26; PROTIME 15.9 Sec (12.2-14.2); PT RATIO 1.2
[2016-08-22 15:03] LABS: PARTIAL THROMBOPLASTIN TIME 28.4 Sec (25.0-35.0); THROMBIN TIME 17.5 SEC (13.8-19.1)
[2016-08-22] MEDS: CEFAZOLIN 1 GM/50 ML (PMX) 50 ML IVPB SCH (16:53)
[2016-08-22] MEDS: EPOETIN 10000 UNITS/1 ML INJ (ESRD) SC SCH (16:54)
[2016-08-22] MEDS ORDERED: PHYTONADIONE 10 MG/ML INJ SC ONE (17:00)
[2016-08-22] MEDS: FENTAnyl 1,000 MCG in DEXTROSE 5% 80 ML IV SCH (17:08)
--- NOTE | 2016-08-22 20:02 | PN ---
Date/Time of Note Date/Time of Note DATE: 08/22/16 TIME: 20:01 Assessment/Plan Lines/Catheters IV [facility] Type (from [facility] PICC Line Assessment/Plan Chief Complaint/Hosp Course IMPRESSION: 1. Respiratory failure. 2. Coagulopathy. 3. Anemia. RECOMMENDATIONS: We will proceed with placement of a tracheostomy after consent is available. Discussed with the referring physicians. Problems: Subjective 24 Hr Interval Summary Constitutional: improved Pain Control: mild Exam/Review of Systems Vital Signs Vitals Vital Signs Date Time Temp Pulse Resp B/P Pulse Ox O2 Delivery O2 Flow Rate FiO2 08/22/16 17:50 93 20 100 30 08/22/16 17:00 127/62 Mechanical Ventilator 08/22/16 16:00 98.5 Intake and Output 08/21/16 08/21/16 08/22/16 15:00 23:00 07:00 Intake Total 1091 ml 771 ml 356 ml Output Total 1200 ml 0 ml Balance -109 ml 771 ml 356 ml Exam ENMT: mucosa pink and moist, nl external ears & nose, nl lips & teeth, nl nasal mucosa & septum Neck: non-tender, supple Respiratory: clear to auscultation, normal air movement Cardiovascular: nl pulses, regular rate and rhythm Gastrointestinal: nl liver, spleen, non-tender, soft Results Result Diagram: 08/22/16 1430 08/22/16 0400 SAUL HUMPHREY MD Aug 22, 2016 20:02
--- NOTE | 2016-08-22 20:04 | PN ---
Date/Time of Note Date/Time of Note DATE: 08/22/16 TIME: 20:03 Assessment/Plan Lines/Catheters IV Catheter Type (from [facility]): PICC Line Assessment/Plan Chief Complaint/Hosp Course IMPRESSION: 1. Respiratory failure. 2. Coagulopathy. 3. Anemia. RECOMMENDATIONS: We will proceed with placement of a tracheostomy after consent is available. Discussed with the referring physicians. Problems: Subjective 24 Hr Interval Summary Constitutional: improved Pain Control: mild Exam/Review of Systems Vital Signs Vitals Vital Signs Date Time Temp Pulse Resp B/P Pulse Ox O2 Delivery O2 Flow Rate FiO2 08/22/16 17:50 93 20 100 30 08/22/16 17:00 127/62 Mechanical Ventilator 08/22/16 16:00 98.5 Intake and Output 08/21/16 08/21/16 08/22/16 15:00 23:00 07:00 Intake Total 1091 ml 771 ml 356 ml Output Total 1200 ml 0 ml Balance -109 ml 771 ml 356 ml Exam Neck: non-tender, supple Respiratory: clear to auscultation, normal air movement Cardiovascular: nl pulses, regular rate and rhythm Gastrointestinal: nl liver, spleen, non-tender, soft Results Result Diagram: 08/22/16 1430 08/22/16 0400 MALESAUL LUZ MD Aug 22, 2016 20:04
[2016-08-22] MEDS: ATORVASTATIN 40 MG TAB GTB SCH (20:55)
[2016-08-22] MEDS: COLLAGENASE 30 GM TUBE TOP SCH (21:05)
[2016-08-23] VITALS (57 sets, daily range): BP systolic 88–174; BP diastolic 47–84; PULSE 77–103; RESP 15–23
[2016-08-23] MEDS: VANCOMYCIN HCL 250 MG/5ML POSYG NGT SCH ×4 (00:04→18:20)
[2016-08-23] MEDS: INSULIN ASPART [NOVOLOG] 3 ML PEN SC SCH ×6 (01:00→21:00)
[2016-08-23] MEDS: IPRATROPIUM (HFA) 12.9 GM INHALER INH SCH ×4 (01:21→19:30)
[2016-08-23] MEDS: ALBUTEROL HFA 8 GM INHALER INH SCH ×4 (01:21→19:30)
[2016-08-23 05:18] LABS: BASOPHILS % 0.4 % (0.0-2.0); EOSINOPHILS % 0.2 % (0.0-7.0); HEMATOCRIT 24.7 % (42.0-52.0); HEMOGLOBIN 8.1 g/dl (14.0-18.0); LYMPHOCYTES # 0.8 10^3/ul (0.8-2.9); LYMPHOCYTES % 11.1 % (15.0-51.0); MEAN CORPUSCULAR HEMOGLOBIN 32.5 pg (29.0-33.0); MEAN CORPUSCULAR HGB CONC 32.9 g/dl (32.0-37.0); MEAN CORPUSCULAR VOLUME 98.8 fl (82.0-101.0); MEAN PLATELET VOLUME 7.7 fl (7.4-10.4); MONOCYTE # 0.4 10^3/ul (0.3-0.9); MONOCYTES % 6.1 % (0.0-11.0); NEUTROPHIL # 5.9 10^3/ul (1.6-7.5); NEUTROPHILS % 82.2 % (39.0-77.0); PLATELET COUNT 69 10^3/UL (140-440); RED CELL DISTRIBUTION WIDTH 16.6 % (11.5-14.5); UNCORRECTED WBC 7.2 10^3/ul (4.8-10.8); WHITE BLOOD COUNT 7.2 10^3/ul (4.8-10.8)
[2016-08-23] MEDS: LANSOPRAZOLE 30 MG CAP GTB SCH (05:19)
[2016-08-23 05:23] LABS: POTASSIUM 3.5 mmol/L (3.5-5.1)
[2016-08-23 05:26] LABS: CREATININE 2.67 mg/dl (0.61-1.24)
[2016-08-23 05:27] LABS: CALCIUM 7.3 mg/dl (8.4-10.2); MAGNESIUM 2.1 mg/dl (1.7-2.5); PHOSPHORUS 2.6 mg/dl (2.5-4.9)
[2016-08-23 05:28] LABS: CONDITION 1; LH ANALYZER COMMENTS 1
[2016-08-23] MEDS: FLUTICASONE 0.05% 16 GM NAS SPRAY NASAL SCH ×2 (09:13→21:00)
[2016-08-23] MEDS: LACTOBACILLUS CHEW TAB GTB SCH (09:13)
[2016-08-23] MEDS: INSULIN GLARGINE [LANtus] 3 ML PEN SC SCH (09:13)
[2016-08-23] MEDS: DULOXETINE 30 MG CAP DR GTB SCH (09:13)
[2016-08-23] MEDS: ASPIRIN 81 MG TAB GTB SCH (09:13)
[2016-08-23] MEDS: MULTIVIT/CA CARB/B CMPLX/FA TAB GTB SCH (09:13)
[2016-08-23] MEDS: METHYLPREDNISOLONE 40 MG INJ IV SCH (09:13)
[2016-08-23] MEDS: MIDAZOLAM 50 MG in DEXTROSE 5% 40 ML IV SCH (09:24)
[2016-08-23] MEDS: FENTAnyl 1,000 MCG in DEXTROSE 5% 80 ML IV SCH (09:25)
--- NOTE | 2016-08-23 10:23 | CONS ---
DATE OF ADMISSION: 07/26/2016 DATE OF CONSULTATION: The patient remains clinically stable, sedated, intubated in the intensive care unit with stable vit al signs off any pressors. PHYSICAL EXAMINATION: VITAL SIGNS: His temperature is 99.4, blood pressure 147/63, heart rate is 90 in a sinus rhythm, re spirations are 12 and unlabored, O2 saturation is 100% on FIO2 of 30%. SKIN: No new rashes. LUNGS: Clear. HEART: S1, S2; regular rate and rhythm. ABDOMEN: Soft. EXTREMITIES: Well-functioning left upper extremity AV fistula. LABORATORY DATA: White count 7.2, hemoglobin 8.1, hematocrit 24.7, platelet count is 69,000. INR i s 1.26. Potassium is 3.5 with a glucose of 110. Chest x-ray done yesterday shows normal size heart . ET tube and NG tubes in stable and correct positions. No new infiltrates. PROBLEM LIST 1. Thrombocytopenia, mild and stable, rule out possibly due to current antibiotics: Level is stabl e for 48 hours. 2. End-stage renal disease for planned hemodialysis today. 3. Respiratory failure, ultimately to undergo tracheostomy. 4. History of congestive heart failure in the past, since resolved. RECOMMENDATIONS 1. Dialysis today. 2. Close eye on platelet count. 3. Further recommendations pending response to above. Dictated By: MOSES GUAJARDO MD, MM/OLESYA Conf#: [id number] DID#: [id number]
--- NOTE | 2016-08-23 11:04 | CONS ---
Date/Time of Note Date/Time of Note DATE: 08/23/16 TIME: 11:03 Consult Date/Type/Reason Admit Date/Time Jul 26, 2016 at 01:55 Initial Consult Date 07/29/16 Type of Consultation: pulm Ordering Provider: GRACIE KATHLEEN Subjective No new events Objective Vital Signs Date Time Temp Pulse Resp B/P Pulse Ox O2 Delivery O2 Flow Rate FiO2 08/23/16 10:00 102 20 163/72 100 Mechanical Ventilator 08/23/16 09:00 98.9 08/23/16 08:00 30 Intake and Output 08/22/16 08/22/16 08/23/16 15:00 23:00 07:00 Intake Total 826 ml 524 ml 56 ml Output Total 10 ml 5 ml 50 ml Balance 816 ml 519 ml 6 ml GENERAL: Elderly gentleman on mechanical ventilation VITAL SIGNS: per chart NECK: Supple. No JVD or lymphadenopathy. CARDIAC EXAM: S1, S2. No added sounds or murmurs. CHEST: Diminished air entry bilaterally ABDOMEN: Soft, nontender. No guarding or rebound. EXTREMITIES: No cyanosis, clubbing or edema. NEUROLOGIC: Generalized weakness. No focal deficits. Results/Medications Result Diagram: 08/23/16 0410 08/23/16 0410 Results 24 hrs Laboratory Tests Test 08/22/16 12:29 08/22/16 14:30 08/22/16 16:52 08/22/16 20:55 Bedside Glucose 176 219 145 Activated Partial Thromboplast Time 28.4 INR International Normalized Ratio 1.26 Platelet Count 70 L Prothrombin Time 15.9 H Prothrombin Time Ratio 1.2 Thrombin Time 17.5 Test 08/23/16 01:07 08/23/16 04:10 08/23/16 05:18 08/23/16 09:11 Bedside Glucose 132 110 113 Anion Gap 18 H Basophils # 0.0 Basophils % 0.4 Blood Morphology Comment Blood Urea Nitrogen 67 H Calcium Level 7.3 L Carbon Dioxide Level 24 Chloride Level 96 L Creatinine 2.67 H Eosinophils # 0.0 Eosinophils % 0.2 Glucose Level 108 Hematocrit 24.7 L Hemoglobin 8.1 L Lymphocytes # 0.8 Lymphocytes % 11.1 L Magnesium Level 2.1 Mean Corpuscular Hemoglobin 32.5 Mean Corpuscular Hemoglobin Concent 32.9 Mean Corpuscular Volume 98.8 Mean Platelet Volume 7.7 Monocytes # 0.4 Monocytes % 6.1 Neutrophils # 5.9 Neutrophils % 82.2 H Nucleated Red Blood Cells # 0.0 Nucleated Red Blood Cells % 0.0 Phosphorus Level 2.6 Platelet Count 69 L Potassium Level 3.5 Red Blood Count 2.50 L Red Cell Distribution Width 16.6 H Sodium Level 134 L White Blood Count 7.2 Medications Current Medications Fluticasone Propionate (Flonase 0.05% Nasal) 1 spray BID NASAL Last administered on 08/23/16 09:13; Admin Dose 1 SPRAY; Start 07/26/16 at 10:00 Epoetin [place] (Epogen (Esrd)) 10,000 units MoWeFr@17 SC Last administered on 08/22 16:54; Admin Dose 10,000 UNITS; Start 07/27/16 at 17:00; Status Future hold Hydralazine HCl 10 mg 10 mg Q6H PRN IV ELEVATED BLOOD PRESSURE Last administered on 08/15/16at 15:37; Admin Dose 10 MG; Start 07/29/16 at 13:00 Midazolam HCl/ Dextrose (Versed/D5W) 50 ml @ 1 mls/hr TITRATE IV Last administered on 08/23/16 09:24; Admin Dose 2 MLS/HR; Start 08/01/16 at 23:00 Acetaminophen (Tylenol Tab) 650 mg Q6H PRN GTB PAIN1-3/FEVER ABOVE 100 Last administered on 08/12/16at 06:07; Admin Dose 650 MG; Start 08/02/16 at 15:00 Atorvastatin Calcium (Lipitor) 40 mg HS GTB Last administered on 08/22/16 20:55 ; Admin Dose 40 MG; Start 08/02/16 at 21:00 Carvedilol (Coreg) 6.25 mg BID GTB ; Start 08/02/16 at 09:00; Status Future Hold Duloxetine HCl (Cymbalta) 90 mg DAILY GTB Last administered on 08/23/16 09:13; Admin Dose 90 MG; Start 08/02/16 at 09:00 Guaifenesin (Robitussin Liquid Cup) 100 mg Q4 PRN GTB COUGH; Start 08/02/16 at 09:00 Acetaminophen/ Hydrocodone Bitart ([place] (5/325)) 1 tab Q4 PRN GTB WSOB Last administered on 08/08/16 09:01; Admin Dose 1 TAB; Start 08/02/16 at 09:00 Lactobacillus Acidoph/Bulgaricus (Floranex) 1 tab DAILY GTB Last administered on 08/23/16 09:13; Admin Dose 1 TAB; Start 08/02/16 at 09:00 Lorazepam (Ativan) 1 mg Q6H PRN GTB ANXIETY Last administered on 08/18/16 10: 45; Admin Dose 1 MG; Start 08/02/16 at 09:00 Multivit/Ca Carb/ B Cmplx/FA/Prenat (Cheryl-Darcie) 1 tab DAILY GTB Last administered on 08/23/16 09:13; Admin Dose 1 TAB; Start 08/02/16 at 09:00 Aspirin (Aspirin) 81 mg DAILY GTB Last administered on 08/23/16 09:13; Admin Dose 81 MG; Start 08/02/16 at 09:00 Lansoprazole 30 mg 30 mg DAILY@06 GTB Last administered on 08/23/16 05:19; Admin Dose 30 MG; Start 08/02/16 at 10:00 Phenylephrine HCl 80 mg/Dextrose 250 ml @ 18.75 mls/ hr TITRATE IV ; Start at 12:30 Norepinephrine/ Dextrose (Levophed/D5W) 500 ml @ 1.87 mls/hr TITRATE IV Last administered on 08/16/16 01:50; Admin Dose 3.75 MLS/HR; Start 08/05/16 at 12: 00 Vancomycin HCl (Vancomycin Oral Syringe) 125 mg Q6 NGT Last administered on 08/23 05:37; Admin Dose 125 MG; Start 08/06/16 at 18:00 Sildenafil Citrate (Revatio) 20 mg BID PO Last administered on 08/11/16at 11:56 ; Admin Dose 20 MG; Start 08/08/16 at 21:00; Status Future Hold Lorazepam (Ativan) 0.5 mg Q4 PRN IV ANXIETY Last administered on 08/09/16 10: 51; Admin Dose 0.5 MG; Start 08/09/16 at 00:00 Methylprednisolone Sodium Succinate (Solu-Medrol) 20 mg DAILY IV Last administered on 08/23/16 09:13; Admin Dose 20 MG; Start 08/10/16 at 09:00 Miscellaneous Information 1 ea NOTE XX ; Start 08/11/16 at 12:00 Glucose (Glutose) 15 gm Q15M PRN PO DECREASED GLUCOSE; Start 08/11/16 at 12:00 Glucose (Glutose) 22.5 gm Q15M PRN PO DECREASED GLUCOSE; Start 08/11/16 at 12: 00 Dextrose (D50w Syringe) 25 ml Q15M PRN IV DECREASED GLUCOSE Last administered on 08/17/16at 12:42; Admin Dose 25 ML; Start 08/11/16 at 12:00 Dextrose (D50w Syringe) 50 ml Q15M PRN IV DECREASED GLUCOSE; Start 08/11/16 at 12:00 Glucagon (Glucagen) 1 mg Q15M PRN IM DECREASED GLUCOSE; Start 08/11/16 at 12: 00 Glucose 15 gm 15 gm Q15M PRN BUCCAL DECREASED GLUCOSE; Start 08/11/16 at 12:00 Caspofungin/ Sodium Chloride (Cancidas/NS) 250 ml @ 250 mls/hr Q24H IVPB Last administered on 08/22/16 14:14; Admin Dose 250 MLS/HR; Start 08/12/16 at 14:00 Insulin Aspart (Novolog Insulin Pen) NOVOLOG *MODERATE* ALGORI... Q4 SC Last administered on 08/22/16 21:05; Admin Dose 2 UNIT; Start 08/11/16 at 17:00 IV Flush 10 ml 10 ml PRN PRN IV IV PROTOCOL; Start 08/13/16 at 18:00 Cefazolin Sodium (Ancef 1 Gm/50 ml (Pmx)) 50 ml @ 100 mls/hr Q24H IVPB Last administered on 08/22/16 16:53; Admin Dose 100 MLS/HR; Start 08/14/16 at 17:00 Collagenase 1 applic 1 applic DAILY@22 TOP Last administered on 08/22/16 21:05 ; Admin Dose 1 APPLIC; Start 08/15/16 at 22:00 Fentanyl/Dextrose (D5W) 100 ml @ 2.6 mls/hr TITRATE IV Last administered on 09:25; Admin Dose 2.6 MLS/HR; Start 08/15/16 at 19:30 Insulin Glargine (Lantus) 25 unit QAM SC Last administered on 08/23/16 09:13; Admin Dose 25 UNIT; Start 08/18/16 at 09:00 Assessment/Plan Chief Complaint/Hosp Course assessment 1. Hypoxemic resp failure, pending tracheostomy 2. Pulm edema, right lower lobe infiltrate, possible aspiration pneumonia. 3. Encephalopathy toxic metabolic 4. Diastolic dysf ? 5. Persistent leukocytosis likely polymicrobial sepsis 6. End-stage renal failure on hemodialysis 7. Dysphagia pending PEG Plan 1. Continue Vent, pending tracheostomy and PEG 2. Hemodialysis per nephrology 3, Aspiration precautions 4. DVT / GI prophylaxis. 5. Continue broad-spectrum antibiotics per ID d/w staff CODE STATUS DNR Transfer to telemetry following tracheostomy Problems: VALERIE CAMARENA MD, [facility] Aug 23, 2016 11:04
--- NOTE | 2016-08-23 11:56 | PN ---
Date/Time of Note Date/Time of Note DATE: 08/23/16 TIME: 11:55 Assessment/Plan VTE Prophylaxis VTE Prophylaxis Intervention: other Lines/Catheters IV [facility] Type (from [facility]): PICC Line Central line still needed: Yes Urinary Cath still in place: No Assessment/Plan Chief Complaint/Hosp Course 1. Acute respiratory failure - had to be reintubated, probably will need subacute, trach 2. Possible pneumonia- right lower lobe infiltrate- possible aspiration pneumonia per Pulmonary. Sputum grew 08/02 rare jerry albicans - per Dr. Reardon in infectious disease consultation. 3. Early sepsis d/t C diff - recurrent leukocytosis improving and low grade fever resolving. 4. End-stage renal disease hemodialysis dependent. - on HD - per Dr. Bassett in nephrology consultation 5. Diastolic congestive heart failure. Continue to remove fluid was hemodialysis. 6. Partial right internal jugular DVT. Continue Coumadin. Continue daily PT PTT. 7. C diff stool - per ID - on po Vanco - contact isolation 8. RUE cellulitis with axillary/cephalic venous thrombosis - PER id 9. Hyperglycemia- GLYCEMIC Control- stable 10. Toxic metabolic encephalopathy 11. Osteoporosis. 12. Pulmonary hypertension. Continue sildenafil. 13. Coronary artery disease with history of PCI. 14. Depression. Continue Cymbalta 15. History of left hip fracture, treated conservatively. Problems: Subjective 24 Hr Interval Summary Free Text/Dictation Patient is intubated but is awake Exam/Review of Systems Vital Signs Vitals Vital Signs Date Time Temp Pulse Resp B/P Pulse Ox O2 Delivery O2 Flow Rate FiO2 08/23/16 11:10 97 20 99 30 08/23/16 11:00 157/67 Mechanical Ventilator 08/23/16 09:00 98.9 Intake and Output 08/22/16 08/22/16 08/23/16 15:00 23:00 07:00 Intake Total 826 ml 524 ml 56 ml Output Total 10 ml 5 ml 50 ml Balance 816 ml 519 ml 6 ml Exam Constitutional: well developed Head: atraumatic, normocephalic Neck: supple Respiratory: diminished breath sounds Cardiovascular: regular rate and rhythm Gastrointestinal: non-tender, soft Extremities: normal pulses Results Result Diagram: 08/23/16 0410 08/23/16 0410 Results 24 hrs Laboratory Tests Test 08/22/16 12:29 08/22/16 14:30 08/22/16 16:52 08/22/16 20:55 Bedside Glucose 176 219 145 Activated Partial Thromboplast Time 28.4 INR International Normalized Ratio 1.26 Platelet Count 70 L Prothrombin Time 15.9 H Prothrombin Time Ratio 1.2 Thrombin Time 17.5 Test 08/23/16 01:07 08/23/16 04:10 08/23/16 05:18 08/23/16 09:11 Bedside Glucose 132 110 113 Anion Gap 18 H Basophils # 0.0 Basophils % 0.4 Blood Morphology Comment Blood Urea Nitrogen 67 H Calcium Level 7.3 L Carbon Dioxide Level 24 Chloride Level 96 L Creatinine 2.67 H Eosinophils # 0.0 Eosinophils % 0.2 Glucose Level 108 Hematocrit 24.7 L Hemoglobin 8.1 L Lymphocytes # 0.8 Lymphocytes % 11.1 L Magnesium Level 2.1 Mean Corpuscular Hemoglobin 32.5 Mean Corpuscular Hemoglobin Concent 32.9 Mean Corpuscular Volume 98.8 Mean Platelet Volume 7.7 Monocytes # 0.4 Monocytes % 6.1 Neutrophils # 5.9 Neutrophils % 82.2 H Nucleated Red Blood Cells # 0.0 Nucleated Red Blood Cells % 0.0 Phosphorus Level 2.6 Platelet Count 69 L Potassium Level 3.5 Red Blood Count 2.50 L Red Cell Distribution Width 16.6 H Sodium Level 134 L White Blood Count 7.2 Medications Medications Current Medications Fluticasone Propionate (Flonase 0.05% Nasal) 1 spray BID NASAL Last administered on 08/23/16 09:13; Admin Dose 1 SPRAY; Start 07/26/16 at 10:00 Epoetin [place] (Epogen (Esrd)) 10,000 units MoWeFr@17 SC Last administered on 08/22 16:54; Admin Dose 10,000 UNITS; Start 07/27/16 at 17:00; Status Future hold Hydralazine HCl 10 mg 10 mg Q6H PRN IV ELEVATED BLOOD PRESSURE Last administered on 08/15/16at 15:37; Admin Dose 10 MG; Start 07/29/16 at 13:00 Midazolam HCl/ Dextrose (Versed/D5W) 50 ml @ 1 mls/hr TITRATE IV Last administered on 08/23/16 09:24; Admin Dose 2 MLS/HR; Start 08/01/16 at 23:00 Acetaminophen (Tylenol Tab) 650 mg Q6H PRN GTB PAIN1-3/FEVER ABOVE 100 Last administered on 08/12/16at 06:07; Admin Dose 650 MG; Start 08/02/16 at 15:00 Atorvastatin Calcium (Lipitor) 40 mg HS GTB Last administered on 08/22/16 20:55 ; Admin Dose 40 MG; Start 08/02/16 at 21:00 Carvedilol (Coreg) 6.25 mg BID GTB ; Start 08/02/16 at 09:00; Status Future Hold Duloxetine HCl (Cymbalta) 90 mg DAILY GTB Last administered on 08/23/16 09:13; Admin Dose 90 MG; Start 08/02/16 at 09:00 Guaifenesin (Robitussin Liquid Cup) 100 mg Q4 PRN GTB COUGH; Start 08/02/16 at 09:00 Acetaminophen/ Hydrocodone Bitart ([place] (5/325)) 1 tab Q4 PRN GTB WSOB Last administered on 08/08/16at 09:01; Admin Dose 1 TAB; Start 08/02/16 at 09:00 Lactobacillus Acidoph/Bulgaricus (Floranex) 1 tab DAILY GTB Last administered on 08/23/16 09:13; Admin Dose 1 TAB; Start 08/02/16 at 09:00 Lorazepam (Ativan) 1 mg Q6H PRN GTB ANXIETY Last administered on 08/18/16at 10: 45; Admin Dose 1 MG; Start 08/02/16 at 09:00 Multivit/Ca Carb/ B Cmplx/FA/Prenat (Cheryl-Darcie) 1 tab DAILY GTB Last administered on 08/23/16 09:13; Admin Dose 1 TAB; Start 08/02/16 at 09:00 Aspirin (Aspirin) 81 mg DAILY GTB Last administered on 08/23/16 09:13; Admin Dose 81 MG; Start 08/02/16 at 09:00 Lansoprazole 30 mg 30 mg DAILY@06 GTB Last administered on 08/23/16 05:19; Admin Dose 30 MG; Start 08/02/16 at 10:00 Phenylephrine HCl 80 mg/Dextrose 250 ml @ 18.75 mls/ hr TITRATE IV ; Start at 12:30 Norepinephrine/ Dextrose (Levophed/D5W) 500 ml @ 1.87 mls/hr TITRATE IV Last administered on 08/16/16at 01:50; Admin Dose 3.75 MLS/HR; Start 08/05/16 at 12: 00 Vancomycin HCl (Vancomycin Oral Syringe) 125 mg Q6 NGT Last administered on 08/23 05:37; Admin Dose 125 MG; Start 08/06/16 at 18:00 Sildenafil Citrate (Revatio) 20 mg BID PO Last administered on 08/11/16at 11:56 ; Admin Dose 20 MG; Start 08/08/16 at 21:00; Status Future Hold Lorazepam (Ativan) 0.5 mg Q4 PRN IV ANXIETY Last administered on 08/09/16at 10: 51; Admin Dose 0.5 MG; Start 08/09/16 at 00:00 Methylprednisolone Sodium Succinate (Solu-Medrol) 20 mg DAILY IV Last administered on 08/23/16 09:13; Admin Dose 20 MG; Start 08/10/16 at 09:00 Miscellaneous Information 1 ea NOTE XX ; Start 08/11/16 at 12:00 Glucose (Glutose) 15 gm Q15M PRN PO DECREASED GLUCOSE; Start 08/11/16 at 12:00 Glucose (Glutose) 22.5 gm Q15M PRN PO DECREASED GLUCOSE; Start 08/11/16 at 12: 00 Dextrose (D50w Syringe) 25 ml Q15M PRN IV DECREASED GLUCOSE Last administered on 08/17/16at 12:42; Admin Dose 25 ML; Start 08/11/16 at 12:00 Dextrose (D50w Syringe) 50 ml Q15M PRN IV DECREASED GLUCOSE; Start 08/11/16 at 12:00 Glucagon (Glucagen) 1 mg Q15M PRN IM DECREASED GLUCOSE; Start 08/11/16 at 12: 00 Glucose 15 gm 15 gm Q15M PRN BUCCAL DECREASED GLUCOSE; Start 08/11/16 at 12:00 Caspofungin/ Sodium Chloride (Cancidas/NS) 250 ml @ 250 mls/hr Q24H IVPB Last administered on 08/22/16 14:14; Admin Dose 250 MLS/HR; Start 08/12/16 at 14:00 Insulin Aspart (Novolog Insulin Pen) NOVOLOG *MODERATE* ALGORI... Q4 SC Last administered on 08/22/16 21:05; Admin Dose 2 UNIT; Start 08/11/16 at 17:00 IV Flush 10 ml 10 ml PRN PRN IV IV PROTOCOL; Start 08/13/16 at 18:00 Cefazolin Sodium (Ancef 1 Gm/50 ml (Pmx)) 50 ml @ 100 mls/hr Q24H IVPB Last administered on 08/22/16 16:53; Admin Dose 100 MLS/HR; Start 08/14/16 at 17:00 Collagenase 1 applic 1 applic DAILY@22 TOP Last administered on 08/22/16 21:05 ; Admin Dose 1 APPLIC; Start 08/15/16 at 22:00 Fentanyl/Dextrose (D5W) 100 ml @ 2.6 mls/hr TITRATE IV Last administered on 09:25; Admin Dose 2.6 MLS/HR; Start 08/15/16 at 19:30 Insulin Glargine (Lantus) 25 unit QAM SC Last administered on 08/23/16 09:13; Admin Dose 25 UNIT; Start 08/18/16 at 09:00 LESLIE PEDROZA Aug 23, 2016 11:55
[2016-08-23] MEDS ORDERED: FENTAnyl 50 MCG/ML VIAL ONE (12:11)
[2016-08-23] MEDS ORDERED: PHENYLephrine (100 MCG/ML) 5ML SYG ONE (12:11)
[2016-08-23] MEDS ORDERED: PROPOFOL 20 ML ONE (12:11)
[2016-08-23] MEDS ORDERED: MIDAZOLAM 1 MG/ML 2 ML INJ ONE (12:11)
[2016-08-23] MEDS ORDERED: LIDOCAINE 2% (SDV) 5 ML INJ ONE (12:11)
[2016-08-23] MEDS ORDERED: LIDOCAINE 1% (MDV) 20 ML INJ ONE (14:34)
[2016-08-23] MEDS ORDERED: LIDOCAINE 1%/EPI 30 ML INJ ONE (14:50)
[2016-08-23] MEDS ORDERED: PHENYLephrine 10 MG INJ ONE (14:52)
--- NOTE | 2016-08-23 16:25 | CONS ---
Date/Time of Note Date/Time of Note DATE: 08/23/16 TIME: 16:12 Assessment/Plan Assessment/Plan Chief Complaint/Hosp Course assessment/impression: - VDRF s/p trach - h/o aspiration PNA: respiratory Cx on 08/10 grew MSSA and C. Albicans - h/o septic shock - h/o C diff colitis - h/o intermittent fever - h/o RUE cellulitis complicated by axillary/cephalic venous thrombosis - toxic metabolic encephalopathy - ESRD on HD - Diastolic CHF, CAD with Hx PCI, paroxysmal atrial tachycardia - Old partial DVT of the right internal jugular vein. - PAD s/p BKA - underlying Parkinson's disease - Stage 2 coccyx decub - PCN allergic - G tube dependent - thrombocytopenia - borderline positive [id number] level. Took a brief course of caspofungin - s/p imipenem (08/05- 08/14), IV vanco (07/29-08/13), aztreonam (07/29-08/05), cefazolin (08/14-) Problems: Additional Assessment/Plan recommendations: - will de-escalate antibiotics to help treat his C diff colitis. - d/c IV cefazolin (08/14/16-), Pt got more than 2 weeks of treatment for staph including vancomycin and cefazolin - d/c empiric caspofungin (08/12/16-) - continue pGT vancomycin (07/1916-) management d/w Pt's [employer] the critical care time I took to care for this Pt today was from 1550 to 1625 Consultation Date/Type/Reason Admit Date/Time Jul 26, 2016 at 01:55 Initial Consult Date 07/29/16 Type of Consultation: ID Referring Provider: GRACIE KATHLEEN 24 HR Interval Summary Subjective hx not possible: pt non-verbal Exam/Review of Systems Vital Signs Vitals Vital Signs Date Time Temp Pulse Resp B/P Pulse Ox O2 Delivery O2 Flow Rate FiO2 08/23/16 13:05 89 20 116/55 100 Mechanical Ventilator 08/23/16 11:55 98.8 08/23/16 11:10 30 Intake and Output 08/22/16 08/22/16 08/23/16 15:00 23:00 07:00 Intake Total 826 ml 524 ml 56 ml Output Total 10 ml 5 ml 50 ml Balance 816 ml 519 ml 6 ml Results Result Diagram: 08/23/16 0410 08/23/16 0410 Results 24 hrs Laboratory Tests Test 08/22/16 16:52 08/22/16 20:55 08/23/16 01:07 08/23/16 04:10 Bedside Glucose 219 145 132 Anion Gap 18 H Basophils # 0.0 Basophils % 0.4 Blood Morphology Comment Blood Urea Nitrogen 67 H Calcium Level 7.3 L Carbon Dioxide Level 24 Chloride Level 96 L Creatinine 2.67 H Eosinophils # 0.0 Eosinophils % 0.2 Glucose Level 108 Hematocrit 24.7 L Hemoglobin 8.1 L Lymphocytes # 0.8 Lymphocytes % 11.1 L Magnesium Level 2.1 Mean Corpuscular Hemoglobin 32.5 Mean Corpuscular Hemoglobin Concent 32.9 Mean Corpuscular Volume 98.8 Mean Platelet Volume 7.7 Monocytes # 0.4 Monocytes % 6.1 Neutrophils # 5.9 Neutrophils % 82.2 H Nucleated Red Blood Cells # 0.0 Nucleated Red Blood Cells % 0.0 Phosphorus Level 2.6 Platelet Count 69 L Potassium Level 3.5 Red Blood Count 2.50 L Red Cell Distribution Width 16.6 H Sodium Level 134 L White Blood Count 7.2 Test 08/23/16 05:18 08/23/16 09:11 Bedside Glucose 110 113 Medications Medications Current Medications Fluticasone Propionate (Flonase 0.05% Nasal) 1 spray BID NASAL Last administered on 08/23/16 09:13; Admin Dose 1 SPRAY; Start 07/26/16 at 10:00 Epoetin [place] (Epogen (Esrd)) 10,000 units MoWeFr@17 SC Last administered on 08/22 16:54; Admin Dose 10,000 UNITS; Start 07/27/16 at 17:00; Status Future hold Hydralazine HCl 10 mg 10 mg Q6H PRN IV ELEVATED BLOOD PRESSURE Last administered on 08/15/16at 15:37; Admin Dose 10 MG; Start 07/29/16 at 13:00 Midazolam HCl/ Dextrose (Versed/D5W) 50 ml @ 1 mls/hr TITRATE IV Last administered on 08/23/16 09:24; Admin Dose 2 MLS/HR; Start 08/01/16 at 23:00 Acetaminophen (Tylenol Tab) 650 mg Q6H PRN GTB PAIN1-3/FEVER ABOVE 100 Last administered on 08/12/16at 06:07; Admin Dose 650 MG; Start 08/02/16 at 15:00 Atorvastatin Calcium (Lipitor) 40 mg HS GTB Last administered on 08/22/16 20:55 ; Admin Dose 40 MG; Start 08/02/16 at 21:00 Carvedilol (Coreg) 6.25 mg BID GTB ; Start 08/02/16 at 09:00; Status Future Hold Duloxetine HCl (Cymbalta) 90 mg DAILY GTB Last administered on 08/23/16 09:13; Admin Dose 90 MG; Start 08/02/16 at 09:00 Guaifenesin (Robitussin Liquid Cup) 100 mg Q4 PRN GTB COUGH; Start 08/02/16 at 09:00 Acetaminophen/ Hydrocodone Bitart ([place] (5/325)) 1 tab Q4 PRN GTB WSOB Last administered on 08/08/16at 09:01; Admin Dose 1 TAB; Start 08/02/16 at 09:00 Lactobacillus Acidoph/Bulgaricus (Floranex) 1 tab DAILY GTB Last administered on 08/23/16 09:13; Admin Dose 1 TAB; Start 08/02/16 at 09:00 Lorazepam (Ativan) 1 mg Q6H PRN GTB ANXIETY Last administered on 08/18/16at 10: 45; Admin Dose 1 MG; Start 08/02/16 at 09:00 Multivit/Ca Carb/ B Cmplx/FA/Prenat (Cheryl-Darcie) 1 tab DAILY GTB Last administered on 08/23/16 09:13; Admin Dose 1 TAB; Start 08/02/16 at 09:00 Aspirin (Aspirin) 81 mg DAILY GTB Last administered on 08/23/16 09:13; Admin Dose 81 MG; Start 08/02/16 at 09:00 Lansoprazole 30 mg 30 mg DAILY@06 GTB Last administered on 08/23/16 05:19; Admin Dose 30 MG; Start 08/02/16 at 10:00 Phenylephrine HCl 80 mg/Dextrose 250 ml @ 18.75 mls/ hr TITRATE IV ; Start at 12:30 Norepinephrine/ Dextrose (Levophed/D5W) 500 ml @ 1.87 mls/hr TITRATE IV Last administered on 08/16/16at 01:50; Admin Dose 3.75 MLS/HR; Start 08/05/16 at 12: 00 Vancomycin HCl (Vancomycin Oral Syringe) 125 mg Q6 NGT Last administered on 08/23 05:37; Admin Dose 125 MG; Start 08/06/16 at 18:00 Sildenafil Citrate (Revatio) 20 mg BID PO Last administered on 08/11/16at 11:56 ; Admin Dose 20 MG; Start 08/08/16 at 21:00; Status Future Hold Lorazepam (Ativan) 0.5 mg Q4 PRN IV ANXIETY Last administered on 08/09/16at 10: 51; Admin Dose 0.5 MG; Start 08/09/16 at 00:00 Methylprednisolone Sodium Succinate (Solu-Medrol) 20 mg DAILY IV Last administered on 08/23/16 09:13; Admin Dose 20 MG; Start 08/10/16 at 09:00 Miscellaneous Information 1 ea NOTE XX ; Start 08/11/16 at 12:00 Glucose (Glutose) 15 gm Q15M PRN PO DECREASED GLUCOSE; Start 08/11/16 at 12:00 Glucose (Glutose) 22.5 gm Q15M PRN PO DECREASED GLUCOSE; Start 08/11/16 at 12: 00 Dextrose (D50w Syringe) 25 ml Q15M PRN IV DECREASED GLUCOSE Last administered on 08/17/16at 12:42; Admin Dose 25 ML; Start 08/11/16 at 12:00 Dextrose (D50w Syringe) 50 ml Q15M PRN IV DECREASED GLUCOSE; Start 08/11/16 at 12:00 Glucagon (Glucagen) 1 mg Q15M PRN IM DECREASED GLUCOSE; Start 08/11/16 at 12: 00 Glucose 15 gm 15 gm Q15M PRN BUCCAL DECREASED GLUCOSE; Start 08/11/16 at 12:00 Caspofungin/ Sodium Chloride (Cancidas/NS) 250 ml @ 250 mls/hr Q24H IVPB Last administered on 08/22/16 14:14; Admin Dose 250 MLS/HR; Start 08/12/16 at 14:00 Insulin Aspart (Novolog Insulin Pen) NOVOLOG *MODERATE* ALGORI... Q4 SC Last administered on 08/22/16 21:05; Admin Dose 2 UNIT; Start 08/11/16 at 17:00 IV Flush 10 ml 10 ml PRN PRN IV IV PROTOCOL; Start 08/13/16 at 18:00 Cefazolin Sodium (Ancef 1 Gm/50 ml (Pmx)) 50 ml @ 100 mls/hr Q24H IVPB Last administered on 08/22/16 16:53; Admin Dose 100 MLS/HR; Start 08/14/16 at 17:00 Collagenase 1 applic 1 applic DAILY@22 TOP Last administered on 08/22/16 21:05 ; Admin Dose 1 APPLIC; Start 08/15/16 at 22:00 Fentanyl/Dextrose (D5W) 100 ml @ 2.6 mls/hr TITRATE IV Last administered on 09:25; Admin Dose 2.6 MLS/HR; Start 08/15/16 at 19:30 Insulin Glargine (Lantus) 25 unit QAM SC Last administered on 08/23/16 09:13; Admin Dose 25 UNIT; Start 08/18/16 at 09:00 SADIA LONDON M.D. Aug 23, 2016 16:24
--- NOTE | 2016-08-23 16:44 | GILP ---
DATE OF PROCEDURE: 08/23/2016 NAME OF PROCEDURE: Esophagogastroduodenoscopy, percutaneous endoscopic gastrostomy tube placement. PREOPERATIVE DIAGNOSIS: Patient presenting with history of difficulty in swallowing, history of res piratory failure. The patient is intubated. Currently, the patient needs nutrition and hence, perc utaneous endoscopic gastrostomy tube needs to be placed for long-term nutritional support. POSTOPERATIVE DIAGNOSES: Patient presenting with history of difficulty in swallowing, history of re spiratory failure. The patient is intubated. Currently, the patient needs nutrition and hence, per cutaneous endoscopic gastrostomy tube needs to be placed for long-term nutritional support. DESCRIPTION OF PROCEDURE: After informed written consent was obtained, the patient was asked to lie in the supine position. Intravenous anesthesia was given by anesthesiologist, Dr. Ibarra. When the patient was somnolent, the Olympus video upper endoscope was introduced into the oropharynx, then in to the esophagus, subsequently. Esophagus appeared normal. Stomach showed evidence of no major ulc er disease. Minimal gastritis was noted. Duodenum appeared normal. Endoscope at this time was wit hdrawn to the level of the gastric cavity. The anterior abdominal wall was prepared with Betadine a nd alcohol, 2 mL of 2% Xylocaine was infiltrated at the endoscopic illuminating site in the epigastr ic region and at this time by using the spinal needle as a guide, a 3 mm incision was made. Through this incision, a trocar was inserted into the stomach. The stylet was removed and a guidewire was inserted through this trocar into the stomach and the guidewire was grabbed with a polypectomy snare and with the help of a polypectomy snare, the guidewire was brought out through the mouth along wit h the endoscope. To this end of the guidewire, a #20 Microvasive G-tube was tied in a loop fashion and then it was brought out through the abdominal wall incision. The tapered end of the gastrostomy tube was cut, the adapter was placed and the procedure was terminated. PLAN: Recommend starting G-tube feeding in a.m. Dictated By: AIME LUX/OLESYA Conf#: [id number] DID#: [id number] CC: CANDIDA EMERSON MD;*EndCC*
--- NOTE | 2016-08-23 17:20 | OPR ---
DATE OF OPERATION: PREOPERATIVE DIAGNOSIS: Respiratory failure. POSTOPERATIVE DIAGNOSIS: Respiratory failure. OPERATION PERFORMED: Tracheostomy. SURGEON: Saul Gupta MD ANESTHESIA: General. CONSENT: Risks, benefits, complications, alternative therapies explained to the patient and the fam nash, consent obtained. OPERATIVE TECHNIQUE: The patient was placed in supine position, prepped and draped in usual sterile fashion. A timeout was called and I started. I made a 1 cm incision 1 fingerbreadth superior to the sternal notch. Incision was taken down to th e subcutaneous tissue which was then opened using electrocautery. The ____was opened using [place] um scissors. The trachea was dilated using progressively larger dilators. Endotracheal tube was re moved and 8 cuffed tracheostomy tube advanced into the trachea, secured to the skin using 4-0 nylon sutures and a trach tie. Adequate end tidal CO2 was obtained. The patient tolerated procedure well . Dictated By: SAUL CHAN/OLESYA Conf#: [id number] DID#: [id number]
--- NOTE | 2016-08-23 17:25 | CONS ---
Date/Time of Note Date/Time of Note DATE: 08/23/16 TIME: 17:23 Assessment/Plan Assessment/Plan Chief Complaint/Hosp Course assessment/impression: - VDRF s/p trach - h/o aspiration PNA: respiratory Cx on 08/10 grew MSSA and C. Albicans - h/o septic shock - h/o C diff colitis - h/o intermittent fever - h/o RUE cellulitis complicated by axillary/cephalic venous thrombosis - toxic metabolic encephalopathy - ESRD on HD - Diastolic CHF, CAD with Hx PCI, paroxysmal atrial tachycardia - Old partial DVT of the right internal jugular vein. - PAD s/p BKA - underlying Parkinson's disease - Stage 2 coccyx decub - PCN allergic - G tube dependent - thrombocytopenia - borderline positive [id number] level. Took a brief course of caspofungin - s/p imipenem (08/05- 08/14), IV vanco (07/29-08/13), aztreonam (07/29-08/05), cefazolin (08/14-) Problems: Additional Assessment/Plan recommendations: - will de-escalate antibiotics to help treat his C diff colitis. 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 the critical care time I took to care for this Pt today was from 1550 to 1625 Consultation Date/Type/Reason Admit Date/Time Jul 26, 2016 at 01:55 Initial Consult Date 07/29/16 Type of Consultation: ID Referring Provider: GRACIE KATHLEEN 24 HR Interval Summary Free Text/Dictation had trach and G tube placement Subjective hx not possible: pt non-verbal, pt critical, pt critical status Exam/Review of Systems Vital Signs Vitals Vital Signs Date Time Temp Pulse Resp B/P Pulse Ox O2 Delivery O2 Flow Rate FiO2 08/23/16 16:00 88 08/23/16 15:20 20 100 30 08/23/16 13:05 116/55 Mechanical Ventilator 08/23/16 11:55 98.8 Intake and Output 08/22/16 08/22/16 08/23/16 15:00 23:00 07:00 Intake Total 826 ml 524 ml 56 ml Output Total 10 ml 5 ml 50 ml Balance 816 ml 519 ml 6 ml Exam Constitutional: frail, non-verbal Psych: confusion Head: atraumatic, normocephalic Eyes: nl conjunctiva, nl lids ENMT: nl external ears & nose, nl nasal mucosa & septum Neck: other (trach) Respiratory: diminished breath sounds Cardiovascular: nl pulses, regular rate and rhythm Gastrointestinal: non-tender, other (G tube), soft Musculoskeletal: other (L BKA) Extremities: edema Neurological: unresponsive Skin: ecchymosis Results Result Diagram: 08/23/160 08/23/16409 Results 24 hrs Laboratory Tests Test 08/22/16 20:55 08/23/16 01:07 08/23/16 04:10 08/23/16 05:18 Bedside Glucose 145 132 110 Anion Gap 18 H Basophils # 0.0 Basophils % 0.4 Blood Morphology Comment Blood Urea Nitrogen 67 H Calcium Level 7.3 L Carbon Dioxide Level 24 Chloride Level 96 L Creatinine 2.67 H Eosinophils # 0.0 Eosinophils % 0.2 Glucose Level 108 Hematocrit 24.7 L Hemoglobin 8.1 L Lymphocytes # 0.8 Lymphocytes % 11.1 L Magnesium Level 2.1 Mean Corpuscular Hemoglobin 32.5 Mean Corpuscular Hemoglobin Concent 32.9 Mean Corpuscular Volume 98.8 Mean Platelet Volume 7.7 Monocytes # 0.4 Monocytes % 6.1 Neutrophils # 5.9 Neutrophils % 82.2 H Nucleated Red Blood Cells # 0.0 Nucleated Red Blood Cells % 0.0 Phosphorus Level 2.6 Platelet Count 69 L Potassium Level 3.5 Red Blood Count 2.50 L Red Cell Distribution Width 16.6 H Sodium Level 134 L White Blood Count 7.2 Test 08/23/16 09:11 Bedside Glucose 113 Medications Medications Current Medications Fluticasone Propionate (Flonase 0.05% Nasal) 1 spray BID NASAL Last administered on 08/23/16 09:13; Admin Dose 1 SPRAY; Start 07/26/16 at 10:00 Epoetin [place] (Epogen (Esrd)) 10,000 units MoWeFr@17 SC Last administered on 08/22 16:54; Admin Dose 10,000 UNITS; Start 07/27/16 at 17:00; Status Future hold Hydralazine HCl 10 mg 10 mg Q6H PRN IV ELEVATED BLOOD PRESSURE Last administered on 08/15/16 15:37; Admin Dose 10 MG; Start 07/29/16 at 13:00 Midazolam HCl/ Dextrose (Versed/D5W) 50 ml @ 1 mls/hr TITRATE IV Last administered on 08/23/16 09:24; Admin Dose 2 MLS/HR; Start 08/01/16 at 23:00 Acetaminophen (Tylenol Tab) 650 mg Q6H PRN GTB PAIN1-3/FEVER ABOVE 100 Last administered on 08/12/16 06:07; Admin Dose 650 MG; Start 08/02/16 at 15:00 Atorvastatin Calcium (Lipitor) 40 mg HS GTB Last administered on 08/22/16 20:55 ; Admin Dose 40 MG; Start 08/02/16 at 21:00 Carvedilol (Coreg) 6.25 mg BID GTB ; Start 08/02/16 at 09:00; Status Future Hold Duloxetine HCl (Cymbalta) 90 mg DAILY GTB Last administered on 08/23/16 09:13; Admin Dose 90 MG; Start 08/02/16 at 09:00 Guaifenesin (Robitussin Liquid Cup) 100 mg Q4 PRN GTB COUGH; Start 08/02/16 at 09:00 Acetaminophen/ Hydrocodone Bitart ([place] (5/325)) 1 tab Q4 PRN GTB WSOB Last administered on 08/08/16at 09:01; Admin Dose 1 TAB; Start 08/02/16 at 09:00 Lactobacillus Acidoph/Bulgaricus (Floranex) 1 tab DAILY GTB Last administered on 08/23/16 09:13; Admin Dose 1 TAB; Start 08/02/16 at 09:00 Lorazepam (Ativan) 1 mg Q6H PRN GTB ANXIETY Last administered on 08/18/16at 10: 45; Admin Dose 1 MG; Start 08/02/16 at 09:00 Multivit/Ca Carb/ B Cmplx/FA/Prenat (Cheryl-Darcie) 1 tab DAILY GTB Last administered on 08/23/16 09:13; Admin Dose 1 TAB; Start 08/02/16 at 09:00 Aspirin (Aspirin) 81 mg DAILY GTB Last administered on 08/23/16 09:13; Admin Dose 81 MG; Start 08/02/16 at 09:00 Lansoprazole 30 mg 30 mg DAILY@06 GTB Last administered on 08/23/16 05:19; Admin Dose 30 MG; Start 08/02/16 at 10:00 Phenylephrine HCl 80 mg/Dextrose 250 ml @ 18.75 mls/ hr TITRATE IV ; Start at 12:30 Norepinephrine/ Dextrose (Levophed/D5W) 500 ml @ 1.87 mls/hr TITRATE IV Last administered on 08/16/16at 01:50; Admin Dose 3.75 MLS/HR; Start 08/05/16 at 12: 00 Vancomycin HCl (Vancomycin Oral Syringe) 125 mg Q6 NGT Last administered on 08/23 05:37; Admin Dose 125 MG; Start 08/06/16 at 18:00 Sildenafil Citrate (Revatio) 20 mg BID PO Last administered on 08/11/16at 11:56 ; Admin Dose 20 MG; Start 08/08/16 at 21:00; Status Future Hold Lorazepam (Ativan) 0.5 mg Q4 PRN IV ANXIETY Last administered on 08/09/16at 10: 51; Admin Dose 0.5 MG; Start 08/09/16 at 00:00 Methylprednisolone Sodium Succinate (Solu-Medrol) 20 mg DAILY IV Last administered on 08/23/16 09:13; Admin Dose 20 MG; Start 08/10/16 at 09:00 Miscellaneous Information 1 ea NOTE XX ; Start 08/11/16 at 12:00 Glucose (Glutose) 15 gm Q15M PRN PO DECREASED GLUCOSE; Start 08/11/16 at 12:00 Glucose (Glutose) 22.5 gm Q15M PRN PO DECREASED GLUCOSE; Start 08/11/16 at 12: 00 Dextrose (D50w Syringe) 25 ml Q15M PRN IV DECREASED GLUCOSE Last administered on 08/17/16at 12:42; Admin Dose 25 ML; Start 08/11/16 at 12:00 Dextrose (D50w Syringe) 50 ml Q15M PRN IV DECREASED GLUCOSE; Start 08/11/16 at 12:00 Glucagon (Glucagen) 1 mg Q15M PRN IM DECREASED GLUCOSE; Start 08/11/16 at 12: 00 Glucose (Glutose) 15 gm Q15M PRN BUCCAL DECREASED GLUCOSE; Start 08/11/16 at 12:00 Insulin Aspart (Novolog Insulin Pen) NOVOLOG *MODERATE* ALGORI... Q4 SC Last administered on 08/22/16 21:05; Admin Dose 2 UNIT; Start 08/11/16 at 17:00 IV Flush (NS 10 ml) 10 ml PRN PRN IV IV PROTOCOL; Start 08/13/16 at 18:00 Collagenase 1 applic 1 applic DAILY@22 TOP Last administered on 08/22/16 21:05 ; Admin Dose 1 APPLIC; Start 08/15/16 at 22:00 Fentanyl/Dextrose (D5W) 100 ml @ 2.6 mls/hr TITRATE IV Last administered on 09:25; Admin Dose 2.6 MLS/HR; Start 08/15/16 at 19:30 Insulin Glargine (Lantus) 25 unit QAM SC Last administered on 08/23/16 09:13; Admin Dose 25 UNIT; Start 08/18/16 at 09:00 SADIA LONDON M.D. Aug 23, 2016 17:25
[2016-08-23] MEDS: ATORVASTATIN 40 MG TAB GTB SCH (21:49)
[2016-08-23] MEDS: COLLAGENASE 30 GM TUBE TOP SCH (21:49)
[2016-08-24] VITALS (47 sets, daily range): BP systolic 107–151; BP diastolic 49–81; PULSE 81–110; RESP 12–24
[2016-08-24] MEDS: VANCOMYCIN HCL 250 MG/5ML POSYG NGT SCH ×5 (00:21→23:50)
[2016-08-24] MEDS: INSULIN ASPART [NOVOLOG] 3 ML PEN SC SCH ×7 (01:00→23:53)
[2016-08-24] MEDS: ALBUTEROL HFA 8 GM INHALER INH SCH ×4 (01:14→19:47)
[2016-08-24] MEDS: IPRATROPIUM (HFA) 12.9 GM INHALER INH SCH ×4 (01:14→19:47)
[2016-08-24] MEDS: LORAZEPAM 2 MG INJ IV PRN (04:04)
[2016-08-24] MEDS: FENTAnyl 1,000 MCG in DEXTROSE 5% 80 ML IV SCH (04:31)
[2016-08-24 06:00] LABS: BASOPHILS % 0.4 % (0.0-2.0); EOSINOPHILS % 0.6 % (0.0-7.0); HEMATOCRIT 23.2 % (42.0-52.0); HEMOGLOBIN 7.9 g/dl (14.0-18.0); LYMPHOCYTES % 14.2 % (15.0-51.0); MEAN CORPUSCULAR HEMOGLOBIN 33.4 pg (29.0-33.0); MEAN CORPUSCULAR HGB CONC 33.9 g/dl (32.0-37.0); MEAN CORPUSCULAR VOLUME 98.5 fl (82.0-101.0); MEAN PLATELET VOLUME 7.9 fl (7.4-10.4); MONOCYTE # 0.4 10^3/ul (0.3-0.9); MONOCYTES % 5.9 % (0.0-11.0); NEUTROPHIL # 5.6 10^3/ul (1.6-7.5); NEUTROPHILS % 78.9 % (39.0-77.0); PLATELET COUNT 67 10^3/UL (140-440); RED BLOOD COUNT 2.36 10^6/ul (4.70-6.10); RED CELL DISTRIBUTION WIDTH 16.6 % (11.5-14.5)
[2016-08-24] MEDS: LANSOPRAZOLE 30 MG CAP GTB SCH (06:09)
[2016-08-24 06:11] LABS: CONDITION 1; LH ANALYZER COMMENTS 1
[2016-08-24] MEDS ORDERED: SOD CHLORIDE 0.9% 250 ML IV* ONE (07:26)
--- NOTE | 2016-08-24 08:05 | CONS ---
DATE OF ADMISSION: 07/26/2016 DATE OF CONSULTATION: NEPHROLOGY NOTE SUBJECTIVE: The patient remains sedated on the ventilator here in the ICU. He did undergo both tracheostomy and PEG placement yesterday apparently without incident. He remain s hemodynamically stable. OBJECTIVE: VITAL SIGNS: He is afebrile, blood pressure is 146/70, heart rate is 82 and regular, respirations a re 12 and controlled on the vent. O2 saturation is 98% on an FIO2 of 30%. SKIN: No new rashes. NECK: Trach in place with minimal ooze. LUNGS: Clear. HEART: S1, S2, regular rate and rhythm. ABDOMEN: Soft. EXTREMITIES: Well-functioning left upper extremity AV fistula. LABORATORY DATA: White count 7.0, hemoglobin 7.9, hematocrit 23.2, platelet count again low at 67,0 00, but stable. Blood sugars are between 70 and 170. PROBLEM LIST: 1. End-stage renal disease, currently maintained on dialysis every Saturday, , and Saturday, well tolerated 2. Respiratory failure, status post tracheostomy placement yesterday, 08/23/2016. 3. Status post PEG placement yesterday on 08/23/2016. 4. Recent aspiration pneumonia, remains on antibiotics. 5. Recent Clostridium difficile colitis, antibiotics being deescalated. 6. Thrombocytopenia, as noted for several days, currently stable, no further evaluation apparently in process. 7. Diabetes mellitus, well controlled. RECOMMENDATIONS: 1. Dialysis tomorrow. 2. Transfuse 1 unit of packed cells with dialysis. 3. Follow up thrombocytopenia. Dictated By: MOSES GUAJARDO MD, MM/OLESYA Conf#: [id number] DID#: [id number]
[2016-08-24] MEDS: DULOXETINE 30 MG CAP DR GTB SCH (08:54)
[2016-08-24] MEDS: ASPIRIN 81 MG TAB GTB SCH (08:55)
[2016-08-24] MEDS: FLUTICASONE 0.05% 16 GM NAS SPRAY NASAL SCH ×2 (08:55→21:00)
[2016-08-24] MEDS: LACTOBACILLUS CHEW TAB GTB SCH (08:55)
[2016-08-24] MEDS: MULTIVIT/CA CARB/B CMPLX/FA TAB GTB SCH (08:55)
[2016-08-24] MEDS: METHYLPREDNISOLONE 40 MG INJ IV SCH (08:55)
[2016-08-24] MEDS: DEXTROSE 50% 50 ML SYRINGE IV PRN ×2 (08:57→12:54)
--- NOTE | 2016-08-24 08:57 | CONS ---
Date/Time of Note Date/Time of Note DATE: 08/24/16 TIME: 08:55 Assessment/Plan Assessment/Plan Chief Complaint/Hosp Course assessment/impression: - VDRF s/p trach - h/o aspiration PNA: respiratory Cx on 08/10 grew MSSA and C. Albicans - h/o septic shock - h/o C diff colitis - h/o intermittent fever - h/o RUE cellulitis complicated by axillary/cephalic venous thrombosis - toxic metabolic encephalopathy - ESRD on HD - Diastolic CHF, CAD with Hx PCI, paroxysmal atrial tachycardia - Old partial DVT of the right internal jugular vein. - PAD s/p BKA - underlying Parkinson's disease - Stage 2 coccyx decub - PCN allergic - G tube dependent - thrombocytopenia - borderline positive [id number] level. 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 the critical care time I took to care for this Pt today was from 0800 to 0835 Consultation Date/Type/Reason Admit Date/Time Jul 26, 2016 at 01:55 Initial Consult Date 07/29/16 Type of Consultation: ID Referring Provider: GRACIE KATHLEEN 24 HR Interval Summary Subjective hx not possible: pt non-verbal Exam/Review of Systems Vital Signs Vitals Vital Signs Date Time Temp Pulse Resp B/P Pulse Ox O2 Delivery O2 Flow Rate FiO2 08/24/16 06:00 96 16 146/70 98 Mechanical Ventilator 08/24/16 05:00 30 08/24/16 00:00 98.9 Intake and Output 08/23/16 08/23/16 08/24/16 15:00 23:00 07:00 Intake Total 68.5 ml 571.5 ml 3 ml Output Total 0 ml 3012 ml 0 ml Balance 68.5 ml -2440.5 ml 3 ml Exam Constitutional: frail, non-verbal Psych: confusion Head: normocephalic Eyes: nl sclera Neck: other (trach) Respiratory: diminished breath sounds Cardiovascular: nl pulses, regular rate and rhythm Gastrointestinal: non-tender, other (GT RT), soft Musculoskeletal: other (s/p L BKA) Extremities: edema Neurological: unresponsive Skin: ecchymosis Results Result Diagram: 08/24/16 0430 08/23/16 0410 Results 24 hrs Laboratory Tests Test 08/23/16 09:11 08/23/16 17:36 08/23/16 21:53 08/24/16 00:32 Bedside Glucose 113 170 137 92 Test 08/24/16 04:30 08/24/16 06:16 08/24/16 08:52 Basophils # 0.0 Basophils % 0.4 Blood Morphology Comment Eosinophils # 0.0 Eosinophils % 0.6 Hematocrit 23.2 L Hemoglobin 7.9 L Lymphocytes # 1.0 Lymphocytes % 14.2 L Mean Corpuscular Hemoglobin 33.4 H Mean Corpuscular Hemoglobin Concent 33.9 Mean Corpuscular Volume 98.5 Mean Platelet Volume 7.9 Monocytes # 0.4 Monocytes % 5.9 Neutrophils # 5.6 Neutrophils % 78.9 H Nucleated Red Blood Cells # 0.0 Nucleated Red Blood Cells % 0.0 Platelet Count 67 L Red Blood Count 2.36 L Red Cell Distribution Width 16.6 H White Blood Count 7.0 Bedside Glucose 71 53 L Medications Medications Current Medications Fluticasone Propionate (Flonase 0.05% Nasal) 1 spray BID NASAL Last administered on 08/23/16 09:13; Admin Dose 1 SPRAY; Start 07/26/16 at 10:00 Epoetin [place] (Epogen (Esrd)) 10,000 units MoWeFr@17 SC Last administered on 08/22 16:54; Admin Dose 10,000 UNITS; Start 07/27/16 at 17:00; Status Future hold Hydralazine HCl 10 mg 10 mg Q6H PRN IV ELEVATED BLOOD PRESSURE Last administered on 08/15/16at 15:37; Admin Dose 10 MG; Start 07/29/16 at 13:00 Midazolam HCl/ Dextrose (Versed/D5W) 50 ml @ 1 mls/hr TITRATE IV Last administered on 08/23/16 09:24; Admin Dose 2 MLS/HR; Start 08/01/16 at 23:00 Acetaminophen (Tylenol Tab) 650 mg Q6H PRN GTB PAIN1-3/FEVER ABOVE 100 Last administered on 08/12/16 06:07; Admin Dose 650 MG; Start 08/02/16 at 15:00 Atorvastatin Calcium (Lipitor) 40 mg HS GTB Last administered on 08/23/16 21:49 ; Admin Dose 40 MG; Start 08/02/16 at 21:00 Carvedilol (Coreg) 6.25 mg BID GTB ; Start 08/02/16 at 09:00; Status Future Hold Duloxetine HCl (Cymbalta) 90 mg DAILY GTB Last administered on 08/23/16 09:13; Admin Dose 90 MG; Start 08/02/16 at 09:00 Guaifenesin (Robitussin Liquid Cup) 100 mg Q4 PRN GTB COUGH; Start 08/02/16 at 09:00 Acetaminophen/ Hydrocodone Bitart ([place] (5/325)) 1 tab Q4 PRN GTB WSOB Last administered on 08/08/16at 09:01; Admin Dose 1 TAB; Start 08/02/16 at 09:00 Lactobacillus Acidoph/Bulgaricus (Floranex) 1 tab DAILY GTB Last administered on 08/23/16 09:13; Admin Dose 1 TAB; Start 08/02/16 at 09:00 Lorazepam (Ativan) 1 mg Q6H PRN GTB ANXIETY Last administered on 08/18/16at 10: 45; Admin Dose 1 MG; Start 08/02/16 at 09:00 Multivit/Ca Carb/ B Cmplx/FA/Prenat (Cheryl-Darcie) 1 tab DAILY GTB Last administered on 08/23/16 09:13; Admin Dose 1 TAB; Start 08/02/16 at 09:00 Aspirin (Aspirin) 81 mg DAILY GTB Last administered on 08/23/16 09:13; Admin Dose 81 MG; Start 08/02/16 at 09:00 Lansoprazole 30 mg 30 mg DAILY@06 GTB Last administered on 08/24/16 06:09; Admin Dose 30 MG; Start 08/02/16 at 10:00 Phenylephrine HCl 80 mg/Dextrose 250 ml @ 18.75 mls/ hr TITRATE IV ; Start at 12:30 Norepinephrine/ Dextrose (Levophed/D5W) 500 ml @ 1.87 mls/hr TITRATE IV Last administered on 08/16/16at 01:50; Admin Dose 3.75 MLS/HR; Start 08/05/16 at 12: 00 Vancomycin HCl (Vancomycin Oral Syringe) 125 mg Q6 NGT Last administered on 08/24 06:10; Admin Dose 125 MG; Start 08/06/16 at 18:00 Sildenafil Citrate (Revatio) 20 mg BID PO Last administered on 08/11/16at 11:56 ; Admin Dose 20 MG; Start 08/08/16 at 21:00; Status Future Hold Lorazepam (Ativan) 0.5 mg Q4 PRN IV ANXIETY Last administered on 08/24/16 04:04 ; Admin Dose 0.5 MG; Start 08/09/16 at 00:00 Methylprednisolone Sodium Succinate (Solu-Medrol) 20 mg DAILY IV Last administered on 08/23/16 09:13; Admin Dose 20 MG; Start 08/10/16 at 09:00 Miscellaneous Information 1 ea NOTE XX ; Start 08/11/16 at 12:00 Glucose (Glutose) 15 gm Q15M PRN PO DECREASED GLUCOSE; Start 08/11/16 at 12:00 Glucose (Glutose) 22.5 gm Q15M PRN PO DECREASED GLUCOSE; Start 08/11/16 at 12: 00 Dextrose (D50w Syringe) 25 ml Q15M PRN IV DECREASED GLUCOSE Last administered on 08/17/16at 12:42; Admin Dose 25 ML; Start 08/11/16 at 12:00 Dextrose (D50w Syringe) 50 ml Q15M PRN IV DECREASED GLUCOSE; Start 08/11/16 at 12:00 Glucagon (Glucagen) 1 mg Q15M PRN IM DECREASED GLUCOSE; Start 08/11/16 at 12: 00 Glucose (Glutose) 15 gm Q15M PRN BUCCAL DECREASED GLUCOSE; Start 08/11/16 at 12:00 Insulin Aspart (Novolog Insulin Pen) NOVOLOG *MODERATE* ALGORI... Q4 SC Last administered on 08/23/16 17:39; Admin Dose 2 UNIT; Start 08/11/16 at 17:00 IV Flush (NS 10 ml) 10 ml PRN PRN IV IV PROTOCOL; Start 08/13/16 at 18:00 Collagenase 1 applic 1 applic DAILY@22 TOP Last administered on 08/22/16 21:05 ; Admin Dose 1 APPLIC; Start 08/15/16 at 22:00 Fentanyl/Dextrose (D5W) 100 ml @ 2.6 mls/hr TITRATE IV Last administered on 04:31; Admin Dose 2.6 MLS/HR; Start 08/15/16 at 19:30 Insulin Glargine (Lantus) 25 unit QAM SC Last administered on 08/23/16 09:13; Admin Dose 25 UNIT; Start 08/18/16 at 09:00 SADIA LONDON M.D. Aug 24, 2016 08:57
[2016-08-24] MEDS: INSULIN GLARGINE [LANtus] 3 ML PEN SC SCH (09:00)
[2016-08-24] MEDS ORDERED: FENTAnyl 1,000 MCG in DEXTROSE 5% 80 ML IV SCH (09:40)
[2016-08-24] MEDS ORDERED: INSULIN GLARGINE [LANtus] 3 ML PEN SC ONE (10:00)
--- NOTE | 2016-08-24 10:38 | CONS ---
Date/Time of Note Date/Time of Note DATE: 08/24/16 TIME: 10:36 Consult Date/Type/Reason Admit Date/Time Jul 26, 2016 at 01:55 Initial Consult Date 07/29/16 Type of Consultation: pulmonary Ordering Provider: GRACIE KATHLEEN Subjective Patient is status post tracheostomy and PEG tube placement Remained stable no hemodynamic instability Moderate secretions Objective Vital Signs Date Time Temp Pulse Resp B/P Pulse Ox O2 Delivery O2 Flow Rate FiO2 08/24/16 08:00 87 08/24/16 06:00 16 146/70 98 Mechanical Ventilator 08/24/16 05:00 30 08/24/16 00:00 98.9 Intake and Output 08/23/16 08/23/16 08/24/16 15:00 23:00 07:00 Intake Total 68.5 ml 571.5 ml 20.6 ml Output Total 0 ml 3012 ml 0 ml Balance 68.5 ml -2440.5 ml 20.6 ml GENERAL: Elderly gentleman on mechanical ventilation VITAL SIGNS: per chart NECK: Supple. No JVD or lymphadenopathy. CARDIAC EXAM: S1, S2. No added sounds or murmurs. CHEST: Diminished air entry bilaterally ABDOMEN: Soft, nontender. No guarding or rebound. EXTREMITIES: No cyanosis, clubbing or edema. NEUROLOGIC: Generalized weakness. No focal deficits. Results/Medications Result Diagram: 08/24/16 0430 08/23/16 0410 Results 24 hrs Laboratory Tests Test 08/23/16 17:36 08/23/16 21:53 08/24/16 00:32 08/24/16 04:30 Bedside Glucose 170 137 92 Basophils # 0.0 Basophils % 0.4 Blood Morphology Comment Eosinophils # 0.0 Eosinophils % 0.6 Hematocrit 23.2 L Hemoglobin 7.9 L Lymphocytes # 1.0 Lymphocytes % 14.2 L Mean Corpuscular Hemoglobin 33.4 H Mean Corpuscular Hemoglobin Concent 33.9 Mean Corpuscular Volume 98.5 Mean Platelet Volume 7.9 Monocytes # 0.4 Monocytes % 5.9 Neutrophils # 5.6 Neutrophils % 78.9 H Nucleated Red Blood Cells # 0.0 Nucleated Red Blood Cells % 0.0 Platelet Count 67 L Red Blood Count 2.36 L Red Cell Distribution Width 16.6 H White Blood Count 7.0 Test 08/24/16 06:16 08/24/16 08:52 08/24/16 09:15 08/24/16 10:03 Bedside Glucose 71 53 L 107 75 Medications Current Medications Fluticasone Propionate (Flonase 0.05% Nasal) 1 spray BID NASAL Last administered on 08/24/16 08:55; Admin Dose 1 SPRAY; Start 07/26/16 at 10:00 Epoetin [place] (Epogen (Esrd)) 10,000 units MoWeFr@17 SC Last administered on 08/22 16:54; Admin Dose 10,000 UNITS; Start 07/27/16 at 17:00; Status Future hold Hydralazine HCl 10 mg 10 mg Q6H PRN IV ELEVATED BLOOD PRESSURE Last administered on 08/15/16at 15:37; Admin Dose 10 MG; Start 07/29/16 at 13:00 Midazolam HCl/ Dextrose (Versed/D5W) 50 ml @ 1 mls/hr TITRATE IV Last administered on 08/23/16 09:24; Admin Dose 2 MLS/HR; Start 08/01/16 at 23:00 Acetaminophen (Tylenol Tab) 650 mg Q6H PRN GTB PAIN1-3/FEVER ABOVE 100 Last administered on 08/12/16at 06:07; Admin Dose 650 MG; Start 08/02/16 at 15:00 Atorvastatin Calcium (Lipitor) 40 mg HS GTB Last administered on 08/23/16 21:49 ; Admin Dose 40 MG; Start 08/02/16 at 21:00 Carvedilol (Coreg) 6.25 mg BID GTB ; Start 08/02/16 at 09:00; Status Future Hold Duloxetine HCl (Cymbalta) 90 mg DAILY GTB Last administered on 08/24/16 08:54; Admin Dose 90 MG; Start 08/02/16 at 09:00 Guaifenesin (Robitussin Liquid Cup) 100 mg Q4 PRN GTB COUGH; Start 08/02/16 at 09:00 Acetaminophen/ Hydrocodone Bitart ([place] (5/325)) 1 tab Q4 PRN GTB [facility]SOB Last administered on 08/08/16at 09:01; Admin Dose 1 TAB; Start 08/02/16 at 09:00 Lactobacillus Acidoph/Bulgaricus (Floranex) 1 tab DAILY GTB Last administered on 08/24/16 08:55; Admin Dose 1 TAB; Start 08/02/16 at 09:00 Lorazepam (Ativan) 1 mg Q6H PRN GTB ANXIETY Last administered on 08/18/16at 10: 45; Admin Dose 1 MG; Start 08/02/16 at 09:00 Multivit/Ca Carb/ B Cmplx/FA/Prenat (Cheryl-Darcie) 1 tab DAILY GTB Last administered on 08/24/16 08:55; Admin Dose 1 TAB; Start 08/02/16 at 09:00 Aspirin (Aspirin) 81 mg DAILY GTB Last administered on 08/24/16 08:55; Admin Dose 81 MG; Start 08/02/16 at 09:00 Lansoprazole 30 mg 30 mg DAILY@06 GTB Last administered on 08/24/16 06:09; Admin Dose 30 MG; Start 08/02/16 at 10:00 Phenylephrine HCl 80 mg/Dextrose 250 ml @ 18.75 mls/ hr TITRATE IV ; Start at 12:30 Norepinephrine/ Dextrose (Levophed/D5W) 500 ml @ 1.87 mls/hr TITRATE IV Last administered on 08/16/16at 01:50; Admin Dose 3.75 MLS/HR; Start 08/05/16 at 12: 00 Vancomycin HCl (Vancomycin Oral Syringe) 125 mg Q6 NGT Last administered on 08/24 06:10; Admin Dose 125 MG; Start 08/06/16 at 18:00 Sildenafil Citrate (Revatio) 20 mg BID PO Last administered on 08/11/16at 11:56 ; Admin Dose 20 MG; Start 08/08/16 at 21:00; Status Future Hold Lorazepam (Ativan) 0.5 mg Q4 PRN IV ANXIETY Last administered on 08/24/16 04:04 ; Admin Dose 0.5 MG; Start 08/09/16 at 00:00 Methylprednisolone Sodium Succinate (Solu-Medrol) 20 mg DAILY IV Last administered on 08/24/16 08:55; Admin Dose 20 MG; Start 08/10/16 at 09:00 Miscellaneous Information 1 ea NOTE XX ; Start 08/11/16 at 12:00 Glucose (Glutose) 15 gm Q15M PRN PO DECREASED GLUCOSE; Start 08/11/16 at 12:00 Glucose (Glutose) 22.5 gm Q15M PRN PO DECREASED GLUCOSE; Start 08/11/16 at 12: 00 Dextrose (D50w Syringe) 25 ml Q15M PRN IV DECREASED GLUCOSE Last administered on 08/24/16 08:57; Admin Dose 25 ML; Start 08/11/16 at 12:00 Dextrose (D50w Syringe) 50 ml Q15M PRN IV DECREASED GLUCOSE; Start 08/11/16 at 12:00 Glucagon (Glucagen) 1 mg Q15M PRN IM DECREASED GLUCOSE; Start 08/11/16 at 12: 00 Glucose (Glutose) 15 gm Q15M PRN BUCCAL DECREASED GLUCOSE; Start 08/11/16 at 12:00 Insulin Aspart (Novolog Insulin Pen) NOVOLOG *MODERATE* ALGORI... Q4 SC Last administered on 08/23/16 17:39; Admin Dose 2 UNIT; Start 08/11/16 at 17:00 IV Flush (NS 10 ml) 10 ml PRN PRN IV IV PROTOCOL; Start 08/13/16 at 18:00 Collagenase (Santyl) 1 applic DAILY@22 TOP Last administered on 08/22/16 21:05 ; Admin Dose 1 APPLIC; Start 08/15/16 at 22:00 Insulin Glargine 25 unit 25 unit QAM SC Last administered on 08/23/16 09:13; Admin Dose 25 UNIT; Start 08/18/16 at 09:00 Fentanyl/Dextrose (D5W) 100 ml @ 2.6 mls/hr TITRATE IV Last administered on 09:43; Admin Dose 14 MLS/HR; Start 08/24/16 at 09:40 Assessment/Plan Chief Complaint/Hosp Course assessment 1. Hypoxemic resp failure, status post tracheostomy and PEG tube 2. Pulm edema, right lower lobe infiltrate, possible aspiration pneumonia. 3. Encephalopathy toxic metabolic 4. Congestive heart failure 5. Persistent leukocytosis likely polymicrobial sepsis 6. End-stage renal failure on hemodialysis 7. Dysphagia now with PEG tube started on tube feeding Plan 1. Continue Vent, pending tracheostomy and PEG 2. Hemodialysis per nephrology 3, Aspiration precautions 4. DVT / GI prophylaxis. 5. Continue broad-spectrum antibiotics per ID d/w staff CODE STATUS DNR Transfer to [facility] evaluation Problems: VALER[facility] CAMARENA [facility], [facility] Aug 24, 2016 10:38
--- NOTE | 2016-08-24 11:30 | CONS ---
Date/Time of Note Date/Time of Note DATE: 08/24/16 TIME: 11:28 Assessment/Plan Assessment/Plan Additional Assessment/Plan Respiratory failure status post intubation Sepsis Minimally elevated troponin DVT Diastolic congestive heart failure End-stage renal disease on hemodialysis CAD with history of PCI Diabetes Peripheral arterial disease with history of amputation Pulmonary hypertension -Patient status post tracheostomy and PEG placement yesterday. Hemoglobin worsening, plan for blood transfusion today. If blood pressure trend remained stable, would reinitiate beta shivani and revatio in the near future. Consultation Date/Type/Reason Admit Date/Time Jul 26, 2016 at 01:55 Type of Consultation: cv Referring Provider: GRACIE KATHLEEN 24 HR Interval Summary Free Text/Dictation Patient status post tracheostomy and PEG placement yesterday. No cardiac issues as per nursing staff Exam/Review of Systems Vital Signs Vitals Vital Signs Date Time Temp Pulse Resp B/P Pulse Ox O2 Delivery O2 Flow Rate FiO2 08/24/16 11:00 87 20 132/61 98 Mechanical Ventilator 08/24/16 08:00 98.9 08/24/16 05:00 30 Intake and Output 08/23/16 08/23/16 08/24/16 15:00 23:00 07:00 Intake Total 68.5 ml 571.5 ml 20.6 ml Output Total 0 ml 3012 ml 0 ml Balance 68.5 ml -2440.5 ml 20.6 ml Exam Sedated, no apparent distress Head: normocephalic Neck: other (tracheostomy) Respiratory: other (course breath sounds bilaterally, no wheezing) Cardiovascular: other (S1-S2 heard), regular rate and rhythm Gastrointestinal: bowel sounds, non-tender, soft Extremities: edema Results Result Diagram: 08/24/16 0430 08/23/16 0410 Results 24 hrs Laboratory Tests Test 08/23/16 17:36 08/23/16 21:53 08/24/16 00:32 08/24/16 04:30 Bedside Glucose 170 137 92 Basophils # 0.0 Basophils % 0.4 Blood Morphology Comment Eosinophils # 0.0 Eosinophils % 0.6 Hematocrit 23.2 L Hemoglobin 7.9 L Lymphocytes # 1.0 Lymphocytes % 14.2 L Mean Corpuscular Hemoglobin 33.4 H Mean Corpuscular Hemoglobin Concent 33.9 Mean Corpuscular Volume 98.5 Mean Platelet Volume 7.9 Monocytes # 0.4 Monocytes % 5.9 Neutrophils # 5.6 Neutrophils % 78.9 H Nucleated Red Blood Cells # 0.0 Nucleated Red Blood Cells % 0.0 Platelet Count 67 L Red Blood Count 2.36 L Red Cell Distribution Width 16.6 H White Blood Count 7.0 Test 08/24/16 06:16 08/24/16 08:52 08/24/16 09:15 08/24/16 10:03 Bedside Glucose 71 53 L 107 75 Test 08/24/16 11:09 Bedside Glucose 74 Medications Medications Current Medications Fluticasone Propionate (Flonase 0.05% Nasal) 1 spray BID NASAL Last administered on 08/24/16 08:55; Admin Dose 1 SPRAY; Start 07/26/16 at 10:00 Epoetin [place] (Epogen (Esrd)) 10,000 units MoWeFr@17 SC Last administered on 08/22 16:54; Admin Dose 10,000 UNITS; Start 07/27/16 at 17:00; Status Future hold Hydralazine HCl 10 mg 10 mg Q6H PRN IV ELEVATED BLOOD PRESSURE Last administered on 08/15/16at 15:37; Admin Dose 10 MG; Start 07/29/16 at 13:00 Midazolam HCl/ Dextrose (Versed/D5W) 50 ml @ 1 mls/hr TITRATE IV Last administered on 08/23/16 09:24; Admin Dose 2 MLS/HR; Start 08/01/16 at 23:00 Acetaminophen (Tylenol Tab) 650 mg Q6H PRN GTB PAIN1-3/FEVER ABOVE 100 Last administered on 08/12/16at 06:07; Admin Dose 650 MG; Start 08/02/16 at 15:00 Atorvastatin Calcium (Lipitor) 40 mg HS GTB Last administered on 08/23/16 21:49 ; Admin Dose 40 MG; Start 08/02/16 at 21:00 Carvedilol (Coreg) 6.25 mg BID GTB ; Start 08/02/16 at 09:00; Status Future Hold Duloxetine HCl (Cymbalta) 90 mg DAILY GTB Last administered on 08/24/16 08:54; Admin Dose 90 MG; Start 08/02/16 at 09:00 Guaifenesin (Robitussin Liquid Cup) 100 mg Q4 PRN GTB COUGH; Start 08/02/16 at 09:00 Acetaminophen/ Hydrocodone Bitart ([place] (5/325)) 1 tab Q4 PRN GTB [facility]SOB Last administered on 08/08/16 09:01; Admin Dose 1 TAB; Start 08/02/16 at 09:00 Lactobacillus Acidoph/Bulgaricus (Floranex) 1 tab DAILY GTB Last administered on 08/24/16 08:55; Admin Dose 1 TAB; Start 08/02/16 at 09:00 Lorazepam (Ativan) 1 mg Q6H PRN GTB ANXIETY Last administered on 08/18/16 10: 45; Admin Dose 1 MG; Start 08/02/16 at 09:00 Multivit/Ca Carb/ B Cmplx/FA/Prenat (Cheryl-Darcie) 1 tab DAILY GTB Last administered on 08/24/16 08:55; Admin Dose 1 TAB; Start 08/02/16 at 09:00 Aspirin (Aspirin) 81 mg DAILY GTB Last administered on 08/24/16 08:55; Admin Dose 81 MG; Start 08/02/16 at 09:00 Lansoprazole 30 mg 30 mg DAILY@06 GTB Last administered on 08/24/16 06:09; Admin Dose 30 MG; Start 08/02/16 at 10:00 Phenylephrine HCl 80 mg/Dextrose 250 ml @ 18.75 mls/ hr TITRATE IV ; Start at 12:30 Norepinephrine/ Dextrose (Levophed/D5W) 500 ml @ 1.87 mls/hr TITRATE IV Last administered on 08/16/16 01:50; Admin Dose 3.75 MLS/HR; Start 08/05/16 at 12: 00 Vancomycin HCl (Vancomycin Oral Syringe) 125 mg Q6 NGT Last administered on 08/24 06:10; Admin Dose 125 MG; Start 08/06/16 at 18:00 Sildenafil Citrate (Revatio) 20 mg BID PO Last administered on 08/11/16 11:56 ; Admin Dose 20 MG; Start 08/08/16 at 21:00; Status Future Hold Lorazepam (Ativan) 0.5 mg Q4 PRN IV ANXIETY Last administered on 08/24/16 04:04 ; Admin Dose 0.5 MG; Start 12/22/16 at 00:00 Methylprednisolone Sodium Succinate (Solu-Medrol) 20 mg DAILY IV Last administered on 08/24/16 08:55; Admin Dose 20 MG; Start 08/10/16 at 09:00 Miscellaneous Information 1 ea NOTE XX ; Start 08/11/16 at 12:00 Glucose (Glutose) 15 gm Q15M PRN PO DECREASED GLUCOSE; Start 08/11/16 at 12:00 Glucose (Glutose) 22.5 gm Q15M PRN PO DECREASED GLUCOSE; Start 08/11/16 at 12: 00 Dextrose (D50w Syringe) 25 ml Q15M PRN IV DECREASED GLUCOSE Last administered on 08/24/16 08:57; Admin Dose 25 ML; Start 08/11/16 at 12:00 Dextrose (D50w Syringe) 50 ml Q15M PRN IV DECREASED GLUCOSE; Start 08/11/16 at 12:00 Glucagon (Glucagen) 1 mg Q15M PRN IM DECREASED GLUCOSE; Start 08/11/16 at 12: 00 Glucose (Glutose) 15 gm Q15M PRN BUCCAL DECREASED GLUCOSE; Start 08/11/16 at 12:00 Insulin Aspart (Novolog Insulin Pen) NOVOLOG *MODERATE* ALGORI... Q4 SC Last administered on 08/23/16 17:39; Admin Dose 2 UNIT; Start 08/11/16 at 17:00 IV Flush (NS 10 ml) 10 ml PRN PRN IV IV PROTOCOL; Start 08/13/16 at 18:00 Collagenase (Santyl) 1 applic DAILY@22 TOP Last administered on 08/22/16 21:05 ; Admin Dose 1 APPLIC; Start 08/15/16 at 22:00 Insulin Glargine 25 unit 25 unit QAM SC Last administered on 08/23/16 09:13; Admin Dose 25 UNIT; Start 08/18/16 at 09:00 Fentanyl/Dextrose (D5W) 100 ml @ 2.6 mls/hr TITRATE IV Last administered on 09:43; Admin Dose 14 MLS/HR; Start 08/24/16 at 09:40 Solo Leon DO Aug 24, 2016 11:30
[2016-08-24] MEDS: HYDROCODONE/APAP (5/325) TAB GTB PRN ×2 (13:14→21:04)
--- NOTE | 2016-08-24 14:11 | PN ---
Date/Time of Note Date/Time of Note DATE: 08/24/16 TIME: 14:10 Assessment/Plan VTE Prophylaxis VTE Prophylaxis Intervention: other Lines/Catheters IV Catheter Type (from Nrs): PICC Line Central line still needed: Yes Urinary Cath still in place: No Reason Cath still needed: skin wounds contaminated by urine Assessment/Plan Chief Complaint/Hosp Course 1. Acute respiratory failure - had to be reintubated, probably will need subacute, trach 2. Possible pneumonia- right lower lobe infiltrate- possible aspiration pneumonia per Pulmonary. Sputum grew 08/02 rare jerry albicans - per Dr. Reardon in infectious disease consultation. 3. Early sepsis d/t C diff - recurrent leukocytosis improving and low grade fever resolving. 4. End-stage renal disease hemodialysis dependent. - on HD - per Dr. Bassett in nephrology consultation 5. Diastolic congestive heart failure. Continue to remove fluid was hemodialysis. 6. Partial right internal jugular DVT. Continue Coumadin. Continue daily PT PTT. 7. C diff stool - per ID - on po Vanco - contact isolation 8. RUE cellulitis with axillary/cephalic venous thrombosis - PER id 9. Hyperglycemia- GLYCEMIC Control- stable 10. Toxic metabolic encephalopathy 11. Osteoporosis. 12. Pulmonary hypertension. Continue sildenafil. 13. Coronary artery disease with history of PCI. 14. Depression. Continue Cymbalta 15. History of left hip fracture, treated conservatively. Problems: Subjective 24 Hr Interval Summary Free Text/Dictation Patient is awake, trach and peg in place Exam/Review of Systems Vital Signs Vitals Vital Signs Date Time Temp Pulse Resp B/P Pulse Ox O2 Delivery O2 Flow Rate FiO2 08/24/16 12:00 87 08/24/16 11:20 20 98 30 08/24/16 11:00 132/61 Mechanical Ventilator 08/24/16 08:00 98.9 Intake and Output 08/23/16 08/23/16 08/24/16 15:00 23:00 07:00 Intake Total 68.5 ml 571.5 ml 20.6 ml Output Total 0 ml 3012 ml 0 ml Balance 68.5 ml -2440.5 ml 20.6 ml Exam Head: atraumatic, normocephalic Neck: supple Respiratory: diminished breath sounds Cardiovascular: regular rate and rhythm Gastrointestinal: non-tender, soft Extremities: normal pulses Results Result Diagram: 08/24/16 0430 08/23/16 0410 Results 24 hrs Laboratory Tests Test 08/23/16 17:36 08/23/16 21:53 08/24/16 00:32 08/24/16 04:30 Bedside Glucose 170 137 92 Basophils # 0.0 Basophils % 0.4 Blood Morphology Comment Eosinophils # 0.0 Eosinophils % 0.6 Hematocrit 23.2 L Hemoglobin 7.9 L Lymphocytes # 1.0 Lymphocytes % 14.2 L Mean Corpuscular Hemoglobin 33.4 H Mean Corpuscular Hemoglobin Concent 33.9 Mean Corpuscular Volume 98.5 Mean Platelet Volume 7.9 Monocytes # 0.4 Monocytes % 5.9 Neutrophils # 5.6 Neutrophils % 78.9 H Nucleated Red Blood Cells # 0.0 Nucleated Red Blood Cells % 0.0 Platelet Count 67 L Red Blood Count 2.36 L Red Cell Distribution Width 16.6 H White Blood Count 7.0 Test 08/24/16 06:16 08/24/16 08:52 08/24/16 09:15 08/24/16 10:03 Bedside Glucose 71 53 L 107 75 Test 08/24/16 11:09 08/24/16 12:52 08/24/16 13:13 08/24/16 13:43 Bedside Glucose 74 61 L 97 89 Medications Medications Current Medications Fluticasone Propionate (Flonase 0.05% Nasal) 1 spray BID NASAL Last administered on 08/24/16 08:55; Admin Dose 1 SPRAY; Start 07/26/16 at 10:00 Epoetin [place] (Epogen (Esrd)) 10,000 units MoWeFr@17 SC Last administered on 08/22 16:54; Admin Dose 10,000 UNITS; Start 07/27/16 at 17:00; Status Future hold Hydralazine HCl 10 mg 10 mg Q6H PRN IV ELEVATED BLOOD PRESSURE Last administered on 08/15/16at 15:37; Admin Dose 10 MG; Start 07/29/16 at 13:00 Midazolam HCl/ Dextrose (Versed/D5W) 50 ml @ 1 mls/hr TITRATE IV Last administered on 08/23/16 09:24; Admin Dose 2 MLS/HR; Start 08/01/16 at 23:00 Acetaminophen (Tylenol Tab) 650 mg Q6H PRN GTB PAIN1-3/FEVER ABOVE 100 Last administered on 08/12/16 06:07; Admin Dose 650 MG; Start 08/02/16 at 15:00 Atorvastatin Calcium (Lipitor) 40 mg HS GTB Last administered on 08/23/16 21:49 ; Admin Dose 40 MG; Start 08/02/16 at 21:00 Carvedilol (Coreg) 6.25 mg BID GTB ; Start 08/02/16 at 09:00; Status Future Hold Duloxetine HCl (Cymbalta) 90 mg DAILY GTB Last administered on 08/24/16 08:54; Admin Dose 90 MG; Start 08/02/16 at 09:00 Guaifenesin (Robitussin Liquid Cup) 100 mg Q4 PRN GTB COUGH; Start 08/02/16 at 09:00 Acetaminophen/ Hydrocodone Bitart ([place] (5/325)) 1 tab Q4 PRN GTB WSOB Last administered on 08/24/16 13:14; Admin Dose 1 TAB; Start 08/02/16 at 09:00 Lactobacillus Acidoph/Bulgaricus (Floranex) 1 tab DAILY GTB Last administered on 08/24/16 08:55; Admin Dose 1 TAB; Start 08/02/16 at 09:00 Lorazepam (Ativan) 1 mg Q6H PRN GTB ANXIETY Last administered on 08/18/16at 10: 45; Admin Dose 1 MG; Start 08/02/16 at 09:00 Multivit/Ca Carb/ B Cmplx/FA/Prenat (Cheryl-Darcie) 1 tab DAILY GTB Last administered on 08/24/16 08:55; Admin Dose 1 TAB; Start 08/02/16 at 09:00 Aspirin (Aspirin) 81 mg DAILY GTB Last administered on 08/24/16 08:55; Admin Dose 81 MG; Start 08/02/16 at 09:00 Lansoprazole 30 mg 30 mg DAILY@06 GTB Last administered on 08/24/16 06:09; Admin Dose 30 MG; Start 08/02/16 at 10:00 Phenylephrine HCl 80 mg/Dextrose 250 ml @ 18.75 mls/ hr TITRATE IV ; Start at 12:30 Norepinephrine/ Dextrose (Levophed/D5W) 500 ml @ 1.87 mls/hr TITRATE IV Last administered on 08/16/16at 01:50; Admin Dose 3.75 MLS/HR; Start 08/05/16 at 12: 00 Vancomycin HCl (Vancomycin Oral Syringe) 125 mg Q6 NGT Last administered on 08/24 12:41; Admin Dose 125 MG; Start 08/06/16 at 18:00 Sildenafil Citrate (Revatio) 20 mg BID PO Last administered on 08/11/16at 11:56 ; Admin Dose 20 MG; Start 08/08/16 at 21:00; Status Future Hold Lorazepam (Ativan) 0.5 mg Q4 PRN IV ANXIETY Last administered on 08/24/16 04:04 ; Admin Dose 0.5 MG; Start 08/09/16 at 00:00 Methylprednisolone Sodium Succinate (Solu-Medrol) 20 mg DAILY IV Last administered on 08/24/16 08:55; Admin Dose 20 MG; Start 08/10/16 at 09:00 Miscellaneous Information 1 ea NOTE XX ; Start 08/11/16 at 12:00 Glucose (Glutose) 15 gm Q15M PRN PO DECREASED GLUCOSE; Start 08/11/16 at 12:00 Glucose (Glutose) 22.5 gm Q15M PRN PO DECREASED GLUCOSE; Start 08/11/16 at 12: 00 Dextrose (D50w Syringe) 25 ml Q15M PRN IV DECREASED GLUCOSE Last administered on 08/24/16 12:54; Admin Dose 25 ML; Start 08/11/16 at 12:00 Dextrose (D50w Syringe) 50 ml Q15M PRN IV DECREASED GLUCOSE; Start 08/11/16 at 12:00 Glucagon (Glucagen) 1 mg Q15M PRN IM DECREASED GLUCOSE; Start 08/11/16 at 12: 00 Glucose (Glutose) 15 gm Q15M PRN BUCCAL DECREASED GLUCOSE; Start 08/11/16 at 12:00 Insulin Aspart (Novolog Insulin Pen) NOVOLOG *MODERATE* ALGORI... Q4 SC Last administered on 08/23/16 17:39; Admin Dose 2 UNIT; Start 08/11/16 at 17:00 IV Flush (NS 10 ml) 10 ml PRN PRN IV IV PROTOCOL; Start 08/13/16 at 18:00 Collagenase (Santyl) 1 applic DAILY@22 TOP Last administered on 08/22/16 21:05 ; Admin Dose 1 APPLIC; Start 08/15/16 at 22:00 Insulin Glargine 25 unit 25 unit QAM SC Last administered on 08/23/16 09:13; Admin Dose 25 UNIT; Start 08/18/16 at 09:00 Fentanyl/Dextrose (D5W) 100 ml @ 2.6 mls/hr TITRATE IV Last administered on 09:43; Admin Dose 14 MLS/HR; Start 08/24/16 at 09:40 LESLIE PEDROZA Aug 24, 2016 14:11
--- NOTE | 2016-08-24 16:06 | PN ---
Date/Time of Note Date/Time of Note DATE: 08/24/16 TIME: 16:05 Assessment/Plan Lines/Catheters IV Catheter Type (from Nrsg): PICC Line Vicente in Place (from Nrs): No Assessment/Plan Chief Complaint/Hosp Course IMPRESSION: 1. Respiratory failure. 2. Coagulopathy. 3. Anemia. RECOMMENDATIONS: SP tracheostomy Will continue supp care Discussed with the referring physicians. Problems: Subjective 24 Hr Interval Summary Pain Control: mild Exam/Review of Systems Vital Signs Vitals Vital Signs Date Time Temp Pulse Resp B/P Pulse Ox O2 Delivery O2 Flow Rate FiO2 08/24/16 16:00 30 08/24/16 15:20 94 21 98 08/24/16 11:00 132/61 Mechanical Ventilator 08/24/16 08:00 98.9 Intake and Output 08/23/16 08/23/16 08/24/16 14:59 22:59 06:59 Intake Total 66.0 ml 581.0 ml 3 ml Output Total 0 ml 3012 ml 0 ml Balance 66.0 ml -2431.0 ml 3 ml Exam Neck: non-tender, supple Respiratory: clear to auscultation, normal air movement Cardiovascular: nl pulses, regular rate and rhythm Gastrointestinal: nl liver, spleen, non-tender, soft Results Result Diagram: 08/24/16 0430 08/23/16 0410 SAUL HUMPHREY MD Aug 24, 2016 16:06
[2016-08-24] MEDS: EPOETIN 10000 UNITS/1 ML INJ (ESRD) SC SCH (17:48)
[2016-08-24] MEDS: ATORVASTATIN 40 MG TAB GTB SCH (21:04)
[2016-08-24] MEDS: COLLAGENASE 30 GM TUBE TOP SCH (22:30)
[2016-08-25] VITALS (31 sets, daily range): BP systolic 97–163; BP diastolic 41–62; PULSE 72–101; RESP 15–20
[2016-08-25] MEDS: ALBUTEROL HFA 8 GM INHALER INH SCH ×4 (01:04→20:55)
[2016-08-25] MEDS: IPRATROPIUM (HFA) 12.9 GM INHALER INH SCH ×4 (01:04→20:55)
[2016-08-25] MEDS: INSULIN ASPART [NOVOLOG] 3 ML PEN SC SCH ×5 (04:00→22:04)
--- NOTE | 2016-08-25 06:22 | PN ---
Date/Time of Note Date/Time of Note DATE: 08/25/16 TIME: 06:21 Assessment/Plan VTE Prophylaxis VTE Prophylaxis Intervention: SCD's Lines/Catheters IV Catheter Type (from Nrs): PICC Line Central line still needed: No Urinary Cath still in place: No Reason Cath still needed: urinary retention Assessment/Plan Assessment/Plan Respiratory failure status post intubation Sepsis Minimally elevated troponin DVT Diastolic congestive heart failure End-stage renal disease on hemodialysis CAD with history of PCI Diabetes Peripheral arterial disease with history of amputation Pulmonary hypertension -Patient status post tracheostomy and PEG placement yesterday. -Anemia and s/p blood transfusion - remains anemic - If blood pressure trend remained stable, would reinitiate beta shivani and revatio in the near future. Subjective 24 Hr Interval Summary Free Text/Dictation The patient with no change Exam/Review of Systems Vital Signs Vitals Vital Signs Date Time Temp Pulse Resp B/P Pulse Ox O2 Delivery O2 Flow Rate FiO2 08/25/16 05:02 103 20 98 30 08/25/16 03:06 99.0 117/56 08/24/16 21:00 Mechanical Ventilator Intake and Output 08/24/16 08/24/16 08/25/16 15:00 23:00 07:00 Intake Total 353.25 ml 190 ml Balance 353.25 ml 190 ml Results Result Diagram: 08/24/16 0430 08/23/16 0410 Results 24 hrs Laboratory Tests Test 08/24/16 08:52 08/24/16 09:15 08/24/16 10:03 08/24/16 11:09 Bedside Glucose 53 L 107 75 74 Test 08/24/16 12:52 08/24/16 13:13 08/24/16 13:43 08/24/16 17:45 Bedside Glucose 61 L 97 89 92 Test 08/24/16 20:54 08/24/16 23:52 08/25/16 04:09 Bedside Glucose 111 92 101 Medications Medications Current Medications Fluticasone Propionate (Flonase 0.05% Nasal) 1 spray BID NASAL Last administered on 08/24/16 08:55; Admin Dose 1 SPRAY; Start 07/26/16 at 10:00 Epoetin [place] (Epogen (Esrd)) 10,000 units MoWeFr@17 SC Last administered on 08/24 17:48; Admin Dose 10,000 UNITS; Start 07/27/16 at 17:00; Status Future hold Hydralazine HCl (Apresoline) 10 mg Q6H PRN IV ELEVATED BLOOD PRESSURE Last administered on 08/15/16at 15:37; Admin Dose 10 MG; Start 07/29/16 at 13:00 Acetaminophen (Tylenol Tab) 650 mg Q6H PRN GTB PAIN1-3/FEVER ABOVE 100 Last administered on 08/12/16at 06:07; Admin Dose 650 MG; Start 08/02/16 at 15:00 Atorvastatin Calcium (Lipitor) 40 mg HS GTB Last administered on 08/24/16 21:04 ; Admin Dose 40 MG; Start 08/02/16 at 21:00 Carvedilol (Coreg) 6.25 mg BID GTB ; Start 08/02/16 at 09:00; Status Future hold Duloxetine HCl (Cymbalta) 90 mg DAILY GTB Last administered on 08/24/16 08:54; Admin Dose 90 MG; Start 08/02/16 at 09:00 Guaifenesin (Robitussin Liquid Cup) 100 mg Q4 PRN GTB COUGH; Start 08/02/16 at 09:00 Acetaminophen/ Hydrocodone Bitart ([place] (5/325)) 1 tab Q4 PRN GTB WSOB Last administered on 08/24/16 21:04; Admin Dose 1 TAB; Start 08/02/16 at 09:00 Lactobacillus Acidoph/Bulgaricus (Floranex) 1 tab DAILY GTB Last administered on 08/24/16 08:55; Admin Dose 1 TAB; Start 08/02/16 at 09:00 Lorazepam (Ativan) 1 mg Q6H PRN GTB ANXIETY Last administered on 08/18/16at 10: 45; Admin Dose 1 MG; Start 08/02/16 at 09:00 Multivit/Ca Carb/ B Cmplx/FA/Prenat (Cheryl-Darcie) 1 tab DAILY GTB Last administered on 08/24/16 08:55; Admin Dose 1 TAB; Start 08/02/16 at 09:00 Aspirin (Aspirin) 81 mg DAILY GTB Last administered on 08/24/16 08:55; Admin Dose 81 MG; Start 08/02/16 at 09:00 Lansoprazole (Prevacid) 30 mg DAILY@06 GTB Last administered on 08/24/16 06:09 ; Admin Dose 30 MG; Start 08/02/16 at 10:00 Vancomycin HCl (Vancomycin Oral Syringe) 125 mg Q6 NGT Last administered on 08/24 23:50; Admin Dose 125 MG; Start 08/06/16 at 18:00 Sildenafil Citrate (Revatio) 20 mg BID PO Last administered on 08/11/16at 11:56 ; Admin Dose 20 MG; Start 08/08/16 at 21:00; Status Future hold Lorazepam (Ativan) 0.5 mg Q4 PRN IV ANXIETY Last administered on 08/24/16 04:04 ; Admin Dose 0.5 MG; Start 08/09/16 at 00:00 Methylprednisolone Sodium Succinate (Solu-Medrol) 20 mg DAILY IV Last administered on 08/24/16 08:55; Admin Dose 20 MG; Start 08/10/16 at 09:00 Miscellaneous Information 1 ea NOTE XX ; Start 08/11/16 at 12:00 Glucose (Glutose) 15 gm Q15M PRN PO DECREASED GLUCOSE; Start 08/11/16 at 12:00 Glucose (Glutose) 22.5 gm Q15M PRN PO DECREASED GLUCOSE; Start 08/11/16 at 12: 00 Dextrose (D50w Syringe) 25 ml Q15M PRN IV DECREASED GLUCOSE Last administered on 08/24/16 12:54; Admin Dose 25 ML; Start 08/11/16 at 12:00 Dextrose (D50w Syringe) 50 ml Q15M PRN IV DECREASED GLUCOSE; Start 08/11/16 at 12:00 Glucagon (Glucagen) 1 mg Q15M PRN IM DECREASED GLUCOSE; Start 08/11/16 at 12: 00 Glucose (Glutose) 15 gm Q15M PRN BUCCAL DECREASED GLUCOSE; Start 08/11/16 at 12:00 Insulin Aspart (Novolog Insulin Pen) NOVOLOG *MODERATE* ALGORI... Q4 SC Last administered on 08/23/16 17:39; Admin Dose 2 UNIT; Start 08/11/16 at 17:00 IV Flush (NS 10 ml) 10 ml PRN PRN IV IV PROTOCOL; Start 08/13/16 at 18:00 Collagenase (Santyl) 1 applic DAILY@22 TOP Last administered on 08/24/16 22:30 ; Admin Dose 1 APPLIC; Start 08/15/16 at 22:00 Insulin Glargine (Lantus) 25 unit QAM SC Last administered on 08/23/16 09:13; Admin Dose 25 UNIT; Start 08/18/16 at 09:00 MARIANA [place] MD Aug 25, 2016 06:22
[2016-08-25] MEDS: VANCOMYCIN HCL 250 MG/5ML POSYG NGT SCH (06:27)
[2016-08-25] MEDS: LANSOPRAZOLE 30 MG CAP GTB SCH (06:28)
[2016-08-25] MEDS: SILDENAFIL 20 MG TAB PO SCH (09:00)
[2016-08-25] MEDS: LACTOBACILLUS CHEW TAB GTB SCH (09:43)
[2016-08-25] MEDS: MULTIVIT/CA CARB/B CMPLX/FA TAB GTB SCH (09:43)
[2016-08-25] MEDS: ASPIRIN 81 MG TAB GTB SCH (09:43)
[2016-08-25] MEDS: METHYLPREDNISOLONE 40 MG INJ IV SCH (09:44)
[2016-08-25] MEDS: DULOXETINE 30 MG CAP DR GTB SCH (09:44)
[2016-08-25] MEDS: FLUTICASONE 0.05% 16 GM NAS SPRAY NASAL SCH ×2 (09:45→21:52)
[2016-08-25] MEDS: INSULIN GLARGINE [LANtus] 3 ML PEN SC SCH (09:48)
--- NOTE | 2016-08-25 09:48 | CONS ---
Date/Time of Note Date/Time of Note DATE: 08/25/16 TIME: 09:42 Assessment/Plan Assessment/Plan Additional Assessment/Plan ckd 5 dialysis dependent aspiration pneumonia Parkinsons Organic brain syndrome ?toxic metabolic anemia post transfustion 1 unit of prbc stable thrombocytopenia Dialysis Saturday follow up labs Consultation Date/Type/Reason Admit Date/Time Jul 26, 2016 at 01:55 Initial Consult Date 07/29/16 Type of Consultation: Renal Reason for Consultation ckd 5 dialysis dependent Referring Provider: GRACIE KATHLEEN 24 HR Interval Summary Subjective hx not possible: pt non-verbal Exam/Review of Systems Vital Signs Vitals Vital Signs Date Time Temp Pulse Resp B/P Pulse Ox O2 Delivery O2 Flow Rate FiO2 08/25/16 09:00 93 08/25/16 08:18 98.6 20 113/41 100 08/25/16 07:15 30 08/24/16 21:00 Mechanical Ventilator Intake and Output 08/24/16 08/24/16 08/25/16 15:00 23:00 07:00 Intake Total 353.25 ml 190 ml Balance 353.25 ml 190 ml Exam Constitutional: frail, non-verbal Respiratory: clear to auscultation Cardiovascular: regular rate and rhythm Gastrointestinal: soft Extremities: other (no edema) Neurological: lethargic Additional Comments just completed dialysis without drop in bp and 3.5 liters removed and 1 unit given of prbc Results Result Diagram: 08/24/16 0430 08/23/16 0410 Results 24 hrs Laboratory Tests Test 08/24/16 10:03 08/24/16 11:09 08/24/16 12:52 08/24/16 13:13 Bedside Glucose 75 74 61 L 97 Test 08/24/16 13:43 08/24/16 17:45 08/24/16 20:54 08/24/16 23:52 Bedside Glucose 89 92 111 92 Test 08/25/16 04:09 08/25/16 09:31 Bedside Glucose 101 172 Medications Medications Current Medications Fluticasone Propionate (Flonase 0.05% Nasal) 1 spray BID NASAL Last administered on 08/24/16 08:55; Admin Dose 1 SPRAY; Start 07/26/16 at 10:00 Epoetin [place] (Epogen (Esrd)) 10,000 units MoWeFr@17 SC Last administered on 08/24 17:48; Admin Dose 10,000 UNITS; Start 07/27/16 at 17:00; Status Future hold Hydralazine HCl (Apresoline) 10 mg Q6H PRN IV ELEVATED BLOOD PRESSURE Last administered on 08/15/16at 15:37; Admin Dose 10 MG; Start 07/29/16 at 13:00 Acetaminophen (Tylenol Tab) 650 mg Q6H PRN GTB PAIN1-3/FEVER ABOVE 100 Last administered on 08/12/16at 06:07; Admin Dose 650 MG; Start 08/02/16 at 15:00 Atorvastatin Calcium (Lipitor) 40 mg HS GTB Last administered on 08/24/16 21:04 ; Admin Dose 40 MG; Start 08/02/16 at 21:00 Carvedilol (Coreg) 6.25 mg BID GTB ; Start 08/02/16 at 09:00; Status Future hold Duloxetine HCl (Cymbalta) 90 mg DAILY GTB Last administered on 08/24/16 08:54; Admin Dose 90 MG; Start 08/02/16 at 09:00 Guaifenesin (Robitussin Liquid Cup) 100 mg Q4 PRN GTB COUGH; Start 08/02/16 at 09:00 Acetaminophen/ Hydrocodone Bitart ([place] (5/325)) 1 tab Q4 PRN GTB WSOB Last administered on 08/24/16 21:04; Admin Dose 1 TAB; Start 08/02/16 at 09:00 Lactobacillus Acidoph/Bulgaricus (Floranex) 1 tab DAILY GTB Last administered on 08/24/16 08:55; Admin Dose 1 TAB; Start 08/02/16 at 09:00 Lorazepam (Ativan) 1 mg Q6H PRN GTB ANXIETY Last administered on 08/18/16at 10: 45; Admin Dose 1 MG; Start 08/02/16 at 09:00 Multivit/Ca Carb/ B Cmplx/FA/Prenat (Cheryl-Darcie) 1 tab DAILY GTB Last administered on 08/24/16 08:55; Admin Dose 1 TAB; Start 08/02/16 at 09:00 Aspirin (Aspirin) 81 mg DAILY GTB Last administered on 08/24/16 08:55; Admin Dose 81 MG; Start 08/02/16 at 09:00 Lansoprazole (Prevacid) 30 mg DAILY@06 GTB Last administered on 08/25/16 06:28 ; Admin Dose 30 MG; Start 08/02/16 at 10:00 Vancomycin HCl (Vancomycin Oral Syringe) 125 mg Q6 NGT Last administered on 08/25 06:27; Admin Dose 125 MG; Start 08/06/16 at 18:00 Sildenafil Citrate (Revatio) 20 mg BID PO Last administered on 08/11/16at 11:56 ; Admin Dose 20 MG; Start 08/08/16 at 21:00; Status Future hold Lorazepam (Ativan) 0.5 mg Q4 PRN IV ANXIETY Last administered on 08/24/16 04:04 ; Admin Dose 0.5 MG; Start 08/09/16 at 00:00 Methylprednisolone Sodium Succinate (Solu-Medrol) 20 mg DAILY IV Last administered on 08/24/16 08:55; Admin Dose 20 MG; Start 08/10/16 at 09:00 Miscellaneous Information 1 ea NOTE XX ; Start 08/11/16 at 12:00 Glucose (Glutose) 15 gm Q15M PRN PO DECREASED GLUCOSE; Start 08/11/16 at 12:00 Glucose (Glutose) 22.5 gm Q15M PRN PO DECREASED GLUCOSE; Start 08/11/16 at 12: 00 Dextrose (D50w Syringe) 25 ml Q15M PRN IV DECREASED GLUCOSE Last administered on 08/24/16 12:54; Admin Dose 25 ML; Start 08/11/16 at 12:00 Dextrose (D50w Syringe) 50 ml Q15M PRN IV DECREASED GLUCOSE; Start 08/11/16 at 12:00 Glucagon (Glucagen) 1 mg Q15M PRN IM DECREASED GLUCOSE; Start 08/11/16 at 12: 00 Glucose (Glutose) 15 gm Q15M PRN BUCCAL DECREASED GLUCOSE; Start 08/11/16 at 12:00 Insulin Aspart (Novolog Insulin Pen) NOVOLOG *MODERATE* ALGORI... Q4 SC Last administered on 08/23/16 17:39; Admin Dose 2 UNIT; Start 08/11/16 at 17:00 IV Flush (NS 10 ml) 10 ml PRN PRN IV IV PROTOCOL; Start 08/13/16 at 18:00 Collagenase (Santyl) 1 applic DAILY@22 TOP Last administered on 08/24/16 22:30 ; Admin Dose 1 APPLIC; Start 08/15/16 at 22:00 Insulin Glargine (Lantus) 25 unit QAM SC Last administered on 08/23/16 09:13; Admin Dose 25 UNIT; Start 08/18/16 at 09:00 SHAWN BERRY MD Aug 25, 2016 09:47
[2016-08-25 10:40] LABS: BASOPHILS % 0.4 % (0.0-2.0); EOSINOPHILS # 0.1 10^3/ul (0.0-0.5); EOSINOPHILS % 0.7 % (0.0-7.0); HEMATOCRIT 26.7 % (42.0-52.0); LYMPHOCYTES # 0.6 10^3/ul (0.8-2.9); LYMPHOCYTES % 6.7 % (15.0-51.0); MEAN CORPUSCULAR HEMOGLOBIN 32.5 pg (29.0-33.0); MEAN CORPUSCULAR HGB CONC 33.7 g/dl (32.0-37.0); MEAN CORPUSCULAR VOLUME 96.5 fl (82.0-101.0); MEAN PLATELET VOLUME 7.6 fl (7.4-10.4); MONOCYTE # 0.4 10^3/ul (0.3-0.9); NEUTROPHIL # 8.4 10^3/ul (1.6-7.5); NEUTROPHILS % 88.2 % (39.0-77.0); PLATELET COUNT 77 10^3/UL (140-440); RED BLOOD COUNT 2.76 10^6/ul (4.70-6.10); RED CELL DISTRIBUTION WIDTH 18.2 % (11.5-14.5); UNCORRECTED WBC 9.5 10^3/ul (4.8-10.8); WHITE BLOOD COUNT 9.5 10^3/ul (4.8-10.8)
[2016-08-25 10:46] LABS: ALBUMIN 2.6 g/dl (3.3-4.9)
[2016-08-25 10:49] LABS: BILIRUBIN,INDIRECT 0.8 mg/dl (0-1.1); BILIRUBIN,TOTAL 0.8 mg/dl (0.2-1.3); CREATININE 1.69 mg/dl (0.61-1.24)
[2016-08-25 10:50] LABS: ALBUMIN/GLOBULIN RATIO 1.04; CALCIUM 7.6 mg/dl (8.4-10.2); POTASSIUM 2.8 mmol/L (3.5-5.1); TOTAL PROTEIN 5.1 g/dl (6.1-8.1)
[2016-08-25 11:09] LABS: CONDITION 1; LH ANALYZER COMMENTS 1
--- NOTE | 2016-08-25 11:30 | CONS ---
Date/Time of Note Date/Time of Note DATE: 08/25/16 TIME: 11:26 Assessment/Plan Assessment/Plan Chief Complaint/Hosp Course assessment/impression: - VDRF s/p trach - h/o aspiration PNA: respiratory Cx on 08/10 grew MSSA and C. Albicans - h/o septic shock - h/o C diff colitis, last C diff test on 08/24/2016 negative - h/o intermittent fever - h/o RUE cellulitis complicated by axillary/cephalic venous thrombosis - toxic metabolic encephalopathy - ESRD on HD - Diastolic CHF, CAD with Hx PCI, paroxysmal atrial tachycardia - Old partial DVT of the right internal jugular vein. - PAD s/p BKA - underlying Parkinson's disease - Stage 2 coccyx decub - PCN allergic - G tube dependent - thrombocytopenia - borderline positive [id number] level. 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 - s/p imipenem (08/05- 08/14), IV vanco (07/29-08/13), aztreonam (07/29-08/05), cefazolin (08/14-08/23), caspo (08/11-08/23) Problems: Additional Assessment/Plan recommendations: - d/c pGT vancomycin (07/1916-) - give 5 day course of renally dosed acyclovir for HSV infection on L face management d/w Pt's RN Consultation Date/Type/Reason Admit Date/Time Jul 26, 2016 at 01:55 Initial Consult Date 07/29/16 Type of Consultation: ID Referring Provider: GRACIE KATHLEEN 24 HR Interval Summary Subjective hx not possible: pt non-verbal Exam/Review of Systems Vital Signs Vitals Vital Signs Date Time Temp Pulse Resp B/P Pulse Ox O2 Delivery O2 Flow Rate FiO2 08/25/16 11:05 99 20 100 30 08/25/16 08:18 98.6 113/41 08/24/16 21:00 Mechanical Ventilator Intake and Output 08/24/16 08/24/16 08/25/16 15:00 23:00 07:00 Intake Total 353.25 ml 190 ml Balance 353.25 ml 190 ml Exam Constitutional: frail, non-verbal Psych: confusion Head: atraumatic, normocephalic Eyes: nl conjunctiva, nl lids ENMT: nl external ears & nose, nl nasal mucosa & septum Neck: other (trach) Respiratory: diminished breath sounds Cardiovascular: nl pulses, regular rate and rhythm Gastrointestinal: non-tender, other (GT), soft Musculoskeletal: other (s/p L BKA) Neurological: confused, lethargic Skin: other (tender vesicles and blisters on L cheek) Results Result Diagram: 08/25/16 1024 08/25/16 1024 Results 24 hrs Laboratory Tests Test 08/24/16 12:52 08/24/16 13:13 08/24/16 13:43 08/24/16 17:45 Bedside Glucose 61 L 97 89 92 Test 08/24/16 20:54 08/24/16 23:52 08/25/16 04:09 08/25/16 09:31 Bedside Glucose 111 92 101 172 Test 08/25/16 10:24 Alanine Aminotransferase (ALT/SGPT) 21 Albumin 2.6 L Albumin/Globulin Ratio 1.04 Alkaline Phosphatase 156 H Anion Gap 12 Aspartate Amino Transf (AST/SGOT) 43 Basophils # 0.0 Basophils % 0.4 Blood Morphology Comment Blood Urea Nitrogen 27 H Calcium Level 7.6 L Carbon Dioxide Level 30 Chloride Level 98 Creatinine 1.69 H Direct Bilirubin 0.00 Eosinophils # 0.1 Eosinophils % 0.7 Globulin 2.50 Glucose Level 161 Hematocrit 26.7 L Hemoglobin 9.0 L Indirect Bilirubin 0.8 Lymphocytes # 0.6 L Lymphocytes % 6.7 L Mean Corpuscular Hemoglobin 32.5 Mean Corpuscular Hemoglobin Concent 33.7 Mean Corpuscular Volume 96.5 Mean Platelet Volume 7.6 Monocytes # 0.4 Monocytes % 4.0 Neutrophils # 8.4 H Neutrophils % 88.2 H Nucleated Red Blood Cells # 0.0 Nucleated Red Blood Cells % 0.0 Platelet Count 77 L Potassium Level 2.8 *L Red Blood Count 2.76 L Red Cell Distribution Width 18.2 H Sodium Level 137 Total Bilirubin 0.8 Total Protein 5.1 L White Blood Count 9.5 # Medications Medications Current Medications Fluticasone Propionate (Flonase 0.05% Nasal) 1 spray BID NASAL Last administered on 08/25/16t 09:45; Admin Dose 1 SPRAY; Start 07/26/16 at 10:00 Epoetin [place] (Epogen (Esrd)) 10,000 units MoWeFr@17 SC Last administered on 08/24 17:48; Admin Dose 10,000 UNITS; Start 07/27/16 at 17:00; Status Future hold Hydralazine HCl (Apresoline) 10 mg Q6H PRN IV ELEVATED BLOOD PRESSURE Last administered on 08/15/16at 15:37; Admin Dose 10 MG; Start 07/29/16 at 13:00 Acetaminophen (Tylenol Tab) 650 mg Q6H PRN GTB PAIN1-3/FEVER ABOVE 100 Last administered on 08/12/16at 06:07; Admin Dose 650 MG; Start 08/02/16 at 15:00 Atorvastatin Calcium (Lipitor) 40 mg HS GTB Last administered on 08/24/16 21:04 ; Admin Dose 40 MG; Start 08/02/16 at 21:00 Carvedilol (Coreg) 6.25 mg BID GTB ; Start 08/02/16 at 09:00; Status Future hold Duloxetine HCl (Cymbalta) 90 mg DAILY GTB Last administered on 08/25/16 09:44; Admin Dose 90 MG; Start 08/02/16 at 09:00 Guaifenesin (Robitussin Liquid Cup) 100 mg Q4 PRN GTB COUGH; Start 08/02/16 at 09:00 Acetaminophen/ Hydrocodone Bitart ([place] (5/325)) 1 tab Q4 PRN GTB WSOB Last administered on 08/24/16 21:04; Admin Dose 1 TAB; Start 08/02/16 at 09:00 Lactobacillus Acidoph/Bulgaricus (Floranex) 1 tab DAILY GTB Last administered on 08/25/16 09:43; Admin Dose 1 TAB; Start 08/02/16 at 09:00 Lorazepam (Ativan) 1 mg Q6H PRN GTB ANXIETY Last administered on 08/18/16at 10: 45; Admin Dose 1 MG; Start 08/02/16 at 09:00 Multivit/Ca Carb/ B Cmplx/FA/Prenat (Cheryl-Darcie) 1 tab DAILY GTB Last administered on 08/25/16 09:43; Admin Dose 1 TAB; Start 08/02/16 at 09:00 Aspirin (Aspirin) 81 mg DAILY GTB Last administered on 08/25/16 09:43; Admin Dose 81 MG; Start 08/02/16 at 09:00 Lansoprazole (Prevacid) 30 mg DAILY@06 GTB Last administered on 08/25/16 06:28 ; Admin Dose 30 MG; Start 08/02/16 at 10:00 Vancomycin HCl (Vancomycin Oral Syringe) 125 mg Q6 NGT Last administered on 08/25 06:27; Admin Dose 125 MG; Start 08/06/16 at 18:00 Sildenafil Citrate (Revatio) 20 mg BID PO Last administered on 08/11/16at 11:56 ; Admin Dose 20 MG; Start 08/08/16 at 21:00; Status Future hold Lorazepam (Ativan) 0.5 mg Q4 PRN IV ANXIETY Last administered on 08/24/16 04:04 ; Admin Dose 0.5 MG; Start 08/09/16 at 00:00 Methylprednisolone Sodium Succinate (Solu-Medrol) 20 mg DAILY IV Last administered on 08/25/16 09:44; Admin Dose 20 MG; Start 08/10/16 at 09:00 Miscellaneous Information 1 ea NOTE XX ; Start 08/11/16 at 12:00 Glucose (Glutose) 15 gm Q15M PRN PO DECREASED GLUCOSE; Start 08/11/16 at 12:00 Glucose (Glutose) 22.5 gm Q15M PRN PO DECREASED GLUCOSE; Start 08/11/16 at 12: 00 Dextrose (D50w Syringe) 25 ml Q15M PRN IV DECREASED GLUCOSE Last administered on 08/24/16 12:54; Admin Dose 25 ML; Start 08/11/16 at 12:00 Dextrose (D50w Syringe) 50 ml Q15M PRN IV DECREASED GLUCOSE; Start 08/11/16 at 12:00 Glucagon (Glucagen) 1 mg Q15M PRN IM DECREASED GLUCOSE; Start 08/11/16 at 12: 00 Glucose (Glutose) 15 gm Q15M PRN BUCCAL DECREASED GLUCOSE; Start 08/11/16 at 12:00 Insulin Aspart (Novolog Insulin Pen) NOVOLOG *MODERATE* ALGORI... Q4 SC Last administered on 08/25/16 09:49; Admin Dose 2 UNIT; Start 08/11/16 at 17:00 IV Flush (NS 10 ml) 10 ml PRN PRN IV IV PROTOCOL; Start 08/13/16 at 18:00 Collagenase (Santyl) 1 applic DAILY@22 TOP Last administered on 08/24/16 22:30 ; Admin Dose 1 APPLIC; Start 08/15/16 at 22:00 Insulin Glargine (Lantus) 25 unit QAM SC Last administered on 08/25/16 09:48; Admin Dose 25 UNIT; Start 08/18/16 at 09:00 SADIA LONDON M.D. Aug 25, 2016 11:30
--- NOTE | 2016-08-25 11:53 | PN ---
Date/Time of Note Date/Time of Note DATE: 08/25/16 TIME: 11:53 Assessment/Plan VTE Prophylaxis VTE Prophylaxis Intervention: other Lines/Catheters IV Catheter Type (from [facility]): PICC Line Central line still needed: Yes Urinary Cath still in place: No Assessment/Plan Chief Complaint/Hosp Course 1. Acute respiratory failure - had to be reintubated, probably will need subacute, trach 2. Possible pneumonia- right lower lobe infiltrate- possible aspiration pneumonia per Pulmonary. Sputum grew 08/02 rare jerry albicans - per Dr. Reardon in infectious disease consultation. 3. Early sepsis d/t C diff - recurrent leukocytosis improving and low grade fever resolving. 4. End-stage renal disease hemodialysis dependent. - on HD - per Dr. Bassett in nephrology consultation 5. Diastolic congestive heart failure. Continue to remove fluid was hemodialysis. 6. Partial right internal jugular DVT. Continue Coumadin. Continue daily PT PTT. 7. C diff stool - per ID - on po Vanco - contact isolation 8. RUE cellulitis with axillary/cephalic venous thrombosis - PER id 9. Hyperglycemia- GLYCEMIC Control- stable 10. Toxic metabolic encephalopathy 11. Osteoporosis. 12. Pulmonary hypertension. Continue sildenafil. 13. Coronary artery disease with history of PCI. 14. Depression. Continue Cymbalta 15. History of left hip fracture, treated conservatively. Problems: Subjective 24 Hr Interval Summary Free Text/Dictation Patient has no complaints Exam/Review of Systems Vital Signs Vitals Vital Signs Date Time Temp Pulse Resp B/P Pulse Ox O2 Delivery O2 Flow Rate FiO2 08/25/16 11:05 99 20 100 30 08/25/16 08:18 98.6 113/41 08/24/16 21:00 Mechanical Ventilator Intake and Output 08/24/16 08/24/16 08/25/16 15:00 23:00 07:00 Intake Total 353.25 ml 190 ml Balance 353.25 ml 190 ml Exam Constitutional: well developed Head: atraumatic, normocephalic Neck: supple Respiratory: clear to auscultation Cardiovascular: regular rate and rhythm Gastrointestinal: non-tender, soft Extremities: normal pulses Results Result Diagram: 08/25/16 1024 08/25/16 1024 Results 24 hrs Laboratory Tests Test 08/24/16 12:52 08/24/16 13:13 08/24/16 13:43 08/24/16 17:45 Bedside Glucose 61 L 97 89 92 Test 08/24/16 20:54 08/24/16 23:52 08/25/16 04:09 08/25/16 09:31 Bedside Glucose 111 92 101 172 Test 08/25/16 10:24 Alanine Aminotransferase (ALT/SGPT) 21 Albumin 2.6 L Albumin/Globulin Ratio 1.04 Alkaline Phosphatase 156 H Anion Gap 12 Aspartate Amino Transf (AST/SGOT) 43 Basophils # 0.0 Basophils % 0.4 Blood Morphology Comment Blood Urea Nitrogen 27 H Calcium Level 7.6 L Carbon Dioxide Level 30 Chloride Level 98 Creatinine 1.69 H Direct Bilirubin 0.00 Eosinophils # 0.1 Eosinophils % 0.7 Globulin 2.50 Glucose Level 161 Hematocrit 26.7 L Hemoglobin 9.0 L Indirect Bilirubin 0.8 Lymphocytes # 0.6 L Lymphocytes % 6.7 L Mean Corpuscular Hemoglobin 32.5 Mean Corpuscular Hemoglobin Concent 33.7 Mean Corpuscular Volume 96.5 Mean Platelet Volume 7.6 Monocytes # 0.4 Monocytes % 4.0 Neutrophils # 8.4 H Neutrophils % 88.2 H Nucleated Red Blood Cells # 0.0 Nucleated Red Blood Cells % 0.0 Platelet Count 77 L Potassium Level 2.8 *L Red Blood Count 2.76 L Red Cell Distribution Width 18.2 H Sodium Level 137 Total Bilirubin 0.8 Total Protein 5.1 L White Blood Count 9.5 # Medications Medications Current Medications Fluticasone Propionate (Flonase 0.05% Nasal) 1 spray BID NASAL Last administered on 08/25/16 09:45; Admin Dose 1 SPRAY; Start 07/26/16 at 10:00 Epoetin [place] (Epogen (Esrd)) 10,000 units MoWeFr@17 SC Last administered on 08/24 17:48; Admin Dose 10,000 UNITS; Start 07/27/16 at 17:00; Status Future hold Hydralazine HCl (Apresoline) 10 mg Q6H PRN IV ELEVATED BLOOD PRESSURE Last administered on 08/15/16at 15:37; Admin Dose 10 MG; Start 07/29/16 at 13:00 Acetaminophen (Tylenol Tab) 650 mg Q6H PRN GTB PAIN1-3/FEVER ABOVE 100 Last administered on 08/12/16at 06:07; Admin Dose 650 MG; Start 08/02/16 at 15:00 Atorvastatin Calcium (Lipitor) 40 mg HS GTB Last administered on 08/24/16 21:04 ; Admin Dose 40 MG; Start 08/02/16 at 21:00 Carvedilol (Coreg) 6.25 mg BID GTB ; Start 08/02/16 at 09:00; Status Future hold Duloxetine HCl (Cymbalta) 90 mg DAILY GTB Last administered on 08/25/16 09:44; Admin Dose 90 MG; Start 08/02/16 at 09:00 Guaifenesin (Robitussin Liquid Cup) 100 mg Q4 PRN GTB COUGH; Start 08/02/16 at 09:00 Acetaminophen/ Hydrocodone Bitart ([place] (5/325)) 1 tab Q4 PRN GTB WSOB Last administered on 08/24/16 21:04; Admin Dose 1 TAB; Start 08/02/16 at 09:00 Lactobacillus Acidoph/Bulgaricus (Floranex) 1 tab DAILY GTB Last administered on 08/25/16 09:43; Admin Dose 1 TAB; Start 08/02/16 at 09:00 Lorazepam (Ativan) 1 mg Q6H PRN GTB ANXIETY Last administered on 08/18/16at 10: 45; Admin Dose 1 MG; Start 08/02/16 at 09:00 Multivit/Ca Carb/ B Cmplx/FA/Prenat (Cheryl-Darcie) 1 tab DAILY GTB Last administered on 08/25/16 09:43; Admin Dose 1 TAB; Start 08/02/16 at 09:00 Aspirin (Aspirin) 81 mg DAILY GTB Last administered on 08/25/16 09:43; Admin Dose 81 MG; Start 08/02/16 at 09:00 Lansoprazole (Prevacid) 30 mg DAILY@06 GTB Last administered on 08/25/16 06:28 ; Admin Dose 30 MG; Start 08/02/16 at 10:00 Sildenafil Citrate (Revatio) 20 mg BID PO Last administered on 08/11/16at 11:56 ; Admin Dose 20 MG; Start 08/08/16 at 21:00; Status Future hold Lorazepam (Ativan) 0.5 mg Q4 PRN IV ANXIETY Last administered on 08/24/16 04:04 ; Admin Dose 0.5 MG; Start 08/09/16 at 00:00 Methylprednisolone Sodium Succinate (Solu-Medrol) 20 mg DAILY IV Last administered on 08/25/16 09:44; Admin Dose 20 MG; Start 08/10/16 at 09:00 Miscellaneous Information 1 ea NOTE XX ; Start 08/11/16 at 12:00 Glucose (Glutose) 15 gm Q15M PRN PO DECREASED GLUCOSE; Start 08/11/16 at 12:00 Glucose (Glutose) 22.5 gm Q15M PRN PO DECREASED GLUCOSE; Start 08/11/16 at 12: 00 Dextrose (D50w Syringe) 25 ml Q15M PRN IV DECREASED GLUCOSE Last administered on 08/24/16 12:54; Admin Dose 25 ML; Start 08/11/16 at 12:00 Dextrose (D50w Syringe) 50 ml Q15M PRN IV DECREASED GLUCOSE; Start 08/11/16 at 12:00 Glucagon (Glucagen) 1 mg Q15M PRN IM DECREASED GLUCOSE; Start 08/11/16 at 12: 00 Glucose (Glutose) 15 gm Q15M PRN BUCCAL DECREASED GLUCOSE; Start 08/11/16 at 12:00 Insulin Aspart (Novolog Insulin Pen) NOVOLOG *MODERATE* ALGORI... Q4 SC Last administered on 08/25/16 09:49; Admin Dose 2 UNIT; Start 08/11/16 at 17:00 IV Flush (NS 10 ml) 10 ml PRN PRN IV IV PROTOCOL; Start 08/13/16 at 18:00 Collagenase (Santyl) 1 applic DAILY@22 TOP Last administered on 08/24/16 22:30 ; Admin Dose 1 APPLIC; Start 08/15/16 at 22:00 Insulin Glargine (Lantus) 25 unit QAM SC Last administered on 08/25/16 09:48; Admin Dose 25 UNIT; Start 08/18/16 at 09:00 Acyclovir (Zovirax) 200 mg BID GTB ; Start 08/25/16 at 21:00; Stop 08/30/16 at 20 :59 LESLIE PEDROZA Aug 25, 2016 11:53
--- NOTE | 2016-08-25 12:43 | RADRPT ---
PROCEDURE: XR Chest. CLINICAL INDICATION: CHF TECHNIQUE: Frontal chest x-ray was obtained. COMPARISON: Chest x-ray August 22, 2016 FINDINGS: There has been interval replacement of the endotracheal tube with a tracheostomy and removal of the NG tube. A right upper extremity PICC line remains. There is suboptimal inspiratory effort. Heart is not enlarged. Mediastinum is not widened. No hilar masses seen. Lungs are clear of any i nfiltrates. There is no effusion or pneumothorax. IMPRESSION: No evidence for active cardiopulmonary disease. .Sunday Tomlinson MD, MD Date Time Electronically viewed and signed by .Sunday Tomlinson MD, MD on 08/25/2016 12:43 .A/
--- NOTE | 2016-08-25 14:19 | PN ---
Date/Time of Note Date/Time of Note DATE: 08/25/16 TIME: 14:19 Assessment/Plan Lines/Catheters IV Catheter Type (from Nrs): PICC Line Vicente in Place (from Nrs): No Assessment/Plan Chief Complaint/Hosp Course IMPRESSION: 1. Respiratory failure. 2. Coagulopathy. 3. Anemia. RECOMMENDATIONS: SP tracheostomy Will continue supp care Discussed with the referring physicians. Problems: Subjective 24 Hr Interval Summary Constitutional: improved Pain Control: mild Exam/Review of Systems Vital Signs Vitals Vital Signs Date Time Temp Pulse Resp B/P Pulse Ox O2 Delivery O2 Flow Rate FiO2 08/25/16 13:26 100 20 99 30 08/25/16 12:13 98.7 114/58 08/24/16 21:00 Mechanical Ventilator Intake and Output 08/24/16 08/24/16 08/25/16 15:00 23:00 07:00 Intake Total 353.25 ml 190 ml Balance 353.25 ml 190 ml Exam ENMT: mucosa pink and moist, nl external ears & nose, nl lips & teeth, nl nasal mucosa & septum Neck: non-tender, supple Respiratory: clear to auscultation, normal air movement Cardiovascular: nl pulses, regular rate and rhythm Results Result Diagram: 08/25/16 1024 08/25/16 1024 SAUL HUMPHREY MD Aug 25, 2016 14:19
--- NOTE | 2016-08-25 16:16 | CONS ---
Date/Time of Note Date/Time of Note DATE: 08/25/16 TIME: 16:15 Consult Date/Type/Reason Admit Date/Time Jul 26, 2016 at 01:55 Type of Consultation: Pulm Ordering Provider: GRACIE KATHLEEN Subjective No events on vent. Objective Vital Signs Date Time Temp Pulse Resp B/P Pulse Ox O2 Delivery O2 Flow Rate FiO2 08/25/16 15:15 101 20 99 30 08/25/16 12:13 98.7 114/58 08/24/16 21:00 Mechanical Ventilator Intake and Output 08/24/16 08/24/16 08/25/16 15:00 23:00 07:00 Intake Total 353.25 ml 190 ml Balance 353.25 ml 190 ml NECK: Supple. No JVD or lymphadenopathy. trach in place CARDIAC EXAM: S1, S2. No added sounds or murmurs. CHEST: Diminished air entry bilaterally ABDOMEN: Soft, nontender. No guarding or rebound. EXTREMITIES: No cyanosis, clubbing or edema. Results/Medications Result Diagram: 08/25/16 1024 08/25/16 1024 Results 24 hrs Laboratory Tests Test 08/24/16 17:45 08/24/16 20:54 08/24/16 23:52 08/25/16 04:09 Bedside Glucose 92 111 92 101 Test 08/25/16 09:31 08/25/16 10:24 08/25/16 13:36 Bedside Glucose 172 210 Alanine Aminotransferase (ALT/SGPT) 21 Albumin 2.6 L Albumin/Globulin Ratio 1.04 Alkaline Phosphatase 156 H Anion Gap 12 Aspartate Amino Transf (AST/SGOT) 43 Basophils # 0.0 Basophils % 0.4 Blood Morphology Comment Blood Urea Nitrogen 27 H Calcium Level 7.6 L Carbon Dioxide Level 30 Chloride Level 98 Creatinine 1.69 H Direct Bilirubin 0.00 Eosinophils # 0.1 Eosinophils % 0.7 Globulin 2.50 Glucose Level 161 Hematocrit 26.7 L Hemoglobin 9.0 L Indirect Bilirubin 0.8 Lymphocytes # 0.6 L Lymphocytes % 6.7 L Mean Corpuscular Hemoglobin 32.5 Mean Corpuscular Hemoglobin Concent 33.7 Mean Corpuscular Volume 96.5 Mean Platelet Volume 7.6 Monocytes # 0.4 Monocytes % 4.0 Neutrophils # 8.4 H Neutrophils % 88.2 H Nucleated Red Blood Cells # 0.0 Nucleated Red Blood Cells % 0.0 Platelet Count 77 L Potassium Level 2.8 *L Red Blood Count 2.76 L Red Cell Distribution Width 18.2 H Sodium Level 137 Total Bilirubin 0.8 Total Protein 5.1 L White Blood Count 9.5 # Medications Current Medications Fluticasone Propionate (Flonase 0.05% Nasal) 1 spray BID NASAL Last administered on 08/25/16 09:45; Admin Dose 1 SPRAY; Start 07/26/16 at 10:00 Epoetin [place] (Epogen (Esrd)) 10,000 units MoWeFr@17 SC Last administered on 08/24 17:48; Admin Dose 10,000 UNITS; Start 07/27/16 at 17:00; Status Future hold Hydralazine HCl (Apresoline) 10 mg Q6H PRN IV ELEVATED BLOOD PRESSURE Last administered on 08/15/16at 15:37; Admin Dose 10 MG; Start 07/29/16 at 13:00 Acetaminophen (Tylenol Tab) 650 mg Q6H PRN GTB PAIN1-3/FEVER ABOVE 100 Last administered on 08/12/16at 06:07; Admin Dose 650 MG; Start 08/02/16 at 15:00 Atorvastatin Calcium (Lipitor) 40 mg HS GTB Last administered on 08/24/16 21:04 ; Admin Dose 40 MG; Start 08/02/16 at 21:00 Carvedilol (Coreg) 6.25 mg BID GTB ; Start 08/02/16 at 09:00; Status Future hold Duloxetine HCl (Cymbalta) 90 mg DAILY GTB Last administered on 08/25/16 09:44; Admin Dose 90 MG; Start 08/02/16 at 09:00 Guaifenesin (Robitussin Liquid Cup) 100 mg Q4 PRN GTB COUGH; Start 08/02/16 at 09:00 Acetaminophen/ Hydrocodone Bitart ([place] (5/325)) 1 tab Q4 PRN GTB WSOB Last administered on 08/24/16 21:04; Admin Dose 1 TAB; Start 08/02/16 at 09:00 Lactobacillus Acidoph/Bulgaricus (Floranex) 1 tab DAILY GTB Last administered on 08/25/16 09:43; Admin Dose 1 TAB; Start 08/02/16 at 09:00 Lorazepam (Ativan) 1 mg Q6H PRN GTB ANXIETY Last administered on 08/18/16at 10: 45; Admin Dose 1 MG; Start 08/02/16 at 09:00 Multivit/Ca Carb/ B Cmplx/FA/Prenat (Cheryl-Darcie) 1 tab DAILY GTB Last administered on 08/25/16 09:43; Admin Dose 1 TAB; Start 08/02/16 at 09:00 Aspirin (Aspirin) 81 mg DAILY GTB Last administered on 08/25/16 09:43; Admin Dose 81 MG; Start 08/02/16 at 09:00 Lansoprazole (Prevacid) 30 mg DAILY@06 GTB Last administered on 08/25/16 06:28 ; Admin Dose 30 MG; Start 08/02/16 at 10:00 Sildenafil Citrate (Revatio) 20 mg BID PO Last administered on 08/11/16at 11:56 ; Admin Dose 20 MG; Start 08/08/16 at 21:00; Status Future hold Lorazepam (Ativan) 0.5 mg Q4 PRN IV ANXIETY Last administered on 08/24/16 04:04 ; Admin Dose 0.5 MG; Start 08/09/16 at 00:00 Methylprednisolone Sodium Succinate (Solu-Medrol) 20 mg DAILY IV Last administered on 08/25/16 09:44; Admin Dose 20 MG; Start 08/10/16 at 09:00 Miscellaneous Information 1 ea NOTE XX ; Start 08/11/16 at 12:00 Glucose (Glutose) 15 gm Q15M PRN PO DECREASED GLUCOSE; Start 08/11/16 at 12:00 Glucose (Glutose) 22.5 gm Q15M PRN PO DECREASED GLUCOSE; Start 08/11/16 at 12: 00 Dextrose (D50w Syringe) 25 ml Q15M PRN IV DECREASED GLUCOSE Last administered on 08/24/16 12:54; Admin Dose 25 ML; Start 08/11/16 at 12:00 Dextrose (D50w Syringe) 50 ml Q15M PRN IV DECREASED GLUCOSE; Start 08/11/16 at 12:00 Glucagon (Glucagen) 1 mg Q15M PRN IM DECREASED GLUCOSE; Start 08/11/16 at 12: 00 Glucose (Glutose) 15 gm Q15M PRN BUCCAL DECREASED GLUCOSE; Start 08/11/16 at 12:00 Insulin Aspart (Novolog Insulin Pen) NOVOLOG *MODERATE* ALGORI... Q4 SC Last administered on 08/25/16 13:39; Admin Dose 4 UNIT; Start 08/11/16 at 17:00 IV Flush (NS 10 ml) 10 ml PRN PRN IV IV PROTOCOL; Start 08/13/16 at 18:00 Collagenase (Santyl) 1 applic DAILY@22 TOP Last administered on 08/24/16 22:30 ; Admin Dose 1 APPLIC; Start 08/15/16 at 22:00 Insulin Glargine (Lantus) 25 unit QAM SC Last administered on 08/25/16 09:48; Admin Dose 25 UNIT; Start 08/18/16 at 09:00 Acyclovir (Zovirax) 200 mg BID GTB ; Start 08/25/16 at 21:00; Stop 08/30/16 at 20 :59 Assessment/Plan Additional Assessment/Plan IMP: 1. Hypoxemic resp failure, status post tracheostomy and PEG tube 2. Pulm edema, right lower lobe infiltrate, possible aspiration pneumonia. 3. Encephalopathy toxic metabolic 4. Congestive heart failure 5. Persistent leukocytosis likely polymicrobial sepsis 6. End-stage renal failure on hemodialysis 7. Dysphagia now with PEG tube started on tube feeding RECS 1. Vent support 2. CPT/suctioning/BD's 3. Aspiration precautions 4. DVT / GI prophylaxis. 5. Continue broad-spectrum antibiotics per ASHLEY CARBALLO MD Aug 25, 2016 16:16
[2016-08-25] MEDS: ACYCLOVIR 200 MG CAP GTB SCH (21:52)
[2016-08-25] MEDS: ATORVASTATIN 40 MG TAB GTB SCH (21:53)
[2016-08-25] MEDS: COLLAGENASE 30 GM TUBE TOP SCH (21:53)
[2016-08-26] VITALS (25 sets, daily range): BP systolic 93–148; BP diastolic 43–58; PULSE 80–104; RESP 15–20
[2016-08-26] MEDS: INSULIN ASPART [NOVOLOG] 3 ML PEN SC SCH ×6 (01:00→21:28)
[2016-08-26] MEDS: IPRATROPIUM (HFA) 12.9 GM INHALER INH SCH ×4 (03:07→19:51)
[2016-08-26] MEDS: ALBUTEROL HFA 8 GM INHALER INH SCH ×4 (03:07→19:51)
[2016-08-26] MEDS: LANSOPRAZOLE 30 MG CAP GTB SCH (05:34)
[2016-08-26] MEDS: SILDENAFIL 20 MG TAB PO SCH ×3 (05:35→21:25)
--- NOTE | 2016-08-26 08:49 | CONS ---
Date/Time of Note Date/Time of Note DATE: 08/26/16 TIME: 08:45 Assessment/Plan Assessment/Plan Additional Assessment/Plan Chronic kidney disease on T,th,Sat dialysis [place] respiratory failure-trached on vent Nutritionally supported with G tube Plan labs in am dialysis Saturday Consultation Date/Type/Reason Admit Date/Time Jul 26, 2016 at 01:55 Initial Consult Date 07/29/16 Type of Consultation: Renal Reason for Consultation CKD 5 dialysis dependent Referring Provider: GRACIE KATHLEEN 24 HR Interval Summary Free Text/Dictation Patient much more alert than yesterday. He follows commands to squeeze my finger. He looks in my direction today. Subjective hx not possible: pt non-verbal Constitutional: chills, diaphoresis, disoriented, febrile, improved, no complaints, other, poor po, requiring IVF, requiring O2 Exam/Review of Systems Vital Signs Vitals Vital Signs Date Time Temp Pulse Resp B/P Pulse Ox O2 Delivery O2 Flow Rate FiO2 08/26/16 08:21 98 08/26/16 07:40 98.1 20 93/43 100 08/26/16 07:34 30 08/24/16 21:00 Mechanical Ventilator Intake and Output 08/25/16 08/25/16 08/26/16 15:00 23:00 07:00 Intake Total 430 ml 530 ml Output Total 3000 ml 200 ml 100 ml Balance -3000 ml 230 ml 430 ml Exam Constitutional: alert Psych: no complaints Cardiovascular: other (occasional irregularity), regular rate and rhythm Gastrointestinal: soft Neurological: other (much more alert) Results Result Diagram: 08/25/16 1024 08/25/16 1024 Results 24 hrs Laboratory Tests Test 08/25/16 09:31 08/25/16 10:24 08/25/16 13:36 08/25/16 17:09 Bedside Glucose 172 210 219 Alanine Aminotransferase (ALT/SGPT) 21 Albumin 2.6 L Albumin/Globulin Ratio 1.04 Alkaline Phosphatase 156 H Anion Gap 12 Aspartate Amino Transf (AST/SGOT) 43 Basophils # 0.0 Basophils % 0.4 Blood Morphology Comment Blood Urea Nitrogen 27 H Calcium Level 7.6 L Carbon Dioxide Level 30 Chloride Level 98 Creatinine 1.69 H Direct Bilirubin 0.00 Eosinophils # 0.1 Eosinophils % 0.7 Globulin 2.50 Glucose Level 161 Hematocrit 26.7 L Hemoglobin 9.0 L Indirect Bilirubin 0.8 Lymphocytes # 0.6 L Lymphocytes % 6.7 L Mean Corpuscular Hemoglobin 32.5 Mean Corpuscular Hemoglobin Concent 33.7 Mean Corpuscular Volume 96.5 Mean Platelet Volume 7.6 Monocytes # 0.4 Monocytes % 4.0 Neutrophils # 8.4 H Neutrophils % 88.2 H Nucleated Red Blood Cells # 0.0 Nucleated Red Blood Cells % 0.0 Platelet Count 77 L Potassium Level 2.8 *L Red Blood Count 2.76 L Red Cell Distribution Width 18.2 H Sodium Level 137 Total Bilirubin 0.8 Total Protein 5.1 L White Blood Count 9.5 # Test 08/25/16 20:01 08/26/16 04:14 08/26/16 05:36 Bedside Glucose 202 115 129 Medications Medications Current Medications Fluticasone Propionate (Flonase 0.05% Nasal) 1 spray BID NASAL Last administered on 08/25/16 21:52; Admin Dose 1 SPRAY; Start 07/26/16 at 10:00 Epoetin [place] (Epogen (Esrd)) 10,000 units MoWeFr@17 SC Last administered on 08/24 17:48; Admin Dose 10,000 UNITS; Start 07/27/16 at 17:00; Status Future hold Hydralazine HCl (Apresoline) 10 mg Q6H PRN IV ELEVATED BLOOD PRESSURE Last administered on 08/15/16at 15:37; Admin Dose 10 MG; Start 07/29/16 at 13:00 Acetaminophen (Tylenol Tab) 650 mg Q6H PRN GTB PAIN1-3/FEVER ABOVE 100 Last administered on 08/12/16at 06:07; Admin Dose 650 MG; Start 08/02/16 at 15:00 Atorvastatin Calcium (Lipitor) 40 mg HS GTB Last administered on 08/25/16 21:53 ; Admin Dose 40 MG; Start 08/02/16 at 21:00 Carvedilol (Coreg) 6.25 mg BID GTB ; Start 08/02/16 at 09:00; Status Future hold Duloxetine HCl (Cymbalta) 90 mg DAILY GTB Last administered on 08/25/16 09:44; Admin Dose 90 MG; Start 08/02/16 at 09:00 Guaifenesin (Robitussin Liquid Cup) 100 mg Q4 PRN GTB COUGH; Start 08/02/16 at 09:00 Acetaminophen/ Hydrocodone Bitart ([place] (5/325)) 1 tab Q4 PRN GTB WSOB Last administered on 08/24/16 21:04; Admin Dose 1 TAB; Start 08/02/16 at 09:00 Lactobacillus Acidoph/Bulgaricus (Floranex) 1 tab DAILY GTB Last administered on 08/25/16 09:43; Admin Dose 1 TAB; Start 08/02/16 at 09:00 Lorazepam (Ativan) 1 mg Q6H PRN GTB ANXIETY Last administered on 08/18/16at 10: 45; Admin Dose 1 MG; Start 08/02/16 at 09:00 Multivit/Ca Carb/ B Cmplx/FA/Prenat (Cheryl-Darcie) 1 tab DAILY GTB Last administered on 08/25/16 09:43; Admin Dose 1 TAB; Start 08/02/16 at 09:00 Aspirin (Aspirin) 81 mg DAILY GTB Last administered on 08/25/16 09:43; Admin Dose 81 MG; Start 08/02/16 at 09:00 Lansoprazole (Prevacid) 30 mg DAILY@06 GTB Last administered on 08/26/16 05:34 ; Admin Dose 30 MG; Start 08/02/16 at 10:00 Sildenafil Citrate (Revatio) 20 mg BID PO Last administered on 08/26/16 05:35; Admin Dose 20 MG; Start 08/08/16 at 21:00; Status Future hold Lorazepam (Ativan) 0.5 mg Q4 PRN IV ANXIETY Last administered on 08/24/16 04:04 ; Admin Dose 0.5 MG; Start 08/09/16 at 00:00 Methylprednisolone Sodium Succinate (Solu-Medrol) 20 mg DAILY IV Last administered on 08/25/16 09:44; Admin Dose 20 MG; Start 08/10/16 at 09:00 Miscellaneous Information 1 ea NOTE XX ; Start 08/11/16 at 12:00 Glucose (Glutose) 15 gm Q15M PRN PO DECREASED GLUCOSE; Start 08/11/16 at 12:00 Glucose (Glutose) 22.5 gm Q15M PRN PO DECREASED GLUCOSE; Start 08/11/16 at 12: 00 Dextrose (D50w Syringe) 25 ml Q15M PRN IV DECREASED GLUCOSE Last administered on 08/24/16 12:54; Admin Dose 25 ML; Start 08/11/16 at 12:00 Dextrose (D50w Syringe) 50 ml Q15M PRN IV DECREASED GLUCOSE; Start 08/11/16 at 12:00 Glucagon (Glucagen) 1 mg Q15M PRN IM DECREASED GLUCOSE; Start 08/11/16 at 12: 00 Glucose (Glutose) 15 gm Q15M PRN BUCCAL DECREASED GLUCOSE; Start 08/11/16 at 12:00 Insulin Aspart (Novolog Insulin Pen) NOVOLOG *MODERATE* ALGORI... Q4 SC Last administered on 08/25/16 22:04; Admin Dose 4 UNIT; Start 08/11/16 at 17:00 IV Flush (NS 10 ml) 10 ml PRN PRN IV IV PROTOCOL; Start 08/13/16 at 18:00 Collagenase (Santyl) 1 applic DAILY@22 TOP Last administered on 08/25/16 21:53 ; Admin Dose 1 APPLIC; Start 08/15/16 at 22:00 Insulin Glargine (Lantus) 25 unit QAM SC Last administered on 08/25/16 09:48; Admin Dose 25 UNIT; Start 08/18/16 at 09:00 Acyclovir (Zovirax) 200 mg BID GTB Last administered on 08/25/16 21:52; Admin Dose 200 MG; Start 08/25/16 at 21:00; Stop 08/30/16 at 20:59 SHAWN BERRY MD Aug 26, 2016 08:48
[2016-08-26] MEDS: ASPIRIN 81 MG TAB GTB SCH (08:53)
[2016-08-26] MEDS: MULTIVIT/CA CARB/B CMPLX/FA TAB GTB SCH (08:53)
[2016-08-26] MEDS: ACYCLOVIR 200 MG CAP GTB SCH ×2 (08:53→21:25)
[2016-08-26] MEDS: DULOXETINE 30 MG CAP DR GTB SCH (08:53)
[2016-08-26] MEDS: METHYLPREDNISOLONE 40 MG INJ IV SCH (08:54)
[2016-08-26] MEDS: LACTOBACILLUS CHEW TAB GTB SCH (08:54)
[2016-08-26] MEDS: FLUTICASONE 0.05% 16 GM NAS SPRAY NASAL SCH ×2 (08:56→21:25)
[2016-08-26] MEDS: INSULIN GLARGINE [LANtus] 3 ML PEN SC SCH (09:08)
--- NOTE | 2016-08-26 10:18 | CONS ---
Date/Time of Note Date/Time of Note DATE: 08/26/16 TIME: 10:17 Assessment/Plan Assessment/Plan Chief Complaint/Hosp Course - VDRF s/p trach - S/p aspiration PNA: respiratory Cx on 08/10 grew MSSA and C. 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 - PAD Hx Left BKA - underlying Parkinson's disease - stage 2 coccyx decub - PCN allergic - dysphagia d/p G tube - thrombocytopenia - borderline positive [id number] level. 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 Hammer Problems: Consultation Date/Type/Reason Admit Date/Time Jul 26, 2016 at 01:55 Initial Consult Date 07/29/16 Type of Consultation: Infectious Disease Referring Provider: GRACIE KATHLEEN 24 HR Interval Summary Free Text/Dictation Pt non-communicative. Pt afebrile, clinically unchanged, dialyzed yesterday and Dr. Devine aware of low potassium per [facility]IG[facility]. Exam/Review of Systems Vital Signs Vitals Vital Signs Date Time Temp Pulse Resp B/P Pulse Ox O2 Delivery O2 Flow Rate FiO2 08/26/16 09:48 99 20 100 30 08/26/16 07:40 98.1 93/43 08/24/16 21:00 Mechanical Ventilator Intake and Output 08/25/16 08/25/16 08/26/16 15:00 23:00 07:00 Intake Total 430 ml 530 ml Output Total 3000 ml 200 ml 100 ml Balance -3000 ml 230 ml 430 ml Exam Constitutional: frail, other (chronically debilitated), Head: atraumatic, normocephalic Neck: other (trach midline without leak) Respiratory: Diminished breath sounds, otherwise clear. No wheezing Cardiovascular: regular rate and rhythm, normal S1 and S2 Gastrointestinal: soft, bowel sounds present, other (GT with TF intact; rectal tube intact with loose stool). Extremities: edema (2-3+ right pedal), other (LLE BKA noted; LUE AVF with + bruit/thrill; left middle finger partial amputation noted) Neurological: Lethargic; not following command. Eyes open but no tracking. Skin: ecchymosis (scattered BUE), nl turgor, other (RUE PICC c/d/i). Wound ( coccyx stage 2 with dressing c/d/i and perianal area with dermatitis d/t incontinence - See Nurses note for details), Other (Few blisters/vesicles on left cheek). Results Result Diagram: 08/25/16 1024 08/25/16 1024 Results 24 hrs Laboratory Tests Test 08/25/16 10:24 08/25/16 13:36 08/25/16 17:09 08/25/16 20:01 Alanine Aminotransferase (ALT/SGPT) 21 Albumin 2.6 L Albumin/Globulin Ratio 1.04 Alkaline Phosphatase 156 H Anion Gap 12 Aspartate Amino Transf (AST/SGOT) 43 Basophils # 0.0 Basophils % 0.4 Blood Morphology Comment Blood Urea Nitrogen 27 H Calcium Level 7.6 L Carbon Dioxide Level 30 Chloride Level 98 Creatinine 1.69 H Direct Bilirubin 0.00 Eosinophils # 0.1 Eosinophils % 0.7 Globulin 2.50 Glucose Level 161 Hematocrit 26.7 L Hemoglobin 9.0 L Indirect Bilirubin 0.8 Lymphocytes # 0.6 L Lymphocytes % 6.7 L Mean Corpuscular Hemoglobin 32.5 Mean Corpuscular Hemoglobin Concent 33.7 Mean Corpuscular Volume 96.5 Mean Platelet Volume 7.6 Monocytes # 0.4 Monocytes % 4.0 Neutrophils # 8.4 H Neutrophils % 88.2 H Nucleated Red Blood Cells # 0.0 Nucleated Red Blood Cells % 0.0 Platelet Count 77 L Potassium Level 2.8 *L Red Blood Count 2.76 L Red Cell Distribution Width 18.2 H Sodium Level 137 Total Bilirubin 0.8 Total Protein 5.1 L White Blood Count 9.5 # Bedside Glucose 210 219 202 Test 08/26/16 04:14 08/26/16 05:36 08/26/16 09:05 Bedside Glucose 115 129 133 Medications Medications Current Medications Fluticasone Propionate (Flonase 0.05% Nasal) 1 spray BID NASAL Last administered on 08/26/16 08:56; Admin Dose 1 SPRAY; Start 07/26/16 at 10:00 Epoetin [place] (Epogen (Esrd)) 10,000 units MoWeFr@17 SC Last administered on 08/24 17:48; Admin Dose 10,000 UNITS; Start 07/27/16 at 17:00; Status Future hold Hydralazine HCl (Apresoline) 10 mg Q6H PRN IV ELEVATED BLOOD PRESSURE Last administered on 08/15/16at 15:37; Admin Dose 10 MG; Start 07/29/16 at 13:00 Acetaminophen (Tylenol Tab) 650 mg Q6H PRN GTB PAIN1-3/FEVER ABOVE 100 Last administered on 08/12/16at 06:07; Admin Dose 650 MG; Start 08/02/16 at 15:00 Atorvastatin Calcium (Lipitor) 40 mg HS GTB Last administered on 08/25/16 21:53 ; Admin Dose 40 MG; Start 08/02/16 at 21:00 Carvedilol (Coreg) 6.25 mg BID GTB ; Start 08/02/16 at 09:00; Status Future hold Duloxetine HCl (Cymbalta) 90 mg DAILY GTB Last administered on 08/26/16 08:53; Admin Dose 90 MG; Start 08/02/16 at 09:00 Guaifenesin (Robitussin Liquid Cup) 100 mg Q4 PRN GTB COUGH; Start 08/02/16 at 09:00 Acetaminophen/ Hydrocodone Bitart ([place] (5/325)) 1 tab Q4 PRN GTB WSOB Last administered on 08/24/16 21:04; Admin Dose 1 TAB; Start 08/02/16 at 09:00 Lactobacillus Acidoph/Bulgaricus (Floranex) 1 tab DAILY GTB Last administered on 08/26/16 08:54; Admin Dose 1 TAB; Start 08/02/16 at 09:00 Lorazepam (Ativan) 1 mg Q6H PRN GTB ANXIETY Last administered on 08/18/16at 10: 45; Admin Dose 1 MG; Start 08/02/16 at 09:00 Multivit/Ca Carb/ B Cmplx/FA/Prenat (Cheryl-Darcie) 1 tab DAILY GTB Last administered on 08/26/16 08:53; Admin Dose 1 TAB; Start 08/02/16 at 09:00 Aspirin (Aspirin) 81 mg DAILY GTB Last administered on 08/26/16 08:53; Admin Dose 81 MG; Start 08/02/16 at 09:00 Lansoprazole (Prevacid) 30 mg DAILY@06 GTB Last administered on 08/26/16 05:34 ; Admin Dose 30 MG; Start 08/02/16 at 10:00 Sildenafil Citrate (Revatio) 20 mg BID PO Last administered on 08/26/16 05:35; Admin Dose 20 MG; Start 08/08/16 at 21:00; Status Future hold Lorazepam (Ativan) 0.5 mg Q4 PRN IV ANXIETY Last administered on 08/24/16 04:04 ; Admin Dose 0.5 MG; Start 08/09/16 at 00:00 Methylprednisolone Sodium Succinate (Solu-Medrol) 20 mg DAILY IV Last administered on 08/26/16 08:54; Admin Dose 20 MG; Start 08/10/16 at 09:00 Miscellaneous Information 1 ea NOTE XX ; Start 08/11/16 at 12:00 Glucose (Glutose) 15 gm Q15M PRN PO DECREASED GLUCOSE; Start 08/11/16 at 12:00 Glucose (Glutose) 22.5 gm Q15M PRN PO DECREASED GLUCOSE; Start 08/11/16 at 12: 00 Dextrose (D50w Syringe) 25 ml Q15M PRN IV DECREASED GLUCOSE Last administered on 08/24/16 12:54; Admin Dose 25 ML; Start 08/11/16 at 12:00 Dextrose (D50w Syringe) 50 ml Q15M PRN IV DECREASED GLUCOSE; Start 08/11/16 at 12:00 Glucagon (Glucagen) 1 mg Q15M PRN IM DECREASED GLUCOSE; Start 08/11/16 at 12: 00 Glucose (Glutose) 15 gm Q15M PRN BUCCAL DECREASED GLUCOSE; Start 08/11/16 at 12:00 Insulin Aspart (Novolog Insulin Pen) NOVOLOG *MODERATE* ALGORI... Q4 SC Last administered on 08/25/16 22:04; Admin Dose 4 UNIT; Start 08/11/16 at 17:00 IV Flush (NS 10 ml) 10 ml PRN PRN IV IV PROTOCOL; Start 08/13/16 at 18:00 Collagenase (Santyl) 1 applic DAILY@22 TOP Last administered on 08/25/16 21:53 ; Admin Dose 1 APPLIC; Start 08/15/16 at 22:00 Insulin Glargine (Lantus) 25 unit QAM SC Last administered on 08/26/16 09:08; Admin Dose 25 UNIT; Start 08/18/16 at 09:00 Acyclovir (Zovirax) 200 mg BID GTB Last administered on 08/26/16 08:53; Admin Dose 200 MG; Start 08/25/16 at 21:00; Stop 08/30/16 at 20:59 Procedures Procedures CXR 08/25/2016: No evidence for active cardiopulmonary disease. JERICHO CRABTREE NP Aug 26, 2016 10:18 Lansoprazole (Prevacid) 30 mg DAILY@06 GTB Last administered on 08/26/16 05:34 ; Admin Dose 30 MG; Start 08/02/16 at 10:00 Sildenafil Citrate (Revatio) 20 mg BID PO Last administered on 08/26/16 05:35; Admin Dose 20 MG; Start 08/08/16 at 21:00; Status Future hold Lorazepam (Ativan) 0.5 mg Q4 PRN IV ANXIETY Last administered on 08/24/16 04:04 ; Admin Dose 0.5 MG; Start 08/09/16 at 00:00 Methylprednisolone Sodium Succinate (Solu-Medrol) 20 mg DAILY IV Last administered on 08/26/16 08:54; Admin Dose 20 MG; Start 08/10/16 at 09:00 Miscellaneous Information 1 ea NOTE XX ; Start 08/11/16 at 12:00 Glucose (Glutose) 15 gm Q15M PRN PO DECREASED GLUCOSE; Start 08/11/16 at 12:00 Glucose (Glutose) 22.5 gm Q15M PRN PO DECREASED GLUCOSE; Start 08/11/16 at 12: 00 Dextrose (D50w Syringe) 25 ml Q15M PRN IV DECREASED GLUCOSE Last administered on 08/24/16 12:54; Admin Dose 25 ML; Start 08/11/16 at 12:00 Dextrose (D50w Syringe) 50 ml Q15M PRN IV DECREASED GLUCOSE; Start 08/11/16 at 12:00 Glucagon (Glucagen) 1 mg Q15M PRN IM DECREASED GLUCOSE; Start 08/11/16 at 12: 00 Glucose (Glutose) 15 gm Q15M PRN BUCCAL DECREASED GLUCOSE; Start 08/11/16 at 12:00 Insulin Aspart (Novolog Insulin Pen) NOVOLOG *MODERATE* ALGORI... Q4 SC Last administered on 08/25/16 22:04; Admin Dose 4 UNIT; Start 08/11/16 at 17:00 IV Flush (NS 10 ml) 10 ml PRN PRN IV IV PROTOCOL; Start 08/13/16 at 18:00 Collagenase (Santyl) 1 applic DAILY@22 TOP Last administered on 08/25/16 21:53 ; Admin Dose 1 APPLIC; Start 08/15/16 at 22:00 Insulin Glargine (Lantus) 25 unit QAM SC Last administered on 08/26/16 09:08; Admin Dose 25 UNIT; Start 08/18/16 at 09:00 Acyclovir (Zovirax) 200 mg BID GTB Last administered on 08/26/16 08:53; Admin Dose 200 MG; Start 08/25/16 at 21:00; Stop 08/30/16 at 20:59 JERICHO CRABTREE NP Aug 26, 2016 10:18
--- NOTE | 2016-08-26 11:41 | PN ---
Date/Time of Note Date/Time of Note DATE: 08/26/16 TIME: 11:40 Assessment/Plan VTE Prophylaxis VTE Prophylaxis Intervention: other Lines/Catheters [facility] PICC Line Central line still needed: Yes Urinary Cath still in place: No Assessment/Plan Chief Complaint/Hosp Course 1. Acute respiratory failure - had to be reintubated, probably will need subacute, trach 2. Possible pneumonia- right lower lobe infiltrate- possible aspiration pneumonia per Pulmonary. Sputum grew 08/02 rare jerry albicans - per Dr. Reardon in infectious disease consultation. 3. Early sepsis d/t C diff - recurrent leukocytosis improving and low grade fever resolving. 4. End-stage renal disease hemodialysis dependent. - on HD - per Dr. Bassett in nephrology consultation 5. Diastolic congestive heart failure. Continue to remove fluid was hemodialysis. 6. Partial right internal jugular DVT. Continue Coumadin. Continue daily PT PTT. 7. C diff stool - per ID - on po Vanco - contact isolation 8. RUE cellulitis with axillary/cephalic venous thrombosis - PER id 9. Hyperglycemia- GLYCEMIC Control- stable 10. Toxic metabolic encephalopathy 11. Osteoporosis. 12. Pulmonary hypertension. Continue sildenafil. 13. Coronary artery disease with history of PCI. 14. Depression. Continue Cymbalta 15. History of left hip fracture, treated conservatively. Problems: Subjective 24 Hr Interval Summary Free Text/Dictation Patient is comfortable, no complaints Exam/Review of Systems Vital Signs Vitals Vital Signs Date Time Temp Pulse Resp B/P Pulse Ox O2 Delivery O2 Flow Rate FiO2 08/26/16 11:35 98.6 96 20 108/53 100 08/26/16 11:34 30 08/24/16 21:00 Mechanical Ventilator Intake and Output 08/25/16 08/25/16 08/26/16 14:59 22:59 06:59 Intake Total 430 ml 530 ml Output Total 3000 ml 200 ml 100 ml Balance -3000 ml 230 ml 430 ml Exam Constitutional: well developed Head: atraumatic, normocephalic Neck: supple Respiratory: clear to auscultation Cardiovascular: regular rate and rhythm Gastrointestinal: non-tender, soft Extremities: normal pulses Results Result Diagram: 08/25/16 1024 08/25/16 1024 Results 24 hrs Laboratory Tests Test 08/25/16 13:36 08/25/16 17:09 08/25/16 20:01 08/26/16 04:14 Bedside Glucose 210 219 202 115 Test 08/26/16 05:36 08/26/16 09:05 Bedside Glucose 129 133 Medications Medications Current Medications Fluticasone Propionate (Flonase 0.05% Nasal) 1 spray BID NASAL Last administered on 08/26/16 08:56; Admin Dose 1 SPRAY; Start 07/26/16 at 10:00 Epoetin [place] (Epogen (Esrd)) 10,000 units MoWeFr@17 SC Last administered on 08/24 17:48; Admin Dose 10,000 UNITS; Start 07/27/16 at 17:00; Status Future hold Hydralazine HCl (Apresoline) 10 mg Q6H PRN IV ELEVATED BLOOD PRESSURE Last administered on 08/15/16at 15:37; Admin Dose 10 MG; Start 07/29/16 at 13:00 Acetaminophen (Tylenol Tab) 650 mg Q6H PRN GTB PAIN1-3/FEVER ABOVE 100 Last administered on 08/12/16at 06:07; Admin Dose 650 MG; Start 08/02/16 at 15:00 Atorvastatin Calcium (Lipitor) 40 mg HS GTB Last administered on 08/25/16 21:53 ; Admin Dose 40 MG; Start 08/02/16 at 21:00 Carvedilol (Coreg) 6.25 mg BID GTB ; Start 08/02/16 at 09:00; Status Future hold Duloxetine HCl (Cymbalta) 90 mg DAILY GTB Last administered on 08/26/16 08:53; Admin Dose 90 MG; Start 08/02/16 at 09:00 Guaifenesin (Robitussin Liquid Cup) 100 mg Q4 PRN GTB COUGH; Start 08/02/16 at 09:00 Acetaminophen/ Hydrocodone Bitart ([place] (5/325)) 1 tab Q4 PRN GTB WSOB Last administered on 08/24/16 21:04; Admin Dose 1 TAB; Start 08/02/16 at 09:00 Lactobacillus Acidoph/Bulgaricus (Floranex) 1 tab DAILY GTB Last administered on 08/26/16 08:54; Admin Dose 1 TAB; Start 08/02/16 at 09:00 Lorazepam (Ativan) 1 mg Q6H PRN GTB ANXIETY Last administered on 08/18/16at 10: 45; Admin Dose 1 MG; Start 08/02/16 at 09:00 Multivit/Ca Carb/ B Cmplx/FA/Prenat (Cheryl-Darcie) 1 tab DAILY GTB Last administered on 08/26/16 08:53; Admin Dose 1 TAB; Start 08/02/16 at 09:00 Aspirin (Aspirin) 81 mg DAILY GTB Last administered on 08/26/16 08:53; Admin Dose 81 MG; Start 08/02/16 at 09:00 Lansoprazole (Prevacid) 30 mg DAILY@06 GTB Last administered on 08/26/16 05:34 ; Admin Dose 30 MG; Start 08/02/16 at 10:00 Sildenafil Citrate (Revatio) 20 mg BID PO Last administered on 08/26/16 05:35; Admin Dose 20 MG; Start 08/08/16 at 21:00; Status Future hold Lorazepam (Ativan) 0.5 mg Q4 PRN IV ANXIETY Last administered on 08/24/16 04:04 ; Admin Dose 0.5 MG; Start 08/09/16 at 00:00 Methylprednisolone Sodium Succinate (Solu-Medrol) 20 mg DAILY IV Last administered on 08/26/16 08:54; Admin Dose 20 MG; Start 08/10/16 at 09:00 Miscellaneous Information 1 ea NOTE XX ; Start 08/11/16 at 12:00 Glucose (Glutose) 15 gm Q15M PRN PO DECREASED GLUCOSE; Start 08/11/16 at 12:00 Glucose (Glutose) 22.5 gm Q15M PRN PO DECREASED GLUCOSE; Start 08/11/16 at 12: 00 Dextrose (D50w Syringe) 25 ml Q15M PRN IV DECREASED GLUCOSE Last administered on 08/24/16 12:54; Admin Dose 25 ML; Start 08/11/16 at 12:00 Dextrose (D50w Syringe) 50 ml Q15M PRN IV DECREASED GLUCOSE; Start 08/11/16 at 12:00 Glucagon (Glucagen) 1 mg Q15M PRN IM DECREASED GLUCOSE; Start 08/11/16 at 12: 00 Glucose (Glutose) 15 gm Q15M PRN BUCCAL DECREASED GLUCOSE; Start 08/11/16 at 12:00 Insulin Aspart (Novolog Insulin Pen) NOVOLOG *MODERATE* ALGORI... Q4 SC Last administered on 08/25/16 22:04; Admin Dose 4 UNIT; Start 08/11/16 at 17:00 IV Flush (NS 10 ml) 10 ml PRN PRN IV IV PROTOCOL; Start 08/13/16 at 18:00 Collagenase (Santyl) 1 applic DAILY@22 TOP Last administered on 08/25/16 21:53 ; Admin Dose 1 APPLIC; Start 08/15/16 at 22:00 Insulin Glargine (Lantus) 25 unit QAM SC Last administered on 08/26/16 09:08; Admin Dose 25 UNIT; Start 08/18/16 at 09:00 Acyclovir (Zovirax) 200 mg BID GTB Last administered on 08/26/16 08:53; Admin Dose 200 MG; Start 08/25/16 at 21:00; Stop 08/30/16 at 20:59 LESLIE PEDROZA Aug 26, 2016 11:40
--- NOTE | 2016-08-26 14:50 | PN ---
Date/Time of Note Date/Time of Note DATE: 08/26/16 TIME: 14:50 Assessment/Plan Lines/Catheters IV Catheter Type (from Nrs): PICC Line Vicente in Place (from Nrs): No Assessment/Plan Chief Complaint/Hosp Course IMPRESSION: 1. Respiratory failure. 2. Coagulopathy. 3. Anemia. RECOMMENDATIONS: SP tracheostomy Will continue supp care Discussed with the referring physicians. Problems: Subjective 24 Hr Interval Summary Constitutional: improved Pain Control: mild Exam/Review of Systems Vital Signs Vitals Vital Signs Date Time Temp Pulse Resp B/P Pulse Ox O2 Delivery O2 Flow Rate FiO2 08/26/16 13:57 94 20 96 30 08/26/16 11:35 98.6 108/53 08/24/16 21:00 Mechanical Ventilator Intake and Output 08/25/16 08/25/16 08/26/16 14:59 22:59 06:59 Intake Total 430 ml 530 ml Output Total 3000 ml 200 ml 100 ml Balance -3000 ml 230 ml 430 ml Exam Neck: non-tender, supple Respiratory: clear to auscultation, normal air movement Cardiovascular: nl pulses, regular rate and rhythm Gastrointestinal: nl liver, spleen, non-tender, soft Results Result Diagram: 08/25/16 1024 08/25/16 1024 SAUL HUMPHREY MD Aug 26, 2016 14:50
--- NOTE | 2016-08-26 17:49 | CONS ---
Date/Time of Note Date/Time of Note DATE: 08/26/16 TIME: 17:48 Consult Date/Type/Reason Admit Date/Time Jul 26, 2016 at 01:55 Type of Consultation: Pulm Ordering Provider: GRACIE KATHLEEN Subjective On MV. No events Objective Vital Signs Date Time Temp Pulse Resp B/P Pulse Ox O2 Delivery O2 Flow Rate FiO2 08/26/16 16:14 93 08/26/16 16:00 30 08/26/16 15:40 20 97 08/26/16 15:02 98.5 111/56 08/24/16 21:00 Mechanical Ventilator Intake and Output 08/25/16 08/25/16 08/26/16 15:00 23:00 07:00 Intake Total 430 ml 530 ml Output Total 3000 ml 200 ml 100 ml Balance -3000 ml 230 ml 430 ml NECK: Supple. No JVD or lymphadenopathy. trach in place CARDIAC EXAM: S1, S2. No added sounds or murmurs. CHEST: Diminished air entry bilaterally ABDOMEN: Soft, nontender. No guarding or rebound. EXTREMITIES: No cyanosis, clubbing or edema. Results/Medications Result Diagram: 08/25/16 1024 08/25/16 1024 Results 24 hrs Laboratory Tests Test 08/25/16 20:01 08/26/16 04:14 08/26/16 05:36 08/26/16 09:05 Bedside Glucose 202 115 129 133 Test 08/26/16 13:50 08/26/16 17:02 Bedside Glucose 174 193 Medications Current Medications Fluticasone Propionate (Flonase 0.05% Nasal) 1 spray BID NASAL Last administered on 08/26/16 08:56; Admin Dose 1 SPRAY; Start 07/26/16 at 10:00 Epoetin [place] (Epogen (Esrd)) 10,000 units MoWeFr@17 SC Last administered on 08/24 17:48; Admin Dose 10,000 UNITS; Start 07/27/16 at 17:00; Status Future hold Hydralazine HCl (Apresoline) 10 mg Q6H PRN IV ELEVATED BLOOD PRESSURE Last administered on 08/15/16 15:37; Admin Dose 10 MG; Start 07/29/16 at 13:00 Acetaminophen (Tylenol Tab) 650 mg Q6H PRN GTB PAIN1-3/FEVER ABOVE 100 Last administered on 08/12/16at 06:07; Admin Dose 650 MG; Start 08/02/16 at 15:00 Atorvastatin Calcium (Lipitor) 40 mg HS GTB Last administered on 08/25/16 21:53 ; Admin Dose 40 MG; Start 08/02/16 at 21:00 Carvedilol (Coreg) 6.25 mg BID GTB ; Start 08/02/16 at 09:00; Status Future hold Duloxetine HCl (Cymbalta) 90 mg DAILY GTB Last administered on 08/26/16 08:53; Admin Dose 90 MG; Start 08/02/16 at 09:00 Guaifenesin (Robitussin Liquid Cup) 100 mg Q4 PRN GTB COUGH; Start 08/02/16 at 09:00 Acetaminophen/ Hydrocodone Bitart ([place] (5/325)) 1 tab Q4 PRN GTB WSOB Last administered on 08/24/16 21:04; Admin Dose 1 TAB; Start 08/02/16 at 09:00 Lactobacillus Acidoph/Bulgaricus (Floranex) 1 tab DAILY GTB Last administered on 08/26/16 08:54; Admin Dose 1 TAB; Start 08/02/16 at 09:00 Lorazepam (Ativan) 1 mg Q6H PRN GTB ANXIETY Last administered on 08/18/16at 10: 45; Admin Dose 1 MG; Start 08/02/16 at 09:00 Multivit/Ca Carb/ B Cmplx/FA/Prenat (Cheryl-Darcie) 1 tab DAILY GTB Last administered on 08/26/16 08:53; Admin Dose 1 TAB; Start 08/02/16 at 09:00 Aspirin (Aspirin) 81 mg DAILY GTB Last administered on 08/26/16 08:53; Admin Dose 81 MG; Start 08/02/16 at 09:00 Lansoprazole (Prevacid) 30 mg DAILY@06 GTB Last administered on 08/26/16 05:34 ; Admin Dose 30 MG; Start 08/02/16 at 10:00 Sildenafil Citrate (Revatio) 20 mg BID PO Last administered on 08/26/16 05:35; Admin Dose 20 MG; Start 08/08/16 at 21:00; Status Future hold Lorazepam (Ativan) 0.5 mg Q4 PRN IV ANXIETY Last administered on 08/24/16 04:04 ; Admin Dose 0.5 MG; Start 08/09/16 at 00:00 Methylprednisolone Sodium Succinate (Solu-Medrol) 20 mg DAILY IV Last administered on 08/26/16 08:54; Admin Dose 20 MG; Start 08/10/16 at 09:00 Miscellaneous Information 1 ea NOTE XX ; Start 08/11/16 at 12:00 Glucose (Glutose) 15 gm Q15M PRN PO DECREASED GLUCOSE; Start 08/11/16 at 12:00 Glucose (Glutose) 22.5 gm Q15M PRN PO DECREASED GLUCOSE; Start 08/11/16 at 12: 00 Dextrose (D50w Syringe) 25 ml Q15M PRN IV DECREASED GLUCOSE Last administered on 08/24/16 12:54; Admin Dose 25 ML; Start 08/11/16 at 12:00 Dextrose (D50w Syringe) 50 ml Q15M PRN IV DECREASED GLUCOSE; Start 08/11/16 at 12:00 Glucagon (Glucagen) 1 mg Q15M PRN IM DECREASED GLUCOSE; Start 08/11/16 at 12: 00 Glucose (Glutose) 15 gm Q15M PRN BUCCAL DECREASED GLUCOSE; Start 08/11/16 at 12:00 Insulin Aspart (Novolog Insulin Pen) NOVOLOG *MODERATE* ALGORI... Q4 SC Last administered on 08/26/16 17:05; Admin Dose 4 UNIT; Start 08/11/16 at 17:00 IV Flush (NS 10 ml) 10 ml PRN PRN IV IV PROTOCOL; Start 08/13/16 at 18:00 Collagenase (Santyl) 1 applic DAILY@22 TOP Last administered on 08/25/16 21:53 ; Admin Dose 1 APPLIC; Start 08/15/16 at 22:00 Insulin Glargine (Lantus) 25 unit QAM SC Last administered on 08/26/16 09:08; Admin Dose 25 UNIT; Start 08/18/16 at 09:00 Acyclovir (Zovirax) 200 mg BID GTB Last administered on 08/26/16 08:53; Admin Dose 200 MG; Start 08/25/16 at 21:00; Stop 08/30/16 at 20:59 Assessment/Plan Additional Assessment/Plan IMP: 1. Hypoxemic resp failure, status post tracheostomy and PEG tube 2. Pulm edema, right lower lobe infiltrate, possible aspiration pneumonia. 3. Encephalopathy toxic metabolic 4. Congestive heart failure 5. Persistent leukocytosis likely polymicrobial sepsis 6. End-stage renal failure on hemodialysis 7. Dysphagia now with PEG tube started on tube feeding RECS 1. Vent support 2. CPT/suctioning/BD's 3. Aspiration precautions 4. DVT / GI prophylaxis. 5. Continue broad-spectrum antibiotics per ID 6. Replete K+ and check Mg ASHLEY MOORE MD Aug 26, 2016 17:49
[2016-08-26] MEDS: ATORVASTATIN 40 MG TAB GTB SCH (21:25)
[2016-08-26] MEDS: COLLAGENASE 30 GM TUBE TOP SCH (21:30)
[2016-08-27] VITALS (26 sets, daily range): BP systolic 96–158; BP diastolic 46–77; PULSE 72–152; RESP 17–25
[2016-08-27] MEDS: INSULIN ASPART [NOVOLOG] 3 ML PEN SC SCH ×6 (01:00→21:03)
[2016-08-27] MEDS: IPRATROPIUM (HFA) 12.9 GM INHALER INH SCH ×4 (02:19→20:38)
[2016-08-27] MEDS: ALBUTEROL HFA 8 GM INHALER INH SCH ×4 (02:19→20:38)
[2016-08-27] MEDS: LANSOPRAZOLE 30 MG CAP GTB SCH (05:38)
[2016-08-27 07:06] LABS: BASOPHILS % 0.3 % (0.0-2.0); EOSINOPHILS # 0.1 10^3/ul (0.0-0.5); EOSINOPHILS % 0.9 % (0.0-7.0); HEMATOCRIT 26.3 % (42.0-52.0); LYMPHOCYTES # 0.9 10^3/ul (0.8-2.9); LYMPHOCYTES % 12.4 % (15.0-51.0); MEAN CORPUSCULAR HEMOGLOBIN 33.2 pg (29.0-33.0); MEAN CORPUSCULAR HGB CONC 34.1 g/dl (32.0-37.0); MEAN CORPUSCULAR VOLUME 97.6 fl (82.0-101.0); MEAN PLATELET VOLUME 7.7 fl (7.4-10.4); MONOCYTE # 0.4 10^3/ul (0.3-0.9); MONOCYTES % 4.8 % (0.0-11.0); NEUTROPHIL # 6.2 10^3/ul (1.6-7.5); NEUTROPHILS % 81.6 % (39.0-77.0); PLATELET COUNT 75 10^3/UL (140-440); RED CELL DISTRIBUTION WIDTH 18.6 % (11.5-14.5); UNCORRECTED WBC 7.6 10^3/ul (4.8-10.8); WHITE BLOOD COUNT 7.6 10^3/ul (4.8-10.8)
[2016-08-27 07:09] LABS: CONDITION 1; LH ANALYZER COMMENTS 1
[2016-08-27 07:21] LABS: CREATININE 2.74 mg/dl (0.61-1.24)
[2016-08-27 07:22] LABS: CALCIUM 7.4 mg/dl (8.4-10.2)
[2016-08-27 07:30] LABS: POTASSIUM 2.9 mmol/L (3.5-5.1)
[2016-08-27] MEDS: METHYLPREDNISOLONE 40 MG INJ IV SCH (08:12)
[2016-08-27] MEDS: SILDENAFIL 20 MG TAB PO SCH ×2 (08:13→21:08)
[2016-08-27] MEDS: MULTIVIT/CA CARB/B CMPLX/FA TAB GTB SCH (08:13)
[2016-08-27] MEDS: DULOXETINE 30 MG CAP DR GTB SCH (08:13)
[2016-08-27] MEDS: ASPIRIN 81 MG TAB GTB SCH (08:13)
[2016-08-27] MEDS: LACTOBACILLUS CHEW TAB GTB SCH (08:13)
[2016-08-27] MEDS: ACYCLOVIR 200 MG CAP GTB SCH ×2 (08:14→20:59)
[2016-08-27] MEDS ORDERED: POTASSIUM CHLORIDE 20 MEQ POWDER FOR ORAL SOLN PEG ONE (08:30)
[2016-08-27] MEDS: INSULIN GLARGINE [LANtus] 3 ML PEN SC SCH (09:00)
[2016-08-27] MEDS: FLUTICASONE 0.05% 16 GM NAS SPRAY NASAL SCH ×2 (09:40→20:59)
--- NOTE | 2016-08-27 10:22 | CONS ---
DATE OF ADMISSION: 07/26/2016 DATE OF CONSULTATION: TYPE OF CONSULTATION: Nephrology. The patient has now moved up to the telemetry floor out of the ICU. He remains hemodynamically stab le on the vent, with a PEG in place. PHYSICAL EXAMINATION: VITAL SIGNS: He is afebrile, blood pressure is 158/70, heart rate is 78 and regular, respirations a re 12 and unlabored, O2 saturation is 98% on an FIO2 of 30%. SKIN: No new rashes. LUNGS: Clear. HEART: S1, S2. ABDOMEN: Soft. EXTREMITIES: Well-functioning left upper extremity AV fistula. LABORATORY DATA: White count 7.6, hemoglobin 9, hematocrit 26.3, platelet count is 75,000. Sodium 135, potassium 2.9, chloride 95, bicarbonate 27, BUN 55, creatinine 2.74, glucose 112, calcium is 7. 4. Recent Clostridium difficile is negative. Blood cultures weeks ago are also negative. PROBLEM LIST: 1. End-stage renal disease for planned hemodialysis tomorrow on his usual Saturday, , ay schedule. 2. Hypokalemia post-dialysis, to be repleted. 3. Thrombocytopenia, mild and stable. 4. Respiratory failure, currently vent dependent. 5. Congestive heart failure, resolved with dialysis. 6. Diabetes mellitus, currently well controlled. RECOMMENDATIONS: 1. Potassium replacement. 2. Dialysis in the morning. Dictated By: MOSES GUAJARDO MD, MM/OLESYA Conf#: [id number] DID#: [id number]
--- NOTE | 2016-08-27 10:34 | CONS ---
Date/Time of Note Date/Time of Note DATE: 08/27/16 TIME: 10:32 Assessment/Plan Assessment/Plan Chief Complaint/Hosp Course assessment/impression: - VDRF s/p trach - h/o aspiration PNA: respiratory Cx on 08/10 grew MSSA and C. Albicans - h/o septic shock - h/o C diff colitis, last C diff test on 08/24/2016 negative - h/o intermittent fever - h/o RUE cellulitis complicated by axillary/cephalic venous thrombosis - toxic metabolic encephalopathy - ESRD on HD - Diastolic CHF, CAD with Hx PCI, paroxysmal atrial tachycardia - Old partial DVT of the right internal jugular vein. - PAD s/p BKA - underlying Parkinson's disease - Stage 2 coccyx decub - PCN allergic - G tube dependent - thrombocytopenia - borderline positive [id number] level. 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 - s/p imipenem (08/05- 08/14), IV vanco (07/29-08/13), aztreonam (07/29-08/05), cefazolin (08/14-08/23), caspo (08/11-08/23) recommendations: - complete 5 day course of renally dosed acyclovir for HSV infection on L face ( 08/25/2016-08/30/2016) Problems: Consultation Date/Type/Reason Admit Date/Time Jul 26, 2016 at 01:55 Initial Consult Date 07/29/16 Type of Consultation: ID Referring Provider: GRACIE KATHLEEN 24 HR Interval Summary Subjective hx not possible: pt non-verbal Exam/Review of Systems Vital Signs Vitals Vital Signs Date Time Temp Pulse Resp B/P Pulse Ox O2 Delivery O2 Flow Rate FiO2 08/27/16 08:38 96 08/27/16 08:01 98.9 18 96/46 97 08/27/16 07:20 30 08/26/16 20:00 Mechanical Ventilator Trach Collar Intake and Output 08/26/16 08/26/16 08/27/16 15:00 23:00 07:00 Intake Total 430 ml 650 ml Output Total 100 ml Balance 430 ml 550 ml Exam Constitutional: frail, non-verbal Psych: confusion Head: atraumatic, normocephalic Eyes: nl conjunctiva, nl lids ENMT: nl external ears & nose Neck: other (trach) Respiratory: clear to auscultation, normal air movement Cardiovascular: nl pulses, regular rate and rhythm Gastrointestinal: non-tender, other (G tube), soft Musculoskeletal: other (s/p L BKA) Extremities: edema Neurological: confused, unresponsive Skin: ecchymosis Results Result Diagram: 08/27/16 0632 08/27/16 0632 Results 24 hrs Laboratory Tests Test 08/26/16 13:50 08/26/16 17:02 08/26/16 20:03 08/27/16 02:39 Bedside Glucose 174 193 176 87 Test 08/27/16 05:36 08/27/16 06:32 08/27/16 08:01 Bedside Glucose 113 123 Anion Gap 16 Basophils # 0.0 Basophils % 0.3 Blood Morphology Comment Blood Urea Nitrogen 55 H Calcium Level 7.4 L Carbon Dioxide Level 27 Chloride Level 95 L Creatinine 2.74 #H Eosinophils # 0.1 Eosinophils % 0.9 Glucose Level 112 # Hematocrit 26.3 L Hemoglobin 9.0 L Lymphocytes # 0.9 Lymphocytes % 12.4 L Mean Corpuscular Hemoglobin 33.2 H Mean Corpuscular Hemoglobin Concent 34.1 Mean Corpuscular Volume 97.6 Mean Platelet Volume 7.7 Monocytes # 0.4 Monocytes % 4.8 Neutrophils # 6.2 Neutrophils % 81.6 H Nucleated Red Blood Cells # 0.0 Nucleated Red Blood Cells % 0.0 Platelet Count 75 L Potassium Level 2.9 *L Red Blood Count 2.70 L Red Cell Distribution Width 18.6 H Sodium Level 135 White Blood Count 7.6 Medications Medications Current Medications Fluticasone Propionate (Flonase 0.05% Nasal) 1 spray BID NASAL Last administered on 08/27/16 09:40; Admin Dose 1 SPRAY; Start 07/26/16 at 10:00 Epoetin [place] (Epogen (Esrd)) 10,000 units MoWeFr@17 SC Last administered on 08/24 17:48; Admin Dose 10,000 UNITS; Start 07/27/16 at 17:00; Status Future hold Hydralazine HCl (Apresoline) 10 mg Q6H PRN IV ELEVATED BLOOD PRESSURE Last administered on 08/15/16at 15:37; Admin Dose 10 MG; Start 07/29/16 at 13:00 Acetaminophen (Tylenol Tab) 650 mg Q6H PRN GTB PAIN1-3/FEVER ABOVE 100 Last administered on 08/12/16at 06:07; Admin Dose 650 MG; Start 08/02/16 at 15:00 Atorvastatin Calcium (Lipitor) 40 mg HS GTB Last administered on 08/26/16 21:25 ; Admin Dose 40 MG; Start 08/02/16 at 21:00 Carvedilol (Coreg) 6.25 mg BID GTB ; Start 08/02/16 at 09:00; Status Future hold Duloxetine HCl (Cymbalta) 90 mg DAILY GTB Last administered on 08/27/16 08:13; Admin Dose 90 MG; Start 08/02/16 at 09:00 Guaifenesin (Robitussin Liquid Cup) 100 mg Q4 PRN GTB COUGH; Start 08/02/16 at 09:00 Acetaminophen/ Hydrocodone Bitart ([place] (5/325)) 1 tab Q4 PRN GTB WSOB Last administered on 08/24/16 21:04; Admin Dose 1 TAB; Start 08/02/16 at 09:00 Lactobacillus Acidoph/Bulgaricus (Floranex) 1 tab DAILY GTB Last administered on 08/27/16 08:13; Admin Dose 1 TAB; Start 08/02/16 at 09:00 Lorazepam (Ativan) 1 mg Q6H PRN GTB ANXIETY Last administered on 08/18/16at 10: 45; Admin Dose 1 MG; Start 08/02/16 at 09:00 Multivit/Ca Carb/ B Cmplx/FA/Prenat (Cheryl-Darcie) 1 tab DAILY GTB Last administered on 08/27/16 08:13; Admin Dose 1 TAB; Start 08/02/16 at 09:00 Aspirin (Aspirin) 81 mg DAILY GTB Last administered on 08/27/16 08:13; Admin Dose 81 MG; Start 08/02/16 at 09:00 Lansoprazole (Prevacid) 30 mg DAILY@06 GTB Last administered on 08/27/16 05:38 ; Admin Dose 30 MG; Start 08/02/16 at 10:00 Sildenafil Citrate (Revatio) 20 mg BID PO Last administered on 08/27/16 08:13; Admin Dose 20 MG; Start 08/08/16 at 21:00; Status Future hold Lorazepam (Ativan) 0.5 mg Q4 PRN IV ANXIETY Last administered on 08/24/16 04:04 ; Admin Dose 0.5 MG; Start 08/09/16 at 00:00 Methylprednisolone Sodium Succinate (Solu-Medrol) 20 mg DAILY IV Last administered on 08/27/16 08:12; Admin Dose 20 MG; Start 08/10/16 at 09:00 Miscellaneous Information 1 ea NOTE XX ; Start 08/11/16 at 12:00 Glucose (Glutose) 15 gm Q15M PRN PO DECREASED GLUCOSE; Start 08/11/16 at 12:00 Glucose (Glutose) 22.5 gm Q15M PRN PO DECREASED GLUCOSE; Start 08/11/16 at 12: 00 Dextrose (D50w Syringe) 25 ml Q15M PRN IV DECREASED GLUCOSE Last administered on 08/24/16 12:54; Admin Dose 25 ML; Start 08/11/16 at 12:00 Dextrose (D50w Syringe) 50 ml Q15M PRN IV DECREASED GLUCOSE; Start 08/11/16 at 12:00 Glucagon (Glucagen) 1 mg Q15M PRN IM DECREASED GLUCOSE; Start 08/11/16 at 12: 00 Glucose (Glutose) 15 gm Q15M PRN BUCCAL DECREASED GLUCOSE; Start 08/11/16 at 12:00 Insulin Aspart (Novolog Insulin Pen) NOVOLOG *MODERATE* ALGORI... Q4 SC Last administered on 08/26/16 21:28; Admin Dose 2 UNIT; Start 08/11/16 at 17:00 IV Flush (NS 10 ml) 10 ml PRN PRN IV IV PROTOCOL; Start 08/13/16 at 18:00 Collagenase (Santyl) 1 applic DAILY@22 TOP Last administered on 08/26/16 21:30 ; Admin Dose 1 APPLIC; Start 08/15/16 at 22:00 Insulin Glargine (Lantus) 25 unit QAM SC Last administered on 08/26/16 09:08; Admin Dose 25 UNIT; Start 08/18/16 at 09:00 Acyclovir (Zovirax) 200 mg BID GTB Last administered on 08/27/16 08:14; Admin Dose 200 MG; Start 08/25/16 at 21:00; Stop 08/30/16 at 20:59 SADIA LONDON M.D. Aug 27, 2016 10:34 SADIA LONDON M.D. Aug 27, 2016 10:34
--- NOTE | 2016-08-27 15:36 | CONS ---
Date/Time of Note Date/Time of Note DATE: 08/27/16 TIME: 15:34 Assessment/Plan Assessment/Plan Additional Assessment/Plan Respiratory failure status post intubation Sepsis Minimally elevated troponin DVT Diastolic congestive heart failure End-stage renal disease on hemodialysis CAD with history of PCI Diabetes Peripheral arterial disease with history of amputation Pulmonary hypertension -Patient with inconsistencies with blood pressure readings given peripheral arterial disease and blood pressure being checked on different limbs. Would hold off on reinitiation of beta shivani and sildenafil until blood pressure trend remains stable. Consultation Date/Type/Reason Admit Date/Time Jul 26, 2016 at 01:55 Type of Consultation: cv Referring Provider: GRACIE KATHLEEN 24 HR Interval Summary Free Text/Dictation Patient seen and examined Exam/Review of Systems Vital Signs Vitals Vital Signs Date Time Temp Pulse Resp B/P Pulse Ox O2 Delivery O2 Flow Rate FiO2 08/27/16 15:00 74 20 98 30 08/27/16 12:04 99.1 115/51 08/26/16 20:00 Mechanical Ventilator Trach Collar Intake and Output 08/26/16 08/26/16 08/27/16 14:59 22:59 06:59 Intake Total 430 ml 650 ml Output Total 100 ml Balance 430 ml 550 ml Exam Sleeping, no apparent distress Head: normocephalic Neck: other (status post tracheostomy) Respiratory: other (course breath sounds bilaterally, no wheezing) Cardiovascular: other (S1-S2 heard), regular rate and rhythm Gastrointestinal: bowel sounds, non-tender, soft Extremities: edema Results Result Diagram: 08/27/16 0632 08/27/16 0632 Results 24 hrs Laboratory Tests Test 08/26/16 17:02 08/26/16 20:03 08/27/16 02:39 08/27/16 05:36 Bedside Glucose 193 176 87 113 Test 08/27/16 06:32 08/27/16 08:01 08/27/16 11:58 Anion Gap 16 Basophils # 0.0 Basophils % 0.3 Blood Morphology Comment Blood Urea Nitrogen 55 H Calcium Level 7.4 L Carbon Dioxide Level 27 Chloride Level 95 L Creatinine 2.74 #H Eosinophils # 0.1 Eosinophils % 0.9 Glucose Level 112 # Hematocrit 26.3 L Hemoglobin 9.0 L Lymphocytes # 0.9 Lymphocytes % 12.4 L Mean Corpuscular Hemoglobin 33.2 H Mean Corpuscular Hemoglobin Concent 34.1 Mean Corpuscular Volume 97.6 Mean Platelet Volume 7.7 Monocytes # 0.4 Monocytes % 4.8 Neutrophils # 6.2 Neutrophils % 81.6 H Nucleated Red Blood Cells # 0.0 Nucleated Red Blood Cells % 0.0 Platelet Count 75 L Potassium Level 2.9 *L Red Blood Count 2.70 L Red Cell Distribution Width 18.6 H Sodium Level 135 White Blood Count 7.6 Bedside Glucose 123 165 Medications Medications Current Medications Fluticasone Propionate (Flonase 0.05% Nasal) 1 spray BID NASAL Last administered on 08/27/16 09:40; Admin Dose 1 SPRAY; Start 07/26/16 at 10:00 Epoetin [place] (Epogen (Esrd)) 10,000 units MoWeFr@17 SC Last administered on 08/24 17:48; Admin Dose 10,000 UNITS; Start 07/27/16 at 17:00; Status Future hold Hydralazine HCl (Apresoline) 10 mg Q6H PRN IV ELEVATED BLOOD PRESSURE Last administered on 08/15/16at 15:37; Admin Dose 10 MG; Start 07/29/16 at 13:00 Acetaminophen (Tylenol Tab) 650 mg Q6H PRN GTB PAIN1-3/FEVER ABOVE 100 Last administered on 08/12/16at 06:07; Admin Dose 650 MG; Start 08/02/16 at 15:00 Atorvastatin Calcium (Lipitor) 40 mg HS GTB Last administered on 08/26/16 21:25 ; Admin Dose 40 MG; Start 08/02/16 at 21:00 Carvedilol (Coreg) 6.25 mg BID GTB ; Start 08/02/16 at 09:00; Status Future hold Duloxetine HCl (Cymbalta) 90 mg DAILY GTB Last administered on 08/27/16 08:13; Admin Dose 90 MG; Start 08/02/16 at 09:00 Guaifenesin (Robitussin Liquid Cup) 100 mg Q4 PRN GTB COUGH; Start 08/02/16 at 09:00 Acetaminophen/ Hydrocodone Bitart ([place] (5/325)) 1 tab Q4 PRN GTB WSOB Last administered on 08/24/16 21:04; Admin Dose 1 TAB; Start 08/02/16 at 09:00 Lactobacillus Acidoph/Bulgaricus (Floranex) 1 tab DAILY GTB Last administered on 08/27/16 08:13; Admin Dose 1 TAB; Start 08/02/16 at 09:00 Lorazepam (Ativan) 1 mg Q6H PRN GTB ANXIETY Last administered on 08/18/16at 10: 45; Admin Dose 1 MG; Start 08/02/16 at 09:00 Multivit/Ca Carb/ B Cmplx/FA/Prenat (Cheryl-Darcie) 1 tab DAILY GTB Last administered on 08/27/16 08:13; Admin Dose 1 TAB; Start 08/02/16 at 09:00 Aspirin (Aspirin) 81 mg DAILY GTB Last administered on 08/27/16 08:13; Admin Dose 81 MG; Start 08/02/16 at 09:00 Lansoprazole (Prevacid) 30 mg DAILY@06 GTB Last administered on 08/27/16 05:38 ; Admin Dose 30 MG; Start 08/02/16 at 10:00 Sildenafil Citrate (Revatio) 20 mg BID PO Last administered on 08/27/16 08:13; Admin Dose 20 MG; Start 08/08/16 at 21:00; Status Future hold Lorazepam (Ativan) 0.5 mg Q4 PRN IV ANXIETY Last administered on 08/24/16 04:04 ; Admin Dose 0.5 MG; Start 08/09/16 at 00:00 Methylprednisolone Sodium Succinate (Solu-Medrol) 20 mg DAILY IV Last administered on 08/27/16 08:12; Admin Dose 20 MG; Start 08/10/16 at 09:00 Miscellaneous Information 1 ea NOTE XX ; Start 08/11/16 at 12:00 Glucose (Glutose) 15 gm Q15M PRN PO DECREASED GLUCOSE; Start 08/11/16 at 12:00 Glucose (Glutose) 22.5 gm Q15M PRN PO DECREASED GLUCOSE; Start 08/11/16 at 12: 00 Dextrose (D50w Syringe) 25 ml Q15M PRN IV DECREASED GLUCOSE Last administered on 08/24/16 12:54; Admin Dose 25 ML; Start 08/11/16 at 12:00 Dextrose (D50w Syringe) 50 ml Q15M PRN IV DECREASED GLUCOSE; Start 08/11/16 at 12:00 Glucagon (Glucagen) 1 mg Q15M PRN IM DECREASED GLUCOSE; Start 08/11/16 at 12: 00 Glucose (Glutose) 15 gm Q15M PRN BUCCAL DECREASED GLUCOSE; Start 08/11/16 at 12:00 Insulin Aspart (Novolog Insulin Pen) NOVOLOG *MODERATE* ALGORI... Q4 SC Last administered on 08/27/16 12:05; Admin Dose 2 UNIT; Start 08/11/16 at 17:00 IV Flush (NS 10 ml) 10 ml PRN PRN IV IV PROTOCOL; Start 08/13/16 at 18:00 Collagenase (Santyl) 1 applic DAILY@22 TOP Last administered on 08/26/16 21:30 ; Admin Dose 1 APPLIC; Start 08/15/16 at 22:00 Insulin Glargine (Lantus) 25 unit QAM SC Last administered on 08/26/16 09:08; Admin Dose 25 UNIT; Start 08/18/16 at 09:00 Acyclovir (Zovirax) 200 mg BID GTB Last administered on 08/27/16 08:14; Admin Dose 200 MG; Start 08/25/16 at 21:00; Stop 08/30/16 at 20:59 Solo Leon DO Aug 27, 2016 15:36
[2016-08-27] MEDS: EPOETIN 10000 UNITS/1 ML INJ (ESRD) SC SCH (17:48)
--- NOTE | 2016-08-27 19:21 | PN ---
DATE: SUBJECTIVE: Follow up on 66-year-old gentleman with end-stage renal disease, respiratory failure, s tatus post tracheostomy and G-tube placement. The patient continues on ventilator support. With hy pokalemia today, potassium is replaced. The patient currently is awake, alert. T-max is 99.1. No nausea, vomiting reported. OBJECTIVE: VITAL SIGNS: Temperature is 98.0, pulse is 74, blood pressure 149/58, respiratory rate 18, oxygen s aturation 97% on 30% FIO2. GENERAL: Well-developed, well-nourished male, currently on vent support. HEENT: Head is atraumatic, normocephalic. PERRLA. NECK: Supple. Tracheostomy at the base of the neck. LUNGS: Slightly diminished at the bases. Clear in the upper lobes. HEART: Normal S1, S2. No murmurs, gallops, clicks, rubs noted. ABDOMEN: Protuberant, soft, nondistended, nontender. G-tube in place. EXTREMITIES: The patient is status post left BKA. Right lower extremity with mild edema. The taya ent has a left upper extremity arteriovenous fistula with palpable thrill and audible bruit. SKIN: No rash, petechiae noted. NEUROLOGIC: The patient is awake, alert. ASSESSMENT AND PLAN: 1. Acute hypoxemic respiratory failure, status post tracheostomy. The patient is followed by Dr. Antonia harley in pulmonology consultation. 2. Possible pneumonia. Is status post treatment with antibiotics. The patient is followed by Dr. Hammer. 3. End-stage renal disease on hemodialysis. The patient is followed by Dr. Bassett in nephrology c onsultation. Continue hemodialysis per nephrology. 3. Diastolic congestive heart failure. Continue fluid removal with dialysis. 4. Dysphagia with percutaneous endoscopic gastrostomy placement. Continue to monitor residual. 5. 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 Continue on acyclovir. 6. Diabetes mellitus. Continue Lantus and NovoLog. 7. Pulmonary hypertension. Continue patient on Revatio. 8. Hyperlipidemia. Continue Lipitor. 9. Peripheral arterial disease status post amputation. 10. Sacral decubitus stage II. Continue current wound care, offloading. Further recommendations based on clinical course. Plan of care discussed with Dr. Emerson. Dictated By: MARY DOMINGUEZ HYDROBLASTER bernardino EMERSON MD, SR/OLESYA Conf#: [id number] DID#: [id number]
[2016-08-27] MEDS: ATORVASTATIN 40 MG TAB GTB SCH (21:00)
[2016-08-27] MEDS: COLLAGENASE 30 GM TUBE TOP SCH (21:10)
--- NOTE | 2016-08-27 21:56 | PN ---
Date/Time of Note Date/Time of Note DATE: 08/27/16 TIME: 21:56 Assessment/Plan Lines/Catheters IV Catheter Type (from Nrsg): PICC Line Vicente in Place (from Nrsg): No Assessment/Plan Chief Complaint/Hosp Course IMPRESSION: 1. Respiratory failure. 2. Coagulopathy. 3. Anemia. RECOMMENDATIONS: SP tracheostomy Will continue supp care Discussed with the referring physicians. Problems: Subjective 24 Hr Interval Summary Constitutional: improved Pain Control: mild Exam/Review of Systems Vital Signs Vitals Vital Signs Date Time Temp Pulse Resp B/P Pulse Ox O2 Delivery O2 Flow Rate FiO2 08/27/16 20:43 97.6 75 20 115/63 99 08/27/16 20:41 30 08/26/16 20:00 Mechanical Ventilator Trach Collar Intake and Output 08/26/16 08/26/16 08/27/16 15:00 23:00 07:00 Intake Total 430 ml 650 ml Output Total 100 ml Balance 430 ml 550 ml Exam ENMT: mucosa pink and moist, nl external ears & nose, nl lips & teeth, nl nasal mucosa & septum Neck: non-tender, supple Respiratory: clear to auscultation, normal air movement Cardiovascular: nl pulses, regular rate and rhythm Gastrointestinal: nl liver, spleen, non-tender, soft Results Result Diagram: 08/27/16 0632 08/27/1632 SAUL HUMPHREY MD Aug 27, 2016 21:56
[2016-08-28] VITALS (29 sets, daily range): BP systolic 101–173; BP diastolic 33–80; PULSE 66–90; RESP 18–22
[2016-08-28] MEDS: INSULIN ASPART [NOVOLOG] 3 ML PEN SC SCH ×6 (01:14→22:43)
[2016-08-28] MEDS: ALBUTEROL HFA 8 GM INHALER INH SCH ×4 (02:21→19:59)
[2016-08-28] MEDS: IPRATROPIUM (HFA) 12.9 GM INHALER INH SCH ×4 (02:21→20:00)
[2016-08-28] MEDS: LANSOPRAZOLE 30 MG CAP GTB SCH (06:00)
--- NOTE | 2016-08-28 07:51 | CONS ---
Date/Time of Note Date/Time of Note DATE: 08/28/16 TIME: 07:44 Assessment/Plan Assessment/Plan Problems: (1) ESRD (end stage renal disease) on dialysis Comment: for planned HD today (2) Respiratory failure, acute and chronic Comment: stable on the vent (3) Diabetes mellitus Comment: good sugar control (4) CHF (congestive heart failure) Comment: controlled w UF on dialysis Consultation Date/Type/Reason Admit Date/Time Jul 26, 2016 at 01:55 Initial Consult Date 07/29/16 Type of Consultation: nephrology Referring Provider: GRACIE KATHLEEN 24 HR Interval Summary Free Text/Dictation remains intubated on the vent, FiO2 of 30%... PEG in place... no distress Subjective hx not possible: pt non-verbal Constitutional: requiring O2 Detailed Summary Respiratory: no complaints Cardiovascular: no complaints Gastrointestinal: no complaints Exam/Review of Systems Vital Signs Vitals Vital Signs Date Time Temp Pulse Resp B/P Pulse Ox O2 Delivery O2 Flow Rate FiO2 08/28/16 05:30 75 20 100 30 08/28/16 03:49 98.1 113/52 08/26/16 20:00 Mechanical Ventilator Trach Collar Intake and Output 08/27/16 08/27/16 08/28/16 15:00 23:00 07:00 Intake Total 560 ml 610 ml Balance 560 ml 610 ml Exam Head: normocephalic Neck: jvd Respiratory: clear to auscultation, normal air movement Cardiovascular: regular rate and rhythm Gastrointestinal: soft Additional Comments well fxn AVF in LUE Results well fxn AVF in the LUE Result Diagram: 08/27/16 0632 08/27/16 0632 Results 24 hrs Laboratory Tests Test 08/27/16 08:01 08/27/16 11:58 08/27/16 17:23 08/27/16 20:28 Bedside Glucose 123 165 182 169 Test 08/28/16 01:10 08/28/16 05:53 Bedside Glucose 148 155 Medications Medications Current Medications Fluticasone Propionate (Flonase 0.05% Nasal) 1 spray BID NASAL Last administered on 08/27/16t 20:59; Admin Dose 1 SPRAY; Start 07/26/16 at 10:00 Epoetin [place] (Epogen (Esrd)) 10,000 units MoWeFr@17 SC Last administered on 08/27 17:48; Admin Dose 10,000 UNITS; Start 07/27/16 at 17:00; Status Future hold Hydralazine HCl (Apresoline) 10 mg Q6H PRN IV ELEVATED BLOOD PRESSURE Last administered on 08/15/16at 15:37; Admin Dose 10 MG; Start 07/29/16 at 13:00 Acetaminophen (Tylenol Tab) 650 mg Q6H PRN GTB PAIN1-3/FEVER ABOVE 100 Last administered on 08/12/16 06:07; Admin Dose 650 MG; Start 08/02/16 at 15:00 Atorvastatin Calcium (Lipitor) 40 mg HS GTB Last administered on 08/27/16 21:00 ; Admin Dose 40 MG; Start 08/02/16 at 21:00 Carvedilol (Coreg) 6.25 mg BID GTB Last administered on 08/27/16 21:01; Admin Dose 6.25 MG; Start 08/02/16 at 09:00; Status Future hold Duloxetine HCl (Cymbalta) 90 mg DAILY GTB Last administered on 08/27/16 08:13; Admin Dose 90 MG; Start 08/02/16 at 09:00 Guaifenesin (Robitussin Liquid Cup) 100 mg Q4 PRN GTB COUGH; Start 08/02/16 at 09:00 Acetaminophen/ Hydrocodone Bitart ([place] (5/325)) 1 tab Q4 PRN GTB WSOB Last administered on 08/24/16 21:04; Admin Dose 1 TAB; Start 08/02/16 at 09:00 Lactobacillus Acidoph/Bulgaricus (Floranex) 1 tab DAILY GTB Last administered on 08/27/16 08:13; Admin Dose 1 TAB; Start 08/02/16 at 09:00 Lorazepam (Ativan) 1 mg Q6H PRN GTB ANXIETY Last administered on 08/18/16at 10: 45; Admin Dose 1 MG; Start 08/02/16 at 09:00 Multivit/Ca Carb/ B Cmplx/FA/Prenat (Cheryl-Darcie) 1 tab DAILY GTB Last administered on 08/27/16 08:13; Admin Dose 1 TAB; Start 08/02/16 at 09:00 Aspirin (Aspirin) 81 mg DAILY GTB Last administered on 08/27/16 08:13; Admin Dose 81 MG; Start 08/02/16 at 09:00 Lansoprazole (Prevacid) 30 mg DAILY@06 GTB Last administered on 08/28/16 06:00 ; Admin Dose 30 MG; Start 08/02/16 at 10:00 Sildenafil Citrate (Revatio) 20 mg BID PO Last administered on 08/27/16 21:08; Admin Dose 20 MG; Start 08/08/16 at 21:00; Status Future hold Lorazepam (Ativan) 0.5 mg Q4 PRN IV ANXIETY Last administered on 08/24/16 04:04 ; Admin Dose 0.5 MG; Start 08/09/16 at 00:00 Methylprednisolone Sodium Succinate (Solu-Medrol) 20 mg DAILY IV Last administered on 08/27/16 08:12; Admin Dose 20 MG; Start 08/10/16 at 09:00 Miscellaneous Information 1 ea NOTE XX ; Start 08/11/16 at 12:00 Glucose (Glutose) 15 gm Q15M PRN PO DECREASED GLUCOSE; Start 08/11/16 at 12:00 Glucose (Glutose) 22.5 gm Q15M PRN PO DECREASED GLUCOSE; Start 08/11/16 at 12: 00 Dextrose (D50w Syringe) 25 ml Q15M PRN IV DECREASED GLUCOSE Last administered on 08/24/16 12:54; Admin Dose 25 ML; Start 08/11/16 at 12:00 Dextrose (D50w Syringe) 50 ml Q15M PRN IV DECREASED GLUCOSE; Start 08/11/16 at 12:00 Glucagon (Glucagen) 1 mg Q15M PRN IM DECREASED GLUCOSE; Start 08/11/16 at 12: 00 Glucose (Glutose) 15 gm Q15M PRN BUCCAL DECREASED GLUCOSE; Start 08/11/16 at 12:00 Insulin Aspart (Novolog Insulin Pen) NOVOLOG *MODERATE* ALGORI... Q4 SC Last administered on 08/28/16 05:57; Admin Dose 2 UNIT; Start 08/11/16 at 17:00 IV Flush (NS 10 ml) 10 ml PRN PRN IV IV PROTOCOL; Start 08/13/16 at 18:00 Collagenase (Santyl) 1 applic DAILY@22 TOP Last administered on 08/27/16 21:10 ; Admin Dose 1 APPLIC; Start 08/15/16 at 22:00 Insulin Glargine (Lantus) 25 unit QAM SC Last administered on 08/26/16 09:08; Admin Dose 25 UNIT; Start 08/18/16 at 09:00 Acyclovir (Zovirax) 200 mg BID GTB Last administered on 08/27/16 20:59; Admin Dose 200 MG; Start 08/25/16 at 21:00; Stop 08/30/16 at 20:59 MOSES GUAJARDO MD Aug 28, 2016 07:50
[2016-08-28 08:15] LABS: BASOPHILS % 0.3 % (0.0-2.0); EOSINOPHILS # 0.1 10^3/ul (0.0-0.5); EOSINOPHILS % 1.2 % (0.0-7.0); HEMATOCRIT 26.2 % (42.0-52.0); HEMOGLOBIN 8.9 g/dl (14.0-18.0); LYMPHOCYTES # 0.8 10^3/ul (0.8-2.9); LYMPHOCYTES % 12.3 % (15.0-51.0); MEAN CORPUSCULAR HEMOGLOBIN 32.8 pg (29.0-33.0); MEAN CORPUSCULAR HGB CONC 33.9 g/dl (32.0-37.0); MEAN CORPUSCULAR VOLUME 96.7 fl (82.0-101.0); MEAN PLATELET VOLUME 8.2 fl (7.4-10.4); MONOCYTE # 0.4 10^3/ul (0.3-0.9); MONOCYTES % 6.8 % (0.0-11.0); NEUTROPHILS % 79.4 % (39.0-77.0); RED BLOOD COUNT 2.71 10^6/ul (4.70-6.10); UNCORRECTED WBC 6.3 10^3/ul (4.8-10.8); WHITE BLOOD COUNT 6.3 10^3/ul (4.8-10.8)
[2016-08-28 08:19] LABS: CONDITION 1; LH ANALYZER COMMENTS 1; POTASSIUM 3.2 mmol/L (3.5-5.1)
[2016-08-28 08:20] LABS: PLATELET COUNT 78 10^3/UL (140-440)
[2016-08-28 08:22] LABS: CALCIUM 7.4 mg/dl (8.4-10.2); CREATININE 3.51 mg/dl (0.61-1.24)
[2016-08-28] MEDS: SILDENAFIL 20 MG TAB PO SCH ×2 (09:00→22:22)
--- NOTE | 2016-08-28 09:13 | CONS ---
DATE OF ADMISSION: 07/26/2016 DATE OF CONSULTATION: NEPHROLOGY NOTE SUBJECTIVE: The patient is resting comfortably in bed. He remains on the vent with an FIO2 of 30% with 100% saturations. He is in no distress. PHYSICAL EXAMINATION: VITAL SIGNS: He remains afebrile, blood pressure is 115/50, heart rate is 80 and regular, respirati ons are 12 and unlabored, O2 saturation 100%. SKIN: No new rashes. LUNGS: Clear. HEART: S1, S2. ABDOMEN: Soft. EXTREMITIES: Well-functioning left upper extremity AV fistula. LABORATORY DATA: None new. PROBLEM LIST: 1. End-stage renal disease, for planned hemodialysis today. 2. Hypokalemia, treated with potassium yesterday. 3. Thrombocytopenia, stable. RECOMMENDATIONS: Dialysis today. Dictated By: MOSES GUAJARDO MD, MM/OLESYA Conf#: [id number] DID#: [id number]
[2016-08-28] MEDS: ASPIRIN 81 MG TAB GTB SCH (09:48)
[2016-08-28] MEDS: METHYLPREDNISOLONE 40 MG INJ IV SCH (09:48)
[2016-08-28] MEDS: LACTOBACILLUS CHEW TAB GTB SCH (09:48)
[2016-08-28] MEDS: ACYCLOVIR 200 MG CAP GTB SCH ×2 (09:48→22:23)
[2016-08-28] MEDS: DULOXETINE 30 MG CAP DR GTB SCH (09:48)
[2016-08-28] MEDS: FLUTICASONE 0.05% 16 GM NAS SPRAY NASAL SCH ×2 (09:49→22:24)
[2016-08-28] MEDS: MULTIVIT/CA CARB/B CMPLX/FA TAB GTB SCH (09:49)
[2016-08-28] MEDS: INSULIN GLARGINE [LANtus] 3 ML PEN SC SCH (10:01)
[2016-08-28] MEDS ORDERED: POTASSIUM CHLORIDE (SR) 20 MEQ TAB PO STA (10:46)
[2016-08-28] MEDS ORDERED: POTASSIUM CHLORIDE (SR) 20 MEQ TAB PO ONE (11:00)
[2016-08-28] MEDS: ALBUMIN HUMAN 25% 100 ML IV PRN (11:25)
--- NOTE | 2016-08-28 11:37 | PN ---
Date/Time of Note Date/Time of Note DATE: 08/28/16 TIME: 11:35 Assessment/Plan Lines/Catheters IV Catheter Type (from Nrs): PICC Line Vicente in Place (from Nrs): No Assessment/Plan Chief Complaint/Hosp Course IMPRESSION: 1. Respiratory failure. 2. Coagulopathy. 3. Anemia. RECOMMENDATIONS: SP tracheostomy Will continue supp care Discussed with the referring physicians. Problems: Subjective 24 Hr Interval Summary Constitutional: improved Pain Control: mild Exam/Review of Systems Vital Signs Vitals Vital Signs Date Time Temp Pulse Resp B/P Pulse Ox O2 Delivery O2 Flow Rate FiO2 08/28/16 09:30 74 08/28/16 09:00 20 08/28/16 08:00 99.1 108/44 94 Mechanical Ventilator 08/28/16 07:20 30 Intake and Output 08/27/16 08/27/16 08/28/16 15:00 23:00 07:00 Intake Total 560 ml 610 ml Balance 560 ml 610 ml Exam Neck: non-tender, supple Respiratory: clear to auscultation, normal air movement Cardiovascular: nl pulses, regular rate and rhythm Gastrointestinal: nl liver, spleen, non-tender, soft Results Result Diagram: 08/28/16 0650 08/28/16 0650 SAUL HUMPHREY MD Aug 28, 2016 11:36
--- NOTE | 2016-08-28 14:48 | PN ---
DATE: 08/28/2016 PULMONARY FOLLOWUP SUBJECTIVE: Chart reviewed. Events noted. The patient remains on ventilator on 30% FIO2, saturati ng 96% and does not appear in acute distress. PHYSICAL EXAMINATION: VITAL SIGNS: Blood pressure 140/48, pulse 72, respirations 18, temperature 98.3. HEENT: Pupils are equal and reactive to light. NECK: Supple, no JVD noted, no cervical adenopathy, no carotid bruits heard. Tracheostomy site lindsay ar. LUNGS: Few scattered rhonchi. CARDIOVASCULAR: S1, S2 normal. ABDOMEN: Soft, nontender. Positive bowel sounds. EXTREMITIES: No clubbing or cyanosis noted. NEUROLOGICAL: Encephalopathic. LABORATORY DATA: WBC 6.3, hemoglobin 8.9, hematocrit 26.2, platelets 78. Sodium 135, potassium 3.2 , chloride 96, CO2 26, BUN 67, creatinine 3.51, glucose 141. IMPRESSION: 1. Ventilator-dependent respiratory failure, hypoxemic. 2. End-stage renal disease on hemodialysis. 3. Pulmonary edema. 4. Possible aspiration pneumonia. RECOMMENDATIONS 1. Continue ventilator support. 2. Hemodialysis per nephrology. 3. Antibiotics per ID. 4. Followup labs. Dictated By: EMILEE ORANTES MD, MA/OLESYA Conf#: [id number] DID#: [id number]
[2016-08-28] MEDS: hydrALAzine 20 MG INJ IV PRN (16:35)
--- NOTE | 2016-08-28 17:08 | CONS ---
Date/Time of Note Date/Time of Note DATE: 08/28/16 TIME: 17:06 Assessment/Plan Assessment/Plan Chief Complaint/Hosp Course assessment/impression: - VDRF s/p trach - h/o aspiration PNA: respiratory Cx on 08/10 grew MSSA and C. Albicans - h/o septic shock - h/o C diff colitis, last C diff test on 08/24/2016 negative - h/o intermittent fever - h/o RUE cellulitis complicated by axillary/cephalic venous thrombosis - toxic metabolic encephalopathy - ESRD on HD - Diastolic CHF, CAD with Hx PCI, paroxysmal atrial tachycardia - Old partial DVT of the right internal jugular vein. - PAD s/p BKA - underlying Parkinson's disease - Stage 2 coccyx decub - PCN allergic - G tube dependent - thrombocytopenia - borderline positive [id number] level. 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 - s/p imipenem (08/05- 08/14), IV vanco (07/29-08/13), aztreonam (07/29-08/05), cefazolin (08/14-08/23), caspo (08/11-08/23) recommendations: - complete 5 day course of renally dosed acyclovir for HSV infection on L face ( 08/25/2016-08/30/2016) Problems: Consultation Date/Type/Reason Admit Date/Time Jul 26, 2016 at 01:55 Initial Consult Date 07/29/16 Type of Consultation: ID Referring Provider: GRACIE KATHLEEN 24 HR Interval Summary Subjective hx not possible: pt non-verbal Exam/Review of Systems Vital Signs Vitals Vital Signs Date Time Temp Pulse Resp B/P Pulse Ox O2 Delivery O2 Flow Rate FiO2 08/28/16 16:22 73 08/28/16 16:00 97.9 19 173/77 99 08/28/16 15:05 30 08/28/16 08:00 Mechanical Ventilator Intake and Output 08/27/16 08/27/16 08/28/16 15:00 23:00 07:00 Intake Total 560 ml 610 ml Balance 560 ml 610 ml Exam Constitutional: frail, non-verbal Psych: confusion Head: atraumatic, normocephalic Eyes: nl conjunctiva, nl lids ENMT: nl external ears & nose Neck: other (trach) Respiratory: diminished breath sounds Cardiovascular: nl pulses, regular rate and rhythm Gastrointestinal: non-tender, other (GT RT), soft Musculoskeletal: other (s/p L BKA) Extremities: edema Neurological: confused Skin: other (lesions on L face are crusting and disappearing) Results Result Diagram: 08/28/16 0650 08/28/16 0650 Results 24 hrs Laboratory Tests Test 08/27/16 17:23 08/27/16 20:28 08/28/16 01:10 08/28/16 05:53 Bedside Glucose 182 169 148 155 Test 08/28/16 06:50 08/28/16 08:09 08/28/16 16:34 Anion Gap 16 Basophils # 0.0 Basophils % 0.3 Blood Morphology Comment Blood Urea Nitrogen 67 H Calcium Level 7.4 L Carbon Dioxide Level 26 Chloride Level 96 L Creatinine 3.51 H Eosinophils # 0.1 Eosinophils % 1.2 Glucose Level 141 Hematocrit 26.2 L Hemoglobin 8.9 L Lymphocytes # 0.8 Lymphocytes % 12.3 L Mean Corpuscular Hemoglobin 32.8 Mean Corpuscular Hemoglobin Concent 33.9 Mean Corpuscular Volume 96.7 Mean Platelet Volume 8.2 Monocytes # 0.4 Monocytes % 6.8 Neutrophils # 5.0 Neutrophils % 79.4 H Nucleated Red Blood Cells # 0.0 Nucleated Red Blood Cells % 0.0 Platelet Count 78 L Potassium Level 3.2 L Red Blood Count 2.71 L Red Cell Distribution Width 18.0 H Sodium Level 135 White Blood Count 6.3 Bedside Glucose 187 203 Medications Medications Current Medications Fluticasone Propionate (Flonase 0.05% Nasal) 1 spray BID NASAL Last administered on 08/28/16 09:49; Admin Dose 1 SPRAY; Start 07/26/16 at 10:00 Epoetin [place] (Epogen (Esrd)) 10,000 units MoWeFr@17 SC Last administered on 08/27 17:48; Admin Dose 10,000 UNITS; Start 07/27/16 at 17:00; Status Future hold Hydralazine HCl (Apresoline) 10 mg Q6H PRN IV ELEVATED BLOOD PRESSURE Last administered on 08/28/16 16:35; Admin Dose 10 MG; Start 07/29/16 at 13:00 Acetaminophen (Tylenol Tab) 650 mg Q6H PRN GTB PAIN1-3/FEVER ABOVE 100 Last administered on 08/12/16at 06:07; Admin Dose 650 MG; Start 08/02/16 at 15:00 Atorvastatin Calcium (Lipitor) 40 mg HS GTB Last administered on 08/27/16 21:00 ; Admin Dose 40 MG; Start 08/02/16 at 21:00 Carvedilol (Coreg) 6.25 mg BID GTB Last administered on 08/27/16 21:01; Admin Dose 6.25 MG; Start 08/02/16 at 09:00; Status Future hold Duloxetine HCl (Cymbalta) 90 mg DAILY GTB Last administered on 08/28/16 09:48 ; Admin Dose 90 MG; Start 08/02/16 at 09:00 Guaifenesin (Robitussin Liquid Cup) 100 mg Q4 PRN GTB COUGH; Start 08/02/16 at 09:00 Acetaminophen/ Hydrocodone Bitart ([place] (5/325)) 1 tab Q4 PRN GTB WSOB Last administered on 08/24/16 21:04; Admin Dose 1 TAB; Start 08/02/16 at 09:00 Lactobacillus Acidoph/Bulgaricus (Floranex) 1 tab DAILY GTB Last administered on 08/28/16 09:48; Admin Dose 1 TAB; Start 08/02/16 at 09:00 Lorazepam (Ativan) 1 mg Q6H PRN GTB ANXIETY Last administered on 08/18/16at 10: 45; Admin Dose 1 MG; Start 08/02/16 at 09:00 Multivit/Ca Carb/ B Cmplx/FA/Prenat (Cheryl-Darcie) 1 tab DAILY GTB Last administered on 08/28/16 09:49; Admin Dose 1 TAB; Start 08/02/16 at 09:00 Aspirin (Aspirin) 81 mg DAILY GTB Last administered on 08/28/16 09:48; Admin Dose 81 MG; Start 08/02/16 at 09:00 Lansoprazole (Prevacid) 30 mg DAILY@06 GTB Last administered on 08/28/16 06:00 ; Admin Dose 30 MG; Start 08/02/16 at 10:00 Sildenafil Citrate (Revatio) 20 mg BID PO Last administered on 08/27/16 21:08; Admin Dose 20 MG; Start 08/08/16 at 21:00; Status Future hold Lorazepam (Ativan) 0.5 mg Q4 PRN IV ANXIETY Last administered on 08/24/16 04:04 ; Admin Dose 0.5 MG; Start 08/09/16 at 00:00 Methylprednisolone Sodium Succinate (Solu-Medrol) 20 mg DAILY IV Last administered on 08/28/16 09:48; Admin Dose 20 MG; Start 08/10/16 at 09:00 Miscellaneous Information 1 ea NOTE XX ; Start 08/11/16 at 12:00 Glucose (Glutose) 15 gm Q15M PRN PO DECREASED GLUCOSE; Start 08/11/16 at 12:00 Glucose (Glutose) 22.5 gm Q15M PRN PO DECREASED GLUCOSE; Start 08/11/16 at 12: 00 Dextrose (D50w Syringe) 25 ml Q15M PRN IV DECREASED GLUCOSE Last administered on 08/24/16 12:54; Admin Dose 25 ML; Start 08/11/16 at 12:00 Dextrose (D50w Syringe) 50 ml Q15M PRN IV DECREASED GLUCOSE; Start 08/11/16 at 12:00 Glucagon (Glucagen) 1 mg Q15M PRN IM DECREASED GLUCOSE; Start 08/11/16 at 12: 00 Glucose (Glutose) 15 gm Q15M PRN BUCCAL DECREASED GLUCOSE; Start 08/11/16 at 12:00 Insulin Aspart (Novolog Insulin Pen) NOVOLOG *MODERATE* ALGORI... Q4 SC Last administered on 08/28/16 16:49; Admin Dose 4 UNIT; Start 08/11/16 at 17:00 IV Flush (NS 10 ml) 10 ml PRN PRN IV IV PROTOCOL; Start 08/13/16 at 18:00 Collagenase (Santyl) 1 applic DAILY@22 TOP Last administered on 08/27/16 21:10 ; Admin Dose 1 APPLIC; Start 08/15/16 at 22:00 Insulin Glargine (Lantus) 25 unit QAM SC Last administered on 08/28/16 10:01; Admin Dose 25 UNIT; Start 08/18/16 at 09:00 Acyclovir (Zovirax) 200 mg BID GTB Last administered on 08/28/16 09:48; Admin Dose 200 MG; Start 08/25/16 at 21:00; Stop 08/30/16 at 20:59 SADIA LONDON M.D. Aug 28, 2016 17:08
--- NOTE | 2016-08-28 17:28 | PN ---
Date/Time of Note Date/Time of Note DATE: 08/28/16 TIME: 17:25 Assessment/Plan VTE Prophylaxis VTE Prophylaxis Intervention: SCD's Lines/Catheters [facility] PICC Line Central line still needed: Yes Urinary Cath still in place: No Assessment/Plan Chief Complaint/Hosp Course ASSESSMENT AND PLAN: 1. Acute hypoxemic respiratory failure, status post tracheostomy. The patient is followed by Dr. Andrews in pulmonology consultation. 2. Possible pneumonia. Is status post treatment with antibiotics. The patient is followed by Dr. Hammer. 3. End-stage renal disease on hemodialysis. The patient is followed by Dr. Bassett in nephrology consultation. Continue hemodialysis per nephrology. 3. Diastolic congestive heart failure. Continue fluid removal with dialysis. 4. Dysphagia with percutaneous endoscopic gastrostomy placement. Continue to monitor residual. 5. 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 Continue on acyclovir. 6. Diabetes mellitus. Continue Lantus and NovoLog. 7. Pulmonary hypertension. Continue patient on Revatio. 8. Hyperlipidemia. Continue Lipitor. 9. Peripheral arterial disease status post amputation. 10. Sacral decubitus stage II. Continue current wound care, offloading. Further recommendations based on clinical course. Plan of care discussed with Dr. Miramontes. Problems: Subjective 24 Hr Interval Summary Free Text/Dictation Patient is an episode of hypertension, currently normotensive, sinus rhythm on telemetry, continues on vent support, tolerates G-tube feeding well. Exam/Review of Systems Vital Signs Vitals Vital Signs Date Time Temp Pulse Resp B/P Pulse Ox O2 Delivery O2 Flow Rate FiO2 08/28/16 17:10 70 20 96 30 08/28/16 16:00 97.9 173/77 08/28/16 08:00 Mechanical Ventilator Intake and Output 08/27/16 08/27/16 08/28/16 15:00 23:00 07:00 Intake Total 560 ml 610 ml Balance 560 ml 610 ml Exam GENERAL: Well-developed, well-nourished male, currently on vent support. HEENT: Head is atraumatic, normocephalic. PERRLA. NECK: Supple. Tracheostomy at the base of the neck. LUNGS: Slightly diminished at the bases. Clear in the upper lobes. HEART: Normal S1, S2. No murmurs, gallops, clicks, rubs noted. ABDOMEN: Protuberant, soft, nondistended, nontender. G-tube in place. EXTREMITIES: The patient is status post left BKA. Right lower extremity with mild edema. The patient has a left upper extremity arteriovenous fistula with palpable thrill and audible bruit. SKIN: No rash, petechiae noted. NEUROLOGIC: The patient is awake, alert. Results Result Diagram: 08/28/16 0650 08/28/16 0650 Results 24 hrs Laboratory Tests Test 08/27/16 20:28 08/28/16 01:10 08/28/16 05:53 08/28/16 06:50 Bedside Glucose 169 148 155 Anion Gap 16 Basophils # 0.0 Basophils % 0.3 Blood Morphology Comment Blood Urea Nitrogen 67 H Calcium Level 7.4 L Carbon Dioxide Level 26 Chloride Level 96 L Creatinine 3.51 H Eosinophils # 0.1 Eosinophils % 1.2 Glucose Level 141 Hematocrit 26.2 L Hemoglobin 8.9 L Lymphocytes # 0.8 Lymphocytes % 12.3 L Mean Corpuscular Hemoglobin 32.8 Mean Corpuscular Hemoglobin Concent 33.9 Mean Corpuscular Volume 96.7 Mean Platelet Volume 8.2 Monocytes # 0.4 Monocytes % 6.8 Neutrophils # 5.0 Neutrophils % 79.4 H Nucleated Red Blood Cells # 0.0 Nucleated Red Blood Cells % 0.0 Platelet Count 78 L Potassium Level 3.2 L Red Blood Count 2.71 L Red Cell Distribution Width 18.0 H Sodium Level 135 White Blood Count 6.3 Test 08/28/16 08:09 08/28/16 16:34 Bedside Glucose 187 203 Medications Medications Current Medications Fluticasone Propionate (Flonase 0.05% Nasal) 1 spray BID NASAL Last administered on 08/28/16 09:49; Admin Dose 1 SPRAY; Start 07/26/16 at 10:00 Epoetin [place] (Epogen (Esrd)) 10,000 units MoWeFr@17 SC Last administered on 08/27 17:48; Admin Dose 10,000 UNITS; Start 07/27/16 at 17:00; Status Future hold Hydralazine HCl (Apresoline) 10 mg Q6H PRN IV ELEVATED BLOOD PRESSURE Last administered on 08/28/16 16:35; Admin Dose 10 MG; Start 07/29/16 at 13:00 Acetaminophen (Tylenol Tab) 650 mg Q6H PRN GTB PAIN1-3/FEVER ABOVE 100 Last administered on 08/12/16at 06:07; Admin Dose 650 MG; Start 08/02/16 at 15:00 Atorvastatin Calcium (Lipitor) 40 mg HS GTB Last administered on 08/27/16 21:00 ; Admin Dose 40 MG; Start 08/02/16 at 21:00 Carvedilol (Coreg) 6.25 mg BID GTB Last administered on 08/27/16 21:01; Admin Dose 6.25 MG; Start 08/02/16 at 09:00; Status Future hold Duloxetine HCl (Cymbalta) 90 mg DAILY GTB Last administered on 08/28/16 09:48 ; Admin Dose 90 MG; Start 08/02/16 at 09:00 Guaifenesin (Robitussin Liquid Cup) 100 mg Q4 PRN GTB COUGH; Start 08/02/16 at 09:00 Acetaminophen/ Hydrocodone Bitart ([place] (5/325)) 1 tab Q4 PRN GTB WSOB Last administered on 08/24/16 21:04; Admin Dose 1 TAB; Start 08/02/16 at 09:00 Lactobacillus Acidoph/Bulgaricus (Floranex) 1 tab DAILY GTB Last administered on 08/28/16 09:48; Admin Dose 1 TAB; Start 08/02/16 at 09:00 Lorazepam (Ativan) 1 mg Q6H PRN GTB ANXIETY Last administered on 08/18/16at 10: 45; Admin Dose 1 MG; Start 08/02/16 at 09:00 Multivit/Ca Carb/ B Cmplx/FA/Prenat (Cheryl-Darcie) 1 tab DAILY GTB Last administered on 08/28/16 09:49; Admin Dose 1 TAB; Start 08/02/16 at 09:00 Aspirin (Aspirin) 81 mg DAILY GTB Last administered on 08/28/16 09:48; Admin Dose 81 MG; Start 08/02/16 at 09:00 Lansoprazole (Prevacid) 30 mg DAILY@06 GTB Last administered on 08/28/16 06:00 ; Admin Dose 30 MG; Start 08/02/16 at 10:00 Sildenafil Citrate (Revatio) 20 mg BID PO Last administered on 08/27/16 21:08; Admin Dose 20 MG; Start 08/08/16 at 21:00; Status Future hold Lorazepam (Ativan) 0.5 mg Q4 PRN IV ANXIETY Last administered on 08/24/16 04:04 ; Admin Dose 0.5 MG; Start 08/09/16 at 00:00 Methylprednisolone Sodium Succinate (Solu-Medrol) 20 mg DAILY IV Last administered on 08/28/16 09:48; Admin Dose 20 MG; Start 08/10/16 at 09:00 Miscellaneous Information 1 ea NOTE XX ; Start 08/11/16 at 12:00 Glucose (Glutose) 15 gm Q15M PRN PO DECREASED GLUCOSE; Start 08/11/16 at 12:00 Glucose (Glutose) 22.5 gm Q15M PRN PO DECREASED GLUCOSE; Start 08/11/16 at 12: 00 Dextrose (D50w Syringe) 25 ml Q15M PRN IV DECREASED GLUCOSE Last administered on 08/24/16 12:54; Admin Dose 25 ML; Start 08/11/16 at 12:00 Dextrose (D50w Syringe) 50 ml Q15M PRN IV DECREASED GLUCOSE; Start 08/11/16 at 12:00 Glucagon (Glucagen) 1 mg Q15M PRN IM DECREASED GLUCOSE; Start 08/11/16 at 12: 00 Glucose (Glutose) 15 gm Q15M PRN BUCCAL DECREASED GLUCOSE; Start 08/11/16 at 12:00 Insulin Aspart (Novolog Insulin Pen) NOVOLOG *MODERATE* ALGORI... Q4 SC Last administered on 08/28/16 16:49; Admin Dose 4 UNIT; Start 08/11/16 at 17:00 IV Flush (NS 10 ml) 10 ml PRN PRN IV IV PROTOCOL; Start 08/13/16 at 18:00 Collagenase (Santyl) 1 applic DAILY@22 TOP Last administered on 08/27/16 21:10 ; Admin Dose 1 APPLIC; Start 08/15/16 at 22:00 Insulin Glargine (Lantus) 25 unit QAM SC Last administered on 08/28/16 10:01; Admin Dose 25 UNIT; Start 08/18/16 at 09:00 Acyclovir (Zovirax) 200 mg BID GTB Last administered on 08/28/16 09:48; Admin Dose 200 MG; Start 08/25/16 at 21:00; Stop 08/30/16 at 20:59 MARY DOMINGUEZ Aug 28, 2016 17:28
--- NOTE | 2016-08-28 21:51 | CONS ---
Date/Time of Note Date/Time of Note DATE: 08/28/16 TIME: 21:49 Assessment/Plan Assessment/Plan Additional Assessment/Plan Respiratory failure status post intubation Sepsis Minimally elevated troponin DVT Diastolic congestive heart failure End-stage renal disease on hemodialysis CAD with history of PCI Diabetes Peripheral arterial disease with history of amputation Pulmonary hypertension -Blood pressure trend overall elevated, we'll restart Coreg, potassium supplementation has already been ordered. Fluid management via hemodialysis as per our nephrology colleagues. Consultation Date/Type/Reason Admit Date/Time Jul 26, 2016 at 01:55 Type of Consultation: cv Referring Provider: GRACIE KATHLEEN 24 HR Interval Summary Free Text/Dictation Patient seen and examined Exam/Review of Systems Vital Signs Vitals Vital Signs Date Time Temp Pulse Resp B/P Pulse Ox O2 Delivery O2 Flow Rate FiO2 08/28/16 20:48 97.4 67 20 170/74 98 08/28/16 20:00 30 08/28/16 08:00 Mechanical Ventilator Intake and Output 08/27/16 08/27/16 08/28/16 14:59 22:59 06:59 Intake Total 560 ml 610 ml Balance 560 ml 610 ml Exam Sedated, no apparent distress Head: normocephalic Neck: supple Respiratory: other (course breath sounds bilaterally, no wheezing) Cardiovascular: other (S1 and S2 heard), regular rate and rhythm Gastrointestinal: bowel sounds, non-tender, soft Extremities: edema Results Result Diagram: 08/28/16 0650 08/28/16 0650 Results 24 hrs Laboratory Tests Test 08/28/16 01:10 08/28/16 05:53 08/28/16 06:50 08/28/16 08:09 Bedside Glucose 148 155 187 Anion Gap 16 Basophils # 0.0 Basophils % 0.3 Blood Morphology Comment Blood Urea Nitrogen 67 H Calcium Level 7.4 L Carbon Dioxide Level 26 Chloride Level 96 L Creatinine 3.51 H Eosinophils # 0.1 Eosinophils % 1.2 Glucose Level 141 Hematocrit 26.2 L Hemoglobin 8.9 L Lymphocytes # 0.8 Lymphocytes % 12.3 L Mean Corpuscular Hemoglobin 32.8 Mean Corpuscular Hemoglobin Concent 33.9 Mean Corpuscular Volume 96.7 Mean Platelet Volume 8.2 Monocytes # 0.4 Monocytes % 6.8 Neutrophils # 5.0 Neutrophils % 79.4 H Nucleated Red Blood Cells # 0.0 Nucleated Red Blood Cells % 0.0 Platelet Count 78 L Potassium Level 3.2 L Red Blood Count 2.71 L Red Cell Distribution Width 18.0 H Sodium Level 135 White Blood Count 6.3 Test 08/28/16 16:34 Bedside Glucose 203 Medications Medications Current Medications Fluticasone Propionate (Flonase 0.05% Nasal) 1 spray BID NASAL Last administered on 08/28/16 09:49; Admin Dose 1 SPRAY; Start 07/26/16 at 10:00 Epoetin [place] (Epogen (Esrd)) 10,000 units MoWeFr@17 SC Last administered on 08/27 17:48; Admin Dose 10,000 UNITS; Start 07/27/16 at 17:00; Status Future hold Hydralazine HCl (Apresoline) 10 mg Q6H PRN IV ELEVATED BLOOD PRESSURE Last administered on 08/28/16 16:35; Admin Dose 10 MG; Start 07/29/16 at 13:00 Acetaminophen (Tylenol Tab) 650 mg Q6H PRN GTB PAIN1-3/FEVER ABOVE 100 Last administered on 08/12/16at 06:07; Admin Dose 650 MG; Start 08/02/16 at 15:00 Atorvastatin Calcium (Lipitor) 40 mg HS GTB Last administered on 08/27/16 21:00 ; Admin Dose 40 MG; Start 08/02/16 at 21:00 Carvedilol (Coreg) 6.25 mg BID GTB Last administered on 08/27/16 21:01; Admin Dose 6.25 MG; Start 08/02/16 at 09:00; Status Future hold Duloxetine HCl (Cymbalta) 90 mg DAILY GTB Last administered on 08/28/16 09:48 ; Admin Dose 90 MG; Start 08/02/16 at 09:00 Guaifenesin (Robitussin Liquid Cup) 100 mg Q4 PRN GTB COUGH; Start 08/02/16 at 09:00 Acetaminophen/ Hydrocodone Bitart ([place] (5/325)) 1 tab Q4 PRN GTB WSOB Last administered on 08/24/16 21:04; Admin Dose 1 TAB; Start 08/02/16 at 09:00 Lactobacillus Acidoph/Bulgaricus (Floranex) 1 tab DAILY GTB Last administered on 1/10/17at 09:48; Admin Dose 1 TAB; Start 08/02/16 at 09:00 Lorazepam (Ativan) 1 mg Q6H PRN GTB ANXIETY Last administered on 08/18/16at 10: 45; Admin Dose 1 MG; Start 08/02/16 at 09:00 Multivit/Ca Carb/ B Cmplx/FA/Prenat (Cheryl-Darcie) 1 tab DAILY GTB Last administered on 08/28/16 09:49; Admin Dose 1 TAB; Start 08/02/16 at 09:00 Aspirin (Aspirin) 81 mg DAILY GTB Last administered on 08/28/16 09:48; Admin Dose 81 MG; Start 08/02/16 at 09:00 Lansoprazole (Prevacid) 30 mg DAILY@06 GTB Last administered on 08/28/16 06:00 ; Admin Dose 30 MG; Start 08/02/16 at 10:00 Sildenafil Citrate (Revatio) 20 mg BID PO Last administered on 08/27/16 21:08; Admin Dose 20 MG; Start 08/08/16 at 21:00; Status Future hold Lorazepam (Ativan) 0.5 mg Q4 PRN IV ANXIETY Last administered on 08/24/16 04:04 ; Admin Dose 0.5 MG; Start 08/09/16 at 00:00 Methylprednisolone Sodium Succinate (Solu-Medrol) 20 mg DAILY IV Last administered on 08/28/16 09:48; Admin Dose 20 MG; Start 08/10/16 at 09:00 Miscellaneous Information 1 ea NOTE XX ; Start 08/11/16 at 12:00 Glucose (Glutose) 15 gm Q15M PRN PO DECREASED GLUCOSE; Start 08/11/16 at 12:00 Glucose (Glutose) 22.5 gm Q15M PRN PO DECREASED GLUCOSE; Start 08/11/16 at 12: 00 Dextrose (D50w Syringe) 25 ml Q15M PRN IV DECREASED GLUCOSE Last administered on 08/24/16 12:54; Admin Dose 25 ML; Start 08/11/16 at 12:00 Dextrose (D50w Syringe) 50 ml Q15M PRN IV DECREASED GLUCOSE; Start 08/11/16 at 12:00 Glucagon (Glucagen) 1 mg Q15M PRN IM DECREASED GLUCOSE; Start 08/11/16 at 12: 00 Glucose (Glutose) 15 gm Q15M PRN BUCCAL DECREASED GLUCOSE; Start 08/11/16 at 12:00 Insulin Aspart (Novolog Insulin Pen) NOVOLOG *MODERATE* ALGORI... Q4 SC Last administered on 08/28/16 16:49; Admin Dose 4 UNIT; Start 08/11/16 at 17:00 IV Flush (NS 10 ml) 10 ml PRN PRN IV IV PROTOCOL; Start 08/13/16 at 18:00 Collagenase (Santyl) 1 applic DAILY@22 TOP Last administered on 08/27/16 21:10 ; Admin Dose 1 APPLIC; Start 08/15/16 at 22:00 Insulin Glargine (Lantus) 25 unit QAM SC Last administered on 08/28/16 10:01; Admin Dose 25 UNIT; Start 08/18/16 at 09:00 Acyclovir (Zovirax) 200 mg BID GTB Last administered on 08/28/16 09:48; Admin Dose 200 MG; Start 08/25/16 at 21:00; Stop 08/30/16 at 20:59 Solo Leon DO Aug 28, 2016 21:50
[2016-08-28] MEDS: ATORVASTATIN 40 MG TAB GTB SCH (22:23)
[2016-08-28] MEDS: COLLAGENASE 30 GM TUBE TOP SCH (22:28)
[2016-08-29] VITALS (26 sets, daily range): BP systolic 132–181; BP diastolic 62–85; PULSE 65–73; RESP 16–26
[2016-08-29] MEDS: INSULIN ASPART [NOVOLOG] 3 ML PEN SC SCH ×6 (00:58→22:56)
[2016-08-29] MEDS: IPRATROPIUM (HFA) 12.9 GM INHALER INH SCH ×4 (01:29→20:33)
[2016-08-29] MEDS: ALBUTEROL HFA 8 GM INHALER INH SCH ×4 (01:29→20:33)
[2016-08-29] MEDS: LANSOPRAZOLE 30 MG CAP GTB SCH (05:59)
[2016-08-29 06:32] LABS: HEMATOCRIT 25.3 % (42.0-52.0); HEMOGLOBIN 8.5 g/dl (14.0-18.0); LYMPHOCYTES # 0.3 10^3/ul (0.8-2.9); LYMPHOCYTES % 6.4 % (15.0-51.0); MEAN CORPUSCULAR HEMOGLOBIN 33.1 pg (29.0-33.0); MEAN CORPUSCULAR HGB CONC 33.7 g/dl (32.0-37.0); MEAN CORPUSCULAR VOLUME 98.2 fl (82.0-101.0); MEAN PLATELET VOLUME 7.9 fl (7.4-10.4); MONOCYTE # 0.3 10^3/ul (0.3-0.9); MONOCYTES % 5.2 % (0.0-11.0); NEUTROPHIL # 4.7 10^3/ul (1.6-7.5); NEUTROPHILS % 88.4 % (39.0-77.0); PLATELET COUNT 77 10^3/UL (140-440); RED BLOOD COUNT 2.57 10^6/ul (4.70-6.10); RED CELL DISTRIBUTION WIDTH 18.3 % (11.5-14.5); UNCORRECTED WBC 5.4 10^3/ul (4.8-10.8); WHITE BLOOD COUNT 5.4 10^3/ul (4.8-10.8)
[2016-08-29 06:43] LABS: POTASSIUM 3.9 mmol/L (3.5-5.1)
[2016-08-29 06:46] LABS: CREATININE 2.22 mg/dl (0.61-1.24)
[2016-08-29 06:47] LABS: CALCIUM 7.8 mg/dl (8.4-10.2); CONDITION 1; LH ANALYZER COMMENTS 1
--- NOTE | 2016-08-29 08:48 | CONS ---
Date/Time of Note Date/Time of Note DATE: 08/29/16 TIME: 08:47 Assessment/Plan Assessment/Plan Additional Assessment/Plan 1. Status quo, respiratory failure 2. CKD, will plan on HD tomm 3. Known CAD, stable 4. Peripheral vasc dz, unchanged Consultation Date/Type/Reason Admit Date/Time Jul 26, 2016 at 01:55 Type of Consultation: cv Referring Provider: GRACIE KATHLEEN 24 HR Interval Summary Constitutional: other (Trach in place, on vent, lethargic) Exam/Review of Systems Vital Signs Vitals Vital Signs Date Time Temp Pulse Resp B/P Pulse Ox O2 Delivery O2 Flow Rate FiO2 08/29/16 08:31 68 08/29/16 07:33 97.8 22 176/73 99 08/29/16 07:30 40 08/29/16 04:30 Mechanical Ventilator Intake and Output 08/28/16 08/28/16 08/29/16 15:00 23:00 07:00 Intake Total 800 ml 610 ml 560 ml Output Total 2800 ml 3000 ml 150 ml Balance -2000 ml -2390 ml 410 ml Exam Neck: No jvd Respiratory: diminished breath sounds Cardiovascular: regular rate and rhythm Gastrointestinal: soft Extremities: No edema Results Result Diagram: 08/29/16 0555 08/29/16 0555 Results 24 hrs Laboratory Tests Test 08/28/16 13:02 08/28/16 16:34 08/28/16 22:27 08/29/16 00:39 Bedside Glucose 184 203 172 177 Test 08/29/16 05:55 08/29/16 05:58 08/29/16 07:58 Anion Gap 15 Basophils # 0.0 Basophils % 0.0 Blood Morphology Comment Blood Urea Nitrogen 40 #H Calcium Level 7.8 L Carbon Dioxide Level 29 Chloride Level 98 Creatinine 2.22 #H Eosinophils # 0.0 Eosinophils % 0.0 Glucose Level 212 Hematocrit 25.3 L Hemoglobin 8.5 L Lymphocytes # 0.3 L Lymphocytes % 6.4 L Mean Corpuscular Hemoglobin 33.1 H Mean Corpuscular Hemoglobin Concent 33.7 Mean Corpuscular Volume 98.2 Mean Platelet Volume 7.9 Monocytes # 0.3 Monocytes % 5.2 Neutrophils # 4.7 Neutrophils % 88.4 H Nucleated Red Blood Cells # 0.0 Nucleated Red Blood Cells % 0.0 Platelet Count 77 L Potassium Level 3.9 Red Blood Count 2.57 L Red Cell Distribution Width 18.3 H Sodium Level 138 White Blood Count 5.4 Bedside Glucose 219 222 H Medications Medications Current Medications Fluticasone Propionate (Flonase 0.05% Nasal) 1 spray BID NASAL Last administered on 08/28/16 22:24; Admin Dose 1 SPRAY; Start 07/26/16 at 10:00 Epoetin [place] (Epogen (Esrd)) 10,000 units MoWeFr@17 SC Last administered on 08/27 17:48; Admin Dose 10,000 UNITS; Start 07/27/16 at 17:00; Status Future hold Hydralazine HCl (Apresoline) 10 mg Q6H PRN IV ELEVATED BLOOD PRESSURE Last administered on 08/28/16 16:35; Admin Dose 10 MG; Start 07/29/16 at 13:00 Acetaminophen (Tylenol Tab) 650 mg Q6H PRN GTB PAIN1-3/FEVER ABOVE 100 Last administered on 08/12/16at 06:07; Admin Dose 650 MG; Start 08/02/16 at 15:00 Atorvastatin Calcium (Lipitor) 40 mg HS GTB Last administered on 08/28/16 22: 23; Admin Dose 40 MG; Start 08/02/16 at 21:00 Carvedilol (Coreg) 6.25 mg BID GTB Last administered on 08/28/16 22:22; Admin Dose 6.25 MG; Start 08/02/16 at 09:00; Status Future hold Duloxetine HCl (Cymbalta) 90 mg DAILY GTB Last administered on 08/28/16 09:48 ; Admin Dose 90 MG; Start 08/02/16 at 09:00 Guaifenesin (Robitussin Liquid Cup) 100 mg Q4 PRN GTB COUGH; Start 08/02/16 at 09:00 Acetaminophen/ Hydrocodone Bitart ([place] (5/325)) 1 tab Q4 PRN GTB [facility] Last administered on 08/24/16 21:04; Admin Dose 1 TAB; Start 08/02/16 at 09:00 Lactobacillus Acidoph/Bulgaricus (Floranex) 1 tab DAILY GTB Last administered on 08/28/16 09:48; Admin Dose 1 TAB; Start 08/02/16 at 09:00 Lorazepam (Ativan) 1 mg Q6H PRN GTB ANXIETY Last administered on 08/18/16at 10: 45; Admin Dose 1 MG; Start 08/02/16 at 09:00 Multivit/Ca Carb/ B Cmplx/FA/Prenat (Cheryl-Darcie) 1 tab DAILY GTB Last administered on 08/28/16 09:49; Admin Dose 1 TAB; Start 08/02/16 at 09:00 Aspirin (Aspirin) 81 mg DAILY GTB Last administered on 08/28/16 09:48; Admin Dose 81 MG; Start 08/02/16 at 09:00 Lansoprazole (Prevacid) 30 mg DAILY@06 GTB Last administered on 08/29/16 05:59 ; Admin Dose 30 MG; Start 08/02/16 at 10:00 Sildenafil Citrate (Revatio) 20 mg BID PO Last administered on 08/28/16 22:22 ; Admin Dose 20 MG; Start 08/08/16 at 21:00; Status Future hold Lorazepam (Ativan) 0.5 mg Q4 PRN IV ANXIETY Last administered on 08/24/16 04:04 ; Admin Dose 0.5 MG; Start 08/09/16 at 00:00 Methylprednisolone Sodium Succinate (Solu-Medrol) 20 mg DAILY IV Last administered on 08/28/16 09:48; Admin Dose 20 MG; Start 08/10/16 at 09:00 Miscellaneous Information 1 ea NOTE XX ; Start 08/11/16 at 12:00 Glucose (Glutose) 15 gm Q15M PRN PO DECREASED GLUCOSE; Start 08/11/16 at 12:00 Glucose (Glutose) 22.5 gm Q15M PRN PO DECREASED GLUCOSE; Start 08/11/16 at 12: 00 Dextrose (D50w Syringe) 25 ml Q15M PRN IV DECREASED GLUCOSE Last administered on 08/24/16 12:54; Admin Dose 25 ML; Start 08/11/16 at 12:00 Dextrose (D50w Syringe) 50 ml Q15M PRN IV DECREASED GLUCOSE; Start 08/11/16 at 12:00 Glucagon (Glucagen) 1 mg Q15M PRN IM DECREASED GLUCOSE; Start 08/11/16 at 12: 00 Glucose (Glutose) 15 gm Q15M PRN BUCCAL DECREASED GLUCOSE; Start 08/11/16 at 12:00 Insulin Aspart (Novolog Insulin Pen) NOVOLOG *MODERATE* ALGORI... Q4 SC Last administered on 08/29/16 06:10; Admin Dose 4 UNIT; Start 08/11/16 at 17:00 IV Flush (NS 10 ml) 10 ml PRN PRN IV IV PROTOCOL Last administered on 05:59; Admin Dose 10 ML; Start 08/13/16 at 18:00 Collagenase (Santyl) 1 applic DAILY@22 TOP Last administered on 08/28/16 22:28 ; Admin Dose 1 APPLIC; Start 08/15/16 at 22:00 Insulin Glargine (Lantus) 25 unit QAM SC Last administered on 08/28/16 10:01; Admin Dose 25 UNIT; Start 08/18/16 at 09:00 Acyclovir (Zovirax) 200 mg BID GTB Last administered on 08/28/16 22:23; Admin Dose 200 MG; Start 08/25/16 at 21:00; Stop 08/30/16 at 20:59 JESSICA ROSARIO MD Aug 29, 2016 08:48
[2016-08-29] MEDS: METHYLPREDNISOLONE 40 MG INJ IV SCH (09:08)
[2016-08-29] MEDS: ASPIRIN 81 MG TAB GTB SCH (09:09)
[2016-08-29] MEDS: LACTOBACILLUS CHEW TAB GTB SCH (09:09)
[2016-08-29] MEDS: MULTIVIT/CA CARB/B CMPLX/FA TAB GTB SCH (09:09)
[2016-08-29] MEDS: DULOXETINE 30 MG CAP DR GTB SCH (09:09)
[2016-08-29] MEDS: SILDENAFIL 20 MG TAB PO SCH ×2 (09:10→22:51)
[2016-08-29] MEDS: ACYCLOVIR 200 MG CAP GTB SCH ×2 (09:10→22:52)
[2016-08-29] MEDS: HYDROCODONE/APAP (5/325) TAB GTB PRN ×3 (09:11→22:59)
[2016-08-29] MEDS: INSULIN GLARGINE [LANtus] 3 ML PEN SC SCH (09:14)
[2016-08-29] MEDS: FLUTICASONE 0.05% 16 GM NAS SPRAY NASAL SCH ×2 (09:14→22:52)
--- NOTE | 2016-08-29 09:17 | CONS ---
Date/Time of Note Date/Time of Note DATE: 08/29/16 TIME: 09:16 Assessment/Plan Assessment/Plan Chief Complaint/Hosp Course assessment/impression: - VDRF s/p trach - h/o aspiration PNA: respiratory Cx on 08/10 grew MSSA and C. Albicans - h/o septic shock - h/o C diff colitis, last C diff test on 08/24/2016 negative - h/o intermittent fever - h/o RUE cellulitis complicated by axillary/cephalic venous thrombosis - toxic metabolic encephalopathy - ESRD on HD - Diastolic CHF, CAD with Hx PCI, paroxysmal atrial tachycardia - Old partial DVT of the right internal jugular vein. - PAD s/p BKA - underlying Parkinson's disease - Stage 2 coccyx decub - PCN allergic - G tube dependent - thrombocytopenia - borderline positive [id number] level. 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 - s/p imipenem (08/05- 08/14), IV vanco (07/29-08/13), aztreonam (07/29-08/05), cefazolin (08/14-08/23), caspo (08/11-08/23) recommendations: - complete 5 day course of renally dosed acyclovir for HSV infection on the face (08/25/2016-08/30/2016) Problems: Consultation Date/Type/Reason Admit Date/Time Jul 26, 2016 at 01:55 Initial Consult Date 07/29/16 Type of Consultation: ID Referring Provider: GRCAIE KATHLEEN 24 HR Interval Summary Subjective hx not possible: pt non-verbal Exam/Review of Systems Vital Signs Vitals Vital Signs Date Time Temp Pulse Resp B/P Pulse Ox O2 Delivery O2 Flow Rate FiO2 08/29/16 08:31 68 08/29/16 07:33 97.8 22 176/73 99 08/29/16 07:30 40 08/29/16 04:30 Mechanical Ventilator Intake and Output 08/28/16 08/28/16 08/29/16 15:00 23:00 07:00 Intake Total 800 ml 610 ml 560 ml Output Total 2800 ml 3000 ml 150 ml Balance -2000 ml -2390 ml 410 ml Exam Constitutional: frail, non-verbal Psych: confusion Head: atraumatic, normocephalic Eyes: nl conjunctiva, nl lids ENMT: nl external ears & nose Neck: other (trach) Respiratory: diminished breath sounds Cardiovascular: nl pulses, regular rate and rhythm Gastrointestinal: non-tender, other (GT), soft Musculoskeletal: other (s/p L BKA) Extremities: edema Neurological: confused Skin: other (HSV lesions are dry and crusted) Results Result Diagram: 08/29/16 0555 08/29/16 0555 Results 24 hrs Laboratory Tests Test 08/28/16 13:02 08/28/16 16:34 08/28/16 22:27 08/29/16 00:39 Bedside Glucose 184 203 172 177 Test 08/29/16 05:55 08/29/16 05:58 08/29/16 07:58 Anion Gap 15 Basophils # 0.0 Basophils % 0.0 Blood Morphology Comment Blood Urea Nitrogen 40 #H Calcium Level 7.8 L Carbon Dioxide Level 29 Chloride Level 98 Creatinine 2.22 #H Eosinophils # 0.0 Eosinophils % 0.0 Glucose Level 212 Hematocrit 25.3 L Hemoglobin 8.5 L Lymphocytes # 0.3 L Lymphocytes % 6.4 L Mean Corpuscular Hemoglobin 33.1 H Mean Corpuscular Hemoglobin Concent 33.7 Mean Corpuscular Volume 98.2 Mean Platelet Volume 7.9 Monocytes # 0.3 Monocytes % 5.2 Neutrophils # 4.7 Neutrophils % 88.4 H Nucleated Red Blood Cells # 0.0 Nucleated Red Blood Cells % 0.0 Platelet Count 77 L Potassium Level 3.9 Red Blood Count 2.57 L Red Cell Distribution Width 18.3 H Sodium Level 138 White Blood Count 5.4 Bedside Glucose 219 222 H Medications Medications Current Medications Fluticasone Propionate (Flonase 0.05% Nasal) 1 spray BID NASAL Last administered on 08/29/16 09:14; Admin Dose 1 SPRAY; Start 07/26/16 at 10:00 Epoetin [place] (Epogen (Esrd)) 10,000 units MoWeFr@17 SC Last administered on 08/27 17:48; Admin Dose 10,000 UNITS; Start 07/27/16 at 17:00; Status Future hold Hydralazine HCl (Apresoline) 10 mg Q6H PRN IV ELEVATED BLOOD PRESSURE Last administered on 08/28/16 16:35; Admin Dose 10 MG; Start 07/29/16 at 13:00 Acetaminophen (Tylenol Tab) 650 mg Q6H PRN GTB PAIN1-3/FEVER ABOVE 100 Last administered on 08/12/16at 06:07; Admin Dose 650 MG; Start 08/02/16 at 15:00 Atorvastatin Calcium (Lipitor) 40 mg HS GTB Last administered on 08/28/16 22: 23; Admin Dose 40 MG; Start 08/02/16 at 21:00 Carvedilol (Coreg) 6.25 mg BID GTB Last administered on 08/29/16 09:10; Admin Dose 6.25 MG; Start 08/02/16 at 09:00; Status Future hold Duloxetine HCl (Cymbalta) 90 mg DAILY GTB Last administered on 08/29/16 09:09 ; Admin Dose 90 MG; Start 08/02/16 at 09:00 Guaifenesin (Robitussin Liquid Cup) 100 mg Q4 PRN GTB COUGH; Start 08/02/16 at 09:00 Acetaminophen/ Hydrocodone Bitart ([place] (5/325)) 1 tab Q4 PRN GTB [facility]SO[facility] Last administered on 08/29/16 09:11; Admin Dose 1 TAB; Start 08/02/16 at 09:00 Lactobacillus Acidoph/Bulgaricus (Floranex) 1 tab DAILY GTB Last administered on 08/29/16 09:09; Admin Dose 1 TAB; Start 08/02/16 at 09:00 Lorazepam (Ativan) 1 mg Q6H PRN GTB ANXIETY Last administered on 08/18/16at 10: 45; Admin Dose 1 MG; Start 08/02/16 at 09:00 Multivit/Ca Carb/ B Cmplx/FA/Prenat (Cheryl-Darcie) 1 tab DAILY GTB Last administered on 08/29/16 09:09; Admin Dose 1 TAB; Start 08/02/16 at 09:00 Aspirin (Aspirin) 81 mg DAILY GTB Last administered on 08/29/16 09:09; Admin Dose 81 MG; Start 08/02/16 at 09:00 Lansoprazole (Prevacid) 30 mg DAILY@06 GTB Last administered on 08/29/16 05:59 ; Admin Dose 30 MG; Start 08/02/16 at 10:00 Sildenafil Citrate (Revatio) 20 mg BID PO Last administered on 08/29/16 09:10 ; Admin Dose 20 MG; Start 08/08/16 at 21:00; Status Future hold Lorazepam (Ativan) 0.5 mg Q4 PRN IV ANXIETY Last administered on 08/24/16 04:04 ; Admin Dose 0.5 MG; Start 08/09/16 at 00:00 Methylprednisolone Sodium Succinate (Solu-Medrol) 20 mg DAILY IV Last administered on 08/29/16 09:08; Admin Dose 20 MG; Start 08/10/16 at 09:00 Miscellaneous Information 1 ea NOTE XX ; Start 08/11/16 at 12:00 Glucose (Glutose) 15 gm Q15M PRN PO DECREASED GLUCOSE; Start 08/11/16 at 12:00 Glucose (Glutose) 22.5 gm Q15M PRN PO DECREASED GLUCOSE; Start 08/11/16 at 12: 00 Dextrose (D50w Syringe) 25 ml Q15M PRN IV DECREASED GLUCOSE Last administered on 08/24/16 12:54; Admin Dose 25 ML; Start 08/11/16 at 12:00 Dextrose (D50w Syringe) 50 ml Q15M PRN IV DECREASED GLUCOSE; Start 08/11/16 at 12:00 Glucagon (Glucagen) 1 mg Q15M PRN IM DECREASED GLUCOSE; Start 08/11/16 at 12: 00 Glucose (Glutose) 15 gm Q15M PRN BUCCAL DECREASED GLUCOSE; Start 08/11/16 at 12:00 Insulin Aspart (Novolog Insulin Pen) NOVOLOG *MODERATE* ALGORI... Q4 SC Last administered on 08/29/16 09:13; Admin Dose 6 UNIT; Start 08/11/16 at 17:00 IV Flush (NS 10 ml) 10 ml PRN PRN IV IV PROTOCOL Last administered on 05:59; Admin Dose 10 ML; Start 08/13/16 at 18:00 Collagenase (Santyl) 1 applic DAILY@22 TOP Last administered on 08/28/16 22:28 ; Admin Dose 1 APPLIC; Start 08/15/16 at 22:00 Insulin Glargine (Lantus) 25 unit QAM SC Last administered on 08/29/16 09:14; Admin Dose 25 UNIT; Start 08/18/16 at 09:00 Acyclovir (Zovirax) 200 mg BID GTB Last administered on 08/29/16t 09:10; Admin Dose 200 MG; Start 08/25/16 at 21:00; Stop 08/30/16 at 20:59 SADIA LONDON M.D. Aug 29, 2016 09:17
--- NOTE | 2016-08-29 10:38 | PN ---
Date/Time of Note Date/Time of Note DATE: 08/29/16 TIME: 10:36 Assessment/Plan Lines/Catheters IV Catheter Type (from Nrs): PICC Line Vicente in Place (from Nrs): No Assessment/Plan Chief Complaint/Hosp Course IMPRESSION: 1. Respiratory failure. 2. Coagulopathy. 3. Anemia. RECOMMENDATIONS: SP tracheostomy Will continue supp care pulm toilet trach care Discussed with the referring physicians. Problems: Subjective 24 Hr Interval Summary Constitutional: improved Pain Control: mild Exam/Review of Systems Vital Signs Vitals Vital Signs Date Time Temp Pulse Resp B/P Pulse Ox O2 Delivery O2 Flow Rate FiO2 08/29/16 08:31 68 08/29/16 07:33 97.8 22 176/73 99 08/29/16 07:30 40 08/29/16 04:30 Mechanical Ventilator Intake and Output 08/28/16 08/28/16 08/29/16 15:00 23:00 07:00 Intake Total 800 ml 610 ml 560 ml Output Total 2800 ml 3000 ml 150 ml Balance -2000 ml -2390 ml 410 ml Exam Neck: non-tender, supple Respiratory: clear to auscultation, normal air movement Cardiovascular: nl pulses, regular rate and rhythm Gastrointestinal: nl liver, spleen, non-tender, soft Results Result Diagram: 08/29/16 0555 08/29/16 0555 SAUL HUMPHREY MD Aug 29, 2016 10:38
--- NOTE | 2016-08-29 15:38 | CONS ---
Date/Time of Note Date/Time of Note DATE: 08/29/16 TIME: 15:36 Consult Date/Type/Reason Admit Date/Time Jul 26, 2016 at 01:55 Initial Consult Date 07/29/16 Type of Consultation: Pulm Ordering Provider: GRACIE KATHLEEN Subjective Comfortable No changes. Objective Vital Signs Date Time Temp Pulse Resp B/P Pulse Ox O2 Delivery O2 Flow Rate FiO2 08/29/16 15:24 98.3 65 22 166/85 100 08/29/16 15:10 40 08/29/16 04:30 Mechanical Ventilator Intake and Output 08/28/16 08/28/16 08/29/16 15:00 23:00 07:00 Intake Total 800 ml 610 ml 560 ml Output Total 2800 ml 3000 ml 150 ml Balance -2000 ml -2390 ml 410 ml PHYSICAL EXAMINATION: VITAL SIGNS: as above HEENT: Pupils are equal and reactive to light. NECK: Supple, no JVD noted, no cervical adenopathy, no carotid bruits heard. Tracheostomy site clear. LUNGS: Few scattered rhonchi. CARDIOVASCULAR: S1, S2 normal. ABDOMEN: Soft, nontender. Positive bowel sounds. EXTREMITIES: No clubbing or cyanosis noted. NEUROLOGICAL: Encephalopathic. Results/Medications Result Diagram: 08/29/16 0555 08/29/16 0555 Results 24 hrs Laboratory Tests Test 08/28/16 16:34 08/28/16 22:27 08/29/16 00:39 08/29/16 05:55 Bedside Glucose 203 172 177 Anion Gap 15 Basophils # 0.0 Basophils % 0.0 Blood Morphology Comment Blood Urea Nitrogen 40 #H Calcium Level 7.8 L Carbon Dioxide Level 29 Chloride Level 98 Creatinine 2.22 #H Eosinophils # 0.0 Eosinophils % 0.0 Glucose Level 212 Hematocrit 25.3 L Hemoglobin 8.5 L Lymphocytes # 0.3 L Lymphocytes % 6.4 L Mean Corpuscular Hemoglobin 33.1 H Mean Corpuscular Hemoglobin Concent 33.7 Mean Corpuscular Volume 98.2 Mean Platelet Volume 7.9 Monocytes # 0.3 Monocytes % 5.2 Neutrophils # 4.7 Neutrophils % 88.4 H Nucleated Red Blood Cells # 0.0 Nucleated Red Blood Cells % 0.0 Platelet Count 77 L Potassium Level 3.9 Red Blood Count 2.57 L Red Cell Distribution Width 18.3 H Sodium Level 138 White Blood Count 5.4 Test 08/29/16 05:58 08/29/16 07:58 08/29/16 12:20 Bedside Glucose 219 222 H 197 Medications Current Medications Fluticasone Propionate (Flonase 0.05% Nasal) 1 spray BID NASAL Last administered on 08/29/16 09:14; Admin Dose 1 SPRAY; Start 07/26/16 at 10:00 Epoetin [place] (Epogen (Esrd)) 10,000 units MoWeFr@17 SC Last administered on 08/27 17:48; Admin Dose 10,000 UNITS; Start 07/27/16 at 17:00; Status Future hold Hydralazine HCl (Apresoline) 10 mg Q6H PRN IV ELEVATED BLOOD PRESSURE Last administered on 08/28/16 16:35; Admin Dose 10 MG; Start 07/29/16 at 13:00 Acetaminophen (Tylenol Tab) 650 mg Q6H PRN GTB PAIN1-3/FEVER ABOVE 100 Last administered on 08/12/16at 06:07; Admin Dose 650 MG; Start 08/02/16 at 15:00 Atorvastatin Calcium (Lipitor) 40 mg HS GTB Last administered on 08/28/16 22: 23; Admin Dose 40 MG; Start 08/02/16 at 21:00 Carvedilol (Coreg) 6.25 mg BID GTB Last administered on 08/29/16 09:10; Admin Dose 6.25 MG; Start 08/02/16 at 09:00; Status Future hold Duloxetine HCl (Cymbalta) 90 mg DAILY GTB Last administered on 08/29/16 09:09 ; Admin Dose 90 MG; Start 08/02/16 at 09:00 Guaifenesin (Robitussin Liquid Cup) 100 mg Q4 PRN GTB COUGH; Start 08/02/16 at 09:00 Acetaminophen/ Hydrocodone Bitart ([place] (5/325)) 1 tab Q4 PRN GTB WSOB Last administered on 08/29/16 09:11; Admin Dose 1 TAB; Start 08/02/16 at 09:00 Lactobacillus Acidoph/Bulgaricus (Floranex) 1 tab DAILY GTB Last administered on 08/29/16 09:09; Admin Dose 1 TAB; Start 08/02/16 at 09:00 Lorazepam (Ativan) 1 mg Q6H PRN GTB ANXIETY Last administered on 08/18/16at 10: 45; Admin Dose 1 MG; Start 08/02/16 at 09:00 Multivit/Ca Carb/ B Cmplx/FA/Prenat (Cheryl-Darcie) 1 tab DAILY GTB Last administered on 08/29/16 09:09; Admin Dose 1 TAB; Start 08/02/16 at 09:00 Aspirin (Aspirin) 81 mg DAILY GTB Last administered on 08/29/16 09:09; Admin Dose 81 MG; Start 08/02/16 at 09:00 Lansoprazole (Prevacid) 30 mg DAILY@06 GTB Last administered on 08/29/16 05:59 ; Admin Dose 30 MG; Start 08/02/16 at 10:00 Sildenafil Citrate (Revatio) 20 mg BID PO Last administered on 08/29/16 09:10 ; Admin Dose 20 MG; Start 08/08/16 at 21:00; Status Future hold Lorazepam (Ativan) 0.5 mg Q4 PRN IV ANXIETY Last administered on 08/24/16 04:04 ; Admin Dose 0.5 MG; Start 08/09/16 at 00:00 Methylprednisolone Sodium Succinate (Solu-Medrol) 20 mg DAILY IV Last administered on 08/29/16 09:08; Admin Dose 20 MG; Start 08/10/16 at 09:00 Miscellaneous Information 1 ea NOTE XX ; Start 08/11/16 at 12:00 Glucose (Glutose) 15 gm Q15M PRN PO DECREASED GLUCOSE; Start 08/11/16 at 12:00 Glucose (Glutose) 22.5 gm Q15M PRN PO DECREASED GLUCOSE; Start 08/11/16 at 12: 00 Dextrose (D50w Syringe) 25 ml Q15M PRN IV DECREASED GLUCOSE Last administered on 08/24/16 12:54; Admin Dose 25 ML; Start 08/11/16 at 12:00 Dextrose (D50w Syringe) 50 ml Q15M PRN IV DECREASED GLUCOSE; Start 08/11/16 at 12:00 Glucagon (Glucagen) 1 mg Q15M PRN IM DECREASED GLUCOSE; Start 08/11/16 at 12: 00 Glucose (Glutose) 15 gm Q15M PRN BUCCAL DECREASED GLUCOSE; Start 08/11/16 at 12:00 Insulin Aspart (Novolog Insulin Pen) NOVOLOG *MODERATE* ALGORI... Q4 SC Last administered on 08/29/16 12:25; Admin Dose 4 UNIT; Start 08/11/16 at 17:00 IV Flush (NS 10 ml) 10 ml PRN PRN IV IV PROTOCOL Last administered on 05:59; Admin Dose 10 ML; Start 08/13/16 at 18:00 Collagenase (Santyl) 1 applic DAILY@22 TOP Last administered on 08/28/16 22:28 ; Admin Dose 1 APPLIC; Start 08/15/16 at 22:00 Insulin Glargine (Lantus) 25 unit QAM SC Last administered on 08/29/16 09:14; Admin Dose 25 UNIT; Start 08/18/16 at 09:00 Acyclovir (Zovirax) 200 mg BID GTB Last administered on 08/29/16 09:10; Admin Dose 200 MG; Start 08/25/16 at 21:00; Stop 08/30/16 at 20:59 Assessment/Plan Chief Complaint/Hosp Course IMPRESSION: 1. Ventilator-dependent respiratory failure, hypoxemic. 2. End-stage renal disease on hemodialysis. 3. Pulmonary edema. 4. Possible aspiration pneumonia. RECOMMENDATIONS 1. Continue ventilator support. 2. Hemodialysis per nephrology. 3. Antibiotics per ID. 4. Followup labs pending transfer to [place] or [facility] Problems: VALERIE CAMARENA MD, [facility] Aug 29, 2016 15:37
--- NOTE | 2016-08-29 15:44 | PN ---
Date/Time of Note Date/Time of Note DATE: 08/29/16 TIME: 15:38 Assessment/Plan VTE Prophylaxis VTE Prophylaxis Intervention: SCD's Lines/Catheters [facility] PICC Line Central line still needed: Yes Urinary Cath still in place: No Assessment/Plan Chief Complaint/Hosp Course ASSESSMENT AND PLAN: 1. Acute hypoxemic respiratory failure, status post tracheostomy. The patient is followed by Dr. Andrews in pulmonology consultation. 2. Possible pneumonia. Is status post treatment with antibiotics. The patient is followed by Dr. Hammer. 3. End-stage renal disease on hemodialysis. The patient is followed by Dr. Bassett in nephrology consultation. Continue hemodialysis per nephrology. 3. Diastolic congestive heart failure. Continue fluid removal with dialysis. 4. Dysphagia with percutaneous endoscopic gastrostomy placement. Continue to monitor residual. 5. 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 Continue on acyclovir. 6. Diabetes mellitus. Continue Lantus and NovoLog. 7. Pulmonary hypertension. Continue patient on Revatio. 8. Hyperlipidemia. Continue Lipitor. 9. Peripheral arterial disease status post amputation. 10. Sacral decubitus stage II. Continue current wound care, offloading. Further recommendations based on clinical course. Plan of care discussed with Dr. Miramontes. Problems: Subjective 24 Hr Interval Summary Free Text/Dictation Patient tolerates G-tube feeding well, comfortable on vent, no fever. Sinus rhythm on telemetry. Exam/Review of Systems Vital Signs Vitals Vital Signs Date Time Temp Pulse Resp B/P Pulse Ox O2 Delivery O2 Flow Rate FiO2 08/29/16 15:24 98.3 65 22 166/85 100 08/29/16 15:10 40 08/29/16 04:30 Mechanical Ventilator Intake and Output 08/28/16 08/28/16 08/29/16 15:00 23:00 07:00 Intake Total 800 ml 610 ml 560 ml Output Total 2800 ml 3000 ml 150 ml Balance -2000 ml -2390 ml 410 ml Exam GENERAL: Well-developed, well-nourished male, currently on vent support. HEENT: Head is atraumatic, normocephalic. PERRLA. NECK: Supple. Tracheostomy at the base of the neck. LUNGS: Slightly diminished at the bases. Clear in the upper lobes. HEART: Normal S1, S2. No murmurs, gallops, clicks, rubs noted. ABDOMEN: Protuberant, soft, nondistended, nontender. G-tube in place. EXTREMITIES: The patient is status post left BKA. Right lower extremity with mild edema. The patient has a left upper extremity arteriovenous fistula with palpable thrill and audible bruit. SKIN: No rash, petechiae noted. NEUROLOGIC: The patient is awake, alert. Results Result Diagram: 08/29/16 0555 08/29/16 0555 Results 24 hrs Laboratory Tests Test 08/28/16 16:34 08/28/16 22:27 08/29/16 00:39 08/29/16 05:55 Bedside Glucose 203 172 177 Anion Gap 15 Basophils # 0.0 Basophils % 0.0 Blood Morphology Comment Blood Urea Nitrogen 40 #H Calcium Level 7.8 L Carbon Dioxide Level 29 Chloride Level 98 Creatinine 2.22 #H Eosinophils # 0.0 Eosinophils % 0.0 Glucose Level 212 Hematocrit 25.3 L Hemoglobin 8.5 L Lymphocytes # 0.3 L Lymphocytes % 6.4 L Mean Corpuscular Hemoglobin 33.1 H Mean Corpuscular Hemoglobin Concent 33.7 Mean Corpuscular Volume 98.2 Mean Platelet Volume 7.9 Monocytes # 0.3 Monocytes % 5.2 Neutrophils # 4.7 Neutrophils % 88.4 H Nucleated Red Blood Cells # 0.0 Nucleated Red Blood Cells % 0.0 Platelet Count 77 L Potassium Level 3.9 Red Blood Count 2.57 L Red Cell Distribution Width 18.3 H Sodium Level 138 White Blood Count 5.4 Test 08/29/16 05:58 08/29/16 07:58 08/29/16 12:20 Bedside Glucose 219 222 H 197 Medications Medications Current Medications Fluticasone Propionate (Flonase 0.05% Nasal) 1 spray BID NASAL Last administered on 08/29/16 09:14; Admin Dose 1 SPRAY; Start 07/26/16 at 10:00 Epoetin [place] (Epogen (Esrd)) 10,000 units MoWeFr@17 SC Last administered on 08/27 17:48; Admin Dose 10,000 UNITS; Start 07/27/16 at 17:00; Status Future hold Hydralazine HCl (Apresoline) 10 mg Q6H PRN IV ELEVATED BLOOD PRESSURE Last administered on 08/28/16 16:35; Admin Dose 10 MG; Start 07/29/16 at 13:00 Acetaminophen (Tylenol Tab) 650 mg Q6H PRN GTB PAIN1-3/FEVER ABOVE 100 Last administered on 08/12/16at 06:07; Admin Dose 650 MG; Start 08/02/16 at 15:00 Atorvastatin Calcium (Lipitor) 40 mg HS GTB Last administered on 08/28/16 22: 23; Admin Dose 40 MG; Start 08/02/16 at 21:00 Carvedilol (Coreg) 6.25 mg BID GTB Last administered on 08/29/16 09:10; Admin Dose 6.25 MG; Start 08/02/16 at 09:00; Status Future hold Duloxetine HCl (Cymbalta) 90 mg DAILY GTB Last administered on 08/29/16 09:09 ; Admin Dose 90 MG; Start 08/02/16 at 09:00 Guaifenesin (Robitussin Liquid Cup) 100 mg Q4 PRN GTB COUGH; Start 08/02/16 at 09:00 Acetaminophen/ Hydrocodone Bitart ([place] (5/325)) 1 tab Q4 PRN GTB WSOB Last administered on 08/29/16 09:11; Admin Dose 1 TAB; Start 08/02/16 at 09:00 Lactobacillus Acidoph/Bulgaricus (Floranex) 1 tab DAILY GTB Last administered on 08/29/16 09:09; Admin Dose 1 TAB; Start 08/02/16 at 09:00 Lorazepam (Ativan) 1 mg Q6H PRN GTB ANXIETY Last administered on 08/18/16at 10: 45; Admin Dose 1 MG; Start 08/02/16 at 09:00 Multivit/Ca Carb/ B Cmplx/FA/Prenat (Cheryl-Darcie) 1 tab DAILY GTB Last administered on 08/29/16 09:09; Admin Dose 1 TAB; Start 08/02/16 at 09:00 Aspirin (Aspirin) 81 mg DAILY GTB Last administered on 08/29/16 09:09; Admin Dose 81 MG; Start 08/02/16 at 09:00 Lansoprazole (Prevacid) 30 mg DAILY@06 GTB Last administered on 08/29/16 05:59 ; Admin Dose 30 MG; Start 08/02/16 at 10:00 Sildenafil Citrate (Revatio) 20 mg BID PO Last administered on 08/29/16 09:10 ; Admin Dose 20 MG; Start 08/08/16 at 21:00; Status Future hold Lorazepam (Ativan) 0.5 mg Q4 PRN IV ANXIETY Last administered on 08/24/16 04:04 ; Admin Dose 0.5 MG; Start 08/09/16 at 00:00 Methylprednisolone Sodium Succinate (Solu-Medrol) 20 mg DAILY IV Last administered on 08/29/16 09:08; Admin Dose 20 MG; Start 08/10/16 at 09:00 Miscellaneous Information 1 ea NOTE XX ; Start 08/11/16 at 12:00 Glucose (Glutose) 15 gm Q15M PRN PO DECREASED GLUCOSE; Start 08/11/16 at 12:00 Glucose (Glutose) 22.5 gm Q15M PRN PO DECREASED GLUCOSE; Start 08/11/16 at 12: 00 Dextrose (D50w Syringe) 25 ml Q15M PRN IV DECREASED GLUCOSE Last administered on 08/24/16 12:54; Admin Dose 25 ML; Start 08/11/16 at 12:00 Dextrose (D50w Syringe) 50 ml Q15M PRN IV DECREASED GLUCOSE; Start 08/11/16 at 12:00 Glucagon (Glucagen) 1 mg Q15M PRN IM DECREASED GLUCOSE; Start 08/11/16 at 12: 00 Glucose (Glutose) 15 gm Q15M PRN BUCCAL DECREASED GLUCOSE; Start 08/11/16 at 12:00 Insulin Aspart (Novolog Insulin Pen) NOVOLOG *MODERATE* ALGORI... Q4 SC Last administered on 08/29/16 12:25; Admin Dose 4 UNIT; Start 08/11/16 at 17:00 IV Flush (NS 10 ml) 10 ml PRN PRN IV IV PROTOCOL Last administered on 05:59; Admin Dose 10 ML; Start 08/13/16 at 18:00 Collagenase (Santyl) 1 applic DAILY@22 TOP Last administered on 08/28/16 22:28 ; Admin Dose 1 APPLIC; Start 08/15/16 at 22:00 Insulin Glargine (Lantus) 25 unit QAM SC Last administered on 08/29/16 09:14; Admin Dose 25 UNIT; Start 08/18/16 at 09:00 Acyclovir (Zovirax) 200 mg BID GTB Last administered on 08/29/16 09:10; Admin Dose 200 MG; Start 08/25/16 at 21:00; Stop 08/30/16 at 20:59 MARY DOMINGUEZ Aug 29, 2016 15:43
[2016-08-29] MEDS: hydrALAzine 20 MG INJ IV PRN (17:39)
[2016-08-29] MEDS: EPOETIN 10000 UNITS/1 ML INJ (ESRD) SC SCH (17:39)
--- NOTE | 2016-08-29 19:30 | CONS ---
Date/Time of Note Date/Time of Note DATE: 08/29/16 TIME: 19:27 Assessment/Plan Assessment/Plan Additional Assessment/Plan Respiratory failure status post intubation Sepsis Minimally elevated troponin DVT Diastolic congestive heart failure End-stage renal disease on hemodialysis CAD with history of PCI Diabetes Peripheral arterial disease with history of amputation Pulmonary hypertension -Patient's blood pressure trend improved, still with episodes of elevation. If remains elevated, would increase dose of Coreg and consider restarting other antihypertensives. Continue sildenafil. Consultation Date/Type/Reason Admit Date/Time Jul 26, 2016 at 01:55 Type of Consultation: cv Referring Provider: GRACIE KATHLEEN 24 HR Interval Summary Free Text/Dictation Patient seen and examined, more awake today, denies chest pain or shortness of breath Exam/Review of Systems Vital Signs Vitals Vital Signs Date Time Temp Pulse Resp B/P Pulse Ox O2 Delivery O2 Flow Rate FiO2 08/29/16 18:41 70 20 100 40 08/29/16 18:37 136/71 08/29/16 15:24 98.3 08/29/16 04:30 Mechanical Ventilator Intake and Output 08/28/16 08/28/16 08/29/16 15:00 23:00 07:00 Intake Total 800 ml 610 ml 560 ml Output Total 2800 ml 3000 ml 150 ml Balance -2000 ml -2390 ml 410 ml Exam Follows commands, no apparent distress Constitutional: alert Head: normocephalic Neck: other (tracheostomy) Respiratory: other (course breath sounds bilaterally, no wheezing) Cardiovascular: other (S1-S2 heard), regular rate and rhythm Gastrointestinal: bowel sounds, non-tender, soft Extremities: edema Results Result Diagram: 08/29/16 0555 08/29/16 0555 Results 24 hrs Laboratory Tests Test 08/28/16 22:27 08/29/16 00:39 08/29/16 05:55 08/29/16 05:58 Bedside Glucose 172 177 219 Anion Gap 15 Basophils # 0.0 Basophils % 0.0 Blood Morphology Comment Blood Urea Nitrogen 40 #H Calcium Level 7.8 L Carbon Dioxide Level 29 Chloride Level 98 Creatinine 2.22 #H Eosinophils # 0.0 Eosinophils % 0.0 Glucose Level 212 Hematocrit 25.3 L Hemoglobin 8.5 L Lymphocytes # 0.3 L Lymphocytes % 6.4 L Mean Corpuscular Hemoglobin 33.1 H Mean Corpuscular Hemoglobin Concent 33.7 Mean Corpuscular Volume 98.2 Mean Platelet Volume 7.9 Monocytes # 0.3 Monocytes % 5.2 Neutrophils # 4.7 Neutrophils % 88.4 H Nucleated Red Blood Cells # 0.0 Nucleated Red Blood Cells % 0.0 Platelet Count 77 L Potassium Level 3.9 Red Blood Count 2.57 L Red Cell Distribution Width 18.3 H Sodium Level 138 White Blood Count 5.4 Test 08/29/16 07:58 08/29/16 12:20 08/29/16 17:24 Bedside Glucose 222 H 197 212 Medications Medications Current Medications Fluticasone Propionate (Flonase 0.05% Nasal) 1 spray BID NASAL Last administered on 08/29/16 09:14; Admin Dose 1 SPRAY; Start 07/26/16 at 10:00 Epoetin [place] (Epogen (Esrd)) 10,000 units MoWeFr@17 SC Last administered on 17:39; Admin Dose 10,000 UNITS; Start 07/27/16 at 17:00; Status Future hold Hydralazine HCl (Apresoline) 10 mg Q6H PRN IV ELEVATED BLOOD PRESSURE Last administered on 08/29/16 17:39; Admin Dose 10 MG; Start 07/29/16 at 13:00 Acetaminophen (Tylenol Tab) 650 mg Q6H PRN GTB PAIN1-3/FEVER ABOVE 100 Last administered on 08/12/16at 06:07; Admin Dose 650 MG; Start 08/02/16 at 15:00 Atorvastatin Calcium (Lipitor) 40 mg HS GTB Last administered on 08/28/16 22: 23; Admin Dose 40 MG; Start 08/02/16 at 21:00 Carvedilol (Coreg) 6.25 mg BID GTB Last administered on 08/29/16 09:10; Admin Dose 6.25 MG; Start 08/02/16 at 09:00; Status Future hold Duloxetine HCl (Cymbalta) 90 mg DAILY GTB Last administered on 08/29/16 09:09 ; Admin Dose 90 MG; Start 08/02/16 at 09:00 Guaifenesin (Robitussin Liquid Cup) 100 mg Q4 PRN GTB COUGH; Start 08/02/16 at 09:00 Acetaminophen/ Hydrocodone Bitart ([place] (5/325)) 1 tab Q4 PRN GTB WSOB Last administered on 08/29/16 17:40; Admin Dose 1 TAB; Start 08/02/16 at 09:00 Lactobacillus Acidoph/Bulgaricus (Floranex) 1 tab DAILY GTB Last administered on 08/29/16 09:09; Admin Dose 1 TAB; Start 08/02/16 at 09:00 Lorazepam (Ativan) 1 mg Q6H PRN GTB ANXIETY Last administered on 08/18/16at 10: 45; Admin Dose 1 MG; Start 08/02/16 at 09:00 Multivit/Ca Carb/ B Cmplx/FA/Prenat (Cheryl-Darcie) 1 tab DAILY GTB Last administered on 08/29/16 09:09; Admin Dose 1 TAB; Start 08/02/16 at 09:00 Aspirin (Aspirin) 81 mg DAILY GTB Last administered on 08/29/16 09:09; Admin Dose 81 MG; Start 08/02/16 at 09:00 Lansoprazole (Prevacid) 30 mg DAILY@06 GTB Last administered on 08/29/16 05:59 ; Admin Dose 30 MG; Start 08/02/16 at 10:00 Sildenafil Citrate (Revatio) 20 mg BID PO Last administered on 08/29/16 09:10 ; Admin Dose 20 MG; Start 08/08/16 at 21:00; Status Future hold Lorazepam (Ativan) 0.5 mg Q4 PRN IV ANXIETY Last administered on 08/24/16 04:04 ; Admin Dose 0.5 MG; Start 08/09/16 at 00:00 Methylprednisolone Sodium Succinate (Solu-Medrol) 20 mg DAILY IV Last administered on 08/29/16 09:08; Admin Dose 20 MG; Start 08/10/16 at 09:00 Miscellaneous Information 1 ea NOTE XX ; Start 08/11/16 at 12:00 Glucose (Glutose) 15 gm Q15M PRN PO DECREASED GLUCOSE; Start 08/11/16 at 12:00 Glucose (Glutose) 22.5 gm Q15M PRN PO DECREASED GLUCOSE; Start 08/11/16 at 12: 00 Dextrose (D50w Syringe) 25 ml Q15M PRN IV DECREASED GLUCOSE Last administered on 08/24/16 12:54; Admin Dose 25 ML; Start 08/11/16 at 12:00 Dextrose (D50w Syringe) 50 ml Q15M PRN IV DECREASED GLUCOSE; Start 08/11/16 at 12:00 Glucagon (Glucagen) 1 mg Q15M PRN IM DECREASED GLUCOSE; Start 08/11/16 at 12: 00 Glucose (Glutose) 15 gm Q15M PRN BUCCAL DECREASED GLUCOSE; Start 08/11/16 at 12:00 Insulin Aspart (Novolog Insulin Pen) NOVOLOG *MODERATE* ALGORI... Q4 SC Last administered on 08/29/16 17:47; Admin Dose 4 UNIT; Start 08/11/16 at 17:00 IV Flush (NS 10 ml) 10 ml PRN PRN IV IV PROTOCOL Last administered on 05:59; Admin Dose 10 ML; Start 08/13/16 at 18:00 Collagenase (Santyl) 1 applic DAILY@22 TOP Last administered on 08/28/16 22:28 ; Admin Dose 1 APPLIC; Start 08/15/16 at 22:00 Insulin Glargine (Lantus) 25 unit QAM SC Last administered on 08/29/16 09:14; Admin Dose 25 UNIT; Start 08/18/16 at 09:00 Acyclovir (Zovirax) 200 mg BID GTB Last administered on 08/29/16 09:10; Admin Dose 200 MG; Start 08/25/16 at 21:00; Stop 08/30/16 at 20:59 Solo Leon DO Aug 29, 2016 19:29
[2016-08-29] MEDS: COLLAGENASE 30 GM TUBE TOP SCH (22:52)
[2016-08-29] MEDS: ATORVASTATIN 40 MG TAB GTB SCH (22:52)
[2016-08-30] VITALS (35 sets, daily range): BP systolic 98–149; BP diastolic 45–87; PULSE 65–92; RESP 18–28
[2016-08-30] MEDS: LORAZEPAM 2 MG INJ IV PRN (00:05)
[2016-08-30] MEDS: INSULIN ASPART [NOVOLOG] 3 ML PEN SC SCH ×5 (01:00→20:44)
[2016-08-30] MEDS: ALBUTEROL HFA 8 GM INHALER INH SCH ×4 (01:46→19:47)
[2016-08-30] MEDS: IPRATROPIUM (HFA) 12.9 GM INHALER INH SCH ×4 (01:46→19:47)
[2016-08-30] MEDS: LANSOPRAZOLE 30 MG CAP GTB SCH (06:08)
[2016-08-30 06:51] LABS: EOSINOPHILS % 0.5 % (0.0-7.0); HEMATOCRIT 23.4 % (42.0-52.0); HEMOGLOBIN 7.9 g/dl (14.0-18.0); LYMPHOCYTES # 0.7 10^3/ul (0.8-2.9); LYMPHOCYTES % 10.9 % (15.0-51.0); MEAN CORPUSCULAR HEMOGLOBIN 32.9 pg (29.0-33.0); MEAN CORPUSCULAR HGB CONC 33.6 g/dl (32.0-37.0); MEAN CORPUSCULAR VOLUME 97.8 fl (82.0-101.0); MEAN PLATELET VOLUME 7.9 fl (7.4-10.4); MONOCYTE # 0.5 10^3/ul (0.3-0.9); MONOCYTES % 8.3 % (0.0-11.0); NEUTROPHILS % 80.3 % (39.0-77.0); RED BLOOD COUNT 2.39 10^6/ul (4.70-6.10); RED CELL DISTRIBUTION WIDTH 17.8 % (11.5-14.5); UNCORRECTED WBC 6.2 10^3/ul (4.8-10.8); WHITE BLOOD COUNT 6.2 10^3/ul (4.8-10.8)
[2016-08-30 07:00] LABS: CONDITION 1; LH ANALYZER COMMENTS 1; PLATELET COUNT 88 10^3/UL (140-440)
[2016-08-30 07:01] LABS: POTASSIUM 3.7 mmol/L (3.5-5.1)
[2016-08-30 07:03] LABS: CREATININE 2.8 mg/dl (0.61-1.24)
[2016-08-30 07:04] LABS: CALCIUM 7.8 mg/dl (8.4-10.2); PHOSPHORUS 2.2 mg/dl (2.5-4.9)
--- NOTE | 2016-08-30 07:59 | CONS ---
Date/Time of Note Date/Time of Note DATE: 08/30/16 TIME: 07:53 Consult Date/Type/Reason Admit Date/Time Jul 26, 2016 at 01:55 Initial Consult Date 07/29/16 Type of Consultation: nephrology Reason for Consultation ESRD f/u Ordering Provider: GRACIE KATHLEEN Subjective non verbal as on the vent... is awake, alert tho Objective Vital Signs Date Time Temp Pulse Resp B/P Pulse Ox O2 Delivery O2 Flow Rate FiO2 08/30/16 07:33 98.6 78 18 149/87 98 08/30/16 05:20 40 08/29/16 04:30 Mechanical Ventilator Intake and Output 08/29/16 08/29/16 08/30/16 15:00 23:00 07:00 Intake Total 560 ml 560 ml Output Total 100 ml 200 ml Balance 460 ml 360 ml Results/Medications Result Diagram: 08/30/16 0605 08/30/16 0605 Results 24 hrs Laboratory Tests Test 08/29/16 07:58 08/29/16 12:20 08/29/16 17:24 08/29/16 20:09 Bedside Glucose 222 H 197 212 204 Test 08/30/16 00:57 08/30/16 05:13 08/30/16 06:05 Bedside Glucose 202 183 Anion Gap 13 Basophils # 0.0 Basophils % 0.0 Blood Morphology Comment Blood Urea Nitrogen 54 H Calcium Level 7.8 L Carbon Dioxide Level 29 Chloride Level 98 Creatinine 2.80 H Eosinophils # 0.0 Eosinophils % 0.5 Glucose Level 170 Hematocrit 23.4 L Hemoglobin 7.9 L Lymphocytes # 0.7 L Lymphocytes % 10.9 L Mean Corpuscular Hemoglobin 32.9 Mean Corpuscular Hemoglobin Concent 33.6 Mean Corpuscular Volume 97.8 Mean Platelet Volume 7.9 Monocytes # 0.5 Monocytes % 8.3 Neutrophils # 5.0 Neutrophils % 80.3 H Nucleated Red Blood Cells # 0.0 Nucleated Red Blood Cells % 0.0 Phosphorus Level 2.2 L Platelet Count 88 L Potassium Level 3.7 Red Blood Count 2.39 L Red Cell Distribution Width 17.8 H Sodium Level 136 White Blood Count 6.2 Medications Current Medications Fluticasone Propionate (Flonase 0.05% Nasal) 1 spray BID NASAL Last administered on 08/29/16t 22:52; Admin Dose 1 SPRAY; Start 07/26/16 at 10:00 Epoetin [place] (Epogen (Esrd)) 10,000 units MoWeFr@17 SC Last administered on 17:39; Admin Dose 10,000 UNITS; Start 07/27/16 at 17:00; Status Future hold Hydralazine HCl (Apresoline) 10 mg Q6H PRN IV ELEVATED BLOOD PRESSURE Last administered on 08/29/16 17:39; Admin Dose 10 MG; Start 07/29/16 at 13:00 Acetaminophen (Tylenol Tab) 650 mg Q6H PRN GTB PAIN1-3/FEVER ABOVE 100 Last administered on 08/12/16at 06:07; Admin Dose 650 MG; Start 08/02/16 at 15:00 Atorvastatin Calcium (Lipitor) 40 mg HS GTB Last administered on 08/29/16 22: 52; Admin Dose 40 MG; Start 08/02/16 at 21:00 Carvedilol (Coreg) 6.25 mg BID GTB Last administered on 08/29/16 22:52; Admin Dose 6.25 MG; Start 08/02/16 at 09:00; Status Future hold Duloxetine HCl (Cymbalta) 90 mg DAILY GTB Last administered on 08/29/16 09:09 ; Admin Dose 90 MG; Start 08/02/16 at 09:00 Guaifenesin (Robitussin Liquid Cup) 100 mg Q4 PRN GTB COUGH; Start 08/02/16 at 09:00 Acetaminophen/ Hydrocodone Bitart ([place] (5/325)) 1 tab Q4 PRN GTB WSOB Last administered on 08/29/16 22:59; Admin Dose 1 TAB; Start 08/02/16 at 09:00 Lactobacillus Acidoph/Bulgaricus (Floranex) 1 tab DAILY GTB Last administered on 08/29/16 09:09; Admin Dose 1 TAB; Start 08/02/16 at 09:00 Lorazepam (Ativan) 1 mg Q6H PRN GTB ANXIETY Last administered on 08/18/16at 10: 45; Admin Dose 1 MG; Start 08/02/16 at 09:00 Multivit/Ca Carb/ B Cmplx/FA/Prenat (Cheryl-Darcie) 1 tab DAILY GTB Last administered on 08/29/16 09:09; Admin Dose 1 TAB; Start 08/02/16 at 09:00 Aspirin (Aspirin) 81 mg DAILY GTB Last administered on 08/29/16 09:09; Admin Dose 81 MG; Start 08/02/16 at 09:00 Lansoprazole (Prevacid) 30 mg DAILY@06 GTB Last administered on 08/30/16 06:08 ; Admin Dose 30 MG; Start 08/02/16 at 10:00 Sildenafil Citrate (Revatio) 20 mg BID PO Last administered on 08/29/16 22:51 ; Admin Dose 20 MG; Start 08/08/16 at 21:00; Status Future hold Lorazepam (Ativan) 0.5 mg Q4 PRN IV ANXIETY Last administered on 08/30/16 00: 05; Admin Dose 0.5 MG; Start 08/09/16 at 00:00 Methylprednisolone Sodium Succinate (Solu-Medrol) 20 mg DAILY IV Last administered on 08/29/16 09:08; Admin Dose 20 MG; Start 08/10/16 at 09:00 Miscellaneous Information 1 ea NOTE XX ; Start 08/11/16 at 12:00 Glucose (Glutose) 15 gm Q15M PRN PO DECREASED GLUCOSE; Start 08/11/16 at 12:00 Glucose (Glutose) 22.5 gm Q15M PRN PO DECREASED GLUCOSE; Start 08/11/16 at 12: 00 Dextrose (D50w Syringe) 25 ml Q15M PRN IV DECREASED GLUCOSE Last administered on 08/24/16 12:54; Admin Dose 25 ML; Start 08/11/16 at 12:00 Dextrose (D50w Syringe) 50 ml Q15M PRN IV DECREASED GLUCOSE; Start 08/11/16 at 12:00 Glucagon (Glucagen) 1 mg Q15M PRN IM DECREASED GLUCOSE; Start 08/11/16 at 12: 00 Glucose (Glutose) 15 gm Q15M PRN BUCCAL DECREASED GLUCOSE; Start 08/11/16 at 12:00 Insulin Aspart (Novolog Insulin Pen) NOVOLOG *MODERATE* ALGORI... Q4 SC Last administered on 08/30/16 06:18; Admin Dose 4 UNIT; Start 08/11/16 at 17:00 IV Flush (NS 10 ml) 10 ml PRN PRN IV IV PROTOCOL Last administered on 05:59; Admin Dose 10 ML; Start 08/13/16 at 18:00 Collagenase (Santyl) 1 applic DAILY@22 TOP Last administered on 08/29/16 22:52 ; Admin Dose 1 APPLIC; Start 08/15/16 at 22:00 Insulin Glargine (Lantus) 25 unit QAM SC Last administered on 08/29/16 09:14; Admin Dose 25 UNIT; Start 08/18/16 at 09:00 Acyclovir (Zovirax) 200 mg BID GTB Last administered on 08/29/16 22:52; Admin Dose 200 MG; Start 08/25/16 at 21:00; Stop 08/30/16 at 20:59 Assessment/Plan Chief Complaint/Hosp Course dialysis today Problems: (1) ESRD (end stage renal disease) on dialysis (2) Respiratory failure, acute and chronic (3) CHF (congestive heart failure) (4) Anemia Additional Assessment/Plan transfuse 2 u prbc w dialysis today MOSES GUAJARDO MD Aug 30, 2016 07:59
[2016-08-30] MEDS: ACYCLOVIR 200 MG CAP GTB SCH (08:57)
[2016-08-30] MEDS: LACTOBACILLUS CHEW TAB GTB SCH (08:57)
[2016-08-30] MEDS: METHYLPREDNISOLONE 40 MG INJ IV SCH (08:57)
[2016-08-30] MEDS: DULOXETINE 30 MG CAP DR GTB SCH (08:57)
[2016-08-30] MEDS: ASPIRIN 81 MG TAB GTB SCH (08:57)
[2016-08-30] MEDS: SILDENAFIL 20 MG TAB PO SCH ×2 (08:57→23:43)
[2016-08-30] MEDS: MULTIVIT/CA CARB/B CMPLX/FA TAB GTB SCH (08:58)
[2016-08-30] MEDS: FLUTICASONE 0.05% 16 GM NAS SPRAY NASAL SCH ×2 (09:02→23:44)
[2016-08-30] MEDS: INSULIN GLARGINE [LANtus] 3 ML PEN SC SCH (09:13)
--- NOTE | 2016-08-30 11:11 | RADRPT ---
PROCEDURE: Chest 1 views. CLINICAL INDICATION: Shortness of breath TECHNIQUE: AP views of the chest were obtained. COMPARISON: August 25, 2016 FINDINGS: The heart is large. The lungs are hypoinflated. Elevation right hemidiaphragm is identified. Assoc iated atelectasis/consolidation of the right lower lobe is noted. Subsegmental atelectasis is noted in the left lower lobe. Right-sided PICC line is unchanged. Tracheostomy tube is stable and appea rs in grossly appropriate location. Osseous structures are intact. IMPRESSION: Cardiomegaly . Hypoinflated lungs. Elevation right hemidiaphragm with associated right lower lobe atelectasis/consolidation. Subsegmental atelectasis in the left lower lobe. RPTAT: AA .Ishmael Melchor MD, MD Date Time Electronically viewed and signed by .Ishmael Melchor MD, MD on 08/30/2016 11:10 .P/
--- NOTE | 2016-08-30 11:53 | CONS ---
Date/Time of Note Date/Time of Note DATE: 08/30/16 TIME: 11:52 Consult Date/Type/Reason Admit Date/Time Jul 26, 2016 at 01:55 Initial Consult Date 07/29/16 Type of Consultation: Pulm Ordering Provider: GRACIE KATHLEEN Subjective Comfortable Objective Vital Signs Date Time Temp Pulse Resp B/P Pulse Ox O2 Delivery O2 Flow Rate FiO2 08/30/16 11:30 92 08/30/16 11:21 97.9 18 104/55 99 08/30/16 11:17 40 08/29/16 04:30 Mechanical Ventilator Intake and Output 08/29/16 08/29/16 08/30/16 15:00 23:00 07:00 Intake Total 560 ml 560 ml Output Total 100 ml 200 ml Balance 460 ml 360 ml PHYSICAL EXAMINATION: VITAL SIGNS: as above HEENT: Pupils are equal and reactive to light. NECK: Supple, no JVD noted, no cervical adenopathy, no carotid bruits heard. Tracheostomy site clear. LUNGS: Few scattered rhonchi. CARDIOVASCULAR: S1, S2 normal. ABDOMEN: Soft, nontender. Positive bowel sounds. EXTREMITIES: No clubbing or cyanosis noted. NEUROLOGICAL: Encephalopathic. Results/Medications Result Diagram: 08/30/16 0605 08/30/16 0605 Results 24 hrs Laboratory Tests Test 08/29/16 12:20 08/29/16 17:24 08/29/16 20:09 08/30/16 00:57 Bedside Glucose 197 212 204 202 Test 08/30/16 05:13 08/30/16 06:05 08/30/16 09:05 Bedside Glucose 183 183 Anion Gap 13 Basophils # 0.0 Basophils % 0.0 Blood Morphology Comment Blood Urea Nitrogen 54 H Calcium Level 7.8 L Carbon Dioxide Level 29 Chloride Level 98 Creatinine 2.80 H Eosinophils # 0.0 Eosinophils % 0.5 Glucose Level 170 Hematocrit 23.4 L Hemoglobin 7.9 L Lymphocytes # 0.7 L Lymphocytes % 10.9 L Mean Corpuscular Hemoglobin 32.9 Mean Corpuscular Hemoglobin Concent 33.6 Mean Corpuscular Volume 97.8 Mean Platelet Volume 7.9 Monocytes # 0.5 Monocytes % 8.3 Neutrophils # 5.0 Neutrophils % 80.3 H Nucleated Red Blood Cells # 0.0 Nucleated Red Blood Cells % 0.0 Phosphorus Level 2.2 L Platelet Count 88 L Potassium Level 3.7 Red Blood Count 2.39 L Red Cell Distribution Width 17.8 H Sodium Level 136 White Blood Count 6.2 Medications Current Medications Fluticasone Propionate (Flonase 0.05% Nasal) 1 spray BID NASAL Last administered on 08/30/16 09:02; Admin Dose 1 SPRAY; Start 07/26/16 at 10:00 Epoetin [place] (Epogen (Esrd)) 10,000 units MoWeFr@17 SC Last administered on 17:39; Admin Dose 10,000 UNITS; Start 07/27/16 at 17:00; Status Future hold Hydralazine HCl (Apresoline) 10 mg Q6H PRN IV ELEVATED BLOOD PRESSURE Last administered on 08/29/16 17:39; Admin Dose 10 MG; Start 07/29/16 at 13:00 Acetaminophen (Tylenol Tab) 650 mg Q6H PRN GTB PAIN1-3/FEVER ABOVE 100 Last administered on 08/12/16at 06:07; Admin Dose 650 MG; Start 08/02/16 at 15:00 Atorvastatin Calcium (Lipitor) 40 mg HS GTB Last administered on 08/29/16 22: 52; Admin Dose 40 MG; Start 08/02/16 at 21:00 Carvedilol (Coreg) 6.25 mg BID GTB Last administered on 08/29/16 22:52; Admin Dose 6.25 MG; Start 08/02/16 at 09:00; Status Future hold Duloxetine HCl (Cymbalta) 90 mg DAILY GTB Last administered on 08/30/16 08:57 ; Admin Dose 90 MG; Start 08/02/16 at 09:00 Guaifenesin (Robitussin Liquid Cup) 100 mg Q4 PRN GTB COUGH; Start 08/02/16 at 09:00 Acetaminophen/ Hydrocodone Bitart ([place] (5/325)) 1 tab Q4 PRN GTB WSOB Last administered on 08/29/16 22:59; Admin Dose 1 TAB; Start 08/02/16 at 09:00 Lactobacillus Acidoph/Bulgaricus (Floranex) 1 tab DAILY GTB Last administered on 08/30/16 08:57; Admin Dose 1 TAB; Start 08/02/16 at 09:00 Lorazepam (Ativan) 1 mg Q6H PRN GTB ANXIETY Last administered on 08/18/16at 10: 45; Admin Dose 1 MG; Start 08/02/16 at 09:00 Multivit/Ca Carb/ B Cmplx/FA/Prenat (Cheryl-Darcie) 1 tab DAILY GTB Last administered on 08/30/16 08:58; Admin Dose 1 TAB; Start 08/02/16 at 09:00 Aspirin (Aspirin) 81 mg DAILY GTB Last administered on 08/30/16 08:57; Admin Dose 81 MG; Start 08/02/16 at 09:00 Lansoprazole (Prevacid) 30 mg DAILY@06 GTB Last administered on 08/30/16 06:08 ; Admin Dose 30 MG; Start 08/02/16 at 10:00 Sildenafil Citrate (Revatio) 20 mg BID PO Last administered on 08/30/16 08:57 ; Admin Dose 20 MG; Start 08/08/16 at 21:00; Status Future hold Lorazepam (Ativan) 0.5 mg Q4 PRN IV ANXIETY Last administered on 08/30/16 00: 05; Admin Dose 0.5 MG; Start 08/09/16 at 00:00 Methylprednisolone Sodium Succinate (Solu-Medrol) 20 mg DAILY IV Last administered on 08/30/16 08:57; Admin Dose 20 MG; Start 08/10/16 at 09:00 Miscellaneous Information 1 ea NOTE XX ; Start 08/11/16 at 12:00 Glucose (Glutose) 15 gm Q15M PRN PO DECREASED GLUCOSE; Start 08/11/16 at 12:00 Glucose (Glutose) 22.5 gm Q15M PRN PO DECREASED GLUCOSE; Start 08/11/16 at 12: 00 Dextrose (D50w Syringe) 25 ml Q15M PRN IV DECREASED GLUCOSE Last administered on 08/24/16 12:54; Admin Dose 25 ML; Start 08/11/16 at 12:00 Dextrose (D50w Syringe) 50 ml Q15M PRN IV DECREASED GLUCOSE; Start 08/11/16 at 12:00 Glucagon (Glucagen) 1 mg Q15M PRN IM DECREASED GLUCOSE; Start 08/11/16 at 12: 00 Glucose (Glutose) 15 gm Q15M PRN BUCCAL DECREASED GLUCOSE; Start 08/11/16 at 12:00 Insulin Aspart (Novolog Insulin Pen) NOVOLOG *MODERATE* ALGORI... Q4 SC Last administered on 08/30/16 09:14; Admin Dose 4 UNIT; Start 08/11/16 at 17:00 IV Flush (NS 10 ml) 10 ml PRN PRN IV IV PROTOCOL Last administered on 05:59; Admin Dose 10 ML; Start 08/13/16 at 18:00 Collagenase (Santyl) 1 applic DAILY@22 TOP Last administered on 08/29/16 22:52 ; Admin Dose 1 APPLIC; Start 08/15/16 at 22:00 Insulin Glargine (Lantus) 25 unit QAM SC Last administered on 08/30/16 09:13; Admin Dose 25 UNIT; Start 08/18/16 at 09:00 Acyclovir (Zovirax) 200 mg BID GTB Last administered on 08/30/16 08:57; Admin Dose 200 MG; Start 08/25/16 at 21:00; Stop 08/30/16 at 20:59 Assessment/Plan Chief Complaint/Hosp Course IMPRESSION: 1. Ventilator-dependent respiratory failure, hypoxemic. 2. End-stage renal disease on hemodialysis. 3. Pulmonary edema. 4. Possible aspiration pneumonia. RECOMMENDATIONS 1. Continue ventilator support. 2. Hemodialysis per nephrology. 3. Antibiotics per ID. 4. Followup labs pending transfer to [place] or [facility] Problems: VALERIE CAMARENA MD, [facility] Aug 30, 2016 11:53
--- NOTE | 2016-08-30 14:25 | CONS ---
Date/Time of Note Date/Time of Note DATE: 08/30/16 TIME: 14:23 Assessment/Plan Assessment/Plan Additional Assessment/Plan Respiratory failure status post intubation Sepsis Minimally elevated troponin DVT Diastolic congestive heart failure End-stage renal disease on hemodialysis CAD with history of PCI Diabetes Peripheral arterial disease with history of amputation Pulmonary hypertension -Blood pressure trend improved, continue antihypertensives with holding parameters. Plan for blood transfusion Consultation Date/Type/Reason Admit Date/Time Jul 26, 2016 at 01:55 Type of Consultation: cv Referring Provider: GRACIE KATHLEEN 24 HR Interval Summary Free Text/Dictation Patient seen and examined Exam/Review of Systems Vital Signs Vitals Vital Signs Date Time Temp Pulse Resp B/P Pulse Ox O2 Delivery O2 Flow Rate FiO2 08/30/16 13:40 75 24 99 40 08/30/16 11:21 97.9 104/55 08/29/16 04:30 Mechanical Ventilator Intake and Output 08/29/16 08/29/16 08/30/16 15:00 23:00 07:00 Intake Total 560 ml 560 ml Output Total 100 ml 200 ml Balance 460 ml 360 ml Exam Awake, no apparent distress Head: normocephalic Neck: other (tracheostomy) Respiratory: other (course breath sounds bilaterally, no wheezing) Cardiovascular: other (S1 and S2 heard), regular rate and rhythm Gastrointestinal: bowel sounds, non-tender, soft Extremities: edema Results Result Diagram: 08/30/16 0605 08/30/16 0605 Results 24 hrs Laboratory Tests Test 08/29/16 17:24 08/29/16 20:09 08/30/16 00:57 08/30/16 05:13 Bedside Glucose 212 204 202 183 Test 08/30/16 06:05 08/30/16 09:05 Anion Gap 13 Basophils # 0.0 Basophils % 0.0 Blood Morphology Comment Blood Urea Nitrogen 54 H Calcium Level 7.8 L Carbon Dioxide Level 29 Chloride Level 98 Creatinine 2.80 H Eosinophils # 0.0 Eosinophils % 0.5 Glucose Level 170 Hematocrit 23.4 L Hemoglobin 7.9 L Lymphocytes # 0.7 L Lymphocytes % 10.9 L Mean Corpuscular Hemoglobin 32.9 Mean Corpuscular Hemoglobin Concent 33.6 Mean Corpuscular Volume 97.8 Mean Platelet Volume 7.9 Monocytes # 0.5 Monocytes % 8.3 Neutrophils # 5.0 Neutrophils % 80.3 H Nucleated Red Blood Cells # 0.0 Nucleated Red Blood Cells % 0.0 Phosphorus Level 2.2 L Platelet Count 88 L Potassium Level 3.7 Red Blood Count 2.39 L Red Cell Distribution Width 17.8 H Sodium Level 136 White Blood Count 6.2 Bedside Glucose 183 Medications Medications Current Medications Fluticasone Propionate (Flonase 0.05% Nasal) 1 spray BID NASAL Last administered on 08/30/16 09:02; Admin Dose 1 SPRAY; Start 07/26/16 at 10:00 Epoetin [place] (Epogen (Esrd)) 10,000 units MoWeFr@17 SC Last administered on 17:39; Admin Dose 10,000 UNITS; Start 07/27/16 at 17:00; Status Future hold Hydralazine HCl (Apresoline) 10 mg Q6H PRN IV ELEVATED BLOOD PRESSURE Last administered on 08/29/16 17:39; Admin Dose 10 MG; Start 07/29/16 at 13:00 Acetaminophen (Tylenol Tab) 650 mg Q6H PRN GTB PAIN1-3/FEVER ABOVE 100 Last administered on 08/12/16at 06:07; Admin Dose 650 MG; Start 08/02/16 at 15:00 Atorvastatin Calcium (Lipitor) 40 mg HS GTB Last administered on 08/29/16 22: 52; Admin Dose 40 MG; Start 08/02/16 at 21:00 Carvedilol (Coreg) 6.25 mg BID GTB Last administered on 08/29/16 22:52; Admin Dose 6.25 MG; Start 08/02/16 at 09:00; Status Future hold Duloxetine HCl (Cymbalta) 90 mg DAILY GTB Last administered on 08/30/16 08:57 ; Admin Dose 90 MG; Start 08/02/16 at 09:00 Guaifenesin (Robitussin Liquid Cup) 100 mg Q4 PRN GTB COUGH; Start 08/02/16 at 09:00 Acetaminophen/ Hydrocodone Bitart ([place] (5/325)) 1 tab Q4 PRN GTB WSOB Last administered on 08/29/16 22:59; Admin Dose 1 TAB; Start 08/02/16 at 09:00 Lactobacillus Acidoph/Bulgaricus (Floranex) 1 tab DAILY GTB Last administered on 08/30/16 08:57; Admin Dose 1 TAB; Start 08/02/16 at 09:00 Lorazepam (Ativan) 1 mg Q6H PRN GTB ANXIETY Last administered on 08/18/16at 10: 45; Admin Dose 1 MG; Start 08/02/16 at 09:00 Multivit/Ca Carb/ B Cmplx/FA/Prenat (Cheryl-Darcie) 1 tab DAILY GTB Last administered on 08/30/16 08:58; Admin Dose 1 TAB; Start 08/02/16 at 09:00 Aspirin (Aspirin) 81 mg DAILY GTB Last administered on 08/30/16 08:57; Admin Dose 81 MG; Start 08/02/16 at 09:00 Lansoprazole (Prevacid) 30 mg DAILY@06 GTB Last administered on 08/30/16 06:08 ; Admin Dose 30 MG; Start 08/02/16 at 10:00 Sildenafil Citrate (Revatio) 20 mg BID PO Last administered on 08/30/16 08:57 ; Admin Dose 20 MG; Start 08/08/16 at 21:00; Status Future hold Lorazepam (Ativan) 0.5 mg Q4 PRN IV ANXIETY Last administered on 08/30/16 00: 05; Admin Dose 0.5 MG; Start 08/09/16 at 00:00 Methylprednisolone Sodium Succinate (Solu-Medrol) 20 mg DAILY IV Last administered on 08/30/16 08:57; Admin Dose 20 MG; Start 08/10/16 at 09:00 Miscellaneous Information 1 ea NOTE XX ; Start 08/11/16 at 12:00 Glucose (Glutose) 15 gm Q15M PRN PO DECREASED GLUCOSE; Start 08/11/16 at 12:00 Glucose (Glutose) 22.5 gm Q15M PRN PO DECREASED GLUCOSE; Start 08/11/16 at 12: 00 Dextrose (D50w Syringe) 25 ml Q15M PRN IV DECREASED GLUCOSE Last administered on 08/24/16 12:54; Admin Dose 25 ML; Start 08/11/16 at 12:00 Dextrose (D50w Syringe) 50 ml Q15M PRN IV DECREASED GLUCOSE; Start 08/11/16 at 12:00 Glucagon (Glucagen) 1 mg Q15M PRN IM DECREASED GLUCOSE; Start 08/11/16 at 12: 00 Glucose (Glutose) 15 gm Q15M PRN BUCCAL DECREASED GLUCOSE; Start 08/11/16 at 12:00 IV Flush (NS 10 ml) 10 ml PRN PRN IV IV PROTOCOL Last administered on 05:59; Admin Dose 10 ML; Start 08/13/16 at 18:00 Collagenase (Santyl) 1 applic DAILY@22 TOP Last administered on 08/29/16 22:52 ; Admin Dose 1 APPLIC; Start 08/15/16 at 22:00 Insulin Glargine (Lantus) 25 unit QAM SC Last administered on 08/30/16 09:13; Admin Dose 25 UNIT; Start 08/18/16 at 09:00 Acyclovir (Zovirax) 200 mg BID GTB Last administered on 08/30/16 08:57; Admin Dose 200 MG; Start 08/25/16 at 21:00; Stop 08/30/16 at 20:59 Insulin Aspart (Novolog Insulin Pen) NOVOLOG *MODERATE* ALGORI... Q6 SC ; Start 08/30/16 at 18:00 Solo Leon DO Aug 30, 2016 14:24
--- NOTE | 2016-08-30 16:23 | PN ---
Date/Time of Note Date/Time of Note DATE: 08/30/16 TIME: 16:19 Assessment/Plan Lines/Catheters IV C[facility]ter Type (from [facility]): PICC Line Urinary Cath still in place: No Assessment/Plan Assessment/Plan 1. Acute hypoxemic respiratory failure, status post tracheostomy. The patient is followed by Dr. Andrews in pulmonology consultation. 2. Possible pneumonia. Is status post treatment with antibiotics. The patient is followed by Dr. Hammer. 3. End-stage renal disease on hemodialysis. The patient is followed by Dr. Bassett in nephrology consultation. Continue hemodialysis per nephrology. 3. Diastolic congestive heart failure. Continue fluid removal with dialysis. 4. Dysphagia with percutaneous endoscopic gastrostomy placement. Continue to monitor residual. 5. 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 Continue on acyclovir. 6. Diabetes mellitus. Continue Lantus and NovoLog. 7. Pulmonary hypertension. Continue patient on Revatio. 8. Hyperlipidemia. Continue Lipitor. 9. Peripheral arterial disease status post amputation. 10. Sacral decubitus stage II. Continue current wound care, offloading. 11. Hypophosphatemia- monitor labs. Further recommendations based on clinical course. Plan of care discussed with Dr. Miramontes. Subjective 24 Hr Interval Summary Free Text/Dictation NAD, HD today- 2.5 Liters removed. Low H/H- will get 2 units PRBC today. DW staff. Exam/Review of Systems Vital Signs Vitals Vital Signs Date Time Temp Pulse Resp B/P Pulse Ox O2 Delivery O2 Flow Rate FiO2 08/30/16 15:30 74 22 99 40 08/30/16 15:10 97.9 125/68 08/29/16 04:30 Mechanical Ventilator Intake and Output 08/29/16 08/29/16 08/30/16 15:00 23:00 07:00 Intake Total 560 ml 560 ml Output Total 100 ml 200 ml Balance 460 ml 360 ml Exam Constitutional: alert, well developed Psych: nl mood/affect Eyes: PERRL, nl sclera ENMT: nl external ears & nose Neck: non-tender Respiratory: diminished breath sounds Cardiovascular: nl pulses Gastrointestinal: non-tender, soft Musculoskeletal: other Extremities: normal pulses Neurological: confused Lymph: nontender Results Result Diagram: 08/30/1660408/30/16604 Results 24 hrs Laboratory Tests Test 1/11/17 17:24 08/29/16 20:09 08/30/16 00:57 08/30/16 05:13 Bedside Glucose 212 204 202 183 Test 08/30/16 06:05 08/30/16 09:05 Anion Gap 13 Basophils # 0.0 Basophils % 0.0 Blood Morphology Comment Blood Urea Nitrogen 54 H Calcium Level 7.8 L Carbon Dioxide Level 29 Chloride Level 98 Creatinine 2.80 H Eosinophils # 0.0 Eosinophils % 0.5 Glucose Level 170 Hematocrit 23.4 L Hemoglobin 7.9 L Lymphocytes # 0.7 L Lymphocytes % 10.9 L Mean Corpuscular Hemoglobin 32.9 Mean Corpuscular Hemoglobin Concent 33.6 Mean Corpuscular Volume 97.8 Mean Platelet Volume 7.9 Monocytes # 0.5 Monocytes % 8.3 Neutrophils # 5.0 Neutrophils % 80.3 H Nucleated Red Blood Cells # 0.0 Nucleated Red Blood Cells % 0.0 Phosphorus Level 2.2 L Platelet Count 88 L Potassium Level 3.7 Red Blood Count 2.39 L Red Cell Distribution Width 17.8 H Sodium Level 136 White Blood Count 6.2 Bedside Glucose 183 Medications Medications Current Medications Fluticasone Propionate (Flonase 0.05% Nasal) 1 spray BID NASAL Last administered on 08/30/16 09:02; Admin Dose 1 SPRAY; Start 07/26/16 at 10:00 Epoetin [place] (Epogen (Esrd)) 10,000 units MoWeFr@17 SC Last administered on 17:39; Admin Dose 10,000 UNITS; Start 07/27/16 at 17:00; Status Future hold Hydralazine HCl (Apresoline) 10 mg Q6H PRN IV ELEVATED BLOOD PRESSURE Last administered on 08/29/16 17:39; Admin Dose 10 MG; Start 07/29/16 at 13:00 Acetaminophen (Tylenol Tab) 650 mg Q6H PRN GTB PAIN1-3/FEVER ABOVE 100 Last administered on 08/12/16at 06:07; Admin Dose 650 MG; Start 08/02/16 at 15:00 Atorvastatin Calcium (Lipitor) 40 mg HS GTB Last administered on 08/29/16 22: 52; Admin Dose 40 MG; Start 08/02/16 at 21:00 Carvedilol (Coreg) 6.25 mg BID GTB Last administered on 08/29/16 22:52; Admin Dose 6.25 MG; Start 08/02/16 at 09:00; Status Future hold Duloxetine HCl (Cymbalta) 90 mg DAILY GTB Last administered on 08/30/16 08:57 ; Admin Dose 90 MG; Start 08/02/16 at 09:00 Guaifenesin (Robitussin Liquid Cup) 100 mg Q4 PRN GTB COUGH; Start 08/02/16 at 09:00 Acetaminophen/ Hydrocodone Bitart ([place] (5/325)) 1 tab Q4 PRN GTB WSOB Last administered on 08/29/16 22:59; Admin Dose 1 TAB; Start 08/02/16 at 09:00 Lactobacillus Acidoph/Bulgaricus (Floranex) 1 tab DAILY GTB Last administered on 08/30/16 08:57; Admin Dose 1 TAB; Start 08/02/16 at 09:00 Lorazepam (Ativan) 1 mg Q6H PRN GTB ANXIETY Last administered on 08/18/16at 10: 45; Admin Dose 1 MG; Start 08/02/16 at 09:00 Multivit/Ca Carb/ B Cmplx/FA/Prenat (Cheryl-Darcie) 1 tab DAILY GTB Last administered on 08/30/16 08:58; Admin Dose 1 TAB; Start 08/02/16 at 09:00 Aspirin (Aspirin) 81 mg DAILY GTB Last administered on 08/30/16 08:57; Admin Dose 81 MG; Start 08/02/16 at 09:00 Lansoprazole (Prevacid) 30 mg DAILY@06 GTB Last administered on 08/30/16 06:08 ; Admin Dose 30 MG; Start 08/02/16 at 10:00 Sildenafil Citrate (Revatio) 20 mg BID PO Last administered on 08/30/16 08:57 ; Admin Dose 20 MG; Start 08/08/16 at 21:00; Status Future hold Lorazepam (Ativan) 0.5 mg Q4 PRN IV ANXIETY Last administered on 08/30/16 00: 05; Admin Dose 0.5 MG; Start 08/09/16 at 00:00 Methylprednisolone Sodium Succinate (Solu-Medrol) 20 mg DAILY IV Last administered on 08/30/16 08:57; Admin Dose 20 MG; Start 08/10/16 at 09:00 Miscellaneous Information 1 ea NOTE XX ; Start 08/11/16 at 12:00 Glucose (Glutose) 15 gm Q15M PRN PO DECREASED GLUCOSE; Start 08/11/16 at 12:00 Glucose (Glutose) 22.5 gm Q15M PRN PO DECREASED GLUCOSE; Start 08/11/16 at 12: 00 Dextrose (D50w Syringe) 25 ml Q15M PRN IV DECREASED GLUCOSE Last administered on 08/24/16 12:54; Admin Dose 25 ML; Start 08/11/16 at 12:00 Dextrose (D50w Syringe) 50 ml Q15M PRN IV DECREASED GLUCOSE; Start 08/11/16 at 12:00 Glucagon (Glucagen) 1 mg Q15M PRN IM DECREASED GLUCOSE; Start 08/11/16 at 12: 00 Glucose (Glutose) 15 gm Q15M PRN BUCCAL DECREASED GLUCOSE; Start 08/11/16 at 12:00 IV Flush (NS 10 ml) 10 ml PRN PRN IV IV PROTOCOL Last administered on 05:59; Admin Dose 10 ML; Start 08/13/16 at 18:00 Collagenase (Santyl) 1 applic DAILY@22 TOP Last administered on 08/29/16 22:52 ; Admin Dose 1 APPLIC; Start 08/15/16 at 22:00 Insulin Glargine (Lantus) 25 unit QAM SC Last administered on 08/30/16 09:13; Admin Dose 25 UNIT; Start 08/18/16 at 09:00 Acyclovir (Zovirax) 200 mg BID GTB Last administered on 08/30/16 08:57; Admin Dose 200 MG; Start 08/25/16 at 21:00; Stop 08/30/16 at 20:59 Insulin Aspart (Novolog Insulin Pen) NOVOLOG *MODERATE* ALGORI... Q6 SC ; Start 08/30/16 at 18:00 GRACIE KATHLEEN Aug 30, 2016 16:23
--- NOTE | 2016-08-30 16:29 | CONS ---
Date/Time of Note Date/Time of Note DATE: 08/30/16 TIME: 16:28 Assessment/Plan Assessment/Plan Chief Complaint/Hosp Course assessment/impression: - VDRF s/p trach - h/o aspiration PNA: respiratory Cx on 08/10 grew MSSA and C. Albicans - h/o septic shock - h/o C diff colitis, last C diff test on 08/24/2016 negative - h/o intermittent fever - h/o RUE cellulitis complicated by axillary/cephalic venous thrombosis - toxic metabolic encephalopathy - ESRD on HD - Diastolic CHF, CAD with Hx PCI, paroxysmal atrial tachycardia - Old partial DVT of the right internal jugular vein. - PAD s/p BKA - underlying Parkinson's disease - Stage 2 coccyx decub - PCN allergic - G tube dependent - thrombocytopenia - borderline positive [id number] level. 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 - s/p imipenem (08/05- 08/14), IV vanco (07/29-08/13), aztreonam (07/29-08/05), cefazolin (08/14-08/23), caspo (08/11-08/23) recommendations: - complete 5 day course of renally dosed acyclovir for HSV infection on the face (08/25/2016-08/30/2016) Problems: Consultation Date/Type/Reason Admit Date/Time Jul 26, 2016 at 01:55 Initial Consult Date 07/29/16 Type of Consultation: cv Referring Provider: GRACIE KATHLEEN Exam/Review of Systems Vital Signs Vitals Vital Signs Date Time Temp Pulse Resp B/P Pulse Ox O2 Delivery O2 Flow Rate FiO2 08/30/16 15:30 74 22 99 40 08/30/16 15:10 97.9 125/68 08/29/16 04:30 Mechanical Ventilator Intake and Output 08/29/16 08/29/16 08/30/16 15:00 23:00 07:00 Intake Total 560 ml 560 ml Output Total 100 ml 200 ml Balance 460 ml 360 ml Exam Constitutional: alert, oriented, well developed Head: atraumatic, normocephalic Eyes: EOMI, PERRL, nl conjunctiva, nl lids, nl sclera Respiratory: clear to auscultation, normal air movement Cardiovascular: nl pulses, regular rate and rhythm Gastrointestinal: nl liver, spleen, non-tender, soft Neurological: BLOOD B[employer] MA[employer]GER II-XII intact, nl mental status, nl speech, nl strength Results Result Diagram: 08/30/1660408/30/16 0605 Results 24 hrs Laboratory Tests Test 08/29/16 17:24 08/29/16 20:09 08/30/16 00:57 08/30/16 05:13 Bedside Glucose 212 204 202 183 Test 08/30/16 06:05 08/30/16 09:05 Anion Gap 13 Basophils # 0.0 Basophils % 0.0 Blood Morphology Comment Blood Urea Nitrogen 54 H Calcium Level 7.8 L Carbon Dioxide Level 29 Chloride Level 98 Creatinine 2.80 H Eosinophils # 0.0 Eosinophils % 0.5 Glucose Level 170 Hematocrit 23.4 L Hemoglobin 7.9 L Lymphocytes # 0.7 L Lymphocytes % 10.9 L Mean Corpuscular Hemoglobin 32.9 Mean Corpuscular Hemoglobin Concent 33.6 Mean Corpuscular Volume 97.8 Mean Platelet Volume 7.9 Monocytes # 0.5 Monocytes % 8.3 Neutrophils # 5.0 Neutrophils % 80.3 H Nucleated Red Blood Cells # 0.0 Nucleated Red Blood Cells % 0.0 Phosphorus Level 2.2 L Platelet Count 88 L Potassium Level 3.7 Red Blood Count 2.39 L Red Cell Distribution Width 17.8 H Sodium Level 136 White Blood Count 6.2 Bedside Glucose 183 Medications Medications Current Medications Fluticasone Propionate (Flonase 0.05% Nasal) 1 spray BID NASAL Last administered on 08/30/16 09:02; Admin Dose 1 SPRAY; Start 07/26/16 at 10:00 Epoetin [place] (Epogen (Esrd)) 10,000 units MoWeFr@17 SC Last administered on 17:39; Admin Dose 10,000 UNITS; Start 07/27/16 at 17:00; Status Future hold Hydralazine HCl (Apresoline) 10 mg Q6H PRN IV ELEVATED BLOOD PRESSURE Last administered on 08/29/16 17:39; Admin Dose 10 MG; Start 07/29/16 at 13:00 Acetaminophen (Tylenol Tab) 650 mg Q6H PRN GTB PAIN1-3/FEVER ABOVE 100 Last administered on 12/25/16at 06:07; Admin Dose 650 MG; Start 08/02/16 at 15:00 Atorvastatin Calcium (Lipitor) 40 mg HS GTB Last administered on 08/29/16 22: 52; Admin Dose 40 MG; Start 08/02/16 at 21:00 Carvedilol (Coreg) 6.25 mg BID GTB Last administered on 08/29/16 22:52; Admin Dose 6.25 MG; Start 08/02/16 at 09:00; Status Future hold Duloxetine HCl (Cymbalta) 90 mg DAILY GTB Last administered on 08/30/16 08:57 ; Admin Dose 90 MG; Start 08/02/16 at 09:00 Guaifenesin (Robitussin Liquid Cup) 100 mg Q4 PRN GTB COUGH; Start 08/02/16 at 09:00 Acetaminophen/ Hydrocodone Bitart ([place] (5/325)) 1 tab Q4 PRN GTB WSOB Last administered on 08/29/16 22:59; Admin Dose 1 TAB; Start 08/02/16 at 09:00 Lactobacillus Acidoph/Bulgaricus (Floranex) 1 tab DAILY GTB Last administered on 08/30/16 08:57; Admin Dose 1 TAB; Start 08/02/16 at 09:00 Lorazepam (Ativan) 1 mg Q6H PRN GTB ANXIETY Last administered on 08/18/16at 10: 45; Admin Dose 1 MG; Start 08/02/16 at 09:00 Multivit/Ca Carb/ B Cmplx/FA/Prenat (Cheryl-Darcie) 1 tab DAILY GTB Last administered on 08/30/16 08:58; Admin Dose 1 TAB; Start 08/02/16 at 09:00 Aspirin (Aspirin) 81 mg DAILY GTB Last administered on 08/30/16 08:57; Admin Dose 81 MG; Start 08/02/16 at 09:00 Lansoprazole (Prevacid) 30 mg DAILY@06 GTB Last administered on 08/30/16 06:08 ; Admin Dose 30 MG; Start 08/02/16 at 10:00 Sildenafil Citrate (Revatio) 20 mg BID PO Last administered on 08/30/16 08:57 ; Admin Dose 20 MG; Start 08/08/16 at 21:00; Status Future hold Lorazepam (Ativan) 0.5 mg Q4 PRN IV ANXIETY Last administered on 08/30/16 00: 05; Admin Dose 0.5 MG; Start 08/09/16 at 00:00 Methylprednisolone Sodium Succinate (Solu-Medrol) 20 mg DAILY IV Last administered on 08/30/16 08:57; Admin Dose 20 MG; Start 08/10/16 at 09:00 Miscellaneous Information 1 ea NOTE XX ; Start 08/11/16 at 12:00 Glucose (Glutose) 15 gm Q15M PRN PO DECREASED GLUCOSE; Start 08/11/16 at 12:00 Glucose (Glutose) 22.5 gm Q15M PRN PO DECREASED GLUCOSE; Start 08/11/16 at 12: 00 Dextrose (D50w Syringe) 25 ml Q15M PRN IV DECREASED GLUCOSE Last administered on 08/24/16 12:54; Admin Dose 25 ML; Start 08/11/16 at 12:00 Dextrose (D50w Syringe) 50 ml Q15M PRN IV DECREASED GLUCOSE; Start 08/11/16 at 12:00 Glucagon (Glucagen) 1 mg Q15M PRN IM DECREASED GLUCOSE; Start 08/11/16 at 12: 00 Glucose (Glutose) 15 gm Q15M PRN BUCCAL DECREASED GLUCOSE; Start 08/11/16 at 12:00 IV Flush (NS 10 ml) 10 ml PRN PRN IV IV PROTOCOL Last administered on 05:59; Admin Dose 10 ML; Start 08/13/16 at 18:00 Collagenase (Santyl) 1 applic DAILY@22 TOP Last administered on 08/29/16 22:52 ; Admin Dose 1 APPLIC; Start 08/15/16 at 22:00 Insulin Glargine (Lantus) 25 unit QAM SC Last administered on 08/30/16 09:13; Admin Dose 25 UNIT; Start 08/18/16 at 09:00 Acyclovir (Zovirax) 200 mg BID GTB Last administered on 08/30/16 08:57; Admin Dose 200 MG; Start 08/25/16 at 21:00; Stop 08/30/16 at 20:59 Insulin Aspart (Novolog Insulin Pen) NOVOLOG *MODERATE* ALGORI... Q6 SC ; Start 08/30/16 at 18:00 JOYCE SOARES MD Aug 30, 2016 16:29
--- NOTE | 2016-08-30 18:48 | PN ---
Date/Time of Note Date/Time of Note DATE: 08/30/16 TIME: 18:48 Assessment/Plan Lines/Catheters IV Catheter Type (from Nrs): PICC Line Vicente in Place (from Nrs): No Assessment/Plan Chief Complaint/Hosp Course IMPRESSION: 1. Respiratory failure. 2. Coagulopathy. 3. Anemia. RECOMMENDATIONS: SP tracheostomy Will continue supp care pulm toilet trach care Discussed with the referring physicians. Problems: Subjective 24 Hr Interval Summary Constitutional: improved Pain Control: mild Exam/Review of Systems Vital Signs Vitals Vital Signs Date Time Temp Pulse Resp B/P Pulse Ox O2 Delivery O2 Flow Rate FiO2 08/30/16 17:22 78 22 98 40 08/30/16 15:10 97.9 125/68 08/29/16 04:30 Mechanical Ventilator Intake and Output 08/29/16 08/29/16 08/30/16 15:00 23:00 07:00 Intake Total 560 ml 560 ml Output Total 100 ml 200 ml Balance 460 ml 360 ml Exam Neck: non-tender, supple Respiratory: clear to auscultation, normal air movement Cardiovascular: nl pulses, regular rate and rhythm Gastrointestinal: nl liver, spleen, non-tender, soft Results Result Diagram: 08/30/1660408/30/16604 SAUL HUMPHREY MD Aug 30, 2016 18:48
[2016-08-30] MEDS: COLLAGENASE 30 GM TUBE TOP SCH (23:43)
[2016-08-30] MEDS: ATORVASTATIN 40 MG TAB GTB SCH (23:43)
[2016-08-31] VITALS (22 sets, daily range): BP systolic 111–138; BP diastolic 44–61; PULSE 70–94; RESP 18–24
[2016-08-31] MEDS: INSULIN ASPART [NOVOLOG] 3 ML PEN SC SCH ×4 (01:36→17:21)
[2016-08-31] MEDS: ALBUTEROL HFA 8 GM INHALER INH SCH ×4 (02:42→19:30)
[2016-08-31] MEDS: IPRATROPIUM (HFA) 12.9 GM INHALER INH SCH ×4 (02:42→19:30)
[2016-08-31] MEDS: LANSOPRAZOLE 30 MG CAP GTB SCH (05:55)
[2016-08-31 06:22] LABS: BASOPHILS % 0.2 % (0.0-2.0); EOSINOPHILS % 0.6 % (0.0-7.0); HEMATOCRIT 26.2 % (42.0-52.0); LYMPHOCYTES % 18.5 % (15.0-51.0); MEAN CORPUSCULAR HEMOGLOBIN 32.9 pg (29.0-33.0); MEAN CORPUSCULAR HGB CONC 34.2 g/dl (32.0-37.0); MEAN CORPUSCULAR VOLUME 96.1 fl (82.0-101.0); MONOCYTE # 0.6 10^3/ul (0.3-0.9); MONOCYTES % 10.8 % (0.0-11.0); NEUTROPHIL # 3.6 10^3/ul (1.6-7.5); NEUTROPHILS % 69.9 % (39.0-77.0); PLATELET COUNT 95 10^3/UL (140-440); RED BLOOD COUNT 2.73 10^6/ul (4.70-6.10); UNCORRECTED WBC 5.2 10^3/ul (4.8-10.8); WHITE BLOOD COUNT 5.2 10^3/ul (4.8-10.8)
[2016-08-31 06:30] LABS: POTASSIUM 3.9 mmol/L (3.5-5.1)
[2016-08-31 06:31] LABS: CONDITION 1; LH ANALYZER COMMENTS 1
[2016-08-31 06:33] LABS: CREATININE 2.14 mg/dl (0.61-1.24)
[2016-08-31 06:34] LABS: CALCIUM 7.9 mg/dl (8.4-10.2)
--- NOTE | 2016-08-31 08:23 | CONS ---
Date/Time of Note Date/Time of Note DATE: 08/31/16 TIME: 08:21 Assessment/Plan Assessment/Plan Additional Assessment/Plan 1. Status quo, on vent, trach in place 2. CKD, scheduled next hd tomm 3. Anemia, stable 4. Will check P tomm 5. Day transfer pending Consultation Date/Type/Reason Admit Date/Time Jul 26, 2016 at 01:55 Type of Consultation: cv Referring Provider: GRACIE KATHLEEN 24 HR Interval Summary Constitutional: other (on vent, trachin place, comfortable) Exam/Review of Systems Vital Signs Vitals Vital Signs Date Time Temp Pulse Resp B/P Pulse Ox O2 Delivery O2 Flow Rate FiO2 08/31/16 07:16 98.1 67 22 111/44 100 08/31/16 05:22 40 08/29/16 04:30 Mechanical Ventilator Intake and Output 08/30/16 08/30/16 08/31/16 15:00 23:00 07:00 Intake Total 200 ml 500 ml 620 ml Output Total 2200 ml 400 ml 300 ml Balance -2000 ml 100 ml 320 ml Exam Neck: No jvd Respiratory: diminished breath sounds (without wheezing or rales) Cardiovascular: regular rate and rhythm Gastrointestinal: soft Extremities: No edema Results Result Diagram: 08/31/16 0536 08/31/16 0536 Results 24 hrs Laboratory Tests Test 08/30/16 09:05 08/30/16 17:14 08/30/16 20:41 08/31/16 01:33 Bedside Glucose 183 170 164 148 Test 08/31/16 05:36 08/31/16 05:47 Anion Gap 16 Basophils # 0.0 Basophils % 0.2 Blood Morphology Comment Blood Urea Nitrogen 44 H Calcium Level 7.9 L Carbon Dioxide Level 29 Chloride Level 95 L Creatinine 2.14 H Eosinophils # 0.0 Eosinophils % 0.6 Glucose Level 122 # Hematocrit 26.2 L Hemoglobin 9.0 L Lymphocytes # 1.0 Lymphocytes % 18.5 Mean Corpuscular Hemoglobin 32.9 Mean Corpuscular Hemoglobin Concent 34.2 Mean Corpuscular Volume 96.1 Mean Platelet Volume 8.0 Monocytes # 0.6 Monocytes % 10.8 Neutrophils # 3.6 Neutrophils % 69.9 Nucleated Red Blood Cells # 0.0 Nucleated Red Blood Cells % 0.0 Platelet Count 95 L Potassium Level 3.9 Red Blood Count 2.73 L Red Cell Distribution Width 19.0 H Sodium Level 136 White Blood Count 5.2 Bedside Glucose 151 Medications Medications Current Medications Fluticasone Propionate (Flonase 0.05% Nasal) 1 spray BID NASAL Last administered on 08/30/16 23:44; Admin Dose 1 SPRAY; Start 07/26/16 at 10:00 Epoetin [place] (Epogen (Esrd)) 10,000 units MoWeFr@17 SC Last administered on 17:39; Admin Dose 10,000 UNITS; Start 07/27/16 at 17:00; Status Future hold Hydralazine HCl (Apresoline) 10 mg Q6H PRN IV ELEVATED BLOOD PRESSURE Last administered on 08/29/16 17:39; Admin Dose 10 MG; Start 07/29/16 at 13:00 Acetaminophen (Tylenol Tab) 650 mg Q6H PRN GTB PAIN1-3/FEVER ABOVE 100 Last administered on 08/12/16at 06:07; Admin Dose 650 MG; Start 08/02/16 at 15:00 Atorvastatin Calcium (Lipitor) 40 mg HS GTB Last administered on 08/30/16 23: 43; Admin Dose 40 MG; Start 08/02/16 at 21:00 Carvedilol (Coreg) 6.25 mg BID GTB Last administered on 08/30/16 23:43; Admin Dose 6.25 MG; Start 08/02/16 at 09:00; Status Future hold Duloxetine HCl (Cymbalta) 90 mg DAILY GTB Last administered on 08/30/16 08:57 ; Admin Dose 90 MG; Start 08/02/16 at 09:00 Guaifenesin (Robitussin Liquid Cup) 100 mg Q4 PRN GTB COUGH; Start 08/02/16 at 09:00 Acetaminophen/ Hydrocodone Bitart ([place] (5/325)) 1 tab Q4 PRN GTB [facility]SOB Last administered on 08/29/16 22:59; Admin Dose 1 TAB; Start 08/02/16 at 09:00 Lactobacillus Acidoph/Bulgaricus (Floranex) 1 tab DAILY GTB Last administered on 08/30/16 08:57; Admin Dose 1 TAB; Start 08/02/16 at 09:00 Lorazepam (Ativan) 1 mg Q6H PRN GTB ANXIETY Last administered on 08/18/16at 10: 45; Admin Dose 1 MG; Start 08/02/16 at 09:00 Multivit/Ca Carb/ B Cmplx/FA/Prenat (Cheryl-Darcie) 1 tab DAILY GTB Last administered on 08/30/16 08:58; Admin Dose 1 TAB; Start 08/02/16 at 09:00 Aspirin (Aspirin) 81 mg DAILY GTB Last administered on 08/30/16 08:57; Admin Dose 81 MG; Start 08/02/16 at 09:00 Lansoprazole (Prevacid) 30 mg DAILY@06 GTB Last administered on 08/31/16 05:55 ; Admin Dose 30 MG; Start 08/02/16 at 10:00 Sildenafil Citrate (Revatio) 20 mg BID PO Last administered on 08/30/16 23:43 ; Admin Dose 20 MG; Start 08/08/16 at 21:00; Status Future hold Lorazepam (Ativan) 0.5 mg Q4 PRN IV ANXIETY Last administered on 08/30/16 00: 05; Admin Dose 0.5 MG; Start 08/09/16 at 00:00 Methylprednisolone Sodium Succinate (Solu-Medrol) 20 mg DAILY IV Last administered on 08/30/16 08:57; Admin Dose 20 MG; Start 08/10/16 at 09:00 Miscellaneous Information 1 ea NOTE XX ; Start 08/11/16 at 12:00 Glucose (Glutose) 15 gm Q15M PRN PO DECREASED GLUCOSE; Start 08/11/16 at 12:00 Glucose (Glutose) 22.5 gm Q15M PRN PO DECREASED GLUCOSE; Start 08/11/16 at 12: 00 Dextrose (D50w Syringe) 25 ml Q15M PRN IV DECREASED GLUCOSE Last administered on 08/24/16 12:54; Admin Dose 25 ML; Start 08/11/16 at 12:00 Dextrose (D50w Syringe) 50 ml Q15M PRN IV DECREASED GLUCOSE; Start 08/11/16 at 12:00 Glucagon (Glucagen) 1 mg Q15M PRN IM DECREASED GLUCOSE; Start 08/11/16 at 12: 00 Glucose (Glutose) 15 gm Q15M PRN BUCCAL DECREASED GLUCOSE; Start 08/11/16 at 12:00 IV Flush (NS 10 ml) 10 ml PRN PRN IV IV PROTOCOL Last administered on 05:59; Admin Dose 10 ML; Start 08/13/16 at 18:00 Collagenase (Santyl) 1 applic DAILY@22 TOP Last administered on 08/30/16 23:43 ; Admin Dose 1 APPLIC; Start 08/15/16 at 22:00 Insulin Glargine (Lantus) 25 unit QAM SC Last administered on 08/30/16 09:13; Admin Dose 25 UNIT; Start 08/18/16 at 09:00 Insulin Aspart (Novolog Insulin Pen) NOVOLOG *MODERATE* ALGORI... Q6 SC Last administered on 08/31/16 06:04; Admin Dose 2 UNIT; Start 08/30/16 at 18:00 JESSICA ROSARIO MD Aug 31, 2016 08:22
[2016-08-31] MEDS: INSULIN GLARGINE [LANtus] 3 ML PEN SC SCH (09:40)
[2016-08-31] MEDS: MULTIVIT/CA CARB/B CMPLX/FA TAB GTB SCH (09:42)
[2016-08-31] MEDS: DULOXETINE 30 MG CAP DR GTB SCH (09:42)
[2016-08-31] MEDS: ASPIRIN 81 MG TAB GTB SCH (09:42)
[2016-08-31] MEDS: LACTOBACILLUS CHEW TAB GTB SCH (09:42)
[2016-08-31] MEDS: METHYLPREDNISOLONE 40 MG INJ IV SCH (09:44)
[2016-08-31] MEDS: SILDENAFIL 20 MG TAB PO SCH ×2 (09:44→22:26)
[2016-08-31] MEDS: FLUTICASONE 0.05% 16 GM NAS SPRAY NASAL SCH ×2 (09:45→22:27)
--- NOTE | 2016-08-31 12:43 | CONS ---
Date/Time of Note Date/Time of Note DATE: 08/31/16 TIME: 12:41 Assessment/Plan Assessment/Plan Additional Assessment/Plan Respiratory failure status post intubation Sepsis Minimally elevated troponin DVT Diastolic congestive heart failure End-stage renal disease on hemodialysis CAD with history of PCI Diabetes Peripheral arterial disease with history of amputation Pulmonary hypertension -Blood pressure remains well-controlled, fluid management via hemodialysis as per our nephrology colleagues, no new cardiac orders at the current time. Consultation Date/Type/Reason Admit Date/Time Jul 26, 2016 at 01:55 Type of Consultation: cv Referring Provider: GRACIE KATHLEEN 24 HR Interval Summary Free Text/Dictation Patient seen and examined Exam/Review of Systems Vital Signs Vitals Vital Signs Date Time Temp Pulse Resp B/P Pulse Ox O2 Delivery O2 Flow Rate FiO2 08/31/16 11:11 98.1 65 21 113/48 98 08/31/16 09:35 40 08/29/16 04:30 Mechanical Ventilator Intake and Output 08/30/16 08/30/16 08/31/16 14:59 22:59 06:59 Intake Total 200 ml 500 ml 620 ml Output Total 2200 ml 400 ml 300 ml Balance -2000 ml 100 ml 320 ml Exam Awake, no apparent distress, occasionally following commands Head: normocephalic Neck: other (tracheostomy) Respiratory: other (course breath sounds bilaterally, no wheezing) Cardiovascular: other (S1 and S2 heard), regular rate and rhythm Gastrointestinal: bowel sounds, non-tender, soft Extremities: edema Results Result Diagram: 08/31/16 0536 08/31/16 0536 Results 24 hrs Laboratory Tests Test 08/30/16 17:14 08/30/16 20:41 08/31/16 01:33 08/31/16 05:36 Bedside Glucose 170 164 148 Anion Gap 16 Basophils # 0.0 Basophils % 0.2 Blood Morphology Comment Blood Urea Nitrogen 44 H Calcium Level 7.9 L Carbon Dioxide Level 29 Chloride Level 95 L Creatinine 2.14 H Eosinophils # 0.0 Eosinophils % 0.6 Glucose Level 122 # Hematocrit 26.2 L Hemoglobin 9.0 L Lymphocytes # 1.0 Lymphocytes % 18.5 Mean Corpuscular Hemoglobin 32.9 Mean Corpuscular Hemoglobin Concent 34.2 Mean Corpuscular Volume 96.1 Mean Platelet Volume 8.0 Monocytes # 0.6 Monocytes % 10.8 Neutrophils # 3.6 Neutrophils % 69.9 Nucleated Red Blood Cells # 0.0 Nucleated Red Blood Cells % 0.0 Platelet Count 95 L Potassium Level 3.9 Red Blood Count 2.73 L Red Cell Distribution Width 19.0 H Sodium Level 136 White Blood Count 5.2 Test 08/31/16 05:47 08/31/16 09:38 08/31/16 12:06 Bedside Glucose 151 146 186 Medications Medications Current Medications Fluticasone Propionate (Flonase 0.05% Nasal) 1 spray BID NASAL Last administered on 08/31/16 09:45; Admin Dose 1 SPRAY; Start 07/26/16 at 10:00 Epoetin [place] (Epogen (Esrd)) 10,000 units MoWeFr@17 SC Last administered on 17:39; Admin Dose 10,000 UNITS; Start 07/27/16 at 17:00; Status Future hold Hydralazine HCl (Apresoline) 10 mg Q6H PRN IV ELEVATED BLOOD PRESSURE Last administered on 08/29/16 17:39; Admin Dose 10 MG; Start 07/29/16 at 13:00 Acetaminophen (Tylenol Tab) 650 mg Q6H PRN GTB PAIN1-3/FEVER ABOVE 100 Last administered on 08/12/16at 06:07; Admin Dose 650 MG; Start 08/02/16 at 15:00 Atorvastatin Calcium (Lipitor) 40 mg HS GTB Last administered on 08/30/16 23: 43; Admin Dose 40 MG; Start 08/02/16 at 21:00 Carvedilol (Coreg) 6.25 mg BID GTB Last administered on 08/31/16 09:43; Admin Dose 6.25 MG; Start 08/02/16 at 09:00; Status Future hold Duloxetine HCl (Cymbalta) 90 mg DAILY GTB Last administered on 08/31/16 09:42 ; Admin Dose 90 MG; Start 08/02/16 at 09:00 Guaifenesin (Robitussin Liquid Cup) 100 mg Q4 PRN GTB COUGH; Start 08/02/16 at 09:00 Acetaminophen/ Hydrocodone Bitart ([place] (5/325)) 1 tab Q4 PRN GTB WSOB Last administered on 08/29/16 22:59; Admin Dose 1 TAB; Start 08/02/16 at 09:00 Lactobacillus Acidoph/Bulgaricus (Floranex) 1 tab DAILY GTB Last administered on 08/31/16 09:42; Admin Dose 1 TAB; Start 08/02/16 at 09:00 Lorazepam (Ativan) 1 mg Q6H PRN GTB ANXIETY Last administered on 08/18/16at 10: 45; Admin Dose 1 MG; Start 08/02/16 at 09:00 Multivit/Ca Carb/ B Cmplx/FA/Prenat (Cheryl-Darcie) 1 tab DAILY GTB Last administered on 08/31/16 09:42; Admin Dose 1 TAB; Start 08/02/16 at 09:00 Aspirin (Aspirin) 81 mg DAILY GTB Last administered on 08/31/16 09:42; Admin Dose 81 MG; Start 08/02/16 at 09:00 Lansoprazole (Prevacid) 30 mg DAILY@06 GTB Last administered on 08/31/16 05:55 ; Admin Dose 30 MG; Start 08/02/16 at 10:00 Sildenafil Citrate (Revatio) 20 mg BID PO Last administered on 08/31/16 09:44 ; Admin Dose 20 MG; Start 08/08/16 at 21:00; Status Future hold Lorazepam (Ativan) 0.5 mg Q4 PRN IV ANXIETY Last administered on 08/30/16 00: 05; Admin Dose 0.5 MG; Start 08/09/16 at 00:00 Methylprednisolone Sodium Succinate (Solu-Medrol) 20 mg DAILY IV Last administered on 08/31/16 09:44; Admin Dose 20 MG; Start 08/10/16 at 09:00 Miscellaneous Information 1 ea NOTE XX ; Start 08/11/16 at 12:00 Glucose (Glutose) 15 gm Q15M PRN PO DECREASED GLUCOSE; Start 08/11/16 at 12:00 Glucose (Glutose) 22.5 gm Q15M PRN PO DECREASED GLUCOSE; Start 08/11/16 at 12: 00 Dextrose (D50w Syringe) 25 ml Q15M PRN IV DECREASED GLUCOSE Last administered on 08/24/16 12:54; Admin Dose 25 ML; Start 08/11/16 at 12:00 Dextrose (D50w Syringe) 50 ml Q15M PRN IV DECREASED GLUCOSE; Start 08/11/16 at 12:00 Glucagon (Glucagen) 1 mg Q15M PRN IM DECREASED GLUCOSE; Start 08/11/16 at 12: 00 Glucose (Glutose) 15 gm Q15M PRN BUCCAL DECREASED GLUCOSE; Start 08/11/16 at 12:00 IV Flush (NS 10 ml) 10 ml PRN PRN IV IV PROTOCOL Last administered on 05:59; Admin Dose 10 ML; Start 08/13/16 at 18:00 Collagenase (Santyl) 1 applic DAILY@22 TOP Last administered on 08/30/16 23:43 ; Admin Dose 1 APPLIC; Start 08/15/16 at 22:00 Insulin Glargine (Lantus) 25 unit QAM SC Last administered on 08/31/16 09:40; Admin Dose 25 UNIT; Start 08/18/16 at 09:00 Insulin Aspart (Novolog Insulin Pen) NOVOLOG *MODERATE* ALGORI... Q6 SC Last administered on 08/31/16 12:08; Admin Dose 4 UNIT; Start 08/30/16 at 18:00 Solo Leon DO Aug 31, 2016 12:43
--- NOTE | 2016-08-31 15:07 | PN ---
DATE: 08/31/2016 SUBJECTIVE: This is a pulmonary followup. Chart reviewed. Events noted. Patient currently on 40% FIO2, saturating 98% and does not appear in acute distress. PHYSICAL EXAMINATION: VITAL SIGNS: Blood pressure 113/48, pulse 65, respirations 21, temperature 98.1. HEENT: Pupils are equal and reactive to light. Anicteric sclerae. NECK: Supple, no JVD noted, no cervical adenopathy, no carotid bruits heard. LUNGS: Fair breath sounds bilaterally. CARDIOVASCULAR: S1, S2 normal. ABDOMEN: Soft, nontender. No organomegaly or masses noted. EXTREMITIES: No clubbing or cyanosis noted. NEUROLOGIC: No changes. LABORATORY DATA: WBC 5.8, hemoglobin 9, hematocrit 26.2, platelets 75. Sodium 136, potassium 3.9, chloride 95, CO2 of 29, BUN 44, creatinine 2.14, glucose 122. IMPRESSION: 1. Ventilator-dependent respiratory failure, hypoxemic. 2. End-stage renal disease on hemodialysis. 3. Pulmonary edema. 4. Possible aspiration pneumonia. RECOMMENDATIONS: 1. Continue current treatment. 2. Continue vent support. 3. Hemodialysis per nephrology. 4. Cardiology followup noted. 5. Antibiotics per infectious disease. Dictated By: EMILEE ORANTES MD, MA/OLESYA Conf#: [id number] DID#: [id number]
--- NOTE | 2016-08-31 16:49 | CONS ---
Date/Time of Note Date/Time of Note DATE: 08/31/16 TIME: 16:48 Assessment/Plan Assessment/Plan Chief Complaint/Hosp Course - VDRF s/p trach - S/p aspiration PNA: respiratory Cx on 08/10 grew MSSA and C. 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 - PAD Hx Left BKA - underlying Parkinson's disease - stage 2 coccyx decub - PCN allergic - dysphagia d/p G tube - thrombocytopenia - borderline positive [id number] level. 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 Alexander Problems: Consultation Date/Type/Reason Admit Date/Time Jul 26, 2016 at 01:55 Initial Consult Date 07/29/16 Type of Consultation: Infectious Disease Referring Provider: GRACIE KATHLEEN 24 HR Interval Summary Free Text/Dictation Remains afebrile, was transfused one unit PRBC yesterday, going for HD in AM, and still awaiting subacute placement per JUAN MIGUEL Moreno. ROS limited d/t encephalopathy. Exam/Review of Systems Vital Signs Vitals Vital Signs Date Time Temp Pulse Resp B/P Pulse Ox O2 Delivery O2 Flow Rate FiO2 08/31/16 16:26 85 08/31/16 15:47 22 98 40 08/31/16 15:10 98.1 123/59 08/29/16 04:30 Mechanical Ventilator Intake and Output 08/30/16 08/30/16 08/31/16 15:00 23:00 07:00 Intake Total 200 ml 500 ml 620 ml Output Total 2200 ml 400 ml 300 ml Balance -2000 ml 100 ml 320 ml Exam Constitutional: frail, other (chronically debilitated), Head: atraumatic, normocephalic Neck: other (trach midline without leak) Respiratory: Diminished breath sounds, otherwise clear. No wheezing Cardiovascular: regular rate and rhythm, normal S1 and S2 Gastrointestinal: soft, bowel sounds present, other (GT with TF intact; rectal tube intact with loose stool). Extremities: edema, other (LLE BKA noted; LUE AVF with + bruit/thrill; left middle finger partial amputation noted) Neurological: More alert; Selectively follows command. Eyes open, +tracking. Skin: ecchymosis (scattered BUE), nl turgor, other (RUE PICC c/d/i). Wound ( coccyx stage 2 with dressing c/d/i and perianal area with dermatitis d/t incontinence - See Nurses note for details), Other (Few blisters/vesicles on left cheek). Results Result Diagram: 08/31/16 0536 08/31/16 0536 Results 24 hrs Laboratory Tests Test 08/30/16 17:14 08/30/16 20:41 08/31/16 01:33 08/31/16 05:36 Bedside Glucose 170 164 148 Anion Gap 16 Basophils # 0.0 Basophils % 0.2 Blood Morphology Comment Blood Urea Nitrogen 44 H Calcium Level 7.9 L Carbon Dioxide Level 29 Chloride Level 95 L Creatinine 2.14 H Eosinophils # 0.0 Eosinophils % 0.6 Glucose Level 122 # Hematocrit 26.2 L Hemoglobin 9.0 L Lymphocytes # 1.0 Lymphocytes % 18.5 Mean Corpuscular Hemoglobin 32.9 Mean Corpuscular Hemoglobin Concent 34.2 Mean Corpuscular Volume 96.1 Mean Platelet Volume 8.0 Monocytes # 0.6 Monocytes % 10.8 Neutrophils # 3.6 Neutrophils % 69.9 Nucleated Red Blood Cells # 0.0 Nucleated Red Blood Cells % 0.0 Platelet Count 95 L Potassium Level 3.9 Red Blood Count 2.73 L Red Cell Distribution Width 19.0 H Sodium Level 136 White Blood Count 5.2 Test 08/31/16 05:47 08/31/16 09:38 08/31/16 12:06 Bedside Glucose 151 146 186 Medications Medications Current Medications Fluticasone Propionate (Flonase 0.05% Nasal) 1 spray BID NASAL Last administered on 08/31/16 09:45; Admin Dose 1 SPRAY; Start 07/26/16 at 10:00 Epoetin [place] (Epogen (Esrd)) 10,000 units MoWeFr@17 SC Last administered on 17:39; Admin Dose 10,000 UNITS; Start 07/27/16 at 17:00; Status Future hold Hydralazine HCl (Apresoline) 10 mg Q6H PRN IV ELEVATED BLOOD PRESSURE Last administered on 08/29/16 17:39; Admin Dose 10 MG; Start 07/29/16 at 13:00 Acetaminophen (Tylenol Tab) 650 mg Q6H PRN GTB PAIN1-3/FEVER ABOVE 100 Last administered on 08/12/16 06:07; Admin Dose 650 MG; Start 08/02/16 at 15:00 Atorvastatin Calcium (Lipitor) 40 mg HS GTB Last administered on 08/30/16 23: 43; Admin Dose 40 MG; Start 08/02/16 at 21:00 Carvedilol (Coreg) 6.25 mg BID GTB Last administered on 08/31/16 09:43; Admin Dose 6.25 MG; Start 08/02/16 at 09:00; Status Future hold Duloxetine HCl (Cymbalta) 90 mg DAILY GTB Last administered on 08/31/16 09:42 ; Admin Dose 90 MG; Start 08/02/16 at 09:00 Guaifenesin (Robitussin Liquid Cup) 100 mg Q4 PRN GTB COUGH; Start 08/02/16 at 09:00 Acetaminophen/ Hydrocodone Bitart ([place] (5/325)) 1 tab Q4 PRN GTB WSOB Last administered on 08/29/16 22:59; Admin Dose 1 TAB; Start 08/02/16 at 09:00 Lactobacillus Acidoph/Bulgaricus (Floranex) 1 tab DAILY GTB Last administered on 08/31/16 09:42; Admin Dose 1 TAB; Start 08/02/16 at 09:00 Lorazepam (Ativan) 1 mg Q6H PRN GTB ANXIETY Last administered on 08/18/16at 10: 45; Admin Dose 1 MG; Start 08/02/16 at 09:00 Multivit/Ca Carb/ B Cmplx/FA/Prenat (Cheryl-Darcie) 1 tab DAILY GTB Last administered on 08/31/16 09:42; Admin Dose 1 TAB; Start 08/02/16 at 09:00 Aspirin (Aspirin) 81 mg DAILY GTB Last administered on 08/31/16 09:42; Admin Dose 81 MG; Start 08/02/16 at 09:00 Lansoprazole (Prevacid) 30 mg DAILY@06 GTB Last administered on 08/31/16 05:55 ; Admin Dose 30 MG; Start 08/02/16 at 10:00 Sildenafil Citrate (Revatio) 20 mg BID PO Last administered on 08/31/16 09:44 ; Admin Dose 20 MG; Start 08/08/16 at 21:00; Status Future hold Lorazepam (Ativan) 0.5 mg Q4 PRN IV ANXIETY Last administered on 08/30/16 00: 05; Admin Dose 0.5 MG; Start 08/09/16 at 00:00 Methylprednisolone Sodium Succinate (Solu-Medrol) 20 mg DAILY IV Last administered on 08/31/16 09:44; Admin Dose 20 MG; Start 08/10/16 at 09:00 Miscellaneous Information 1 ea NOTE XX ; Start 08/11/16 at 12:00 Glucose (Glutose) 15 gm Q15M PRN PO DECREASED GLUCOSE; Start 08/11/16 at 12:00 Glucose (Glutose) 22.5 gm Q15M PRN PO DECREASED GLUCOSE; Start 08/11/16 at 12: 00 Dextrose (D50w Syringe) 25 ml Q15M PRN IV DECREASED GLUCOSE Last administered on 08/24/16 12:54; Admin Dose 25 ML; Start 08/11/16 at 12:00 Dextrose (D50w Syringe) 50 ml Q15M PRN IV DECREASED GLUCOSE; Start 08/11/16 at 12:00 Glucagon (Glucagen) 1 mg Q15M PRN IM DECREASED GLUCOSE; Start 08/11/16 at 12: 00 Glucose (Glutose) 15 gm Q15M PRN BUCCAL DECREASED GLUCOSE; Start 08/11/16 at 12:00 IV Flush (NS 10 ml) 10 ml PRN PRN IV IV PROTOCOL Last administered on 05:59; Admin Dose 10 ML; Start 08/13/16 at 18:00 Collagenase (Santyl) 1 applic DAILY@22 TOP Last administered on 08/30/16 23:43 ; Admin Dose 1 APPLIC; Start 08/15/16 at 22:00 Insulin Glargine (Lantus) 25 unit QAM SC Last administered on 08/31/16 09:40; Admin Dose 25 UNIT; Start 08/18/16 at 09:00 Insulin Aspart (Novolog Insulin Pen) NOVOLOG *MODERATE* ALGORI... Q6 SC Last administered on 08/31/16 12:08; Admin Dose 4 UNIT; Start 08/30/16 at 18:00 JERICHO CRABTREE NP Aug 31, 2016 16:48 05; Admin Dose 0.5 MG; Start 08/09/16 at 00:00 Methylprednisolone Sodium Succinate (Solu-Medrol) 20 mg DAILY IV Last administered on 08/31/16 09:44; Admin Dose 20 MG; Start 08/10/16 at 09:00 Miscellaneous Information 1 ea NOTE XX ; Start 08/11/16 at 12:00 Glucose (Glutose) 15 gm Q15M PRN PO DECREASED GLUCOSE; Start 08/11/16 at 12:00 Glucose (Glutose) 22.5 gm Q15M PRN PO DECREASED GLUCOSE; Start 08/11/16 at 12: 00 Dextrose (D50w Syringe) 25 ml Q15M PRN IV DECREASED GLUCOSE Last administered on 08/24/16 12:54; Admin Dose 25 ML; Start 08/11/16 at 12:00 Dextrose (D50w Syringe) 50 ml Q15M PRN IV DECREASED GLUCOSE; Start 08/11/16 at 12:00 Glucagon (Glucagen) 1 mg Q15M PRN IM DECREASED GLUCOSE; Start 08/11/16 at 12: 00 Glucose (Glutose) 15 gm Q15M PRN BUCCAL DECREASED GLUCOSE; Start 08/11/16 at 12:00 IV Flush (NS 10 ml) 10 ml PRN PRN IV IV PROTOCOL Last administered on 05:59; Admin Dose 10 ML; Start 08/13/16 at 18:00 Collagenase (Santyl) 1 applic DAILY@22 TOP Last administered on 08/30/16 23:43 ; Admin Dose 1 APPLIC; Start 08/15/16 at 22:00 Insulin Glargine (Lantus) 25 unit QAM SC Last administered on 08/31/16 09:40; Admin Dose 25 UNIT; Start 08/18/16 at 09:00 Insulin Aspart (Novolog Insulin Pen) NOVOLOG *MODERATE* ALGORI... Q6 SC Last administered on 08/31/16 12:08; Admin Dose 4 UNIT; Start 08/30/16 at 18:00 JERICHO CRABTREE NP Aug 31, 2016 16:48
[2016-08-31] MEDS: EPOETIN 10000 UNITS/1 ML INJ (ESRD) SC SCH (17:14)
--- NOTE | 2016-08-31 17:56 | PN ---
Date/Time of Note Date/Time of Note DATE: 08/31/16 TIME: 17:56 Assessment/Plan Lines/Catheters IV Catheter Type (from Nrsg): PICC Line Vicente in Place (from Nrsg): No Assessment/Plan Chief Complaint/Hosp Course IMPRESSION: 1. Respiratory failure. 2. Coagulopathy. 3. Anemia. RECOMMENDATIONS: SP tracheostomy Will continue supp care pulm toilet trach care Discussed with the referring physicians. Problems: Subjective 24 Hr Interval Summary Constitutional: improved Pain Control: mild Exam/Review of Systems Vital Signs Vitals Vital Signs Date Time Temp Pulse Resp B/P Pulse Ox O2 Delivery O2 Flow Rate FiO2 08/31/16 17:17 76 24 98 40 08/31/16 15:10 98.1 123/59 08/29/16 04:30 Mechanical Ventilator Intake and Output 08/30/16 08/30/16 08/31/16 15:00 23:00 07:00 Intake Total 200 ml 500 ml 620 ml Output Total 2200 ml 400 ml 300 ml Balance -2000 ml 100 ml 320 ml Exam ENMT: mucosa pink and moist, nl external ears & nose, nl lips & teeth, nl nasal mucosa & septum Neck: non-tender, supple Respiratory: clear to auscultation, normal air movement Cardiovascular: nl pulses, regular rate and rhythm Results Result Diagram: 08/31/16 0536 08/31/16 0536 SAUL HUMPHREY MD Aug 31, 2016 17:56
--- NOTE | 2016-08-31 18:51 | PN ---
Date/Time of Note Date/Time of Note DATE: 08/31/16 TIME: 18:50 Assessment/Plan VTE Prophylaxis VTE Prophylaxis Intervention: SCD's Lines/Catheters IV [facility] Type (from [facility] PICC Line Central line still needed: Yes Urinary Cath still in place: No Assessment/Plan Chief Complaint/Hosp Course ASSESSMENT AND PLAN: 1. Acute hypoxemic respiratory failure, status post tracheostomy. The patient is followed by Dr. Andrews in pulmonology consultation. 2. Possible pneumonia. status post treatment with antibiotics. The patient is followed by Dr. Hammer. 3. End-stage renal disease on hemodialysis. The patient is followed by Dr. Bassett in nephrology consultation. Continue hemodialysis per nephrology. 3. Diastolic congestive heart failure. Continue fluid removal with dialysis. 4. Dysphagia with percutaneous endoscopic gastrostomy placement. Continue to monitor residual. 5. 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 Continue on acyclovir. 6. Diabetes mellitus. Continue Lantus and NovoLog. 7. Pulmonary hypertension. Continue patient on Revatio. 8. Hyperlipidemia. Continue Lipitor. 9. Peripheral arterial disease status post amputation. 10. Sacral decubitus stage II. Continue current wound care, offloading. Pending Day placement Further recommendations based on clinical course. Plan of care discussed with Dr. Miramontes. Problems: Subjective 24 Hr Interval Summary Free Text/Dictation Patient tolerates G-tube feeding well, no nausea vomiting, comfortable on vent support. Exam/Review of Systems Vital Signs Vitals Vital Signs Date Time Temp Pulse Resp B/P Pulse Ox O2 Delivery O2 Flow Rate FiO2 08/31/16 17:17 76 24 98 40 08/31/16 15:10 98.1 123/59 08/29/16 04:30 Mechanical Ventilator Intake and Output 08/30/16 08/30/16 08/31/16 14:59 22:59 06:59 Intake Total 200 ml 500 ml 620 ml Output Total 2200 ml 400 ml 300 ml Balance -2000 ml 100 ml 320 ml Exam GENERAL: Well-developed, well-nourished male, currently on vent support. HEENT: Head is atraumatic, normocephalic. PERRLA. NECK: Supple. Tracheostomy at the base of the neck. LUNGS: Slightly diminished at the bases. Clear in the upper lobes. HEART: Normal S1, S2. No murmurs, gallops, clicks, rubs noted. ABDOMEN: Protuberant, soft, nondistended, nontender. G-tube in place. EXTREMITIES: The patient is status post left BKA. Right lower extremity with mild edema. The patient has a left upper extremity arteriovenous fistula with palpable thrill and audible bruit. SKIN: No rash, petechiae noted. NEUROLOGIC: The patient is awake, alert. Results Result Diagram: 08/31/16 0536 08/31/16 0536 Results 24 hrs Laboratory Tests Test 08/30/16 20:41 08/31/16 01:33 08/31/16 05:36 08/31/16 05:47 Bedside Glucose 164 148 151 Anion Gap 16 Basophils # 0.0 Basophils % 0.2 Blood Morphology Comment Blood Urea Nitrogen 44 H Calcium Level 7.9 L Carbon Dioxide Level 29 Chloride Level 95 L Creatinine 2.14 H Eosinophils # 0.0 Eosinophils % 0.6 Glucose Level 122 # Hematocrit 26.2 L Hemoglobin 9.0 L Lymphocytes # 1.0 Lymphocytes % 18.5 Mean Corpuscular Hemoglobin 32.9 Mean Corpuscular Hemoglobin Concent 34.2 Mean Corpuscular Volume 96.1 Mean Platelet Volume 8.0 Monocytes # 0.6 Monocytes % 10.8 Neutrophils # 3.6 Neutrophils % 69.9 Nucleated Red Blood Cells # 0.0 Nucleated Red Blood Cells % 0.0 Platelet Count 95 L Potassium Level 3.9 Red Blood Count 2.73 L Red Cell Distribution Width 19.0 H Sodium Level 136 White Blood Count 5.2 Test 08/31/16 09:38 08/31/16 12:06 08/31/16 17:19 Bedside Glucose 146 186 181 Medications Medications Current Medications Fluticasone Propionate (Flonase 0.05% Nasal) 1 spray BID NASAL Last administered on 08/31/16 09:45; Admin Dose 1 SPRAY; Start 07/26/16 at 10:00 Epoetin [place] (Epogen (Esrd)) 10,000 units MoWeFr@17 SC Last administered on 17:14; Admin Dose 10,000 UNITS; Start 07/27/16 at 17:00; Status Future hold Hydralazine HCl (Apresoline) 10 mg Q6H PRN IV ELEVATED BLOOD PRESSURE Last administered on 08/29/16 17:39; Admin Dose 10 MG; Start 07/29/16 at 13:00 Acetaminophen (Tylenol Tab) 650 mg Q6H PRN GTB PAIN1-3/FEVER ABOVE 100 Last administered on 08/12/16at 06:07; Admin Dose 650 MG; Start 08/02/16 at 15:00 Atorvastatin Calcium (Lipitor) 40 mg HS GTB Last administered on 08/30/16 23: 43; Admin Dose 40 MG; Start 08/02/16 at 21:00 Carvedilol (Coreg) 6.25 mg BID GTB Last administered on 08/31/16 09:43; Admin Dose 6.25 MG; Start 08/02/16 at 09:00; Status Future hold Duloxetine HCl (Cymbalta) 90 mg DAILY GTB Last administered on 08/31/16 09:42 ; Admin Dose 90 MG; Start 08/02/16 at 09:00 Guaifenesin (Robitussin Liquid Cup) 100 mg Q4 PRN GTB COUGH; Start 08/02/16 at 09:00 Acetaminophen/ Hydrocodone Bitart ([place] (5/325)) 1 tab Q4 PRN GTB WSOB Last administered on 08/29/16 22:59; Admin Dose 1 TAB; Start 08/02/16 at 09:00 Lactobacillus Acidoph/Bulgaricus (Floranex) 1 tab DAILY GTB Last administered on 08/31/16 09:42; Admin Dose 1 TAB; Start 08/02/16 at 09:00 Lorazepam (Ativan) 1 mg Q6H PRN GTB ANXIETY Last administered on 08/18/16at 10: 45; Admin Dose 1 MG; Start 08/02/16 at 09:00 Multivit/Ca Carb/ B Cmplx/FA/Prenat (Cheryl-Darcie) 1 tab DAILY GTB Last administered on 08/31/16 09:42; Admin Dose 1 TAB; Start 08/02/16 at 09:00 Aspirin (Aspirin) 81 mg DAILY GTB Last administered on 08/31/16 09:42; Admin Dose 81 MG; Start 08/02/16 at 09:00 Lansoprazole (Prevacid) 30 mg DAILY@06 GTB Last administered on 08/31/16 05:55 ; Admin Dose 30 MG; Start 08/02/16 at 10:00 Sildenafil Citrate (Revatio) 20 mg BID PO Last administered on 08/31/16 09:44 ; Admin Dose 20 MG; Start 08/08/16 at 21:00; Status Future hold Lorazepam (Ativan) 0.5 mg Q4 PRN IV ANXIETY Last administered on 08/30/16 00: 05; Admin Dose 0.5 MG; Start 08/09/16 at 00:00 Methylprednisolone Sodium Succinate (Solu-Medrol) 20 mg DAILY IV Last administered on 08/31/16 09:44; Admin Dose 20 MG; Start 08/10/16 at 09:00 Miscellaneous Information 1 ea NOTE XX ; Start 08/11/16 at 12:00 Glucose (Glutose) 15 gm Q15M PRN PO DECREASED GLUCOSE; Start 08/11/16 at 12:00 Glucose (Glutose) 22.5 gm Q15M PRN PO DECREASED GLUCOSE; Start 08/11/16 at 12: 00 Dextrose (D50w Syringe) 25 ml Q15M PRN IV DECREASED GLUCOSE Last administered on 08/24/16 12:54; Admin Dose 25 ML; Start 08/11/16 at 12:00 Dextrose (D50w Syringe) 50 ml Q15M PRN IV DECREASED GLUCOSE; Start 08/11/16 at 12:00 Glucagon (Glucagen) 1 mg Q15M PRN IM DECREASED GLUCOSE; Start 08/11/16 at 12: 00 Glucose (Glutose) 15 gm Q15M PRN BUCCAL DECREASED GLUCOSE; Start 08/11/16 at 12:00 IV Flush (NS 10 ml) 10 ml PRN PRN IV IV PROTOCOL Last administered on 05:59; Admin Dose 10 ML; Start 08/13/16 at 18:00 Collagenase (Santyl) 1 applic DAILY@22 TOP Last administered on 08/30/16 23:43 ; Admin Dose 1 APPLIC; Start 08/15/16 at 22:00 Insulin Glargine (Lantus) 25 unit QAM SC Last administered on 08/31/16 09:40; Admin Dose 25 UNIT; Start 08/18/16 at 09:00 Insulin Aspart (Novolog Insulin Pen) NOVOLOG *MODERATE* ALGORI... Q6 SC Last administered on 08/31/16 17:21; Admin Dose 2 UNIT; Start 08/30/16 at 18:00 MARY DOMINGUEZ Aug 31, 2016 18:51
[2016-08-31] MEDS: HYDROCODONE/APAP (5/325) TAB GTB PRN (20:16)
[2016-08-31] MEDS: ATORVASTATIN 40 MG TAB GTB SCH (22:26)
[2016-08-31] MEDS: COLLAGENASE 30 GM TUBE TOP SCH (22:27)
[2016-09-01] VITALS (35 sets, daily range): BP systolic 116–156; BP diastolic 49–71; PULSE 68–153; RESP 18–25
[2016-09-01] MEDS: INSULIN ASPART [NOVOLOG] 3 ML PEN SC SCH ×4 (01:15→18:00)
[2016-09-01] MEDS: IPRATROPIUM (HFA) 12.9 GM INHALER INH SCH ×4 (01:48→19:40)
[2016-09-01] MEDS: ALBUTEROL HFA 8 GM INHALER INH SCH ×4 (01:48→19:40)
[2016-09-01] MEDS: LANSOPRAZOLE 30 MG CAP GTB SCH (06:04)
[2016-09-01 07:52] LABS: BASOPHILS % 0.3 % (0.0-2.0); EOSINOPHILS % 0.5 % (0.0-7.0); HEMATOCRIT 24.5 % (42.0-52.0); HEMOGLOBIN 8.4 g/dl (14.0-18.0); LYMPHOCYTES # 0.9 10^3/ul (0.8-2.9); LYMPHOCYTES % 16.3 % (15.0-51.0); MEAN CORPUSCULAR HEMOGLOBIN 32.8 pg (29.0-33.0); MEAN CORPUSCULAR HGB CONC 34.1 g/dl (32.0-37.0); MEAN PLATELET VOLUME 7.9 fl (7.4-10.4); MONOCYTE # 0.5 10^3/ul (0.3-0.9); MONOCYTES % 8.5 % (0.0-11.0); NEUTROPHIL # 4.1 10^3/ul (1.6-7.5); NEUTROPHILS % 74.4 % (39.0-77.0); PLATELET COUNT 105 10^3/UL (140-440); RED BLOOD COUNT 2.55 10^6/ul (4.70-6.10); RED CELL DISTRIBUTION WIDTH 18.6 % (11.5-14.5); UNCORRECTED WBC 5.5 10^3/ul (4.8-10.8); WHITE BLOOD COUNT 5.5 10^3/ul (4.8-10.8)
[2016-09-01 08:01] LABS: POTASSIUM 3.7 mmol/L (3.5-5.1)
[2016-09-01 08:04] LABS: CALCIUM 7.7 mg/dl (8.4-10.2); CREATININE 2.7 mg/dl (0.61-1.24)
[2016-09-01 08:05] LABS: CONDITION 1; LH ANALYZER COMMENTS 1
--- NOTE | 2016-09-01 08:48 | CONS ---
Date/Time of Note Date/Time of Note DATE: 09/01/16 TIME: 08:43 Assessment/Plan Assessment/Plan Chief Complaint/Hosp Course - VDRF s/p trach - S/p aspiration PNA: respiratory Cx on 08/10 grew MSSA and C. 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 - PAD Hx Left BKA - underlying Parkinson's disease - stage 2 coccyx decub - PCN allergic - dysphagia d/p G tube - thrombocytopenia - borderline positive [id number] level. 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 Alexander Problems: Consultation Date/Type/Reason Admit Date/Time Jul 26, 2016 at 01:55 Initial Consult Date 07/29/16 Type of Consultation: Infectious Disease Referring Provider: GRACIE KATHLEEN 24 HR Interval Summary Free Text/Dictation Remains afebrile, still with diarrhea with rectal tube, and getting blood transfusion with HD today per JUAN MIGUEL Le. ROS limited d/t encephalopathy. Exam/Review of Systems Vital Signs Vitals Vital Signs Date Time Temp Pulse Resp B/P Pulse Ox O2 Delivery O2 Flow Rate FiO2 09/01/16 08:17 98.0 68 18 122/49 98 09/01/16 05:11 40 08/29/16 04:30 Mechanical Ventilator Intake and Output 08/31/16 08/31/16 09/01/16 15:00 23:00 07:00 Intake Total 500 ml 550 ml Output Total 20 ml 500 ml 550 ml Balance -20 ml 0 ml 0 ml Exam Constitutional: frail, other (chronically debilitated), Head: atraumatic, normocephalic Neck: other (trach midline without leak) Respiratory: Diminished breath sounds, otherwise clear. No wheezing Cardiovascular: regular rate and rhythm, normal S1 and S2 Gastrointestinal: soft, bowel sounds present, other (GT with TF intact; rectal tube intact with loose stool). Extremities: edema, other (LLE BKA noted; LUE AVF with + bruit/thrill; left middle finger partial amputation noted) Neurological: More alert; Selectively follows command. Eyes open, +tracking. Skin: ecchymosis (scattered BUE), nl turgor, other (RUE PICC c/d/i). Wound ( coccyx stage 2 with dressing c/d/i and perianal area with dermatitis d/t incontinence - See Nurses note for details), Other (Few healing blisters on left cheek). Results Result Diagram: 09/01/16 0655 09/01/16 0655 Results 24 hrs Laboratory Tests Test 08/31/16 09:38 08/31/16 12:06 08/31/16 17:19 09/01/16 01:07 Bedside Glucose 146 186 181 164 Test 09/01/16 06:03 09/01/16 06:55 09/01/16 08:06 Bedside Glucose 205 179 Anion Gap 14 Basophils # 0.0 Basophils % 0.3 Blood Morphology Comment Blood Urea Nitrogen 58 H Calcium Level 7.7 L Carbon Dioxide Level 29 Chloride Level 95 L Creatinine 2.70 H Eosinophils # 0.0 Eosinophils % 0.5 Glucose Level 188 Hematocrit 24.5 L Hemoglobin 8.4 L Lymphocytes # 0.9 Lymphocytes % 16.3 Mean Corpuscular Hemoglobin 32.8 Mean Corpuscular Hemoglobin Concent 34.1 Mean Corpuscular Volume 96.0 Mean Platelet Volume 7.9 Monocytes # 0.5 Monocytes % 8.5 Neutrophils # 4.1 Neutrophils % 74.4 Nucleated Red Blood Cells # 0.0 Nucleated Red Blood Cells % 0.0 Phosphorus Level 2.3 L Platelet Count 105 L Potassium Level 3.7 Red Blood Count 2.55 L Red Cell Distribution Width 18.6 H Sodium Level 134 L White Blood Count 5.5 Medications Medications Current Medications Fluticasone Propionate (Flonase 0.05% Nasal) 1 spray BID NASAL Last administered on 08/31/16 22:27; Admin Dose 1 SPRAY; Start 07/26/16 at 10:00 Epoetin [place] (Epogen (Esrd)) 10,000 units MoWeFr@17 SC Last administered on 17:14; Admin Dose 10,000 UNITS; Start 07/27/16 at 17:00; Status Future hold Hydralazine HCl (Apresoline) 10 mg Q6H PRN IV ELEVATED BLOOD PRESSURE Last administered on 08/29/16 17:39; Admin Dose 10 MG; Start 07/29/16 at 13:00 Acetaminophen (Tylenol Tab) 650 mg Q6H PRN GTB PAIN1-3/FEVER ABOVE 100 Last administered on 08/12/16at 06:07; Admin Dose 650 MG; Start 08/02/16 at 15:00 Atorvastatin Calcium (Lipitor) 40 mg HS GTB Last administered on 08/31/16 22: 26; Admin Dose 40 MG; Start 08/02/16 at 21:00 Carvedilol (Coreg) 6.25 mg BID GTB Last administered on 08/31/16 09:43; Admin Dose 6.25 MG; Start 08/02/16 at 09:00; Status Future hold Duloxetine HCl (Cymbalta) 90 mg DAILY GTB Last administered on 08/31/16 09:42 ; Admin Dose 90 MG; Start 08/02/16 at 09:00 Guaifenesin (Robitussin Liquid Cup) 100 mg Q4 PRN GTB COUGH; Start 08/02/16 at 09:00 Acetaminophen/ Hydrocodone Bitart ([place] (5/325)) 1 tab Q4 PRN GTB WSOB Last administered on 08/31/16 20:16; Admin Dose 1 TAB; Start 08/02/16 at 09:00 Lactobacillus Acidoph/Bulgaricus (Floranex) 1 tab DAILY GTB Last administered on 08/31/16 09:42; Admin Dose 1 TAB; Start 08/02/16 at 09:00 Lorazepam (Ativan) 1 mg Q6H PRN GTB ANXIETY Last administered on 08/18/16at 10: 45; Admin Dose 1 MG; Start 08/02/16 at 09:00 Multivit/Ca Carb/ B Cmplx/FA/Prenat (Cheryl-Darcie) 1 tab DAILY GTB Last administered on 08/31/16 09:42; Admin Dose 1 TAB; Start 08/02/16 at 09:00 Aspirin (Aspirin) 81 mg DAILY GTB Last administered on 08/31/16 09:42; Admin Dose 81 MG; Start 08/02/16 at 09:00 Lansoprazole (Prevacid) 30 mg DAILY@06 GTB Last administered on 09/01/16 06:04 ; Admin Dose 30 MG; Start 08/02/16 at 10:00 Sildenafil Citrate (Revatio) 20 mg BID PO Last administered on 08/31/16 22:26 ; Admin Dose 20 MG; Start 08/08/16 at 21:00; Status Future hold Lorazepam (Ativan) 0.5 mg Q4 PRN IV ANXIETY Last administered on 08/30/16 00: 05; Admin Dose 0.5 MG; Start 08/09/16 at 00:00 Methylprednisolone Sodium Succinate (Solu-Medrol) 20 mg DAILY IV Last administered on 08/31/16 09:44; Admin Dose 20 MG; Start 08/10/16 at 09:00 Miscellaneous Information 1 ea NOTE XX ; Start 08/11/16 at 12:00 Glucose (Glutose) 15 gm Q15M PRN PO DECREASED GLUCOSE; Start 08/11/16 at 12:00 Glucose (Glutose) 22.5 gm Q15M PRN PO DECREASED GLUCOSE; Start 08/11/16 at 12: 00 Dextrose (D50w Syringe) 25 ml Q15M PRN IV DECREASED GLUCOSE Last administered on 08/24/16 12:54; Admin Dose 25 ML; Start 08/11/16 at 12:00 Dextrose (D50w Syringe) 50 ml Q15M PRN IV DECREASED GLUCOSE; Start 08/11/16 at 12:00 Glucagon (Glucagen) 1 mg Q15M PRN IM DECREASED GLUCOSE; Start 08/11/16 at 12: 00 Glucose (Glutose) 15 gm Q15M PRN BUCCAL DECREASED GLUCOSE; Start 08/11/16 at 12:00 IV Flush (NS 10 ml) 10 ml PRN PRN IV IV PROTOCOL Last administered on 05:59; Admin Dose 10 ML; Start 08/13/16 at 18:00 Collagenase (Santyl) 1 applic DAILY@22 TOP Last administered on 08/31/16 22:27 ; Admin Dose 1 APPLIC; Start 08/15/16 at 22:00 Insulin Glargine (Lantus) 25 unit QAM SC Last administered on 08/31/16 09:40; Admin Dose 25 UNIT; Start 08/18/16 at 09:00 Insulin Aspart (Novolog Insulin Pen) NOVOLOG *MODERATE* ALGORI... Q6 SC Last administered on 09/01/16 06:07; Admin Dose 4 UNIT; Start 08/30/16 at 18:00 Procedures Procedures CXR 08/30/16: Cardiomegaly . Hypoinflated lungs. Elevation right hemidiaphragm with associated right lower lobe atelectasis/ consolidation. Subsegmental atelectasis in the left lower lobe. JERICHO CRABTREE NP Sep 01, 2016 08:48
[2016-09-01] MEDS: INSULIN GLARGINE [LANtus] 3 ML PEN SC SCH (10:15)
--- NOTE | 2016-09-01 10:16 | CONS ---
Date/Time of Note Date/Time of Note DATE: 09/01/16 TIME: 10:14 Assessment/Plan Assessment/Plan Additional Assessment/Plan 1. Status quo, ckd now being dialyzed. 2. Inc anemia, if further decline will transfuse, stool ob ordered 3. BP acceptable Consultation Date/Type/Reason Admit Date/Time Jul 26, 2016 at 01:55 Type of Consultation: Infectious Disease Referring Provider: GRACIE KATHLEEN 24 HR Interval Summary Constitutional: other (trach in place and on vent) Exam/Review of Systems Vital Signs Vitals Vital Signs Date Time Temp Pulse Resp B/P Pulse Ox O2 Delivery O2 Flow Rate FiO2 09/01/16 10:00 79 09/01/16 09:05 21 100 30 09/01/16 08:17 98.0 122/49 08/29/16 04:30 Mechanical Ventilator Intake and Output 08/31/16 08/31/16 09/01/16 15:00 23:00 07:00 Intake Total 500 ml 550 ml Output Total 20 ml 500 ml 550 ml Balance -20 ml 0 ml 0 ml Exam Neck: No jvd Cardiovascular: regular rate and rhythm Gastrointestinal: soft, No distended Extremities: No edema Results Result Diagram: 09/01/16 0655 09/01/16 0655 Results 24 hrs Laboratory Tests Test 08/31/16 12:06 08/31/16 17:19 09/01/16 01:07 09/01/16 06:03 Bedside Glucose 186 181 164 205 Test 09/01/16 06:55 09/01/16 08:06 Anion Gap 14 Basophils # 0.0 Basophils % 0.3 Blood Morphology Comment Blood Urea Nitrogen 58 H Calcium Level 7.7 L Carbon Dioxide Level 29 Chloride Level 95 L Creatinine 2.70 H Eosinophils # 0.0 Eosinophils % 0.5 Glucose Level 188 Hematocrit 24.5 L Hemoglobin 8.4 L Lymphocytes # 0.9 Lymphocytes % 16.3 Mean Corpuscular Hemoglobin 32.8 Mean Corpuscular Hemoglobin Concent 34.1 Mean Corpuscular Volume 96.0 Mean Platelet Volume 7.9 Monocytes # 0.5 Monocytes % 8.5 Neutrophils # 4.1 Neutrophils % 74.4 Nucleated Red Blood Cells # 0.0 Nucleated Red Blood Cells % 0.0 Phosphorus Level 2.3 L Platelet Count 105 L Potassium Level 3.7 Red Blood Count 2.55 L Red Cell Distribution Width 18.6 H Sodium Level 134 L White Blood Count 5.5 Bedside Glucose 179 Medications Medications Current Medications Fluticasone Propionate (Flonase 0.05% Nasal) 1 spray BID NASAL Last administered on 08/31/16 22:27; Admin Dose 1 SPRAY; Start 07/26/16 at 10:00 Epoetin [place] (Epogen (Esrd)) 10,000 units MoWeFr@17 SC Last administered on 17:14; Admin Dose 10,000 UNITS; Start 07/27/16 at 17:00; Status Future hold Hydralazine HCl (Apresoline) 10 mg Q6H PRN IV ELEVATED BLOOD PRESSURE Last administered on 08/29/16 17:39; Admin Dose 10 MG; Start 07/29/16 at 13:00 Acetaminophen (Tylenol Tab) 650 mg Q6H PRN GTB PAIN1-3/FEVER ABOVE 100 Last administered on 08/12/16at 06:07; Admin Dose 650 MG; Start 08/02/16 at 15:00 Atorvastatin Calcium (Lipitor) 40 mg HS GTB Last administered on 08/31/16 22: 26; Admin Dose 40 MG; Start 08/02/16 at 21:00 Carvedilol (Coreg) 6.25 mg BID GTB Last administered on 08/31/16 09:43; Admin Dose 6.25 MG; Start 08/02/16 at 09:00; Status Future hold Duloxetine HCl (Cymbalta) 90 mg DAILY GTB Last administered on 08/31/16 09:42 ; Admin Dose 90 MG; Start 08/02/16 at 09:00 Guaifenesin (Robitussin Liquid Cup) 100 mg Q4 PRN GTB COUGH; Start 08/02/16 at 09:00 Acetaminophen/ Hydrocodone Bitart ([place] (5/325)) 1 tab Q4 PRN GTB WSOB Last administered on 08/31/16 20:16; Admin Dose 1 TAB; Start 08/02/16 at 09:00 Lactobacillus Acidoph/Bulgaricus (Floranex) 1 tab DAILY GTB Last administered on 08/31/16 09:42; Admin Dose 1 TAB; Start 08/02/16 at 09:00 Lorazepam (Ativan) 1 mg Q6H PRN GTB ANXIETY Last administered on 08/18/16at 10: 45; Admin Dose 1 MG; Start 08/02/16 at 09:00 Multivit/Ca Carb/ B Cmplx/FA/Prenat (Cheryl-Darcie) 1 tab DAILY GTB Last administered on 08/31/16 09:42; Admin Dose 1 TAB; Start 08/02/16 at 09:00 Aspirin (Aspirin) 81 mg DAILY GTB Last administered on 08/31/16 09:42; Admin Dose 81 MG; Start 08/02/16 at 09:00 Lansoprazole (Prevacid) 30 mg DAILY@06 GTB Last administered on 09/01/16 06:04 ; Admin Dose 30 MG; Start 08/02/16 at 10:00 Sildenafil Citrate (Revatio) 20 mg BID PO Last administered on 08/31/16 22:26 ; Admin Dose 20 MG; Start 08/08/16 at 21:00; Status Future hold Lorazepam (Ativan) 0.5 mg Q4 PRN IV ANXIETY Last administered on 08/30/16 00: 05; Admin Dose 0.5 MG; Start 08/09/16 at 00:00 Methylprednisolone Sodium Succinate (Solu-Medrol) 20 mg DAILY IV Last administered on 08/31/16 09:44; Admin Dose 20 MG; Start 08/10/16 at 09:00 Miscellaneous Information 1 ea NOTE XX ; Start 08/11/16 at 12:00 Glucose (Glutose) 15 gm Q15M PRN PO DECREASED GLUCOSE; Start 08/11/16 at 12:00 Glucose (Glutose) 22.5 gm Q15M PRN PO DECREASED GLUCOSE; Start 08/11/16 at 12: 00 Dextrose (D50w Syringe) 25 ml Q15M PRN IV DECREASED GLUCOSE Last administered on 08/24/16 12:54; Admin Dose 25 ML; Start 08/11/16 at 12:00 Dextrose (D50w Syringe) 50 ml Q15M PRN IV DECREASED GLUCOSE; Start 08/11/16 at 12:00 Glucagon (Glucagen) 1 mg Q15M PRN IM DECREASED GLUCOSE; Start 08/11/16 at 12: 00 Glucose (Glutose) 15 gm Q15M PRN BUCCAL DECREASED GLUCOSE; Start 08/11/16 at 12:00 IV Flush (NS 10 ml) 10 ml PRN PRN IV IV PROTOCOL Last administered on 05:59; Admin Dose 10 ML; Start 08/13/16 at 18:00 Collagenase (Santyl) 1 applic DAILY@22 TOP Last administered on 08/31/16 22:27 ; Admin Dose 1 APPLIC; Start 08/15/16 at 22:00 Insulin Glargine (Lantus) 25 unit QAM SC Last administered on 08/31/16 09:40; Admin Dose 25 UNIT; Start 08/18/16 at 09:00 Insulin Aspart (Novolog Insulin Pen) NOVOLOG *MODERATE* ALGORI... Q6 SC Last administered on 09/01/16 06:07; Admin Dose 4 UNIT; Start 08/30/16 at 18:00 JESSICA ROSARIO MD Sep 01, 2016 10:15
[2016-09-01] MEDS: SILDENAFIL 20 MG TAB PO SCH (13:33)
[2016-09-01] MEDS: LACTOBACILLUS CHEW TAB GTB SCH (13:33)
[2016-09-01] MEDS: MULTIVIT/CA CARB/B CMPLX/FA TAB GTB SCH (13:33)
[2016-09-01] MEDS: ASPIRIN 81 MG TAB GTB SCH (13:34)
[2016-09-01] MEDS: METHYLPREDNISOLONE 40 MG INJ IV SCH (13:35)
[2016-09-01] MEDS: FLUTICASONE 0.05% 16 GM NAS SPRAY NASAL SCH ×2 (13:35→21:07)
[2016-09-01] MEDS: DULOXETINE 30 MG CAP DR GTB SCH (13:38)
--- NOTE | 2016-09-01 16:17 | PN ---
Date/Time of Note Date/Time of Note DATE: 09/01/16 TIME: 16:16 Assessment/Plan VTE Prophylaxis VTE Prophylaxis Intervention: other Lines/Catheters IV [facility] Type [facility] PICC Line Urinary Cath still in place: No Assessment/Plan Assessment/Plan 1. Acute hypoxemic respiratory failure, status post tracheostomy. The patient is followed by Dr. Andrews in pulmonology consultation. 2. Possible pneumonia. Is status post treatment with antibiotics. The patient is followed by Dr. Hammer. 3. End-stage renal disease on hemodialysis. The patient is followed by Dr. Bassett in nephrology consultation. Continue hemodialysis per nephrology. 3. Diastolic congestive heart failure. Continue fluid removal with dialysis. 4. Dysphagia with percutaneous endoscopic gastrostomy placement. Continue to monitor residual. 5. 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 Continue on acyclovir. 6. Diabetes mellitus. Continue Lantus and NovoLog. 7. Pulmonary hypertension. Continue patient on Revatio. 8. Hyperlipidemia. Continue Lipitor. 9. Peripheral arterial disease status post amputation. 10. Sacral decubitus stage II. Continue current wound care, offloading. 11. Hypophosphatemia- monitor labs. Further recommendations based on clinical course. Plan of care discussed with Dr. Miramontes. Subjective 24 Hr Interval Summary Constitutional: requiring O2 Exam/Review of Systems Vital Signs Vitals Vital Signs Date Time Temp Pulse Resp B/P Pulse Ox O2 Delivery O2 Flow Rate FiO2 09/01/16 15:00 86 21 100 40 09/01/16 12:02 98.0 138/70 08/29/16 04:30 Mechanical Ventilator Intake and Output 08/31/16 08/31/16 09/01/16 14:59 22:59 06:59 Intake Total 500 ml 550 ml Output Total 20 ml 500 ml 550 ml Balance -20 ml 0 ml 0 ml Exam Constitutional: alert Eyes: nl sclera ENMT: nl external ears & nose Respiratory: diminished breath sounds Cardiovascular: regular rate and rhythm Gastrointestinal: non-tender, other, soft Musculoskeletal: other Neurological: confused Lymph: nontender Results Result Diagram: 09/01/16 0655 09/01/16 0655 Results 24 hrs Laboratory Tests Test 08/31/16 17:19 09/01/16 01:07 09/01/16 06:03 09/01/16 06:55 Bedside Glucose 181 164 205 Anion Gap 14 Basophils # 0.0 Basophils % 0.3 Blood Morphology Comment Blood Urea Nitrogen 58 H Calcium Level 7.7 L Carbon Dioxide Level 29 Chloride Level 95 L Creatinine 2.70 H Eosinophils # 0.0 Eosinophils % 0.5 Glucose Level 188 Hematocrit 24.5 L Hemoglobin 8.4 L Lymphocytes # 0.9 Lymphocytes % 16.3 Mean Corpuscular Hemoglobin 32.8 Mean Corpuscular Hemoglobin Concent 34.1 Mean Corpuscular Volume 96.0 Mean Platelet Volume 7.9 Monocytes # 0.5 Monocytes % 8.5 Neutrophils # 4.1 Neutrophils % 74.4 Nucleated Red Blood Cells # 0.0 Nucleated Red Blood Cells % 0.0 Phosphorus Level 2.3 L Platelet Count 105 L Potassium Level 3.7 Red Blood Count 2.55 L Red Cell Distribution Width 18.6 H Sodium Level 134 L White Blood Count 5.5 Test 09/01/16 08:06 09/01/16 13:40 Bedside Glucose 179 203 Medications Medications Current Medications Fluticasone Propionate (Flonase 0.05% Nasal) 1 spray BID NASAL Last administered on 09/01/16 13:35; Admin Dose 1 SPRAY; Start 07/26/16 at 10:00 Epoetin [place] (Epogen (Esrd)) 10,000 units MoWeFr@17 SC Last administered on 17:14; Admin Dose 10,000 UNITS; Start 07/27/16 at 17:00; Status Future hold Hydralazine HCl (Apresoline) 10 mg Q6H PRN IV ELEVATED BLOOD PRESSURE Last administered on 08/29/16 17:39; Admin Dose 10 MG; Start 07/29/16 at 13:00 Acetaminophen (Tylenol Tab) 650 mg Q6H PRN GTB PAIN1-3/FEVER ABOVE 100 Last administered on 08/12/16at 06:07; Admin Dose 650 MG; Start 08/02/16 at 15:00 Atorvastatin Calcium (Lipitor) 40 mg HS GTB Last administered on 08/31/16 22: 26; Admin Dose 40 MG; Start 08/02/16 at 21:00 Carvedilol (Coreg) 6.25 mg BID GTB Last administered on 09/01/16 13:34; Admin Dose 6.25 MG; Start 08/02/16 at 09:00; Status Future hold Duloxetine HCl (Cymbalta) 90 mg DAILY GTB Last administered on 09/01/16 13:38 ; Admin Dose 90 MG; Start 08/02/16 at 09:00 Guaifenesin (Robitussin Liquid Cup) 100 mg Q4 PRN GTB COUGH; Start 08/02/16 at 09:00 Acetaminophen/ Hydrocodone Bitart ([place] (5/325)) 1 tab Q4 PRN GTB WSOB Last administered on 08/31/16 20:16; Admin Dose 1 TAB; Start 08/02/16 at 09:00 Lactobacillus Acidoph/Bulgaricus (Floranex) 1 tab DAILY GTB Last administered on 09/01/16 13:33; Admin Dose 1 TAB; Start 08/02/16 at 09:00 Lorazepam (Ativan) 1 mg Q6H PRN GTB ANXIETY Last administered on 08/18/16at 10: 45; Admin Dose 1 MG; Start 08/02/16 at 09:00 Multivit/Ca Carb/ B Cmplx/FA/Prenat (Cheryl-Darcie) 1 tab DAILY GTB Last administered on 09/01/16 13:33; Admin Dose 1 TAB; Start 08/02/16 at 09:00 Aspirin (Aspirin) 81 mg DAILY GTB Last administered on 09/01/16 13:34; Admin Dose 81 MG; Start 08/02/16 at 09:00 Lansoprazole (Prevacid) 30 mg DAILY@06 GTB Last administered on 09/01/16 06:04 ; Admin Dose 30 MG; Start 08/02/16 at 10:00 Sildenafil Citrate (Revatio) 20 mg BID PO Last administered on 09/01/16 13:33 ; Admin Dose 20 MG; Start 08/08/16 at 21:00; Status Future hold Lorazepam (Ativan) 0.5 mg Q4 PRN IV ANXIETY Last administered on 08/30/16 00: 05; Admin Dose 0.5 MG; Start 08/09/16 at 00:00 Methylprednisolone Sodium Succinate (Solu-Medrol) 20 mg DAILY IV Last administered on 09/01/16 13:35; Admin Dose 20 MG; Start 08/10/16 at 09:00 Miscellaneous Information 1 ea NOTE XX ; Start 08/11/16 at 12:00 Glucose (Glutose) 15 gm Q15M PRN PO DECREASED GLUCOSE; Start 08/11/16 at 12:00 Glucose (Glutose) 22.5 gm Q15M PRN PO DECREASED GLUCOSE; Start 08/11/16 at 12: 00 Dextrose (D50w Syringe) 25 ml Q15M PRN IV DECREASED GLUCOSE Last administered on 08/24/16 12:54; Admin Dose 25 ML; Start 08/11/16 at 12:00 Dextrose (D50w Syringe) 50 ml Q15M PRN IV DECREASED GLUCOSE; Start 08/11/16 at 12:00 Glucagon (Glucagen) 1 mg Q15M PRN IM DECREASED GLUCOSE; Start 08/11/16 at 12: 00 Glucose (Glutose) 15 gm Q15M PRN BUCCAL DECREASED GLUCOSE; Start 08/11/16 at 12:00 IV Flush (NS 10 ml) 10 ml PRN PRN IV IV PROTOCOL Last administered on 05:59; Admin Dose 10 ML; Start 08/13/16 at 18:00 Collagenase (Santyl) 1 applic DAILY@22 TOP Last administered on 08/31/16 22:27 ; Admin Dose 1 APPLIC; Start 08/15/16 at 22:00 Insulin Glargine (Lantus) 25 unit QAM SC Last administered on 09/01/16 10:15; Admin Dose 25 UNIT; Start 08/18/16 at 09:00 Insulin Aspart (Novolog Insulin Pen) NOVOLOG *MODERATE* ALGORI... Q6 SC Last administered on 09/01/16 13:43; Admin Dose 4 UNIT; Start 08/30/16 at 18:00 GRACIE KATHLEEN Sep 01, 2016 16:17
[2016-09-01] MEDS: ATORVASTATIN 40 MG TAB GTB SCH (21:03)
[2016-09-01] MEDS: SILDENAFIL 20 MG TAB GTB SCH (21:07)
[2016-09-01] MEDS: COLLAGENASE 30 GM TUBE TOP SCH (21:12)
[2016-09-02] VITALS (24 sets, daily range): BP systolic 104–129; BP diastolic 44–53; PULSE 69–105; RESP 19–24
[2016-09-02] MEDS: INSULIN ASPART [NOVOLOG] 3 ML PEN SC SCH ×4 (00:13→18:06)
[2016-09-02] MEDS: IPRATROPIUM (HFA) 12.9 GM INHALER INH SCH ×4 (01:03→20:08)
[2016-09-02] MEDS: ALBUTEROL HFA 8 GM INHALER INH SCH ×4 (01:03→20:08)
[2016-09-02] MEDS: LANSOPRAZOLE 30 MG CAP GTB SCH (05:27)
[2016-09-02 06:14] LABS: BASOPHILS % 0.2 % (0.0-2.0); EOSINOPHILS % 0.2 % (0.0-7.0); HEMOGLOBIN 8.9 g/dl (14.0-18.0); LYMPHOCYTES # 1.1 10^3/ul (0.8-2.9); MEAN CORPUSCULAR HEMOGLOBIN 32.7 pg (29.0-33.0); MEAN CORPUSCULAR HGB CONC 34.1 g/dl (32.0-37.0); MEAN CORPUSCULAR VOLUME 95.9 fl (82.0-101.0); MEAN PLATELET VOLUME 7.7 fl (7.4-10.4); MONOCYTE # 0.8 10^3/ul (0.3-0.9); MONOCYTES % 9.6 % (0.0-11.0); PLATELET COUNT 121 10^3/UL (140-440); RED BLOOD COUNT 2.71 10^6/ul (4.70-6.10); RED CELL DISTRIBUTION WIDTH 18.6 % (11.5-14.5); UNCORRECTED WBC 7.9 10^3/ul (4.8-10.8); WHITE BLOOD COUNT 7.9 10^3/ul (4.8-10.8)
[2016-09-02 06:26] LABS: CREATININE 2.03 mg/dl (0.61-1.24)
[2016-09-02 06:27] LABS: CALCIUM 7.7 mg/dl (8.4-10.2)
[2016-09-02 06:29] LABS: IRON 53 ug/dl (35-150)
[2016-09-02 06:31] LABS: POTASSIUM 2.9 mmol/L (3.5-5.1)
[2016-09-02 06:40] LABS: TOTAL IRON BINDING CAPACITY 160 ug/dl (241-421)
[2016-09-02 06:58] LABS: CONDITION 1; LH ANALYZER COMMENTS 1
[2016-09-02] MEDS: INSULIN GLARGINE [LANtus] 3 ML PEN SC SCH (08:44)
[2016-09-02] MEDS: METHYLPREDNISOLONE 40 MG INJ IV SCH (08:44)
[2016-09-02] MEDS: SILDENAFIL 20 MG TAB GTB SCH ×2 (08:45→21:00)
[2016-09-02] MEDS: LACTOBACILLUS CHEW TAB GTB SCH (08:45)
[2016-09-02] MEDS: DULOXETINE 30 MG CAP DR GTB SCH (08:45)
[2016-09-02] MEDS: ASPIRIN 81 MG TAB GTB SCH (08:45)
[2016-09-02] MEDS: MULTIVIT/CA CARB/B CMPLX/FA TAB GTB SCH (08:46)
[2016-09-02] MEDS: FLUTICASONE 0.05% 16 GM NAS SPRAY NASAL SCH ×2 (08:46→21:19)
[2016-09-02] MEDS ORDERED: POTASSIUM CHLORIDE 20 MEQ POWDER FOR ORAL SOLN NGT SCH (11:30)
--- NOTE | 2016-09-02 11:34 | CONS ---
Date/Time of Note Date/Time of Note DATE: 09/02/16 TIME: 11:33 Assessment/Plan Assessment/Plan Additional Assessment/Plan 1. Status quo with respect to respir status 2. CKD, next HD 3. Low K+ will replete Consultation Date/Type/Reason Admit Date/Time Jul 26, 2016 at 01:55 Type of Consultation: Infectious Disease Referring Provider: GRACIE KATHLEEN 24 HR Interval Summary Subjective hx not possible: other (on vent and trach in place, alert) Exam/Review of Systems Vital Signs Vitals Vital Signs Date Time Temp Pulse Resp B/P Pulse Ox O2 Delivery O2 Flow Rate FiO2 09/02/16 11:00 89 24 100 40 09/02/16 07:56 97.9 111/44 Intake and Output 09/01/16 09/01/16 09/02/16 15:00 23:00 07:00 Intake Total 500 ml 610 ml Output Total 2640 ml 700 ml Balance -2140 ml -90 ml Exam Neck: No jvd Respiratory: diminished breath sounds Cardiovascular: regular rate and rhythm Gastrointestinal: soft Extremities: No edema Results Result Diagram: 09/02/16 0530 09/02/16 0530 Results 24 hrs Laboratory Tests Test 09/01/16 13:40 09/01/16 17:54 09/02/16 00:11 09/02/16 05:30 Bedside Glucose 203 160 182 Anion Gap 13 Basophils # 0.0 Basophils % 0.2 Blood Morphology Comment Blood Urea Nitrogen 47 #H Calcium Level 7.7 L Carbon Dioxide Level 33 H Chloride Level 93 L Creatinine 2.03 H Eosinophils # 0.0 Eosinophils % 0.2 Ferritin 561.0 H Glucose Level 158 Hematocrit 26.0 L Hemoglobin 8.9 L Iron Level 53 Lymphocytes # 1.1 Lymphocytes % 14.0 L Mean Corpuscular Hemoglobin 32.7 Mean Corpuscular Hemoglobin Concent 34.1 Mean Corpuscular Volume 95.9 Mean Platelet Volume 7.7 Monocytes # 0.8 Monocytes % 9.6 Neutrophils # 6.0 Neutrophils % 76.0 Nucleated Red Blood Cells # 0.0 Nucleated Red Blood Cells % 0.0 Percent Iron Saturation 33 Platelet Count 121 L Potassium Level 2.9 *L Red Blood Count 2.71 L Red Cell Distribution Width 18.6 H Sodium Level 136 Total Iron Binding Capacity 160 L Vitamin B12 Level 920 White Blood Count 7.9 # Test 09/02/16 05:38 09/02/16 08:04 Bedside Glucose 166 185 Medications Medications Current Medications Fluticasone Propionate (Flonase 0.05% Nasal) 1 spray BID NASAL Last administered on 09/02/16 08:46; Admin Dose 1 SPRAY; Start 07/26/16 at 10:00 Epoetin [place] (Epogen (Esrd)) 10,000 units MoWeFr@17 SC Last administered on 17:14; Admin Dose 10,000 UNITS; Start 07/27/16 at 17:00; Status Future hold Hydralazine HCl (Apresoline) 10 mg Q6H PRN IV ELEVATED BLOOD PRESSURE Last administered on 08/29/16 17:39; Admin Dose 10 MG; Start 07/29/16 at 13:00 Acetaminophen (Tylenol Tab) 650 mg Q6H PRN GTB PAIN1-3/FEVER ABOVE 100 Last administered on 08/12/16at 06:07; Admin Dose 650 MG; Start 08/02/16 at 15:00 Atorvastatin Calcium (Lipitor) 40 mg HS GTB Last administered on 09/01/16 21: 03; Admin Dose 40 MG; Start 08/02/16 at 21:00 Carvedilol (Coreg) 6.25 mg BID GTB Last administered on 09/02/16 08:46; Admin Dose 6.25 MG; Start 08/02/16 at 09:00; Status Future hold Duloxetine HCl (Cymbalta) 90 mg DAILY GTB Last administered on 09/02/16 08:45 ; Admin Dose 90 MG; Start 08/02/16 at 09:00 Guaifenesin (Robitussin Liquid Cup) 100 mg Q4 PRN GTB COUGH; Start 08/02/16 at 09:00 Acetaminophen/ Hydrocodone Bitart ([place] (5/325)) 1 tab Q4 PRN GTB WSOB Last administered on 08/31/16 20:16; Admin Dose 1 TAB; Start 08/02/16 at 09:00 Lactobacillus Acidoph/Bulgaricus (Floranex) 1 tab DAILY GTB Last administered on 09/02/16 08:45; Admin Dose 1 TAB; Start 08/02/16 at 09:00 Lorazepam (Ativan) 1 mg Q6H PRN GTB ANXIETY Last administered on 08/18/16at 10: 45; Admin Dose 1 MG; Start 08/02/16 at 09:00 Multivit/Ca Carb/ B Cmplx/FA/Prenat (Cheryl-Darcie) 1 tab DAILY GTB Last administered on 09/02/16 08:46; Admin Dose 1 TAB; Start 08/02/16 at 09:00 Aspirin (Aspirin) 81 mg DAILY GTB Last administered on 09/02/16 08:45; Admin Dose 81 MG; Start 08/02/16 at 09:00 Lansoprazole (Prevacid) 30 mg DAILY@06 GTB Last administered on 09/02/16 05:27 ; Admin Dose 30 MG; Start 08/02/16 at 10:00 Lorazepam (Ativan) 0.5 mg Q4 PRN IV ANXIETY Last administered on 08/30/16 00: 05; Admin Dose 0.5 MG; Start 08/09/16 at 00:00 Methylprednisolone Sodium Succinate (Solu-Medrol) 20 mg DAILY IV Last administered on 09/02/16 08:44; Admin Dose 20 MG; Start 08/10/16 at 09:00 Miscellaneous Information 1 ea NOTE XX ; Start 08/11/16 at 12:00 Glucose (Glutose) 15 gm Q15M PRN PO DECREASED GLUCOSE; Start 08/11/16 at 12:00 Glucose (Glutose) 22.5 gm Q15M PRN PO DECREASED GLUCOSE; Start 08/11/16 at 12: 00 Dextrose (D50w Syringe) 25 ml Q15M PRN IV DECREASED GLUCOSE Last administered on 08/24/16 12:54; Admin Dose 25 ML; Start 08/11/16 at 12:00 Dextrose (D50w Syringe) 50 ml Q15M PRN IV DECREASED GLUCOSE; Start 08/11/16 at 12:00 Glucagon (Glucagen) 1 mg Q15M PRN IM DECREASED GLUCOSE; Start 08/11/16 at 12: 00 Glucose (Glutose) 15 gm Q15M PRN BUCCAL DECREASED GLUCOSE; Start 08/11/16 at 12:00 IV Flush (NS 10 ml) 10 ml PRN PRN IV IV PROTOCOL Last administered on 05:59; Admin Dose 10 ML; Start 08/13/16 at 18:00 Collagenase (Santyl) 1 applic DAILY@22 TOP Last administered on 09/01/16 21:12 ; Admin Dose 1 APPLIC; Start 08/15/16 at 22:00 Insulin Glargine (Lantus) 25 unit QAM SC Last administered on 09/02/16 08:44; Admin Dose 25 UNIT; Start 08/18/16 at 09:00 Insulin Aspart (Novolog Insulin Pen) NOVOLOG *MODERATE* ALGORI... Q6 SC Last administered on 09/02/16 05:48; Admin Dose 2 UNIT; Start 08/30/16 at 18:00 Sildenafil Citrate (Revatio) 20 mg BID GTB Last administered on 09/02/16 08:45 ; Admin Dose 20 MG; Start 09/01/16 at 21:00 JESSICA ROSARIO MD Sep 02, 2016 11:34
--- NOTE | 2016-09-02 12:04 | CONS ---
Date/Time of Note Date/Time of Note DATE: 09/02/16 TIME: 12:02 Assessment/Plan Assessment/Plan Chief Complaint/Hosp Course - VDRF s/p trach - S/p aspiration PNA: respiratory Cx on 08/10 grew MSSA and C. 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 - PAD Hx Left BKA - underlying Parkinson's disease - stage 2 coccyx decub - PCN allergic - dysphagia d/p G tube - thrombocytopenia - borderline positive [id number] level. 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 (2016-08/30/2016) - s/p imipenem (08/05- 08/14), IV vanco (07/29-08/13), aztreonam (07/29-08/05), cefazolin (08/14-08/23), caspo (08/11-08/23), pGT vanco (08/06-08/25) - DNR Recommendations: - Monitor closely off abx - DC planning in progress; awaiting subacute placement that will accommodate HD Problems: Consultation Date/Type/Reason Admit Date/Time Jul 26, 2016 at 01:55 Initial Consult Date 07/29/16 Type of Consultation: Infectious Disease Referring Provider: GRACIE KATHLEEN Exam/Review of Systems Vital Signs Vitals Vital Signs Date Time Temp Pulse Resp B/P Pulse Ox O2 Delivery O2 Flow Rate FiO2 09/02/16 11:53 97.9 86 20 111/53 100 09/02/16 11:00 40 Intake and Output 09/01/16 09/01/16 09/02/16 15:00 23:00 07:00 Intake Total 500 ml 610 ml Output Total 2640 ml 700 ml Balance -2140 ml -90 ml Exam Constitutional: alert, oriented, well developed Psych: nl mood/affect, no complaints Head: atraumatic, normocephalic Eyes: EOMI, PERRL, nl conjunctiva, nl lids, nl sclera Neck: non-tender, supple Respiratory: clear to auscultation, normal air movement Cardiovascular: nl pulses, regular rate and rhythm Gastrointestinal: nl liver, spleen, non-tender, soft Musculoskeletal: nl extremities to inspection, nl gait and stance Results Result Diagram: 09/02/16 0530 09/02/16 0530 Results 24 hrs Laboratory Tests Test 09/01/16 13:40 09/01/16 17:54 09/02/16 00:11 09/02/16 05:30 Bedside Glucose 203 160 182 Anion Gap 13 Basophils # 0.0 Basophils % 0.2 Blood Morphology Comment Blood Urea Nitrogen 47 #H Calcium Level 7.7 L Carbon Dioxide Level 33 H Chloride Level 93 L Creatinine 2.03 H Eosinophils # 0.0 Eosinophils % 0.2 Ferritin 561.0 H Glucose Level 158 Hematocrit 26.0 L Hemoglobin 8.9 L Iron Level 53 Lymphocytes # 1.1 Lymphocytes % 14.0 L Mean Corpuscular Hemoglobin 32.7 Mean Corpuscular Hemoglobin Concent 34.1 Mean Corpuscular Volume 95.9 Mean Platelet Volume 7.7 Monocytes # 0.8 Monocytes % 9.6 Neutrophils # 6.0 Neutrophils % 76.0 Nucleated Red Blood Cells # 0.0 Nucleated Red Blood Cells % 0.0 Percent Iron Saturation 33 Platelet Count 121 L Potassium Level 2.9 *L Red Blood Count 2.71 L Red Cell Distribution Width 18.6 H Sodium Level 136 Total Iron Binding Capacity 160 L Vitamin B12 Level 920 White Blood Count 7.9 # Test 09/02/16 05:38 09/02/16 08:04 Bedside Glucose 166 185 Medications Medications Current Medications Fluticasone Propionate (Flonase 0.05% Nasal) 1 spray BID NASAL Last administered on 09/02/16 08:46; Admin Dose 1 SPRAY; Start 07/26/16 at 10:00 Epoetin [place] (Epogen (Esrd)) 10,000 units MoWeFr@17 SC Last administered on 17:14; Admin Dose 10,000 UNITS; Start 07/27/16 at 17:00; Status Future hold Hydralazine HCl (Apresoline) 10 mg Q6H PRN IV ELEVATED BLOOD PRESSURE Last administered on 08/29/16 17:39; Admin Dose 10 MG; Start 07/29/16 at 13:00 Acetaminophen (Tylenol Tab) 650 mg Q6H PRN GTB PAIN1-3/FEVER ABOVE 100 Last administered on 08/12/16at 06:07; Admin Dose 650 MG; Start 08/02/16 at 15:00 Atorvastatin Calcium (Lipitor) 40 mg HS GTB Last administered on 09/01/16 21: 03; Admin Dose 40 MG; Start 08/02/16 at 21:00 Carvedilol (Coreg) 6.25 mg BID GTB Last administered on 09/02/16 08:46; Admin Dose 6.25 MG; Start 08/02/16 at 09:00; Status Future hold Duloxetine HCl (Cymbalta) 90 mg DAILY GTB Last administered on 09/02/16 08:45 ; Admin Dose 90 MG; Start 08/02/16 at 09:00 Guaifenesin (Robitussin Liquid Cup) 100 mg Q4 PRN GTB COUGH; Start 08/02/16 at 09:00 Acetaminophen/ Hydrocodone Bitart ([place] (5/325)) 1 tab Q4 PRN GTB [facility]SOB Last administered on 08/31/16 20:16; Admin Dose 1 TAB; Start 08/02/16 at 09:00 Lactobacillus Acidoph/Bulgaricus (Floranex) 1 tab DAILY GTB Last administered on 09/02/16 08:45; Admin Dose 1 TAB; Start 08/02/16 at 09:00 Lorazepam (Ativan) 1 mg Q6H PRN GTB ANXIETY Last administered on 08/18/16at 10: 45; Admin Dose 1 MG; Start 08/02/16 at 09:00 Multivit/Ca Carb/ B Cmplx/FA/Prenat (Cheryl-Darcie) 1 tab DAILY GTB Last administered on 09/02/16 08:46; Admin Dose 1 TAB; Start 08/02/16 at 09:00 Aspirin (Aspirin) 81 mg DAILY GTB Last administered on 09/02/16 08:45; Admin Dose 81 MG; Start 08/02/16 at 09:00 Lansoprazole (Prevacid) 30 mg DAILY@06 GTB Last administered on 09/02/16 05:27 ; Admin Dose 30 MG; Start 08/02/16 at 10:00 Lorazepam (Ativan) 0.5 mg Q4 PRN IV ANXIETY Last administered on 08/30/16 00: 05; Admin Dose 0.5 MG; Start 08/09/16 at 00:00 Methylprednisolone Sodium Succinate (Solu-Medrol) 20 mg DAILY IV Last administered on 09/02/16 08:44; Admin Dose 20 MG; Start 08/10/16 at 09:00 Miscellaneous Information 1 ea NOTE XX ; Start 08/11/16 at 12:00 Glucose (Glutose) 15 gm Q15M PRN PO DECREASED GLUCOSE; Start 08/11/16 at 12:00 Glucose (Glutose) 22.5 gm Q15M PRN PO DECREASED GLUCOSE; Start 08/11/16 at 12: 00 Dextrose (D50w Syringe) 25 ml Q15M PRN IV DECREASED GLUCOSE Last administered on 08/24/16 12:54; Admin Dose 25 ML; Start 08/11/16 at 12:00 Dextrose (D50w Syringe) 50 ml Q15M PRN IV DECREASED GLUCOSE; Start 08/11/16 at 12:00 Glucagon (Glucagen) 1 mg Q15M PRN IM DECREASED GLUCOSE; Start 08/11/16 at 12: 00 Glucose (Glutose) 15 gm Q15M PRN BUCCAL DECREASED GLUCOSE; Start 08/11/16 at 12:00 IV Flush (NS 10 ml) 10 ml PRN PRN IV IV PROTOCOL Last administered on 05:59; Admin Dose 10 ML; Start 08/13/16 at 18:00 Collagenase (Santyl) 1 applic DAILY@22 TOP Last administered on 09/01/16 21:12 ; Admin Dose 1 APPLIC; Start 08/15/16 at 22:00 Insulin Glargine (Lantus) 25 unit QAM SC Last administered on 09/02/16 08:44; Admin Dose 25 UNIT; Start 08/18/16 at 09:00 Insulin Aspart (Novolog Insulin Pen) NOVOLOG *MODERATE* ALGORI... Q6 SC Last administered on 09/02/16 05:48; Admin Dose 2 UNIT; Start 08/30/16 at 18:00 Sildenafil Citrate (Revatio) 20 mg BID GTB Last administered on 09/02/16 08:45 ; Admin Dose 20 MG; Start 09/01/16 at 21:00 Potassium Chloride (Potassium Chloride Pwd/Soln) 30 meq BID NGT ; Start at 11:30; Stop 09/02/16 at 15:00 JOYCE SOARES MD Sep 02, 2016 12:04
[2016-09-02] MEDS: HYDROCODONE/APAP (5/325) TAB GTB PRN (13:08)
--- NOTE | 2016-09-02 15:02 | PN ---
Date/Time of Note Date/Time of Note DATE: 09/02/16 TIME: 15:01 Assessment/Plan VTE Prophylaxis VTE Prophylaxis Intervention: other Lines/Catheters IV C[facility]ter Type (from [facility] PICC Line Urinary Cath still in place: No Assessment/Plan Assessment/Plan 1. Acute hypoxemic respiratory failure, status post tracheostomy. The patient is followed by Dr. Andrews in pulmonology consultation. 2. Possible pneumonia. Is status post treatment with antibiotics. The patient is followed by Dr. Hammer. 3. End-stage renal disease on hemodialysis. The patient is followed by Dr. Bassett in nephrology consultation. Continue hemodialysis per nephrology. 3. Diastolic congestive heart failure. Continue fluid removal with dialysis. 4. Dysphagia with percutaneous endoscopic gastrostomy placement. Continue to monitor residual. 5. 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 Continue on acyclovir. 6. Diabetes mellitus. Continue Lantus and NovoLog. 7. Pulmonary hypertension. Continue patient on Revatio. 8. Hyperlipidemia. Continue Lipitor. 9. Peripheral arterial disease status post amputation. 10. Sacral decubitus stage II. Continue current wound care, offloading. 11. Hypokalemia- replet k,monitor labs. Further recommendations based on clinical course. Plan of care discussed with Dr. Miramontes. Exam/Review of Systems Vital Signs Vitals Vital Signs Date Time Temp Pulse Resp B/P Pulse Ox O2 Delivery O2 Flow Rate FiO2 09/02/16 13:15 76 22 99 40 09/02/16 11:53 97.9 111/53 Intake and Output 09/01/16 09/01/16 09/02/16 15:00 23:00 07:00 Intake Total 500 ml 610 ml Output Total 2640 ml 700 ml Balance -2140 ml -90 ml Exam Constitutional: alert Psych: nl mood/affect Eyes: EOMI, nl sclera ENMT: nl external ears & nose Neck: non-tender Respiratory: diminished breath sounds Cardiovascular: nl pulses Gastrointestinal: non-tender, soft Musculoskeletal: nl extremities to inspection Neurological: other Lymph: nontender Results Result Diagram: 09/02/16 0530 09/02/16 1233 Results 24 hrs Laboratory Tests Test 09/01/16 17:54 09/02/16 00:11 09/02/16 05:30 09/02/16 05:38 Bedside Glucose 160 182 166 Anion Gap 13 Basophils # 0.0 Basophils % 0.2 Blood Morphology Comment Blood Urea Nitrogen 47 #H Calcium Level 7.7 L Carbon Dioxide Level 33 H Chloride Level 93 L Creatinine 2.03 H Eosinophils # 0.0 Eosinophils % 0.2 Ferritin 561.0 H Glucose Level 158 Hematocrit 26.0 L Hemoglobin 8.9 L Iron Level 53 Lymphocytes # 1.1 Lymphocytes % 14.0 L Mean Corpuscular Hemoglobin 32.7 Mean Corpuscular Hemoglobin Concent 34.1 Mean Corpuscular Volume 95.9 Mean Platelet Volume 7.7 Monocytes # 0.8 Monocytes % 9.6 Neutrophils # 6.0 Neutrophils % 76.0 Nucleated Red Blood Cells # 0.0 Nucleated Red Blood Cells % 0.0 Percent Iron Saturation 33 Platelet Count 121 L Potassium Level 2.9 *L Red Blood Count 2.71 L Red Cell Distribution Width 18.6 H Sodium Level 136 Total Iron Binding Capacity 160 L Vitamin B12 Level 920 White Blood Count 7.9 # Test 09/02/16 08:04 09/02/16 12:33 09/02/16 12:42 Bedside Glucose 185 205 Potassium Level 3.1 L Medications Medications Current Medications Fluticasone Propionate (Flonase 0.05% Nasal) 1 spray BID NASAL Last administered on 09/02/16 08:46; Admin Dose 1 SPRAY; Start 07/26/16 at 10:00 Epoetin [place] (Epogen (Esrd)) 10,000 units MoWeFr@17 SC Last administered on 17:14; Admin Dose 10,000 UNITS; Start 07/27/16 at 17:00; Status Future hold Hydralazine HCl (Apresoline) 10 mg Q6H PRN IV ELEVATED BLOOD PRESSURE Last administered on 08/29/16 17:39; Admin Dose 10 MG; Start 07/29/16 at 13:00 Acetaminophen (Tylenol Tab) 650 mg Q6H PRN GTB PAIN1-3/FEVER ABOVE 100 Last administered on 08/12/16at 06:07; Admin Dose 650 MG; Start 08/02/16 at 15:00 Atorvastatin Calcium (Lipitor) 40 mg HS GTB Last administered on 09/01/16 21: 03; Admin Dose 40 MG; Start 08/02/16 at 21:00 Carvedilol (Coreg) 6.25 mg BID GTB Last administered on 09/02/16 08:46; Admin Dose 6.25 MG; Start 08/02/16 at 09:00; Status Future hold Duloxetine HCl (Cymbalta) 90 mg DAILY GTB Last administered on 09/02/16 08:45 ; Admin Dose 90 MG; Start 08/02/16 at 09:00 Guaifenesin (Robitussin Liquid Cup) 100 mg Q4 PRN GTB COUGH; Start 08/02/16 at 09:00 Acetaminophen/ Hydrocodone Bitart ([place] (5/325)) 1 tab Q4 PRN GTB WSOB Last administered on 09/02/16 13:08; Admin Dose 1 TAB; Start 08/02/16 at 09:00 Lactobacillus Acidoph/Bulgaricus (Floranex) 1 tab DAILY GTB Last administered on 09/02/16 08:45; Admin Dose 1 TAB; Start 08/02/16 at 09:00 Lorazepam (Ativan) 1 mg Q6H PRN GTB ANXIETY Last administered on 08/18/16at 10: 45; Admin Dose 1 MG; Start 08/02/16 at 09:00 Multivit/Ca Carb/ B Cmplx/FA/Prenat (Cheryl-Darcie) 1 tab DAILY GTB Last administered on 09/02/16 08:46; Admin Dose 1 TAB; Start 08/02/16 at 09:00 Aspirin (Aspirin) 81 mg DAILY GTB Last administered on 09/02/16 08:45; Admin Dose 81 MG; Start 08/02/16 at 09:00 Lansoprazole (Prevacid) 30 mg DAILY@06 GTB Last administered on 09/02/16 05:27 ; Admin Dose 30 MG; Start 08/02/16 at 10:00 Lorazepam (Ativan) 0.5 mg Q4 PRN IV ANXIETY Last administered on 08/30/16 00: 05; Admin Dose 0.5 MG; Start 08/09/16 at 00:00 Methylprednisolone Sodium Succinate (Solu-Medrol) 20 mg DAILY IV Last administered on 09/02/16 08:44; Admin Dose 20 MG; Start 08/10/16 at 09:00 Miscellaneous Information 1 ea NOTE XX ; Start 08/11/16 at 12:00 Glucose (Glutose) 15 gm Q15M PRN PO DECREASED GLUCOSE; Start 08/11/16 at 12:00 Glucose (Glutose) 22.5 gm Q15M PRN PO DECREASED GLUCOSE; Start 08/11/16 at 12: 00 Dextrose (D50w Syringe) 25 ml Q15M PRN IV DECREASED GLUCOSE Last administered on 08/24/16 12:54; Admin Dose 25 ML; Start 08/11/16 at 12:00 Dextrose (D50w Syringe) 50 ml Q15M PRN IV DECREASED GLUCOSE; Start 08/11/16 at 12:00 Glucagon (Glucagen) 1 mg Q15M PRN IM DECREASED GLUCOSE; Start 08/11/16 at 12: 00 Glucose (Glutose) 15 gm Q15M PRN BUCCAL DECREASED GLUCOSE; Start 08/11/16 at 12:00 IV Flush (NS 10 ml) 10 ml PRN PRN IV IV PROTOCOL Last administered on 05:59; Admin Dose 10 ML; Start 08/13/16 at 18:00 Collagenase (Santyl) 1 applic DAILY@22 TOP Last administered on 09/01/16 21:12 ; Admin Dose 1 APPLIC; Start 08/15/16 at 22:00 Insulin Glargine (Lantus) 25 unit QAM SC Last administered on 09/02/16 08:44; Admin Dose 25 UNIT; Start 08/18/16 at 09:00 Insulin Aspart (Novolog Insulin Pen) NOVOLOG *MODERATE* ALGORI... Q6 SC Last administered on 09/02/16 12:54; Admin Dose 4 UNIT; Start 08/30/16 at 18:00 Sildenafil Citrate (Revatio) 20 mg BID GTB Last administered on 09/02/16 08:45 ; Admin Dose 20 MG; Start 09/01/16 at 21:00 Potassium Chloride (Potassium Chloride Pwd/Soln) 30 meq BID NGT Last administered on 09/02/16 12:27; Admin Dose 30 MEQ; Start 09/02/16 at 11:30; Stop 09/02/16 at 15:00 GRACIE KATHLEEN Sep 02, 2016 15:02
--- NOTE | 2016-09-02 18:23 | PN ---
DATE: 09/02/2016 SUBJECTIVE: Patient Zac is stable this morning on mechanical ventilation. No new events. PHYSICAL EXAMINATION: VITAL SIGNS: Temperature 97, pulse is 76, blood pressure 111/53, O2 saturation 96%, FIO2 of 30%. NECK: Trach site clean and intact. CARDIAC: S1, S2. No added sounds or murmurs. CHEST: Diminished air entry bilaterally. ABDOMEN: Soft, nontender. No guarding or rebound. EXTREMITIES: No cyanosis, clubbing, edema. NEUROLOGIC: Generalized weakness. LABORATORY DATA: White count 7.9, hemoglobin 8.9, platelets 121. BUN 47, creatinine 2.03, potassiu m 2.9. IMPRESSION AND PLAN: 1. Vent dependent respiratory failure. 2. Encephalopathy. 3. Dysphagia with G-tube. 4. Hypokalemia. 5. Chronic kidney disease on hemodialysis. RECOMMENDATIONS: 1. Continue mechanical ventilation. 2. Continue tube feeding. 3. Continue hemodialysis as tolerated. 4. Placement. Dictated By: VALERIE CAMARENA MD SV/OLESYA Conf#: [id number] DID#: [id number] CC: LESLIE PEDROZA MD;*EndCC*
--- NOTE | 2016-09-02 18:36 | CONS ---
Date/Time of Note Date/Time of Note DATE: 09/02/16 TIME: 18:34 Assessment/Plan Assessment/Plan Additional Assessment/Plan Respiratory failure status post intubation Sepsis Minimally elevated troponin DVT Diastolic congestive heart failure End-stage renal disease on hemodialysis CAD with history of PCI Diabetes Peripheral arterial disease with history of amputation Pulmonary hypertension NSVT Hypokalemia -Patient with more frequent episodes of nonsustained ventricular tachycardia, likely exacerbated by hypokalemia. Potassium supplementation has already been ordered, would order additional dose as well as magnesium. If possible, would consider adjusting dialysate bath secondary to frequent hypokalemia. Consultation Date/Type/Reason Admit Date/Time Jul 26, 2016 at 01:55 Type of Consultation: cv Referring Provider: GRACIE KATHLEEN 24 HR Interval Summary Free Text/Dictation Patient seen and examined, episodes of nonsustained ventricular tachycardia noted on telemetry Exam/Review of Systems Vital Signs Vitals Vital Signs Date Time Temp Pulse Resp B/P Pulse Ox O2 Delivery O2 Flow Rate FiO2 09/02/16 17:20 65 22 100 40 09/02/16 15:58 97.9 129/52 Intake and Output 09/01/16 09/01/16 09/02/16 15:00 23:00 07:00 Intake Total 500 ml 610 ml Output Total 2640 ml 700 ml Balance -2140 ml -90 ml Exam Sleeping but arousable, no apparent distress Head: normocephalic Neck: other (tracheostomy) Respiratory: other (course breath sounds bilaterally, no wheezing) Cardiovascular: other (S1 and S2 heard), regular rate and rhythm Gastrointestinal: bowel sounds, non-tender, soft Extremities: edema Results Result Diagram: 09/02/16 0530 09/02/16 1233 Results 24 hrs Laboratory Tests Test 09/02/16 00:11 09/02/16 05:30 09/02/16 05:38 09/02/16 08:04 Bedside Glucose 182 166 185 Anion Gap 13 Basophils # 0.0 Basophils % 0.2 Blood Morphology Comment Blood Urea Nitrogen 47 #H Calcium Level 7.7 L Carbon Dioxide Level 33 H Chloride Level 93 L Creatinine 2.03 H Eosinophils # 0.0 Eosinophils % 0.2 Ferritin 561.0 H Glucose Level 158 Hematocrit 26.0 L Hemoglobin 8.9 L Iron Level 53 Lymphocytes # 1.1 Lymphocytes % 14.0 L Mean Corpuscular Hemoglobin 32.7 Mean Corpuscular Hemoglobin Concent 34.1 Mean Corpuscular Volume 95.9 Mean Platelet Volume 7.7 Monocytes # 0.8 Monocytes % 9.6 Neutrophils # 6.0 Neutrophils % 76.0 Nucleated Red Blood Cells # 0.0 Nucleated Red Blood Cells % 0.0 Percent Iron Saturation 33 Platelet Count 121 L Potassium Level 2.9 *L Red Blood Count 2.71 L Red Cell Distribution Width 18.6 H Sodium Level 136 Total Iron Binding Capacity 160 L Vitamin B12 Level 920 White Blood Count 7.9 # Test 09/02/16 12:33 09/02/16 12:42 09/02/16 18:03 Potassium Level 3.1 L Bedside Glucose 205 176 Medications Medications Current Medications Fluticasone Propionate (Flonase 0.05% Nasal) 1 spray BID NASAL Last administered on 09/02/16 08:46; Admin Dose 1 SPRAY; Start 07/26/16 at 10:00 Epoetin [place] (Epogen (Esrd)) 10,000 units MoWeFr@17 SC Last administered on 17:14; Admin Dose 10,000 UNITS; Start 07/27/16 at 17:00; Status Future hold Hydralazine HCl (Apresoline) 10 mg Q6H PRN IV ELEVATED BLOOD PRESSURE Last administered on 08/29/16 17:39; Admin Dose 10 MG; Start 07/29/16 at 13:00 Acetaminophen (Tylenol Tab) 650 mg Q6H PRN GTB PAIN1-3/FEVER ABOVE 100 Last administered on 08/12/16at 06:07; Admin Dose 650 MG; Start 08/02/16 at 15:00 Atorvastatin Calcium (Lipitor) 40 mg HS GTB Last administered on 09/01/16 21: 03; Admin Dose 40 MG; Start 08/02/16 at 21:00 Carvedilol (Coreg) 6.25 mg BID GTB Last administered on 09/02/16 08:46; Admin Dose 6.25 MG; Start 08/02/16 at 09:00; Status Future hold Duloxetine HCl (Cymbalta) 90 mg DAILY GTB Last administered on 09/02/16 08:45 ; Admin Dose 90 MG; Start 08/02/16 at 09:00 Guaifenesin (Robitussin Liquid Cup) 100 mg Q4 PRN GTB COUGH; Start 08/02/16 at 09:00 Acetaminophen/ Hydrocodone Bitart ([place] (5/325)) 1 tab Q4 PRN GTB [facility] Last administered on 09/02/16 13:08; Admin Dose 1 TAB; Start 08/02/16 at 09:00 Lactobacillus Acidoph/Bulgaricus (Floranex) 1 tab DAILY GTB Last administered on 09/02/16 08:45; Admin Dose 1 TAB; Start 08/02/16 at 09:00 Lorazepam (Ativan) 1 mg Q6H PRN GTB ANXIETY Last administered on 08/18/16at 10: 45; Admin Dose 1 MG; Start 08/02/16 at 09:00 Multivit/Ca Carb/ B Cmplx/FA/Prenat (Cheryl-Darcie) 1 tab DAILY GTB Last administered on 09/02/16 08:46; Admin Dose 1 TAB; Start 08/02/16 at 09:00 Aspirin (Aspirin) 81 mg DAILY GTB Last administered on 09/02/16 08:45; Admin Dose 81 MG; Start 08/02/16 at 09:00 Lansoprazole (Prevacid) 30 mg DAILY@06 GTB Last administered on 09/02/16 05:27 ; Admin Dose 30 MG; Start 08/02/16 at 10:00 Lorazepam (Ativan) 0.5 mg Q4 PRN IV ANXIETY Last administered on 08/30/16 00: 05; Admin Dose 0.5 MG; Start 08/09/16 at 00:00 Methylprednisolone Sodium Succinate (Solu-Medrol) 20 mg DAILY IV Last administered on 09/02/16 08:44; Admin Dose 20 MG; Start 08/10/16 at 09:00 Miscellaneous Information 1 ea NOTE XX ; Start 08/11/16 at 12:00 Glucose (Glutose) 15 gm Q15M PRN PO DECREASED GLUCOSE; Start 08/11/16 at 12:00 Glucose (Glutose) 22.5 gm Q15M PRN PO DECREASED GLUCOSE; Start 08/11/16 at 12: 00 Dextrose (D50w Syringe) 25 ml Q15M PRN IV DECREASED GLUCOSE Last administered on 08/24/16 12:54; Admin Dose 25 ML; Start 08/11/16 at 12:00 Dextrose (D50w Syringe) 50 ml Q15M PRN IV DECREASED GLUCOSE; Start 08/11/16 at 12:00 Glucagon (Glucagen) 1 mg Q15M PRN IM DECREASED GLUCOSE; Start 08/11/16 at 12: 00 Glucose (Glutose) 15 gm Q15M PRN BUCCAL DECREASED GLUCOSE; Start 08/11/16 at 12:00 IV Flush (NS 10 ml) 10 ml PRN PRN IV IV PROTOCOL Last administered on 05:59; Admin Dose 10 ML; Start 08/13/16 at 18:00 Collagenase (Santyl) 1 applic DAILY@22 TOP Last administered on 09/01/16 21:12 ; Admin Dose 1 APPLIC; Start 08/15/16 at 22:00 Insulin Glargine (Lantus) 25 unit QAM SC Last administered on 09/02/16 08:44; Admin Dose 25 UNIT; Start 08/18/16 at 09:00 Insulin Aspart (Novolog Insulin Pen) NOVOLOG *MODERATE* ALGORI... Q6 SC Last administered on 09/02/16 18:06; Admin Dose 2 UNIT; Start 08/30/16 at 18:00 Sildenafil Citrate (Revatio) 20 mg BID GTB Last administered on 09/02/16 08:45 ; Admin Dose 20 MG; Start 09/01/16 at 21:00 Solo Leon DO Sep 02, 2016 18:36
[2016-09-02] MEDS ORDERED: POTASSIUM CHLORIDE 20 MEQ POWDER FOR ORAL SOLN NGT ONE (19:00)
[2016-09-02] MEDS ORDERED: MAGNESIUM SULFATE 1 GM/D5W 100 ML IVPB ONE (20:00)
[2016-09-02] MEDS: ATORVASTATIN 40 MG TAB GTB SCH (21:18)
[2016-09-02] MEDS: COLLAGENASE 30 GM TUBE TOP SCH (21:19)
[2016-09-03] VITALS (24 sets, daily range): BP systolic 75–147; BP diastolic 44–68; PULSE 67–83; RESP 16–28
[2016-09-03] MEDS: INSULIN ASPART [NOVOLOG] 3 ML PEN SC SCH ×4 (00:59→17:34)
[2016-09-03] MEDS: ALBUTEROL HFA 8 GM INHALER INH SCH ×4 (01:57→19:29)
[2016-09-03] MEDS: IPRATROPIUM (HFA) 12.9 GM INHALER INH SCH ×4 (01:58→19:29)
[2016-09-03] MEDS: LANSOPRAZOLE 30 MG CAP GTB SCH (06:52)
[2016-09-03 07:46] LABS: BASOPHILS % 0.4 % (0.0-2.0); EOSINOPHILS % 0.4 % (0.0-7.0); HEMOGLOBIN 8.8 g/dl (14.0-18.0); LYMPHOCYTES % 13.7 % (15.0-51.0); MEAN CORPUSCULAR HEMOGLOBIN 32.6 pg (29.0-33.0); MEAN CORPUSCULAR HGB CONC 33.8 g/dl (32.0-37.0); MEAN CORPUSCULAR VOLUME 96.6 fl (82.0-101.0); MEAN PLATELET VOLUME 7.6 fl (7.4-10.4); MONOCYTE # 0.6 10^3/ul (0.3-0.9); MONOCYTES % 8.4 % (0.0-11.0); NEUTROPHIL # 5.7 10^3/ul (1.6-7.5); NEUTROPHILS % 77.1 % (39.0-77.0); PLATELET COUNT 138 10^3/UL (140-440); RED BLOOD COUNT 2.69 10^6/ul (4.70-6.10); RED CELL DISTRIBUTION WIDTH 19.2 % (11.5-14.5); UNCORRECTED WBC 7.4 10^3/ul (4.8-10.8); WHITE BLOOD COUNT 7.4 10^3/ul (4.8-10.8)
[2016-09-03 07:52] LABS: POTASSIUM 3.6 mmol/L (3.5-5.1)
[2016-09-03 07:54] LABS: MAGNESIUM 2.2 mg/dl (1.7-2.5); PHOSPHORUS 1.5 mg/dl (2.5-4.9)
[2016-09-03 07:55] LABS: CREATININE 2.48 mg/dl (0.61-1.24)
[2016-09-03 07:56] LABS: CALCIUM 7.5 mg/dl (8.4-10.2)
[2016-09-03 08:15] LABS: CONDITION 1; LH ANALYZER COMMENTS 1
[2016-09-03] MEDS: LACTOBACILLUS CHEW TAB GTB SCH (08:57)
[2016-09-03] MEDS: METHYLPREDNISOLONE 40 MG INJ IV SCH (08:57)
[2016-09-03] MEDS: DULOXETINE 30 MG CAP DR GTB SCH (08:57)
[2016-09-03] MEDS: MULTIVIT/CA CARB/B CMPLX/FA TAB GTB SCH (08:57)
[2016-09-03] MEDS: ASPIRIN 81 MG TAB GTB SCH (08:57)
[2016-09-03] MEDS: FLUTICASONE 0.05% 16 GM NAS SPRAY NASAL SCH ×2 (08:58→22:01)
[2016-09-03] MEDS: INSULIN GLARGINE [LANtus] 3 ML PEN SC SCH (09:06)
[2016-09-03] MEDS: SILDENAFIL 20 MG TAB GTB SCH ×2 (09:06→22:01)
--- NOTE | 2016-09-03 11:44 | CONS ---
Date/Time of Note Date/Time of Note DATE: 09/03/16 TIME: 11:40 Assessment/Plan Assessment/Plan Chief Complaint/Hosp Course - VDRF s/p trach - S/p aspiration PNA: respiratory Cx on 08/10 grew MSSA and C. Albicans - S/p septic shock - S/p C diff colitis, last C diff test on 08/24/2016 negative - Persistent diarrhea - S/p intermittent fever - h/o RUE cellulitis complicated by axillary/cephalic venous thrombosis - toxic metabolic encephalopathy - ESRD on HD - hypokalemia - hypomagnesium - NSVT - diastolic CHF - CAD with Hx PCI - paroxysmal atrial tachycardia - old partial DVT of the right internal jugular vein. - PAD Hx Left BKA - underlying Parkinson's disease - stage 2 coccyx decub - PCN allergic - dysphagia d/p G tube - thrombocytopenia - borderline positive [id number] level. 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 Alexander Problems: Consultation Date/Type/Reason Admit Date/Time Jul 26, 2016 at 01:55 Initial Consult Date 07/29/16 Type of Consultation: Infectious Disease Referring Provider: GRACIE KATHLEEN 24 HR Interval Summary Free Text/Dictation Remains afebrile, clinically unchanged and awaiting subacute placement per JUAN MIGUEL Lucio. Pt requesting pain medicine and wash cloth to get clean up. ROS limited d/t difficulty reading lips. Exam/Review of Systems Vital Signs Vitals Vital Signs Date Time Temp Pulse Resp B/P Pulse Ox O2 Delivery O2 Flow Rate FiO2 09/03/16 11:15 80 22 100 30 09/03/16 11:00 97.6 130/58 Intake and Output 09/02/16 09/02/1609/03/17 15:00 23:00 07:00 Intake Total 560 ml 610 ml 610 ml Output Total 300 ml 200 ml Balance 560 ml 310 ml 410 ml Exam Constitutional: frail, other (chronically debilitated) Head: atraumatic, normocephalic Neck: other (trach midline without leak) Respiratory: Diminished breath sounds, otherwise clear. No wheezing Cardiovascular: regular rate and rhythm, normal S1 and S2 Gastrointestinal: soft, bowel sounds present, other (GT with TF intact; rectal tube intact with liquid brown stool). Extremities: edema, other (LLE BKA noted; LUE AVF with + bruit/thrill; left middle finger partial amputation noted) Neurological: More alert and interactive and trying to mouth out words; Selectively follows command. Eyes open, +tracking. Skin: ecchymosis (scattered BUE), nl turgor, other (RUE PICC c/d/i). Wound ( coccyx stage 2 with dressing c/d/i and perianal area with dermatitis d/t incontinence - See Nurses note for details), Other (Few healing blisters on left cheek). Results Result Diagram: 09/03/16 0600 09/03/16 0600 Results 24 hrs Laboratory Tests Test 09/02/16 12:33 09/02/16 12:42 09/02/16 18:03 09/03/16 00:55 Potassium Level 3.1 L Bedside Glucose 205 176 195 Test 09/03/16 05:00 09/03/16 06:00 09/03/16 06:54 Stool Occult Blood NEGATIVE Anion Gap 16 Basophils # 0.0 Basophils % 0.4 Blood Morphology Comment Blood Urea Nitrogen 65 H Calcium Level 7.5 L Carbon Dioxide Level 30 Chloride Level 92 L Creatinine 2.48 H Eosinophils # 0.0 Eosinophils % 0.4 Glucose Level 166 Hematocrit 26.0 L Hemoglobin 8.8 L Lymphocytes # 1.0 Lymphocytes % 13.7 L Magnesium Level 2.2 Mean Corpuscular Hemoglobin 32.6 Mean Corpuscular Hemoglobin Concent 33.8 Mean Corpuscular Volume 96.6 Mean Platelet Volume 7.6 Monocytes # 0.6 Monocytes % 8.4 Neutrophils # 5.7 Neutrophils % 77.1 H Nucleated Red Blood Cells # 0.0 Nucleated Red Blood Cells % 0.0 Phosphorus Level 1.5 L Platelet Count 138 L Potassium Level 3.6 Red Blood Count 2.69 L Red Cell Distribution Width 19.2 H Sodium Level 134 L White Blood Count 7.4 Bedside Glucose 192 Medications Medications Current Medications Fluticasone Propionate (Flonase 0.05% Nasal) 1 spray BID NASAL Last administered on 09/03/16 08:58; Admin Dose 1 SPRAY; Start 07/26/16 at 10:00 Epoetin [place] (Epogen (Esrd)) 10,000 units MoWeFr@17 SC Last administered on 17:14; Admin Dose 10,000 UNITS; Start 07/27/16 at 17:00; Status Future hold Hydralazine HCl (Apresoline) 10 mg Q6H PRN IV ELEVATED BLOOD PRESSURE Last administered on 08/29/16 17:39; Admin Dose 10 MG; Start 07/29/16 at 13:00 Acetaminophen (Tylenol Tab) 650 mg Q6H PRN GTB PAIN1-3/FEVER ABOVE 100 Last administered on 08/12/16at 06:07; Admin Dose 650 MG; Start 08/02/16 at 15:00 Atorvastatin Calcium (Lipitor) 40 mg HS GTB Last administered on 09/02/16 21: 18; Admin Dose 40 MG; Start 08/02/16 at 21:00 Carvedilol (Coreg) 6.25 mg BID GTB Last administered on 09/02/16 08:46; Admin Dose 6.25 MG; Start 08/02/16 at 09:00; Status Future hold Duloxetine HCl (Cymbalta) 90 mg DAILY GTB Last administered on 09/03/16 08:57 ; Admin Dose 90 MG; Start 08/02/16 at 09:00 Guaifenesin (Robitussin Liquid Cup) 100 mg Q4 PRN GTB COUGH; Start 08/02/16 at 09:00 Acetaminophen/ Hydrocodone Bitart ([place] (5/325)) 1 tab Q4 PRN GTB [facility] Last administered on 09/02/16 13:08; Admin Dose 1 TAB; Start 08/02/16 at 09:00 Lactobacillus Acidoph/Bulgaricus (Floranex) 1 tab DAILY GTB Last administered on 09/03/16 08:57; Admin Dose 1 TAB; Start 08/02/16 at 09:00 Lorazepam (Ativan) 1 mg Q6H PRN GTB ANXIETY Last administered on 08/18/16at 10: 45; Admin Dose 1 MG; Start 08/02/16 at 09:00 Multivit/Ca Carb/ B Cmplx/FA/Prenat (Cheryl-Darcie) 1 tab DAILY GTB Last administered on 09/03/16 08:57; Admin Dose 1 TAB; Start 08/02/16 at 09:00 Aspirin (Aspirin) 81 mg DAILY GTB Last administered on 09/03/16 08:57; Admin Dose 81 MG; Start 08/02/16 at 09:00 Lansoprazole (Prevacid) 30 mg DAILY@06 GTB Last administered on 09/03/16 06:52 ; Admin Dose 30 MG; Start 08/02/16 at 10:00 Lorazepam (Ativan) 0.5 mg Q4 PRN IV ANXIETY Last administered on 08/30/16 00: 05; Admin Dose 0.5 MG; Start 08/09/16 at 00:00 Methylprednisolone Sodium Succinate (Solu-Medrol) 20 mg DAILY IV Last administered on 09/03/16 08:57; Admin Dose 20 MG; Start 08/10/16 at 09:00 Miscellaneous Information 1 ea NOTE XX ; Start 08/11/16 at 12:00 Glucose (Glutose) 15 gm Q15M PRN PO DECREASED GLUCOSE; Start 08/11/16 at 12:00 Glucose (Glutose) 22.5 gm Q15M PRN PO DECREASED GLUCOSE; Start 08/11/16 at 12: 00 Dextrose (D50w Syringe) 25 ml Q15M PRN IV DECREASED GLUCOSE Last administered on 08/24/16 12:54; Admin Dose 25 ML; Start 08/11/16 at 12:00 Dextrose (D50w Syringe) 50 ml Q15M PRN IV DECREASED GLUCOSE; Start 08/11/16 at 12:00 Glucagon (Glucagen) 1 mg Q15M PRN IM DECREASED GLUCOSE; Start 08/11/16 at 12: 00 Glucose (Glutose) 15 gm Q15M PRN BUCCAL DECREASED GLUCOSE; Start 08/11/16 at 12:00 IV Flush (NS 10 ml) 10 ml PRN PRN IV IV PROTOCOL Last administered on 05:59; Admin Dose 10 ML; Start 08/13/16 at 18:00 Collagenase (Santyl) 1 applic DAILY@22 TOP Last administered on 09/02/16 21:19 ; Admin Dose 1 APPLIC; Start 08/15/16 at 22:00 Insulin Glargine (Lantus) 25 unit QAM SC Last administered on 09/03/16 09:06; Admin Dose 25 UNIT; Start 08/18/16 at 09:00 Insulin Aspart (Novolog Insulin Pen) NOVOLOG *MODERATE* ALGORI... Q6 SC Last administered on 09/03/16 06:56; Admin Dose 2 UNIT; Start 08/30/16 at 18:00 Sildenafil Citrate (Revatio) 20 mg BID GTB Last administered on 09/03/16 09:06 ; Admin Dose 20 MG; Start 09/01/16 at 21:00 Procedures Procedures CXR 08/30/16: Cardiomegaly . Hypoinflated lungs. Elevation right hemidiaphragm with associated right lower lobe atelectasis/ consolidation. Subsegmental atelectasis in the left lower lobe. JERICHO CRABTREE NP Sep 03, 2016 11:44
--- NOTE | 2016-09-03 11:56 | CONS ---
Date/Time of Note Date/Time of Note DATE: 09/03/16 TIME: 11:54 Assessment/Plan Assessment/Plan Additional Assessment/Plan Respiratory failure status post tracheostomy Sepsis Minimally elevated troponin DVT Diastolic congestive heart failure End-stage renal disease on hemodialysis CAD with history of PCI Diabetes Peripheral arterial disease with history of amputation Pulmonary hypertension NSVT Hypokalemia -less arrhythmias noted on telemetry after potassium supplementation. Would give one additional dose today. Consultation Date/Type/Reason Admit Date/Time Jul 26, 2016 at 01:55 Type of Consultation: cv Referring Provider: GRACIE KATHLEEN 24 HR Interval Summary Free Text/Dictation Patient more awake today, denies chest pain or shortness of breath Exam/Review of Systems Vital Signs Vitals Vital Signs Date Time Temp Pulse Resp B/P Pulse Ox O2 Delivery O2 Flow Rate FiO2 09/03/16 11:15 80 22 100 30 09/03/16 11:00 97.6 130/58 Intake and Output 09/02/16 09/02/16 09/03/16 15:00 23:00 07:00 Intake Total 560 ml 610 ml 610 ml Output Total 300 ml 200 ml Balance 560 ml 310 ml 410 ml Exam Following commands, no apparent distress Constitutional: alert Head: normocephalic Neck: other (tracheostomy), supple Respiratory: other (course breath sounds bilaterally, no wheezing) Cardiovascular: other (S1-S2 heard), regular rate and rhythm Gastrointestinal: bowel sounds, non-tender, soft Extremities: edema Results Result Diagram: 09/03/16 0600 09/03/16 0600 Results 24 hrs Laboratory Tests Test 09/02/16 12:33 09/02/16 12:42 09/02/16 18:03 09/03/16 00:55 Potassium Level 3.1 L Bedside Glucose 205 176 195 Test 09/03/16 05:00 09/03/16 06:00 09/03/16 06:54 Stool Occult Blood NEGATIVE Anion Gap 16 Basophils # 0.0 Basophils % 0.4 Blood Morphology Comment Blood Urea Nitrogen 65 H Calcium Level 7.5 L Carbon Dioxide Level 30 Chloride Level 92 L Creatinine 2.48 H Eosinophils # 0.0 Eosinophils % 0.4 Glucose Level 166 Hematocrit 26.0 L Hemoglobin 8.8 L Lymphocytes # 1.0 Lymphocytes % 13.7 L Magnesium Level 2.2 Mean Corpuscular Hemoglobin 32.6 Mean Corpuscular Hemoglobin Concent 33.8 Mean Corpuscular Volume 96.6 Mean Platelet Volume 7.6 Monocytes # 0.6 Monocytes % 8.4 Neutrophils # 5.7 Neutrophils % 77.1 H Nucleated Red Blood Cells # 0.0 Nucleated Red Blood Cells % 0.0 Phosphorus Level 1.5 L Platelet Count 138 L Potassium Level 3.6 Red Blood Count 2.69 L Red Cell Distribution Width 19.2 H Sodium Level 134 L White Blood Count 7.4 Bedside Glucose 192 Medications Medications Current Medications Fluticasone Propionate (Flonase 0.05% Nasal) 1 spray BID NASAL Last administered on 09/03/16 08:58; Admin Dose 1 SPRAY; Start 07/26/16 at 10:00 Epoetin [place] (Epogen (Esrd)) 10,000 units MoWeFr@17 SC Last administered on 17:14; Admin Dose 10,000 UNITS; Start 07/27/16 at 17:00; Status Future hold Hydralazine HCl (Apresoline) 10 mg Q6H PRN IV ELEVATED BLOOD PRESSURE Last administered on 08/29/16 17:39; Admin Dose 10 MG; Start 07/29/16 at 13:00 Acetaminophen (Tylenol Tab) 650 mg Q6H PRN GTB PAIN1-3/FEVER ABOVE 100 Last administered on 08/12/16at 06:07; Admin Dose 650 MG; Start 08/02/16 at 15:00 Atorvastatin Calcium (Lipitor) 40 mg HS GTB Last administered on 09/02/16 21: 18; Admin Dose 40 MG; Start 08/02/16 at 21:00 Carvedilol (Coreg) 6.25 mg BID GTB Last administered on 09/02/16 08:46; Admin Dose 6.25 MG; Start 08/02/16 at 09:00; Status Future hold Duloxetine HCl (Cymbalta) 90 mg DAILY GTB Last administered on 09/03/16 08:57 ; Admin Dose 90 MG; Start 08/02/16 at 09:00 Guaifenesin (Robitussin Liquid Cup) 100 mg Q4 PRN GTB COUGH; Start 08/02/16 at 09:00 Acetaminophen/ Hydrocodone Bitart ([place] (5/325)) 1 tab Q4 PRN GTB [facility] Last administered on 09/02/16 13:08; Admin Dose 1 TAB; Start 08/02/16 at 09:00 Lactobacillus Acidoph/Bulgaricus (Floranex) 1 tab DAILY GTB Last administered on 09/03/16 08:57; Admin Dose 1 TAB; Start 08/02/16 at 09:00 Lorazepam (Ativan) 1 mg Q6H PRN GTB ANXIETY Last administered on 08/18/16at 10: 45; Admin Dose 1 MG; Start 08/02/16 at 09:00 Multivit/Ca Carb/ B Cmplx/FA/Prenat (Cheryl-Darcie) 1 tab DAILY GTB Last administered on 09/03/16 08:57; Admin Dose 1 TAB; Start 08/02/16 at 09:00 Aspirin (Aspirin) 81 mg DAILY GTB Last administered on 09/03/16 08:57; Admin Dose 81 MG; Start 08/02/16 at 09:00 Lansoprazole (Prevacid) 30 mg DAILY@06 GTB Last administered on 09/03/16 06:52 ; Admin Dose 30 MG; Start 08/02/16 at 10:00 Lorazepam (Ativan) 0.5 mg Q4 PRN IV ANXIETY Last administered on 08/30/16 00: 05; Admin Dose 0.5 MG; Start 08/09/16 at 00:00 Methylprednisolone Sodium Succinate (Solu-Medrol) 20 mg DAILY IV Last administered on 09/03/16 08:57; Admin Dose 20 MG; Start 08/10/16 at 09:00 Miscellaneous Information 1 ea NOTE XX ; Start 08/11/16 at 12:00 Glucose (Glutose) 15 gm Q15M PRN PO DECREASED GLUCOSE; Start 08/11/16 at 12:00 Glucose (Glutose) 22.5 gm Q15M PRN PO DECREASED GLUCOSE; Start 08/11/16 at 12: 00 Dextrose (D50w Syringe) 25 ml Q15M PRN IV DECREASED GLUCOSE Last administered on 08/24/16 12:54; Admin Dose 25 ML; Start 08/11/16 at 12:00 Dextrose (D50w Syringe) 50 ml Q15M PRN IV DECREASED GLUCOSE; Start 08/11/16 at 12:00 Glucagon (Glucagen) 1 mg Q15M PRN IM DECREASED GLUCOSE; Start 08/11/16 at 12: 00 Glucose (Glutose) 15 gm Q15M PRN BUCCAL DECREASED GLUCOSE; Start 08/11/16 at 12:00 IV Flush (NS 10 ml) 10 ml PRN PRN IV IV PROTOCOL Last administered on 05:59; Admin Dose 10 ML; Start 08/13/16 at 18:00 Collagenase (Santyl) 1 applic DAILY@22 TOP Last administered on 09/02/16 21:19 ; Admin Dose 1 APPLIC; Start 08/15/16 at 22:00 Insulin Glargine (Lantus) 25 unit QAM SC Last administered on 09/03/16 09:06; Admin Dose 25 UNIT; Start 08/18/16 at 09:00 Insulin Aspart (Novolog Insulin Pen) NOVOLOG *MODERATE* ALGORI... Q6 SC Last administered on 09/03/16 06:56; Admin Dose 2 UNIT; Start 08/30/16 at 18:00 Sildenafil Citrate (Revatio) 20 mg BID GTB Last administered on 09/03/16 09:06 ; Admin Dose 20 MG; Start 09/01/16 at 21:00 Solo Leon DO Sep 03, 2016 11:56
[2016-09-03] MEDS ORDERED: POTASSIUM CHLORIDE 20 MEQ POWDER FOR ORAL SOLN JT ONE (12:00)
--- NOTE | 2016-09-03 12:11 | CONS ---
Date/Time of Note Date/Time of Note DATE: 09/03/16 TIME: 12:08 Assessment/Plan Assessment/Plan Additional Assessment/Plan 1. CKD to have dialysis today. 2. Low potassiums noted likey from gi loses, will use 4 bath, had non-sustained v tach over the weekend 3. Low P, will replete Consultation Date/Type/Reason Admit Date/Time Jul 26, 2016 at 01:55 Type of Consultation: cv Referring Provider: GRACIE KATHLEEN 24 HR Interval Summary Subjective hx not possible: other (on vent, trach in place,alert) Exam/Review of Systems Vital Signs Vitals Vital Signs Date Time Temp Pulse Resp B/P Pulse Ox O2 Delivery O2 Flow Rate FiO2 09/03/16 11:15 80 22 100 30 09/03/16 11:00 97.6 130/58 Intake and Output 09/02/16 09/02/16 09/03/16 15:00 23:00 07:00 Intake Total 560 ml 610 ml 610 ml Output Total 300 ml 200 ml Balance 560 ml 310 ml 410 ml Exam Neck: No jvd Respiratory: clear to auscultation Cardiovascular: regular rate and rhythm Gastrointestinal: soft Extremities: No edema Results Result Diagram: 09/03/16 0600 09/03/16 0600 Results 24 hrs Laboratory Tests Test 09/02/16 12:33 09/02/16 12:42 09/02/16 18:03 09/03/16 00:55 Potassium Level 3.1 L Bedside Glucose 205 176 195 Test 09/03/16 05:00 09/03/16 06:00 09/03/16 06:54 Stool Occult Blood NEGATIVE Anion Gap 16 Basophils # 0.0 Basophils % 0.4 Blood Morphology Comment Blood Urea Nitrogen 65 H Calcium Level 7.5 L Carbon Dioxide Level 30 Chloride Level 92 L Creatinine 2.48 H Eosinophils # 0.0 Eosinophils % 0.4 Glucose Level 166 Hematocrit 26.0 L Hemoglobin 8.8 L Lymphocytes # 1.0 Lymphocytes % 13.7 L Magnesium Level 2.2 Mean Corpuscular Hemoglobin 32.6 Mean Corpuscular Hemoglobin Concent 33.8 Mean Corpuscular Volume 96.6 Mean Platelet Volume 7.6 Monocytes # 0.6 Monocytes % 8.4 Neutrophils # 5.7 Neutrophils % 77.1 H Nucleated Red Blood Cells # 0.0 Nucleated Red Blood Cells % 0.0 Phosphorus Level 1.5 L Platelet Count 138 L Potassium Level 3.6 Red Blood Count 2.69 L Red Cell Distribution Width 19.2 H Sodium Level 134 L White Blood Count 7.4 Bedside Glucose 192 Medications Medications Current Medications Fluticasone Propionate (Flonase 0.05% Nasal) 1 spray BID NASAL Last administered on 09/03/16 08:58; Admin Dose 1 SPRAY; Start 07/26/16 at 10:00 Epoetin [place] (Epogen (Esrd)) 10,000 units MoWeFr@17 SC Last administered on 17:14; Admin Dose 10,000 UNITS; Start 07/27/16 at 17:00; Status Future hold Hydralazine HCl (Apresoline) 10 mg Q6H PRN IV ELEVATED BLOOD PRESSURE Last administered on 08/29/16 17:39; Admin Dose 10 MG; Start 07/29/16 at 13:00 Acetaminophen (Tylenol Tab) 650 mg Q6H PRN GTB PAIN1-3/FEVER ABOVE 100 Last administered on 08/12/16at 06:07; Admin Dose 650 MG; Start 08/02/16 at 15:00 Atorvastatin Calcium (Lipitor) 40 mg HS GTB Last administered on 09/02/16 21: 18; Admin Dose 40 MG; Start 08/02/16 at 21:00 Carvedilol (Coreg) 6.25 mg BID GTB Last administered on 09/02/16 08:46; Admin Dose 6.25 MG; Start 08/02/16 at 09:00; Status Future hold Duloxetine HCl (Cymbalta) 90 mg DAILY GTB Last administered on 09/03/16 08:57 ; Admin Dose 90 MG; Start 08/02/16 at 09:00 Guaifenesin (Robitussin Liquid Cup) 100 mg Q4 PRN GTB COUGH; Start 08/02/16 at 09:00 Acetaminophen/ Hydrocodone Bitart ([place] (5/325)) 1 tab Q4 PRN GTB WSOB Last administered on 09/02/16 13:08; Admin Dose 1 TAB; Start 08/02/16 at 09:00 Lactobacillus Acidoph/Bulgaricus (Floranex) 1 tab DAILY GTB Last administered on 09/03/16 08:57; Admin Dose 1 TAB; Start 08/02/16 at 09:00 Lorazepam (Ativan) 1 mg Q6H PRN GTB ANXIETY Last administered on 08/18/16at 10: 45; Admin Dose 1 MG; Start 08/02/16 at 09:00 Multivit/Ca Carb/ B Cmplx/FA/Prenat (Cheryl-Darcie) 1 tab DAILY GTB Last administered on 09/03/16 08:57; Admin Dose 1 TAB; Start 08/02/16 at 09:00 Aspirin (Aspirin) 81 mg DAILY GTB Last administered on 09/03/16 08:57; Admin Dose 81 MG; Start 08/02/16 at 09:00 Lansoprazole (Prevacid) 30 mg DAILY@06 GTB Last administered on 09/03/16 06:52 ; Admin Dose 30 MG; Start 08/02/16 at 10:00 Lorazepam (Ativan) 0.5 mg Q4 PRN IV ANXIETY Last administered on 08/30/16 00: 05; Admin Dose 0.5 MG; Start 08/09/16 at 00:00 Methylprednisolone Sodium Succinate (Solu-Medrol) 20 mg DAILY IV Last administered on 09/03/16 08:57; Admin Dose 20 MG; Start 08/10/16 at 09:00 Miscellaneous Information 1 ea NOTE XX ; Start 08/11/16 at 12:00 Glucose (Glutose) 15 gm Q15M PRN PO DECREASED GLUCOSE; Start 08/11/16 at 12:00 Glucose (Glutose) 22.5 gm Q15M PRN PO DECREASED GLUCOSE; Start 08/11/16 at 12: 00 Dextrose (D50w Syringe) 25 ml Q15M PRN IV DECREASED GLUCOSE Last administered on 08/24/16 12:54; Admin Dose 25 ML; Start 08/11/16 at 12:00 Dextrose (D50w Syringe) 50 ml Q15M PRN IV DECREASED GLUCOSE; Start 08/11/16 at 12:00 Glucagon (Glucagen) 1 mg Q15M PRN IM DECREASED GLUCOSE; Start 08/11/16 at 12: 00 Glucose (Glutose) 15 gm Q15M PRN BUCCAL DECREASED GLUCOSE; Start 08/11/16 at 12:00 IV Flush (NS 10 ml) 10 ml PRN PRN IV IV PROTOCOL Last administered on 05:59; Admin Dose 10 ML; Start 08/13/16 at 18:00 Collagenase (Santyl) 1 applic DAILY@22 TOP Last administered on 09/02/16 21:19 ; Admin Dose 1 APPLIC; Start 08/15/16 at 22:00 Insulin Glargine (Lantus) 25 unit QAM SC Last administered on 09/03/16 09:06; Admin Dose 25 UNIT; Start 08/18/16 at 09:00 Insulin Aspart (Novolog Insulin Pen) NOVOLOG *MODERATE* ALGORI... Q6 SC Last administered on 09/03/16 06:56; Admin Dose 2 UNIT; Start 08/30/16 at 18:00 Sildenafil Citrate (Revatio) 20 mg BID GTB Last administered on 09/03/16 09:06 ; Admin Dose 20 MG; Start 09/01/16 at 21:00 JESSICA ROSARIO MD Sep 03, 2016 12:11
[2016-09-03] MEDS ORDERED: SODIUM PHOSPHATE 15 MMOL in SOD CHLORIDE 0.9% 250 ML IVPB ONE (13:00)
[2016-09-03 14:09] LABS: HAAIG REFLEX REFLEX FILED
[2016-09-03 15:29] LABS: HEPATITIS B CORE ANTIBODY NEGATIVE (NEGATIVE)
--- NOTE | 2016-09-03 19:37 | PN ---
Date/Time of Note Date/Time of Note DATE: 09/03/16 TIME: 19:36 Assessment/Plan VTE Prophylaxis VTE Prophylaxis Intervention: SCD's Lines/Catheters IV [facility] Type [facility] PICC Line Central line still needed: Yes Urinary Cath still in place: No Assessment/Plan Chief Complaint/Hosp Course ASSESSMENT AND PLAN: 1. Acute hypoxemic respiratory failure, status post tracheostomy. The patient is followed by Dr. Andrews in pulmonology consultation. 2. Possible pneumonia. status post treatment with antibiotics. The patient is followed by Dr. Hammer. 3. End-stage renal disease on hemodialysis. The patient is followed by Dr. Bassett in nephrology consultation. Continue hemodialysis per nephrology. 3. Diastolic congestive heart failure. Continue fluid removal with dialysis. 4. Dysphagia with percutaneous endoscopic gastrostomy placement. Continue to monitor residual. 5. 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 Continue on acyclovir. 6. Diabetes mellitus. Continue Lantus and NovoLog. 7. Pulmonary hypertension. Continue patient on Revatio. 8. Hyperlipidemia. Continue Lipitor. 9. Peripheral arterial disease status post amputation. 10. Sacral decubitus stage II. Continue current wound care, offloading. Pending Day placement Further recommendations based on clinical course. Plan of care discussed with Dr. Miramontes. Problems: Subjective 24 Hr Interval Summary Free Text/Dictation Patient looks comfortable, no fever, N/V per RN, SR on tele. Exam/Review of Systems Vital Signs Vitals Vital Signs Date Time Temp Pulse Resp B/P Pulse Ox O2 Delivery O2 Flow Rate FiO2 09/03/16 19:29 96 24 100 30 09/03/16 15:08 98.5 118/68 Intake and Output 09/02/16 09/02/16 09/03/16 15:00 23:00 07:00 Intake Total 560 ml 610 ml 610 ml Output Total 300 ml 200 ml Balance 560 ml 310 ml 410 ml Exam GENERAL: Well-developed, well-nourished male, currently on vent support. HEENT: Head is atraumatic, normocephalic. PERRLA. NECK: Supple. Tracheostomy at the base of the neck. LUNGS: Slightly diminished at the bases. Clear in the upper lobes. HEART: Normal S1, S2. No murmurs, gallops, clicks, rubs noted. ABDOMEN: Protuberant, soft, nondistended, nontender. G-tube in place. EXTREMITIES: The patient is status post left BKA. Right lower extremity with mild edema. The patient has a left upper extremity arteriovenous fistula with palpable thrill and audible bruit. SKIN: No rash, petechiae noted. NEUROLOGIC: The patient is awake, alert. Results Result Diagram: 09/03/16 0600 09/03/16 0600 Results 24 hrs Laboratory Tests Test 09/03/16 00:55 09/03/16 05:00 09/03/16 06:00 09/03/16 06:54 Bedside Glucose 195 192 Stool Occult Blood NEGATIVE Anion Gap 16 Basophils # 0.0 Basophils % 0.4 Blood Morphology Comment Blood Urea Nitrogen 65 H Calcium Level 7.5 L Carbon Dioxide Level 30 Chloride Level 92 L Creatinine 2.48 H Eosinophils # 0.0 Eosinophils % 0.4 Glucose Level 166 Hematocrit 26.0 L Hemoglobin 8.8 L Lymphocytes # 1.0 Lymphocytes % 13.7 L Magnesium Level 2.2 Mean Corpuscular Hemoglobin 32.6 Mean Corpuscular Hemoglobin Concent 33.8 Mean Corpuscular Volume 96.6 Mean Platelet Volume 7.6 Monocytes # 0.6 Monocytes % 8.4 Neutrophils # 5.7 Neutrophils % 77.1 H Nucleated Red Blood Cells # 0.0 Nucleated Red Blood Cells % 0.0 Phosphorus Level 1.5 L Platelet Count 138 L Potassium Level 3.6 Red Blood Count 2.69 L Red Cell Distribution Width 19.2 H Sodium Level 134 L White Blood Count 7.4 Test 09/03/16 12:08 09/03/16 14:00 09/03/16 17:32 Bedside Glucose 220 176 Hepatitis B Core Total Antibody NEGATIVE Hepatitis B Surface Antigen NEGATIVE Hepatitis C Antibody Pending Medications Medications Current Medications Fluticasone Propionate (Flonase 0.05% Nasal) 1 spray BID NASAL Last administered on 09/03/16 08:58; Admin Dose 1 SPRAY; Start 07/26/16 at 10:00 Epoetin [place] (Epogen (Esrd)) 10,000 units MoWeFr@17 SC Last administered on 17:14; Admin Dose 10,000 UNITS; Start 07/27/16 at 17:00; Status Future hold Hydralazine HCl (Apresoline) 10 mg Q6H PRN IV ELEVATED BLOOD PRESSURE Last administered on 08/29/16 17:39; Admin Dose 10 MG; Start 07/29/16 at 13:00 Acetaminophen (Tylenol Tab) 650 mg Q6H PRN GTB PAIN1-3/FEVER ABOVE 100 Last administered on 08/12/16at 06:07; Admin Dose 650 MG; Start 08/02/16 at 15:00 Atorvastatin Calcium (Lipitor) 40 mg HS GTB Last administered on 09/02/16 21: 18; Admin Dose 40 MG; Start 08/02/16 at 21:00 Carvedilol (Coreg) 6.25 mg BID GTB Last administered on 09/03/16 12:15; Admin Dose 6.25 MG; Start 08/02/16 at 09:00; Status Future hold Duloxetine HCl (Cymbalta) 90 mg DAILY GTB Last administered on 09/03/16 08:57 ; Admin Dose 90 MG; Start 08/02/16 at 09:00 Guaifenesin (Robitussin Liquid Cup) 100 mg Q4 PRN GTB COUGH; Start 08/02/16 at 09:00 Acetaminophen/ Hydrocodone Bitart ([place] (5/325)) 1 tab Q4 PRN GTB WSOB Last administered on 09/02/16 13:08; Admin Dose 1 TAB; Start 08/02/16 at 09:00 Lactobacillus Acidoph/Bulgaricus (Floranex) 1 tab DAILY GTB Last administered on 09/03/16 08:57; Admin Dose 1 TAB; Start 08/02/16 at 09:00 Lorazepam (Ativan) 1 mg Q6H PRN GTB ANXIETY Last administered on 08/18/16at 10: 45; Admin Dose 1 MG; Start 08/02/16 at 09:00 Multivit/Ca Carb/ B Cmplx/FA/Prenat (Cheryl-Darcie) 1 tab DAILY GTB Last administered on 09/03/16 08:57; Admin Dose 1 TAB; Start 08/02/16 at 09:00 Aspirin (Aspirin) 81 mg DAILY GTB Last administered on 09/03/16 08:57; Admin Dose 81 MG; Start 08/02/16 at 09:00 Lansoprazole (Prevacid) 30 mg DAILY@06 GTB Last administered on 09/03/16 06:52 ; Admin Dose 30 MG; Start 08/02/16 at 10:00 Lorazepam (Ativan) 0.5 mg Q4 PRN IV ANXIETY Last administered on 08/30/16 00: 05; Admin Dose 0.5 MG; Start 08/09/16 at 00:00 Methylprednisolone Sodium Succinate (Solu-Medrol) 20 mg DAILY IV Last administered on 09/03/16 08:57; Admin Dose 20 MG; Start 08/10/16 at 09:00 Miscellaneous Information 1 ea NOTE XX ; Start 08/11/16 at 12:00 Glucose (Glutose) 15 gm Q15M PRN PO DECREASED GLUCOSE; Start 08/11/16 at 12:00 Glucose (Glutose) 22.5 gm Q15M PRN PO DECREASED GLUCOSE; Start 08/11/16 at 12: 00 Dextrose (D50w Syringe) 25 ml Q15M PRN IV DECREASED GLUCOSE Last administered on 08/24/16 12:54; Admin Dose 25 ML; Start 08/11/16 at 12:00 Dextrose (D50w Syringe) 50 ml Q15M PRN IV DECREASED GLUCOSE; Start 08/11/16 at 12:00 Glucagon (Glucagen) 1 mg Q15M PRN IM DECREASED GLUCOSE; Start 08/11/16 at 12: 00 Glucose (Glutose) 15 gm Q15M PRN BUCCAL DECREASED GLUCOSE; Start 08/11/16 at 12:00 IV Flush (NS 10 ml) 10 ml PRN PRN IV IV PROTOCOL Last administered on 05:59; Admin Dose 10 ML; Start 08/13/16 at 18:00 Collagenase (Santyl) 1 applic DAILY@22 TOP Last administered on 09/02/16 21:19 ; Admin Dose 1 APPLIC; Start 08/15/16 at 22:00 Insulin Glargine (Lantus) 25 unit QAM SC Last administered on 09/03/16 09:06; Admin Dose 25 UNIT; Start 08/18/16 at 09:00 Insulin Aspart (Novolog Insulin Pen) NOVOLOG *MODERATE* ALGORI... Q6 SC Last administered on 09/03/16 17:34; Admin Dose 2 UNIT; Start 08/30/16 at 18:00 Sildenafil Citrate (Revatio) 20 mg BID GTB Last administered on 09/03/16 09:06 ; Admin Dose 20 MG; Start 09/01/16 at 21:00 MARY DOMINGUEZ Sep 03, 2016 19:37
[2016-09-03] MEDS: ATORVASTATIN 40 MG TAB GTB SCH (22:00)
[2016-09-03] MEDS: COLLAGENASE 30 GM TUBE TOP SCH (22:02)
[2016-09-03] MEDS: LORAZEPAM 2 MG INJ IV PRN (22:45)
[2016-09-04] VITALS (31 sets, daily range): BP systolic 113–178; BP diastolic 42–78; PULSE 68–91; RESP 19–27
[2016-09-04] MEDS: INSULIN ASPART [NOVOLOG] 3 ML PEN SC SCH ×5 (00:32→23:31)
[2016-09-04] MEDS: IPRATROPIUM (HFA) 12.9 GM INHALER INH SCH ×4 (01:30→20:19)
[2016-09-04] MEDS: ALBUTEROL HFA 8 GM INHALER INH SCH ×4 (01:30→20:19)
[2016-09-04] MEDS: LANSOPRAZOLE 30 MG CAP GTB SCH (05:01)
[2016-09-04 07:10] LABS: POTASSIUM 3.9 mmol/L (3.5-5.1)
[2016-09-04 07:13] LABS: CREATININE 2.83 mg/dl (0.61-1.24)
[2016-09-04 07:14] LABS: CALCIUM 7.5 mg/dl (8.4-10.2); PHOSPHORUS 1.6 mg/dl (2.5-4.9)
[2016-09-04 07:30] LABS: BASOPHILS % 0.4 % (0.0-2.0); EOSINOPHILS % 0.4 % (0.0-7.0); HEMOGLOBIN 8.2 g/dl (14.0-18.0); LYMPHOCYTES # 0.8 10^3/ul (0.8-2.9); LYMPHOCYTES % 10.8 % (15.0-51.0); MEAN CORPUSCULAR HEMOGLOBIN 32.9 pg (29.0-33.0); MEAN CORPUSCULAR HGB CONC 34.3 g/dl (32.0-37.0); MEAN CORPUSCULAR VOLUME 95.9 fl (82.0-101.0); MEAN PLATELET VOLUME 7.5 fl (7.4-10.4); MONOCYTE # 0.5 10^3/ul (0.3-0.9); MONOCYTES % 6.9 % (0.0-11.0); NEUTROPHIL # 6.4 10^3/ul (1.6-7.5); NEUTROPHILS % 81.5 % (39.0-77.0); PLATELET COUNT 153 10^3/UL (140-440); RED BLOOD COUNT 2.51 10^6/ul (4.70-6.10); RED CELL DISTRIBUTION WIDTH 18.5 % (11.5-14.5); UNCORRECTED WBC 7.8 10^3/ul (4.8-10.8); WHITE BLOOD COUNT 7.8 10^3/ul (4.8-10.8)
[2016-09-04 07:46] LABS: CONDITION 1; LH ANALYZER COMMENTS 1
--- NOTE | 2016-09-04 08:10 | CONS ---
Date/Time of Note Date/Time of Note DATE: 09/04/16 TIME: 08:07 Assessment/Plan Assessment/Plan Chief Complaint/Hosp Course dialysis today Problems: (1) ESRD needing dialysis Comment: for planned HD today (2) Diabetes mellitus Comment: well controlled (3) CHF (congestive heart failure) Comment: inactive and controlled w HD (4) Respiratory failure, acute and chronic Comment: stable on the vent via trach Consultation Date/Type/Reason Admit Date/Time Jul 26, 2016 at 01:55 Initial Consult Date 07/29/16 Type of Consultation: neph Reason for Consultation esrd f/u Referring Provider: GRACIE KATHLEEN 24 HR Interval Summary Free Text/Dictation pt is awake/alert on the vent... no distress... for planned HD today Exam/Review of Systems Vital Signs Vitals Vital Signs Date Time Temp Pulse Resp B/P Pulse Ox O2 Delivery O2 Flow Rate FiO2 09/04/16 07:57 74 23 100 30 09/04/16 06:51 97.7 124/47 Intake and Output 09/03/16 09/03/16 09/04/16 15:00 23:00 07:00 Intake Total 915 ml 580 ml Output Total 400 ml 200 ml Balance 515 ml 380 ml Exam Constitutional: alert Neck: non-tender Respiratory: clear to auscultation Cardiovascular: regular rate and rhythm Musculoskeletal: other (fxn LUE AVF) Results Result Diagram: 09/04/1628 09/04/1628 Results 24 hrs Laboratory Tests Test 09/03/16 12:08 09/03/16 14:00 09/03/16 17:32 09/04/16 00:27 Bedside Glucose 220 176 154 Hepatitis B Core Total Antibody NEGATIVE Hepatitis B Surface Antigen NEGATIVE Hepatitis C Antibody REACTIVE H Test 09/04/16 05:02 09/04/16 06:28 Bedside Glucose 159 Anion Gap 17 H Basophils # 0.0 Basophils % 0.4 Blood Morphology Comment Blood Urea Nitrogen 82 H Calcium Level 7.5 L Carbon Dioxide Level 28 Chloride Level 91 L Creatinine 2.83 H Eosinophils # 0.0 Eosinophils % 0.4 Glucose Level 132 Hematocrit 24.0 L Hemoglobin 8.2 L Lymphocytes # 0.8 Lymphocytes % 10.8 L Mean Corpuscular Hemoglobin 32.9 Mean Corpuscular Hemoglobin Concent 34.3 Mean Corpuscular Volume 95.9 Mean Platelet Volume 7.5 Monocytes # 0.5 Monocytes % 6.9 Neutrophils # 6.4 Neutrophils % 81.5 H Nucleated Red Blood Cells # 0.0 Nucleated Red Blood Cells % 0.0 Phosphorus Level 1.6 L Platelet Count 153 Potassium Level 3.9 Red Blood Count 2.51 L Red Cell Distribution Width 18.5 H Sodium Level 132 L White Blood Count 7.8 Medications Medications Current Medications Fluticasone Propionate (Flonase 0.05% Nasal) 1 spray BID NASAL Last administered on 09/03/16 22:01; Start 07/26/16 at 10:00 Epoetin [place] (Epogen (Esrd)) 10,000 units MoWeFr@17 SC Last administered on 17:14; Start 07/27/16 at 17:00; Status Future hold Hydralazine HCl (Apresoline) 10 mg Q6H PRN IV ELEVATED BLOOD PRESSURE Last administered on 08/29/16 17:39; Start 07/29/16 at 13:00 Acetaminophen (Tylenol Tab) 650 mg Q6H PRN GTB PAIN1-3/FEVER ABOVE 100 Last administered on 08/12/16at 06:07; Start 08/02/16 at 15:00 Atorvastatin Calcium (Lipitor) 40 mg HS GTB Last administered on 09/03/16 22: 00; Start 08/02/16 at 21:00 Carvedilol (Coreg) 6.25 mg BID GTB Last administered on 09/03/16 22:01; Start 08/02/16 at 09:00; Status Future hold Duloxetine HCl (Cymbalta) 90 mg DAILY GTB Last administered on 09/03/16 08:57 ; Start 08/02/16 at 09:00 Guaifenesin (Robitussin Liquid Cup) 100 mg Q4 PRN GTB COUGH; Start 08/02/16 at 09:00 Acetaminophen/ Hydrocodone Bitart ([place] (5/325)) 1 tab Q4 PRN GTB WSOB Last administered on 09/02/16 13:08; Start 08/02/16 at 09:00 Lactobacillus Acidoph/Bulgaricus (Floranex) 1 tab DAILY GTB Last administered on 09/03/16 08:57; Start 08/02/16 at 09:00 Lorazepam (Ativan) 1 mg Q6H PRN GTB ANXIETY Last administered on 08/18/16at 10: 45; Start 08/02/16 at 09:00 Multivit/Ca Carb/ B Cmplx/FA/Prenat (Cheryl-Darcie) 1 tab DAILY GTB Last administered on 09/03/16 08:57; Start 08/02/16 at 09:00 Aspirin (Aspirin) 81 mg DAILY GTB Last administered on 09/03/16 08:57; Start 08/02/16 at 09:00 Lansoprazole (Prevacid) 30 mg DAILY@06 GTB Last administered on 09/04/16 05:01 ; Start 08/02/16 at 10:00 Lorazepam (Ativan) 0.5 mg Q4 PRN IV ANXIETY Last administered on 09/03/16 22: 45; Start 08/09/16 at 00:00 Methylprednisolone Sodium Succinate (Solu-Medrol) 20 mg DAILY IV Last administered on 09/03/16 08:57; Start 08/10/16 at 09:00 Miscellaneous Information 1 ea NOTE XX ; Start 08/11/16 at 12:00 Glucose (Glutose) 15 gm Q15M PRN PO DECREASED GLUCOSE; Start 08/11/16 at 12:00 Glucose (Glutose) 22.5 gm Q15M PRN PO DECREASED GLUCOSE; Start 08/11/16 at 12: 00 Dextrose (D50w Syringe) 25 ml Q15M PRN IV DECREASED GLUCOSE Last administered on 08/24/16 12:54; Start 08/11/16 at 12:00 Dextrose (D50w Syringe) 50 ml Q15M PRN IV DECREASED GLUCOSE; Start 08/11/16 at 12:00 Glucagon (Glucagen) 1 mg Q15M PRN IM DECREASED GLUCOSE; Start 08/11/16 at 12: 00 Glucose (Glutose) 15 gm Q15M PRN BUCCAL DECREASED GLUCOSE; Start 08/11/16 at 12:00 IV Flush (NS 10 ml) 10 ml PRN PRN IV IV PROTOCOL Last administered on 05:59; Start 08/13/16 at 18:00 Collagenase (Santyl) 1 applic DAILY@22 TOP Last administered on 09/03/16 22:02 ; Start 08/15/16 at 22:00 Insulin Glargine (Lantus) 25 unit QAM SC Last administered on 09/03/16 09:06; Start 08/18/16 at 09:00 Insulin Aspart (Novolog Insulin Pen) NOVOLOG *MODERATE* ALGORI... Q6 SC Last administered on 09/04/16 05:04; Start 08/30/16 at 18:00 Sildenafil Citrate (Revatio) 20 mg BID GTB Last administered on 09/03/16 22:01 ; Start 09/01/16 at 21:00 MOSES GUAJARDO MD Sep 04, 2016 08:10
[2016-09-04] MEDS: ASPIRIN 81 MG TAB GTB SCH (08:46)
[2016-09-04] MEDS: LACTOBACILLUS CHEW TAB GTB SCH (08:46)
[2016-09-04] MEDS: DULOXETINE 30 MG CAP DR GTB SCH (08:46)
[2016-09-04] MEDS: MULTIVIT/CA CARB/B CMPLX/FA TAB GTB SCH (08:46)
[2016-09-04] MEDS: FLUTICASONE 0.05% 16 GM NAS SPRAY NASAL SCH ×2 (08:47→23:28)
[2016-09-04] MEDS: METHYLPREDNISOLONE 40 MG INJ IV SCH (08:47)
[2016-09-04] MEDS: SILDENAFIL 20 MG TAB GTB SCH ×2 (08:51→23:27)
[2016-09-04] MEDS: INSULIN GLARGINE [LANtus] 3 ML PEN SC SCH (08:51)
[2016-09-04] MEDS ORDERED: SODIUM PHOSPHATE 20 MEQ in SOD CHLORIDE 0.9% 250 ML IVPB ONE (09:30)
[2016-09-04] MEDS: EPOETIN 10000 UNITS/1 ML INJ (ESRD) SC SCH (10:56)
--- NOTE | 2016-09-04 13:18 | CONS ---
Date/Time of Note Date/Time of Note DATE: 09/04/16 TIME: 13:16 Assessment/Plan Assessment/Plan Additional Assessment/Plan Respiratory failure status post tracheostomy Sepsis Minimally elevated troponin DVT Diastolic congestive heart failure End-stage renal disease on hemodialysis CAD with history of PCI Diabetes Peripheral arterial disease with history of amputation Pulmonary hypertension NSVT -No significant malignant arrhythmias seen on telemetry past 24 hours, potassium has improved. Continue beta shivani as blood pressure permits. Consultation Date/Type/Reason Admit Date/Time Jul 26, 2016 at 01:55 Type of Consultation: cv Referring Provider: GRACIE KATHLEEN 24 HR Interval Summary Free Text/Dictation Patient denies shortness of breath, chest pain or palpitations Exam/Review of Systems Vital Signs Vitals Vital Signs Date Time Temp Pulse Resp B/P Pulse Ox O2 Delivery O2 Flow Rate FiO2 09/04/16 12:27 70 09/04/16 11:55 20 99 30 09/04/16 11:33 98.2 113/52 Intake and Output 09/03/16 09/03/16 09/04/16 15:00 23:00 07:00 Intake Total 915 ml 580 ml Output Total 400 ml 200 ml Balance 515 ml 380 ml Exam No apparent distress, following commands Constitutional: alert Head: normocephalic Neck: other (tracheostomy) Respiratory: other (course breath sounds bilaterally, no wheezing) Cardiovascular: other (S1-S2 heard), regular rate and rhythm Gastrointestinal: bowel sounds, non-tender, soft Extremities: edema Results Result Diagram: 09/04/16 0628 09/04/16 0628 Results 24 hrs Laboratory Tests Test 09/03/16 14:00 09/03/16 17:32 09/04/16 00:27 09/04/16 05:02 Hepatitis B Core Total Antibody NEGATIVE Hepatitis B Surface Antigen NEGATIVE Hepatitis C Antibody REACTIVE H Bedside Glucose 176 154 159 Test 09/04/16 06:28 09/04/16 11:56 Anion Gap 17 H Basophils # 0.0 Basophils % 0.4 Blood Morphology Comment Blood Urea Nitrogen 82 H Calcium Level 7.5 L Carbon Dioxide Level 28 Chloride Level 91 L Creatinine 2.83 H Eosinophils # 0.0 Eosinophils % 0.4 Glucose Level 132 Hematocrit 24.0 L Hemoglobin 8.2 L Lymphocytes # 0.8 Lymphocytes % 10.8 L Mean Corpuscular Hemoglobin 32.9 Mean Corpuscular Hemoglobin Concent 34.3 Mean Corpuscular Volume 95.9 Mean Platelet Volume 7.5 Monocytes # 0.5 Monocytes % 6.9 Neutrophils # 6.4 Neutrophils % 81.5 H Nucleated Red Blood Cells # 0.0 Nucleated Red Blood Cells % 0.0 Phosphorus Level 1.6 L Platelet Count 153 Potassium Level 3.9 Red Blood Count 2.51 L Red Cell Distribution Width 18.5 H Sodium Level 132 L White Blood Count 7.8 Bedside Glucose 191 Medications Medications Current Medications Fluticasone Propionate (Flonase 0.05% Nasal) 1 spray BID NASAL Last administered on 09/04/16 08:47; Admin Dose 1 SPRAY; Start 07/26/16 at 10:00 Epoetin [place] (Epogen (Esrd)) 10,000 units MoWeFr@17 SC Last administered on 10:56; Admin Dose 10,000 UNITS; Start 07/27/16 at 17:00; Status Future hold Hydralazine HCl (Apresoline) 10 mg Q6H PRN IV ELEVATED BLOOD PRESSURE Last administered on 08/29/16 17:39; Admin Dose 10 MG; Start 07/29/16 at 13:00 Acetaminophen (Tylenol Tab) 650 mg Q6H PRN GTB PAIN1-3/FEVER ABOVE 100 Last administered on 08/12/16at 06:07; Admin Dose 650 MG; Start 08/02/16 at 15:00 Atorvastatin Calcium (Lipitor) 40 mg HS GTB Last administered on 09/03/16 22: 00; Admin Dose 40 MG; Start 08/02/16 at 21:00 Carvedilol (Coreg) 6.25 mg BID GTB Last administered on 09/03/16 22:01; Admin Dose 6.25 MG; Start 08/02/16 at 09:00; Status Future hold Duloxetine HCl (Cymbalta) 90 mg DAILY GTB Last administered on 09/04/16 08:46 ; Admin Dose 90 MG; Start 08/02/16 at 09:00 Guaifenesin (Robitussin Liquid Cup) 100 mg Q4 PRN GTB COUGH; Start 08/02/16 at 09:00 Acetaminophen/ Hydrocodone Bitart ([place] (5/325)) 1 tab Q4 PRN GTB WSOB Last administered on 09/02/16 13:08; Admin Dose 1 TAB; Start 08/02/16 at 09:00 Lactobacillus Acidoph/Bulgaricus (Floranex) 1 tab DAILY GTB Last administered on 09/04/16 08:46; Admin Dose 1 TAB; Start 08/02/16 at 09:00 Lorazepam (Ativan) 1 mg Q6H PRN GTB ANXIETY Last administered on 08/18/16at 10: 45; Admin Dose 1 MG; Start 08/02/16 at 09:00 Multivit/Ca Carb/ B Cmplx/FA/Prenat (Cheryl-Darcie) 1 tab DAILY GTB Last administered on 09/04/16 08:46; Admin Dose 1 TAB; Start 08/02/16 at 09:00 Aspirin (Aspirin) 81 mg DAILY GTB Last administered on 09/04/16 08:46; Admin Dose 81 MG; Start 08/02/16 at 09:00 Lansoprazole (Prevacid) 30 mg DAILY@06 GTB Last administered on 09/04/16 05:01 ; Admin Dose 30 MG; Start 08/02/16 at 10:00 Lorazepam (Ativan) 0.5 mg Q4 PRN IV ANXIETY Last administered on 09/03/16 22: 45; Admin Dose 0.5 MG; Start 08/09/16 at 00:00 Methylprednisolone Sodium Succinate (Solu-Medrol) 20 mg DAILY IV Last administered on 09/04/16 08:47; Admin Dose 20 MG; Start 08/10/16 at 09:00 Miscellaneous Information 1 ea NOTE XX ; Start 08/11/16 at 12:00 Glucose (Glutose) 15 gm Q15M PRN PO DECREASED GLUCOSE; Start 08/11/16 at 12:00 Glucose (Glutose) 22.5 gm Q15M PRN PO DECREASED GLUCOSE; Start 08/11/16 at 12: 00 Dextrose (D50w Syringe) 25 ml Q15M PRN IV DECREASED GLUCOSE Last administered on 08/24/16 12:54; Admin Dose 25 ML; Start 08/11/16 at 12:00 Dextrose (D50w Syringe) 50 ml Q15M PRN IV DECREASED GLUCOSE; Start 08/11/16 at 12:00 Glucagon (Glucagen) 1 mg Q15M PRN IM DECREASED GLUCOSE; Start 08/11/16 at 12: 00 Glucose (Glutose) 15 gm Q15M PRN BUCCAL DECREASED GLUCOSE; Start 08/11/16 at 12:00 IV Flush (NS 10 ml) 10 ml PRN PRN IV IV PROTOCOL Last administered on 05:59; Admin Dose 10 ML; Start 08/13/16 at 18:00 Collagenase (Santyl) 1 applic DAILY@22 TOP Last administered on 09/03/16 22:02 ; Admin Dose 1 APPLIC; Start 08/15/16 at 22:00 Insulin Glargine (Lantus) 25 unit QAM SC Last administered on 09/04/16 08:51; Admin Dose 25 UNIT; Start 08/18/16 at 09:00 Insulin Aspart (Novolog Insulin Pen) NOVOLOG *MODERATE* ALGORI... Q6 SC Last administered on 09/04/16 12:00; Admin Dose 4 UNIT; Start 08/30/16 at 18:00 Sildenafil Citrate 20 mg 20 mg BID GTB Last administered on 09/03/16 22:01; Admin Dose 20 MG; Start 09/01/16 at 21:00 Sodium Phosphate/ Sodium Chloride (Sodium Phosphate/NS) 255 ml @ 63.75 mls/ hr ONCE ONCE IVPB Last administered on 09/04/16 10:54; Admin Dose 63.75 MLS/HR; Start 09/04/16 at 09:30; Stop 09/04/16 at 13:29 Solo Leon DO Sep 04, 2016 13:18
--- NOTE | 2016-09-04 14:10 | PN ---
Date/Time of Note Date/Time of Note DATE: 09/04/16 TIME: 14:08 Assessment/Plan VTE Prophylaxis VTE Prophylaxis Intervention: SCD's Lines/Catheters IV Catheter Type (from [facility] PICC Line Central line still needed: Yes Urinary Cath still in place: No Assessment/Plan Chief Complaint/Hosp Course ASSESSMENT AND PLAN: 1. Acute hypoxemic respiratory failure, status post tracheostomy. The patient is followed by Dr. Andrews in pulmonology consultation. 2. Possible pneumonia. status post treatment with antibiotics. The patient is followed by Dr. Hammer. 3. End-stage renal disease on hemodialysis. The patient is followed by Dr. Bassett in nephrology consultation. Continue hemodialysis per nephrology. 3. Diastolic congestive heart failure. Continue fluid removal with dialysis. 4. Dysphagia with percutaneous endoscopic gastrostomy placement. Continue to monitor residual. 5. 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 Continue on acyclovir. 6. Diabetes mellitus. Continue Lantus and NovoLog. 7. Pulmonary hypertension. Continue patient on Revatio. 8. Hyperlipidemia. Continue Lipitor. 9. Peripheral arterial disease status post amputation. 10. Sacral decubitus stage II. Continue current wound care, offloading. Pending Day placement Further recommendations based on clinical course. Plan of care discussed with Dr. Miramontes. Problems: Subjective 24 Hr Interval Summary Free Text/Dictation Patient is comfortable on vent, tolerates G-tube feeding well, no fever stable vital signs. Exam/Review of Systems Vital Signs Vitals Vital Signs Date Time Temp Pulse Resp B/P Pulse Ox O2 Delivery O2 Flow Rate FiO2 09/04/16 13:46 79 20 99 30 09/04/16 11:33 98.2 113/52 Intake and Output 09/03/16 09/03/16 09/04/16 15:00 23:00 07:00 Intake Total 915 ml 580 ml Output Total 400 ml 200 ml Balance 515 ml 380 ml Exam GENERAL: Well-developed, well-nourished male, currently on vent support. HEENT: Head is atraumatic, normocephalic. PERRLA. NECK: Supple. Tracheostomy at the base of the neck. LUNGS: Slightly diminished at the bases. Clear in the upper lobes. HEART: Normal S1, S2. No murmurs, gallops, clicks, rubs noted. ABDOMEN: Protuberant, soft, nondistended, nontender. G-tube in place. EXTREMITIES: The patient is status post left BKA. Right lower extremity with mild edema. The patient has a left upper extremity arteriovenous fistula with palpable thrill and audible bruit. SKIN: No rash, petechiae noted. NEUROLOGIC: The patient is awake, alert. Results Result Diagram: 09/04/16 0628 09/04/16 0628 Results 24 hrs Laboratory Tests Test 09/03/16 17:32 09/04/16 00:27 09/04/16 05:02 09/04/16 06:28 Bedside Glucose 176 154 159 Anion Gap 17 H Basophils # 0.0 Basophils % 0.4 Blood Morphology Comment Blood Urea Nitrogen 82 H Calcium Level 7.5 L Carbon Dioxide Level 28 Chloride Level 91 L Creatinine 2.83 H Eosinophils # 0.0 Eosinophils % 0.4 Glucose Level 132 Hematocrit 24.0 L Hemoglobin 8.2 L Lymphocytes # 0.8 Lymphocytes % 10.8 L Mean Corpuscular Hemoglobin 32.9 Mean Corpuscular Hemoglobin Concent 34.3 Mean Corpuscular Volume 95.9 Mean Platelet Volume 7.5 Monocytes # 0.5 Monocytes % 6.9 Neutrophils # 6.4 Neutrophils % 81.5 H Nucleated Red Blood Cells # 0.0 Nucleated Red Blood Cells % 0.0 Phosphorus Level 1.6 L Platelet Count 153 Potassium Level 3.9 Red Blood Count 2.51 L Red Cell Distribution Width 18.5 H Sodium Level 132 L White Blood Count 7.8 Test 09/04/16 11:56 Bedside Glucose 191 Medications Medications Current Medications Fluticasone Propionate (Flonase 0.05% Nasal) 1 spray BID NASAL Last administered on 09/04/16 08:47; Admin Dose 1 SPRAY; Start 07/26/16 at 10:00 Epoetin [place] (Epogen (Esrd)) 10,000 units MoWeFr@17 SC Last administered on 10:56; Admin Dose 10,000 UNITS; Start 07/27/16 at 17:00; Status Future hold Hydralazine HCl (Apresoline) 10 mg Q6H PRN IV ELEVATED BLOOD PRESSURE Last administered on 08/29/16 17:39; Admin Dose 10 MG; Start 07/29/16 at 13:00 Acetaminophen (Tylenol Tab) 650 mg Q6H PRN GTB PAIN1-3/FEVER ABOVE 100 Last administered on 08/12/16 06:07; Admin Dose 650 MG; Start 08/02/16 at 15:00 Atorvastatin Calcium (Lipitor) 40 mg HS GTB Last administered on 09/03/16 22: 00; Admin Dose 40 MG; Start 08/02/16 at 21:00 Carvedilol (Coreg) 6.25 mg BID GTB Last administered on 09/03/16 22:01; Admin Dose 6.25 MG; Start 08/02/16 at 09:00; Status Future hold Duloxetine HCl (Cymbalta) 90 mg DAILY GTB Last administered on 09/04/16 08:46 ; Admin Dose 90 MG; Start 08/02/16 at 09:00 Guaifenesin (Robitussin Liquid Cup) 100 mg Q4 PRN GTB COUGH; Start 08/02/16 at 09:00 Acetaminophen/ Hydrocodone Bitart ([place] (5/325)) 1 tab Q4 PRN GTB WSOB Last administered on 09/02/16 13:08; Admin Dose 1 TAB; Start 08/02/16 at 09:00 Lactobacillus Acidoph/Bulgaricus (Floranex) 1 tab DAILY GTB Last administered on 09/04/16 08:46; Admin Dose 1 TAB; Start 08/02/16 at 09:00 Lorazepam (Ativan) 1 mg Q6H PRN GTB ANXIETY Last administered on 08/18/16at 10: 45; Admin Dose 1 MG; Start 08/02/16 at 09:00 Multivit/Ca Carb/ B Cmplx/FA/Prenat (Cheryl-Darcie) 1 tab DAILY GTB Last administered on 09/04/16 08:46; Admin Dose 1 TAB; Start 08/02/16 at 09:00 Aspirin (Aspirin) 81 mg DAILY GTB Last administered on 09/04/16 08:46; Admin Dose 81 MG; Start 08/02/16 at 09:00 Lansoprazole (Prevacid) 30 mg DAILY@06 GTB Last administered on 09/04/16 05:01 ; Admin Dose 30 MG; Start 08/02/16 at 10:00 Lorazepam (Ativan) 0.5 mg Q4 PRN IV ANXIETY Last administered on 09/03/16 22: 45; Admin Dose 0.5 MG; Start 08/09/16 at 00:00 Methylprednisolone Sodium Succinate (Solu-Medrol) 20 mg DAILY IV Last administered on 09/04/16 08:47; Admin Dose 20 MG; Start 08/10/16 at 09:00 Miscellaneous Information 1 ea NOTE XX ; Start 08/11/16 at 12:00 Glucose (Glutose) 15 gm Q15M PRN PO DECREASED GLUCOSE; Start 08/11/16 at 12:00 Glucose (Glutose) 22.5 gm Q15M PRN PO DECREASED GLUCOSE; Start 08/11/16 at 12: 00 Dextrose (D50w Syringe) 25 ml Q15M PRN IV DECREASED GLUCOSE Last administered on 08/24/16 12:54; Admin Dose 25 ML; Start 08/11/16 at 12:00 Dextrose (D50w Syringe) 50 ml Q15M PRN IV DECREASED GLUCOSE; Start 08/11/16 at 12:00 Glucagon (Glucagen) 1 mg Q15M PRN IM DECREASED GLUCOSE; Start 08/11/16 at 12: 00 Glucose (Glutose) 15 gm Q15M PRN BUCCAL DECREASED GLUCOSE; Start 08/11/16 at 12:00 IV Flush (NS 10 ml) 10 ml PRN PRN IV IV PROTOCOL Last administered on 05:59; Admin Dose 10 ML; Start 08/13/16 at 18:00 Collagenase (Santyl) 1 applic DAILY@22 TOP Last administered on 09/03/16 22:02 ; Admin Dose 1 APPLIC; Start 08/15/16 at 22:00 Insulin Glargine (Lantus) 25 unit QAM SC Last administered on 09/04/16 08:51; Admin Dose 25 UNIT; Start 08/18/16 at 09:00 Insulin Aspart (Novolog Insulin Pen) NOVOLOG *MODERATE* ALGORI... Q6 SC Last administered on 09/04/16 12:00; Admin Dose 4 UNIT; Start 08/30/16 at 18:00 Sildenafil Citrate (Revatio) 20 mg BID GTB Last administered on 09/03/16 22:01 ; Admin Dose 20 MG; Start 09/01/16 at 21:00 MARY DOMINGUEZ Sep 04, 2016 14:10
--- NOTE | 2016-09-04 15:18 | PN ---
DATE: 09/04/2016 Patient has remained stable, no new events. PHYSICAL EXAMINATION: VITAL SIGNS: Temperature 98, pulse is 79, blood pressure 113/52, O2 saturation 96%, FIO2 of 30%. NECK: Trach site clean and intact. CARDIAC: S1, S2, no added sounds or murmurs. CHEST: Diminished air entry bilaterally. No rales or wheezes. ABDOMEN: Soft, nontender. No guarding or rebound. EXTREMITIES: No cyanosis, clubbing, edema. NEUROLOGIC: Grossly intact. No focal deficits. LABORATORY DATA: White count 7.8, hemoglobin 8.2, platelets 153. BUN 82, creatinine 2.83. IMPRESSION AND PLAN: 1. Vent dependent respiratory failure. 2. Status post septic shock. 3. End-stage renal failure on hemodialysis. 4. Dysphagia with G-tube. 5. Encephalopathy, likely toxic metabolic. PLAN: 1. Continue vent support. 2. Tube feeding. 3. Hemodialysis as tolerated. 4. Wound care. 5. DVT and GI prophylaxis. 6. Placement . Dictated By: VALERIE GOODE/OLESYA Conf#: [id number] DID#: [id number]
--- NOTE | 2016-09-04 18:09 | CONS ---
Date/Time of Note Date/Time of Note DATE: 09/04/16 TIME: 18:05 Assessment/Plan Assessment/Plan Chief Complaint/Hosp Course - VDRF s/p trach - S/p aspiration PNA: respiratory Cx on 08/10 grew MSSA and C. Albicans - S/p septic shock - S/p C diff colitis, last C diff test on 08/24/2016 negative - Persistent diarrhea - S/p intermittent fever - h/o RUE cellulitis complicated by axillary/cephalic venous thrombosis - toxic metabolic encephalopathy - ESRD on HD - hypokalemia - hypomagnesium - NSVT - diastolic CHF - CAD with Hx PCI - paroxysmal atrial tachycardia - old partial DVT of the right internal jugular vein. - PAD Hx Left BKA - underlying Parkinson's disease - stage 2 coccyx decub - PCN allergic - dysphagia d/p G tube - thrombocytopenia - borderline positive [id number] level. 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 (2016-08/30/2016) - s/p imipenem (08/05- 08/14), IV vanco (07/29-08/13), aztreonam (07/29-08/05), cefazolin (08/14-08/23), caspo (08/11-08/23), pGT vanco (08/06-08/25) - DNR Recommendations: - Monitor closely off abx - DC planning in progress (possible DC tomorrow); awaiting subacute placement that will accommodate HD - Above d/w Dr. Alexander Problems: Consultation Date/Type/Reason Admit Date/Time Jul 26, 2016 at 01:55 Initial Consult Date 07/29/16 Type of Consultation: Infectious Disease Referring Provider: GRACIE KATHLEEN 24 HR Interval Summary Free Text/Dictation Remains afebrile and pt was accepted by subacute facility ([facility]) but awaiting finalization for outpt HD per JUAN MIGUEL Lucio. Nods yes to back pain and mild SOB. Nods no to n/v. ROS limited d/t difficulty reading lips. Exam/Review of Systems Vital Signs Vitals Vital Signs Date Time Temp Pulse Resp B/P Pulse Ox O2 Delivery O2 Flow Rate FiO2 09/04/16 17:30 89 20 100 30 09/04/16 15:26 97.8 121/42 Intake and Output 09/03/16 09/03/16 09/04/16 15:00 23:00 07:00 Intake Total 915 ml 580 ml Output Total 400 ml 200 ml Balance 515 ml 380 ml Exam Constitutional: frail, other (chronically debilitated) Head: atraumatic, normocephalic Neck: other (trach midline without leak) Respiratory: Diminished breath sounds, otherwise clear. No wheezing Cardiovascular: regular rate and rhythm, normal S1 and S2 Gastrointestinal: soft, bowel sounds present, other (GT with TF intact; rectal tube intact with small amount of stool in tubing). Extremities: edema, other (LLE BKA noted; LUE AVF with + bruit/thrill; left middle finger partial amputation noted) Neurological: More alert and interactive and trying to mouth out words; Selectively follows command. Eyes open, +tracking. Skin: ecchymosis (scattered BUE), nl turgor, other (RUE PICC c/d/i). Wound ( coccyx stage 2 with dressing c/d/i and perianal area with dermatitis d/t incontinence - See Nurses note for details), Other (Few healing blisters on left cheek). Results Result Diagram: 09/04/1662709/04/16627 Results 24 hrs Laboratory Tests Test 09/04/16 00:27 09/04/16 05:02 09/04/16 06:28 09/04/16 11:56 Bedside Glucose 154 159 191 Anion Gap 17 H Basophils # 0.0 Basophils % 0.4 Blood Morphology Comment Blood Urea Nitrogen 82 H Calcium Level 7.5 L Carbon Dioxide Level 28 Chloride Level 91 L Creatinine 2.83 H Eosinophils # 0.0 Eosinophils % 0.4 Glucose Level 132 Hematocrit 24.0 L Hemoglobin 8.2 L Lymphocytes # 0.8 Lymphocytes % 10.8 L Mean Corpuscular Hemoglobin 32.9 Mean Corpuscular Hemoglobin Concent 34.3 Mean Corpuscular Volume 95.9 Mean Platelet Volume 7.5 Monocytes # 0.5 Monocytes % 6.9 Neutrophils # 6.4 Neutrophils % 81.5 H Nucleated Red Blood Cells # 0.0 Nucleated Red Blood Cells % 0.0 Phosphorus Level 1.6 L Platelet Count 153 Potassium Level 3.9 Red Blood Count 2.51 L Red Cell Distribution Width 18.5 H Sodium Level 132 L White Blood Count 7.8 Test 09/04/16 17:43 Bedside Glucose 151 Medications Medications Current Medications Fluticasone Propionate (Flonase 0.05% Nasal) 1 spray BID NASAL Last administered on 09/04/16 08:47; Admin Dose 1 SPRAY; Start 07/26/16 at 10:00 Epoetin [place] (Epogen (Esrd)) 10,000 units MoWeFr@17 SC Last administered on 10:56; Admin Dose 10,000 UNITS; Start 07/27/16 at 17:00; Status Future hold Hydralazine HCl (Apresoline) 10 mg Q6H PRN IV ELEVATED BLOOD PRESSURE Last administered on 08/29/16 17:39; Admin Dose 10 MG; Start 07/29/16 at 13:00 Acetaminophen (Tylenol Tab) 650 mg Q6H PRN GTB PAIN1-3/FEVER ABOVE 100 Last administered on 08/12/16at 06:07; Admin Dose 650 MG; Start 08/02/16 at 15:00 Atorvastatin Calcium (Lipitor) 40 mg HS GTB Last administered on 09/03/16 22: 00; Admin Dose 40 MG; Start 08/02/16 at 21:00 Carvedilol (Coreg) 6.25 mg BID GTB Last administered on 09/03/16 22:01; Admin Dose 6.25 MG; Start 08/02/16 at 09:00; Status Future hold Duloxetine HCl (Cymbalta) 90 mg DAILY GTB Last administered on 09/04/16 08:46 ; Admin Dose 90 MG; Start 08/02/16 at 09:00 Guaifenesin (Robitussin Liquid Cup) 100 mg Q4 PRN GTB COUGH; Start 08/02/16 at 09:00 Acetaminophen/ Hydrocodone Bitart ([place] (5/325)) 1 tab Q4 PRN GTB WSOB Last administered on 09/02/16 13:08; Admin Dose 1 TAB; Start 08/02/16 at 09:00 Lactobacillus Acidoph/Bulgaricus (Floranex) 1 tab DAILY GTB Last administered on 09/04/16 08:46; Admin Dose 1 TAB; Start 08/02/16 at 09:00 Lorazepam (Ativan) 1 mg Q6H PRN GTB ANXIETY Last administered on 08/18/16at 10: 45; Admin Dose 1 MG; Start 08/02/16 at 09:00 Multivit/Ca Carb/ B Cmplx/FA/Prenat (Cheryl-Darcie) 1 tab DAILY GTB Last administered on 09/04/16 08:46; Admin Dose 1 TAB; Start 08/02/16 at 09:00 Aspirin (Aspirin) 81 mg DAILY GTB Last administered on 09/04/16 08:46; Admin Dose 81 MG; Start 08/02/16 at 09:00 Lansoprazole (Prevacid) 30 mg DAILY@06 GTB Last administered on 09/04/16 05:01 ; Admin Dose 30 MG; Start 08/02/16 at 10:00 Lorazepam (Ativan) 0.5 mg Q4 PRN IV ANXIETY Last administered on 09/03/16 22: 45; Admin Dose 0.5 MG; Start 08/09/16 at 00:00 Methylprednisolone Sodium Succinate (Solu-Medrol) 20 mg DAILY IV Last administered on 09/04/16 08:47; Admin Dose 20 MG; Start 08/10/16 at 09:00 Miscellaneous Information 1 ea NOTE XX ; Start 08/11/16 at 12:00 Glucose (Glutose) 15 gm Q15M PRN PO DECREASED GLUCOSE; Start 08/11/16 at 12:00 Glucose (Glutose) 22.5 gm Q15M PRN PO DECREASED GLUCOSE; Start 08/11/16 at 12: 00 Dextrose (D50w Syringe) 25 ml Q15M PRN IV DECREASED GLUCOSE Last administered on 08/24/16 12:54; Admin Dose 25 ML; Start 08/11/16 at 12:00 Dextrose (D50w Syringe) 50 ml Q15M PRN IV DECREASED GLUCOSE; Start 08/11/16 at 12:00 Glucagon (Glucagen) 1 mg Q15M PRN IM DECREASED GLUCOSE; Start 08/11/16 at 12: 00 Glucose (Glutose) 15 gm Q15M PRN BUCCAL DECREASED GLUCOSE; Start 08/11/16 at 12:00 IV Flush (NS 10 ml) 10 ml PRN PRN IV IV PROTOCOL Last administered on 05:59; Admin Dose 10 ML; Start 08/13/16 at 18:00 Collagenase (Santyl) 1 applic DAILY@22 TOP Last administered on 09/03/16 22:02 ; Admin Dose 1 APPLIC; Start 08/15/16 at 22:00 Insulin Glargine (Lantus) 25 unit QAM SC Last administered on 09/04/16 08:51; Admin Dose 25 UNIT; Start 08/18/16 at 09:00 Insulin Aspart (Novolog Insulin Pen) NOVOLOG *MODERATE* ALGORI... Q6 SC Last administered on 09/04/16 17:48; Admin Dose 2 UNIT; Start 08/30/16 at 18:00 Sildenafil Citrate (Revatio) 20 mg BID GTB Last administered on 09/03/16 22:01 ; Admin Dose 20 MG; Start 09/01/16 at 21:00 JERICHO CRABTREE NP Sep 04, 2016 18:09
[2016-09-04] MEDS: ATORVASTATIN 40 MG TAB GTB SCH (23:27)
[2016-09-04] MEDS: COLLAGENASE 30 GM TUBE TOP SCH (23:28)
[2016-09-05] VITALS (18 sets, daily range): BP systolic 79–142; BP diastolic 36–61; PULSE 71–104; RESP 20–32
[2016-09-05] MEDS: ALBUTEROL HFA 8 GM INHALER INH SCH ×3 (01:32→13:30)
[2016-09-05] MEDS: IPRATROPIUM (HFA) 12.9 GM INHALER INH SCH ×3 (01:33→13:30)
[2016-09-05] MEDS: LANSOPRAZOLE 30 MG CAP GTB SCH (05:22)
[2016-09-05] MEDS: INSULIN ASPART [NOVOLOG] 3 ML PEN SC SCH ×2 (05:23→11:39)
--- NOTE | 2016-09-05 07:18 | CONS ---
Date/Time of Note Date/Time of Note DATE: 09/05/16 TIME: 07:14 Assessment/Plan Assessment/Plan Chief Complaint/Hosp Course for planned HD in AM Problems: (1) ESRD (end stage renal disease) on dialysis Comment: HD in AM (2) Respiratory failure, acute and chronic Comment: stable on the vent (3) CHF (congestive heart failure) Comment: resolved w HD (4) Diabetes mellitus Comment: good control Consultation Date/Type/Reason Admit Date/Time Jul 26, 2016 at 01:55 Initial Consult Date 07/29/16 Type of Consultation: nephrology Referring Provider: GRACIE KATHLEEN 24 HR Interval Summary Free Text/Dictation remains clinincally stable on the vent. tolerated HD yesterday... chhaya PEG TF as well Exam/Review of Systems Vital Signs Vitals Vital Signs Date Time Temp Pulse Resp B/P Pulse Ox O2 Delivery O2 Flow Rate FiO2 09/05/16 05:18 78 24 99 30 09/05/16 04:00 98.4 119/54 Intake and Output 09/04/16 09/04/16 09/05/16 15:00 23:00 07:00 Intake Total 1215 ml 530 ml Output Total 2400 ml 1250 ml Balance -1185 ml -720 ml Exam Constitutional: alert Respiratory: clear to auscultation Cardiovascular: regular rate and rhythm Extremities: normal pulses (intact fxn LUE AVF) Results Result Diagram: 09/04/16 0628 09/04/16 0628 Results 24 hrs Laboratory Tests Test 09/04/16 11:56 09/04/16 17:43 09/04/16 23:24 09/05/16 05:20 Bedside Glucose 191 151 157 116 Medications Medications Current Medications Fluticasone Propionate (Flonase 0.05% Nasal) 1 spray BID NASAL Last administered on 09/04/16 23:28; Admin Dose 1 SPRAY; Start 07/26/16 at 10:00 Epoetin [place] (Epogen (Esrd)) 10,000 units MoWeFr@17 SC Last administered on 10:56; Admin Dose 10,000 UNITS; Start 07/27/16 at 17:00; Status Future hold Hydralazine HCl (Apresoline) 10 mg Q6H PRN IV ELEVATED BLOOD PRESSURE Last administered on 08/29/16 17:39; Admin Dose 10 MG; Start 07/29/16 at 13:00 Acetaminophen (Tylenol Tab) 650 mg Q6H PRN GTB PAIN1-3/FEVER ABOVE 100 Last administered on 08/12/16at 06:07; Admin Dose 650 MG; Start 08/02/16 at 15:00 Atorvastatin Calcium (Lipitor) 40 mg HS GTB Last administered on 09/04/16 23: 27; Admin Dose 40 MG; Start 08/02/16 at 21:00 Carvedilol (Coreg) 6.25 mg BID GTB Last administered on 09/04/16 23:27; Admin Dose 6.25 MG; Start 08/02/16 at 09:00; Status Future hold Duloxetine HCl (Cymbalta) 90 mg DAILY GTB Last administered on 09/04/16 08:46 ; Admin Dose 90 MG; Start 08/02/16 at 09:00 Guaifenesin (Robitussin Liquid Cup) 100 mg Q4 PRN GTB COUGH; Start 08/02/16 at 09:00 Acetaminophen/ Hydrocodone Bitart ([place] (5/325)) 1 tab Q4 PRN GTB WSOB Last administered on 09/02/16 13:08; Admin Dose 1 TAB; Start 08/02/16 at 09:00 Lactobacillus Acidoph/Bulgaricus (Floranex) 1 tab DAILY GTB Last administered on 09/04/16 08:46; Admin Dose 1 TAB; Start 08/02/16 at 09:00 Lorazepam (Ativan) 1 mg Q6H PRN GTB ANXIETY Last administered on 08/18/16at 10: 45; Admin Dose 1 MG; Start 08/02/16 at 09:00 Multivit/Ca Carb/ B Cmplx/FA/Prenat (Cheryl-Darcie) 1 tab DAILY GTB Last administered on 09/04/16 08:46; Admin Dose 1 TAB; Start 08/02/16 at 09:00 Aspirin (Aspirin) 81 mg DAILY GTB Last administered on 09/04/16 08:46; Admin Dose 81 MG; Start 08/02/16 at 09:00 Lansoprazole (Prevacid) 30 mg DAILY@06 GTB Last administered on 09/05/16 05:22 ; Admin Dose 30 MG; Start 08/02/16 at 10:00 Lorazepam (Ativan) 0.5 mg Q4 PRN IV ANXIETY Last administered on 09/03/16 22: 45; Admin Dose 0.5 MG; Start 08/09/16 at 00:00 Methylprednisolone Sodium Succinate (Solu-Medrol) 20 mg DAILY IV Last administered on 09/04/16 08:47; Admin Dose 20 MG; Start 08/10/16 at 09:00 Miscellaneous Information 1 ea NOTE XX ; Start 08/11/16 at 12:00 Glucose (Glutose) 15 gm Q15M PRN PO DECREASED GLUCOSE; Start 08/11/16 at 12:00 Glucose (Glutose) 22.5 gm Q15M PRN PO DECREASED GLUCOSE; Start 08/11/16 at 12: 00 Dextrose (D50w Syringe) 25 ml Q15M PRN IV DECREASED GLUCOSE Last administered on 08/24/16 12:54; Admin Dose 25 ML; Start 08/11/16 at 12:00 Dextrose (D50w Syringe) 50 ml Q15M PRN IV DECREASED GLUCOSE; Start 08/11/16 at 12:00 Glucagon (Glucagen) 1 mg Q15M PRN IM DECREASED GLUCOSE; Start 08/11/16 at 12: 00 Glucose (Glutose) 15 gm Q15M PRN BUCCAL DECREASED GLUCOSE; Start 08/11/16 at 12:00 IV Flush (NS 10 ml) 10 ml PRN PRN IV IV PROTOCOL Last administered on 05:59; Admin Dose 10 ML; Start 08/13/16 at 18:00 Collagenase (Santyl) 1 applic DAILY@22 TOP Last administered on 09/04/16 23:28 ; Admin Dose 1 APPLIC; Start 08/15/16 at 22:00 Insulin Glargine (Lantus) 25 unit QAM SC Last administered on 09/04/16 08:51; Admin Dose 25 UNIT; Start 08/18/16 at 09:00 Insulin Aspart (Novolog Insulin Pen) NOVOLOG *MODERATE* ALGORI... Q6 SC Last administered on 09/04/16 23:31; Admin Dose 2 UNIT; Start 08/30/16 at 18:00 Sildenafil Citrate (Revatio) 20 mg BID GTB Last administered on 09/04/16 23:27 ; Admin Dose 20 MG; Start 09/01/16 at 21:00 MOSES GUAJARDO MD Sep 05, 2016 07:18
[2016-09-05] MEDS: SILDENAFIL 20 MG TAB GTB SCH (09:00)
--- NOTE | 2016-09-05 09:34 | CONS ---
Date/Time of Note Date/Time of Note DATE: 09/05/16 TIME: 09:34 Assessment/Plan Assessment/Plan Chief Complaint/Hosp Course - VDRF s/p trach - S/p aspiration PNA: respiratory Cx on 08/10 grew MSSA and C. Albicans - S/p septic shock - S/p C diff colitis, last C diff test on 08/24/2016 negative - Persistent diarrhea - S/p intermittent fever - h/o RUE cellulitis complicated by axillary/cephalic venous thrombosis - toxic metabolic encephalopathy - ESRD on HD - hypokalemia - hypomagnesium - NSVT - diastolic CHF - CAD with Hx PCI - paroxysmal atrial tachycardia - old partial DVT of the right internal jugular vein. - PAD Hx Left BKA - underlying Parkinson's disease - stage 2 coccyx decub - PCN allergic - dysphagia d/p G tube - thrombocytopenia - borderline positive [id number] level. 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 (2016-08/30/2016) - s/p imipenem (08/05- 08/14), IV vanco (07/29-08/13), aztreonam (07/29-08/05), cefazolin (08/14-08/23), caspo (08/11-08/23), pGT vanco (08/06-08/25) - DNR Recommendations: - Monitor closely off abx - DC planning in progress (possible DC tomorrow); awaiting subacute placement that will accommodate HD Problems: Consultation Date/Type/Reason Admit Date/Time Jul 26, 2016 at 01:55 Initial Consult Date 07/29/16 Type of Consultation: id Referring Provider: GRACIE KATHLEEN Exam/Review of Systems Vital Signs Vitals Vital Signs Date Time Temp Pulse Resp B/P Pulse Ox O2 Delivery O2 Flow Rate FiO2 09/05/16 09:20 75 29 100 30 09/05/16 07:00 97.7 79/45 Intake and Output 09/04/16 09/04/16 09/05/16 14:59 22:59 06:59 Intake Total 715 ml 1030 ml Output Total 700 ml 2950 ml Balance 15 ml -1920 ml Exam Constitutional: alert, oriented, well developed Psych: nl mood/affect, no complaints ENMT: nl external ears & nose, nl lips & teeth, nl nasal mucosa & septum Respiratory: clear to auscultation, normal air movement Cardiovascular: nl pulses, regular rate and rhythm Results Result Diagram: 09/04/1662709/04/16627 Results 24 hrs Laboratory Tests Test 09/04/16 11:56 09/04/16 17:43 09/04/16 23:24 09/05/16 05:20 Bedside Glucose 191 151 157 116 Medications Medications Current Medications Fluticasone Propionate (Flonase 0.05% Nasal) 1 spray BID NASAL Last administered on 09/04/16 23:28; Admin Dose 1 SPRAY; Start 07/26/16 at 10:00 Epoetin [place] (Epogen (Esrd)) 10,000 units MoWeFr@17 SC Last administered on 10:56; Admin Dose 10,000 UNITS; Start 07/27/16 at 17:00; Status Future hold Hydralazine HCl (Apresoline) 10 mg Q6H PRN IV ELEVATED BLOOD PRESSURE Last administered on 08/29/16 17:39; Admin Dose 10 MG; Start 07/29/16 at 13:00 Acetaminophen (Tylenol Tab) 650 mg Q6H PRN GTB PAIN1-3/FEVER ABOVE 100 Last administered on 08/12/16at 06:07; Admin Dose 650 MG; Start 08/02/16 at 15:00 Atorvastatin Calcium (Lipitor) 40 mg HS GTB Last administered on 09/04/16 23: 27; Admin Dose 40 MG; Start 08/02/16 at 21:00 Carvedilol (Coreg) 6.25 mg BID GTB Last administered on 09/04/16 23:27; Admin Dose 6.25 MG; Start 08/02/16 at 09:00; Status Future hold Duloxetine HCl (Cymbalta) 90 mg DAILY GTB Last administered on 09/04/16 08:46 ; Admin Dose 90 MG; Start 08/02/16 at 09:00 Guaifenesin (Robitussin Liquid Cup) 100 mg Q4 PRN GTB COUGH; Start 08/02/16 at 09:00 Acetaminophen/ Hydrocodone Bitart ([place] (5/325)) 1 tab Q4 PRN GTB [facility]SO[facility] Last administered on 09/02/16 13:08; Admin Dose 1 TAB; Start 08/02/16 at 09:00 Lactobacillus Acidoph/Bulgaricus (Floranex) 1 tab DAILY GTB Last administered on 09/04/16 08:46; Admin Dose 1 TAB; Start 08/02/16 at 09:00 Lorazepam (Ativan) 1 mg Q6H PRN GTB ANXIETY Last administered on 08/18/16at 10: 45; Admin Dose 1 MG; Start 08/02/16 at 09:00 Multivit/Ca Carb/ B Cmplx/FA/Prenat (Cheryl-Darcie) 1 tab DAILY GTB Last administered on 09/04/16 08:46; Admin Dose 1 TAB; Start 08/02/16 at 09:00 Aspirin (Aspirin) 81 mg DAILY GTB Last administered on 09/04/16 08:46; Admin Dose 81 MG; Start 08/02/16 at 09:00 Lansoprazole (Prevacid) 30 mg DAILY@06 GTB Last administered on 09/05/16 05:22 ; Admin Dose 30 MG; Start 08/02/16 at 10:00 Lorazepam (Ativan) 0.5 mg Q4 PRN IV ANXIETY Last administered on 09/03/16 22: 45; Admin Dose 0.5 MG; Start 08/09/16 at 00:00 Methylprednisolone Sodium Succinate (Solu-Medrol) 20 mg DAILY IV Last administered on 09/04/16 08:47; Admin Dose 20 MG; Start 08/10/16 at 09:00 Miscellaneous Information 1 ea NOTE XX ; Start 08/11/16 at 12:00 Glucose (Glutose) 15 gm Q15M PRN PO DECREASED GLUCOSE; Start 08/11/16 at 12:00 Glucose (Glutose) 22.5 gm Q15M PRN PO DECREASED GLUCOSE; Start 08/11/16 at 12: 00 Dextrose (D50w Syringe) 25 ml Q15M PRN IV DECREASED GLUCOSE Last administered on 08/24/16 12:54; Admin Dose 25 ML; Start 08/11/16 at 12:00 Dextrose (D50w Syringe) 50 ml Q15M PRN IV DECREASED GLUCOSE; Start 08/11/16 at 12:00 Glucagon (Glucagen) 1 mg Q15M PRN IM DECREASED GLUCOSE; Start 08/11/16 at 12: 00 Glucose (Glutose) 15 gm Q15M PRN BUCCAL DECREASED GLUCOSE; Start 08/11/16 at 12:00 IV Flush (NS 10 ml) 10 ml PRN PRN IV IV PROTOCOL Last administered on 05:59; Admin Dose 10 ML; Start 08/13/16 at 18:00 Collagenase (Santyl) 1 applic DAILY@22 TOP Last administered on 09/04/16 23:28 ; Admin Dose 1 APPLIC; Start 08/15/16 at 22:00 Insulin Glargine (Lantus) 25 unit QAM SC Last administered on 09/04/16 08:51; Admin Dose 25 UNIT; Start 08/18/16 at 09:00 Insulin Aspart (Novolog Insulin Pen) NOVOLOG *MODERATE* ALGORI... Q6 SC Last administered on 09/04/16 23:31; Admin Dose 2 UNIT; Start 08/30/16 at 18:00 Sildenafil Citrate (Revatio) 20 mg BID GTB Last administered on 09/04/16 23:27 ; Admin Dose 20 MG; Start 09/01/16 at 21:00 Epoetin [place] (Epogen (Esrd)) 10,000 units MoWeFr@17 SC ; Start 09/05/16 at 17:00 JOYCE SOARES MD Sep 05, 2016 09:34
[2016-09-05] MEDS: DULOXETINE 30 MG CAP DR GTB SCH (10:57)
[2016-09-05] MEDS: LACTOBACILLUS CHEW TAB GTB SCH (10:58)
[2016-09-05] MEDS: ASPIRIN 81 MG TAB GTB SCH (10:58)
[2016-09-05] MEDS: MULTIVIT/CA CARB/B CMPLX/FA TAB GTB SCH (10:58)
[2016-09-05] MEDS: METHYLPREDNISOLONE 40 MG INJ IV SCH (10:59)
[2016-09-05] MEDS: FLUTICASONE 0.05% 16 GM NAS SPRAY NASAL SCH (11:00)
[2016-09-05] MEDS: INSULIN GLARGINE [LANtus] 3 ML PEN SC SCH (11:28)
[2016-09-05] MEDS: HYDROCODONE/APAP (5/325) TAB GTB PRN (11:41)
--- NOTE | 2016-09-05 14:42 | CONS ---
Date/Time of Note Date/Time of Note DATE: 09/05/16 TIME: 14:39 Assessment/Plan Assessment/Plan Additional Assessment/Plan Respiratory failure status post tracheostomy Sepsis Minimally elevated troponin DVT Diastolic congestive heart failure End-stage renal disease on hemodialysis CAD with history of PCI Diabetes Peripheral arterial disease with history of amputation Pulmonary hypertension NSVT -Patient with brief episodes of atrial tachycardia but no episodes of ventricular tachycardia seen on telemetry past 24 hours. Potassium has improved. Blood pressure trend overall remains stable. Consultation Date/Type/Reason Admit Date/Time Jul 26, 2016 at 01:55 Type of Consultation: cv Referring Provider: GRACIE KATHLEEN 24 HR Interval Summary Free Text/Dictation pt seen, no cp, sob Exam/Review of Systems Vital Signs Vitals Vital Signs Date Time Temp Pulse Resp B/P Pulse Ox O2 Delivery O2 Flow Rate FiO2 09/05/16 13:49 80 26 95 09/05/16 11:00 99.0 140/36 09/05/16 09:20 30 Intake and Output 09/04/16 09/04/16 09/05/16 15:00 23:00 07:00 Intake Total 1215 ml 530 ml Output Total 2400 ml 1250 ml Balance -1185 ml -720 ml Exam nad Constitutional: alert, oriented Head: normocephalic Neck: other (trach) Respiratory: other (course bs, no wheeze) Cardiovascular: other (s1s2), regular rate and rhythm Gastrointestinal: bowel sounds, non-tender, soft Extremities: edema Results Result Diagram: 09/04/16 0628 09/04/16 0628 Results 24 hrs Laboratory Tests Test 09/04/16 17:43 09/04/16 23:24 09/05/16 05:20 09/05/16 11:39 Bedside Glucose 151 157 116 130 Medications Medications Current Medications Fluticasone Propionate (Flonase 0.05% Nasal) 1 spray BID NASAL Last administered on 09/05/16 11:00; Admin Dose 1 SPRAY; Start 07/26/16 at 10:00 Epoetin [place] (Epogen (Esrd)) 10,000 units MoWeFr@17 SC Last administered on 10:56; Admin Dose 10,000 UNITS; Start 07/27/16 at 17:00; Status Future hold Hydralazine HCl (Apresoline) 10 mg Q6H PRN IV ELEVATED BLOOD PRESSURE Last administered on 08/29/16 17:39; Admin Dose 10 MG; Start 07/29/16 at 13:00 Acetaminophen (Tylenol Tab) 650 mg Q6H PRN GTB PAIN1-3/FEVER ABOVE 100 Last administered on 08/12/16at 06:07; Admin Dose 650 MG; Start 08/02/16 at 15:00 Atorvastatin Calcium (Lipitor) 40 mg HS GTB Last administered on 09/04/16 23: 27; Admin Dose 40 MG; Start 08/02/16 at 21:00 Carvedilol (Coreg) 6.25 mg BID GTB Last administered on 09/04/16 23:27; Admin Dose 6.25 MG; Start 08/02/16 at 09:00; Status Future hold Duloxetine HCl (Cymbalta) 90 mg DAILY GTB Last administered on 09/05/16 10:57 ; Admin Dose 90 MG; Start 08/02/16 at 09:00 Guaifenesin (Robitussin Liquid Cup) 100 mg Q4 PRN GTB COUGH; Start 08/02/16 at 09:00 Acetaminophen/ Hydrocodone Bitart ([place] (5/325)) 1 tab Q4 PRN GTB [facility]SO[facility] Last administered on 09/05/16 11:41; Admin Dose 1 TAB; Start 08/02/16 at 09:00 Lactobacillus Acidoph/Bulgaricus (Floranex) 1 tab DAILY GTB Last administered on 09/05/16 10:58; Admin Dose 1 TAB; Start 08/02/16 at 09:00 Lorazepam (Ativan) 1 mg Q6H PRN GTB ANXIETY Last administered on 08/18/16at 10: 45; Admin Dose 1 MG; Start 08/02/16 at 09:00 Multivit/Ca Carb/ B Cmplx/FA/Prenat (Cheryl-Darcie) 1 tab DAILY GTB Last administered on 09/05/16 10:58; Admin Dose 1 TAB; Start 08/02/16 at 09:00 Aspirin (Aspirin) 81 mg DAILY GTB Last administered on 09/05/16 10:58; Admin Dose 81 MG; Start 08/02/16 at 09:00 Lansoprazole (Prevacid) 30 mg DAILY@06 GTB Last administered on 09/05/16 05:22 ; Admin Dose 30 MG; Start 08/02/16 at 10:00 Lorazepam (Ativan) 0.5 mg Q4 PRN IV ANXIETY Last administered on 09/03/16 22: 45; Admin Dose 0.5 MG; Start 08/09/16 at 00:00 Methylprednisolone Sodium Succinate (Solu-Medrol) 20 mg DAILY IV Last administered on 09/05/16 10:59; Admin Dose 20 MG; Start 08/10/16 at 09:00 Miscellaneous Information 1 ea NOTE XX ; Start 08/11/16 at 12:00 Glucose (Glutose) 15 gm Q15M PRN PO DECREASED GLUCOSE; Start 08/11/16 at 12:00 Glucose (Glutose) 22.5 gm Q15M PRN PO DECREASED GLUCOSE; Start 08/11/16 at 12: 00 Dextrose (D50w Syringe) 25 ml Q15M PRN IV DECREASED GLUCOSE Last administered on 08/24/16 12:54; Admin Dose 25 ML; Start 08/11/16 at 12:00 Dextrose (D50w Syringe) 50 ml Q15M PRN IV DECREASED GLUCOSE; Start 08/11/16 at 12:00 Glucagon (Glucagen) 1 mg Q15M PRN IM DECREASED GLUCOSE; Start 08/11/16 at 12: 00 Glucose (Glutose) 15 gm Q15M PRN BUCCAL DECREASED GLUCOSE; Start 08/11/16 at 12:00 IV Flush (NS 10 ml) 10 ml PRN PRN IV IV PROTOCOL Last administered on 05:59; Admin Dose 10 ML; Start 08/13/16 at 18:00 Collagenase (Santyl) 1 applic DAILY@22 TOP Last administered on 09/04/16 23:28 ; Admin Dose 1 APPLIC; Start 08/15/16 at 22:00 Insulin Glargine (Lantus) 25 unit QAM SC Last administered on 09/05/16 11:28; Admin Dose 25 UNIT; Start 08/18/16 at 09:00 Insulin Aspart (Novolog Insulin Pen) NOVOLOG *MODERATE* ALGORI... Q6 SC Last administered on 09/04/16 23:31; Admin Dose 2 UNIT; Start 08/30/16 at 18:00 Sildenafil Citrate (Revatio) 20 mg BID GTB Last administered on 1/17/17at 23:27 ; Admin Dose 20 MG; Start 09/01/16 at 21:00 Epoetin [place] (Epogen (Esrd)) 10,000 units MoWeFr@17 SC ; Start 09/05/16 at 17:00 Solo Leon DO Sep 05, 2016 14:42
--- NOTE | 2016-09-05 14:46 | CONS ---
Date/Time of Note Date/Time of Note DATE: 09/05/16 TIME: 14:45 Consult Date/Type/Reason Admit Date/Time Jul 26, 2016 at 01:55 Initial Consult Date 07/29/16 Type of Consultation: Pulm Ordering Provider: GRACIE KATHLEEN Subjective Comfortable. Objective Vital Signs Date Time Temp Pulse Resp B/P Pulse Ox O2 Delivery O2 Flow Rate FiO2 09/05/16 13:49 80 26 95 09/05/16 11:00 99.0 140/36 09/05/16 09:20 30 Intake and Output 09/04/16 09/04/16 09/05/16 14:59 22:59 06:59 Intake Total 715 ml 1030 ml Output Total 700 ml 2950 ml Balance 15 ml -1920 ml PHYSICAL EXAMINATION: VITAL SIGNS: as above. NECK: Trach site clean and intact. CARDIAC: S1, S2, no added sounds or murmurs. CHEST: Diminished air entry bilaterally. No rales or wheezes. ABDOMEN: Soft, nontender. No guarding or rebound. EXTREMITIES: No cyanosis, clubbing, edema. NEUROLOGIC: Grossly intact. No focal deficits. Results/Medications Result Diagram: 09/04/1662709/04/16627 Results 24 hrs Laboratory Tests Test 09/04/16 17:43 09/04/16 23:24 09/05/16 05:20 09/05/16 11:39 Bedside Glucose 151 157 116 130 Medications Current Medications Fluticasone Propionate (Flonase 0.05% Nasal) 1 spray BID NASAL Last administered on 09/05/16 11:00; Admin Dose 1 SPRAY; Start 07/26/16 at 10:00 Epoetin [place] (Epogen (Esrd)) 10,000 units MoWeFr@17 SC Last administered on 10:56; Admin Dose 10,000 UNITS; Start 07/27/16 at 17:00; Status Future hold Hydralazine HCl (Apresoline) 10 mg Q6H PRN IV ELEVATED BLOOD PRESSURE Last administered on 08/29/16 17:39; Admin Dose 10 MG; Start 07/29/16 at 13:00 Acetaminophen (Tylenol Tab) 650 mg Q6H PRN GTB PAIN1-3/FEVER ABOVE 100 Last administered on 08/12/16at 06:07; Admin Dose 650 MG; Start 08/02/16 at 15:00 Atorvastatin Calcium (Lipitor) 40 mg HS GTB Last administered on 09/04/16 23: 27; Admin Dose 40 MG; Start 08/02/16 at 21:00 Carvedilol (Coreg) 6.25 mg BID GTB Last administered on 09/04/16 23:27; Admin Dose 6.25 MG; Start 08/02/16 at 09:00; Status Future hold Duloxetine HCl (Cymbalta) 90 mg DAILY GTB Last administered on 09/05/16 10:57 ; Admin Dose 90 MG; Start 08/02/16 at 09:00 Guaifenesin (Robitussin Liquid Cup) 100 mg Q4 PRN GTB COUGH; Start 08/02/16 at 09:00 Acetaminophen/ Hydrocodone Bitart ([place] (5/325)) 1 tab Q4 PRN GTB WSOB Last administered on 09/05/16 11:41; Admin Dose 1 TAB; Start 08/02/16 at 09:00 Lactobacillus Acidoph/Bulgaricus (Floranex) 1 tab DAILY GTB Last administered on 09/05/16 10:58; Admin Dose 1 TAB; Start 08/02/16 at 09:00 Lorazepam (Ativan) 1 mg Q6H PRN GTB ANXIETY Last administered on 08/18/16at 10: 45; Admin Dose 1 MG; Start 08/02/16 at 09:00 Multivit/Ca Carb/ B Cmplx/FA/Prenat (Cheryl-Darcie) 1 tab DAILY GTB Last administered on 09/05/16 10:58; Admin Dose 1 TAB; Start 08/02/16 at 09:00 Aspirin (Aspirin) 81 mg DAILY GTB Last administered on 09/05/16 10:58; Admin Dose 81 MG; Start 08/02/16 at 09:00 Lansoprazole (Prevacid) 30 mg DAILY@06 GTB Last administered on 09/05/16 05:22 ; Admin Dose 30 MG; Start 08/02/16 at 10:00 Lorazepam (Ativan) 0.5 mg Q4 PRN IV ANXIETY Last administered on 09/03/16 22: 45; Admin Dose 0.5 MG; Start 08/09/16 at 00:00 Methylprednisolone Sodium Succinate (Solu-Medrol) 20 mg DAILY IV Last administered on 09/05/16 10:59; Admin Dose 20 MG; Start 08/10/16 at 09:00 Miscellaneous Information 1 ea NOTE XX ; Start 08/11/16 at 12:00 Glucose (Glutose) 15 gm Q15M PRN PO DECREASED GLUCOSE; Start 08/11/16 at 12:00 Glucose (Glutose) 22.5 gm Q15M PRN PO DECREASED GLUCOSE; Start 08/11/16 at 12: 00 Dextrose (D50w Syringe) 25 ml Q15M PRN IV DECREASED GLUCOSE Last administered on 08/24/16 12:54; Admin Dose 25 ML; Start 08/11/16 at 12:00 Dextrose (D50w Syringe) 50 ml Q15M PRN IV DECREASED GLUCOSE; Start 08/11/16 at 12:00 Glucagon (Glucagen) 1 mg Q15M PRN IM DECREASED GLUCOSE; Start 08/11/16 at 12: 00 Glucose (Glutose) 15 gm Q15M PRN BUCCAL DECREASED GLUCOSE; Start 08/11/16 at 12:00 IV Flush (NS 10 ml) 10 ml PRN PRN IV IV PROTOCOL Last administered on 05:59; Admin Dose 10 ML; Start 08/13/16 at 18:00 Collagenase (Santyl) 1 applic DAILY@22 TOP Last administered on 09/04/16 23:28 ; Admin Dose 1 APPLIC; Start 08/15/16 at 22:00 Insulin Glargine (Lantus) 25 unit QAM SC Last administered on 09/05/16 11:28; Admin Dose 25 UNIT; Start 08/18/16 at 09:00 Insulin Aspart (Novolog Insulin Pen) NOVOLOG *MODERATE* ALGORI... Q6 SC Last administered on 09/04/16 23:31; Admin Dose 2 UNIT; Start 08/30/16 at 18:00 Sildenafil Citrate (Revatio) 20 mg BID GTB Last administered on 09/04/16 23:27 ; Admin Dose 20 MG; Start 09/01/16 at 21:00 Epoetin [place] (Epogen (Esrd)) 10,000 units MoWeFr@17 SC ; Start 09/05/16 at 17:00 Assessment/Plan Chief Complaint/Hosp Course IMPRESSION: 1. Ventilator-dependent respiratory failure, hypoxemic. 2. End-stage renal disease on hemodialysis. 3. Pulmonary edema. 4. Possible aspiration pneumonia. RECOMMENDATIONS 1. Continue ventilator support. 2. Hemodialysis per nephrology. 3. Antibiotics per ID. 4. Followup labs pending transfer to [place] or [facility] Problems: VALERIE CAMARENA [facility], [facility] Sep 05, 2016 14:46
[2016-09-05] MEDS ORDERED: EPOETIN 10000 UNITS/1 ML INJ (ESRD) SC SCH (17:00)
== END 2016-09-05 16:45 | DRG 4 ==
LOC: E/R 22:56 → MS4 07-26 01:55 → MS1 07-29 12:45 → TEL 07-31 10:10 → ICU 07-31 20:38 → TEL 08-24 22:26
PROVIDERS: ADMIT Internal Medicine; ATTEND Internal Medicine
PROC: 5A1D60Z (ICD-10-PCS; 2016-07-27)
PROC: 5A1955Z Respiratory Ventilation, Greater than 96 Consecutive Hours (ICD-10-PCS; 2016-07-31)
PROC: 0BH17EZ Insertion of Endotracheal Airway into Trachea, Via Natural or Artificial Opening (ICD-10-PCS; 2016-07-31)
PROC: 02HV33Z Insertion of Infusion Device into Superior Vena Cava, Percutaneous Approach (ICD-10-PCS; 2016-08-13)
PROC: 0BH17EZ Insertion of Endotracheal Airway into Trachea, Via Natural or Artificial Opening (ICD-10-PCS; 2016-08-15)
PROC: 5A1955Z Respiratory Ventilation, Greater than 96 Consecutive Hours (ICD-10-PCS; 2016-08-15)
PROC: 0DH63UZ Insertion of Feeding Device into Stomach, Percutaneous Approach (ICD-10-PCS; 2016-08-23)
PROC: 0B110F4 Bypass Trachea to Cutaneous with Tracheostomy Device, Open Approach (ICD-10-PCS; principal; 2016-08-23 12:00)
DX: J96.21 Acute and chronic respiratory failure with hypoxia (principal); R65.21 Severe sepsis with septic shock; J69.0 Pneumonitis due to inhalation of food and vomit; A41.9 Sepsis, unspecified organism; G92 Toxic encephalopathy; I50.33 Acute on chronic diastolic (congestive) heart failure; A04.7 Enterocolitis due to Clostridium difficile; N18.6 End stage renal disease; I82.A11 Acute embolism and thrombosis of right axillary vein; I13.2 Hypertensive heart and chronic kidney disease with heart failure and with stage 5 chronic kidney disease, or end stage renal disease; I47.1 Supraventricular tachycardia; I48.92 Unspecified atrial flutter; L03.114 Cellulitis of left upper limb; I82.C11 Acute embolism and thrombosis of right internal jugular vein; J96.02 Acute respiratory failure with hypercapnia; I27.2 Other secondary pulmonary hypertension; E11.22 Type 2 diabetes mellitus with diabetic chronic kidney disease; E11.51 Type 2 diabetes mellitus with diabetic peripheral angiopathy without gangrene; J44.9 Chronic obstructive pulmonary disease, unspecified; G20 Parkinson's disease; D63.1 Anemia in chronic kidney disease; M81.0 Age-related osteoporosis without current pathological fracture; F32.9 Major depressive disorder, single episode, unspecified; E83.39 Other disorders of phosphorus metabolism; I48.91 Unspecified atrial fibrillation; L89.152 Pressure ulcer of sacral region, stage 2; E87.6 Hypokalemia; D69.6 Thrombocytopenia, unspecified; E11.65 Type 2 diabetes mellitus with hyperglycemia; Z89.512 Acquired absence of left leg below knee; Z95.5 Presence of coronary angioplasty implant and graft; Z66 Do not resuscitate; Z99.2 Dependence on renal dialysis; B00.1 Herpesviral vesicular dermatitis; E78.5 Hyperlipidemia, unspecified; E83.42 Hypomagnesemia
CPT/HCPCS: 31500; 36415; 36430; 36569; 36600; 70450; 71010; 71020; 76937; 78582; 80048; 80053; 80162; 80202; 82270; 82553; 82607; 82728; 82803; 82962; 83540; 83735; 83880; 84100; 84132; 84134; 84145; 84439; 84443; 84484; 85014; 85018; 85025; 85049; 85610; 85670; 85730; 86644; 86704; 86709; 86803; 86850; 86900; 86901; 86920; 87040; 87070; 87075; 87081; 87340; 89220; 90935; 93005; 93923; 93965; 94002; 94003; 94640; 94660; 94664; 94770; 96374; 96375; J1120; A9539; A9540; C1769; J0360; J0690; J0743; J0886; J1644; J1815; J2060; J2250; J2370; J2920; J2997; J3010; J3370; J3475; J3480; J7030; J7040; J7042; J7050; J7070; P9011; P9016; P9047

== ENCOUNTER 2016-11-08 08:55 | Inpatient (IN) | payer MEDICARE, OTHER ==
[2016-11-08] VITALS (14 sets, daily range): BP systolic 105–134; BP diastolic 51–78; PULSE 83–99; RESP 14–20; TEMP 98.9; Ht 177.8 cm; Wt 110.0 kg
[~2016-11-08] VITALS: Ht 177.8 cm; Wt 110.0 kg
[~2016-11-08 08:55] MED LIST changes: +CLIN-72 PO; -CORE10CR PO; +LORA1TAB GTB; -LORA1TAB PO
[2016-11-08] MEDS ORDERED: SOD CHLORIDE 0.9% 500 ML IV STA (08:57)
[2016-11-08] MEDS ORDERED: FAMOTIDINE 20 MG INJ IV STA (08:57)
[2016-11-08] MEDS ORDERED: ASPI-664 GTB (09:23)
[2016-11-08] MEDS ORDERED: DULO30CA45 GTB (09:24)
[2016-11-08] MEDS ORDERED: CATTTS1 TD (09:26)
[2016-11-08] MEDS ORDERED: LACTINEX GTB (09:28)
[2016-11-08 09:29] LABS: ADD SCAN DIFF NO
[2016-11-08] MEDS ORDERED: ACET325T45 GTB (09:29)
[2016-11-08] MEDS ORDERED: ACET-2047 GTB (09:30)
[2016-11-08] MEDS ORDERED: ALBU2.5V3 NEB (09:32)
[2016-11-08] MEDS ORDERED: ATOR40TA68 GTB (09:32)
[2016-11-08] MEDS ORDERED: CARV3.12 GTB (09:33)
[2016-11-08 09:40] LABS: ALBUMIN 2.5 g/dl (3.3-4.9); BASOPHIL # 0.1 10^3/ul (0.0-0.1); BASOPHILS % 0.3 % (0.0-2.0); EOSINOPHILS % 0.2 % (0.0-7.0); HEMATOCRIT 28.3 % (42.0-52.0); HEMOGLOBIN 8.8 g/dl (14.0-18.0); LYMPHOCYTES # 0.6 10^3/ul (0.8-2.9); MEAN CORPUSCULAR HEMOGLOBIN 33.1 pg (29.0-33.0); MEAN CORPUSCULAR HGB CONC 31.1 g/dl (32.0-37.0); MEAN CORPUSCULAR VOLUME 106.4 fl (82.0-101.0); MONOCYTE # 0.9 10^3/ul (0.3-0.9); NEUTROPHIL # 13.6 10^3/ul (1.6-7.5); NEUTROPHILS % 88.9 % (39.0-77.0); PLATELET COUNT 270 10^3/UL (140-415); RED BLOOD COUNT 2.66 10^6/ul (4.70-6.10); RED CELL DISTRIBUTION WIDTH 17.3 % (11.5-14.5); WHITE BLOOD COUNT 15.3 10^3/ul (4.8-10.8)
[2016-11-08] MEDS ORDERED: NOVO3I SC (09:40)
[2016-11-08 09:41] LABS: POTASSIUM 4.3 mmol/L (3.5-5.1)
[2016-11-08] MEDS ORDERED: LANT3I SC (09:41)
[2016-11-08 09:43] LABS: ALBUMIN/GLOBULIN RATIO 0.89; CREATININE 2.25 mg/dl (0.61-1.24); TOTAL PROTEIN 5.3 g/dl (6.1-8.1)
[2016-11-08] MEDS ORDERED: IPRA3AMP INHALATION (09:43)
[2016-11-08 09:44] LABS: CALCIUM 8.8 mg/dl (8.4-10.2)
[2016-11-08] MEDS ORDERED: LANS30CA GTB (09:44)
[2016-11-08] MEDS ORDERED: FOLI1CAP GTB (09:45)
[2016-11-08] MEDS ORDERED: NIFE10CA19 GTB (09:46)
[2016-11-08] MEDS ORDERED: HYDR-906 GTB (09:49)
[2016-11-08] MEDS ORDERED: CALC-277 GTB (09:50)
[2016-11-08] MEDS ORDERED: SILD20TA GTB (09:50)
[2016-11-08] MEDS ORDERED: ZINC220C5 GTB (09:52)
[2016-11-08] MEDS ORDERED: ASCO500S2 GTB (09:52)
[2016-11-08] MEDS ORDERED: CEFEPIME 2GM/50 ML (PMX) 50 ML IVPB STA (10:51)
[2016-11-08] MEDS ORDERED: SOD CHLORIDE 0.9% 1,000 ML IV SCH (10:55)
[2016-11-08 10:56] LABS: ADD UMIC YES; URINE BILIRUBIN (Dip) 1+ (NEGATIVE); URINE BLOOD (Dip) 3+ (NEGATIVE); URINE COLOR DK. RED (YELLOW); URINE GLUCOSE (Dip) NEGATIVE (NEGATIVE); URINE KETONES (Dip) NEGATIVE (NEGATIVE); URINE LEUKOCYTE ESTERASE (Dip) 2+ (NEGATIVE); URINE NITRITE (Dip) POSITIVE (NEGATIVE); URINE TOTAL PROTEIN (Dip) 4+ (NEGATIVE); URINE UROBILINOGEN (Dip) 0.2 E.U./dL (0.1-1.0)
[2016-11-08] MEDS ORDERED: ACETAMINOPHEN 325 MG TAB PO PRN (11:00)
[2016-11-08] MEDS ORDERED: VANCOMYCIN 1 GM (PMX) 250 ML IVPB ONE (11:00)
--- NOTE | 2016-11-08 11:01 | RADRPT ---
PROCEDURE: XR Chest. CLINICAL INDICATION: Shortness of breath. TECHNIQUE: Single frontal view. COMPARISON: 08/30/2016. FINDINGS: The tracheostomy tube is in satisfactory position. The right arm PICC line has been removed. There is patchy air space and interstitial disease bilaterally in the mid and lower lung zones consistent with bilateral pneumonia or pulmonary edema, worse than seen previously. There are low lung volume s. There is elevation of the right hemidiaphragm. The heart is enlarged. There is no pleural effusion. There is no pneumothorax. IMPRESSION: 1. Worse appearance of the lungs. 2. Right arm PICC line removed. 3. No other change from 08/30/2016. RPTAT: QQ .Luca Hopkins MD, MD Date Time Electronically viewed and signed by .Luca Hopkins MD, MD on 11/08/2016 11:01 .R/
[2016-11-08 11:10] LABS: BACTERIA,URINE MODERATE; ICTOTEST NEGATIVE (NEGATIVE); RENAL EPITHELIAL CELLS,URINE OCCASIONAL
--- NOTE | 2016-11-08 11:13 | ERA ---
ER Documentation Chief Complaint Date/Time DATE: 11/08/16 TIME: 11:06 Chief Complaint Abd pain w/ g tube 250 CC of coffee ground HPI This 66-year-old male presents to the emergency room after being brought in from his nursing facility by ambulance for evaluation of possible upper GI bleed. According to [facility]dc notes this patient did have what appeared to be coffee ground fluid from his G-tube. The patient also had a cough which has progressively gotten worse over the past 3 days. No fevers. Patient is unable to give a detailed history secondary to his clinical condition at this time ROS All systems reviewed and are negative except as per history of present illness. Medications Home Meds Reported Medications Zinc Sulfate* (Zinc Sulfate*) 220 Mg Cap, 220 MG GTB DAILY, CAP 11/08/16 Ascorbic Acid* (Vitamin C* Liq) 500 Mg/5 Ml Syrup, 500 MG GTB DAILY, ML 11/08/16 Sildenafil Citrate* (Sildenafil Citrate*) 20 Mg Tablet, 20 MG GTB BID, TAB 11/08/16 Calcium Carbonate/Vitamin D3 (OYSTER SHELL 500 MG + VIT D TB) 1 Each Tablet, 1 EACH GTB DAILY, TAB 11/08/16 Hydrocodone/Acetaminophen ([place] 5-325 Tablet) 1 Each Tablet, 1 EACH GTB Q4 Y for SEVERE PAIN LEVEL 7-10, TAB 11/08/16 Nifedipine* (Procardia*) 10 Mg Capsule, 30 MG GTB BID, CAP HOLD FOR SBO <100 MMHG* 11/08/16 Folic Acid/Vitamin B Comp W-C (Nephrocaps Capsule) 1 Mg Capsule, 1 MG GTB DAILY , CAP 11/08/16 Lansoprazole* (Lansoprazole*) 30 Mg Capsule.dr, 30 MG GTB DAILY, CAP 11/08/16 Ipratropium-Albuterol (Ipratropium-Albuterol) 0.5-3 Mg/3 Ml Ampul.neb, 3 ML INHALATION Q12 Y for WHEEZING AND SOB, #30 VIAL 0.02% 2.5 11/08/16 Insulin Glargine* (Lantus*) 100 Unit/Ml Soln, 10 UNIT SC DAILY, #1 VIAL 11/08/16 Insulin Aspart* (Novolog Insulin Pen*) 100 Unit/Ml Soln, 0 SC .SLIDING SCALE AC , EA 0-69 = 0 UNITS ADMINISTER GLUCOSE GEL 15G VIA G-TUBE EVERY 15MIN TILL BS IS ABOVE 80 AND NOTIFY MD 70-140= 0 UNITS 141-180= 2 UNITS 181-220 =4 UNITS 221-260 = 6 UNITS 261-300 =8 UNITS 301-350 =10 UNITS IF BS IS ABOVE 400 ADMINISTER 12 UNITS AND NOTIFY MD 11/08/16 Carvedilol* (Coreg*) 3.125 Mg Tablet, 3.125 MG GTB BID, #60 TAB 11/08/16 Atorvastatin* (Atorvastatin*) 40 Mg Tablet, 40 MG GTB QHS, #30 TAB 11/08/16 Albuterol Sulfate* (Albuterol Sulfate* Neb) 0.083%-3 Ml Neb, 2.5 MG NEB Q12 Y for COPD, #30 VIAL 11/08/16 Acetaminophen* (Acetaminophen*) 650 Mg Tablet, 650 MG GTB Q4 Y for MODERATE PAIN LEVEL 4-6, #30 TAB 11/08/16 Acetaminophen* (Acetaminophen*) 325 Mg Tablet, 325 MG GTB Q4H Y for MILD PAIN LEVEL 1-3, #30 TAB 11/08/16 Lactobacillus Acidophilus* (Lactinex*) 1 Tab Chew, 1 TAB GTB DAILY, TAB 11/08/16 Clonidine Patch (CATAPRES PATCH) 0.1 Mg/24 Hr Patch, 1 PATCH TD Q7D, #4 PATCH.WK EVERY Saturday11/08/16 Duloxetine Hcl* (Cymbalta*) 30 Mg Capsule.dr, 30 MG GTB DAILY, CAP 11/08/16 Aspirin (Low Dose Aspirin) 81 Mg Tablet.dr, 81 MG GTB DAILY, #30 TAB 11/08/16 Fluticasone Propionate* (Fluticasone Propionate* Nasal) 50 Mcg/[place] - 16 Gm [place].susp, 1 SPRAY NASAL BID, #1 BOTTLE TO EACH NOSTRIL 07/26/16 Lorazepam* (Lorazepam*) 1 Mg Tablet, 1 MG GTB Q6 Y for ANXIETY, #60 TAB 07/03/16 Discontinued Reported Medications Hydrocodone/Acetaminophen ([place] 5-325 Tablet) 1 Each Tablet, 1 EACH PO Q4 Y for WHEEZING AND SOB, TAB 07/26/16 Clindamycin Hcl* (Clindamycin Hcl*) 150 Mg Capsule, 150 MG PO QID for 10 Days, CAP START DATE ON 07-24-12 AND END DATE 08-03-16 07/26/16 Acetaminophen* (Tylenol*) 325 Mg Tablet, 650 MG PO Q6H Y for PAIN1-3/FEVER ABOVE 100, TAB 07/03/16 Sevelamer Carbonate* (Renvela*) 800 Mg Tablet, 0.8 GM PO WITH MEALS, TAB 07/03/16 Pantoprazole* (Protonix*) 40 Mg Tablet.dr, 40 MG PO DAILY, TAB 07/03/16 Clopidogrel Bisulfate* (Clopidogrel Bisulfate*) 75 Mg Tablet, 75 MG PO DAILY, # 30 TAB 07/03/16 Polyethylene Glycol* (Miralax*) 17 Gm Powd.pack, 17 GM PO DAILY, #30 PACKET 07/03/16 Guaifenesin (RICK-TUSSIN) 100 Mg/5 Ml Liquid, 100 MG PO Q4 Y for COUGH 07/03/16 Lactobacillus Acidoph/Bulgaricus* (Floranex*) 1 Each Tablet, 1 TAB.CHEW PO DAILY , TAB.CHEW 07/03/16 Duloxetine Hcl* (Cymbalta*) 30 Mg Capsule.dr, 90 MG PO DAILY for MAJOR DEPRESSIVE DISORDER, CAP 07/03/16 Aspirin* (Aspirin* EC) 81 Mg Tablet.dr, 81 MG PO DAILY, TAB 07/03/16 Albuterol Sulfate* (Albuterol Sulfate* Neb) 0.083%-3 Ml Neb, 2.5 MG NEB Q4H, # 30 VIAL 07/03/16 Allergies Allergies: Coded Allergies: Latex, Natural Rubber (Verified Allergy, Severe, 11/08/16) Penicillins (Verified Allergy, Severe, 11/08/16) adhesive tape (Verified Allergy, Severe, 11/08/16) ondansetron (Verified Allergy, Severe, 11/08/16) Uncoded Allergies: MACK (Allergy, Mild, RUNNY NOSE, 05/18/09) GRASS,WEEDS (Allergy, Unknown, 09/24/07) PMhx/Soc History of Surgery: Yes (L BKA) Anesthesia Reaction: No Hx Neurological Disorder: Yes (CONFUSION, SEIZURES) Hx Respiratory Disorders: Yes (COPD) Hx Cardiac Disorders: Yes (PVD, HTN, CHF, PTCA/CARDIAC STENT, GA, DVT) Hx Psychiatric Problems: Yes (DEPRESSION, ANXIETY) Hx Miscellaneous Medical Probl: No Hx Alcohol Use: No Hx Substance Use: No Hx Tobacco Use: Yes Smoking Status: Never smoker Physical Exam Vitals Vital Signs Date Time Temp Pulse Resp B/P Pulse Ox O2 Delivery O2 Flow Rate FiO2 11/08/16 09:00 98.9 95 20 115/65 100 Physical Exam INITIAL VITAL SIGNS: Reviewed by me GENERAL: The patient is mildly poor developed older gentleman, no acute HEENT: Pupils equal, round, and reactive to light. EOMI. There is no scleral icterus. NECK: Tracheostomy in place with yellow sputum around tracheostomy site C-spine is soft and supple, there is no meningismus. There is no cervical lymphadenopathy. LUNGS: Coarse rales all stay in the bilateral lower lobe HEART: Regular rate and rhythm, no murmurs, clicks, rubs or gallops. ABDOMEN: PEG tube in place with return of coffee-ground fluid, soft, non-tender , non-distended. There are bowel sounds in all four quadrants. No rebound or guarding. EXTREMITIES: There is no peripheral cyanosis or edema. No focal swelling or erythema. NEUROLOGICAL: The patient moves all four extremities with 5/5 strength. Cranial nerves II - XII are intact. Normal gait. Alert and oriented SKIN: There is no apparent rash or petechiae. HEME/LYMPHATIC: There is no evidence of excessive bruising or lymphedema. PSYCHIATRIC: The patient does not appear anxious or depressed. Result Diagram: 11/08/1692211/08/1623 Results 24 hrs Laboratory Tests Test 11/08/16 09:23 11/08/16 10:36 White Blood Count 15.310^3/ul Red Blood Count 2.6610^6/ul Hemoglobin 8.8g/dl Hematocrit 28.3% Mean Corpuscular Volume 106.4fl Mean Corpuscular Hemoglobin 33.1pg Mean Corpuscular Hemoglobin Concent 31.1g/dl Red Cell Distribution Width 17.3% Platelet Count 45999^3/UL Mean Platelet Volume 9.0fl Neutrophils % 88.9% Lymphocytes % 4.0% Monocytes % 6.0% Eosinophils % 0.2% Basophils % 0.3% Nucleated Red Blood Cells % 0.0/100WBC Neutrophils # 13.610^3/ul Lymphocytes # 0.610^3/ul Monocytes # 0.910^3/ul Eosinophils # 0.010^3/ul Basophils # 0.110^3/ul Nucleated Red Blood Cells # 0.010^3/ul Sodium Level 141mmol/L Potassium Level 4.3mmol/L Chloride Level 101mmol/L Carbon Dioxide Level 27mmol/L Anion Gap 17 Blood Urea Nitrogen 61mg/dl Creatinine 2.25mg/dl Glucose Level 244mg/dl Calcium Level 8.8mg/dl Total Bilirubin 0.0mg/dl Direct Bilirubin 0.00mg/dl Indirect Bilirubin 0.0mg/dl Aspartate Amino Transf (AST/SGOT) 23IU/L Alanine Aminotransferase (ALT/SGPT) 25IU/L Alkaline Phosphatase 191IU/L Total Protein 5.3g/dl Albumin 2.5g/dl Globulin 2.80g/dl Albumin/Globulin Ratio 0.89 Lipase 103U/L Urine Color DK. RED Urine Clarity CLOUDY Urine pH 6.5 Urine Specific [place] 1.015 Urine Ketones NEGATIVE Urine Nitrite POSITIVE Urine Bilirubin 1+ Urine Ictotest Pending Urine Urobilinogen 0.2 E.U./dL Urine Leukocyte Esterase 2+ Urine Microscopic RBC Pending Urine Microscopic WBC Pending Urine Hemoglobin 3+ Urine Glucose NEGATIVE% Urine Total Protein 4+ Current Medications Medications (Trade) Dose Ordered Sig/Kemar Route PRN Reason Start Time Stop Time Status Last Admin Dose Admin Sodium Chloride (NS) 500 ml @ 500 mls/hr Q1H STAT IV 11/08/16 08:57 11/08/16 09:56 DC 11/08/16 09:52 Famotidine 20 mg 20 mg ONCE STAT IV 11/08/16 08:57 11/08/16 08:58 DC 11/08/16 09:52 Cefepime HCl 50 ml @ 100 mls/hr ONCE STAT IVPB 11/08/16 10:51 11/08/16 11:20 Vancomycin HCl 250 ml @ 125 mls/hr ONCE ONCE IVPB 11/08/16 11:00 11/08/16 12:59 Sodium Chloride (NS) 1,000 ml @ 80 mls/hr [id number] IV 11/08/16 10:55 11/08/16 23:24 Acetaminophen (Tylenol Tab) 650 mg ER BRIDGE PRN PO MILD PAIN/FEVER 11/08/16 11:00 11/09/16 10:59 Procedures/MDM EKG: Rate/Rhythm: [Normal Sinus Rhythm] QRS, ST, T-waves: [No changes consistent w/ acute ischemia] Impression: [No evidence of ischemia or arrhythmia] Chest X-ray 1V Interpreted by me: Soft Tissue: Worsening bilateral pneumonia and pulmonary edema Bones: No acute abnormalities Mediastinum/Cardiac Silhouette/Lungs: [No acute abnormalities] This 66-year-old male presents to the emergency room for evaluation of possible upper GI bleed. When I evaluated this patient he did have what appeared to be coffee-ground fluid from his PEG tube. Lab work was obtained which does show a hemoglobin of 8.8 which is around this patient's baseline hemoglobin. The patient also has chronic renal insufficiency and is at his baseline creatinine. His chest x-ray does show worsening pulmonary edema and bilateral pneumonias however. The patient does have a leukocytosis and greater than 10% bands. He was not given 30 cc/kg of IV normal saline due to the fact that he does have pulmonary edema. The patient was started on vancomycin and cefepime for bilateral pneumonia. The patient did have urinary tract infection as well the patient was also given Protonix IV for upper GI bleed. The patient will be placed in for admission at this time under the care of his primary care physician Dr. bergeron. Critical Care: Time: 33 minutes Treatments/Evaluations: Close monitoring and treatment of unstable vital signs, cardiorespiratory, and neurologic status, while maintaining tight balance of fluid, respiratory, and cardiac interventions. Departure Diagnosis: Primary Impression: Sepsis Additional Impressions: Bilateral pneumonia Upper GI bleed Chronic renal insufficiency Acute cystitis Condition: CARA Mccain DO Nov 08, 2016 11:13
[2016-11-08] MEDS ORDERED: LORAZEPAM 2 MG INJ IV ONE (14:00)
--- NOTE | 2016-11-08 15:04 | CONS ---
Date/Time of Note Date/Time of Note DATE: 11/08/16 TIME: 15:00 Assessment/Plan Assessment/Plan Additional Assessment/Plan Chest x-ray was reviewed from today which is showing bilateral infiltrative changes. Assessment recommendations; 1. Patient admitted for bilateral pneumonia. Possibly superimposed UTI as well. 2. Episode of coffee-ground gastric fluid coming from the G-tube. 3. Advanced dementia. 4. Chronic respiratory failure. Next Continue current treatment. Obtain a GI consult. Consultation Date/Type/Reason Admit Date/Time Nov 08, 2016 at 10:56 Date of Consultation: Nov 08, 2016 Type of Consultation: Pulmonary Reason for Consultation Pulmonary consultations requested for evaluation of pneumonia. History presenting; patient is a 66-year-old white male who was admitted from residential sent over because of episode of dark coffee-ground emesis coming from the G-tube. Upon further evaluation chest x-ray was done which is showing bilateral pneumonia. The patient has a history of dementia and is not a good historian history was obtained from medical records. Next Past medical history; 1. Patient with a history of chronic respiratory failure, ventilator dependent. 2. History of left below-knee amputation. 3. Hypertension. 4. Status post tracheostomy and G-tube placement. 5. Advanced dementia. Next Medications; were reviewed. Next Allergies; are penicillin. Social history, family history, occupational history is not obtainable. Next Review of systems; very limited review of system could be obtained patient denies any headache, any chest pain, any abdominal pain, any shortness of breath. General exam; elderly male, restrained with soft restraints. Awake with episodes of agitation off and on. Past Surgical History Past Surgical Hx: angioplasty Social History Smoking Status: Unknown if ever smoked Exam/Review of Systems Vital Signs Vitals Vital Signs Date Time Temp Pulse Resp B/P Pulse Ox O2 Delivery O2 Flow Rate FiO2 11/08/16 13:30 30 11/08/16 12:54 99 11/08/16 12:45 19 100 11/08/16 12:06 98.9 130/71 Trach Collar Exam HEENT exam is; supple neck, no JVD. No lymphadenopathy. Midline trachea. Patient multiple carious teeth. Has bilateral intraocular lens implants. Colostomy in place with clean insertion site. Chest examination of Solo diminished breath sound bilaterally. With scattered crackles. S1-S2 audible, no murmurs. Regular rhythm. Abdomen examination soft, G-tube in place. No organomegaly. Bowel sounds audible. Extremity examination no peripheral edema. There is a left below-knee in position. Next AUDIO RECORDING ENGINEER examination; patient is awake alert follows simple commands like eye opening mouth opening etc. able to move both upper extremities. Results Result Diagram: 11/08/1692211/08/16922 Results 24 hrs Laboratory Tests Test 11/08/16 09:23 11/08/16 10:36 11/08/16 11:42 11/08/16 12:50 White Blood Count 15.3 #H Red Blood Count 2.66 L Hemoglobin 8.8 L Hematocrit 28.3 L Mean Corpuscular Volume 106.4 H Mean Corpuscular Hemoglobin 33.1 H Mean Corpuscular Hemoglobin Concent 31.1 L Red Cell Distribution Width 17.3 H Platelet Count 270 Mean Platelet Volume 9.0 Neutrophils % 88.9 H Lymphocytes % 4.0 L Monocytes % 6.0 Eosinophils % 0.2 Basophils % 0.3 Nucleated Red Blood Cells % 0.0 Neutrophils # 13.6 H Lymphocytes # 0.6 L Monocytes # 0.9 Eosinophils # 0.0 Basophils # 0.1 Nucleated Red Blood Cells # 0.0 Sodium Level 141 Potassium Level 4.3 Chloride Level 101 Carbon Dioxide Level 27 Anion Gap 17 H Blood Urea Nitrogen 61 H Creatinine 2.25 H Glucose Level 244 H Calcium Level 8.8 Total Bilirubin 0.0 L Direct Bilirubin 0.00 Indirect Bilirubin 0.0 Aspartate Amino Transf (AST/SGOT) 23 Alanine Aminotransferase (ALT/SGPT) 25 Alkaline Phosphatase 191 H Total Protein 5.3 L Albumin 2.5 L Globulin 2.80 Albumin/Globulin Ratio 0.89 Lipase 103 Urine Color DK. RED Urine Clarity CLOUDY H Urine pH 6.5 Urine Specific [place] 1.015 Urine Ketones NEGATIVE Urine Nitrite POSITIVE H Urine Bilirubin 1+ H Urine Ictotest NEGATIVE Urine Urobilinogen 0.2 E.U./dL Urine Leukocyte Esterase 2+ H Urine Microscopic RBC 10-25 Urine Microscopic WBC 10-25 Urine Renal Epithelial Cells OCCASIONAL Urine Bacteria MODERATE Urine Hemoglobin 3+ H Urine Glucose NEGATIVE Urine Total Protein 4+ H Lactic Acid Level 1.3 1.2 Medications Medications Current Medications Sodium Chloride (NS) 1,000 ml @ 80 mls/hr [id number] IV ; Start 11/08/16 at 10:55 ; Stop 11/08/16 at 23:24 ELVI BLANK Nov 08, 2016 15:04
--- NOTE | 2016-11-08 15:08 | CONS ---
DATE OF ADMISSION: 11/08/2016 DATE OF CONSULTATION: 11/08/2016 TYPE OF CONSULTATION: Nephrology. REASON FOR CONSULTATION: End-stage renal disease. PHYSICIAN REQUESTING CONSULT: Pankaj Miramontes MD HISTORY OF PRESENT ILLNESS: This is a 66-year-old male with a past medical history of ventilator-de pendent respiratory failure, history of dysphagia, status post PEG, history of left below-knee amput ation, history of encephalopathy, history of hypertension, history of mineral bone disorder, history of GERD, diabetes, coronary artery disease, depression, anxiety disorder, who presents to [facility] after the patient noted to have coffee-ground emesis from his nursing facility. The patient's history begins this morning when the patient noted to have coffee-ground fluid from h is G-tube, approximately 250 mL. The patient also had a relative decline in his physical condition over the last several days. As a result, he came to [facility] emergency room. Upon arriv al, the patient had a chest x-ray which showed patchy airspace disease, interstitial disease consist ent with pulmonary edema and/or pneumonia. The patient's laboratory data showed a white count of 15 .3, hemoglobin 8.8, platelet count 270, BUN 61, creatinine 2.25. In the emergency room, the patient was given IV vancomycin and admitted to telemetry for further evaluation. Upon my evaluation of the patient at this time, he is currently confused but awake, unable to follow simple commands. There have been reports of any rashes noted. No hematochezia or hemoptysis. PAST MEDICAL HISTORY: As stated above, history of end-stage renal disease, history ventilator-depen dent respiratory failure, history of encephalopathy, history of dysphagia, status post PEG, history of mineral bone disorder, hypertension, diabetes. PAST SURGICAL HISTORY: Status post trach, status post PEG, status post left BKA. ALLERGIES: MULTIPLE ALLERGIES. PLEASE SEE LIST. FAMILY HISTORY: Noncontributory. SOCIAL HISTORY: Lives at a subacute facility. MEDICATIONS: The patient's medications have been reviewed. REVIEW OF SYSTEMS: Unable to do adequate review of systems as patient is altered. Pertinent positi ves obtained by reviewing medical records, speaking to hospital staff, stated in the HPI, otherwise negative. PHYSICAL EXAMINATION: VITAL SIGNS: Blood pressure 130/71, respirations 16, pulse 96, temperature 98.9. HEENT: Head is normocephalic. NECK: Supple. HEART: Regular rate. LUNGS: Show diminished breath sounds at the bases. ABDOMEN: Soft, nontender to palpation. Positive PEG. EXTREMITIES: Negative for clubbing, cyanosis or edema on the right lower leg. Left BKA is noted. NEUROLOGIC: Limited exam due to lack of patient cooperation. MUSCULOSKELETAL: No joint effusions. DERMATOLOGIC: No rashes. LABORATORY DATA: Shows a white count of 15.3, hemoglobin 8.8, hematocrit 28.3, platelet count 270. Sodium 141, potassium 4.3, BUN 61, creatinine 2.25. Chest x-ray as stated above shows findings con sistent with interstitial edema and/or pneumonia. ASSESSMENT AND PLAN: This is a 66-year-old male who presents with: 1. End-stage renal disease. The patient is on dialysis Saturday, , Saturday, last hemodialy sis was Saturday. Plan for dialysis today for 3 hours, 2K bath, calcium 2.5, we will ultrafiltrate a s tolerated. The patient has access of a left AV fistula. 2. Anemia with possible gastrointestinal bleed. The patient's hemoglobin is noted to be low at 8.8 g/dL. GI consult has been placed. The patient is on proton pump inhibitor. We will continue to m onitor closely. We will give Epogen with hemodialysis. 3. Mineral bone disorder. Monitor calcium and phosphorus levels. 4. Volume overload. The patient has noted interstitial edema on exam. We will continue ultrafiltr ation dialysis. 5. Sepsis secondary to pneumonia. The patient is on broad-spectrum antibiotics, continue. Blood c ultures and sputum cultures have been sent and pending. 6. Possible gastrointestinal bleed as stated above. We will continue to monitor hemoglobin and hem atocrit levels. GI consult is pending. 7. Ventilator-dependent respiratory failure. Vent settings have been reviewed. Continue to monito r. Consider pulmonary evaluation. 8. Dysphagia, status post PEG. 9. Coronary artery disease. Continue medical management. 10. Diabetes. Continue Accu-Cheks and insulin sliding scale. 11. Depression and anxiety disorder. Continue current medical management. 12. History of hypertension. The patient is currently normotensive. Continue to monitor. 13. History of congestive heart failure. Continue current medical management. Thank you, Dr. Miramontes, for this interesting consult. It will be a pleasure to follow the patient with you throughout the hospital course. Dictated By: SARAHI RINALDI/OLESYA Conf#: [id number] DID#: [id number]
[2016-11-08] MEDS ORDERED: HYDROCODONE/APAP (5/325) TAB GTB PRN (15:30)
[2016-11-08] MEDS ORDERED: CLONIDINE 0.1 MG/24 HR PATCH TRANSDERM SCH (15:30)
[2016-11-08] MEDS ORDERED: LORAZEPAM 1 MG TAB GTB PRN (15:30)
[2016-11-08] MEDS ORDERED: ALBUTEROL 0.083% (NEB) 2.5 MG/3 ML AMP NEB PRN (15:30)
[2016-11-08] MEDS ORDERED: ALBUTEROL/IPRATROPIUM (NEB) 3 ML AMP NEB PRN (15:30)
[2016-11-08] MEDS ORDERED: GLUCOSE GEL 15 GRAM TUBE PO PRN ×2 (16:00)
[2016-11-08] MEDS ORDERED: DEXTROSE 50% 50 ML SYRINGE IV PRN (16:00)
[2016-11-08] MEDS ORDERED: GLUCOSE GEL 15 GRAM TUBE BUCCAL PRN (16:00)
[2016-11-08] MEDS ORDERED: GLUCAGON 1 MG INJ IM PRN (16:00)
--- NOTE | 2016-11-08 17:24 | HP ---
Date/Time of Note Date/Time of Note DATE: 11/08/16 TIME: 17:16 Assessment/Plan VTE Prophylaxis VTE Prophylaxis Intervention: other Lines/Catheters IV Catheter Type (from Nrs): Peripheral IV Urinary Cath still in place: No Assessment/Plan Assessment/Plan -Upper GI bleed - GI consult - Dr Hernandez notified - NPO except meds - EGD am -Sepsis - id consult- Dr Benjamin NOONAN notified -Bilateral pneumonia - pulmonary consult- Dr Pelayo notified -Chronic renal insufficiency - nephrology consult- Dr Valiente notified -Acute cystitis - Further recommendations depend upon patient clinical course. Dw Dr Miramontes HPI/ROS Admit Date/Time Admit Date/Time Nov 08, 2016 at 10:56 Hx of Present Illness Abd pain w/ g tube 250 CC of coffee ground HPI This 66-year-old male presents to the emergency room after being brought in from his nursing facility by ambulance for evaluation of possible upper GI bleed. According to skilled nursing notes this patient did have what appeared to be coffee ground fluid from his G-tube. The patient also had a cough which has progressively gotten worse over the past 3 days. No fevers. Patient is unable to give a detailed history secondary to his clinical condition at this time ROS All systems reviewed and are negative except as per history of present illness. Medications Home Meds Reported Medications Zinc Sulfate* (Zinc Sulfate*) 220 Mg Cap, 220 MG GTB DAILY, CAP 11/08/16 Ascorbic Acid* (Vitamin C* Liq) 500 Mg/5 Ml Syrup, 500 MG GTB DAILY, ML 11/08/16 Sildenafil Citrate* (Sildenafil Citrate*) 20 Mg Tablet, 20 MG GTB BID, TAB 11/08/16 Calcium Carbonate/Vitamin D3 (OYSTER SHELL 500 MG + VIT D TB) 1 Each Tablet, 1 EACH GTB DAILY, TAB 11/08/16 Hydrocodone/Acetaminophen ([place] 5-325 Tablet) 1 Each Tablet, 1 EACH GTB Q4 Y for SEVERE PAIN LEVEL 7-10, TAB 11/08/16 Nifedipine* (Procardia*) 10 Mg Capsule, 30 MG GTB BID, CAP HOLD FOR SBO <100 MMHG* 11/08/16 Folic Acid/Vitamin B Comp W-C (Nephrocaps Capsule) 1 Mg Capsule, 1 MG GTB DAILY , CAP 3/23/17 Lansoprazole* (Lansoprazole*) 30 Mg Capsule.dr, 30 MG GTB DAILY, CAP 11/08/16 Ipratropium-Albuterol (Ipratropium-Albuterol) 0.5-3 Mg/3 Ml Ampul.neb, 3 ML INHALATION Q12 Y for WHEEZING AND SOB, #30 VIAL 0.02% 2.5 11/08/16 Insulin Glargine* (Lantus*) 100 Unit/Ml Soln, 10 UNIT SC DAILY, #1 VIAL 11/08/16 Insulin Aspart* (Novolog Insulin Pen*) 100 Unit/Ml Soln, 0 SC .SLIDING SCALE AC , EA 0-69 = 0 UNITS ADMINISTER GLUCOSE GEL 15G VIA G-TUBE EVERY 15MIN TILL BS IS ABOVE 80 AND NOTIFY MD 70-140= 0 UNITS 141-180= 2 UNITS 181-220 =4 UNITS 221-260 = 6 UNITS 261-300 =8 UNITS 301-350 =10 UNITS IF BS IS ABOVE 400 ADMINISTER 12 UNITS AND NOTIFY MD 11/08/16 Carvedilol* (Coreg*) 3.125 Mg Tablet, 3.125 MG GTB BID, #60 TAB 11/08/16 Atorvastatin* (Atorvastatin*) 40 Mg Tablet, 40 MG GTB QHS, #30 TAB 11/08/16 Albuterol Sulfate* (Albuterol Sulfate* Neb) 0.083%-3 Ml Neb, 2.5 MG NEB Q12 Y for COPD, #30 VIAL 11/08/16 Acetaminophen* (Acetaminophen*) 650 Mg Tablet, 650 MG GTB Q4 Y for MODERATE PAIN LEVEL 4-6, #30 TAB 11/08/16 Acetaminophen* (Acetaminophen*) 325 Mg Tablet, 325 MG GTB Q4H Y for MILD PAIN LEVEL 1-3, #30 TAB 11/08/16 Lactobacillus Acidophilus* (Lactinex*) 1 Tab Chew, 1 TAB GTB DAILY, TAB 11/08/16 Clonidine Patch (CATAPRES PATCH) 0.1 Mg/24 Hr Patch, 1 PATCH TD Q7D, #4 PATCH.WK EVERY Saturday11/08/16 Duloxetine Hcl* (Cymbalta*) 30 Mg Capsule.dr, 30 MG GTB DAILY, CAP 11/08/16 Aspirin (Low Dose Aspirin) 81 Mg Tablet.dr, 81 MG GTB DAILY, #30 TAB 11/08/16 Fluticasone Propionate* (Fluticasone Propionate* Nasal) 50 Mcg/[place] - 16 Gm [place].susp, 1 SPRAY NASAL BID, #1 BOTTLE TO EACH NOSTRIL 07/26/16 Lorazepam* (Lorazepam*) 1 Mg Tablet, 1 MG GTB Q6 Y for ANXIETY, #60 TAB 07/03/16 Discontinued Reported Medications Hydrocodone/Acetaminophen ([place] 5-325 Tablet) 1 Each Tablet, 1 EACH PO Q4 Y for WHEEZING AND SOB, TAB 07/26/16 Clindamycin Hcl* (Clindamycin Hcl*) 150 Mg Capsule, 150 MG PO QID for 10 Days, CAP START DATE ON 07-24-12 AND END DATE 08-03-16 07/26/16 Acetaminophen* (Tylenol*) 325 Mg Tablet, 650 MG PO Q6H Y for PAIN1-3/FEVER ABOVE 100, TAB 07/03/16 Sevelamer Carbonate* (Renvela*) 800 Mg Tablet, 0.8 GM PO WITH MEALS, TAB 07/03/16 Pantoprazole* (Protonix*) 40 Mg Tablet.dr, 40 MG PO DAILY, TAB 07/03/16 Clopidogrel Bisulfate* (Clopidogrel Bisulfate*) 75 Mg Tablet, 75 MG PO DAILY, # 30 TAB 07/03/16 Polyethylene Glycol* (Miralax*) 17 Gm Powd.pack, 17 GM PO DAILY, #30 PACKET 07/03/16 Guaifenesin (RICK-TUSSIN) 100 Mg/5 Ml Liquid, 100 MG PO Q4 Y for COUGH 07/03/16 Lactobacillus Acidoph/Bulgaricus* (Floranex*) 1 Each Tablet, 1 TAB.CHEW PO DAILY , TAB.CHEW 07/03/16 Duloxetine Hcl* (Cymbalta*) 30 Mg Capsule.dr, 90 MG PO DAILY for MAJOR DEPRESSIVE DISORDER, CAP 07/03/16 Aspirin* (Aspirin* EC) 81 Mg Tablet.dr, 81 MG PO DAILY, TAB 07/03/16 Albuterol Sulfate* (Albuterol Sulfate* Neb) 0.083%-3 Ml Neb, 2.5 MG NEB Q4H, # 30 VIAL 07/03/16 Allergies Allergies: Coded Allergies: Latex, Natural Rubber (Verified Allergy, Severe, 11/08/16) Penicillins (Verified Allergy, Severe, 11/08/16) adhesive tape (Verified Allergy, Severe, 11/08/16) ondansetron (Verified Allergy, Severe, 11/08/16) Uncoded Allergies: MACK (Allergy, Mild, RUNNY NOSE, 05/18/09) GRASS,WEEDS (Allergy, Unknown, 09/24/07) PMH/Family/Social Past Medical History PMhx/Soc History of Surgery: Yes (L BKA) Anesthesia Reaction: No Hx Neurological Disorder: Yes (CONFUSION, SEIZURES) Hx Respiratory Disorders: Yes (COPD) Hx Cardiac Disorders: Yes (PVD, HTN, CHF, PTCA/CARDIAC STENT, CA, DVT) Hx Psychiatric Problems: Yes (DEPRESSION, ANXIETY) Hx Miscellaneous Medical Problem: No Hx Alcohol Use: No Hx Substance Use: No Hx Tobacco Use: Yes Smoking Status: Never smoke Past Surgical History Past Surgical Hx: angioplasty Social History Smoking Status: Unknown if ever smoked Exam/Review of Systems Vital Signs Vitals Vital Signs Date Time Temp Pulse Resp B/P Pulse Ox O2 Delivery O2 Flow Rate FiO2 11/08/16 16:09 95 11/08/16 15:50 98.0 18 131/78 99 11/08/16 15:40 30 11/08/16 12:06 Trach Collar Exam Constitutional: alert Psych: confusion Head: atraumatic Eyes: EOMI, nl sclera ENMT: nl external ears & nose Neck: non-tender Respiratory: clear to auscultation, other (trach intact) Cardiovascular: nl pulses Gastrointestinal: soft Musculoskeletal: muscle weakness, other Neurological: confused Skin: other Lymph: nontender Labs Result Diagram: 11/08/1692211/08/16922 Medications Medications Current Medications Sodium Chloride (NS) 1,000 ml @ 80 mls/hr [id number] IV ; Start 11/08/16 at 10:55 ; Stop 11/08/16 at 23:24 Influenza Virus Vaccine (Fluzone) 0.5 ml ONCE ONCE IM* ; Start 11/08/16 at 18:00 ; Stop 11/08/16 at 18:01 Lidocaine (Lidoderm) 1 patch DAILY TD ; Start 11/08/16 at 15:30 Acetaminophen (Tylenol Liquid) 325 mg Q4H PRN GTB MILD PAIN LEVEL 1-3; Start at 15:30 Acetaminophen (Tylenol Liquid) 650 mg Q4H PRN GTB MODERATE PAIN LEVEL 4-6; Start 11/08/16 at 15:30 Ascorbic Acid (Vitamin C) 500 mg DAILY GTB ; Start 11/09/16 at 09:00 Atorvastatin Calcium (Lipitor) 40 mg QHS GTB ; Start 11/08/16 at 21:00 Calcium/Vitamin D (Oyster Shell/ Vit-D (500/200)) 500 tab DAILY GTB ; Start at 09:00 Carvedilol (Coreg) 3.125 mg BID GTB ; Start 11/08/16 at 21:00 Clonidine HCl (Catapres-Tts 1 Patch) 1 patch Q7D TRANSDERM ; Start 11/08/16 at 15:30 Duloxetine HCl (Cymbalta) 30 mg DAILY GTB ; Start 11/09/16 at 09:00 Fluticasone Propionate (Flonase 0.05% Nasal) 1 spray BID NASAL ; Start 11/08/16 at 21:00 Acetaminophen/ Hydrocodone Bitart ([place] (5/325)) 500 tab Q4 PRN GTB SEVERE PAIN LEVEL 7-10; Start 11/08/16 at 15:30 Insulin Glargine (Lantus) 10 unit DAILY SC ; Start 11/09/16 at 09:00 Lactobacillus Acidoph/Bulgaricus (Floranex) 1 tab DAILY GTB ; Start 11/09/16 at 09:00 Lansoprazole (Prevacid) 30 mg DAILY GTB ; Start 11/09/16 at 09:00 Lorazepam (Ativan) 1 mg Q6 PRN GTB ANXIETY; Start 11/08/16 at 15:30 Nifedipine (Procardia) 30 mg BID GTB ; Start 11/08/16 at 21:00 Sildenafil Citrate (Revatio) 20 mg BID GTB ; Start 11/08/16 at 21:00 Zinc Sulfate (Zinc Sulfate) 220 mg DAILY GTB ; Start 11/09/16 at 09:00 Vitamin B Complex/ Vitamin C (Berocca) 1 cap DAILY GTB ; Start 11/09/16 at 09:00 Insulin Aspart (Novolog Insulin Pen) NOVOLOG *MILD* ALGORI... Q4 SC ; Start at 17:00 Miscellaneous Information 1 ea NOTE XX ; Start 11/08/16 at 16:00 Glucose (Glutose) 15 gm Q15M PRN PO DECREASED GLUCOSE; Start 11/08/16 at 16:00 Glucose (Glutose) 22.5 gm Q15M PRN PO DECREASED GLUCOSE; Start 11/08/16 at 16: 00 Dextrose (D50w Syringe) 25 ml Q15M PRN IV DECREASED GLUCOSE; Start 11/08/16 at 16:00 Dextrose (D50w Syringe) 50 ml Q15M PRN IV DECREASED GLUCOSE; Start 11/08/16 at 16:00 Glucagon (Glucagen) 1 mg Q15M PRN IM DECREASED GLUCOSE; Start 11/08/16 at 16:00 Glucose (Glutose) 15 gm Q15M PRN BUCCAL DECREASED GLUCOSE; Start 11/08/16 at 16 :00 Procedures Procedures Procedures/MDM EKG: Rate/Rhythm: [Normal Sinus Rhythm] QRS, ST, T-waves: [No changes consistent w/ acute ischemia] Impression: [No evidence of ischemia or arrhythmia] Chest X-ray 1V Interpreted by me: Soft Tissue: Worsening bilateral pneumonia and pulmonary edema Bones: No acute abnormalities Mediastinum/Cardiac Silhouette/Lungs: [No acute abnormalities] GRACIE KATHLEEN Nov 08, 2016 17:24
--- NOTE | 2016-11-08 17:43 | RADRPT ---
PROCEDURE: XR Chest. CLINICAL INDICATION: Check nasogastric tube position. TECHNIQUE: Single frontal view. COMPARISON: 11/08/2016. 1010 hours. FINDINGS: The tracheostomy tube is in satisfactory position. No nasogastric tube is visualized indicating it may be coiled in the pharynx. There is patchy air space and interstitial disease in the mid and low er lung zones consistent with bilateral pneumonia or pulmonary edema, slightly improved. There are low lung volumes and elevation of the right hemidiaphragm. The heart is enlarged. There is no pleural effusion. There is no pneumothorax. IMPRESSION: 1. Nasogastric tube not visualized indicating it may be coiled in the pharynx. 2. Improved appearance of the lungs. 3. No other change from the prior study done earlier the same day. RPTAT: QQ .Luca Hopkins MD, MD Date Time Electronically viewed and signed by .Luca Hopkins MD, MD on 11/08/2016 17:43 .R/
--- NOTE | 2016-11-08 17:54 | QN ---
Documentation Comment ID consult requested for pt (well known to our service from prior admission) who was admitted from SNF for episode of coffee-ground gastric fluid from PEG and found to have bilateral PNA with probable superimposed UTI and likely early sepsis. Dr. Alexander to see pt soon. Thank you. JERICHO CRABTREE NP Nov 08, 2016 17:54
[2016-11-08] MEDS ORDERED: INFLUENZA VIRUS VACCINE 0.5 ML SYG IM* ONE (18:00)
[2016-11-08] MEDS: LIDOCAINE 5% PATCH TD SCH (18:36)
[2016-11-08] MEDS: INSULIN ASPART [NOVOLOG] 3 ML PEN SC SCH ×2 (18:37→21:30)
[2016-11-08] MEDS ORDERED: HYDROCODONE/APAP (5/325) TAB PO PRN (21:00)
[2016-11-08] MEDS: SILDENAFIL 20 MG TAB GTB SCH (21:00)
[2016-11-08] MEDS: NIFEdipine 10 MG CAP GTB SCH (21:00)
[2016-11-08] MEDS: FLUTICASONE 0.05% 16 GM NAS SPRAY NASAL SCH (21:43)
[2016-11-08] MEDS: ATORVASTATIN 40 MG TAB GTB SCH (21:44)
[2016-11-09] VITALS (45 sets, daily range): BP systolic 93–132; BP diastolic 55–94; PULSE 60–139; RESP 14–25
[2016-11-09] MEDS: INSULIN ASPART [NOVOLOG] 3 ML PEN SC SCH ×6 (01:00→22:41)
[2016-11-09] MEDS: ACETAMINOPHEN 650MG/20.3ML CUP GTB PRN (05:28)
[2016-11-09 06:38] LABS: INR 1.25; PROTIME 15.8 Sec (12.2-14.2); PT RATIO 1.2
[2016-11-09 06:45] LABS: PARTIAL THROMBOPLASTIN TIME 38.8 Sec (25.0-35.0)
[2016-11-09 07:05] LABS: ADD SCAN DIFF NO
[2016-11-09 07:07] LABS: BASOPHIL # 0.1 10^3/ul (0.0-0.1); BASOPHILS % 0.5 % (0.0-2.0); EOSINOPHILS # 0.3 10^3/ul (0.0-0.5); EOSINOPHILS % 2.2 % (0.0-7.0); HEMATOCRIT 27.2 % (42.0-52.0); HEMOGLOBIN 8.4 g/dl (14.0-18.0); LYMPHOCYTES # 0.9 10^3/ul (0.8-2.9); LYMPHOCYTES % 7.8 % (15.0-51.0); MEAN CORPUSCULAR HEMOGLOBIN 32.7 pg (29.0-33.0); MEAN CORPUSCULAR HGB CONC 30.9 g/dl (32.0-37.0); MEAN CORPUSCULAR VOLUME 105.8 fl (82.0-101.0); MEAN PLATELET VOLUME 9.1 fl (7.4-10.4); MONOCYTES % 8.4 % (0.0-11.0); NEUTROPHIL # 9.7 10^3/ul (1.6-7.5); NEUTROPHILS % 80.5 % (39.0-77.0); PLATELET COUNT 254 10^3/UL (140-415); RED BLOOD COUNT 2.57 10^6/ul (4.70-6.10); RED CELL DISTRIBUTION WIDTH 17.2 % (11.5-14.5)
[2016-11-09 07:24] LABS: POTASSIUM 4.4 mmol/L (3.5-5.1)
[2016-11-09 07:27] LABS: CREATININE 2.51 mg/dl (0.61-1.24)
[2016-11-09 07:28] LABS: CALCIUM 8.4 mg/dl (8.4-10.2)
[2016-11-09] MEDS: ZINC SULFATE 220 MG CAP GTB SCH (09:00)
[2016-11-09] MEDS: SILDENAFIL 20 MG TAB GTB SCH ×2 (09:00→22:25)
[2016-11-09] MEDS: DULOXETINE 30 MG CAP DR GTB SCH (09:00)
[2016-11-09] MEDS: VITAMIN B COMPLEX/VIT C CAP GTB SCH (09:00)
[2016-11-09] MEDS: CALCIUM/VITAMIN D (500/200) TAB GTB SCH (09:00)
[2016-11-09] MEDS: FLUTICASONE 0.05% 16 GM NAS SPRAY NASAL SCH ×2 (09:00→22:25)
[2016-11-09] MEDS: NIFEdipine 10 MG CAP GTB SCH ×2 (09:00→22:25)
[2016-11-09] MEDS ORDERED: LANSOPRAZOLE 30 MG CAP GTB SCH (09:00)
[2016-11-09] MEDS: LACTOBACILLUS CHEW TAB GTB SCH (09:00)
[2016-11-09] MEDS: ASCORBIC ACID 500 MG TAB GTB SCH (09:00)
--- NOTE | 2016-11-09 09:50 | PN ---
DATE: 11/09/2016 SUBJECTIVE: The patient is stable, no acute events overnight. No fevers, chills, nausea, vomiting. OBJECTIVE: VITAL SIGNS: Blood pressure 110/57, respirations 18, pulse 60, temperature 98.7. HEENT: Head is normocephalic. NECK: Supple. HEART: Regular rate. LUNGS: Show diminished breath sounds at the base. ABDOMEN: Soft, nontender to palpation. No rebound or guarding. EXTREMITIES: Negative for clubbing, cyanosis, no edema on the right leg. Left BKA is noted. DERMATOLOGIC: No rashes. MUSCULOSKELETAL: No joint effusions. NEUROLOGIC: No change in exam. MEDICATIONS: The patient's medications have been reviewed. LABORATORY DATA: Shows sodium 140, potassium 4.4, chloride 103, BUN 69, creatinine 2.51. White cou nt 12.0, hemoglobin 8.4, hematocrit 27.2, platelet count 254. ASSESSMENT AND PLAN: 1. End-stage renal disease. The patient is on dialysis on Saturday, Saturday, Saturday. Last hemodi alysis was Saturday. Plan for dialysis today for 3 hours, 2K bath, calcium 2.5. 2. Anemia with possibility of acute gastrointestinal bleed. We will continue to monitor hemoglobin and hematocrit levels. Continue Epogen with dialysis. Follow up with GI. 3. Mineral bone disorder. Continue to monitor calcium and phosphorus levels. We will give phospha te binders as needed. 4. Volume overload. Continue ultrafiltration with hemodialysis. 5. Sepsis secondary to pneumonia. Continue current antibiotic regimen. Follow up cultures. 6. Ventilator dependent respiratory. Vent settings have been reviewed restriction. ABG reviewed. Co ntinue to monitor. 7. Dysphagia, status post percutaneous endoscopic gastrostomy. Continue tube feeding. 8. Coronary artery disease. Continue medical management. 9. Diabetes. Continue Accu-Cheks, insulin sliding scale. 10. Depression and anxiety disorder. Continue current treatment plan. 11. History of hypertension. The patient currently normotensive. Continue to monitor. 12. History of congestive heart failure. Continue medical management. Dictated By: SARAHI EMERSON DO NR/NTS Conf#: [id number] DID#: [id number]
[2016-11-09] MEDS ORDERED: morphine 2 MG INJ ONE (10:36)
[2016-11-09] MEDS: morphine 2 MG INJ IV PRN ×3 (10:40→18:16)
--- NOTE | 2016-11-09 10:43 | CONS ---
Date/Time of Note Date/Time of Note DATE: 11/09/16 TIME: 10:42 Assessment/Plan Assessment/Plan Additional Assessment/Plan patient seen and examined. full note to follow Consultation Date/Type/Reason Admit Date/Time Nov 08, 2016 at 10:56 Initial Consult Date 11/08/16 Type of Consultation: Pulmonary Exam/Review of Systems Vital Signs Vitals Vital Signs Date Time Temp Pulse Resp B/P Pulse Ox O2 Delivery O2 Flow Rate FiO2 11/09/16 10:33 77 11/09/16 09:20 14 100 30 11/09/16 08:00 98.7 110/57 Mechanical Ventilator Intake and Output 11/08/16 11/08/16 11/09/16 15:00 23:00 07:00 Intake Total 0 ml 0 ml Balance 0 ml 0 ml Results Result Diagram: 11/09/16 0545 11/09/16 0545 Results 24 hrs Laboratory Tests Test 11/08/16 11:42 11/08/16 12:50 11/08/16 15:55 11/08/16 17:31 Lactic Acid Level 1.3 1.2 1.2 Bedside Glucose 180 Test 11/08/16 21:23 11/09/16 02:08 11/09/16 05:37 11/09/16 05:45 Bedside Glucose 148 130 141 White Blood Count 12.0 #H Red Blood Count 2.57 L Hemoglobin 8.4 L Hematocrit 27.2 L Mean Corpuscular Volume 105.8 H Mean Corpuscular Hemoglobin 32.7 Mean Corpuscular Hemoglobin Concent 30.9 L Red Cell Distribution Width 17.2 H Platelet Count 254 Mean Platelet Volume 9.1 Neutrophils % 80.5 H Lymphocytes % 7.8 L Monocytes % 8.4 Eosinophils % 2.2 Basophils % 0.5 Nucleated Red Blood Cells % 0.0 Neutrophils # 9.7 H Lymphocytes # 0.9 Monocytes # 1.0 H Eosinophils # 0.3 Basophils # 0.1 Nucleated Red Blood Cells # 0.0 Prothrombin Time 15.8 H Prothrombin Time Ratio 1.2 INR International Normalized Ratio 1.25 Activated Partial Thromboplast Time 38.8 H Sodium Level 140 Potassium Level 4.4 Chloride Level 103 Carbon Dioxide Level 25 Anion Gap 16 Blood Urea Nitrogen 69 H Creatinine 2.51 H Glucose Level 130 # Hemoglobin A1c 5.0 Calcium Level 8.4 Medications Medications Current Medications Lidocaine (Lidoderm) 1 patch DAILY TD Last administered on 11/08/16 18:36; Admin Dose 1 PATCH; Start 11/08/16 at 15:30 Acetaminophen (Tylenol Liquid) 325 mg Q4H PRN GTB MILD PAIN LEVEL 1-3; Start at 15:30 Acetaminophen (Tylenol Liquid) 650 mg Q4H PRN GTB MODERATE PAIN LEVEL 4-6 Last administered on 11/09/16 05:28; Admin Dose 650 MG; Start 11/08/16 at 15:30 Ascorbic Acid (Vitamin C) 500 mg DAILY GTB ; Start 11/09/16 at 09:00 Atorvastatin Calcium (Lipitor) 40 mg QHS GTB Last administered on 11/08/16 21: 44; Admin Dose 40 MG; Start 11/08/16 at 21:00 Calcium/Vitamin D (Oyster Shell/ Vit-D (500/200)) 500 tab DAILY GTB ; Start at 09:00 Carvedilol (Coreg) 3.125 mg BID GTB Last administered on 11/08/16 21:44; Admin Dose 3.125 MG; Start 11/08/16 at 21:00 Clonidine HCl (Catapres-Tts 1 Patch) 1 patch Q7D TRANSDERM Last administered on 11/08/16 18:32; Admin Dose 1 PATCH; Start 11/08/16 at 15:30 Duloxetine HCl (Cymbalta) 30 mg DAILY GTB ; Start 11/09/16 at 09:00 Fluticasone Propionate (Flonase 0.05% Nasal) 1 spray BID NASAL Last administered on 11/08/16 21:43; Admin Dose 1 SPRAY; Start 11/08/16 at 21:00 Insulin Glargine (Lantus) 10 unit DAILY SC ; Start 11/09/16 at 09:00 Lactobacillus Acidoph/Bulgaricus (Floranex) 1 tab DAILY GTB ; Start 11/09/16 at 09:00 Lansoprazole (Prevacid) 30 mg DAILY GTB ; Start 11/09/16 at 09:00 Lorazepam (Ativan) 1 mg Q6 PRN GTB ANXIETY Last administered on 11/08/16 21:43 ; Admin Dose 1 MG; Start 11/08/16 at 15:30 Nifedipine (Procardia) 30 mg BID GTB ; Start 11/08/16 at 21:00 Sildenafil Citrate (Revatio) 20 mg BID GTB ; Start 11/08/16 at 21:00 Zinc Sulfate (Zinc Sulfate) 220 mg DAILY GTB ; Start 11/09/16 at 09:00 Vitamin B Complex/ Vitamin C (Berocca) 1 cap DAILY GTB ; Start 11/09/16 at 09:00 Insulin Aspart (Novolog Insulin Pen) NOVOLOG *MILD* ALGORI... Q4 SC Last administered on 11/09/16t 05:40; Admin Dose 1 UNIT; Start 11/08/16 at 17:00 Miscellaneous Information 1 ea NOTE XX ; Start 11/08/16 at 16:00 Glucose (Glutose) 15 gm Q15M PRN PO DECREASED GLUCOSE; Start 11/08/16 at 16:00 Glucose (Glutose) 22.5 gm Q15M PRN PO DECREASED GLUCOSE; Start 11/08/16 at 16: 00 Dextrose (D50w Syringe) 25 ml Q15M PRN IV DECREASED GLUCOSE; Start 11/08/16 at 16:00 Dextrose (D50w Syringe) 50 ml Q15M PRN IV DECREASED GLUCOSE; Start 11/08/16 at 16:00 Glucagon (Glucagen) 1 mg Q15M PRN IM DECREASED GLUCOSE; Start 11/08/16 at 16:00 Glucose (Glutose) 15 gm Q15M PRN BUCCAL DECREASED GLUCOSE; Start 11/08/16 at 16 :00 Acetaminophen/ Hydrocodone Bitart ([place] (5/325)) 1 tab Q4H PRN PO SEVERE PAIN 7-10; Start 11/08/16 at 21:00 Polyethylene Glycol/ Electrolytes (Golytely) 4,000 ml ONCE ONCE PO ; Start at 11:00; Stop 11/09/16 at 11:01 Morphine Sulfate (morphine) 2 mg Q4H PRN IV PAIN LEVEL 7-10; Start 11/09/16 at 11:00 JOCYE SOARES MD Nov 09, 2016 10:43
[2016-11-09] MEDS: INSULIN GLARGINE [LANtus] 3 ML PEN SC SCH (10:44)
[2016-11-09] MEDS: LIDOCAINE 5% PATCH TD SCH (10:48)
[2016-11-09] MEDS ORDERED: PEG/ELECTROLYTES 4L BTL PO ONE (11:00)
[2016-11-09] MEDS ORDERED: ONDANSETRON 4 MG INJ IV PRN (11:00)
[2016-11-09 11:56] LABS: INR 1.16; PROTIME 14.8 Sec (12.2-14.2); PT RATIO 1.2
[2016-11-09 11:57] LABS: PARTIAL THROMBOPLASTIN TIME 43.8 Sec (25.0-35.0)
[2016-11-09] MEDS ORDERED: MIDAZOLAM 1 MG/ML 2 ML INJ ONE (12:00)
[2016-11-09] MEDS ORDERED: FENTAnyl 50 MCG/ML VIAL ONE (12:00)
--- NOTE | 2016-11-09 12:02 | CONS ---
Date/Time of Note Date/Time of Note DATE: 11/09/16 TIME: 11:59 Assessment/Plan Assessment/Plan Additional Assessment/Plan Ventilator settings; AC of 14, tidal volume 550, PEEP of 5, 30% FiO2. Next Assessment recommendations; 1. Patient admitted for G-tube malfunction with leakage of fluid around the insertion site. Possibly dislodgment of G-tube. 2. Chronic respiratory failure, patient on ventilator. 3. Advanced dementia. 4. History of hypertension. 5. UTI and pneumonia. 6. End-stage renal disease, on hemodialysis. Continue current treatment. G-tube evaluation per GI. Consultation Date/Type/Reason Admit Date/Time Nov 08, 2016 at 10:56 Initial Consult Date 11/08/16 Type of Consultation: Pulmonary 24 HR Interval Summary Free Text/Dictation Patient condition remains stable. No further coffee-ground emesis noted. Patient has remained hemodynamically stable. General exam; elderly male, on ventilator via tracheostomy. Has episodes of occasional agitation. Exam/Review of Systems Vital Signs Vitals Vital Signs Date Time Temp Pulse Resp B/P Pulse Ox O2 Delivery O2 Flow Rate FiO2 11/09/16 11:50 82 11/09/16 11:20 24 100 30 11/09/16 08:00 98.7 110/57 Mechanical Ventilator Intake and Output 11/08/16 11/08/16 11/09/16 15:00 23:00 07:00 Intake Total 0 ml 0 ml Balance 0 ml 0 ml Exam HEENT exam; supple neck, no JVD. No lymphadenopathy. Midline trachea. No thyromegaly. Patient multiple carious teeth. Has bilateral intraocular lens implants. Tracheostomy in place. Chest examination; diminished but clear vessel. S1-S2 audible, no murmurs. Regular rhythm. Abdomen examination; soft, G-tube in place. Bowel sounds audible. No organomegaly. Extremity exam; no peripheral edema. Patient has a well-healed left below-knee in position. SIGNAL ENGINEER examination; patient is awake does not follow any commands moves all 4 extremities spontaneously. Results Result Diagram: 11/09/16 0545 11/09/16 0545 Results 24 hrs Laboratory Tests Test 11/08/16 12:50 11/08/16 15:55 11/08/16 17:31 11/08/16 21:23 Lactic Acid Level 1.2 1.2 Bedside Glucose 180 148 Test 11/09/16 02:08 11/09/16 05:37 11/09/16 05:45 11/09/16 10:39 Bedside Glucose 130 141 149 White Blood Count 12.0 #H Red Blood Count 2.57 L Hemoglobin 8.4 L Hematocrit 27.2 L Mean Corpuscular Volume 105.8 H Mean Corpuscular Hemoglobin 32.7 Mean Corpuscular Hemoglobin Concent 30.9 L Red Cell Distribution Width 17.2 H Platelet Count 254 Mean Platelet Volume 9.1 Neutrophils % 80.5 H Lymphocytes % 7.8 L Monocytes % 8.4 Eosinophils % 2.2 Basophils % 0.5 Nucleated Red Blood Cells % 0.0 Neutrophils # 9.7 H Lymphocytes # 0.9 Monocytes # 1.0 H Eosinophils # 0.3 Basophils # 0.1 Nucleated Red Blood Cells # 0.0 Prothrombin Time 15.8 H Prothrombin Time Ratio 1.2 INR International Normalized Ratio 1.25 Activated Partial Thromboplast Time 38.8 H Sodium Level 140 Potassium Level 4.4 Chloride Level 103 Carbon Dioxide Level 25 Anion Gap 16 Blood Urea Nitrogen 69 H Creatinine 2.51 H Glucose Level 130 # Hemoglobin A1c 5.0 Calcium Level 8.4 Test 11/09/16 11:30 Prothrombin Time 14.8 H Prothrombin Time Ratio 1.2 INR International Normalized Ratio 1.16 Activated Partial Thromboplast Time 43.8 H Medications Medications Current Medications Lidocaine (Lidoderm) 1 patch DAILY TD Last administered on 11/09/16 10:48; Admin Dose 1 PATCH; Start 11/08/16 at 15:30 Acetaminophen (Tylenol Liquid) 325 mg Q4H PRN GTB MILD PAIN LEVEL 1-3; Start at 15:30 Acetaminophen (Tylenol Liquid) 650 mg Q4H PRN GTB MODERATE PAIN LEVEL 4-6 Last administered on 11/09/16 05:28; Admin Dose 650 MG; Start 11/08/16 at 15:30 Ascorbic Acid (Vitamin C) 500 mg DAILY GTB ; Start 11/09/16 at 09:00 Atorvastatin Calcium (Lipitor) 40 mg QHS GTB Last administered on 11/08/16 21: 44; Admin Dose 40 MG; Start 11/08/16 at 21:00 Calcium/Vitamin D (Oyster Shell/ Vit-D (500/200)) 500 tab DAILY GTB ; Start at 09:00 Carvedilol (Coreg) 3.125 mg BID GTB Last administered on 11/08/16 21:44; Admin Dose 3.125 MG; Start 11/08/16 at 21:00 Clonidine HCl (Catapres-Tts 1 Patch) 1 patch Q7D TRANSDERM Last administered on 11/08/16 18:32; Admin Dose 1 PATCH; Start 11/08/16 at 15:30 Duloxetine HCl (Cymbalta) 30 mg DAILY GTB ; Start 11/09/16 at 09:00 Fluticasone Propionate (Flonase 0.05% Nasal) 1 spray BID NASAL Last administered on 11/08/16 21:43; Admin Dose 1 SPRAY; Start 11/08/16 at 21:00 Insulin Glargine (Lantus) 10 unit DAILY SC Last administered on 11/09/16 10:44 ; Admin Dose 10 UNIT; Start 11/09/16 at 09:00 Lactobacillus Acidoph/Bulgaricus (Floranex) 1 tab DAILY GTB ; Start 11/09/16 at 09:00 Lansoprazole (Prevacid) 30 mg DAILY GTB ; Start 11/09/16 at 09:00 Lorazepam (Ativan) 1 mg Q6 PRN GTB ANXIETY Last administered on 11/08/16 21:43 ; Admin Dose 1 MG; Start 11/08/16 at 15:30 Nifedipine (Procardia) 30 mg BID GTB ; Start 11/08/16 at 21:00 Sildenafil Citrate (Revatio) 20 mg BID GTB ; Start 11/08/16 at 21:00 Zinc Sulfate (Zinc Sulfate) 220 mg DAILY GTB ; Start 11/09/16 at 09:00 Vitamin B Complex/ Vitamin C (Berocca) 1 cap DAILY GTB ; Start 11/09/16 at 09:00 Insulin Aspart (Novolog Insulin Pen) NOVOLOG *MILD* ALGORI... Q4 SC Last administered on 11/09/16 10:47; Admin Dose 1 UNIT; Start 11/08/16 at 17:00 Miscellaneous Information 1 ea NOTE XX ; Start 11/08/16 at 16:00 Glucose (Glutose) 15 gm Q15M PRN PO DECREASED GLUCOSE; Start 11/08/16 at 16:00 Glucose (Glutose) 22.5 gm Q15M PRN PO DECREASED GLUCOSE; Start 11/08/16 at 16: 00 Dextrose (D50w Syringe) 25 ml Q15M PRN IV DECREASED GLUCOSE; Start 11/08/16 at 16:00 Dextrose (D50w Syringe) 50 ml Q15M PRN IV DECREASED GLUCOSE; Start 11/08/16 at 16:00 Glucagon (Glucagen) 1 mg Q15M PRN IM DECREASED GLUCOSE; Start 11/08/16 at 16:00 Glucose (Glutose) 15 gm Q15M PRN BUCCAL DECREASED GLUCOSE; Start 11/08/16 at 16 :00 Acetaminophen/ Hydrocodone Bitart ([place] (5/325)) 1 tab Q4H PRN PO SEVERE PAIN 7-10; Start 11/08/16 at 21:00 Morphine Sulfate (morphine) 2 mg Q4H PRN IV PAIN LEVEL 7-10; Start 11/09/16 at 11:00 ELVI BLANK Nov 09, 2016 12:02
--- NOTE | 2016-11-09 14:50 | CONS ---
Date/Time of Note Date/Time of Note DATE: 11/09/16 TIME: 14:45 Assessment/Plan Assessment/Plan Additional Assessment/Plan Paroxysmal atrial tachycardia Possible GI bleed Respiratory failure status post tracheostomy Diastolic congestive heart failure End-stage renal disease on hemodialysis CAD with history of PCI Diabetes Peripheral arterial disease with history of amputation Pulmonary hypertension -Patient with brief episodes of atrial tachycardia noted on telemetry. Patient with known history of atrial tachycardia. He has not been receiving his medication secondary to his GI bleed issues. Would give 1 dose of IV digoxin. Continue telemetry monitoring. Check magnesium level. Restart beta-shivani when able to tolerate Consultation Date/Type/Reason Admit Date/Time Nov 08, 2016 at 10:56 Type of Consultation: cv Reason for Consultation Tachycardia Hx of Present Illness This is a 66-year-old male well-known to me from multiple previous admissions who presents with evidence of GI bleed. Patient with increased residuals and with evidence of coffee-ground from his PEG tube. Patient undergoing GI evaluation and treatment. Patient noted to have episodes of tachycardia on telemetry and for this reason cardiology consultation was requested. Denies any chest pain, shortness of breath, palpitations or dizziness. He does complain of pain around the PEG site. Unable to be performed at the current time given patient difficulty with speaking and on ventilator Psychological: confusion Past Medical History Respiratory failure status post tracheostomy Diastolic congestive heart failure End-stage renal disease on hemodialysis CAD with history of PCI Diabetes Peripheral arterial disease with history of amputation Pulmonary hypertension Past Surgical History Including but not limited to tracheostomy, PEG placement Past Surgical Hx: angioplasty Family History Significant Family History: no pertinent family hx Social History Alcohol Use: none Smoking Status: Unknown if ever smoked Other Social History From care home facility Exam/Review of Systems Vital Signs Vitals Vital Signs Date Time Temp Pulse Resp B/P Pulse Ox O2 Delivery O2 Flow Rate FiO2 11/09/16 14:00 98.7 91 18 132/61 99 Mechanical Ventilator 11/09/16 11:20 30 Intake and Output 11/08/16 11/08/16 11/09/16 15:00 23:00 07:00 Intake Total 0 ml 0 ml Balance 0 ml 0 ml Exam Follows commands, becomes agitated at times Constitutional: alert Head: normocephalic Neck: other (Tracheostomy) Respiratory: other (Coarse breath sounds bilaterally, no wheezing) Cardiovascular: other (S1-S2 heard), regular rate and rhythm Gastrointestinal: bowel sounds, other (Discomfort with palpation of abdomen, no guarding), soft Extremities: other (No edema or cyanosis) Results Result Diagram: 11/09/1645 11/09/1645 Results 24 hrs Laboratory Tests Test 11/08/16 15:55 11/08/16 17:31 11/08/16 21:23 11/09/16 02:08 Lactic Acid Level 1.2 Bedside Glucose 180 148 130 Test 11/09/16 05:37 11/09/16 05:45 11/09/16 10:39 11/09/16 11:30 Bedside Glucose 141 149 White Blood Count 12.0 #H Red Blood Count 2.57 L Hemoglobin 8.4 L Hematocrit 27.2 L Mean Corpuscular Volume 105.8 H Mean Corpuscular Hemoglobin 32.7 Mean Corpuscular Hemoglobin Concent 30.9 L Red Cell Distribution Width 17.2 H Platelet Count 254 Mean Platelet Volume 9.1 Neutrophils % 80.5 H Lymphocytes % 7.8 L Monocytes % 8.4 Eosinophils % 2.2 Basophils % 0.5 Nucleated Red Blood Cells % 0.0 Neutrophils # 9.7 H Lymphocytes # 0.9 Monocytes # 1.0 H Eosinophils # 0.3 Basophils # 0.1 Nucleated Red Blood Cells # 0.0 Prothrombin Time 15.8 H 14.8 H Prothrombin Time Ratio 1.2 1.2 INR International Normalized Ratio 1.25 1.16 Activated Partial Thromboplast Time 38.8 H 43.8 H Sodium Level 140 Potassium Level 4.4 Chloride Level 103 Carbon Dioxide Level 25 Anion Gap 16 Blood Urea Nitrogen 69 H Creatinine 2.51 H Glucose Level 130 # Hemoglobin A1c 5.0 Calcium Level 8.4 Test 11/09/16 13:24 Bedside Glucose 140 Medications Medications Current Medications Lidocaine (Lidoderm) 1 patch DAILY TD Last administered on 11/09/16 10:48; Admin Dose 1 PATCH; Start 11/08/16 at 15:30 Acetaminophen (Tylenol Liquid) 325 mg Q4H PRN GTB MILD PAIN LEVEL 1-3; Start at 15:30 Acetaminophen (Tylenol Liquid) 650 mg Q4H PRN GTB MODERATE PAIN LEVEL 4-6 Last administered on 11/09/16 05:28; Admin Dose 650 MG; Start 11/08/16 at 15:30 Ascorbic Acid (Vitamin C) 500 mg DAILY GTB ; Start 11/09/16 at 09:00 Atorvastatin Calcium (Lipitor) 40 mg QHS GTB Last administered on 11/08/16 21: 44; Admin Dose 40 MG; Start 11/08/16 at 21:00 Calcium/Vitamin D (Oyster Shell/ Vit-D (500/200)) 500 tab DAILY GTB ; Start at 09:00 Carvedilol (Coreg) 3.125 mg BID GTB Last administered on 11/08/16 21:44; Admin Dose 3.125 MG; Start 11/08/16 at 21:00 Clonidine HCl (Catapres-Tts 1 Patch) 1 patch Q7D TRANSDERM Last administered on 11/08/16 18:32; Admin Dose 1 PATCH; Start 11/08/16 at 15:30 Duloxetine HCl (Cymbalta) 30 mg DAILY GTB ; Start 11/09/16 at 09:00 Fluticasone Propionate (Flonase 0.05% Nasal) 1 spray BID NASAL Last administered on 11/08/16 21:43; Admin Dose 1 SPRAY; Start 11/08/16 at 21:00 Insulin Glargine (Lantus) 10 unit DAILY SC Last administered on 11/09/16 10:44 ; Admin Dose 10 UNIT; Start 11/09/16 at 09:00 Lactobacillus Acidoph/Bulgaricus (Floranex) 1 tab DAILY GTB ; Start 11/09/16 at 09:00 Lansoprazole (Prevacid) 30 mg DAILY GTB ; Start 11/09/16 at 09:00 Lorazepam (Ativan) 1 mg Q6 PRN GTB ANXIETY Last administered on 11/08/16 21:43 ; Admin Dose 1 MG; Start 11/08/16 at 15:30 Nifedipine (Procardia) 30 mg BID GTB ; Start 11/08/16 at 21:00 Sildenafil Citrate (Revatio) 20 mg BID GTB ; Start 11/08/16 at 21:00 Zinc Sulfate (Zinc Sulfate) 220 mg DAILY GTB ; Start 11/09/16 at 09:00 Vitamin B Complex/ Vitamin C (Beroc[place]) 1 cap DAILY GTB ; Start 11/09/16 at 09:00 Insulin Aspart (Novolog Insulin Pen) NOVOLOG *MILD* ALGORI... Q4 SC Last administered on 11/09/16 10:47; Admin Dose 1 UNIT; Start 11/08/16 at 17:00 Miscellaneous Information 1 ea NOTE XX ; Start 11/08/16 at 16:00 Glucose (Glutose) 15 gm Q15M PRN PO DECREASED GLUCOSE; Start 11/08/16 at 16:00 Glucose (Glutose) 22.5 gm Q15M PRN PO DECREASED GLUCOSE; Start 11/08/16 at 16: 00 Dextrose (D50w Syringe) 25 ml Q15M PRN IV DECREASED GLUCOSE; Start 11/08/16 at 16:00 Dextrose (D50w Syringe) 50 ml Q15M PRN IV DECREASED GLUCOSE; Start 11/08/16 at 16:00 Glucagon (Glucagen) 1 mg Q15M PRN IM DECREASED GLUCOSE; Start 11/08/16 at 16:00 Glucose (Glutose) 15 gm Q15M PRN BUCCAL DECREASED GLUCOSE; Start 11/08/16 at 16 :00 Acetaminophen/ Hydrocodone Bitart ([place] (5/325)) 1 tab Q4H PRN PO SEVERE PAIN 7-10; Start 11/08/16 at 21:00 Morphine Sulfate (morphine) 2 mg Q4H PRN IV PAIN LEVEL 7-10 Last administered on 11/09/16 14:11; Admin Dose 2 MG; Start 11/09/16 at 11:00 Collagenase (Santyl) 1 applic DAILY TOP ; Start 11/09/16 at 16:00 Morphine Sulfate (morphine) 2 mg ONCE ONCE IV ; Start 11/09/16 at 15:00; Stop 11/09/16 at 15:01 Procedures Procedures ECG demonstrates sinus rhythm with P BCs, right bundle branch block, QRS 134 ms , nonspecific STT wave abnormalities Solo Leon DO Nov 09, 2016 14:50
[2016-11-09] MEDS ORDERED: morphine 2 MG INJ IV ONE (15:00)
[2016-11-09] MEDS ORDERED: DIGOXIN 500 MCG INJ IV ONE (15:00)
--- NOTE | 2016-11-09 16:21 | PN ---
Date/Time of Note Date/Time of Note DATE: 11/09/16 TIME: 16:11 Assessment/Plan VTE Prophylaxis VTE Prophylaxis Intervention: SCD's Lines/Catheters [facility] Peripheral IV Urinary Cath still in place: No Assessment/Plan Assessment/Plan - Possible GI bleed, patient is followed by Dr. Hernandez in gastroenterology consultation, pending EGD. - Anemia possibly of GI bleed patient has known anemia of chronic disease, on Epogen, continue to monitor hemoglobin and hematocrit, transfuse as needed. - Systemic inflammatory response syndrome with leukocytosis, patient is followed by Dr. Benjamin deluna in infection disease consultation. - End-stage renal disease, hemodialysis dependent. Continue hemodialysis per nephrology. - Chronic respiratory failure with tracheostomy. Dr. Sahu is following in pulmonology consultation. - Coronary artery disease with history of PCI. - Diastolic congestive heart failure -Pulmonary hypertension - Peripheral vascular disease, status post left BKA. - Diabetes mellitus type 2, continue NovoLog per sliding scale. -Sacral decub present on admission Subjective 24 Hr Interval Summary Free Text/Dictation Patient is currently is awake alert complains of abdominal pain, continues on ventilatory support via tracheostomy. Exam/Review of Systems Vital Signs Vitals Vital Signs Date Time Temp Pulse Resp B/P Pulse Ox O2 Delivery O2 Flow Rate FiO2 11/09/16 16:02 98.3 91 19 120/58 98 11/09/16 15:35 30 11/09/16 14:00 Mechanical Ventilator Intake and Output 11/08/16 11/08/16 11/09/16 15:00 23:00 07:00 Intake Total 0 ml 0 ml Balance 0 ml 0 ml Exam GENERAL: Well-developed, well-nourished male, currently on vent support. HEENT: Head is atraumatic, normocephalic. PERRLA. NECK: Supple. Tracheostomy at the base of the neck. LUNGS: Slightly diminished at the bases. Clear in the upper lobes. HEART: Normal S1, S2. No murmurs, gallops, clicks, rubs noted. ABDOMEN: Protuberant, soft, nondistended, nontender. G-tube in place. EXTREMITIES: The patient is status post left BKA. Right lower extremity with mild edema. The patient has a left upper extremity arteriovenous fistula with palpable thrill and audible bruit. SKIN: No rash, petechiae noted. Sacral decubitus ulcer. NEUROLOGIC: The patient is awake, alert. Results Result Diagram: 11/09/16 0545 11/09/16 0545 Results 24 hrs Laboratory Tests Test 11/08/16 17:31 11/08/16 21:23 11/09/16 02:08 11/09/16 05:37 Bedside Glucose 180 148 130 141 Test 11/09/16 05:45 11/09/16 10:39 11/09/16 11:30 11/09/16 13:24 White Blood Count 12.0 #H Red Blood Count 2.57 L Hemoglobin 8.4 L Hematocrit 27.2 L Mean Corpuscular Volume 105.8 H Mean Corpuscular Hemoglobin 32.7 Mean Corpuscular Hemoglobin Concent 30.9 L Red Cell Distribution Width 17.2 H Platelet Count 254 Mean Platelet Volume 9.1 Neutrophils % 80.5 H Lymphocytes % 7.8 L Monocytes % 8.4 Eosinophils % 2.2 Basophils % 0.5 Nucleated Red Blood Cells % 0.0 Neutrophils # 9.7 H Lymphocytes # 0.9 Monocytes # 1.0 H Eosinophils # 0.3 Basophils # 0.1 Nucleated Red Blood Cells # 0.0 Prothrombin Time 15.8 H 14.8 H Prothrombin Time Ratio 1.2 1.2 INR International Normalized Ratio 1.25 1.16 Activated Partial Thromboplast Time 38.8 H 43.8 H Sodium Level 140 Potassium Level 4.4 Chloride Level 103 Carbon Dioxide Level 25 Anion Gap 16 Blood Urea Nitrogen 69 H Creatinine 2.51 H Glucose Level 130 # Hemoglobin A1c 5.0 Calcium Level 8.4 Bedside Glucose 149 140 Medications Medications Current Medications Lidocaine (Lidoderm) 1 patch DAILY TD Last administered on 11/09/16 10:48; Admin Dose 1 PATCH; Start 11/08/16 at 15:30 Acetaminophen (Tylenol Liquid) 325 mg Q4H PRN GTB MILD PAIN LEVEL 1-3; Start at 15:30 Acetaminophen (Tylenol Liquid) 650 mg Q4H PRN GTB MODERATE PAIN LEVEL 4-6 Last administered on 11/09/16 05:28; Admin Dose 650 MG; Start 11/08/16 at 15:30 Ascorbic Acid (Vitamin C) 500 mg DAILY GTB ; Start 11/09/16 at 09:00 Atorvastatin Calcium (Lipitor) 40 mg QHS GTB Last administered on 11/08/16 21: 44; Admin Dose 40 MG; Start 11/08/16 at 21:00 Calcium/Vitamin D (Oyster Shell/ Vit-D (500/200)) 500 tab DAILY GTB ; Start at 09:00 Carvedilol (Coreg) 3.125 mg BID GTB Last administered on 11/08/16 21:44; Admin Dose 3.125 MG; Start 11/08/16 at 21:00 Clonidine HCl (Catapres-Tts 1 Patch) 1 patch Q7D TRANSDERM Last administered on 11/08/16 18:32; Admin Dose 1 PATCH; Start 11/08/16 at 15:30 Duloxetine HCl (Cymbalta) 30 mg DAILY GTB ; Start 11/09/16 at 09:00 Fluticasone Propionate (Flonase 0.05% Nasal) 1 spray BID NASAL Last administered on 11/08/16 21:43; Admin Dose 1 SPRAY; Start 11/08/16 at 21:00 Insulin Glargine (Lantus) 10 unit DAILY SC Last administered on 11/09/16 10:44 ; Admin Dose 10 UNIT; Start 11/09/16 at 09:00 Lactobacillus Acidoph/Bulgaricus (Floranex) 1 tab DAILY GTB ; Start 11/09/16 at 09:00 Lansoprazole (Prevacid) 30 mg DAILY GTB ; Start 11/09/16 at 09:00 Lorazepam (Ativan) 1 mg Q6 PRN GTB ANXIETY Last administered on 11/08/16 21:43 ; Admin Dose 1 MG; Start 11/08/16 at 15:30 Nifedipine (Procardia) 30 mg BID GTB ; Start 11/08/16 at 21:00 Sildenafil Citrate (Revatio) 20 mg BID GTB ; Start 11/08/16 at 21:00 Zinc Sulfate (Zinc Sulfate) 220 mg DAILY GTB ; Start 11/09/16 at 09:00 Vitamin B Complex/ Vitamin C (Berocca) 1 cap DAILY GTB ; Start 11/09/16 at 09:00 Insulin Aspart (Novolog Insulin Pen) NOVOLOG *MILD* ALGORI... Q4 SC Last administered on 11/09/16 10:47; Admin Dose 1 UNIT; Start 11/08/16 at 17:00 Miscellaneous Information 1 ea NOTE XX ; Start 11/08/16 at 16:00 Glucose (Glutose) 15 gm Q15M PRN PO DECREASED GLUCOSE; Start 11/08/16 at 16:00 Glucose (Glutose) 22.5 gm Q15M PRN PO DECREASED GLUCOSE; Start 11/08/16 at 16: 00 Dextrose (D50w Syringe) 25 ml Q15M PRN IV DECREASED GLUCOSE; Start 11/08/16 at 16:00 Dextrose (D50w Syringe) 50 ml Q15M PRN IV DECREASED GLUCOSE; Start 11/08/16 at 16:00 Glucagon (Glucagen) 1 mg Q15M PRN IM DECREASED GLUCOSE; Start 11/08/16 at 16:00 Glucose (Glutose) 15 gm Q15M PRN BUCCAL DECREASED GLUCOSE; Start 11/08/16 at 16 :00 Acetaminophen/ Hydrocodone Bitart ([place] (5/325)) 1 tab Q4H PRN PO SEVERE PAIN 7-10; Start 11/08/16 at 21:00 Morphine Sulfate (morphine) 2 mg Q4H PRN IV PAIN LEVEL 7-10 Last administered on 11/09/16t 14:11; Admin Dose 2 MG; Start 11/09/16 at 11:00 Collagenase (Santyl) 1 applic DAILY TOP ; Start 11/09/16 at 16:00 MARY DOMINGUEZ Nov 09, 2016 16:21
--- NOTE | 2016-11-09 17:04 | CONS ---
Date/Time of Note Date/Time of Note DATE: 11/09/16 TIME: 16:58 Assessment/Plan Assessment/Plan Chief Complaint/Hosp Course 1. SIRS likely 2/2 to gi bleed 2. hx of esrd on hd 3. chronic resp failure 4. pulm edema 5. hx of htn 6. hx of cdiff R: Monitor very closely off abx low threshold to start broad spectrum empiric abx if deteriorates serial lactic acid and procalc will follow closely with you. thanks Problems: Consultation Date/Type/Reason Admit Date/Time Nov 08, 2016 at 10:56 Date of Consultation: Nov 09, 2016 Type of Consultation: id Reason for Consultation abx recs Referring Provider: JOYCE SOARES MD Hx of Present Illness This is a very sad case of a 66 yo male with hx of esrd on hd, chronic resp failure, cdiff, who was now admitted with probable gi bleed. He is scheduled for endoscopy. He was noted to have SIRS vs. Sepsis on admit. He has improved off abx currentl;y. No fevers have been documented. Subjective hx not possible: other (patient is unable to give a detailed hx) Past Surgical History Past Surgical Hx: angioplasty Social History Alcohol Use: none Smoking Status: Unknown if ever smoked Exam/Review of Systems Vital Signs Vitals Vital Signs Date Time Temp Pulse Resp B/P Pulse Ox O2 Delivery O2 Flow Rate FiO2 11/09/16 16:02 98.3 91 19 120/58 98 11/09/16 15:35 30 11/09/16 14:00 Mechanical Ventilator Intake and Output 11/08/16 11/08/16 11/09/16 14:59 22:59 06:59 Intake Total 0 ml 0 ml Balance 0 ml 0 ml Exam Constitutional: alert Head: atraumatic, normocephalic Eyes: EOMI, PERRL, nl conjunctiva, nl lids, nl sclera Neck: non-tender, supple Respiratory: clear to auscultation, normal air movement Cardiovascular: nl pulses, regular rate and rhythm Gastrointestinal: soft Neurological: SAW FEEDER II-XII intact, nl mental status, nl speech, nl strength Results Result Diagram: 11/09/16 0545 11/09/16 0545 Results 24 hrs Laboratory Tests Test 11/08/16 17:31 11/08/16 21:23 11/09/16 02:08 11/09/16 05:37 Bedside Glucose 180 148 130 141 Test 11/09/16 05:45 11/09/16 10:39 11/09/16 11:30 11/09/16 13:24 White Blood Count 12.0 #H Red Blood Count 2.57 L Hemoglobin 8.4 L Hematocrit 27.2 L Mean Corpuscular Volume 105.8 H Mean Corpuscular Hemoglobin 32.7 Mean Corpuscular Hemoglobin Concent 30.9 L Red Cell Distribution Width 17.2 H Platelet Count 254 Mean Platelet Volume 9.1 Neutrophils % 80.5 H Lymphocytes % 7.8 L Monocytes % 8.4 Eosinophils % 2.2 Basophils % 0.5 Nucleated Red Blood Cells % 0.0 Neutrophils # 9.7 H Lymphocytes # 0.9 Monocytes # 1.0 H Eosinophils # 0.3 Basophils # 0.1 Nucleated Red Blood Cells # 0.0 Prothrombin Time 15.8 H 14.8 H Prothrombin Time Ratio 1.2 1.2 INR International Normalized Ratio 1.25 1.16 Activated Partial Thromboplast Time 38.8 H 43.8 H Sodium Level 140 Potassium Level 4.4 Chloride Level 103 Carbon Dioxide Level 25 Anion Gap 16 Blood Urea Nitrogen 69 H Creatinine 2.51 H Glucose Level 130 # Hemoglobin A1c 5.0 Calcium Level 8.4 Bedside Glucose 149 140 Medications Medications Current Medications Lidocaine (Lidoderm) 1 patch DAILY TD Last administered on 11/09/16 10:48; Admin Dose 1 PATCH; Start 11/08/16 at 15:30 Acetaminophen (Tylenol Liquid) 325 mg Q4H PRN GTB MILD PAIN LEVEL 1-3; Start at 15:30 Acetaminophen (Tylenol Liquid) 650 mg Q4H PRN GTB MODERATE PAIN LEVEL 4-6 Last administered on 11/09/16 05:28; Admin Dose 650 MG; Start 11/08/16 at 15:30 Ascorbic Acid (Vitamin C) 500 mg DAILY GTB ; Start 11/09/16 at 09:00 Atorvastatin Calcium (Lipitor) 40 mg QHS GTB Last administered on 11/08/16 21: 44; Admin Dose 40 MG; Start 11/08/16 at 21:00 Calcium/Vitamin D (Oyster Shell/ Vit-D (500/200)) 500 tab DAILY GTB ; Start at 09:00 Carvedilol (Coreg) 3.125 mg BID GTB Last administered on 11/08/16 21:44; Admin Dose 3.125 MG; Start 11/08/16 at 21:00 Clonidine HCl (Catapres-Tts 1 Patch) 1 patch Q7D TRANSDERM Last administered on 11/08/16 18:32; Admin Dose 1 PATCH; Start 11/08/16 at 15:30 Duloxetine HCl (Cymbalta) 30 mg DAILY GTB ; Start 11/09/16 at 09:00 Fluticasone Propionate (Flonase 0.05% Nasal) 1 spray BID NASAL Last administered on 11/08/16 21:43; Admin Dose 1 SPRAY; Start 11/08/16 at 21:00 Insulin Glargine (Lantus) 10 unit DAILY SC Last administered on 11/09/16 10:44 ; Admin Dose 10 UNIT; Start 11/09/16 at 09:00 Lactobacillus Acidoph/Bulgaricus (Floranex) 1 tab DAILY GTB ; Start 11/09/16 at 09:00 Lansoprazole (Prevacid) 30 mg DAILY GTB ; Start 11/09/16 at 09:00 Lorazepam (Ativan) 1 mg Q6 PRN GTB ANXIETY Last administered on 11/08/16 21:43 ; Admin Dose 1 MG; Start 11/08/16 at 15:30 Nifedipine (Procardia) 30 mg BID GTB ; Start 11/08/16 at 21:00 Sildenafil Citrate (Revatio) 20 mg BID GTB ; Start 11/08/16 at 21:00 Zinc Sulfate (Zinc Sulfate) 220 mg DAILY GTB ; Start 11/09/16 at 09:00 Vitamin B Complex/ Vitamin C (Berocca) 1 cap DAILY GTB ; Start 11/09/16 at 09:00 Insulin Aspart (Novolog Insulin Pen) NOVOLOG *MILD* ALGORI... Q4 SC Last administered on 11/09/16 10:47; Admin Dose 1 UNIT; Start 11/08/16 at 17:00 Miscellaneous Information 1 ea NOTE XX ; Start 11/08/16 at 16:00 Glucose (Glutose) 15 gm Q15M PRN PO DECREASED GLUCOSE; Start 11/08/16 at 16:00 Glucose (Glutose) 22.5 gm Q15M PRN PO DECREASED GLUCOSE; Start 11/08/16 at 16: 00 Dextrose (D50w Syringe) 25 ml Q15M PRN IV DECREASED GLUCOSE; Start 11/08/16 at 16:00 Dextrose (D50w Syringe) 50 ml Q15M PRN IV DECREASED GLUCOSE; Start 11/08/16 at 16:00 Glucagon (Glucagen) 1 mg Q15M PRN IM DECREASED GLUCOSE; Start 11/08/16 at 16:00 Glucose (Glutose) 15 gm Q15M PRN BUCCAL DECREASED GLUCOSE; Start 11/08/16 at 16 :00 Acetaminophen/ Hydrocodone Bitart ([place] (5/325)) 1 tab Q4H PRN PO SEVERE PAIN 7-10; Start 11/08/16 at 21:00 Morphine Sulfate (morphine) 2 mg Q4H PRN IV PAIN LEVEL 7-10 Last administered on 11/09/16t 14:11; Admin Dose 2 MG; Start 11/09/16 at 11:00 Collagenase (Santyl) 1 applic DAILY TOP ; Start 11/09/16 at 16:00 JOYCE SOARES MD Nov 09, 2016 17:04
[2016-11-09] MEDS: COLLAGENASE 30 GM TUBE TOP SCH (18:16)
--- NOTE | 2016-11-09 22:12 | CONS ---
DATE OF ADMISSION: 11/08/2016 DATE OF CONSULTATION: 11/08/2016 HISTORY OF PRESENT ILLNESS: The patient seen by me on 11/08/2016 at the request of Dr. Kulwinder alfonso of bleeding from the gastrostomy. The patient has a G-tube in place. The patient showed evide nce of a gastrostomy site tube feeding out coffee-ground material and also around the gastrostomy op ening. He is unable to give me any history. He has got history of chronic respiratory failure. He is status post tracheostomy and status post ventilator. MEDICATIONS: He had been on multiple medications prior to the admission history which include: 1. Albuterol. 2. Atorvastatin. 3. Coreg. 4. Catapres. 5. Procardia. 6. Tylenol. 7. Aspirin. 8. Cymbalta. 9. [place]. 10. Fluticasone. 11. Lactinex. 12. Lansoprazole 13. Lantus. 14. Vitamin C. SOCIAL HISTORY: He has no history of alcoholism. REVIEW OF SYSTEM: Essentially as mentioned above including respiratory failure, chronic renal insuf ficiency. PHYSICAL EXAMINATION: GENERAL: The patient is a 66-year-old white gentleman, who at this time is alert. He is nonverbal, but has got a tracheostomy, ventilator dependent. VITAL SIGNS: When I saw him, temperature 98.3, respirations 19, blood pressure 120/58. CARDIOVASCULAR: Normal heart sounds. RESPIRATORY: Normal breath sounds. ABDOMEN: Showed soft abdomen with a G-tube noted in place. I aspirated the stomach contents and it showed a large amount of coffee-ground material. LABORATORY WORKUP: Hemoglobin is 8.8, WBC count of 15,300, platelets 270,000. Potassium 4.4, BUN 6 9, creatinine 2.51. The chest x-ray shows evidence of pneumonia and . CLINICAL IMPRESSION: 1. Upper gastrointestinal bleeding. Rule out gastrostomy site ulcer disease, rule out gastritis, a rteriovenous malformation, etc. 2. Respiratory failure. 3. Renal failure. PLAN: At this time, recommend continuing Protonix and recommend upper endoscopy when the patient is stable. Recommend nasogastric suction and irrigation of the stomach until it is clear. Once again, doctor, thank you for this consultation. Dictated By: AIME LUX/NTS Conf#: [id number] DID#: [id number] CC: CANDIDA EMERSON MD;*[facility]*
[2016-11-09] MEDS: LORAZEPAM 2 MG INJ IV PRN (22:20)
[2016-11-09] MEDS: ATORVASTATIN 40 MG TAB GTB SCH (22:25)
[2016-11-10] VITALS (28 sets, daily range): BP systolic 93–145; BP diastolic 41–63; PULSE 65–100; RESP 15–83
[2016-11-10] MEDS: INSULIN ASPART [NOVOLOG] 3 ML PEN SC SCH ×6 (00:59→23:36)
[2016-11-10] MEDS: PANTOPRAZOLE 40 MG INJ IV SCH ×2 (06:28→17:03)
--- NOTE | 2016-11-10 07:06 | CONS ---
Date/Time of Note Date/Time of Note DATE: 11/10/16 TIME: 07:06 Assessment/Plan Assessment/Plan Chief Complaint/Hosp Course 1. SIRS likely 2/2 to gi bleed 2. hx of esrd on hd 3. chronic resp failure 4. pulm edema 5. hx of htn 6. hx of cdiff R: Monitor very closely off abx low threshold to start broad spectrum empiric abx if deteriorates serial lactic acid and procalc will follow closely with you. thanks Problems: Consultation Date/Type/Reason Admit Date/Time Nov 08, 2016 at 10:56 Initial Consult Date 11/08/16 Type of Consultation: id Referring Provider: JOYCE SOARES MD Exam/Review of Systems Vital Signs Vitals Vital Signs Date Time Temp Pulse Resp B/P Pulse Ox O2 Delivery O2 Flow Rate FiO2 11/10/16 05:14 80 15 100 30 11/10/16 04:35 98.3 116/59 11/09/16 22:00 Mechanical Ventilator Intake and Output 11/09/16 11/09/16 11/10/16 15:00 23:00 07:00 Intake Total 500 ml 0 ml 0 ml Output Total 2000 ml Balance -1500 ml 0 ml 0 ml Results Result Diagram: 11/09/16 0545 11/09/16 0545 Results 24 hrs Laboratory Tests Test 11/09/16 10:39 11/09/16 11:30 11/09/16 13:24 11/09/16 17:13 Bedside Glucose 149 140 79 Prothrombin Time 14.8 H Prothrombin Time Ratio 1.2 INR International Normalized Ratio 1.16 Activated Partial Thromboplast Time 43.8 H Test 11/09/16 19:50 11/10/16 00:58 11/10/16 06:07 Magnesium Level 2.1 Bedside Glucose 74 83 Medications Medications Current Medications Lidocaine (Lidoderm) 1 patch DAILY TD Last administered on 11/09/16 10:48; Admin Dose 1 PATCH; Start 11/08/16 at 15:30 Acetaminophen (Tylenol Liquid) 325 mg Q4H PRN GTB MILD PAIN LEVEL 1-3; Start at 15:30 Acetaminophen (Tylenol Liquid) 650 mg Q4H PRN GTB MODERATE PAIN LEVEL 4-6 Last administered on 11/09/16 05:28; Admin Dose 650 MG; Start 11/08/16 at 15:30 Ascorbic Acid (Vitamin C) 500 mg DAILY GTB ; Start 11/09/16 at 09:00 Atorvastatin Calcium (Lipitor) 40 mg QHS GTB Last administered on 11/08/16 21: 44; Admin Dose 40 MG; Start 11/08/16 at 21:00 Calcium/Vitamin D (Oyster Shell/ Vit-D (500/200)) 500 tab DAILY GTB ; Start at 09:00 Carvedilol (Coreg) 3.125 mg BID GTB Last administered on 11/08/16 21:44; Admin Dose 3.125 MG; Start 11/08/16 at 21:00 Clonidine HCl (Catapres-Tts 1 Patch) 1 patch Q7D TRANSDERM Last administered on 11/08/16 18:32; Admin Dose 1 PATCH; Start 11/08/16 at 15:30 Duloxetine HCl (Cymbalta) 30 mg DAILY GTB ; Start 11/09/16 at 09:00 Fluticasone Propionate (Flonase 0.05% Nasal) 1 spray BID NASAL Last administered on 11/08/16 21:43; Admin Dose 1 SPRAY; Start 11/08/16 at 21:00 Insulin Glargine (Lantus) 10 unit DAILY SC Last administered on 11/09/16 10:44 ; Admin Dose 10 UNIT; Start 11/09/16 at 09:00 Lactobacillus Acidoph/Bulgaricus (Floranex) 1 tab DAILY GTB ; Start 11/09/16 at 09:00 Nifedipine (Procardia) 30 mg BID GTB ; Start 11/08/16 at 21:00 Sildenafil Citrate (Revatio) 20 mg BID GTB ; Start 11/08/16 at 21:00 Zinc Sulfate (Zinc Sulfate) 220 mg DAILY GTB ; Start 11/09/16 at 09:00 Vitamin B Complex/ Vitamin C (Berocca) 1 cap DAILY GTB ; Start 11/09/16 at 09:00 Insulin Aspart (Novolog Insulin Pen) NOVOLOG *MILD* ALGORI... Q4 SC Last administered on 11/09/16 10:47; Admin Dose 1 UNIT; Start 11/08/16 at 17:00 Miscellaneous Information 1 ea NOTE XX ; Start 11/08/16 at 16:00 Glucose (Glutose) 15 gm Q15M PRN PO DECREASED GLUCOSE; Start 11/08/16 at 16:00 Glucose (Glutose) 22.5 gm Q15M PRN PO DECREASED GLUCOSE; Start 11/08/16 at 16: 00 Dextrose (D50w Syringe) 25 ml Q15M PRN IV DECREASED GLUCOSE; Start 11/08/16 at 16:00 Dextrose (D50w Syringe) 50 ml Q15M PRN IV DECREASED GLUCOSE; Start 11/08/16 at 16:00 Glucagon (Glucagen) 1 mg Q15M PRN IM DECREASED GLUCOSE; Start 11/08/16 at 16:00 Glucose (Glutose) 15 gm Q15M PRN BUCCAL DECREASED GLUCOSE; Start 11/08/16 at 16 :00 Acetaminophen/ Hydrocodone Bitart ([place] (5/325)) 1 tab Q4H PRN PO SEVERE PAIN 7-10; Start 11/08/16 at 21:00 Morphine Sulfate (morphine) 2 mg Q4H PRN IV PAIN LEVEL 7-10 Last administered on 11/09/16 18:16; Admin Dose 2 MG; Start 11/09/16 at 11:00 Collagenase (Santyl) 1 applic DAILY TOP Last administered on 11/09/16 18:16; Admin Dose 1 APPLIC; Start 11/09/16 at 16:00 Lorazepam (Ativan) 1 mg Q6H PRN IV AGITATION/ANXIETY Last administered on 22:20; Admin Dose 1 MG; Start 11/09/16 at 20:30 Pantoprazole (Protonix Iv) 40 mg BID@18 IV Last administered on 11/10/16 06 :28; Admin Dose 40 MG; Start 11/10/16 at 06:00 JOYCE SOARES MD Nov 10, 2016 07:06
[2016-11-10 07:40] LABS: BASOPHIL # 0.1 10^3/ul (0.0-0.1); BASOPHILS % 0.8 % (0.0-2.0); EOSINOPHILS # 0.3 10^3/ul (0.0-0.5); EOSINOPHILS % 3.2 % (0.0-7.0); HEMATOCRIT 28.8 % (42.0-52.0); HEMOGLOBIN 8.9 g/dl (14.0-18.0); LYMPHOCYTES % 11.2 % (15.0-51.0); MEAN CORPUSCULAR HEMOGLOBIN 32.5 pg (29.0-33.0); MEAN CORPUSCULAR HGB CONC 30.9 g/dl (32.0-37.0); MEAN CORPUSCULAR VOLUME 105.1 fl (82.0-101.0); MEAN PLATELET VOLUME 9.5 fl (7.4-10.4); MONOCYTE # 1.1 10^3/ul (0.3-0.9); MONOCYTES % 12.5 % (0.0-11.0); NEUTROPHIL # 6.3 10^3/ul (1.6-7.5); NEUTROPHILS % 71.7 % (39.0-77.0); PLATELET COUNT 236 10^3/UL (140-415); RED BLOOD COUNT 2.74 10^6/ul (4.70-6.10); RED CELL DISTRIBUTION WIDTH 17.5 % (11.5-14.5); WHITE BLOOD COUNT 8.8 10^3/ul (4.8-10.8)
[2016-11-10 07:41] LABS: ADD SCAN DIFF NO
[2016-11-10 07:50] LABS: POTASSIUM 4.3 mmol/L (3.5-5.1)
[2016-11-10 07:53] LABS: CREATININE 2.29 mg/dl (0.61-1.24)
[2016-11-10 07:54] LABS: MAGNESIUM 2.1 mg/dl (1.7-2.5); PHOSPHORUS 1.7 mg/dl (2.5-4.9)
[2016-11-10] MEDS: morphine 2 MG INJ IV PRN ×3 (08:41→17:30)
[2016-11-10] MEDS: ASCORBIC ACID 500 MG TAB GTB SCH (08:43)
[2016-11-10] MEDS: ZINC SULFATE 220 MG CAP GTB SCH (08:43)
[2016-11-10] MEDS: LACTOBACILLUS CHEW TAB GTB SCH (08:43)
[2016-11-10] MEDS: NIFEdipine 10 MG CAP GTB SCH ×2 (08:44→20:06)
[2016-11-10] MEDS: SILDENAFIL 20 MG TAB GTB SCH ×2 (08:44→20:06)
[2016-11-10] MEDS: VITAMIN B COMPLEX/VIT C CAP GTB SCH (08:44)
[2016-11-10] MEDS: DULOXETINE 30 MG CAP DR GTB SCH (08:44)
[2016-11-10] MEDS: CALCIUM/VITAMIN D (500/200) TAB GTB SCH (08:44)
[2016-11-10] MEDS: FLUTICASONE 0.05% 16 GM NAS SPRAY NASAL SCH ×2 (08:45→20:05)
[2016-11-10] MEDS: COLLAGENASE 30 GM TUBE TOP SCH (08:45)
[2016-11-10] MEDS: LIDOCAINE 5% PATCH TD SCH (08:45)
[2016-11-10] MEDS: INSULIN GLARGINE [LANtus] 3 ML PEN SC SCH (08:47)
[2016-11-10] MEDS: LORAZEPAM 2 MG INJ IV PRN ×2 (08:51→17:03)
--- NOTE | 2016-11-10 09:50 | PN ---
DATE: SUBJECTIVE: The patient is stable, no acute events overnight. The patient had hemodialysis yesterd ay, tolerated it well. OBJECTIVE: VITAL SIGNS: Blood pressure is 129/60, respirations 19, pulse 70, temperature 98.3. HEENT: Head is normocephalic. NECK: Supple. HEART: Regular rate. LUNGS: Showed diminished breath sounds at the base. ABDOMEN: Soft, nontender to palpation. No rebound or guarding. EXTREMITIES: Negative for clubbing, cyanosis. No edema. DERMATOLOGIC: No rashes. MUSCULOSKELETAL: No joint effusions. NEUROLOGIC: No change in exam. MEDICATIONS: Have been reviewed. LABORATORY DATA: Shows sodium 139, potassium ____, chloride 103, BUN 52, creatinine 2.29 phosphorus 1.7. White count 8.8, hemoglobin 8.9, hematocrit 28.8, platelet count is 236. ASSESSMENT AND PLAN: 1. End-stage renal disease. The patient had hemodialysis yesterday, tolerated it well. Anticipate next dialysis on Saturday. 2. Anemia of chronic disease with possible gastrointestinal bleed. The patient is being seen by Dr Eduardo Hernandez, status post EGD. Results are not available. At this point will continue to monitor hemog lobin and hematocrit levels. Continue Epogen with dialysis. 3. Mineral bone disorder. The patient is hypophosphatemic. Will replete with Neutra-Phos, ____ ph os binders. 4. Volume overload, improving. Continue ultrafiltration dialysis. 5. Sepsis secondary to pneumonia. Continue current antibiotic regimen. 6. Ventilator-dependent respiratory failure. Vent settings have been reviewed. ABGs have been rev iewed. Continue to monitor. 7. History of dysphagia, status post percutaneous endoscopic gastrostomy. Continue tube feeding. 8. Coronary artery disease, continue current medical management. 9. Diabetes, continue Accu-Cheks and sliding scale. 10. Depression and anxiety disorder. Continue current treatment. 11. Hypertension. The patient is currently normotensive. Continue to monitor. 12. History of congestive heart failure. Continue medical management. Dictated By: SARAHI RINALDI/NTS Conf#: [id number] DID#: [id number]
--- NOTE | 2016-11-10 09:56 | PN ---
DATE: 11/10/2016 This is a followup for Dr. Hernandez. This 66-year-old patient who is on a respirator has been admitted for GI bleed and Dr. Hernandez's end oscopy note indicates severe erosive esophagitis. He is being treated aggressively with PPI and taya ent is not complaining of any abdominal pain or vomiting, but he is complaining of right leg pain wh ich is in a cast. Otherwise, his vital signs are stable. At present, he is on IV Protonix, which w ill be continued and follow the H and H. His other diagnoses include: 1. Congestive heart failure. 2. Diabetes. 3. Above-knee amputation of the left leg. 4. On hemodialysis for end-stage renal disease. Dictated By: HANS HANKINS Conf#: [id number] DID#: [id number]
--- NOTE | 2016-11-10 10:35 | PN ---
Date/Time of Note Date/Time of Note DATE: 11/10/16 TIME: 10:34 Assessment/Plan VTE Prophylaxis VTE Prophylaxis Intervention: SCD's Lines/Catheters [facility]ter [facility] (from [facility] Peripheral IV Urinary Cath still in place: No Assessment/Plan Assessment/Plan Paroxysmal atrial tachycardia Possible GI bleed Respiratory failure status post tracheostomy Diastolic congestive heart failure End-stage renal disease on hemodialysis CAD with history of PCI Diabetes Peripheral arterial disease with history of amputation Pulmonary hypertension -Patient with nsr Patient with known history of atrial tachycardia. He has not been receiving his medication secondary to his GI bleed issues. Continue telemetry monitoring. Check magnesium level. Restart beta-shivani when able to tolerate Subjective 24 Hr Interval Summary Free Text/Dictation The patinet with no change Exam/Review of Systems Vital Signs Vitals Vital Signs Date Time Temp Pulse Resp B/P Pulse Ox O2 Delivery O2 Flow Rate FiO2 11/10/16 09:45 89 19 100 30 11/10/16 07:57 98.3 129/60 11/09/16 22:00 Mechanical Ventilator Intake and Output 11/09/16 11/09/16 11/10/16 15:00 23:00 07:00 Intake Total 500 ml 0 ml 0 ml Output Total 2000 ml Balance -1500 ml 0 ml 0 ml Results Result Diagram: 11/10/16 0600 11/10/16 0600 Results 24 hrs Laboratory Tests Test 11/09/16 10:39 11/09/16 11:30 11/09/16 13:24 11/09/16 17:13 Bedside Glucose 149 140 79 Prothrombin Time 14.8 H Prothrombin Time Ratio 1.2 INR International Normalized Ratio 1.16 Activated Partial Thromboplast Time 43.8 H Test 11/09/16 19:50 11/10/16 00:58 11/10/16 06:00 11/10/16 06:07 Magnesium Level 2.1 2.1 Bedside Glucose 74 83 White Blood Count 8.8 # Red Blood Count 2.74 L Hemoglobin 8.9 L Hematocrit 28.8 L Mean Corpuscular Volume 105.1 H Mean Corpuscular Hemoglobin 32.5 Mean Corpuscular Hemoglobin Concent 30.9 L Red Cell Distribution Width 17.5 H Platelet Count 236 Mean Platelet Volume 9.5 Neutrophils % 71.7 Lymphocytes % 11.2 L Monocytes % 12.5 H Eosinophils % 3.2 Basophils % 0.8 Nucleated Red Blood Cells % 0.0 Neutrophils # 6.3 Lymphocytes # 1.0 Monocytes # 1.1 H Eosinophils # 0.3 Basophils # 0.1 Nucleated Red Blood Cells # 0.0 Sodium Level 139 Potassium Level 4.3 Chloride Level 103 Carbon Dioxide Level 27 Anion Gap 13 Blood Urea Nitrogen 52 H Creatinine 2.29 H Glucose Level 68 #L Calcium Level 8.0 L Phosphorus Level 1.7 L Test 11/10/16 08:41 Bedside Glucose 111 Medications Medications Current Medications Lidocaine (Lidoderm) 1 patch DAILY TD Last administered on 11/10/16 08:45; Admin Dose 1 PATCH; Start 11/08/16 at 15:30 Acetaminophen (Tylenol Liquid) 325 mg Q4H PRN GTB MILD PAIN LEVEL 1-3; Start at 15:30 Acetaminophen (Tylenol Liquid) 650 mg Q4H PRN GTB MODERATE PAIN LEVEL 4-6 Last administered on 11/09/16 05:28; Admin Dose 650 MG; Start 11/08/16 at 15:30 Ascorbic Acid (Vitamin C) 500 mg DAILY GTB Last administered on 11/10/16 08:43 ; Admin Dose 500 MG; Start 11/09/16 at 09:00 Atorvastatin Calcium (Lipitor) 40 mg QHS GTB Last administered on 11/08/16 21: 44; Admin Dose 40 MG; Start 11/08/16 at 21:00 Calcium/Vitamin D (Oyster Shell/ Vit-D (500/200)) 500 tab DAILY GTB ; Start at 09:00 Carvedilol (Coreg) 3.125 mg BID GTB Last administered on 11/10/16 08:44; Admin Dose 3.125 MG; Start 11/08/16 at 21:00 Clonidine HCl (Catapres-Tts 1 Patch) 1 patch Q7D TRANSDERM Last administered on 11/08/16 18:32; Admin Dose 1 PATCH; Start 11/08/16 at 15:30 Duloxetine HCl (Cymbalta) 30 mg DAILY GTB Last administered on 11/10/16 08:44 ; Admin Dose 30 MG; Start 11/09/16 at 09:00 Fluticasone Propionate (Flonase 0.05% Nasal) 1 spray BID NASAL Last administered on 11/10/16 08:45; Admin Dose 1 SPRAY; Start 11/08/16 at 21:00 Insulin Glargine (Lantus) 10 unit DAILY SC Last administered on 11/10/16 08:47 ; Admin Dose 10 UNIT; Start 11/09/16 at 09:00 Lactobacillus Acidoph/Bulgaricus (Floranex) 1 tab DAILY GTB Last administered on 11/10/16 08:43; Admin Dose 1 TAB; Start 11/09/16 at 09:00 Nifedipine (Procardia) 30 mg BID GTB Last administered on 11/10/16 08:44; Admin Dose 30 MG; Start 11/08/16 at 21:00 Sildenafil Citrate (Revatio) 20 mg BID GTB ; Start 11/08/16 at 21:00 Zinc Sulfate (Zinc Sulfate) 220 mg DAILY GTB Last administered on 11/10/16 08: 43; Admin Dose 220 MG; Start 11/09/16 at 09:00 Vitamin B Complex/ Vitamin C (Berocca) 1 cap DAILY GTB Last administered on 08:44; Admin Dose 1 CAP; Start 11/09/16 at 09:00 Insulin Aspart (Novolog Insulin Pen) NOVOLOG *MILD* ALGORI... Q4 SC Last administered on 11/09/16 10:47; Admin Dose 1 UNIT; Start 11/08/16 at 17:00 Miscellaneous Information 1 ea NOTE XX ; Start 11/08/16 at 16:00 Glucose (Glutose) 15 gm Q15M PRN PO DECREASED GLUCOSE; Start 11/08/16 at 16:00 Glucose (Glutose) 22.5 gm Q15M PRN PO DECREASED GLUCOSE; Start 11/08/16 at 16: 00 Dextrose (D50w Syringe) 25 ml Q15M PRN IV DECREASED GLUCOSE; Start 11/08/16 at 16:00 Dextrose (D50w Syringe) 50 ml Q15M PRN IV DECREASED GLUCOSE; Start 11/08/16 at 16:00 Glucagon (Glucagen) 1 mg Q15M PRN IM DECREASED GLUCOSE; Start 11/08/16 at 16:00 Glucose (Glutose) 15 gm Q15M PRN BUCCAL DECREASED GLUCOSE; Start 11/08/16 at 16 :00 Acetaminophen/ Hydrocodone Bitart ([place] (5/325)) 1 tab Q4H PRN PO SEVERE PAIN 7-10; Start 11/08/16 at 21:00 Morphine Sulfate (morphine) 2 mg Q4H PRN IV PAIN LEVEL 7-10 Last administered on 11/10/16 08:41; Admin Dose 2 MG; Start 11/09/16 at 11:00 Collagenase (Santyl) 1 applic DAILY TOP Last administered on 11/10/16 08:45; Admin Dose 1 APPLIC; Start 11/09/16 at 16:00 Lorazepam (Ativan) 1 mg Q6H PRN IV AGITATION/ANXIETY Last administered on 08:51; Admin Dose 1 MG; Start 11/09/16 at 20:30 Pantoprazole (Protonix Iv) 40 mg BID@06,18 IV Last administered on 11/10/16 06 :28; Admin Dose 40 MG; Start 11/10/16 at 06:00 Sodium Phosphate (Neutra-Phos) 250 mg BID GTB ; Start 11/10/16 at 09:00 MARIANA [place] MD Nov 10, 2016 10:35
--- NOTE | 2016-11-10 10:36 | GILP ---
DATE OF PROCEDURE: NAME OF PROCEDURE: Esophagogastroduodenoscopy. SURGEON: Timmy Hernandez MD PREOPERATIVE DIAGNOSIS: A patient presenting with history of severe anemia and vomiting coffee-grou nd material and gastrostomy tube draining coffee-ground material. Rule out gastrostomy site ulcer d isease, esophagitis, peptic ulcer disease, etc. POSTOPERATIVE DIAGNOSES: 1. Severe erosive esophagitis of the entire esophagus noted. 2. Moderate degree of gastritis. 3. Erosion noted at the gastrostomy site. DESCRIPTION OF PROCEDURE: After the informed written consent was obtained, the patient was asked to lie on the left lateral side. Intravenous anesthesia was given by anesthesiologist, Dr. Santos. W hen the patient was somnolent, the Olympus video upper endoscope was introduced into the oropharynx, then into the esophagus. The entire esophagus showed evidence of multiple erosions and ecchymosis of the mucosa. This is the source of the bleeding. Scope at this time was advanced into the stomac h. Entire stomach showed evidence of a mild to moderate degree of erythema in a patchy distribution . Gastrostomy site showed small erosion. Scope at this time was advanced into the duodenum. Duode num appeared normal. Biopsy was done from the antrum, the lesser curvature and the fundus to rule o ut H. pylori infection. Two biopsies were obtained from the esophagus to rule out [place], CMV or h erpes. Endoscope at this time was withdrawn and the procedure was terminated. PLAN: Recommend Protonix 40 mg IV q.12h. Dictated By: TIMMY HERNANDEZ MD [place]/NTS Conf#: [id number] DID#: [id number] CC: CANDIDA EMERSON MD; TIMMY HERNANDEZ MD;*EndCC*
[2016-11-10] MEDS: HYDROCODONE/APAP (5/325) TAB PO PRN ×2 (11:02→20:05)
--- NOTE | 2016-11-10 11:51 | PN ---
Date/Time of Note Date/Time of Note DATE: 11/10/16 TIME: 11:46 Assessment/Plan VTE Prophylaxis VTE Prophylaxis Intervention: other Lines/Catheters [facility]ter Type ([facility]): Peripheral IV Urinary Cath still in place: No Assessment/Plan Assessment/Plan - Possible GI bleed, patient is followed by Dr. Hernandez in gastroenterology consultation, pending EGD. - Anemia possibly of GI bleed patient has known anemia of chronic disease, on Epogen, continue to monitor hemoglobin and hematocrit, transfuse as needed. - Systemic inflammatory response syndrome with leukocytosis, patient is followed by Dr. Benjamin deluna in infection disease consultation. - End-stage renal disease, hemodialysis dependent. Continue hemodialysis per nephrology. - Chronic respiratory failure with tracheostomy. Dr. Sahu is following in pulmonology consultation. - Coronary artery disease with history of PCI. - Diastolic congestive heart failure -Pulmonary hypertension - Peripheral vascular disease, status post left BKA. - Diabetes mellitus type 2, continue NovoLog per sliding scale. -Sacral decub present on admission - MRSA nares - Bacroban - contact isolation DW Dr Jensen Exam/Review of Systems Vital Signs Vitals Vital Signs Date Time Temp Pulse Resp B/P Pulse Ox O2 Delivery O2 Flow Rate FiO2 11/10/16 09:45 89 19 100 30 11/10/16 07:57 98.3 129/60 11/09/16 22:00 Mechanical Ventilator Intake and Output 11/09/16 11/09/16 11/10/16 15:00 23:00 07:00 Intake Total 500 ml 0 ml 0 ml Output Total 2000 ml Balance -1500 ml 0 ml 0 ml Exam Constitutional: alert Psych: confusion Eyes: PERRL, nl sclera ENMT: nl external ears & nose Respiratory: diminished breath sounds Cardiovascular: nl pulses Gastrointestinal: non-tender, other, soft Musculoskeletal: other Extremities: normal pulses Neurological: confused, lethargic Skin: other Lymph: nontender Results Result Diagram: 11/10/16 0600 11/10/16 0600 Results 24 hrs Laboratory Tests Test 11/09/16 13:24 11/09/16 17:13 11/09/16 19:50 11/10/16 00:58 Bedside Glucose 140 79 74 Magnesium Level 2.1 Test 11/10/16 06:00 11/10/16 06:07 11/10/16 08:41 White Blood Count 8.8 # Red Blood Count 2.74 L Hemoglobin 8.9 L Hematocrit 28.8 L Mean Corpuscular Volume 105.1 H Mean Corpuscular Hemoglobin 32.5 Mean Corpuscular Hemoglobin Concent 30.9 L Red Cell Distribution Width 17.5 H Platelet Count 236 Mean Platelet Volume 9.5 Neutrophils % 71.7 Lymphocytes % 11.2 L Monocytes % 12.5 H Eosinophils % 3.2 Basophils % 0.8 Nucleated Red Blood Cells % 0.0 Neutrophils # 6.3 Lymphocytes # 1.0 Monocytes # 1.1 H Eosinophils # 0.3 Basophils # 0.1 Nucleated Red Blood Cells # 0.0 Sodium Level 139 Potassium Level 4.3 Chloride Level 103 Carbon Dioxide Level 27 Anion Gap 13 Blood Urea Nitrogen 52 H Creatinine 2.29 H Glucose Level 68 #L Calcium Level 8.0 L Phosphorus Level 1.7 L Magnesium Level 2.1 Bedside Glucose 83 111 Medications Medications Current Medications Lidocaine (Lidoderm) 1 patch DAILY TD Last administered on 11/10/16 08:45; Admin Dose 1 PATCH; Start 11/08/16 at 15:30 Acetaminophen (Tylenol Liquid) 325 mg Q4H PRN GTB MILD PAIN LEVEL 1-3; Start at 15:30 Acetaminophen (Tylenol Liquid) 650 mg Q4H PRN GTB MODERATE PAIN LEVEL 4-6 Last administered on 11/09/16 05:28; Admin Dose 650 MG; Start 11/08/16 at 15:30 Ascorbic Acid (Vitamin C) 500 mg DAILY GTB Last administered on 11/10/16 08:43 ; Admin Dose 500 MG; Start 11/09/16 at 09:00 Atorvastatin Calcium (Lipitor) 40 mg QHS GTB Last administered on 11/08/16 21: 44; Admin Dose 40 MG; Start 11/08/16 at 21:00 Calcium/Vitamin D (Oyster Shell/ Vit-D (500/200)) 500 tab DAILY GTB ; Start at 09:00 Carvedilol (Coreg) 3.125 mg BID GTB Last administered on 11/10/16 08:44; Admin Dose 3.125 MG; Start 11/08/16 at 21:00 Clonidine HCl (Catapres-Tts 1 Patch) 1 patch Q7D TRANSDERM Last administered on 11/08/16 18:32; Admin Dose 1 PATCH; Start 11/08/16 at 15:30 Duloxetine HCl (Cymbalta) 30 mg DAILY GTB Last administered on 11/10/16 08:44 ; Admin Dose 30 MG; Start 11/09/16 at 09:00 Fluticasone Propionate (Flonase 0.05% Nasal) 1 spray BID NASAL Last administered on 11/10/16 08:45; Admin Dose 1 SPRAY; Start 11/08/16 at 21:00 Insulin Glargine (Lantus) 10 unit DAILY SC Last administered on 11/10/16 08:47 ; Admin Dose 10 UNIT; Start 11/09/16 at 09:00 Lactobacillus Acidoph/Bulgaricus (Floranex) 1 tab DAILY GTB Last administered on 11/10/16 08:43; Admin Dose 1 TAB; Start 11/09/16 at 09:00 Nifedipine (Procardia) 30 mg BID GTB Last administered on 11/10/16 08:44; Admin Dose 30 MG; Start 11/08/16 at 21:00 Sildenafil Citrate (Revatio) 20 mg BID GTB ; Start 11/08/16 at 21:00 Zinc Sulfate (Zinc Sulfate) 220 mg DAILY GTB Last administered on 11/10/16 08: 43; Admin Dose 220 MG; Start 11/09/16 at 09:00 Vitamin B Complex/ Vitamin C (Berocca) 1 cap DAILY GTB Last administered on 08:44; Admin Dose 1 CAP; Start 11/09/16 at 09:00 Insulin Aspart (Novolog Insulin Pen) NOVOLOG *MILD* ALGORI... Q4 SC Last administered on 11/09/16 10:47; Admin Dose 1 UNIT; Start 11/08/16 at 17:00 Miscellaneous Information 1 ea NOTE XX ; Start 11/08/16 at 16:00 Glucose (Glutose) 15 gm Q15M PRN PO DECREASED GLUCOSE; Start 11/08/16 at 16:00 Glucose (Glutose) 22.5 gm Q15M PRN PO DECREASED GLUCOSE; Start 11/08/16 at 16: 00 Dextrose (D50w Syringe) 25 ml Q15M PRN IV DECREASED GLUCOSE; Start 11/08/16 at 16:00 Dextrose (D50w Syringe) 50 ml Q15M PRN IV DECREASED GLUCOSE; Start 11/08/16 at 16:00 Glucagon (Glucagen) 1 mg Q15M PRN IM DECREASED GLUCOSE; Start 11/08/16 at 16:00 Glucose (Glutose) 15 gm Q15M PRN BUCCAL DECREASED GLUCOSE; Start 11/08/16 at 16 :00 Acetaminophen/ Hydrocodone Bitart ([place] (5/325)) 1 tab Q4H PRN PO SEVERE PAIN 7-10 Last administered on 11/10/16 11:02; Admin Dose 1 TAB; Start 11/08/16 at 21:00 Morphine Sulfate (morphine) 2 mg Q4H PRN IV PAIN LEVEL 7-10 Last administered on 11/10/16 08:41; Admin Dose 2 MG; Start 11/09/16 at 11:00 Collagenase (Santyl) 1 applic DAILY TOP Last administered on 11/10/16 08:45; Admin Dose 1 APPLIC; Start 11/09/16 at 16:00 Lorazepam (Ativan) 1 mg Q6H PRN IV AGITATION/ANXIETY Last administered on 08:51; Admin Dose 1 MG; Start 11/09/16 at 20:30 Pantoprazole (Protonix Iv) 40 mg BID@06,18 IV Last administered on 11/10/16 06 :28; Admin Dose 40 MG; Start 11/10/16 at 06:00 Sodium Phosphate (Neutra-Phos) 250 mg BID GTB ; Start 11/10/16 at 09:00 Procedures Procedures MRSA SCREEN Final MRSA SCREEN Methicillin Resistant Staph aureus (MRSA) isolated (Ref Range Neg) . [employer] GRACIE KATHLEEN Nov 10, 2016 11:51
[2016-11-10] MEDS: MUPIROCIN 2% 22 GM OINT TOP SCH ×2 (12:30→20:06)
[2016-11-10] MEDS: NEUTRA-PHOS 250 MG PACKET GTB SCH ×2 (12:33→20:05)
--- NOTE | 2016-11-10 13:33 | RADRPT ---
Vent Rate: 82 bpm RR Interval: 0 msec VA Interval: 144 msec QRS Duration: 134 msec QT Interval: 436 msec QTC Interval: 509 msec P-R-T [place]: 46 - -72 - 30 degrees Sinus rhythm with occasional premature ventricular complexes Left axis deviation Right bundle branch block Possible Lateral infarct , age undetermined Abnormal ECG Left anterior hemiblock Bifascicular block: RBBB \T\ LAFB [REASON: RBBB w/ left axis deviation] Low voltage in frontal leads [REASON: 5 Frontal leads <.5 mv] No previous tracing available for comparison Electronically Signed By: Dameon Mcguire [id number]
--- NOTE | 2016-11-10 15:56 | CONS ---
Date/Time of Note Date/Time of Note DATE: 11/10/16 TIME: 15:54 Assessment/Plan Assessment/Plan Additional Assessment/Plan Ventilator settings are AC of 16, tidal volume 550, PEEP of 5, 30% FiO2. Assessment and recommendations; 1. Patient admitted for UTI with significant overall clinical improvement. 2. 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 3. Ulcerative some element of aspiration pneumonia. Continue current supportive care. Consultation Date/Type/Reason Admit Date/Time Nov 08, 2016 at 10:56 Initial Consult Date 11/08/16 Type of Consultation: Pulmonary Referring Provider: JOYCE SOARES MD 24 HR Interval Summary Free Text/Dictation Patient condition remains unchanged. Remains stable. Remains unresponsive to any commands due to underlying anoxic brain injury. General exam; elderly male, on ventilator via tracheostomy currently in no distress. Exam/Review of Systems Vital Signs Vitals Vital Signs Date Time Temp Pulse Resp B/P Pulse Ox O2 Delivery O2 Flow Rate FiO2 11/10/16 14:00 98.0 86 18 106/49 100 Mechanical Ventilator 11/10/16 13:10 30 Intake and Output 11/09/16 11/09/16 11/10/16 15:00 23:00 07:00 Intake Total 500 ml 0 ml 0 ml Output Total 2000 ml Balance -1500 ml 0 ml 0 ml Exam HEENT examination; supple neck, no JVD. No lymphadenopathy. Midline trachea. Tracheostomy in place. Insertion site is clean. Chest examination; clear to auscultation bilaterally. S1-S2 audible, no murmurs. Regular rhythm. Abdomen examination; soft, G-tube in place bowel sounds audible. No organomegaly. Extremity exam; patient has a well-healed left below-knee hypertension. No peripheral edema. 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 Results Result Diagram: 11/10/16 0600 11/10/16 0600 Results 24 hrs Laboratory Tests Test 11/09/16 17:13 11/09/16 19:50 11/10/16 00:58 11/10/16 06:00 Bedside Glucose 79 74 Magnesium Level 2.1 2.1 White Blood Count 8.8 # Red Blood Count 2.74 L Hemoglobin 8.9 L Hematocrit 28.8 L Mean Corpuscular Volume 105.1 H Mean Corpuscular Hemoglobin 32.5 Mean Corpuscular Hemoglobin Concent 30.9 L Red Cell Distribution Width 17.5 H Platelet Count 236 Mean Platelet Volume 9.5 Neutrophils % 71.7 Lymphocytes % 11.2 L Monocytes % 12.5 H Eosinophils % 3.2 Basophils % 0.8 Nucleated Red Blood Cells % 0.0 Neutrophils # 6.3 Lymphocytes # 1.0 Monocytes # 1.1 H Eosinophils # 0.3 Basophils # 0.1 Nucleated Red Blood Cells # 0.0 Sodium Level 139 Potassium Level 4.3 Chloride Level 103 Carbon Dioxide Level 27 Anion Gap 13 Blood Urea Nitrogen 52 H Creatinine 2.29 H Glucose Level 68 #L Calcium Level 8.0 L Phosphorus Level 1.7 L Test 11/10/16 06:07 11/10/16 08:41 11/10/16 12:35 Bedside Glucose 83 111 100 Medications Medications Current Medications Lidocaine (Lidoderm) 1 patch DAILY TD Last administered on 11/10/16 08:45; Admin Dose 1 PATCH; Start 11/08/16 at 15:30 Acetaminophen (Tylenol Liquid) 325 mg Q4H PRN GTB MILD PAIN LEVEL 1-3; Start at 15:30 Acetaminophen (Tylenol Liquid) 650 mg Q4H PRN GTB MODERATE PAIN LEVEL 4-6 Last administered on 11/09/16 05:28; Admin Dose 650 MG; Start 11/08/16 at 15:30 Ascorbic Acid (Vitamin C) 500 mg DAILY GTB Last administered on 11/10/16 08:43 ; Admin Dose 500 MG; Start 11/09/16 at 09:00 Atorvastatin Calcium (Lipitor) 40 mg QHS GTB Last administered on 11/08/16 21: 44; Admin Dose 40 MG; Start 11/08/16 at 21:00 Calcium/Vitamin D (Oyster Shell/ Vit-D (500/200)) 500 tab DAILY GTB ; Start at 09:00 Carvedilol (Coreg) 3.125 mg BID GTB Last administered on 11/10/16 08:44; Admin Dose 3.125 MG; Start 11/08/16 at 21:00 Clonidine HCl (Catapres-Tts 1 Patch) 1 patch Q7D TRANSDERM Last administered on 11/08/16 18:32; Admin Dose 1 PATCH; Start 11/08/16 at 15:30 Duloxetine HCl (Cymbalta) 30 mg DAILY GTB Last administered on 11/10/16 08:44 ; Admin Dose 30 MG; Start 11/09/16 at 09:00 Fluticasone Propionate (Flonase 0.05% Nasal) 1 spray BID NASAL Last administered on 11/10/16 08:45; Admin Dose 1 SPRAY; Start 11/08/16 at 21:00 Insulin Glargine (Lantus) 10 unit DAILY SC Last administered on 11/10/16 08:47 ; Admin Dose 10 UNIT; Start 11/09/16 at 09:00 Lactobacillus Acidoph/Bulgaricus (Floranex) 1 tab DAILY GTB Last administered on 11/10/16 08:43; Admin Dose 1 TAB; Start 11/09/16 at 09:00 Nifedipine (Procardia) 30 mg BID GTB Last administered on 11/10/16 08:44; Admin Dose 30 MG; Start 11/08/16 at 21:00 Sildenafil Citrate (Revatio) 20 mg BID GTB ; Start 11/08/16 at 21:00 Zinc Sulfate (Zinc Sulfate) 220 mg DAILY GTB Last administered on 11/10/16 08: 43; Admin Dose 220 MG; Start 11/09/16 at 09:00 Vitamin B Complex/ Vitamin C (Berocca) 1 cap DAILY GTB Last administered on 08:44; Admin Dose 1 CAP; Start 11/09/16 at 09:00 Insulin Aspart (Novolog Insulin Pen) NOVOLOG *MILD* ALGORI... Q4 SC Last administered on 11/09/16 10:47; Admin Dose 1 UNIT; Start 11/08/16 at 17:00 Miscellaneous Information 1 ea NOTE XX ; Start 11/08/16 at 16:00 Glucose (Glutose) 15 gm Q15M PRN PO DECREASED GLUCOSE; Start 11/08/16 at 16:00 Glucose (Glutose) 22.5 gm Q15M PRN PO DECREASED GLUCOSE; Start 11/08/16 at 16: 00 Dextrose (D50w Syringe) 25 ml Q15M PRN IV DECREASED GLUCOSE; Start 11/08/16 at 16:00 Dextrose (D50w Syringe) 50 ml Q15M PRN IV DECREASED GLUCOSE; Start 11/08/16 at 16:00 Glucagon (Glucagen) 1 mg Q15M PRN IM DECREASED GLUCOSE; Start 11/08/16 at 16:00 Glucose (Glutose) 15 gm Q15M PRN BUCCAL DECREASED GLUCOSE; Start 11/08/16 at 16 :00 Acetaminophen/ Hydrocodone Bitart ([place] (5/325)) 1 tab Q4H PRN PO SEVERE PAIN 7-10 Last administered on 11/10/16 11:02; Admin Dose 1 TAB; Start 11/08/16 at 21:00 Morphine Sulfate (morphine) 2 mg Q4H PRN IV PAIN LEVEL 7-10 Last administered on 11/10/16 12:33; Admin Dose 2 MG; Start 11/09/16 at 11:00 Collagenase (Santyl) 1 applic DAILY TOP Last administered on 11/10/16 08:45; Admin Dose 1 APPLIC; Start 11/09/16 at 16:00 Lorazepam (Ativan) 1 mg Q6H PRN IV AGITATION/ANXIETY Last administered on 08:51; Admin Dose 1 MG; Start 11/09/16 at 20:30 Pantoprazole (Protonix Iv) 40 mg BID@06,18 IV Last administered on 11/10/16 06 :28; Admin Dose 40 MG; Start 11/10/16 at 06:00 Sodium Phosphate (Neutra-Phos) 250 mg BID GTB Last administered on 11/10/16 12 :33; Admin Dose 250 MG; Start 11/10/16 at 09:00 Mupirocin (Bactroban) 1 applic BID TOP ; Start 11/10/16 at 12:30 ELVI BLANK 25, 2017 15:56
[2016-11-10] MEDS: ATORVASTATIN 40 MG TAB GTB SCH (20:05)
[2016-11-10 21:02] LABS: HEMATOCRIT 26.9 % (42.0-52.0); HEMOGLOBIN 8.6 g/dl (14.0-18.0)
[2016-11-11] VITALS (27 sets, daily range): BP systolic 96–143; BP diastolic 45–63; PULSE 70–94; RESP 14–32
[2016-11-11] MEDS: INSULIN ASPART [NOVOLOG] 3 ML PEN SC SCH ×4 (05:00→23:49)
[2016-11-11] MEDS: PANTOPRAZOLE 40 MG INJ IV SCH ×2 (05:00→18:27)
[2016-11-11 06:17] LABS: ADD SCAN DIFF NO
[2016-11-11 06:24] LABS: BASOPHIL # 0.1 10^3/ul (0.0-0.1); BASOPHILS % 0.8 % (0.0-2.0); EOSINOPHILS # 0.3 10^3/ul (0.0-0.5); EOSINOPHILS % 3.7 % (0.0-7.0); HEMATOCRIT 31.4 % (42.0-52.0); LYMPHOCYTES # 0.8 10^3/ul (0.8-2.9); LYMPHOCYTES % 10.7 % (15.0-51.0); MEAN CORPUSCULAR HEMOGLOBIN 31.2 pg (29.0-33.0); MEAN CORPUSCULAR HGB CONC 31.8 g/dl (32.0-37.0); MEAN CORPUSCULAR VOLUME 97.8 fl (82.0-101.0); MONOCYTE # 1.1 10^3/ul (0.3-0.9); MONOCYTES % 13.8 % (0.0-11.0); NEUTROPHIL # 5.6 10^3/ul (1.6-7.5); NEUTROPHILS % 70.6 % (39.0-77.0); PLATELET COUNT 192 10^3/UL (140-415); RED BLOOD COUNT 3.21 10^6/ul (4.70-6.10); RED CELL DISTRIBUTION WIDTH 20.6 % (11.5-14.5); WHITE BLOOD COUNT 7.9 10^3/ul (4.8-10.8)
[2016-11-11 06:34] LABS: POTASSIUM 4.4 mmol/L (3.5-5.1)
[2016-11-11 06:37] LABS: CREATININE 2.82 mg/dl (0.61-1.24)
[2016-11-11 06:38] LABS: CALCIUM 7.8 mg/dl (8.4-10.2); MAGNESIUM 2.1 mg/dl (1.7-2.5); PHOSPHORUS 2.2 mg/dl (2.5-4.9)
[2016-11-11] MEDS: CALCIUM/VITAMIN D (500/200) TAB GTB SCH (09:00)
[2016-11-11] MEDS: SILDENAFIL 20 MG TAB GTB SCH ×2 (09:00→20:01)
--- NOTE | 2016-11-11 09:21 | PN ---
DATE: 11/11/2016 SUBJECTIVE: The patient is stable. No acute events overnight. The patient had hemodialysis yester day with 1.5 liters removed. No other events noted. OBJECTIVE: VITAL SIGNS: Blood pressure is 100/48, respiration 18, pulse 98.5. HEENT: Head is normocephalic. NECK: Supple. HEART: Regular rate. LUNGS: Show diminished breath sounds at base. ABDOMEN: Soft, nontender to palpation without rebound or guarding. Positive PEG. EXTREMITIES: Negative for clubbing, cyanosis, edema on the right leg. Left BKA is noted. NEUROLOGIC: No change in exam. MUSCULOSKELETAL: No joint effusions. DERMATOLOGIC: No rashes. MEDICATIONS: The patient's medications have been reviewed. LABORATORY DATA: Shows sodium 138, potassium 4.4, chloride 103, BUN 57, creatinine 2.82, magnesium is 2.1, phosphorus 2.2. White count 7.9, hemoglobin 10.0, hematocrit 31.4, platelet count is 192. ASSESSMENT AND PLAN: 1. End-stage renal disease. The patient had hemodialysis, tolerated well. Anticipate next hemodia lysis on Saturday. 2. Anemia of chronic disease. The patient is status post EGD which showed erosive esophagitis. We will continue to monitor hemoglobin and hematocrit levels. Continue Epogen. 3. Mineral bone disorder. The patient is hypophosphatemic. We will continue Neutra-Phos depletion . 4. Volume overload, improving. Continue ultrafiltration with dialysis. 5. Sepsis secondary to pneumonia. Continue current antibiotic regimen. 6. Ventilator dependent respiratory failure. Vent settings have been reviewed. ABGs reviewed. Co ntinue to monitor. 7. History of dysphagia status post PEG. Continue tube feeding. 8. Coronary artery disease. Continue current medical management. 9. Diabetes. Continue Accu-Cheks and sliding scale. 10. Depression and anxiety disorder. Continue current treatment plan. 11. Hypertension. The patient is currently normotensive. Continue to monitor. 12. History of congestive heart failure. Continue current treatment plan. Dictated By: SARAHI RINALDI/OLESYA Conf#: [id number] DID#: [id number]
--- NOTE | 2016-11-11 09:38 | PN ---
Date/Time of Note Date/Time of Note DATE: 11/11/16 TIME: 09:32 Assessment/Plan VTE Prophylaxis VTE Prophylaxis Intervention: SCD's Lines/Catheters IV Catheter Type (from Nrs): [place] Urinary Cath still in place: No Subjective 24 Hr Interval Summary Gastrointestinal: blood, constipation, decreased appetite, diarrhea, flatus, nausea, no complaints, other, pain (tender llq area . r/o diverticulitis.plan ct scan of abdomen and pelvis. start flagyl 500mg q 8 hrly), passing stool Exam/Review of Systems Vital Signs Vitals Vital Signs Date Time Temp Pulse Resp B/P Pulse Ox O2 Delivery O2 Flow Rate FiO2 11/11/16 08:05 98.5 18 18 100/48 98 11/11/16 07:10 30 11/11/16 06:00 Mechanical Ventilator Intake and Output 11/10/16 11/10/16 11/11/16 15:00 23:00 07:00 Intake Total 630 ml Balance 630 ml Results Result Diagram: 11/11/16 0530 11/11/16 0530 Results 24 hrs Laboratory Tests Test 11/10/16 12:35 11/10/16 16:55 11/10/16 20:45 11/10/16 23:04 Bedside Glucose 100 102 88 Hemoglobin 8.6 L Hematocrit 26.9 L Test 11/11/16 04:52 11/11/16 05:30 11/11/16 08:12 Bedside Glucose 131 155 White Blood Count 7.9 Red Blood Count 3.21 L Hemoglobin 10.0 L Hematocrit 31.4 L Mean Corpuscular Volume 97.8 Mean Corpuscular Hemoglobin 31.2 Mean Corpuscular Hemoglobin Concent 31.8 L Red Cell Distribution Width 20.6 H Platelet Count 192 Mean Platelet Volume 9.0 Neutrophils % 70.6 Lymphocytes % 10.7 L Monocytes % 13.8 H Eosinophils % 3.7 Basophils % 0.8 Nucleated Red Blood Cells % 0.0 Neutrophils # 5.6 Lymphocytes # 0.8 Monocytes # 1.1 H Eosinophils # 0.3 Basophils # 0.1 Nucleated Red Blood Cells # 0.0 Sodium Level 138 Potassium Level 4.4 Chloride Level 103 Carbon Dioxide Level 27 Anion Gap 12 Blood Urea Nitrogen 57 H Creatinine 2.82 H Glucose Level 126 # Calcium Level 7.8 L Phosphorus Level 2.2 L Magnesium Level 2.1 Medications Medications Current Medications Lidocaine (Lidoderm) 1 patch DAILY TD Last administered on 11/10/16 08:45; Admin Dose 1 PATCH; Start 11/08/16 at 15:30 Acetaminophen (Tylenol Liquid) 325 mg Q4H PRN GTB MILD PAIN LEVEL 1-3; Start at 15:30 Acetaminophen (Tylenol Liquid) 650 mg Q4H PRN GTB MODERATE PAIN LEVEL 4-6 Last administered on 11/09/16 05:28; Admin Dose 650 MG; Start 11/08/16 at 15:30 Ascorbic Acid (Vitamin C) 500 mg DAILY GTB Last administered on 11/10/16 08:43 ; Admin Dose 500 MG; Start 11/09/16 at 09:00 Atorvastatin Calcium (Lipitor) 40 mg QHS GTB Last administered on 11/10/16 20: 05; Admin Dose 40 MG; Start 11/08/16 at 21:00 Calcium/Vitamin D (Oyster Shell/ Vit-D (500/200)) 500 tab DAILY GTB ; Start at 09:00 Carvedilol (Coreg) 3.125 mg BID GTB Last administered on 11/10/16 20:06; Admin Dose 3.125 MG; Start 11/08/16 at 21:00 Clonidine HCl (Catapres-Tts 1 Patch) 1 patch Q7D TRANSDERM Last administered on 11/08/16 18:32; Admin Dose 1 PATCH; Start 11/08/16 at 15:30 Duloxetine HCl (Cymbalta) 30 mg DAILY GTB Last administered on 11/10/16 08:44 ; Admin Dose 30 MG; Start 11/09/16 at 09:00 Fluticasone Propionate (Flonase 0.05% Nasal) 1 spray BID NASAL Last administered on 11/10/16 20:05; Admin Dose 1 SPRAY; Start 11/08/16 at 21:00 Insulin Glargine (Lantus) 10 unit DAILY SC Last administered on 11/10/16 08:47 ; Admin Dose 10 UNIT; Start 11/09/16 at 09:00 Lactobacillus Acidoph/Bulgaricus (Floranex) 1 tab DAILY GTB Last administered on 11/10/16 08:43; Admin Dose 1 TAB; Start 11/09/16 at 09:00 Nifedipine (Procardia) 30 mg BID GTB Last administered on 11/10/16 08:44; Admin Dose 30 MG; Start 11/08/16 at 21:00 Sildenafil Citrate (Revatio) 20 mg BID GTB ; Start 11/08/16 at 21:00 Zinc Sulfate (Zinc Sulfate) 220 mg DAILY GTB Last administered on 11/10/16 08: 43; Admin Dose 220 MG; Start 11/09/16 at 09:00 Vitamin B Complex/ Vitamin C (Berocca) 1 cap DAILY GTB Last administered on 08:44; Admin Dose 1 CAP; Start 11/09/16 at 09:00 Miscellaneous Information 1 ea NOTE XX ; Start 11/08/16 at 16:00 Glucose (Glutose) 15 gm Q15M PRN PO DECREASED GLUCOSE; Start 11/08/16 at 16:00 Glucose (Glutose) 22.5 gm Q15M PRN PO DECREASED GLUCOSE; Start 11/08/16 at 16: 00 Dextrose (D50w Syringe) 25 ml Q15M PRN IV DECREASED GLUCOSE; Start 11/08/16 at 16:00 Dextrose (D50w Syringe) 50 ml Q15M PRN IV DECREASED GLUCOSE; Start 11/08/16 at 16:00 Glucagon (Glucagen) 1 mg Q15M PRN IM DECREASED GLUCOSE; Start 11/08/16 at 16:00 Glucose (Glutose) 15 gm Q15M PRN BUCCAL DECREASED GLUCOSE; Start 11/08/16 at 16 :00 Acetaminophen/ Hydrocodone Bitart ([place] (5/325)) 1 tab Q4H PRN PO SEVERE PAIN 7-10 Last administered on 11/10/16 20:05; Admin Dose 1 TAB; Start 11/08/16 at 21:00 Morphine Sulfate (morphine) 2 mg Q4H PRN IV PAIN LEVEL 7-10 Last administered on 11/10/16 17:30; Admin Dose 2 MG; Start 11/09/16 at 11:00 Collagenase (Santyl) 1 applic DAILY TOP Last administered on 11/10/16 08:45; Admin Dose 1 APPLIC; Start 11/09/16 at 16:00 Lorazepam (Ativan) 1 mg Q6H PRN IV AGITATION/ANXIETY Last administered on 17:03; Admin Dose 1 MG; Start 11/09/16 at 20:30 Pantoprazole (Protonix Iv) 40 mg BID@06,18 IV Last administered on 11/11/16 05 :00; Admin Dose 40 MG; Start 11/10/16 at 06:00 Sodium Phosphate (Neutra-Phos) 250 mg BID GTB Last administered on 11/10/16 20 :05; Admin Dose 250 MG; Start 11/10/16 at 09:00 Mupirocin (Bactroban) 1 applic BID TOP Last administered on 11/10/16 20:06; Admin Dose 1 APPLIC; Start 11/10/16 at 12:30 Insulin Aspart (Novolog Insulin Pen) NOVOLOG *MILD* ALGORI... Q6 SC ; Start at 00:00 HANS DUMONT MD Nov 11, 2016 09:38
[2016-11-11] MEDS ORDERED: BARIUM SULF 2% 450 ML BTL (BERRY SMOOTHIE) PO ONE (10:30)
--- NOTE | 2016-11-11 11:16 | CONS ---
Date/Time of Note Date/Time of Note DATE: 11/11/16 TIME: 11:14 Assessment/Plan Assessment/Plan Additional Assessment/Plan Ventilator settings; AC of 14, tidal volume 550, PEEP of 5, 30% FiO2. Assessment recommendations; 1. Patient admitted for UTI and sepsis with significant clinical improvement. 2. Chronic respiratory failure, patient ventilator dependent. 3. History of extensive CVA. Continue current treatment. Patient was transferred to the long term. Consultation Date/Type/Reason Admit Date/Time Nov 08, 2016 at 10:56 Initial Consult Date 11/08/16 Type of Consultation: Pulmonary Referring Provider: JOYCE SOARES MD 24 HR Interval Summary Free Text/Dictation Patient condition is stable. Has remained hemodynamically stable. Exam; elderly male, currently in no distress. Exam/Review of Systems Vital Signs Vitals Vital Signs Date Time Temp Pulse Resp B/P Pulse Ox O2 Delivery O2 Flow Rate FiO2 11/11/16 09:10 89 14 99 30 11/11/16 08:05 98.5 100/48 11/11/16 06:00 Mechanical Ventilator Intake and Output 11/10/16 11/10/16 11/11/16 14:59 22:59 06:59 Intake Total 630 ml Balance 630 ml Exam HEENT exam; supple neck, no JVD. No lymphadenopathy. Midline trachea. No thyromegaly. Tracheostomy in place with clean insertion site. Pupils are midsize bilaterally. Chest examination; diminished but clear breath sounds bilaterally. S1-S2 audible, no murmurs. Regular rhythm. Abdomen examination; soft, G-tube in place. No organomegaly. Bowel sounds audible. Extremity exam; patient is a well-healed left below-knee hypertension. There is mild generalized edema. Multiple area of ecchymosis seen involving all 4 extremities. 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 Results Result Diagram: 11/11/16 0530 11/11/16 0530 Results 24 hrs Laboratory Tests Test 11/10/16 12:35 11/10/16 16:55 11/10/16 20:45 11/10/16 23:04 Bedside Glucose 100 102 88 Hemoglobin 8.6 L Hematocrit 26.9 L Test 11/11/16 04:52 11/11/16 05:30 11/11/16 08:12 Bedside Glucose 131 155 White Blood Count 7.9 Red Blood Count 3.21 L Hemoglobin 10.0 L Hematocrit 31.4 L Mean Corpuscular Volume 97.8 Mean Corpuscular Hemoglobin 31.2 Mean Corpuscular Hemoglobin Concent 31.8 L Red Cell Distribution Width 20.6 H Platelet Count 192 Mean Platelet Volume 9.0 Neutrophils % 70.6 Lymphocytes % 10.7 L Monocytes % 13.8 H Eosinophils % 3.7 Basophils % 0.8 Nucleated Red Blood Cells % 0.0 Neutrophils # 5.6 Lymphocytes # 0.8 Monocytes # 1.1 H Eosinophils # 0.3 Basophils # 0.1 Nucleated Red Blood Cells # 0.0 Sodium Level 138 Potassium Level 4.4 Chloride Level 103 Carbon Dioxide Level 27 Anion Gap 12 Blood Urea Nitrogen 57 H Creatinine 2.82 H Glucose Level 126 # Calcium Level 7.8 L Phosphorus Level 2.2 L Magnesium Level 2.1 Medications Medications Current Medications Lidocaine (Lidoderm) 1 patch DAILY TD Last administered on 11/10/16 08:45; Admin Dose 1 PATCH; Start 11/08/16 at 15:30 Acetaminophen (Tylenol Liquid) 325 mg Q4H PRN GTB MILD PAIN LEVEL 1-3; Start at 15:30 Acetaminophen (Tylenol Liquid) 650 mg Q4H PRN GTB MODERATE PAIN LEVEL 4-6 Last administered on 11/09/16 05:28; Admin Dose 650 MG; Start 11/08/16 at 15:30 Ascorbic Acid (Vitamin C) 500 mg DAILY GTB Last administered on 11/10/16 08:43 ; Admin Dose 500 MG; Start 11/09/16 at 09:00 Atorvastatin Calcium (Lipitor) 40 mg QHS GTB Last administered on 11/10/16 20: 05; Admin Dose 40 MG; Start 11/08/16 at 21:00 Calcium/Vitamin D (Oyster Shell/ Vit-D (500/200)) 500 tab DAILY GTB ; Start at 09:00 Carvedilol (Coreg) 3.125 mg BID GTB Last administered on 11/10/16 20:06; Admin Dose 3.125 MG; Start 11/08/16 at 21:00 Clonidine HCl (Catapres-Tts 1 Patch) 1 patch Q7D TRANSDERM Last administered on 11/08/16 18:32; Admin Dose 1 PATCH; Start 11/08/16 at 15:30 Duloxetine HCl (Cymbalta) 30 mg DAILY GTB Last administered on 11/10/16 08:44 ; Admin Dose 30 MG; Start 11/09/16 at 09:00 Fluticasone Propionate (Flonase 0.05% Nasal) 1 spray BID NASAL Last administered on 11/10/16 20:05; Admin Dose 1 SPRAY; Start 11/08/16 at 21:00 Insulin Glargine (Lantus) 10 unit DAILY SC Last administered on 11/10/16 08:47 ; Admin Dose 10 UNIT; Start 11/09/16 at 09:00 Lactobacillus Acidoph/Bulgaricus (Floranex) 1 tab DAILY GTB Last administered on 11/10/16 08:43; Admin Dose 1 TAB; Start 11/09/16 at 09:00 Nifedipine (Procardia) 30 mg BID GTB Last administered on 11/10/16 08:44; Admin Dose 30 MG; Start 11/08/16 at 21:00 Sildenafil Citrate (Revatio) 20 mg BID GTB ; Start 11/08/16 at 21:00 Zinc Sulfate (Zinc Sulfate) 220 mg DAILY GTB Last administered on 11/10/16 08: 43; Admin Dose 220 MG; Start 11/09/16 at 09:00 Vitamin B Complex/ Vitamin C (Berocca) 1 cap DAILY GTB Last administered on 08:44; Admin Dose 1 CAP; Start 11/09/16 at 09:00 Miscellaneous Information 1 ea NOTE XX ; Start 11/08/16 at 16:00 Glucose (Glutose) 15 gm Q15M PRN PO DECREASED GLUCOSE; Start 11/08/16 at 16:00 Glucose (Glutose) 22.5 gm Q15M PRN PO DECREASED GLUCOSE; Start 11/08/16 at 16: 00 Dextrose (D50w Syringe) 25 ml Q15M PRN IV DECREASED GLUCOSE; Start 11/08/16 at 16:00 Dextrose (D50w Syringe) 50 ml Q15M PRN IV DECREASED GLUCOSE; Start 11/08/16 at 16:00 Glucagon (Glucagen) 1 mg Q15M PRN IM DECREASED GLUCOSE; Start 11/08/16 at 16:00 Glucose (Glutose) 15 gm Q15M PRN BUCCAL DECREASED GLUCOSE; Start 11/08/16 at 16 :00 Acetaminophen/ Hydrocodone Bitart ([place] (5/325)) 1 tab Q4H PRN PO SEVERE PAIN 7-10 Last administered on 11/10/16 20:05; Admin Dose 1 TAB; Start 11/08/16 at 21:00 Morphine Sulfate (morphine) 2 mg Q4H PRN IV PAIN LEVEL 7-10 Last administered on 11/10/16 17:30; Admin Dose 2 MG; Start 11/09/16 at 11:00 Collagenase (Santyl) 1 applic DAILY TOP Last administered on 11/10/16 08:45; Admin Dose 1 APPLIC; Start 11/09/16 at 16:00 Lorazepam (Ativan) 1 mg Q6H PRN IV AGITATION/ANXIETY Last administered on 17:03; Admin Dose 1 MG; Start 11/09/16 at 20:30 Pantoprazole (Protonix Iv) 40 mg BID@06,18 IV Last administered on 11/11/16 05 :00; Admin Dose 40 MG; Start 11/10/16 at 06:00 Sodium Phosphate (Neutra-Phos) 250 mg BID GTB Last administered on 11/10/16 20 :05; Admin Dose 250 MG; Start 11/10/16 at 09:00 Mupirocin (Bactroban) 1 applic BID TOP Last administered on 11/10/16 20:06; Admin Dose 1 APPLIC; Start 11/10/16 at 12:30 Insulin Aspart NOVOLOG *MILD* ALGORI... Q6 SC ; Start 11/11/16 at 00:00 Metronidazole (Flagyl 500 Mg (Pmx)) 100 ml @ 100 mls/hr Q8 IVPB ; Start at 14:00 ELVI BLANK Nov 11, 2016 11:16
[2016-11-11] MEDS: MUPIROCIN 2% 22 GM OINT TOP SCH ×2 (11:23→20:01)
[2016-11-11] MEDS: FLUTICASONE 0.05% 16 GM NAS SPRAY NASAL SCH ×2 (11:24→20:01)
[2016-11-11] MEDS: COLLAGENASE 30 GM TUBE TOP SCH (11:24)
[2016-11-11] MEDS: LIDOCAINE 5% PATCH TD SCH (11:25)
[2016-11-11] MEDS: INSULIN GLARGINE [LANtus] 3 ML PEN SC SCH (11:27)
--- NOTE | 2016-11-11 11:52 | CONS ---
Date/Time of Note Date/Time of Note DATE: 11/11/16 TIME: 11:44 Assessment/Plan Assessment/Plan Chief Complaint/Hosp Course - SIRS likely 2/2 to GI bleed - possible diverticulitis - h/o severe C diff colitis in 2016 - ESRD on HD - VDRF on trach - G tueb dependence - PVD - s/p L BKA recommendations - will review the result of CT abd/pel - if diverticulitis is confirmed, I recommend broader spectrum antibiotics ( e.g. addition of levofloxacin to metronidazole). For now, OK to continue empiric metronidazole started by GI - management d/w Pt's RN Problems: Consultation Date/Type/Reason Admit Date/Time Nov 08, 2016 at 10:56 Initial Consult Date 11/09/16 Type of Consultation: ID Referring Provider: JOYCE SOARES MD 24 HR Interval Summary Subjective hx not possible: pt non-verbal Exam/Review of Systems Vital Signs Vitals Vital Signs Date Time Temp Pulse Resp B/P Pulse Ox O2 Delivery O2 Flow Rate FiO2 11/11/16 11:42 98.3 87 18 143/63 100 11/11/16 09:10 30 11/11/16 06:00 Mechanical Ventilator Intake and Output 11/10/16 11/10/16 11/11/16 15:00 23:00 07:00 Intake Total 630 ml Balance 630 ml Exam Constitutional: frail, non-verbal Psych: confusion Head: atraumatic, normocephalic Eyes: nl conjunctiva, nl lids ENMT: nl external ears & nose Neck: other (trach) Respiratory: clear to auscultation, normal air movement Cardiovascular: nl pulses, regular rate and rhythm Gastrointestinal: non-tender, other (GT), soft Extremities: other (s/p L BKA) Neurological: confused, lethargic Skin: nl turgor Results Result Diagram: 11/11/16 0530 11/11/16 0530 Results 24 hrs Laboratory Tests Test 11/10/16 12:35 11/10/16 16:55 11/10/16 20:45 11/10/16 23:04 Bedside Glucose 100 102 88 Hemoglobin 8.6 L Hematocrit 26.9 L Test 11/11/16 04:52 11/11/16 05:30 11/11/16 08:12 Bedside Glucose 131 155 White Blood Count 7.9 Red Blood Count 3.21 L Hemoglobin 10.0 L Hematocrit 31.4 L Mean Corpuscular Volume 97.8 Mean Corpuscular Hemoglobin 31.2 Mean Corpuscular Hemoglobin Concent 31.8 L Red Cell Distribution Width 20.6 H Platelet Count 192 Mean Platelet Volume 9.0 Neutrophils % 70.6 Lymphocytes % 10.7 L Monocytes % 13.8 H Eosinophils % 3.7 Basophils % 0.8 Nucleated Red Blood Cells % 0.0 Neutrophils # 5.6 Lymphocytes # 0.8 Monocytes # 1.1 H Eosinophils # 0.3 Basophils # 0.1 Nucleated Red Blood Cells # 0.0 Sodium Level 138 Potassium Level 4.4 Chloride Level 103 Carbon Dioxide Level 27 Anion Gap 12 Blood Urea Nitrogen 57 H Creatinine 2.82 H Glucose Level 126 # Calcium Level 7.8 L Phosphorus Level 2.2 L Magnesium Level 2.1 Medications Medications Current Medications Lidocaine (Lidoderm) 1 patch DAILY TD Last administered on 11/11/16 11:25; Admin Dose 1 PATCH; Start 11/08/16 at 15:30 Acetaminophen (Tylenol Liquid) 325 mg Q4H PRN GTB MILD PAIN LEVEL 1-3; Start at 15:30 Acetaminophen (Tylenol Liquid) 650 mg Q4H PRN GTB MODERATE PAIN LEVEL 4-6 Last administered on 11/09/16 05:28; Admin Dose 650 MG; Start 11/08/16 at 15:30 Ascorbic Acid (Vitamin C) 500 mg DAILY GTB Last administered on 11/10/16 08:43 ; Admin Dose 500 MG; Start 11/09/16 at 09:00 Atorvastatin Calcium (Lipitor) 40 mg QHS GTB Last administered on 11/10/16 20: 05; Admin Dose 40 MG; Start 11/08/16 at 21:00 Calcium/Vitamin D (Oyster Shell/ Vit-D (500/200)) 500 tab DAILY GTB ; Start at 09:00 Carvedilol (Coreg) 3.125 mg BID GTB Last administered on 11/10/16 20:06; Admin Dose 3.125 MG; Start 11/08/16 at 21:00 Clonidine HCl (Catapres-Tts 1 Patch) 1 patch Q7D TRANSDERM Last administered on 11/08/16 18:32; Admin Dose 1 PATCH; Start 11/08/16 at 15:30 Duloxetine HCl (Cymbalta) 30 mg DAILY GTB Last administered on 11/10/16 08:44 ; Admin Dose 30 MG; Start 11/09/16 at 09:00 Fluticasone Propionate (Flonase 0.05% Nasal) 1 spray BID NASAL Last administered on 11/11/16 11:24; Admin Dose 1 SPRAY; Start 11/08/16 at 21:00 Insulin Glargine (Lantus) 10 unit DAILY SC Last administered on 11/11/16 11:27 ; Admin Dose 10 UNIT; Start 11/09/16 at 09:00 Lactobacillus Acidoph/Bulgaricus (Floranex) 1 tab DAILY GTB Last administered on 11/10/16 08:43; Admin Dose 1 TAB; Start 11/09/16 at 09:00 Nifedipine (Procardia) 30 mg BID GTB Last administered on 11/10/16 08:44; Admin Dose 30 MG; Start 11/08/16 at 21:00 Sildenafil Citrate (Revatio) 20 mg BID GTB ; Start 11/08/16 at 21:00 Zinc Sulfate (Zinc Sulfate) 220 mg DAILY GTB Last administered on 11/10/16 08: 43; Admin Dose 220 MG; Start 11/09/16 at 09:00 Vitamin B Complex/ Vitamin C (Berocca) 1 cap DAILY GTB Last administered on 08:44; Admin Dose 1 CAP; Start 11/09/16 at 09:00 Miscellaneous Information 1 ea NOTE XX ; Start 11/08/16 at 16:00 Glucose (Glutose) 15 gm Q15M PRN PO DECREASED GLUCOSE; Start 11/08/16 at 16:00 Glucose (Glutose) 22.5 gm Q15M PRN PO DECREASED GLUCOSE; Start 11/08/16 at 16: 00 Dextrose (D50w Syringe) 25 ml Q15M PRN IV DECREASED GLUCOSE; Start 11/08/16 at 16:00 Dextrose (D50w Syringe) 50 ml Q15M PRN IV DECREASED GLUCOSE; Start 11/08/16 at 16:00 Glucagon (Glucagen) 1 mg Q15M PRN IM DECREASED GLUCOSE; Start 11/08/16 at 16:00 Glucose (Glutose) 15 gm Q15M PRN BUCCAL DECREASED GLUCOSE; Start 11/08/16 at 16 :00 Acetaminophen/ Hydrocodone Bitart ([place] (5/325)) 1 tab Q4H PRN PO SEVERE PAIN 7-10 Last administered on 11/10/16 20:05; Admin Dose 1 TAB; Start 11/08/16 at 21:00 Morphine Sulfate (morphine) 2 mg Q4H PRN IV PAIN LEVEL 7-10 Last administered on 11/10/16 17:30; Admin Dose 2 MG; Start 11/09/16 at 11:00 Collagenase (Santyl) 1 applic DAILY TOP Last administered on 11/11/16 11:24; Admin Dose 1 APPLIC; Start 11/09/16 at 16:00 Lorazepam (Ativan) 1 mg Q6H PRN IV AGITATION/ANXIETY Last administered on 17:03; Admin Dose 1 MG; Start 11/09/16 at 20:30 Pantoprazole (Protonix Iv) 40 mg BID@06,18 IV Last administered on 11/11/16 05 :00; Admin Dose 40 MG; Start 11/10/16 at 06:00 Sodium Phosphate (Neutra-Phos) 250 mg BID GTB Last administered on 11/10/16 20 :05; Admin Dose 250 MG; Start 11/10/16 at 09:00 Mupirocin (Bactroban) 1 applic BID TOP Last administered on 11/11/16 11:23; Admin Dose 1 APPLIC; Start 11/10/16 at 12:30 Insulin Aspart NOVOLOG *MILD* ALGORI... Q6 SC ; Start 11/11/16 at 00:00 Metronidazole (Flagyl 500 Mg (Pmx)) 100 ml @ 100 mls/hr Q8 IVPB ; Start at 14:00 SADIA LONDON M.D. Nov 11, 2016 11:52
[2016-11-11] MEDS: morphine 2 MG INJ IV PRN ×2 (12:59→21:15)
[2016-11-11] MEDS: LORAZEPAM 2 MG INJ IV PRN (12:59)
--- NOTE | 2016-11-11 14:18 | PN ---
Date/Time of Note Date/Time of Note DATE: 11/11/16 TIME: 14:11 Assessment/Plan VTE Prophylaxis VTE Prophylaxis Intervention: other Lines/Catheters IV C[facility] Type (from [facility] Saline Lock Urinary Cath still in place: No Assessment/Plan Assessment/Plan - Possible GI bleed, patient is followed by Dr. Hernandez in gastroenterology consultation, pending EGD. - Anemia possibly of GI bleed patient has known anemia of chronic disease, on Epogen, continue to monitor hemoglobin and hematocrit, transfuse as needed. - Systemic inflammatory response syndrome with leukocytosis, patient is followed by Dr. Benjamin deluna in infection disease consultation. - End-stage renal disease, hemodialysis dependent. Continue hemodialysis per nephrology. - Chronic respiratory failure with tracheostomy. Dr. Sahu is following in pulmonology consultation. - Coronary artery disease with history of PCI. - Diastolic congestive heart failure -Pulmonary hypertension - Peripheral vascular disease, status post left BKA. - Diabetes mellitus type 2, continue NovoLog per sliding scale. -Sacral decub present on admission - MRSA nares - Bacroban - contact isolation DW Dr Jensen Subjective 24 Hr Interval Summary Constitutional: requiring IVF Exam/Review of Systems Vital Signs Vitals Vital Signs Date Time Temp Pulse Resp B/P Pulse Ox O2 Delivery O2 Flow Rate FiO2 11/11/16 13:10 80 32 100 30 11/11/16 11:42 98.3 143/63 11/11/16 06:00 Mechanical Ventilator Intake and Output 11/10/16 11/10/16 11/11/16 15:00 23:00 07:00 Intake Total 630 ml Balance 630 ml Exam Constitutional: non-verbal Eyes: nl sclera ENMT: nl external ears & nose Neck: non-tender Respiratory: diminished breath sounds Cardiovascular: nl pulses Gastrointestinal: other, soft Musculoskeletal: muscle weakness Neurological: lethargic Results Result Diagram: 11/11/16 0530 11/11/16 0530 Results 24 hrs Laboratory Tests Test 11/10/16 16:55 11/10/16 20:45 11/10/16 23:04 11/11/16 04:52 Bedside Glucose 102 88 131 Hemoglobin 8.6 L Hematocrit 26.9 L Test 11/11/16 05:30 11/11/16 08:12 11/11/16 12:29 White Blood Count 7.9 Red Blood Count 3.21 L Hemoglobin 10.0 L Hematocrit 31.4 L Mean Corpuscular Volume 97.8 Mean Corpuscular Hemoglobin 31.2 Mean Corpuscular Hemoglobin Concent 31.8 L Red Cell Distribution Width 20.6 H Platelet Count 192 Mean Platelet Volume 9.0 Neutrophils % 70.6 Lymphocytes % 10.7 L Monocytes % 13.8 H Eosinophils % 3.7 Basophils % 0.8 Nucleated Red Blood Cells % 0.0 Neutrophils # 5.6 Lymphocytes # 0.8 Monocytes # 1.1 H Eosinophils # 0.3 Basophils # 0.1 Nucleated Red Blood Cells # 0.0 Sodium Level 138 Potassium Level 4.4 Chloride Level 103 Carbon Dioxide Level 27 Anion Gap 12 Blood Urea Nitrogen 57 H Creatinine 2.82 H Glucose Level 126 # Calcium Level 7.8 L Phosphorus Level 2.2 L Magnesium Level 2.1 Bedside Glucose 155 152 Medications Medications Current Medications Lidocaine (Lidoderm) 1 patch DAILY TD Last administered on 11/11/16 11:25; Admin Dose 1 PATCH; Start 11/08/16 at 15:30 Acetaminophen (Tylenol Liquid) 325 mg Q4H PRN GTB MILD PAIN LEVEL 1-3; Start at 15:30 Acetaminophen (Tylenol Liquid) 650 mg Q4H PRN GTB MODERATE PAIN LEVEL 4-6 Last administered on 11/09/16 05:28; Admin Dose 650 MG; Start 11/08/16 at 15:30 Ascorbic Acid (Vitamin C) 500 mg DAILY GTB Last administered on 11/10/16 08:43 ; Admin Dose 500 MG; Start 11/09/16 at 09:00 Atorvastatin Calcium (Lipitor) 40 mg QHS GTB Last administered on 11/10/16 20: 05; Admin Dose 40 MG; Start 11/08/16 at 21:00 Calcium/Vitamin D (Oyster Shell/ Vit-D (500/200)) 500 tab DAILY GTB ; Start at 09:00 Carvedilol (Coreg) 3.125 mg BID GTB Last administered on 11/10/16 20:06; Admin Dose 3.125 MG; Start 11/08/16 at 21:00 Clonidine HCl (Catapres-Tts 1 Patch) 1 patch Q7D TRANSDERM Last administered on 11/08/16 18:32; Admin Dose 1 PATCH; Start 11/08/16 at 15:30 Duloxetine HCl (Cymbalta) 30 mg DAILY GTB Last administered on 11/10/16 08:44 ; Admin Dose 30 MG; Start 11/09/16 at 09:00 Fluticasone Propionate (Flonase 0.05% Nasal) 1 spray BID NASAL Last administered on 11/11/16 11:24; Admin Dose 1 SPRAY; Start 11/08/16 at 21:00 Insulin Glargine (Lantus) 10 unit DAILY SC Last administered on 11/11/16 11:27 ; Admin Dose 10 UNIT; Start 11/09/16 at 09:00 Lactobacillus Acidoph/Bulgaricus (Floranex) 1 tab DAILY GTB Last administered on 11/10/16 08:43; Admin Dose 1 TAB; Start 11/09/16 at 09:00 Nifedipine (Procardia) 30 mg BID GTB Last administered on 11/10/16 08:44; Admin Dose 30 MG; Start 11/08/16 at 21:00 Sildenafil Citrate (Revatio) 20 mg BID GTB ; Start 11/08/16 at 21:00 Zinc Sulfate (Zinc Sulfate) 220 mg DAILY GTB Last administered on 11/10/16 08: 43; Admin Dose 220 MG; Start 11/09/16 at 09:00 Vitamin B Complex/ Vitamin C (Berocca) 1 cap DAILY GTB Last administered on 08:44; Admin Dose 1 CAP; Start 11/09/16 at 09:00 Miscellaneous Information 1 ea NOTE XX ; Start 11/08/16 at 16:00 Glucose (Glutose) 15 gm Q15M PRN PO DECREASED GLUCOSE; Start 11/08/16 at 16:00 Glucose (Glutose) 22.5 gm Q15M PRN PO DECREASED GLUCOSE; Start 11/08/16 at 16: 00 Dextrose (D50w Syringe) 25 ml Q15M PRN IV DECREASED GLUCOSE; Start 11/08/16 at 16:00 Dextrose (D50w Syringe) 50 ml Q15M PRN IV DECREASED GLUCOSE; Start 11/08/16 at 16:00 Glucagon (Glucagen) 1 mg Q15M PRN IM DECREASED GLUCOSE; Start 11/08/16 at 16:00 Glucose (Glutose) 15 gm Q15M PRN BUCCAL DECREASED GLUCOSE; Start 11/08/16 at 16 :00 Acetaminophen/ Hydrocodone Bitart ([place] (5/325)) 1 tab Q4H PRN PO SEVERE PAIN 7-10 Last administered on 11/10/16 20:05; Admin Dose 1 TAB; Start 11/08/16 at 21:00 Morphine Sulfate (morphine) 2 mg Q4H PRN IV PAIN LEVEL 7-10 Last administered on 11/11/16 12:59; Admin Dose 2 MG; Start 11/09/16 at 11:00 Collagenase (Santyl) 1 applic DAILY TOP Last administered on 11/11/16 11:24; Admin Dose 1 APPLIC; Start 11/09/16 at 16:00 Lorazepam (Ativan) 1 mg Q6H PRN IV AGITATION/ANXIETY Last administered on 12:59; Admin Dose 1 MG; Start 11/09/16 at 20:30 Pantoprazole (Protonix Iv) 40 mg BID@06,18 IV Last administered on 11/11/16 05 :00; Admin Dose 40 MG; Start 11/10/16 at 06:00 Sodium Phosphate (Neutra-Phos) 250 mg BID GTB Last administered on 11/10/16 20 :05; Admin Dose 250 MG; Start 11/10/16 at 09:00 Mupirocin (Bactroban) 1 applic BID TOP Last administered on 11/11/16 11:23; Admin Dose 1 APPLIC; Start 11/10/16 at 12:30 Insulin Aspart NOVOLOG *MILD* ALGORI... Q6 SC ; Start 11/11/16 at 00:00 Metronidazole (Flagyl 500 Mg (Pmx)) 100 ml @ 100 mls/hr Q8 IVPB ; Start at 14:00 GRACIE KATHLEEN Nov 11, 2016 14:18
--- NOTE | 2016-11-11 15:35 | RADRPT ---
PROCEDURE: CT abdomen and pelvis without contrast. CLINICAL INDICATION: Abdominal Pain TECHNIQUE: Following oral contrast, spiral CT scan of the abdomen and pelvis without contrast was performed and is reconstructed at 2.5 mm contiguous axial intervals from the dome of the diaphragm t o the inferior pubic rami.. The patient was scanned without intravenous contrast. Sagittal and cor onal reformatted images were obtained from the axial source images. The calculated radiation dose me asures 1505 mGy centimeters. The CTDI measures 23 mGy. COMPARISON: None. FINDINGS: There is partial collapse of the right lower lobe with atelectasis in the dependent portion of the l eft lower lobe. Ground-glass interstitial infiltrates are seen in both lungs. There are coronary a rtery calcifications. There is a chronic compression fracture of T10. The liver is of normal size, contour and attenuation with no mass or ductal dilatation. Gallbladder is not confidently visualized. No splenic, adrenal or pancreatic abnormalities present. Kidneys are atrophic. There is calcification of the papilla. No hydronephrosis or masses seen. Ur eters are of normal course and caliber with no stone. No bladder masses stone is present. Prostate and seminal vesicles appear normal. There is no aneurysm. No adenopathy is present. Calcification is seen in the wall of the aorta. No bowel mass or obstruction is present. Feeding gastrostomy tube is present. The appendix is no t confidently seen, however, no inflamed appendix is present.. No phlegmon or pneumoperitoneum is v isualized. There is a moderate volume of ascites. 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 IMPRESSION: No evidence of urolithiasis, obstructive uropathy, diverticulitis or appendicitis. Ascites. Nonvisualization gallbladder. Atrophic kidneys without evidence of obstruction. Calcification of the patella. Question medullary sponge kidneys. Near complete collapse right lower lobe with left lower lobe atelectasis. Ground-glass interstitial infiltrates of the lungs. Question interstitial edema. Vascular calcifications. Nonunion bilateral femoral neck fractures. Chronic compression fracture T10. .Sunday Tomlinson MD, MD Date Time Electronically viewed and signed by .Sunday Tomlinson MD, on 11/11/2016 15:34 .A/
[2016-11-11] MEDS: NEUTRA-PHOS 250 MG PACKET GTB SCH ×2 (16:52→20:00)
[2016-11-11] MEDS: LACTOBACILLUS CHEW TAB GTB SCH (16:52)
[2016-11-11] MEDS: ASCORBIC ACID 500 MG TAB GTB SCH (16:53)
[2016-11-11] MEDS: ZINC SULFATE 220 MG CAP GTB SCH (16:53)
[2016-11-11] MEDS: VITAMIN B COMPLEX/VIT C CAP GTB SCH (16:53)
[2016-11-11] MEDS: DULOXETINE 30 MG CAP DR GTB SCH (16:53)
[2016-11-11] MEDS: HYDROCODONE/APAP (5/325) TAB PO PRN (16:53)
[2016-11-11] MEDS: NIFEdipine 10 MG CAP GTB SCH ×2 (16:55→20:01)
[2016-11-11] MEDS: metroNIDAZOLE 500 MG/NS (PMX) 100 ML IVPB SCH ×2 (16:55→21:15)
[2016-11-11] MEDS: ATORVASTATIN 40 MG TAB GTB SCH (20:01)
[2016-11-11 21:34] LABS: HEMOGLOBIN 10.5 g/dl (14.0-18.0)
[2016-11-12] VITALS (30 sets, daily range): BP systolic 75–145; BP diastolic 42–68; PULSE 66–90; RESP 14–22
[2016-11-12] MEDS: metroNIDAZOLE 500 MG/NS (PMX) 100 ML IVPB SCH ×3 (05:14→21:34)
[2016-11-12] MEDS: INSULIN ASPART [NOVOLOG] 3 ML PEN SC SCH ×3 (05:14→18:54)
[2016-11-12] MEDS: PANTOPRAZOLE 40 MG INJ IV SCH ×2 (05:14→18:47)
[2016-11-12 07:27] LABS: ADD SCAN DIFF NO
[2016-11-12 07:33] LABS: BASOPHIL # 0.1 10^3/ul (0.0-0.1); BASOPHILS % 0.5 % (0.0-2.0); EOSINOPHILS # 0.3 10^3/ul (0.0-0.5); EOSINOPHILS % 2.5 % (0.0-7.0); HEMATOCRIT 29.7 % (42.0-52.0); HEMOGLOBIN 9.6 g/dl (14.0-18.0); LYMPHOCYTES # 0.8 10^3/ul (0.8-2.9); LYMPHOCYTES % 6.4 % (15.0-51.0); MEAN CORPUSCULAR HEMOGLOBIN 31.6 pg (29.0-33.0); MEAN CORPUSCULAR HGB CONC 32.3 g/dl (32.0-37.0); MEAN CORPUSCULAR VOLUME 97.7 fl (82.0-101.0); MEAN PLATELET VOLUME 8.8 fl (7.4-10.4); MONOCYTES % 8.5 % (0.0-11.0); NEUTROPHIL # 9.7 10^3/ul (1.6-7.5); NEUTROPHILS % 81.5 % (39.0-77.0); PLATELET COUNT 192 10^3/UL (140-415); RED BLOOD COUNT 3.04 10^6/ul (4.70-6.10); RED CELL DISTRIBUTION WIDTH 19.5 % (11.5-14.5); WHITE BLOOD COUNT 11.9 10^3/ul (4.8-10.8)
[2016-11-12 07:54] LABS: POTASSIUM 4.8 mmol/L (3.5-5.1)
[2016-11-12 07:57] LABS: CREATININE 3.07 mg/dl (0.61-1.24)
[2016-11-12 07:58] LABS: CALCIUM 7.2 mg/dl (8.4-10.2)
[2016-11-12] MEDS: CALCIUM/VITAMIN D (500/200) TAB GTB SCH (09:45)
[2016-11-12] MEDS: ZINC SULFATE 220 MG CAP GTB SCH (09:53)
[2016-11-12] MEDS: DULOXETINE 30 MG CAP DR GTB SCH (09:53)
--- NOTE | 2016-11-12 09:53 | PN ---
DATE: 11/12/2016 SUBJECTIVE: The patient is stable, no acute events overnight. The patient is pending dialysis toda y. OBJECTIVE: VITAL SIGNS: Blood pressure is 119/54, respirations 20, pulse 89, temperature 98.4. I's and O's re viewed. HEENT: Head is normocephalic. NECK: Supple. HEART: Regular rate. LUNGS: Show diminished breath sounds at the base. ABDOMEN: Soft, nontender to palpation without rebound or guarding. EXTREMITIES: Negative for clubbing, cyanosis, no edema on the right leg. Left BKA is noted. DERMATOLOGIC: No rashes. MUSCULOSKELETAL: No joint effusions. NEUROLOGIC: No change in exam. MEDICATIONS: The patient's medications have been reviewed. LABORATORY DATA: Shows white count 11.9, hemoglobin 9.6, hematocrit 29.7, platelet count is 192. S odium 133, potassium 4.0, approximately 100, BUN 63, creatinine 3.07. ASSESSMENT AND PLAN: 1. End-stage renal disease. The patient is on dialysis Saturday, Saturday, Saturday. Plan for dialys is today for 3 hours, ____K bath, calcium 2.5, ultrafiltrate as tolerated. 2. Anemia of chronic disease. The patient is status post EGD which showed esophagitis. Continue t o monitor H and H levels. Continue Epogen. 3. Mineral bone disorder. Patient has hypophosphatemia. Continue Neutra-Phos. 4. Volume overload, improving. Continue ultrafiltration with dialysis. 5. Sepsis secondary to pneumonia. The patient has completed antibiotic course. 6. Ventilatory-dependent respiratory failure. Vent settings reviewed. ABG was reviewed. Continue to monitor. 7. Dysphagia, status post PEG. Continue tube feed. 8. Coronary artery disease. Continue medical management. 9. Diabetes. Continue Accu-Cheks and sliding scale. 10. Depression and anxiety disorder. Continue current treatment plan. 11. Hypertension. The patient is normotensive. Continue to monitor. 12. History of congestive heart failure. Continue medical management. 13. Hyponatremia. The patient will be dialyzed on 140 sodium bath. Dictated By: SARAHI RINALDI/NTS Conf#: [id number] DID#: [id number]
[2016-11-12] MEDS: VITAMIN B COMPLEX/VIT C CAP GTB SCH (09:54)
[2016-11-12] MEDS: LACTOBACILLUS CHEW TAB GTB SCH (09:54)
[2016-11-12] MEDS: NIFEdipine 10 MG CAP GTB SCH ×2 (09:54→21:00)
[2016-11-12] MEDS: NEUTRA-PHOS 250 MG PACKET GTB SCH ×2 (09:54→21:32)
[2016-11-12] MEDS: ASCORBIC ACID 500 MG TAB GTB SCH (09:54)
[2016-11-12] MEDS: FLUTICASONE 0.05% 16 GM NAS SPRAY NASAL SCH ×2 (09:55→21:33)
[2016-11-12] MEDS: MUPIROCIN 2% 22 GM OINT TOP SCH ×2 (09:55→21:33)
[2016-11-12] MEDS: COLLAGENASE 30 GM TUBE TOP SCH (09:56)
[2016-11-12] MEDS: INSULIN GLARGINE [LANtus] 3 ML PEN SC SCH (09:57)
--- NOTE | 2016-11-12 11:32 | PN ---
Date/Time of Note Date/Time of Note DATE: 11/12/16 TIME: 11:30 Assessment/Plan VTE Prophylaxis VTE Prophylaxis Intervention: other (per pmd) Lines/Catheters IV Catheter Type (from Nrsg): Saline Lock Urinary Cath still in place: No Assessment/Plan Chief Complaint/Hosp Course a] r/o S B P plan paracentesis Problems: Subjective 24 Hr Interval Summary Free Text/Dictation c/o abd pain Exam/Review of Systems Vital Signs Vitals Vital Signs Date Time Temp Pulse Resp B/P Pulse Ox O2 Delivery O2 Flow Rate FiO2 11/12/16 08:33 85 11/12/16 07:58 98.4 20 119/54 98 11/12/16 06:00 Mechanical Ventilator 11/12/16 05:26 30 Intake and Output 11/11/16 11/11/16 11/12/16 15:00 23:00 07:00 Intake Total 350 ml 100 ml Balance 350 ml 100 ml Exam mild diffuse abd tenderness obese ct abd ascitis Results Result Diagram: 11/12/16 0700 11/12/16 0700 Results 24 hrs Laboratory Tests Test 11/11/16 12:29 11/11/16 17:35 11/11/16 21:09 11/11/16 23:39 Bedside Glucose 152 68 L 77 Hemoglobin 10.5 L Hematocrit 32.0 L Test 11/12/16 04:53 11/12/16 07:00 11/12/16 08:18 Bedside Glucose 104 144 White Blood Count 11.9 #H Red Blood Count 3.04 L Hemoglobin 9.6 L Hematocrit 29.7 L Mean Corpuscular Volume 97.7 Mean Corpuscular Hemoglobin 31.6 Mean Corpuscular Hemoglobin Concent 32.3 Red Cell Distribution Width 19.5 H Platelet Count 192 Mean Platelet Volume 8.8 Neutrophils % 81.5 H Lymphocytes % 6.4 L Monocytes % 8.5 Eosinophils % 2.5 Basophils % 0.5 Nucleated Red Blood Cells % 0.0 Neutrophils # 9.7 H Lymphocytes # 0.8 Monocytes # 1.0 H Eosinophils # 0.3 Basophils # 0.1 Nucleated Red Blood Cells # 0.0 Sodium Level 133 L Potassium Level 4.8 Chloride Level 100 Carbon Dioxide Level 25 Anion Gap 13 Blood Urea Nitrogen 63 H Creatinine 3.07 H Glucose Level 125 Calcium Level 7.2 L Medications Medications Current Medications Lidocaine (Lidoderm) 1 patch DAILY TD Last administered on 11/11/16 11:25; Admin Dose 1 PATCH; Start 11/08/16 at 15:30 Acetaminophen (Tylenol Liquid) 325 mg Q4H PRN GTB MILD PAIN LEVEL 1-3; Start at 15:30 Acetaminophen (Tylenol Liquid) 650 mg Q4H PRN GTB MODERATE PAIN LEVEL 4-6 Last administered on 11/09/16 05:28; Admin Dose 650 MG; Start 11/08/16 at 15:30 Ascorbic Acid (Vitamin C) 500 mg DAILY GTB Last administered on 11/12/16 09:54 ; Admin Dose 500 MG; Start 11/09/16 at 09:00 Atorvastatin Calcium (Lipitor) 40 mg QHS GTB Last administered on 11/11/16 20: 01; Admin Dose 40 MG; Start 11/08/16 at 21:00 Carvedilol (Coreg) 3.125 mg BID GTB Last administered on 11/12/16 09:54; Admin Dose 3.125 MG; Start 11/08/16 at 21:00 Clonidine HCl (Catapres-Tts 1 Patch) 1 patch Q7D TRANSDERM Last administered on 11/08/16 18:32; Admin Dose 1 PATCH; Start 11/08/16 at 15:30 Duloxetine HCl (Cymbalta) 30 mg DAILY GTB Last administered on 11/12/16 09:53 ; Admin Dose 30 MG; Start 11/09/16 at 09:00 Fluticasone Propionate (Flonase 0.05% Nasal) 1 spray BID NASAL Last administered on 11/12/16 09:55; Admin Dose 1 SPRAY; Start 11/08/16 at 21:00 Insulin Glargine (Lantus) 10 unit DAILY SC Last administered on 11/12/16 09:57 ; Admin Dose 10 UNIT; Start 11/09/16 at 09:00 Lactobacillus Acidoph/Bulgaricus (Floranex) 1 tab DAILY GTB Last administered on 11/12/16 09:54; Admin Dose 1 TAB; Start 11/09/16 at 09:00 Nifedipine (Procardia) 30 mg BID GTB Last administered on 11/12/16 09:54; Admin Dose 30 MG; Start 11/08/16 at 21:00 Sildenafil Citrate (Revatio) 20 mg BID GTB ; Start 11/08/16 at 21:00 Zinc Sulfate (Zinc Sulfate) 220 mg DAILY GTB Last administered on 11/12/16 09: 53; Admin Dose 220 MG; Start 11/09/16 at 09:00 Vitamin B Complex/ Vitamin C (Berocca) 1 cap DAILY GTB Last administered on 09:54; Admin Dose 1 CAP; Start 11/09/16 at 09:00 Miscellaneous Information 1 ea NOTE XX ; Start 11/08/16 at 16:00 Glucose (Glutose) 15 gm Q15M PRN PO DECREASED GLUCOSE; Start 11/08/16 at 16:00 Glucose (Glutose) 22.5 gm Q15M PRN PO DECREASED GLUCOSE; Start 11/08/16 at 16: 00 Dextrose (D50w Syringe) 25 ml Q15M PRN IV DECREASED GLUCOSE; Start 11/08/16 at 16:00 Dextrose (D50w Syringe) 50 ml Q15M PRN IV DECREASED GLUCOSE; Start 11/08/16 at 16:00 Glucagon (Glucagen) 1 mg Q15M PRN IM DECREASED GLUCOSE; Start 11/08/16 at 16:00 Glucose (Glutose) 15 gm Q15M PRN BUCCAL DECREASED GLUCOSE; Start 11/08/16 at 16 :00 Acetaminophen/ Hydrocodone Bitart ([place] (5/325)) 1 tab Q4H PRN PO SEVERE PAIN 7-10 Last administered on 11/11/16 16:53; Admin Dose 1 TAB; Start 11/08/16 at 21:00 Morphine Sulfate (morphine) 2 mg Q4H PRN IV PAIN LEVEL 7-10 Last administered on 11/11/16 21:15; Admin Dose 2 MG; Start 11/09/16 at 11:00 Collagenase (Santyl) 1 applic DAILY TOP Last administered on 11/12/16 09:56; Admin Dose 1 APPLIC; Start 11/09/16 at 16:00 Lorazepam (Ativan) 1 mg Q6H PRN IV AGITATION/ANXIETY Last administered on 12:59; Admin Dose 1 MG; Start 11/09/16 at 20:30 Pantoprazole (Protonix Iv) 40 mg BID@,18 IV Last administered on 11/12/16 05 :14; Admin Dose 40 MG; Start 11/10/16 at 06:00 Sodium Phosphate (Neutra-Phos) 250 mg BID GTB Last administered on 11/12/16 09 :54; Admin Dose 250 MG; Start 11/10/16 at 09:00 Mupirocin (Bactroban) 1 applic BID TOP Last administered on 11/12/16 09:55; Admin Dose 1 APPLIC; Start 11/10/16 at 12:30 Insulin Aspart NOVOLOG *MILD* ALGORI... Q6 SC ; Start 11/11/16 at 00:00 Metronidazole (Flagyl 500 Mg (Pmx)) 100 ml @ 100 mls/hr Q8 IVPB Last administered on 11/12/16 05:14; Admin Dose 100 MLS/HR; Start 11/11/16 at 14:00 Calcium/Vitamin D (Oyster Shell/ Vit-D (500/200)) 1 tab DAILY GTB ; Start at 11:00 AIME PATTERSON MD Nov 12, 2016 11:32
--- NOTE | 2016-11-12 12:14 | CONS ---
Date/Time of Note Date/Time of Note DATE: 11/12/16 TIME: 12:12 Assessment/Plan Assessment/Plan Chief Complaint/Hosp Course - sepsis - h/o GIB - ascites - near complete collapse of RLL with LLL atelectasis, pulmonary edema - h/o severe C diff colitis in 2016 - ESRD on HD - VDRF on trach - G tueb dependence - PVD - s/p L BKA recommendations - collect two sets of blood cultures and CXR in light of borderline BP and leukocytosis today - I will review the results of paracentesis - I recommend adding renally dosed cefepime to metronidazole empirically after blood cultures are collected Problems: Consultation Date/Type/Reason Admit Date/Time Nov 08, 2016 at 10:56 Initial Consult Date 11/09/16 Type of Consultation: ID Referring Provider: GRACIE KATHLEEN 24 HR Interval Summary Subjective hx not possible: pt non-verbal (nearly non-verabl) Detailed Summary Respiratory: no complaints, other (trach) Cardiovascular: no complaints Gastrointestinal: pain (mid abdomen) Genitourinary: other (HD) Exam/Review of Systems Vital Signs Vitals Vital Signs Date Time Temp Pulse Resp B/P Pulse Ox O2 Delivery O2 Flow Rate FiO2 11/12/16 12:08 98.4 56 20 75/42 91 11/12/16 06:00 Mechanical Ventilator 11/12/16 05:26 30 Intake and Output 11/11/16 11/11/16 11/12/16 15:00 23:00 07:00 Intake Total 350 ml 100 ml Balance 350 ml 100 ml Exam Constitutional: frail, non-verbal Psych: confusion Head: atraumatic, normocephalic Eyes: nl conjunctiva, nl lids ENMT: nl external ears & nose, nl nasal mucosa & septum Neck: supple Respiratory: clear to auscultation, normal air movement Cardiovascular: nl pulses, regular rate and rhythm Gastrointestinal: tender (mid-abdomen), No distended Extremities: other (s/p L BKA), No edema Results Result Diagram: 11/12/16 0700 11/12/16 0700 Results 24 hrs Laboratory Tests Test 11/11/16 12:29 11/11/16 17:35 11/11/16 21:09 11/11/16 23:39 Bedside Glucose 152 68 L 77 Hemoglobin 10.5 L Hematocrit 32.0 L Test 11/12/16 04:53 11/12/16 07:00 11/12/16 08:18 Bedside Glucose 104 144 White Blood Count 11.9 #H Red Blood Count 3.04 L Hemoglobin 9.6 L Hematocrit 29.7 L Mean Corpuscular Volume 97.7 Mean Corpuscular Hemoglobin 31.6 Mean Corpuscular Hemoglobin Concent 32.3 Red Cell Distribution Width 19.5 H Platelet Count 192 Mean Platelet Volume 8.8 Neutrophils % 81.5 H Lymphocytes % 6.4 L Monocytes % 8.5 Eosinophils % 2.5 Basophils % 0.5 Nucleated Red Blood Cells % 0.0 Neutrophils # 9.7 H Lymphocytes # 0.8 Monocytes # 1.0 H Eosinophils # 0.3 Basophils # 0.1 Nucleated Red Blood Cells # 0.0 Sodium Level 133 L Potassium Level 4.8 Chloride Level 100 Carbon Dioxide Level 25 Anion Gap 13 Blood Urea Nitrogen 63 H Creatinine 3.07 H Glucose Level 125 Calcium Level 7.2 L Medications Medications Current Medications Lidocaine (Lidoderm) 1 patch DAILY TD Last administered on 11/11/16 11:25; Admin Dose 1 PATCH; Start 11/08/16 at 15:30 Acetaminophen (Tylenol Liquid) 325 mg Q4H PRN GTB MILD PAIN LEVEL 1-3; Start at 15:30 Acetaminophen (Tylenol Liquid) 650 mg Q4H PRN GTB MODERATE PAIN LEVEL 4-6 Last administered on 11/09/16 05:28; Admin Dose 650 MG; Start 11/08/16 at 15:30 Ascorbic Acid (Vitamin C) 500 mg DAILY GTB Last administered on 11/12/16 09:54 ; Admin Dose 500 MG; Start 11/09/16 at 09:00 Atorvastatin Calcium (Lipitor) 40 mg QHS GTB Last administered on 11/11/16 20: 01; Admin Dose 40 MG; Start 11/08/16 at 21:00 Carvedilol (Coreg) 3.125 mg BID GTB Last administered on 11/12/16 09:54; Admin Dose 3.125 MG; Start 11/08/16 at 21:00 Clonidine HCl (Catapres-Tts 1 Patch) 1 patch Q7D TRANSDERM Last administered on 11/08/16 18:32; Admin Dose 1 PATCH; Start 11/08/16 at 15:30 Duloxetine HCl (Cymbalta) 30 mg DAILY GTB Last administered on 11/12/16 09:53 ; Admin Dose 30 MG; Start 11/09/16 at 09:00 Fluticasone Propionate (Flonase 0.05% Nasal) 1 spray BID NASAL Last administered on 11/12/16 09:55; Admin Dose 1 SPRAY; Start 11/08/16 at 21:00 Insulin Glargine (Lantus) 10 unit DAILY SC Last administered on 11/12/16 09:57 ; Admin Dose 10 UNIT; Start 11/09/16 at 09:00 Lactobacillus Acidoph/Bulgaricus (Floranex) 1 tab DAILY GTB Last administered on 11/12/16 09:54; Admin Dose 1 TAB; Start 11/09/16 at 09:00 Nifedipine (Procardia) 30 mg BID GTB Last administered on 11/12/16 09:54; Admin Dose 30 MG; Start 11/08/16 at 21:00 Sildenafil Citrate (Revatio) 20 mg BID GTB ; Start 11/08/16 at 21:00 Zinc Sulfate (Zinc Sulfate) 220 mg DAILY GTB Last administered on 11/12/16 09: 53; Admin Dose 220 MG; Start 11/09/16 at 09:00 Vitamin B Complex/ Vitamin C (Berocca) 1 cap DAILY GTB Last administered on 09:54; Admin Dose 1 CAP; Start 11/09/16 at 09:00 Miscellaneous Information 1 ea NOTE XX ; Start 11/08/16 at 16:00 Glucose (Glutose) 15 gm Q15M PRN PO DECREASED GLUCOSE; Start 11/08/16 at 16:00 Glucose (Glutose) 22.5 gm Q15M PRN PO DECREASED GLUCOSE; Start 11/08/16 at 16: 00 Dextrose (D50w Syringe) 25 ml Q15M PRN IV DECREASED GLUCOSE; Start 11/08/16 at 16:00 Dextrose (D50w Syringe) 50 ml Q15M PRN IV DECREASED GLUCOSE; Start 11/08/16 at 16:00 Glucagon (Glucagen) 1 mg Q15M PRN IM DECREASED GLUCOSE; Start 11/08/16 at 16:00 Glucose (Glutose) 15 gm Q15M PRN BUCCAL DECREASED GLUCOSE; Start 11/08/16 at 16 :00 Acetaminophen/ Hydrocodone Bitart ([place] (5/325)) 1 tab Q4H PRN PO SEVERE PAIN 7-10 Last administered on 11/11/16 16:53; Admin Dose 1 TAB; Start 11/08/16 at 21:00 Morphine Sulfate (morphine) 2 mg Q4H PRN IV PAIN LEVEL 7-10 Last administered on 11/11/16 21:15; Admin Dose 2 MG; Start 11/09/16 at 11:00 Collagenase (Santyl) 1 applic DAILY TOP Last administered on 11/12/16 09:56; Admin Dose 1 APPLIC; Start 11/09/16 at 16:00 Lorazepam (Ativan) 1 mg Q6H PRN IV AGITATION/ANXIETY Last administered on 12:59; Admin Dose 1 MG; Start 11/09/16 at 20:30 Pantoprazole (Protonix Iv) 40 mg BID@06,18 IV Last administered on 11/12/16 05 :14; Admin Dose 40 MG; Start 11/10/16 at 06:00 Sodium Phosphate (Neutra-Phos) 250 mg BID GTB Last administered on 11/12/16 09 :54; Admin Dose 250 MG; Start 11/10/16 at 09:00 Mupirocin (Bactroban) 1 applic BID TOP Last administered on 11/12/16 09:55; Admin Dose 1 APPLIC; Start 11/10/16 at 12:30 Insulin Aspart NOVOLOG *MILD* ALGORI... Q6 SC ; Start 11/11/16 at 00:00 Metronidazole (Flagyl 500 Mg (Pmx)) 100 ml @ 100 mls/hr Q8 IVPB Last administered on 11/12/16 05:14; Admin Dose 100 MLS/HR; Start 11/11/16 at 14:00 Calcium/Vitamin D (Oyster Shell/ Vit-D (500/200)) 1 tab DAILY GTB ; Start at 11:00 SADIA LONDON M.D. Nov 12, 2016 12:14
[2016-11-12] MEDS: SILDENAFIL 20 MG TAB GTB SCH ×2 (13:51→21:00)
[2016-11-12] MEDS: LIDOCAINE 5% PATCH TD SCH (13:53)
[2016-11-12] MEDS ORDERED: CEFEPIME HCL 1 GM VIAL IV SCH (14:00)
--- NOTE | 2016-11-12 15:24 | CONS ---
Date/Time of Note Date/Time of Note DATE: 11/12/16 TIME: 15:22 Assessment/Plan Assessment/Plan Additional Assessment/Plan Paroxysmal atrial tachycardia Possible GI bleed Respiratory failure status post tracheostomy Diastolic congestive heart failure End-stage renal disease on hemodialysis CAD with history of PCI Diabetes Peripheral arterial disease with history of amputation Pulmonary hypertension Hypotension -Blood pressure has decreased since hemodialysis today. Would have holding parameters on antihypertensive medications. If not better, would consider fluid bolus. Consultation Date/Type/Reason Admit Date/Time Nov 08, 2016 at 10:56 Initial Consult Date 11/09/16 Type of Consultation: cv Referring Provider: GRACIE KATHLEEN 24 HR Interval Summary Free Text/Dictation Patient seen and examined. Hypotension noted after hemodialysis. Patient denies chest pain or shortness of breath Exam/Review of Systems Vital Signs Vitals Vital Signs Date Time Temp Pulse Resp B/P Pulse Ox O2 Delivery O2 Flow Rate FiO2 11/12/16 15:10 87 14 97 30 11/12/16 12:08 98.4 75/42 11/12/16 06:00 Mechanical Ventilator Intake and Output 11/11/16 11/11/16 11/12/16 14:59 22:59 06:59 Intake Total 350 ml 100 ml Balance 350 ml 100 ml Exam Follows commands, no apparent distress Constitutional: alert Head: normocephalic Neck: other (Tracheostomy) Respiratory: other (Coarse breath sounds bilaterally, no wheezing) Cardiovascular: other (S1-S2 heard), regular rate and rhythm Gastrointestinal: bowel sounds, non-tender, other (No guarding), soft Extremities: edema (Trace), other (No cyanosis) Results Result Diagram: 11/12/16 0700 11/12/16 0700 Results 24 hrs Laboratory Tests Test 11/11/16 17:35 11/11/16 21:09 11/11/16 23:39 11/12/16 04:53 Bedside Glucose 68 L 77 104 Hemoglobin 10.5 L Hematocrit 32.0 L Test 11/12/16 07:00 11/12/16 08:18 11/12/16 12:26 White Blood Count 11.9 #H Red Blood Count 3.04 L Hemoglobin 9.6 L Hematocrit 29.7 L Mean Corpuscular Volume 97.7 Mean Corpuscular Hemoglobin 31.6 Mean Corpuscular Hemoglobin Concent 32.3 Red Cell Distribution Width 19.5 H Platelet Count 192 Mean Platelet Volume 8.8 Neutrophils % 81.5 H Lymphocytes % 6.4 L Monocytes % 8.5 Eosinophils % 2.5 Basophils % 0.5 Nucleated Red Blood Cells % 0.0 Neutrophils # 9.7 H Lymphocytes # 0.8 Monocytes # 1.0 H Eosinophils # 0.3 Basophils # 0.1 Nucleated Red Blood Cells # 0.0 Sodium Level 133 L Potassium Level 4.8 Chloride Level 100 Carbon Dioxide Level 25 Anion Gap 13 Blood Urea Nitrogen 63 H Creatinine 3.07 H Glucose Level 125 Calcium Level 7.2 L Bedside Glucose 144 171 Medications Medications Current Medications Lidocaine (Lidoderm) 1 patch DAILY TD Last administered on 11/12/16 13:53; Admin Dose 1 PATCH; Start 11/08/16 at 15:30 Acetaminophen (Tylenol Liquid) 325 mg Q4H PRN GTB MILD PAIN LEVEL 1-3; Start at 15:30 Acetaminophen (Tylenol Liquid) 650 mg Q4H PRN GTB MODERATE PAIN LEVEL 4-6 Last administered on 11/09/16 05:28; Admin Dose 650 MG; Start 11/08/16 at 15:30 Ascorbic Acid (Vitamin C) 500 mg DAILY GTB Last administered on 11/12/16 09:54 ; Admin Dose 500 MG; Start 11/09/16 at 09:00 Atorvastatin Calcium (Lipitor) 40 mg QHS GTB Last administered on 11/11/16 20: 01; Admin Dose 40 MG; Start 11/08/16 at 21:00 Carvedilol (Coreg) 3.125 mg BID GTB Last administered on 11/12/16 09:54; Admin Dose 3.125 MG; Start 11/08/16 at 21:00 Clonidine HCl (Catapres-Tts 1 Patch) 1 patch Q7D TRANSDERM Last administered on 11/08/16 18:32; Admin Dose 1 PATCH; Start 11/08/16 at 15:30 Duloxetine HCl (Cymbalta) 30 mg DAILY GTB Last administered on 11/12/16 09:53 ; Admin Dose 30 MG; Start 11/09/16 at 09:00 Fluticasone Propionate (Flonase 0.05% Nasal) 1 spray BID NASAL Last administered on 11/12/16 09:55; Admin Dose 1 SPRAY; Start 11/08/16 at 21:00 Insulin Glargine (Lantus) 10 unit DAILY SC Last administered on 11/12/16 09:57 ; Admin Dose 10 UNIT; Start 11/09/16 at 09:00 Lactobacillus Acidoph/Bulgaricus (Floranex) 1 tab DAILY GTB Last administered on 11/12/16 09:54; Admin Dose 1 TAB; Start 11/09/16 at 09:00 Nifedipine (Procardia) 30 mg BID GTB Last administered on 11/12/16 09:54; Admin Dose 30 MG; Start 11/08/16 at 21:00 Sildenafil Citrate (Revatio) 20 mg BID GTB ; Start 11/08/16 at 21:00 Zinc Sulfate (Zinc Sulfate) 220 mg DAILY GTB Last administered on 11/12/16 09: 53; Admin Dose 220 MG; Start 11/09/16 at 09:00 Vitamin B Complex/ Vitamin C (Berocca) 1 cap DAILY GTB Last administered on 09:54; Admin Dose 1 CAP; Start 11/09/16 at 09:00 Miscellaneous Information 1 ea NOTE XX ; Start 11/08/16 at 16:00 Glucose (Glutose) 15 gm Q15M PRN PO DECREASED GLUCOSE; Start 11/08/16 at 16:00 Glucose (Glutose) 22.5 gm Q15M PRN PO DECREASED GLUCOSE; Start 11/08/16 at 16: 00 Dextrose (D50w Syringe) 25 ml Q15M PRN IV DECREASED GLUCOSE; Start 11/08/16 at 16:00 Dextrose (D50w Syringe) 50 ml Q15M PRN IV DECREASED GLUCOSE; Start 11/08/16 at 16:00 Glucagon (Glucagen) 1 mg Q15M PRN IM DECREASED GLUCOSE; Start 11/08/16 at 16:00 Glucose (Glutose) 15 gm Q15M PRN BUCCAL DECREASED GLUCOSE; Start 11/08/16 at 16 :00 Acetaminophen/ Hydrocodone Bitart ([place] (5/325)) 1 tab Q4H PRN PO SEVERE PAIN 7-10 Last administered on 11/11/16 16:53; Admin Dose 1 TAB; Start 11/08/16 at 21:00 Morphine Sulfate (morphine) 2 mg Q4H PRN IV PAIN LEVEL 7-10 Last administered on 11/11/16 21:15; Admin Dose 2 MG; Start 11/09/16 at 11:00 Collagenase (Santyl) 1 applic DAILY TOP Last administered on 11/12/16 09:56; Admin Dose 1 APPLIC; Start 11/09/16 at 16:00 Lorazepam (Ativan) 1 mg Q6H PRN IV AGITATION/ANXIETY Last administered on 12:59; Admin Dose 1 MG; Start 11/09/16 at 20:30 Pantoprazole (Protonix Iv) 40 mg BID@06,18 IV Last administered on 11/12/16 05 :14; Admin Dose 40 MG; Start 11/10/16 at 06:00 Sodium Phosphate (Neutra-Phos) 250 mg BID GTB Last administered on 11/12/16 09 :54; Admin Dose 250 MG; Start 11/10/16 at 09:00 Mupirocin (Bactroban) 1 applic BID TOP Last administered on 11/12/16 09:55; Admin Dose 1 APPLIC; Start 11/10/16 at 12:30 Insulin Aspart NOVOLOG *MILD* ALGORI... Q6 SC Last administered on 11/12/16 12 :33; Admin Dose 1 UNIT; Start 11/11/16 at 00:00 Metronidazole (Flagyl 500 Mg (Pmx)) 100 ml @ 100 mls/hr Q8 IVPB Last administered on 11/12/16 13:53; Admin Dose 100 MLS/HR; Start 11/11/16 at 14:00 Calcium/Vitamin D 1 tab 1 tab DAILY GTB Last administered on 11/12/16 09:45; Admin Dose 1 TAB; Start 11/12/16 at 11:00 Cefepime HCl/ Sodium Chloride (Maxipime/NS) 50 ml @ 100 mls/hr Q24H IVPB ; Start 11/12/16 at 14:00 Solo Leon DO Nov 12, 2016 15:24
--- NOTE | 2016-11-12 15:27 | PN ---
Date/Time of Note Date/Time of Note DATE: 11/12/16 TIME: 15:23 Assessment/Plan VTE Prophylaxis VTE Prophylaxis Intervention: SCD's Lines/C[facility]ters [facility] [facility] Urinary Cath still in place: No Assessment/Plan Chief Complaint/Hosp Course Assessment/Plan - Esophagitis per EGD. Continue Protonix Dr. Hernandez is following in gastroenterology consultation. - Anemia of chronic disease, on Epogen, continue to monitor hemoglobin and hematocrit, transfuse as needed. - Ascites, pending paracentesis, on antibiotics for possible SBP. - Systemic inflammatory response syndrome with leukocytosis, patient is followed by Dr. Benjamin deluna in infection disease consultation. - End-stage renal disease, hemodialysis dependent. Continue hemodialysis per nephrology. - Chronic respiratory failure with tracheostomy. Dr. Sahu is following in pulmonology consultation. - Coronary artery disease with history of PCI. - Diastolic congestive heart failure -Pulmonary hypertension - Peripheral vascular disease, status post left BKA. - Diabetes mellitus type 2, continue NovoLog per sliding scale. -Sacral decub present on admission Problems: Exam/Review of Systems Vital Signs Vitals Vital Signs Date Time Temp Pulse Resp B/P Pulse Ox O2 Delivery O2 Flow Rate FiO2 11/12/16 15:10 87 14 97 30 11/12/16 12:08 98.4 75/42 11/12/16 06:00 Mechanical Ventilator Intake and Output 11/11/16 11/11/16 11/12/16 15:00 23:00 07:00 Intake Total 350 ml 100 ml Balance 350 ml 100 ml Exam GENERAL: Well-developed, well-nourished male, currently on vent support. HEENT: Head is atraumatic, normocephalic. PERRLA. NECK: Supple. Tracheostomy at the base of the neck. LUNGS: Slightly diminished at the bases. Clear in the upper lobes. HEART: Normal S1, S2. No murmurs, gallops, clicks, rubs noted. ABDOMEN: Protuberant, soft, nondistended, nontender. G-tube in place. EXTREMITIES: The patient is status post left BKA. Right lower extremity with mild edema. The patient has a left upper extremity arteriovenous fistula with palpable thrill and audible bruit. SKIN: No rash, petechiae noted. Sacral decubitus ulcer. NEUROLOGIC: The patient is awake, alert. Results Result Diagram: 11/12/16 0700 11/12/16 0700 Results 24 hrs Laboratory Tests Test 11/11/16 17:35 11/11/16 21:09 11/11/16 23:39 11/12/16 04:53 Bedside Glucose 68 L 77 104 Hemoglobin 10.5 L Hematocrit 32.0 L Test 11/12/16 07:00 11/12/16 08:18 11/12/16 12:26 White Blood Count 11.9 #H Red Blood Count 3.04 L Hemoglobin 9.6 L Hematocrit 29.7 L Mean Corpuscular Volume 97.7 Mean Corpuscular Hemoglobin 31.6 Mean Corpuscular Hemoglobin Concent 32.3 Red Cell Distribution Width 19.5 H Platelet Count 192 Mean Platelet Volume 8.8 Neutrophils % 81.5 H Lymphocytes % 6.4 L Monocytes % 8.5 Eosinophils % 2.5 Basophils % 0.5 Nucleated Red Blood Cells % 0.0 Neutrophils # 9.7 H Lymphocytes # 0.8 Monocytes # 1.0 H Eosinophils # 0.3 Basophils # 0.1 Nucleated Red Blood Cells # 0.0 Sodium Level 133 L Potassium Level 4.8 Chloride Level 100 Carbon Dioxide Level 25 Anion Gap 13 Blood Urea Nitrogen 63 H Creatinine 3.07 H Glucose Level 125 Calcium Level 7.2 L Bedside Glucose 144 171 Medications Medications Current Medications Lidocaine (Lidoderm) 1 patch DAILY TD Last administered on 11/12/16 13:53; Admin Dose 1 PATCH; Start 11/08/16 at 15:30 Acetaminophen (Tylenol Liquid) 325 mg Q4H PRN GTB MILD PAIN LEVEL 1-3; Start at 15:30 Acetaminophen (Tylenol Liquid) 650 mg Q4H PRN GTB MODERATE PAIN LEVEL 4-6 Last administered on 11/09/16 05:28; Admin Dose 650 MG; Start 11/08/16 at 15:30 Ascorbic Acid (Vitamin C) 500 mg DAILY GTB Last administered on 11/12/16 09:54 ; Admin Dose 500 MG; Start 11/09/16 at 09:00 Atorvastatin Calcium (Lipitor) 40 mg QHS GTB Last administered on 11/11/16 20: 01; Admin Dose 40 MG; Start 11/08/16 at 21:00 Carvedilol (Coreg) 3.125 mg BID GTB Last administered on 11/12/16 09:54; Admin Dose 3.125 MG; Start 11/08/16 at 21:00 Clonidine HCl (Catapres-Tts 1 Patch) 1 patch Q7D TRANSDERM Last administered on 11/08/16 18:32; Admin Dose 1 PATCH; Start 11/08/16 at 15:30 Duloxetine HCl (Cymbalta) 30 mg DAILY GTB Last administered on 11/12/16 09:53 ; Admin Dose 30 MG; Start 11/09/16 at 09:00 Fluticasone Propionate (Flonase 0.05% Nasal) 1 spray BID NASAL Last administered on 11/12/16 09:55; Admin Dose 1 SPRAY; Start 11/08/16 at 21:00 Insulin Glargine (Lantus) 10 unit DAILY SC Last administered on 11/12/16 09:57 ; Admin Dose 10 UNIT; Start 11/09/16 at 09:00 Lactobacillus Acidoph/Bulgaricus (Floranex) 1 tab DAILY GTB Last administered on 11/12/16 09:54; Admin Dose 1 TAB; Start 11/09/16 at 09:00 Nifedipine (Procardia) 30 mg BID GTB Last administered on 11/12/16 09:54; Admin Dose 30 MG; Start 11/08/16 at 21:00 Sildenafil Citrate (Revatio) 20 mg BID GTB ; Start 11/08/16 at 21:00 Zinc Sulfate (Zinc Sulfate) 220 mg DAILY GTB Last administered on 11/12/16 09: 53; Admin Dose 220 MG; Start 11/09/16 at 09:00 Vitamin B Complex/ Vitamin C (Berocca) 1 cap DAILY GTB Last administered on 09:54; Admin Dose 1 CAP; Start 11/09/16 at 09:00 Miscellaneous Information 1 ea NOTE XX ; Start 11/08/16 at 16:00 Glucose (Glutose) 15 gm Q15M PRN PO DECREASED GLUCOSE; Start 11/08/16 at 16:00 Glucose (Glutose) 22.5 gm Q15M PRN PO DECREASED GLUCOSE; Start 11/08/16 at 16: 00 Dextrose (D50w Syringe) 25 ml Q15M PRN IV DECREASED GLUCOSE; Start 11/08/16 at 16:00 Dextrose (D50w Syringe) 50 ml Q15M PRN IV DECREASED GLUCOSE; Start 11/08/16 at 16:00 Glucagon (Glucagen) 1 mg Q15M PRN IM DECREASED GLUCOSE; Start 11/08/16 at 16:00 Glucose (Glutose) 15 gm Q15M PRN BUCCAL DECREASED GLUCOSE; Start 11/08/16 at 16 :00 Acetaminophen/ Hydrocodone Bitart ([place] (5/325)) 1 tab Q4H PRN PO SEVERE PAIN 7-10 Last administered on 11/11/16 16:53; Admin Dose 1 TAB; Start 11/08/16 at 21:00 Morphine Sulfate (morphine) 2 mg Q4H PRN IV PAIN LEVEL 7-10 Last administered on 11/11/16 21:15; Admin Dose 2 MG; Start 11/09/16 at 11:00 Collagenase (Santyl) 1 applic DAILY TOP Last administered on 11/12/16 09:56; Admin Dose 1 APPLIC; Start 11/09/16 at 16:00 Lorazepam (Ativan) 1 mg Q6H PRN IV AGITATION/ANXIETY Last administered on 12:59; Admin Dose 1 MG; Start 11/09/16 at 20:30 Pantoprazole (Protonix Iv) 40 mg BID@06,18 IV Last administered on 11/12/16 05 :14; Admin Dose 40 MG; Start 11/10/16 at 06:00 Sodium Phosphate (Neutra-Phos) 250 mg BID GTB Last administered on 11/12/16 09 :54; Admin Dose 250 MG; Start 11/10/16 at 09:00 Mupirocin (Bactroban) 1 applic BID TOP Last administered on 11/12/16 09:55; Admin Dose 1 APPLIC; Start 11/10/16 at 12:30 Insulin Aspart NOVOLOG *MILD* ALGORI... Q6 SC Last administered on 11/12/16 12 :33; Admin Dose 1 UNIT; Start 11/11/16 at 00:00 Metronidazole (Flagyl 500 Mg (Pmx)) 100 ml @ 100 mls/hr Q8 IVPB Last administered on 11/12/16 13:53; Admin Dose 100 MLS/HR; Start 11/11/16 at 14:00 Calcium/Vitamin D 1 tab 1 tab DAILY GTB Last administered on 3/27/17at 09:45; Admin Dose 1 TAB; Start 11/12/16 at 11:00 Cefepime HCl/ Sodium Chloride (Maxipime/NS) 50 ml @ 100 mls/hr Q24H IVPB ; Start 11/12/16 at 14:00 MARY DOMINGUEZ Nov 12, 2016 15:27
--- NOTE | 2016-11-12 16:34 | RADRPT ---
PROCEDURE: XR Chest. CLINICAL INDICATION: Shortness of breath. TECHNIQUE: Single frontal view. COMPARISON: 11/08/2016. FINDINGS: The tracheostomy tube is in satisfactory position. There is air space and interstitial disease bila terally in the mid and lower lung zones consistent with bilateral pneumonia or pulmonary edema, unch anged. There are low lung volumes and elevation of the right hemidiaphragm, unchanged. The heart is enlarged. There is no pleural effusion. There is no pneumothorax. IMPRESSION: 1. No change from 11/08/2016. RPTAT: QQ .Luca Hopkins MD, MD Date Time Electronically viewed and signed by .Luca Hopkins MD, MD on 11/12/2016 16:34 .R/
--- NOTE | 2016-11-12 16:48 | CONS ---
Date/Time of Note Date/Time of Note DATE: 11/12/16 TIME: 16:45 Consult Date/Type/Reason Admit Date/Time Nov 08, 2016 at 10:56 Initial Consult Date 11/09/16 Type of Consultation: pulmonary Ordering Provider: GRACIE KATHLEEN Subjective Patient continues hemodialysis this morning Continues mechanical ventilation Currently hemodynamically stable Objective Vital Signs Date Time Temp Pulse Resp B/P Pulse Ox O2 Delivery O2 Flow Rate FiO2 11/12/16 16:40 87 11/12/16 15:45 98.4 20 96/54 98 11/12/16 15:10 30 11/12/16 06:00 Mechanical Ventilator Intake and Output 11/11/16 11/11/16 11/12/16 15:00 23:00 07:00 Intake Total 350 ml 100 ml Balance 350 ml 100 ml Exam PHYSICAL EXAMINATION GENERAL: Elderly gentleman, on mechanical ventilation VITAL SIGNS: see below. HEENT: Pupils equal, round, and reactive to light. Tracheostomy site clean and intact. CARDIAC: S1, S2, CHEST: Diminished air entry bilaterally. ABDOMEN: Mildly distended. No bowel sounds. EXTREMITIES: No cyanosis, clubbing edema +1 NEUROLOGIC: No focal deficits. Results/Medications Result Diagram: 11/12/16 0700 11/12/16 0700 Results 24 hrs Laboratory Tests Test 11/11/16 17:35 11/11/16 21:09 11/11/16 23:39 11/12/16 04:53 Bedside Glucose 68 L 77 104 Hemoglobin 10.5 L Hematocrit 32.0 L Test 11/12/16 07:00 11/12/16 08:18 11/12/16 12:26 White Blood Count 11.9 #H Red Blood Count 3.04 L Hemoglobin 9.6 L Hematocrit 29.7 L Mean Corpuscular Volume 97.7 Mean Corpuscular Hemoglobin 31.6 Mean Corpuscular Hemoglobin Concent 32.3 Red Cell Distribution Width 19.5 H Platelet Count 192 Mean Platelet Volume 8.8 Neutrophils % 81.5 H Lymphocytes % 6.4 L Monocytes % 8.5 Eosinophils % 2.5 Basophils % 0.5 Nucleated Red Blood Cells % 0.0 Neutrophils # 9.7 H Lymphocytes # 0.8 Monocytes # 1.0 H Eosinophils # 0.3 Basophils # 0.1 Nucleated Red Blood Cells # 0.0 Sodium Level 133 L Potassium Level 4.8 Chloride Level 100 Carbon Dioxide Level 25 Anion Gap 13 Blood Urea Nitrogen 63 H Creatinine 3.07 H Glucose Level 125 Calcium Level 7.2 L Bedside Glucose 144 171 Medications Current Medications Lidocaine (Lidoderm) 1 patch DAILY TD Last administered on 11/12/16 13:53; Admin Dose 1 PATCH; Start 11/08/16 at 15:30 Acetaminophen (Tylenol Liquid) 325 mg Q4H PRN GTB MILD PAIN LEVEL 1-3; Start at 15:30 Acetaminophen (Tylenol Liquid) 650 mg Q4H PRN GTB MODERATE PAIN LEVEL 4-6 Last administered on 11/09/16 05:28; Admin Dose 650 MG; Start 11/08/16 at 15:30 Ascorbic Acid (Vitamin C) 500 mg DAILY GTB Last administered on 11/12/16 09:54 ; Admin Dose 500 MG; Start 11/09/16 at 09:00 Atorvastatin Calcium (Lipitor) 40 mg QHS GTB Last administered on 11/11/16 20: 01; Admin Dose 40 MG; Start 11/08/16 at 21:00 Carvedilol (Coreg) 3.125 mg BID GTB Last administered on 11/12/16 09:54; Admin Dose 3.125 MG; Start 11/08/16 at 21:00 Clonidine HCl (Catapres-Tts 1 Patch) 1 patch Q7D TRANSDERM Last administered on 11/08/16 18:32; Admin Dose 1 PATCH; Start 11/08/16 at 15:30 Duloxetine HCl (Cymbalta) 30 mg DAILY GTB Last administered on 11/12/16 09:53 ; Admin Dose 30 MG; Start 11/09/16 at 09:00 Fluticasone Propionate (Flonase 0.05% Nasal) 1 spray BID NASAL Last administered on 11/12/16 09:55; Admin Dose 1 SPRAY; Start 11/08/16 at 21:00 Insulin Glargine (Lantus) 10 unit DAILY SC Last administered on 11/12/16 09:57 ; Admin Dose 10 UNIT; Start 11/09/16 at 09:00 Lactobacillus Acidoph/Bulgaricus (Floranex) 1 tab DAILY GTB Last administered on 11/12/16 09:54; Admin Dose 1 TAB; Start 11/09/16 at 09:00 Nifedipine (Procardia) 30 mg BID GTB Last administered on 11/12/16 09:54; Admin Dose 30 MG; Start 11/08/16 at 21:00 Sildenafil Citrate (Revatio) 20 mg BID GTB ; Start 11/08/16 at 21:00 Zinc Sulfate (Zinc Sulfate) 220 mg DAILY GTB Last administered on 11/12/16 09: 53; Admin Dose 220 MG; Start 11/09/16 at 09:00 Vitamin B Complex/ Vitamin C (Berocca) 1 cap DAILY GTB Last administered on 09:54; Admin Dose 1 CAP; Start 11/09/16 at 09:00 Miscellaneous Information 1 ea NOTE XX ; Start 11/08/16 at 16:00 Glucose (Glutose) 15 gm Q15M PRN PO DECREASED GLUCOSE; Start 11/08/16 at 16:00 Glucose (Glutose) 22.5 gm Q15M PRN PO DECREASED GLUCOSE; Start 11/08/16 at 16: 00 Dextrose (D50w Syringe) 25 ml Q15M PRN IV DECREASED GLUCOSE; Start 11/08/16 at 16:00 Dextrose (D50w Syringe) 50 ml Q15M PRN IV DECREASED GLUCOSE; Start 11/08/16 at 16:00 Glucagon (Glucagen) 1 mg Q15M PRN IM DECREASED GLUCOSE; Start 11/08/16 at 16:00 Glucose (Glutose) 15 gm Q15M PRN BUCCAL DECREASED GLUCOSE; Start 11/08/16 at 16 :00 Acetaminophen/ Hydrocodone Bitart ([place] (5/325)) 1 tab Q4H PRN PO SEVERE PAIN 7-10 Last administered on 11/11/16 16:53; Admin Dose 1 TAB; Start 11/08/16 at 21:00 Morphine Sulfate (morphine) 2 mg Q4H PRN IV PAIN LEVEL 7-10 Last administered on 11/11/16 21:15; Admin Dose 2 MG; Start 11/09/16 at 11:00 Collagenase (Santyl) 1 applic DAILY TOP Last administered on 11/12/16 09:56; Admin Dose 1 APPLIC; Start 11/09/16 at 16:00 Lorazepam (Ativan) 1 mg Q6H PRN IV AGITATION/ANXIETY Last administered on 12:59; Admin Dose 1 MG; Start 11/09/16 at 20:30 Pantoprazole (Protonix Iv) 40 mg BID@06,18 IV Last administered on 11/12/16 05 :14; Admin Dose 40 MG; Start 11/10/16 at 06:00 Sodium Phosphate (Neutra-Phos) 250 mg BID GTB Last administered on 11/12/16 09 :54; Admin Dose 250 MG; Start 11/10/16 at 09:00 Mupirocin (Bactroban) 1 applic BID TOP Last administered on 11/12/16 09:55; Admin Dose 1 APPLIC; Start 11/10/16 at 12:30 Insulin Aspart NOVOLOG *MILD* ALGORI... Q6 SC Last administered on 11/12/16 12 :33; Admin Dose 1 UNIT; Start 11/11/16 at 00:00 Metronidazole (Flagyl 500 Mg (Pmx)) 100 ml @ 100 mls/hr Q8 IVPB Last administered on 11/12/16 13:53; Admin Dose 100 MLS/HR; Start 11/11/16 at 14:00 Calcium/Vitamin D 1 tab 1 tab DAILY GTB Last administered on 11/12/16 09:45; Admin Dose 1 TAB; Start 11/12/16 at 11:00 Cefepime HCl/ Sodium Chloride (Maxipime/NS) 50 ml @ 100 mls/hr Q24H IVPB ; Start 11/12/16 at 14:00 Assessment/Plan Chief Complaint/Hosp Course Assessment 1. Vent dependent respiratory failure 2. End-stage renal failure on hemodialysis 3. Recent urinary tract infection with sepsis 4. Anemia of chronic disease and possibly secondary to renal dysfunction 5. Dysphagia with G-tube Plan 1. Continue mechanical ventilation 2. Tube feeding as tolerated 3. Hemodialysis per nephrology 4. Antibiotics per infectious diseases 5. DVT and GI prophylaxis Disposition Consider transfer back to senior living facility Problems: VALERIE CAMARENA [facility], [facility] Nov 12, 2016 16:48
[2016-11-12] MEDS: CEFEPIME HCL 0.5 GM in SOD CHLORIDE 0.9% 50 ML IVPB SCH (16:51)
[2016-11-12 21:19] LABS: HEMATOCRIT 30.5 % (42.0-52.0); HEMOGLOBIN 9.8 g/dl (14.0-18.0)
[2016-11-12] MEDS: ATORVASTATIN 40 MG TAB GTB SCH (21:32)
[2016-11-13] VITALS (30 sets, daily range): BP systolic 96–141; BP diastolic 43–80; PULSE 72–96; RESP 15–24
[2016-11-13] MEDS: morphine 2 MG INJ IV PRN ×5 (00:14→23:33)
[2016-11-13] MEDS: HYDROCODONE/APAP (5/325) TAB PO PRN ×2 (02:20→21:51)
[2016-11-13] MEDS: PANTOPRAZOLE 40 MG INJ IV SCH ×2 (05:59→18:09)
[2016-11-13] MEDS: metroNIDAZOLE 500 MG/NS (PMX) 100 ML IVPB SCH ×3 (05:59→21:49)
[2016-11-13] MEDS: INSULIN ASPART [NOVOLOG] 3 ML PEN SC SCH ×5 (06:00→23:09)
[2016-11-13 06:55] LABS: ADD SCAN DIFF NO
[2016-11-13 07:00] LABS: BASOPHILS % 0.5 % (0.0-2.0); EOSINOPHILS # 0.3 10^3/ul (0.0-0.5); EOSINOPHILS % 3.2 % (0.0-7.0); HEMATOCRIT 31.9 % (42.0-52.0); HEMOGLOBIN 9.8 g/dl (14.0-18.0); LYMPHOCYTES # 0.8 10^3/ul (0.8-2.9); LYMPHOCYTES % 9.2 % (15.0-51.0); MEAN CORPUSCULAR HEMOGLOBIN 30.5 pg (29.0-33.0); MEAN CORPUSCULAR HGB CONC 30.7 g/dl (32.0-37.0); MEAN CORPUSCULAR VOLUME 99.4 fl (82.0-101.0); MEAN PLATELET VOLUME 8.9 fl (7.4-10.4); MONOCYTE # 1.1 10^3/ul (0.3-0.9); MONOCYTES % 11.9 % (0.0-11.0); NEUTROPHIL # 6.6 10^3/ul (1.6-7.5); NEUTROPHILS % 74.5 % (39.0-77.0); PLATELET COUNT 173 10^3/UL (140-415); RED BLOOD COUNT 3.21 10^6/ul (4.70-6.10); RED CELL DISTRIBUTION WIDTH 18.8 % (11.5-14.5); WHITE BLOOD COUNT 8.8 10^3/ul (4.8-10.8)
[2016-11-13 07:40] LABS: POTASSIUM 4.7 mmol/L (3.5-5.1)
[2016-11-13 07:43] LABS: CALCIUM 7.5 mg/dl (8.4-10.2); CREATININE 2.77 mg/dl (0.61-1.24)
[2016-11-13] MEDS: NIFEdipine 10 MG CAP GTB SCH ×2 (09:00→21:00)
[2016-11-13] MEDS: CALCIUM/VITAMIN D (500/200) TAB GTB SCH (10:06)
[2016-11-13] MEDS: ASCORBIC ACID 500 MG TAB GTB SCH (10:06)
[2016-11-13] MEDS: NEUTRA-PHOS 250 MG PACKET GTB SCH ×2 (10:06→21:52)
[2016-11-13] MEDS: LACTOBACILLUS CHEW TAB GTB SCH (10:06)
[2016-11-13] MEDS: VITAMIN B COMPLEX/VIT C CAP GTB SCH (10:06)
[2016-11-13] MEDS: ZINC SULFATE 220 MG CAP GTB SCH (10:06)
[2016-11-13] MEDS: DULOXETINE 30 MG CAP DR GTB SCH (10:07)
[2016-11-13] MEDS: LIDOCAINE 5% PATCH TD SCH (10:08)
[2016-11-13] MEDS: MUPIROCIN 2% 22 GM OINT TOP SCH ×2 (10:08→21:52)
[2016-11-13] MEDS: FLUTICASONE 0.05% 16 GM NAS SPRAY NASAL SCH ×2 (10:08→21:52)
[2016-11-13] MEDS: COLLAGENASE 30 GM TUBE TOP SCH (10:09)
[2016-11-13] MEDS: INSULIN GLARGINE [LANtus] 3 ML PEN SC SCH (10:30)
--- NOTE | 2016-11-13 10:56 | CONS ---
Date/Time of Note Date/Time of Note DATE: 11/13/16 TIME: 10:54 Assessment/Plan Assessment/Plan Additional Assessment/Plan Ventilator settings; AC of 14, tidal volume 550, PEEP of 5, 30% FiO2. Assessment recommendations; 1. Patient admitted for UTI and sepsis with significant clinical improvement. 2. Chronic respiratory failure, history of anoxic brain injury. 3. Patient remains ventilator dependent. Continue current treatment. Patient can be transferred to the long-term. Consultation Date/Type/Reason Admit Date/Time Nov 08, 2016 at 10:56 Initial Consult Date 11/08/16 Type of Consultation: pulmonary Referring Provider: GRACIE KATHLEEN 24 HR Interval Summary Free Text/Dictation Patient condition is stable. Remains awake but does not follow any commands on account of underlying anoxic brain injury. Patient remains ventilator dependent. Has remained hemodynamically stable. General exam; elderly male, on ventilator via tracheostomy currently in no distress. Exam/Review of Systems Vital Signs Vitals Vital Signs Date Time Temp Pulse Resp B/P Pulse Ox O2 Delivery O2 Flow Rate FiO2 11/13/16 10:15 98.0 83 16 112/43 99 Mechanical Ventilator 11/13/16 05:32 30 Intake and Output 11/12/16 11/12/16 11/13/16 15:00 23:00 07:00 Intake Total 600 ml 590 ml 540 ml Output Total 500 ml 0 ml Balance 100 ml 590 ml 540 ml Exam HEENT examination; supple neck, no JVD. No lymphadenopathy. Midline trachea. Tracheostomy in place with clean insertion site. Pupils are midsize and reactive to light. No neck masses. Chest examination; clear to auscultation bilaterally. S1-S2 audible, no murmur regular rhythm. Abdomen examination; soft, nondistended. No organomegaly. G-tube in place. Bowel sounds audible. Extremity examination; no peripheral edema. There is a well-healed left below- knee ambulation. 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 Results Result Diagram: 11/13/16 0601 11/13/16 0601 Results 24 hrs Laboratory Tests Test 11/12/16 12:26 11/12/16 18:44 11/12/16 21:10 11/12/16 21:45 Bedside Glucose 171 157 129 Hemoglobin 9.8 L Hematocrit 30.5 L Test 11/13/16 06:01 11/13/16 06:04 11/13/16 07:52 White Blood Count 8.8 # Red Blood Count 3.21 L Hemoglobin 9.8 L Hematocrit 31.9 L Mean Corpuscular Volume 99.4 Mean Corpuscular Hemoglobin 30.5 Mean Corpuscular Hemoglobin Concent 30.7 L Red Cell Distribution Width 18.8 H Platelet Count 173 Mean Platelet Volume 8.9 Neutrophils % 74.5 Lymphocytes % 9.2 L Monocytes % 11.9 H Eosinophils % 3.2 Basophils % 0.5 Nucleated Red Blood Cells % 0.0 Neutrophils # 6.6 Lymphocytes # 0.8 Monocytes # 1.1 H Eosinophils # 0.3 Basophils # 0.0 Nucleated Red Blood Cells # 0.0 Sodium Level 133 L Potassium Level 4.7 Chloride Level 100 Carbon Dioxide Level 26 Anion Gap 12 Blood Urea Nitrogen 52 H Creatinine 2.77 H Glucose Level 131 Calcium Level 7.5 L Bedside Glucose 139 144 Medications Medications Current Medications Lidocaine (Lidoderm) 1 patch DAILY TD Last administered on 11/13/16 10:08; Admin Dose 1 PATCH; Start 11/08/16 at 15:30 Acetaminophen (Tylenol Liquid) 325 mg Q4H PRN GTB MILD PAIN LEVEL 1-3; Start at 15:30 Acetaminophen (Tylenol Liquid) 650 mg Q4H PRN GTB MODERATE PAIN LEVEL 4-6 Last administered on 11/09/16 05:28; Admin Dose 650 MG; Start 11/08/16 at 15:30 Ascorbic Acid (Vitamin C) 500 mg DAILY GTB Last administered on 11/13/16 10:06 ; Admin Dose 500 MG; Start 11/09/16 at 09:00 Atorvastatin Calcium (Lipitor) 40 mg QHS GTB Last administered on 11/12/16 21: 32; Admin Dose 40 MG; Start 11/08/16 at 21:00 Carvedilol (Coreg) 3.125 mg BID GTB Last administered on 11/12/16 09:54; Admin Dose 3.125 MG; Start 11/08/16 at 21:00 Clonidine HCl (Catapres-Tts 1 Patch) 1 patch Q7D TRANSDERM Last administered on 11/08/16 18:32; Admin Dose 1 PATCH; Start 11/08/16 at 15:30 Duloxetine HCl (Cymbalta) 30 mg DAILY GTB Last administered on 11/13/16 10:07 ; Admin Dose 30 MG; Start 11/09/16 at 09:00 Fluticasone Propionate (Flonase 0.05% Nasal) 1 spray BID NASAL Last administered on 11/13/16 10:08; Admin Dose 1 SPRAY; Start 11/08/16 at 21:00 Insulin Glargine (Lantus) 10 unit DAILY SC Last administered on 11/13/16 10:30 ; Admin Dose 10 UNIT; Start 11/09/16 at 09:00 Lactobacillus Acidoph/Bulgaricus (Floranex) 1 tab DAILY GTB Last administered on 11/13/16 10:06; Admin Dose 1 TAB; Start 11/09/16 at 09:00 Nifedipine (Procardia) 30 mg BID GTB Last administered on 11/12/16 09:54; Admin Dose 30 MG; Start 11/08/16 at 21:00 Sildenafil Citrate (Revatio) 20 mg BID GTB ; Start 11/08/16 at 21:00 Zinc Sulfate (Zinc Sulfate) 220 mg DAILY GTB Last administered on 11/13/16 10: 06; Admin Dose 220 MG; Start 11/09/16 at 09:00 Vitamin B Complex/ Vitamin C (Berocca) 1 cap DAILY GTB Last administered on 10:06; Admin Dose 1 CAP; Start 11/09/16 at 09:00 Miscellaneous Information 1 ea NOTE XX ; Start 11/08/16 at 16:00 Glucose (Glutose) 15 gm Q15M PRN PO DECREASED GLUCOSE; Start 11/08/16 at 16:00 Glucose (Glutose) 22.5 gm Q15M PRN PO DECREASED GLUCOSE; Start 11/08/16 at 16: 00 Dextrose (D50w Syringe) 25 ml Q15M PRN IV DECREASED GLUCOSE; Start 11/08/16 at 16:00 Dextrose (D50w Syringe) 50 ml Q15M PRN IV DECREASED GLUCOSE; Start 11/08/16 at 16:00 Glucagon (Glucagen) 1 mg Q15M PRN IM DECREASED GLUCOSE; Start 11/08/16 at 16:00 Glucose (Glutose) 15 gm Q15M PRN BUCCAL DECREASED GLUCOSE; Start 11/08/16 at 16 :00 Acetaminophen/ Hydrocodone Bitart ([place] (5/325)) 1 tab Q4H PRN PO SEVERE PAIN 7-10 Last administered on 11/13/16 02:20; Admin Dose 1 TAB; Start 11/08/16 at 21:00 Morphine Sulfate (morphine) 2 mg Q4H PRN IV PAIN LEVEL 7-10 Last administered on 11/13/16 04:42; Admin Dose 2 MG; Start 11/09/16 at 11:00 Collagenase (Santyl) 1 applic DAILY TOP Last administered on 11/13/16 10:09; Admin Dose 1 APPLIC; Start 11/09/16 at 16:00 Lorazepam (Ativan) 1 mg Q6H PRN IV AGITATION/ANXIETY Last administered on 12:59; Admin Dose 1 MG; Start 11/09/16 at 20:30 Pantoprazole (Protonix Iv) 40 mg BID@06,18 IV Last administered on 11/13/16 05 :59; Admin Dose 40 MG; Start 11/10/16 at 06:00 Sodium Phosphate (Neutra-Phos) 250 mg BID GTB Last administered on 11/13/16 10 :06; Admin Dose 250 MG; Start 11/10/16 at 09:00 Mupirocin (Bactroban) 1 applic BID TOP Last administered on 11/13/16 10:08; Admin Dose 1 APPLIC; Start 11/10/16 at 12:30 Insulin Aspart NOVOLOG *MILD* ALGORI... Q6 SC Last administered on 11/12/16 18 :54; Admin Dose 1 UNIT; Start 11/11/16 at 00:00 Metronidazole (Flagyl 500 Mg (Pmx)) 100 ml @ 100 mls/hr Q8 IVPB Last administered on 11/13/16 05:59; Admin Dose 100 MLS/HR; Start 11/11/16 at 14:00 Calcium/Vitamin D 1 tab 1 tab DAILY GTB Last administered on 11/13/16 10:06; Admin Dose 1 TAB; Start 11/12/16 at 11:00 Cefepime HCl/ Sodium Chloride (Maxipime/NS) 50 ml @ 100 mls/hr Q24H IVPB Last administered on 11/12/16 16:51; Admin Dose 100 MLS/HR; Start 11/12/16 at 14:00 ELVI BLANK 28, 2017 10:56
--- NOTE | 2016-11-13 11:36 | CONS ---
Date/Time of Note Date/Time of Note DATE: 11/13/16 TIME: 11:33 Assessment/Plan Assessment/Plan Chief Complaint/Hosp Course - sepsis - h/o GIB - ascites - near complete collapse of RLL with LLL atelectasis, pulmonary edema - h/o severe C diff colitis in 2016 - ESRD on HD - VDRF on trach - G tueb dependence - PVD - s/p L BKA - dyspnea and L sided CP recommendations - await the results of blood cultures from 11/12/2016 - I will review the results of paracentesis - RT to re-assess his secretion, suction as needed (alerted) - continue renally dosed cefepime (11/12/2016-) and metronidazole (10/14/2016-) empirically management d/w Pt, his RN and RT Problems: Consultation Date/Type/Reason Admit Date/Time Nov 08, 2016 at 10:56 Initial Consult Date 11/09/16 Type of Consultation: ID Referring Provider: GRACIE KATHLEEN Detailed Summary Respiratory: shortness of breath Cardiovascular: chest pain Gastrointestinal: pain, No nausea Genitourinary: other (anuric) Exam/Review of Systems Vital Signs Vitals Vital Signs Date Time Temp Pulse Resp B/P Pulse Ox O2 Delivery O2 Flow Rate FiO2 11/13/16 10:15 98.0 83 16 112/43 99 Mechanical Ventilator 11/13/16 05:32 30 Intake and Output 11/12/16 11/12/16 11/13/16 15:00 23:00 07:00 Intake Total 600 ml 590 ml 540 ml Output Total 500 ml 0 ml Balance 100 ml 590 ml 540 ml Exam Constitutional: distress, frail Psych: no complaints Head: atraumatic, normocephalic Eyes: nl conjunctiva, nl lids ENMT: nl external ears & nose, nl nasal mucosa & septum Neck: other (trach) Respiratory: crackles/rales Cardiovascular: nl pulses, regular rate and rhythm Gastrointestinal: distended, soft, No firm Extremities: other (s/p L BKA) Skin: nl turgor Results Result Diagram: 11/13/16 0601 11/13/16 0601 Results 24 hrs Laboratory Tests Test 11/12/16 12:26 11/12/16 18:44 11/12/16 21:10 11/12/16 21:45 Bedside Glucose 171 157 129 Hemoglobin 9.8 L Hematocrit 30.5 L Test 11/13/16 06:01 11/13/16 06:04 11/13/16 07:52 White Blood Count 8.8 # Red Blood Count 3.21 L Hemoglobin 9.8 L Hematocrit 31.9 L Mean Corpuscular Volume 99.4 Mean Corpuscular Hemoglobin 30.5 Mean Corpuscular Hemoglobin Concent 30.7 L Red Cell Distribution Width 18.8 H Platelet Count 173 Mean Platelet Volume 8.9 Neutrophils % 74.5 Lymphocytes % 9.2 L Monocytes % 11.9 H Eosinophils % 3.2 Basophils % 0.5 Nucleated Red Blood Cells % 0.0 Neutrophils # 6.6 Lymphocytes # 0.8 Monocytes # 1.1 H Eosinophils # 0.3 Basophils # 0.0 Nucleated Red Blood Cells # 0.0 Sodium Level 133 L Potassium Level 4.7 Chloride Level 100 Carbon Dioxide Level 26 Anion Gap 12 Blood Urea Nitrogen 52 H Creatinine 2.77 H Glucose Level 131 Calcium Level 7.5 L Bedside Glucose 139 144 Medications Medications Current Medications Lidocaine (Lidoderm) 1 patch DAILY TD Last administered on 11/13/16 10:08; Admin Dose 1 PATCH; Start 11/08/16 at 15:30 Acetaminophen (Tylenol Liquid) 325 mg Q4H PRN GTB MILD PAIN LEVEL 1-3; Start at 15:30 Acetaminophen (Tylenol Liquid) 650 mg Q4H PRN GTB MODERATE PAIN LEVEL 4-6 Last administered on 11/09/16 05:28; Admin Dose 650 MG; Start 11/08/16 at 15:30 Ascorbic Acid (Vitamin C) 500 mg DAILY GTB Last administered on 11/13/16 10:06 ; Admin Dose 500 MG; Start 11/09/16 at 09:00 Atorvastatin Calcium (Lipitor) 40 mg QHS GTB Last administered on 11/12/16 21: 32; Admin Dose 40 MG; Start 11/08/16 at 21:00 Carvedilol (Coreg) 3.125 mg BID GTB Last administered on 11/12/16 09:54; Admin Dose 3.125 MG; Start 11/08/16 at 21:00 Clonidine HCl (Catapres-Tts 1 Patch) 1 patch Q7D TRANSDERM Last administered on 11/08/16 18:32; Admin Dose 1 PATCH; Start 11/08/16 at 15:30 Duloxetine HCl (Cymbalta) 30 mg DAILY GTB Last administered on 11/13/16 10:07 ; Admin Dose 30 MG; Start 11/09/16 at 09:00 Fluticasone Propionate (Flonase 0.05% Nasal) 1 spray BID NASAL Last administered on 11/13/16 10:08; Admin Dose 1 SPRAY; Start 11/08/16 at 21:00 Insulin Glargine (Lantus) 10 unit DAILY SC Last administered on 11/13/16 10:30 ; Admin Dose 10 UNIT; Start 11/09/16 at 09:00 Lactobacillus Acidoph/Bulgaricus (Floranex) 1 tab DAILY GTB Last administered on 11/13/16 10:06; Admin Dose 1 TAB; Start 11/09/16 at 09:00 Nifedipine (Procardia) 30 mg BID GTB Last administered on 11/12/16 09:54; Admin Dose 30 MG; Start 11/08/16 at 21:00 Sildenafil Citrate (Revatio) 20 mg BID GTB ; Start 11/08/16 at 21:00 Zinc Sulfate (Zinc Sulfate) 220 mg DAILY GTB Last administered on 11/13/16 10: 06; Admin Dose 220 MG; Start 11/09/16 at 09:00 Vitamin B Complex/ Vitamin C (Berocca) 1 cap DAILY GTB Last administered on 10:06; Admin Dose 1 CAP; Start 11/09/16 at 09:00 Miscellaneous Information 1 ea NOTE XX ; Start 11/08/16 at 16:00 Glucose (Glutose) 15 gm Q15M PRN PO DECREASED GLUCOSE; Start 11/08/16 at 16:00 Glucose (Glutose) 22.5 gm Q15M PRN PO DECREASED GLUCOSE; Start 11/08/16 at 16: 00 Dextrose (D50w Syringe) 25 ml Q15M PRN IV DECREASED GLUCOSE; Start 11/08/16 at 16:00 Dextrose (D50w Syringe) 50 ml Q15M PRN IV DECREASED GLUCOSE; Start 11/08/16 at 16:00 Glucagon (Glucagen) 1 mg Q15M PRN IM DECREASED GLUCOSE; Start 11/08/16 at 16:00 Glucose (Glutose) 15 gm Q15M PRN BUCCAL DECREASED GLUCOSE; Start 11/08/16 at 16 :00 Acetaminophen/ Hydrocodone Bitart ([place] (5/325)) 1 tab Q4H PRN PO SEVERE PAIN 7-10 Last administered on 11/13/16 02:20; Admin Dose 1 TAB; Start 11/08/16 at 21:00 Morphine Sulfate (morphine) 2 mg Q4H PRN IV PAIN LEVEL 7-10 Last administered on 11/13/16 04:42; Admin Dose 2 MG; Start 11/09/16 at 11:00 Collagenase (Santyl) 1 applic DAILY TOP Last administered on 11/13/16 10:09; Admin Dose 1 APPLIC; Start 11/09/16 at 16:00 Lorazepam (Ativan) 1 mg Q6H PRN IV AGITATION/ANXIETY Last administered on 12:59; Admin Dose 1 MG; Start 11/09/16 at 20:30 Pantoprazole (Protonix Iv) 40 mg BID@06,18 IV Last administered on 11/13/16 05 :59; Admin Dose 40 MG; Start 11/10/16 at 06:00 Sodium Phosphate (Neutra-Phos) 250 mg BID GTB Last administered on 11/13/16 10 :06; Admin Dose 250 MG; Start 11/10/16 at 09:00 Mupirocin (Bactroban) 1 applic BID TOP Last administered on 11/13/16 10:08; Admin Dose 1 APPLIC; Start 11/10/16 at 12:30 Insulin Aspart NOVOLOG *MILD* ALGORI... Q6 SC Last administered on 11/12/16 18 :54; Admin Dose 1 UNIT; Start 11/11/16 at 00:00 Metronidazole (Flagyl 500 Mg (Pmx)) 100 ml @ 100 mls/hr Q8 IVPB Last administered on 11/13/16 05:59; Admin Dose 100 MLS/HR; Start 11/11/16 at 14:00 Calcium/Vitamin D 1 tab 1 tab DAILY GTB Last administered on 11/13/16 10:06; Admin Dose 1 TAB; Start 11/12/16 at 11:00 Cefepime HCl/ Sodium Chloride (Maxipime/NS) 50 ml @ 100 mls/hr Q24H IVPB Last administered on 11/12/16 16:51; Admin Dose 100 MLS/HR; Start 11/12/16 at 14:00 SADIA LONDON M.D. Nov 13, 2016 11:36
--- NOTE | 2016-11-13 12:23 | PN ---
DATE: SUBJECTIVE: The patient is stable, had hemodialysis yesterday with 1 liter removed. No other event s noted. No hemoptysis, hematemesis or hematochezia. OBJECTIVE: VITAL SIGNS: Temperature 96/50, respirations 20, pulse 87, temperature 98.6. HEENT: Head is normocephalic. NECK: Supple. HEART: Regular rate. LUNGS: Show diminished breath sounds at base. ABDOMEN: Soft, nontender to palpation. No rebound or guarding. EXTREMITIES: Negative for clubbing, cyanosis, no edema. The patient has left BKA noted. DERMATOLOGIC: No rashes. MUSCULOSKELETAL: No joint effusions. NEUROLOGIC: No change in exam. MEDICATIONS: The patient's medications have been reviewed. LABORATORY DATA: Shows a sodium 133, potassium 4.7, chloride 100, BUN 52, creatinine 2.77. White c ount 8.8, hemoglobin 9.8, hematocrit 31.9, platelet count 173. ASSESSMENT AND PLAN: 1. End-stage renal disease. The patient is on dialysis Saturday, Saturday, Saturday. Had hemodialysi s yesterday. Anticipate next dialysis tomorrow. 2. Anemia of chronic disease. Continue to monitor hemoglobin levels. Continue Epogen. 3. Mineral bone disorder. Continue to monitor calcium and phosphorus levels. Continue phosphate s upplementation at this time. 4. Volume overload, improved. The patient was hypotensive following hemodialysis. Will minimize u ltrafiltration on next dialysis. 5. Sepsis secondary to pneumonia. Patient is completing antibiotic course. 6. Ventilatory dependent respiratory failure. Vent settings have been reviewed. ABGs reviewed. C ontinue to monitor. 7. Dysphagia status post PEG. Continue tube feeding. 8. Coronary artery disease. Continue current medical management. 9. Diabetes. Continue Accu-Cheks and sliding scale. 10. Depression and anxiety disorder. Continue current treatment plan. 11. Hypotension. Etiology is likely hemodynamics, associated with ultrafiltration dialysis. Will minimize ultrafiltration. If patient remains hypotensive, consider gentle fluid challenge. 12. History of congestive heart failure. The patient is currently compensated. 13. Hyponatremia. Continue to limit free water intake. Dictated By: SARAHI RINALDI/OLESYA Conf#: [id number] DID#: [id number]
[2016-11-13] MEDS ORDERED: NITROGLYCERIN 2% 1 GM OINT PKT TD ONE (12:30)
[2016-11-13] MEDS: SILDENAFIL 20 MG TAB GTB SCH ×2 (14:35→21:51)
[2016-11-13] MEDS: CEFEPIME HCL 0.5 GM in SOD CHLORIDE 0.9% 50 ML IVPB SCH (16:30)
--- NOTE | 2016-11-13 18:29 | PN ---
Date/Time of Note Date/Time of Note DATE: 11/13/16 TIME: 18:26 Assessment/Plan VTE Prophylaxis VTE Prophylaxis Intervention: SCD's Lines/Catheters IV Catheter Type (from [facility]): Saline Lock Urinary Cath still in place: No Assessment/Plan Chief Complaint/Hosp Course Assessment/Plan - Esophagitis per EGD. Continue Protonix Dr. Hernandez is following in gastroenterology consultation. - Anemia of chronic disease, on Epogen, continue to monitor hemoglobin and hematocrit, transfuse as needed. - Ascites, possible SBP. Continue antibiotics per ID. - Systemic inflammatory response syndrome with leukocytosis, patient is followed by Dr. Benjamin deluna in infection disease consultation. - End-stage renal disease, hemodialysis dependent. Continue hemodialysis per nephrology. - Chronic respiratory failure with tracheostomy. Dr. Sahu is following in pulmonology consultation. - Coronary artery disease with history of PCI. - Diastolic congestive heart failure -Pulmonary hypertension - Peripheral vascular disease, status post left BKA. - Diabetes mellitus type 2, continue NovoLog per sliding scale. -Sacral decub present on admission Problems: Subjective 24 Hr Interval Summary Free Text/Dictation Patient is very agitated, however vital signs are stable, sinus rhythm on telemetry, patient tolerates G-tube feeding well. Exam/Review of Systems Vital Signs Vitals Vital Signs Date Time Temp Pulse Resp B/P Pulse Ox O2 Delivery O2 Flow Rate FiO2 11/13/16 17:09 84 97 30 11/13/16 15:27 97.7 20 102/43 11/13/16 14:31 Mechanical Ventilator Intake and Output 11/12/16 11/12/16 11/13/16 15:00 23:00 07:00 Intake Total 600 ml 590 ml 540 ml Output Total 500 ml 0 ml Balance 100 ml 590 ml 540 ml Exam GENERAL: Well-developed, well-nourished male, currently on vent support. HEENT: Head is atraumatic, normocephalic. PERRLA. NECK: Supple. Tracheostomy at the base of the neck. LUNGS: Slightly diminished at the bases. Clear in the upper lobes. HEART: Normal S1, S2. No murmurs, gallops, clicks, rubs noted. ABDOMEN: Protuberant, soft, nondistended, nontender. G-tube in place. EXTREMITIES: The patient is status post left BKA. Right lower extremity with mild edema. The patient has a left upper extremity arteriovenous fistula with palpable thrill and audible bruit. SKIN: No rash, petechiae noted. Sacral decubitus ulcer. NEUROLOGIC: The patient is awake, alert. Results Result Diagram: 11/13/16 0601 11/13/16 06 Results 24 hrs Laboratory Tests Test 11/12/16 18:44 11/12/16 21:10 11/12/16 21:45 11/13/16 06:01 Bedside Glucose 157 129 Hemoglobin 9.8 L 9.8 L Hematocrit 30.5 L 31.9 L White Blood Count 8.8 # Red Blood Count 3.21 L Mean Corpuscular Volume 99.4 Mean Corpuscular Hemoglobin 30.5 Mean Corpuscular Hemoglobin Concent 30.7 L Red Cell Distribution Width 18.8 H Platelet Count 173 Mean Platelet Volume 8.9 Neutrophils % 74.5 Lymphocytes % 9.2 L Monocytes % 11.9 H Eosinophils % 3.2 Basophils % 0.5 Nucleated Red Blood Cells % 0.0 Neutrophils # 6.6 Lymphocytes # 0.8 Monocytes # 1.1 H Eosinophils # 0.3 Basophils # 0.0 Nucleated Red Blood Cells # 0.0 Sodium Level 133 L Potassium Level 4.7 Chloride Level 100 Carbon Dioxide Level 26 Anion Gap 12 Blood Urea Nitrogen 52 H Creatinine 2.77 H Glucose Level 131 Calcium Level 7.5 L Test 11/13/16 06:04 11/13/16 07:52 11/13/16 11:37 Bedside Glucose 139 144 176 Medications Medications Current Medications Lidocaine (Lidoderm) 1 patch DAILY TD Last administered on 11/13/16 10:08; Admin Dose 1 PATCH; Start 11/08/16 at 15:30 Acetaminophen (Tylenol Liquid) 325 mg Q4H PRN GTB MILD PAIN LEVEL 1-3; Start at 15:30 Acetaminophen (Tylenol Liquid) 650 mg Q4H PRN GTB MODERATE PAIN LEVEL 4-6 Last administered on 11/09/16 05:28; Admin Dose 650 MG; Start 11/08/16 at 15:30 Ascorbic Acid (Vitamin C) 500 mg DAILY GTB Last administered on 11/13/16 10:06 ; Admin Dose 500 MG; Start 11/09/16 at 09:00 Atorvastatin Calcium (Lipitor) 40 mg QHS GTB Last administered on 11/12/16 21: 32; Admin Dose 40 MG; Start 11/08/16 at 21:00 Carvedilol (Coreg) 3.125 mg BID GTB Last administered on 11/12/16 09:54; Admin Dose 3.125 MG; Start 11/08/16 at 21:00 Clonidine HCl (Catapres-Tts 1 Patch) 1 patch Q7D TRANSDERM Last administered on 11/08/16 18:32; Admin Dose 1 PATCH; Start 11/08/16 at 15:30 Duloxetine HCl (Cymbalta) 30 mg DAILY GTB Last administered on 11/13/16 10:07 ; Admin Dose 30 MG; Start 11/09/16 at 09:00 Fluticasone Propionate (Flonase 0.05% Nasal) 1 spray BID NASAL Last administered on 11/13/16 10:08; Admin Dose 1 SPRAY; Start 11/08/16 at 21:00 Insulin Glargine (Lantus) 10 unit DAILY SC Last administered on 11/13/16 10:30 ; Admin Dose 10 UNIT; Start 11/09/16 at 09:00 Lactobacillus Acidoph/Bulgaricus (Floranex) 1 tab DAILY GTB Last administered on 11/13/16 10:06; Admin Dose 1 TAB; Start 11/09/16 at 09:00 Nifedipine (Procardia) 30 mg BID GTB Last administered on 11/12/16 09:54; Admin Dose 30 MG; Start 11/08/16 at 21:00 Sildenafil Citrate (Revatio) 20 mg BID GTB ; Start 11/08/16 at 21:00 Zinc Sulfate (Zinc Sulfate) 220 mg DAILY GTB Last administered on 11/13/16 10: 06; Admin Dose 220 MG; Start 11/09/16 at 09:00 Vitamin B Complex/ Vitamin C (Berocca) 1 cap DAILY GTB Last administered on 10:06; Admin Dose 1 CAP; Start 11/09/16 at 09:00 Miscellaneous Information 1 ea NOTE XX ; Start 11/08/16 at 16:00 Glucose (Glutose) 15 gm Q15M PRN PO DECREASED GLUCOSE; Start 11/08/16 at 16:00 Glucose (Glutose) 22.5 gm Q15M PRN PO DECREASED GLUCOSE; Start 11/08/16 at 16: 00 Dextrose (D50w Syringe) 25 ml Q15M PRN IV DECREASED GLUCOSE; Start 11/08/16 at 16:00 Dextrose (D50w Syringe) 50 ml Q15M PRN IV DECREASED GLUCOSE; Start 11/08/16 at 16:00 Glucagon (Glucagen) 1 mg Q15M PRN IM DECREASED GLUCOSE; Start 11/08/16 at 16:00 Glucose (Glutose) 15 gm Q15M PRN BUCCAL DECREASED GLUCOSE; Start 11/08/16 at 16 :00 Acetaminophen/ Hydrocodone Bitart ([place] (5/325)) 1 tab Q4H PRN PO SEVERE PAIN 7-10 Last administered on 11/13/16 02:20; Admin Dose 1 TAB; Start 11/08/16 at 21:00 Morphine Sulfate (morphine) 2 mg Q4H PRN IV PAIN LEVEL 7-10 Last administered on 11/13/16 17:21; Admin Dose 2 MG; Start 11/09/16 at 11:00 Collagenase (Santyl) 1 applic DAILY TOP Last administered on 11/13/16 10:09; Admin Dose 1 APPLIC; Start 11/09/16 at 16:00 Lorazepam (Ativan) 1 mg Q6H PRN IV AGITATION/ANXIETY Last administered on 12:59; Admin Dose 1 MG; Start 11/09/16 at 20:30 Pantoprazole (Protonix Iv) 40 mg BID@06,18 IV Last administered on 11/13/16 18 :09; Admin Dose 40 MG; Start 11/10/16 at 06:00 Sodium Phosphate (Neutra-Phos) 250 mg BID GTB Last administered on 11/13/16 10 :06; Admin Dose 250 MG; Start 11/10/16 at 09:00 Mupirocin (Bactroban) 1 applic BID TOP Last administered on 11/13/16 10:08; Admin Dose 1 APPLIC; Start 11/10/16 at 12:30 Insulin Aspart NOVOLOG *MILD* ALGORI... Q6 SC Last administered on 11/13/16 12 :43; Admin Dose 1 UNIT; Start 11/11/16 at 00:00 Metronidazole (Flagyl 500 Mg (Pmx)) 100 ml @ 100 mls/hr Q8 IVPB Last administered on 3/28/17at 14:46; Admin Dose 100 MLS/HR; Start 11/11/16 at 14:00 Calcium/Vitamin D 1 tab 1 tab DAILY GTB Last administered on 11/13/16 10:06; Admin Dose 1 TAB; Start 11/12/16 at 11:00 Cefepime HCl/ Sodium Chloride (Maxipime/NS) 50 ml @ 100 mls/hr Q24H IVPB Last administered on 11/12/16 16:51; Admin Dose 100 MLS/HR; Start 11/12/16 at 14:00 MARY DOMINGUEZ Nov 13, 2016 18:29
[2016-11-13 21:30] LABS: HEMATOCRIT 30.2 % (42.0-52.0); HEMOGLOBIN 9.7 g/dl (14.0-18.0)
[2016-11-13] MEDS: ATORVASTATIN 40 MG TAB GTB SCH (21:49)
[2016-11-14] VITALS (36 sets, daily range): BP systolic 79–120; BP diastolic 41–67; PULSE 64–106; RESP 14–20
[2016-11-14] MEDS: LORAZEPAM 2 MG INJ IV PRN (00:40)
[2016-11-14] MEDS: INSULIN ASPART [NOVOLOG] 3 ML PEN SC SCH ×4 (06:00→23:36)
[2016-11-14] MEDS: metroNIDAZOLE 500 MG/NS (PMX) 100 ML IVPB SCH ×3 (06:14→21:26)
[2016-11-14] MEDS: PANTOPRAZOLE 40 MG INJ IV SCH ×2 (06:14→17:22)
[2016-11-14] MEDS: morphine 2 MG INJ IV PRN (06:16)
[2016-11-14 06:48] LABS: ADD SCAN DIFF NO
[2016-11-14 06:59] LABS: BASOPHILS % 0.5 % (0.0-2.0); EOSINOPHILS # 0.3 10^3/ul (0.0-0.5); EOSINOPHILS % 3.6 % (0.0-7.0); HEMATOCRIT 29.7 % (42.0-52.0); HEMOGLOBIN 9.5 g/dl (14.0-18.0); LYMPHOCYTES # 0.8 10^3/ul (0.8-2.9); LYMPHOCYTES % 9.6 % (15.0-51.0); MEAN CORPUSCULAR HEMOGLOBIN 31.1 pg (29.0-33.0); MEAN CORPUSCULAR VOLUME 97.4 fl (82.0-101.0); MEAN PLATELET VOLUME 8.7 fl (7.4-10.4); MONOCYTE # 0.9 10^3/ul (0.3-0.9); MONOCYTES % 11.5 % (0.0-11.0); NEUTROPHILS % 74.1 % (39.0-77.0); PLATELET COUNT 173 10^3/UL (140-415); RED BLOOD COUNT 3.05 10^6/ul (4.70-6.10); RED CELL DISTRIBUTION WIDTH 18.5 % (11.5-14.5); WHITE BLOOD COUNT 8.1 10^3/ul (4.8-10.8)
[2016-11-14 07:21] LABS: POTASSIUM 5.1 mmol/L (3.5-5.1)
[2016-11-14 07:24] LABS: CALCIUM 7.3 mg/dl (8.4-10.2); CREATININE 3.23 mg/dl (0.61-1.24)
[2016-11-14] MEDS: SILDENAFIL 20 MG TAB GTB SCH ×2 (09:00→21:00)
--- NOTE | 2016-11-14 09:22 | PN ---
DATE: 11/14/2016 SUBJECTIVE: The patient is stable, no acute events overnight. No fevers, chills, nausea, vomiting sounds. No shortness of breath. OBJECTIVE: VITAL SIGNS: Blood pressure is 108/54, respirations 19, pulse 101, temperature 97.9. HEENT: Head is normocephalic. NECK: Supple. HEART: Regular rate. LUNGS: Show diminished breath sounds at the base. ABDOMEN: Soft, nontender to palpation, no rebound or guarding. EXTREMITIES: Negative for clubbing, cyanosis on the right leg. The left BKA is noted. DERMATOLOGIC: No rashes. MUSCULOSKELETAL: No joint effusions. NEUROLOGIC: No change in exam. MEDICATIONS: The patient's medications have been reviewed. LABORATORY DATA: Shows sodium 135, potassium 5.1, BUN 58, creatinine 3.23. White count 8.1, hemogl obin 9.5, hematocrit 29.7, platelet count is 173. ASSESSMENT AND PLAN: 1. End-stage renal disease. The patient is on dialysis Saturday, Saturday, Saturday. Plan for dialys is today for 3 hours on a 3K bath, calcium 2-5. 2. Anemia of chronic disease. Continue to monitor H and H levels. Continue Epogen. 3. Mineral bone disorder. Will monitor calcium and phosphorus levels. Continue phos supplementati on at this time. 4. Volume overload, improved. Will continue ultrafiltration dialysis and monitor hemodynamics clos [place]. 5. Sepsis secondary to pneumonia. The patient is completing antibiotic course. 6. Ventilatory-dependent respiratory failure. Vent settings have been reviewed. ABG has been revi ewed. Continue to monitor. 7. Dysphagia status post PEG, continue tube feeds. 8. Coronary artery disease. Continue medical management. 9. Diabetes. Continue Accu-Cheks and insulin sliding scale. 10. Depression and anxiety disorder. Continue current treatment plan. 11. Hypotension, etiology is likely hemodynamics. Will minimize ultrafiltration dialysis and monit or closely. 12. History of congestive heart failure. Appears compensated. 13. Hyponatremia. Continue dialysis on a 140 sodium bath. Dictated By: SARAHI EMERSON DO NR/NTS Conf#: [id number] DID#: [id number]
[2016-11-14] MEDS: INSULIN GLARGINE [LANtus] 3 ML PEN SC SCH (09:32)
[2016-11-14] MEDS: MUPIROCIN 2% 22 GM OINT TOP SCH ×2 (09:34→11:58)
--- NOTE | 2016-11-14 09:42 | CONS ---
Date/Time of Note Date/Time of Note DATE: 11/14/16 TIME: 09:41 Assessment/Plan Assessment/Plan Chief Complaint/Hosp Course - sepsis - h/o GIB - ascites, possible SBP - near complete collapse of RLL with LLL atelectasis, pulmonary edema - h/o severe C diff colitis in 2016 - ESRD on HD - VDRF on trach - G tueb dependence - PVD - s/p L BKA - dyspnea and L sided CP recommendations - await the results of blood cultures from 11/12/2016, results of paracentesis from 11/14/2016 - continue renally dosed cefepime (11/12/2016-) and metronidazole (10/14/2016-) empirically management d/w Pt's RN Problems: Consultation Date/Type/Reason Admit Date/Time Nov 08, 2016 at 10:56 Initial Consult Date 11/09/16 Type of Consultation: ID Referring Provider: GRACIE KATHLEEN 24 HR Interval Summary Free Text/Dictation s/p paracentesis Subjective hx not possible: pt non-verbal Exam/Review of Systems Vital Signs Vitals Vital Signs Date Time Temp Pulse Resp B/P Pulse Ox O2 Delivery O2 Flow Rate FiO2 11/14/16 09:18 88 17 98 30 11/14/16 08:08 97.9 108/54 Mechanical Ventilator Intake and Output 11/13/16 11/13/16 11/14/16 15:00 23:00 07:00 Intake Total 570 ml 580 ml Balance 570 ml 580 ml Exam Constitutional: frail, non-verbal Psych: confusion Head: atraumatic, normocephalic Eyes: nl conjunctiva, nl lids ENMT: nl external ears & nose, nl nasal mucosa & septum Neck: other (trach) Respiratory: crackles/rales Cardiovascular: nl pulses, regular rate and rhythm Gastrointestinal: non-tender, soft, No distended Extremities: other (s/p L BKA) Results Result Diagram: 11/14/16 0640 11/14/16 0640 Results 24 hrs Laboratory Tests Test 11/13/16 11:37 11/13/16 20:50 11/13/16 21:47 11/14/16 06:12 Bedside Glucose 176 130 135 Hemoglobin 9.7 L Hematocrit 30.2 L Test 11/14/16 06:40 White Blood Count 8.1 Red Blood Count 3.05 L Hemoglobin 9.5 L Hematocrit 29.7 L Mean Corpuscular Volume 97.4 Mean Corpuscular Hemoglobin 31.1 Mean Corpuscular Hemoglobin Concent 32.0 Red Cell Distribution Width 18.5 H Platelet Count 173 Mean Platelet Volume 8.7 Neutrophils % 74.1 Lymphocytes % 9.6 L Monocytes % 11.5 H Eosinophils % 3.6 Basophils % 0.5 Nucleated Red Blood Cells % 0.0 Neutrophils # 6.0 Lymphocytes # 0.8 Monocytes # 0.9 Eosinophils # 0.3 Basophils # 0.0 Nucleated Red Blood Cells # 0.0 Sodium Level 135 Potassium Level 5.1 Chloride Level 101 Carbon Dioxide Level 27 Anion Gap 12 Blood Urea Nitrogen 58 H Creatinine 3.23 H Glucose Level 127 Calcium Level 7.3 L Medications Medications Current Medications Lidocaine (Lidoderm) 1 patch DAILY TD Last administered on 11/13/16 10:08; Admin Dose 1 PATCH; Start 11/08/16 at 15:30 Acetaminophen (Tylenol Liquid) 325 mg Q4H PRN GTB MILD PAIN LEVEL 1-3; Start at 15:30 Acetaminophen (Tylenol Liquid) 650 mg Q4H PRN GTB MODERATE PAIN LEVEL 4-6 Last administered on 11/09/16 05:28; Admin Dose 650 MG; Start 11/08/16 at 15:30 Ascorbic Acid (Vitamin C) 500 mg DAILY GTB Last administered on 11/13/16 10:06 ; Admin Dose 500 MG; Start 11/09/16 at 09:00 Atorvastatin Calcium (Lipitor) 40 mg QHS GTB Last administered on 11/13/16 21: 49; Admin Dose 40 MG; Start 11/08/16 at 21:00 Carvedilol (Coreg) 3.125 mg BID GTB Last administered on 11/13/16 21:50; Admin Dose 3.125 MG; Start 11/08/16 at 21:00 Clonidine HCl (Catapres-Tts 1 Patch) 1 patch Q7D TRANSDERM Last administered on 11/08/16 18:32; Admin Dose 1 PATCH; Start 11/08/16 at 15:30 Duloxetine HCl (Cymbalta) 30 mg DAILY GTB Last administered on 11/13/16 10:07 ; Admin Dose 30 MG; Start 11/09/16 at 09:00 Fluticasone Propionate (Flonase 0.05% Nasal) 1 spray BID NASAL Last administered on 11/13/16 21:52; Admin Dose 1 SPRAY; Start 11/08/16 at 21:00 Insulin Glargine (Lantus) 10 unit DAILY SC Last administered on 11/13/16 10:30 ; Admin Dose 10 UNIT; Start 11/09/16 at 09:00 Lactobacillus Acidoph/Bulgaricus (Floranex) 1 tab DAILY GTB Last administered on 11/13/16 10:06; Admin Dose 1 TAB; Start 11/09/16 at 09:00 Nifedipine (Procardia) 30 mg BID GTB Last administered on 11/12/16 09:54; Admin Dose 30 MG; Start 11/08/16 at 21:00 Sildenafil Citrate (Revatio) 20 mg BID GTB Last administered on 11/13/16 21:51 ; Admin Dose 20 MG; Start 11/08/16 at 21:00 Zinc Sulfate (Zinc Sulfate) 220 mg DAILY GTB Last administered on 11/13/16 10: 06; Admin Dose 220 MG; Start 11/09/16 at 09:00 Vitamin B Complex/ Vitamin C (Berocca) 1 cap DAILY GTB Last administered on 10:06; Admin Dose 1 CAP; Start 11/09/16 at 09:00 Miscellaneous Information 1 ea NOTE XX ; Start 11/08/16 at 16:00 Glucose (Glutose) 15 gm Q15M PRN PO DECREASED GLUCOSE; Start 11/08/16 at 16:00 Glucose (Glutose) 22.5 gm Q15M PRN PO DECREASED GLUCOSE; Start 11/08/16 at 16: 00 Dextrose (D50w Syringe) 25 ml Q15M PRN IV DECREASED GLUCOSE; Start 11/08/16 at 16:00 Dextrose (D50w Syringe) 50 ml Q15M PRN IV DECREASED GLUCOSE; Start 11/08/16 at 16:00 Glucagon (Glucagen) 1 mg Q15M PRN IM DECREASED GLUCOSE; Start 11/08/16 at 16:00 Glucose (Glutose) 15 gm Q15M PRN BUCCAL DECREASED GLUCOSE; Start 11/08/16 at 16 :00 Acetaminophen/ Hydrocodone Bitart ([place] (5/325)) 1 tab Q4H PRN PO SEVERE PAIN 7-10 Last administered on 11/13/16 21:51; Admin Dose 1 TAB; Start 11/08/16 at 21:00 Morphine Sulfate (morphine) 2 mg Q4H PRN IV PAIN LEVEL 7-10 Last administered on 11/14/16 06:16; Admin Dose 2 MG; Start 11/09/16 at 11:00 Collagenase (Santyl) 1 applic DAILY TOP Last administered on 11/13/16 10:09; Admin Dose 1 APPLIC; Start 11/09/16 at 16:00 Lorazepam (Ativan) 1 mg Q6H PRN IV AGITATION/ANXIETY Last administered on 00:40; Admin Dose 1 MG; Start 11/09/16 at 20:30 Pantoprazole (Protonix Iv) 40 mg BID@06,18 IV Last administered on 11/14/16 06 :14; Admin Dose 40 MG; Start 11/10/16 at 06:00 Sodium Phosphate (Neutra-Phos) 250 mg BID GTB Last administered on 11/13/16 21 :52; Admin Dose 250 MG; Start 11/10/16 at 09:00 Mupirocin (Bactroban) 1 applic BID TOP Last administered on 11/13/16 21:52; Admin Dose 1 APPLIC; Start 11/10/16 at 12:30 Insulin Aspart NOVOLOG *MILD* ALGORI... Q6 SC Last administered on 11/13/16 12 :43; Admin Dose 1 UNIT; Start 11/11/16 at 00:00 Metronidazole (Flagyl 500 Mg (Pmx)) 100 ml @ 100 mls/hr Q8 IVPB Last administered on 11/14/16 06:14; Admin Dose 100 MLS/HR; Start 11/11/16 at 14:00 Calcium/Vitamin D 1 tab 1 tab DAILY GTB Last administered on 11/13/16 10:06; Admin Dose 1 TAB; Start 11/12/16 at 11:00 Cefepime HCl/ Sodium Chloride (Maxipime/NS) 50 ml @ 100 mls/hr Q24H IVPB Last administered on 11/12/16 16:51; Admin Dose 100 MLS/HR; Start 11/12/16 at 14:00 SADIA LONDON M.D. Nov 14, 2016 09:42
[2016-11-14] MEDS ORDERED: LIDOCAINE 1% (MPF) 5 ML VIAL ONE (10:25)
--- NOTE | 2016-11-14 11:02 | PN ---
Date/Time of Note Date/Time of Note DATE: 11/14/16 TIME: 11:00 Assessment/Plan VTE Prophylaxis VTE Prophylaxis Intervention: other (per pmd) Lines/Catheters IV Catheter Type (from Nrsg): Saline Lock Urinary Cath still in place: No Assessment/Plan Chief Complaint/Hosp Course a] r/o S B P plan paracentesis Problems: Assessment/Plan ascitis s/p paracentesis plan await path Subjective 24 Hr Interval Summary Free Text/Dictation alert no complaints Exam/Review of Systems Vital Signs Vitals Vital Signs Date Time Temp Pulse Resp B/P Pulse Ox O2 Delivery O2 Flow Rate FiO2 11/14/16 09:18 88 17 98 30 11/14/16 08:08 97.9 108/54 Mechanical Ventilator Intake and Output 11/13/16 11/13/16 11/14/16 15:00 23:00 07:00 Intake Total 570 ml 580 ml Balance 570 ml 580 ml Exam severe esophagitis no jerry has ascitis clinically stable Results Result Diagram: 11/14/16 0640 11/14/16 0640 Results 24 hrs Laboratory Tests Test 11/13/16 11:37 11/13/16 20:50 11/13/16 21:47 11/14/16 06:12 Bedside Glucose 176 130 135 Hemoglobin 9.7 L Hematocrit 30.2 L Test 11/14/16 06:40 11/14/16 09:29 White Blood Count 8.1 Red Blood Count 3.05 L Hemoglobin 9.5 L Hematocrit 29.7 L Mean Corpuscular Volume 97.4 Mean Corpuscular Hemoglobin 31.1 Mean Corpuscular Hemoglobin Concent 32.0 Red Cell Distribution Width 18.5 H Platelet Count 173 Mean Platelet Volume 8.7 Neutrophils % 74.1 Lymphocytes % 9.6 L Monocytes % 11.5 H Eosinophils % 3.6 Basophils % 0.5 Nucleated Red Blood Cells % 0.0 Neutrophils # 6.0 Lymphocytes # 0.8 Monocytes # 0.9 Eosinophils # 0.3 Basophils # 0.0 Nucleated Red Blood Cells # 0.0 Sodium Level 135 Potassium Level 5.1 Chloride Level 101 Carbon Dioxide Level 27 Anion Gap 12 Blood Urea Nitrogen 58 H Creatinine 3.23 H Glucose Level 127 Calcium Level 7.3 L Bedside Glucose 175 Medications Medications Current Medications Lidocaine (Lidoderm) 1 patch DAILY TD Last administered on 11/13/16t 10:08; Admin Dose 1 PATCH; Start 11/08/16 at 15:30 Acetaminophen (Tylenol Liquid) 325 mg Q4H PRN GTB MILD PAIN LEVEL 1-3; Start at 15:30 Acetaminophen (Tylenol Liquid) 650 mg Q4H PRN GTB MODERATE PAIN LEVEL 4-6 Last administered on 11/09/16 05:28; Admin Dose 650 MG; Start 11/08/16 at 15:30 Ascorbic Acid (Vitamin C) 500 mg DAILY GTB Last administered on 11/13/16 10:06 ; Admin Dose 500 MG; Start 11/09/16 at 09:00 Atorvastatin Calcium (Lipitor) 40 mg QHS GTB Last administered on 11/13/16 21: 49; Admin Dose 40 MG; Start 11/08/16 at 21:00 Carvedilol (Coreg) 3.125 mg BID GTB Last administered on 11/13/16 21:50; Admin Dose 3.125 MG; Start 11/08/16 at 21:00 Clonidine HCl (Catapres-Tts 1 Patch) 1 patch Q7D TRANSDERM Last administered on 11/08/16 18:32; Admin Dose 1 PATCH; Start 11/08/16 at 15:30 Duloxetine HCl (Cymbalta) 30 mg DAILY GTB Last administered on 11/13/16 10:07 ; Admin Dose 30 MG; Start 11/09/16 at 09:00 Fluticasone Propionate (Flonase 0.05% Nasal) 1 spray BID NASAL Last administered on 11/13/16 21:52; Admin Dose 1 SPRAY; Start 11/08/16 at 21:00 Insulin Glargine (Lantus) 10 unit DAILY SC Last administered on 11/14/16 09:32 ; Admin Dose 10 UNIT; Start 11/09/16 at 09:00 Lactobacillus Acidoph/Bulgaricus (Floranex) 1 tab DAILY GTB Last administered on 11/13/16 10:06; Admin Dose 1 TAB; Start 11/09/16 at 09:00 Nifedipine (Procardia) 30 mg BID GTB Last administered on 11/12/16 09:54; Admin Dose 30 MG; Start 11/08/16 at 21:00 Sildenafil Citrate (Revatio) 20 mg BID GTB Last administered on 11/13/16 21:51 ; Admin Dose 20 MG; Start 11/08/16 at 21:00 Zinc Sulfate (Zinc Sulfate) 220 mg DAILY GTB Last administered on 11/13/16 10: 06; Admin Dose 220 MG; Start 11/09/16 at 09:00 Vitamin B Complex/ Vitamin C (Berocca) 1 cap DAILY GTB Last administered on 10:06; Admin Dose 1 CAP; Start 11/09/16 at 09:00 Miscellaneous Information 1 ea NOTE XX ; Start 11/08/16 at 16:00 Glucose (Glutose) 15 gm Q15M PRN PO DECREASED GLUCOSE; Start 11/08/16 at 16:00 Glucose (Glutose) 22.5 gm Q15M PRN PO DECREASED GLUCOSE; Start 11/08/16 at 16: 00 Dextrose (D50w Syringe) 25 ml Q15M PRN IV DECREASED GLUCOSE; Start 11/08/16 at 16:00 Dextrose (D50w Syringe) 50 ml Q15M PRN IV DECREASED GLUCOSE; Start 11/08/16 at 16:00 Glucagon (Glucagen) 1 mg Q15M PRN IM DECREASED GLUCOSE; Start 11/08/16 at 16:00 Glucose (Glutose) 15 gm Q15M PRN BUCCAL DECREASED GLUCOSE; Start 11/08/16 at 16 :00 Acetaminophen/ Hydrocodone Bitart ([place] (5/325)) 1 tab Q4H PRN PO SEVERE PAIN 7-10 Last administered on 11/13/16 21:51; Admin Dose 1 TAB; Start 11/08/16 at 21:00 Morphine Sulfate (morphine) 2 mg Q4H PRN IV PAIN LEVEL 7-10 Last administered on 11/14/16 06:16; Admin Dose 2 MG; Start 11/09/16 at 11:00 Collagenase (Santyl) 1 applic DAILY TOP Last administered on 11/13/16 10:09; Admin Dose 1 APPLIC; Start 11/09/16 at 16:00 Lorazepam (Ativan) 1 mg Q6H PRN IV AGITATION/ANXIETY Last administered on 00:40; Admin Dose 1 MG; Start 11/09/16 at 20:30 Pantoprazole (Protonix Iv) 40 mg BID@,18 IV Last administered on 11/14/16 06 :14; Admin Dose 40 MG; Start 11/10/16 at 06:00 Sodium Phosphate (Neutra-Phos) 250 mg BID GTB Last administered on 11/13/16 21 :52; Admin Dose 250 MG; Start 11/10/16 at 09:00 Mupirocin (Bactroban) 1 applic BID TOP Last administered on 11/14/16 09:34; Admin Dose 1 APPLIC; Start 11/10/16 at 12:30 Insulin Aspart NOVOLOG *MILD* ALGORI... Q6 SC Last administered on 11/13/16 12 :43; Admin Dose 1 UNIT; Start 11/11/16 at 00:00 Metronidazole (Flagyl 500 Mg (Pmx)) 100 ml @ 100 mls/hr Q8 IVPB Last administered on 11/14/16 06:14; Admin Dose 100 MLS/HR; Start 11/11/16 at 14:00 Calcium/Vitamin D 1 tab 1 tab DAILY GTB Last administered on 11/13/16 10:06; Admin Dose 1 TAB; Start 11/12/16 at 11:00 Cefepime HCl/ Sodium Chloride (Maxipime/NS) 50 ml @ 100 mls/hr Q24H IVPB Last administered on 11/12/16 16:51; Admin Dose 100 MLS/HR; Start 11/12/16 at 14:00 AIME PATTERSON MD Nov 14, 2016 11:02
--- NOTE | 2016-11-14 11:41 | CONS ---
Date/Time of Note Date/Time of Note DATE: 11/14/16 TIME: 11:38 Assessment/Plan Assessment/Plan Additional Assessment/Plan Ventilator settings; AC of 14, the volume of 550, PEEP of 5, 40% FiO2. Assessment and recommendations; 1. Patient admitted for UTI and sepsis with interval improvement. 2. Chronic respiratory failure, patient ventilator dependent. 3. Dementia. 4. History of hypertension. 5. History of pulmonary hypertension. 6. History of diabetes. Continue current treatment. Patient can be discharged to correction. Overall prognosis remains poor. Consultation Date/Type/Reason Admit Date/Time Nov 08, 2016 at 10:56 Initial Consult Date 11/08/16 Type of Consultation: Pulmonary Referring Provider: GRACIE KATHLEEN 24 HR Interval Summary Free Text/Dictation Patient condition remains stable. Remains essentially unresponsive. Remains ventilator dependent. Patient does have episodes when he is awake but does not follow any commands. Has also has episodes of occasional agitation. General exam; elderly male, on ventilator via tracheostomy currently in no distress. Exam/Review of Systems Vital Signs Vitals Vital Signs Date Time Temp Pulse Resp B/P Pulse Ox O2 Delivery O2 Flow Rate FiO2 11/14/16 11:20 89 14 99 30 11/14/16 11:19 98.1 97/52 11/14/16 08:08 Mechanical Ventilator Intake and Output 11/13/16 11/13/16 11/14/16 15:00 23:00 07:00 Intake Total 570 ml 580 ml Balance 570 ml 580 ml Exam HEENT examination; supple neck, no JVD. No lymphadenopathy. Midline trachea. No thyromegaly. No neck masses. Tracheostomy in place with clean insertion site. Chest examination; clear to auscultation. S1-S2 audible, no murmurs. Regular rhythm. Abdomen examination; soft, no organomegaly. Bowel sounds audible. G-tube in place. Extremity examination; no peripheral edema. Patient is a well-healed left below -knee amputation. 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 Results Result Diagram: 11/14/16 0640 11/14/16 0640 Results 24 hrs Laboratory Tests Test 11/13/16 20:50 11/13/16 21:47 11/14/16 06:12 11/14/16 06:40 Hemoglobin 9.7 L 9.5 L Hematocrit 30.2 L 29.7 L Bedside Glucose 130 135 White Blood Count 8.1 Red Blood Count 3.05 L Mean Corpuscular Volume 97.4 Mean Corpuscular Hemoglobin 31.1 Mean Corpuscular Hemoglobin Concent 32.0 Red Cell Distribution Width 18.5 H Platelet Count 173 Mean Platelet Volume 8.7 Neutrophils % 74.1 Lymphocytes % 9.6 L Monocytes % 11.5 H Eosinophils % 3.6 Basophils % 0.5 Nucleated Red Blood Cells % 0.0 Neutrophils # 6.0 Lymphocytes # 0.8 Monocytes # 0.9 Eosinophils # 0.3 Basophils # 0.0 Nucleated Red Blood Cells # 0.0 Sodium Level 135 Potassium Level 5.1 Chloride Level 101 Carbon Dioxide Level 27 Anion Gap 12 Blood Urea Nitrogen 58 H Creatinine 3.23 H Glucose Level 127 Calcium Level 7.3 L Test 11/14/16 09:29 Bedside Glucose 175 Medications Medications Current Medications Lidocaine (Lidoderm) 1 patch DAILY TD Last administered on 11/13/16 10:08; Admin Dose 1 PATCH; Start 11/08/16 at 15:30 Acetaminophen (Tylenol Liquid) 325 mg Q4H PRN GTB MILD PAIN LEVEL 1-3; Start at 15:30 Acetaminophen (Tylenol Liquid) 650 mg Q4H PRN GTB MODERATE PAIN LEVEL 4-6 Last administered on 11/09/16 05:28; Admin Dose 650 MG; Start 11/08/16 at 15:30 Ascorbic Acid (Vitamin C) 500 mg DAILY GTB Last administered on 11/13/16 10:06 ; Admin Dose 500 MG; Start 11/09/16 at 09:00 Atorvastatin Calcium (Lipitor) 40 mg QHS GTB Last administered on 11/13/16 21: 49; Admin Dose 40 MG; Start 11/08/16 at 21:00 Carvedilol (Coreg) 3.125 mg BID GTB Last administered on 11/13/16 21:50; Admin Dose 3.125 MG; Start 11/08/16 at 21:00 Clonidine HCl (Catapres-Tts 1 Patch) 1 patch Q7D TRANSDERM Last administered on 11/08/16 18:32; Admin Dose 1 PATCH; Start 11/08/16 at 15:30 Duloxetine HCl (Cymbalta) 30 mg DAILY GTB Last administered on 11/13/16 10:07 ; Admin Dose 30 MG; Start 11/09/16 at 09:00 Fluticasone Propionate (Flonase 0.05% Nasal) 1 spray BID NASAL Last administered on 11/13/16 21:52; Admin Dose 1 SPRAY; Start 11/08/16 at 21:00 Insulin Glargine (Lantus) 10 unit DAILY SC Last administered on 11/14/16 09:32 ; Admin Dose 10 UNIT; Start 11/09/16 at 09:00 Lactobacillus Acidoph/Bulgaricus (Floranex) 1 tab DAILY GTB Last administered on 11/13/16 10:06; Admin Dose 1 TAB; Start 11/09/16 at 09:00 Nifedipine (Procardia) 30 mg BID GTB Last administered on 11/12/16 09:54; Admin Dose 30 MG; Start 11/08/16 at 21:00 Sildenafil Citrate (Revatio) 20 mg BID GTB Last administered on 11/13/16 21:51 ; Admin Dose 20 MG; Start 11/08/16 at 21:00 Zinc Sulfate (Zinc Sulfate) 220 mg DAILY GTB Last administered on 11/13/16 10: 06; Admin Dose 220 MG; Start 11/09/16 at 09:00 Vitamin B Complex/ Vitamin C (Berocca) 1 cap DAILY GTB Last administered on 10:06; Admin Dose 1 CAP; Start 11/09/16 at 09:00 Miscellaneous Information 1 ea NOTE XX ; Start 11/08/16 at 16:00 Glucose (Glutose) 15 gm Q15M PRN PO DECREASED GLUCOSE; Start 11/08/16 at 16:00 Glucose (Glutose) 22.5 gm Q15M PRN PO DECREASED GLUCOSE; Start 11/08/16 at 16: 00 Dextrose (D50w Syringe) 25 ml Q15M PRN IV DECREASED GLUCOSE; Start 11/08/16 at 16:00 Dextrose (D50w Syringe) 50 ml Q15M PRN IV DECREASED GLUCOSE; Start 11/08/16 at 16:00 Glucagon (Glucagen) 1 mg Q15M PRN IM DECREASED GLUCOSE; Start 11/08/16 at 16:00 Glucose (Glutose) 15 gm Q15M PRN BUCCAL DECREASED GLUCOSE; Start 11/08/16 at 16 :00 Acetaminophen/ Hydrocodone Bitart ([place] (5/325)) 1 tab Q4H PRN PO SEVERE PAIN 7-10 Last administered on 11/13/16 21:51; Admin Dose 1 TAB; Start 11/08/16 at 21:00 Morphine Sulfate (morphine) 2 mg Q4H PRN IV PAIN LEVEL 7-10 Last administered on 11/14/16 06:16; Admin Dose 2 MG; Start 11/09/16 at 11:00 Collagenase (Santyl) 1 applic DAILY TOP Last administered on 11/13/16 10:09; Admin Dose 1 APPLIC; Start 11/09/16 at 16:00 Lorazepam (Ativan) 1 mg Q6H PRN IV AGITATION/ANXIETY Last administered on 00:40; Admin Dose 1 MG; Start 11/09/16 at 20:30 Pantoprazole (Protonix Iv) 40 mg BID@06,18 IV Last administered on 11/14/16 06 :14; Admin Dose 40 MG; Start 11/10/16 at 06:00 Sodium Phosphate (Neutra-Phos) 250 mg BID GTB Last administered on 11/13/16 21 :52; Admin Dose 250 MG; Start 11/10/16 at 09:00 Mupirocin (Bactroban) 1 applic BID TOP Last administered on 11/14/16 09:34; Admin Dose 1 APPLIC; Start 11/10/16 at 12:30 Insulin Aspart NOVOLOG *MILD* ALGORI... Q6 SC Last administered on 11/13/16 12 :43; Admin Dose 1 UNIT; Start 11/11/16 at 00:00 Metronidazole (Flagyl 500 Mg (Pmx)) 100 ml @ 100 mls/hr Q8 IVPB Last administered on 11/14/16 06:14; Admin Dose 100 MLS/HR; Start 11/11/16 at 14:00 Calcium/Vitamin D 1 tab 1 tab DAILY GTB Last administered on 11/13/16 10:06; Admin Dose 1 TAB; Start 11/12/16 at 11:00 Cefepime HCl/ Sodium Chloride (Maxipime/NS) 50 ml @ 100 mls/hr Q24H IVPB Last administered on 11/12/16 16:51; Admin Dose 100 MLS/HR; Start 11/12/16 at 14:00 ELVI BLANK Nov 14, 2016 11:41
[2016-11-14] MEDS: NEUTRA-PHOS 250 MG PACKET GTB SCH ×2 (11:53→21:26)
[2016-11-14] MEDS: CALCIUM/VITAMIN D (500/200) TAB GTB SCH (11:53)
[2016-11-14] MEDS: ZINC SULFATE 220 MG CAP GTB SCH (11:54)
[2016-11-14] MEDS: ASCORBIC ACID 500 MG TAB GTB SCH (11:54)
[2016-11-14] MEDS: LACTOBACILLUS CHEW TAB GTB SCH (11:54)
[2016-11-14] MEDS: VITAMIN B COMPLEX/VIT C CAP GTB SCH (11:54)
[2016-11-14] MEDS: NIFEdipine 10 MG CAP GTB SCH (11:54)
[2016-11-14] MEDS: DULOXETINE 30 MG CAP DR GTB SCH (11:54)
[2016-11-14] MEDS: FLUTICASONE 0.05% 16 GM NAS SPRAY NASAL SCH ×2 (11:58→21:26)
[2016-11-14] MEDS: LIDOCAINE 5% PATCH TD SCH (11:58)
[2016-11-14] MEDS: COLLAGENASE 30 GM TUBE TOP SCH (11:58)
[2016-11-14 12:45] LABS: FLUID GLUCOSE 159 mg/dl; FLUID TOTAL PROTEIN < 2.0 g/dl; FLUID TYPE ASCITES FLUID
--- NOTE | 2016-11-14 13:24 | PN ---
Date/Time of Note Date/Time of Note DATE: 11/14/16 TIME: 13:17 Assessment/Plan VTE Prophylaxis VTE Prophylaxis Intervention: SCD's Lines/Catheters IV [facility] [place] [facility] Urinary Cath still in place: No Assessment/Plan Chief Complaint/Hosp Course Assessment/Plan - Esophagitis per EGD. Continue Protonix Dr. Hernandez is following in gastroenterology consultation. - Anemia of chronic disease, on Epogen, continue to monitor hemoglobin and hematocrit, transfuse as needed. - Ascites, possible SBP. Status post paracentesis 11/14, follow-up on ascitic fluid culture, continue antibiotics per ID. - Systemic inflammatory response syndrome with leukocytosis, patient is followed by Dr. Benjamin deluna in infection disease consultation. - End-stage renal disease, hemodialysis dependent. Continue hemodialysis per nephrology. - Chronic respiratory failure with tracheostomy. Dr. Sahu is following in pulmonology consultation. - Coronary artery disease with history of PCI. - Diastolic congestive heart failure - Pulmonary hypertension - Peripheral vascular disease, status post left BKA. - Diabetes mellitus type 2, continue NovoLog per sliding scale. - Sacral decub present on admission. Continue current wound care. Problems: Subjective 24 Hr Interval Summary Free Text/Dictation Patient status post paracentesis today, currently sedated, comfortable on vent support. Exam/Review of Systems Vital Signs Vitals Vital Signs Date Time Temp Pulse Resp B/P Pulse Ox O2 Delivery O2 Flow Rate FiO2 11/14/16 12:19 97 11/14/16 12:10 98.0 20 111/59 98 Mechanical Ventilator 11/14/16 11:20 30 Intake and Output 11/13/16 11/13/16 11/14/16 15:00 23:00 07:00 Intake Total 570 ml 580 ml Balance 570 ml 580 ml Exam GENERAL: Well-developed, well-nourished male, currently on vent support. HEENT: Head is atraumatic, normocephalic. PERRLA. NECK: Supple. Tracheostomy at the base of the neck. LUNGS: Slightly diminished at the bases. Clear in the upper lobes. HEART: Normal S1, S2. No murmurs, gallops, clicks, rubs noted. ABDOMEN: Protuberant, soft, nondistended, nontender. G-tube in place. EXTREMITIES: The patient is status post left BKA. Right lower extremity with mild edema. The patient has a left upper extremity arteriovenous fistula with palpable thrill and audible bruit. SKIN: No rash, petechiae noted. Sacral decubitus ulcer. NEUROLOGIC: The patient is awake, alert. Results Result Diagram: 11/14/16 0640 11/14/16 0640 Results 24 hrs Laboratory Tests Test 11/13/16 20:50 11/13/16 21:47 11/14/16 06:12 11/14/16 06:40 Hemoglobin 9.7 L 9.5 L Hematocrit 30.2 L 29.7 L Bedside Glucose 130 135 White Blood Count 8.1 Red Blood Count 3.05 L Mean Corpuscular Volume 97.4 Mean Corpuscular Hemoglobin 31.1 Mean Corpuscular Hemoglobin Concent 32.0 Red Cell Distribution Width 18.5 H Platelet Count 173 Mean Platelet Volume 8.7 Neutrophils % 74.1 Lymphocytes % 9.6 L Monocytes % 11.5 H Eosinophils % 3.6 Basophils % 0.5 Nucleated Red Blood Cells % 0.0 Neutrophils # 6.0 Lymphocytes # 0.8 Monocytes # 0.9 Eosinophils # 0.3 Basophils # 0.0 Nucleated Red Blood Cells # 0.0 Sodium Level 135 Potassium Level 5.1 Chloride Level 101 Carbon Dioxide Level 27 Anion Gap 12 Blood Urea Nitrogen 58 H Creatinine 3.23 H Glucose Level 127 Calcium Level 7.3 L Test 11/14/16 09:29 11/14/16 10:15 11/14/16 11:52 Bedside Glucose 175 152 Body Fluid Type ASCITES FLUID Body Fluid Glucose 159 Body Fluid Total Protein < 2.0 Medications Medications Current Medications Lidocaine (Lidoderm) 1 patch DAILY TD Last administered on 11/14/16 11:58; Admin Dose 1 PATCH; Start 11/08/16 at 15:30 Acetaminophen (Tylenol Liquid) 325 mg Q4H PRN GTB MILD PAIN LEVEL 1-3; Start at 15:30 Acetaminophen (Tylenol Liquid) 650 mg Q4H PRN GTB MODERATE PAIN LEVEL 4-6 Last administered on 11/09/16 05:28; Admin Dose 650 MG; Start 11/08/16 at 15:30 Ascorbic Acid (Vitamin C) 500 mg DAILY GTB Last administered on 11/14/16 11:54 ; Admin Dose 500 MG; Start 11/09/16 at 09:00 Atorvastatin Calcium (Lipitor) 40 mg QHS GTB Last administered on 11/13/16 21: 49; Admin Dose 40 MG; Start 11/08/16 at 21:00 Carvedilol (Coreg) 3.125 mg BID GTB Last administered on 11/14/16 11:54; Admin Dose 3.125 MG; Start 11/08/16 at 21:00 Clonidine HCl (Catapres-Tts 1 Patch) 1 patch Q7D TRANSDERM Last administered on 11/08/16 18:32; Admin Dose 1 PATCH; Start 11/08/16 at 15:30 Duloxetine HCl (Cymbalta) 30 mg DAILY GTB Last administered on 11/14/16 11:54 ; Admin Dose 30 MG; Start 11/09/16 at 09:00 Fluticasone Propionate (Flonase 0.05% Nasal) 1 spray BID NASAL Last administered on 11/14/16 11:58; Admin Dose 1 SPRAY; Start 11/08/16 at 21:00 Insulin Glargine (Lantus) 10 unit DAILY SC Last administered on 11/14/16 09:32 ; Admin Dose 10 UNIT; Start 11/09/16 at 09:00 Lactobacillus Acidoph/Bulgaricus (Floranex) 1 tab DAILY GTB Last administered on 11/14/16 11:54; Admin Dose 1 TAB; Start 11/09/16 at 09:00 Nifedipine (Procardia) 30 mg BID GTB Last administered on 11/14/16 11:54; Admin Dose 30 MG; Start 11/08/16 at 21:00 Sildenafil Citrate (Revatio) 20 mg BID GTB Last administered on 11/13/16 21:51 ; Admin Dose 20 MG; Start 11/08/16 at 21:00 Zinc Sulfate (Zinc Sulfate) 220 mg DAILY GTB Last administered on 11/14/16 11: 54; Admin Dose 220 MG; Start 11/09/16 at 09:00 Vitamin B Complex/ Vitamin C (Berocca) 1 cap DAILY GTB Last administered on 11:54; Admin Dose 1 CAP; Start 11/09/16 at 09:00 Miscellaneous Information 1 ea NOTE XX ; Start 11/08/16 at 16:00 Glucose (Glutose) 15 gm Q15M PRN PO DECREASED GLUCOSE; Start 11/08/16 at 16:00 Glucose (Glutose) 22.5 gm Q15M PRN PO DECREASED GLUCOSE; Start 11/08/16 at 16: 00 Dextrose (D50w Syringe) 25 ml Q15M PRN IV DECREASED GLUCOSE; Start 11/08/16 at 16:00 Dextrose (D50w Syringe) 50 ml Q15M PRN IV DECREASED GLUCOSE; Start 11/08/16 at 16:00 Glucagon (Glucagen) 1 mg Q15M PRN IM DECREASED GLUCOSE; Start 11/08/16 at 16:00 Glucose (Glutose) 15 gm Q15M PRN BUCCAL DECREASED GLUCOSE; Start 11/08/16 at 16 :00 Acetaminophen/ Hydrocodone Bitart ([place] (5/325)) 1 tab Q4H PRN PO SEVERE PAIN 7-10 Last administered on 11/13/16 21:51; Admin Dose 1 TAB; Start 11/08/16 at 21:00 Morphine Sulfate (morphine) 2 mg Q4H PRN IV PAIN LEVEL 7-10 Last administered on 11/14/16 06:16; Admin Dose 2 MG; Start 11/09/16 at 11:00 Collagenase (Santyl) 1 applic DAILY TOP Last administered on 11/14/16 11:58; Admin Dose 1 APPLIC; Start 11/09/16 at 16:00 Lorazepam (Ativan) 1 mg Q6H PRN IV AGITATION/ANXIETY Last administered on 00:40; Admin Dose 1 MG; Start 11/09/16 at 20:30 Pantoprazole (Protonix Iv) 40 mg BID@06,18 IV Last administered on 11/14/16 06 :14; Admin Dose 40 MG; Start 11/10/16 at 06:00 Sodium Phosphate (Neutra-Phos) 250 mg BID GTB Last administered on 11/14/16 11 :53; Admin Dose 250 MG; Start 11/10/16 at 09:00 Mupirocin (Bactroban) 1 applic BID TOP Last administered on 11/14/16 11:58; Admin Dose 1 APPLIC; Start 11/10/16 at 12:30 Insulin Aspart NOVOLOG *MILD* ALGORI... Q6 SC Last administered on 11/14/16 12 :08; Admin Dose 1 UNIT; Start 11/11/16 at 00:00 Metronidazole (Flagyl 500 Mg (Pmx)) 100 ml @ 100 mls/hr Q8 IVPB Last administered on 11/14/16 13:01; Admin Dose 100 MLS/HR; Start 11/11/16 at 14:00 Calcium/Vitamin D 1 tab 1 tab DAILY GTB Last administered on 11/14/16 11:53; Admin Dose 1 TAB; Start 11/12/16 at 11:00 Cefepime HCl/ Sodium Chloride (Maxipime/NS) 50 ml @ 100 mls/hr Q24H IVPB Last administered on 11/12/16 16:51; Admin Dose 100 MLS/HR; Start 11/12/16 at 14:00 MARY DOMINGUEZ Nov 14, 2016 13:24
[2016-11-14 13:26] LABS: FLUID APPEARANCE CLEAR; FLUID TYPE ASCITES; FLUID WBC'S 101 /cmm
[2016-11-14 13:27] LABS: FLUID LYMPHOCYTES 21 %; FLUID NEUTROPHILS 24 %; FLUID RBC EST 0
[2016-11-14 13:28] LABS: FLUID MONOCYTES 55 %
--- NOTE | 2016-11-14 14:34 | RADRPT ---
PROCEDURE: Ultrasound guided paracentesis. CLINICAL INDICATION: Ascites and shortness of breath. COMPARISON: No prior studies are available for comparison. TECHNIQUE: The risks, benefits, and alternatives were explained to the patient and/or the patient's family, inc luding but not limited to bleeding, infection, pain, visceral or vascular damage, shock, and . The patient and/or the patient's family understood the risks and the alternatives and wished to pro ceed with the procedure. Informed written consent was obtained. A procedural time out was performed . The patient's name, date of , and procedure to be performed were verified. Utilizing ultrasound guidance, optimal location for entry to the peritoneal cavity was ascertained. The overlying skin was prepped and draped in the usual sterile fashion. Approximately 10 ml of 1% Xylocaine was injected locally for pain control. Using ultrasound guidance, an 8 [place] catheter wa s introduced into the peritoneal cavity in the right lower quadrant without difficulty. FINDINGS: Initial images demonstrate ascites. Approximately 3.05 liters of serous fluid was aspirated and sen t for laboratory analysis. The patient tolerated the procedure well without complication. IMPRESSION: 1. Successful ultrasound-guided paracentesis. RPTAT: QQ .Luca Hopkins MD, Date Time Electronically viewed and signed by .Luca Hopkins MD, on 11/14/2016 14:34 .R/
[2016-11-14] MEDS: CEFEPIME HCL 0.5 GM in SOD CHLORIDE 0.9% 50 ML IVPB SCH (16:04)
--- NOTE | 2016-11-14 16:09 | CONS ---
Date/Time of Note Date/Time of Note DATE: 11/14/16 TIME: 16:08 Assessment/Plan Assessment/Plan Additional Assessment/Plan Paroxysmal atrial tachycardia Possible GI bleed Respiratory failure status post tracheostomy Diastolic congestive heart failure End-stage renal disease on hemodialysis CAD with history of PCI Diabetes Peripheral arterial disease with history of amputation Pulmonary hypertension -Patient with labile blood pressure. Would DC clonidine patch, decrease dose of Procardia with holding parameters. Fluid management via hemodialysis as per our nephrology colleagues Consultation Date/Type/Reason Admit Date/Time Nov 08, 2016 at 10:56 Initial Consult Date 11/09/16 Type of Consultation: cv Referring Provider: GRACIE KATHLEEN 24 HR Interval Summary Free Text/Dictation Patient seen and examined Exam/Review of Systems Vital Signs Vitals Vital Signs Date Time Temp Pulse Resp B/P Pulse Ox O2 Delivery O2 Flow Rate FiO2 11/14/16 15:34 98.5 95 18 97/53 95 11/14/16 15:23 30 11/14/16 14:00 Mechanical Ventilator Intake and Output 11/13/16 11/13/16 11/14/16 15:00 23:00 07:00 Intake Total 570 ml 580 ml Balance 570 ml 580 ml Exam Sleeping, no apparent distress Head: normocephalic Neck: other (Tracheostomy) Respiratory: other (Coarse breath sounds bilaterally, no wheezing) Cardiovascular: other (S1-S2 heard), regular rate and rhythm Gastrointestinal: bowel sounds, non-tender, other (No guarding or grimacing with palpation), soft Extremities: edema (Trace), other (No cyanosis) Results Result Diagram: 11/14/16 0640 11/14/16 0640 Results 24 hrs Laboratory Tests Test 11/13/16 20:50 11/13/16 21:47 11/14/16 06:12 11/14/16 06:40 Hemoglobin 9.7 L 9.5 L Hematocrit 30.2 L 29.7 L Bedside Glucose 130 135 White Blood Count 8.1 Red Blood Count 3.05 L Mean Corpuscular Volume 97.4 Mean Corpuscular Hemoglobin 31.1 Mean Corpuscular Hemoglobin Concent 32.0 Red Cell Distribution Width 18.5 H Platelet Count 173 Mean Platelet Volume 8.7 Neutrophils % 74.1 Lymphocytes % 9.6 L Monocytes % 11.5 H Eosinophils % 3.6 Basophils % 0.5 Nucleated Red Blood Cells % 0.0 Neutrophils # 6.0 Lymphocytes # 0.8 Monocytes # 0.9 Eosinophils # 0.3 Basophils # 0.0 Nucleated Red Blood Cells # 0.0 Sodium Level 135 Potassium Level 5.1 Chloride Level 101 Carbon Dioxide Level 27 Anion Gap 12 Blood Urea Nitrogen 58 H Creatinine 3.23 H Glucose Level 127 Calcium Level 7.3 L Test 11/14/16 09:29 11/14/16 10:15 11/14/16 11:52 Bedside Glucose 175 152 Body Fluid Type ASCITES FLUID Body Fluid Volume 450.0 Body Fluid Color YELLOW Body Fluid Appearance CLEAR Body Fluid WBC 101 Body Fluid RBC 0 Body Fluid Neutrophils % 24 Body Fluid Lymphocytes (%) 21 Body Fluid Monocytes % 55 Body Fluid Glucose 159 Body Fluid Total Protein < 2.0 Medications Medications Current Medications Lidocaine (Lidoderm) 1 patch DAILY TD Last administered on 11/14/16 11:58; Admin Dose 1 PATCH; Start 11/08/16 at 15:30 Acetaminophen (Tylenol Liquid) 325 mg Q4H PRN GTB MILD PAIN LEVEL 1-3; Start at 15:30 Acetaminophen (Tylenol Liquid) 650 mg Q4H PRN GTB MODERATE PAIN LEVEL 4-6 Last administered on 11/09/16 05:28; Admin Dose 650 MG; Start 11/08/16 at 15:30 Ascorbic Acid (Vitamin C) 500 mg DAILY GTB Last administered on 11/14/16 11:54 ; Admin Dose 500 MG; Start 11/09/16 at 09:00 Atorvastatin Calcium (Lipitor) 40 mg QHS GTB Last administered on 11/13/16 21: 49; Admin Dose 40 MG; Start 11/08/16 at 21:00 Carvedilol (Coreg) 3.125 mg BID GTB Last administered on 11/14/16 11:54; Admin Dose 3.125 MG; Start 11/08/16 at 21:00 Duloxetine HCl (Cymbalta) 30 mg DAILY GTB Last administered on 11/14/16 11:54 ; Admin Dose 30 MG; Start 11/09/16 at 09:00 Fluticasone Propionate (Flonase 0.05% Nasal) 1 spray BID NASAL Last administered on 11/14/16 11:58; Admin Dose 1 SPRAY; Start 11/08/16 at 21:00 Insulin Glargine (Lantus) 10 unit DAILY SC Last administered on 11/14/16 09:32 ; Admin Dose 10 UNIT; Start 11/09/16 at 09:00 Lactobacillus Acidoph/Bulgaricus (Floranex) 1 tab DAILY GTB Last administered on 11/14/16 11:54; Admin Dose 1 TAB; Start 11/09/16 at 09:00 Sildenafil Citrate (Revatio) 20 mg BID GTB Last administered on 11/13/16 21:51 ; Admin Dose 20 MG; Start 11/08/16 at 21:00 Zinc Sulfate (Zinc Sulfate) 220 mg DAILY GTB Last administered on 11/14/16 11: 54; Admin Dose 220 MG; Start 11/09/16 at 09:00 Vitamin B Complex/ Vitamin C (Berocca) 1 cap DAILY GTB Last administered on 11:54; Admin Dose 1 CAP; Start 11/09/16 at 09:00 Miscellaneous Information 1 ea NOTE XX ; Start 11/08/16 at 16:00 Glucose (Glutose) 15 gm Q15M PRN PO DECREASED GLUCOSE; Start 11/08/16 at 16:00 Glucose (Glutose) 22.5 gm Q15M PRN PO DECREASED GLUCOSE; Start 11/08/16 at 16: 00 Dextrose (D50w Syringe) 25 ml Q15M PRN IV DECREASED GLUCOSE; Start 11/08/16 at 16:00 Dextrose (D50w Syringe) 50 ml Q15M PRN IV DECREASED GLUCOSE; Start 11/08/16 at 16:00 Glucagon (Glucagen) 1 mg Q15M PRN IM DECREASED GLUCOSE; Start 11/08/16 at 16:00 Glucose (Glutose) 15 gm Q15M PRN BUCCAL DECREASED GLUCOSE; Start 11/08/16 at 16 :00 Acetaminophen/ Hydrocodone Bitart ([place] (5/325)) 1 tab Q4H PRN PO SEVERE PAIN 7-10 Last administered on 11/13/16 21:51; Admin Dose 1 TAB; Start 11/08/16 at 21:00 Morphine Sulfate (morphine) 2 mg Q4H PRN IV PAIN LEVEL 7-10 Last administered on 11/14/16 06:16; Admin Dose 2 MG; Start 11/09/16 at 11:00 Collagenase (Santyl) 1 applic DAILY TOP Last administered on 11/14/16 11:58; Admin Dose 1 APPLIC; Start 11/09/16 at 16:00 Lorazepam (Ativan) 1 mg Q6H PRN IV AGITATION/ANXIETY Last administered on 00:40; Admin Dose 1 MG; Start 11/09/16 at 20:30 Pantoprazole (Protonix Iv) 40 mg BID@06,18 IV Last administered on 11/14/16 06 :14; Admin Dose 40 MG; Start 11/10/16 at 06:00 Sodium Phosphate (Neutra-Phos) 250 mg BID GTB Last administered on 11/14/16 11 :53; Admin Dose 250 MG; Start 11/10/16 at 09:00 Mupirocin (Bactroban) 1 applic BID TOP Last administered on 11/14/16 11:58; Admin Dose 1 APPLIC; Start 11/10/16 at 12:30 Insulin Aspart NOVOLOG *MILD* ALGORI... Q6 SC Last administered on 11/14/16 12 :08; Admin Dose 1 UNIT; Start 11/11/16 at 00:00 Metronidazole (Flagyl 500 Mg (Pmx)) 100 ml @ 100 mls/hr Q8 IVPB Last administered on 11/14/16 13:01; Admin Dose 100 MLS/HR; Start 11/11/16 at 14:00 Calcium/Vitamin D 1 tab 1 tab DAILY GTB Last administered on 11/14/16 11:53; Admin Dose 1 TAB; Start 11/12/16 at 11:00 Cefepime HCl/ Sodium Chloride (Maxipime/NS) 50 ml @ 100 mls/hr Q24H IVPB Last administered on 11/14/16 16:04; Admin Dose 100 MLS/HR; Start 11/12/16 at 14:00 Nifedipine (Procardia) 30 mg DAILY GTB ; Start 11/15/16 at 09:00; Status Solo Johnson DO Nov 14, 2016 16:09
[2016-11-14] MEDS ORDERED: [UNRECOGNIZED DRUG - OTHER] XX SCH (21:00)
[2016-11-14 21:07] LABS: HEMATOCRIT 33.6 % (42.0-52.0); HEMOGLOBIN 10.5 g/dl (14.0-18.0)
[2016-11-14] MEDS: HYDROCODONE/APAP (5/325) TAB PO PRN (21:25)
[2016-11-14] MEDS: ATORVASTATIN 40 MG TAB GTB SCH (21:25)
[2016-11-14] MEDS: EPOETIN 10000 UNITS/1 ML INJ (ESRD) SC SCH (21:31)
[2016-11-15] VITALS (29 sets, daily range): BP systolic 82–127; BP diastolic 44–74; PULSE 79–107; RESP 14–24
[2016-11-15] MEDS: INSULIN ASPART [NOVOLOG] 3 ML PEN SC SCH ×4 (05:07→23:53)
[2016-11-15] MEDS: PANTOPRAZOLE 40 MG INJ IV SCH ×2 (05:07→17:19)
[2016-11-15] MEDS: metroNIDAZOLE 500 MG/NS (PMX) 100 ML IVPB SCH ×3 (05:11→21:07)
[2016-11-15] MEDS: ACETAMINOPHEN 650MG/20.3ML CUP GTB PRN (05:11)
[2016-11-15 07:43] LABS: ADD SCAN DIFF NO
[2016-11-15 07:49] LABS: BASOPHILS % 0.5 % (0.0-2.0); EOSINOPHILS # 0.2 10^3/ul (0.0-0.5); EOSINOPHILS % 2.4 % (0.0-7.0); HEMATOCRIT 30.2 % (42.0-52.0); HEMOGLOBIN 9.5 g/dl (14.0-18.0); LYMPHOCYTES # 0.8 10^3/ul (0.8-2.9); LYMPHOCYTES % 9.6 % (15.0-51.0); MEAN CORPUSCULAR HEMOGLOBIN 31.5 pg (29.0-33.0); MEAN CORPUSCULAR HGB CONC 31.5 g/dl (32.0-37.0); MEAN PLATELET VOLUME 8.8 fl (7.4-10.4); MONOCYTE # 1.1 10^3/ul (0.3-0.9); MONOCYTES % 13.6 % (0.0-11.0); NEUTROPHIL # 5.8 10^3/ul (1.6-7.5); NEUTROPHILS % 73.1 % (39.0-77.0); PLATELET COUNT 159 10^3/UL (140-415); RED BLOOD COUNT 3.02 10^6/ul (4.70-6.10); RED CELL DISTRIBUTION WIDTH 18.3 % (11.5-14.5); WHITE BLOOD COUNT 7.9 10^3/ul (4.8-10.8)
[2016-11-15 07:59] LABS: POTASSIUM 4.2 mmol/L (3.5-5.1)
[2016-11-15 08:02] LABS: CREATININE 2.53 mg/dl (0.61-1.24)
[2016-11-15 08:03] LABS: CALCIUM 7.3 mg/dl (8.4-10.2)
--- NOTE | 2016-11-15 08:25 | PN ---
DATE: 11/15/2016 SUBJECTIVE: Yesterday the patient had hemodialysis yesterday, tolerated it well. The patient had a paracentesis, tolerated it well. No other acute events overnight. No hemoptysis, hematemesis, or hematochezia. OBJECTIVE: VITAL SIGNS: Blood pressure 120/60, respirations 17, pulse 92, temperature 98.2. HEENT: Head is normocephalic. NECK: Supple. HEART: Regular rate. LUNGS: Show diminished breath sounds at the base. ABDOMEN: Soft, nontender to palpation, no rebound or guarding. EXTREMITIES: Negative for clubbing, cyanosis, no edema in the right leg. The patient has a left BK A. DERMATOLOGIC: No rashes. MUSCULOSKELETAL: No joint effusions. NEUROLOGIC: No change in exam. MEDICATIONS: The patient's medications have been reviewed. LABORATORY DATA: Currently pending. ASSESSMENT AND PLAN: 1. End-stage renal disease. The patient is on dialysis Saturday, Saturday, Saturday. Anticipate dial ysis tomorrow for 3 hours, 3 K bath, calcium 2.5. Will ultrafiltrate as tolerated. 2. Anemia of end-stage renal disease. Hemoglobin levels have been stable. Continue Epogen. 3. Mineral bone disorder. Continue to monitor calcium and phosphorus levels. Continue supplementa tion at this time. 4. Volume overload. The patient is clinically improving. Continue ultrafiltration dialysis. 5. Sepsis secondary to pneumonia. The patient is on antibiotics, continue. 6. Ventilator dependent respiratory failure. Vent settings have been reviewed. Continue to monito r. 7. Dysphagia status post percutaneous endoscopic gastrostomy, continue tube feeding. 8. Coronary artery disease. Continue medical management. 9. Diabetes. Continue Accu-Cheks and insulin sliding scale. 10. Depression and anxiety disorder. Continue current treatment plan. 11. Hypertension. The patient's blood pressure medications have been adjusted by cardiology. Will continue to monitor. 12. History of congestive heart failure. Continue medical management. 13. Hyponatremia, resolved. Dictated By: SARAHI RINALDI/OLESYA Conf#: [id number] DID#: [id number]
[2016-11-15] MEDS ORDERED: NIFEdipine 10 MG CAP GTB SCH (09:00)
[2016-11-15] MEDS: CALCIUM/VITAMIN D (500/200) TAB GTB SCH (09:09)
[2016-11-15] MEDS: VITAMIN B COMPLEX/VIT C CAP GTB SCH (09:10)
[2016-11-15] MEDS: LACTOBACILLUS CHEW TAB GTB SCH (09:10)
[2016-11-15] MEDS: ASCORBIC ACID 500 MG TAB GTB SCH (09:10)
[2016-11-15] MEDS: NEUTRA-PHOS 250 MG PACKET GTB SCH ×2 (09:10→20:01)
[2016-11-15] MEDS: SILDENAFIL 20 MG TAB GTB SCH ×2 (09:10→20:01)
[2016-11-15] MEDS: COLLAGENASE 30 GM TUBE TOP SCH (09:11)
[2016-11-15] MEDS: ZINC SULFATE 220 MG CAP GTB SCH (09:11)
[2016-11-15] MEDS: FLUTICASONE 0.05% 16 GM NAS SPRAY NASAL SCH ×2 (09:11→20:01)
[2016-11-15] MEDS: MUPIROCIN 2% 22 GM OINT TOP SCH ×2 (09:11→20:02)
[2016-11-15] MEDS: DULOXETINE 30 MG CAP DR GTB SCH (09:11)
[2016-11-15] MEDS: LIDOCAINE 5% PATCH TD SCH (09:12)
[2016-11-15] MEDS: INSULIN GLARGINE [LANtus] 3 ML PEN SC SCH (09:25)
[2016-11-15] MEDS: morphine 2 MG INJ IV PRN ×2 (09:37→14:34)
--- NOTE | 2016-11-15 11:11 | CONS ---
Date/Time of Note Date/Time of Note DATE: 11/15/16 TIME: 11:10 Consult Date/Type/Reason Admit Date/Time Nov 08, 2016 at 10:56 Initial Consult Date 11/09/16 Type of Consultation: pulmonary Ordering Provider: GRACIE KATHLEEN Subjective Patient is comfortable as morning no respiratory distress Objective Vital Signs Date Time Temp Pulse Resp B/P Pulse Ox O2 Delivery O2 Flow Rate FiO2 11/15/16 10:00 98.7 84 18 87/44 98 Mechanical Ventilator 11/15/16 09:30 30 Intake and Output 11/14/16 11/14/16 11/15/16 15:00 23:00 07:00 Intake Total 640 ml 700 ml Balance 640 ml 700 ml Exam PHYSICAL EXAMINATION GENERAL: Elderly gentleman, on mechanical ventilation VITAL SIGNS: see below. HEENT: Pupils equal, round, and reactive to light. Tracheostomy site clean and intact. CARDIAC: S1, S2, CHEST: Diminished air entry bilaterally. ABDOMEN: Mildly distended. No bowel sounds. EXTREMITIES: No cyanosis, clubbing edema +1 NEUROLOGIC: No focal deficits. Results/Medications Result Diagram: 11/15/16 0700 11/15/16 0700 Results 24 hrs Laboratory Tests Test 11/14/16 11:52 11/14/16 17:25 11/14/16 21:00 11/14/16 23:36 Bedside Glucose 152 145 94 Hemoglobin 10.5 L Hematocrit 33.6 L Test 11/15/16 05:03 11/15/16 07:00 Bedside Glucose 99 White Blood Count 7.9 Red Blood Count 3.02 L Hemoglobin 9.5 L Hematocrit 30.2 L Mean Corpuscular Volume 100.0 Mean Corpuscular Hemoglobin 31.5 Mean Corpuscular Hemoglobin Concent 31.5 L Red Cell Distribution Width 18.3 H Platelet Count 159 Mean Platelet Volume 8.8 Neutrophils % 73.1 Lymphocytes % 9.6 L Monocytes % 13.6 H Eosinophils % 2.4 Basophils % 0.5 Nucleated Red Blood Cells % 0.0 Neutrophils # 5.8 Lymphocytes # 0.8 Monocytes # 1.1 H Eosinophils # 0.2 Basophils # 0.0 Nucleated Red Blood Cells # 0.0 Sodium Level 139 Potassium Level 4.2 Chloride Level 105 Carbon Dioxide Level 28 Anion Gap 10 Blood Urea Nitrogen 42 #H Creatinine 2.53 H Glucose Level 131 Calcium Level 7.3 L Medications Current Medications Lidocaine (Lidoderm) 1 patch DAILY TD Last administered on 11/15/16 09:12; Admin Dose 1 PATCH; Start 11/08/16 at 15:30 Acetaminophen (Tylenol Liquid) 325 mg Q4H PRN GTB MILD PAIN LEVEL 1-3 Last administered on 11/15/16 05:11; Admin Dose 325 MG; Start 11/08/16 at 15:30 Acetaminophen (Tylenol Liquid) 650 mg Q4H PRN GTB MODERATE PAIN LEVEL 4-6 Last administered on 11/09/16 05:28; Admin Dose 650 MG; Start 11/08/16 at 15:30 Ascorbic Acid (Vitamin C) 500 mg DAILY GTB Last administered on 11/15/16 09:10 ; Admin Dose 500 MG; Start 11/09/16 at 09:00 Atorvastatin Calcium (Lipitor) 40 mg QHS GTB Last administered on 11/14/16 21: 25; Admin Dose 40 MG; Start 11/08/16 at 21:00 Carvedilol (Coreg) 3.125 mg BID GTB Last administered on 11/15/16 09:10; Admin Dose 3.125 MG; Start 11/08/16 at 21:00 Duloxetine HCl (Cymbalta) 30 mg DAILY GTB Last administered on 11/15/16 09:11 ; Admin Dose 30 MG; Start 11/09/16 at 09:00 Fluticasone Propionate (Flonase 0.05% Nasal) 1 spray BID NASAL Last administered on 11/15/16 09:11; Admin Dose 1 SPRAY; Start 11/08/16 at 21:00 Insulin Glargine (Lantus) 10 unit DAILY SC Last administered on 11/15/16 09:25 ; Admin Dose 10 UNIT; Start 11/09/16 at 09:00 Lactobacillus Acidoph/Bulgaricus (Floranex) 1 tab DAILY GTB Last administered on 11/15/16 09:10; Admin Dose 1 TAB; Start 11/09/16 at 09:00 Sildenafil Citrate (Revatio) 20 mg BID GTB Last administered on 11/15/16 09:10 ; Admin Dose 20 MG; Start 11/08/16 at 21:00 Zinc Sulfate (Zinc Sulfate) 220 mg DAILY GTB Last administered on 11/15/16 09: 11; Admin Dose 220 MG; Start 11/09/16 at 09:00 Vitamin B Complex/ Vitamin C (Berocca) 1 cap DAILY GTB Last administered on 09:10; Admin Dose 1 CAP; Start 11/09/16 at 09:00 Miscellaneous Information 1 ea NOTE XX ; Start 11/08/16 at 16:00 Glucose (Glutose) 15 gm Q15M PRN PO DECREASED GLUCOSE; Start 11/08/16 at 16:00 Glucose (Glutose) 22.5 gm Q15M PRN PO DECREASED GLUCOSE; Start 11/08/16 at 16: 00 Dextrose (D50w Syringe) 25 ml Q15M PRN IV DECREASED GLUCOSE; Start 11/08/16 at 16:00 Dextrose (D50w Syringe) 50 ml Q15M PRN IV DECREASED GLUCOSE; Start 11/08/16 at 16:00 Glucagon (Glucagen) 1 mg Q15M PRN IM DECREASED GLUCOSE; Start 11/08/16 at 16:00 Glucose (Glutose) 15 gm Q15M PRN BUCCAL DECREASED GLUCOSE; Start 11/08/16 at 16 :00 Acetaminophen/ Hydrocodone Bitart ([place] (5/325)) 1 tab Q4H PRN PO SEVERE PAIN 7-10 Last administered on 11/14/16 21:25; Admin Dose 1 TAB; Start 11/08/16 at 21:00 Morphine Sulfate (morphine) 2 mg Q4H PRN IV PAIN LEVEL 7-10 Last administered on 11/15/16 09:37; Admin Dose 2 MG; Start 11/09/16 at 11:00 Collagenase (Santyl) 1 applic DAILY TOP Last administered on 11/15/16 09:11; Admin Dose 1 APPLIC; Start 11/09/16 at 16:00 Lorazepam (Ativan) 1 mg Q6H PRN IV AGITATION/ANXIETY Last administered on 00:40; Admin Dose 1 MG; Start 11/09/16 at 20:30 Pantoprazole (Protonix Iv) 40 mg BID@06,18 IV Last administered on 11/15/16 05 :07; Admin Dose 40 MG; Start 11/10/16 at 06:00 Sodium Phosphate (Neutra-Phos) 250 mg BID GTB Last administered on 11/15/16 09 :10; Admin Dose 250 MG; Start 11/10/16 at 09:00 Mupirocin (Bactroban) 1 applic BID TOP Last administered on 11/15/16 09:11; Admin Dose 1 APPLIC; Start 11/10/16 at 12:30 Insulin Aspart NOVOLOG *MILD* ALGORI... Q6 SC Last administered on 11/14/16 17 :37; Admin Dose 1 UNIT; Start 11/11/16 at 00:00 Metronidazole (Flagyl 500 Mg (Pmx)) 100 ml @ 100 mls/hr Q8 IVPB Last administered on 11/15/16 05:11; Admin Dose 100 MLS/HR; Start 11/11/16 at 14:00 Calcium/Vitamin D 1 tab 1 tab DAILY GTB Last administered on 11/15/16 09:09; Admin Dose 1 TAB; Start 11/12/16 at 11:00 Cefepime HCl/ Sodium Chloride (Maxipime/NS) 50 ml @ 100 mls/hr Q24H IVPB Last administered on 11/14/16 16:04; Admin Dose 100 MLS/HR; Start 11/12/16 at 14:00 Nifedipine (Procardia) 30 mg DAILY GTB Last administered on 11/15/16 09:10; Admin Dose 30 MG; Start 11/15/16 at 09:00 Assessment/Plan Chief Complaint/Hosp Course Assessment 1. Vent dependent respiratory failure 2. End-stage renal failure on hemodialysis 3. Recent urinary tract infection with sepsis 4. Anemia of chronic disease and possibly secondary to renal dysfunction 5. Dysphagia with G-tube Plan 1. Continue mechanical ventilation 2. Tube feeding as tolerated 3. Hemodialysis per nephrology 4. Antibiotics per infectious diseases 5. DVT and GI prophylaxis Disposition Consider transfer back to custodial facility Problems: VALERIE CAMARENA MD, [facility] Nov 15, 2016 11:11
--- NOTE | 2016-11-15 13:53 | PN ---
Date/Time of Note Date/Time of Note DATE: 11/15/16 TIME: 13:50 Assessment/Plan VTE Prophylaxis VTE Prophylaxis Intervention: other (per pmd) Lines/Catheters IV Catheter Type (from Nrsg): Saline Lock Urinary Cath still in place: No Assessment/Plan Chief Complaint/Hosp Course a] r/o S B P plan paracentesis Problems: Assessment/Plan a]] gi bleeding stable on ppi on novosourse ascitic fluid transudate plan cont current rx Subjective 24 Hr Interval Summary Free Text/Dictation alert no complaints Exam/Review of Systems Vital Signs Vitals Vital Signs Date Time Temp Pulse Resp B/P Pulse Ox O2 Delivery O2 Flow Rate FiO2 11/15/16 12:39 82 11/15/16 11:21 98.3 20 82/46 95 11/15/16 11:05 30 11/15/16 10:00 Mechanical Ventilator Intake and Output 11/14/16 11/14/16 11/15/16 15:00 23:00 07:00 Intake Total 640 ml 700 ml Balance 640 ml 700 ml Exam s/p paracentesis ascitic fluid wbcs 101 abd non tender Results Result Diagram: 11/15/16 0700 11/15/16 0700 Results 24 hrs Laboratory Tests Test 11/14/16 17:25 11/14/16 21:00 11/14/16 23:36 11/15/16 05:03 Bedside Glucose 145 94 99 Hemoglobin 10.5 L Hematocrit 33.6 L Test 11/15/16 07:00 11/15/16 11:33 White Blood Count 7.9 Red Blood Count 3.02 L Hemoglobin 9.5 L Hematocrit 30.2 L Mean Corpuscular Volume 100.0 Mean Corpuscular Hemoglobin 31.5 Mean Corpuscular Hemoglobin Concent 31.5 L Red Cell Distribution Width 18.3 H Platelet Count 159 Mean Platelet Volume 8.8 Neutrophils % 73.1 Lymphocytes % 9.6 L Monocytes % 13.6 H Eosinophils % 2.4 Basophils % 0.5 Nucleated Red Blood Cells % 0.0 Neutrophils # 5.8 Lymphocytes # 0.8 Monocytes # 1.1 H Eosinophils # 0.2 Basophils # 0.0 Nucleated Red Blood Cells # 0.0 Sodium Level 139 Potassium Level 4.2 Chloride Level 105 Carbon Dioxide Level 28 Anion Gap 10 Blood Urea Nitrogen 42 #H Creatinine 2.53 H Glucose Level 131 Calcium Level 7.3 L Bedside Glucose 167 Medications Medications Current Medications Lidocaine (Lidoderm) 1 patch DAILY TD Last administered on 11/15/16 09:12; Admin Dose 1 PATCH; Start 11/08/16 at 15:30 Acetaminophen (Tylenol Liquid) 325 mg Q4H PRN GTB MILD PAIN LEVEL 1-3 Last administered on 11/15/16 05:11; Admin Dose 325 MG; Start 11/08/16 at 15:30 Acetaminophen (Tylenol Liquid) 650 mg Q4H PRN GTB MODERATE PAIN LEVEL 4-6 Last administered on 11/09/16 05:28; Admin Dose 650 MG; Start 11/08/16 at 15:30 Ascorbic Acid (Vitamin C) 500 mg DAILY GTB Last administered on 11/15/16 09:10 ; Admin Dose 500 MG; Start 11/09/16 at 09:00 Atorvastatin Calcium (Lipitor) 40 mg QHS GTB Last administered on 11/14/16 21: 25; Admin Dose 40 MG; Start 11/08/16 at 21:00 Carvedilol (Coreg) 3.125 mg BID GTB Last administered on 11/15/16 09:10; Admin Dose 3.125 MG; Start 11/08/16 at 21:00 Duloxetine HCl (Cymbalta) 30 mg DAILY GTB Last administered on 11/15/16 09:11 ; Admin Dose 30 MG; Start 11/09/16 at 09:00 Fluticasone Propionate (Flonase 0.05% Nasal) 1 spray BID NASAL Last administered on 11/15/16 09:11; Admin Dose 1 SPRAY; Start 11/08/16 at 21:00 Insulin Glargine (Lantus) 10 unit DAILY SC Last administered on 11/15/16 09:25 ; Admin Dose 10 UNIT; Start 11/09/16 at 09:00 Lactobacillus Acidoph/Bulgaricus (Floranex) 1 tab DAILY GTB Last administered on 11/15/16 09:10; Admin Dose 1 TAB; Start 11/09/16 at 09:00 Sildenafil Citrate (Revatio) 20 mg BID GTB Last administered on 11/15/16 09:10 ; Admin Dose 20 MG; Start 11/08/16 at 21:00 Zinc Sulfate (Zinc Sulfate) 220 mg DAILY GTB Last administered on 11/15/16 09: 11; Admin Dose 220 MG; Start 11/09/16 at 09:00 Vitamin B Complex/ Vitamin C (Berocca) 1 cap DAILY GTB Last administered on 09:10; Admin Dose 1 CAP; Start 11/09/16 at 09:00 Miscellaneous Information 1 ea NOTE XX ; Start 11/08/16 at 16:00 Glucose (Glutose) 15 gm Q15M PRN PO DECREASED GLUCOSE; Start 11/08/16 at 16:00 Glucose (Glutose) 22.5 gm Q15M PRN PO DECREASED GLUCOSE; Start 11/08/16 at 16: 00 Dextrose (D50w Syringe) 25 ml Q15M PRN IV DECREASED GLUCOSE; Start 11/08/16 at 16:00 Dextrose (D50w Syringe) 50 ml Q15M PRN IV DECREASED GLUCOSE; Start 11/08/16 at 16:00 Glucagon (Glucagen) 1 mg Q15M PRN IM DECREASED GLUCOSE; Start 11/08/16 at 16:00 Glucose (Glutose) 15 gm Q15M PRN BUCCAL DECREASED GLUCOSE; Start 11/08/16 at 16 :00 Acetaminophen/ Hydrocodone Bitart ([place] (5/325)) 1 tab Q4H PRN PO SEVERE PAIN 7-10 Last administered on 11/14/16 21:25; Admin Dose 1 TAB; Start 11/08/16 at 21:00 Morphine Sulfate (morphine) 2 mg Q4H PRN IV PAIN LEVEL 7-10 Last administered on 11/15/16 09:37; Admin Dose 2 MG; Start 11/09/16 at 11:00 Collagenase (Santyl) 1 applic DAILY TOP Last administered on 11/15/16 09:11; Admin Dose 1 APPLIC; Start 11/09/16 at 16:00 Lorazepam (Ativan) 1 mg Q6H PRN IV AGITATION/ANXIETY Last administered on 00:40; Admin Dose 1 MG; Start 11/09/16 at 20:30 Pantoprazole (Protonix Iv) 40 mg BID@06,18 IV Last administered on 11/15/16 05 :07; Admin Dose 40 MG; Start 11/10/16 at 06:00 Sodium Phosphate (Neutra-Phos) 250 mg BID GTB Last administered on 11/15/16 09 :10; Admin Dose 250 MG; Start 11/10/16 at 09:00 Mupirocin (Bactroban) 1 applic BID TOP Last administered on 11/15/16 09:11; Admin Dose 1 APPLIC; Start 11/10/16 at 12:30 Insulin Aspart NOVOLOG *MILD* ALGORI... Q6 SC Last administered on 11/15/16 11 :36; Admin Dose 1 UNIT; Start 11/11/16 at 00:00 Metronidazole (Flagyl 500 Mg (Pmx)) 100 ml @ 100 mls/hr Q8 IVPB Last administered on 11/15/16 13:18; Admin Dose 100 MLS/HR; Start 11/11/16 at 14:00 Calcium/Vitamin D 1 tab 1 tab DAILY GTB Last administered on 11/15/16 09:09; Admin Dose 1 TAB; Start 11/12/16 at 11:00 Cefepime HCl/ Sodium Chloride (Maxipime/NS) 50 ml @ 100 mls/hr Q24H IVPB Last administered on 11/14/16 16:04; Admin Dose 100 MLS/HR; Start 11/12/16 at 14:00 Nifedipine (Procardia) 30 mg DAILY GTB Last administered on 11/15/16 09:10; Admin Dose 30 MG; Start 11/15/16 at 09:00 AIME PATTERSON MD Nov 15, 2016 13:53
--- NOTE | 2016-11-15 14:12 | CONS ---
Date/Time of Note Date/Time of Note DATE: 11/15/16 TIME: 14:10 Assessment/Plan Assessment/Plan Additional Assessment/Plan Paroxysmal atrial tachycardia Possible GI bleed Respiratory failure status post tracheostomy Diastolic congestive heart failure End-stage renal disease on hemodialysis CAD with history of PCI Diabetes Peripheral arterial disease with history of amputation Pulmonary hypertension -Blood pressure trend with episodes of hypotension, would DC Procardia. Fluid management via hemodialysis as per our nephrology colleague Consultation Date/Type/Reason Admit Date/Time Nov 08, 2016 at 10:56 Initial Consult Date 11/09/16 Type of Consultation: cv Referring Provider: GRACIE KATHLEEN 24 HR Interval Summary Free Text/Dictation Patient seen and examined Exam/Review of Systems Vital Signs Vitals Vital Signs Date Time Temp Pulse Resp B/P Pulse Ox O2 Delivery O2 Flow Rate FiO2 11/15/16 12:39 82 11/15/16 11:21 98.3 20 82/46 95 11/15/16 11:05 30 11/15/16 10:00 Mechanical Ventilator Intake and Output 11/14/16 11/14/16 11/15/16 15:00 23:00 07:00 Intake Total 640 ml 700 ml Balance 640 ml 700 ml Exam Sleeping, no apparent distress Head: normocephalic Neck: other (Tracheostomy) Respiratory: other (Coarse breath sounds bilaterally, no wheezing) Cardiovascular: other (S1-S2 heard), regular rate and rhythm Gastrointestinal: bowel sounds, non-tender, other (No guarding), soft Extremities: edema, other (Amputation) Results Result Diagram: 11/15/16 0700 11/15/16 0700 Results 24 hrs Laboratory Tests Test 11/14/16 17:25 11/14/16 21:00 11/14/16 23:36 11/15/16 05:03 Bedside Glucose 145 94 99 Hemoglobin 10.5 L Hematocrit 33.6 L Test 11/15/16 07:00 11/15/16 11:33 White Blood Count 7.9 Red Blood Count 3.02 L Hemoglobin 9.5 L Hematocrit 30.2 L Mean Corpuscular Volume 100.0 Mean Corpuscular Hemoglobin 31.5 Mean Corpuscular Hemoglobin Concent 31.5 L Red Cell Distribution Width 18.3 H Platelet Count 159 Mean Platelet Volume 8.8 Neutrophils % 73.1 Lymphocytes % 9.6 L Monocytes % 13.6 H Eosinophils % 2.4 Basophils % 0.5 Nucleated Red Blood Cells % 0.0 Neutrophils # 5.8 Lymphocytes # 0.8 Monocytes # 1.1 H Eosinophils # 0.2 Basophils # 0.0 Nucleated Red Blood Cells # 0.0 Sodium Level 139 Potassium Level 4.2 Chloride Level 105 Carbon Dioxide Level 28 Anion Gap 10 Blood Urea Nitrogen 42 #H Creatinine 2.53 H Glucose Level 131 Calcium Level 7.3 L Bedside Glucose 167 Medications Medications Current Medications Lidocaine (Lidoderm) 1 patch DAILY TD Last administered on 11/15/16 09:12; Admin Dose 1 PATCH; Start 11/08/16 at 15:30 Acetaminophen (Tylenol Liquid) 325 mg Q4H PRN GTB MILD PAIN LEVEL 1-3 Last administered on 11/15/16 05:11; Admin Dose 325 MG; Start 11/08/16 at 15:30 Acetaminophen (Tylenol Liquid) 650 mg Q4H PRN GTB MODERATE PAIN LEVEL 4-6 Last administered on 11/09/16 05:28; Admin Dose 650 MG; Start 11/08/16 at 15:30 Ascorbic Acid (Vitamin C) 500 mg DAILY GTB Last administered on 11/15/16 09:10 ; Admin Dose 500 MG; Start 11/09/16 at 09:00 Atorvastatin Calcium (Lipitor) 40 mg QHS GTB Last administered on 11/14/16 21: 25; Admin Dose 40 MG; Start 11/08/16 at 21:00 Carvedilol (Coreg) 3.125 mg BID GTB Last administered on 11/15/16 09:10; Admin Dose 3.125 MG; Start 11/08/16 at 21:00 Duloxetine HCl (Cymbalta) 30 mg DAILY GTB Last administered on 11/15/16 09:11 ; Admin Dose 30 MG; Start 11/09/16 at 09:00 Fluticasone Propionate (Flonase 0.05% Nasal) 1 spray BID NASAL Last administered on 11/15/16 09:11; Admin Dose 1 SPRAY; Start 11/08/16 at 21:00 Insulin Glargine (Lantus) 10 unit DAILY SC Last administered on 11/15/16 09:25 ; Admin Dose 10 UNIT; Start 11/09/16 at 09:00 Lactobacillus Acidoph/Bulgaricus (Floranex) 1 tab DAILY GTB Last administered on 11/15/16 09:10; Admin Dose 1 TAB; Start 11/09/16 at 09:00 Sildenafil Citrate (Revatio) 20 mg BID GTB Last administered on 11/15/16 09:10 ; Admin Dose 20 MG; Start 11/08/16 at 21:00 Zinc Sulfate (Zinc Sulfate) 220 mg DAILY GTB Last administered on 11/15/16 09: 11; Admin Dose 220 MG; Start 11/09/16 at 09:00 Vitamin B Complex/ Vitamin C (Berocca) 1 cap DAILY GTB Last administered on 09:10; Admin Dose 1 CAP; Start 11/09/16 at 09:00 Miscellaneous Information 1 ea NOTE XX ; Start 11/08/16 at 16:00 Glucose (Glutose) 15 gm Q15M PRN PO DECREASED GLUCOSE; Start 11/08/16 at 16:00 Glucose (Glutose) 22.5 gm Q15M PRN PO DECREASED GLUCOSE; Start 11/08/16 at 16: 00 Dextrose (D50w Syringe) 25 ml Q15M PRN IV DECREASED GLUCOSE; Start 11/08/16 at 16:00 Dextrose (D50w Syringe) 50 ml Q15M PRN IV DECREASED GLUCOSE; Start 11/08/16 at 16:00 Glucagon (Glucagen) 1 mg Q15M PRN IM DECREASED GLUCOSE; Start 11/08/16 at 16:00 Glucose (Glutose) 15 gm Q15M PRN BUCCAL DECREASED GLUCOSE; Start 11/08/16 at 16 :00 Acetaminophen/ Hydrocodone Bitart ([place] (5/325)) 1 tab Q4H PRN PO SEVERE PAIN 7-10 Last administered on 11/14/16 21:25; Admin Dose 1 TAB; Start 11/08/16 at 21:00 Morphine Sulfate (morphine) 2 mg Q4H PRN IV PAIN LEVEL 7-10 Last administered on 11/15/16 09:37; Admin Dose 2 MG; Start 11/09/16 at 11:00 Collagenase (Santyl) 1 applic DAILY TOP Last administered on 11/15/16 09:11; Admin Dose 1 APPLIC; Start 11/09/16 at 16:00 Lorazepam (Ativan) 1 mg Q6H PRN IV AGITATION/ANXIETY Last administered on 00:40; Admin Dose 1 MG; Start 11/09/16 at 20:30 Pantoprazole (Protonix Iv) 40 mg BID@06,18 IV Last administered on 11/15/16 05 :07; Admin Dose 40 MG; Start 11/10/16 at 06:00 Sodium Phosphate (Neutra-Phos) 250 mg BID GTB Last administered on 11/15/16 09 :10; Admin Dose 250 MG; Start 11/10/16 at 09:00 Mupirocin (Bactroban) 1 applic BID TOP Last administered on 11/15/16 09:11; Admin Dose 1 APPLIC; Start 11/10/16 at 12:30 Insulin Aspart NOVOLOG *MILD* ALGORI... Q6 SC Last administered on 11/15/16 11 :36; Admin Dose 1 UNIT; Start 11/11/16 at 00:00 Metronidazole (Flagyl 500 Mg (Pmx)) 100 ml @ 100 mls/hr Q8 IVPB Last administered on 11/15/16 13:18; Admin Dose 100 MLS/HR; Start 11/11/16 at 14:00 Calcium/Vitamin D 1 tab 1 tab DAILY GTB Last administered on 11/15/16 09:09; Admin Dose 1 TAB; Start 11/12/16 at 11:00 Cefepime HCl/ Sodium Chloride (Maxipime/NS) 50 ml @ 100 mls/hr Q24H IVPB Last administered on 11/14/16 16:04; Admin Dose 100 MLS/HR; Start 11/12/16 at 14:00 Nifedipine (Procardia) 30 mg DAILY GTB Last administered on 11/15/16 09:10; Admin Dose 30 MG; Start 11/15/16 at 09:00 Solo Leon DO Nov 15, 2016 14:12
--- NOTE | 2016-11-15 14:17 | CONS ---
Date/Time of Note Date/Time of Note DATE: 11/15/16 TIME: 14:14 Assessment/Plan Assessment/Plan Chief Complaint/Hosp Course - sepsis - h/o GIB - ascites, possible SBP s/p paracentesis on 11/14/2016 - near complete collapse of RLL with LLL atelectasis, pulmonary edema - h/o severe C diff colitis in 2016 - ESRD on HD - VDRF on trach - G tueb dependence - PVD - s/p L BKA - dyspnea and L sided CP recommendations - I will review results of paracentesis from 11/14/2016, so far does not appear consistent with SBP - plan to d/c empiric SBP treatment if ascetic cultures are negative: renally dosed cefepime (11/12/2016-) and metronidazole (10/14/2016-) management d/w Pt Problems: Consultation Date/Type/Reason Admit Date/Time Nov 08, 2016 at 10:56 Initial Consult Date 11/09/16 Type of Consultation: ID Referring Provider: GRACIE KATHLEEN 24 HR Interval Summary Subjective hx not possible: pt non-verbal (communicates by moving her head) Detailed Summary Respiratory: other (trach) Cardiovascular: No chest pain Gastrointestinal: pain (diffuse abdominal), No diarrhea, No nausea Genitourinary: other (HD) Exam/Review of Systems Vital Signs Vitals Vital Signs Date Time Temp Pulse Resp B/P Pulse Ox O2 Delivery O2 Flow Rate FiO2 11/15/16 12:39 82 11/15/16 11:21 98.3 20 82/46 95 11/15/16 11:05 30 11/15/16 10:00 Mechanical Ventilator Intake and Output 11/14/16 11/14/16 11/15/16 15:00 23:00 07:00 Intake Total 640 ml 700 ml Balance 640 ml 700 ml Exam Constitutional: frail, non-verbal Psych: nl mood/affect Head: atraumatic, normocephalic Eyes: nl conjunctiva, nl lids ENMT: nl external ears & nose Neck: other (trach) Respiratory: diminished breath sounds Cardiovascular: nl pulses, regular rate and rhythm Gastrointestinal: soft, tender (mildly, diffusely, Pt did not localize when I asked), No distended Musculoskeletal: nl extremities to inspection Extremities: other (s/p L BKA) Neurological: confused, lethargic Skin: nl turgor Results Result Diagram: 11/15/16 0700 11/15/16 0700 Results 24 hrs Laboratory Tests Test 11/14/16 17:25 11/14/16 21:00 11/14/16 23:36 11/15/16 05:03 Bedside Glucose 145 94 99 Hemoglobin 10.5 L Hematocrit 33.6 L Test 11/15/16 07:00 11/15/16 11:33 White Blood Count 7.9 Red Blood Count 3.02 L Hemoglobin 9.5 L Hematocrit 30.2 L Mean Corpuscular Volume 100.0 Mean Corpuscular Hemoglobin 31.5 Mean Corpuscular Hemoglobin Concent 31.5 L Red Cell Distribution Width 18.3 H Platelet Count 159 Mean Platelet Volume 8.8 Neutrophils % 73.1 Lymphocytes % 9.6 L Monocytes % 13.6 H Eosinophils % 2.4 Basophils % 0.5 Nucleated Red Blood Cells % 0.0 Neutrophils # 5.8 Lymphocytes # 0.8 Monocytes # 1.1 H Eosinophils # 0.2 Basophils # 0.0 Nucleated Red Blood Cells # 0.0 Sodium Level 139 Potassium Level 4.2 Chloride Level 105 Carbon Dioxide Level 28 Anion Gap 10 Blood Urea Nitrogen 42 #H Creatinine 2.53 H Glucose Level 131 Calcium Level 7.3 L Bedside Glucose 167 Medications Medications Current Medications Lidocaine (Lidoderm) 1 patch DAILY TD Last administered on 11/15/16 09:12; Admin Dose 1 PATCH; Start 11/08/16 at 15:30 Acetaminophen (Tylenol Liquid) 325 mg Q4H PRN GTB MILD PAIN LEVEL 1-3 Last administered on 11/15/16 05:11; Admin Dose 325 MG; Start 11/08/16 at 15:30 Acetaminophen (Tylenol Liquid) 650 mg Q4H PRN GTB MODERATE PAIN LEVEL 4-6 Last administered on 11/09/16 05:28; Admin Dose 650 MG; Start 11/08/16 at 15:30 Ascorbic Acid (Vitamin C) 500 mg DAILY GTB Last administered on 11/15/16 09:10 ; Admin Dose 500 MG; Start 11/09/16 at 09:00 Atorvastatin Calcium (Lipitor) 40 mg QHS GTB Last administered on 11/14/16 21: 25; Admin Dose 40 MG; Start 11/08/16 at 21:00 Carvedilol (Coreg) 3.125 mg BID GTB Last administered on 11/15/16 09:10; Admin Dose 3.125 MG; Start 11/08/16 at 21:00 Duloxetine HCl (Cymbalta) 30 mg DAILY GTB Last administered on 11/15/16 09:11 ; Admin Dose 30 MG; Start 11/09/16 at 09:00 Fluticasone Propionate (Flonase 0.05% Nasal) 1 spray BID NASAL Last administered on 11/15/16 09:11; Admin Dose 1 SPRAY; Start 11/08/16 at 21:00 Insulin Glargine (Lantus) 10 unit DAILY SC Last administered on 11/15/16 09:25 ; Admin Dose 10 UNIT; Start 11/09/16 at 09:00 Lactobacillus Acidoph/Bulgaricus (Floranex) 1 tab DAILY GTB Last administered on 11/15/16 09:10; Admin Dose 1 TAB; Start 11/09/16 at 09:00 Sildenafil Citrate (Revatio) 20 mg BID GTB Last administered on 11/15/16 09:10 ; Admin Dose 20 MG; Start 11/08/16 at 21:00 Zinc Sulfate (Zinc Sulfate) 220 mg DAILY GTB Last administered on 11/15/16 09: 11; Admin Dose 220 MG; Start 11/09/16 at 09:00 Vitamin B Complex/ Vitamin C (Berocca) 1 cap DAILY GTB Last administered on 09:10; Admin Dose 1 CAP; Start 11/09/16 at 09:00 Miscellaneous Information 1 ea NOTE XX ; Start 11/08/16 at 16:00 Glucose (Glutose) 15 gm Q15M PRN PO DECREASED GLUCOSE; Start 11/08/16 at 16:00 Glucose (Glutose) 22.5 gm Q15M PRN PO DECREASED GLUCOSE; Start 11/08/16 at 16: 00 Dextrose (D50w Syringe) 25 ml Q15M PRN IV DECREASED GLUCOSE; Start 11/08/16 at 16:00 Dextrose (D50w Syringe) 50 ml Q15M PRN IV DECREASED GLUCOSE; Start 11/08/16 at 16:00 Glucagon (Glucagen) 1 mg Q15M PRN IM DECREASED GLUCOSE; Start 11/08/16 at 16:00 Glucose (Glutose) 15 gm Q15M PRN BUCCAL DECREASED GLUCOSE; Start 11/08/16 at 16 :00 Acetaminophen/ Hydrocodone Bitart ([place] (5/325)) 1 tab Q4H PRN PO SEVERE PAIN 7-10 Last administered on 11/14/16 21:25; Admin Dose 1 TAB; Start 11/08/16 at 21:00 Morphine Sulfate (morphine) 2 mg Q4H PRN IV PAIN LEVEL 7-10 Last administered on 11/15/16 09:37; Admin Dose 2 MG; Start 11/09/16 at 11:00 Collagenase (Santyl) 1 applic DAILY TOP Last administered on 11/15/16 09:11; Admin Dose 1 APPLIC; Start 11/09/16 at 16:00 Lorazepam (Ativan) 1 mg Q6H PRN IV AGITATION/ANXIETY Last administered on 00:40; Admin Dose 1 MG; Start 11/09/16 at 20:30 Pantoprazole (Protonix Iv) 40 mg BID@06,18 IV Last administered on 11/15/16 05 :07; Admin Dose 40 MG; Start 11/10/16 at 06:00 Sodium Phosphate (Neutra-Phos) 250 mg BID GTB Last administered on 11/15/16 09 :10; Admin Dose 250 MG; Start 11/10/16 at 09:00 Mupirocin (Bactroban) 1 applic BID TOP Last administered on 11/15/16 09:11; Admin Dose 1 APPLIC; Start 11/10/16 at 12:30 Insulin Aspart NOVOLOG *MILD* ALGORI... Q6 SC Last administered on 11/15/16 11 :36; Admin Dose 1 UNIT; Start 11/11/16 at 00:00 Metronidazole (Flagyl 500 Mg (Pmx)) 100 ml @ 100 mls/hr Q8 IVPB Last administered on 11/15/16 13:18; Admin Dose 100 MLS/HR; Start 11/11/16 at 14:00 Calcium/Vitamin D 1 tab 1 tab DAILY GTB Last administered on 11/15/16 09:09; Admin Dose 1 TAB; Start 11/12/16 at 11:00 Cefepime HCl/ Sodium Chloride (Maxipime/NS) 50 ml @ 100 mls/hr Q24H IVPB Last administered on 11/14/16 16:04; Admin Dose 100 MLS/HR; Start 11/12/16 at 14:00 SADIA LONDON M.D. Nov 15, 2016 14:17
[2016-11-15] MEDS: CEFEPIME HCL 0.5 GM in SOD CHLORIDE 0.9% 50 ML IVPB SCH (14:34)
--- NOTE | 2016-11-15 18:43 | PN ---
Date/Time of Note Date/Time of Note DATE: 11/15/16 TIME: 18:42 Assessment/Plan Lines/Catheters IV [facility] Type [facility]from [facility] Urinary Cath still in place: No Assessment/Plan Assessment/Plan - Esophagitis per EGD. Continue Protonix Dr. Hernandez is following in gastroenterology consultation. - Anemia of chronic disease, on Epogen, continue to monitor hemoglobin and hematocrit, transfuse as needed. - Ascites, possible SBP. Status post paracentesis 11/14, follow-up on ascitic fluid culture, continue antibiotics per ID. - Systemic inflammatory response syndrome with leukocytosis, patient is followed by Dr. Benjamin deluna in infection disease consultation. - End-stage renal disease, hemodialysis dependent. Continue hemodialysis per nephrology. - Chronic respiratory failure with tracheostomy. Dr. Sahu is following in pulmonology consultation. - Coronary artery disease with history of PCI. - Diastolic congestive heart failure - Pulmonary hypertension - Peripheral vascular disease, status post left BKA. - Diabetes mellitus type 2, continue NovoLog per sliding scale. - Sacral decub present on admission. Continue current wound care. Subjective 24 Hr Interval Summary Free Text/Dictation NAD, SEEMS COMFORTABLE. DW STAFF Eyes: no complaints ENT: no complaints Exam/Review of Systems Vital Signs Vitals Vital Signs Date Time Temp Pulse Resp B/P Pulse Ox O2 Delivery O2 Flow Rate FiO2 11/15/16 17:25 70 22 100 30 11/15/16 14:00 98.2 117/74 Mechanical Ventilator Intake and Output 11/14/16 11/14/16 11/15/16 15:00 23:00 07:00 Intake Total 640 ml 700 ml Balance 640 ml 700 ml Exam Constitutional: alert, well developed Psych: no complaints Eyes: nl sclera ENMT: nl external ears & nose Neck: non-tender Respiratory: diminished breath sounds Cardiovascular: nl pulses Gastrointestinal: non-tender, soft Musculoskeletal: other Extremities: normal pulses Neurological: confused Skin: other Lymph: nontender Results Result Diagram: 11/15/16 0700 11/15/16 0700 Results 24 hrs Laboratory Tests Test 11/14/16 21:00 11/14/16 23:36 11/15/16 05:03 11/15/16 07:00 Hemoglobin 10.5 L 9.5 L Hematocrit 33.6 L 30.2 L Bedside Glucose 94 99 White Blood Count 7.9 Red Blood Count 3.02 L Mean Corpuscular Volume 100.0 Mean Corpuscular Hemoglobin 31.5 Mean Corpuscular Hemoglobin Concent 31.5 L Red Cell Distribution Width 18.3 H Platelet Count 159 Mean Platelet Volume 8.8 Neutrophils % 73.1 Lymphocytes % 9.6 L Monocytes % 13.6 H Eosinophils % 2.4 Basophils % 0.5 Nucleated Red Blood Cells % 0.0 Neutrophils # 5.8 Lymphocytes # 0.8 Monocytes # 1.1 H Eosinophils # 0.2 Basophils # 0.0 Nucleated Red Blood Cells # 0.0 Sodium Level 139 Potassium Level 4.2 Chloride Level 105 Carbon Dioxide Level 28 Anion Gap 10 Blood Urea Nitrogen 42 #H Creatinine 2.53 H Glucose Level 131 Calcium Level 7.3 L Test 11/15/16 11:33 11/15/16 17:16 Bedside Glucose 167 135 Medications Medications Current Medications Lidocaine (Lidoderm) 1 patch DAILY TD Last administered on 11/15/16 09:12; Admin Dose 1 PATCH; Start 11/08/16 at 15:30 Acetaminophen (Tylenol Liquid) 325 mg Q4H PRN GTB MILD PAIN LEVEL 1-3 Last administered on 11/15/16 05:11; Admin Dose 325 MG; Start 11/08/16 at 15:30 Acetaminophen (Tylenol Liquid) 650 mg Q4H PRN GTB MODERATE PAIN LEVEL 4-6 Last administered on 11/09/16 05:28; Admin Dose 650 MG; Start 11/08/16 at 15:30 Ascorbic Acid (Vitamin C) 500 mg DAILY GTB Last administered on 11/15/16 09:10 ; Admin Dose 500 MG; Start 11/09/16 at 09:00 Atorvastatin Calcium (Lipitor) 40 mg QHS GTB Last administered on 11/14/16 21: 25; Admin Dose 40 MG; Start 11/08/16 at 21:00 Carvedilol (Coreg) 3.125 mg BID GTB Last administered on 11/15/16 09:10; Admin Dose 3.125 MG; Start 11/08/16 at 21:00 Duloxetine HCl (Cymbalta) 30 mg DAILY GTB Last administered on 11/15/16 09:11 ; Admin Dose 30 MG; Start 11/09/16 at 09:00 Fluticasone Propionate (Flonase 0.05% Nasal) 1 spray BID NASAL Last administered on 11/15/16 09:11; Admin Dose 1 SPRAY; Start 11/08/16 at 21:00 Insulin Glargine (Lantus) 10 unit DAILY SC Last administered on 11/15/16 09:25 ; Admin Dose 10 UNIT; Start 11/09/16 at 09:00 Lactobacillus Acidoph/Bulgaricus (Floranex) 1 tab DAILY GTB Last administered on 11/15/16 09:10; Admin Dose 1 TAB; Start 11/09/16 at 09:00 Sildenafil Citrate (Revatio) 20 mg BID GTB Last administered on 11/15/16 09:10 ; Admin Dose 20 MG; Start 11/08/16 at 21:00 Zinc Sulfate (Zinc Sulfate) 220 mg DAILY GTB Last administered on 11/15/16 09: 11; Admin Dose 220 MG; Start 11/09/16 at 09:00 Vitamin B Complex/ Vitamin C (Berocca) 1 cap DAILY GTB Last administered on 09:10; Admin Dose 1 CAP; Start 11/09/16 at 09:00 Miscellaneous Information 1 ea NOTE XX ; Start 11/08/16 at 16:00 Glucose (Glutose) 15 gm Q15M PRN PO DECREASED GLUCOSE; Start 11/08/16 at 16:00 Glucose (Glutose) 22.5 gm Q15M PRN PO DECREASED GLUCOSE; Start 11/08/16 at 16: 00 Dextrose (D50w Syringe) 25 ml Q15M PRN IV DECREASED GLUCOSE; Start 11/08/16 at 16:00 Dextrose (D50w Syringe) 50 ml Q15M PRN IV DECREASED GLUCOSE; Start 11/08/16 at 16:00 Glucagon (Glucagen) 1 mg Q15M PRN IM DECREASED GLUCOSE; Start 11/08/16 at 16:00 Glucose (Glutose) 15 gm Q15M PRN BUCCAL DECREASED GLUCOSE; Start 11/08/16 at 16 :00 Acetaminophen/ Hydrocodone Bitart ([place] (5/325)) 1 tab Q4H PRN PO SEVERE PAIN 7-10 Last administered on 11/14/16 21:25; Admin Dose 1 TAB; Start 11/08/16 at 21:00 Morphine Sulfate (morphine) 2 mg Q4H PRN IV PAIN LEVEL 7-10 Last administered on 11/15/16 14:34; Admin Dose 2 MG; Start 11/09/16 at 11:00 Collagenase (Santyl) 1 applic DAILY TOP Last administered on 11/15/16 09:11; Admin Dose 1 APPLIC; Start 11/09/16 at 16:00 Lorazepam (Ativan) 1 mg Q6H PRN IV AGITATION/ANXIETY Last administered on 00:40; Admin Dose 1 MG; Start 11/09/16 at 20:30 Pantoprazole (Protonix Iv) 40 mg BID@06,18 IV Last administered on 11/15/16 17 :19; Admin Dose 40 MG; Start 11/10/16 at 06:00 Sodium Phosphate (Neutra-Phos) 250 mg BID GTB Last administered on 11/15/16 09 :10; Admin Dose 250 MG; Start 11/10/16 at 09:00 Mupirocin (Bactroban) 1 applic BID TOP Last administered on 11/15/16 09:11; Admin Dose 1 APPLIC; Start 11/10/16 at 12:30 Insulin Aspart NOVOLOG *MILD* ALGORI... Q6 SC Last administered on 11/15/16 11 :36; Admin Dose 1 UNIT; Start 11/11/16 at 00:00 Metronidazole (Flagyl 500 Mg (Pmx)) 100 ml @ 100 mls/hr Q8 IVPB Last administered on 11/15/16 13:18; Admin Dose 100 MLS/HR; Start 11/11/16 at 14:00 Calcium/Vitamin D 1 tab 1 tab DAILY GTB Last administered on 11/15/16 09:09; Admin Dose 1 TAB; Start 11/12/16 at 11:00 Cefepime HCl/ Sodium Chloride (Maxipime/NS) 50 ml @ 100 mls/hr Q24H IVPB Last administered on 11/15/16 14:34; Admin Dose 100 MLS/HR; Start 11/12/16 at 14:00 GRACIE KATHLEEN Nov 15, 2016 18:43
[2016-11-15] MEDS: ATORVASTATIN 40 MG TAB GTB SCH (20:00)
[2016-11-15] MEDS: HYDROCODONE/APAP (5/325) TAB PO PRN (20:00)
[2016-11-15 23:16] LABS: HEMATOCRIT 31.9 % (42.0-52.0); HEMOGLOBIN 9.8 g/dl (14.0-18.0)
[2016-11-16] VITALS (33 sets, daily range): BP systolic 89–120; BP diastolic 48–75; PULSE 71–103; RESP 15–25
[2016-11-16] MEDS: LORAZEPAM 2 MG INJ IV PRN (00:30)
[2016-11-16] MEDS: PANTOPRAZOLE 40 MG INJ IV SCH ×2 (05:03→18:10)
[2016-11-16] MEDS: metroNIDAZOLE 500 MG/NS (PMX) 100 ML IVPB SCH ×3 (05:06→21:08)
[2016-11-16] MEDS: INSULIN ASPART [NOVOLOG] 3 ML PEN SC SCH ×4 (05:14→23:50)
[2016-11-16 07:25] LABS: ADD SCAN DIFF NO
[2016-11-16 07:33] LABS: BASOPHIL # 0.1 10^3/ul (0.0-0.1); BASOPHILS % 0.5 % (0.0-2.0); EOSINOPHILS # 0.2 10^3/ul (0.0-0.5); EOSINOPHILS % 2.4 % (0.0-7.0); HEMATOCRIT 33.2 % (42.0-52.0); HEMOGLOBIN 10.4 g/dl (14.0-18.0); LYMPHOCYTES # 0.8 10^3/ul (0.8-2.9); LYMPHOCYTES % 8.1 % (15.0-51.0); MEAN CORPUSCULAR HEMOGLOBIN 30.8 pg (29.0-33.0); MEAN CORPUSCULAR HGB CONC 31.3 g/dl (32.0-37.0); MEAN CORPUSCULAR VOLUME 98.2 fl (82.0-101.0); MEAN PLATELET VOLUME 9.9 fl (7.4-10.4); MONOCYTE # 1.2 10^3/ul (0.3-0.9); NEUTROPHIL # 7.3 10^3/ul (1.6-7.5); NEUTROPHILS % 76.4 % (39.0-77.0); NUCLEATED RED BLOOD CELLS% 0.2 /100WBC (0.0-0.0); PLATELET COUNT 142 10^3/UL (140-415); RED BLOOD COUNT 3.38 10^6/ul (4.70-6.10); RED CELL DISTRIBUTION WIDTH 18.2 % (11.5-14.5); WHITE BLOOD COUNT 9.6 10^3/ul (4.8-10.8)
[2016-11-16 07:55] LABS: POTASSIUM 5.3 mmol/L (3.5-5.1)
[2016-11-16 07:57] LABS: CREATININE 2.77 mg/dl (0.61-1.24)
[2016-11-16 07:59] LABS: CALCIUM 7.1 mg/dl (8.4-10.2)
[2016-11-16] MEDS: NEUTRA-PHOS 250 MG PACKET GTB SCH ×2 (08:03→21:08)
[2016-11-16] MEDS: LIDOCAINE 5% PATCH TD SCH (08:04)
[2016-11-16] MEDS: LACTOBACILLUS CHEW TAB GTB SCH (08:04)
[2016-11-16] MEDS: ASCORBIC ACID 500 MG TAB GTB SCH (08:04)
[2016-11-16] MEDS: ZINC SULFATE 220 MG CAP GTB SCH (08:04)
[2016-11-16] MEDS: DULOXETINE 30 MG CAP DR GTB SCH (08:04)
[2016-11-16] MEDS: VITAMIN B COMPLEX/VIT C CAP GTB SCH (08:04)
[2016-11-16] MEDS: COLLAGENASE 30 GM TUBE TOP SCH (08:04)
[2016-11-16] MEDS: CALCIUM/VITAMIN D (500/200) TAB GTB SCH (08:04)
[2016-11-16] MEDS: MUPIROCIN 2% 22 GM OINT TOP SCH ×2 (08:05→21:09)
[2016-11-16] MEDS: FLUTICASONE 0.05% 16 GM NAS SPRAY NASAL SCH ×2 (08:05→21:09)
[2016-11-16] MEDS: INSULIN GLARGINE [LANtus] 3 ML PEN SC SCH (08:07)
--- NOTE | 2016-11-16 08:11 | PN ---
DATE: 11/16/2016 SUBJECTIVE: The patient is stable. No acute events overnight. No fevers, chills, nausea or vomiti ng. OBJECTIVE: VITAL SIGNS: Blood pressure 108/62, respirations 20, pulse 75, temperature 98.6. HEENT: Head is normocephalic. NECK: Supple. HEART: Regular rate. LUNGS: Showed diminished breath sounds at the base. ABDOMEN: Soft, nontender to palpation. No rebound or guarding. EXTREMITIES: Negative for clubbing or cyanosis. No edema. DERMATOLOGIC: No rashes. MUSCULOSKELETAL: Have no joint effusion. NEUROLOGIC: No change in exam. MEDICATIONS: The patient's medications have been reviewed. LABORATORY DATA: Shows sodium 139, potassium 4.2, chloride 105, BUN 42, creatinine 2.53. White cou nt 7.9, hemoglobin 9.5, hematocrit 38.2, platelet count is 159. ASSESSMENT AND PLAN: 1. End-stage renal disease. Patient on dialysis Saturday, Saturday, Saturday. Plan for dialysis today for 3 hours on a 2K bath, calcium 2.5. Will ultrafiltrate as tolerated. 2. Anemia of end-stage renal disease. Continue to monitor H and H levels. Continue Epogen. 3. Mineral bone disorder. Continue to monitor calcium and phosphorus levels. Continue supplementa tion at this time. 4. Volume overload. Improving. Continue ultrafiltration dialysis. 5. Sepsis secondary to pneumonia. Continue the current antibiotic regimen. 6. Ventilatory dependent respiratory failure. Vent settings were reviewed. Continue to monitor. Follow up with pulmonary. 7. Dysphagia. Status post PEG. Continue tube feeding. 8. Coronary artery disease. Continue the current medical management. 9. Diabetes. Continue Accu-Cheks and insulin sliding scale. 10. Depression and anxiety disorder. Continue the current treatment plan. 11. Hypertension. Continue the current blood pressure regimen. 12. Congestive heart failure. Continue the current medical management. Dictated By: SARAHI RINALDI/OLESYA Conf#: [id number] DID#: [id number]
--- NOTE | 2016-11-16 09:46 | PN ---
Date/Time of Note Date/Time of Note DATE: 11/16/16 TIME: 09:44 Assessment/Plan VTE Prophylaxis VTE Prophylaxis Intervention: other (per pmd) Lines/Catheters IV Catheter Type (from Nrsg): Peripheral IV Urinary Cath still in place: No Assessment/Plan Chief Complaint/Hosp Course a] r/o S B P plan paracentesis today stable gi bleed plan cont ppi Problems: Subjective 24 Hr Interval Summary Free Text/Dictation alert no emesis no abd pain Exam/Review of Systems Vital Signs Vitals Vital Signs Date Time Temp Pulse Resp B/P Pulse Ox O2 Delivery O2 Flow Rate FiO2 11/16/16 08:27 89 11/16/16 07:57 98.6 17 108/48 94 11/16/16 07:20 30 11/16/16 06:00 Mechanical Ventilator Intake and Output 11/15/16 11/15/16 11/16/16 15:00 23:00 07:00 Intake Total 100 ml 750 ml 700 ml Balance 100 ml 750 ml 700 ml Exam alert on trach on gt feeding tolerating feeding hb stable Results Result Diagram: 11/16/1619 11/16/16 0619 Results 24 hrs Laboratory Tests Test 11/15/16 11:33 11/15/16 17:16 11/15/16 23:10 11/15/16 23:48 Bedside Glucose 167 135 137 Hemoglobin 9.8 L Hematocrit 31.9 L Test 11/16/16 05:10 11/16/16 06:19 11/16/16 07:53 Bedside Glucose 143 177 White Blood Count 9.6 # Red Blood Count 3.38 L Hemoglobin 10.4 L Hematocrit 33.2 L Mean Corpuscular Volume 98.2 Mean Corpuscular Hemoglobin 30.8 Mean Corpuscular Hemoglobin Concent 31.3 L Red Cell Distribution Width 18.2 H Platelet Count 142 Mean Platelet Volume 9.9 Neutrophils % 76.4 Lymphocytes % 8.1 L Monocytes % 12.0 H Eosinophils % 2.4 Basophils % 0.5 Nucleated Red Blood Cells % 0.2 H Neutrophils # 7.3 Lymphocytes # 0.8 Monocytes # 1.2 H Eosinophils # 0.2 Basophils # 0.1 Nucleated Red Blood Cells # 0.0 Sodium Level 136 Potassium Level 5.3 H Chloride Level 102 Carbon Dioxide Level 25 Anion Gap 14 Blood Urea Nitrogen 49 H Creatinine 2.77 H Glucose Level 152 Calcium Level 7.1 L Medications Medications Current Medications Lidocaine (Lidoderm) 1 patch DAILY TD Last administered on 11/16/16 08:04; Admin Dose 1 PATCH; Start 11/08/16 at 15:30 Acetaminophen (Tylenol Liquid) 325 mg Q4H PRN GTB MILD PAIN LEVEL 1-3 Last administered on 11/15/16 05:11; Admin Dose 325 MG; Start 11/08/16 at 15:30 Acetaminophen (Tylenol Liquid) 650 mg Q4H PRN GTB MODERATE PAIN LEVEL 4-6 Last administered on 11/09/16 05:28; Admin Dose 650 MG; Start 11/08/16 at 15:30 Ascorbic Acid (Vitamin C) 500 mg DAILY GTB Last administered on 11/16/16 08:04 ; Admin Dose 500 MG; Start 11/09/16 at 09:00 Atorvastatin Calcium (Lipitor) 40 mg QHS GTB Last administered on 11/15/16 20: 00; Admin Dose 40 MG; Start 11/08/16 at 21:00 Carvedilol (Coreg) 3.125 mg BID GTB Last administered on 11/16/16 08:04; Admin Dose 3.125 MG; Start 11/08/16 at 21:00 Duloxetine HCl (Cymbalta) 30 mg DAILY GTB Last administered on 11/16/16 08:04 ; Admin Dose 30 MG; Start 11/09/16 at 09:00 Fluticasone Propionate (Flonase 0.05% Nasal) 1 spray BID NASAL Last administered on 11/16/16 08:05; Admin Dose 1 SPRAY; Start 11/08/16 at 21:00 Insulin Glargine (Lantus) 10 unit DAILY SC Last administered on 11/16/16 08:07 ; Admin Dose 10 UNIT; Start 11/09/16 at 09:00 Lactobacillus Acidoph/Bulgaricus (Floranex) 1 tab DAILY GTB Last administered on 11/16/16 08:04; Admin Dose 1 TAB; Start 11/09/16 at 09:00 Sildenafil Citrate (Revatio) 20 mg BID GTB Last administered on 11/15/16 20:01 ; Admin Dose 20 MG; Start 11/08/16 at 21:00 Zinc Sulfate (Zinc Sulfate) 220 mg DAILY GTB Last administered on 11/16/16 08: 04; Admin Dose 220 MG; Start 11/09/16 at 09:00 Vitamin B Complex/ Vitamin C (Berocca) 1 cap DAILY GTB Last administered on 08:04; Admin Dose 1 CAP; Start 11/09/16 at 09:00 Miscellaneous Information 1 ea NOTE XX ; Start 11/08/16 at 16:00 Glucose (Glutose) 15 gm Q15M PRN PO DECREASED GLUCOSE; Start 11/08/16 at 16:00 Glucose (Glutose) 22.5 gm Q15M PRN PO DECREASED GLUCOSE; Start 11/08/16 at 16: 00 Dextrose (D50w Syringe) 25 ml Q15M PRN IV DECREASED GLUCOSE; Start 11/08/16 at 16:00 Dextrose (D50w Syringe) 50 ml Q15M PRN IV DECREASED GLUCOSE; Start 11/08/16 at 16:00 Glucagon (Glucagen) 1 mg Q15M PRN IM DECREASED GLUCOSE; Start 11/08/16 at 16:00 Glucose (Glutose) 15 gm Q15M PRN BUCCAL DECREASED GLUCOSE; Start 11/08/16 at 16 :00 Acetaminophen/ Hydrocodone Bitart ([place] (5/325)) 1 tab Q4H PRN PO SEVERE PAIN 7-10 Last administered on 11/15/16 20:00; Admin Dose 1 TAB; Start 11/08/16 at 21:00 Morphine Sulfate (morphine) 2 mg Q4H PRN IV PAIN LEVEL 7-10 Last administered on 11/15/16 14:34; Admin Dose 2 MG; Start 11/09/16 at 11:00 Collagenase (Santyl) 1 applic DAILY TOP Last administered on 11/16/16 08:04; Admin Dose 1 APPLIC; Start 11/09/16 at 16:00 Lorazepam (Ativan) 1 mg Q6H PRN IV AGITATION/ANXIETY Last administered on 00:30; Admin Dose 1 MG; Start 11/09/16 at 20:30 Pantoprazole (Protonix Iv) 40 mg BID@06,18 IV Last administered on 11/16/16 05 :03; Admin Dose 40 MG; Start 11/10/16 at 06:00 Sodium Phosphate (Neutra-Phos) 250 mg BID GTB Last administered on 11/16/16 08 :03; Admin Dose 250 MG; Start 11/10/16 at 09:00 Mupirocin (Bactroban) 1 applic BID TOP Last administered on 11/16/16 08:05; Admin Dose 1 APPLIC; Start 11/10/16 at 12:30 Insulin Aspart NOVOLOG *MILD* ALGORI... Q6 SC Last administered on 11/16/16 05 :14; Admin Dose 1 UNIT; Start 11/11/16 at 00:00 Metronidazole (Flagyl 500 Mg (Pmx)) 100 ml @ 100 mls/hr Q8 IVPB Last administered on 11/16/16 05:06; Admin Dose 100 MLS/HR; Start 11/11/16 at 14:00 Calcium/Vitamin D 1 tab 1 tab DAILY GTB Last administered on 11/16/16 08:04; Admin Dose 1 TAB; Start 11/12/16 at 11:00 Cefepime HCl/ Sodium Chloride (Maxipime/NS) 50 ml @ 100 mls/hr Q24H IVPB Last administered on 11/15/16 14:34; Admin Dose 100 MLS/HR; Start 11/12/16 at 14:00 AIME PATTERSON MD Nov 16, 2016 09:46
[2016-11-16] MEDS: SILDENAFIL 20 MG TAB GTB SCH ×2 (10:03→21:08)
--- NOTE | 2016-11-16 10:34 | CONS ---
Date/Time of Note Date/Time of Note DATE: 11/16/16 TIME: 10:33 Assessment/Plan Assessment/Plan Chief Complaint/Hosp Course - sepsis - h/o GIB - ascites, possible SBP s/p paracentesis on 11/14/2016 - near complete collapse of RLL with LLL atelectasis, pulmonary edema - h/o severe C diff colitis in 2016 - ESRD on HD - VDRF on trach - G tueb dependence - PVD - s/p L BKA - abdominal pain recommendations - ordered 1 view abdominal X-ray because of abdominal pain - I will review results of paracentesis from 11/14/2016, so far does not appear consistent with SBP - plan to d/c empiric SBP treatment tomorrow if ascetic cultures are negative: renally dosed cefepime (11/12/2016-) and metronidazole (10/14/2016-) Problems: Consultation Date/Type/Reason Admit Date/Time Nov 08, 2016 at 10:56 Initial Consult Date 11/09/16 Type of Consultation: ID Referring Provider: GRACIE KATHLEEN 24 HR Interval Summary Subjective hx not possible: pt non-verbal Detailed Summary Cardiovascular: chest pain Gastrointestinal: pain (mid-abdomen) Exam/Review of Systems Vital Signs Vitals Vital Signs Date Time Temp Pulse Resp B/P Pulse Ox O2 Delivery O2 Flow Rate FiO2 11/16/16 09:20 99 16 96 30 11/16/16 07:57 98.6 108/48 11/16/16 06:00 Mechanical Ventilator Intake and Output 11/15/16 11/15/16 11/16/16 15:00 23:00 07:00 Intake Total 100 ml 750 ml 700 ml Balance 100 ml 750 ml 700 ml Exam Constitutional: frail, non-verbal Psych: confusion Head: atraumatic, normocephalic Eyes: nl conjunctiva, nl lids ENMT: nl external ears & nose, nl nasal mucosa & septum Neck: other (trach) Respiratory: clear to auscultation Cardiovascular: nl pulses, regular rate and rhythm Gastrointestinal: tender, No distended Musculoskeletal: other (s/p L BKA) Results Result Diagram: 11/16/16 0619 11/16/16 0619 Results 24 hrs Laboratory Tests Test 11/15/16 11:33 11/15/16 17:16 11/15/16 23:10 11/15/16 23:48 Bedside Glucose 167 135 137 Hemoglobin 9.8 L Hematocrit 31.9 L Test 11/16/16 05:10 11/16/16 06:19 11/16/16 07:53 Bedside Glucose 143 177 White Blood Count 9.6 # Red Blood Count 3.38 L Hemoglobin 10.4 L Hematocrit 33.2 L Mean Corpuscular Volume 98.2 Mean Corpuscular Hemoglobin 30.8 Mean Corpuscular Hemoglobin Concent 31.3 L Red Cell Distribution Width 18.2 H Platelet Count 142 Mean Platelet Volume 9.9 Neutrophils % 76.4 Lymphocytes % 8.1 L Monocytes % 12.0 H Eosinophils % 2.4 Basophils % 0.5 Nucleated Red Blood Cells % 0.2 H Neutrophils # 7.3 Lymphocytes # 0.8 Monocytes # 1.2 H Eosinophils # 0.2 Basophils # 0.1 Nucleated Red Blood Cells # 0.0 Sodium Level 136 Potassium Level 5.3 H Chloride Level 102 Carbon Dioxide Level 25 Anion Gap 14 Blood Urea Nitrogen 49 H Creatinine 2.77 H Glucose Level 152 Calcium Level 7.1 L Medications Medications Current Medications Lidocaine (Lidoderm) 1 patch DAILY TD Last administered on 11/16/16 08:04; Admin Dose 1 PATCH; Start 11/08/16 at 15:30 Acetaminophen (Tylenol Liquid) 325 mg Q4H PRN GTB MILD PAIN LEVEL 1-3 Last administered on 11/15/16 05:11; Admin Dose 325 MG; Start 11/08/16 at 15:30 Acetaminophen (Tylenol Liquid) 650 mg Q4H PRN GTB MODERATE PAIN LEVEL 4-6 Last administered on 11/09/16 05:28; Admin Dose 650 MG; Start 11/08/16 at 15:30 Ascorbic Acid (Vitamin C) 500 mg DAILY GTB Last administered on 11/16/16 08:04 ; Admin Dose 500 MG; Start 11/09/16 at 09:00 Atorvastatin Calcium (Lipitor) 40 mg QHS GTB Last administered on 11/15/16 20: 00; Admin Dose 40 MG; Start 11/08/16 at 21:00 Carvedilol (Coreg) 3.125 mg BID GTB Last administered on 11/16/16 08:04; Admin Dose 3.125 MG; Start 11/08/16 at 21:00 Duloxetine HCl (Cymbalta) 30 mg DAILY GTB Last administered on 11/16/16 08:04 ; Admin Dose 30 MG; Start 11/09/16 at 09:00 Fluticasone Propionate (Flonase 0.05% Nasal) 1 spray BID NASAL Last administered on 11/16/16 08:05; Admin Dose 1 SPRAY; Start 11/08/16 at 21:00 Insulin Glargine (Lantus) 10 unit DAILY SC Last administered on 11/16/16 08:07 ; Admin Dose 10 UNIT; Start 11/09/16 at 09:00 Lactobacillus Acidoph/Bulgaricus (Floranex) 1 tab DAILY GTB Last administered on 11/16/16 08:04; Admin Dose 1 TAB; Start 11/09/16 at 09:00 Sildenafil Citrate (Revatio) 20 mg BID GTB Last administered on 11/16/16 10:03 ; Admin Dose 20 MG; Start 11/08/16 at 21:00 Zinc Sulfate (Zinc Sulfate) 220 mg DAILY GTB Last administered on 11/16/16 08: 04; Admin Dose 220 MG; Start 11/09/16 at 09:00 Vitamin B Complex/ Vitamin C (Berocca) 1 cap DAILY GTB Last administered on 08:04; Admin Dose 1 CAP; Start 11/09/16 at 09:00 Miscellaneous Information 1 ea NOTE XX ; Start 11/08/16 at 16:00 Glucose (Glutose) 15 gm Q15M PRN PO DECREASED GLUCOSE; Start 11/08/16 at 16:00 Glucose (Glutose) 22.5 gm Q15M PRN PO DECREASED GLUCOSE; Start 11/08/16 at 16: 00 Dextrose (D50w Syringe) 25 ml Q15M PRN IV DECREASED GLUCOSE; Start 11/08/16 at 16:00 Dextrose (D50w Syringe) 50 ml Q15M PRN IV DECREASED GLUCOSE; Start 11/08/16 at 16:00 Glucagon (Glucagen) 1 mg Q15M PRN IM DECREASED GLUCOSE; Start 11/08/16 at 16:00 Glucose (Glutose) 15 gm Q15M PRN BUCCAL DECREASED GLUCOSE; Start 11/08/16 at 16 :00 Acetaminophen/ Hydrocodone Bitart ([place] (5/325)) 1 tab Q4H PRN PO SEVERE PAIN 7-10 Last administered on 11/15/16 20:00; Admin Dose 1 TAB; Start 11/08/16 at 21:00 Morphine Sulfate (morphine) 2 mg Q4H PRN IV PAIN LEVEL 7-10 Last administered on 11/15/16 14:34; Admin Dose 2 MG; Start 11/09/16 at 11:00 Collagenase (Santyl) 1 applic DAILY TOP Last administered on 11/16/16 08:04; Admin Dose 1 APPLIC; Start 11/09/16 at 16:00 Lorazepam (Ativan) 1 mg Q6H PRN IV AGITATION/ANXIETY Last administered on 00:30; Admin Dose 1 MG; Start 11/09/16 at 20:30 Pantoprazole (Protonix Iv) 40 mg BID@06,18 IV Last administered on 11/16/16 05 :03; Admin Dose 40 MG; Start 11/10/16 at 06:00 Sodium Phosphate (Neutra-Phos) 250 mg BID GTB Last administered on 11/16/16 08 :03; Admin Dose 250 MG; Start 11/10/16 at 09:00 Mupirocin (Bactroban) 1 applic BID TOP Last administered on 11/16/16 08:05; Admin Dose 1 APPLIC; Start 11/10/16 at 12:30 Insulin Aspart NOVOLOG *MILD* ALGORI... Q6 SC Last administered on 11/16/16 05 :14; Admin Dose 1 UNIT; Start 11/11/16 at 00:00 Metronidazole (Flagyl 500 Mg (Pmx)) 100 ml @ 100 mls/hr Q8 IVPB Last administered on 11/16/16 05:06; Admin Dose 100 MLS/HR; Start 11/11/16 at 14:00 Calcium/Vitamin D 1 tab 1 tab DAILY GTB Last administered on 11/16/16 08:04; Admin Dose 1 TAB; Start 11/12/16 at 11:00 Cefepime HCl/ Sodium Chloride (Maxipime/NS) 50 ml @ 100 mls/hr Q24H IVPB Last administered on 11/15/16 14:34; Admin Dose 100 MLS/HR; Start 11/12/16 at 14:00 SADIA LONDON M.D. Nov 16, 2016 10:34
--- NOTE | 2016-11-16 13:26 | CONS ---
Date/Time of Note Date/Time of Note DATE: 11/16/16 TIME: 13:25 Assessment/Plan Assessment/Plan Additional Assessment/Plan Paroxysmal atrial tachycardia Possible GI bleed Respiratory failure status post tracheostomy Diastolic congestive heart failure End-stage renal disease on hemodialysis CAD with history of PCI Diabetes Peripheral arterial disease with history of amputation Pulmonary hypertension Hypotension, improved -Blood pressure trend improved since discontinuing Procardia. Fluid management via hemodialysis as per our nephrology colleagues. No new cardiac orders at the current time. Consultation Date/Type/Reason Admit Date/Time Nov 08, 2016 at 10:56 Initial Consult Date 11/09/16 Type of Consultation: cv Referring Provider: GRACIE KATHLEEN 24 HR Interval Summary Free Text/Dictation Patient seen and examined, denies chest pain or shortness of breath Exam/Review of Systems Vital Signs Vitals Vital Signs Date Time Temp Pulse Resp B/P Pulse Ox O2 Delivery O2 Flow Rate FiO2 11/16/16 12:16 93 11/16/16 11:15 18 98 30 11/16/16 10:55 98.3 100/58 11/16/16 06:00 Mechanical Ventilator Intake and Output 11/15/16 11/15/16 11/16/16 15:00 23:00 07:00 Intake Total 100 ml 750 ml 700 ml Balance 100 ml 750 ml 700 ml Exam Follows commands, no apparent distress Constitutional: alert Head: normocephalic Neck: other (Tracheostomy) Respiratory: other (Coarse breath sounds bilaterally, no wheezing) Cardiovascular: other (S1-S2 heard), regular rate and rhythm Gastrointestinal: bowel sounds, non-tender, other (No guarding), soft Extremities: edema, other (No cyanosis, amputation) Results Result Diagram: 11/16/1619 11/16/1619 Results 24 hrs Laboratory Tests Test 11/15/16 17:16 11/15/16 23:10 11/15/16 23:48 11/16/16 05:10 Bedside Glucose 135 137 143 Hemoglobin 9.8 L Hematocrit 31.9 L Test 11/16/16 06:19 11/16/16 07:53 11/16/16 11:55 White Blood Count 9.6 # Red Blood Count 3.38 L Hemoglobin 10.4 L Hematocrit 33.2 L Mean Corpuscular Volume 98.2 Mean Corpuscular Hemoglobin 30.8 Mean Corpuscular Hemoglobin Concent 31.3 L Red Cell Distribution Width 18.2 H Platelet Count 142 Mean Platelet Volume 9.9 Neutrophils % 76.4 Lymphocytes % 8.1 L Monocytes % 12.0 H Eosinophils % 2.4 Basophils % 0.5 Nucleated Red Blood Cells % 0.2 H Neutrophils # 7.3 Lymphocytes # 0.8 Monocytes # 1.2 H Eosinophils # 0.2 Basophils # 0.1 Nucleated Red Blood Cells # 0.0 Sodium Level 136 Potassium Level 5.3 H Chloride Level 102 Carbon Dioxide Level 25 Anion Gap 14 Blood Urea Nitrogen 49 H Creatinine 2.77 H Glucose Level 152 Calcium Level 7.1 L Bedside Glucose 177 200 Medications Medications Current Medications Lidocaine (Lidoderm) 1 patch DAILY TD Last administered on 11/16/16 08:04; Admin Dose 1 PATCH; Start 11/08/16 at 15:30 Acetaminophen (Tylenol Liquid) 325 mg Q4H PRN GTB MILD PAIN LEVEL 1-3 Last administered on 11/15/16 05:11; Admin Dose 325 MG; Start 11/08/16 at 15:30 Acetaminophen (Tylenol Liquid) 650 mg Q4H PRN GTB MODERATE PAIN LEVEL 4-6 Last administered on 11/09/16 05:28; Admin Dose 650 MG; Start 11/08/16 at 15:30 Ascorbic Acid (Vitamin C) 500 mg DAILY GTB Last administered on 11/16/16 08:04 ; Admin Dose 500 MG; Start 11/09/16 at 09:00 Atorvastatin Calcium (Lipitor) 40 mg QHS GTB Last administered on 11/15/16 20: 00; Admin Dose 40 MG; Start 11/08/16 at 21:00 Carvedilol (Coreg) 3.125 mg BID GTB Last administered on 11/16/16 08:04; Admin Dose 3.125 MG; Start 11/08/16 at 21:00 Duloxetine HCl (Cymbalta) 30 mg DAILY GTB Last administered on 11/16/16 08:04 ; Admin Dose 30 MG; Start 11/09/16 at 09:00 Fluticasone Propionate (Flonase 0.05% Nasal) 1 spray BID NASAL Last administered on 11/16/16 08:05; Admin Dose 1 SPRAY; Start 11/08/16 at 21:00 Insulin Glargine (Lantus) 10 unit DAILY SC Last administered on 11/16/16 08:07 ; Admin Dose 10 UNIT; Start 11/09/16 at 09:00 Lactobacillus Acidoph/Bulgaricus (Floranex) 1 tab DAILY GTB Last administered on 11/16/16 08:04; Admin Dose 1 TAB; Start 11/09/16 at 09:00 Sildenafil Citrate (Revatio) 20 mg BID GTB Last administered on 11/16/16 10:03 ; Admin Dose 20 MG; Start 11/08/16 at 21:00 Zinc Sulfate (Zinc Sulfate) 220 mg DAILY GTB Last administered on 11/16/16 08: 04; Admin Dose 220 MG; Start 11/09/16 at 09:00 Vitamin B Complex/ Vitamin C (Berocca) 1 cap DAILY GTB Last administered on 08:04; Admin Dose 1 CAP; Start 11/09/16 at 09:00 Miscellaneous Information 1 ea NOTE XX ; Start 11/08/16 at 16:00 Glucose (Glutose) 15 gm Q15M PRN PO DECREASED GLUCOSE; Start 11/08/16 at 16:00 Glucose (Glutose) 22.5 gm Q15M PRN PO DECREASED GLUCOSE; Start 11/08/16 at 16: 00 Dextrose (D50w Syringe) 25 ml Q15M PRN IV DECREASED GLUCOSE; Start 11/08/16 at 16:00 Dextrose (D50w Syringe) 50 ml Q15M PRN IV DECREASED GLUCOSE; Start 11/08/16 at 16:00 Glucagon (Glucagen) 1 mg Q15M PRN IM DECREASED GLUCOSE; Start 11/08/16 at 16:00 Glucose (Glutose) 15 gm Q15M PRN BUCCAL DECREASED GLUCOSE; Start 11/08/16 at 16 :00 Acetaminophen/ Hydrocodone Bitart ([place] (5/325)) 1 tab Q4H PRN PO SEVERE PAIN 7-10 Last administered on 11/15/16 20:00; Admin Dose 1 TAB; Start 11/08/16 at 21:00 Morphine Sulfate (morphine) 2 mg Q4H PRN IV PAIN LEVEL 7-10 Last administered on 11/15/16 14:34; Admin Dose 2 MG; Start 11/09/16 at 11:00 Collagenase (Santyl) 1 applic DAILY TOP Last administered on 11/16/16 08:04; Admin Dose 1 APPLIC; Start 11/09/16 at 16:00 Lorazepam (Ativan) 1 mg Q6H PRN IV AGITATION/ANXIETY Last administered on 00:30; Admin Dose 1 MG; Start 11/09/16 at 20:30 Pantoprazole (Protonix Iv) 40 mg BID@06,18 IV Last administered on 11/16/16 05 :03; Admin Dose 40 MG; Start 11/10/16 at 06:00 Sodium Phosphate (Neutra-Phos) 250 mg BID GTB Last administered on 11/16/16 08 :03; Admin Dose 250 MG; Start 11/10/16 at 09:00 Mupirocin (Bactroban) 1 applic BID TOP Last administered on 11/16/16 08:05; Admin Dose 1 APPLIC; Start 11/10/16 at 12:30 Insulin Aspart NOVOLOG *MILD* ALGORI... Q6 SC Last administered on 11/16/16 12 :55; Admin Dose 2 UNIT; Start 11/11/16 at 00:00 Metronidazole (Flagyl 500 Mg (Pmx)) 100 ml @ 100 mls/hr Q8 IVPB Last administered on 11/16/16 05:06; Admin Dose 100 MLS/HR; Start 11/11/16 at 14:00 Calcium/Vitamin D 1 tab 1 tab DAILY GTB Last administered on 11/16/16 08:04; Admin Dose 1 TAB; Start 11/12/16 at 11:00 Cefepime HCl/ Sodium Chloride (Maxipime/NS) 50 ml @ 100 mls/hr Q24H IVPB Last administered on 11/15/16 14:34; Admin Dose 100 MLS/HR; Start 11/12/16 at 14:00 Solo Leon DO Nov 16, 2016 13:26
--- NOTE | 2016-11-16 13:54 | CONS ---
Date/Time of Note Date/Time of Note DATE: 11/16/16 TIME: 13:53 Consult Date/Type/Reason Admit Date/Time Nov 08, 2016 at 10:56 Initial Consult Date 11/09/16 Type of Consultation: Pulmonary Ordering Provider: GRACIE KATHLEEN Subjective Comfortable. Objective Vital Signs Date Time Temp Pulse Resp B/P Pulse Ox O2 Delivery O2 Flow Rate FiO2 11/16/16 12:16 93 11/16/16 11:15 18 98 30 11/16/16 10:55 98.3 100/58 11/16/16 06:00 Mechanical Ventilator Intake and Output 11/15/16 11/15/16 11/16/16 15:00 23:00 07:00 Intake Total 100 ml 750 ml 700 ml Balance 100 ml 750 ml 700 ml Exam PHYSICAL EXAMINATION GENERAL: Elderly gentleman, on mechanical ventilation VITAL SIGNS: see below. HEENT: Pupils equal, round, and reactive to light. Tracheostomy site clean and intact. CARDIAC: S1, S2, CHEST: Diminished air entry bilaterally. ABDOMEN: Mildly distended. No bowel sounds. EXTREMITIES: No cyanosis, clubbing edema +1 NEUROLOGIC: No focal deficits. Results/Medications Result Diagram: 11/16/16 0619 11/16/16 0619 Results 24 hrs Laboratory Tests Test 11/15/16 17:16 11/15/16 23:10 11/15/16 23:48 11/16/16 05:10 Bedside Glucose 135 137 143 Hemoglobin 9.8 L Hematocrit 31.9 L Test 11/16/16 06:19 11/16/16 07:53 11/16/16 11:55 White Blood Count 9.6 # Red Blood Count 3.38 L Hemoglobin 10.4 L Hematocrit 33.2 L Mean Corpuscular Volume 98.2 Mean Corpuscular Hemoglobin 30.8 Mean Corpuscular Hemoglobin Concent 31.3 L Red Cell Distribution Width 18.2 H Platelet Count 142 Mean Platelet Volume 9.9 Neutrophils % 76.4 Lymphocytes % 8.1 L Monocytes % 12.0 H Eosinophils % 2.4 Basophils % 0.5 Nucleated Red Blood Cells % 0.2 H Neutrophils # 7.3 Lymphocytes # 0.8 Monocytes # 1.2 H Eosinophils # 0.2 Basophils # 0.1 Nucleated Red Blood Cells # 0.0 Sodium Level 136 Potassium Level 5.3 H Chloride Level 102 Carbon Dioxide Level 25 Anion Gap 14 Blood Urea Nitrogen 49 H Creatinine 2.77 H Glucose Level 152 Calcium Level 7.1 L Bedside Glucose 177 200 Medications Current Medications Lidocaine (Lidoderm) 1 patch DAILY TD Last administered on 11/16/16 08:04; Admin Dose 1 PATCH; Start 11/08/16 at 15:30 Acetaminophen (Tylenol Liquid) 325 mg Q4H PRN GTB MILD PAIN LEVEL 1-3 Last administered on 11/15/16 05:11; Admin Dose 325 MG; Start 11/08/16 at 15:30 Acetaminophen (Tylenol Liquid) 650 mg Q4H PRN GTB MODERATE PAIN LEVEL 4-6 Last administered on 11/09/16 05:28; Admin Dose 650 MG; Start 11/08/16 at 15:30 Ascorbic Acid (Vitamin C) 500 mg DAILY GTB Last administered on 11/16/16 08:04 ; Admin Dose 500 MG; Start 11/09/16 at 09:00 Atorvastatin Calcium (Lipitor) 40 mg QHS GTB Last administered on 11/15/16 20: 00; Admin Dose 40 MG; Start 11/08/16 at 21:00 Carvedilol (Coreg) 3.125 mg BID GTB Last administered on 11/16/16 08:04; Admin Dose 3.125 MG; Start 11/08/16 at 21:00 Duloxetine HCl (Cymbalta) 30 mg DAILY GTB Last administered on 11/16/16 08:04 ; Admin Dose 30 MG; Start 11/09/16 at 09:00 Fluticasone Propionate (Flonase 0.05% Nasal) 1 spray BID NASAL Last administered on 11/16/16 08:05; Admin Dose 1 SPRAY; Start 11/08/16 at 21:00 Insulin Glargine (Lantus) 10 unit DAILY SC Last administered on 11/16/16 08:07 ; Admin Dose 10 UNIT; Start 11/09/16 at 09:00 Lactobacillus Acidoph/Bulgaricus (Floranex) 1 tab DAILY GTB Last administered on 11/16/16 08:04; Admin Dose 1 TAB; Start 11/09/16 at 09:00 Sildenafil Citrate (Revatio) 20 mg BID GTB Last administered on 11/16/16 10:03 ; Admin Dose 20 MG; Start 11/08/16 at 21:00 Zinc Sulfate (Zinc Sulfate) 220 mg DAILY GTB Last administered on 11/16/16 08: 04; Admin Dose 220 MG; Start 11/09/16 at 09:00 Vitamin B Complex/ Vitamin C (Berocca) 1 cap DAILY GTB Last administered on 08:04; Admin Dose 1 CAP; Start 11/09/16 at 09:00 Miscellaneous Information 1 ea NOTE XX ; Start 11/08/16 at 16:00 Glucose (Glutose) 15 gm Q15M PRN PO DECREASED GLUCOSE; Start 11/08/16 at 16:00 Glucose (Glutose) 22.5 gm Q15M PRN PO DECREASED GLUCOSE; Start 11/08/16 at 16: 00 Dextrose (D50w Syringe) 25 ml Q15M PRN IV DECREASED GLUCOSE; Start 11/08/16 at 16:00 Dextrose (D50w Syringe) 50 ml Q15M PRN IV DECREASED GLUCOSE; Start 11/08/16 at 16:00 Glucagon (Glucagen) 1 mg Q15M PRN IM DECREASED GLUCOSE; Start 11/08/16 at 16:00 Glucose (Glutose) 15 gm Q15M PRN BUCCAL DECREASED GLUCOSE; Start 11/08/16 at 16 :00 Acetaminophen/ Hydrocodone Bitart ([place] (5/325)) 1 tab Q4H PRN PO SEVERE PAIN 7-10 Last administered on 11/15/16 20:00; Admin Dose 1 TAB; Start 11/08/16 at 21:00 Morphine Sulfate (morphine) 2 mg Q4H PRN IV PAIN LEVEL 7-10 Last administered on 11/15/16 14:34; Admin Dose 2 MG; Start 11/09/16 at 11:00 Collagenase (Santyl) 1 applic DAILY TOP Last administered on 11/16/16 08:04; Admin Dose 1 APPLIC; Start 11/09/16 at 16:00 Lorazepam (Ativan) 1 mg Q6H PRN IV AGITATION/ANXIETY Last administered on 00:30; Admin Dose 1 MG; Start 11/09/16 at 20:30 Pantoprazole (Protonix Iv) 40 mg BID@06,18 IV Last administered on 11/16/16 05 :03; Admin Dose 40 MG; Start 11/10/16 at 06:00 Sodium Phosphate (Neutra-Phos) 250 mg BID GTB Last administered on 11/16/16 08 :03; Admin Dose 250 MG; Start 11/10/16 at 09:00 Mupirocin (Bactroban) 1 applic BID TOP Last administered on 11/16/16 08:05; Admin Dose 1 APPLIC; Start 11/10/16 at 12:30 Insulin Aspart NOVOLOG *MILD* ALGORI... Q6 SC Last administered on 11/16/16 12 :55; Admin Dose 2 UNIT; Start 11/11/16 at 00:00 Metronidazole (Flagyl 500 Mg (Pmx)) 100 ml @ 100 mls/hr Q8 IVPB Last administered on 11/16/16 05:06; Admin Dose 100 MLS/HR; Start 11/11/16 at 14:00 Calcium/Vitamin D 1 tab 1 tab DAILY GTB Last administered on 11/16/16 08:04; Admin Dose 1 TAB; Start 11/12/16 at 11:00 Cefepime HCl/ Sodium Chloride (Maxipime/NS) 50 ml @ 100 mls/hr Q24H IVPB Last administered on 11/15/16 14:34; Admin Dose 100 MLS/HR; Start 11/12/16 at 14:00 Assessment/Plan Chief Complaint/Hosp Course Assessment 1. Vent dependent respiratory failure 2. End-stage renal failure on hemodialysis 3. Recent urinary tract infection with sepsis 4. Anemia of chronic disease and possibly secondary to renal dysfunction 5. Dysphagia with G-tube Plan 1. Continue mechanical ventilation 2. Tube feeding as tolerated 3. Hemodialysis per nephrology 4. Antibiotics per infectious diseases 5. DVT and GI prophylaxis Disposition Consider transfer back to half-way facility Problems: VALERIE CAMARENA MD, [facility] Nov 16, 2016 13:54
[2016-11-16] MEDS: HYDROCODONE/APAP (5/325) TAB PO PRN (14:59)
[2016-11-16] MEDS: EPOETIN 10000 UNITS/1 ML INJ (ESRD) SC SCH (16:09)
[2016-11-16] MEDS: CEFEPIME HCL 0.5 GM in SOD CHLORIDE 0.9% 50 ML IVPB SCH (16:10)
--- NOTE | 2016-11-16 16:56 | RADRPT ---
PROCEDURE: XR Abdomen. CLINICAL INDICATION: Abdomen pain. TECHNIQUE: AP supine abdomen x-ray. COMPARISON: None. FINDINGS: There is a gastrostomy tube overlying the stomach. The bowel gas pattern is normal with no evidence of obstruction. Contrast is present in the rectosi gmoid. Surgical clips are present in the right upper quadrant of the abdomen. There are no abnormal calcifications overlying the urinary tracts. There are degenerative changes of the spine. IMPRESSION: 1. Gastrostomy tube overlying the stomach. 2. Contrast in the rectosigmoid. 3. Prior right upper quadrant surgery. 4. Degenerative changes of the spine. RPTAT: QQ .Luca Hopkins MD, MD Date Time Electronically viewed and signed by .Luca Hopkins MD, MD on 11/16/2016 16:56 .R/
--- NOTE | 2016-11-16 17:55 | PN ---
Date/Time of Note Date/Time of Note DATE: 11/16/16 TIME: 17:53 Assessment/Plan VTE Prophylaxis VTE Prophylaxis Intervention: SCD's Lines/Catheters [facility] Type [facility]from [facility] Sal[facility] Lock [place] line still needed: Yes Urinary Cath still in place: No Assessment/Plan Chief Complaint/Hosp Course Assessment/Plan - Esophagitis per EGD. Continue Protonix Dr. Hernandez is following in gastroenterology consultation. - Anemia of chronic disease, on Epogen, continue to monitor hemoglobin and hematocrit, transfuse as needed. - Ascites, possible SBP. Status post paracentesis 11/14, follow-up on ascitic fluid culture, continue antibiotics per ID. - Systemic inflammatory response syndrome with leukocytosis, patient is followed by Dr. Benjamin deluna in infection disease consultation. - End-stage renal disease, hemodialysis dependent. Continue hemodialysis per nephrology. - Chronic respiratory failure with tracheostomy. Dr. Sahu is following in pulmonology consultation. - Coronary artery disease with history of PCI. - Diastolic congestive heart failure - Pulmonary hypertension - Peripheral vascular disease, status post left BKA. - Diabetes mellitus type 2, continue NovoLog per sliding scale. - Sacral decub present on admission. Continue current wound care. Problems: Subjective 24 Hr Interval Summary Free Text/Dictation Patient remains afebrile, denies chest pain denies shortness of breath, complains of left lower quadrant abdominal pain. Exam/Review of Systems Vital Signs Vitals Vital Signs Date Time Temp Pulse Resp B/P Pulse Ox O2 Delivery O2 Flow Rate FiO2 11/16/16 16:26 100 11/16/16 15:15 23 100 30 11/16/16 10:55 98.3 100/58 11/16/16 06:00 Mechanical Ventilator Intake and Output 11/15/16 11/15/16 11/16/16 15:00 23:00 07:00 Intake Total 100 ml 750 ml 700 ml Balance 100 ml 750 ml 700 ml Exam GENERAL: Well-developed, well-nourished male, currently on vent support. HEENT: Head is atraumatic, normocephalic. PERRLA. NECK: Supple. Tracheostomy at the base of the neck. LUNGS: Slightly diminished at the bases. Clear in the upper lobes. HEART: Normal S1, S2. No murmurs, gallops, clicks, rubs noted. ABDOMEN: Protuberant, soft, nondistended, nontender. G-tube in place. EXTREMITIES: The patient is status post left BKA. Right lower extremity with mild edema. The patient has a left upper extremity arteriovenous fistula with palpable thrill and audible bruit. SKIN: No rash, petechiae noted. Sacral decubitus ulcer. NEUROLOGIC: The patient is awake, alert. Results Result Diagram: 11/16/16 0619 11/16/16 0619 Results 24 hrs Laboratory Tests Test 11/15/16 23:10 11/15/16 23:48 11/16/16 05:10 11/16/16 06:19 Hemoglobin 9.8 L 10.4 L Hematocrit 31.9 L 33.2 L Bedside Glucose 137 143 White Blood Count 9.6 # Red Blood Count 3.38 L Mean Corpuscular Volume 98.2 Mean Corpuscular Hemoglobin 30.8 Mean Corpuscular Hemoglobin Concent 31.3 L Red Cell Distribution Width 18.2 H Platelet Count 142 Mean Platelet Volume 9.9 Neutrophils % 76.4 Lymphocytes % 8.1 L Monocytes % 12.0 H Eosinophils % 2.4 Basophils % 0.5 Nucleated Red Blood Cells % 0.2 H Neutrophils # 7.3 Lymphocytes # 0.8 Monocytes # 1.2 H Eosinophils # 0.2 Basophils # 0.1 Nucleated Red Blood Cells # 0.0 Sodium Level 136 Potassium Level 5.3 H Chloride Level 102 Carbon Dioxide Level 25 Anion Gap 14 Blood Urea Nitrogen 49 H Creatinine 2.77 H Glucose Level 152 Calcium Level 7.1 L Test 11/16/16 07:53 11/16/16 11:55 Bedside Glucose 177 200 Medications Medications Current Medications Lidocaine (Lidoderm) 1 patch DAILY TD Last administered on 11/16/16 08:04; Admin Dose 1 PATCH; Start 11/08/16 at 15:30 Acetaminophen (Tylenol Liquid) 325 mg Q4H PRN GTB MILD PAIN LEVEL 1-3 Last administered on 11/15/16 05:11; Admin Dose 325 MG; Start 11/08/16 at 15:30 Acetaminophen (Tylenol Liquid) 650 mg Q4H PRN GTB MODERATE PAIN LEVEL 4-6 Last administered on 11/09/16 05:28; Admin Dose 650 MG; Start 11/08/16 at 15:30 Ascorbic Acid (Vitamin C) 500 mg DAILY GTB Last administered on 11/16/16 08:04 ; Admin Dose 500 MG; Start 11/09/16 at 09:00 Atorvastatin Calcium (Lipitor) 40 mg QHS GTB Last administered on 11/15/16 20: 00; Admin Dose 40 MG; Start 11/08/16 at 21:00 Carvedilol (Coreg) 3.125 mg BID GTB Last administered on 11/16/16 08:04; Admin Dose 3.125 MG; Start 11/08/16 at 21:00 Duloxetine HCl (Cymbalta) 30 mg DAILY GTB Last administered on 11/16/16 08:04 ; Admin Dose 30 MG; Start 11/09/16 at 09:00 Fluticasone Propionate (Flonase 0.05% Nasal) 1 spray BID NASAL Last administered on 11/16/16 08:05; Admin Dose 1 SPRAY; Start 11/08/16 at 21:00 Insulin Glargine (Lantus) 10 unit DAILY SC Last administered on 11/16/16 08:07 ; Admin Dose 10 UNIT; Start 11/09/16 at 09:00 Lactobacillus Acidoph/Bulgaricus (Floranex) 1 tab DAILY GTB Last administered on 11/16/16 08:04; Admin Dose 1 TAB; Start 11/09/16 at 09:00 Sildenafil Citrate (Revatio) 20 mg BID GTB Last administered on 11/16/16 10:03 ; Admin Dose 20 MG; Start 11/08/16 at 21:00 Zinc Sulfate (Zinc Sulfate) 220 mg DAILY GTB Last administered on 11/16/16 08: 04; Admin Dose 220 MG; Start 11/09/16 at 09:00 Vitamin B Complex/ Vitamin C (Berocca) 1 cap DAILY GTB Last administered on 08:04; Admin Dose 1 CAP; Start 11/09/16 at 09:00 Miscellaneous Information 1 ea NOTE XX ; Start 11/08/16 at 16:00 Glucose (Glutose) 15 gm Q15M PRN PO DECREASED GLUCOSE; Start 11/08/16 at 16:00 Glucose (Glutose) 22.5 gm Q15M PRN PO DECREASED GLUCOSE; Start 11/08/16 at 16: 00 Dextrose (D50w Syringe) 25 ml Q15M PRN IV DECREASED GLUCOSE; Start 11/08/16 at 16:00 Dextrose (D50w Syringe) 50 ml Q15M PRN IV DECREASED GLUCOSE; Start 11/08/16 at 16:00 Glucagon (Glucagen) 1 mg Q15M PRN IM DECREASED GLUCOSE; Start 11/08/16 at 16:00 Glucose (Glutose) 15 gm Q15M PRN BUCCAL DECREASED GLUCOSE; Start 11/08/16 at 16 :00 Acetaminophen/ Hydrocodone Bitart ([place] (5/325)) 1 tab Q4H PRN PO SEVERE PAIN 7-10 Last administered on 11/16/16 14:59; Admin Dose 1 TAB; Start 11/08/16 at 21:00 Morphine Sulfate (morphine) 2 mg Q4H PRN IV PAIN LEVEL 7-10 Last administered on 11/15/16 14:34; Admin Dose 2 MG; Start 11/09/16 at 11:00 Collagenase (Santyl) 1 applic DAILY TOP Last administered on 11/16/16 08:04; Admin Dose 1 APPLIC; Start 11/09/16 at 16:00 Lorazepam (Ativan) 1 mg Q6H PRN IV AGITATION/ANXIETY Last administered on 00:30; Admin Dose 1 MG; Start 11/09/16 at 20:30 Pantoprazole (Protonix Iv) 40 mg BID@06,18 IV Last administered on 11/16/16 05 :03; Admin Dose 40 MG; Start 11/10/16 at 06:00 Sodium Phosphate (Neutra-Phos) 250 mg BID GTB Last administered on 11/16/16 08 :03; Admin Dose 250 MG; Start 11/10/16 at 09:00 Mupirocin (Bactroban) 1 applic BID TOP Last administered on 11/16/16 08:05; Admin Dose 1 APPLIC; Start 11/10/16 at 12:30 Insulin Aspart NOVOLOG *MILD* ALGORI... Q6 SC Last administered on 11/16/16 12 :55; Admin Dose 2 UNIT; Start 11/11/16 at 00:00 Metronidazole (Flagyl 500 Mg (Pmx)) 100 ml @ 100 mls/hr Q8 IVPB Last administered on 11/16/16 16:09; Admin Dose 100 MLS/HR; Start 11/11/16 at 14:00 Calcium/Vitamin D 1 tab 1 tab DAILY GTB Last administered on 11/16/16 08:04; Admin Dose 1 TAB; Start 11/12/16 at 11:00 Cefepime HCl/ Sodium Chloride (Maxipime/NS) 50 ml @ 100 mls/hr Q24H IVPB Last administered on 11/16/16 16:10; Admin Dose 100 MLS/HR; Start 11/12/16 at 14:00 MARY DOMINGUEZ Nov 16, 2016 17:55
[2016-11-16 20:37] LABS: HEMATOCRIT 35.5 % (42.0-52.0); HEMOGLOBIN 11.1 g/dl (14.0-18.0)
[2016-11-16] MEDS: ATORVASTATIN 40 MG TAB GTB SCH (21:08)
[2016-11-17] VITALS (31 sets, daily range): BP systolic 83–119; BP diastolic 48–65; PULSE 79–112; RESP 14–25
[2016-11-17] MEDS: ACETAMINOPHEN 650MG/20.3ML CUP GTB PRN (02:37)
[2016-11-17] MEDS: LORAZEPAM 2 MG INJ IV PRN (02:37)
[2016-11-17] MEDS: PANTOPRAZOLE 40 MG INJ IV SCH ×2 (06:29→19:13)
[2016-11-17] MEDS: metroNIDAZOLE 500 MG/NS (PMX) 100 ML IVPB SCH ×2 (06:29→15:44)
[2016-11-17 06:31] LABS: ADD SCAN DIFF NO
[2016-11-17 06:41] LABS: BASOPHIL # 0.1 10^3/ul (0.0-0.1); BASOPHILS % 0.6 % (0.0-2.0); EOSINOPHILS # 0.1 10^3/ul (0.0-0.5); EOSINOPHILS % 1.4 % (0.0-7.0); HEMATOCRIT 31.7 % (42.0-52.0); HEMOGLOBIN 9.7 g/dl (14.0-18.0); LYMPHOCYTES # 0.9 10^3/ul (0.8-2.9); LYMPHOCYTES % 10.3 % (15.0-51.0); MEAN CORPUSCULAR HGB CONC 30.6 g/dl (32.0-37.0); MEAN CORPUSCULAR VOLUME 101.3 fl (82.0-101.0); MEAN PLATELET VOLUME 8.9 fl (7.4-10.4); MONOCYTE # 0.9 10^3/ul (0.3-0.9); MONOCYTES % 10.4 % (0.0-11.0); NEUTROPHIL # 6.8 10^3/ul (1.6-7.5); NEUTROPHILS % 76.6 % (39.0-77.0); PLATELET COUNT 172 10^3/UL (140-415); RED BLOOD COUNT 3.13 10^6/ul (4.70-6.10); RED CELL DISTRIBUTION WIDTH 18.4 % (11.5-14.5); WHITE BLOOD COUNT 8.8 10^3/ul (4.8-10.8)
[2016-11-17] MEDS: INSULIN ASPART [NOVOLOG] 3 ML PEN SC SCH ×3 (06:43→18:00)
[2016-11-17 07:03] LABS: CREATININE 2.24 mg/dl (0.61-1.24)
[2016-11-17 07:04] LABS: CALCIUM 7.7 mg/dl (8.4-10.2)
--- NOTE | 2016-11-17 08:34 | PN ---
DATE: 11/17/2016 SUBJECTIVE: The patient had hemodialysis yesterday, tolerated it well without any complications. N o other acute Minimal symptoms of hematochezia. OBJECTIVE: VITAL SIGNS: Blood pressure is 96/56, respirations 16, pulse 64, temperature 98.9. HEENT: Head is normocephalic. NECK: Supple. HEART: Regular rate. LUNGS: Show diminished breath sounds at base. ABDOMEN: Soft, nontender to palpation. No rebound or guarding. EXTREMITIES: Negative for clubbing, cyanosis. No edema. DERMATOLOGIC: No rashes. MUSCULOSKELETAL: No joint effusions. NEUROLOGIC: No change in exam. MEDICATIONS: The patient's medications have been reviewed. LABORATORY DATA: Sodium 141, potassium 4.0, chloride 106, BUN 36, creatinine 2.24. White count 8.8 , hemoglobin 9.7, hematocrit 31.7, platelet count is 8.9. ASSESSMENT AND PLAN: 1. End-stage renal disease: The patient is on hemodialysis Saturday, Saturday, Saturday. Had hemodia lysis yesterday, tolerated well. Plan for next dialysis on Saturday. 2. Anemia of end-stage renal disease: Continue to monitor H and H levels. Continue Epogen. 3. Mineral bone disorder: Monitor sodium, calcium and phosphorus levels. Continue phosphorus supp lementation. 4. Volume overload: Improving. Continue ultrafiltration on dialysis. 5. Sepsis secondary to pneumonia: Complete antibiotic course. 6. Ventilatory-dependent respiratory failure: Vent settings reviewed. Continue to monitor. Follo w up with Pulmonary. 7. Dysphagia, status post percutaneous endoscopic gastrostomy tube: Continue tube feeds. 8. Coronary artery disease.: Continue current medical management. 9. Diabetes.: Continue Accu-Cheks and sliding scale. 10. Depression and anxiety disorder: Continue current treatment plan. 11. Hypertension: Continue current blood pressure regimen. 12. Congestive heart failure: Continue current medical management and ultrafiltration on dialysis. Follow up with cardiology. Dictated By: SARAHI RINALDI/OLESYA Conf#: [id number] DID#: [id number]
[2016-11-17] MEDS: LIDOCAINE 5% PATCH TD SCH (11:06)
[2016-11-17] MEDS: ZINC SULFATE 220 MG CAP GTB SCH (11:07)
[2016-11-17] MEDS: DULOXETINE 30 MG CAP DR GTB SCH (11:07)
[2016-11-17] MEDS: LACTOBACILLUS CHEW TAB GTB SCH (11:07)
[2016-11-17] MEDS: VITAMIN B COMPLEX/VIT C CAP GTB SCH (11:07)
[2016-11-17] MEDS: NEUTRA-PHOS 250 MG PACKET GTB SCH ×2 (11:07→21:37)
[2016-11-17] MEDS: CALCIUM/VITAMIN D (500/200) TAB GTB SCH (11:08)
[2016-11-17] MEDS: ASCORBIC ACID 500 MG TAB GTB SCH (11:08)
[2016-11-17] MEDS: FLUTICASONE 0.05% 16 GM NAS SPRAY NASAL SCH ×2 (11:12→21:38)
[2016-11-17] MEDS: MUPIROCIN 2% 22 GM OINT TOP SCH ×2 (11:13→21:38)
[2016-11-17] MEDS: COLLAGENASE 30 GM TUBE TOP SCH (11:13)
[2016-11-17] MEDS: INSULIN GLARGINE [LANtus] 3 ML PEN SC SCH (11:44)
[2016-11-17] MEDS: morphine 2 MG INJ IV PRN (12:01)
[2016-11-17] MEDS: SILDENAFIL 20 MG TAB GTB SCH ×2 (12:01→21:00)
--- NOTE | 2016-11-17 12:22 | PN ---
Date/Time of Note Date/Time of Note DATE: 11/17/16 TIME: 12:21 Assessment/Plan VTE Prophylaxis VTE Prophylaxis Intervention: other Lines/Catheters IV C[facility] Type (from [facility] Saline Lock Urinary Cath still in place: No Assessment/Plan Chief Complaint/Hosp Course - Esophagitis per EGD. Continue Protonix Dr. Hernandez is following in gastroenterology consultation. - Anemia of chronic disease, on Epogen, continue to monitor hemoglobin and hematocrit, transfuse as needed. - Ascites, possible SBP. Status post paracentesis 11/14, follow-up on ascitic fluid culture, continue antibiotics per ID. - Systemic inflammatory response syndrome with leukocytosis, patient is followed by Dr. Benjamin deluna in infection disease consultation. - End-stage renal disease, hemodialysis dependent. Continue hemodialysis per nephrology. - Chronic respiratory failure with tracheostomy. Dr. Sahu is following in pulmonology consultation. - Coronary artery disease with history of PCI. - Diastolic congestive heart failure - Pulmonary hypertension - Peripheral vascular disease, status post left BKA. - Diabetes mellitus type 2, continue NovoLog per sliding scale. - Sacral decub present on admission. Continue current wound care. Problems: Subjective 24 Hr Interval Summary Free Text/Dictation Patient has no complaints Exam/Review of Systems Vital Signs Vitals Vital Signs Date Time Temp Pulse Resp B/P Pulse Ox O2 Delivery O2 Flow Rate FiO2 11/17/16 12:20 93 11/17/16 11:51 98.9 20 119/65 98 11/17/16 11:22 30 11/17/16 06:00 Mechanical Ventilator Intake and Output 11/16/16 11/16/16 11/17/16 15:00 23:00 07:00 Intake Total 400 ml 850 ml 700 ml Output Total 1400 ml Balance -1000 ml 850 ml 700 ml Exam Constitutional: well developed Head: atraumatic, normocephalic Neck: supple Respiratory: diminished breath sounds Cardiovascular: regular rate and rhythm Gastrointestinal: non-tender, soft Extremities: normal pulses Results Result Diagram: 11/17/16 0550 11/17/16 0550 Results 24 hrs Laboratory Tests Test 11/16/16 17:58 11/16/16 20:33 11/16/16 23:45 11/17/16 05:50 Bedside Glucose 164 174 Hemoglobin 11.1 L 9.7 L Hematocrit 35.5 L 31.7 L White Blood Count 8.8 Red Blood Count 3.13 L Mean Corpuscular Volume 101.3 H Mean Corpuscular Hemoglobin 31.0 Mean Corpuscular Hemoglobin Concent 30.6 L Red Cell Distribution Width 18.4 H Platelet Count 172 # Mean Platelet Volume 8.9 Neutrophils % 76.6 Lymphocytes % 10.3 L Monocytes % 10.4 Eosinophils % 1.4 Basophils % 0.6 Nucleated Red Blood Cells % 0.0 Neutrophils # 6.8 Lymphocytes # 0.9 Monocytes # 0.9 Eosinophils # 0.1 Basophils # 0.1 Nucleated Red Blood Cells # 0.0 Sodium Level 141 Potassium Level 4.0 Chloride Level 106 Carbon Dioxide Level 26 Anion Gap 13 Blood Urea Nitrogen 36 #H Creatinine 2.24 H Glucose Level 176 Calcium Level 7.7 L Test 11/17/16 06:36 Bedside Glucose 184 Medications Medications Current Medications Lidocaine (Lidoderm) 1 patch DAILY TD Last administered on 11/17/16 11:06; Admin Dose 1 PATCH; Start 11/08/16 at 15:30 Acetaminophen (Tylenol Liquid) 325 mg Q4H PRN GTB MILD PAIN LEVEL 1-3 Last administered on 11/17/16 02:37; Admin Dose 325 MG; Start 11/08/16 at 15:30 Acetaminophen (Tylenol Liquid) 650 mg Q4H PRN GTB MODERATE PAIN LEVEL 4-6 Last administered on 11/09/16 05:28; Admin Dose 650 MG; Start 11/08/16 at 15:30 Ascorbic Acid (Vitamin C) 500 mg DAILY GTB Last administered on 11/17/16 11:08 ; Admin Dose 500 MG; Start 11/09/16 at 09:00 Atorvastatin Calcium (Lipitor) 40 mg QHS GTB Last administered on 11/16/16 21: 08; Admin Dose 40 MG; Start 11/08/16 at 21:00 Carvedilol (Coreg) 3.125 mg BID GTB Last administered on 11/16/16 21:08; Admin Dose 3.125 MG; Start 11/08/16 at 21:00 Duloxetine HCl (Cymbalta) 30 mg DAILY GTB Last administered on 11/17/16 11:07; Admin Dose 30 MG; Start 11/09/16 at 09:00 Fluticasone Propionate (Flonase 0.05% Nasal) 1 spray BID NASAL Last administered on 11/17/16 11:12; Admin Dose 1 SPRAY; Start 11/08/16 at 21:00 Insulin Glargine (Lantus) 10 unit DAILY SC Last administered on 11/17/16 11:44 ; Admin Dose 10 UNIT; Start 11/09/16 at 09:00 Lactobacillus Acidoph/Bulgaricus (Floranex) 1 tab DAILY GTB Last administered on 11/17/16 11:07; Admin Dose 1 TAB; Start 11/09/16 at 09:00 Sildenafil Citrate (Revatio) 20 mg BID GTB Last administered on 11/17/16 12:01 ; Admin Dose 20 MG; Start 11/08/16 at 21:00 Zinc Sulfate (Zinc Sulfate) 220 mg DAILY GTB Last administered on 11/17/16 11: 07; Admin Dose 220 MG; Start 11/09/16 at 09:00 Vitamin B Complex/ Vitamin C (Berocca) 1 cap DAILY GTB Last administered on 11/17 11:07; Admin Dose 1 CAP; Start 11/09/16 at 09:00 Miscellaneous Information 1 ea NOTE XX ; Start 11/08/16 at 16:00 Glucose (Glutose) 15 gm Q15M PRN PO DECREASED GLUCOSE; Start 11/08/16 at 16:00 Glucose (Glutose) 22.5 gm Q15M PRN PO DECREASED GLUCOSE; Start 11/08/16 at 16: 00 Dextrose (D50w Syringe) 25 ml Q15M PRN IV DECREASED GLUCOSE; Start 11/08/16 at 16:00 Dextrose (D50w Syringe) 50 ml Q15M PRN IV DECREASED GLUCOSE; Start 11/08/16 at 16:00 Glucagon (Glucagen) 1 mg Q15M PRN IM DECREASED GLUCOSE; Start 11/08/16 at 16:00 Glucose (Glutose) 15 gm Q15M PRN BUCCAL DECREASED GLUCOSE; Start 11/08/16 at 16 :00 Acetaminophen/ Hydrocodone Bitart ([place] (5/325)) 1 tab Q4H PRN PO SEVERE PAIN 7-10 Last administered on 11/16/16 14:59; Admin Dose 1 TAB; Start 11/08/16 at 21:00 Morphine Sulfate (morphine) 2 mg Q4H PRN IV PAIN LEVEL 7-10 Last administered on 11/17/16 12:01; Admin Dose 2 MG; Start 11/09/16 at 11:00 Collagenase (Santyl) 1 applic DAILY TOP Last administered on 11/17/16 11:13; Admin Dose 1 APPLIC; Start 11/09/16 at 16:00 Lorazepam (Ativan) 1 mg Q6H PRN IV AGITATION/ANXIETY Last administered on 02:37; Admin Dose 1 MG; Start 11/09/16 at 20:30 Pantoprazole (Protonix Iv) 40 mg BID@06,18 IV Last administered on 11/17/16 06: 29; Admin Dose 40 MG; Start 11/10/16 at 06:00 Sodium Phosphate (Neutra-Phos) 250 mg BID GTB Last administered on 11/17/16 11: 07; Admin Dose 250 MG; Start 11/10/16 at 09:00 Mupirocin (Bactroban) 1 applic BID TOP Last administered on 11/17/16 11:13; Admin Dose 1 APPLIC; Start 11/10/16 at 12:30 Insulin Aspart NOVOLOG *MILD* ALGORI... Q6 SC Last administered on 11/17/16 06: 43; Admin Dose 2 UNIT; Start 11/11/16 at 00:00 Metronidazole (Flagyl 500 Mg (Pmx)) 100 ml @ 100 mls/hr Q8 IVPB Last administered on 11/17/16 06:29; Admin Dose 100 MLS/HR; Start 11/11/16 at 14:00 Calcium/Vitamin D 1 tab 1 tab DAILY GTB Last administered on 11/17/16 11:08; Admin Dose 1 TAB; Start 11/12/16 at 11:00 Cefepime HCl/ Sodium Chloride (Maxipime/NS) 50 ml @ 100 mls/hr Q24H IVPB Last administered on 11/16/16 16:10; Admin Dose 100 MLS/HR; Start 11/12/16 at 14:00 LESLIE PEDROZA Nov 17, 2016 12:22
[2016-11-17] MEDS: CEFEPIME HCL 0.5 GM in SOD CHLORIDE 0.9% 50 ML IVPB SCH ×2 (14:00→17:04)
--- NOTE | 2016-11-17 19:13 | CONS ---
Date/Time of Note Date/Time of Note DATE: 11/17/16 TIME: 19:12 Consult Date/Type/Reason Admit Date/Time Nov 08, 2016 at 10:56 Initial Consult Date 11/09/16 Type of Consultation: Pulmonary Ordering Provider: GRACIE KATHLEEN Subjective No events. Objective Vital Signs Date Time Temp Pulse Resp B/P Pulse Ox O2 Delivery O2 Flow Rate FiO2 11/17/16 17:28 97 22 98 30 11/17/16 16:07 98.7 96/57 11/17/16 06:00 Mechanical Ventilator Intake and Output 11/16/16 11/16/16 11/17/16 15:00 23:00 07:00 Intake Total 400 ml 850 ml 700 ml Output Total 1400 ml Balance -1000 ml 850 ml 700 ml Exam HEENT: Pupils equal, round, and reactive to light. Tracheostomy site clean and intact. CARDIAC: S1, S2, RRR CHEST: Diminished air entry bilaterally. ABDOMEN: Mildly distended. No bowel sounds. EXTREMITIES: No cyanosis, clubbing edema +1 Results/Medications Result Diagram: 11/17/16 0550 11/17/16 0550 Results 24 hrs Laboratory Tests Test 11/16/16 20:33 11/16/16 23:45 11/17/16 05:50 11/17/16 06:36 Hemoglobin 11.1 L 9.7 L Hematocrit 35.5 L 31.7 L Bedside Glucose 174 184 White Blood Count 8.8 Red Blood Count 3.13 L Mean Corpuscular Volume 101.3 H Mean Corpuscular Hemoglobin 31.0 Mean Corpuscular Hemoglobin Concent 30.6 L Red Cell Distribution Width 18.4 H Platelet Count 172 # Mean Platelet Volume 8.9 Neutrophils % 76.6 Lymphocytes % 10.3 L Monocytes % 10.4 Eosinophils % 1.4 Basophils % 0.6 Nucleated Red Blood Cells % 0.0 Neutrophils # 6.8 Lymphocytes # 0.9 Monocytes # 0.9 Eosinophils # 0.1 Basophils # 0.1 Nucleated Red Blood Cells # 0.0 Sodium Level 141 Potassium Level 4.0 Chloride Level 106 Carbon Dioxide Level 26 Anion Gap 13 Blood Urea Nitrogen 36 #H Creatinine 2.24 H Glucose Level 176 Calcium Level 7.7 L Test 11/17/16 12:33 Bedside Glucose 194 Medications Current Medications Lidocaine (Lidoderm) 1 patch DAILY TD Last administered on 11/17/16 11:06; Admin Dose 1 PATCH; Start 11/08/16 at 15:30 Acetaminophen (Tylenol Liquid) 325 mg Q4H PRN GTB MILD PAIN LEVEL 1-3 Last administered on 11/17/16 02:37; Admin Dose 325 MG; Start 11/08/16 at 15:30 Acetaminophen (Tylenol Liquid) 650 mg Q4H PRN GTB MODERATE PAIN LEVEL 4-6 Last administered on 11/09/16 05:28; Admin Dose 650 MG; Start 11/08/16 at 15:30 Ascorbic Acid (Vitamin C) 500 mg DAILY GTB Last administered on 11/17/16 11:08 ; Admin Dose 500 MG; Start 11/09/16 at 09:00 Atorvastatin Calcium (Lipitor) 40 mg QHS GTB Last administered on 11/16/16 21: 08; Admin Dose 40 MG; Start 11/08/16 at 21:00 Carvedilol (Coreg) 3.125 mg BID GTB Last administered on 11/16/16 21:08; Admin Dose 3.125 MG; Start 11/08/16 at 21:00 Duloxetine HCl (Cymbalta) 30 mg DAILY GTB Last administered on 11/17/16 11:07; Admin Dose 30 MG; Start 11/09/16 at 09:00 Fluticasone Propionate (Flonase 0.05% Nasal) 1 spray BID NASAL Last administered on 11/17/16 11:12; Admin Dose 1 SPRAY; Start 11/08/16 at 21:00 Insulin Glargine (Lantus) 10 unit DAILY SC Last administered on 11/17/16 11:44 ; Admin Dose 10 UNIT; Start 11/09/16 at 09:00 Lactobacillus Acidoph/Bulgaricus (Floranex) 1 tab DAILY GTB Last administered on 11/17/16 11:07; Admin Dose 1 TAB; Start 11/09/16 at 09:00 Sildenafil Citrate (Revatio) 20 mg BID GTB Last administered on 11/17/16 12:01 ; Admin Dose 20 MG; Start 11/08/16 at 21:00 Zinc Sulfate (Zinc Sulfate) 220 mg DAILY GTB Last administered on 11/17/16 11: 07; Admin Dose 220 MG; Start 11/09/16 at 09:00 Vitamin B Complex/ Vitamin C (Berocca) 1 cap DAILY GTB Last administered on 11/17 11:07; Admin Dose 1 CAP; Start 11/09/16 at 09:00 Miscellaneous Information 1 ea NOTE XX ; Start 11/08/16 at 16:00 Glucose (Glutose) 15 gm Q15M PRN PO DECREASED GLUCOSE; Start 11/08/16 at 16:00 Glucose (Glutose) 22.5 gm Q15M PRN PO DECREASED GLUCOSE; Start 11/08/16 at 16: 00 Dextrose (D50w Syringe) 25 ml Q15M PRN IV DECREASED GLUCOSE; Start 11/08/16 at 16:00 Dextrose (D50w Syringe) 50 ml Q15M PRN IV DECREASED GLUCOSE; Start 11/08/16 at 16:00 Glucagon (Glucagen) 1 mg Q15M PRN IM DECREASED GLUCOSE; Start 11/08/16 at 16:00 Glucose (Glutose) 15 gm Q15M PRN BUCCAL DECREASED GLUCOSE; Start 11/08/16 at 16 :00 Acetaminophen/ Hydrocodone Bitart ([place] (5/325)) 1 tab Q4H PRN PO SEVERE PAIN 7-10 Last administered on 11/16/16 14:59; Admin Dose 1 TAB; Start 11/08/16 at 21:00 Morphine Sulfate (morphine) 2 mg Q4H PRN IV PAIN LEVEL 7-10 Last administered on 11/17/16 12:01; Admin Dose 2 MG; Start 11/09/16 at 11:00 Collagenase (Santyl) 1 applic DAILY TOP Last administered on 11/17/16 11:13; Admin Dose 1 APPLIC; Start 11/09/16 at 16:00 Lorazepam (Ativan) 1 mg Q6H PRN IV AGITATION/ANXIETY Last administered on 02:37; Admin Dose 1 MG; Start 11/09/16 at 20:30 Pantoprazole (Protonix Iv) 40 mg BID@,18 IV Last administered on 11/17/16 06: 29; Admin Dose 40 MG; Start 11/10/16 at 06:00 Sodium Phosphate (Neutra-Phos) 250 mg BID GTB Last administered on 11/17/16 11: 07; Admin Dose 250 MG; Start 11/10/16 at 09:00 Mupirocin (Bactroban) 1 applic BID TOP Last administered on 11/17/16 11:13; Admin Dose 1 APPLIC; Start 11/10/16 at 12:30 Insulin Aspart NOVOLOG *MILD* ALGORI... Q6 SC Last administered on 11/17/16 12: 49; Admin Dose 2 UNIT; Start 11/11/16 at 00:00 Metronidazole (Flagyl 500 Mg (Pmx)) 100 ml @ 100 mls/hr Q8 IVPB Last administered on 11/17/16 15:44; Admin Dose 100 MLS/HR; Start 11/11/16 at 14:00 Calcium/Vitamin D 1 tab 1 tab DAILY GTB Last administered on 11/17/16 11:08; Admin Dose 1 TAB; Start 11/12/16 at 11:00 Cefepime HCl/ Sodium Chloride (Maxipime/NS) 50 ml @ 100 mls/hr Q24H IVPB Last administered on 11/17/16 17:04; Admin Dose 100 MLS/HR; Start 11/12/16 at 14:00 Prochlorperazine (Compazine) 5 mg Q6H PRN GTB NAUSEA AND/OR VOMITING; Start 11/17/16 at 17:30 Assessment/Plan Additional Assessment/Plan IMP: 1. Vent dependent respiratory failure 2. End-stage renal failure on hemodialysis 3. Recent urinary tract infection with sepsis 4. Anemia of chronic disease and possibly secondary to renal dysfunction 5. Dysphagia with G-tube RECS: 1. Continue mechanical ventilation 2. Tube feeding as tolerated 3. Hemodialysis per nephrology 4. Antibiotics per infectious diseases 5. DVT and GI prophylaxis 6. Am labs ASHLEY MOORE MD Nov 17, 2016 19:13
--- NOTE | 2016-11-17 20:04 | CONS ---
JERICHO CRABTREE NP 11/17/16 2004: Date/Time of Note Date/Time of Note DATE: 11/17/16 TIME: 20:03 Assessment/Plan Assessment/Plan Chief Complaint/Hosp Course - sepsis - h/o GIB - ascites, s/p paracentesis on 11/14/2016 - near complete collapse of RLL with LLL atelectasis, pulmonary edema - h/o severe C diff colitis in 2016 - ESRD on HD - VDRF on trach - G tube dependence - PVD - s/p L BKA - abdominal pain recommendations - Will review results of paracentesis from 11/14/2016, so far does not appear consistent with SBP - DC empiric SBP treatment since ascetic cultures remain negative: renally dosed cefepime (11/12/2016-) and metronidazole (10/14/2016-) - Monitor closely off abx - Above d/w Dr. Hammer Problems: Consultation Date/Type/Reason Admit Date/Time Nov 08, 2016 at 10:56 Initial Consult Date 11/09/16 Type of Consultation: Infectious Disease Referring Provider: GRACIE KATHLEEN 24 HR Interval Summary Free Text/Dictation C/o abdominal pain. Unable to perform ROS d/t pt's anxiety and pt being non-verbal Exam/Review of Systems Vital Signs Vitals Vital Signs Date Time Temp Pulse Resp B/P Pulse Ox O2 Delivery O2 Flow Rate FiO2 11/17/16 19:53 98.0 50 20 97/51 90 11/17/16 19:41 30 11/17/16 06:00 Mechanical Ventilator Intake and Output 11/16/16 11/16/16 11/17/16 15:00 23:00 07:00 Intake Total 400 ml 850 ml 700 ml Output Total 1400 ml Balance -1000 ml 850 ml 700 ml Exam Constitutional: alert, frail, non-verbal Psych: anxiety, confusion Head: atraumatic, normocephalic Neck: other (trach midline), supple Respiratory: clear to auscultation, diminished breath sounds Cardiovascular: regular rate and rhythm Gastrointestinal: other (GT with TF), soft, tender (non-specific) Extremities: edema, normal pulses, other (Left BKA) Skin: nl turgor, other (RLE abrasion) Results Result Diagram: 11/17/16 0550 11/17/16 0550 Results 24 hrs Laboratory Tests Test 11/16/16 20:33 11/16/16 23:45 11/17/16 05:50 11/17/16 06:36 Hemoglobin 11.1 L 9.7 L Hematocrit 35.5 L 31.7 L Bedside Glucose 174 184 White Blood Count 8.8 Red Blood Count 3.13 L Mean Corpuscular Volume 101.3 H Mean Corpuscular Hemoglobin 31.0 Mean Corpuscular Hemoglobin Concent 30.6 L Red Cell Distribution Width 18.4 H Platelet Count 172 # Mean Platelet Volume 8.9 Neutrophils % 76.6 Lymphocytes % 10.3 L Monocytes % 10.4 Eosinophils % 1.4 Basophils % 0.6 Nucleated Red Blood Cells % 0.0 Neutrophils # 6.8 Lymphocytes # 0.9 Monocytes # 0.9 Eosinophils # 0.1 Basophils # 0.1 Nucleated Red Blood Cells # 0.0 Sodium Level 141 Potassium Level 4.0 Chloride Level 106 Carbon Dioxide Level 26 Anion Gap 13 Blood Urea Nitrogen 36 #H Creatinine 2.24 H Glucose Level 176 Calcium Level 7.7 L Test 11/17/16 12:33 11/17/16 19:14 Bedside Glucose 194 140 Medications Medications Current Medications Lidocaine (Lidoderm) 1 patch DAILY TD Last administered on 11/17/16 11:06; Admin Dose 1 PATCH; Start 11/08/16 at 15:30 Acetaminophen (Tylenol Liquid) 325 mg Q4H PRN GTB MILD PAIN LEVEL 1-3 Last administered on 11/17/16 02:37; Admin Dose 325 MG; Start 11/08/16 at 15:30 Acetaminophen (Tylenol Liquid) 650 mg Q4H PRN GTB MODERATE PAIN LEVEL 4-6 Last administered on 11/09/16 05:28; Admin Dose 650 MG; Start 11/08/16 at 15:30 Ascorbic Acid (Vitamin C) 500 mg DAILY GTB Last administered on 11/17/16 11:08 ; Admin Dose 500 MG; Start 11/09/16 at 09:00 Atorvastatin Calcium (Lipitor) 40 mg QHS GTB Last administered on 11/16/16 21: 08; Admin Dose 40 MG; Start 11/08/16 at 21:00 Carvedilol (Coreg) 3.125 mg BID GTB Last administered on 11/16/16 21:08; Admin Dose 3.125 MG; Start 11/08/16 at 21:00 Duloxetine HCl (Cymbalta) 30 mg DAILY GTB Last administered on 11/17/16 11:07; Admin Dose 30 MG; Start 11/09/16 at 09:00 Fluticasone Propionate (Flonase 0.05% Nasal) 1 spray BID NASAL Last administered on 11/17/16 11:12; Admin Dose 1 SPRAY; Start 11/08/16 at 21:00 Insulin Glargine (Lantus) 10 unit DAILY SC Last administered on 11/17/16 11:44 ; Admin Dose 10 UNIT; Start 11/09/16 at 09:00 Lactobacillus Acidoph/Bulgaricus (Floranex) 1 tab DAILY GTB Last administered on 11/17/16 11:07; Admin Dose 1 TAB; Start 11/09/16 at 09:00 Sildenafil Citrate (Revatio) 20 mg BID GTB Last administered on 11/17/16 12:01 ; Admin Dose 20 MG; Start 11/08/16 at 21:00 Zinc Sulfate (Zinc Sulfate) 220 mg DAILY GTB Last administered on 11/17/16 11: 07; Admin Dose 220 MG; Start 11/09/16 at 09:00 Vitamin B Complex/ Vitamin C (Berocca) 1 cap DAILY GTB Last administered on 11/17 11:07; Admin Dose 1 CAP; Start 11/09/16 at 09:00 Miscellaneous Information 1 ea NOTE XX ; Start 11/08/16 at 16:00 Glucose (Glutose) 15 gm Q15M PRN PO DECREASED GLUCOSE; Start 11/08/16 at 16:00 Glucose (Glutose) 22.5 gm Q15M PRN PO DECREASED GLUCOSE; Start 11/08/16 at 16: 00 Dextrose (D50w Syringe) 25 ml Q15M PRN IV DECREASED GLUCOSE; Start 11/08/16 at 16:00 Dextrose (D50w Syringe) 50 ml Q15M PRN IV DECREASED GLUCOSE; Start 11/08/16 at 16:00 Glucagon (Glucagen) 1 mg Q15M PRN IM DECREASED GLUCOSE; Start 11/08/16 at 16:00 Glucose (Glutose) 15 gm Q15M PRN BUCCAL DECREASED GLUCOSE; Start 11/08/16 at 16 :00 Acetaminophen/ Hydrocodone Bitart ([place] (5/325)) 1 tab Q4H PRN PO SEVERE PAIN 7-10 Last administered on 11/16/16 14:59; Admin Dose 1 TAB; Start 11/08/16 at 21:00 Morphine Sulfate (morphine) 2 mg Q4H PRN IV PAIN LEVEL 7-10 Last administered on 11/17/16 12:01; Admin Dose 2 MG; Start 11/09/16 at 11:00 Collagenase (Santyl) 1 applic DAILY TOP Last administered on 11/17/16 11:13; Admin Dose 1 APPLIC; Start 11/09/16 at 16:00 Lorazepam (Ativan) 1 mg Q6H PRN IV AGITATION/ANXIETY Last administered on 02:37; Admin Dose 1 MG; Start 11/09/16 at 20:30 Pantoprazole (Protonix Iv) 40 mg BID@06,18 IV Last administered on 11/17/16 19: 13; Admin Dose 40 MG; Start 11/10/16 at 06:00 Sodium Phosphate (Neutra-Phos) 250 mg BID GTB Last administered on 11/17/16 11: 07; Admin Dose 250 MG; Start 11/10/16 at 09:00 Mupirocin (Bactroban) 1 applic BID TOP Last administered on 11/17/16 11:13; Admin Dose 1 APPLIC; Start 11/10/16 at 12:30 Insulin Aspart NOVOLOG *MILD* ALGORI... Q6 SC Last administered on 11/17/16 12: 49; Admin Dose 2 UNIT; Start 11/11/16 at 00:00 Metronidazole (Flagyl 500 Mg (Pmx)) 100 ml @ 100 mls/hr Q8 IVPB Last administered on 11/17/16 15:44; Admin Dose 100 MLS/HR; Start 11/11/16 at 14:00 Calcium/Vitamin D 1 tab 1 tab DAILY GTB Last administered on 11/17/16 11:08; Admin Dose 1 TAB; Start 11/12/16 at 11:00 Cefepime HCl/ Sodium Chloride (Maxipime/NS) 50 ml @ 100 mls/hr Q24H IVPB Last administered on 11/17/16 17:04; Admin Dose 100 MLS/HR; Start 11/12/16 at 14:00 Prochlorperazine (Compazine) 5 mg Q6H PRN GTB NAUSEA AND/OR VOMITING; Start 11/17/16 at 17:30 SADIA HAMMER M.D. 11/19/16 1210: Assessment/Plan Assessment/Plan Chief Complaint/Hosp Course Jaquelin: I discussed the management with SARAN Crabtree and agree with above. Problems: Exam/Review of Systems Results Result Diagram: 11/17/16 0550 11/17/16 0550 JERICHO CRABTREE NP Nov 17, 2016 20:04 SADIA HAMMER M.D. Nov 19, 2016 12:10
[2016-11-17 21:08] LABS: HEMATOCRIT 32.6 % (42.0-52.0); HEMOGLOBIN 10.2 g/dl (14.0-18.0)
[2016-11-17] MEDS: ATORVASTATIN 40 MG TAB GTB SCH (21:37)
[2016-11-18] VITALS (34 sets, daily range): BP systolic 83–115; BP diastolic 43–66; PULSE 82–108; RESP 15–24
[2016-11-18] MEDS: PANTOPRAZOLE 40 MG INJ IV SCH ×2 (05:54→18:10)
[2016-11-18] MEDS: ACETAMINOPHEN 650MG/20.3ML CUP GTB PRN ×2 (05:54→23:57)
[2016-11-18] MEDS: INSULIN ASPART [NOVOLOG] 3 ML PEN SC SCH ×4 (06:15→18:15)
[2016-11-18 06:37] LABS: ADD SCAN DIFF NO
[2016-11-18 06:48] LABS: BASOPHILS % 0.4 % (0.0-2.0); EOSINOPHILS # 0.1 10^3/ul (0.0-0.5); HEMATOCRIT 33.3 % (42.0-52.0); HEMOGLOBIN 10.2 g/dl (14.0-18.0); LYMPHOCYTES % 9.6 % (15.0-51.0); MEAN CORPUSCULAR HEMOGLOBIN 30.8 pg (29.0-33.0); MEAN CORPUSCULAR HGB CONC 30.6 g/dl (32.0-37.0); MEAN CORPUSCULAR VOLUME 100.6 fl (82.0-101.0); MEAN PLATELET VOLUME 9.2 fl (7.4-10.4); MONOCYTE # 1.1 10^3/ul (0.3-0.9); MONOCYTES % 10.5 % (0.0-11.0); NEUTROPHIL # 8.3 10^3/ul (1.6-7.5); NEUTROPHILS % 77.7 % (39.0-77.0); PLATELET COUNT 176 10^3/UL (140-415); RED BLOOD COUNT 3.31 10^6/ul (4.70-6.10); RED CELL DISTRIBUTION WIDTH 18.3 % (11.5-14.5); WHITE BLOOD COUNT 10.7 10^3/ul (4.8-10.8)
[2016-11-18 07:09] LABS: POTASSIUM 4.3 mmol/L (3.5-5.1)
[2016-11-18 07:11] LABS: CREATININE 2.7 mg/dl (0.61-1.24)
[2016-11-18 07:12] LABS: CALCIUM 7.8 mg/dl (8.4-10.2)
--- NOTE | 2016-11-18 08:39 | PN ---
DATE: 11/18/2016 SUBJECTIVE: The patient is stable. He had hemodialysis on 11/16/2016 and tolerated well. No other events noted. OBJECTIVE: VITAL SIGNS: Blood pressure 99/64, respiration 18, pulse 79, temperature 98.7. HEENT: Head is normocephalic. NECK: Supple. HEART: Regular rate. LUNGS: Show diminished breath sounds at the base. ABDOMEN: Soft, nontender to palpation. No rebound or guarding. EXTREMITIES: Negative for clubbing or cyanosis. No edema in the right leg. Left BKA is noted. NEUROLOGIC: No change in exam. DERMATOLOGIC: No rashes. MUSCULOSKELETAL: No joint effusions. MEDICATIONS: Have been reviewed. LABORATORY DATA: Sodium 142, potassium 4.3, chloride 107, BUN 46, creatinine 2.70. White count 10. 7, hemoglobin 10.2, hematocrit 33.3, platelet count is 176. ASSESSMENT AND PLAN: 1. End-stage renal disease. The patient is on dialysis Saturday, Saturday, Saturday. Anticipate dial ysis tomorrow. 2. Anemia of end-stage renal disease. Continue to monitor hemoglobin and hematocrit levels. Rachel nue Epogen. 3. Mineral bone disorder. Continue to monitor calcium and phosphorus levels. Continue phosphate s upplementation at this time due to hypophosphatemia. 4. Volume overload, clinically improving. Continue ultrafiltration dialysis. 5. Sepsis secondary to pneumonia. Continue current antibiotic regimen. 6. Ventilator dependent respiratory failure. Vent settings have been reviewed. Continue to monito r. Follow up with pulmonary. 7. Dysphagia status post PEG. Continue tube feeding. 8. Coronary artery disease. Continue current medical management. 9. Diabetes. Continue Accu-Cheks and sliding scale. 10. Depression and anxiety disorder. Continue current treatment plan. 11. Hypertension. Continue to monitor blood pressures closely as the patient has episodes of hypot ension. 12. Congestive heart failure. Continue current medical management and ultrafiltration dialysis. Dictated By: SARAHI RINALDI/OLESYA Conf#: [id number] DID#: [id number]
[2016-11-18] MEDS: SILDENAFIL 20 MG TAB GTB SCH ×2 (09:00→22:06)
[2016-11-18] MEDS: ZINC SULFATE 220 MG CAP GTB SCH (09:20)
[2016-11-18] MEDS: ASCORBIC ACID 500 MG TAB GTB SCH (09:21)
[2016-11-18] MEDS: CALCIUM/VITAMIN D (500/200) TAB GTB SCH (09:21)
[2016-11-18] MEDS: LACTOBACILLUS CHEW TAB GTB SCH (09:21)
[2016-11-18] MEDS: MUPIROCIN 2% 22 GM OINT TOP SCH ×2 (09:22→22:07)
[2016-11-18] MEDS: DULOXETINE 30 MG CAP DR GTB SCH (09:22)
[2016-11-18] MEDS: VITAMIN B COMPLEX/VIT C CAP GTB SCH (09:22)
[2016-11-18] MEDS: FLUTICASONE 0.05% 16 GM NAS SPRAY NASAL SCH ×2 (09:22→22:07)
[2016-11-18] MEDS: NEUTRA-PHOS 250 MG PACKET GTB SCH ×2 (09:22→22:06)
[2016-11-18] MEDS: COLLAGENASE 30 GM TUBE TOP SCH (09:23)
[2016-11-18] MEDS: INSULIN GLARGINE [LANtus] 3 ML PEN SC SCH (09:27)
[2016-11-18] MEDS: LIDOCAINE 5% PATCH TD SCH (09:33)
--- NOTE | 2016-11-18 11:40 | PN ---
Date/Time of Note Date/Time of Note DATE: 11/18/16 TIME: 11:39 Assessment/Plan VTE Prophylaxis VTE Prophylaxis Intervention: other Lines/Catheters IV Catheter Type (from [facility]): [facility] Lock Urinary Cath still in place: No Assessment/Plan Chief Complaint/Hosp Course - Esophagitis per EGD. Continue Protonix Dr. Hernandez is following in gastroenterology consultation. - Anemia of chronic disease, on Epogen, continue to monitor hemoglobin and hematocrit, transfuse as needed. - Ascites, possible SBP. Status post paracentesis 11/14, follow-up on ascitic fluid culture, continue antibiotics per ID. - Systemic inflammatory response syndrome with leukocytosis, patient is followed by Dr. Benjamin deluna in infection disease consultation. - End-stage renal disease, hemodialysis dependent. Continue hemodialysis per nephrology. - Chronic respiratory failure with tracheostomy. Dr. Sahu is following in pulmonology consultation. - Coronary artery disease with history of PCI. - Diastolic congestive heart failure - Pulmonary hypertension - Peripheral vascular disease, status post left BKA. - Diabetes mellitus type 2, continue NovoLog per sliding scale. - Sacral decub present on admission. Continue current wound care. Problems: Subjective 24 Hr Interval Summary Free Text/Dictation Patient has no complaints, nurses noted that patient had redness around PEG site and pus from PEG Exam/Review of Systems Vital Signs Vitals Vital Signs Date Time Temp Pulse Resp B/P Pulse Ox O2 Delivery O2 Flow Rate FiO2 11/18/16 10:31 98.6 94 20 112/66 98 11/18/16 10:06 Mechanical Ventilator 11/18/16 09:48 30 Intake and Output 11/17/16 11/17/16 11/18/16 15:00 23:00 07:00 Intake Total 680 ml 590 ml Balance 680 ml 590 ml Exam Constitutional: well developed Head: atraumatic, normocephalic Neck: supple Respiratory: clear to auscultation Cardiovascular: regular rate and rhythm Gastrointestinal: non-tender, soft Extremities: normal pulses Results Result Diagram: 11/18/16 0600 11/18/16 0600 Results 24 hrs Laboratory Tests Test 11/17/16 12:33 11/17/16 19:14 11/17/16 20:50 11/18/16 00:52 Bedside Glucose 194 140 118 Hemoglobin 10.2 L Hematocrit 32.6 L Test 11/18/16 05:53 11/18/16 06:00 Bedside Glucose 165 White Blood Count 10.7 # Red Blood Count 3.31 L Hemoglobin 10.2 L Hematocrit 33.3 L Mean Corpuscular Volume 100.6 Mean Corpuscular Hemoglobin 30.8 Mean Corpuscular Hemoglobin Concent 30.6 L Red Cell Distribution Width 18.3 H Platelet Count 176 Mean Platelet Volume 9.2 Neutrophils % 77.7 H Lymphocytes % 9.6 L Monocytes % 10.5 Eosinophils % 1.0 Basophils % 0.4 Nucleated Red Blood Cells % 0.0 Neutrophils # 8.3 H Lymphocytes # 1.0 Monocytes # 1.1 H Eosinophils # 0.1 Basophils # 0.0 Nucleated Red Blood Cells # 0.0 Sodium Level 142 Potassium Level 4.3 Chloride Level 107 Carbon Dioxide Level 28 Anion Gap 11 Blood Urea Nitrogen 46 H Creatinine 2.70 H Glucose Level 164 Calcium Level 7.8 L Medications Medications Current Medications Lidocaine (Lidoderm) 1 patch DAILY TD Last administered on 11/18/16 09:33; Admin Dose 1 PATCH; Start 11/08/16 at 15:30 Acetaminophen (Tylenol Liquid) 325 mg Q4H PRN GTB MILD PAIN LEVEL 1-3 Last administered on 11/17/16 02:37; Admin Dose 325 MG; Start 11/08/16 at 15:30 Acetaminophen (Tylenol Liquid) 650 mg Q4H PRN GTB MODERATE PAIN LEVEL 4-6 Last administered on 11/18/16 05:54; Admin Dose 650 MG; Start 11/08/16 at 15:30 Ascorbic Acid (Vitamin C) 500 mg DAILY GTB Last administered on 11/18/16 09:21 ; Admin Dose 500 MG; Start 11/09/16 at 09:00 Atorvastatin Calcium (Lipitor) 40 mg QHS GTB Last administered on 11/17/16 21: 37; Admin Dose 40 MG; Start 11/08/16 at 21:00 Carvedilol (Coreg) 3.125 mg BID GTB Last administered on 11/17/16 22:28; Admin Dose 3.125 MG; Start 11/08/16 at 21:00 Duloxetine HCl (Cymbalta) 30 mg DAILY GTB Last administered on 11/18/16 09:22; Admin Dose 30 MG; Start 11/09/16 at 09:00 Fluticasone Propionate (Flonase 0.05% Nasal) 1 spray BID NASAL Last administered on 11/18/16 09:22; Admin Dose 1 SPRAY; Start 11/08/16 at 21:00 Insulin Glargine (Lantus) 10 unit DAILY SC Last administered on 11/18/16 09:27 ; Admin Dose 10 UNIT; Start 11/09/16 at 09:00 Lactobacillus Acidoph/Bulgaricus (Floranex) 1 tab DAILY GTB Last administered on 11/18/16 09:21; Admin Dose 1 TAB; Start 11/09/16 at 09:00 Sildenafil Citrate (Revatio) 20 mg BID GTB Last administered on 11/17/16 12:01 ; Admin Dose 20 MG; Start 11/08/16 at 21:00 Zinc Sulfate (Zinc Sulfate) 220 mg DAILY GTB Last administered on 11/18/16 09: 20; Admin Dose 220 MG; Start 11/09/16 at 09:00 Vitamin B Complex/ Vitamin C (Berocca) 1 cap DAILY GTB Last administered on 11/18 09:22; Admin Dose 1 CAP; Start 11/09/16 at 09:00 Miscellaneous Information 1 ea NOTE XX ; Start 11/08/16 at 16:00 Glucose (Glutose) 15 gm Q15M PRN PO DECREASED GLUCOSE; Start 11/08/16 at 16:00 Glucose (Glutose) 22.5 gm Q15M PRN PO DECREASED GLUCOSE; Start 11/08/16 at 16: 00 Dextrose (D50w Syringe) 25 ml Q15M PRN IV DECREASED GLUCOSE; Start 11/08/16 at 16:00 Dextrose (D50w Syringe) 50 ml Q15M PRN IV DECREASED GLUCOSE; Start 11/08/16 at 16:00 Glucagon (Glucagen) 1 mg Q15M PRN IM DECREASED GLUCOSE; Start 11/08/16 at 16:00 Glucose (Glutose) 15 gm Q15M PRN BUCCAL DECREASED GLUCOSE; Start 11/08/16 at 16 :00 Acetaminophen/ Hydrocodone Bitart ([place] (5/325)) 1 tab Q4H PRN PO SEVERE PAIN 7-10 Last administered on 11/16/16 14:59; Admin Dose 1 TAB; Start 11/08/16 at 21:00 Morphine Sulfate (morphine) 2 mg Q4H PRN IV PAIN LEVEL 7-10 Last administered on 11/17/16 12:01; Admin Dose 2 MG; Start 11/09/16 at 11:00 Collagenase (Santyl) 1 applic DAILY TOP Last administered on 11/18/16 09:23; Admin Dose 1 APPLIC; Start 11/09/16 at 16:00 Lorazepam (Ativan) 1 mg Q6H PRN IV AGITATION/ANXIETY Last administered on 02:37; Admin Dose 1 MG; Start 11/09/16 at 20:30 Pantoprazole (Protonix Iv) 40 mg BID@06,18 IV Last administered on 11/18/16 05: 54; Admin Dose 40 MG; Start 11/10/16 at 06:00 Sodium Phosphate (Neutra-Phos) 250 mg BID GTB Last administered on 11/18/16 09: 22; Admin Dose 250 MG; Start 11/10/16 at 09:00 Mupirocin (Bactroban) 1 applic BID TOP Last administered on 11/18/16 09:22; Admin Dose 1 APPLIC; Start 11/10/16 at 12:30 Insulin Aspart (Novolog Insulin Pen) NOVOLOG *MILD* ALGORI... Q6 SC Last administered on 11/18/16 06:15; Admin Dose 1 UNIT; Start 11/11/16 at 00:00 Calcium/Vitamin D (Oyster Shell/ Vit-D (500/200)) 1 tab DAILY GTB Last administered on 11/18/16 09:21; Admin Dose 1 TAB; Start 11/12/16 at 11:00 Prochlorperazine (Compazine) 5 mg Q6H PRN GTB NAUSEA AND/OR VOMITING; Start 11/17/16 at 17:30 LESLIE PEDROZA Nov 18, 2016 11:40
[2016-11-18] MEDS: morphine 2 MG INJ IV PRN ×2 (13:00→18:11)
--- NOTE | 2016-11-18 16:44 | CONS ---
Date/Time of Note Date/Time of Note DATE: 11/18/16 TIME: 16:43 Consult Date/Type/Reason Admit Date/Time Nov 08, 2016 at 10:56 Initial Consult Date 11/09/16 Type of Consultation: Pulm Ordering Provider: GRACIE KATHLEEN Subjective No events. Objective Vital Signs Date Time Temp Pulse Resp B/P Pulse Ox O2 Delivery O2 Flow Rate FiO2 11/18/16 16:20 90 11/18/16 16:13 97.9 18 109/50 94 11/18/16 15:32 30 11/18/16 14:24 Mechanical Ventilator Intake and Output 11/17/16 11/17/16 11/18/16 15:00 23:00 07:00 Intake Total 680 ml 590 ml Balance 680 ml 590 ml Exam HEENT: Pupils equal, round, and reactive to light. Tracheostomy site clean and intact. CARDIAC: S1, S2, RRR CHEST: Diminished air entry bilaterally. ABDOMEN: Mildly distended. No bowel sounds. EXTREMITIES: No cyanosis, clubbing edema +1 Results/Medications Result Diagram: 11/18/16 0600 11/18/16 0600 Results 24 hrs Laboratory Tests Test 11/17/16 19:14 11/17/16 20:50 11/18/16 00:52 11/18/16 05:53 Bedside Glucose 140 118 165 Hemoglobin 10.2 L Hematocrit 32.6 L Test 11/18/16 06:00 11/18/16 11:53 White Blood Count 10.7 # Red Blood Count 3.31 L Hemoglobin 10.2 L Hematocrit 33.3 L Mean Corpuscular Volume 100.6 Mean Corpuscular Hemoglobin 30.8 Mean Corpuscular Hemoglobin Concent 30.6 L Red Cell Distribution Width 18.3 H Platelet Count 176 Mean Platelet Volume 9.2 Neutrophils % 77.7 H Lymphocytes % 9.6 L Monocytes % 10.5 Eosinophils % 1.0 Basophils % 0.4 Nucleated Red Blood Cells % 0.0 Neutrophils # 8.3 H Lymphocytes # 1.0 Monocytes # 1.1 H Eosinophils # 0.1 Basophils # 0.0 Nucleated Red Blood Cells # 0.0 Sodium Level 142 Potassium Level 4.3 Chloride Level 107 Carbon Dioxide Level 28 Anion Gap 11 Blood Urea Nitrogen 46 H Creatinine 2.70 H Glucose Level 164 Calcium Level 7.8 L Bedside Glucose 177 Medications Current Medications Lidocaine (Lidoderm) 1 patch DAILY TD Last administered on 11/18/16 09:33; Admin Dose 1 PATCH; Start 11/08/16 at 15:30 Acetaminophen (Tylenol Liquid) 325 mg Q4H PRN GTB MILD PAIN LEVEL 1-3 Last administered on 11/17/16 02:37; Admin Dose 325 MG; Start 11/08/16 at 15:30 Acetaminophen (Tylenol Liquid) 650 mg Q4H PRN GTB MODERATE PAIN LEVEL 4-6 Last administered on 11/18/16 05:54; Admin Dose 650 MG; Start 11/08/16 at 15:30 Ascorbic Acid (Vitamin C) 500 mg DAILY GTB Last administered on 11/18/16 09:21 ; Admin Dose 500 MG; Start 11/09/16 at 09:00 Atorvastatin Calcium (Lipitor) 40 mg QHS GTB Last administered on 11/17/16 21: 37; Admin Dose 40 MG; Start 11/08/16 at 21:00 Carvedilol (Coreg) 3.125 mg BID GTB Last administered on 11/17/16 22:28; Admin Dose 3.125 MG; Start 11/08/16 at 21:00 Duloxetine HCl (Cymbalta) 30 mg DAILY GTB Last administered on 11/18/16 09:22; Admin Dose 30 MG; Start 11/09/16 at 09:00 Fluticasone Propionate (Flonase 0.05% Nasal) 1 spray BID NASAL Last administered on 11/18/16 09:22; Admin Dose 1 SPRAY; Start 11/08/16 at 21:00 Insulin Glargine (Lantus) 10 unit DAILY SC Last administered on 11/18/16 09:27 ; Admin Dose 10 UNIT; Start 11/09/16 at 09:00 Lactobacillus Acidoph/Bulgaricus (Floranex) 1 tab DAILY GTB Last administered on 11/18/16 09:21; Admin Dose 1 TAB; Start 11/09/16 at 09:00 Sildenafil Citrate (Revatio) 20 mg BID GTB Last administered on 11/17/16 12:01 ; Admin Dose 20 MG; Start 11/08/16 at 21:00 Zinc Sulfate (Zinc Sulfate) 220 mg DAILY GTB Last administered on 11/18/16 09: 20; Admin Dose 220 MG; Start 11/09/16 at 09:00 Vitamin B Complex/ Vitamin C (Berocca) 1 cap DAILY GTB Last administered on 11/18 09:22; Admin Dose 1 CAP; Start 11/09/16 at 09:00 Miscellaneous Information 1 ea NOTE XX ; Start 11/08/16 at 16:00 Glucose (Glutose) 15 gm Q15M PRN PO DECREASED GLUCOSE; Start 11/08/16 at 16:00 Glucose (Glutose) 22.5 gm Q15M PRN PO DECREASED GLUCOSE; Start 11/08/16 at 16: 00 Dextrose (D50w Syringe) 25 ml Q15M PRN IV DECREASED GLUCOSE; Start 11/08/16 at 16:00 Dextrose (D50w Syringe) 50 ml Q15M PRN IV DECREASED GLUCOSE; Start 11/08/16 at 16:00 Glucagon (Glucagen) 1 mg Q15M PRN IM DECREASED GLUCOSE; Start 11/08/16 at 16:00 Glucose (Glutose) 15 gm Q15M PRN BUCCAL DECREASED GLUCOSE; Start 11/08/16 at 16 :00 Acetaminophen/ Hydrocodone Bitart ([place] (5/325)) 1 tab Q4H PRN PO SEVERE PAIN 7-10 Last administered on 11/16/16 14:59; Admin Dose 1 TAB; Start 11/08/16 at 21:00 Morphine Sulfate (morphine) 2 mg Q4H PRN IV PAIN LEVEL 7-10 Last administered on 11/18/16 13:00; Admin Dose 2 MG; Start 11/09/16 at 11:00 Collagenase (Santyl) 1 applic DAILY TOP Last administered on 11/18/16 09:23; Admin Dose 1 APPLIC; Start 11/09/16 at 16:00 Lorazepam (Ativan) 1 mg Q6H PRN IV AGITATION/ANXIETY Last administered on 02:37; Admin Dose 1 MG; Start 11/09/16 at 20:30 Pantoprazole (Protonix Iv) 40 mg BID@,18 IV Last administered on 11/18/16 05: 54; Admin Dose 40 MG; Start 11/10/16 at 06:00 Sodium Phosphate (Neutra-Phos) 250 mg BID GTB Last administered on 11/18/16 09: 22; Admin Dose 250 MG; Start 11/10/16 at 09:00 Mupirocin (Bactroban) 1 applic BID TOP Last administered on 11/18/16 09:22; Admin Dose 1 APPLIC; Start 11/10/16 at 12:30 Insulin Aspart (Novolog Insulin Pen) NOVOLOG *MILD* ALGORI... Q6 SC Last administered on 11/18/16 12:28; Admin Dose 1 UNIT; Start 11/11/16 at 00:00 Calcium/Vitamin D (Oyster Shell/ Vit-D (500/200)) 1 tab DAILY GTB Last administered on 11/18/16 09:21; Admin Dose 1 TAB; Start 11/12/16 at 11:00 Prochlorperazine (Compazine) 5 mg Q6H PRN GTB NAUSEA AND/OR VOMITING; Start 11/17/16 at 17:30 Assessment/Plan Additional Assessment/Plan IMP: 1. Vent dependent respiratory failure 2. End-stage renal failure on hemodialysis 3. Recent urinary tract infection with sepsis 4. Anemia of chronic disease and possibly secondary to renal dysfunction 5. Dysphagia with G-tube RECS: 1. Vent support 2. TF/free H20 3. Hemodialysis per nephrology 4. Antibiotics per infectious diseases 5. DVT and GI prophylaxis 6. Am labs ASHLEY MOORE MD Nov 18, 2016 16:44
--- NOTE | 2016-11-18 19:44 | CONS ---
JERICHO CRABTREE REGISTERED APPRAISER 11/18/16 1944: Date/Time of Note Date/Time of Note DATE: 11/18/16 TIME: 19:43 Assessment/Plan Assessment/Plan Chief Complaint/Hosp Course - sepsis - h/o GIB - ascites, s/p paracentesis on 11/14/2016; doubt SBP - near complete collapse of RLL with LLL atelectasis, pulmonary edema - h/o severe C diff colitis in 2016 - ESRD on HD - VDRF with trach - G tube dependence - PVD - s/p L BKA - abdominal pain - Abd X-ray 11/16/16 shows no e/o obstruction - MRSA nasal colonization - DNR recommendations - Monitor closely off abx; s/p empiric cefepime (11/12/16-11/17/16) and metronidazole (10/14/2016-11/17/16) - Above d/w Dr. Hammer Problems: Consultation Date/Type/Reason Admit Date/Time Nov 08, 2016 at 10:56 Initial Consult Date 11/09/16 Type of Consultation: Infectious Disease Referring Provider: GRACIE KATHLEEN 24 HR Interval Summary Free Text/Dictation HD not done today d/t marginal BP -rescheduled for tomorrow; had soft BM today; medicated twice for abd pain, no vomiting noted and tolerating GT feeds per d/w JUAN MIGUEL Hogan. Pt sleeping quietly. Subjective hx not possible: pt non-verbal Exam/Review of Systems Vital Signs Vitals Vital Signs Date Time Temp Pulse Resp B/P Pulse Ox O2 Delivery O2 Flow Rate FiO2 11/18/16 18:21 98.7 91 18 99/54 99 Mechanical Ventilator 11/18/16 17:46 30 Intake and Output 11/17/16 11/17/16 11/18/16 15:00 23:00 07:00 Intake Total 680 ml 590 ml Balance 680 ml 590 ml Exam Constitutional: sleeping, chronically debilitated, trach on vent Head: atraumatic, normocephalic Neck: other (trach midline), supple Respiratory: clear to auscultation, diminished breath sounds Cardiovascular: regular rate and rhythm Gastrointestinal: other (GT with TF), soft Extremities: edema (RLE), normal pulses, other (Left BKA) Skin: nl turgor, other (RLE abrasion) Results Result Diagram: 11/18/16 0600 11/18/16 0600 Results 24 hrs Laboratory Tests Test 11/17/16 20:50 11/18/16 00:52 11/18/16 05:53 11/18/16 06:00 Hemoglobin 10.2 L 10.2 L Hematocrit 32.6 L 33.3 L Bedside Glucose 118 165 White Blood Count 10.7 # Red Blood Count 3.31 L Mean Corpuscular Volume 100.6 Mean Corpuscular Hemoglobin 30.8 Mean Corpuscular Hemoglobin Concent 30.6 L Red Cell Distribution Width 18.3 H Platelet Count 176 Mean Platelet Volume 9.2 Neutrophils % 77.7 H Lymphocytes % 9.6 L Monocytes % 10.5 Eosinophils % 1.0 Basophils % 0.4 Nucleated Red Blood Cells % 0.0 Neutrophils # 8.3 H Lymphocytes # 1.0 Monocytes # 1.1 H Eosinophils # 0.1 Basophils # 0.0 Nucleated Red Blood Cells # 0.0 Sodium Level 142 Potassium Level 4.3 Chloride Level 107 Carbon Dioxide Level 28 Anion Gap 11 Blood Urea Nitrogen 46 H Creatinine 2.70 H Glucose Level 164 Calcium Level 7.8 L Test 11/18/16 11:53 11/18/16 18:09 Bedside Glucose 177 168 Medications Medications Current Medications Lidocaine (Lidoderm) 1 patch DAILY TD Last administered on 11/18/16 09:33; Admin Dose 1 PATCH; Start 11/08/16 at 15:30 Acetaminophen (Tylenol Liquid) 325 mg Q4H PRN GTB MILD PAIN LEVEL 1-3 Last administered on 11/17/16 02:37; Admin Dose 325 MG; Start 11/08/16 at 15:30 Acetaminophen (Tylenol Liquid) 650 mg Q4H PRN GTB MODERATE PAIN LEVEL 4-6 Last administered on 11/18/16 05:54; Admin Dose 650 MG; Start 11/08/16 at 15:30 Ascorbic Acid (Vitamin C) 500 mg DAILY GTB Last administered on 11/18/16 09:21 ; Admin Dose 500 MG; Start 11/09/16 at 09:00 Atorvastatin Calcium (Lipitor) 40 mg QHS GTB Last administered on 11/17/16 21: 37; Admin Dose 40 MG; Start 11/08/16 at 21:00 Carvedilol (Coreg) 3.125 mg BID GTB Last administered on 11/17/16 22:28; Admin Dose 3.125 MG; Start 11/08/16 at 21:00 Duloxetine HCl (Cymbalta) 30 mg DAILY GTB Last administered on 11/18/16 09:22; Admin Dose 30 MG; Start 11/09/16 at 09:00 Fluticasone Propionate (Flonase 0.05% Nasal) 1 spray BID NASAL Last administered on 11/18/16 09:22; Admin Dose 1 SPRAY; Start 11/08/16 at 21:00 Insulin Glargine (Lantus) 10 unit DAILY SC Last administered on 11/18/16 09:27 ; Admin Dose 10 UNIT; Start 11/09/16 at 09:00 Lactobacillus Acidoph/Bulgaricus (Floranex) 1 tab DAILY GTB Last administered on 11/18/16 09:21; Admin Dose 1 TAB; Start 11/09/16 at 09:00 Sildenafil Citrate (Revatio) 20 mg BID GTB Last administered on 11/17/16 12:01 ; Admin Dose 20 MG; Start 11/08/16 at 21:00 Zinc Sulfate (Zinc Sulfate) 220 mg DAILY GTB Last administered on 11/18/16 09: 20; Admin Dose 220 MG; Start 11/09/16 at 09:00 Vitamin B Complex/ Vitamin C (Berocca) 1 cap DAILY GTB Last administered on 11/18 09:22; Admin Dose 1 CAP; Start 11/09/16 at 09:00 Miscellaneous Information 1 ea NOTE XX ; Start 11/08/16 at 16:00 Glucose (Glutose) 15 gm Q15M PRN PO DECREASED GLUCOSE; Start 11/08/16 at 16:00 Glucose (Glutose) 22.5 gm Q15M PRN PO DECREASED GLUCOSE; Start 11/08/16 at 16: 00 Dextrose (D50w Syringe) 25 ml Q15M PRN IV DECREASED GLUCOSE; Start 11/08/16 at 16:00 Dextrose (D50w Syringe) 50 ml Q15M PRN IV DECREASED GLUCOSE; Start 11/08/16 at 16:00 Glucagon (Glucagen) 1 mg Q15M PRN IM DECREASED GLUCOSE; Start 11/08/16 at 16:00 Glucose (Glutose) 15 gm Q15M PRN BUCCAL DECREASED GLUCOSE; Start 11/08/16 at 16 :00 Acetaminophen/ Hydrocodone Bitart ([place] (5/325)) 1 tab Q4H PRN PO SEVERE PAIN 7-10 Last administered on 11/16/16 14:59; Admin Dose 1 TAB; Start 11/08/16 at 21:00 Morphine Sulfate (morphine) 2 mg Q4H PRN IV PAIN LEVEL 7-10 Last administered on 11/18/16 18:11; Admin Dose 2 MG; Start 11/09/16 at 11:00 Collagenase (Santyl) 1 applic DAILY TOP Last administered on 11/18/16 09:23; Admin Dose 1 APPLIC; Start 11/09/16 at 16:00 Lorazepam (Ativan) 1 mg Q6H PRN IV AGITATION/ANXIETY Last administered on 02:37; Admin Dose 1 MG; Start 11/09/16 at 20:30 Pantoprazole (Protonix Iv) 40 mg BID@06,18 IV Last administered on 11/18/16 18: 10; Admin Dose 40 MG; Start 11/10/16 at 06:00 Sodium Phosphate (Neutra-Phos) 250 mg BID GTB Last administered on 11/18/16 09: 22; Admin Dose 250 MG; Start 11/10/16 at 09:00 Mupirocin (Bactroban) 1 applic BID TOP Last administered on 11/18/16 09:22; Admin Dose 1 APPLIC; Start 11/10/16 at 12:30 Insulin Aspart (Novolog Insulin Pen) NOVOLOG *MILD* ALGORI... Q6 SC Last administered on 11/18/16 18:15; Admin Dose 1 UNIT; Start 11/11/16 at 00:00 Calcium/Vitamin D (Oyster Shell/ Vit-D (500/200)) 1 tab DAILY GTB Last administered on 11/18/16 09:21; Admin Dose 1 TAB; Start 11/12/16 at 11:00 Prochlorperazine (Compazine) 5 mg Q6H PRN GTB NAUSEA AND/OR VOMITING; Start 11/17/16 at 17:30 SADIA HAMMER M.D. 11/19/16 1210: Assessment/Plan Assessment/Plan Chief Complaint/Hosp Course Jaquelin: I discussed the management with SARAN Crabtree and agree with above. Problems: Exam/Review of Systems Results Result Diagram: 11/18/16 0600 11/18/16 0600 JERICHO CRABTREE NP Nov 18, 2016 19:44 SADIA HAMMER M.D. Nov 19, 2016 12:10
[2016-11-18] MEDS: ATORVASTATIN 40 MG TAB GTB SCH (22:06)
[2016-11-19] VITALS (37 sets, daily range): BP systolic 78–119; BP diastolic 40–70; PULSE 78–103; RESP 14–27
[2016-11-19] MEDS: INSULIN ASPART [NOVOLOG] 3 ML PEN SC SCH ×4 (00:06→17:45)
[2016-11-19] MEDS: morphine 2 MG INJ IV PRN ×3 (03:46→19:00)
[2016-11-19] MEDS: PANTOPRAZOLE 40 MG INJ IV SCH ×2 (05:55→17:41)
[2016-11-19 07:09] LABS: ADD SCAN DIFF NO
[2016-11-19 07:17] LABS: BASOPHIL # 0.1 10^3/ul (0.0-0.1); BASOPHILS % 0.5 % (0.0-2.0); EOSINOPHILS # 0.2 10^3/ul (0.0-0.5); EOSINOPHILS % 1.5 % (0.0-7.0); HEMATOCRIT 31.8 % (42.0-52.0); HEMOGLOBIN 9.9 g/dl (14.0-18.0); LYMPHOCYTES # 0.8 10^3/ul (0.8-2.9); MEAN CORPUSCULAR HGB CONC 31.1 g/dl (32.0-37.0); MEAN CORPUSCULAR VOLUME 99.7 fl (82.0-101.0); MEAN PLATELET VOLUME 9.5 fl (7.4-10.4); MONOCYTE # 0.8 10^3/ul (0.3-0.9); MONOCYTES % 8.1 % (0.0-11.0); NEUTROPHIL # 8.4 10^3/ul (1.6-7.5); NEUTROPHILS % 81.2 % (39.0-77.0); PLATELET COUNT 182 10^3/UL (140-415); RED BLOOD COUNT 3.19 10^6/ul (4.70-6.10); RED CELL DISTRIBUTION WIDTH 18.3 % (11.5-14.5); WHITE BLOOD COUNT 10.3 10^3/ul (4.8-10.8)
[2016-11-19 07:23] LABS: POTASSIUM 4.5 mmol/L (3.5-5.1)
[2016-11-19 07:26] LABS: CREATININE 3.12 mg/dl (0.61-1.24)
[2016-11-19 07:27] LABS: CALCIUM 7.8 mg/dl (8.4-10.2)
[2016-11-19] MEDS: SILDENAFIL 20 MG TAB GTB SCH ×2 (09:00→21:05)
--- NOTE | 2016-11-19 09:54 | PN ---
DATE: 11/19/2016 SUBJECTIVE: The patient is stable, no acute events overnight. No fevers, chills, nausea, vomiting. No shortness of breath. OBJECTIVE: VITAL SIGNS: Blood pressure is now 104/54, respirations 24, pulse 97, temperature 98.3. HEENT: Head is normocephalic. NECK: Supple. HEART: Regular rate. LUNGS: Show diminished breath sounds at the base. ABDOMEN: Soft, nontender to palpation. No rebound or guarding. EXTREMITIES: Negative for clubbing, cyanosis. Trace edema on the right leg. Left BKA is noted. NEUROLOGIC: No change in exam. MUSCULOSKELETAL: No joint effusions. DERMATOLOGIC: No rashes. LABORATORY DATA: Shows sodium 139, potassium 4.5, chloride 106, BUN 54, creatinine 3.12. White cou nt 10.3, hemoglobin 9.9, hematocrit 31.8, platelet count is 182. ASSESSMENT AND PLAN: 1. End-stage renal disease. The patient is on dialysis on Saturday, Saturday, Saturday. Plan for param lysis today for 3 hours, 2K bath, calcium 2.5. 2. Anemia of chronic kidney disease. Continue to monitor hemoglobin and hematocrit levels. Contin ue Epogen. 3. Mineral bone disorder. Continue to monitor calcium and phosphorus levels. Continue phosphorus supplementation at this time. 4. Volume overload, clinically improving. Continue ultrafiltration dialysis. 5. Sepsis secondary to pneumonia. Continue current antibiotic regimen. 6. Ventilator dependent respiratory failure. Vent settings reviewed. Continue to monitor. Follow up with pulmonary. 7. Dysphagia. Status post percutaneous endoscopic gastrostomy. Continue tube feeding. 8. Coronary artery disease. Continue current medical management. 9. Diabetes. Continue Accu-Cheks and sliding scale. 10. Status post gastrointestinal bleed. The patient was seen by GI. Status post esophagogastroduo denoscopy. Continue proton pump inhibitor. 11. Depression, anxiety disorder. Continue current treatment plan. 12. Hypertension. The patient with episodes of hypotension. Will monitor closely. 13. Congestive heart failure. Continue current medical management. Continue ultrafiltration with dialysis. 14. Ascites, likely secondary to volume overload, cardiac, status post thoracentesis. Dictated By: SARAHI EMERSON DO NR/OLESYA Conf#: [id number] DID#: [id number]
[2016-11-19] MEDS: LIDOCAINE 5% PATCH TD SCH (09:55)
[2016-11-19] MEDS: NEUTRA-PHOS 250 MG PACKET GTB SCH ×2 (09:56→21:04)
[2016-11-19] MEDS: ASCORBIC ACID 500 MG TAB GTB SCH (09:56)
[2016-11-19] MEDS: VITAMIN B COMPLEX/VIT C CAP GTB SCH (09:56)
[2016-11-19] MEDS: CALCIUM/VITAMIN D (500/200) TAB GTB SCH (09:56)
[2016-11-19] MEDS: LACTOBACILLUS CHEW TAB GTB SCH (09:56)
[2016-11-19] MEDS: ZINC SULFATE 220 MG CAP GTB SCH (09:56)
[2016-11-19] MEDS: DULOXETINE 30 MG CAP DR GTB SCH (09:56)
[2016-11-19] MEDS: FLUTICASONE 0.05% 16 GM NAS SPRAY NASAL SCH ×2 (09:58→21:06)
[2016-11-19] MEDS: MUPIROCIN 2% 22 GM OINT TOP SCH ×2 (09:58→21:06)
[2016-11-19] MEDS: COLLAGENASE 30 GM TUBE TOP SCH (09:58)
[2016-11-19] MEDS: INSULIN GLARGINE [LANtus] 3 ML PEN SC SCH (10:26)
--- NOTE | 2016-11-19 11:31 | CONS ---
Date/Time of Note Date/Time of Note DATE: 11/19/16 TIME: 11:30 Consult Date/Type/Reason Admit Date/Time Nov 08, 2016 at 10:56 Initial Consult Date 11/09/16 Type of Consultation: pulmonary Ordering Provider: GRACIE KATHLEEN Subjective Patient remains comfortable this morning no acute distress Objective Vital Signs Date Time Temp Pulse Resp B/P Pulse Ox O2 Delivery O2 Flow Rate FiO2 11/19/16 11:00 95 26 98 30 11/19/16 10:10 98.3 111/63 11/19/16 06:00 Mechanical Ventilator Intake and Output 11/18/16 11/18/16 11/19/16 15:00 23:00 07:00 Intake Total 640 ml 640 ml Balance 640 ml 640 ml Exam PHYSICAL EXAMINATION GENERAL: Elderly gentleman, intubated on mechanical ventilation, appears comfortable VITAL SIGNS: see below. HEENT: Pupils equal, round, and reactive to light. Tracheostomy site clean and intact. CARDIAC: S1, S2, 1/6 systolic murmur CHEST: Diminished air entry bilaterally. ABDOMEN: Mildly distended. No bowel sounds. EXTREMITIES: No cyanosis, clubbing edema +1 NEUROLOGIC: Generalized weakness Results/Medications Result Diagram: 11/19/16 0635 11/19/16 0636 Results 24 hrs Laboratory Tests Test 11/18/16 11:53 11/18/16 18:09 11/18/16 23:58 11/19/16 05:55 Bedside Glucose 177 168 153 162 Test 11/19/16 06:35 11/19/16 06:36 White Blood Count 10.3 Red Blood Count 3.19 L Hemoglobin 9.9 L Hematocrit 31.8 L Mean Corpuscular Volume 99.7 Mean Corpuscular Hemoglobin 31.0 Mean Corpuscular Hemoglobin Concent 31.1 L Red Cell Distribution Width 18.3 H Platelet Count 182 Mean Platelet Volume 9.5 Neutrophils % 81.2 H Lymphocytes % 8.0 L Monocytes % 8.1 Eosinophils % 1.5 Basophils % 0.5 Nucleated Red Blood Cells % 0.0 Neutrophils # 8.4 H Lymphocytes # 0.8 Monocytes # 0.8 Eosinophils # 0.2 Basophils # 0.1 Nucleated Red Blood Cells # 0.0 Sodium Level 139 Potassium Level 4.5 Chloride Level 106 Carbon Dioxide Level 26 Anion Gap 12 Blood Urea Nitrogen 54 H Creatinine 3.12 H Glucose Level 168 Calcium Level 7.8 L Medications Current Medications Lidocaine (Lidoderm) 1 patch DAILY TD Last administered on 11/19/16 09:55; Admin Dose 1 PATCH; Start 11/08/16 at 15:30 Acetaminophen (Tylenol Liquid) 325 mg Q4H PRN GTB MILD PAIN LEVEL 1-3 Last administered on 11/17/16 02:37; Admin Dose 325 MG; Start 11/08/16 at 15:30 Acetaminophen (Tylenol Liquid) 650 mg Q4H PRN GTB MODERATE PAIN LEVEL 4-6 Last administered on 11/18/16 23:57; Admin Dose 650 MG; Start 11/08/16 at 15:30 Ascorbic Acid (Vitamin C) 500 mg DAILY GTB Last administered on 11/19/16 09:56 ; Admin Dose 500 MG; Start 11/09/16 at 09:00 Atorvastatin Calcium (Lipitor) 40 mg QHS GTB Last administered on 11/18/16 22: 06; Admin Dose 40 MG; Start 11/08/16 at 21:00 Carvedilol (Coreg) 3.125 mg BID GTB Last administered on 11/17/16 22:28; Admin Dose 3.125 MG; Start 11/08/16 at 21:00 Duloxetine HCl (Cymbalta) 30 mg DAILY GTB Last administered on 11/19/16 09:56; Admin Dose 30 MG; Start 11/09/16 at 09:00 Fluticasone Propionate (Flonase 0.05% Nasal) 1 spray BID NASAL Last administered on 11/19/16 09:58; Admin Dose 1 SPRAY; Start 11/08/16 at 21:00 Insulin Glargine (Lantus) 10 unit DAILY SC Last administered on 11/19/16 10:26 ; Admin Dose 10 UNIT; Start 11/09/16 at 09:00 Lactobacillus Acidoph/Bulgaricus (Floranex) 1 tab DAILY GTB Last administered on 11/19/16 09:56; Admin Dose 1 TAB; Start 11/09/16 at 09:00 Sildenafil Citrate (Revatio) 20 mg BID GTB Last administered on 11/18/16 22:06 ; Admin Dose 20 MG; Start 11/08/16 at 21:00 Zinc Sulfate (Zinc Sulfate) 220 mg DAILY GTB Last administered on 11/19/16 09: 56; Admin Dose 220 MG; Start 11/09/16 at 09:00 Vitamin B Complex/ Vitamin C (Berocca) 1 cap DAILY GTB Last administered on 11/19 09:56; Admin Dose 1 CAP; Start 11/09/16 at 09:00 Miscellaneous Information 1 ea NOTE XX ; Start 11/08/16 at 16:00 Glucose (Glutose) 15 gm Q15M PRN PO DECREASED GLUCOSE; Start 11/08/16 at 16:00 Glucose (Glutose) 22.5 gm Q15M PRN PO DECREASED GLUCOSE; Start 11/08/16 at 16: 00 Dextrose (D50w Syringe) 25 ml Q15M PRN IV DECREASED GLUCOSE; Start 11/08/16 at 16:00 Dextrose (D50w Syringe) 50 ml Q15M PRN IV DECREASED GLUCOSE; Start 11/08/16 at 16:00 Glucagon (Glucagen) 1 mg Q15M PRN IM DECREASED GLUCOSE; Start 11/08/16 at 16:00 Glucose (Glutose) 15 gm Q15M PRN BUCCAL DECREASED GLUCOSE; Start 11/08/16 at 16 :00 Acetaminophen/ Hydrocodone Bitart ([place] (5/325)) 1 tab Q4H PRN PO SEVERE PAIN 7-10 Last administered on 11/16/16 14:59; Admin Dose 1 TAB; Start 11/08/16 at 21:00 Morphine Sulfate (morphine) 2 mg Q4H PRN IV PAIN LEVEL 7-10 Last administered on 11/19/16 09:58; Admin Dose 2 MG; Start 11/09/16 at 11:00 Collagenase (Santyl) 1 applic DAILY TOP Last administered on 11/19/16 09:58; Admin Dose 1 APPLIC; Start 11/09/16 at 16:00 Lorazepam (Ativan) 1 mg Q6H PRN IV AGITATION/ANXIETY Last administered on 02:37; Admin Dose 1 MG; Start 11/09/16 at 20:30 Pantoprazole (Protonix Iv) 40 mg BID@06,18 IV Last administered on 11/19/16 05: 55; Admin Dose 40 MG; Start 11/10/16 at 06:00 Sodium Phosphate (Neutra-Phos) 250 mg BID GTB Last administered on 11/19/16 09: 56; Admin Dose 250 MG; Start 11/10/16 at 09:00 Mupirocin (Bactroban) 1 applic BID TOP Last administered on 11/19/16 09:58; Admin Dose 1 APPLIC; Start 11/10/16 at 12:30 Insulin Aspart (Novolog Insulin Pen) NOVOLOG *MILD* ALGORI... Q6 SC Last administered on 11/19/16 06:20; Admin Dose 1 UNIT; Start 11/11/16 at 00:00 Calcium/Vitamin D (Oyster Shell/ Vit-D (500/200)) 1 tab DAILY GTB Last administered on 11/19/16 09:56; Admin Dose 1 TAB; Start 11/12/16 at 11:00 Prochlorperazine (Compazine) 5 mg Q6H PRN GTB NAUSEA AND/OR VOMITING; Start 11/17/16 at 17:30 Assessment/Plan Chief Complaint/Hosp Course Assessment 1. Vent dependent respiratory failure 2. End-stage renal failure on hemodialysis 3. Recent urinary tract infection with sepsis 4. Anemia of chronic disease and possibly secondary to renal dysfunction 5. Dysphagia with G-tube Plan 1. Continue mechanical ventilation 2. Tube feeding as tolerated 3. Hemodialysis per nephrology 4. Antibiotics per infectious diseases 5. DVT and GI prophylaxis Disposition Consider transfer back to [facility] facility Problems: VALERIE CAMARENA MD, [facility] Nov 19, 2016 11:31
--- NOTE | 2016-11-19 12:13 | CONS ---
Date/Time of Note Date/Time of Note DATE: 11/19/16 TIME: 12:10 Assessment/Plan Assessment/Plan Chief Complaint/Hosp Course - sepsis - RLE pain - h/o GIB - ascites, s/p paracentesis on 11/14/2016; not consistent with SBP. Took empiric cefepime (11/12/16-11/17/16) and metronidazole (10/14/2016-11/17/16) - near complete collapse of RLL with LLL atelectasis, pulmonary edema - h/o severe C diff colitis in 2016 - ESRD on HD - VDRF with trach - G tube dependence - PVD - s/p L BKA - abdominal pain - Abd X-ray 11/16/16 shows no e/o obstruction - MRSA nasal colonization - DNR recommendations - ordered PRACHI of RLE to r/o DVT - will monitor Pt off systemic antibiotics management d/w Pt's RN Problems: Consultation Date/Type/Reason Admit Date/Time Nov 08, 2016 at 10:56 Initial Consult Date 11/09/16 Type of Consultation: ID Referring Provider: GRACIE KATHLEEN 24 HR Interval Summary Subjective hx not possible: pt non-verbal Detailed Summary Cardiovascular: chest pain (L sided (chronic)) Gastrointestinal: pain (chronic), No diarrhea, No nausea Genitourinary: other (HD) Musculoskeletal: other (pain of RLE) Exam/Review of Systems Vital Signs Vitals Vital Signs Date Time Temp Pulse Resp B/P Pulse Ox O2 Delivery O2 Flow Rate FiO2 11/19/16 11:00 95 26 98 30 11/19/16 10:10 98.3 111/63 11/19/16 06:00 Mechanical Ventilator Intake and Output 11/18/16 11/18/16 11/19/16 15:00 23:00 07:00 Intake Total 640 ml 640 ml Balance 640 ml 640 ml Exam Constitutional: distress, frail Psych: confusion Head: atraumatic, normocephalic Eyes: nl conjunctiva, nl lids ENMT: nl external ears & nose, nl nasal mucosa & septum Neck: other (trach) Respiratory: clear to auscultation, normal air movement Cardiovascular: nl pulses, other (no reproducible tenderness of L chest wall), regular rate and rhythm Gastrointestinal: nl liver, spleen, non-tender, other (GT), soft Extremities: edema Skin: laceration (superficial skin tears of RLE, s/p L BKA) Results Result Diagram: 11/19/16 0635 11/19/16 0636 Results 24 hrs Laboratory Tests Test 11/18/16 18:09 11/18/16 23:58 11/19/16 05:55 11/19/16 06:35 Bedside Glucose 168 153 162 White Blood Count 10.3 Red Blood Count 3.19 L Hemoglobin 9.9 L Hematocrit 31.8 L Mean Corpuscular Volume 99.7 Mean Corpuscular Hemoglobin 31.0 Mean Corpuscular Hemoglobin Concent 31.1 L Red Cell Distribution Width 18.3 H Platelet Count 182 Mean Platelet Volume 9.5 Neutrophils % 81.2 H Lymphocytes % 8.0 L Monocytes % 8.1 Eosinophils % 1.5 Basophils % 0.5 Nucleated Red Blood Cells % 0.0 Neutrophils # 8.4 H Lymphocytes # 0.8 Monocytes # 0.8 Eosinophils # 0.2 Basophils # 0.1 Nucleated Red Blood Cells # 0.0 Test 11/19/16 06:36 Sodium Level 139 Potassium Level 4.5 Chloride Level 106 Carbon Dioxide Level 26 Anion Gap 12 Blood Urea Nitrogen 54 H Creatinine 3.12 H Glucose Level 168 Calcium Level 7.8 L Medications Medications Current Medications Lidocaine (Lidoderm) 1 patch DAILY TD Last administered on 11/19/16 09:55; Admin Dose 1 PATCH; Start 11/08/16 at 15:30 Acetaminophen (Tylenol Liquid) 325 mg Q4H PRN GTB MILD PAIN LEVEL 1-3 Last administered on 11/17/16 02:37; Admin Dose 325 MG; Start 11/08/16 at 15:30 Acetaminophen (Tylenol Liquid) 650 mg Q4H PRN GTB MODERATE PAIN LEVEL 4-6 Last administered on 11/18/16 23:57; Admin Dose 650 MG; Start 11/08/16 at 15:30 Ascorbic Acid (Vitamin C) 500 mg DAILY GTB Last administered on 11/19/16 09:56 ; Admin Dose 500 MG; Start 11/09/16 at 09:00 Atorvastatin Calcium (Lipitor) 40 mg QHS GTB Last administered on 11/18/16 22: 06; Admin Dose 40 MG; Start 11/08/16 at 21:00 Carvedilol (Coreg) 3.125 mg BID GTB Last administered on 11/17/16 22:28; Admin Dose 3.125 MG; Start 11/08/16 at 21:00 Duloxetine HCl (Cymbalta) 30 mg DAILY GTB Last administered on 11/19/16 09:56; Admin Dose 30 MG; Start 11/09/16 at 09:00 Fluticasone Propionate (Flonase 0.05% Nasal) 1 spray BID NASAL Last administered on 11/19/16 09:58; Admin Dose 1 SPRAY; Start 11/08/16 at 21:00 Insulin Glargine (Lantus) 10 unit DAILY SC Last administered on 11/19/16 10:26 ; Admin Dose 10 UNIT; Start 11/09/16 at 09:00 Lactobacillus Acidoph/Bulgaricus (Floranex) 1 tab DAILY GTB Last administered on 11/19/16 09:56; Admin Dose 1 TAB; Start 11/09/16 at 09:00 Sildenafil Citrate (Revatio) 20 mg BID GTB Last administered on 11/18/16 22:06 ; Admin Dose 20 MG; Start 11/08/16 at 21:00 Zinc Sulfate (Zinc Sulfate) 220 mg DAILY GTB Last administered on 11/19/16 09: 56; Admin Dose 220 MG; Start 11/09/16 at 09:00 Vitamin B Complex/ Vitamin C (Berocca) 1 cap DAILY GTB Last administered on 11/19 09:56; Admin Dose 1 CAP; Start 11/09/16 at 09:00 Miscellaneous Information 1 ea NOTE XX ; Start 11/08/16 at 16:00 Glucose (Glutose) 15 gm Q15M PRN PO DECREASED GLUCOSE; Start 11/08/16 at 16:00 Glucose (Glutose) 22.5 gm Q15M PRN PO DECREASED GLUCOSE; Start 11/08/16 at 16: 00 Dextrose (D50w Syringe) 25 ml Q15M PRN IV DECREASED GLUCOSE; Start 11/08/16 at 16:00 Dextrose (D50w Syringe) 50 ml Q15M PRN IV DECREASED GLUCOSE; Start 11/08/16 at 16:00 Glucagon (Glucagen) 1 mg Q15M PRN IM DECREASED GLUCOSE; Start 11/08/16 at 16:00 Glucose (Glutose) 15 gm Q15M PRN BUCCAL DECREASED GLUCOSE; Start 11/08/16 at 16 :00 Acetaminophen/ Hydrocodone Bitart ([place] (5/325)) 1 tab Q4H PRN PO SEVERE PAIN 7-10 Last administered on 11/16/16 14:59; Admin Dose 1 TAB; Start 11/08/16 at 21:00 Morphine Sulfate (morphine) 2 mg Q4H PRN IV PAIN LEVEL 7-10 Last administered on 11/19/16 09:58; Admin Dose 2 MG; Start 11/09/16 at 11:00 Collagenase (Santyl) 1 applic DAILY TOP Last administered on 11/19/16 09:58; Admin Dose 1 APPLIC; Start 11/09/16 at 16:00 Lorazepam (Ativan) 1 mg Q6H PRN IV AGITATION/ANXIETY Last administered on 02:37; Admin Dose 1 MG; Start 11/09/16 at 20:30 Pantoprazole (Protonix Iv) 40 mg BID@06,18 IV Last administered on 11/19/16 05: 55; Admin Dose 40 MG; Start 11/10/16 at 06:00 Sodium Phosphate (Neutra-Phos) 250 mg BID GTB Last administered on 11/19/16 09: 56; Admin Dose 250 MG; Start 11/10/16 at 09:00 Mupirocin (Bactroban) 1 applic BID TOP Last administered on 11/19/16 09:58; Admin Dose 1 APPLIC; Start 11/10/16 at 12:30 Insulin Aspart (Novolog Insulin Pen) NOVOLOG *MILD* ALGORI... Q6 SC Last administered on 11/19/16 06:20; Admin Dose 1 UNIT; Start 11/11/16 at 00:00 Calcium/Vitamin D (Oyster Shell/ Vit-D (500/200)) 1 tab DAILY GTB Last administered on 11/19/16 09:56; Admin Dose 1 TAB; Start 11/12/16 at 11:00 Prochlorperazine (Compazine) 5 mg Q6H PRN GTB NAUSEA AND/OR VOMITING; Start 11/17/16 at 17:30 SADIA LONDON M.D. Nov 19, 2016 12:13
--- NOTE | 2016-11-19 13:08 | RADRPT ---
PROCEDURE: US DVT. CLINICAL INDICATION: Right lower extremity edema. TECHNIQUE: Multiple longitudinal and transverse images of the right lower extremity veins were obt ained with mckeon scale and color Doppler imaging. 2D grayscale measurements with compression, color Doppler flow, and augmentation was performed. The calf veins were interrogated as well. COMPARISON: No prior studies are available for comparison. FINDINGS: The right common femoral, superficial femoral and popliteal veins are normally compressible througho ut. Color flow demonstrates normal filling of the vessel. Normal waveforms are visualized and ther e is normal response to augmentation. . IMPRESSION: 1. No evidence of a deep vein thrombosis involving the right lower extremity. RPTAT: [facility] Physician Shasta Date Time Electronically viewed and signed by Physician Shasta on 11/19/2016 13:07 /
--- NOTE | 2016-11-19 15:18 | PN ---
Date/Time of Note Date/Time of Note DATE: 11/19/16 TIME: 15:16 Assessment/Plan VTE Prophylaxis VTE Prophylaxis Intervention: SCD's Lines/Catheters IV [facility]ter Type [facility] [place] Urinary Cath still in place: No Assessment/Plan Chief Complaint/Hosp Course Assessment/Plan - Esophagitis per EGD. Continue Protonix Dr. Hernandez is following in gastroenterology consultation. - Anemia of chronic disease, on Epogen, continue to monitor hemoglobin and hematocrit, transfuse as needed. - Ascites, SBP ruled out, Status post paracentesis 11/14,ascitic fluid culture negative. - Systemic inflammatory response syndrome with leukocytosis, patient is followed by Dr. Benjamin deluna in infection disease consultation. - End-stage renal disease, hemodialysis dependent. Continue hemodialysis per nephrology. - Chronic respiratory failure with tracheostomy. Dr. Sahu is following in pulmonology consultation. - Coronary artery disease with history of PCI. - Diastolic congestive heart failure - Pulmonary hypertension - Peripheral vascular disease, status post left BKA. - Diabetes mellitus type 2, continue NovoLog per sliding scale. - Sacral decub present on admission. Continue current wound care. Problems: Subjective 24 Hr Interval Summary Free Text/Dictation Patient is afebrile off antibiotics, tolerates G-tube feeding well, minimal residual, no nausea vomiting. Exam/Review of Systems Vital Signs Vitals Vital Signs Date Time Temp Pulse Resp B/P Pulse Ox O2 Delivery O2 Flow Rate FiO2 11/19/16 13:10 97 22 98 30 11/19/16 12:08 98.3 119/64 11/19/16 06:00 Mechanical Ventilator Intake and Output 11/18/16 11/18/16 11/19/16 15:00 23:00 07:00 Intake Total 640 ml 640 ml Balance 640 ml 640 ml Exam GENERAL: Well-developed, well-nourished male, currently on vent support. HEENT: Head is atraumatic, normocephalic. PERRLA. NECK: Supple. Tracheostomy at the base of the neck. LUNGS: Slightly diminished at the bases. Clear in the upper lobes. HEART: Normal S1, S2. No murmurs, gallops, clicks, rubs noted. ABDOMEN: Protuberant, soft, nondistended, nontender. G-tube in place. EXTREMITIES: The patient is status post left BKA. Right lower extremity with mild edema. The patient has a left upper extremity arteriovenous fistula with palpable thrill and audible bruit. SKIN: No rash, petechiae noted. Sacral decubitus ulcer. NEUROLOGIC: The patient is awake, alert. Results Result Diagram: 11/19/16 0635 11/19/16 0636 Results 24 hrs Laboratory Tests Test 11/18/16 18:09 11/18/16 23:58 11/19/16 05:55 11/19/16 06:35 Bedside Glucose 168 153 162 White Blood Count 10.3 Red Blood Count 3.19 L Hemoglobin 9.9 L Hematocrit 31.8 L Mean Corpuscular Volume 99.7 Mean Corpuscular Hemoglobin 31.0 Mean Corpuscular Hemoglobin Concent 31.1 L Red Cell Distribution Width 18.3 H Platelet Count 182 Mean Platelet Volume 9.5 Neutrophils % 81.2 H Lymphocytes % 8.0 L Monocytes % 8.1 Eosinophils % 1.5 Basophils % 0.5 Nucleated Red Blood Cells % 0.0 Neutrophils # 8.4 H Lymphocytes # 0.8 Monocytes # 0.8 Eosinophils # 0.2 Basophils # 0.1 Nucleated Red Blood Cells # 0.0 Test 11/19/16 06:36 11/19/16 12:23 Sodium Level 139 Potassium Level 4.5 Chloride Level 106 Carbon Dioxide Level 26 Anion Gap 12 Blood Urea Nitrogen 54 H Creatinine 3.12 H Glucose Level 168 Calcium Level 7.8 L Bedside Glucose 183 Medications Medications Current Medications Lidocaine (Lidoderm) 1 patch DAILY TD Last administered on 11/19/16 09:55; Admin Dose 1 PATCH; Start 11/08/16 at 15:30 Acetaminophen (Tylenol Liquid) 325 mg Q4H PRN GTB MILD PAIN LEVEL 1-3 Last administered on 11/17/16 02:37; Admin Dose 325 MG; Start 11/08/16 at 15:30 Acetaminophen (Tylenol Liquid) 650 mg Q4H PRN GTB MODERATE PAIN LEVEL 4-6 Last administered on 11/18/16 23:57; Admin Dose 650 MG; Start 11/08/16 at 15:30 Ascorbic Acid (Vitamin C) 500 mg DAILY GTB Last administered on 11/19/16 09:56 ; Admin Dose 500 MG; Start 11/09/16 at 09:00 Atorvastatin Calcium (Lipitor) 40 mg QHS GTB Last administered on 11/18/16 22: 06; Admin Dose 40 MG; Start 11/08/16 at 21:00 Carvedilol (Coreg) 3.125 mg BID GTB Last administered on 11/17/16 22:28; Admin Dose 3.125 MG; Start 11/08/16 at 21:00 Duloxetine HCl (Cymbalta) 30 mg DAILY GTB Last administered on 11/19/16 09:56; Admin Dose 30 MG; Start 11/09/16 at 09:00 Fluticasone Propionate (Flonase 0.05% Nasal) 1 spray BID NASAL Last administered on 11/19/16 09:58; Admin Dose 1 SPRAY; Start 11/08/16 at 21:00 Insulin Glargine (Lantus) 10 unit DAILY SC Last administered on 11/19/16 10:26 ; Admin Dose 10 UNIT; Start 11/09/16 at 09:00 Lactobacillus Acidoph/Bulgaricus (Floranex) 1 tab DAILY GTB Last administered on 11/19/16 09:56; Admin Dose 1 TAB; Start 11/09/16 at 09:00 Sildenafil Citrate (Revatio) 20 mg BID GTB Last administered on 11/18/16 22:06 ; Admin Dose 20 MG; Start 11/08/16 at 21:00 Zinc Sulfate (Zinc Sulfate) 220 mg DAILY GTB Last administered on 11/19/16 09: 56; Admin Dose 220 MG; Start 11/09/16 at 09:00 Vitamin B Complex/ Vitamin C (Berocca) 1 cap DAILY GTB Last administered on 11/19 09:56; Admin Dose 1 CAP; Start 11/09/16 at 09:00 Miscellaneous Information 1 ea NOTE XX ; Start 11/08/16 at 16:00 Glucose (Glutose) 15 gm Q15M PRN PO DECREASED GLUCOSE; Start 11/08/16 at 16:00 Glucose (Glutose) 22.5 gm Q15M PRN PO DECREASED GLUCOSE; Start 11/08/16 at 16: 00 Dextrose (D50w Syringe) 25 ml Q15M PRN IV DECREASED GLUCOSE; Start 11/08/16 at 16:00 Dextrose (D50w Syringe) 50 ml Q15M PRN IV DECREASED GLUCOSE; Start 11/08/16 at 16:00 Glucagon (Glucagen) 1 mg Q15M PRN IM DECREASED GLUCOSE; Start 11/08/16 at 16:00 Glucose (Glutose) 15 gm Q15M PRN BUCCAL DECREASED GLUCOSE; Start 11/08/16 at 16 :00 Acetaminophen/ Hydrocodone Bitart ([place] (5/325)) 1 tab Q4H PRN PO SEVERE PAIN 7-10 Last administered on 11/16/16 14:59; Admin Dose 1 TAB; Start 11/08/16 at 21:00 Morphine Sulfate (morphine) 2 mg Q4H PRN IV PAIN LEVEL 7-10 Last administered on 11/19/16 09:58; Admin Dose 2 MG; Start 11/09/16 at 11:00 Collagenase (Santyl) 1 applic DAILY TOP Last administered on 11/19/16 09:58; Admin Dose 1 APPLIC; Start 11/09/16 at 16:00 Lorazepam (Ativan) 1 mg Q6H PRN IV AGITATION/ANXIETY Last administered on 02:37; Admin Dose 1 MG; Start 11/09/16 at 20:30 Pantoprazole (Protonix Iv) 40 mg BID@06,18 IV Last administered on 11/19/16 05: 55; Admin Dose 40 MG; Start 11/10/16 at 06:00 Sodium Phosphate (Neutra-Phos) 250 mg BID GTB Last administered on 11/19/16 09: 56; Admin Dose 250 MG; Start 11/10/16 at 09:00 Mupirocin (Bactroban) 1 applic BID TOP Last administered on 11/19/16 09:58; Admin Dose 1 APPLIC; Start 11/10/16 at 12:30 Insulin Aspart (Novolog Insulin Pen) NOVOLOG *MILD* ALGORI... Q6 SC Last administered on 11/19/16 12:36; Admin Dose 2 UNIT; Start 11/11/16 at 00:00 Calcium/Vitamin D (Oyster Shell/ Vit-D (500/200)) 1 tab DAILY GTB Last administered on 11/19/16 09:56; Admin Dose 1 TAB; Start 11/12/16 at 11:00 Prochlorperazine (Compazine) 5 mg Q6H PRN GTB NAUSEA AND/OR VOMITING; Start 11/17/16 at 17:30 MARY DOMINGUEZ Nov 19, 2016 15:18
--- NOTE | 2016-11-19 16:49 | CONS ---
Date/Time of Note Date/Time of Note DATE: 11/19/16 TIME: 16:48 Assessment/Plan Assessment/Plan Additional Assessment/Plan Additional Assessment/Plan Paroxysmal atrial tachycardia Possible GI bleed Respiratory failure status post tracheostomy Diastolic congestive heart failure End-stage renal disease on hemodialysis CAD with history of PCI Diabetes Peripheral arterial disease with history of amputation Pulmonary hypertension Hypotension, improved -Blood pressure trend overall stable. No significant arrhythmias on telemetry. No new cardiac orders at the current time. Consultation Date/Type/Reason Admit Date/Time Nov 08, 2016 at 10:56 Initial Consult Date 11/09/16 Type of Consultation: cv Referring Provider: GRACIE KATHLEEN 24 HR Interval Summary Free Text/Dictation Patient seen and examined. No shortness of breath or chest pain Exam/Review of Systems Vital Signs Vitals Vital Signs Date Time Temp Pulse Resp B/P Pulse Ox O2 Delivery O2 Flow Rate FiO2 11/19/16 16:43 103 11/19/16 16:08 98.3 16 111/70 99 11/19/16 15:15 30 11/19/16 14:00 Mechanical Ventilator Intake and Output 11/18/16 11/18/16 11/19/16 15:00 23:00 07:00 Intake Total 640 ml 640 ml Balance 640 ml 640 ml Exam Awake, following commands, no apparent distress Head: normocephalic Neck: other (Tracheostomy) Respiratory: other (Coarse breath sounds bilaterally, no wheezing) Cardiovascular: other (S1-S2 heard), regular rate and rhythm Gastrointestinal: bowel sounds, soft Extremities: edema, other (No cyanosis) Results Result Diagram: 11/19/16 0635 11/19/16 0636 Results 24 hrs Laboratory Tests Test 11/18/16 18:09 11/18/16 23:58 11/19/16 05:55 11/19/16 06:35 Bedside Glucose 168 153 162 White Blood Count 10.3 Red Blood Count 3.19 L Hemoglobin 9.9 L Hematocrit 31.8 L Mean Corpuscular Volume 99.7 Mean Corpuscular Hemoglobin 31.0 Mean Corpuscular Hemoglobin Concent 31.1 L Red Cell Distribution Width 18.3 H Platelet Count 182 Mean Platelet Volume 9.5 Neutrophils % 81.2 H Lymphocytes % 8.0 L Monocytes % 8.1 Eosinophils % 1.5 Basophils % 0.5 Nucleated Red Blood Cells % 0.0 Neutrophils # 8.4 H Lymphocytes # 0.8 Monocytes # 0.8 Eosinophils # 0.2 Basophils # 0.1 Nucleated Red Blood Cells # 0.0 Test 11/19/16 06:36 11/19/16 12:23 Sodium Level 139 Potassium Level 4.5 Chloride Level 106 Carbon Dioxide Level 26 Anion Gap 12 Blood Urea Nitrogen 54 H Creatinine 3.12 H Glucose Level 168 Calcium Level 7.8 L Bedside Glucose 183 Medications Medications Current Medications Lidocaine (Lidoderm) 1 patch DAILY TD Last administered on 11/19/16 09:55; Admin Dose 1 PATCH; Start 11/08/16 at 15:30 Acetaminophen (Tylenol Liquid) 325 mg Q4H PRN GTB MILD PAIN LEVEL 1-3 Last administered on 11/17/16 02:37; Admin Dose 325 MG; Start 11/08/16 at 15:30 Acetaminophen (Tylenol Liquid) 650 mg Q4H PRN GTB MODERATE PAIN LEVEL 4-6 Last administered on 11/18/16 23:57; Admin Dose 650 MG; Start 11/08/16 at 15:30 Ascorbic Acid (Vitamin C) 500 mg DAILY GTB Last administered on 11/19/16 09:56 ; Admin Dose 500 MG; Start 11/09/16 at 09:00 Atorvastatin Calcium (Lipitor) 40 mg QHS GTB Last administered on 11/18/16 22: 06; Admin Dose 40 MG; Start 11/08/16 at 21:00 Carvedilol (Coreg) 3.125 mg BID GTB Last administered on 11/17/16 22:28; Admin Dose 3.125 MG; Start 11/08/16 at 21:00 Duloxetine HCl (Cymbalta) 30 mg DAILY GTB Last administered on 11/19/16 09:56; Admin Dose 30 MG; Start 11/09/16 at 09:00 Fluticasone Propionate (Flonase 0.05% Nasal) 1 spray BID NASAL Last administered on 11/19/16 09:58; Admin Dose 1 SPRAY; Start 11/08/16 at 21:00 Insulin Glargine (Lantus) 10 unit DAILY SC Last administered on 11/19/16 10:26 ; Admin Dose 10 UNIT; Start 11/09/16 at 09:00 Lactobacillus Acidoph/Bulgaricus (Floranex) 1 tab DAILY GTB Last administered on 11/19/16 09:56; Admin Dose 1 TAB; Start 11/09/16 at 09:00 Sildenafil Citrate (Revatio) 20 mg BID GTB Last administered on 11/18/16 22:06 ; Admin Dose 20 MG; Start 11/08/16 at 21:00 Zinc Sulfate (Zinc Sulfate) 220 mg DAILY GTB Last administered on 11/19/16 09: 56; Admin Dose 220 MG; Start 11/09/16 at 09:00 Vitamin B Complex/ Vitamin C (Berocca) 1 cap DAILY GTB Last administered on 11/19 09:56; Admin Dose 1 CAP; Start 11/09/16 at 09:00 Miscellaneous Information 1 ea NOTE XX ; Start 11/08/16 at 16:00 Glucose (Glutose) 15 gm Q15M PRN PO DECREASED GLUCOSE; Start 11/08/16 at 16:00 Glucose (Glutose) 22.5 gm Q15M PRN PO DECREASED GLUCOSE; Start 11/08/16 at 16: 00 Dextrose (D50w Syringe) 25 ml Q15M PRN IV DECREASED GLUCOSE; Start 11/08/16 at 16:00 Dextrose (D50w Syringe) 50 ml Q15M PRN IV DECREASED GLUCOSE; Start 11/08/16 at 16:00 Glucagon (Glucagen) 1 mg Q15M PRN IM DECREASED GLUCOSE; Start 11/08/16 at 16:00 Glucose (Glutose) 15 gm Q15M PRN BUCCAL DECREASED GLUCOSE; Start 11/08/16 at 16 :00 Acetaminophen/ Hydrocodone Bitart ([place] (5/325)) 1 tab Q4H PRN PO SEVERE PAIN 7-10 Last administered on 11/16/16 14:59; Admin Dose 1 TAB; Start 11/08/16 at 21:00 Morphine Sulfate (morphine) 2 mg Q4H PRN IV PAIN LEVEL 7-10 Last administered on 11/19/16 09:58; Admin Dose 2 MG; Start 11/09/16 at 11:00 Collagenase (Santyl) 1 applic DAILY TOP Last administered on 11/19/16 09:58; Admin Dose 1 APPLIC; Start 11/09/16 at 16:00 Lorazepam (Ativan) 1 mg Q6H PRN IV AGITATION/ANXIETY Last administered on 02:37; Admin Dose 1 MG; Start 11/09/16 at 20:30 Pantoprazole (Protonix Iv) 40 mg BID@,18 IV Last administered on 11/19/16 05: 55; Admin Dose 40 MG; Start 11/10/16 at 06:00 Sodium Phosphate (Neutra-Phos) 250 mg BID GTB Last administered on 11/19/16 09: 56; Admin Dose 250 MG; Start 11/10/16 at 09:00 Mupirocin (Bactroban) 1 applic BID TOP Last administered on 11/19/16 09:58; Admin Dose 1 APPLIC; Start 11/10/16 at 12:30 Insulin Aspart (Novolog Insulin Pen) NOVOLOG *MILD* ALGORI... Q6 SC Last administered on 11/19/16 12:36; Admin Dose 2 UNIT; Start 11/11/16 at 00:00 Calcium/Vitamin D (Oyster Shell/ Vit-D (500/200)) 1 tab DAILY GTB Last administered on 11/19/16 09:56; Admin Dose 1 TAB; Start 11/12/16 at 11:00 Prochlorperazine (Compazine) 5 mg Q6H PRN GTB NAUSEA AND/OR VOMITING; Start 11/17/16 at 17:30 Solo Leon DO Nov 19, 2016 16:49
[2016-11-19] MEDS: EPOETIN 10000 UNITS/1 ML INJ (ESRD) SC SCH (19:49)
[2016-11-19] MEDS: ATORVASTATIN 40 MG TAB GTB SCH (21:04)
[2016-11-20] VITALS (31 sets, daily range): BP systolic 84–115; BP diastolic 40–61; PULSE 77–98; RESP 14–90
[2016-11-20] MEDS: INSULIN ASPART [NOVOLOG] 3 ML PEN SC SCH ×4 (05:24→18:00)
[2016-11-20] MEDS: PANTOPRAZOLE 40 MG INJ IV SCH ×2 (05:25→17:13)
--- NOTE | 2016-11-20 06:15 | DS ---
DATE OF ADMISSION: 11/08/2016 DATE OF DISCHARGE: 11/19/2016 FINAL DIAGNOSES: 1. Esophagitis per esophagogastroduodenoscopy. 2. Anemia of chronic disease. 3. Abdominal pain, spontaneous bacterial peritonitis ruled out. 4. Systemic inflammatory response syndrome with leukocytosis, resolved. 5. End-stage renal disease, hemodialysis dependent. 6. Chronic respiratory failure with tracheostomy. 7. Coronary artery disease with history of percutaneous coronary intervention. 8. Diastolic congestive heart failure. 9. Pulmonary hypertension. 10. Peripheral vascular disease, status post left below-knee amputation. 11. Diabetes mellitus type 2. 12. Sacral decubitus present on admission. BRIEF HISTORY: The patient is a 66-year-old gentleman known to me from previous admission. The pat ient is with end-stage renal disease, hemodialysis dependent, ventilator-dependent respiratory failu re and dysphagia with G-tube. The patient was brought by ambulance from residential facility fo r evaluation for possible gastrointestinal bleed. Per report from longterm, the patient appeare d to have coffee-ground fluid from the G-tube. Also the patient had a cough which got progressively worse. The patient was admitted for further evaluation and management. HOSPITAL COURSE: The patient was evaluated by Dr. Hernandez in gastroenterology consultation. The pat ient was noted to have ascites and patient underwent paracentesis on 11/14/2016. The patient was als o evaluated and followed by Dr. [facility] in infectious disease consultation. The patient was placed on broad spectrum antibiotics for possible spontaneous bacterial peritonitis. The patient al so had a blood culture collected which was all negative. Ascitic fluid culture was not indicative o f infection. The patient, however, complained of left lower quadrant pain and was evaluated by Dr. Hernandez and patient underwent EGD with notion of esophagitis. The patient was continued on Protonix. The patient was also evaluated by Dr. Andrews[facility] in pulmonology consultation. Continue on vent support. The patient was evaluated by Dr. Valiente in nephrology consultation and continued on hemo dialysis. The patient was also evaluated by Dr. Leon in cardiology consultation. Blood pressure medications were optimized. The patient was also continued on Coreg for congestive heart failure. The patient is continued on Epogen for anemia of chronic disease. Hemoglobin and hematocrit were cl osely monitored. 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 The patient also complains of right lower extremity edema. Ultrasound was negative for any deep donovan ous thrombosis of the right lower extremity. The patient also underwent a CT of the abdomen and pel vis on admission due to complaints of abdominal pain with no acute findings. The patient tolerated G-tube feeding well with minimal residuals and no complaints of nausea, vomiting, per nursing staff. The patient's condition improved and the patient will be discharged to residential facility. CONDITION ON DISCHARGE: Hemodynamically stable. ACTIVITY: As patient tolerates. DISCHARGE DIET: Continue current G-tube feeding. DISCHARGE MEDICATIONS: 1. Tylenol p.r.n. for fever or pain. 2. DuoNeb nebulizers q.12h. 3. Ascorbic acid. 4. Lipitor. 5. Calcium with vitamin D. 6. Coreg 3.125 mg per G-tube b.i.d. 7. Santyl ointment topical. 8. Cymbalta 30 mg G-tube daily. 9. Epogen 10,000 units subq after dialysis as scheduled. 10. Flonase 1 spray b.i.d. 11. Hypoglycemia protocol. 12. NovoLog per mild algorithm sliding scale. 13. Lantus 10 units subcu at bedtime. 14. Florinef. 15. Lidocaine patch. 16. Ativan 1 mg G-tube q.6h. p.r.n. for agitation. 17. Lansoprazole 30 mg G-tube daily. 18. Revatio 20 mg G-tube b.i.d. 19. Compazine 5 mg G-tube q.6h. p.r.n. for nausea. 20. Neutra-Phos b.i.d. 21. Vitamin B and vitamin C complex. Interdisciplinary care was established for this patient. Plan of care was discussed with Dr. Nicolas leal. Dictated By: MARY DOMINGUEZ RUG DYER for CANDIDA EMERSON MD, SR/OLESYA Conf#: [id number] DID#: [id number]
[2016-11-20 06:30] LABS: ADD SCAN DIFF NO
[2016-11-20 06:36] LABS: BASOPHILS % 0.4 % (0.0-2.0); EOSINOPHILS # 0.1 10^3/ul (0.0-0.5); EOSINOPHILS % 1.1 % (0.0-7.0); HEMATOCRIT 32.6 % (42.0-52.0); HEMOGLOBIN 10.1 g/dl (14.0-18.0); LYMPHOCYTES # 0.9 10^3/ul (0.8-2.9); LYMPHOCYTES % 8.8 % (15.0-51.0); MEAN CORPUSCULAR HEMOGLOBIN 30.6 pg (29.0-33.0); MEAN CORPUSCULAR VOLUME 98.8 fl (82.0-101.0); MEAN PLATELET VOLUME 10.2 fl (7.4-10.4); MONOCYTES % 9.3 % (0.0-11.0); NEUTROPHIL # 8.4 10^3/ul (1.6-7.5); NEUTROPHILS % 79.8 % (39.0-77.0); PLATELET COUNT 129 10^3/UL (140-415); RED CELL DISTRIBUTION WIDTH 18.6 % (11.5-14.5); WHITE BLOOD COUNT 10.5 10^3/ul (4.8-10.8)
[2016-11-20 08:57] LABS: POTASSIUM 5.4 mmol/L (3.5-5.1)
[2016-11-20 09:00] LABS: CREATININE 2.69 mg/dl (0.61-1.24)
[2016-11-20] MEDS: SILDENAFIL 20 MG TAB GTB SCH ×2 (09:00→21:00)
[2016-11-20 09:01] LABS: CALCIUM 7.5 mg/dl (8.4-10.2)
[2016-11-20] MEDS: ZINC SULFATE 220 MG CAP GTB SCH (09:04)
[2016-11-20] MEDS: CALCIUM/VITAMIN D (500/200) TAB GTB SCH (09:04)
[2016-11-20] MEDS: ASCORBIC ACID 500 MG TAB GTB SCH (09:04)
[2016-11-20] MEDS: DULOXETINE 30 MG CAP DR GTB SCH (09:04)
[2016-11-20] MEDS: LACTOBACILLUS CHEW TAB GTB SCH (09:05)
[2016-11-20] MEDS: VITAMIN B COMPLEX/VIT C CAP GTB SCH (09:05)
[2016-11-20] MEDS: NEUTRA-PHOS 250 MG PACKET GTB SCH ×2 (09:05→21:09)
[2016-11-20] MEDS: LIDOCAINE 5% PATCH TD SCH (09:06)
[2016-11-20] MEDS: FLUTICASONE 0.05% 16 GM NAS SPRAY NASAL SCH ×2 (09:06→21:09)
[2016-11-20] MEDS: COLLAGENASE 30 GM TUBE TOP SCH (09:07)
[2016-11-20] MEDS: MUPIROCIN 2% 22 GM OINT TOP SCH (09:07)
--- NOTE | 2016-11-20 09:13 | PN ---
DATE: 11/20/2016 SUBJECTIVE: The patient had hemodialysis yesterday with 1 liter removed, tolerated well. No other acute events noted overnight. OBJECTIVE: VITAL SIGNS: Blood pressure is 84/52, respirations 14, pulse 98, temperature 98.4. HEENT: Head is normocephalic. NECK: Supple. HEART: Regular rate. LUNGS: Show diminished breath sounds at the base. ABDOMEN: Soft, nontender to palpation, without rebound or guarding. EXTREMITIES: Negative for clubbing, cyanosis. No edema. DERMATOLOGIC: No rashes. MUSCULOSKELETAL: No joint effusions. NEUROLOGIC: No change in exam. MEDICATIONS: The patient's medications have been reviewed. LABORATORY DATA: Has been reviewed. The patient has a white count of 10.5, hemoglobin 10.1, hemato crit 32.6, platelet count 129,000. ASSESSMENT AND PLAN: 1. End-stage renal disease. The patient had hemodialysis yesterday, tolerated well. Plan for dial ysis again tomorrow for 3 hours, 3K bath, calcium 2.5. 2. Anemia of chronic disease. Continue to monitor hemoglobin and hematocrit closely. 3. Mineral bone disorder. Monitor calcium and phosphorus levels. 4. Volume overload, clinically improving. Continue ultrafiltration dialysis. 5. Sepsis secondary to pneumonia. The patient is completing antibiotic course. 6. Ventilator-dependent respiratory failure. Vent settings have been reviewed. Continue to monito r. Follow up with Pulmonary. 7. Dysphagia, status post percutaneous endoscopic gastrostomy. Continue tube feedings. 8. Coronary artery disease. Continue medical management. 9. Diabetes. Continue Accu-Cheks and sliding scale. 10. Status post gastrointestinal bleed. Continue to monitor hemoglobin and hematocrit levels. Con tinue proton pump inhibitor. 11. Depression and anxiety disorder. Continue treatment plan. 12. Hypotension. Continue to monitor closely. The patient is currently clinically stable. 13. History of congestive heart failure. Continue current medical management. 14. Ascites, status post paracentesis. Dictated By: SARAHI RINALDI/OLESYA Conf#: [id number] DID#: [id number]
[2016-11-20] MEDS: INSULIN GLARGINE [LANtus] 3 ML PEN SC SCH (09:58)
--- NOTE | 2016-11-20 10:01 | CONS ---
Date/Time of Note Date/Time of Note DATE: 11/20/16 TIME: 09:58 Consult Date/Type/Reason Admit Date/Time Nov 08, 2016 at 10:56 Initial Consult Date 11/09/16 Type of Consultation: ID Ordering Provider: GRACIE KATHLEEN Subjective still has L side chest pain, denies diarrhea Objective Vital Signs Date Time Temp Pulse Resp B/P Pulse Ox O2 Delivery O2 Flow Rate FiO2 11/20/16 09:02 100/55 11/20/16 08:58 77 11/20/16 07:41 98.4 14 98 11/20/16 07:35 30 11/20/16 06:00 Mechanical Ventilator Intake and Output 11/19/16 11/19/16 11/20/16 15:00 23:00 07:00 Intake Total 910 ml 520 ml Output Total 1500 ml Balance -590 ml 520 ml Exam NAD OP clear lungs CTA b/l RRR abdomen is soft non-distended, GT in place. Pt did not localize the pain as I examined him s/pL BKA Results/Medications Result Diagram: 11/20/16 0535 11/20/16 0828 Results 24 hrs Laboratory Tests Test 11/19/16 12:23 11/19/16 17:36 11/19/16 21:03 11/20/16 05:23 Bedside Glucose 183 152 133 138 Test 11/20/16 05:35 11/20/16 08:28 11/20/16 09:01 White Blood Count 10.5 Red Blood Count 3.30 L Hemoglobin 10.1 L Hematocrit 32.6 L Mean Corpuscular Volume 98.8 Mean Corpuscular Hemoglobin 30.6 Mean Corpuscular Hemoglobin Concent 31.0 L Red Cell Distribution Width 18.6 H Platelet Count 129 #L Mean Platelet Volume 10.2 Neutrophils % 79.8 H Lymphocytes % 8.8 L Monocytes % 9.3 Eosinophils % 1.1 Basophils % 0.4 Nucleated Red Blood Cells % 0.0 Neutrophils # 8.4 H Lymphocytes # 0.9 Monocytes # 1.0 H Eosinophils # 0.1 Basophils # 0.0 Nucleated Red Blood Cells # 0.0 Sodium Level 138 Potassium Level 5.4 H Chloride Level 102 Carbon Dioxide Level 26 Anion Gap 15 Blood Urea Nitrogen 48 H Creatinine 2.69 H Glucose Level 159 Calcium Level 7.5 L Bedside Glucose 172 Medications Current Medications Lidocaine (Lidoderm) 1 patch DAILY TD Last administered on 11/19/16 09:55; Admin Dose 1 PATCH; Start 11/08/16 at 15:30 Acetaminophen (Tylenol Liquid) 325 mg Q4H PRN GTB MILD PAIN LEVEL 1-3 Last administered on 11/17/16 02:37; Admin Dose 325 MG; Start 11/08/16 at 15:30 Acetaminophen (Tylenol Liquid) 650 mg Q4H PRN GTB MODERATE PAIN LEVEL 4-6 Last administered on 11/18/16 23:57; Admin Dose 650 MG; Start 11/08/16 at 15:30 Ascorbic Acid (Vitamin C) 500 mg DAILY GTB Last administered on 11/19/16 09:56 ; Admin Dose 500 MG; Start 11/09/16 at 09:00 Atorvastatin Calcium (Lipitor) 40 mg QHS GTB Last administered on 11/19/16 21: 04; Admin Dose 40 MG; Start 11/08/16 at 21:00 Carvedilol (Coreg) 3.125 mg BID GTB Last administered on 11/17/16 22:28; Admin Dose 3.125 MG; Start 11/08/16 at 21:00 Duloxetine HCl (Cymbalta) 30 mg DAILY GTB Last administered on 11/19/16 09:56; Admin Dose 30 MG; Start 11/09/16 at 09:00 Fluticasone Propionate (Flonase 0.05% Nasal) 1 spray BID NASAL Last administered on 11/19/16 21:06; Admin Dose 1 SPRAY; Start 11/08/16 at 21:00 Insulin Glargine (Lantus) 10 unit DAILY SC Last administered on 11/19/16 10:26 ; Admin Dose 10 UNIT; Start 11/09/16 at 09:00 Lactobacillus Acidoph/Bulgaricus (Floranex) 1 tab DAILY GTB Last administered on 11/19/16 09:56; Admin Dose 1 TAB; Start 11/09/16 at 09:00 Sildenafil Citrate (Revatio) 20 mg BID GTB Last administered on 11/19/16 21:05 ; Admin Dose 20 MG; Start 11/08/16 at 21:00 Zinc Sulfate (Zinc Sulfate) 220 mg DAILY GTB Last administered on 11/19/16 09: 56; Admin Dose 220 MG; Start 11/09/16 at 09:00 Vitamin B Complex/ Vitamin C (Berocca) 1 cap DAILY GTB Last administered on 11/19 09:56; Admin Dose 1 CAP; Start 11/09/16 at 09:00 Miscellaneous Information 1 ea NOTE XX ; Start 11/08/16 at 16:00 Glucose (Glutose) 15 gm Q15M PRN PO DECREASED GLUCOSE; Start 11/08/16 at 16:00 Glucose (Glutose) 22.5 gm Q15M PRN PO DECREASED GLUCOSE; Start 11/08/16 at 16: 00 Dextrose (D50w Syringe) 25 ml Q15M PRN IV DECREASED GLUCOSE; Start 11/08/16 at 16:00 Dextrose (D50w Syringe) 50 ml Q15M PRN IV DECREASED GLUCOSE; Start 11/08/16 at 16:00 Glucagon (Glucagen) 1 mg Q15M PRN IM DECREASED GLUCOSE; Start 11/08/16 at 16:00 Glucose (Glutose) 15 gm Q15M PRN BUCCAL DECREASED GLUCOSE; Start 11/08/16 at 16 :00 Acetaminophen/ Hydrocodone Bitart ([place] (5/325)) 1 tab Q4H PRN PO SEVERE PAIN 7-10 Last administered on 11/16/16 14:59; Admin Dose 1 TAB; Start 11/08/16 at 21:00 Morphine Sulfate (morphine) 2 mg Q4H PRN IV PAIN LEVEL 7-10 Last administered on 11/19/16 19:00; Admin Dose 2 MG; Start 11/09/16 at 11:00 Collagenase (Santyl) 1 applic DAILY TOP Last administered on 11/19/16 09:58; Admin Dose 1 APPLIC; Start 11/09/16 at 16:00 Lorazepam (Ativan) 1 mg Q6H PRN IV AGITATION/ANXIETY Last administered on 02:37; Admin Dose 1 MG; Start 11/09/16 at 20:30 Pantoprazole (Protonix Iv) 40 mg BID@,18 IV Last administered on 11/20/16 05: 25; Admin Dose 40 MG; Start 11/10/16 at 06:00 Sodium Phosphate (Neutra-Phos) 250 mg BID GTB Last administered on 11/19/16 21: 04; Admin Dose 250 MG; Start 11/10/16 at 09:00 Mupirocin (Bactroban) 1 applic BID TOP Last administered on 11/19/16 21:06; Admin Dose 1 APPLIC; Start 11/10/16 at 12:30 Insulin Aspart (Novolog Insulin Pen) NOVOLOG *MILD* ALGORI... Q6 SC Last administered on 11/19/16 17:45; Admin Dose 1 UNIT; Start 11/11/16 at 00:00 Calcium/Vitamin D (Oyster Shell/ Vit-D (500/200)) 1 tab DAILY GTB Last administered on 11/19/16 09:56; Admin Dose 1 TAB; Start 11/12/16 at 11:00 Prochlorperazine (Compazine) 5 mg Q6H PRN GTB NAUSEA AND/OR VOMITING; Start 11/17/16 at 17:30 Assessment/Plan Chief Complaint/Hosp Course - sepsis - h/o GIB - ascites, s/p paracentesis on 11/14/2016; not consistent with SBP. Took empiric cefepime (11/12/16-11/17/16) and metronidazole (10/14/2016-11/17/16) - near complete collapse of RLL with LLL atelectasis, pulmonary edema - h/o severe C diff colitis in 2016 - ESRD on HD - VDRF with trach - G tube dependence - PVD - s/p L BKA - abdominal pain - Abd X-ray 11/16/16 shows no e/o obstruction - MRSA nasal colonization, completed mupirocin for 10 days recommendations - d/c mupirocin - will monitor Pt off systemic antibiotics - ID team will round on this Pt as needed Problems: SADIA LONDON M.D. Nov 20, 2016 10:01
--- NOTE | 2016-11-20 10:34 | PN ---
Date/Time of Note Date/Time of Note DATE: 11/20/16 TIME: 10:32 Assessment/Plan VTE Prophylaxis VTE Prophylaxis Intervention: SCD's Lines/Catheters IV Catheter Type (from [facility]): [facility] [facility] Urinary Cath still in place: No Assessment/Plan Chief Complaint/Hosp Course Assessment/Plan - Esophagitis per EGD. Continue Protonix Dr. Hernandez is following in gastroenterology consultation. - Anemia of chronic disease, on Epogen, continue to monitor hemoglobin and hematocrit, transfuse as needed. - Ascites, SBP ruled out, Status post paracentesis 11/14,ascitic fluid culture negative. - Systemic inflammatory response syndrome with leukocytosis, patient is followed by Dr. Benjamin deluna in infection disease consultation. - End-stage renal disease, hemodialysis dependent. Continue hemodialysis per nephrology. - Chronic respiratory failure with tracheostomy. Dr. Sahu is following in pulmonology consultation. - Coronary artery disease with history of PCI. - Diastolic congestive heart failure - Pulmonary hypertension - Peripheral vascular disease, status post left BKA. - Diabetes mellitus type 2, continue NovoLog per sliding scale. - Sacral decub present on admission. Continue current wound care. D/C planning Problems: Exam/Review of Systems Vital Signs Vitals Vital Signs Date Time Temp Pulse Resp B/P Pulse Ox O2 Delivery O2 Flow Rate FiO2 11/20/16 10:11 98.3 88 17 99/54 98 11/20/16 09:15 30 11/20/16 06:00 Mechanical Ventilator Intake and Output 11/19/16 11/19/16 11/20/16 15:00 23:00 07:00 Intake Total 910 ml 520 ml Output Total 1500 ml Balance -590 ml 520 ml Exam GENERAL: Well-developed, well-nourished male, currently on vent support. HEENT: Head is atraumatic, normocephalic. PERRLA. NECK: Supple. Tracheostomy at the base of the neck. LUNGS: Slightly diminished at the bases. Clear in the upper lobes. HEART: Normal S1, S2. No murmurs, gallops, clicks, rubs noted. ABDOMEN: Protuberant, soft, nondistended, nontender. G-tube in place. EXTREMITIES: The patient is status post left BKA. Right lower extremity with mild edema. The patient has a left upper extremity arteriovenous fistula with palpable thrill and audible bruit. SKIN: No rash, petechiae noted. Sacral decubitus ulcer. NEUROLOGIC: The patient is awake, alert. Results Result Diagram: 11/20/16 0535 11/20/16 0828 Results 24 hrs Laboratory Tests Test 11/19/16 12:23 11/19/16 17:36 11/19/16 21:03 11/20/16 05:23 Bedside Glucose 183 152 133 138 Test 11/20/16 05:35 11/20/16 08:28 11/20/16 09:01 White Blood Count 10.5 Red Blood Count 3.30 L Hemoglobin 10.1 L Hematocrit 32.6 L Mean Corpuscular Volume 98.8 Mean Corpuscular Hemoglobin 30.6 Mean Corpuscular Hemoglobin Concent 31.0 L Red Cell Distribution Width 18.6 H Platelet Count 129 #L Mean Platelet Volume 10.2 Neutrophils % 79.8 H Lymphocytes % 8.8 L Monocytes % 9.3 Eosinophils % 1.1 Basophils % 0.4 Nucleated Red Blood Cells % 0.0 Neutrophils # 8.4 H Lymphocytes # 0.9 Monocytes # 1.0 H Eosinophils # 0.1 Basophils # 0.0 Nucleated Red Blood Cells # 0.0 Sodium Level 138 Potassium Level 5.4 H Chloride Level 102 Carbon Dioxide Level 26 Anion Gap 15 Blood Urea Nitrogen 48 H Creatinine 2.69 H Glucose Level 159 Calcium Level 7.5 L Bedside Glucose 172 Medications Medications Current Medications Lidocaine (Lidoderm) 1 patch DAILY TD Last administered on 11/20/16 09:06; Admin Dose 1 PATCH; Start 11/08/16 at 15:30 Acetaminophen (Tylenol Liquid) 325 mg Q4H PRN GTB MILD PAIN LEVEL 1-3 Last administered on 11/17/16 02:37; Admin Dose 325 MG; Start 11/08/16 at 15:30 Acetaminophen (Tylenol Liquid) 650 mg Q4H PRN GTB MODERATE PAIN LEVEL 4-6 Last administered on 11/18/16 23:57; Admin Dose 650 MG; Start 11/08/16 at 15:30 Ascorbic Acid (Vitamin C) 500 mg DAILY GTB Last administered on 11/20/16 09:04 ; Admin Dose 500 MG; Start 11/09/16 at 09:00 Atorvastatin Calcium (Lipitor) 40 mg QHS GTB Last administered on 11/19/16 21: 04; Admin Dose 40 MG; Start 11/08/16 at 21:00 Carvedilol (Coreg) 3.125 mg BID GTB Last administered on 11/17/16 22:28; Admin Dose 3.125 MG; Start 11/08/16 at 21:00 Duloxetine HCl (Cymbalta) 30 mg DAILY GTB Last administered on 11/20/16 09:04; Admin Dose 30 MG; Start 11/09/16 at 09:00 Fluticasone Propionate (Flonase 0.05% Nasal) 1 spray BID NASAL Last administered on 11/20/16 09:06; Admin Dose 1 SPRAY; Start 11/08/16 at 21:00 Insulin Glargine (Lantus) 10 unit DAILY SC Last administered on 11/20/16 09:58 ; Admin Dose 10 UNIT; Start 11/09/16 at 09:00 Lactobacillus Acidoph/Bulgaricus (Floranex) 1 tab DAILY GTB Last administered on 11/20/16 09:05; Admin Dose 1 TAB; Start 11/09/16 at 09:00 Sildenafil Citrate (Revatio) 20 mg BID GTB Last administered on 11/19/16 21:05 ; Admin Dose 20 MG; Start 11/08/16 at 21:00 Zinc Sulfate (Zinc Sulfate) 220 mg DAILY GTB Last administered on 11/20/16 09: 04; Admin Dose 220 MG; Start 11/09/16 at 09:00 Vitamin B Complex/ Vitamin C (Berocca) 1 cap DAILY GTB Last administered on 11/20 09:05; Admin Dose 1 CAP; Start 11/09/16 at 09:00 Miscellaneous Information 1 ea NOTE XX ; Start 11/08/16 at 16:00 Glucose (Glutose) 15 gm Q15M PRN PO DECREASED GLUCOSE; Start 11/08/16 at 16:00 Glucose (Glutose) 22.5 gm Q15M PRN PO DECREASED GLUCOSE; Start 11/08/16 at 16: 00 Dextrose (D50w Syringe) 25 ml Q15M PRN IV DECREASED GLUCOSE; Start 11/08/16 at 16:00 Dextrose (D50w Syringe) 50 ml Q15M PRN IV DECREASED GLUCOSE; Start 11/08/16 at 16:00 Glucagon (Glucagen) 1 mg Q15M PRN IM DECREASED GLUCOSE; Start 11/08/16 at 16:00 Glucose (Glutose) 15 gm Q15M PRN BUCCAL DECREASED GLUCOSE; Start 11/08/16 at 16 :00 Acetaminophen/ Hydrocodone Bitart ([place] (5/325)) 1 tab Q4H PRN PO SEVERE PAIN 7-10 Last administered on 11/16/16 14:59; Admin Dose 1 TAB; Start 11/08/16 at 21:00 Morphine Sulfate (morphine) 2 mg Q4H PRN IV PAIN LEVEL 7-10 Last administered on 11/19/16 19:00; Admin Dose 2 MG; Start 11/09/16 at 11:00 Collagenase (Santyl) 1 applic DAILY TOP Last administered on 11/20/16 09:07; Admin Dose 1 APPLIC; Start 11/09/16 at 16:00 Lorazepam (Ativan) 1 mg Q6H PRN IV AGITATION/ANXIETY Last administered on 02:37; Admin Dose 1 MG; Start 11/09/16 at 20:30 Pantoprazole (Protonix Iv) 40 mg BID@06,18 IV Last administered on 11/20/16 05: 25; Admin Dose 40 MG; Start 11/10/16 at 06:00 Sodium Phosphate (Neutra-Phos) 250 mg BID GTB Last administered on 11/20/16 09: 05; Admin Dose 250 MG; Start 11/10/16 at 09:00 Insulin Aspart (Novolog Insulin Pen) NOVOLOG *MILD* ALGORI... Q6 SC Last administered on 11/19/16 17:45; Admin Dose 1 UNIT; Start 11/11/16 at 00:00 Calcium/Vitamin D (Oyster Shell/ Vit-D (500/200)) 1 tab DAILY GTB Last administered on 11/20/16 09:04; Admin Dose 1 TAB; Start 11/12/16 at 11:00 Prochlorperazine (Compazine) 5 mg Q6H PRN GTB NAUSEA AND/OR VOMITING; Start 11/17/16 at 17:30 MARY DOMINGUEZ Nov 20, 2016 10:33
--- NOTE | 2016-11-20 12:52 | PN ---
DATE: 11/20/2016 PULMONARY PROGRESS NOTE SUBJECTIVE: Mr. Frank condition is stable. The patient remains awake, remains ventilator depende nt, has remained hemodynamically stable. PHYSICAL EXAMINATION: GENERAL: Elderly male, currently in no distress, on ventilator via tracheostomy. VITAL SIGNS: Temperature 98.8 degrees Fahrenheit, respiratory rate is 18 per minute, heart rate 80 per minute, blood pressure is 130/68, O2 sat 97% on current ventilator settings which are AC of 14, tidal volume 550, PEEP of 5, 30% FIO2. NECK: Supple. Tracheostomy in place with clean insertion site. No neck masses, no lymphadenopathy , no thyromegaly, no neck bruits. Pupils are mid size bilaterally. CHEST: Diminished, but clear breath sounds. HEART: S1, S2 audible, no murmurs, regular rhythm. ABDOMEN: Soft. G-tube in place. Bowel sounds audible no organomegaly, nontender. EXTREMITIES: There is a well-healed left below knee amputation. No peripheral edema. Multiple are as of ecchymosis are present in all 4 extremities. CENTRAL NERVOUS SYSTEM: The patient is awake and is responsive. LABORATORY DATA: White count is 10.5, hemoglobin 10.1, platelet count of 129. Sodium 138, potassiu m 5.4, chloride 102, bicarbonate 26, BUN 48, creatinine 2.6. MEDICATIONS: Reviewed. The patient is currently on: 1. Insulin, Lantus 10 units daily. 2. Hydrocodone on a p.r.n. basis. 3. Tube feeding via G-tube. 4. Cymbalta 30 mg a day. 5. Coreg 3.125 mg b.i.d. 6. Atorvastatin 40 mg a day. 7. DuoNeb q.6 hours. ASSESSMENT AND PLAN: 1. The patient admitted for urinary tract infection and sepsis with significant clinical improvemen t off antibiotics. 2. Chronic respiratory failure. The patient remains ventilator dependent. 3. History of cerebrovascular accident. RECOMMENDATIONS: Continue current supportive care. The patient to be transferred back to the [facility]. Overall, prognosis remains poor. Dictated By: ELVI MCKENNA/NTS Conf#: [id number] DID#: [id number]
--- NOTE | 2016-11-20 13:19 | CONS ---
Date/Time of Note Date/Time of Note DATE: 11/20/16 TIME: 13:18 Assessment/Plan Assessment/Plan Additional Assessment/Plan Paroxysmal atrial tachycardia Possible GI bleed Respiratory failure status post tracheostomy Diastolic congestive heart failure End-stage renal disease on hemodialysis CAD with history of PCI Diabetes Peripheral arterial disease with history of amputation Pulmonary hypertension Hypotension, improved -occasional low BP, holding parameters on coreg and sildenafil. No new CV orders at the current time. Consultation Date/Type/Reason Admit Date/Time Nov 08, 2016 at 10:56 Initial Consult Date 11/09/16 Type of Consultation: cv Referring Provider: GRACIE KATHLEEN 24 HR Interval Summary Free Text/Dictation no sob, dizziness Exam/Review of Systems Vital Signs Vitals Vital Signs Date Time Temp Pulse Resp B/P Pulse Ox O2 Delivery O2 Flow Rate FiO2 11/20/16 10:11 98.3 88 17 99/54 98 11/20/16 09:15 30 11/20/16 06:00 Mechanical Ventilator Intake and Output 11/19/16 11/19/16 11/20/16 15:00 23:00 07:00 Intake Total 910 ml 520 ml Output Total 1500 ml Balance -590 ml 520 ml Exam nad Constitutional: alert Head: normocephalic Neck: other (trach) Respiratory: other (course bs, no wheeze) Cardiovascular: other (s1s2), regular rate and rhythm Gastrointestinal: bowel sounds, non-tender, soft Extremities: edema, other Results Result Diagram: 11/20/16 0535 11/20/16 0828 Results 24 hrs Laboratory Tests Test 11/19/16 17:36 11/19/16 21:03 11/20/16 05:23 11/20/16 05:35 Bedside Glucose 152 133 138 White Blood Count 10.5 Red Blood Count 3.30 L Hemoglobin 10.1 L Hematocrit 32.6 L Mean Corpuscular Volume 98.8 Mean Corpuscular Hemoglobin 30.6 Mean Corpuscular Hemoglobin Concent 31.0 L Red Cell Distribution Width 18.6 H Platelet Count 129 #L Mean Platelet Volume 10.2 Neutrophils % 79.8 H Lymphocytes % 8.8 L Monocytes % 9.3 Eosinophils % 1.1 Basophils % 0.4 Nucleated Red Blood Cells % 0.0 Neutrophils # 8.4 H Lymphocytes # 0.9 Monocytes # 1.0 H Eosinophils # 0.1 Basophils # 0.0 Nucleated Red Blood Cells # 0.0 Test 11/20/16 08:28 11/20/16 09:01 11/20/16 13:00 Sodium Level 138 Potassium Level 5.4 H Chloride Level 102 Carbon Dioxide Level 26 Anion Gap 15 Blood Urea Nitrogen 48 H Creatinine 2.69 H Glucose Level 159 Calcium Level 7.5 L Bedside Glucose 172 182 Medications Medications Current Medications Lidocaine (Lidoderm) 1 patch DAILY TD Last administered on 11/20/16 09:06; Admin Dose 1 PATCH; Start 11/08/16 at 15:30 Acetaminophen (Tylenol Liquid) 325 mg Q4H PRN GTB MILD PAIN LEVEL 1-3 Last administered on 11/17/16 02:37; Admin Dose 325 MG; Start 11/08/16 at 15:30 Acetaminophen (Tylenol Liquid) 650 mg Q4H PRN GTB MODERATE PAIN LEVEL 4-6 Last administered on 11/18/16 23:57; Admin Dose 650 MG; Start 11/08/16 at 15:30 Ascorbic Acid (Vitamin C) 500 mg DAILY GTB Last administered on 11/20/16 09:04 ; Admin Dose 500 MG; Start 11/09/16 at 09:00 Atorvastatin Calcium (Lipitor) 40 mg QHS GTB Last administered on 11/19/16 21: 04; Admin Dose 40 MG; Start 11/08/16 at 21:00 Carvedilol (Coreg) 3.125 mg BID GTB Last administered on 11/17/16 22:28; Admin Dose 3.125 MG; Start 11/08/16 at 21:00 Duloxetine HCl (Cymbalta) 30 mg DAILY GTB Last administered on 11/20/16 09:04; Admin Dose 30 MG; Start 11/09/16 at 09:00 Fluticasone Propionate (Flonase 0.05% Nasal) 1 spray BID NASAL Last administered on 11/20/16 09:06; Admin Dose 1 SPRAY; Start 11/08/16 at 21:00 Insulin Glargine (Lantus) 10 unit DAILY SC Last administered on 11/20/16 09:58 ; Admin Dose 10 UNIT; Start 11/09/16 at 09:00 Lactobacillus Acidoph/Bulgaricus (Floranex) 1 tab DAILY GTB Last administered on 11/20/16 09:05; Admin Dose 1 TAB; Start 11/09/16 at 09:00 Sildenafil Citrate (Revatio) 20 mg BID GTB Last administered on 11/19/16 21:05 ; Admin Dose 20 MG; Start 11/08/16 at 21:00 Zinc Sulfate (Zinc Sulfate) 220 mg DAILY GTB Last administered on 11/20/16 09: 04; Admin Dose 220 MG; Start 11/09/16 at 09:00 Vitamin B Complex/ Vitamin C (Berocca) 1 cap DAILY GTB Last administered on 11/20 09:05; Admin Dose 1 CAP; Start 11/09/16 at 09:00 Miscellaneous Information 1 ea NOTE XX ; Start 11/08/16 at 16:00 Glucose (Glutose) 15 gm Q15M PRN PO DECREASED GLUCOSE; Start 11/08/16 at 16:00 Glucose (Glutose) 22.5 gm Q15M PRN PO DECREASED GLUCOSE; Start 11/08/16 at 16: 00 Dextrose (D50w Syringe) 25 ml Q15M PRN IV DECREASED GLUCOSE; Start 11/08/16 at 16:00 Dextrose (D50w Syringe) 50 ml Q15M PRN IV DECREASED GLUCOSE; Start 11/08/16 at 16:00 Glucagon (Glucagen) 1 mg Q15M PRN IM DECREASED GLUCOSE; Start 11/08/16 at 16:00 Glucose (Glutose) 15 gm Q15M PRN BUCCAL DECREASED GLUCOSE; Start 11/08/16 at 16 :00 Acetaminophen/ Hydrocodone Bitart ([place] (5/325)) 1 tab Q4H PRN PO SEVERE PAIN 7-10 Last administered on 11/16/16 14:59; Admin Dose 1 TAB; Start 11/08/16 at 21:00 Morphine Sulfate (morphine) 2 mg Q4H PRN IV PAIN LEVEL 7-10 Last administered on 11/19/16 19:00; Admin Dose 2 MG; Start 11/09/16 at 11:00 Collagenase (Santyl) 1 applic DAILY TOP Last administered on 11/20/16 09:07; Admin Dose 1 APPLIC; Start 11/09/16 at 16:00 Lorazepam (Ativan) 1 mg Q6H PRN IV AGITATION/ANXIETY Last administered on 02:37; Admin Dose 1 MG; Start 11/09/16 at 20:30 Pantoprazole (Protonix Iv) 40 mg BID@06,18 IV Last administered on 11/20/16 05: 25; Admin Dose 40 MG; Start 11/10/16 at 06:00 Sodium Phosphate (Neutra-Phos) 250 mg BID GTB Last administered on 11/20/16 09: 05; Admin Dose 250 MG; Start 11/10/16 at 09:00 Insulin Aspart (Novolog Insulin Pen) NOVOLOG *MILD* ALGORI... Q6 SC Last administered on 11/19/16 17:45; Admin Dose 1 UNIT; Start 11/11/16 at 00:00 Calcium/Vitamin D (Oyster Shell/ Vit-D (500/200)) 1 tab DAILY GTB Last administered on 11/20/16 09:04; Admin Dose 1 TAB; Start 11/12/16 at 11:00 Prochlorperazine (Compazine) 5 mg Q6H PRN GTB NAUSEA AND/OR VOMITING; Start 11/17/16 at 17:30 Solo Leon DO Nov 20, 2016 13:19
[2016-11-20] MEDS: morphine 2 MG INJ IV PRN (14:46)
[2016-11-20] MEDS: LORAZEPAM 2 MG INJ IV PRN (17:13)
[2016-11-20] MEDS: ATORVASTATIN 40 MG TAB GTB SCH (21:09)
[2016-11-21] VITALS (39 sets, daily range): BP systolic 85–127; BP diastolic 44–74; PULSE 66–101; RESP 15–26
[2016-11-21] MEDS: LORAZEPAM 2 MG INJ IV PRN ×2 (00:25→06:29)
[2016-11-21] MEDS: PANTOPRAZOLE 40 MG INJ IV SCH ×2 (06:29→18:00)
[2016-11-21] MEDS: INSULIN ASPART [NOVOLOG] 3 ML PEN SC SCH ×4 (06:39→18:00)
[2016-11-21 07:19] LABS: ADD SCAN DIFF NO
[2016-11-21 07:25] LABS: BASOPHIL # 0.1 10^3/ul (0.0-0.1); BASOPHILS % 0.4 % (0.0-2.0); EOSINOPHILS # 0.2 10^3/ul (0.0-0.5); EOSINOPHILS % 1.4 % (0.0-7.0); HEMATOCRIT 32.1 % (42.0-52.0); HEMOGLOBIN 10.2 g/dl (14.0-18.0); LYMPHOCYTES # 1.1 10^3/ul (0.8-2.9); LYMPHOCYTES % 9.4 % (15.0-51.0); MEAN CORPUSCULAR HGB CONC 31.8 g/dl (32.0-37.0); MEAN CORPUSCULAR VOLUME 97.6 fl (82.0-101.0); MEAN PLATELET VOLUME 9.3 fl (7.4-10.4); MONOCYTE # 1.2 10^3/ul (0.3-0.9); NEUTROPHIL # 8.6 10^3/ul (1.6-7.5); NEUTROPHILS % 77.2 % (39.0-77.0); PLATELET COUNT 220 10^3/UL (140-415); RED BLOOD COUNT 3.29 10^6/ul (4.70-6.10); RED CELL DISTRIBUTION WIDTH 18.6 % (11.5-14.5); WHITE BLOOD COUNT 11.1 10^3/ul (4.8-10.8)
[2016-11-21 07:34] LABS: POTASSIUM 5.1 mmol/L (3.5-5.1)
[2016-11-21 07:36] LABS: CREATININE 3.14 mg/dl (0.61-1.24)
[2016-11-21 07:37] LABS: CALCIUM 7.9 mg/dl (8.4-10.2)
[2016-11-21] MEDS: LACTOBACILLUS CHEW TAB GTB SCH ×2 (09:00→09:48)
[2016-11-21] MEDS: DULOXETINE 30 MG CAP DR GTB SCH ×2 (09:00→09:48)
[2016-11-21] MEDS: ZINC SULFATE 220 MG CAP GTB SCH ×2 (09:00→09:49)
[2016-11-21] MEDS: CALCIUM/VITAMIN D (500/200) TAB GTB SCH ×2 (09:00→09:49)
[2016-11-21] MEDS: ASCORBIC ACID 500 MG TAB GTB SCH ×2 (09:00→09:49)
[2016-11-21] MEDS: NEUTRA-PHOS 250 MG PACKET GTB SCH ×2 (09:00→20:54)
[2016-11-21] MEDS: SILDENAFIL 20 MG TAB GTB SCH ×2 (09:00→20:54)
[2016-11-21] MEDS: VITAMIN B COMPLEX/VIT C CAP GTB SCH ×2 (09:00→09:48)
[2016-11-21] MEDS: LIDOCAINE 5% PATCH TD SCH (09:12)
[2016-11-21] MEDS: COLLAGENASE 30 GM TUBE TOP SCH (09:13)
[2016-11-21] MEDS: FLUTICASONE 0.05% 16 GM NAS SPRAY NASAL SCH ×2 (09:13→20:55)
--- NOTE | 2016-11-21 09:27 | PN ---
DATE: 11/21/2016 SUBJECTIVE: The patient is stable. No events overnight. No fevers, chills, nausea, vomiting. OBJECTIVE: VITAL SIGNS: Blood pressure /54, respirations 18, pulse 105, temperature 98.2. HEENT: Head is normocephalic. NECK: Supple. HEART: Regular rate. LUNGS: Show diminished breath sounds at base. ABDOMEN: Soft, nontender to palpation. No rebound or guarding. EXTREMITIES: Negative for clubbing, cyanosis, or edema. Positive BKA. DERMATOLOGIC: No rashes. MUSCULOSKELETAL: No joint effusions. NEUROLOGIC: No change in exam. MEDICATIONS: Reviewed. LABORATORY DATA: Shows sodium 137, potassium 5.1, BUN 55, creatinine 3.14. White count 11.1, hemog lobin 10.2, hematocrit 32.1, platelet count is 220,000. ASSESSMENT AND PLAN: 1. End-stage renal disease. The patient is scheduled for hemodialysis today. Will dialyze for 3 ho urs on a 2K bath, calcium 2.5. 2. Anemia of chronic disease. Continue to monitor H and H levels. Will give Epogen as needed. 3. Mineral bone disorder. Continue to monitor calcium and phosphorus levels. Continue Neutra-Phos . 4. Volume overload, clinically improving. Continue ultrafiltration with dialysis. 5. Sepsis secondary to pneumonia. The patient has completed antibiotic course. Continue to monito r. 6. Ventilatory-dependent respiratory failure. Vent settings were reviewed. Continue to monitor. Follow up with pulmonary. 7. Dysphagia, status post percutaneous endoscopic gastrostomy. Continue tube feeds. 8. Coronary artery disease. Continue current medical management. 9. Diabetes. Continue Accu-Cheks and sliding scale. 10. Status post gastrointestinal bleed. 11. Depression and anxiety disorder. Continue current treatment plan. 12. Hypertension. Continue to monitor closely. Minimize ultrafiltration. 13. History of congestive heart failure. Continue medical management. Dictated By: SARAHI RINALDI/OLESYA Conf#: [id number] DID#: [id number]
[2016-11-21] MEDS: INSULIN GLARGINE [LANtus] 3 ML PEN SC SCH (09:30)
--- NOTE | 2016-11-21 11:35 | CONS ---
Date/Time of Note Date/Time of Note DATE: 11/21/16 TIME: 11:34 Consult Date/Type/Reason Admit Date/Time Nov 08, 2016 at 10:56 Initial Consult Date 11/09/16 Type of Consultation: pulmonary Ordering Provider: GRACIE KATHLEEN Subjective Patient comfortable this morning awake alert mild agitation no respiratory distress Objective Vital Signs Date Time Temp Pulse Resp B/P Pulse Ox O2 Delivery O2 Flow Rate FiO2 11/21/16 10:00 99.4 98 18 111/47 95 11/21/16 09:48 30 11/21/16 06:22 Mechanical Ventilator Trach Collar Intake and Output 11/20/16 11/20/16 11/21/16 15:00 23:00 07:00 Intake Total 600 ml Balance 600 ml Exam PHYSICAL EXAMINATION GENERAL: Elderly gentleman, intubated on mechanical ventilation, appears comfortable VITAL SIGNS: see below. HEENT: Pupils equal, round, and reactive to light. Tracheostomy site clean and intact. CARDIAC: S1, S2, 1/6 systolic murmur CHEST: Diminished air entry bilaterally. ABDOMEN: Mildly distended. No bowel sounds. EXTREMITIES: No cyanosis, clubbing edema +1 NEUROLOGIC: Generalized weakness Results/Medications Result Diagram: 11/21/16 0625 11/21/16 0625 Results 24 hrs Laboratory Tests Test 11/20/16 13:00 11/20/16 17:19 11/21/16 00:20 11/21/16 06:21 Bedside Glucose 182 113 119 171 Test 11/21/16 06:25 White Blood Count 11.1 H Red Blood Count 3.29 L Hemoglobin 10.2 L Hematocrit 32.1 L Mean Corpuscular Volume 97.6 Mean Corpuscular Hemoglobin 31.0 Mean Corpuscular Hemoglobin Concent 31.8 L Red Cell Distribution Width 18.6 H Platelet Count 220 # Mean Platelet Volume 9.3 Neutrophils % 77.2 H Lymphocytes % 9.4 L Monocytes % 11.0 Eosinophils % 1.4 Basophils % 0.4 Nucleated Red Blood Cells % 0.0 Neutrophils # 8.6 H Lymphocytes # 1.1 Monocytes # 1.2 H Eosinophils # 0.2 Basophils # 0.1 Nucleated Red Blood Cells # 0.0 Sodium Level 137 Potassium Level 5.1 Chloride Level 102 Carbon Dioxide Level 25 Anion Gap 15 Blood Urea Nitrogen 55 H Creatinine 3.14 H Glucose Level 163 Calcium Level 7.9 L Medications Current Medications Lidocaine (Lidoderm) 1 patch DAILY TD Last administered on 11/21/16 09:12; Admin Dose 1 PATCH; Start 11/08/16 at 15:30 Acetaminophen (Tylenol Liquid) 325 mg Q4H PRN GTB MILD PAIN LEVEL 1-3 Last administered on 11/17/16 02:37; Admin Dose 325 MG; Start 11/08/16 at 15:30 Acetaminophen (Tylenol Liquid) 650 mg Q4H PRN GTB MODERATE PAIN LEVEL 4-6 Last administered on 11/18/16 23:57; Admin Dose 650 MG; Start 11/08/16 at 15:30 Ascorbic Acid (Vitamin C) 500 mg DAILY GTB Last administered on 11/21/16 09:49 ; Admin Dose 500 MG; Start 11/09/16 at 09:00 Atorvastatin Calcium (Lipitor) 40 mg QHS GTB Last administered on 11/20/16 21: 09; Admin Dose 40 MG; Start 11/08/16 at 21:00 Carvedilol (Coreg) 3.125 mg BID GTB Last administered on 11/17/16 22:28; Admin Dose 3.125 MG; Start 11/08/16 at 21:00 Duloxetine HCl (Cymbalta) 30 mg DAILY GTB Last administered on 11/21/16 09:48; Admin Dose 30 MG; Start 11/09/16 at 09:00 Fluticasone Propionate (Flonase 0.05% Nasal) 1 spray BID NASAL Last administered on 11/21/16 09:13; Admin Dose 1 SPRAY; Start 11/08/16 at 21:00 Insulin Glargine (Lantus) 10 unit DAILY SC Last administered on 11/21/16 09:30 ; Admin Dose 10 UNIT; Start 11/09/16 at 09:00 Lactobacillus Acidoph/Bulgaricus (Floranex) 1 tab DAILY GTB Last administered on 11/21/16 09:48; Admin Dose 1 TAB; Start 11/09/16 at 09:00 Sildenafil Citrate (Revatio) 20 mg BID GTB Last administered on 11/19/16 21:05 ; Admin Dose 20 MG; Start 11/08/16 at 21:00 Zinc Sulfate (Zinc Sulfate) 220 mg DAILY GTB Last administered on 11/21/16 09: 49; Admin Dose 220 MG; Start 11/09/16 at 09:00 Vitamin B Complex/ Vitamin C (Berocca) 1 cap DAILY GTB Last administered on 11/21 09:48; Admin Dose 1 CAP; Start 11/09/16 at 09:00 Miscellaneous Information 1 ea NOTE XX ; Start 11/08/16 at 16:00 Glucose (Glutose) 15 gm Q15M PRN PO DECREASED GLUCOSE; Start 11/08/16 at 16:00 Glucose (Glutose) 22.5 gm Q15M PRN PO DECREASED GLUCOSE; Start 11/08/16 at 16: 00 Dextrose (D50w Syringe) 25 ml Q15M PRN IV DECREASED GLUCOSE; Start 11/08/16 at 16:00 Dextrose (D50w Syringe) 50 ml Q15M PRN IV DECREASED GLUCOSE; Start 11/08/16 at 16:00 Glucagon (Glucagen) 1 mg Q15M PRN IM DECREASED GLUCOSE; Start 11/08/16 at 16:00 Glucose (Glutose) 15 gm Q15M PRN BUCCAL DECREASED GLUCOSE; Start 11/08/16 at 16 :00 Acetaminophen/ Hydrocodone Bitart ([place] (5/325)) 1 tab Q4H PRN PO SEVERE PAIN 7-10 Last administered on 11/16/16 14:59; Admin Dose 1 TAB; Start 11/08/16 at 21:00 Morphine Sulfate (morphine) 2 mg Q4H PRN IV PAIN LEVEL 7-10 Last administered on 11/20/16 14:46; Admin Dose 2 MG; Start 11/09/16 at 11:00 Collagenase (Santyl) 1 applic DAILY TOP Last administered on 11/21/16 09:13; Admin Dose 1 APPLIC; Start 11/09/16 at 16:00 Lorazepam (Ativan) 1 mg Q6H PRN IV AGITATION/ANXIETY Last administered on 06:29; Admin Dose 1 MG; Start 11/09/16 at 20:30 Pantoprazole (Protonix Iv) 40 mg BID@06,18 IV Last administered on 11/21/16 06: 29; Admin Dose 40 MG; Start 11/10/16 at 06:00 Sodium Phosphate (Neutra-Phos) 250 mg BID GTB Last administered on 11/20/16 21: 09; Admin Dose 250 MG; Start 11/10/16 at 09:00 Insulin Aspart (Novolog Insulin Pen) NOVOLOG *MILD* ALGORI... Q6 SC Last administered on 11/21/16 06:39; Admin Dose 1 UNIT; Start 11/11/16 at 00:00 Calcium/Vitamin D (Oyster Shell/ Vit-D (500/200)) 1 tab DAILY GTB Last administered on 11/21/16 09:49; Admin Dose 1 TAB; Start 11/12/16 at 11:00 Prochlorperazine (Compazine) 5 mg Q6H PRN GTB NAUSEA AND/OR VOMITING; Start 11/17/16 at 17:30 Assessment/Plan Chief Complaint/Hosp Course Assessment 1. Vent dependent respiratory failure 2. End-stage renal failure on hemodialysis 3. Recent urinary tract infection with sepsis 4. Anemia of chronic disease and possibly secondary to renal dysfunction 5. Dysphagia with G-tube Plan 1. Continue mechanical ventilation 2. Tube feeding as tolerated 3. Hemodialysis per nephrology 4. Antibiotics per infectious diseases 5. DVT and GI prophylaxis Disposition Consider transfer back to half-way facility Problems: VALERIE CAMARENA MD, [facility] Nov 21, 2016 11:35
--- NOTE | 2016-11-21 12:45 | PN ---
Date/Time of Note Date/Time of Note DATE: 11/21/16 TIME: 12:44 Assessment/Plan VTE Prophylaxis VTE Prophylaxis Intervention: SCD's Lines/Catheters IV [facility] [place] Urinary Cath still in place: No Assessment/Plan Chief Complaint/Hosp Course Assessment/Plan - Esophagitis per EGD. Continue Protonix Dr. Hernandez is following in gastroenterology consultation. - Anemia of chronic disease, on Epogen, continue to monitor hemoglobin and hematocrit, transfuse as needed. - Ascites, SBP ruled out, Status post paracentesis 11/14,ascitic fluid culture negative. - Systemic inflammatory response syndrome with leukocytosis, patient is followed by Dr. Benjamin deluna in infection disease consultation. - End-stage renal disease, hemodialysis dependent. Continue hemodialysis per nephrology. - Chronic respiratory failure with tracheostomy. Dr. Sahu is following in pulmonology consultation. - Coronary artery disease with history of PCI. - Diastolic congestive heart failure - Pulmonary hypertension - Peripheral vascular disease, status post left BKA. - Diabetes mellitus type 2, continue NovoLog per sliding scale. - Sacral decub present on admission. Continue current wound care. D/C planning Problems: Exam/Review of Systems Vital Signs Vitals Vital Signs Date Time Temp Pulse Resp B/P Pulse Ox O2 Delivery O2 Flow Rate FiO2 11/21/16 12:26 100 11/21/16 11:57 99.2 20 95/44 99 11/21/16 09:48 30 11/21/16 06:22 Mechanical Ventilator Trach Collar Intake and Output 11/20/16 11/20/16 11/21/16 15:00 23:00 07:00 Intake Total 600 ml Balance 600 ml Exam GENERAL: Well-developed, well-nourished male, currently on vent support. HEENT: Head is atraumatic, normocephalic. PERRLA. NECK: Supple. Tracheostomy at the base of the neck. LUNGS: Slightly diminished at the bases. Clear in the upper lobes. HEART: Normal S1, S2. No murmurs, gallops, clicks, rubs noted. ABDOMEN: Protuberant, soft, nondistended, nontender. G-tube in place. EXTREMITIES: The patient is status post left BKA. Right lower extremity with mild edema. The patient has a left upper extremity arteriovenous fistula with palpable thrill and audible bruit. SKIN: No rash, petechiae noted. Sacral decubitus ulcer. NEUROLOGIC: The patient is awake, alert. Results Result Diagram: 11/21/1625 11/21/16 0625 Results 24 hrs Laboratory Tests Test 11/20/16 13:00 11/20/16 17:19 11/21/16 00:20 11/21/16 06:21 Bedside Glucose 182 113 119 171 Test 11/21/16 06:25 11/21/16 12:03 White Blood Count 11.1 H Red Blood Count 3.29 L Hemoglobin 10.2 L Hematocrit 32.1 L Mean Corpuscular Volume 97.6 Mean Corpuscular Hemoglobin 31.0 Mean Corpuscular Hemoglobin Concent 31.8 L Red Cell Distribution Width 18.6 H Platelet Count 220 # Mean Platelet Volume 9.3 Neutrophils % 77.2 H Lymphocytes % 9.4 L Monocytes % 11.0 Eosinophils % 1.4 Basophils % 0.4 Nucleated Red Blood Cells % 0.0 Neutrophils # 8.6 H Lymphocytes # 1.1 Monocytes # 1.2 H Eosinophils # 0.2 Basophils # 0.1 Nucleated Red Blood Cells # 0.0 Sodium Level 137 Potassium Level 5.1 Chloride Level 102 Carbon Dioxide Level 25 Anion Gap 15 Blood Urea Nitrogen 55 H Creatinine 3.14 H Glucose Level 163 Calcium Level 7.9 L Bedside Glucose 188 Medications Medications Current Medications Lidocaine (Lidoderm) 1 patch DAILY TD Last administered on 11/21/16 09:12; Admin Dose 1 PATCH; Start 11/08/16 at 15:30 Acetaminophen (Tylenol Liquid) 325 mg Q4H PRN GTB MILD PAIN LEVEL 1-3 Last administered on 11/17/16 02:37; Admin Dose 325 MG; Start 11/08/16 at 15:30 Acetaminophen (Tylenol Liquid) 650 mg Q4H PRN GTB MODERATE PAIN LEVEL 4-6 Last administered on 11/18/16 23:57; Admin Dose 650 MG; Start 11/08/16 at 15:30 Ascorbic Acid (Vitamin C) 500 mg DAILY GTB Last administered on 11/21/16 09:49 ; Admin Dose 500 MG; Start 11/09/16 at 09:00 Atorvastatin Calcium (Lipitor) 40 mg QHS GTB Last administered on 11/20/16 21: 09; Admin Dose 40 MG; Start 11/08/16 at 21:00 Carvedilol (Coreg) 3.125 mg BID GTB Last administered on 11/17/16 22:28; Admin Dose 3.125 MG; Start 11/08/16 at 21:00 Duloxetine HCl (Cymbalta) 30 mg DAILY GTB Last administered on 11/21/16 09:48; Admin Dose 30 MG; Start 11/09/16 at 09:00 Fluticasone Propionate (Flonase 0.05% Nasal) 1 spray BID NASAL Last administered on 11/21/16 09:13; Admin Dose 1 SPRAY; Start 11/08/16 at 21:00 Insulin Glargine (Lantus) 10 unit DAILY SC Last administered on 11/21/16 09:30 ; Admin Dose 10 UNIT; Start 11/09/16 at 09:00 Lactobacillus Acidoph/Bulgaricus (Floranex) 1 tab DAILY GTB Last administered on 11/21/16 09:48; Admin Dose 1 TAB; Start 11/09/16 at 09:00 Sildenafil Citrate (Revatio) 20 mg BID GTB Last administered on 11/19/16 21:05 ; Admin Dose 20 MG; Start 11/08/16 at 21:00 Zinc Sulfate (Zinc Sulfate) 220 mg DAILY GTB Last administered on 11/21/16 09: 49; Admin Dose 220 MG; Start 11/09/16 at 09:00 Vitamin B Complex/ Vitamin C (Berocca) 1 cap DAILY GTB Last administered on 11/21 09:48; Admin Dose 1 CAP; Start 11/09/16 at 09:00 Miscellaneous Information 1 ea NOTE XX ; Start 11/08/16 at 16:00 Glucose (Glutose) 15 gm Q15M PRN PO DECREASED GLUCOSE; Start 11/08/16 at 16:00 Glucose (Glutose) 22.5 gm Q15M PRN PO DECREASED GLUCOSE; Start 11/08/16 at 16: 00 Dextrose (D50w Syringe) 25 ml Q15M PRN IV DECREASED GLUCOSE; Start 11/08/16 at 16:00 Dextrose (D50w Syringe) 50 ml Q15M PRN IV DECREASED GLUCOSE; Start 11/08/16 at 16:00 Glucagon (Glucagen) 1 mg Q15M PRN IM DECREASED GLUCOSE; Start 11/08/16 at 16:00 Glucose (Glutose) 15 gm Q15M PRN BUCCAL DECREASED GLUCOSE; Start 11/08/16 at 16 :00 Acetaminophen/ Hydrocodone Bitart ([place] (5/325)) 1 tab Q4H PRN PO SEVERE PAIN 7-10 Last administered on 11/16/16 14:59; Admin Dose 1 TAB; Start 11/08/16 at 21:00 Morphine Sulfate (morphine) 2 mg Q4H PRN IV PAIN LEVEL 7-10 Last administered on 11/20/16 14:46; Admin Dose 2 MG; Start 11/09/16 at 11:00 Collagenase (Santyl) 1 applic DAILY TOP Last administered on 11/21/16 09:13; Admin Dose 1 APPLIC; Start 11/09/16 at 16:00 Lorazepam (Ativan) 1 mg Q6H PRN IV AGITATION/ANXIETY Last administered on 06:29; Admin Dose 1 MG; Start 11/09/16 at 20:30 Pantoprazole (Protonix Iv) 40 mg BID@06,18 IV Last administered on 11/21/16 06: 29; Admin Dose 40 MG; Start 11/10/16 at 06:00 Sodium Phosphate (Neutra-Phos) 250 mg BID GTB Last administered on 11/20/16 21: 09; Admin Dose 250 MG; Start 11/10/16 at 09:00 Insulin Aspart (Novolog Insulin Pen) NOVOLOG *MILD* ALGORI... Q6 SC Last administered on 11/21/16 06:39; Admin Dose 1 UNIT; Start 11/11/16 at 00:00 Calcium/Vitamin D (Oyster Shell/ Vit-D (500/200)) 1 tab DAILY GTB Last administered on 11/21/16 09:49; Admin Dose 1 TAB; Start 11/12/16 at 11:00 Prochlorperazine (Compazine) 5 mg Q6H PRN GTB NAUSEA AND/OR VOMITING; Start 11/17/16 at 17:30 MARY DOMINGUEZ Nov 21, 2016 12:45
[2016-11-21] MEDS: morphine 2 MG INJ IV PRN ×2 (13:08→23:20)
--- NOTE | 2016-11-21 14:43 | RADRPT ---
PROCEDURE: Right knee series. CLINICAL INDICATION: Right knee pain TECHNIQUE: 2 views of the right knee are available for review. COMPARISON: None available FINDINGS: The bones of the right knee are markedly demineralized. Study is limited as only 2 views are provid ed in the true frontal view is seen. There is suggested valgus alignment deformity. There is no de finitive fracture or dislocation. There is no definite joint effusion. Extensive peripheral atheros clerotic calcifications are present IMPRESSION: 1. Marked osseous demineralization which limits evaluation of fine bony detail. No definite fractu re. 2. Suggested valgus alignment deformity. Recommend correlation with physical exam. 3. No definite joint effusion. 4. Extensive peripheral atherosclerotic calcifications. RPTAT: KK .Srinath Pond MD, Date Time Electronically viewed and signed by .Srinath Pond MD, on 11/21/2016 14:43 .B/
[2016-11-21] MEDS: ACETAMINOPHEN 650MG/20.3ML CUP GTB PRN (20:54)
[2016-11-21] MEDS: ATORVASTATIN 40 MG TAB GTB SCH (20:54)
[2016-11-21] MEDS ORDERED: [UNRECOGNIZED DRUG - REMARK] XX SCH (21:30)
[2016-11-21] MEDS: EPOETIN 10000 UNITS/1 ML INJ (ESRD) SC SCH (23:25)
[2016-11-22] VITALS (28 sets, daily range): BP systolic 85–114; BP diastolic 47–63; PULSE 83–98; RESP 14–26
[2016-11-22] MEDS: INSULIN ASPART [NOVOLOG] 3 ML PEN SC SCH ×5 (00:43→23:09)
[2016-11-22] MEDS: LORAZEPAM 2 MG INJ IV PRN (01:42)
[2016-11-22] MEDS: PANTOPRAZOLE 40 MG INJ IV SCH ×2 (05:28→17:20)
[2016-11-22] MEDS: SILDENAFIL 20 MG TAB GTB SCH ×2 (09:00→20:58)
[2016-11-22] MEDS: LACTOBACILLUS CHEW TAB GTB SCH (09:13)
[2016-11-22] MEDS: DULOXETINE 30 MG CAP DR GTB SCH (09:13)
[2016-11-22] MEDS: VITAMIN B COMPLEX/VIT C CAP GTB SCH (09:13)
[2016-11-22] MEDS: NEUTRA-PHOS 250 MG PACKET GTB SCH ×2 (09:13→20:57)
[2016-11-22] MEDS: FLUTICASONE 0.05% 16 GM NAS SPRAY NASAL SCH ×2 (09:14→20:59)
[2016-11-22] MEDS: ZINC SULFATE 220 MG CAP GTB SCH (09:14)
[2016-11-22] MEDS: CALCIUM/VITAMIN D (500/200) TAB GTB SCH (09:14)
[2016-11-22] MEDS: ASCORBIC ACID 500 MG TAB GTB SCH (09:14)
[2016-11-22] MEDS: LIDOCAINE 5% PATCH TD SCH (09:15)
[2016-11-22] MEDS: COLLAGENASE 30 GM TUBE TOP SCH (09:15)
[2016-11-22] MEDS: INSULIN GLARGINE [LANtus] 3 ML PEN SC SCH (10:48)
--- NOTE | 2016-11-22 11:12 | CONS ---
Date/Time of Note Date/Time of Note DATE: 11/22/16 TIME: 11:10 Assessment/Plan Assessment/Plan Additional Assessment/Plan Ventilator setting; history of 14, tidal volume 12/21/1947, PEEP of 5, 30% FiO2. Assessment recommendations; Graft #1. Patient admitted for UTI and sepsis with significant clinical improvement. 2. Chronic respiratory failure, ventilator dependent. 3. History of CVA. 4. Chronic renal failure, on hemodialysis. Continue current treatment. Patient awaiting transfer to skilled nursing. Prognosis remains poor. Consultation Date/Type/Reason Admit Date/Time Nov 08, 2016 at 10:56 Initial Consult Date 11/08/16 Type of Consultation: Pulmonary Referring Provider: GRACIE KATHLEEN 24 HR Interval Summary Free Text/Dictation Patient condition is stable. Remains awake. Does not follow any commands. Has remained hemodynamically stable. General exam; elderly male, on ventilator via tracheostomy currently in no distress. Exam/Review of Systems Vital Signs Vitals Vital Signs Date Time Temp Pulse Resp B/P Pulse Ox O2 Delivery O2 Flow Rate FiO2 11/22/16 10:00 99.1 91 20 95/53 100 11/22/16 09:20 30 11/22/16 06:00 Mechanical Ventilator Intake and Output 11/21/16 11/21/16 11/22/16 15:00 23:00 07:00 Intake Total 1070 ml 490 ml Output Total 1500 ml Balance -430 ml 490 ml Exam HEENT examined; supple neck, no JVD. No lymphadenopathy. Midline trachea. No thyromegaly. Colostomy in place with clean insertion site. Pupils are midsize and reactive to light. Chest exam; clear to auscultation. S1-S2 audible, no murmurs. Regular rhythm. Abdomen examination; soft, G-tube in place. Pulses are good. No organomegaly. Extremity exam; no peripheral edema. Patient has a well-healed left below-knee amputation. [employer] examination; patient is awake but does not follow any commands. Results Result Diagram: 11/21/16 0625 11/21/16 0625 Results 24 hrs Laboratory Tests Test 11/21/16 12:03 11/21/16 17:23 11/22/16 00:40 11/22/16 06:19 Bedside Glucose 188 106 171 177 Test 11/22/16 07:23 Bedside Glucose 142 Medications Medications Current Medications Lidocaine (Lidoderm) 1 patch DAILY TD Last administered on 11/22/16 09:15; Admin Dose 1 PATCH; Start 11/08/16 at 15:30 Acetaminophen (Tylenol Liquid) 325 mg Q4H PRN GTB MILD PAIN LEVEL 1-3 Last administered on 11/17/16 02:37; Admin Dose 325 MG; Start 11/08/16 at 15:30 Acetaminophen (Tylenol Liquid) 650 mg Q4H PRN GTB MODERATE PAIN LEVEL 4-6 Last administered on 11/21/16 20:54; Admin Dose 650 MG; Start 11/08/16 at 15:30 Ascorbic Acid (Vitamin C) 500 mg DAILY GTB Last administered on 11/22/16 09:14 ; Admin Dose 500 MG; Start 11/09/16 at 09:00 Atorvastatin Calcium (Lipitor) 40 mg QHS GTB Last administered on 11/21/16 20: 54; Admin Dose 40 MG; Start 11/08/16 at 21:00 Carvedilol (Coreg) 3.125 mg BID GTB Last administered on 11/21/16 20:54; Admin Dose 3.125 MG; Start 11/08/16 at 21:00 Duloxetine HCl (Cymbalta) 30 mg DAILY GTB Last administered on 11/22/16 09:13; Admin Dose 30 MG; Start 11/09/16 at 09:00 Fluticasone Propionate (Flonase 0.05% Nasal) 1 spray BID NASAL Last administered on 11/22/16 09:14; Admin Dose 1 SPRAY; Start 11/08/16 at 21:00 Insulin Glargine (Lantus) 10 unit DAILY SC Last administered on 11/22/16 10:48 ; Admin Dose 10 UNIT; Start 11/09/16 at 09:00 Lactobacillus Acidoph/Bulgaricus (Floranex) 1 tab DAILY GTB Last administered on 11/22/16 09:13; Admin Dose 1 TAB; Start 11/09/16 at 09:00 Sildenafil Citrate (Revatio) 20 mg BID GTB Last administered on 11/21/16 20:54 ; Admin Dose 20 MG; Start 11/08/16 at 21:00 Zinc Sulfate (Zinc Sulfate) 220 mg DAILY GTB Last administered on 11/22/16 09: 14; Admin Dose 220 MG; Start 11/09/16 at 09:00 Vitamin B Complex/ Vitamin C (Berocca) 1 cap DAILY GTB Last administered on 11/22 09:13; Admin Dose 1 CAP; Start 11/09/16 at 09:00 Miscellaneous Information 1 ea NOTE XX ; Start 11/08/16 at 16:00 Glucose (Glutose) 15 gm Q15M PRN PO DECREASED GLUCOSE; Start 11/08/16 at 16:00 Glucose (Glutose) 22.5 gm Q15M PRN PO DECREASED GLUCOSE; Start 11/08/16 at 16: 00 Dextrose (D50w Syringe) 25 ml Q15M PRN IV DECREASED GLUCOSE; Start 11/08/16 at 16:00 Dextrose (D50w Syringe) 50 ml Q15M PRN IV DECREASED GLUCOSE; Start 11/08/16 at 16:00 Glucagon (Glucagen) 1 mg Q15M PRN IM DECREASED GLUCOSE; Start 11/08/16 at 16:00 Glucose (Glutose) 15 gm Q15M PRN BUCCAL DECREASED GLUCOSE; Start 11/08/16 at 16 :00 Acetaminophen/ Hydrocodone Bitart ([place] (5/325)) 1 tab Q4H PRN PO SEVERE PAIN 7-10 Last administered on 11/16/16 14:59; Admin Dose 1 TAB; Start 11/08/16 at 21:00 Morphine Sulfate (morphine) 2 mg Q4H PRN IV PAIN LEVEL 7-10 Last administered on 11/21/16 23:20; Admin Dose 2 MG; Start 11/09/16 at 11:00 Collagenase (Santyl) 1 applic DAILY TOP Last administered on 11/22/16 09:15; Admin Dose 1 APPLIC; Start 11/09/16 at 16:00 Lorazepam (Ativan) 1 mg Q6H PRN IV AGITATION/ANXIETY Last administered on 01:42; Admin Dose 1 MG; Start 11/09/16 at 20:30 Pantoprazole (Protonix Iv) 40 mg BID@,18 IV Last administered on 11/22/16 05: 28; Admin Dose 40 MG; Start 11/10/16 at 06:00 Sodium Phosphate (Neutra-Phos) 250 mg BID GTB Last administered on 11/22/16 09: 13; Admin Dose 250 MG; Start 11/10/16 at 09:00 Insulin Aspart (Novolog Insulin Pen) NOVOLOG *MILD* ALGORI... Q6 SC Last administered on 11/22/16 06:23; Admin Dose 1 UNIT; Start 11/11/16 at 00:00 Calcium/Vitamin D ([place]yster [place]/ Vit-D (500/200)) 1 tab DAILY GTB Last administered on 11/22/16 09:14; Admin Dose 1 TAB; Start 11/12/16 at 11:00 Prochlorperazine (Compazine) 5 mg Q6H PRN GTB NAUSEA AND/OR VOMITING; Start 11/17/16 at 17:30 ELVI BLANK Nov 22, 2016 11:12
--- NOTE | 2016-11-22 14:31 | PN ---
Date/Time of Note Date/Time of Note DATE: 11/22/16 TIME: 14:29 Assessment/Plan VTE Prophylaxis VTE Prophylaxis Intervention: LMWH Lines/Catheters IV C[facility]ter Type (from [facility]): [facility] Urinary Cath still in place: No Assessment/Plan Assessment/Plan 1. Polymicrobial Urinary tract infection. - Continue antibiotics per ID. - per Dr. Ramirez in infection disease consultation. 2. Acute kidney injury on top of chronic kidney disease. Status post right nephrectomy. Left nephrolithiasis and renal cyst. - per in nephrology consultation. Continue to monitor BUN and creatinine. 3. Ventilator-dependent respiratory failure with tracheostomy. - per in pulmonary consultation. Continue bronchodilators and ventilatory support. 4. Multiple decubitus ulcers present on admission. Continue zinc sulfate, multivitamins and offloading and current wound care. 5. Cervical spine injury with paraplegia. 6. Bipolar disorder with psychosis. Continue patient on risperidone b.i.d. and Lexapro. 7. Iron deficiency anemia. Continue patient on iron supplements. 8. Neurogenic bladder with suprapubic catheter. 9. Dysphagia with PEG. - aspiration precautions Continue Lovenox for deep venous thrombosis prophylaxis and Protonix for peptic ulcer disease prophylaxis. Further recommendations based on clinical course. Plan of care discussed with Dr. Miramontes. Subjective 24 Hr Interval Summary Free Text/Dictation NAD, agitated a times per staff.SBP in 98 s. dw staff Subjective hx not possible: pt non-verbal Constitutional: requiring IVF Exam/Review of Systems Vital Signs Vitals Vital Signs Date Time Temp Pulse Resp B/P Pulse Ox O2 Delivery O2 Flow Rate FiO2 11/22/16 14:21 98.9 87 18 108/51 97 Room Air 11/22/16 11:25 30 Intake and Output 11/21/16 11/21/16 11/22/16 15:00 23:00 07:00 Intake Total 1070 ml 490 ml Output Total 1500 ml Balance -430 ml 490 ml Exam Psych: nl mood/affect Head: atraumatic Eyes: nl sclera ENMT: nl external ears & nose Neck: non-tender Respiratory: diminished breath sounds Cardiovascular: nl pulses Musculoskeletal: other Extremities: normal pulses Neurological: confused Skin: diaphoresis Lymph: nontender Results Result Diagram: 11/21/1662411/21/16624 Results 24 hrs Laboratory Tests Test 11/21/16:23 11/22/16 00:40 11/22/16 06:19 11/22/16 07:23 Bedside Glucose 106 171 177 142 Test 11/22/16 11:29 Bedside Glucose 173 Medications Medications Current Medications Lidocaine (Lidoderm) 1 patch DAILY TD Last administered on 11/22/16 09:15; Admin Dose 1 PATCH; Start 11/08/16 at 15:30 Acetaminophen (Tylenol Liquid) 325 mg Q4H PRN GTB MILD PAIN LEVEL 1-3 Last administered on 11/17/16 02:37; Admin Dose 325 MG; Start 11/08/16 at 15:30 Acetaminophen (Tylenol Liquid) 650 mg Q4H PRN GTB MODERATE PAIN LEVEL 4-6 Last administered on 11/21/16 20:54; Admin Dose 650 MG; Start 11/08/16 at 15:30 Ascorbic Acid (Vitamin C) 500 mg DAILY GTB Last administered on 11/22/16 09:14 ; Admin Dose 500 MG; Start 11/09/16 at 09:00 Atorvastatin Calcium (Lipitor) 40 mg QHS GTB Last administered on 11/21/16 20: 54; Admin Dose 40 MG; Start 11/08/16 at 21:00 Carvedilol (Coreg) 3.125 mg BID GTB Last administered on 11/21/16 20:54; Admin Dose 3.125 MG; Start 11/08/16 at 21:00 Duloxetine HCl (Cymbalta) 30 mg DAILY GTB Last administered on 11/22/16 09:13; Admin Dose 30 MG; Start 11/09/16 at 09:00 Fluticasone Propionate (Flonase 0.05% Nasal) 1 spray BID NASAL Last administered on 11/22/16 09:14; Admin Dose 1 SPRAY; Start 11/08/16 at 21:00 Insulin Glargine (Lantus) 10 unit DAILY SC Last administered on 11/22/16 10:48 ; Admin Dose 10 UNIT; Start 11/09/16 at 09:00 Lactobacillus Acidoph/Bulgaricus (Floranex) 1 tab DAILY GTB Last administered on 11/22/16 09:13; Admin Dose 1 TAB; Start 11/09/16 at 09:00 Sildenafil Citrate (Revatio) 20 mg BID GTB Last administered on 11/21/16 20:54 ; Admin Dose 20 MG; Start 11/08/16 at 21:00 Zinc Sulfate (Zinc Sulfate) 220 mg DAILY GTB Last administered on 11/22/16 09: 14; Admin Dose 220 MG; Start 11/09/16 at 09:00 Vitamin B Complex/ Vitamin C (Berocca) 1 cap DAILY GTB Last administered on 11/22 09:13; Admin Dose 1 CAP; Start 11/09/16 at 09:00 Miscellaneous Information 1 ea NOTE XX ; Start 11/08/16 at 16:00 Glucose (Glutose) 15 gm Q15M PRN PO DECREASED GLUCOSE; Start 11/08/16 at 16:00 Glucose (Glutose) 22.5 gm Q15M PRN PO DECREASED GLUCOSE; Start 11/08/16 at 16: 00 Dextrose (D50w Syringe) 25 ml Q15M PRN IV DECREASED GLUCOSE; Start 11/08/16 at 16:00 Dextrose (D50w Syringe) 50 ml Q15M PRN IV DECREASED GLUCOSE; Start 11/08/16 at 16:00 Glucagon (Glucagen) 1 mg Q15M PRN IM DECREASED GLUCOSE; Start 11/08/16 at 16:00 Glucose (Glutose) 15 gm Q15M PRN BUCCAL DECREASED GLUCOSE; Start 11/08/16 at 16 :00 Acetaminophen/ Hydrocodone Bitart ([place] (5/325)) 1 tab Q4H PRN PO SEVERE PAIN 7-10 Last administered on 11/16/16 14:59; Admin Dose 1 TAB; Start 11/08/16 at 21:00 Morphine Sulfate (morphine) 2 mg Q4H PRN IV PAIN LEVEL 7-10 Last administered on 11/21/16 23:20; Admin Dose 2 MG; Start 11/09/16 at 11:00 Collagenase (Santyl) 1 applic DAILY TOP Last administered on 11/22/16 09:15; Admin Dose 1 APPLIC; Start 11/09/16 at 16:00 Lorazepam (Ativan) 1 mg Q6H PRN IV AGITATION/ANXIETY Last administered on 01:42; Admin Dose 1 MG; Start 11/09/16 at 20:30 Pantoprazole (Protonix Iv) 40 mg BID@,18 IV Last administered on 11/22/16 05: 28; Admin Dose 40 MG; Start 11/10/16 at 06:00 Sodium Phosphate (Neutra-Phos) 250 mg BID GTB Last administered on 11/22/16 09: 13; Admin Dose 250 MG; Start 11/10/16 at 09:00 Insulin Aspart (Novolog Insulin Pen) NOVOLOG *MILD* ALGORI... Q6 SC Last administered on 11/22/16 11:37; Admin Dose 1 UNIT; Start 11/11/16 at 00:00 Calcium/Vitamin D (Oyster Shell/ Vit-D (500/200)) 1 tab DAILY GTB Last administered on 11/22/16 09:14; Admin Dose 1 TAB; Start 11/12/16 at 11:00 Prochlorperazine (Compazine) 5 mg Q6H PRN GTB NAUSEA AND/OR VOMITING; Start 11/17/16 at 17:30 GRACIE KATHLEEN Nov 22, 2016 14:31
--- NOTE | 2016-11-22 15:26 | CONS ---
Date/Time of Note Date/Time of Note DATE: 11/22/16 TIME: 15:25 Consult Date/Type/Reason Admit Date/Time Nov 08, 2016 at 10:56 Initial Consult Date 11/09/16 Type of Consultation: neph Ordering Provider: GRACIE KATHLEEN The patient is stable. No events overnight. No fevers, chills, nausea, vomiting. tolerated hd yesterday. poc reviewed with dr. sanders. OBJECTIVE: HEENT: Head is normocephalic. NECK: Supple. HEART: Regular rate. LUNGS: Show diminished breath sounds at base. ABDOMEN: Soft, nontender to palpation. No rebound or guarding. EXTREMITIES: Negative for clubbing, cyanosis, or edema. Positive BKA. DERMATOLOGIC: No rashes. MUSCULOSKELETAL: No joint effusions. NEUROLOGIC: No change in exam. Objective Vital Signs Date Time Temp Pulse Resp B/P Pulse Ox O2 Delivery O2 Flow Rate FiO2 11/22/16 14:21 98.9 87 18 108/51 97 Room Air 11/22/16 11:25 30 Intake and Output 11/21/16 11/21/16 11/22/16 15:00 23:00 07:00 Intake Total 1070 ml 490 ml Output Total 1500 ml Balance -430 ml 490 ml Results/Medications Result Diagram: 11/21/1625 11/21/16 0625 Results 24 hrs Laboratory Tests Test 11/21/16 17:23 11/22/16 00:40 11/22/16 06:19 11/22/16 07:23 Bedside Glucose 106 171 177 142 Test 11/22/16 11:29 Bedside Glucose 173 Medications Current Medications Lidocaine (Lidoderm) 1 patch DAILY TD Last administered on 11/22/16 09:15; Admin Dose 1 PATCH; Start 11/08/16 at 15:30 Acetaminophen (Tylenol Liquid) 325 mg Q4H PRN GTB MILD PAIN LEVEL 1-3 Last administered on 11/17/16 02:37; Admin Dose 325 MG; Start 11/08/16 at 15:30 Acetaminophen (Tylenol Liquid) 650 mg Q4H PRN GTB MODERATE PAIN LEVEL 4-6 Last administered on 11/21/16 20:54; Admin Dose 650 MG; Start 11/08/16 at 15:30 Ascorbic Acid (Vitamin C) 500 mg DAILY GTB Last administered on 11/22/16 09:14 ; Admin Dose 500 MG; Start 11/09/16 at 09:00 Atorvastatin Calcium (Lipitor) 40 mg QHS GTB Last administered on 11/21/16 20: 54; Admin Dose 40 MG; Start 11/08/16 at 21:00 Carvedilol (Coreg) 3.125 mg BID GTB Last administered on 11/21/16 20:54; Admin Dose 3.125 MG; Start 11/08/16 at 21:00 Duloxetine HCl (Cymbalta) 30 mg DAILY GTB Last administered on 11/22/16 09:13; Admin Dose 30 MG; Start 11/09/16 at 09:00 Fluticasone Propionate (Flonase 0.05% Nasal) 1 spray BID NASAL Last administered on 11/22/16 09:14; Admin Dose 1 SPRAY; Start 11/08/16 at 21:00 Insulin Glargine (Lantus) 10 unit DAILY SC Last administered on 11/22/16 10:48 ; Admin Dose 10 UNIT; Start 11/09/16 at 09:00 Lactobacillus Acidoph/Bulgaricus (Floranex) 1 tab DAILY GTB Last administered on 11/22/16 09:13; Admin Dose 1 TAB; Start 11/09/16 at 09:00 Sildenafil Citrate (Revatio) 20 mg BID GTB Last administered on 11/21/16 20:54 ; Admin Dose 20 MG; Start 11/08/16 at 21:00 Zinc Sulfate (Zinc Sulfate) 220 mg DAILY GTB Last administered on 11/22/16 09: 14; Admin Dose 220 MG; Start 11/09/16 at 09:00 Vitamin B Complex/ Vitamin C (Berocca) 1 cap DAILY GTB Last administered on 11/22 09:13; Admin Dose 1 CAP; Start 11/09/16 at 09:00 Miscellaneous Information 1 ea NOTE XX ; Start 11/08/16 at 16:00 Glucose (Glutose) 15 gm Q15M PRN PO DECREASED GLUCOSE; Start 11/08/16 at 16:00 Glucose (Glutose) 22.5 gm Q15M PRN PO DECREASED GLUCOSE; Start 11/08/16 at 16: 00 Dextrose (D50w Syringe) 25 ml Q15M PRN IV DECREASED GLUCOSE; Start 11/08/16 at 16:00 Dextrose (D50w Syringe) 50 ml Q15M PRN IV DECREASED GLUCOSE; Start 11/08/16 at 16:00 Glucagon (Glucagen) 1 mg Q15M PRN IM DECREASED GLUCOSE; Start 11/08/16 at 16:00 Glucose (Glutose) 15 gm Q15M PRN BUCCAL DECREASED GLUCOSE; Start 11/08/16 at 16 :00 Acetaminophen/ Hydrocodone Bitart ([place] (5/325)) 1 tab Q4H PRN PO SEVERE PAIN 7-10 Last administered on 11/16/16 14:59; Admin Dose 1 TAB; Start 11/08/16 at 21:00 Morphine Sulfate (morphine) 2 mg Q4H PRN IV PAIN LEVEL 7-10 Last administered on 11/21/16 23:20; Admin Dose 2 MG; Start 11/09/16 at 11:00 Collagenase (Santyl) 1 applic DAILY TOP Last administered on 11/22/16 09:15; Admin Dose 1 APPLIC; Start 11/09/16 at 16:00 Lorazepam (Ativan) 1 mg Q6H PRN IV AGITATION/ANXIETY Last administered on 01:42; Admin Dose 1 MG; Start 11/09/16 at 20:30 Pantoprazole (Protonix Iv) 40 mg BID@06,18 IV Last administered on 11/22/16 05: 28; Admin Dose 40 MG; Start 11/10/16 at 06:00 Sodium Phosphate (Neutra-Phos) 250 mg BID GTB Last administered on 11/22/16 09: 13; Admin Dose 250 MG; Start 11/10/16 at 09:00 Insulin Aspart (Novolog Insulin Pen) NOVOLOG *MILD* ALGORI... Q6 SC Last administered on 11/22/16 11:37; Admin Dose 1 UNIT; Start 11/11/16 at 00:00 Calcium/Vitamin D (Oyster Shell/ Vit-D (500/200)) 1 tab DAILY GTB Last administered on 11/22/16 09:14; Admin Dose 1 TAB; Start 11/12/16 at 11:00 Prochlorperazine 5 mg 5 mg Q6H PRN GTB NAUSEA AND/OR VOMITING; Start 11/17/16 at 17:30 Sodium Chloride (1/2 NS) 1,000 ml @ 40 mls/hr Q24H IV ; Start 11/22/16 at 15:00 Assessment/Plan Chief Complaint/Hosp Course ASSESSMENT AND PLAN: 1. End-stage renal disease. The patient is scheduled for hemodialysis qod. assess daily for hd needs. all meds dosed ok. Will dialyze for 3 hours on a 2K bath, calcium 2.5. 2. Anemia of chronic disease. Continue to monitor H and H levels. Will give Epogen as needed. 3. Mineral bone disorder. Continue to monitor calcium and phosphorus levels. Continue Neutra-Phos. 4. Volume overload, clinically improving. Continue ultrafiltration with dialysis. 5. Sepsis secondary to pneumonia. The patient has completed antibiotic course. Continue to monitor. 6. Ventilatory-dependent respiratory failure. Vent settings were reviewed. Continue to monitor. Follow up with pulmonary. 7. Dysphagia, status post percutaneous endoscopic gastrostomy. Continue tube feeds. 8. Coronary artery disease. Continue current medical management. 9. Diabetes. Continue Accu-Cheks and sliding scale. 10. Status post gastrointestinal bleed. 11. Depression and anxiety disorder. Continue current treatment plan. 12. Hypertension. Continue to monitor closely. Minimize ultrafiltration. 13. History of congestive heart failure. Continue medical management. Problems: SOBIA MENDEZ MD Nov 22, 2016 15:26
[2016-11-22] MEDS: SOD CHLORIDE 0.45% 1,000 ML IV SCH (15:58)
[2016-11-22] MEDS: morphine 2 MG INJ IV PRN (17:20)
[2016-11-22] MEDS: ATORVASTATIN 40 MG TAB GTB SCH (20:57)
[2016-11-23] VITALS (38 sets, daily range): BP systolic 61–119; BP diastolic 40–90; PULSE 71–101; RESP 14–26
[2016-11-23] MEDS: PANTOPRAZOLE 40 MG INJ IV SCH ×2 (06:09→17:21)
[2016-11-23] MEDS: INSULIN ASPART [NOVOLOG] 3 ML PEN SC SCH ×4 (06:32→21:00)
[2016-11-23 07:08] LABS: ADD SCAN DIFF NO
[2016-11-23 07:14] LABS: BASOPHILS % 0.3 % (0.0-2.0); EOSINOPHILS # 0.2 10^3/ul (0.0-0.5); EOSINOPHILS % 1.7 % (0.0-7.0); HEMATOCRIT 32.7 % (42.0-52.0); HEMOGLOBIN 10.1 g/dl (14.0-18.0); LYMPHOCYTES # 0.9 10^3/ul (0.8-2.9); LYMPHOCYTES % 7.4 % (15.0-51.0); MEAN CORPUSCULAR HEMOGLOBIN 30.7 pg (29.0-33.0); MEAN CORPUSCULAR HGB CONC 30.9 g/dl (32.0-37.0); MEAN CORPUSCULAR VOLUME 99.4 fl (82.0-101.0); MEAN PLATELET VOLUME 10.1 fl (7.4-10.4); MONOCYTE # 1.1 10^3/ul (0.3-0.9); MONOCYTES % 9.4 % (0.0-11.0); NEUTROPHIL # 9.2 10^3/ul (1.6-7.5); NEUTROPHILS % 80.6 % (39.0-77.0); PLATELET COUNT 181 10^3/UL (140-415); RED BLOOD COUNT 3.29 10^6/ul (4.70-6.10); RED CELL DISTRIBUTION WIDTH 19.1 % (11.5-14.5); WHITE BLOOD COUNT 11.5 10^3/ul (4.8-10.8)
[2016-11-23 07:40] LABS: CALCIUM 7.6 mg/dl (8.4-10.2); CREATININE 3.22 mg/dl (0.61-1.24); POTASSIUM 4.8 mmol/L (3.5-5.1)
[2016-11-23] MEDS: ZINC SULFATE 220 MG CAP GTB SCH (09:09)
[2016-11-23] MEDS: DULOXETINE 30 MG CAP DR GTB SCH (09:09)
[2016-11-23] MEDS: LIDOCAINE 5% PATCH TD SCH (09:09)
[2016-11-23] MEDS: ASCORBIC ACID 500 MG TAB GTB SCH (09:09)
[2016-11-23] MEDS: NEUTRA-PHOS 250 MG PACKET GTB SCH ×2 (09:10→21:55)
[2016-11-23] MEDS: LACTOBACILLUS CHEW TAB GTB SCH (09:10)
[2016-11-23] MEDS: VITAMIN B COMPLEX/VIT C CAP GTB SCH (09:10)
[2016-11-23] MEDS: SILDENAFIL 20 MG TAB GTB SCH ×2 (09:10→21:00)
[2016-11-23] MEDS: CALCIUM/VITAMIN D (500/200) TAB GTB SCH (09:10)
[2016-11-23] MEDS: FLUTICASONE 0.05% 16 GM NAS SPRAY NASAL SCH ×2 (09:10→21:55)
[2016-11-23] MEDS: INSULIN GLARGINE [LANtus] 3 ML PEN SC SCH (09:12)
[2016-11-23] MEDS: COLLAGENASE 30 GM TUBE TOP SCH (09:14)
--- NOTE | 2016-11-23 12:56 | CONS ---
Date/Time of Note Date/Time of Note DATE: 11/23/16 TIME: 12:50 Assessment/Plan Assessment/Plan Chief Complaint/Hosp Course - sepsis - h/o GIB - ascites, s/p paracentesis on 11/14/2016; not consistent with SBP. Took empiric cefepime (11/12/16-11/17/16) and metronidazole (10/14/2016-11/17/16) - near complete collapse of RLL with LLL atelectasis, pulmonary edema - h/o severe C diff colitis in 2016 - ESRD on HD - VDRF with trach - G tube dependence - PVD - s/p L BKA - abdominal pain - Abd X-ray 11/16/16 shows no e/o obstruction - MRSA nasal colonization, completed mupirocin for 10 days recommendations - ordered: respiratory culture and CXR, two sets of blood cultures from dialysis access today - will monitor off antibiotics at this time management d/w Pt's RN Problems: Consultation Date/Type/Reason Admit Date/Time Nov 08, 2016 at 10:56 Initial Consult Date 11/09/16 Type of Consultation: ID Referring Provider: GRACIE KATHLEEN 24 HR Interval Summary Subjective hx not possible: pt non-verbal Detailed Summary Respiratory: no complaints, other (on vent) Cardiovascular: No chest pain Gastrointestinal: pain (unchanged) Genitourinary: other (anuric) Exam/Review of Systems Vital Signs Vitals Vital Signs Date Time Temp Pulse Resp B/P Pulse Ox O2 Delivery O2 Flow Rate FiO2 11/23/16 12:18 88 11/23/16 12:00 18 119/46 98 Mechanical Ventilator 11/23/16 11:53 98.0 11/23/16 09:40 30 Intake and Output 11/22/16 11/22/16 11/23/16 15:00 23:00 07:00 Intake Total 570 ml 1070 ml Balance 570 ml 1070 ml Exam Constitutional: frail, non-verbal Psych: confusion Head: atraumatic, normocephalic Eyes: nl conjunctiva, nl lids, nl sclera ENMT: nl external ears & nose, nl nasal mucosa & septum Neck: other (trach) Respiratory: crackles/rales Cardiovascular: nl pulses, regular rate and rhythm Gastrointestinal: non-tender, other (GT), soft Musculoskeletal: nl extremities to inspection Extremities: edema (RLE), other (s/p L BKA) Skin: laceration (RLE and R foot) Results Result Diagram: 11/23/16 0620 11/23/16 0620 Results 24 hrs Laboratory Tests Test 11/22/16 17:12 11/22/16 23:08 11/23/16 06:11 11/23/16 06:20 Bedside Glucose 127 132 191 White Blood Count 11.5 H Red Blood Count 3.29 L Hemoglobin 10.1 L Hematocrit 32.7 L Mean Corpuscular Volume 99.4 Mean Corpuscular Hemoglobin 30.7 Mean Corpuscular Hemoglobin Concent 30.9 L Red Cell Distribution Width 19.1 H Platelet Count 181 Mean Platelet Volume 10.1 Neutrophils % 80.6 H Lymphocytes % 7.4 L Monocytes % 9.4 Eosinophils % 1.7 Basophils % 0.3 Nucleated Red Blood Cells % 0.0 Neutrophils # 9.2 H Lymphocytes # 0.9 Monocytes # 1.1 H Eosinophils # 0.2 Basophils # 0.0 Nucleated Red Blood Cells # 0.0 Sodium Level 138 Potassium Level 4.8 Chloride Level 102 Carbon Dioxide Level 26 Anion Gap 15 Blood Urea Nitrogen 56 H Creatinine 3.22 H Glucose Level 181 Calcium Level 7.6 L Test 11/23/16 09:13 11/23/16 12:06 Bedside Glucose 219 223 H Medications Medications Current Medications Lidocaine (Lidoderm) 1 patch DAILY TD Last administered on 11/23/16 09:09; Admin Dose 1 PATCH; Start 11/08/16 at 15:30 Acetaminophen (Tylenol Liquid) 325 mg Q4H PRN GTB MILD PAIN LEVEL 1-3 Last administered on 11/17/16 02:37; Admin Dose 325 MG; Start 11/08/16 at 15:30 Acetaminophen (Tylenol Liquid) 650 mg Q4H PRN GTB MODERATE PAIN LEVEL 4-6 Last administered on 11/21/16 20:54; Admin Dose 650 MG; Start 11/08/16 at 15:30 Ascorbic Acid (Vitamin C) 500 mg DAILY GTB Last administered on 11/23/16 09:09 ; Admin Dose 500 MG; Start 11/09/16 at 09:00 Atorvastatin Calcium (Lipitor) 40 mg QHS GTB Last administered on 11/22/16 20: 57; Admin Dose 40 MG; Start 11/08/16 at 21:00 Carvedilol (Coreg) 3.125 mg BID GTB Last administered on 11/21/16 20:54; Admin Dose 3.125 MG; Start 11/08/16 at 21:00 Duloxetine HCl (Cymbalta) 30 mg DAILY GTB Last administered on 11/23/16 09:09; Admin Dose 30 MG; Start 11/09/16 at 09:00 Fluticasone Propionate (Flonase 0.05% Nasal) 1 spray BID NASAL Last administered on 11/23/16 09:10; Admin Dose 1 SPRAY; Start 11/08/16 at 21:00 Insulin Glargine (Lantus) 10 unit DAILY SC Last administered on 11/23/16 09:12 ; Admin Dose 10 UNIT; Start 11/09/16 at 09:00 Lactobacillus Acidoph/Bulgaricus (Floranex) 1 tab DAILY GTB Last administered on 11/23/16 09:10; Admin Dose 1 TAB; Start 11/09/16 at 09:00 Sildenafil Citrate (Revatio) 20 mg BID GTB Last administered on 11/23/16 09:10 ; Admin Dose 20 MG; Start 11/08/16 at 21:00 Zinc Sulfate (Zinc Sulfate) 220 mg DAILY GTB Last administered on 11/23/16 09: 09; Admin Dose 220 MG; Start 11/09/16 at 09:00 Vitamin B Complex/ Vitamin C (Berocca) 1 cap DAILY GTB Last administered on 11/23 09:10; Admin Dose 1 CAP; Start 11/09/16 at 09:00 Miscellaneous Information 1 ea NOTE XX ; Start 11/08/16 at 16:00 Glucose (Glutose) 15 gm Q15M PRN PO DECREASED GLUCOSE; Start 11/08/16 at 16:00 Glucose (Glutose) 22.5 gm Q15M PRN PO DECREASED GLUCOSE; Start 11/08/16 at 16: 00 Dextrose (D50w Syringe) 25 ml Q15M PRN IV DECREASED GLUCOSE; Start 11/08/16 at 16:00 Dextrose (D50w Syringe) 50 ml Q15M PRN IV DECREASED GLUCOSE; Start 11/08/16 at 16:00 Glucagon (Glucagen) 1 mg Q15M PRN IM DECREASED GLUCOSE; Start 11/08/16 at 16:00 Glucose (Glutose) 15 gm Q15M PRN BUCCAL DECREASED GLUCOSE; Start 11/08/16 at 16 :00 Acetaminophen/ Hydrocodone Bitart ([place] (5/325)) 1 tab Q4H PRN PO SEVERE PAIN 7-10 Last administered on 11/16/16 14:59; Admin Dose 1 TAB; Start 11/08/16 at 21:00 Morphine Sulfate (morphine) 2 mg Q4H PRN IV PAIN LEVEL 7-10 Last administered on 11/22/16 17:20; Admin Dose 2 MG; Start 11/09/16 at 11:00 Collagenase (Santyl) 1 applic DAILY TOP Last administered on 11/23/16 09:14; Admin Dose 1 APPLIC; Start 11/09/16 at 16:00 Lorazepam (Ativan) 1 mg Q6H PRN IV AGITATION/ANXIETY Last administered on 01:42; Admin Dose 1 MG; Start 11/09/16 at 20:30 Pantoprazole (Protonix Iv) 40 mg BID@06,18 IV Last administered on 11/23/16 06: 09; Admin Dose 40 MG; Start 11/10/16 at 06:00 Sodium Phosphate (Neutra-Phos) 250 mg BID GTB Last administered on 11/23/16 09: 10; Admin Dose 250 MG; Start 11/10/16 at 09:00 Insulin Aspart (Novolog Insulin Pen) NOVOLOG *MILD* ALGORI... Q6 SC Last administered on 11/23/16 12:08; Admin Dose 3 UNIT; Start 11/11/16 at 00:00 Calcium/Vitamin D (Oyster Shell/ Vit-D (500/200)) 1 tab DAILY GTB Last administered on 11/23/16 09:10; Admin Dose 1 TAB; Start 11/12/16 at 11:00 Prochlorperazine 5 mg 5 mg Q6H PRN GTB NAUSEA AND/OR VOMITING; Start 11/17/16 at 17:30 Sodium Chloride (1/2 NS) 1,000 ml @ 40 mls/hr Q24H IV Last administered on 11/22 15:58; Admin Dose 40 MLS/HR; Start 11/22/16 at 15:00 SADIA LONDON M.D. Nov 23, 2016 12:56
--- NOTE | 2016-11-23 13:11 | PN ---
Date/Time of Note Date/Time of Note DATE: 11/23/16 TIME: 13:09 Assessment/Plan VTE Prophylaxis VTE Prophylaxis Intervention: SCD's Lines/Catheters [facility] Urinary Cath still in place: No Assessment/Plan Chief Complaint/Hosp Course Assessment/Plan - Esophagitis per EGD. Continue Protonix Dr. Hernandez is following in gastroenterology consultation. - Anemia of chronic disease, on Epogen, continue to monitor hemoglobin and hematocrit, transfuse as needed. - Ascites, SBP ruled out, Status post paracentesis 11/14,ascitic fluid culture negative. - Systemic inflammatory response syndrome with leukocytosis, patient is followed by Dr. Benjamin deluna in infection disease consultation. - End-stage renal disease, hemodialysis dependent. Continue hemodialysis per nephrology. - Chronic respiratory failure with tracheostomy. Dr. Sahu is following in pulmonology consultation. - Coronary artery disease with history of PCI. - Diastolic congestive heart failure - Pulmonary hypertension - Peripheral vascular disease, status post left BKA. - Diabetes mellitus type 2, continue NovoLog per sliding scale. - Sacral decub present on admission. Continue current wound care. D/C planning Problems: Subjective 24 Hr Interval Summary Free Text/Dictation Patient remains afebrile, tolerates current G-tube feeding well. Exam/Review of Systems Vital Signs Vitals Vital Signs Date Time Temp Pulse Resp B/P Pulse Ox O2 Delivery O2 Flow Rate FiO2 11/23/16 12:18 88 11/23/16 12:00 18 119/46 98 Mechanical Ventilator 11/23/16 11:53 98.0 11/23/16 09:40 30 Intake and Output 11/22/16 11/22/16 11/23/16 15:00 23:00 07:00 Intake Total 570 ml 1070 ml Balance 570 ml 1070 ml Exam GENERAL: Well-developed, well-nourished male, currently on vent support. HEENT: Head is atraumatic, normocephalic. PERRLA. NECK: Supple. Tracheostomy at the base of the neck. LUNGS: Slightly diminished at the bases. Clear in the upper lobes. HEART: Normal S1, S2. No murmurs, gallops, clicks, rubs noted. ABDOMEN: Protuberant, soft, nondistended, nontender. G-tube in place. EXTREMITIES: The patient is status post left BKA. Right lower extremity with mild edema. The patient has a left upper extremity arteriovenous fistula with palpable thrill and audible bruit. SKIN: No rash, petechiae noted. Sacral decubitus ulcer. NEUROLOGIC: The patient is awake, alert. Results Result Diagram: 11/23/16 0620 11/23/16 0620 Results 24 hrs Laboratory Tests Test 11/22/16 17:12 11/22/16 23:08 11/23/16 06:11 11/23/16 06:20 Bedside Glucose 127 132 191 White Blood Count 11.5 H Red Blood Count 3.29 L Hemoglobin 10.1 L Hematocrit 32.7 L Mean Corpuscular Volume 99.4 Mean Corpuscular Hemoglobin 30.7 Mean Corpuscular Hemoglobin Concent 30.9 L Red Cell Distribution Width 19.1 H Platelet Count 181 Mean Platelet Volume 10.1 Neutrophils % 80.6 H Lymphocytes % 7.4 L Monocytes % 9.4 Eosinophils % 1.7 Basophils % 0.3 Nucleated Red Blood Cells % 0.0 Neutrophils # 9.2 H Lymphocytes # 0.9 Monocytes # 1.1 H Eosinophils # 0.2 Basophils # 0.0 Nucleated Red Blood Cells # 0.0 Sodium Level 138 Potassium Level 4.8 Chloride Level 102 Carbon Dioxide Level 26 Anion Gap 15 Blood Urea Nitrogen 56 H Creatinine 3.22 H Glucose Level 181 Calcium Level 7.6 L Test 11/23/16 09:13 11/23/16 12:06 Bedside Glucose 219 223 H Medications Medications Current Medications Lidocaine (Lidoderm) 1 patch DAILY TD Last administered on 11/23/16 09:09; Admin Dose 1 PATCH; Start 11/08/16 at 15:30 Acetaminophen (Tylenol Liquid) 325 mg Q4H PRN GTB MILD PAIN LEVEL 1-3 Last administered on 11/17/16 02:37; Admin Dose 325 MG; Start 11/08/16 at 15:30 Acetaminophen (Tylenol Liquid) 650 mg Q4H PRN GTB MODERATE PAIN LEVEL 4-6 Last administered on 11/21/16 20:54; Admin Dose 650 MG; Start 11/08/16 at 15:30 Ascorbic Acid (Vitamin C) 500 mg DAILY GTB Last administered on 11/23/16 09:09 ; Admin Dose 500 MG; Start 11/09/16 at 09:00 Atorvastatin Calcium (Lipitor) 40 mg QHS GTB Last administered on 11/22/16 20: 57; Admin Dose 40 MG; Start 11/08/16 at 21:00 Carvedilol (Coreg) 3.125 mg BID GTB Last administered on 11/21/16 20:54; Admin Dose 3.125 MG; Start 11/08/16 at 21:00 Duloxetine HCl (Cymbalta) 30 mg DAILY GTB Last administered on 11/23/16 09:09; Admin Dose 30 MG; Start 11/09/16 at 09:00 Fluticasone Propionate (Flonase 0.05% Nasal) 1 spray BID NASAL Last administered on 11/23/16 09:10; Admin Dose 1 SPRAY; Start 11/08/16 at 21:00 Insulin Glargine (Lantus) 10 unit DAILY SC Last administered on 11/23/16 09:12 ; Admin Dose 10 UNIT; Start 11/09/16 at 09:00 Lactobacillus Acidoph/Bulgaricus (Floranex) 1 tab DAILY GTB Last administered on 11/23/16 09:10; Admin Dose 1 TAB; Start 11/09/16 at 09:00 Sildenafil Citrate (Revatio) 20 mg BID GTB Last administered on 11/23/16 09:10 ; Admin Dose 20 MG; Start 11/08/16 at 21:00 Zinc Sulfate (Zinc Sulfate) 220 mg DAILY GTB Last administered on 11/23/16 09: 09; Admin Dose 220 MG; Start 11/09/16 at 09:00 Vitamin B Complex/ Vitamin C (Berocca) 1 cap DAILY GTB Last administered on 11/23 09:10; Admin Dose 1 CAP; Start 11/09/16 at 09:00 Miscellaneous Information 1 ea NOTE XX ; Start 11/08/16 at 16:00 Glucose (Glutose) 15 gm Q15M PRN PO DECREASED GLUCOSE; Start 11/08/16 at 16:00 Glucose (Glutose) 22.5 gm Q15M PRN PO DECREASED GLUCOSE; Start 11/08/16 at 16: 00 Dextrose (D50w Syringe) 25 ml Q15M PRN IV DECREASED GLUCOSE; Start 11/08/16 at 16:00 Dextrose (D50w Syringe) 50 ml Q15M PRN IV DECREASED GLUCOSE; Start 11/08/16 at 16:00 Glucagon (Glucagen) 1 mg Q15M PRN IM DECREASED GLUCOSE; Start 11/08/16 at 16:00 Glucose (Glutose) 15 gm Q15M PRN BUCCAL DECREASED GLUCOSE; Start 11/08/16 at 16 :00 Acetaminophen/ Hydrocodone Bitart ([place] (5/325)) 1 tab Q4H PRN PO SEVERE PAIN 7-10 Last administered on 11/16/16 14:59; Admin Dose 1 TAB; Start 11/08/16 at 21:00 Morphine Sulfate (morphine) 2 mg Q4H PRN IV PAIN LEVEL 7-10 Last administered on 11/22/16 17:20; Admin Dose 2 MG; Start 11/09/16 at 11:00 Collagenase (Santyl) 1 applic DAILY TOP Last administered on 11/23/16 09:14; Admin Dose 1 APPLIC; Start 11/09/16 at 16:00 Lorazepam (Ativan) 1 mg Q6H PRN IV AGITATION/ANXIETY Last administered on 01:42; Admin Dose 1 MG; Start 11/09/16 at 20:30 Pantoprazole (Protonix Iv) 40 mg BID@06,18 IV Last administered on 11/23/16 06: 09; Admin Dose 40 MG; Start 11/10/16 at 06:00 Sodium Phosphate (Neutra-Phos) 250 mg BID GTB Last administered on 11/23/16 09: 10; Admin Dose 250 MG; Start 11/10/16 at 09:00 Insulin Aspart (Novolog Insulin Pen) NOVOLOG *MILD* ALGORI... Q6 SC Last administered on 11/23/16 12:08; Admin Dose 3 UNIT; Start 11/11/16 at 00:00 Calcium/Vitamin D (Oyster Shell/ Vit-D (500/200)) 1 tab DAILY GTB Last administered on 11/23/16 09:10; Admin Dose 1 TAB; Start 11/12/16 at 11:00 Prochlorperazine 5 mg 5 mg Q6H PRN GTB NAUSEA AND/OR VOMITING; Start 11/17/16 at 17:30 Sodium Chloride (1/2 NS) 1,000 ml @ 40 mls/hr Q24H IV Last administered on 11/22 15:58; Admin Dose 40 MLS/HR; Start 11/22/16 at 15:00 MARY DOMINGUEZ Nov 23, 2016 13:11
--- NOTE | 2016-11-23 14:11 | CONS ---
Date/Time of Note Date/Time of Note DATE: 11/23/16 TIME: 14:09 Assessment/Plan Assessment/Plan Additional Assessment/Plan Paroxysmal atrial tachycardia Possible GI bleed Respiratory failure status post tracheostomy Diastolic congestive heart failure End-stage renal disease on hemodialysis CAD with history of PCI Diabetes Peripheral arterial disease with history of amputation Pulmonary hypertension Hypotension, improved -occasional low BP, holding parameters on coreg and sildenafil. Fluid management via hemodialysis as per our nephrology colleagues. No new cardiac orders at the current time. Consultation Date/Type/Reason Admit Date/Time Nov 08, 2016 at 10:56 Initial Consult Date 11/09/16 Type of Consultation: cv Referring Provider: GRACIE KATHLEEN 24 HR Interval Summary Free Text/Dictation Patient seen and examined, denies chest pain or shortness of breath Exam/Review of Systems Vital Signs Vitals Vital Signs Date Time Temp Pulse Resp B/P Pulse Ox O2 Delivery O2 Flow Rate FiO2 11/23/16 13:30 86 11/23/16 13:14 26 98 30 11/23/16 12:00 119/46 Mechanical Ventilator 11/23/16 11:53 98.0 Intake and Output 11/22/16 11/22/16 11/23/16 15:00 23:00 07:00 Intake Total 570 ml 1070 ml Balance 570 ml 1070 ml Exam No apparent distress Constitutional: alert, oriented Head: normocephalic Neck: other (Tracheostomy) Respiratory: other (Coarse breath sounds bilaterally, no wheezing) Cardiovascular: other (S1-S2 heard), regular rate and rhythm Gastrointestinal: bowel sounds, non-tender, soft Extremities: edema Results Result Diagram: 11/23/16 0620 11/23/16 0620 Results 24 hrs Laboratory Tests Test 11/22/16 17:12 11/22/16 23:08 11/23/16 06:11 11/23/16 06:20 Bedside Glucose 127 132 191 White Blood Count 11.5 H Red Blood Count 3.29 L Hemoglobin 10.1 L Hematocrit 32.7 L Mean Corpuscular Volume 99.4 Mean Corpuscular Hemoglobin 30.7 Mean Corpuscular Hemoglobin Concent 30.9 L Red Cell Distribution Width 19.1 H Platelet Count 181 Mean Platelet Volume 10.1 Neutrophils % 80.6 H Lymphocytes % 7.4 L Monocytes % 9.4 Eosinophils % 1.7 Basophils % 0.3 Nucleated Red Blood Cells % 0.0 Neutrophils # 9.2 H Lymphocytes # 0.9 Monocytes # 1.1 H Eosinophils # 0.2 Basophils # 0.0 Nucleated Red Blood Cells # 0.0 Sodium Level 138 Potassium Level 4.8 Chloride Level 102 Carbon Dioxide Level 26 Anion Gap 15 Blood Urea Nitrogen 56 H Creatinine 3.22 H Glucose Level 181 Calcium Level 7.6 L Test 11/23/16 09:13 11/23/16 12:06 Bedside Glucose 219 223 H Medications Medications Current Medications Lidocaine (Lidoderm) 1 patch DAILY TD Last administered on 11/23/16 09:09; Admin Dose 1 PATCH; Start 11/08/16 at 15:30 Acetaminophen (Tylenol Liquid) 325 mg Q4H PRN GTB MILD PAIN LEVEL 1-3 Last administered on 11/17/16 02:37; Admin Dose 325 MG; Start 11/08/16 at 15:30 Acetaminophen (Tylenol Liquid) 650 mg Q4H PRN GTB MODERATE PAIN LEVEL 4-6 Last administered on 11/21/16 20:54; Admin Dose 650 MG; Start 11/08/16 at 15:30 Ascorbic Acid (Vitamin C) 500 mg DAILY GTB Last administered on 11/23/16 09:09 ; Admin Dose 500 MG; Start 11/09/16 at 09:00 Atorvastatin Calcium (Lipitor) 40 mg QHS GTB Last administered on 11/22/16 20: 57; Admin Dose 40 MG; Start 11/08/16 at 21:00 Carvedilol (Coreg) 3.125 mg BID GTB Last administered on 11/21/16 20:54; Admin Dose 3.125 MG; Start 11/08/16 at 21:00 Duloxetine HCl (Cymbalta) 30 mg DAILY GTB Last administered on 11/23/16 09:09; Admin Dose 30 MG; Start 11/09/16 at 09:00 Fluticasone Propionate (Flonase 0.05% Nasal) 1 spray BID NASAL Last administered on 11/23/16 09:10; Admin Dose 1 SPRAY; Start 11/08/16 at 21:00 Insulin Glargine (Lantus) 10 unit DAILY SC Last administered on 11/23/16 09:12 ; Admin Dose 10 UNIT; Start 11/09/16 at 09:00 Lactobacillus Acidoph/Bulgaricus (Floranex) 1 tab DAILY GTB Last administered on 11/23/16 09:10; Admin Dose 1 TAB; Start 11/09/16 at 09:00 Sildenafil Citrate (Revatio) 20 mg BID GTB Last administered on 11/23/16 09:10 ; Admin Dose 20 MG; Start 11/08/16 at 21:00 Zinc Sulfate (Zinc Sulfate) 220 mg DAILY GTB Last administered on 11/23/16 09: 09; Admin Dose 220 MG; Start 11/09/16 at 09:00 Vitamin B Complex/ Vitamin C (Berocca) 1 cap DAILY GTB Last administered on 11/23 09:10; Admin Dose 1 CAP; Start 11/09/16 at 09:00 Miscellaneous Information 1 ea NOTE XX ; Start 11/08/16 at 16:00 Glucose (Glutose) 15 gm Q15M PRN PO DECREASED GLUCOSE; Start 11/08/16 at 16:00 Glucose (Glutose) 22.5 gm Q15M PRN PO DECREASED GLUCOSE; Start 11/08/16 at 16: 00 Dextrose (D50w Syringe) 25 ml Q15M PRN IV DECREASED GLUCOSE; Start 11/08/16 at 16:00 Dextrose (D50w Syringe) 50 ml Q15M PRN IV DECREASED GLUCOSE; Start 11/08/16 at 16:00 Glucagon (Glucagen) 1 mg Q15M PRN IM DECREASED GLUCOSE; Start 11/08/16 at 16:00 Glucose (Glutose) 15 gm Q15M PRN BUCCAL DECREASED GLUCOSE; Start 11/08/16 at 16 :00 Acetaminophen/ Hydrocodone Bitart ([place] (5/325)) 1 tab Q4H PRN PO SEVERE PAIN 7-10 Last administered on 11/16/16 14:59; Admin Dose 1 TAB; Start 11/08/16 at 21:00 Morphine Sulfate (morphine) 2 mg Q4H PRN IV PAIN LEVEL 7-10 Last administered on 11/22/16 17:20; Admin Dose 2 MG; Start 11/09/16 at 11:00 Collagenase (Santyl) 1 applic DAILY TOP Last administered on 11/23/16 09:14; Admin Dose 1 APPLIC; Start 11/09/16 at 16:00 Lorazepam (Ativan) 1 mg Q6H PRN IV AGITATION/ANXIETY Last administered on 01:42; Admin Dose 1 MG; Start 11/09/16 at 20:30 Pantoprazole (Protonix Iv) 40 mg BID@06,18 IV Last administered on 11/23/16 06: 09; Admin Dose 40 MG; Start 11/10/16 at 06:00 Sodium Phosphate (Neutra-Phos) 250 mg BID GTB Last administered on 11/23/16 09: 10; Admin Dose 250 MG; Start 11/10/16 at 09:00 Insulin Aspart (Novolog Insulin Pen) NOVOLOG *MILD* ALGORI... Q6 SC Last administered on 11/23/16 12:08; Admin Dose 3 UNIT; Start 11/11/16 at 00:00 Calcium/Vitamin D (Oyster Shell/ Vit-D (500/200)) 1 tab DAILY GTB Last administered on 11/23/16 09:10; Admin Dose 1 TAB; Start 11/12/16 at 11:00 Prochlorperazine 5 mg 5 mg Q6H PRN GTB NAUSEA AND/OR VOMITING; Start 11/17/16 at 17:30 Sodium Chloride (1/2 NS) 1,000 ml @ 40 mls/hr Q24H IV Last administered on 11/22 15:58; Admin Dose 40 MLS/HR; Start 11/22/16 at 15:00 Solo Leon DO Nov 23, 2016 14:11
--- NOTE | 2016-11-23 14:29 | PN ---
Date/Time of Note Date/Time of Note DATE: 11/23/16 TIME: 14:28 Assessment/Plan VTE Prophylaxis VTE Prophylaxis Intervention: other Lines/Catheters IV C[facility]ter Type (from [facility]): [facility] Urinary Cath still in place: No Assessment/Plan Assessment/Plan 1. End-stage renal disease. The patient is scheduled for hemodialysis qod. assess daily for hd needs. all meds dosed ok. Will dialyze for 3 hours on a 2K bath, calcium 2.5. 2. Anemia of chronic disease. Continue to monitor H and H levels. Will give Epogen as needed. 3. Mineral bone disorder. Continue to monitor calcium and phosphorus levels. Continue Neutra-Phos. 4. Volume overload, clinically improving. Continue ultrafiltration with dialysis. 5. Sepsis secondary to pneumonia. The patient has completed antibiotic course. Continue to monitor. 6. Ventilatory-dependent respiratory failure. Vent settings were reviewed. Continue to monitor. Follow up with pulmonary. 7. Dysphagia, status post percutaneous endoscopic gastrostomy. Continue tube feeds. 8. Coronary artery disease. Continue current medical management. 9. Diabetes. Continue Accu-Cheks and sliding scale. 10. Status post gastrointestinal bleed. 11. Depression and anxiety disorder. Continue current treatment plan. 12. Hypertension. Continue to monitor closely. Minimize ultrafiltration. 13. History of congestive heart failure. Continue medical management. Subjective 24 Hr Interval Summary Free Text/Dictation The patient is stable. No events overnight. No fevers, chills, nausea, vomiting. poc reviewed with dr. sanders. OBJECTIVE: HEENT: Head is normocephalic. NECK: Supple. HEART: Regular rate. LUNGS: Show diminished breath sounds at base. ABDOMEN: Soft, nontender to palpation. No rebound or guarding. EXTREMITIES: Negative for clubbing, cyanosis, or edema. Positive BKA. DERMATOLOGIC: No rashes. MUSCULOSKELETAL: No joint effusions. NEUROLOGIC: No change in exam. Exam/Review of Systems Vital Signs Vitals Vital Signs Date Time Temp Pulse Resp B/P Pulse Ox O2 Delivery O2 Flow Rate FiO2 11/23/16 13:30 86 11/23/16 13:14 26 98 30 11/23/16 12:00 119/46 Mechanical Ventilator 11/23/16 11:53 98.0 Intake and Output 11/22/16 11/22/16 11/23/16 15:00 23:00 07:00 Intake Total 570 ml 1070 ml Balance 570 ml 1070 ml Results Result Diagram: 11/23/1620 11/23/16 0620 Results 24 hrs Laboratory Tests Test 11/22/16 17:12 11/22/16 23:08 11/23/16 06:11 11/23/16 06:20 Bedside Glucose 127 132 191 White Blood Count 11.5 H Red Blood Count 3.29 L Hemoglobin 10.1 L Hematocrit 32.7 L Mean Corpuscular Volume 99.4 Mean Corpuscular Hemoglobin 30.7 Mean Corpuscular Hemoglobin Concent 30.9 L Red Cell Distribution Width 19.1 H Platelet Count 181 Mean Platelet Volume 10.1 Neutrophils % 80.6 H Lymphocytes % 7.4 L Monocytes % 9.4 Eosinophils % 1.7 Basophils % 0.3 Nucleated Red Blood Cells % 0.0 Neutrophils # 9.2 H Lymphocytes # 0.9 Monocytes # 1.1 H Eosinophils # 0.2 Basophils # 0.0 Nucleated Red Blood Cells # 0.0 Sodium Level 138 Potassium Level 4.8 Chloride Level 102 Carbon Dioxide Level 26 Anion Gap 15 Blood Urea Nitrogen 56 H Creatinine 3.22 H Glucose Level 181 Calcium Level 7.6 L Test 11/23/16 09:13 11/23/16 12:06 Bedside Glucose 219 223 H Medications Medications Current Medications Lidocaine (Lidoderm) 1 patch DAILY TD Last administered on 11/23/16 09:09; Admin Dose 1 PATCH; Start 11/08/16 at 15:30 Acetaminophen (Tylenol Liquid) 325 mg Q4H PRN GTB MILD PAIN LEVEL 1-3 Last administered on 11/17/16 02:37; Admin Dose 325 MG; Start 11/08/16 at 15:30 Acetaminophen (Tylenol Liquid) 650 mg Q4H PRN GTB MODERATE PAIN LEVEL 4-6 Last administered on 11/21/16 20:54; Admin Dose 650 MG; Start 11/08/16 at 15:30 Ascorbic Acid (Vitamin C) 500 mg DAILY GTB Last administered on 11/23/16 09:09 ; Admin Dose 500 MG; Start 11/09/16 at 09:00 Atorvastatin Calcium (Lipitor) 40 mg QHS GTB Last administered on 11/22/16 20: 57; Admin Dose 40 MG; Start 11/08/16 at 21:00 Carvedilol (Coreg) 3.125 mg BID GTB Last administered on 11/21/16 20:54; Admin Dose 3.125 MG; Start 11/08/16 at 21:00 Duloxetine HCl (Cymbalta) 30 mg DAILY GTB Last administered on 11/23/16 09:09; Admin Dose 30 MG; Start 11/09/16 at 09:00 Fluticasone Propionate (Flonase 0.05% Nasal) 1 spray BID NASAL Last administered on 11/23/16 09:10; Admin Dose 1 SPRAY; Start 11/08/16 at 21:00 Insulin Glargine (Lantus) 10 unit DAILY SC Last administered on 11/23/16 09:12 ; Admin Dose 10 UNIT; Start 11/09/16 at 09:00 Lactobacillus Acidoph/Bulgaricus (Floranex) 1 tab DAILY GTB Last administered on 11/23/16 09:10; Admin Dose 1 TAB; Start 11/09/16 at 09:00 Sildenafil Citrate (Revatio) 20 mg BID GTB Last administered on 11/23/16 09:10 ; Admin Dose 20 MG; Start 11/08/16 at 21:00 Zinc Sulfate (Zinc Sulfate) 220 mg DAILY GTB Last administered on 11/23/16 09: 09; Admin Dose 220 MG; Start 11/09/16 at 09:00 Vitamin B Complex/ Vitamin C (Berocca) 1 cap DAILY GTB Last administered on 11/23 09:10; Admin Dose 1 CAP; Start 11/09/16 at 09:00 Miscellaneous Information 1 ea NOTE XX ; Start 11/08/16 at 16:00 Glucose (Glutose) 15 gm Q15M PRN PO DECREASED GLUCOSE; Start 11/08/16 at 16:00 Glucose (Glutose) 22.5 gm Q15M PRN PO DECREASED GLUCOSE; Start 11/08/16 at 16: 00 Dextrose (D50w Syringe) 25 ml Q15M PRN IV DECREASED GLUCOSE; Start 11/08/16 at 16:00 Dextrose (D50w Syringe) 50 ml Q15M PRN IV DECREASED GLUCOSE; Start 11/08/16 at 16:00 Glucagon (Glucagen) 1 mg Q15M PRN IM DECREASED GLUCOSE; Start 11/08/16 at 16:00 Glucose (Glutose) 15 gm Q15M PRN BUCCAL DECREASED GLUCOSE; Start 11/08/16 at 16 :00 Acetaminophen/ Hydrocodone Bitart ([place] (5/325)) 1 tab Q4H PRN PO SEVERE PAIN 7-10 Last administered on 11/16/16 14:59; Admin Dose 1 TAB; Start 11/08/16 at 21:00 Morphine Sulfate (morphine) 2 mg Q4H PRN IV PAIN LEVEL 7-10 Last administered on 11/22/16 17:20; Admin Dose 2 MG; Start 11/09/16 at 11:00 Collagenase (Santyl) 1 applic DAILY TOP Last administered on 11/23/16 09:14; Admin Dose 1 APPLIC; Start 11/09/16 at 16:00 Lorazepam (Ativan) 1 mg Q6H PRN IV AGITATION/ANXIETY Last administered on 01:42; Admin Dose 1 MG; Start 11/09/16 at 20:30 Pantoprazole (Protonix Iv) 40 mg BID@06,18 IV Last administered on 11/23/16 06: 09; Admin Dose 40 MG; Start 11/10/16 at 06:00 Sodium Phosphate (Neutra-Phos) 250 mg BID GTB Last administered on 11/23/16 09: 10; Admin Dose 250 MG; Start 11/10/16 at 09:00 Insulin Aspart (Novolog Insulin Pen) NOVOLOG *MILD* ALGORI... Q6 SC Last administered on 11/23/16 12:08; Admin Dose 3 UNIT; Start 11/11/16 at 00:00 Calcium/Vitamin D (Oyster Shell/ Vit-D (500/200)) 1 tab DAILY GTB Last administered on 11/23/16 09:10; Admin Dose 1 TAB; Start 11/12/16 at 11:00 Prochlorperazine 5 mg 5 mg Q6H PRN GTB NAUSEA AND/OR VOMITING; Start 11/17/16 at 17:30 Sodium Chloride (1/2 NS) 1,000 ml @ 40 mls/hr Q24H IV Last administered on 11/22 15:58; Admin Dose 40 MLS/HR; Start 11/22/16 at 15:00 DOMINIC MUSA DO Nov 23, 2016 14:29
--- NOTE | 2016-11-23 16:03 | CONS ---
Date/Time of Note Date/Time of Note DATE: 11/23/16 TIME: 16:02 Consult Date/Type/Reason Admit Date/Time Nov 08, 2016 at 10:56 Initial Consult Date 11/09/16 Type of Consultation: pulmonary Ordering Provider: GRACIE KATHLEEN Subjective Having hemodialysis this afternoon Objective Vital Signs Date Time Temp Pulse Resp B/P Pulse Ox O2 Delivery O2 Flow Rate FiO2 11/23/16 15:31 98.0 95 18 101/54 98 11/23/16 15:15 30 11/23/16 14:00 Mechanical Ventilator Intake and Output 11/22/16 11/22/16 11/23/16 15:00 23:00 07:00 Intake Total 570 ml 1070 ml Balance 570 ml 1070 ml Exam PHYSICAL EXAMINATION GENERAL: Elderly gentleman, on mechanical ventilation via tracheostomy VITAL SIGNS: see below. HEENT: Pupils equal, round, and reactive to light. Tracheostomy site clean and intact. CARDIAC: S1, S2, 1/6 systolic murmur CHEST: Diminished air entry bilaterally. ABDOMEN: Mildly distended. No bowel sounds. EXTREMITIES: No cyanosis, clubbing edema +1 NEUROLOGIC: Generalized weakness Results/Medications Result Diagram: 11/23/16 0620 11/23/16 0620 Results 24 hrs Laboratory Tests Test 11/22/16 17:12 11/22/16 23:08 11/23/16 06:11 11/23/16 06:20 Bedside Glucose 127 132 191 White Blood Count 11.5 H Red Blood Count 3.29 L Hemoglobin 10.1 L Hematocrit 32.7 L Mean Corpuscular Volume 99.4 Mean Corpuscular Hemoglobin 30.7 Mean Corpuscular Hemoglobin Concent 30.9 L Red Cell Distribution Width 19.1 H Platelet Count 181 Mean Platelet Volume 10.1 Neutrophils % 80.6 H Lymphocytes % 7.4 L Monocytes % 9.4 Eosinophils % 1.7 Basophils % 0.3 Nucleated Red Blood Cells % 0.0 Neutrophils # 9.2 H Lymphocytes # 0.9 Monocytes # 1.1 H Eosinophils # 0.2 Basophils # 0.0 Nucleated Red Blood Cells # 0.0 Sodium Level 138 Potassium Level 4.8 Chloride Level 102 Carbon Dioxide Level 26 Anion Gap 15 Blood Urea Nitrogen 56 H Creatinine 3.22 H Glucose Level 181 Calcium Level 7.6 L Test 11/23/16 09:13 11/23/16 12:06 Bedside Glucose 219 223 H Medications Current Medications Lidocaine (Lidoderm) 1 patch DAILY TD Last administered on 11/23/16 09:09; Admin Dose 1 PATCH; Start 11/08/16 at 15:30 Acetaminophen (Tylenol Liquid) 325 mg Q4H PRN GTB MILD PAIN LEVEL 1-3 Last administered on 11/17/16 02:37; Admin Dose 325 MG; Start 11/08/16 at 15:30 Acetaminophen (Tylenol Liquid) 650 mg Q4H PRN GTB MODERATE PAIN LEVEL 4-6 Last administered on 11/21/16 20:54; Admin Dose 650 MG; Start 11/08/16 at 15:30 Ascorbic Acid (Vitamin C) 500 mg DAILY GTB Last administered on 11/23/16 09:09 ; Admin Dose 500 MG; Start 11/09/16 at 09:00 Atorvastatin Calcium (Lipitor) 40 mg QHS GTB Last administered on 11/22/16 20: 57; Admin Dose 40 MG; Start 11/08/16 at 21:00 Carvedilol (Coreg) 3.125 mg BID GTB Last administered on 11/21/16 20:54; Admin Dose 3.125 MG; Start 11/08/16 at 21:00 Duloxetine HCl (Cymbalta) 30 mg DAILY GTB Last administered on 11/23/16 09:09; Admin Dose 30 MG; Start 11/09/16 at 09:00 Fluticasone Propionate (Flonase 0.05% Nasal) 1 spray BID NASAL Last administered on 11/23/16 09:10; Admin Dose 1 SPRAY; Start 11/08/16 at 21:00 Lactobacillus Acidoph/Bulgaricus (Floranex) 1 tab DAILY GTB Last administered on 11/23/16 09:10; Admin Dose 1 TAB; Start 11/09/16 at 09:00 Sildenafil Citrate (Revatio) 20 mg BID GTB Last administered on 11/23/16 09:10 ; Admin Dose 20 MG; Start 11/08/16 at 21:00 Vitamin B Complex/ Vitamin C (Berocca) 1 cap DAILY GTB Last administered on 11/23 09:10; Admin Dose 1 CAP; Start 11/09/16 at 09:00 Miscellaneous Information 1 ea NOTE XX ; Start 11/08/16 at 16:00 Glucose (Glutose) 15 gm Q15M PRN PO DECREASED GLUCOSE; Start 11/08/16 at 16:00 Glucose (Glutose) 22.5 gm Q15M PRN PO DECREASED GLUCOSE; Start 11/08/16 at 16: 00 Dextrose (D50w Syringe) 25 ml Q15M PRN IV DECREASED GLUCOSE; Start 11/08/16 at 16:00 Dextrose (D50w Syringe) 50 ml Q15M PRN IV DECREASED GLUCOSE; Start 11/08/16 at 16:00 Glucagon (Glucagen) 1 mg Q15M PRN IM DECREASED GLUCOSE; Start 11/08/16 at 16:00 Glucose (Glutose) 15 gm Q15M PRN BUCCAL DECREASED GLUCOSE; Start 11/08/16 at 16 :00 Acetaminophen/ Hydrocodone Bitart ([place] (5/325)) 1 tab Q4H PRN PO SEVERE PAIN 7-10 Last administered on 11/16/16 14:59; Admin Dose 1 TAB; Start 11/08/16 at 21:00 Morphine Sulfate (morphine) 2 mg Q4H PRN IV PAIN LEVEL 7-10 Last administered on 11/22/16 17:20; Admin Dose 2 MG; Start 11/09/16 at 11:00 Collagenase (Santyl) 1 applic DAILY TOP Last administered on 11/23/16 09:14; Admin Dose 1 APPLIC; Start 11/09/16 at 16:00 Lorazepam (Ativan) 1 mg Q6H PRN IV AGITATION/ANXIETY Last administered on 01:42; Admin Dose 1 MG; Start 11/09/16 at 20:30 Pantoprazole (Protonix Iv) 40 mg BID@,18 IV Last administered on 11/23/16 06: 09; Admin Dose 40 MG; Start 11/10/16 at 06:00 Sodium Phosphate (Neutra-Phos) 250 mg BID GTB Last administered on 11/23/16 09: 10; Admin Dose 250 MG; Start 11/10/16 at 09:00 Calcium/Vitamin D (Oyster Shell/ Vit-D (500/200)) 1 tab DAILY GTB Last administered on 11/23/16 09:10; Admin Dose 1 TAB; Start 11/12/16 at 11:00 Prochlorperazine 5 mg 5 mg Q6H PRN GTB NAUSEA AND/OR VOMITING; Start 11/17/16 at 17:30 Sodium Chloride (1/2 NS) 1,000 ml @ 40 mls/hr Q24H IV Last administered on 11/22t 15:58; Admin Dose 40 MLS/HR; Start 11/22/16 at 15:00 Insulin Glargine (Lantus) 16 unit DAILY SC ; Start 11/24/16 at 09:00 Diagnostic Test (Pha) (Accu-Chek) 1 ea 02 XX ; Start 11/24/16 at 02:00 Assessment/Plan Chief Complaint/Hosp Course Assessment 1. Vent dependent respiratory failure 2. End-stage renal failure on hemodialysis 3. Recent urinary tract infection with sepsis 4. Anemia of chronic disease and possibly secondary to renal dysfunction 5. Dysphagia with G-tube Plan 1. Continue mechanical ventilation 2. Tube feeding as tolerated 3. Hemodialysis per nephrology 4. Antibiotics per infectious diseases 5. DVT and GI prophylaxis Disposition Consider discharge planning Problems: VALERIE CAMARENA MD, [facility] Nov 23, 2016 16:03
--- NOTE | 2016-11-23 17:10 | RADRPT ---
PROCEDURE: XR Chest. CLINICAL INDICATION: Shortness of breath. TECHNIQUE: Single frontal view. COMPARISON: 11/12/2016. FINDINGS: The tracheostomy tube is in satisfactory position. There is linear atelectasis in the right midlung zone and at both lower lung zones, slightly improved. Pulmonary edema is also improved. The heart is enlarged. There is no pleural effusion. There is no pneumothorax. IMPRESSION: 1. Slightly improved appearance of the lungs. 2. Cardiomegaly. 3. Tracheostomy in satisfactory position. RPTAT: QQ .Luca Hopkins MD, MD Date Time Electronically viewed and signed by .Luca Hopkins MD, on 11/23/2016 17:09 .R/
[2016-11-23] MEDS: SOD CHLORIDE 0.45% 1,000 ML IV SCH (17:21)
[2016-11-23] MEDS: PROCHLORPERAZINE 5 MG TAB GTB PRN (17:45)
[2016-11-23] MEDS ORDERED: INSULIN ASPART [NOVOLOG] 3 ML PEN SC SCH ×2 (17:55→18:00)
[2016-11-23] MEDS: EPOETIN 10000 UNITS/1 ML INJ (ESRD) SC SCH (18:22)
[2016-11-23] MEDS: ATORVASTATIN 40 MG TAB GTB SCH (21:54)
[2016-11-24] VITALS (31 sets, daily range): BP systolic 92–131; BP diastolic 37–91; PULSE 73–105; RESP 14–32
[2016-11-24] MEDS: INSULIN ASPART [NOVOLOG] 3 ML PEN SC SCH ×6 (01:52→20:59)
[2016-11-24] MEDS: ACCU-CHEK XX SCH (02:00)
[2016-11-24] MEDS: PANTOPRAZOLE 40 MG INJ IV SCH ×2 (05:54→17:38)
[2016-11-24 07:48] LABS: ADD SCAN DIFF NO
[2016-11-24 07:53] LABS: BASOPHILS % 0.4 % (0.0-2.0); EOSINOPHILS # 0.1 10^3/ul (0.0-0.5); EOSINOPHILS % 1.5 % (0.0-7.0); HEMATOCRIT 29.6 % (42.0-52.0); HEMOGLOBIN 9.1 g/dl (14.0-18.0); LYMPHOCYTES # 0.7 10^3/ul (0.8-2.9); LYMPHOCYTES % 7.7 % (15.0-51.0); MEAN CORPUSCULAR HEMOGLOBIN 30.4 pg (29.0-33.0); MEAN CORPUSCULAR HGB CONC 30.7 g/dl (32.0-37.0); MEAN PLATELET VOLUME 9.4 fl (7.4-10.4); MONOCYTE # 1.1 10^3/ul (0.3-0.9); MONOCYTES % 11.9 % (0.0-11.0); NEUTROPHIL # 7.1 10^3/ul (1.6-7.5); NEUTROPHILS % 78.2 % (39.0-77.0); PLATELET COUNT 195 10^3/UL (140-415); RED BLOOD COUNT 2.99 10^6/ul (4.70-6.10); RED CELL DISTRIBUTION WIDTH 19.1 % (11.5-14.5); WHITE BLOOD COUNT 9.1 10^3/ul (4.8-10.8)
[2016-11-24 08:06] LABS: CREATININE 2.24 mg/dl (0.61-1.24); POTASSIUM 3.7 mmol/L (3.5-5.1)
[2016-11-24] MEDS: CALCIUM/VITAMIN D (500/200) TAB GTB SCH (09:48)
[2016-11-24] MEDS: NEUTRA-PHOS 250 MG PACKET GTB SCH ×2 (09:48→20:57)
[2016-11-24] MEDS: LACTOBACILLUS CHEW TAB GTB SCH (09:48)
[2016-11-24] MEDS: ASCORBIC ACID 500 MG TAB GTB SCH (09:48)
[2016-11-24] MEDS: DULOXETINE 30 MG CAP DR GTB SCH (09:48)
[2016-11-24] MEDS: FLUTICASONE 0.05% 16 GM NAS SPRAY NASAL SCH ×2 (09:51→20:59)
[2016-11-24] MEDS: LIDOCAINE 5% PATCH TD SCH (09:54)
[2016-11-24] MEDS: INSULIN GLARGINE [LANtus] 3 ML PEN SC SCH (10:11)
[2016-11-24] MEDS: VITAMIN B COMPLEX/VIT C CAP GTB SCH (10:35)
[2016-11-24] MEDS: COLLAGENASE 30 GM TUBE TOP SCH (10:35)
[2016-11-24] MEDS: SILDENAFIL 20 MG TAB GTB SCH ×2 (10:35→20:58)
--- NOTE | 2016-11-24 10:52 | CONS ---
Date/Time of Note Date/Time of Note DATE: 11/24/16 TIME: 10:51 Consult Date/Type/Reason Admit Date/Time Nov 08, 2016 at 10:56 Initial Consult Date 11/09/16 Type of Consultation: neph Ordering Provider: GRACIE KATHLEEN The patient is stable. No events overnight. No fevers, chills, nausea, vomiting. poc reviewed with dr. sanders. OBJECTIVE: HEENT: Head is normocephalic. NECK: Supple. HEART: Regular rate. LUNGS: Show diminished breath sounds at base. ABDOMEN: Soft, nontender to palpation. No rebound or guarding. EXTREMITIES: Negative for clubbing, cyanosis, or edema. Positive BKA. DERMATOLOGIC: No rashes. MUSCULOSKELETAL: No joint effusions. NEUROLOGIC: No change in exam. Objective Vital Signs Date Time Temp Pulse Resp B/P Pulse Ox O2 Delivery O2 Flow Rate FiO2 11/24/16 09:05 93 15 95 30 11/24/16 08:12 98.0 129/73 11/24/16 04:00 Mechanical Ventilator Intake and Output 11/23/16 11/23/16 11/24/16 15:00 23:00 07:00 Intake Total 980 ml 970 ml Output Total 1500 ml Balance -520 ml 970 ml Results/Medications Result Diagram: 11/24/16 0600 11/24/16 0600 Results 24 hrs Laboratory Tests Test 11/23/16 12:06 11/23/16 17:19 11/23/16 21:43 11/24/16 01:50 Bedside Glucose 223 H 161 165 188 Test 11/24/16 05:46 11/24/16 06:00 11/24/16 09:50 Bedside Glucose 237 H 231 H White Blood Count 9.1 # Red Blood Count 2.99 L Hemoglobin 9.1 L Hematocrit 29.6 L Mean Corpuscular Volume 99.0 Mean Corpuscular Hemoglobin 30.4 Mean Corpuscular Hemoglobin Concent 30.7 L Red Cell Distribution Width 19.1 H Platelet Count 195 Mean Platelet Volume 9.4 Neutrophils % 78.2 H Lymphocytes % 7.7 L Monocytes % 11.9 H Eosinophils % 1.5 Basophils % 0.4 Nucleated Red Blood Cells % 0.0 Neutrophils # 7.1 Lymphocytes # 0.7 L Monocytes # 1.1 H Eosinophils # 0.1 Basophils # 0.0 Nucleated Red Blood Cells # 0.0 Sodium Level 136 Potassium Level 3.7 Chloride Level 102 Carbon Dioxide Level 26 Anion Gap 12 Blood Urea Nitrogen 40 #H Creatinine 2.24 H Glucose Level 210 Calcium Level 7.0 L Medications Current Medications Lidocaine (Lidoderm) 1 patch DAILY TD Last administered on 11/24/16 09:54; Admin Dose 1 PATCH; Start 11/08/16 at 15:30 Acetaminophen (Tylenol Liquid) 325 mg Q4H PRN GTB MILD PAIN LEVEL 1-3 Last administered on 11/17/16 02:37; Admin Dose 325 MG; Start 11/08/16 at 15:30 Acetaminophen (Tylenol Liquid) 650 mg Q4H PRN GTB MODERATE PAIN LEVEL 4-6 Last administered on 11/21/16 20:54; Admin Dose 650 MG; Start 11/08/16 at 15:30 Ascorbic Acid (Vitamin C) 500 mg DAILY GTB Last administered on 11/24/16 09:48 ; Admin Dose 500 MG; Start 11/09/16 at 09:00 Atorvastatin Calcium (Lipitor) 40 mg QHS GTB Last administered on 11/23/16 21: 54; Admin Dose 40 MG; Start 11/08/16 at 21:00 Carvedilol (Coreg) 3.125 mg BID GTB Last administered on 11/21/16 20:54; Admin Dose 3.125 MG; Start 11/08/16 at 21:00 Duloxetine HCl (Cymbalta) 30 mg DAILY GTB Last administered on 11/24/16 09:48; Admin Dose 30 MG; Start 11/09/16 at 09:00 Fluticasone Propionate (Flonase 0.05% Nasal) 1 spray BID NASAL Last administered on 11/24/16 09:51; Admin Dose 1 SPRAY; Start 11/08/16 at 21:00 Lactobacillus Acidoph/Bulgaricus (Floranex) 1 tab DAILY GTB Last administered on 11/24/16 09:48; Admin Dose 1 TAB; Start 11/09/16 at 09:00 Sildenafil Citrate (Revatio) 20 mg BID GTB Last administered on 11/23/16 09:10 ; Admin Dose 20 MG; Start 11/08/16 at 21:00 Vitamin B Complex/ Vitamin C (Berocca) 1 cap DAILY GTB Last administered on 11/24 10:35; Admin Dose 1 CAP; Start 11/09/16 at 09:00 Miscellaneous Information 1 ea NOTE XX ; Start 11/08/16 at 16:00 Glucose (Glutose) 15 gm Q15M PRN PO DECREASED GLUCOSE; Start 11/08/16 at 16:00 Glucose (Glutose) 22.5 gm Q15M PRN PO DECREASED GLUCOSE; Start 11/08/16 at 16: 00 Dextrose (D50w Syringe) 25 ml Q15M PRN IV DECREASED GLUCOSE; Start 11/08/16 at 16:00 Dextrose (D50w Syringe) 50 ml Q15M PRN IV DECREASED GLUCOSE; Start 11/08/16 at 16:00 Glucagon (Glucagen) 1 mg Q15M PRN IM DECREASED GLUCOSE; Start 11/08/16 at 16:00 Glucose (Glutose) 15 gm Q15M PRN BUCCAL DECREASED GLUCOSE; Start 11/08/16 at 16 :00 Acetaminophen/ Hydrocodone Bitart ([place] (5/325)) 1 tab Q4H PRN PO SEVERE PAIN 7-10 Last administered on 11/16/16 14:59; Admin Dose 1 TAB; Start 11/08/16 at 21:00 Morphine Sulfate (morphine) 2 mg Q4H PRN IV PAIN LEVEL 7-10 Last administered on 11/22/16 17:20; Admin Dose 2 MG; Start 11/09/16 at 11:00 Collagenase (Santyl) 1 applic DAILY TOP Last administered on 11/24/16 10:35; Admin Dose 1 APPLIC; Start 11/09/16 at 16:00 Lorazepam (Ativan) 1 mg Q6H PRN IV AGITATION/ANXIETY Last administered on 01:42; Admin Dose 1 MG; Start 11/09/16 at 20:30 Pantoprazole (Protonix Iv) 40 mg BID@,18 IV Last administered on 11/24/16 05: 54; Admin Dose 40 MG; Start 11/10/16 at 06:00 Sodium Phosphate (Neutra-Phos) 250 mg BID GTB Last administered on 11/24/16 09: 48; Admin Dose 250 MG; Start 11/10/16 at 09:00 Calcium/Vitamin D (Oyster Shell/ Vit-D (500/200)) 1 tab DAILY GTB Last administered on 11/24/16 09:48; Admin Dose 1 TAB; Start 11/12/16 at 11:00 Prochlorperazine 5 mg 5 mg Q6H PRN GTB NAUSEA AND/OR VOMITING Last administered on 11/23/16 17:45; Admin Dose 5 MG; Start 11/17/16 at 17:30 Sodium Chloride (1/2 NS) 1,000 ml @ 40 mls/hr Q24H IV Last administered on 11/23 17:21; Admin Dose 40 MLS/HR; Start 11/22/16 at 15:00 Insulin Glargine (Lantus) 16 unit DAILY SC Last administered on 11/24/16 10:11 ; Admin Dose 16 UNIT; Start 11/24/16 at 09:00 Diagnostic Test (Pha) (Accu-Chek) 1 ea 02 XX ; Start 11/24/16 at 02:00 Insulin Aspart (Novolog Insulin Pen) NOVOLOG *MILD* ALGORITHM Q4 SC Last administered on 11/24/16 10:05; Admin Dose 3 UNIT; Start 11/23/16 at 17:00 Assessment/Plan Chief Complaint/Hosp Course ASSESSMENT AND PLAN: 1. End-stage renal disease. The patient is scheduled for hemodialysis qod. assess daily for hd needs. all meds dosed ok. Will dialyze for 3 hours on a 2K bath, calcium 2.5. 2. Anemia of chronic disease. Continue to monitor H and H levels. Will give Epogen as needed. 3. Mineral bone disorder. Continue to monitor calcium and phosphorus levels. Continue Neutra-Phos. 4. Volume overload, clinically improving. Continue ultrafiltration with dialysis. 5. Sepsis secondary to pneumonia. The patient has completed antibiotic course. Continue to monitor. 6. Ventilatory-dependent respiratory failure. Continue to monitor. Follow up with pulmonary. 7. Dysphagia, status post percutaneous endoscopic gastrostomy. Continue tube feeds. 8. Coronary artery disease. Continue current medical management. 9. Diabetes. Continue Accu-Cheks and sliding scale. 10. Status post gastrointestinal bleed. 11. Depression and anxiety disorder. Continue current treatment plan. 12. Hypertension. Continue to monitor closely. Minimize ultrafiltration. 13. History of congestive heart failure. Continue medical management. Problems: SOBIA MENDEZ MD Nov 24, 2016 10:52
--- NOTE | 2016-11-24 12:16 | PN ---
Date/Time of Note Date/Time of Note DATE: 11/24/16 TIME: 12:13 Assessment/Plan Lines/Catheters IV [facility] Type [facility]from [facility]): [facility] Urinary Cath still in place: No Assessment/Plan Assessment/Plan - Esophagitis per EGD. Continue Protonix Dr. Hernandez is following in gastroenterology consultation. - Anemia of chronic disease, on Epogen, continue to monitor hemoglobin and hematocrit, transfuse as needed. - Ascites, SBP ruled out, Status post paracentesis 11/14,ascitic fluid culture negative. - Systemic inflammatory response syndrome with leukocytosis, patient is followed by Dr. Benjamin deluna in infection disease consultation. - End-stage renal disease, hemodialysis dependent. Continue hemodialysis per nephrology. - Chronic respiratory failure with tracheostomy. Dr. Sahu is following in pulmonology consultation. - Coronary artery disease with history of PCI. - Diastolic congestive heart failure - Pulmonary hypertension - Peripheral vascular disease, status post left BKA. - Diabetes mellitus type 2, continue NovoLog per sliding scale. - Sacral decub present on admission. Continue current wound care. D/C planning Subjective 24 Hr Interval Summary Free Text/Dictation NAD. Afebrile. dw staff Constitutional: requiring O2 Exam/Review of Systems Vital Signs Vitals Vital Signs Date Time Temp Pulse Resp B/P Pulse Ox O2 Delivery O2 Flow Rate FiO2 11/24/16 11:05 94 26 100 30 11/24/16 08:12 98.0 129/73 11/24/16 08:00 Mechanical Ventilator Intake and Output 11/23/16 11/23/16 11/24/16 15:00 23:00 07:00 Intake Total 980 ml 970 ml Output Total 1500 ml Balance -520 ml 970 ml Exam Constitutional: alert Psych: nl mood/affect Eyes: PERRL, nl sclera ENMT: nl external ears & nose Respiratory: diminished breath sounds Cardiovascular: nl pulses Gastrointestinal: non-tender, soft Musculoskeletal: other Extremities: normal pulses Neurological: confused Lymph: nontender Results Result Diagram: 11/24/16 0600 11/24/16 0600 Results 24 hrs Laboratory Tests Test 11/23/16 17:19 11/23/16 21:43 11/24/16 01:50 11/24/16 05:46 Bedside Glucose 161 165 188 237 H Test 11/24/16 06:00 11/24/16 09:50 White Blood Count 9.1 # Red Blood Count 2.99 L Hemoglobin 9.1 L Hematocrit 29.6 L Mean Corpuscular Volume 99.0 Mean Corpuscular Hemoglobin 30.4 Mean Corpuscular Hemoglobin Concent 30.7 L Red Cell Distribution Width 19.1 H Platelet Count 195 Mean Platelet Volume 9.4 Neutrophils % 78.2 H Lymphocytes % 7.7 L Monocytes % 11.9 H Eosinophils % 1.5 Basophils % 0.4 Nucleated Red Blood Cells % 0.0 Neutrophils # 7.1 Lymphocytes # 0.7 L Monocytes # 1.1 H Eosinophils # 0.1 Basophils # 0.0 Nucleated Red Blood Cells # 0.0 Sodium Level 136 Potassium Level 3.7 Chloride Level 102 Carbon Dioxide Level 26 Anion Gap 12 Blood Urea Nitrogen 40 #H Creatinine 2.24 H Glucose Level 210 Calcium Level 7.0 L Bedside Glucose 231 H Medications Medications Current Medications Lidocaine (Lidoderm) 1 patch DAILY TD Last administered on 11/24/16 09:54; Admin Dose 1 PATCH; Start 11/08/16 at 15:30 Acetaminophen (Tylenol Liquid) 325 mg Q4H PRN GTB MILD PAIN LEVEL 1-3 Last administered on 11/17/16 02:37; Admin Dose 325 MG; Start 11/08/16 at 15:30 Acetaminophen (Tylenol Liquid) 650 mg Q4H PRN GTB MODERATE PAIN LEVEL 4-6 Last administered on 11/21/16 20:54; Admin Dose 650 MG; Start 11/08/16 at 15:30 Ascorbic Acid (Vitamin C) 500 mg DAILY GTB Last administered on 11/24/16 09:48 ; Admin Dose 500 MG; Start 11/09/16 at 09:00 Atorvastatin Calcium (Lipitor) 40 mg QHS GTB Last administered on 11/23/16 21: 54; Admin Dose 40 MG; Start 11/08/16 at 21:00 Carvedilol (Coreg) 3.125 mg BID GTB Last administered on 11/21/16 20:54; Admin Dose 3.125 MG; Start 11/08/16 at 21:00 Duloxetine HCl (Cymbalta) 30 mg DAILY GTB Last administered on 11/24/16 09:48; Admin Dose 30 MG; Start 11/09/16 at 09:00 Fluticasone Propionate (Flonase 0.05% Nasal) 1 spray BID NASAL Last administered on 11/24/16 09:51; Admin Dose 1 SPRAY; Start 11/08/16 at 21:00 Lactobacillus Acidoph/Bulgaricus (Floranex) 1 tab DAILY GTB Last administered on 11/24/16 09:48; Admin Dose 1 TAB; Start 11/09/16 at 09:00 Sildenafil Citrate (Revatio) 20 mg BID GTB Last administered on 11/23/16 09:10 ; Admin Dose 20 MG; Start 11/08/16 at 21:00 Vitamin B Complex/ Vitamin C (Berocca) 1 cap DAILY GTB Last administered on 11/24 10:35; Admin Dose 1 CAP; Start 11/09/16 at 09:00 Miscellaneous Information 1 ea NOTE XX ; Start 11/08/16 at 16:00 Glucose (Glutose) 15 gm Q15M PRN PO DECREASED GLUCOSE; Start 11/08/16 at 16:00 Glucose (Glutose) 22.5 gm Q15M PRN PO DECREASED GLUCOSE; Start 11/08/16 at 16: 00 Dextrose (D50w Syringe) 25 ml Q15M PRN IV DECREASED GLUCOSE; Start 11/08/16 at 16:00 Dextrose (D50w Syringe) 50 ml Q15M PRN IV DECREASED GLUCOSE; Start 11/08/16 at 16:00 Glucagon (Glucagen) 1 mg Q15M PRN IM DECREASED GLUCOSE; Start 11/08/16 at 16:00 Glucose (Glutose) 15 gm Q15M PRN BUCCAL DECREASED GLUCOSE; Start 11/08/16 at 16 :00 Acetaminophen/ Hydrocodone Bitart ([place] (5/325)) 1 tab Q4H PRN PO SEVERE PAIN 7-10 Last administered on 11/16/16 14:59; Admin Dose 1 TAB; Start 11/08/16 at 21:00 Morphine Sulfate (morphine) 2 mg Q4H PRN IV PAIN LEVEL 7-10 Last administered on 11/22/16 17:20; Admin Dose 2 MG; Start 11/09/16 at 11:00 Collagenase (Santyl) 1 applic DAILY TOP Last administered on 11/24/16 10:35; Admin Dose 1 APPLIC; Start 11/09/16 at 16:00 Lorazepam (Ativan) 1 mg Q6H PRN IV AGITATION/ANXIETY Last administered on 01:42; Admin Dose 1 MG; Start 11/09/16 at 20:30 Pantoprazole (Protonix Iv) 40 mg BID@06,18 IV Last administered on 11/24/16 05: 54; Admin Dose 40 MG; Start 11/10/16 at 06:00 Sodium Phosphate (Neutra-Phos) 250 mg BID GTB Last administered on 11/24/16 09: 48; Admin Dose 250 MG; Start 11/10/16 at 09:00 Calcium/Vitamin D ([place]yster [place]/ Vit-D (500/200)) 1 tab DAILY GTB Last administered on 11/24/16 09:48; Admin Dose 1 TAB; Start 11/12/16 at 11:00 Prochlorperazine 5 mg 5 mg Q6H PRN GTB NAUSEA AND/OR VOMITING Last administered on 11/23/16 17:45; Admin Dose 5 MG; Start 11/17/16 at 17:30 Sodium Chloride (1/2 NS) 1,000 ml @ 40 mls/hr Q24H IV Last administered on 11/23 17:21; Admin Dose 40 MLS/HR; Start 11/22/16 at 15:00 Insulin Glargine (Lantus) 16 unit DAILY SC Last administered on 11/24/16 10:11 ; Admin Dose 16 UNIT; Start 11/24/16 at 09:00 Diagnostic Test (Pha) (Accu-Chek) 1 ea 02 XX ; Start 11/24/16 at 02:00 Insulin Aspart (Novolog Insulin Pen) NOVOLOG *MILD* ALGORITHM Q4 SC Last administered on 11/24/16 10:05; Admin Dose 3 UNIT; Start 11/23/16 at 17:00 GRACIE KATHLEEN Nov 24, 2016 12:16
[2016-11-24] MEDS: SOD CHLORIDE 0.45% 1,000 ML IV SCH (15:27)
[2016-11-24] MEDS: HYDROCODONE/APAP (5/325) TAB PO PRN (16:12)
--- NOTE | 2016-11-24 17:20 | CONS ---
Date/Time of Note Date/Time of Note DATE: 11/24/16 TIME: 17:17 Assessment/Plan Assessment/Plan Chief Complaint/Hosp Course - sepsis - h/o GIB - ascites, s/p paracentesis on 11/14/2016; not consistent with SBP. Took empiric cefepime (11/12/16-11/17/16) and metronidazole (10/14/2016-11/17/16) - near complete collapse of RLL with LLL atelectasis, pulmonary edema - h/o severe C diff colitis in 2016 - ESRD on HD - VDRF with trach - G tube dependence - PVD - s/p L BKA - abdominal pain - Abd X-ray 11/16/16 shows no e/o obstruction - MRSA nasal colonization, completed mupirocin for 10 days recommendations - cont. to f/u respiratory culture and CXR, two sets of blood cultures from dialysis access - will continue to monitor off antibiotics at this time Problems: Consultation Date/Type/Reason Admit Date/Time Nov 08, 2016 at 10:56 Initial Consult Date 11/08/16 Type of Consultation: id Referring Provider: GRACIE KATHLEEN 24 HR Interval Summary Free Text/Dictation d/w nursing. continues on abx Exam/Review of Systems Vital Signs Vitals Vital Signs Date Time Temp Pulse Resp B/P Pulse Ox O2 Delivery O2 Flow Rate FiO2 11/24/16 16:16 101 11/24/16 16:15 99.2 18 104/49 99 Mechanical Ventilator 11/24/16 15:00 30 Intake and Output 11/23/16 11/23/16 11/24/16 15:00 23:00 07:00 Intake Total 980 ml 970 ml Output Total 1500 ml Balance -520 ml 970 ml Exam Constitutional: non-verbal Respiratory: diminished breath sounds Cardiovascular: regular rate and rhythm Gastrointestinal: non-tender, soft Results Result Diagram: 11/24/16 0600 11/24/16 0600 Results 24 hrs Laboratory Tests Test 11/23/16 17:19 11/23/16 21:43 11/24/16 01:50 11/24/16 05:46 Bedside Glucose 161 165 188 237 H Test 11/24/16 06:00 11/24/16 09:50 11/24/16 12:54 White Blood Count 9.1 # Red Blood Count 2.99 L Hemoglobin 9.1 L Hematocrit 29.6 L Mean Corpuscular Volume 99.0 Mean Corpuscular Hemoglobin 30.4 Mean Corpuscular Hemoglobin Concent 30.7 L Red Cell Distribution Width 19.1 H Platelet Count 195 Mean Platelet Volume 9.4 Neutrophils % 78.2 H Lymphocytes % 7.7 L Monocytes % 11.9 H Eosinophils % 1.5 Basophils % 0.4 Nucleated Red Blood Cells % 0.0 Neutrophils # 7.1 Lymphocytes # 0.7 L Monocytes # 1.1 H Eosinophils # 0.1 Basophils # 0.0 Nucleated Red Blood Cells # 0.0 Sodium Level 136 Potassium Level 3.7 Chloride Level 102 Carbon Dioxide Level 26 Anion Gap 12 Blood Urea Nitrogen 40 #H Creatinine 2.24 H Glucose Level 210 Calcium Level 7.0 L Bedside Glucose 231 H 175 Medications Medications Current Medications Lidocaine (Lidoderm) 1 patch DAILY TD Last administered on 11/24/16 09:54; Admin Dose 1 PATCH; Start 11/08/16 at 15:30 Acetaminophen (Tylenol Liquid) 325 mg Q4H PRN GTB MILD PAIN LEVEL 1-3 Last administered on 11/17/16 02:37; Admin Dose 325 MG; Start 11/08/16 at 15:30 Acetaminophen (Tylenol Liquid) 650 mg Q4H PRN GTB MODERATE PAIN LEVEL 4-6 Last administered on 11/21/16 20:54; Admin Dose 650 MG; Start 11/08/16 at 15:30 Ascorbic Acid (Vitamin C) 500 mg DAILY GTB Last administered on 11/24/16 09:48 ; Admin Dose 500 MG; Start 11/09/16 at 09:00 Atorvastatin Calcium (Lipitor) 40 mg QHS GTB Last administered on 11/23/16 21: 54; Admin Dose 40 MG; Start 11/08/16 at 21:00 Carvedilol (Coreg) 3.125 mg BID GTB Last administered on 11/21/16 20:54; Admin Dose 3.125 MG; Start 11/08/16 at 21:00 Duloxetine HCl (Cymbalta) 30 mg DAILY GTB Last administered on 11/24/16 09:48; Admin Dose 30 MG; Start 11/09/16 at 09:00 Fluticasone Propionate (Flonase 0.05% Nasal) 1 spray BID NASAL Last administered on 11/24/16 09:51; Admin Dose 1 SPRAY; Start 11/08/16 at 21:00 Lactobacillus Acidoph/Bulgaricus (Floranex) 1 tab DAILY GTB Last administered on 11/24/16 09:48; Admin Dose 1 TAB; Start 11/09/16 at 09:00 Sildenafil Citrate (Revatio) 20 mg BID GTB Last administered on 11/23/16 09:10 ; Admin Dose 20 MG; Start 11/08/16 at 21:00 Vitamin B Complex/ Vitamin C (Berocca) 1 cap DAILY GTB Last administered on 11/24 10:35; Admin Dose 1 CAP; Start 11/09/16 at 09:00 Miscellaneous Information 1 ea NOTE XX ; Start 11/08/16 at 16:00 Glucose (Glutose) 15 gm Q15M PRN PO DECREASED GLUCOSE; Start 11/08/16 at 16:00 Glucose (Glutose) 22.5 gm Q15M PRN PO DECREASED GLUCOSE; Start 11/08/16 at 16: 00 Dextrose (D50w Syringe) 25 ml Q15M PRN IV DECREASED GLUCOSE; Start 11/08/16 at 16:00 Dextrose (D50w Syringe) 50 ml Q15M PRN IV DECREASED GLUCOSE; Start 11/08/16 at 16:00 Glucagon (Glucagen) 1 mg Q15M PRN IM DECREASED GLUCOSE; Start 11/08/16 at 16:00 Glucose (Glutose) 15 gm Q15M PRN BUCCAL DECREASED GLUCOSE; Start 11/08/16 at 16 :00 Acetaminophen/ Hydrocodone Bitart ([place] (5/325)) 1 tab Q4H PRN PO SEVERE PAIN 7-10 Last administered on 11/24/16 16:12; Admin Dose 1 TAB; Start 11/08/16 at 21 :00 Morphine Sulfate (morphine) 2 mg Q4H PRN IV PAIN LEVEL 7-10 Last administered on 11/22/16 17:20; Admin Dose 2 MG; Start 11/09/16 at 11:00 Collagenase (Santyl) 1 applic DAILY TOP Last administered on 11/24/16 10:35; Admin Dose 1 APPLIC; Start 11/09/16 at 16:00 Lorazepam (Ativan) 1 mg Q6H PRN IV AGITATION/ANXIETY Last administered on 01:42; Admin Dose 1 MG; Start 11/09/16 at 20:30 Pantoprazole (Protonix Iv) 40 mg BID@06,18 IV Last administered on 11/24/16 05: 54; Admin Dose 40 MG; Start 11/10/16 at 06:00 Sodium Phosphate (Neutra-Phos) 250 mg BID GTB Last administered on 11/24/16 09: 48; Admin Dose 250 MG; Start 11/10/16 at 09:00 Calcium/Vitamin D (Oyster Shell/ Vit-D (500/200)) 1 tab DAILY GTB Last administered on 11/24/16 09:48; Admin Dose 1 TAB; Start 11/12/16 at 11:00 Prochlorperazine 5 mg 5 mg Q6H PRN GTB NAUSEA AND/OR VOMITING Last administered on 11/23/16 17:45; Admin Dose 5 MG; Start 11/17/16 at 17:30 Sodium Chloride (1/2 NS) 1,000 ml @ 40 mls/hr Q24H IV Last administered on 11/24 15:27; Admin Dose 40 MLS/HR; Start 11/22/16 at 15:00 Insulin Glargine (Lantus) 16 unit DAILY SC Last administered on 11/24/16 10:11 ; Admin Dose 16 UNIT; Start 11/24/16 at 09:00 Diagnostic Test (Pha) (Accu-Chek) 1 ea 02 XX ; Start 11/24/16 at 02:00 Insulin Aspart (Novolog Insulin Pen) NOVOLOG *MILD* ALGORITHM Q4 SC Last administered on 11/24/16 13:02; Admin Dose 1 UNIT; Start 11/23/16 at 17:00 JOYCE SOARES MD Nov 24, 2016 17:20
--- NOTE | 2016-11-24 19:26 | CONS ---
Date/Time of Note Date/Time of Note DATE: 11/24/16 TIME: 19:26 Consult Date/Type/Reason Admit Date/Time Nov 08, 2016 at 10:56 Initial Consult Date 11/09/16 Type of Consultation: Pulm Ordering Provider: GRACIE KATHLEEN Subjective no events. Objective Vital Signs Date Time Temp Pulse Resp B/P Pulse Ox O2 Delivery O2 Flow Rate FiO2 11/24/16 18:08 99.1 79 18 95/37 99 Mechanical Ventilator 11/24/16 17:05 30 Intake and Output 11/23/16 11/23/16 11/24/16 15:00 23:00 07:00 Intake Total 980 ml 970 ml Output Total 1500 ml Balance -520 ml 970 ml Exam HEENT: Pupils equal, round, and reactive to light. Tracheostomy site clean and intact. CARDIAC: S1, S2, RRR CHEST: Diminished air entry bilaterally. ABDOMEN: Mildly distended. No bowel sounds. EXTREMITIES: No cyanosis, clubbing edema +1 Results/Medications Result Diagram: 11/24/16 0600 11/24/16 0600 Results 24 hrs Laboratory Tests Test 11/23/16 21:43 11/24/16 01:50 11/24/16 05:46 11/24/16 06:00 Bedside Glucose 165 188 237 H White Blood Count 9.1 # Red Blood Count 2.99 L Hemoglobin 9.1 L Hematocrit 29.6 L Mean Corpuscular Volume 99.0 Mean Corpuscular Hemoglobin 30.4 Mean Corpuscular Hemoglobin Concent 30.7 L Red Cell Distribution Width 19.1 H Platelet Count 195 Mean Platelet Volume 9.4 Neutrophils % 78.2 H Lymphocytes % 7.7 L Monocytes % 11.9 H Eosinophils % 1.5 Basophils % 0.4 Nucleated Red Blood Cells % 0.0 Neutrophils # 7.1 Lymphocytes # 0.7 L Monocytes # 1.1 H Eosinophils # 0.1 Basophils # 0.0 Nucleated Red Blood Cells # 0.0 Sodium Level 136 Potassium Level 3.7 Chloride Level 102 Carbon Dioxide Level 26 Anion Gap 12 Blood Urea Nitrogen 40 #H Creatinine 2.24 H Glucose Level 210 Calcium Level 7.0 L Test 11/24/16 09:50 11/24/16 12:54 11/24/16 17:42 Bedside Glucose 231 H 175 156 Medications Current Medications Lidocaine (Lidoderm) 1 patch DAILY TD Last administered on 11/24/16 09:54; Admin Dose 1 PATCH; Start 11/08/16 at 15:30 Acetaminophen (Tylenol Liquid) 325 mg Q4H PRN GTB MILD PAIN LEVEL 1-3 Last administered on 11/17/16 02:37; Admin Dose 325 MG; Start 11/08/16 at 15:30 Acetaminophen (Tylenol Liquid) 650 mg Q4H PRN GTB MODERATE PAIN LEVEL 4-6 Last administered on 11/21/16 20:54; Admin Dose 650 MG; Start 11/08/16 at 15:30 Ascorbic Acid (Vitamin C) 500 mg DAILY GTB Last administered on 11/24/16 09:48 ; Admin Dose 500 MG; Start 11/09/16 at 09:00 Atorvastatin Calcium (Lipitor) 40 mg QHS GTB Last administered on 11/23/16 21: 54; Admin Dose 40 MG; Start 11/08/16 at 21:00 Carvedilol (Coreg) 3.125 mg BID GTB Last administered on 11/21/16 20:54; Admin Dose 3.125 MG; Start 11/08/16 at 21:00 Duloxetine HCl (Cymbalta) 30 mg DAILY GTB Last administered on 11/24/16 09:48; Admin Dose 30 MG; Start 11/09/16 at 09:00 Fluticasone Propionate (Flonase 0.05% Nasal) 1 spray BID NASAL Last administered on 11/24/16 09:51; Admin Dose 1 SPRAY; Start 11/08/16 at 21:00 Lactobacillus Acidoph/Bulgaricus (Floranex) 1 tab DAILY GTB Last administered on 11/24/16 09:48; Admin Dose 1 TAB; Start 11/09/16 at 09:00 Sildenafil Citrate (Revatio) 20 mg BID GTB Last administered on 11/23/16 09:10 ; Admin Dose 20 MG; Start 11/08/16 at 21:00 Vitamin B Complex/ Vitamin C (Berocca) 1 cap DAILY GTB Last administered on 11/24 10:35; Admin Dose 1 CAP; Start 11/09/16 at 09:00 Miscellaneous Information 1 ea NOTE XX ; Start 11/08/16 at 16:00 Glucose (Glutose) 15 gm Q15M PRN PO DECREASED GLUCOSE; Start 11/08/16 at 16:00 Glucose (Glutose) 22.5 gm Q15M PRN PO DECREASED GLUCOSE; Start 11/08/16 at 16: 00 Dextrose (D50w Syringe) 25 ml Q15M PRN IV DECREASED GLUCOSE; Start 11/08/16 at 16:00 Dextrose (D50w Syringe) 50 ml Q15M PRN IV DECREASED GLUCOSE; Start 11/08/16 at 16:00 Glucagon (Glucagen) 1 mg Q15M PRN IM DECREASED GLUCOSE; Start 11/08/16 at 16:00 Glucose (Glutose) 15 gm Q15M PRN BUCCAL DECREASED GLUCOSE; Start 11/08/16 at 16 :00 Acetaminophen/ Hydrocodone Bitart ([place] (5/325)) 1 tab Q4H PRN PO SEVERE PAIN 7-10 Last administered on 11/24/16 16:12; Admin Dose 1 TAB; Start 11/08/16 at 21 :00 Morphine Sulfate (morphine) 2 mg Q4H PRN IV PAIN LEVEL 7-10 Last administered on 11/22/16 17:20; Admin Dose 2 MG; Start 11/09/16 at 11:00 Collagenase (Santyl) 1 applic DAILY TOP Last administered on 11/24/16 10:35; Admin Dose 1 APPLIC; Start 11/09/16 at 16:00 Lorazepam (Ativan) 1 mg Q6H PRN IV AGITATION/ANXIETY Last administered on 01:42; Admin Dose 1 MG; Start 11/09/16 at 20:30 Pantoprazole (Protonix Iv) 40 mg BID@06,18 IV Last administered on 11/24/16 17: 38; Admin Dose 40 MG; Start 11/10/16 at 06:00 Sodium Phosphate (Neutra-Phos) 250 mg BID GTB Last administered on 11/24/16 09: 48; Admin Dose 250 MG; Start 11/10/16 at 09:00 Calcium/Vitamin D (Oyster Shell/ Vit-D (500/200)) 1 tab DAILY GTB Last administered on 11/24/16 09:48; Admin Dose 1 TAB; Start 11/12/16 at 11:00 Prochlorperazine 5 mg 5 mg Q6H PRN GTB NAUSEA AND/OR VOMITING Last administered on 11/23/16 17:45; Admin Dose 5 MG; Start 11/17/16 at 17:30 Sodium Chloride (1/2 NS) 1,000 ml @ 40 mls/hr Q24H IV Last administered on 11/24 15:27; Admin Dose 40 MLS/HR; Start 11/22/16 at 15:00 Insulin Glargine (Lantus) 16 unit DAILY SC Last administered on 11/24/16 10:11 ; Admin Dose 16 UNIT; Start 11/24/16 at 09:00 Diagnostic Test (Pha) (Accu-Chek) 1 ea 02 XX ; Start 11/24/16 at 02:00 Insulin Aspart (Novolog Insulin Pen) NOVOLOG *MILD* ALGORITHM Q4 SC Last administered on 11/24/16 17:45; Admin Dose 1 UNIT; Start 11/23/16 at 17:00 Assessment/Plan Additional Assessment/Plan IMP: 1. Vent dependent respiratory failure 2. End-stage renal failure on hemodialysis 3. Recent urinary tract infection with sepsis 4. Anemia of chronic disease and possibly secondary to renal dysfunction 5. Dysphagia with G-tube RECS: 1. Vent support 2. TF/free H20 3. Hemodialysis per nephrology 4. DVT and GI prophylaxis ASHLEY MOORE MD Nov 24, 2016 19:26
[2016-11-24] MEDS: ATORVASTATIN 40 MG TAB GTB SCH (20:57)
[2016-11-24] MEDS: morphine 2 MG INJ IV PRN (22:53)
[2016-11-25] VITALS (30 sets, daily range): BP systolic 90–129; BP diastolic 49–58; PULSE 59–107; RESP 14–26
[2016-11-25] MEDS: INSULIN ASPART [NOVOLOG] 3 ML PEN SC SCH ×6 (01:00→20:49)
[2016-11-25] MEDS: ACCU-CHEK XX SCH (02:06)
[2016-11-25] MEDS: SOD CHLORIDE 0.45% 1,000 ML IV SCH (05:00)
[2016-11-25] MEDS: PANTOPRAZOLE 40 MG INJ IV SCH ×2 (05:49→17:39)
[2016-11-25 06:25] LABS: ADD SCAN DIFF NO
[2016-11-25] MEDS: PROCHLORPERAZINE 5 MG TAB GTB PRN (06:32)
[2016-11-25 06:40] LABS: BASOPHIL # 0.1 10^3/ul (0.0-0.1); BASOPHILS % 0.4 % (0.0-2.0); EOSINOPHILS # 0.2 10^3/ul (0.0-0.5); EOSINOPHILS % 2.1 % (0.0-7.0); HEMOGLOBIN 10.2 g/dl (14.0-18.0); LYMPHOCYTES # 0.9 10^3/ul (0.8-2.9); LYMPHOCYTES % 7.7 % (15.0-51.0); MEAN CORPUSCULAR HEMOGLOBIN 31.2 pg (29.0-33.0); MEAN CORPUSCULAR HGB CONC 30.9 g/dl (32.0-37.0); MEAN CORPUSCULAR VOLUME 100.9 fl (82.0-101.0); MEAN PLATELET VOLUME 9.6 fl (7.4-10.4); MONOCYTE # 1.1 10^3/ul (0.3-0.9); MONOCYTES % 9.4 % (0.0-11.0); NEUTROPHIL # 9.1 10^3/ul (1.6-7.5); NEUTROPHILS % 79.9 % (39.0-77.0); PLATELET COUNT 247 10^3/UL (140-415); RED BLOOD COUNT 3.27 10^6/ul (4.70-6.10); RED CELL DISTRIBUTION WIDTH 19.2 % (11.5-14.5); WHITE BLOOD COUNT 11.3 10^3/ul (4.8-10.8)
[2016-11-25 06:55] LABS: CALCIUM 7.3 mg/dl (8.4-10.2); CREATININE 2.85 mg/dl (0.61-1.24)
[2016-11-25] MEDS: LIDOCAINE 5% PATCH TD SCH (08:24)
[2016-11-25] MEDS: LACTOBACILLUS CHEW TAB GTB SCH (08:24)
[2016-11-25] MEDS: CALCIUM/VITAMIN D (500/200) TAB GTB SCH (08:24)
[2016-11-25] MEDS: ASCORBIC ACID 500 MG TAB GTB SCH (08:25)
[2016-11-25] MEDS: NEUTRA-PHOS 250 MG PACKET GTB SCH ×2 (08:25→20:46)
[2016-11-25] MEDS: VITAMIN B COMPLEX/VIT C CAP GTB SCH (08:25)
[2016-11-25] MEDS: DULOXETINE 30 MG CAP DR GTB SCH (08:25)
[2016-11-25] MEDS: FLUTICASONE 0.05% 16 GM NAS SPRAY NASAL SCH ×2 (08:27→20:47)
[2016-11-25] MEDS: INSULIN GLARGINE [LANtus] 3 ML PEN SC SCH (08:29)
[2016-11-25] MEDS: COLLAGENASE 30 GM TUBE TOP SCH (10:16)
[2016-11-25] MEDS: SILDENAFIL 20 MG TAB GTB SCH ×2 (10:16→21:00)
--- NOTE | 2016-11-25 10:16 | CONS ---
Date/Time of Note Date/Time of Note DATE: 11/25/16 TIME: 10:16 Assessment/Plan Assessment/Plan Chief Complaint/Hosp Course - sepsis - h/o GIB - ascites, s/p paracentesis on 11/14/2016; not consistent with SBP. Took empiric cefepime (11/12/16-11/17/16) and metronidazole (10/14/2016-11/17/16) - near complete collapse of RLL with LLL atelectasis, pulmonary edema - h/o severe C diff colitis in 2016 - ESRD on HD - VDRF with trach - G tube dependence - PVD - s/p L BKA - abdominal pain - Abd X-ray 11/16/16 shows no e/o obstruction - MRSA nasal colonization, completed mupirocin for 10 days recommendations - cont. to f/u respiratory culture and CXR, two sets of blood cultures from dialysis access - will continue to monitor off antibiotics at this time Problems: Consultation Date/Type/Reason Admit Date/Time Nov 08, 2016 at 10:56 Initial Consult Date 11/08/16 Type of Consultation: id Referring Provider: GRACIE KATHLEEN Exam/Review of Systems Vital Signs Vitals Vital Signs Date Time Temp Pulse Resp B/P Pulse Ox O2 Delivery O2 Flow Rate FiO2 11/25/16 09:15 97 14 97 30 11/25/16 08:00 98.0 107/49 Mechanical Ventilator Intake and Output 11/24/16 11/24/16 11/25/16 15:00 23:00 07:00 Intake Total 200 ml 650 ml 1410 ml Balance 200 ml 650 ml 1410 ml Exam sleeping peacefully Respiratory: clear to auscultation, normal air movement Cardiovascular: nl pulses, regular rate and rhythm Gastrointestinal: nl liver, spleen, non-tender, soft Results Result Diagram: 11/25/16 0610 11/25/16 0610 Results 24 hrs Laboratory Tests Test 11/24/16 12:54 11/24/16 17:42 11/24/16 20:57 11/25/16 01:10 Bedside Glucose 175 156 139 143 Test 11/25/16 05:10 11/25/16 06:10 11/25/16 08:23 Bedside Glucose 159 208 White Blood Count 11.3 #H Red Blood Count 3.27 L Hemoglobin 10.2 L Hematocrit 33.0 L Mean Corpuscular Volume 100.9 Mean Corpuscular Hemoglobin 31.2 Mean Corpuscular Hemoglobin Concent 30.9 L Red Cell Distribution Width 19.2 H Platelet Count 247 # Mean Platelet Volume 9.6 Neutrophils % 79.9 H Lymphocytes % 7.7 L Monocytes % 9.4 Eosinophils % 2.1 Basophils % 0.4 Nucleated Red Blood Cells % 0.0 Neutrophils # 9.1 H Lymphocytes # 0.9 Monocytes # 1.1 H Eosinophils # 0.2 Basophils # 0.1 Nucleated Red Blood Cells # 0.0 Sodium Level 137 Potassium Level 4.0 Chloride Level 101 Carbon Dioxide Level 28 Anion Gap 12 Blood Urea Nitrogen 47 H Creatinine 2.85 H Glucose Level 180 Calcium Level 7.3 L Medications Medications Current Medications Lidocaine (Lidoderm) 1 patch DAILY TD Last administered on 11/25/16 08:24; Admin Dose 1 PATCH; Start 11/08/16 at 15:30 Acetaminophen (Tylenol Liquid) 325 mg Q4H PRN GTB MILD PAIN LEVEL 1-3 Last administered on 11/17/16 02:37; Admin Dose 325 MG; Start 11/08/16 at 15:30 Acetaminophen (Tylenol Liquid) 650 mg Q4H PRN GTB MODERATE PAIN LEVEL 4-6 Last administered on 11/21/16 20:54; Admin Dose 650 MG; Start 11/08/16 at 15:30 Ascorbic Acid (Vitamin C) 500 mg DAILY GTB Last administered on 11/25/16 08:25 ; Admin Dose 500 MG; Start 11/09/16 at 09:00 Atorvastatin Calcium (Lipitor) 40 mg QHS GTB Last administered on 11/24/16 20: 57; Admin Dose 40 MG; Start 11/08/16 at 21:00 Carvedilol (Coreg) 3.125 mg BID GTB Last administered on 11/21/16 20:54; Admin Dose 3.125 MG; Start 11/08/16 at 21:00 Duloxetine HCl (Cymbalta) 30 mg DAILY GTB Last administered on 11/25/16 08:25; Admin Dose 30 MG; Start 11/09/16 at 09:00 Fluticasone Propionate (Flonase 0.05% Nasal) 1 spray BID NASAL Last administered on 11/25/16 08:27; Admin Dose 1 SPRAY; Start 11/08/16 at 21:00 Lactobacillus Acidoph/Bulgaricus (Floranex) 1 tab DAILY GTB Last administered on 11/25/16 08:24; Admin Dose 1 TAB; Start 11/09/16 at 09:00 Sildenafil Citrate (Revatio) 20 mg BID GTB Last administered on 11/23/16 09:10 ; Admin Dose 20 MG; Start 11/08/16 at 21:00 Vitamin B Complex/ Vitamin C (Berocca) 1 cap DAILY GTB Last administered on 11/25 08:25; Admin Dose 1 CAP; Start 11/09/16 at 09:00 Miscellaneous Information 1 ea NOTE XX ; Start 11/08/16 at 16:00 Glucose (Glutose) 15 gm Q15M PRN PO DECREASED GLUCOSE; Start 11/08/16 at 16:00 Glucose (Glutose) 22.5 gm Q15M PRN PO DECREASED GLUCOSE; Start 11/08/16 at 16: 00 Dextrose (D50w Syringe) 25 ml Q15M PRN IV DECREASED GLUCOSE; Start 11/08/16 at 16:00 Dextrose (D50w Syringe) 50 ml Q15M PRN IV DECREASED GLUCOSE; Start 11/08/16 at 16:00 Glucagon (Glucagen) 1 mg Q15M PRN IM DECREASED GLUCOSE; Start 11/08/16 at 16:00 Glucose (Glutose) 15 gm Q15M PRN BUCCAL DECREASED GLUCOSE; Start 11/08/16 at 16 :00 Acetaminophen/ Hydrocodone Bitart ([place] (5/325)) 1 tab Q4H PRN PO SEVERE PAIN 7-10 Last administered on 11/24/16 16:12; Admin Dose 1 TAB; Start 11/08/16 at 21 :00 Morphine Sulfate (morphine) 2 mg Q4H PRN IV PAIN LEVEL 7-10 Last administered on 11/24/16 22:53; Admin Dose 2 MG; Start 11/09/16 at 11:00 Collagenase (Santyl) 1 applic DAILY TOP Last administered on 11/24/16 10:35; Admin Dose 1 APPLIC; Start 11/09/16 at 16:00 Lorazepam (Ativan) 1 mg Q6H PRN IV AGITATION/ANXIETY Last administered on 01:42; Admin Dose 1 MG; Start 11/09/16 at 20:30 Pantoprazole (Protonix Iv) 40 mg BID@06,18 IV Last administered on 11/25/16 05: 49; Admin Dose 40 MG; Start 11/10/16 at 06:00 Sodium Phosphate (Neutra-Phos) 250 mg BID GTB Last administered on 11/25/16 08: 25; Admin Dose 250 MG; Start 11/10/16 at 09:00 Calcium/Vitamin D (Oyster Shell/ Vit-D (500/200)) 1 tab DAILY GTB Last administered on 11/25/16 08:24; Admin Dose 1 TAB; Start 11/12/16 at 11:00 Prochlorperazine 5 mg 5 mg Q6H PRN GTB NAUSEA AND/OR VOMITING Last administered on 11/25/16 06:32; Admin Dose 5 MG; Start 11/17/16 at 17:30 Sodium Chloride (1/2 NS) 1,000 ml @ 40 mls/hr Q24H IV Last administered on 11/25 05:00; Admin Dose 40 MLS/HR; Start 11/22/16 at 15:00 Insulin Glargine (Lantus) 16 unit DAILY SC Last administered on 11/25/16 08:29 ; Admin Dose 16 UNIT; Start 11/24/16 at 09:00 Diagnostic Test (Pha) (Accu-Chek) 1 ea 02 XX Last administered on 11/25/16 02: 06; Admin Dose 1 EA; Start 11/24/16 at 02:00 Insulin Aspart (Novolog Insulin Pen) NOVOLOG *MILD* ALGORITHM Q4 SC Last administered on 11/25/16 08:30; Admin Dose 2 UNIT; Start 11/23/16 at 17:00 JOYCE SOARES MD Nov 25, 2016 10:16
--- NOTE | 2016-11-25 12:09 | CONS ---
Date/Time of Note Date/Time of Note DATE: 11/25/16 TIME: 12:07 Consult Date/Type/Reason Admit Date/Time Nov 08, 2016 at 10:56 Initial Consult Date 11/09/16 Type of Consultation: neph Ordering Provider: GRACIE KATHLEEN The patient is stable. No events overnight. No fevers, chills, nausea, vomiting. poc reviewed with dr. sanders. OBJECTIVE: HEENT: Head is normocephalic. NECK: Supple. HEART: Regular rate. LUNGS: Show diminished breath sounds at base. ABDOMEN: Soft, nontender to palpation. No rebound or guarding. EXTREMITIES: Negative for clubbing, cyanosis, or edema. Positive BKA. DERMATOLOGIC: No rashes. MUSCULOSKELETAL: No joint effusions. NEUROLOGIC: No change in exam. Objective Vital Signs Date Time Temp Pulse Resp B/P Pulse Ox O2 Delivery O2 Flow Rate FiO2 11/25/16 12:04 98.0 59 18 104/55 98 11/25/16 11:05 30 11/25/16 10:00 Mechanical Ventilator Intake and Output 11/24/16 11/24/16 11/25/16 15:00 23:00 07:00 Intake Total 200 ml 650 ml 1410 ml Balance 200 ml 650 ml 1410 ml Results/Medications Result Diagram: 11/25/16 0610 11/25/16 0610 Results 24 hrs Laboratory Tests Test 11/24/16 12:54 11/24/16 17:42 11/24/16 20:57 11/25/16 01:10 Bedside Glucose 175 156 139 143 Test 11/25/16 05:10 11/25/16 06:10 11/25/16 08:23 Bedside Glucose 159 208 White Blood Count 11.3 #H Red Blood Count 3.27 L Hemoglobin 10.2 L Hematocrit 33.0 L Mean Corpuscular Volume 100.9 Mean Corpuscular Hemoglobin 31.2 Mean Corpuscular Hemoglobin Concent 30.9 L Red Cell Distribution Width 19.2 H Platelet Count 247 # Mean Platelet Volume 9.6 Neutrophils % 79.9 H Lymphocytes % 7.7 L Monocytes % 9.4 Eosinophils % 2.1 Basophils % 0.4 Nucleated Red Blood Cells % 0.0 Neutrophils # 9.1 H Lymphocytes # 0.9 Monocytes # 1.1 H Eosinophils # 0.2 Basophils # 0.1 Nucleated Red Blood Cells # 0.0 Sodium Level 137 Potassium Level 4.0 Chloride Level 101 Carbon Dioxide Level 28 Anion Gap 12 Blood Urea Nitrogen 47 H Creatinine 2.85 H Glucose Level 180 Calcium Level 7.3 L Medications Current Medications Lidocaine (Lidoderm) 1 patch DAILY TD Last administered on 11/25/16 08:24; Admin Dose 1 PATCH; Start 11/08/16 at 15:30 Acetaminophen (Tylenol Liquid) 325 mg Q4H PRN GTB MILD PAIN LEVEL 1-3 Last administered on 11/17/16 02:37; Admin Dose 325 MG; Start 11/08/16 at 15:30 Acetaminophen (Tylenol Liquid) 650 mg Q4H PRN GTB MODERATE PAIN LEVEL 4-6 Last administered on 11/21/16 20:54; Admin Dose 650 MG; Start 11/08/16 at 15:30 Ascorbic Acid (Vitamin C) 500 mg DAILY GTB Last administered on 11/25/16 08:25 ; Admin Dose 500 MG; Start 11/09/16 at 09:00 Atorvastatin Calcium (Lipitor) 40 mg QHS GTB Last administered on 11/24/16 20: 57; Admin Dose 40 MG; Start 11/08/16 at 21:00 Carvedilol (Coreg) 3.125 mg BID GTB Last administered on 11/21/16 20:54; Admin Dose 3.125 MG; Start 11/08/16 at 21:00 Duloxetine HCl (Cymbalta) 30 mg DAILY GTB Last administered on 11/25/16 08:25; Admin Dose 30 MG; Start 11/09/16 at 09:00 Fluticasone Propionate (Flonase 0.05% Nasal) 1 spray BID NASAL Last administered on 11/25/16 08:27; Admin Dose 1 SPRAY; Start 11/08/16 at 21:00 Lactobacillus Acidoph/Bulgaricus (Floranex) 1 tab DAILY GTB Last administered on 11/25/16 08:24; Admin Dose 1 TAB; Start 11/09/16 at 09:00 Sildenafil Citrate (Revatio) 20 mg BID GTB Last administered on 11/25/16 10:16 ; Admin Dose 20 MG; Start 11/08/16 at 21:00 Vitamin B Complex/ Vitamin C (Berocca) 1 cap DAILY GTB Last administered on 11/25 08:25; Admin Dose 1 CAP; Start 11/09/16 at 09:00 Miscellaneous Information 1 ea NOTE XX ; Start 11/08/16 at 16:00 Glucose (Glutose) 15 gm Q15M PRN PO DECREASED GLUCOSE; Start 11/08/16 at 16:00 Glucose (Glutose) 22.5 gm Q15M PRN PO DECREASED GLUCOSE; Start 11/08/16 at 16: 00 Dextrose (D50w Syringe) 25 ml Q15M PRN IV DECREASED GLUCOSE; Start 11/08/16 at 16:00 Dextrose (D50w Syringe) 50 ml Q15M PRN IV DECREASED GLUCOSE; Start 11/08/16 at 16:00 Glucagon (Glucagen) 1 mg Q15M PRN IM DECREASED GLUCOSE; Start 11/08/16 at 16:00 Glucose (Glutose) 15 gm Q15M PRN BUCCAL DECREASED GLUCOSE; Start 11/08/16 at 16 :00 Acetaminophen/ Hydrocodone Bitart ([place] (5/325)) 1 tab Q4H PRN PO SEVERE PAIN 7-10 Last administered on 11/24/16 16:12; Admin Dose 1 TAB; Start 11/08/16 at 21 :00 Morphine Sulfate (morphine) 2 mg Q4H PRN IV PAIN LEVEL 7-10 Last administered on 11/24/16 22:53; Admin Dose 2 MG; Start 11/09/16 at 11:00 Collagenase (Santyl) 1 applic DAILY TOP Last administered on 11/25/16 10:16; Admin Dose 1 APPLIC; Start 11/09/16 at 16:00 Lorazepam (Ativan) 1 mg Q6H PRN IV AGITATION/ANXIETY Last administered on 01:42; Admin Dose 1 MG; Start 11/09/16 at 20:30 Pantoprazole (Protonix Iv) 40 mg BID@,18 IV Last administered on 11/25/16 05: 49; Admin Dose 40 MG; Start 11/10/16 at 06:00 Sodium Phosphate (Neutra-Phos) 250 mg BID GTB Last administered on 11/25/16 08: 25; Admin Dose 250 MG; Start 11/10/16 at 09:00 Calcium/Vitamin D (Oyster Shell/ Vit-D (500/200)) 1 tab DAILY GTB Last administered on 11/25/16 08:24; Admin Dose 1 TAB; Start 11/12/16 at 11:00 Prochlorperazine 5 mg 5 mg Q6H PRN GTB NAUSEA AND/OR VOMITING Last administered on 11/25/16 06:32; Admin Dose 5 MG; Start 11/17/16 at 17:30 Sodium Chloride (1/2 NS) 1,000 ml @ 40 mls/hr Q24H IV Last administered on 11/25 05:00; Admin Dose 40 MLS/HR; Start 11/22/16 at 15:00 Insulin Glargine (Lantus) 16 unit DAILY SC Last administered on 11/25/16 08:29 ; Admin Dose 16 UNIT; Start 11/24/16 at 09:00 Diagnostic Test (Pha) (Accu-Chek) 1 ea 02 XX Last administered on 11/25/16 02: 06; Admin Dose 1 EA; Start 11/24/16 at 02:00 Insulin Aspart (Novolog Insulin Pen) NOVOLOG *MILD* ALGORITHM Q4 SC Last administered on 11/25/16 08:30; Admin Dose 2 UNIT; Start 11/23/16 at 17:00 Assessment/Plan Chief Complaint/Hosp Course ASSESSMENT AND PLAN: 1. End-stage renal disease. The patient is scheduled for hemodialysis qod. assess daily for hd needs. all meds dosed ok. Will dialyze for 3 hours on a 2K bath, calcium 2.5. assess daily for hd needs. 2. Anemia of chronic disease. Continue to monitor H and H levels. Will give Epogen as needed. 3. Mineral bone disorder. Continue to monitor calcium and phosphorus levels. Continue Neutra-Phos. 4. Volume overload, clinically improving. Continue ultrafiltration with dialysis. 5. Sepsis secondary to pneumonia. The patient has completed antibiotic course. Continue to monitor. 6. Ventilatory-dependent respiratory failure. Continue to monitor. Follow up with pulmonary. 7. Dysphagia, status post percutaneous endoscopic gastrostomy. Continue tube feeds. 8. Coronary artery disease. Continue current medical management. 9. Diabetes. Continue Accu-Cheks and sliding scale. 10. Status post gastrointestinal bleed. 11. Depression and anxiety disorder. Continue current treatment plan. 12. Hypertension. Continue to monitor closely. Minimize ultrafiltration. 13. History of congestive heart failure. Continue medical management. Problems: SOBIA MENDEZ MD Nov 25, 2016 12:09
[2016-11-25] MEDS: HYDROCODONE/APAP (5/325) TAB PO PRN ×2 (13:52→20:45)
--- NOTE | 2016-11-25 14:50 | PN ---
Date/Time of Note Date/Time of Note DATE: 11/25/16 TIME: 14:47 Assessment/Plan VTE Prophylaxis VTE Prophylaxis Intervention: other Lines/Catheters IV Catheter Type (from Nrs): Peripheral IV Urinary Cath still in place: No Assessment/Plan Assessment/Plan - Esophagitis per EGD. Continue Protonix Dr. Hernandez is following in gastroenterology consultation. - Anemia of chronic disease, on Epogen, continue to monitor hemoglobin and hematocrit, transfuse as needed. - Ascites, SBP ruled out, Status post paracentesis 11/14,ascitic fluid culture negative. - Systemic inflammatory response syndrome with leukocytosis, patient is followed by Dr. Benjamin deluna in infection disease consultation. - End-stage renal disease, hemodialysis dependent. Continue hemodialysis per nephrology. - Chronic respiratory failure with tracheostomy. Dr. Sahu is following in pulmonology consultation. - Coronary artery disease with history of PCI. - Diastolic congestive heart failure - Pulmonary hypertension - Peripheral vascular disease, status post left BKA. - Diabetes mellitus type 2, continue NovoLog per sliding scale. - Sacral decub present on admission. Continue current wound care. D/C planning DW dR Miram[place] Subjective 24 Hr Interval Summary Constitutional: requiring IVF, requiring O2 Eyes: no complaints ENT: no complaints Respiratory: pain Cardiovascular: no complaints Gastrointestinal: no complaints Genitourinary: no complaints Musculoskeletal: no complaints Skin: no complaints Neurologic: no complaints Exam/Review of Systems Vital Signs Vitals Vital Signs Date Time Temp Pulse Resp B/P Pulse Ox O2 Delivery O2 Flow Rate FiO2 11/25/16 13:20 101 25 97 30 11/25/16 12:04 98.0 104/55 11/25/16 12:00 Mechanical Ventilator Intake and Output 11/24/16 11/24/16 11/25/16 15:00 23:00 07:00 Intake Total 200 ml 650 ml 1410 ml Balance 200 ml 650 ml 1410 ml Exam Constitutional: alert Psych: nl mood/affect Eyes: nl conjunctiva ENMT: nl external ears & nose Neck: non-tender Respiratory: diminished breath sounds Cardiovascular: nl pulses Gastrointestinal: non-tender, soft Musculoskeletal: other (left AKA) Extremities: normal pulses Neurological: other (alert/awake, follows simple commads) Skin: other Lymph: nontender Results Result Diagram: 11/25/16 0610 11/25/16 0610 Results 24 hrs Laboratory Tests Test 11/24/16 17:42 11/24/16 20:57 11/25/16 01:10 11/25/16 05:10 Bedside Glucose 156 139 143 159 Test 11/25/16 06:10 11/25/16 08:23 11/25/16 12:49 White Blood Count 11.3 #H Red Blood Count 3.27 L Hemoglobin 10.2 L Hematocrit 33.0 L Mean Corpuscular Volume 100.9 Mean Corpuscular Hemoglobin 31.2 Mean Corpuscular Hemoglobin Concent 30.9 L Red Cell Distribution Width 19.2 H Platelet Count 247 # Mean Platelet Volume 9.6 Neutrophils % 79.9 H Lymphocytes % 7.7 L Monocytes % 9.4 Eosinophils % 2.1 Basophils % 0.4 Nucleated Red Blood Cells % 0.0 Neutrophils # 9.1 H Lymphocytes # 0.9 Monocytes # 1.1 H Eosinophils # 0.2 Basophils # 0.1 Nucleated Red Blood Cells # 0.0 Sodium Level 137 Potassium Level 4.0 Chloride Level 101 Carbon Dioxide Level 28 Anion Gap 12 Blood Urea Nitrogen 47 H Creatinine 2.85 H Glucose Level 180 Calcium Level 7.3 L Bedside Glucose 208 165 Medications Medications Current Medications Lidocaine (Lidoderm) 1 patch DAILY TD Last administered on 11/25/16 08:24; Admin Dose 1 PATCH; Start 11/08/16 at 15:30 Acetaminophen (Tylenol Liquid) 325 mg Q4H PRN GTB MILD PAIN LEVEL 1-3 Last administered on 11/17/16 02:37; Admin Dose 325 MG; Start 11/08/16 at 15:30 Acetaminophen (Tylenol Liquid) 650 mg Q4H PRN GTB MODERATE PAIN LEVEL 4-6 Last administered on 11/21/16 20:54; Admin Dose 650 MG; Start 11/08/16 at 15:30 Ascorbic Acid (Vitamin C) 500 mg DAILY GTB Last administered on 11/25/16 08:25 ; Admin Dose 500 MG; Start 11/09/16 at 09:00 Atorvastatin Calcium (Lipitor) 40 mg QHS GTB Last administered on 11/24/16 20: 57; Admin Dose 40 MG; Start 11/08/16 at 21:00 Carvedilol (Coreg) 3.125 mg BID GTB Last administered on 11/21/16 20:54; Admin Dose 3.125 MG; Start 11/08/16 at 21:00 Duloxetine HCl (Cymbalta) 30 mg DAILY GTB Last administered on 11/25/16 08:25; Admin Dose 30 MG; Start 11/09/16 at 09:00 Fluticasone Propionate (Flonase 0.05% Nasal) 1 spray BID NASAL Last administered on 11/25/16 08:27; Admin Dose 1 SPRAY; Start 11/08/16 at 21:00 Lactobacillus Acidoph/Bulgaricus (Floranex) 1 tab DAILY GTB Last administered on 11/25/16 08:24; Admin Dose 1 TAB; Start 11/09/16 at 09:00 Sildenafil Citrate (Revatio) 20 mg BID GTB Last administered on 11/25/16 10:16 ; Admin Dose 20 MG; Start 11/08/16 at 21:00 Vitamin B Complex/ Vitamin C (Berocca) 1 cap DAILY GTB Last administered on 11/25 08:25; Admin Dose 1 CAP; Start 11/09/16 at 09:00 Miscellaneous Information 1 ea NOTE XX ; Start 11/08/16 at 16:00 Glucose (Glutose) 15 gm Q15M PRN PO DECREASED GLUCOSE; Start 11/08/16 at 16:00 Glucose (Glutose) 22.5 gm Q15M PRN PO DECREASED GLUCOSE; Start 11/08/16 at 16: 00 Dextrose (D50w Syringe) 25 ml Q15M PRN IV DECREASED GLUCOSE; Start 11/08/16 at 16:00 Dextrose (D50w Syringe) 50 ml Q15M PRN IV DECREASED GLUCOSE; Start 11/08/16 at 16:00 Glucagon (Glucagen) 1 mg Q15M PRN IM DECREASED GLUCOSE; Start 11/08/16 at 16:00 Glucose (Glutose) 15 gm Q15M PRN BUCCAL DECREASED GLUCOSE; Start 11/08/16 at 16 :00 Acetaminophen/ Hydrocodone Bitart ([place] (5/325)) 1 tab Q4H PRN PO SEVERE PAIN 7-10 Last administered on 11/25/16 13:52; Admin Dose 1 TAB; Start 11/08/16 at 21 :00 Morphine Sulfate (morphine) 2 mg Q4H PRN IV PAIN LEVEL 7-10 Last administered on 11/24/16 22:53; Admin Dose 2 MG; Start 11/09/16 at 11:00 Collagenase (Santyl) 1 applic DAILY TOP Last administered on 11/25/16 10:16; Admin Dose 1 APPLIC; Start 11/09/16 at 16:00 Lorazepam (Ativan) 1 mg Q6H PRN IV AGITATION/ANXIETY Last administered on 01:42; Admin Dose 1 MG; Start 11/09/16 at 20:30 Pantoprazole (Protonix Iv) 40 mg BID@06,18 IV Last administered on 11/25/16 05: 49; Admin Dose 40 MG; Start 11/10/16 at 06:00 Sodium Phosphate (Neutra-Phos) 250 mg BID GTB Last administered on 11/25/16 08: 25; Admin Dose 250 MG; Start 11/10/16 at 09:00 Calcium/Vitamin D (Oyster Shell/ Vit-D (500/200)) 1 tab DAILY GTB Last administered on 11/25/16 08:24; Admin Dose 1 TAB; Start 11/12/16 at 11:00 Prochlorperazine 5 mg 5 mg Q6H PRN GTB NAUSEA AND/OR VOMITING Last administered on 11/25/16 06:32; Admin Dose 5 MG; Start 11/17/16 at 17:30 Sodium Chloride (1/2 NS) 1,000 ml @ 40 mls/hr Q24H IV Last administered on 11/25 05:00; Admin Dose 40 MLS/HR; Start 11/22/16 at 15:00 Insulin Glargine (Lantus) 16 unit DAILY SC Last administered on 11/25/16 08:29 ; Admin Dose 16 UNIT; Start 11/24/16 at 09:00 Diagnostic Test (Pha) (Accu-Chek) 1 ea 02 XX Last administered on 11/25/16 02: 06; Admin Dose 1 EA; Start 11/24/16 at 02:00 Insulin Aspart (Novolog Insulin Pen) NOVOLOG *MILD* ALGORITHM Q4 SC Last administered on 11/25/16 13:26; Admin Dose 1 UNIT; Start 11/23/16 at 17:00 GRACIE KATHLEEN Nov 25, 2016 14:50
--- NOTE | 2016-11-25 16:33 | CONS ---
Date/Time of Note Date/Time of Note DATE: 11/25/16 TIME: 16:32 Consult Date/Type/Reason Admit Date/Time Nov 08, 2016 at 10:56 Initial Consult Date 11/09/16 Type of Consultation: Pulm Ordering Provider: GRACIE KATHLEEN Subjective No events. On MV Objective Vital Signs Date Time Temp Pulse Resp B/P Pulse Ox O2 Delivery O2 Flow Rate FiO2 11/25/16 16:21 84 11/25/16 16:05 97.6 18 112/58 98 11/25/16 15:10 30 11/25/16 14:00 Mechanical Ventilator Intake and Output 11/24/16 11/24/16 11/25/16 15:00 23:00 07:00 Intake Total 200 ml 650 ml 1410 ml Balance 200 ml 650 ml 1410 ml Exam HEENT: Pupils equal, round, and reactive to light. Tracheostomy site clean and intact. CARDIAC: S1, S2, RRR CHEST: Diminished air entry bilaterally. ABDOMEN: Mildly distended. No bowel sounds. EXTREMITIES: No cyanosis, clubbing edema +1 Results/Medications Result Diagram: 11/25/16 0610 11/25/16 0610 Results 24 hrs Laboratory Tests Test 11/24/16 17:42 11/24/16 20:57 11/25/16 01:10 11/25/16 05:10 Bedside Glucose 156 139 143 159 Test 11/25/16 06:10 11/25/16 08:23 11/25/16 12:49 White Blood Count 11.3 #H Red Blood Count 3.27 L Hemoglobin 10.2 L Hematocrit 33.0 L Mean Corpuscular Volume 100.9 Mean Corpuscular Hemoglobin 31.2 Mean Corpuscular Hemoglobin Concent 30.9 L Red Cell Distribution Width 19.2 H Platelet Count 247 # Mean Platelet Volume 9.6 Neutrophils % 79.9 H Lymphocytes % 7.7 L Monocytes % 9.4 Eosinophils % 2.1 Basophils % 0.4 Nucleated Red Blood Cells % 0.0 Neutrophils # 9.1 H Lymphocytes # 0.9 Monocytes # 1.1 H Eosinophils # 0.2 Basophils # 0.1 Nucleated Red Blood Cells # 0.0 Sodium Level 137 Potassium Level 4.0 Chloride Level 101 Carbon Dioxide Level 28 Anion Gap 12 Blood Urea Nitrogen 47 H Creatinine 2.85 H Glucose Level 180 Calcium Level 7.3 L Bedside Glucose 208 165 Medications Current Medications Lidocaine (Lidoderm) 1 patch DAILY TD Last administered on 11/25/16 08:24; Admin Dose 1 PATCH; Start 11/08/16 at 15:30 Acetaminophen (Tylenol Liquid) 325 mg Q4H PRN GTB MILD PAIN LEVEL 1-3 Last administered on 11/17/16 02:37; Admin Dose 325 MG; Start 11/08/16 at 15:30 Acetaminophen (Tylenol Liquid) 650 mg Q4H PRN GTB MODERATE PAIN LEVEL 4-6 Last administered on 11/21/16 20:54; Admin Dose 650 MG; Start 11/08/16 at 15:30 Ascorbic Acid (Vitamin C) 500 mg DAILY GTB Last administered on 11/25/16 08:25 ; Admin Dose 500 MG; Start 11/09/16 at 09:00 Atorvastatin Calcium (Lipitor) 40 mg QHS GTB Last administered on 11/24/16 20: 57; Admin Dose 40 MG; Start 11/08/16 at 21:00 Carvedilol (Coreg) 3.125 mg BID GTB Last administered on 11/21/16 20:54; Admin Dose 3.125 MG; Start 11/08/16 at 21:00 Duloxetine HCl (Cymbalta) 30 mg DAILY GTB Last administered on 11/25/16 08:25; Admin Dose 30 MG; Start 11/09/16 at 09:00 Fluticasone Propionate (Flonase 0.05% Nasal) 1 spray BID NASAL Last administered on 11/25/16 08:27; Admin Dose 1 SPRAY; Start 11/08/16 at 21:00 Lactobacillus Acidoph/Bulgaricus (Floranex) 1 tab DAILY GTB Last administered on 11/25/16 08:24; Admin Dose 1 TAB; Start 11/09/16 at 09:00 Sildenafil Citrate (Revatio) 20 mg BID GTB Last administered on 11/25/16 10:16 ; Admin Dose 20 MG; Start 11/08/16 at 21:00 Vitamin B Complex/ Vitamin C (Berocca) 1 cap DAILY GTB Last administered on 11/25 08:25; Admin Dose 1 CAP; Start 11/09/16 at 09:00 Miscellaneous Information 1 ea NOTE XX ; Start 11/08/16 at 16:00 Glucose (Glutose) 15 gm Q15M PRN PO DECREASED GLUCOSE; Start 11/08/16 at 16:00 Glucose (Glutose) 22.5 gm Q15M PRN PO DECREASED GLUCOSE; Start 11/08/16 at 16: 00 Dextrose (D50w Syringe) 25 ml Q15M PRN IV DECREASED GLUCOSE; Start 11/08/16 at 16:00 Dextrose (D50w Syringe) 50 ml Q15M PRN IV DECREASED GLUCOSE; Start 11/08/16 at 16:00 Glucagon (Glucagen) 1 mg Q15M PRN IM DECREASED GLUCOSE; Start 11/08/16 at 16:00 Glucose (Glutose) 15 gm Q15M PRN BUCCAL DECREASED GLUCOSE; Start 11/08/16 at 16 :00 Acetaminophen/ Hydrocodone Bitart ([place] (5/325)) 1 tab Q4H PRN PO SEVERE PAIN 7-10 Last administered on 11/25/16 13:52; Admin Dose 1 TAB; Start 11/08/16 at 21 :00 Morphine Sulfate (morphine) 2 mg Q4H PRN IV PAIN LEVEL 7-10 Last administered on 11/24/16 22:53; Admin Dose 2 MG; Start 11/09/16 at 11:00 Collagenase (Santyl) 1 applic DAILY TOP Last administered on 11/25/16 10:16; Admin Dose 1 APPLIC; Start 11/09/16 at 16:00 Lorazepam (Ativan) 1 mg Q6H PRN IV AGITATION/ANXIETY Last administered on 01:42; Admin Dose 1 MG; Start 11/09/16 at 20:30 Pantoprazole (Protonix Iv) 40 mg BID@18 IV Last administered on 11/25/16 05: 49; Admin Dose 40 MG; Start 11/10/16 at 06:00 Sodium Phosphate (Neutra-Phos) 250 mg BID GTB Last administered on 11/25/16 08: 25; Admin Dose 250 MG; Start 11/10/16 at 09:00 Calcium/Vitamin D (Oyster Shell/ Vit-D (500/200)) 1 tab DAILY GTB Last administered on 11/25/16 08:24; Admin Dose 1 TAB; Start 11/12/16 at 11:00 Prochlorperazine 5 mg 5 mg Q6H PRN GTB NAUSEA AND/OR VOMITING Last administered on 11/25/16 06:32; Admin Dose 5 MG; Start 11/17/16 at 17:30 Sodium Chloride (1/2 NS) 1,000 ml @ 40 mls/hr Q24H IV Last administered on 11/25 05:00; Admin Dose 40 MLS/HR; Start 11/22/16 at 15:00 Insulin Glargine (Lantus) 16 unit DAILY SC Last administered on 11/25/16 08:29 ; Admin Dose 16 UNIT; Start 11/24/16 at 09:00 Diagnostic Test (Pha) (Accu-Chek) 1 ea 02 XX Last administered on 11/25/16 02: 06; Admin Dose 1 EA; Start 11/24/16 at 02:00 Insulin Aspart (Novolog Insulin Pen) NOVOLOG *MILD* ALGORITHM Q4 SC Last administered on 11/25/16 13:26; Admin Dose 1 UNIT; Start 11/23/16 at 17:00 Assessment/Plan Additional Assessment/Plan IMP: 1. Vent dependent respiratory failure 2. End-stage renal failure on hemodialysis 3. Recent urinary tract infection with sepsis 4. Anemia of chronic disease and possibly secondary to renal dysfunction 5. Dysphagia with G-tube RECS: 1. Vent support 2. TF/free H20 3. Hemodialysis per nephrology 4. DVT and GI prophylaxis 5. D/C planning ASHLEY MOORE MD Nov 25, 2016 16:33
[2016-11-25] MEDS: ATORVASTATIN 40 MG TAB GTB SCH (20:45)
[2016-11-25] MEDS: LORAZEPAM 2 MG INJ IV PRN (22:46)
[2016-11-26] VITALS (33 sets, daily range): BP systolic 89–129; BP diastolic 41–66; PULSE 73–159; RESP 0–24
[2016-11-26] MEDS: INSULIN ASPART [NOVOLOG] 3 ML PEN SC SCH ×6 (01:00→21:00)
[2016-11-26] MEDS: ACCU-CHEK XX SCH (01:34)
[2016-11-26] MEDS: PANTOPRAZOLE 40 MG INJ IV SCH ×2 (05:43→18:29)
[2016-11-26] MEDS: morphine 2 MG INJ IV PRN ×2 (05:44→15:08)
[2016-11-26 06:28] LABS: ADD SCAN DIFF NO; BASOPHILS % 0.4 % (0.0-2.0); EOSINOPHILS # 0.3 10^3/ul (0.0-0.5); EOSINOPHILS % 2.7 % (0.0-7.0); HEMATOCRIT 36.7 % (42.0-52.0); HEMOGLOBIN 11.3 g/dl (14.0-18.0); LYMPHOCYTES % 9.8 % (15.0-51.0); MEAN CORPUSCULAR HGB CONC 30.8 g/dl (32.0-37.0); MEAN CORPUSCULAR VOLUME 100.8 fl (82.0-101.0); MEAN PLATELET VOLUME 9.6 fl (7.4-10.4); MONOCYTES % 9.7 % (0.0-11.0); NEUTROPHILS % 76.7 % (39.0-77.0); PLATELET COUNT 266 10^3/UL (140-415); RED BLOOD COUNT 3.64 10^6/ul (4.70-6.10); WHITE BLOOD COUNT 10.4 10^3/ul (4.8-10.8)
[2016-11-26 06:47] LABS: POTASSIUM 4.3 mmol/L (3.5-5.1)
[2016-11-26 06:50] LABS: CALCIUM 7.4 mg/dl (8.4-10.2); CREATININE 3.25 mg/dl (0.61-1.24)
[2016-11-26] MEDS: DULOXETINE 30 MG CAP DR GTB SCH (08:53)
[2016-11-26] MEDS: ASCORBIC ACID 500 MG TAB GTB SCH (08:53)
[2016-11-26] MEDS: NEUTRA-PHOS 250 MG PACKET GTB SCH ×2 (08:53→21:26)
[2016-11-26] MEDS: VITAMIN B COMPLEX/VIT C CAP GTB SCH (08:53)
[2016-11-26] MEDS: LACTOBACILLUS CHEW TAB GTB SCH (08:53)
[2016-11-26] MEDS: FLUTICASONE 0.05% 16 GM NAS SPRAY NASAL SCH ×2 (08:53→21:37)
[2016-11-26] MEDS: CALCIUM/VITAMIN D (500/200) TAB GTB SCH (08:53)
[2016-11-26] MEDS: COLLAGENASE 30 GM TUBE TOP SCH (08:56)
[2016-11-26] MEDS: INSULIN GLARGINE [LANtus] 3 ML PEN SC SCH (08:56)
[2016-11-26] MEDS: LIDOCAINE 5% PATCH TD SCH (08:56)
[2016-11-26] MEDS: SILDENAFIL 20 MG TAB GTB SCH ×2 (09:01→21:00)
--- NOTE | 2016-11-26 09:21 | PN ---
DATE: 11/26/2016 SUBJECTIVE: The patient is stable, no acute events overnight. No fevers, chills, nausea, vomiting. OBJECTIVE: VITAL SIGNS: Blood pressure is 112/62, respirations , pulse 92, temperature 98.8. HEENT: Head is normocephalic. NECK: Supple. HEART: Regular rate. LUNGS: Show diminished breath sounds at base. ABDOMEN: Soft, nontender to palpation without rebound or guarding. EXTREMITIES: Negative for clubbing, cyanosis, no edema, positive BKA. DERMATOLOGIC: No rashes. MUSCULOSKELETAL: No joint effusions. NEUROLOGIC: No change in exam. MEDICATIONS: The patient's medications have been reviewed. LABORATORY DATA: Shows a sodium 137, potassium 4.3, chloride 100, BUN 57, creatinine 3.25, calcium 7.4, hemoglobin 10.4, hematocrit of 11.3, hematocrit 36.6, platelet count 266. ASSESSMENT AND PLAN: 1. End-stage renal disease. The patient is scheduled for hemodialysis today with dialysis for 3 ho urs, 2K bath, calcium 2.5. 3. Anemia of chronic disease. Continue to monitor hemoglobin and hematocrit levels. Continue Epog en. 4. Mineral bone disorder. Continue to monitor calcium and phosphorus levels. 5. Volume overload, improving. Continue ultrafiltration dialysis. 6. Sepsis secondary to pneumonia. The patient has completed antibiotic course. 7. Ventilatory dependent respiratory failure. Vent settings reviewed. Continue to monitor, follow up with pulmonary. 8. Dysphagia, status post PEG. Continue tube feeds. 9. Coronary artery disease. Continue medical management. 10. Diabetes. Continue Accu-Cheks and sliding scale. 11. Hypertension. Continue to monitor blood pressures closely. 12. Congestive heart failure. Continue current medical management. Follow up with cardiology. 13. Status post gastrointestinal bleed. Dictated By: SARAHI RINALDI/OLESYA Conf#: [id number] DID#: [id number]
--- NOTE | 2016-11-26 10:58 | CONS ---
Date/Time of Note Date/Time of Note DATE: 11/26/16 TIME: 10:57 Assessment/Plan Assessment/Plan Additional Assessment/Plan Paroxysmal atrial tachycardia Possible GI bleed Respiratory failure status post tracheostomy Diastolic congestive heart failure End-stage renal disease on hemodialysis CAD with history of PCI Diabetes Peripheral arterial disease with history of amputation Pulmonary hypertension Hypotension, improved -Blood pressure trend improving, holding parameters on coreg and sildenafil. Fluid management via hemodialysis as per our nephrology colleagues. Consultation Date/Type/Reason Admit Date/Time Nov 08, 2016 at 10:56 Initial Consult Date 11/09/16 Type of Consultation: cv Referring Provider: GRACIE KATHLEEN 24 HR Interval Summary Free Text/Dictation Patient seen and examined Exam/Review of Systems Vital Signs Vitals Vital Signs Date Time Temp Pulse Resp B/P Pulse Ox O2 Delivery O2 Flow Rate FiO2 11/26/16 09:30 95 15 96 30 11/26/16 08:32 98.0 113/58 11/26/16 04:00 Mechanical Ventilator Trach Collar Intake and Output 11/25/16 11/25/16 11/26/16 15:00 23:00 07:00 Intake Total 980 ml Balance 980 ml Exam Sleeping, no apparent distress Head: normocephalic Neck: other (Tracheostomy) Respiratory: other (Coarse breath sounds bilaterally, no wheezing) Cardiovascular: other (S1-S2 heard), regular rate and rhythm Gastrointestinal: bowel sounds, non-tender, soft Extremities: edema Results Result Diagram: 11/26/16 0545 11/26/16 0545 Results 24 hrs Laboratory Tests Test 11/25/16 12:49 11/25/16 17:10 11/25/16 20:48 11/26/16 05:45 Bedside Glucose 165 105 119 White Blood Count 10.4 Red Blood Count 3.64 L Hemoglobin 11.3 L Hematocrit 36.7 L Mean Corpuscular Volume 100.8 Mean Corpuscular Hemoglobin 31.0 Mean Corpuscular Hemoglobin Concent 30.8 L Red Cell Distribution Width 19.0 H Platelet Count 266 Mean Platelet Volume 9.6 Neutrophils % 76.7 Lymphocytes % 9.8 L Monocytes % 9.7 Eosinophils % 2.7 Basophils % 0.4 Nucleated Red Blood Cells % 0.0 Neutrophils # 8.0 H Lymphocytes # 1.0 Monocytes # 1.0 H Eosinophils # 0.3 Basophils # 0.0 Nucleated Red Blood Cells # 0.0 Sodium Level 137 Potassium Level 4.3 Chloride Level 100 Carbon Dioxide Level 24 Anion Gap 17 H Blood Urea Nitrogen 57 H Creatinine 3.25 H Glucose Level 173 Calcium Level 7.4 L Test 11/26/16 05:50 11/26/16 08:52 Bedside Glucose 157 205 Medications Medications Current Medications Lidocaine (Lidoderm) 1 patch DAILY TD Last administered on 11/26/16 08:56; Admin Dose 1 PATCH; Start 11/08/16 at 15:30 Acetaminophen (Tylenol Liquid) 325 mg Q4H PRN GTB MILD PAIN LEVEL 1-3 Last administered on 11/17/16 02:37; Admin Dose 325 MG; Start 11/08/16 at 15:30 Acetaminophen (Tylenol Liquid) 650 mg Q4H PRN GTB MODERATE PAIN LEVEL 4-6 Last administered on 11/21/16 20:54; Admin Dose 650 MG; Start 11/08/16 at 15:30 Ascorbic Acid (Vitamin C) 500 mg DAILY GTB Last administered on 11/26/16 08:53 ; Admin Dose 500 MG; Start 11/09/16 at 09:00 Atorvastatin Calcium (Lipitor) 40 mg QHS GTB Last administered on 11/25/16 20: 45; Admin Dose 40 MG; Start 11/08/16 at 21:00 Carvedilol (Coreg) 3.125 mg BID GTB Last administered on 11/26/16 08:53; Admin Dose 3.125 MG; Start 11/08/16 at 21:00 Duloxetine HCl (Cymbalta) 30 mg DAILY GTB Last administered on 11/26/16 08:53 ; Admin Dose 30 MG; Start 11/09/16 at 09:00 Fluticasone Propionate (Flonase 0.05% Nasal) 1 spray BID NASAL Last administered on 11/26/16 08:53; Admin Dose 1 SPRAY; Start 11/08/16 at 21:00 Lactobacillus Acidoph/Bulgaricus (Floranex) 1 tab DAILY GTB Last administered on 11/26/16 08:53; Admin Dose 1 TAB; Start 11/09/16 at 09:00 Sildenafil Citrate (Revatio) 20 mg BID GTB Last administered on 11/26/16 09:01 ; Admin Dose 20 MG; Start 11/08/16 at 21:00 Vitamin B Complex/ Vitamin C (Berocca) 1 cap DAILY GTB Last administered on 08:53; Admin Dose 1 CAP; Start 11/09/16 at 09:00 Miscellaneous Information 1 ea NOTE XX ; Start 11/08/16 at 16:00 Glucose (Glutose) 15 gm Q15M PRN PO DECREASED GLUCOSE; Start 11/08/16 at 16:00 Glucose (Glutose) 22.5 gm Q15M PRN PO DECREASED GLUCOSE; Start 11/08/16 at 16: 00 Dextrose (D50w Syringe) 25 ml Q15M PRN IV DECREASED GLUCOSE; Start 11/08/16 at 16:00 Dextrose (D50w Syringe) 50 ml Q15M PRN IV DECREASED GLUCOSE; Start 11/08/16 at 16:00 Glucagon (Glucagen) 1 mg Q15M PRN IM DECREASED GLUCOSE; Start 11/08/16 at 16:00 Glucose (Glutose) 15 gm Q15M PRN BUCCAL DECREASED GLUCOSE; Start 11/08/16 at 16 :00 Acetaminophen/ Hydrocodone Bitart ([place] (5/325)) 1 tab Q4H PRN PO SEVERE PAIN 7-10 Last administered on 11/25/16 20:45; Admin Dose 1 TAB; Start 11/08/16 at 21 :00 Morphine Sulfate (morphine) 2 mg Q4H PRN IV PAIN LEVEL 7-10 Last administered on 11/26/16 05:44; Admin Dose 2 MG; Start 11/09/16 at 11:00 Collagenase (Santyl) 1 applic DAILY TOP Last administered on 11/26/16 08:56; Admin Dose 1 APPLIC; Start 11/09/16 at 16:00 Lorazepam (Ativan) 1 mg Q6H PRN IV AGITATION/ANXIETY Last administered on 22:46; Admin Dose 1 MG; Start 11/09/16 at 20:30 Pantoprazole (Protonix Iv) 40 mg BID@,18 IV Last administered on 11/26/16 05 :43; Admin Dose 40 MG; Start 11/10/16 at 06:00 Sodium Phosphate (Neutra-Phos) 250 mg BID GTB Last administered on 11/26/16 08 :53; Admin Dose 250 MG; Start 11/10/16 at 09:00 Calcium/Vitamin D (Oyster Shell/ Vit-D (500/200)) 1 tab DAILY GTB Last administered on 11/26/16 08:53; Admin Dose 1 TAB; Start 11/12/16 at 11:00 Prochlorperazine (Compazine) 5 mg Q6H PRN GTB NAUSEA AND/OR VOMITING Last administered on 11/25/16 06:32; Admin Dose 5 MG; Start 11/17/16 at 17:30 Insulin Glargine (Lantus) 16 unit DAILY SC Last administered on 11/26/16 08:56 ; Admin Dose 16 UNIT; Start 11/24/16 at 09:00 Diagnostic Test (Pha) (Accu-Chek) 1 ea 02 XX Last administered on 11/25/16 02: 06; Admin Dose 1 EA; Start 11/24/16 at 02:00 Insulin Aspart (Novolog Insulin Pen) NOVOLOG *MILD* ALGORITHM Q4 SC Last administered on 11/26/16 08:55; Admin Dose 2 UNIT; Start 11/23/16 at 17:00 Solo Leon DO Nov 26, 2016 10:58
--- NOTE | 2016-11-26 13:24 | CONS ---
Date/Time of Note Date/Time of Note DATE: 11/26/16 TIME: 13:22 Assessment/Plan Assessment/Plan Additional Assessment/Plan Ventilator settings; AC of 14, tidal volume 500, PEEP of 5, 30% FiO2. Assessment recommendations; next 1. Patient admitted for UTI and sepsis with significant clinical improvement off antibiotics now. 2. Chronic renal failure on hemodialysis. 3. History of dementia. 4. Chronic respiratory failure, ventilator dependent. Continue current treatment. Patient awaiting transfer to rehab facility. Consultation Date/Type/Reason Admit Date/Time Nov 08, 2016 at 10:56 Initial Consult Date 11/08/16 Type of Consultation: Pulmonary Referring Provider: GRACIE KATHLEEN 24 HR Interval Summary Free Text/Dictation Patient condition remains unchanged. Has remained hemodynamically stable. Awake and follows occasional commands. Exam; elderly male, on ventilator via tracheostomy currently in no distress. Awake. Exam/Review of Systems Vital Signs Vitals Vital Signs Date Time Temp Pulse Resp B/P Pulse Ox O2 Delivery O2 Flow Rate FiO2 11/26/16 13:15 99 22 96 30 11/26/16 12:45 97.5 103/66 11/26/16 04:00 Mechanical Ventilator Trach Collar Intake and Output 11/25/16 11/25/16 11/26/16 14:59 22:59 06:59 Intake Total 980 ml Balance 980 ml Exam HEENT exam is; supple neck, no JVD. No lymphadenopathy. Midline trachea. Tracheostomy in place. Insertion site is clean. Pupils are small bilaterally. No neck masses. Chest examination; diminished but clear breath sound bilaterally. S1-S2 audible , no murmurs. Regular rhythm. Abdomen examination; soft, G-tube in place. No organomegaly. Nontender. Bowel sounds audible. Extremity exam is; no peripheral edema. Patient is a well-healed left below- knee amputation stump. 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 Results Result Diagram: 11/26/16 0545 11/26/16 0545 Results 24 hrs Laboratory Tests Test 11/25/16 17:10 11/25/16 20:48 11/26/16 05:45 11/26/16 05:50 Bedside Glucose 105 119 157 White Blood Count 10.4 Red Blood Count 3.64 L Hemoglobin 11.3 L Hematocrit 36.7 L Mean Corpuscular Volume 100.8 Mean Corpuscular Hemoglobin 31.0 Mean Corpuscular Hemoglobin Concent 30.8 L Red Cell Distribution Width 19.0 H Platelet Count 266 Mean Platelet Volume 9.6 Neutrophils % 76.7 Lymphocytes % 9.8 L Monocytes % 9.7 Eosinophils % 2.7 Basophils % 0.4 Nucleated Red Blood Cells % 0.0 Neutrophils # 8.0 H Lymphocytes # 1.0 Monocytes # 1.0 H Eosinophils # 0.3 Basophils # 0.0 Nucleated Red Blood Cells # 0.0 Sodium Level 137 Potassium Level 4.3 Chloride Level 100 Carbon Dioxide Level 24 Anion Gap 17 H Blood Urea Nitrogen 57 H Creatinine 3.25 H Glucose Level 173 Calcium Level 7.4 L Test 11/26/16 08:52 11/26/16 13:06 Bedside Glucose 205 156 Medications Medications Current Medications Lidocaine (Lidoderm) 1 patch DAILY TD Last administered on 11/26/16 08:56; Admin Dose 1 PATCH; Start 11/08/16 at 15:30 Acetaminophen (Tylenol Liquid) 325 mg Q4H PRN GTB MILD PAIN LEVEL 1-3 Last administered on 11/17/16 02:37; Admin Dose 325 MG; Start 11/08/16 at 15:30 Acetaminophen (Tylenol Liquid) 650 mg Q4H PRN GTB MODERATE PAIN LEVEL 4-6 Last administered on 11/21/16 20:54; Admin Dose 650 MG; Start 11/08/16 at 15:30 Ascorbic Acid (Vitamin C) 500 mg DAILY GTB Last administered on 11/26/16 08:53 ; Admin Dose 500 MG; Start 11/09/16 at 09:00 Atorvastatin Calcium (Lipitor) 40 mg QHS GTB Last administered on 11/25/16 20: 45; Admin Dose 40 MG; Start 11/08/16 at 21:00 Carvedilol (Coreg) 3.125 mg BID GTB Last administered on 11/26/16 08:53; Admin Dose 3.125 MG; Start 11/08/16 at 21:00 Duloxetine HCl (Cymbalta) 30 mg DAILY GTB Last administered on 11/26/16 08:53 ; Admin Dose 30 MG; Start 11/09/16 at 09:00 Fluticasone Propionate (Flonase 0.05% Nasal) 1 spray BID NASAL Last administered on 11/26/16 08:53; Admin Dose 1 SPRAY; Start 11/08/16 at 21:00 Lactobacillus Acidoph/Bulgaricus (Floranex) 1 tab DAILY GTB Last administered on 11/26/16 08:53; Admin Dose 1 TAB; Start 11/09/16 at 09:00 Sildenafil Citrate (Revatio) 20 mg BID GTB Last administered on 11/26/16 09:01 ; Admin Dose 20 MG; Start 11/08/16 at 21:00 Vitamin B Complex/ Vitamin C (Berocca) 1 cap DAILY GTB Last administered on 08:53; Admin Dose 1 CAP; Start 11/09/16 at 09:00 Miscellaneous Information 1 ea NOTE XX ; Start 11/08/16 at 16:00 Glucose (Glutose) 15 gm Q15M PRN PO DECREASED GLUCOSE; Start 11/08/16 at 16:00 Glucose (Glutose) 22.5 gm Q15M PRN PO DECREASED GLUCOSE; Start 11/08/16 at 16: 00 Dextrose (D50w Syringe) 25 ml Q15M PRN IV DECREASED GLUCOSE; Start 11/08/16 at 16:00 Dextrose (D50w Syringe) 50 ml Q15M PRN IV DECREASED GLUCOSE; Start 11/08/16 at 16:00 Glucagon (Glucagen) 1 mg Q15M PRN IM DECREASED GLUCOSE; Start 11/08/16 at 16:00 Glucose (Glutose) 15 gm Q15M PRN BUCCAL DECREASED GLUCOSE; Start 11/08/16 at 16 :00 Acetaminophen/ Hydrocodone Bitart ([place] (5/325)) 1 tab Q4H PRN PO SEVERE PAIN 7-10 Last administered on 11/25/16 20:45; Admin Dose 1 TAB; Start 11/08/16 at 21 :00 Morphine Sulfate (morphine) 2 mg Q4H PRN IV PAIN LEVEL 7-10 Last administered on 11/26/16 05:44; Admin Dose 2 MG; Start 11/09/16 at 11:00 Collagenase (Santyl) 1 applic DAILY TOP Last administered on 11/26/16 08:56; Admin Dose 1 APPLIC; Start 11/09/16 at 16:00 Lorazepam (Ativan) 1 mg Q6H PRN IV AGITATION/ANXIETY Last administered on 22:46; Admin Dose 1 MG; Start 11/09/16 at 20:30 Pantoprazole (Protonix Iv) 40 mg BID@06,18 IV Last administered on 11/26/16 05 :43; Admin Dose 40 MG; Start 11/10/16 at 06:00 Sodium Phosphate (Neutra-Phos) 250 mg BID GTB Last administered on 11/26/16 08 :53; Admin Dose 250 MG; Start 11/10/16 at 09:00 Calcium/Vitamin D (Oyster Shell/ Vit-D (500/200)) 1 tab DAILY GTB Last administered on 11/26/16 08:53; Admin Dose 1 TAB; Start 11/12/16 at 11:00 Prochlorperazine (Compazine) 5 mg Q6H PRN GTB NAUSEA AND/OR VOMITING Last administered on 11/25/16 06:32; Admin Dose 5 MG; Start 11/17/16 at 17:30 Insulin Glargine (Lantus) 16 unit DAILY SC Last administered on 11/26/16 08:56 ; Admin Dose 16 UNIT; Start 11/24/16 at 09:00 Diagnostic Test (Pha) (Accu-Chek) 1 ea 02 XX Last administered on 11/25/16 02: 06; Admin Dose 1 EA; Start 11/24/16 at 02:00 Insulin Aspart (Novolog Insulin Pen) NOVOLOG *MILD* ALGORITHM Q4 SC Last administered on 11/26/16 13:10; Admin Dose 1 UNIT; Start 11/23/16 at 17:00 ELVI BLANK Nov 26, 2016 13:24
--- NOTE | 2016-11-26 18:57 | PN ---
Date/Time of Note Date/Time of Note DATE: 11/26/16 TIME: 18:56 Assessment/Plan VTE Prophylaxis VTE Prophylaxis Intervention: other Lines/Catheters IV Catheter Type (from Nrs): Peripheral IV Urinary Cath still in place: No Assessment/Plan Assessment/Plan - Esophagitis per EGD. Continue Protonix Dr. Hernandez is following in gastroenterology consultation. - Anemia of chronic disease, on Epogen, continue to monitor hemoglobin and hematocrit, transfuse as needed. - Ascites, SBP ruled out, Status post paracentesis 11/14,ascitic fluid culture negative. - Systemic inflammatory response syndrome with leukocytosis, patient is followed by Dr. Benjamin deluna in infection disease consultation. - End-stage renal disease, hemodialysis dependent. Continue hemodialysis per nephrology. - Chronic respiratory failure with tracheostomy. Dr. Sahu is following in pulmonology consultation. - Coronary artery disease with history of PCI. - Diastolic congestive heart failure - Pulmonary hypertension - Peripheral vascular disease, status post left BKA. - Diabetes mellitus type 2, continue NovoLog per sliding scale. - Sacral decub present on admission. Continue current wound care. D/C planning DW dR Miramontes Subjective 24 Hr Interval Summary Free Text/Dictation NAD, AWAKE AT TIMES, comfortable. dw staff Exam/Review of Systems Vital Signs Vitals Vital Signs Date Time Temp Pulse Resp B/P Pulse Ox O2 Delivery O2 Flow Rate FiO2 11/26/16 17:52 98 15 11/26/16 17:03 97 30 11/26/16 17:01 97.7 101/47 11/26/16 04:00 Mechanical Ventilator Trach Collar Intake and Output 11/25/16 11/25/16 11/26/16 15:00 23:00 07:00 Intake Total 980 ml Balance 980 ml Exam Constitutional: alert Psych: nl mood/affect Eyes: EOMI, PERRL, nl sclera ENMT: nl external ears & nose Neck: non-tender Respiratory: diminished breath sounds Cardiovascular: nl pulses Gastrointestinal: non-tender Musculoskeletal: other Extremities: normal pulses Neurological: confused Results Result Diagram: 11/26/16 0545 11/26/16 0545 Results 24 hrs Laboratory Tests Test 11/25/16 20:48 11/26/16 05:45 11/26/16 05:50 11/26/16 08:52 Bedside Glucose 119 157 205 White Blood Count 10.4 Red Blood Count 3.64 L Hemoglobin 11.3 L Hematocrit 36.7 L Mean Corpuscular Volume 100.8 Mean Corpuscular Hemoglobin 31.0 Mean Corpuscular Hemoglobin Concent 30.8 L Red Cell Distribution Width 19.0 H Platelet Count 266 Mean Platelet Volume 9.6 Neutrophils % 76.7 Lymphocytes % 9.8 L Monocytes % 9.7 Eosinophils % 2.7 Basophils % 0.4 Nucleated Red Blood Cells % 0.0 Neutrophils # 8.0 H Lymphocytes # 1.0 Monocytes # 1.0 H Eosinophils # 0.3 Basophils # 0.0 Nucleated Red Blood Cells # 0.0 Sodium Level 137 Potassium Level 4.3 Chloride Level 100 Carbon Dioxide Level 24 Anion Gap 17 H Blood Urea Nitrogen 57 H Creatinine 3.25 H Glucose Level 173 Calcium Level 7.4 L Test 11/26/16 13:06 11/26/16 17:10 Bedside Glucose 156 127 Medications Medications Current Medications Lidocaine (Lidoderm) 1 patch DAILY TD Last administered on 11/26/16 08:56; Admin Dose 1 PATCH; Start 11/08/16 at 15:30 Acetaminophen (Tylenol Liquid) 325 mg Q4H PRN GTB MILD PAIN LEVEL 1-3 Last administered on 11/17/16 02:37; Admin Dose 325 MG; Start 11/08/16 at 15:30 Acetaminophen (Tylenol Liquid) 650 mg Q4H PRN GTB MODERATE PAIN LEVEL 4-6 Last administered on 11/21/16 20:54; Admin Dose 650 MG; Start 11/08/16 at 15:30 Ascorbic Acid (Vitamin C) 500 mg DAILY GTB Last administered on 11/26/16 08:53 ; Admin Dose 500 MG; Start 11/09/16 at 09:00 Atorvastatin Calcium (Lipitor) 40 mg QHS GTB Last administered on 11/25/16 20: 45; Admin Dose 40 MG; Start 11/08/16 at 21:00 Carvedilol (Coreg) 3.125 mg BID GTB Last administered on 11/26/16 08:53; Admin Dose 3.125 MG; Start 11/08/16 at 21:00 Duloxetine HCl (Cymbalta) 30 mg DAILY GTB Last administered on 11/26/16 08:53 ; Admin Dose 30 MG; Start 11/09/16 at 09:00 Fluticasone Propionate (Flonase 0.05% Nasal) 1 spray BID NASAL Last administered on 11/26/16 08:53; Admin Dose 1 SPRAY; Start 11/08/16 at 21:00 Lactobacillus Acidoph/Bulgaricus (Floranex) 1 tab DAILY GTB Last administered on 11/26/16 08:53; Admin Dose 1 TAB; Start 11/09/16 at 09:00 Sildenafil Citrate (Revatio) 20 mg BID GTB Last administered on 11/26/16 09:01 ; Admin Dose 20 MG; Start 11/08/16 at 21:00 Vitamin B Complex/ Vitamin C (Berocca) 1 cap DAILY GTB Last administered on 08:53; Admin Dose 1 CAP; Start 11/09/16 at 09:00 Miscellaneous Information 1 ea NOTE XX ; Start 11/08/16 at 16:00 Glucose (Glutose) 15 gm Q15M PRN PO DECREASED GLUCOSE; Start 11/08/16 at 16:00 Glucose (Glutose) 22.5 gm Q15M PRN PO DECREASED GLUCOSE; Start 11/08/16 at 16: 00 Dextrose (D50w Syringe) 25 ml Q15M PRN IV DECREASED GLUCOSE; Start 11/08/16 at 16:00 Dextrose (D50w Syringe) 50 ml Q15M PRN IV DECREASED GLUCOSE; Start 11/08/16 at 16:00 Glucagon (Glucagen) 1 mg Q15M PRN IM DECREASED GLUCOSE; Start 11/08/16 at 16:00 Glucose (Glutose) 15 gm Q15M PRN BUCCAL DECREASED GLUCOSE; Start 11/08/16 at 16 :00 Acetaminophen/ Hydrocodone Bitart ([place] (5/325)) 1 tab Q4H PRN PO SEVERE PAIN 7-10 Last administered on 11/25/16 20:45; Admin Dose 1 TAB; Start 11/08/16 at 21 :00 Morphine Sulfate (morphine) 2 mg Q4H PRN IV PAIN LEVEL 7-10 Last administered on 11/26/16 15:08; Admin Dose 2 MG; Start 11/09/16 at 11:00 Collagenase (Santyl) 1 applic DAILY TOP Last administered on 11/26/16 08:56; Admin Dose 1 APPLIC; Start 11/09/16 at 16:00 Lorazepam (Ativan) 1 mg Q6H PRN IV AGITATION/ANXIETY Last administered on 22:46; Admin Dose 1 MG; Start 11/09/16 at 20:30 Pantoprazole (Protonix Iv) 40 mg BID@18 IV Last administered on 11/26/16 18 :29; Admin Dose 40 MG; Start 11/10/16 at 06:00 Sodium Phosphate (Neutra-Phos) 250 mg BID GTB Last administered on 11/26/16 08 :53; Admin Dose 250 MG; Start 11/10/16 at 09:00 Calcium/Vitamin D (Oyster Shell/ Vit-D (500/200)) 1 tab DAILY GTB Last administered on 11/26/16 08:53; Admin Dose 1 TAB; Start 11/12/16 at 11:00 Prochlorperazine (Compazine) 5 mg Q6H PRN GTB NAUSEA AND/OR VOMITING Last administered on 11/25/16 06:32; Admin Dose 5 MG; Start 11/17/16 at 17:30 Insulin Glargine (Lantus) 16 unit DAILY SC Last administered on 11/26/16 08:56 ; Admin Dose 16 UNIT; Start 11/24/16 at 09:00 Diagnostic Test (Pha) (Accu-Chek) 1 ea 02 XX Last administered on 11/25/16 02: 06; Admin Dose 1 EA; Start 11/24/16 at 02:00 Insulin Aspart (Novolog Insulin Pen) NOVOLOG *MILD* ALGORITHM Q4 SC Last administered on 11/26/16 13:10; Admin Dose 1 UNIT; Start 11/23/16 at 17:00 GRACIE KATHLEEN Nov 26, 2016 18:57
--- NOTE | 2016-11-26 20:52 | CONS ---
JERICHO CRABTREE [employer] 11/26/162051: Date/Time of Note Date/Time of Note DATE: 11/26/16 TIME: 20:50 Assessment/Plan Assessment/Plan Chief Complaint/Hosp Course - s/p sepsis - h/o GIB - ascites, s/p paracentesis on 11/14/2016; not consistent with SBP. Took empiric cefepime (11/12/16-11/17/16) and metronidazole (10/14/2016-11/17/16) - near complete collapse of RLL with LLL atelectasis, pulmonary edema - h/o severe C diff colitis in 2016 - ESRD on HD - VDRF with trach - G tube dependence - PVD - s/p L BKA - abdominal pain - Abd X-ray 11/16/16 shows no e/o obstruction - MRSA nasal colonization, completed mupirocin for 10 days - DNR recommendations - monitor off antibiotics - agree with DC planning - Above d/w Dr. Hammer Problems: Consultation Date/Type/Reason Admit Date/Time Nov 08, 2016 at 10:56 Initial Consult Date 11/09/16 Type of Consultation: Infectious Disease Referring Provider: GRACIE KATHLEEN 24 HR Interval Summary Free Text/Dictation Medicated last night for anxiety otherwise clinically unchanged per d/w RN Dionne. C/o same abdominal pain and RLE. Nods no to SOB, n/v/d. Exam/Review of Systems Vital Signs Vitals Vital Signs Date Time Temp Pulse Resp B/P Pulse Ox O2 Delivery O2 Flow Rate FiO2 11/26/16 20:36 98.2 100 17 90/51 90 11/26/16 19:25 30 11/26/16 04:00 Mechanical Ventilator Trach Collar Intake and Output 11/25/16 11/25/16 11/26/16 15:00 23:00 07:00 Intake Total 980 ml Balance 980 ml Exam Constitutional: alert, non-verbal (mouths out words), obese, oriented, well developed Psych: anxiety Head: atraumatic, normocephalic Neck: other (trach midline), supple Respiratory: diminished breath sounds Cardiovascular: nl pulses, regular rate and rhythm Gastrointestinal: other (GT with TF intact), soft, tender (subjective diffuse TTP; no rebound tenderness) Extremities: edema (RLE), other (Left BKA) Skin: nl turgor, other (wounds - see nurses notes for details) Results Result Diagram: 11/26/16 0545 11/26/16 0545 Results 24 hrs Laboratory Tests Test 11/26/16 05:45 11/26/16 05:50 11/26/16 08:52 11/26/16 13:06 White Blood Count 10.4 Red Blood Count 3.64 L Hemoglobin 11.3 L Hematocrit 36.7 L Mean Corpuscular Volume 100.8 Mean Corpuscular Hemoglobin 31.0 Mean Corpuscular Hemoglobin Concent 30.8 L Red Cell Distribution Width 19.0 H Platelet Count 266 Mean Platelet Volume 9.6 Neutrophils % 76.7 Lymphocytes % 9.8 L Monocytes % 9.7 Eosinophils % 2.7 Basophils % 0.4 Nucleated Red Blood Cells % 0.0 Neutrophils # 8.0 H Lymphocytes # 1.0 Monocytes # 1.0 H Eosinophils # 0.3 Basophils # 0.0 Nucleated Red Blood Cells # 0.0 Sodium Level 137 Potassium Level 4.3 Chloride Level 100 Carbon Dioxide Level 24 Anion Gap 17 H Blood Urea Nitrogen 57 H Creatinine 3.25 H Glucose Level 173 Calcium Level 7.4 L Bedside Glucose 157 205 156 Test 11/26/16 17:10 Bedside Glucose 127 Medications Medications Current Medications Lidocaine (Lidoderm) 1 patch DAILY TD Last administered on 11/26/16 08:56; Admin Dose 1 PATCH; Start 11/08/16 at 15:30 Acetaminophen (Tylenol Liquid) 325 mg Q4H PRN GTB MILD PAIN LEVEL 1-3 Last administered on 11/17/16 02:37; Admin Dose 325 MG; Start 11/08/16 at 15:30 Acetaminophen (Tylenol Liquid) 650 mg Q4H PRN GTB MODERATE PAIN LEVEL 4-6 Last administered on 11/21/16 20:54; Admin Dose 650 MG; Start 11/08/16 at 15:30 Ascorbic Acid (Vitamin C) 500 mg DAILY GTB Last administered on 11/26/16 08:53 ; Admin Dose 500 MG; Start 11/09/16 at 09:00 Atorvastatin Calcium (Lipitor) 40 mg QHS GTB Last administered on 11/25/16 20: 45; Admin Dose 40 MG; Start 11/08/16 at 21:00 Carvedilol (Coreg) 3.125 mg BID GTB Last administered on 11/26/16 08:53; Admin Dose 3.125 MG; Start 11/08/16 at 21:00 Duloxetine HCl (Cymbalta) 30 mg DAILY GTB Last administered on 11/26/16 08:53 ; Admin Dose 30 MG; Start 11/09/16 at 09:00 Fluticasone Propionate (Flonase 0.05% Nasal) 1 spray BID NASAL Last administered on 11/26/16 08:53; Admin Dose 1 SPRAY; Start 11/08/16 at 21:00 Lactobacillus Acidoph/Bulgaricus (Floranex) 1 tab DAILY GTB Last administered on 11/26/16 08:53; Admin Dose 1 TAB; Start 11/09/16 at 09:00 Sildenafil Citrate (Revatio) 20 mg BID GTB Last administered on 11/26/16 09:01 ; Admin Dose 20 MG; Start 11/08/16 at 21:00 Vitamin B Complex/ Vitamin C (Berocca) 1 cap DAILY GTB Last administered on 08:53; Admin Dose 1 CAP; Start 11/09/16 at 09:00 Miscellaneous Information 1 ea NOTE XX ; Start 11/08/16 at 16:00 Glucose (Glutose) 15 gm Q15M PRN PO DECREASED GLUCOSE; Start 11/08/16 at 16:00 Glucose (Glutose) 22.5 gm Q15M PRN PO DECREASED GLUCOSE; Start 11/08/16 at 16: 00 Dextrose (D50w Syringe) 25 ml Q15M PRN IV DECREASED GLUCOSE; Start 11/08/16 at 16:00 Dextrose (D50w Syringe) 50 ml Q15M PRN IV DECREASED GLUCOSE; Start 11/08/16 at 16:00 Glucagon (Glucagen) 1 mg Q15M PRN IM DECREASED GLUCOSE; Start 11/08/16 at 16:00 Glucose (Glutose) 15 gm Q15M PRN BUCCAL DECREASED GLUCOSE; Start 11/08/16 at 16 :00 Acetaminophen/ Hydrocodone Bitart ([place] (5/325)) 1 tab Q4H PRN PO SEVERE PAIN 7-10 Last administered on 11/25/16 20:45; Admin Dose 1 TAB; Start 11/08/16 at 21 :00 Morphine Sulfate (morphine) 2 mg Q4H PRN IV PAIN LEVEL 7-10 Last administered on 11/26/16 15:08; Admin Dose 2 MG; Start 11/09/16 at 11:00 Collagenase (Santyl) 1 applic DAILY TOP Last administered on 11/26/16 08:56; Admin Dose 1 APPLIC; Start 11/09/16 at 16:00 Lorazepam (Ativan) 1 mg Q6H PRN IV AGITATION/ANXIETY Last administered on 22:46; Admin Dose 1 MG; Start 11/09/16 at 20:30 Pantoprazole (Protonix Iv) 40 mg BID@06,18 IV Last administered on 11/26/16 18 :29; Admin Dose 40 MG; Start 11/10/16 at 06:00 Sodium Phosphate (Neutra-Phos) 250 mg BID GTB Last administered on 11/26/16 08 :53; Admin Dose 250 MG; Start 11/10/16 at 09:00 Calcium/Vitamin D (Oyster Shell/ Vit-D (500/200)) 1 tab DAILY GTB Last administered on 11/26/16 08:53; Admin Dose 1 TAB; Start 11/12/16 at 11:00 Prochlorperazine (Compazine) 5 mg Q6H PRN GTB NAUSEA AND/OR VOMITING Last administered on 11/25/16 06:32; Admin Dose 5 MG; Start 11/17/16 at 17:30 Insulin Glargine (Lantus) 16 unit DAILY SC Last administered on 11/26/16 08:56 ; Admin Dose 16 UNIT; Start 11/24/16 at 09:00 Diagnostic Test (Pha) (Accu-Chek) 1 ea 02 XX Last administered on 11/25/16 02: 06; Admin Dose 1 EA; Start 11/24/16 at 02:00 Insulin Aspart (Novolog Insulin Pen) NOVOLOG *MILD* ALGORITHM Q4 SC Last administered on 11/26/16 13:10; Admin Dose 1 UNIT; Start 11/23/16 at 17:00 Procedures Procedures CXR 11/23/16: 1. Slightly improved appearance of the lungs. 2. Cardiomegaly. 3. Tracheostomy in satisfactory position. SADIA HAMMER M.D. 12/02/16 4091: Assessment/Plan Assessment/Plan Additional Assessment/Plan Jaquelin attestation: I discussed the management with SARAN Crabtree and agree with above. Exam/Review of Systems Results Result Diagram: 11/26/16 0545 11/26/16 0545 JERICHO CRABTREE NP Nov 26, 2016 20:52 SADIA HAMMER M.D. Dec 02, 2016 23:51
[2016-11-26] MEDS: ATORVASTATIN 40 MG TAB GTB SCH (21:26)
[2016-11-26] MEDS: HYDROCODONE/APAP (5/325) TAB PO PRN (21:26)
[2016-11-26] MEDS: LORAZEPAM 2 MG INJ IV PRN (21:26)
[2016-11-27] VITALS (24 sets, daily range): BP systolic 80–115; BP diastolic 41–63; PULSE 86–110; RESP 15–25
[2016-11-27] MEDS: INSULIN ASPART [NOVOLOG] 3 ML PEN SC SCH ×6 (01:00→21:00)
[2016-11-27] MEDS: ACCU-CHEK XX SCH (01:59)
[2016-11-27] MEDS: morphine 2 MG INJ IV PRN ×2 (04:59→18:06)
[2016-11-27] MEDS: PANTOPRAZOLE 40 MG INJ IV SCH ×2 (06:33→18:06)
--- NOTE | 2016-11-27 07:16 | PN ---
Date/Time of Note Date/Time of Note DATE: 11/27/16 TIME: 07:15 Assessment/Plan VTE Prophylaxis VTE Prophylaxis Intervention: SCD's Lines/Catheters IV Catheter Type (from Nrsg): Peripheral IV Urinary Cath still in place: No Assessment/Plan Assessment/Plan Paroxysmal atrial tachycardia Possible GI bleed Respiratory failure status post tracheostomy Diastolic congestive heart failure End-stage renal disease on hemodialysis CAD with history of PCI Diabetes Peripheral arterial disease with history of amputation Pulmonary hypertension Hypotension, improved -Blood pressure trend improving, holding parameters on coreg and sildenafil. F -fluid management via hemodialysis as per our nephrology colleagues -no new cv reccomendations. Subjective 24 Hr Interval Summary Free Text/Dictation The patient with no change Exam/Review of Systems Vital Signs Vitals Vital Signs Date Time Temp Pulse Resp B/P Pulse Ox O2 Delivery O2 Flow Rate FiO2 11/27/16 05:44 87 15 97 30 11/27/16 04:51 98.6 115/56 Mechanical Ventilator Trach Collar Intake and Output 11/26/16 11/26/16 11/27/16 15:00 23:00 07:00 Intake Total 1180 ml 1187 ml Output Total 2000 ml Balance -820 ml 1187 ml Results Result Diagram: 11/26/16 0545 11/26/16 0545 Results 24 hrs Laboratory Tests Test 11/26/16 08:52 11/26/16 13:06 11/26/16 17:10 11/26/16 21:35 Bedside Glucose 205 156 127 108 Test 11/27/16 02:26 11/27/16 05:00 Bedside Glucose 87 108 Medications Medications Current Medications Lidocaine (Lidoderm) 1 patch DAILY TD Last administered on 11/26/16 08:56; Admin Dose 1 PATCH; Start 11/08/16 at 15:30 Acetaminophen (Tylenol Liquid) 325 mg Q4H PRN GTB MILD PAIN LEVEL 1-3 Last administered on 11/17/16 02:37; Admin Dose 325 MG; Start 11/08/16 at 15:30 Acetaminophen (Tylenol Liquid) 650 mg Q4H PRN GTB MODERATE PAIN LEVEL 4-6 Last administered on 11/21/16 20:54; Admin Dose 650 MG; Start 11/08/16 at 15:30 Ascorbic Acid (Vitamin C) 500 mg DAILY GTB Last administered on 11/26/16 08:53 ; Admin Dose 500 MG; Start 11/09/16 at 09:00 Atorvastatin Calcium (Lipitor) 40 mg QHS GTB Last administered on 11/26/16 21: 26; Admin Dose 40 MG; Start 11/08/16 at 21:00 Carvedilol (Coreg) 3.125 mg BID GTB Last administered on 11/26/16 08:53; Admin Dose 3.125 MG; Start 11/08/16 at 21:00 Duloxetine HCl (Cymbalta) 30 mg DAILY GTB Last administered on 11/26/16 08:53 ; Admin Dose 30 MG; Start 11/09/16 at 09:00 Fluticasone Propionate (Flonase 0.05% Nasal) 1 spray BID NASAL Last administered on 11/26/16 21:37; Admin Dose 1 SPRAY; Start 11/08/16 at 21:00 Lactobacillus Acidoph/Bulgaricus (Floranex) 1 tab DAILY GTB Last administered on 11/26/16 08:53; Admin Dose 1 TAB; Start 11/09/16 at 09:00 Sildenafil Citrate (Revatio) 20 mg BID GTB Last administered on 11/26/16 09:01 ; Admin Dose 20 MG; Start 11/08/16 at 21:00 Vitamin B Complex/ Vitamin C (Berocca) 1 cap DAILY GTB Last administered on 08:53; Admin Dose 1 CAP; Start 11/09/16 at 09:00 Miscellaneous Information 1 ea NOTE XX ; Start 11/08/16 at 16:00 Glucose (Glutose) 15 gm Q15M PRN PO DECREASED GLUCOSE; Start 11/08/16 at 16:00 Glucose (Glutose) 22.5 gm Q15M PRN PO DECREASED GLUCOSE; Start 11/08/16 at 16: 00 Dextrose (D50w Syringe) 25 ml Q15M PRN IV DECREASED GLUCOSE; Start 11/08/16 at 16:00 Dextrose (D50w Syringe) 50 ml Q15M PRN IV DECREASED GLUCOSE; Start 11/08/16 at 16:00 Glucagon (Glucagen) 1 mg Q15M PRN IM DECREASED GLUCOSE; Start 11/08/16 at 16:00 Glucose (Glutose) 15 gm Q15M PRN BUCCAL DECREASED GLUCOSE; Start 11/08/16 at 16 :00 Acetaminophen/ Hydrocodone Bitart ([place] (5/325)) 1 tab Q4H PRN PO SEVERE PAIN 7-10 Last administered on 11/26/16 21:26; Admin Dose 1 TAB; Start 11/08/16 at 21:00 Morphine Sulfate (morphine) 2 mg Q4H PRN IV PAIN LEVEL 7-10 Last administered on 11/27/16 04:59; Admin Dose 2 MG; Start 11/09/16 at 11:00 Collagenase (Santyl) 1 applic DAILY TOP Last administered on 11/26/16 08:56; Admin Dose 1 APPLIC; Start 11/09/16 at 16:00 Lorazepam (Ativan) 1 mg Q6H PRN IV AGITATION/ANXIETY Last administered on 21:26; Admin Dose 1 MG; Start 11/09/16 at 20:30 Pantoprazole (Protonix Iv) 40 mg BID@06,18 IV Last administered on 11/27/16 06 :33; Admin Dose 40 MG; Start 11/10/16 at 06:00 Sodium Phosphate (Neutra-Phos) 250 mg BID GTB Last administered on 11/26/16 21 :26; Admin Dose 250 MG; Start 11/10/16 at 09:00 Calcium/Vitamin D (Oyster Shell/ Vit-D (500/200)) 1 tab DAILY GTB Last administered on 11/26/16 08:53; Admin Dose 1 TAB; Start 11/12/16 at 11:00 Prochlorperazine (Compazine) 5 mg Q6H PRN GTB NAUSEA AND/OR VOMITING Last administered on 11/25/16 06:32; Admin Dose 5 MG; Start 11/17/16 at 17:30 Insulin Glargine (Lantus) 16 unit DAILY SC Last administered on 11/26/16 08:56 ; Admin Dose 16 UNIT; Start 11/24/16 at 09:00 Diagnostic Test (Pha) (Accu-Chek) 1 ea 02 XX Last administered on 11/25/16 02: 06; Admin Dose 1 EA; Start 11/24/16 at 02:00 Insulin Aspart (Novolog Insulin Pen) NOVOLOG *MILD* ALGORITHM Q4 SC Last administered on 11/26/16 13:10; Admin Dose 1 UNIT; Start 11/23/16 at 17:00 MARIANA [place] MD Nov 27, 2016 07:16
[2016-11-27 08:39] LABS: ADD SCAN DIFF NO
[2016-11-27] MEDS: ASCORBIC ACID 500 MG TAB GTB SCH (08:41)
[2016-11-27] MEDS: DULOXETINE 30 MG CAP DR GTB SCH (08:41)
[2016-11-27] MEDS: CALCIUM/VITAMIN D (500/200) TAB GTB SCH (08:42)
[2016-11-27] MEDS: NEUTRA-PHOS 250 MG PACKET GTB SCH ×2 (08:42→21:13)
[2016-11-27] MEDS: SILDENAFIL 20 MG TAB GTB SCH ×2 (08:42→21:00)
[2016-11-27] MEDS: VITAMIN B COMPLEX/VIT C CAP GTB SCH (08:42)
[2016-11-27 08:43] LABS: BASOPHILS % 0.5 % (0.0-2.0); EOSINOPHILS # 0.2 10^3/ul (0.0-0.5); HEMATOCRIT 30.4 % (42.0-52.0); HEMOGLOBIN 9.7 g/dl (14.0-18.0); LYMPHOCYTES # 0.7 10^3/ul (0.8-2.9); LYMPHOCYTES % 8.1 % (15.0-51.0); MEAN CORPUSCULAR HEMOGLOBIN 31.7 pg (29.0-33.0); MEAN CORPUSCULAR HGB CONC 31.9 g/dl (32.0-37.0); MEAN CORPUSCULAR VOLUME 99.3 fl (82.0-101.0); MEAN PLATELET VOLUME 9.2 fl (7.4-10.4); MONOCYTES % 12.2 % (0.0-11.0); NEUTROPHIL # 6.5 10^3/ul (1.6-7.5); NEUTROPHILS % 76.8 % (39.0-77.0); PLATELET COUNT 219 10^3/UL (140-415); RED BLOOD COUNT 3.06 10^6/ul (4.70-6.10); RED CELL DISTRIBUTION WIDTH 18.9 % (11.5-14.5); WHITE BLOOD COUNT 8.4 10^3/ul (4.8-10.8)
[2016-11-27] MEDS: FLUTICASONE 0.05% 16 GM NAS SPRAY NASAL SCH ×2 (08:43→21:13)
[2016-11-27] MEDS: INSULIN GLARGINE [LANtus] 3 ML PEN SC SCH (08:49)
[2016-11-27] MEDS: LACTOBACILLUS CHEW TAB GTB SCH (08:53)
[2016-11-27] MEDS: COLLAGENASE 30 GM TUBE TOP SCH (08:56)
[2016-11-27] MEDS: LIDOCAINE 5% PATCH TD SCH (08:56)
[2016-11-27 08:58] LABS: CALCIUM 7.2 mg/dl (8.4-10.2); CREATININE 2.83 mg/dl (0.61-1.24); MAGNESIUM 1.7 mg/dl (1.7-2.5); PHOSPHORUS 3.7 mg/dl (2.5-4.9); POTASSIUM 4.3 mmol/L (3.5-5.1)
--- NOTE | 2016-11-27 09:15 | PN ---
DATE: 11/27/2016 SUBJECTIVE: The patient had hemodialysis yesterday with 1.5 liters removed. No other events noted. OBJECTIVE: VITAL SIGNS: Blood pressure is /57, respirations 18, pulse 76, temperature 97.9. HEENT: Head is normocephalic. NECK: Supple. HEART: Regular rate. LUNGS: Show diminished breath sounds at base. ABDOMEN: Soft, nontender to palpation, without rebound or guarding. EXTREMITIES: Negative for clubbing, cyanosis, or edema on the right leg. Left BKA is noted. DERMATOLOGIC: No rashes. MUSCULOSKELETAL: No joint effusions. NEUROLOGIC: No change in exam. MEDICATIONS: Have been reviewed. LABORATORY DATA: Has been reviewed. No new labs. ASSESSMENT AND PLAN: 1. End-stage renal disease. The patient had hemodialysis yesterday, tolerated well. Plan for dial ysis tomorrow. 2. Anemia of chronic disease. Continue to monitor hemoglobin and hematocrit levels. Continue Epog en. 3. Mineral bone disorder. Continue to monitor calcium and phosphorus levels. 4. Volume overload, improved. Continue ultrafiltration with dialysis. 5. Sepsis secondary to pneumonia. Patient is completing antibiotic course. 5. Ventilator-dependent respiratory failure. Vent settings reviewed. Continue to monitor. Follow up with pulmonary. 6. Dysphagia, status post percutaneous endoscopic gastrostomy. Continue tube feeding. 7. Coronary artery disease. Continue medical management. 8. Diabetes. Continue Accu-Cheks and sliding scale. 9. History of hypertension. The patient is normotensive to hypotensive. Continue to monitor. 11. Congestive heart failure. Continue medical management. 12. Status post gastrointestinal bleed. Dictated By: SARAHI RINALDI/OLESYA Conf#: [id number] DID#: [id number]
--- NOTE | 2016-11-27 10:43 | CONS ---
Date/Time of Note Date/Time of Note DATE: 11/27/16 TIME: 10:41 Assessment/Plan Assessment/Plan Additional Assessment/Plan Ventilator settings; AC of 14, tidal volume 500, PEEP of 5, 30% FiO2. Assessment and recommendations; next 1. Patient admitted for UTI and sepsis with significant clinical improvement. 2. Chronic respiratory failure. 3. History of CVA. 4. History of left below-knee in position. 5. Chronic renal failure. On hemodialysis. Continue current treatment. Patient can be discharged to the custodial. Consultation Date/Type/Reason Admit Date/Time Nov 08, 2016 at 10:56 Initial Consult Date 11/08/16 Type of Consultation: Pulmonary Referring Provider: GRACIE KATHLEEN 24 HR Interval Summary Free Text/Dictation Patient condition remains stable. Remains awake and alert. Minimal commands. Has remained hemodynamically stable. General exam; elderly male, on ventilator via tracheostomy currently in no distress. Exam/Review of Systems Vital Signs Vitals Vital Signs Date Time Temp Pulse Resp B/P Pulse Ox O2 Delivery O2 Flow Rate FiO2 11/27/16 09:27 80 20 94 30 11/27/16 08:45 102/57 11/27/16 08:25 97.9 11/27/16 04:51 Mechanical Ventilator Trach Collar Intake and Output 11/26/16 11/26/16 11/27/16 15:00 23:00 07:00 Intake Total 1180 ml 1187 ml Output Total 2000 ml Balance -820 ml 1187 ml Exam H EENT exam is; supple neck, no JVD. No lymphadenopathy. Midline trachea. No thyromegaly. Tracheostomy in place with clean insertion site. Pupils are midsize and reactive to light. No neck masses. Chest examination; clear to auscultation bilaterally. S1-S2 audible, no murmurs. Regular rhythm. Abdomen examination; nondistended, G-tube in place. No organomegaly. Bowel sounds audible. Extremity examination; no peripheral edema. There is a well-healed left below- knee amputation stump. [employer] HEL[employer] examination; patient is awake, follows minimal commands. Results Result Diagram: 11/27/16 0600 11/27/16 0800 Results 24 hrs Laboratory Tests Test 11/26/16 13:06 11/26/16 17:10 11/26/16 21:35 11/27/16 02:26 Bedside Glucose 156 127 108 87 Test 11/27/16 05:00 11/27/16 06:00 11/27/16 08:00 11/27/16 08:45 Bedside Glucose 108 155 White Blood Count 8.4 Red Blood Count 3.06 L Hemoglobin 9.7 L Hematocrit 30.4 L Mean Corpuscular Volume 99.3 Mean Corpuscular Hemoglobin 31.7 Mean Corpuscular Hemoglobin Concent 31.9 L Red Cell Distribution Width 18.9 H Platelet Count 219 Mean Platelet Volume 9.2 Neutrophils % 76.8 Lymphocytes % 8.1 L Monocytes % 12.2 H Eosinophils % 2.0 Basophils % 0.5 Nucleated Red Blood Cells % 0.0 Neutrophils # 6.5 Lymphocytes # 0.7 L Monocytes # 1.0 H Eosinophils # 0.2 Basophils # 0.0 Nucleated Red Blood Cells # 0.0 Sodium Level 135 Potassium Level 4.3 Chloride Level 101 Carbon Dioxide Level 26 Anion Gap 12 Blood Urea Nitrogen 46 #H Creatinine 2.83 H Glucose Level 150 Calcium Level 7.2 L Phosphorus Level 3.7 Magnesium Level 1.7 Medications Medications Current Medications Lidocaine (Lidoderm) 1 patch DAILY TD Last administered on 11/27/16 08:56; Admin Dose 1 PATCH; Start 11/08/16 at 15:30 Acetaminophen (Tylenol Liquid) 325 mg Q4H PRN GTB MILD PAIN LEVEL 1-3 Last administered on 11/17/16 02:37; Admin Dose 325 MG; Start 11/08/16 at 15:30 Acetaminophen (Tylenol Liquid) 650 mg Q4H PRN GTB MODERATE PAIN LEVEL 4-6 Last administered on 11/21/16 20:54; Admin Dose 650 MG; Start 11/08/16 at 15:30 Ascorbic Acid (Vitamin C) 500 mg DAILY GTB Last administered on 11/27/16 08:41 ; Admin Dose 500 MG; Start 11/09/16 at 09:00 Atorvastatin Calcium (Lipitor) 40 mg QHS GTB Last administered on 11/26/16 21: 26; Admin Dose 40 MG; Start 11/08/16 at 21:00 Carvedilol (Coreg) 3.125 mg BID GTB Last administered on 11/26/16 08:53; Admin Dose 3.125 MG; Start 11/08/16 at 21:00 Duloxetine HCl (Cymbalta) 30 mg DAILY GTB Last administered on 11/27/16 08:41 ; Admin Dose 30 MG; Start 11/09/16 at 09:00 Fluticasone Propionate (Flonase 0.05% Nasal) 1 spray BID NASAL Last administered on 11/27/16 08:43; Admin Dose 1 SPRAY; Start 11/08/16 at 21:00 Lactobacillus Acidoph/Bulgaricus (Floranex) 1 tab DAILY GTB Last administered on 11/26/16 08:53; Admin Dose 1 TAB; Start 11/09/16 at 09:00 Sildenafil Citrate (Revatio) 20 mg BID GTB Last administered on 11/27/16 08:42 ; Admin Dose 20 MG; Start 11/08/16 at 21:00 Vitamin B Complex/ Vitamin C (Berocca) 1 cap DAILY GTB Last administered on 08:42; Admin Dose 1 CAP; Start 11/09/16 at 09:00 Miscellaneous Information 1 ea NOTE XX ; Start 11/08/16 at 16:00 Glucose (Glutose) 15 gm Q15M PRN PO DECREASED GLUCOSE; Start 11/08/16 at 16:00 Glucose (Glutose) 22.5 gm Q15M PRN PO DECREASED GLUCOSE; Start 11/08/16 at 16: 00 Dextrose (D50w Syringe) 25 ml Q15M PRN IV DECREASED GLUCOSE; Start 11/08/16 at 16:00 Dextrose (D50w Syringe) 50 ml Q15M PRN IV DECREASED GLUCOSE; Start 11/08/16 at 16:00 Glucagon (Glucagen) 1 mg Q15M PRN IM DECREASED GLUCOSE; Start 11/08/16 at 16:00 Glucose (Glutose) 15 gm Q15M PRN BUCCAL DECREASED GLUCOSE; Start 11/08/16 at 16 :00 Acetaminophen/ Hydrocodone Bitart ([place] (5/325)) 1 tab Q4H PRN PO SEVERE PAIN 7-10 Last administered on 11/26/16 21:26; Admin Dose 1 TAB; Start 11/08/16 at 21:00 Morphine Sulfate (morphine) 2 mg Q4H PRN IV PAIN LEVEL 7-10 Last administered on 11/27/16 04:59; Admin Dose 2 MG; Start 11/09/16 at 11:00 Collagenase (Santyl) 1 applic DAILY TOP Last administered on 11/27/16 08:56; Admin Dose 1 APPLIC; Start 11/09/16 at 16:00 Lorazepam (Ativan) 1 mg Q6H PRN IV AGITATION/ANXIETY Last administered on 21:26; Admin Dose 1 MG; Start 11/09/16 at 20:30 Pantoprazole (Protonix Iv) 40 mg BID@06,18 IV Last administered on 11/27/16 06 :33; Admin Dose 40 MG; Start 11/10/16 at 06:00 Sodium Phosphate (Neutra-Phos) 250 mg BID GTB Last administered on 11/27/16 08 :42; Admin Dose 250 MG; Start 11/10/16 at 09:00 Calcium/Vitamin D (Oyster Shell/ Vit-D (500/200)) 1 tab DAILY GTB Last administered on 11/27/16 08:42; Admin Dose 1 TAB; Start 11/12/16 at 11:00 Prochlorperazine (Compazine) 5 mg Q6H PRN GTB NAUSEA AND/OR VOMITING Last administered on 11/25/16 06:32; Admin Dose 5 MG; Start 11/17/16 at 17:30 Insulin Glargine (Lantus) 16 unit DAILY SC Last administered on 11/27/16 08:49 ; Admin Dose 16 UNIT; Start 11/24/16 at 09:00 Diagnostic Test (Pha) (Accu-Chek) 1 ea 02 XX Last administered on 11/25/16 02: 06; Admin Dose 1 EA; Start 11/24/16 at 02:00 Insulin Aspart (Novolog Insulin Pen) NOVOLOG *MILD* ALGORITHM Q4 SC Last administered on 11/27/16 08:48; Admin Dose 1 UNIT; Start 11/23/16 at 17:00 ELVI BLANK Nov 27, 2016 10:43
[2016-11-27] MEDS: LORAZEPAM 2 MG INJ IV PRN (14:23)
--- NOTE | 2016-11-27 19:07 | CONS ---
Date/Time of Note Date/Time of Note DATE: 11/27/16 TIME: 18:59 Assessment/Plan Assessment/Plan Chief Complaint/Hosp Course - s/p sepsis - h/o GIB - ascites, s/p paracentesis on 11/14/2016; not consistent with SBP. Took empiric cefepime (11/12/16-11/17/16) and metronidazole (10/14/2016-11/17/16) - near complete collapse of RLL with LLL atelectasis, pulmonary edema - h/o severe C diff colitis in 2016 - ESRD on HD - VDRF with trach - G tube dependence - PVD - s/p L BKA - abdominal pain - Abd X-ray 11/16/16 shows no e/o obstruction - RLE pain - venous doppler 11/19/16 negative for DVT and right knee x-ray 11/21/16 negative for fracture - MRSA nasal colonization, completed mupirocin for 10 days - DNR recommendations - monitor off antibiotics - agree with DC planning - Above d/w Dr. Alexander Problems: Consultation Date/Type/Reason Admit Date/Time Nov 08, 2016 at 10:56 Initial Consult Date 11/09/16 Type of Consultation: Infectious Disease Referring Provider: GRACIE KATHLEEN 24 HR Interval Summary Free Text/Dictation C/o same diffuse abdominal pain and RLE pain. Motions that IV pain medication is the only pain medication that is effective. Nods no to SOB, n/v/d, dysuria. Clinically unchanged and waiting for placement per d/w JUAN MIGUEL Lucio. Exam/Review of Systems Vital Signs Vitals Vital Signs Date Time Temp Pulse Resp B/P Pulse Ox O2 Delivery O2 Flow Rate FiO2 11/27/16 17:22 103 25 99 30 11/27/16 16:02 98.6 108/63 11/27/16 04:51 Mechanical Ventilator Trach Collar Intake and Output 11/26/16 11/26/16 11/27/16 15:00 23:00 07:00 Intake Total 1180 ml 1187 ml Output Total 2000 ml Balance -820 ml 1187 ml Exam Constitutional: alert, non-verbal (mouths out words), obese, oriented, well developed Psych: anxiety Head: atraumatic, normocephalic Neck: other (trach midline), supple Respiratory: diminished breath sounds, respirations (unlabored) Cardiovascular: nl pulses, regular rate and rhythm Gastrointestinal: other (GT with TF intact), soft, tender (subjective diffuse TTP; no rebound tenderness) Extremities: edema (RLE with TTP), other (Left BKA) Skin: nl turgor, other (wounds - see nurses notes for details) Results Result Diagram: 11/27/16 0600 11/27/16 0800 Results 24 hrs Laboratory Tests Test 11/26/16 21:35 11/27/16 02:26 11/27/16 05:00 11/27/16 06:00 Bedside Glucose 108 87 108 White Blood Count 8.4 Red Blood Count 3.06 L Hemoglobin 9.7 L Hematocrit 30.4 L Mean Corpuscular Volume 99.3 Mean Corpuscular Hemoglobin 31.7 Mean Corpuscular Hemoglobin Concent 31.9 L Red Cell Distribution Width 18.9 H Platelet Count 219 Mean Platelet Volume 9.2 Neutrophils % 76.8 Lymphocytes % 8.1 L Monocytes % 12.2 H Eosinophils % 2.0 Basophils % 0.5 Nucleated Red Blood Cells % 0.0 Neutrophils # 6.5 Lymphocytes # 0.7 L Monocytes # 1.0 H Eosinophils # 0.2 Basophils # 0.0 Nucleated Red Blood Cells # 0.0 Test 11/27/16 08:00 11/27/16 08:45 11/27/16 12:27 11/27/16 18:05 Sodium Level 135 Potassium Level 4.3 Chloride Level 101 Carbon Dioxide Level 26 Anion Gap 12 Blood Urea Nitrogen 46 #H Creatinine 2.83 H Glucose Level 150 Calcium Level 7.2 L Phosphorus Level 3.7 Magnesium Level 1.7 Bedside Glucose 155 179 114 Medications Medications Current Medications Lidocaine (Lidoderm) 1 patch DAILY TD Last administered on 11/27/16 08:56; Admin Dose 1 PATCH; Start 11/08/16 at 15:30 Acetaminophen (Tylenol Liquid) 325 mg Q4H PRN GTB MILD PAIN LEVEL 1-3 Last administered on 11/17/16 02:37; Admin Dose 325 MG; Start 11/08/16 at 15:30 Acetaminophen (Tylenol Liquid) 650 mg Q4H PRN GTB MODERATE PAIN LEVEL 4-6 Last administered on 11/21/16 20:54; Admin Dose 650 MG; Start 11/08/16 at 15:30 Ascorbic Acid (Vitamin C) 500 mg DAILY GTB Last administered on 11/27/16 08:41 ; Admin Dose 500 MG; Start 11/09/16 at 09:00 Atorvastatin Calcium (Lipitor) 40 mg QHS GTB Last administered on 11/26/16 21: 26; Admin Dose 40 MG; Start 11/08/16 at 21:00 Carvedilol (Coreg) 3.125 mg BID GTB Last administered on 11/26/16 08:53; Admin Dose 3.125 MG; Start 11/08/16 at 21:00 Duloxetine HCl (Cymbalta) 30 mg DAILY GTB Last administered on 11/27/16 08:41 ; Admin Dose 30 MG; Start 11/09/16 at 09:00 Fluticasone Propionate (Flonase 0.05% Nasal) 1 spray BID NASAL Last administered on 11/27/16 08:43; Admin Dose 1 SPRAY; Start 11/08/16 at 21:00 Lactobacillus Acidoph/Bulgaricus (Floranex) 1 tab DAILY GTB Last administered on 11/26/16 08:53; Admin Dose 1 TAB; Start 11/09/16 at 09:00 Sildenafil Citrate (Revatio) 20 mg BID GTB Last administered on 11/27/16 08:42 ; Admin Dose 20 MG; Start 11/08/16 at 21:00 Vitamin B Complex/ Vitamin C (Berocca) 1 cap DAILY GTB Last administered on 08:42; Admin Dose 1 CAP; Start 11/09/16 at 09:00 Miscellaneous Information 1 ea NOTE XX ; Start 11/08/16 at 16:00 Glucose (Glutose) 15 gm Q15M PRN PO DECREASED GLUCOSE; Start 11/08/16 at 16:00 Glucose (Glutose) 22.5 gm Q15M PRN PO DECREASED GLUCOSE; Start 11/08/16 at 16: 00 Dextrose (D50w Syringe) 25 ml Q15M PRN IV DECREASED GLUCOSE; Start 11/08/16 at 16:00 Dextrose (D50w Syringe) 50 ml Q15M PRN IV DECREASED GLUCOSE; Start 11/08/16 at 16:00 Glucagon (Glucagen) 1 mg Q15M PRN IM DECREASED GLUCOSE; Start 11/08/16 at 16:00 Glucose (Glutose) 15 gm Q15M PRN BUCCAL DECREASED GLUCOSE; Start 11/08/16 at 16 :00 Acetaminophen/ Hydrocodone Bitart ([place] (5/325)) 1 tab Q4H PRN PO SEVERE PAIN 7-10 Last administered on 11/26/16 21:26; Admin Dose 1 TAB; Start 11/08/16 at 21:00 Morphine Sulfate (morphine) 2 mg Q4H PRN IV PAIN LEVEL 7-10 Last administered on 11/27/16 18:06; Admin Dose 2 MG; Start 11/09/16 at 11:00 Collagenase (Santyl) 1 applic DAILY TOP Last administered on 11/27/16 08:56; Admin Dose 1 APPLIC; Start 11/09/16 at 16:00 Lorazepam (Ativan) 1 mg Q6H PRN IV AGITATION/ANXIETY Last administered on 14:23; Admin Dose 1 MG; Start 11/09/16 at 20:30 Pantoprazole (Protonix Iv) 40 mg BID@,18 IV Last administered on 11/27/16 18 :06; Admin Dose 40 MG; Start 11/10/16 at 06:00 Sodium Phosphate (Neutra-Phos) 250 mg BID GTB Last administered on 11/27/16 08 :42; Admin Dose 250 MG; Start 11/10/16 at 09:00 Calcium/Vitamin D (Oyster Shell/ Vit-D (500/200)) 1 tab DAILY GTB Last administered on 11/27/16 08:42; Admin Dose 1 TAB; Start 11/12/16 at 11:00 Prochlorperazine (Compazine) 5 mg Q6H PRN GTB NAUSEA AND/OR VOMITING Last administered on 11/25/16 06:32; Admin Dose 5 MG; Start 11/17/16 at 17:30 Insulin Glargine (Lantus) 16 unit DAILY SC Last administered on 11/27/16 08:49 ; Admin Dose 16 UNIT; Start 11/24/16 at 09:00 Diagnostic Test (Pha) (Accu-Chek) 1 ea 02 XX Last administered on 11/25/16 02: 06; Admin Dose 1 EA; Start 11/24/16 at 02:00 Insulin Aspart (Novolog Insulin Pen) NOVOLOG *MILD* ALGORITHM Q4 SC Last administered on 4/11/17at 12:51; Admin Dose 1 UNIT; Start 11/23/16 at 17:00 Procedures Procedures CXR 11/23/16: 1. Slightly improved appearance of the lungs. 2. Cardiomegaly. 3. Tracheostomy in satisfactory position. RLE Venous study 11/19/16: No evidence of a deep vein thrombosis involving the right lower extremity. JERICHO CRABTREE NP Nov 27, 2016 19:07
[2016-11-27] MEDS: HYDROCODONE/APAP (5/325) TAB PO PRN (19:52)
--- NOTE | 2016-11-27 19:53 | PN ---
Date/Time of Note Date/Time of Note DATE: 11/27/16 TIME: 19:52 Assessment/Plan VTE Prophylaxis VTE Prophylaxis Intervention: other Lines/Catheters IV [facility] Sal[facility] Lock Urinary Cath still in place: No Assessment/Plan Assessment/Plan - Esophagitis per EGD. Continue Protonix Dr. Hernandez is following in gastroenterology consultation. - Anemia of chronic disease, on Epogen, continue to monitor hemoglobin and hematocrit, transfuse as needed. - Ascites, SBP ruled out, Status post paracentesis 11/14,ascitic fluid culture negative. - Systemic inflammatory response syndrome with leukocytosis, patient is followed by Dr. Benjamin deluna in infection disease consultation. - End-stage renal disease, hemodialysis dependent. Continue hemodialysis per nephrology. - Chronic respiratory failure with tracheostomy. Dr. Sahu is following in pulmonology consultation. - Coronary artery disease with history of PCI. - Diastolic congestive heart failure - Pulmonary hypertension - Peripheral vascular disease, status post left BKA. - Diabetes mellitus type 2, continue NovoLog per sliding scale. - Sacral decub present on admission. Continue current wound care. D/C planning DW dR Miramontes Subjective 24 Hr Interval Summary Free Text/Dictation nad, awake, alert, dw staff- tolerating feeding. Eyes: no complaints Exam/Review of Systems Vital Signs Vitals Vital Signs Date Time Temp Pulse Resp B/P Pulse Ox O2 Delivery O2 Flow Rate FiO2 11/27/16 17:22 103 25 99 30 11/27/16 16:02 98.6 108/63 11/27/16 04:51 Mechanical Ventilator Trach Collar Intake and Output 11/26/16 11/26/16 11/27/16 15:00 23:00 07:00 Intake Total 1180 ml 1187 ml Output Total 2000 ml Balance -820 ml 1187 ml Exam Constitutional: alert Psych: nl mood/affect Head: atraumatic ENMT: nl external ears & nose Respiratory: diminished breath sounds Cardiovascular: nl pulses Gastrointestinal: non-tender, soft Musculoskeletal: other Extremities: normal pulses Neurological: nl mental status, nl speech Lymph: nontender Results Result Diagram: 11/27/16 0600 11/27/16 0800 Results 24 hrs Laboratory Tests Test 11/26/16 21:35 11/27/16 02:26 11/27/16 05:00 11/27/16 06:00 Bedside Glucose 108 87 108 White Blood Count 8.4 Red Blood Count 3.06 L Hemoglobin 9.7 L Hematocrit 30.4 L Mean Corpuscular Volume 99.3 Mean Corpuscular Hemoglobin 31.7 Mean Corpuscular Hemoglobin Concent 31.9 L Red Cell Distribution Width 18.9 H Platelet Count 219 Mean Platelet Volume 9.2 Neutrophils % 76.8 Lymphocytes % 8.1 L Monocytes % 12.2 H Eosinophils % 2.0 Basophils % 0.5 Nucleated Red Blood Cells % 0.0 Neutrophils # 6.5 Lymphocytes # 0.7 L Monocytes # 1.0 H Eosinophils # 0.2 Basophils # 0.0 Nucleated Red Blood Cells # 0.0 Test 11/27/16 08:00 11/27/16 08:45 11/27/16 12:27 11/27/16 18:05 Sodium Level 135 Potassium Level 4.3 Chloride Level 101 Carbon Dioxide Level 26 Anion Gap 12 Blood Urea Nitrogen 46 #H Creatinine 2.83 H Glucose Level 150 Calcium Level 7.2 L Phosphorus Level 3.7 Magnesium Level 1.7 Bedside Glucose 155 179 114 Medications Medications Current Medications Lidocaine (Lidoderm) 1 patch DAILY TD Last administered on 11/27/16 08:56; Admin Dose 1 PATCH; Start 11/08/16 at 15:30 Acetaminophen (Tylenol Liquid) 325 mg Q4H PRN GTB MILD PAIN LEVEL 1-3 Last administered on 11/17/16 02:37; Admin Dose 325 MG; Start 11/08/16 at 15:30 Acetaminophen (Tylenol Liquid) 650 mg Q4H PRN GTB MODERATE PAIN LEVEL 4-6 Last administered on 11/21/16 20:54; Admin Dose 650 MG; Start 11/08/16 at 15:30 Ascorbic Acid (Vitamin C) 500 mg DAILY GTB Last administered on 11/27/16 08:41 ; Admin Dose 500 MG; Start 11/09/16 at 09:00 Atorvastatin Calcium (Lipitor) 40 mg QHS GTB Last administered on 11/26/16 21: 26; Admin Dose 40 MG; Start 11/08/16 at 21:00 Carvedilol (Coreg) 3.125 mg BID GTB Last administered on 11/26/16 08:53; Admin Dose 3.125 MG; Start 11/08/16 at 21:00 Duloxetine HCl (Cymbalta) 30 mg DAILY GTB Last administered on 11/27/16 08:41 ; Admin Dose 30 MG; Start 11/09/16 at 09:00 Fluticasone Propionate (Flonase 0.05% Nasal) 1 spray BID NASAL Last administered on 11/27/16 08:43; Admin Dose 1 SPRAY; Start 11/08/16 at 21:00 Lactobacillus Acidoph/Bulgaricus (Floranex) 1 tab DAILY GTB Last administered on 11/26/16 08:53; Admin Dose 1 TAB; Start 11/09/16 at 09:00 Sildenafil Citrate (Revatio) 20 mg BID GTB Last administered on 11/27/16 08:42 ; Admin Dose 20 MG; Start 11/08/16 at 21:00 Vitamin B Complex/ Vitamin C (Berocca) 1 cap DAILY GTB Last administered on 08:42; Admin Dose 1 CAP; Start 11/09/16 at 09:00 Miscellaneous Information 1 ea NOTE XX ; Start 11/08/16 at 16:00 Glucose (Glutose) 15 gm Q15M PRN PO DECREASED GLUCOSE; Start 11/08/16 at 16:00 Glucose (Glutose) 22.5 gm Q15M PRN PO DECREASED GLUCOSE; Start 11/08/16 at 16: 00 Dextrose (D50w Syringe) 25 ml Q15M PRN IV DECREASED GLUCOSE; Start 11/08/16 at 16:00 Dextrose (D50w Syringe) 50 ml Q15M PRN IV DECREASED GLUCOSE; Start 11/08/16 at 16:00 Glucagon (Glucagen) 1 mg Q15M PRN IM DECREASED GLUCOSE; Start 11/08/16 at 16:00 Glucose (Glutose) 15 gm Q15M PRN BUCCAL DECREASED GLUCOSE; Start 11/08/16 at 16 :00 Acetaminophen/ Hydrocodone Bitart ([place] (5/325)) 1 tab Q4H PRN PO SEVERE PAIN 7-10 Last administered on 11/26/16 21:26; Admin Dose 1 TAB; Start 11/08/16 at 21:00 Morphine Sulfate (morphine) 2 mg Q4H PRN IV PAIN LEVEL 7-10 Last administered on 11/27/16 18:06; Admin Dose 2 MG; Start 11/09/16 at 11:00 Collagenase (Santyl) 1 applic DAILY TOP Last administered on 11/27/16 08:56; Admin Dose 1 APPLIC; Start 11/09/16 at 16:00 Lorazepam (Ativan) 1 mg Q6H PRN IV AGITATION/ANXIETY Last administered on 14:23; Admin Dose 1 MG; Start 11/09/16 at 20:30 Pantoprazole (Protonix Iv) 40 mg BID@,18 IV Last administered on 11/27/16 18 :06; Admin Dose 40 MG; Start 11/10/16 at 06:00 Sodium Phosphate (Neutra-Phos) 250 mg BID GTB Last administered on 11/27/16 08 :42; Admin Dose 250 MG; Start 11/10/16 at 09:00 Calcium/Vitamin D (Oyster Shell/ Vit-D (500/200)) 1 tab DAILY GTB Last administered on 11/27/16 08:42; Admin Dose 1 TAB; Start 11/12/16 at 11:00 Prochlorperazine (Compazine) 5 mg Q6H PRN GTB NAUSEA AND/OR VOMITING Last administered on 11/25/16 06:32; Admin Dose 5 MG; Start 11/17/16 at 17:30 Insulin Glargine (Lantus) 16 unit DAILY SC Last administered on 11/27/16 08:49 ; Admin Dose 16 UNIT; Start 11/24/16 at 09:00 Diagnostic Test (Pha) (Accu-Chek) 1 ea 02 XX Last administered on 11/25/16 02: 06; Admin Dose 1 EA; Start 11/24/16 at 02:00 Insulin Aspart (Novolog Insulin Pen) NOVOLOG *MILD* ALGORITHM Q4 SC Last administered on 11/27/16 12:51; Admin Dose 1 UNIT; Start 11/23/16 at 17:00 GRACIE KATHLEEN Nov 27, 2016 19:53
[2016-11-27] MEDS: ATORVASTATIN 40 MG TAB GTB SCH (21:13)
[2016-11-28] VITALS (31 sets, daily range): BP systolic 83–123; BP diastolic 49–84; PULSE 90–102; RESP 16–28
[2016-11-28] MEDS: INSULIN ASPART [NOVOLOG] 3 ML PEN SC SCH ×6 (01:00→21:00)
[2016-11-28] MEDS: ACCU-CHEK XX SCH (02:00)
[2016-11-28] MEDS: PANTOPRAZOLE 40 MG INJ IV SCH ×2 (05:18→18:32)
[2016-11-28 06:14] LABS: ADD SCAN DIFF NO
[2016-11-28 06:20] LABS: BASOPHILS % 0.5 % (0.0-2.0); EOSINOPHILS # 0.2 10^3/ul (0.0-0.5); EOSINOPHILS % 2.1 % (0.0-7.0); HEMATOCRIT 31.7 % (42.0-52.0); HEMOGLOBIN 10.1 g/dl (14.0-18.0); LYMPHOCYTES % 10.9 % (15.0-51.0); MEAN CORPUSCULAR HEMOGLOBIN 31.3 pg (29.0-33.0); MEAN CORPUSCULAR HGB CONC 31.9 g/dl (32.0-37.0); MEAN CORPUSCULAR VOLUME 98.1 fl (82.0-101.0); MEAN PLATELET VOLUME 9.1 fl (7.4-10.4); MONOCYTE # 1.1 10^3/ul (0.3-0.9); MONOCYTES % 12.5 % (0.0-11.0); NEUTROPHIL # 6.4 10^3/ul (1.6-7.5); NEUTROPHILS % 73.7 % (39.0-77.0); PLATELET COUNT 228 10^3/UL (140-415); RED BLOOD COUNT 3.23 10^6/ul (4.70-6.10); RED CELL DISTRIBUTION WIDTH 18.7 % (11.5-14.5); WHITE BLOOD COUNT 8.7 10^3/ul (4.8-10.8)
[2016-11-28 06:45] LABS: CALCIUM 7.1 mg/dl (8.4-10.2); POTASSIUM 4.7 mmol/L (3.5-5.1)
[2016-11-28] MEDS: SILDENAFIL 20 MG TAB GTB SCH ×2 (09:00→21:00)
[2016-11-28] MEDS: LIDOCAINE 5% PATCH TD SCH (09:00)
[2016-11-28] MEDS: COLLAGENASE 30 GM TUBE TOP SCH (09:00)
[2016-11-28] MEDS: FLUTICASONE 0.05% 16 GM NAS SPRAY NASAL SCH ×2 (09:00→21:32)
[2016-11-28] MEDS: INSULIN GLARGINE [LANtus] 3 ML PEN SC SCH (09:00)
--- NOTE | 2016-11-28 09:39 | PN ---
DATE: 11/28/2016 SUBJECTIVE: The patient is stable, no acute events overnight. No fevers, chills, nausea, vomiting, no shortness of breath. OBJECTIVE: VITAL SIGNS: Blood pressure is 103/56, respirations 17, pulse 101, temperature 98.2. HEENT: Head is normocephalic. NECK: Supple. HEART: Regular rate. LUNGS: Show diminished breath sounds at the base. ABDOMEN: Soft, nontender to palpation, no rebound or guarding. EXTREMITIES: Negative for clubbing, cyanosis. No edema. DERMATOLOGIC: No rashes. MUSCULOSKELETAL: No joint effusions. NEUROLOGIC: No change in exam. MEDICATIONS: The patient's medications have been reviewed. LABORATORY DATA: Shows a white count 8.7, hemoglobin 10.1, hematocrit 31.7, platelet count 228. So dium 135, potassium 4.7, chloride 101, BUN 55, creatinine 3.0, calcium 7.1. ASSESSMENT AND PLAN: 1. End-stage renal disease. The patient is scheduled for hemodialysis today with dialysis 3 hours, 2 K bath, calcium 2.5. 2. Anemia of chronic disease. Continue to monitor H and H levels. Continue Epogen. 3. Mineral bone disorder. Continue to monitor calcium and phosphorus levels. 4. Volume overload, improved. 5. Sepsis secondary to pneumonia. The patient has completed an antibiotic course. 6. Ventilatory dependent respiratory failure. Vent settings has been reviewed. Continue to monito r. Follow up with pulmonary. 7. Dysphagia, status post PEG tube, continue tube feed. 8. Coronary artery disease. Continue medical management. 9. Diabetes. Continue current insulin regimen. 10. History of hypertension. Continue to monitor. The patient is normotensive. 11. History of congestive heart failure. Continue current medical management. 12. Sacral decubitus wound. Continue wound care. Dictated By: SARAHI RINALDI/OLESYA Conf#: [id number] DID#: [id number]
[2016-11-28] MEDS ORDERED: ALBUMIN HUMAN 25% 100 ML IV PRN (10:30)
[2016-11-28] MEDS: PROCHLORPERAZINE 5 MG TAB GTB PRN (10:57)
[2016-11-28] MEDS: CALCIUM/VITAMIN D (500/200) TAB GTB SCH (10:59)
[2016-11-28] MEDS: ASCORBIC ACID 500 MG TAB GTB SCH (10:59)
[2016-11-28] MEDS: LACTOBACILLUS CHEW TAB GTB SCH (10:59)
[2016-11-28] MEDS: VITAMIN B COMPLEX/VIT C CAP GTB SCH (10:59)
[2016-11-28] MEDS: NEUTRA-PHOS 250 MG PACKET GTB SCH ×2 (10:59→21:33)
[2016-11-28] MEDS: DULOXETINE 30 MG CAP DR GTB SCH (10:59)
--- NOTE | 2016-11-28 13:11 | CONS ---
Date/Time of Note Date/Time of Note DATE: 11/28/16 TIME: 13:08 Assessment/Plan Assessment/Plan Additional Assessment/Plan Ventilator settings; AC of 14, tidal volume 500, PEEP of 5, 30% FiO2. Next Assessment recommendations; 1. Patient admitted for UTI and sepsis with significant interval improvement. 2. Chronic respiratory failure, ventilator dependent. 3. Hypertension. 5. Pulmonary hypertension. 6. Chronic renal failure. On hemodialysis. Continue current treatment. Patient can be transferred to long term. Consultation Date/Type/Reason Admit Date/Time Nov 08, 2016 at 10:56 Initial Consult Date 11/08/16 Type of Consultation: Pulmonary Referring Provider: GRACIE KATHLEEN 24 HR Interval Summary Free Text/Dictation Patient condition is stable. Remains completely awake alert and responds appropriately to questions. Has remained hemodynamically stable. General exam; elderly male, currently in no distress awake and alert. Exam/Review of Systems Vital Signs Vitals Vital Signs Date Time Temp Pulse Resp B/P Pulse Ox O2 Delivery O2 Flow Rate FiO2 11/28/16 12:25 97 11/28/16 12:06 98.2 18 106/84 95 11/28/16 05:15 30 11/27/16 04:51 Mechanical Ventilator Trach Collar Intake and Output 11/27/16 11/27/16 11/28/16 15:00 23:00 07:00 Intake Total 680 ml Balance 680 ml Exam HEENT exam is; supple neck, no JVD. No lymphadenopathy. Midline trachea. No thyromegaly. Tracheostomy in place with clean insertion site. Pupils are midsize and reactive to light. No neck masses. No thyromegaly. Chest exam is; clear to auscultation. S1-S2 audible, no murmurs. Regular rhythm. Abdomen examination; soft, nontender. No organomegaly. G-tube in place. Bowel sounds audible. Extremity exam is; no peripheral edema. Pulses 1+ bilaterally. There is a well -healed left below-knee amputation stump. B[employer]ACHINE exam is; patient is awake alert follows commands moves all 3 extremities. Results Result Diagram: 11/28/16 0558 11/28/16 0558 Results 24 hrs Laboratory Tests Test 11/27/16 18:05 11/27/16 21:15 11/28/16 01:21 11/28/16 04:37 Bedside Glucose 114 118 125 154 Test 11/28/16 05:58 11/28/16 08:32 11/28/16 10:19 11/28/16 12:35 White Blood Count 8.7 Red Blood Count 3.23 L Hemoglobin 10.1 L Hematocrit 31.7 L Mean Corpuscular Volume 98.1 Mean Corpuscular Hemoglobin 31.3 Mean Corpuscular Hemoglobin Concent 31.9 L Red Cell Distribution Width 18.7 H Platelet Count 228 Mean Platelet Volume 9.1 Neutrophils % 73.7 Lymphocytes % 10.9 L Monocytes % 12.5 H Eosinophils % 2.1 Basophils % 0.5 Nucleated Red Blood Cells % 0.0 Neutrophils # 6.4 Lymphocytes # 1.0 Monocytes # 1.1 H Eosinophils # 0.2 Basophils # 0.0 Nucleated Red Blood Cells # 0.0 Sodium Level 135 Potassium Level 4.7 Chloride Level 101 Carbon Dioxide Level 26 Anion Gap 13 Blood Urea Nitrogen 55 H Creatinine 3.00 H Glucose Level 159 Calcium Level 7.1 L Bedside Glucose 152 172 159 Medications Medications Current Medications Lidocaine (Lidoderm) 1 patch DAILY TD Last administered on 11/27/16 08:56; Admin Dose 1 PATCH; Start 11/08/16 at 15:30 Acetaminophen (Tylenol Liquid) 325 mg Q4H PRN GTB MILD PAIN LEVEL 1-3 Last administered on 11/17/16 02:37; Admin Dose 325 MG; Start 11/08/16 at 15:30 Acetaminophen (Tylenol Liquid) 650 mg Q4H PRN GTB MODERATE PAIN LEVEL 4-6 Last administered on 11/21/16 20:54; Admin Dose 650 MG; Start 11/08/16 at 15:30 Ascorbic Acid (Vitamin C) 500 mg DAILY GTB Last administered on 11/28/16 10:59 ; Admin Dose 500 MG; Start 11/09/16 at 09:00 Atorvastatin Calcium (Lipitor) 40 mg QHS GTB Last administered on 11/27/16 21: 13; Admin Dose 40 MG; Start 11/08/16 at 21:00 Carvedilol (Coreg) 3.125 mg BID GTB Last administered on 11/26/16 08:53; Admin Dose 3.125 MG; Start 11/08/16 at 21:00 Duloxetine HCl (Cymbalta) 30 mg DAILY GTB Last administered on 11/28/16 10:59 ; Admin Dose 30 MG; Start 11/09/16 at 09:00 Fluticasone Propionate (Flonase 0.05% Nasal) 1 spray BID NASAL Last administered on 11/28/16 09:00; Admin Dose 1 SPRAY; Start 11/08/16 at 21:00 Lactobacillus Acidoph/Bulgaricus (Floranex) 1 tab DAILY GTB Last administered on 11/28/16 10:59; Admin Dose 1 TAB; Start 11/09/16 at 09:00 Sildenafil Citrate (Revatio) 20 mg BID GTB Last administered on 11/27/16 08:42 ; Admin Dose 20 MG; Start 11/08/16 at 21:00 Vitamin B Complex/ Vitamin C (Berocca) 1 cap DAILY GTB Last administered on 10:59; Admin Dose 1 CAP; Start 11/09/16 at 09:00 Miscellaneous Information 1 ea NOTE XX ; Start 11/08/16 at 16:00 Glucose (Glutose) 15 gm Q15M PRN PO DECREASED GLUCOSE; Start 11/08/16 at 16:00 Glucose (Glutose) 22.5 gm Q15M PRN PO DECREASED GLUCOSE; Start 11/08/16 at 16: 00 Dextrose (D50w Syringe) 25 ml Q15M PRN IV DECREASED GLUCOSE; Start 11/08/16 at 16:00 Dextrose (D50w Syringe) 50 ml Q15M PRN IV DECREASED GLUCOSE; Start 11/08/16 at 16:00 Glucagon (Glucagen) 1 mg Q15M PRN IM DECREASED GLUCOSE; Start 11/08/16 at 16:00 Glucose (Glutose) 15 gm Q15M PRN BUCCAL DECREASED GLUCOSE; Start 11/08/16 at 16 :00 Acetaminophen/ Hydrocodone Bitart ([place] (5/325)) 1 tab Q4H PRN PO SEVERE PAIN 7-10 Last administered on 11/27/16 19:52; Admin Dose 1 TAB; Start 11/08/16 at 21:00 Morphine Sulfate (morphine) 2 mg Q4H PRN IV PAIN LEVEL 7-10 Last administered on 11/27/16 18:06; Admin Dose 2 MG; Start 11/09/16 at 11:00 Collagenase (Santyl) 1 applic DAILY TOP Last administered on 11/28/16 09:00; Admin Dose 1 APPLIC; Start 11/09/16 at 16:00 Lorazepam (Ativan) 1 mg Q6H PRN IV AGITATION/ANXIETY Last administered on 14:23; Admin Dose 1 MG; Start 11/09/16 at 20:30 Pantoprazole (Protonix Iv) 40 mg BID@,18 IV Last administered on 11/28/16 05 :18; Admin Dose 40 MG; Start 11/10/16 at 06:00 Sodium Phosphate (Neutra-Phos) 250 mg BID GTB Last administered on 11/28/16 10 :59; Admin Dose 250 MG; Start 11/10/16 at 09:00 Calcium/Vitamin D (Oyster Shell/ Vit-D (500/200)) 1 tab DAILY GTB Last administered on 11/28/16 10:59; Admin Dose 1 TAB; Start 11/12/16 at 11:00 Prochlorperazine (Compazine) 5 mg Q6H PRN GTB NAUSEA AND/OR VOMITING Last administered on 11/28/16 10:57; Admin Dose 5 MG; Start 11/17/16 at 17:30 Insulin Glargine (Lantus) 16 unit DAILY SC Last administered on 11/28/16 09:00 ; Admin Dose 16 UNIT; Start 11/24/16 at 09:00 Diagnostic Test (Pha) (Accu-Chek) 1 ea 02 XX Last administered on 11/25/16 02: 06; Admin Dose 1 EA; Start 11/24/16 at 02:00 Insulin Aspart (Novolog Insulin Pen) NOVOLOG *MILD* ALGORITHM Q4 SC Last administered on 11/28/16 12:39; Admin Dose 1 UNIT; Start 11/23/16 at 17:00 ELVI BLANK Nov 28, 2016 13:10
--- NOTE | 2016-11-28 14:30 | CONS ---
Date/Time of Note Date/Time of Note DATE: 11/28/16 TIME: 14:29 Assessment/Plan Assessment/Plan Chief Complaint/Hosp Course - s/p sepsis - h/o GIB - ascites, s/p paracentesis on 11/14/2016; not consistent with SBP. Took empiric cefepime (11/12/16-11/17/16) and metronidazole (10/14/2016-11/17/16) - near complete collapse of RLL with LLL atelectasis, pulmonary edema - h/o severe C diff colitis in 2016 - ESRD on HD - VDRF with trach - G tube dependence - PVD - s/p L BKA - abdominal pain - Abd X-ray 11/16/16 shows no e/o obstruction - RLE pain - venous doppler 11/19/16 negative for DVT and right knee x-ray 11/21/16 negative for fracture - MRSA nasal colonization, completed mupirocin for 10 days - DNR recommendations - monitor off antibiotics - agree with DC planning Problems: Consultation Date/Type/Reason Admit Date/Time Nov 08, 2016 at 10:56 Initial Consult Date 11/08/16 Type of Consultation: id Referring Provider: GRACIE KATHLEEN 24 HR Interval Summary Free Text/Dictation doing well. Exam/Review of Systems Vital Signs Vitals Vital Signs Date Time Temp Pulse Resp B/P Pulse Ox O2 Delivery O2 Flow Rate FiO2 11/28/16 12:30 92 11/28/16 12:30 20 11/28/16 12:06 98.2 106/84 95 11/28/16 05:15 30 11/27/16 04:51 Mechanical Ventilator Trach Collar Intake and Output 11/27/16 11/27/16 11/28/16 15:00 23:00 07:00 Intake Total 680 ml Balance 680 ml Exam Constitutional: alert, well developed Psych: nl mood/affect, no complaints Cardiovascular: nl pulses, regular rate and rhythm Gastrointestinal: nl liver, spleen, non-tender, soft Results Result Diagram: 11/28/16 0558 11/28/16 0558 Results 24 hrs Laboratory Tests Test 11/27/16 18:05 11/27/16 21:15 11/28/16 01:21 11/28/16 04:37 Bedside Glucose 114 118 125 154 Test 11/28/16 05:58 11/28/16 08:32 11/28/16 10:19 11/28/16 12:35 White Blood Count 8.7 Red Blood Count 3.23 L Hemoglobin 10.1 L Hematocrit 31.7 L Mean Corpuscular Volume 98.1 Mean Corpuscular Hemoglobin 31.3 Mean Corpuscular Hemoglobin Concent 31.9 L Red Cell Distribution Width 18.7 H Platelet Count 228 Mean Platelet Volume 9.1 Neutrophils % 73.7 Lymphocytes % 10.9 L Monocytes % 12.5 H Eosinophils % 2.1 Basophils % 0.5 Nucleated Red Blood Cells % 0.0 Neutrophils # 6.4 Lymphocytes # 1.0 Monocytes # 1.1 H Eosinophils # 0.2 Basophils # 0.0 Nucleated Red Blood Cells # 0.0 Sodium Level 135 Potassium Level 4.7 Chloride Level 101 Carbon Dioxide Level 26 Anion Gap 13 Blood Urea Nitrogen 55 H Creatinine 3.00 H Glucose Level 159 Calcium Level 7.1 L Bedside Glucose 152 172 159 Medications Medications Current Medications Lidocaine (Lidoderm) 1 patch DAILY TD Last administered on 11/27/16 08:56; Admin Dose 1 PATCH; Start 11/08/16 at 15:30 Acetaminophen (Tylenol Liquid) 325 mg Q4H PRN GTB MILD PAIN LEVEL 1-3 Last administered on 11/17/16 02:37; Admin Dose 325 MG; Start 11/08/16 at 15:30 Acetaminophen (Tylenol Liquid) 650 mg Q4H PRN GTB MODERATE PAIN LEVEL 4-6 Last administered on 11/21/16 20:54; Admin Dose 650 MG; Start 11/08/16 at 15:30 Ascorbic Acid (Vitamin C) 500 mg DAILY GTB Last administered on 11/28/16 10:59 ; Admin Dose 500 MG; Start 11/09/16 at 09:00 Atorvastatin Calcium (Lipitor) 40 mg QHS GTB Last administered on 11/27/16 21: 13; Admin Dose 40 MG; Start 11/08/16 at 21:00 Carvedilol (Coreg) 3.125 mg BID GTB Last administered on 11/26/16 08:53; Admin Dose 3.125 MG; Start 11/08/16 at 21:00 Duloxetine HCl (Cymbalta) 30 mg DAILY GTB Last administered on 11/28/16 10:59 ; Admin Dose 30 MG; Start 11/09/16 at 09:00 Fluticasone Propionate (Flonase 0.05% Nasal) 1 spray BID NASAL Last administered on 11/28/16 09:00; Admin Dose 1 SPRAY; Start 11/08/16 at 21:00 Lactobacillus Acidoph/Bulgaricus (Floranex) 1 tab DAILY GTB Last administered on 11/28/16 10:59; Admin Dose 1 TAB; Start 11/09/16 at 09:00 Sildenafil Citrate (Revatio) 20 mg BID GTB Last administered on 11/27/16 08:42 ; Admin Dose 20 MG; Start 11/08/16 at 21:00 Vitamin B Complex/ Vitamin C (Berocca) 1 cap DAILY GTB Last administered on 10:59; Admin Dose 1 CAP; Start 11/09/16 at 09:00 Miscellaneous Information 1 ea NOTE XX ; Start 11/08/16 at 16:00 Glucose (Glutose) 15 gm Q15M PRN PO DECREASED GLUCOSE; Start 11/08/16 at 16:00 Glucose (Glutose) 22.5 gm Q15M PRN PO DECREASED GLUCOSE; Start 11/08/16 at 16: 00 Dextrose (D50w Syringe) 25 ml Q15M PRN IV DECREASED GLUCOSE; Start 11/08/16 at 16:00 Dextrose (D50w Syringe) 50 ml Q15M PRN IV DECREASED GLUCOSE; Start 11/08/16 at 16:00 Glucagon (Glucagen) 1 mg Q15M PRN IM DECREASED GLUCOSE; Start 11/08/16 at 16:00 Glucose (Glutose) 15 gm Q15M PRN BUCCAL DECREASED GLUCOSE; Start 11/08/16 at 16 :00 Acetaminophen/ Hydrocodone Bitart ([place] (5/325)) 1 tab Q4H PRN PO SEVERE PAIN 7-10 Last administered on 11/27/16 19:52; Admin Dose 1 TAB; Start 11/08/16 at 21:00 Morphine Sulfate (morphine) 2 mg Q4H PRN IV PAIN LEVEL 7-10 Last administered on 11/27/16 18:06; Admin Dose 2 MG; Start 11/09/16 at 11:00 Collagenase (Santyl) 1 applic DAILY TOP Last administered on 11/28/16 09:00; Admin Dose 1 APPLIC; Start 11/09/16 at 16:00 Lorazepam (Ativan) 1 mg Q6H PRN IV AGITATION/ANXIETY Last administered on 14:23; Admin Dose 1 MG; Start 11/09/16 at 20:30 Pantoprazole (Protonix Iv) 40 mg BID@06,18 IV Last administered on 11/28/16 05 :18; Admin Dose 40 MG; Start 11/10/16 at 06:00 Sodium Phosphate (Neutra-Phos) 250 mg BID GTB Last administered on 11/28/16 10 :59; Admin Dose 250 MG; Start 11/10/16 at 09:00 Calcium/Vitamin D (Oyster Shell/ Vit-D (500/200)) 1 tab DAILY GTB Last administered on 11/28/16 10:59; Admin Dose 1 TAB; Start 11/12/16 at 11:00 Prochlorperazine (Compazine) 5 mg Q6H PRN GTB NAUSEA AND/OR VOMITING Last administered on 11/28/16 10:57; Admin Dose 5 MG; Start 11/17/16 at 17:30 Insulin Glargine (Lantus) 16 unit DAILY SC Last administered on 11/28/16 09:00 ; Admin Dose 16 UNIT; Start 11/24/16 at 09:00 Diagnostic Test (Pha) (Accu-Chek) 1 ea 02 XX Last administered on 11/25/16 02: 06; Admin Dose 1 EA; Start 11/24/16 at 02:00 Insulin Aspart (Novolog Insulin Pen) NOVOLOG *MILD* ALGORITHM Q4 SC Last administered on 11/28/16 12:39; Admin Dose 1 UNIT; Start 11/23/16 at 17:00 JOYEC SOARES MD Nov 28, 2016 14:30
[2016-11-28] MEDS: morphine 2 MG INJ IV PRN ×2 (14:31→18:32)
--- NOTE | 2016-11-28 14:39 | PN ---
Date/Time of Note Date/Time of Note DATE: 11/28/16 TIME: 14:38 Assessment/Plan VTE Prophylaxis VTE Prophylaxis Intervention: SCD's Lines/Catheters [facility]from [facility] Saline Lock Urinary Cath still in place: No Assessment/Plan Assessment/Plan Paroxysmal atrial tachycardia Possible GI bleed Respiratory failure status post tracheostomy Diastolic congestive heart failure End-stage renal disease on hemodialysis CAD with history of PCI Diabetes Peripheral arterial disease with history of amputation Pulmonary hypertension Hypotension, improved -Blood pressure trend improving, holding parameters on coreg and sildenafil. -fluid management via hemodialysis as per our nephrology colleagues -no new cv reccomendations. Subjective 24 Hr Interval Summary Free Text/Dictation the patient with no cahgne Exam/Review of Systems Vital Signs Vitals Vital Signs Date Time Temp Pulse Resp B/P Pulse Ox O2 Delivery O2 Flow Rate FiO2 11/28/16 12:30 92 11/28/16 12:30 20 11/28/16 12:06 98.2 106/84 95 11/28/16 05:15 30 11/27/16 04:51 Mechanical Ventilator Trach Collar Intake and Output 11/27/16 11/27/16 11/28/16 14:59 22:59 06:59 Intake Total 680 ml Balance 680 ml Results Result Diagram: 11/28/16 0558 11/28/16 0558 Results 24 hrs Laboratory Tests Test 11/27/16 18:05 11/27/16 21:15 11/28/16 01:21 11/28/16 04:37 Bedside Glucose 114 118 125 154 Test 11/28/16 05:58 11/28/16 08:32 11/28/16 10:19 11/28/16 12:35 White Blood Count 8.7 Red Blood Count 3.23 L Hemoglobin 10.1 L Hematocrit 31.7 L Mean Corpuscular Volume 98.1 Mean Corpuscular Hemoglobin 31.3 Mean Corpuscular Hemoglobin Concent 31.9 L Red Cell Distribution Width 18.7 H Platelet Count 228 Mean Platelet Volume 9.1 Neutrophils % 73.7 Lymphocytes % 10.9 L Monocytes % 12.5 H Eosinophils % 2.1 Basophils % 0.5 Nucleated Red Blood Cells % 0.0 Neutrophils # 6.4 Lymphocytes # 1.0 Monocytes # 1.1 H Eosinophils # 0.2 Basophils # 0.0 Nucleated Red Blood Cells # 0.0 Sodium Level 135 Potassium Level 4.7 Chloride Level 101 Carbon Dioxide Level 26 Anion Gap 13 Blood Urea Nitrogen 55 H Creatinine 3.00 H Glucose Level 159 Calcium Level 7.1 L Bedside Glucose 152 172 159 Medications Medications Current Medications Lidocaine (Lidoderm) 1 patch DAILY TD Last administered on 11/27/16 08:56; Admin Dose 1 PATCH; Start 11/08/16 at 15:30 Acetaminophen (Tylenol Liquid) 325 mg Q4H PRN GTB MILD PAIN LEVEL 1-3 Last administered on 11/17/16 02:37; Admin Dose 325 MG; Start 11/08/16 at 15:30 Acetaminophen (Tylenol Liquid) 650 mg Q4H PRN GTB MODERATE PAIN LEVEL 4-6 Last administered on 11/21/16 20:54; Admin Dose 650 MG; Start 11/08/16 at 15:30 Ascorbic Acid (Vitamin C) 500 mg DAILY GTB Last administered on 11/28/16 10:59 ; Admin Dose 500 MG; Start 11/09/16 at 09:00 Atorvastatin Calcium (Lipitor) 40 mg QHS GTB Last administered on 11/27/16 21: 13; Admin Dose 40 MG; Start 11/08/16 at 21:00 Carvedilol (Coreg) 3.125 mg BID GTB Last administered on 11/26/16 08:53; Admin Dose 3.125 MG; Start 11/08/16 at 21:00 Duloxetine HCl (Cymbalta) 30 mg DAILY GTB Last administered on 11/28/16 10:59 ; Admin Dose 30 MG; Start 11/09/16 at 09:00 Fluticasone Propionate (Flonase 0.05% Nasal) 1 spray BID NASAL Last administered on 11/28/16 09:00; Admin Dose 1 SPRAY; Start 11/08/16 at 21:00 Lactobacillus Acidoph/Bulgaricus (Floranex) 1 tab DAILY GTB Last administered on 11/28/16 10:59; Admin Dose 1 TAB; Start 11/09/16 at 09:00 Sildenafil Citrate (Revatio) 20 mg BID GTB Last administered on 11/27/16 08:42 ; Admin Dose 20 MG; Start 11/08/16 at 21:00 Vitamin B Complex/ Vitamin C (Berocca) 1 cap DAILY GTB Last administered on 10:59; Admin Dose 1 CAP; Start 11/09/16 at 09:00 Miscellaneous Information 1 ea NOTE XX ; Start 11/08/16 at 16:00 Glucose (Glutose) 15 gm Q15M PRN PO DECREASED GLUCOSE; Start 11/08/16 at 16:00 Glucose (Glutose) 22.5 gm Q15M PRN PO DECREASED GLUCOSE; Start 11/08/16 at 16: 00 Dextrose (D50w Syringe) 25 ml Q15M PRN IV DECREASED GLUCOSE; Start 11/08/16 at 16:00 Dextrose (D50w Syringe) 50 ml Q15M PRN IV DECREASED GLUCOSE; Start 11/08/16 at 16:00 Glucagon (Glucagen) 1 mg Q15M PRN IM DECREASED GLUCOSE; Start 11/08/16 at 16:00 Glucose (Glutose) 15 gm Q15M PRN BUCCAL DECREASED GLUCOSE; Start 11/08/16 at 16 :00 Acetaminophen/ Hydrocodone Bitart ([place] (5/325)) 1 tab Q4H PRN PO SEVERE PAIN 7-10 Last administered on 11/27/16 19:52; Admin Dose 1 TAB; Start 11/08/16 at 21:00 Morphine Sulfate (morphine) 2 mg Q4H PRN IV PAIN LEVEL 7-10 Last administered on 11/28/16 14:31; Admin Dose 2 MG; Start 11/09/16 at 11:00 Collagenase (Santyl) 1 applic DAILY TOP Last administered on 11/28/16 09:00; Admin Dose 1 APPLIC; Start 11/09/16 at 16:00 Lorazepam (Ativan) 1 mg Q6H PRN IV AGITATION/ANXIETY Last administered on 14:23; Admin Dose 1 MG; Start 11/09/16 at 20:30 Pantoprazole (Protonix Iv) 40 mg BID@06,18 IV Last administered on 11/28/16 05 :18; Admin Dose 40 MG; Start 11/10/16 at 06:00 Sodium Phosphate (Neutra-Phos) 250 mg BID GTB Last administered on 11/28/16 10 :59; Admin Dose 250 MG; Start 11/10/16 at 09:00 Calcium/Vitamin D (Oyster Shell/ Vit-D (500/200)) 1 tab DAILY GTB Last administered on 11/28/16 10:59; Admin Dose 1 TAB; Start 11/12/16 at 11:00 Prochlorperazine (Compazine) 5 mg Q6H PRN GTB NAUSEA AND/OR VOMITING Last administered on 11/28/16 10:57; Admin Dose 5 MG; Start 11/17/16 at 17:30 Insulin Glargine (Lantus) 16 unit DAILY SC Last administered on 11/28/16 09:00 ; Admin Dose 16 UNIT; Start 11/24/16 at 09:00 Diagnostic Test (Pha) (Accu-Chek) 1 ea 02 XX Last administered on 11/25/16 02: 06; Admin Dose 1 EA; Start 11/24/16 at 02:00 Insulin Aspart (Novolog Insulin Pen) NOVOLOG *MILD* ALGORITHM Q4 SC Last administered on 11/28/16 12:39; Admin Dose 1 UNIT; Start 11/23/16 at 17:00 MARIANA [place] MD Nov 28, 2016 14:39
--- NOTE | 2016-11-28 16:42 | PN ---
Date/Time of Note Date/Time of Note DATE: 11/28/16 TIME: 16:41 Assessment/Plan Lines/Catheters IV Catheter Type (from Nrs): Saline Lock Urinary Cath still in place: No Assessment/Plan Assessment/Plan - Esophagitis per EGD. Continue Protonix Dr. Hernandez is following in gastroenterology consultation. - Anemia of chronic disease, on Epogen, continue to monitor hemoglobin and hematocrit, transfuse as needed. - Ascites, SBP ruled out, Status post paracentesis 11/14,ascitic fluid culture negative. - Systemic inflammatory response syndrome with leukocytosis, patient is followed by Dr. Benjamin deluna in infection disease consultation. - End-stage renal disease, hemodialysis dependent. Continue hemodialysis per nephrology. - Chronic respiratory failure with tracheostomy. Dr. Sahu is following in pulmonology consultation. - Coronary artery disease with history of PCI. - Diastolic congestive heart failure - Pulmonary hypertension - Peripheral vascular disease, status post left BKA. - Diabetes mellitus type 2, continue NovoLog per sliding scale. - Sacral decub present on admission. Continue current wound care. D/C planning DW dR [place] Exam/Review of Systems Vital Signs Vitals Vital Signs Date Time Temp Pulse Resp B/P Pulse Ox O2 Delivery O2 Flow Rate FiO2 11/28/16 15:53 98.3 103 18 123/62 97 11/28/16 05:15 30 11/27/16 04:51 Mechanical Ventilator Trach Collar Intake and Output 11/27/16 11/27/16 11/28/16 14:59 22:59 06:59 Intake Total 680 ml Balance 680 ml Results Result Diagram: 11/28/16 0558 11/28/16 0558 Results 24 hrs Laboratory Tests Test 11/27/16 18:05 11/27/16 21:15 11/28/16 01:21 11/28/16 04:37 Bedside Glucose 114 118 125 154 Test 11/28/16 05:58 11/28/16 08:32 11/28/16 10:19 11/28/16 12:35 White Blood Count 8.7 Red Blood Count 3.23 L Hemoglobin 10.1 L Hematocrit 31.7 L Mean Corpuscular Volume 98.1 Mean Corpuscular Hemoglobin 31.3 Mean Corpuscular Hemoglobin Concent 31.9 L Red Cell Distribution Width 18.7 H Platelet Count 228 Mean Platelet Volume 9.1 Neutrophils % 73.7 Lymphocytes % 10.9 L Monocytes % 12.5 H Eosinophils % 2.1 Basophils % 0.5 Nucleated Red Blood Cells % 0.0 Neutrophils # 6.4 Lymphocytes # 1.0 Monocytes # 1.1 H Eosinophils # 0.2 Basophils # 0.0 Nucleated Red Blood Cells # 0.0 Sodium Level 135 Potassium Level 4.7 Chloride Level 101 Carbon Dioxide Level 26 Anion Gap 13 Blood Urea Nitrogen 55 H Creatinine 3.00 H Glucose Level 159 Calcium Level 7.1 L Bedside Glucose 152 172 159 Medications Medications Current Medications Lidocaine (Lidoderm) 1 patch DAILY TD Last administered on 11/27/16 08:56; Admin Dose 1 PATCH; Start 11/08/16 at 15:30 Acetaminophen (Tylenol Liquid) 325 mg Q4H PRN GTB MILD PAIN LEVEL 1-3 Last administered on 11/17/16 02:37; Admin Dose 325 MG; Start 11/08/16 at 15:30 Acetaminophen (Tylenol Liquid) 650 mg Q4H PRN GTB MODERATE PAIN LEVEL 4-6 Last administered on 11/21/16 20:54; Admin Dose 650 MG; Start 11/08/16 at 15:30 Ascorbic Acid (Vitamin C) 500 mg DAILY GTB Last administered on 11/28/16 10:59 ; Admin Dose 500 MG; Start 11/09/16 at 09:00 Atorvastatin Calcium (Lipitor) 40 mg QHS GTB Last administered on 11/27/16 21: 13; Admin Dose 40 MG; Start 11/08/16 at 21:00 Carvedilol (Coreg) 3.125 mg BID GTB Last administered on 11/26/16 08:53; Admin Dose 3.125 MG; Start 11/08/16 at 21:00 Duloxetine HCl (Cymbalta) 30 mg DAILY GTB Last administered on 11/28/16 10:59 ; Admin Dose 30 MG; Start 11/09/16 at 09:00 Fluticasone Propionate (Flonase 0.05% Nasal) 1 spray BID NASAL Last administered on 11/28/16 09:00; Admin Dose 1 SPRAY; Start 11/08/16 at 21:00 Lactobacillus Acidoph/Bulgaricus (Floranex) 1 tab DAILY GTB Last administered on 11/28/16 10:59; Admin Dose 1 TAB; Start 11/09/16 at 09:00 Sildenafil Citrate (Revatio) 20 mg BID GTB Last administered on 11/27/16 08:42 ; Admin Dose 20 MG; Start 11/08/16 at 21:00 Vitamin B Complex/ Vitamin C (Berocca) 1 cap DAILY GTB Last administered on 10:59; Admin Dose 1 CAP; Start 11/09/16 at 09:00 Miscellaneous Information 1 ea NOTE XX ; Start 11/08/16 at 16:00 Glucose (Glutose) 15 gm Q15M PRN PO DECREASED GLUCOSE; Start 11/08/16 at 16:00 Glucose (Glutose) 22.5 gm Q15M PRN PO DECREASED GLUCOSE; Start 11/08/16 at 16: 00 Dextrose (D50w Syringe) 25 ml Q15M PRN IV DECREASED GLUCOSE; Start 11/08/16 at 16:00 Dextrose (D50w Syringe) 50 ml Q15M PRN IV DECREASED GLUCOSE; Start 11/08/16 at 16:00 Glucagon (Glucagen) 1 mg Q15M PRN IM DECREASED GLUCOSE; Start 11/08/16 at 16:00 Glucose (Glutose) 15 gm Q15M PRN BUCCAL DECREASED GLUCOSE; Start 11/08/16 at 16 :00 Acetaminophen/ Hydrocodone Bitart ([place] (5/325)) 1 tab Q4H PRN PO SEVERE PAIN 7-10 Last administered on 11/27/16 19:52; Admin Dose 1 TAB; Start 11/08/16 at 21:00 Morphine Sulfate (morphine) 2 mg Q4H PRN IV PAIN LEVEL 7-10 Last administered on 11/28/16 14:31; Admin Dose 2 MG; Start 11/09/16 at 11:00 Collagenase (Santyl) 1 applic DAILY TOP Last administered on 11/28/16 09:00; Admin Dose 1 APPLIC; Start 11/09/16 at 16:00 Lorazepam (Ativan) 1 mg Q6H PRN IV AGITATION/ANXIETY Last administered on 14:23; Admin Dose 1 MG; Start 11/09/16 at 20:30 Pantoprazole (Protonix Iv) 40 mg BID@18 IV Last administered on 11/28/16 05 :18; Admin Dose 40 MG; Start 11/10/16 at 06:00 Sodium Phosphate (Neutra-Phos) 250 mg BID GTB Last administered on 11/28/16 10 :59; Admin Dose 250 MG; Start 11/10/16 at 09:00 Calcium/Vitamin D (Oyster Shell/ Vit-D (500/200)) 1 tab DAILY GTB Last administered on 11/28/16 10:59; Admin Dose 1 TAB; Start 11/12/16 at 11:00 Prochlorperazine (Compazine) 5 mg Q6H PRN GTB NAUSEA AND/OR VOMITING Last administered on 11/28/16 10:57; Admin Dose 5 MG; Start 11/17/16 at 17:30 Insulin Glargine (Lantus) 16 unit DAILY SC Last administered on 11/28/16 09:00 ; Admin Dose 16 UNIT; Start 11/24/16 at 09:00 Diagnostic Test (Pha) (Accu-Chek) 1 ea 02 XX Last administered on 11/25/16 02: 06; Admin Dose 1 EA; Start 11/24/16 at 02:00 Insulin Aspart (Novolog Insulin Pen) NOVOLOG *MILD* ALGORITHM Q4 SC Last administered on 11/28/16 12:39; Admin Dose 1 UNIT; Start 11/23/16 at 17:00 GRACIE KATHLEEN Nov 28, 2016 16:42
[2016-11-28] MEDS: ATORVASTATIN 40 MG TAB GTB SCH (21:32)
[2016-11-28] MEDS: LORAZEPAM 2 MG INJ IV PRN (21:35)
[2016-11-29] VITALS (26 sets, daily range): BP systolic 93–121; BP diastolic 48–61; PULSE 90–95; RESP 15–24
[2016-11-29] MEDS: INSULIN ASPART [NOVOLOG] 3 ML PEN SC SCH ×7 (01:00→21:00)
[2016-11-29] MEDS: ACCU-CHEK XX SCH (02:00)
[2016-11-29] MEDS: PANTOPRAZOLE 40 MG INJ IV SCH (05:46)
[2016-11-29] MEDS: morphine 2 MG INJ IV PRN ×4 (06:05→22:04)
[2016-11-29 06:45] LABS: ADD SCAN DIFF NO
[2016-11-29 06:49] LABS: BASOPHILS % 0.5 % (0.0-2.0); EOSINOPHILS # 0.2 10^3/ul (0.0-0.5); EOSINOPHILS % 2.3 % (0.0-7.0); HEMATOCRIT 29.9 % (42.0-52.0); HEMOGLOBIN 9.3 g/dl (14.0-18.0); LYMPHOCYTES # 0.9 10^3/ul (0.8-2.9); LYMPHOCYTES % 11.3 % (15.0-51.0); MEAN CORPUSCULAR HGB CONC 31.1 g/dl (32.0-37.0); MEAN CORPUSCULAR VOLUME 99.7 fl (82.0-101.0); MEAN PLATELET VOLUME 9.1 fl (7.4-10.4); MONOCYTE # 1.1 10^3/ul (0.3-0.9); MONOCYTES % 13.4 % (0.0-11.0); NEUTROPHIL # 5.8 10^3/ul (1.6-7.5); NEUTROPHILS % 72.1 % (39.0-77.0); PLATELET COUNT 236 10^3/UL (140-415); RED CELL DISTRIBUTION WIDTH 18.6 % (11.5-14.5); WHITE BLOOD COUNT 8.1 10^3/ul (4.8-10.8)
[2016-11-29 07:03] LABS: CREATININE 2.67 mg/dl (0.61-1.24)
[2016-11-29 07:04] LABS: CALCIUM 7.4 mg/dl (8.4-10.2)
--- NOTE | 2016-11-29 08:07 | PN ---
Date/Time of Note Date/Time of Note DATE: 11/29/16 TIME: 08:06 Assessment/Plan VTE Prophylaxis VTE Prophylaxis Intervention: SCD's Lines/Catheters [facility] Saline Lock Urinary Cath still in place: No Assessment/Plan Assessment/Plan Paroxysmal atrial tachycardia Possible GI bleed Respiratory failure status post tracheostomy Diastolic congestive heart failure End-stage renal disease on hemodialysis CAD with history of PCI Diabetes Peripheral arterial disease with history of amputation Pulmonary hypertension Hypotension, improved -Blood pressure trend improving, holding parameters on coreg and sildenafil. -fluid management via hemodialysis as per our nephrology colleagues -no new cv reccomendations Subjective 24 Hr Interval Summary Free Text/Dictation the patient with no change Exam/Review of Systems Vital Signs Vitals Vital Signs Date Time Temp Pulse Resp B/P Pulse Ox O2 Delivery O2 Flow Rate FiO2 11/29/16 07:02 98.3 93 19 106/59 97 11/29/16 05:00 30 11/27/16 04:51 Mechanical Ventilator Trach Collar Intake and Output 11/28/16 11/28/16 11/29/16 15:00 23:00 07:00 Intake Total 600 ml 700 ml 640 ml Output Total 2600 ml Balance -2000 ml 700 ml 640 ml Results Result Diagram: 11/29/16 0600 11/29/16 0600 Results 24 hrs Laboratory Tests Test 11/28/16 08:32 11/28/16 10:19 11/28/16 12:35 11/28/16 17:23 Bedside Glucose 152 172 159 125 Test 11/28/16 21:33 11/29/16 01:22 11/29/16 04:58 11/29/16 06:00 Bedside Glucose 96 115 147 White Blood Count 8.1 Red Blood Count 3.00 L Hemoglobin 9.3 L Hematocrit 29.9 L Mean Corpuscular Volume 99.7 Mean Corpuscular Hemoglobin 31.0 Mean Corpuscular Hemoglobin Concent 31.1 L Red Cell Distribution Width 18.6 H Platelet Count 236 Mean Platelet Volume 9.1 Neutrophils % 72.1 Lymphocytes % 11.3 L Monocytes % 13.4 H Eosinophils % 2.3 Basophils % 0.5 Nucleated Red Blood Cells % 0.0 Neutrophils # 5.8 Lymphocytes # 0.9 Monocytes # 1.1 H Eosinophils # 0.2 Basophils # 0.0 Nucleated Red Blood Cells # 0.0 Sodium Level 138 Potassium Level 4.0 Chloride Level 98 Carbon Dioxide Level 28 Anion Gap 16 Blood Urea Nitrogen 41 #H Creatinine 2.67 H Glucose Level 139 Calcium Level 7.4 L Medications Medications Current Medications Lidocaine (Lidoderm) 1 patch DAILY TD Last administered on 11/27/16 08:56; Admin Dose 1 PATCH; Start 11/08/16 at 15:30 Acetaminophen (Tylenol Liquid) 325 mg Q4H PRN GTB MILD PAIN LEVEL 1-3 Last administered on 11/17/16 02:37; Admin Dose 325 MG; Start 11/08/16 at 15:30 Acetaminophen (Tylenol Liquid) 650 mg Q4H PRN GTB MODERATE PAIN LEVEL 4-6 Last administered on 11/21/16 20:54; Admin Dose 650 MG; Start 11/08/16 at 15:30 Ascorbic Acid (Vitamin C) 500 mg DAILY GTB Last administered on 11/28/16 10:59 ; Admin Dose 500 MG; Start 11/09/16 at 09:00 Atorvastatin Calcium (Lipitor) 40 mg QHS GTB Last administered on 11/28/16 21: 32; Admin Dose 40 MG; Start 11/08/16 at 21:00 Carvedilol (Coreg) 3.125 mg BID GTB Last administered on 11/26/16 08:53; Admin Dose 3.125 MG; Start 11/08/16 at 21:00 Duloxetine HCl (Cymbalta) 30 mg DAILY GTB Last administered on 11/28/16 10:59 ; Admin Dose 30 MG; Start 11/09/16 at 09:00 Fluticasone Propionate (Flonase 0.05% Nasal) 1 spray BID NASAL Last administered on 11/28/16 21:32; Admin Dose 1 SPRAY; Start 11/08/16 at 21:00 Lactobacillus Acidoph/Bulgaricus (Floranex) 1 tab DAILY GTB Last administered on 11/28/16 10:59; Admin Dose 1 TAB; Start 11/09/16 at 09:00 Sildenafil Citrate (Revatio) 20 mg BID GTB Last administered on 11/27/16 08:42 ; Admin Dose 20 MG; Start 11/08/16 at 21:00 Vitamin B Complex/ Vitamin C (Berocca) 1 cap DAILY GTB Last administered on 10:59; Admin Dose 1 CAP; Start 11/09/16 at 09:00 Miscellaneous Information 1 ea NOTE XX ; Start 11/08/16 at 16:00 Glucose (Glutose) 15 gm Q15M PRN PO DECREASED GLUCOSE; Start 11/08/16 at 16:00 Glucose (Glutose) 22.5 gm Q15M PRN PO DECREASED GLUCOSE; Start 11/08/16 at 16: 00 Dextrose (D50w Syringe) 25 ml Q15M PRN IV DECREASED GLUCOSE; Start 11/08/16 at 16:00 Dextrose (D50w Syringe) 50 ml Q15M PRN IV DECREASED GLUCOSE; Start 11/08/16 at 16:00 Glucagon (Glucagen) 1 mg Q15M PRN IM DECREASED GLUCOSE; Start 11/08/16 at 16:00 Glucose (Glutose) 15 gm Q15M PRN BUCCAL DECREASED GLUCOSE; Start 11/08/16 at 16 :00 Acetaminophen/ Hydrocodone Bitart ([place] (5/325)) 1 tab Q4H PRN PO SEVERE PAIN 7-10 Last administered on 11/27/16 19:52; Admin Dose 1 TAB; Start 11/08/16 at 21:00 Morphine Sulfate (morphine) 2 mg Q4H PRN IV PAIN LEVEL 7-10 Last administered on 11/29/16 06:05; Admin Dose 2 MG; Start 11/09/16 at 11:00 Collagenase (Santyl) 1 applic DAILY TOP Last administered on 11/28/16 09:00; Admin Dose 1 APPLIC; Start 11/09/16 at 16:00 Lorazepam (Ativan) 1 mg Q6H PRN IV AGITATION/ANXIETY Last administered on 21:35; Admin Dose 1 MG; Start 11/09/16 at 20:30 Pantoprazole (Protonix Iv) 40 mg BID@06,18 IV Last administered on 11/29/16 05 :46; Admin Dose 40 MG; Start 11/10/16 at 06:00 Sodium Phosphate (Neutra-Phos) 250 mg BID GTB Last administered on 11/28/16 21 :33; Admin Dose 250 MG; Start 11/10/16 at 09:00 Calcium/Vitamin D ([place]/ Vit-D (500/200)) 1 tab DAILY GTB Last administered on 11/28/16 10:59; Admin Dose 1 TAB; Start 11/12/16 at 11:00 Prochlorperazine (Compazine) 5 mg Q6H PRN GTB NAUSEA AND/OR VOMITING Last administered on 11/28/16 10:57; Admin Dose 5 MG; Start 11/17/16 at 17:30 Insulin Glargine (Lantus) 16 unit DAILY SC Last administered on 11/28/16 09:00 ; Admin Dose 16 UNIT; Start 11/24/16 at 09:00 Diagnostic Test (Pha) (Accu-Chek) 1 ea 02 XX Last administered on 11/25/16 02: 06; Admin Dose 1 EA; Start 11/24/16 at 02:00 Insulin Aspart (Novolog Insulin Pen) NOVOLOG *MILD* ALGORITHM Q4 SC Last administered on 11/29/16 05:18; Admin Dose 1 UNIT; Start 11/23/16 at 17:00 MARIANA [place] MD Nov 29, 2016 08:07
[2016-11-29] MEDS: LIDOCAINE 5% PATCH TD SCH (09:00)
[2016-11-29] MEDS: SILDENAFIL 20 MG TAB GTB SCH (09:00)
--- NOTE | 2016-11-29 09:08 | PN ---
DATE: 11/29/2016 SUBJECTIVE: The patient is stable, no acute events overnight. The patient had hemodialysis yesterd ay, tolerated well with 2 liters removed. OBJECTIVE: VITAL SIGNS: Blood pressure 106/59, respirations 19, pulse 73, temperature 98.3. HEENT: Head is normocephalic. NECK: Supple. HEART: Regular rate. LUNGS: Show diminished breath sounds at the base. ABDOMEN: Soft, nontender to palpation. No rebound or guarding. EXTREMITIES: Negative for clubbing, cyanosis, no edema. DERMATOLOGIC: No rashes. MUSCULOSKELETAL: No joint effusion. Positive BKA. NEUROLOGIC: No change in exam. MEDICATIONS: The patient's medications have been reviewed. LABORATORY DATA: Shows sodium ____, potassium 4.0, chloride 98, BUN ____, creatinine 2.67. White c ount 8.1, hemoglobin 7.3, hematocrit 29.9, platelet count is 236. ASSESSMENT AND PLAN: 1. End-stage renal disease. The patient had hemodialysis yesterday, tolerated well. Plan for dial ysis tomorrow. 2. ____ disease. Continue to monitor H and H levels. Continue Epogen. 3. Mineral bone disorder. Continue to monitor calcium and phosphorous levels. 4. Sepsis secondary to pneumonia. Patient has completed antibiotic course. 5. Ventilatory dependent respiratory failure. Vent settings have been reviewed. Continue to monit or. Follow up with pulmonary. 6. Dysphagia. Status post PEG tube, tube feeding. 7. Coronary artery disease. Continue medical management. 8. Diabetes. Continue current insulin regimen. 9. History of hypertension. Continue to monitor. 10. Congestive heart failure, improving. Continue to monitor. 11. Sacral decubitus wound. Continue wound care. Dictated By: SARAHI RINALDI/NTS Conf#: [id number] DID#: [id number]
[2016-11-29] MEDS: VITAMIN B COMPLEX/VIT C CAP GTB SCH (09:48)
[2016-11-29] MEDS: FLUTICASONE 0.05% 16 GM NAS SPRAY NASAL SCH (09:48)
[2016-11-29] MEDS: ASCORBIC ACID 500 MG TAB GTB SCH (09:48)
[2016-11-29] MEDS: NEUTRA-PHOS 250 MG PACKET GTB SCH (09:48)
[2016-11-29] MEDS: DULOXETINE 30 MG CAP DR GTB SCH (09:48)
[2016-11-29] MEDS: CALCIUM/VITAMIN D (500/200) TAB GTB SCH (09:48)
[2016-11-29] MEDS: LACTOBACILLUS CHEW TAB GTB SCH (09:48)
[2016-11-29] MEDS: COLLAGENASE 30 GM TUBE TOP SCH (09:49)
[2016-11-29] MEDS: INSULIN GLARGINE [LANtus] 3 ML PEN SC SCH (10:01)
--- NOTE | 2016-11-29 10:31 | CONS ---
Date/Time of Note Date/Time of Note DATE: 11/29/16 TIME: 10:29 Assessment/Plan Assessment/Plan Additional Assessment/Plan Ventilator settings; AC of 14, tidal volume 500, PEEP of 5, 30% FiO2. Assessment recommendations; 1. Patient admitted for UTI and sepsis with marked interval improvement. 2. Chronic respiratory failure. 3. History of CVA. 4. Chronic renal failure on hemodialysis. Continue current treatment. Patient can be discharged to correction. Consultation Date/Type/Reason Admit Date/Time Nov 08, 2016 at 10:56 Initial Consult Date 11/08/16 Type of Consultation: Pulmonary Referring Provider: GRACIE KATHLEEN 24 HR Interval Summary Free Text/Dictation Patient condition remains stable. Remains awake alert. Follows simple commands. Able to move both upper extremities and right lower extremity on command. Has remained hemodynamically stable. General exam; elderly male, on ventilator via tracheostomy currently in no distress, awake and alert. Exam/Review of Systems Vital Signs Vitals Vital Signs Date Time Temp Pulse Resp B/P Pulse Ox O2 Delivery O2 Flow Rate FiO2 11/29/16 09:10 95 17 96 30 11/29/16 07:02 98.3 106/59 11/27/16 04:51 Mechanical Ventilator Trach Collar Intake and Output 11/28/16 11/28/16 11/29/16 15:00 23:00 07:00 Intake Total 600 ml 700 ml 640 ml Output Total 2600 ml Balance -2000 ml 700 ml 640 ml Exam HEENT exam is; supple neck, no JVD. No lymphadenopathy. Midline trachea. No thyromegaly. Tracheostomy in place with clean insertion site. No neck masses. Pupils are midsize and reactive to light. Chest exam; clear to auscultation. S1-S2 audible, no murmurs. Regular rhythm. Abdomen examination; soft, G-tube in place. Nondistended. Nontender. No organomegaly. Bowel sounds audible. Extremity exam; no peripheral edema. Patient has a well-healed left below-knee amputation stump. CATERING ATTENDANT examination; patient is awake alert follows commands and moves both upper and right lower extremities. Results Result Diagram: 11/29/16 0600 11/29/16 0600 Results 24 hrs Laboratory Tests Test 11/28/16 12:35 11/28/16 17:23 11/28/16 21:33 11/29/16 01:22 Bedside Glucose 159 125 96 115 Test 11/29/16 04:58 11/29/16 06:00 11/29/16 08:06 Bedside Glucose 147 184 White Blood Count 8.1 Red Blood Count 3.00 L Hemoglobin 9.3 L Hematocrit 29.9 L Mean Corpuscular Volume 99.7 Mean Corpuscular Hemoglobin 31.0 Mean Corpuscular Hemoglobin Concent 31.1 L Red Cell Distribution Width 18.6 H Platelet Count 236 Mean Platelet Volume 9.1 Neutrophils % 72.1 Lymphocytes % 11.3 L Monocytes % 13.4 H Eosinophils % 2.3 Basophils % 0.5 Nucleated Red Blood Cells % 0.0 Neutrophils # 5.8 Lymphocytes # 0.9 Monocytes # 1.1 H Eosinophils # 0.2 Basophils # 0.0 Nucleated Red Blood Cells # 0.0 Sodium Level 138 Potassium Level 4.0 Chloride Level 98 Carbon Dioxide Level 28 Anion Gap 16 Blood Urea Nitrogen 41 #H Creatinine 2.67 H Glucose Level 139 Calcium Level 7.4 L Medications Medications Current Medications Lidocaine (Lidoderm) 1 patch DAILY TD Last administered on 11/27/16 08:56; Admin Dose 1 PATCH; Start 11/08/16 at 15:30 Acetaminophen (Tylenol Liquid) 325 mg Q4H PRN GTB MILD PAIN LEVEL 1-3 Last administered on 11/17/16 02:37; Admin Dose 325 MG; Start 11/08/16 at 15:30 Acetaminophen (Tylenol Liquid) 650 mg Q4H PRN GTB MODERATE PAIN LEVEL 4-6 Last administered on 11/21/16 20:54; Admin Dose 650 MG; Start 11/08/16 at 15:30 Ascorbic Acid (Vitamin C) 500 mg DAILY GTB Last administered on 11/29/16 09:48 ; Admin Dose 500 MG; Start 11/09/16 at 09:00 Atorvastatin Calcium (Lipitor) 40 mg QHS GTB Last administered on 11/28/16 21: 32; Admin Dose 40 MG; Start 11/08/16 at 21:00 Carvedilol (Coreg) 3.125 mg BID GTB Last administered on 11/26/16 08:53; Admin Dose 3.125 MG; Start 11/08/16 at 21:00 Duloxetine HCl (Cymbalta) 30 mg DAILY GTB Last administered on 11/29/16 09:48 ; Admin Dose 30 MG; Start 11/09/16 at 09:00 Fluticasone Propionate (Flonase 0.05% Nasal) 1 spray BID NASAL Last administered on 11/29/16 09:48; Admin Dose 1 SPRAY; Start 11/08/16 at 21:00 Lactobacillus Acidoph/Bulgaricus (Floranex) 1 tab DAILY GTB Last administered on 11/29/16 09:48; Admin Dose 1 TAB; Start 11/09/16 at 09:00 Sildenafil Citrate (Revatio) 20 mg BID GTB Last administered on 11/27/16 08:42 ; Admin Dose 20 MG; Start 11/08/16 at 21:00 Vitamin B Complex/ Vitamin C (Berocca) 1 cap DAILY GTB Last administered on 09:48; Admin Dose 1 CAP; Start 11/09/16 at 09:00 Miscellaneous Information 1 ea NOTE XX ; Start 11/08/16 at 16:00 Glucose (Glutose) 15 gm Q15M PRN PO DECREASED GLUCOSE; Start 11/08/16 at 16:00 Glucose (Glutose) 22.5 gm Q15M PRN PO DECREASED GLUCOSE; Start 11/08/16 at 16: 00 Dextrose (D50w Syringe) 25 ml Q15M PRN IV DECREASED GLUCOSE; Start 11/08/16 at 16:00 Dextrose (D50w Syringe) 50 ml Q15M PRN IV DECREASED GLUCOSE; Start 11/08/16 at 16:00 Glucagon (Glucagen) 1 mg Q15M PRN IM DECREASED GLUCOSE; Start 11/08/16 at 16:00 Glucose (Glutose) 15 gm Q15M PRN BUCCAL DECREASED GLUCOSE; Start 11/08/16 at 16 :00 Acetaminophen/ Hydrocodone Bitart ([place] (5/325)) 1 tab Q4H PRN PO SEVERE PAIN 7-10 Last administered on 11/27/16 19:52; Admin Dose 1 TAB; Start 11/08/16 at 21:00 Morphine Sulfate (morphine) 2 mg Q4H PRN IV PAIN LEVEL 7-10 Last administered on 11/29/16 06:05; Admin Dose 2 MG; Start 11/09/16 at 11:00 Collagenase (Santyl) 1 applic DAILY TOP Last administered on 11/29/16 09:49; Admin Dose 1 APPLIC; Start 11/09/16 at 16:00 Lorazepam (Ativan) 1 mg Q6H PRN IV AGITATION/ANXIETY Last administered on 21:35; Admin Dose 1 MG; Start 11/09/16 at 20:30 Pantoprazole (Protonix Iv) 40 mg BID@06,18 IV Last administered on 11/29/16 05 :46; Admin Dose 40 MG; Start 11/10/16 at 06:00 Sodium Phosphate (Neutra-Phos) 250 mg BID GTB Last administered on 11/29/16 09 :48; Admin Dose 250 MG; Start 11/10/16 at 09:00 Calcium/Vitamin D (Oyster Shell/ Vit-D (500/200)) 1 tab DAILY GTB Last administered on 11/29/16 09:48; Admin Dose 1 TAB; Start 11/12/16 at 11:00 Prochlorperazine (Compazine) 5 mg Q6H PRN GTB NAUSEA AND/OR VOMITING Last administered on 11/28/16 10:57; Admin Dose 5 MG; Start 11/17/16 at 17:30 Insulin Glargine (Lantus) 16 unit DAILY SC Last administered on 11/29/16 10:01 ; Admin Dose 16 UNIT; Start 11/24/16 at 09:00 Diagnostic Test (Pha) (Accu-Chek) 1 ea 02 XX Last administered on 11/25/16 02: 06; Admin Dose 1 EA; Start 11/24/16 at 02:00 Insulin Aspart (Novolog Insulin Pen) NOVOLOG *MILD* ALGORITHM Q4 SC Last administered on 11/29/16 09:58; Admin Dose 2 UNIT; Start 11/23/16 at 17:00 ELVI BLANK Nov 29, 2016 10:31
--- NOTE | 2016-11-29 12:22 | PN ---
Date/Time of Note Date/Time of Note DATE: 11/29/16 TIME: 12:18 Assessment/Plan VTE Prophylaxis VTE Prophylaxis Intervention: other Lines/Catheters IV Catheter Type (from [facility]): [facility] Urinary Cath still in place: No Assessment/Plan Assessment/Plan - Esophagitis per EGD. Continue Protonix Dr. Hernandez is following in gastroenterology consultation. - Anemia of chronic disease, on Epogen, continue to monitor hemoglobin and hematocrit, transfuse as needed. - Ascites, SBP ruled out, Status post paracentesis 11/14,ascitic fluid culture negative. - Systemic inflammatory response syndrome with leukocytosis, patient is followed by Dr. Benjamin deluna in infection disease consultation. - End-stage renal disease, hemodialysis dependent. Continue hemodialysis per nephrology. - Chronic respiratory failure with tracheostomy. Dr. Sahu is following in pulmonology consultation. - Coronary artery disease with history of PCI. - Diastolic congestive heart failure - Pulmonary hypertension - Peripheral vascular disease, status post left BKA. - Diabetes mellitus type 2, continue NovoLog per sliding scale. - Sacral decub present on admission. Continue current wound care. D/C planning DW dR Miramontes Subjective 24 Hr Interval Summary Constitutional: requiring IVF, requiring O2 Respiratory: shortness of breath Cardiovascular: no complaints Genitourinary: no complaints Exam/Review of Systems Vital Signs Vitals Vital Signs Date Time Temp Pulse Resp B/P Pulse Ox O2 Delivery O2 Flow Rate FiO2 11/29/16 11:24 98.2 93 19 94/53 95 11/29/16 11:10 30 11/27/16 04:51 Mechanical Ventilator Trach Collar Intake and Output 11/28/16 11/28/16 11/29/16 15:00 23:00 07:00 Intake Total 600 ml 700 ml 640 ml Output Total 2600 ml Balance -2000 ml 700 ml 640 ml Exam Constitutional: alert Psych: nl mood/affect Eyes: EOMI, PERRL, nl sclera ENMT: nl external ears & nose Neck: non-tender Respiratory: diminished breath sounds Cardiovascular: nl pulses Musculoskeletal: other Extremities: edema Lymph: nontender Results Result Diagram: 11/29/16 0600 11/29/16 0600 Results 24 hrs Laboratory Tests Test 11/28/16 12:35 11/28/16 17:23 11/28/16 21:33 11/29/16 01:22 Bedside Glucose 159 125 96 115 Test 11/29/16 04:58 11/29/16 06:00 11/29/16 08:06 11/29/16 11:57 Bedside Glucose 147 184 141 White Blood Count 8.1 Red Blood Count 3.00 L Hemoglobin 9.3 L Hematocrit 29.9 L Mean Corpuscular Volume 99.7 Mean Corpuscular Hemoglobin 31.0 Mean Corpuscular Hemoglobin Concent 31.1 L Red Cell Distribution Width 18.6 H Platelet Count 236 Mean Platelet Volume 9.1 Neutrophils % 72.1 Lymphocytes % 11.3 L Monocytes % 13.4 H Eosinophils % 2.3 Basophils % 0.5 Nucleated Red Blood Cells % 0.0 Neutrophils # 5.8 Lymphocytes # 0.9 Monocytes # 1.1 H Eosinophils # 0.2 Basophils # 0.0 Nucleated Red Blood Cells # 0.0 Sodium Level 138 Potassium Level 4.0 Chloride Level 98 Carbon Dioxide Level 28 Anion Gap 16 Blood Urea Nitrogen 41 #H Creatinine 2.67 H Glucose Level 139 Calcium Level 7.4 L Medications Medications Current Medications Lidocaine (Lidoderm) 1 patch DAILY TD Last administered on 11/27/16 08:56; Admin Dose 1 PATCH; Start 11/08/16 at 15:30 Acetaminophen (Tylenol Liquid) 325 mg Q4H PRN GTB MILD PAIN LEVEL 1-3 Last administered on 11/17/16 02:37; Admin Dose 325 MG; Start 11/08/16 at 15:30 Acetaminophen (Tylenol Liquid) 650 mg Q4H PRN GTB MODERATE PAIN LEVEL 4-6 Last administered on 11/21/16 20:54; Admin Dose 650 MG; Start 11/08/16 at 15:30 Ascorbic Acid (Vitamin C) 500 mg DAILY GTB Last administered on 11/29/16 09:48 ; Admin Dose 500 MG; Start 11/09/16 at 09:00 Atorvastatin Calcium (Lipitor) 40 mg QHS GTB Last administered on 11/28/16 21: 32; Admin Dose 40 MG; Start 11/08/16 at 21:00 Carvedilol (Coreg) 3.125 mg BID GTB Last administered on 11/26/16 08:53; Admin Dose 3.125 MG; Start 11/08/16 at 21:00 Duloxetine HCl (Cymbalta) 30 mg DAILY GTB Last administered on 11/29/16 09:48 ; Admin Dose 30 MG; Start 11/09/16 at 09:00 Fluticasone Propionate (Flonase 0.05% Nasal) 1 spray BID NASAL Last administered on 11/29/16 09:48; Admin Dose 1 SPRAY; Start 11/08/16 at 21:00 Lactobacillus Acidoph/Bulgaricus (Floranex) 1 tab DAILY GTB Last administered on 11/29/16 09:48; Admin Dose 1 TAB; Start 11/09/16 at 09:00 Sildenafil Citrate (Revatio) 20 mg BID GTB Last administered on 11/27/16 08:42 ; Admin Dose 20 MG; Start 11/08/16 at 21:00 Vitamin B Complex/ Vitamin C (Berocca) 1 cap DAILY GTB Last administered on 09:48; Admin Dose 1 CAP; Start 11/09/16 at 09:00 Miscellaneous Information 1 ea NOTE XX ; Start 11/08/16 at 16:00 Glucose (Glutose) 15 gm Q15M PRN PO DECREASED GLUCOSE; Start 11/08/16 at 16:00 Glucose (Glutose) 22.5 gm Q15M PRN PO DECREASED GLUCOSE; Start 11/08/16 at 16: 00 Dextrose (D50w Syringe) 25 ml Q15M PRN IV DECREASED GLUCOSE; Start 11/08/16 at 16:00 Dextrose (D50w Syringe) 50 ml Q15M PRN IV DECREASED GLUCOSE; Start 11/08/16 at 16:00 Glucagon (Glucagen) 1 mg Q15M PRN IM DECREASED GLUCOSE; Start 11/08/16 at 16:00 Glucose (Glutose) 15 gm Q15M PRN BUCCAL DECREASED GLUCOSE; Start 11/08/16 at 16 :00 Acetaminophen/ Hydrocodone Bitart ([place] (5/325)) 1 tab Q4H PRN PO SEVERE PAIN 7-10 Last administered on 11/27/16 19:52; Admin Dose 1 TAB; Start 11/08/16 at 21:00 Morphine Sulfate (morphine) 2 mg Q4H PRN IV PAIN LEVEL 7-10 Last administered on 11/29/16 10:38; Admin Dose 2 MG; Start 11/09/16 at 11:00 Collagenase (Santyl) 1 applic DAILY TOP Last administered on 11/29/16 09:49; Admin Dose 1 APPLIC; Start 11/09/16 at 16:00 Lorazepam (Ativan) 1 mg Q6H PRN IV AGITATION/ANXIETY Last administered on 21:35; Admin Dose 1 MG; Start 11/09/16 at 20:30 Pantoprazole (Protonix Iv) 40 mg BID@06,18 IV Last administered on 11/29/16 05 :46; Admin Dose 40 MG; Start 11/10/16 at 06:00 Sodium Phosphate (Neutra-Phos) 250 mg BID GTB Last administered on 11/29/16 09 :48; Admin Dose 250 MG; Start 11/10/16 at 09:00 Calcium/Vitamin D (Oyster Shell/ Vit-D (500/200)) 1 tab DAILY GTB Last administered on 11/29/16 09:48; Admin Dose 1 TAB; Start 11/12/16 at 11:00 Prochlorperazine (Compazine) 5 mg Q6H PRN GTB NAUSEA AND/OR VOMITING Last administered on 11/28/16 10:57; Admin Dose 5 MG; Start 11/17/16 at 17:30 Insulin Glargine (Lantus) 16 unit DAILY SC Last administered on 11/29/16 10:01 ; Admin Dose 16 UNIT; Start 11/24/16 at 09:00 Diagnostic Test (Pha) (Accu-Chek) 1 ea 02 XX Last administered on 11/25/16 02: 06; Admin Dose 1 EA; Start 11/24/16 at 02:00 Insulin Aspart (Novolog Insulin Pen) NOVOLOG *MILD* ALGORITHM Q4 SC Last administered on 11/29/16 09:58; Admin Dose 2 UNIT; Start 11/23/16 at 17:00 GRACIE KATHLEEN Nov 29, 2016 12:21
--- NOTE | 2016-11-29 13:12 | CONS ---
Date/Time of Note Date/Time of Note DATE: 11/29/16 TIME: 13:12 Assessment/Plan Assessment/Plan Chief Complaint/Hosp Course - s/p sepsis - h/o GIB - ascites, s/p paracentesis on 11/14/2016; not consistent with SBP. Took empiric cefepime (11/12/16-11/17/16) and metronidazole (10/14/2016-11/17/16) - near complete collapse of RLL with LLL atelectasis, pulmonary edema - h/o severe C diff colitis in 2016 - ESRD on HD - VDRF with trach - G tube dependence - PVD - s/p L BKA - abdominal pain - Abd X-ray 11/16/16 shows no e/o obstruction - RLE pain - venous doppler 11/19/16 negative for DVT and right knee x-ray 11/21/16 negative for fracture - MRSA nasal colonization, completed mupirocin for 10 days - DNR recommendations - monitor off antibiotics - agree with DC planning (awaiting placement) - will sign off; please re-consult as needed; d/w SARAN Schmitt - Above d/w Dr. Alexander Problems: Consultation Date/Type/Reason Admit Date/Time Nov 08, 2016 at 10:56 Initial Consult Date 11/09/16 Type of Consultation: Infectious Disease Referring Provider: GRACIE KATHLEEN 24 HR Interval Summary Free Text/Dictation Afebrile; Clinically unchanged; c/o throat pain after frequent suctioning; difficult sub-acute placement per d/w JUAN MIGUEL Meeks. C/o throat pain, same abd pain and RLE pain. ROS limited d/t pt being non- verbal. Exam/Review of Systems Vital Signs Vitals Vital Signs Date Time Temp Pulse Resp B/P Pulse Ox O2 Delivery O2 Flow Rate FiO2 11/29/16 12:20 92 11/29/16 11:24 98.2 19 94/53 95 11/29/16 11:10 30 11/27/16 04:51 Mechanical Ventilator Trach Collar Intake and Output 11/28/16 11/28/16 11/29/16 15:00 23:00 07:00 Intake Total 600 ml 700 ml 640 ml Output Total 2600 ml Balance -2000 ml 700 ml 640 ml Exam Constitutional: alert, non-verbal (mouths out words), obese, oriented, well developed Psych: anxiety Head: atraumatic, normocephalic Neck: other (trach midline), supple Respiratory: diminished breath sounds, respirations (unlabored) Cardiovascular: nl pulses, regular rate and rhythm Gastrointestinal: other (GT with TF intact), soft, tender (subjective diffuse TTP; no rebound tenderness) Extremities: edema (RLE with TTP), other (Left BKA) Skin: nl turgor, other (wounds - see nurses notes for details) Results Result Diagram: 11/29/16 0600 11/29/16 0600 Results 24 hrs Laboratory Tests Test 11/28/16 17:23 11/28/16 21:33 11/29/16 01:22 11/29/16 04:58 Bedside Glucose 125 96 115 147 Test 11/29/16 06:00 11/29/16 08:06 11/29/16 11:57 White Blood Count 8.1 Red Blood Count 3.00 L Hemoglobin 9.3 L Hematocrit 29.9 L Mean Corpuscular Volume 99.7 Mean Corpuscular Hemoglobin 31.0 Mean Corpuscular Hemoglobin Concent 31.1 L Red Cell Distribution Width 18.6 H Platelet Count 236 Mean Platelet Volume 9.1 Neutrophils % 72.1 Lymphocytes % 11.3 L Monocytes % 13.4 H Eosinophils % 2.3 Basophils % 0.5 Nucleated Red Blood Cells % 0.0 Neutrophils # 5.8 Lymphocytes # 0.9 Monocytes # 1.1 H Eosinophils # 0.2 Basophils # 0.0 Nucleated Red Blood Cells # 0.0 Sodium Level 138 Potassium Level 4.0 Chloride Level 98 Carbon Dioxide Level 28 Anion Gap 16 Blood Urea Nitrogen 41 #H Creatinine 2.67 H Glucose Level 139 Calcium Level 7.4 L Bedside Glucose 184 141 Medications Medications Current Medications Lidocaine (Lidoderm) 1 patch DAILY TD Last administered on 11/27/16 08:56; Admin Dose 1 PATCH; Start 11/08/16 at 15:30 Acetaminophen (Tylenol Liquid) 325 mg Q4H PRN GTB MILD PAIN LEVEL 1-3 Last administered on 11/17/16 02:37; Admin Dose 325 MG; Start 11/08/16 at 15:30 Acetaminophen (Tylenol Liquid) 650 mg Q4H PRN GTB MODERATE PAIN LEVEL 4-6 Last administered on 11/21/16 20:54; Admin Dose 650 MG; Start 11/08/16 at 15:30 Ascorbic Acid (Vitamin C) 500 mg DAILY GTB Last administered on 11/29/16 09:48 ; Admin Dose 500 MG; Start 11/09/16 at 09:00 Atorvastatin Calcium (Lipitor) 40 mg QHS GTB Last administered on 11/28/16 21: 32; Admin Dose 40 MG; Start 11/08/16 at 21:00 Carvedilol (Coreg) 3.125 mg BID GTB Last administered on 11/26/16 08:53; Admin Dose 3.125 MG; Start 11/08/16 at 21:00 Duloxetine HCl (Cymbalta) 30 mg DAILY GTB Last administered on 11/29/16 09:48 ; Admin Dose 30 MG; Start 11/09/16 at 09:00 Fluticasone Propionate (Flonase 0.05% Nasal) 1 spray BID NASAL Last administered on 11/29/16 09:48; Admin Dose 1 SPRAY; Start 11/08/16 at 21:00 Lactobacillus Acidoph/Bulgaricus (Floranex) 1 tab DAILY GTB Last administered on 11/29/16 09:48; Admin Dose 1 TAB; Start 11/09/16 at 09:00 Sildenafil Citrate (Revatio) 20 mg BID GTB Last administered on 11/27/16 08:42 ; Admin Dose 20 MG; Start 11/08/16 at 21:00 Vitamin B Complex/ Vitamin C (Berocca) 1 cap DAILY GTB Last administered on 09:48; Admin Dose 1 CAP; Start 11/09/16 at 09:00 Miscellaneous Information 1 ea NOTE XX ; Start 11/08/16 at 16:00 Glucose (Glutose) 15 gm Q15M PRN PO DECREASED GLUCOSE; Start 11/08/16 at 16:00 Glucose (Glutose) 22.5 gm Q15M PRN PO DECREASED GLUCOSE; Start 11/08/16 at 16: 00 Dextrose (D50w Syringe) 25 ml Q15M PRN IV DECREASED GLUCOSE; Start 11/08/16 at 16:00 Dextrose (D50w Syringe) 50 ml Q15M PRN IV DECREASED GLUCOSE; Start 11/08/16 at 16:00 Glucagon (Glucagen) 1 mg Q15M PRN IM DECREASED GLUCOSE; Start 11/08/16 at 16:00 Glucose (Glutose) 15 gm Q15M PRN BUCCAL DECREASED GLUCOSE; Start 11/08/16 at 16 :00 Acetaminophen/ Hydrocodone Bitart ([place] (5/325)) 1 tab Q4H PRN PO SEVERE PAIN 7-10 Last administered on 11/27/16 19:52; Admin Dose 1 TAB; Start 11/08/16 at 21:00 Morphine Sulfate (morphine) 2 mg Q4H PRN IV PAIN LEVEL 7-10 Last administered on 11/29/16 10:38; Admin Dose 2 MG; Start 11/09/16 at 11:00 Collagenase (Santyl) 1 applic DAILY TOP Last administered on 11/29/16 09:49; Admin Dose 1 APPLIC; Start 11/09/16 at 16:00 Lorazepam (Ativan) 1 mg Q6H PRN IV AGITATION/ANXIETY Last administered on 21:35; Admin Dose 1 MG; Start 11/09/16 at 20:30 Pantoprazole (Protonix Iv) 40 mg BID@06,18 IV Last administered on 11/29/16 05 :46; Admin Dose 40 MG; Start 11/10/16 at 06:00 Sodium Phosphate (Neutra-Phos) 250 mg BID GTB Last administered on 11/29/16 09 :48; Admin Dose 250 MG; Start 11/10/16 at 09:00 Calcium/Vitamin D (Oyster Shell/ Vit-D (500/200)) 1 tab DAILY GTB Last administered on 11/29/16 09:48; Admin Dose 1 TAB; Start 11/12/16 at 11:00 Prochlorperazine (Compazine) 5 mg Q6H PRN GTB NAUSEA AND/OR VOMITING Last administered on 11/28/16 10:57; Admin Dose 5 MG; Start 11/17/16 at 17:30 Insulin Glargine (Lantus) 16 unit DAILY SC Last administered on 11/29/16 10:01 ; Admin Dose 16 UNIT; Start 11/24/16 at 09:00 Diagnostic Test (Pha) (Accu-Chek) 1 ea 02 XX Last administered on 11/25/16 02: 06; Admin Dose 1 EA; Start 11/24/16 at 02:00 Insulin Aspart (Novolog Insulin Pen) NOVOLOG *MILD* ALGORITHM Q4 SC Last administered on 11/29/16t 12:51; Admin Dose 1 UNIT; Start 11/23/16 at 17:00 JERICHO CRABTREE NP Nov 29, 2016 13:12
[2016-11-29] MEDS: LORAZEPAM 2 MG INJ IV PRN (15:22)
[2016-11-29] MEDS: LANSOPRAZOLE 30 MG CAP GTB SCH (17:20)
[2016-11-29] MEDS: DEXTROSE 50% 50 ML SYRINGE IV PRN (21:18)
[2016-11-30] VITALS (29 sets, daily range): BP systolic 83–130; BP diastolic 40–67; PULSE 70–117; RESP 15–28
[2016-11-30] MEDS: FLUTICASONE 0.05% 16 GM NAS SPRAY NASAL SCH ×3 (00:19→20:48)
[2016-11-30] MEDS: NEUTRA-PHOS 250 MG PACKET GTB SCH ×3 (00:20→20:49)
[2016-11-30] MEDS: ATORVASTATIN 40 MG TAB GTB SCH ×2 (00:21→20:47)
[2016-11-30] MEDS: SILDENAFIL 20 MG TAB GTB SCH ×3 (00:22→20:47)
[2016-11-30] MEDS: DEXTROSE 50% 50 ML SYRINGE IV PRN ×2 (00:50→19:05)
[2016-11-30] MEDS: INSULIN ASPART [NOVOLOG] 3 ML PEN SC SCH ×6 (01:00→20:49)
[2016-11-30] MEDS: ACCU-CHEK XX SCH (02:14)
[2016-11-30] MEDS: morphine 2 MG INJ IV PRN ×3 (03:16→17:27)
[2016-11-30] MEDS: HYDROCODONE/APAP (5/325) TAB PO PRN ×3 (04:49→20:47)
[2016-11-30] MEDS: LORAZEPAM 2 MG INJ IV PRN ×2 (04:49→20:47)
[2016-11-30] MEDS: LANSOPRAZOLE 30 MG CAP GTB SCH ×2 (06:42→17:27)
[2016-11-30 07:09] LABS: ADD SCAN DIFF NO
[2016-11-30 07:19] LABS: BASOPHILS % 0.6 % (0.0-2.0); EOSINOPHILS # 0.2 10^3/ul (0.0-0.5); EOSINOPHILS % 2.4 % (0.0-7.0); HEMATOCRIT 32.1 % (42.0-52.0); LYMPHOCYTES # 0.8 10^3/ul (0.8-2.9); LYMPHOCYTES % 11.8 % (15.0-51.0); MEAN CORPUSCULAR HGB CONC 31.2 g/dl (32.0-37.0); MEAN CORPUSCULAR VOLUME 99.4 fl (82.0-101.0); NEUTROPHIL # 4.7 10^3/ul (1.6-7.5); NEUTROPHILS % 69.6 % (39.0-77.0); PLATELET COUNT 201 10^3/UL (140-415); RED BLOOD COUNT 3.23 10^6/ul (4.70-6.10); RED CELL DISTRIBUTION WIDTH 18.4 % (11.5-14.5); WHITE BLOOD COUNT 6.7 10^3/ul (4.8-10.8)
[2016-11-30 07:55] LABS: CALCIUM 7.3 mg/dl (8.4-10.2); CREATININE 3.02 mg/dl (0.61-1.24); POTASSIUM 4.2 mmol/L (3.5-5.1)
[2016-11-30] MEDS: ASCORBIC ACID 500 MG TAB GTB SCH (08:58)
[2016-11-30] MEDS: LACTOBACILLUS CHEW TAB GTB SCH (08:59)
[2016-11-30] MEDS: DULOXETINE 30 MG CAP DR GTB SCH (08:59)
[2016-11-30] MEDS: CALCIUM/VITAMIN D (500/200) TAB GTB SCH (08:59)
[2016-11-30] MEDS: LIDOCAINE 5% PATCH TD SCH (09:05)
[2016-11-30] MEDS: COLLAGENASE 30 GM TUBE TOP SCH (09:06)
--- NOTE | 2016-11-30 09:57 | PN ---
DATE: 11/30/2016 SUBJECTIVE: The patient is stable. No acute events overnight. The patient is scheduled for hemodi alysis today. OBJECTIVE: VITAL SIGNS: Blood pressure 121/64, respirations 20, pulse 90, temperature 97.9. HEENT: Head is normocephalic. NECK: Supple. HEART: Regular rate. LUNGS: Show diminished breath sounds at the base. ABDOMEN: Soft, nontender to palpation. Positive PEG. EXTREMITIES: Negative for clubbing or cyanosis. No edema. 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 DERMATOLOGIC: No rashes. MUSCULOSKELETAL: Have no joint effusion. NEUROLOGIC: No change in exam. MEDICATIONS: The patient's medications have been reviewed. LABORATORY DATA: Shows white count 6.7, hemoglobin 10.0, hematocrit 32.1, platelet count is 201. S odium 136, potassium 4.2, chloride 100, BUN 49, creatinine 3.02. ASSESSMENT AND PLAN: 1. End-stage renal disease. The patient is scheduled for hemodialysis today. Will dialyze for 3 h ours on a 3 K bath, calcium 2.5. Will ultrafiltrate as tolerated. 2. Anemia. Hemoglobin levels have been stable. Continue Epogen. 3. Mineral bone disorder. Continue to monitor calcium and phosphorus levels. 4. Sepsis secondary to pneumonia. The patient has completed an antibiotic course. 5. Ventilator dependent respiratory failure. Vent settings have been reviewed. Continue to monito r. Follow up with pulmonary. 6. Dysphagia. Status post PEG tube. Continue tube feeding. 7. Coronary artery disease. Continue the current medical management. 8. Diabetes. Continue Accu-Cheks and insulin sliding scale. 9. Congestive heart failure. The patient is clinically improving. Continue the current medical ma nagement. 10. Sacral decubitus wound. Continue wound care. Dictated By: SARAHI RINALDI/OLESYA Conf#: [id number] DID#: [id number]
[2016-11-30] MEDS: VITAMIN B COMPLEX/VIT C CAP GTB SCH (11:32)
--- NOTE | 2016-11-30 12:19 | CONS ---
Date/Time of Note Date/Time of Note DATE: 11/30/16 TIME: 12:17 Assessment/Plan Assessment/Plan Additional Assessment/Plan Ventilator settings; AC of 14, tidal volume 500, PEEP of 5, 30% FiO2. Assessment recommendations; 1. Patient with a history of chronic respiratory failure ventilator dependent admitted for UTI and sepsis doing well overall. 2. Dementia. 3. Chronic renal failure, on hemodialysis. Continue current supportive care. Patient can be discharged to the assisted. Consultation Date/Type/Reason Admit Date/Time Nov 08, 2016 at 10:56 Initial Consult Date 11/08/16 Type of Consultation: Pulmonary Referring Provider: GRACIE KATHLEEN 24 HR Interval Summary Free Text/Dictation Patient condition remains unchanged. Remains awake and alert. Remains hemodynamically stable. General exam; elderly male, on ventilator via tracheostomy currently in no distress awake and alert. Exam/Review of Systems Vital Signs Vitals Vital Signs Date Time Temp Pulse Resp B/P Pulse Ox O2 Delivery O2 Flow Rate FiO2 11/30/16 11:15 110 11/30/16 11:15 15 96 30 11/30/16 11:00 97.8 97/55 11/27/16 04:51 Mechanical Ventilator Trach Collar Intake and Output 11/29/16 11/29/16 11/30/16 15:00 23:00 07:00 Intake Total 510 ml 440 ml Balance 510 ml 440 ml Exam HEENT exam is; supple neck, no JVD. No lymphadenopathy. Midline trachea. No thyromegaly. Tracheostomy in place with clean insertion site. Pupils are small bilaterally. Chest examination AR: Clear to auscultation. S1-S2 audible, no murmurs. Regular rhythm. Abdomen examination; soft, nondistended. No organomegaly. Nontender. G-tube in place. Bowel sounds audible. Extremity exam is; no peripheral edema. Patient has a well-healed left below- knee amputation stump. SLAG MIXER exam is; patient is awake alert follows simple commands and moves both upper as well as right lower extremities on command. Results Result Diagram: 11/30/16 0610 11/30/16 0610 Results 24 hrs Laboratory Tests Test 11/29/16 17:19 11/29/16 21:09 11/29/16 21:41 11/29/16 22:01 Bedside Glucose 76 57 L 80 100 Test 11/30/16 00:38 11/30/16 01:55 11/30/16 02:12 11/30/16 05:35 Bedside Glucose 68 L 99 103 96 Test 11/30/16 06:10 11/30/16 09:04 White Blood Count 6.7 Red Blood Count 3.23 L Hemoglobin 10.0 L Hematocrit 32.1 L Mean Corpuscular Volume 99.4 Mean Corpuscular Hemoglobin 31.0 Mean Corpuscular Hemoglobin Concent 31.2 L Red Cell Distribution Width 18.4 H Platelet Count 201 Mean Platelet Volume 9.0 Neutrophils % 69.6 Lymphocytes % 11.8 L Monocytes % 15.0 H Eosinophils % 2.4 Basophils % 0.6 Nucleated Red Blood Cells % 0.0 Neutrophils # 4.7 Lymphocytes # 0.8 Monocytes # 1.0 H Eosinophils # 0.2 Basophils # 0.0 Nucleated Red Blood Cells # 0.0 Sodium Level 136 Potassium Level 4.2 Chloride Level 100 Carbon Dioxide Level 28 Anion Gap 12 Blood Urea Nitrogen 49 H Creatinine 3.02 H Glucose Level 97 # Calcium Level 7.3 L Bedside Glucose 90 Medications Medications Current Medications Lidocaine (Lidoderm) 1 patch DAILY TD Last administered on 11/30/16 09:05; Admin Dose 1 PATCH; Start 11/08/16 at 15:30 Acetaminophen (Tylenol Liquid) 325 mg Q4H PRN GTB MILD PAIN LEVEL 1-3 Last administered on 11/17/16 02:37; Admin Dose 325 MG; Start 11/08/16 at 15:30 Acetaminophen (Tylenol Liquid) 650 mg Q4H PRN GTB MODERATE PAIN LEVEL 4-6 Last administered on 11/21/16 20:54; Admin Dose 650 MG; Start 11/08/16 at 15:30 Ascorbic Acid (Vitamin C) 500 mg DAILY GTB Last administered on 11/30/16 08:58 ; Admin Dose 500 MG; Start 11/09/16 at 09:00 Atorvastatin Calcium (Lipitor) 40 mg QHS GTB Last administered on 11/30/16 00: 21; Admin Dose 40 MG; Start 11/08/16 at 21:00 Carvedilol (Coreg) 3.125 mg BID GTB Last administered on 11/26/16 08:53; Admin Dose 3.125 MG; Start 11/08/16 at 21:00 Duloxetine HCl (Cymbalta) 30 mg DAILY GTB Last administered on 11/30/16 08:59 ; Admin Dose 30 MG; Start 11/09/16 at 09:00 Fluticasone Propionate (Flonase 0.05% Nasal) 1 spray BID NASAL Last administered on 11/30/16 09:00; Admin Dose 1 SPRAY; Start 11/08/16 at 21:00 Lactobacillus Acidoph/Bulgaricus (Floranex) 1 tab DAILY GTB Last administered on 11/30/16 08:59; Admin Dose 1 TAB; Start 11/09/16 at 09:00 Sildenafil Citrate (Revatio) 20 mg BID GTB Last administered on 11/30/16 00:22 ; Admin Dose 20 MG; Start 11/08/16 at 21:00 Vitamin B Complex/ Vitamin C (Berocca) 1 cap DAILY GTB Last administered on 11:32; Admin Dose 1 CAP; Start 11/09/16 at 09:00 Miscellaneous Information 1 ea NOTE XX ; Start 11/08/16 at 16:00 Glucose (Glutose) 15 gm Q15M PRN PO DECREASED GLUCOSE; Start 11/08/16 at 16:00 Glucose (Glutose) 22.5 gm Q15M PRN PO DECREASED GLUCOSE; Start 11/08/16 at 16: 00 Dextrose (D50w Syringe) 25 ml Q15M PRN IV DECREASED GLUCOSE Last administered on 11/30/16 00:50; Admin Dose 25 ML; Start 11/08/16 at 16:00 Dextrose (D50w Syringe) 50 ml Q15M PRN IV DECREASED GLUCOSE; Start 11/08/16 at 16:00 Glucagon (Glucagen) 1 mg Q15M PRN IM DECREASED GLUCOSE; Start 11/08/16 at 16:00 Glucose (Glutose) 15 gm Q15M PRN BUCCAL DECREASED GLUCOSE; Start 11/08/16 at 16 :00 Acetaminophen/ Hydrocodone Bitart ([place] (5/325)) 1 tab Q4H PRN PO SEVERE PAIN 7-10 Last administered on 11/30/16 11:33; Admin Dose 1 TAB; Start 11/08/16 at 21:00 Morphine Sulfate (morphine) 2 mg Q4H PRN IV PAIN LEVEL 7-10 Last administered on 11/30/16 08:58; Admin Dose 2 MG; Start 11/09/16 at 11:00 Collagenase (Santyl) 1 applic DAILY TOP Last administered on 11/30/16 09:06; Admin Dose 1 APPLIC; Start 11/09/16 at 16:00 Lorazepam (Ativan) 1 mg Q6H PRN IV AGITATION/ANXIETY Last administered on 04:49; Admin Dose 1 MG; Start 11/09/16 at 20:30 Sodium Phosphate (Neutra-Phos) 250 mg BID GTB Last administered on 11/30/16 08 :59; Admin Dose 250 MG; Start 11/10/16 at 09:00 Calcium/Vitamin D (Oyster Shell/ Vit-D (500/200)) 1 tab DAILY GTB Last administered on 11/30/16 08:59; Admin Dose 1 TAB; Start 11/12/16 at 11:00 Prochlorperazine (Compazine) 5 mg Q6H PRN GTB NAUSEA AND/OR VOMITING Last administered on 11/28/16 10:57; Admin Dose 5 MG; Start 11/17/16 at 17:30 Insulin Glargine (Lantus) 16 unit DAILY SC Last administered on 11/29/16 10:01 ; Admin Dose 16 UNIT; Start 11/24/16 at 09:00 Diagnostic Test (Pha) (Accu-Chek) 1 ea 02 XX Last administered on 11/30/16 02: 14; Admin Dose 1 EA; Start 11/24/16 at 02:00 Insulin Aspart (Novolog Insulin Pen) NOVOLOG *MILD* ALGORITHM Q4 SC Last administered on 11/29/16 12:51; Admin Dose 1 UNIT; Start 11/23/16 at 17:00 Lansoprazole (Prevacid) 30 mg BID@,18 GTB Last administered on 11/30/16 06: 42; Admin Dose 30 MG; Start 11/29/16 at 18:00 Influenza Virus Vaccine (Fluzone) 0.5 ml ONCE ONCE IM* ; Start 12/01/16 at 11:00 ; Stop 12/01/16 at 11:01 ELVI BLANK Nov 30, 2016 12:19
[2016-11-30] MEDS: INSULIN GLARGINE [LANtus] 3 ML PEN SC SCH (12:33)
--- NOTE | 2016-11-30 15:42 | PN ---
Date/Time of Note Date/Time of Note DATE: 11/30/16 TIME: 15:42 Assessment/Plan VTE Prophylaxis VTE Prophylaxis Intervention: SCD's Lines/Catheters [facility]from [facility] Saline Lock Urinary Cath still in place: No Assessment/Plan Assessment/Plan Paroxysmal atrial tachycardia Possible GI bleed Respiratory failure status post tracheostomy Diastolic congestive heart failure End-stage renal disease on hemodialysis CAD with history of PCI Diabetes Peripheral arterial disease with history of amputation Pulmonary hypertension Hypotension, improved -Blood pressure trend improving, holding parameters on coreg and sildenafil. -fluid management via hemodialysis as per our nephrology colleagues -no new cv reccomendations Subjective 24 Hr Interval Summary Free Text/Dictation the patient itth no change Exam/Review of Systems Vital Signs Vitals Vital Signs Date Time Temp Pulse Resp B/P Pulse Ox O2 Delivery O2 Flow Rate FiO2 11/30/16 15:38 97.9 95 20 83/45 96 11/30/16 13:25 30 11/27/16 04:51 Mechanical Ventilator Trach Collar Intake and Output 11/29/16 11/29/16 11/30/16 15:00 23:00 07:00 Intake Total 510 ml 440 ml Balance 510 ml 440 ml Results Result Diagram: 11/30/16 0610 11/30/16 0610 Results 24 hrs Laboratory Tests Test 11/29/16 17:19 11/29/16 21:09 11/29/16 21:41 11/29/16 22:01 Bedside Glucose 76 57 L 80 100 Test 11/30/16 00:38 11/30/16 01:55 11/30/16 02:12 11/30/16 05:35 Bedside Glucose 68 L 99 103 96 Test 11/30/16 06:10 11/30/16 09:04 11/30/16 12:30 White Blood Count 6.7 Red Blood Count 3.23 L Hemoglobin 10.0 L Hematocrit 32.1 L Mean Corpuscular Volume 99.4 Mean Corpuscular Hemoglobin 31.0 Mean Corpuscular Hemoglobin Concent 31.2 L Red Cell Distribution Width 18.4 H Platelet Count 201 Mean Platelet Volume 9.0 Neutrophils % 69.6 Lymphocytes % 11.8 L Monocytes % 15.0 H Eosinophils % 2.4 Basophils % 0.6 Nucleated Red Blood Cells % 0.0 Neutrophils # 4.7 Lymphocytes # 0.8 Monocytes # 1.0 H Eosinophils # 0.2 Basophils # 0.0 Nucleated Red Blood Cells # 0.0 Sodium Level 136 Potassium Level 4.2 Chloride Level 100 Carbon Dioxide Level 28 Anion Gap 12 Blood Urea Nitrogen 49 H Creatinine 3.02 H Glucose Level 97 # Calcium Level 7.3 L Bedside Glucose 90 171 Medications Medications Current Medications Lidocaine (Lidoderm) 1 patch DAILY TD Last administered on 11/30/16 09:05; Admin Dose 1 PATCH; Start 11/08/16 at 15:30 Acetaminophen (Tylenol Liquid) 325 mg Q4H PRN GTB MILD PAIN LEVEL 1-3 Last administered on 11/17/16 02:37; Admin Dose 325 MG; Start 11/08/16 at 15:30 Acetaminophen (Tylenol Liquid) 650 mg Q4H PRN GTB MODERATE PAIN LEVEL 4-6 Last administered on 11/21/16 20:54; Admin Dose 650 MG; Start 11/08/16 at 15:30 Ascorbic Acid (Vitamin C) 500 mg DAILY GTB Last administered on 11/30/16 08:58 ; Admin Dose 500 MG; Start 11/09/16 at 09:00 Atorvastatin Calcium (Lipitor) 40 mg QHS GTB Last administered on 11/30/16 00: 21; Admin Dose 40 MG; Start 11/08/16 at 21:00 Carvedilol (Coreg) 3.125 mg BID GTB Last administered on 11/26/16 08:53; Admin Dose 3.125 MG; Start 11/08/16 at 21:00 Duloxetine HCl (Cymbalta) 30 mg DAILY GTB Last administered on 11/30/16 08:59 ; Admin Dose 30 MG; Start 11/09/16 at 09:00 Fluticasone Propionate (Flonase 0.05% Nasal) 1 spray BID NASAL Last administered on 11/30/16 09:00; Admin Dose 1 SPRAY; Start 11/08/16 at 21:00 Lactobacillus Acidoph/Bulgaricus (Floranex) 1 tab DAILY GTB Last administered on 11/30/16 08:59; Admin Dose 1 TAB; Start 11/09/16 at 09:00 Sildenafil Citrate (Revatio) 20 mg BID GTB Last administered on 11/30/16 00:22 ; Admin Dose 20 MG; Start 11/08/16 at 21:00 Vitamin B Complex/ Vitamin C (Berocca) 1 cap DAILY GTB Last administered on 11:32; Admin Dose 1 CAP; Start 11/09/16 at 09:00 Miscellaneous Information 1 ea NOTE XX ; Start 11/08/16 at 16:00 Glucose (Glutose) 15 gm Q15M PRN PO DECREASED GLUCOSE; Start 11/08/16 at 16:00 Glucose (Glutose) 22.5 gm Q15M PRN PO DECREASED GLUCOSE; Start 11/08/16 at 16: 00 Dextrose (D50w Syringe) 25 ml Q15M PRN IV DECREASED GLUCOSE Last administered on 11/30/16 00:50; Admin Dose 25 ML; Start 11/08/16 at 16:00 Dextrose (D50w Syringe) 50 ml Q15M PRN IV DECREASED GLUCOSE; Start 11/08/16 at 16:00 Glucagon (Glucagen) 1 mg Q15M PRN IM DECREASED GLUCOSE; Start 11/08/16 at 16:00 Glucose (Glutose) 15 gm Q15M PRN BUCCAL DECREASED GLUCOSE; Start 11/08/16 at 16 :00 Acetaminophen/ Hydrocodone Bitart ([place] (5/325)) 1 tab Q4H PRN PO SEVERE PAIN 7-10 Last administered on 11/30/16 11:33; Admin Dose 1 TAB; Start 11/08/16 at 21:00 Morphine Sulfate (morphine) 2 mg Q4H PRN IV PAIN LEVEL 7-10 Last administered on 11/30/16 08:58; Admin Dose 2 MG; Start 11/09/16 at 11:00 Collagenase (Santyl) 1 applic DAILY TOP Last administered on 11/30/16 09:06; Admin Dose 1 APPLIC; Start 11/09/16 at 16:00 Lorazepam (Ativan) 1 mg Q6H PRN IV AGITATION/ANXIETY Last administered on 04:49; Admin Dose 1 MG; Start 11/09/16 at 20:30 Sodium Phosphate (Neutra-Phos) 250 mg BID GTB Last administered on 11/30/16 08 :59; Admin Dose 250 MG; Start 11/10/16 at 09:00 Calcium/Vitamin D (Oyster Shell/ Vit-D (500/200)) 1 tab DAILY GTB Last administered on 11/30/16 08:59; Admin Dose 1 TAB; Start 11/12/16 at 11:00 Prochlorperazine (Compazine) 5 mg Q6H PRN GTB NAUSEA AND/OR VOMITING Last administered on 11/28/16 10:57; Admin Dose 5 MG; Start 11/17/16 at 17:30 Insulin Glargine (Lantus) 16 unit DAILY SC Last administered on 11/30/16 12:33 ; Admin Dose 16 UNIT; Start 11/24/16 at 09:00 Diagnostic Test (Pha) (Accu-Chek) 1 ea 02 XX Last administered on 11/30/16 02: 14; Admin Dose 1 EA; Start 11/24/16 at 02:00 Insulin Aspart (Novolog Insulin Pen) NOVOLOG *MILD* ALGORITHM Q4 SC Last administered on 11/30/16 12:34; Admin Dose 1 UNIT; Start 11/23/16 at 17:00 Lansoprazole (Prevacid) 30 mg BID@06,18 GTB Last administered on 11/30/16 06: 42; Admin Dose 30 MG; Start 11/29/16 at 18:00 Influenza Virus Vaccine (Fluzone) 0.5 ml ONCE ONCE IM* ; Start 12/01/16 at 11:00 ; Stop 12/01/16 at 11:01 MARIANA [place] MD Nov 30, 2016 15:42
--- NOTE | 2016-11-30 16:29 | PN ---
Date/Time of Note Date/Time of Note DATE: 11/30/16 TIME: 16:28 Assessment/Plan Lines/Catheters IV Catheter Type (from Nrs): Saline Lock Urinary Cath still in place: No Assessment/Plan Assessment/Plan - Esophagitis per EGD. Continue Protonix Dr. Hernandez is following in gastroenterology consultation. - Anemia of chronic disease, on Epogen, continue to monitor hemoglobin and hematocrit, transfuse as needed. - Ascites, SBP ruled out, Status post paracentesis 11/14,ascitic fluid culture negative. - Systemic inflammatory response syndrome with leukocytosis, patient is followed by Dr. Benjamin deluna in infection disease consultation. - End-stage renal disease, hemodialysis dependent. Continue hemodialysis per nephrology. - Chronic respiratory failure with tracheostomy. Dr. Sahu is following in pulmonology consultation. - Coronary artery disease with history of PCI. - Diastolic congestive heart failure - Pulmonary hypertension - Peripheral vascular disease, status post left BKA. - Diabetes mellitus type 2, continue NovoLog per sliding scale. - Sacral decub present on admission. Continue current wound care. Subjective 24 Hr Interval Summary Constitutional: requiring O2 Respiratory: shortness of breath Exam/Review of Systems Vital Signs Vitals Vital Signs Date Time Temp Pulse Resp B/P Pulse Ox O2 Delivery O2 Flow Rate FiO2 11/30/16 16:17 109 11/30/16 15:38 97.9 20 83/45 96 11/30/16 15:10 30 11/27/16 04:51 Mechanical Ventilator Trach Collar Intake and Output 11/29/16 11/29/16 11/30/16 15:00 23:00 07:00 Intake Total 510 ml 440 ml Balance 510 ml 440 ml Exam Constitutional: alert Eyes: EOMI, nl sclera ENMT: nl external ears & nose Neck: non-tender Respiratory: diminished breath sounds Cardiovascular: nl pulses Gastrointestinal: non-tender, other, soft Musculoskeletal: muscle weakness Extremities: normal pulses, other (left BKA) Skin: other Lymph: nontender Results Result Diagram: 11/30/16 0610 11/30/16 0610 Results 24 hrs Laboratory Tests Test 11/29/16 17:19 11/29/16 21:09 11/29/16 21:41 11/29/16 22:01 Bedside Glucose 76 57 L 80 100 Test 11/30/16 00:38 11/30/16 01:55 11/30/16 02:12 11/30/16 05:35 Bedside Glucose 68 L 99 103 96 Test 11/30/16 06:10 11/30/16 09:04 11/30/16 12:30 White Blood Count 6.7 Red Blood Count 3.23 L Hemoglobin 10.0 L Hematocrit 32.1 L Mean Corpuscular Volume 99.4 Mean Corpuscular Hemoglobin 31.0 Mean Corpuscular Hemoglobin Concent 31.2 L Red Cell Distribution Width 18.4 H Platelet Count 201 Mean Platelet Volume 9.0 Neutrophils % 69.6 Lymphocytes % 11.8 L Monocytes % 15.0 H Eosinophils % 2.4 Basophils % 0.6 Nucleated Red Blood Cells % 0.0 Neutrophils # 4.7 Lymphocytes # 0.8 Monocytes # 1.0 H Eosinophils # 0.2 Basophils # 0.0 Nucleated Red Blood Cells # 0.0 Sodium Level 136 Potassium Level 4.2 Chloride Level 100 Carbon Dioxide Level 28 Anion Gap 12 Blood Urea Nitrogen 49 H Creatinine 3.02 H Glucose Level 97 # Calcium Level 7.3 L Bedside Glucose 90 171 Medications Medications Current Medications Lidocaine (Lidoderm) 1 patch DAILY TD Last administered on 11/30/16 09:05; Admin Dose 1 PATCH; Start 11/08/16 at 15:30 Acetaminophen (Tylenol Liquid) 325 mg Q4H PRN GTB MILD PAIN LEVEL 1-3 Last administered on 11/17/16 02:37; Admin Dose 325 MG; Start 11/08/16 at 15:30 Acetaminophen (Tylenol Liquid) 650 mg Q4H PRN GTB MODERATE PAIN LEVEL 4-6 Last administered on 11/21/16 20:54; Admin Dose 650 MG; Start 11/08/16 at 15:30 Ascorbic Acid (Vitamin C) 500 mg DAILY GTB Last administered on 11/30/16 08:58 ; Admin Dose 500 MG; Start 11/09/16 at 09:00 Atorvastatin Calcium (Lipitor) 40 mg QHS GTB Last administered on 11/30/16 00: 21; Admin Dose 40 MG; Start 11/08/16 at 21:00 Carvedilol (Coreg) 3.125 mg BID GTB Last administered on 11/26/16 08:53; Admin Dose 3.125 MG; Start 11/08/16 at 21:00 Duloxetine HCl (Cymbalta) 30 mg DAILY GTB Last administered on 11/30/16 08:59 ; Admin Dose 30 MG; Start 11/09/16 at 09:00 Fluticasone Propionate (Flonase 0.05% Nasal) 1 spray BID NASAL Last administered on 11/30/16 09:00; Admin Dose 1 SPRAY; Start 11/08/16 at 21:00 Lactobacillus Acidoph/Bulgaricus (Floranex) 1 tab DAILY GTB Last administered on 11/30/16 08:59; Admin Dose 1 TAB; Start 11/09/16 at 09:00 Sildenafil Citrate (Revatio) 20 mg BID GTB Last administered on 11/30/16 00:22 ; Admin Dose 20 MG; Start 11/08/16 at 21:00 Vitamin B Complex/ Vitamin C (Berocca) 1 cap DAILY GTB Last administered on 11:32; Admin Dose 1 CAP; Start 11/09/16 at 09:00 Miscellaneous Information 1 ea NOTE XX ; Start 11/08/16 at 16:00 Glucose (Glutose) 15 gm Q15M PRN PO DECREASED GLUCOSE; Start 11/08/16 at 16:00 Glucose (Glutose) 22.5 gm Q15M PRN PO DECREASED GLUCOSE; Start 11/08/16 at 16: 00 Dextrose (D50w Syringe) 25 ml Q15M PRN IV DECREASED GLUCOSE Last administered on 11/30/16 00:50; Admin Dose 25 ML; Start 11/08/16 at 16:00 Dextrose (D50w Syringe) 50 ml Q15M PRN IV DECREASED GLUCOSE; Start 11/08/16 at 16:00 Glucagon (Glucagen) 1 mg Q15M PRN IM DECREASED GLUCOSE; Start 11/08/16 at 16:00 Glucose (Glutose) 15 gm Q15M PRN BUCCAL DECREASED GLUCOSE; Start 11/08/16 at 16 :00 Acetaminophen/ Hydrocodone Bitart ([place] (5/325)) 1 tab Q4H PRN PO SEVERE PAIN 7-10 Last administered on 11/30/16 11:33; Admin Dose 1 TAB; Start 11/08/16 at 21:00 Morphine Sulfate (morphine) 2 mg Q4H PRN IV PAIN LEVEL 7-10 Last administered on 11/30/16 08:58; Admin Dose 2 MG; Start 11/09/16 at 11:00 Collagenase (Santyl) 1 applic DAILY TOP Last administered on 11/30/16 09:06; Admin Dose 1 APPLIC; Start 11/09/16 at 16:00 Lorazepam (Ativan) 1 mg Q6H PRN IV AGITATION/ANXIETY Last administered on 04:49; Admin Dose 1 MG; Start 11/09/16 at 20:30 Sodium Phosphate (Neutra-Phos) 250 mg BID GTB Last administered on 11/30/16 08 :59; Admin Dose 250 MG; Start 11/10/16 at 09:00 Calcium/Vitamin D (Oyster Shell/ Vit-D (500/200)) 1 tab DAILY GTB Last administered on 11/30/16 08:59; Admin Dose 1 TAB; Start 11/12/16 at 11:00 Prochlorperazine (Compazine) 5 mg Q6H PRN GTB NAUSEA AND/OR VOMITING Last administered on 11/28/16 10:57; Admin Dose 5 MG; Start 11/17/16 at 17:30 Insulin Glargine (Lantus) 16 unit DAILY SC Last administered on 11/30/16 12:33 ; Admin Dose 16 UNIT; Start 11/24/16 at 09:00 Diagnostic Test (Pha) (Accu-Chek) 1 ea 02 XX Last administered on 11/30/16 02: 14; Admin Dose 1 EA; Start 11/24/16 at 02:00 Insulin Aspart (Novolog Insulin Pen) NOVOLOG *MILD* ALGORITHM Q4 SC Last administered on 11/30/16 12:34; Admin Dose 1 UNIT; Start 11/23/16 at 17:00 Lansoprazole (Prevacid) 30 mg BID@,18 GTB Last administered on 11/30/16 06: 42; Admin Dose 30 MG; Start 11/29/16 at 18:00 Influenza Virus Vaccine (Fluzone) 0.5 ml ONCE ONCE IM* ; Start 12/01/16 at 11:00 ; Stop 12/01/16 at 11:01 GRACIE KATHLEEN Nov 30, 2016 16:29
[2016-12-01] VITALS (26 sets, daily range): BP systolic 100–118; BP diastolic 55–73; PULSE 11–102; RESP 14–26
[2016-12-01] MEDS: INSULIN ASPART [NOVOLOG] 3 ML PEN SC SCH ×6 (00:10→20:42)
[2016-12-01] MEDS: ACCU-CHEK XX SCH (02:00)
[2016-12-01] MEDS: LORAZEPAM 2 MG INJ IV PRN ×3 (04:18→18:44)
[2016-12-01] MEDS: morphine 2 MG INJ IV PRN ×2 (04:19→17:42)
[2016-12-01] MEDS: LANSOPRAZOLE 30 MG CAP GTB SCH ×2 (06:34→17:25)
[2016-12-01 07:00] LABS: ADD SCAN DIFF NO
[2016-12-01 07:06] LABS: BASOPHILS % 0.4 % (0.0-2.0); EOSINOPHILS # 0.2 10^3/ul (0.0-0.5); EOSINOPHILS % 2.4 % (0.0-7.0); HEMATOCRIT 31.2 % (42.0-52.0); HEMOGLOBIN 9.4 g/dl (14.0-18.0); LYMPHOCYTES # 0.7 10^3/ul (0.8-2.9); LYMPHOCYTES % 8.5 % (15.0-51.0); MEAN CORPUSCULAR HEMOGLOBIN 30.3 pg (29.0-33.0); MEAN CORPUSCULAR HGB CONC 30.1 g/dl (32.0-37.0); MEAN CORPUSCULAR VOLUME 100.6 fl (82.0-101.0); MONOCYTE # 0.9 10^3/ul (0.3-0.9); MONOCYTES % 10.9 % (0.0-11.0); NEUTROPHIL # 6.4 10^3/ul (1.6-7.5); NEUTROPHILS % 77.4 % (39.0-77.0); PLATELET COUNT 204 10^3/UL (140-415); RED CELL DISTRIBUTION WIDTH 18.4 % (11.5-14.5); WHITE BLOOD COUNT 8.3 10^3/ul (4.8-10.8)
[2016-12-01 07:31] LABS: CALCIUM 7.5 mg/dl (8.4-10.2); CREATININE 2.51 mg/dl (0.61-1.24); POTASSIUM 3.9 mmol/L (3.5-5.1)
--- NOTE | 2016-12-01 08:41 | PN ---
Date/Time of Note Date/Time of Note DATE: 12/01/16 TIME: 08:39 Assessment/Plan VTE Prophylaxis VTE Prophylaxis Intervention: SCD's Lines/Catheters IV C[facility] Type [facility]from [facility] Saline Lock Urinary Cath still in place: No Assessment/Plan Assessment/Plan Paroxysmal atrial tachycardia Possible GI bleed Respiratory failure status post tracheostomy Diastolic congestive heart failure End-stage renal disease on hemodialysis CAD with history of PCI Diabetes Peripheral arterial disease with history of amputation Pulmonary hypertension Hypotension, improved -Blood pressure trend improving, holding parameters on coreg and sildenafil. -fluid management via hemodialysis as per our nephrology colleagues -no new cv reccomendations -rx ACEI if ok with renal service as hx of CAD Subjective 24 Hr Interval Summary Free Text/Dictation The patient with no change overnight Exam/Review of Systems Vital Signs Vitals Vital Signs Date Time Temp Pulse Resp B/P Pulse Ox O2 Delivery O2 Flow Rate FiO2 12/01/16 08:27 102 12/01/16 07:16 98.0 16 109/57 98 12/01/16 05:24 30 Intake and Output 11/30/16 11/30/16 12/01/16 15:00 23:00 07:00 Intake Total 300 ml 680 ml 680 ml Output Total 2300 ml Balance -2000 ml 680 ml 680 ml Results Result Diagram: 12/01/16 0635 12/01/16 0635 Results 24 hrs Laboratory Tests Test 11/30/16 09:04 11/30/16 12:30 11/30/16 17:29 11/30/16 17:31 Bedside Glucose 90 171 61 L 72 Test 11/30/16 19:03 11/30/16 19:44 12/01/16 00:09 12/01/16 00:35 Bedside Glucose 66 L 102 63 L 66 L Test 12/01/16 01:01 12/01/16 01:24 12/01/16 04:44 12/01/16 06:35 Bedside Glucose 85 112 115 White Blood Count 8.3 # Red Blood Count 3.10 L Hemoglobin 9.4 L Hematocrit 31.2 L Mean Corpuscular Volume 100.6 Mean Corpuscular Hemoglobin 30.3 Mean Corpuscular Hemoglobin Concent 30.1 L Red Cell Distribution Width 18.4 H Platelet Count 204 Mean Platelet Volume 9.0 Neutrophils % 77.4 H Lymphocytes % 8.5 L Monocytes % 10.9 Eosinophils % 2.4 Basophils % 0.4 Nucleated Red Blood Cells % 0.0 Neutrophils # 6.4 Lymphocytes # 0.7 L Monocytes # 0.9 Eosinophils # 0.2 Basophils # 0.0 Nucleated Red Blood Cells # 0.0 Sodium Level 135 Potassium Level 3.9 Chloride Level 101 Carbon Dioxide Level 30 Anion Gap 8 Blood Urea Nitrogen 36 #H Creatinine 2.51 H Glucose Level 122 Calcium Level 7.5 L Medications Medications Current Medications Lidocaine (Lidoderm) 1 patch DAILY TD Last administered on 11/30/16 09:05; Admin Dose 1 PATCH; Start 11/08/16 at 15:30 Acetaminophen (Tylenol Liquid) 325 mg Q4H PRN GTB MILD PAIN LEVEL 1-3 Last administered on 11/17/16 02:37; Admin Dose 325 MG; Start 11/08/16 at 15:30 Acetaminophen (Tylenol Liquid) 650 mg Q4H PRN GTB MODERATE PAIN LEVEL 4-6 Last administered on 11/21/16 20:54; Admin Dose 650 MG; Start 11/08/16 at 15:30 Ascorbic Acid (Vitamin C) 500 mg DAILY GTB Last administered on 11/30/16 08:58 ; Admin Dose 500 MG; Start 11/09/16 at 09:00 Atorvastatin Calcium (Lipitor) 40 mg QHS GTB Last administered on 11/30/16 20: 47; Admin Dose 40 MG; Start 11/08/16 at 21:00 Carvedilol (Coreg) 3.125 mg BID GTB Last administered on 11/30/16 20:46; Admin Dose 3.125 MG; Start 11/08/16 at 21:00 Duloxetine HCl (Cymbalta) 30 mg DAILY GTB Last administered on 11/30/16 08:59 ; Admin Dose 30 MG; Start 11/09/16 at 09:00 Fluticasone Propionate (Flonase 0.05% Nasal) 1 spray BID NASAL Last administered on 11/30/16 20:48; Admin Dose 1 SPRAY; Start 11/08/16 at 21:00 Lactobacillus Acidoph/Bulgaricus (Floranex) 1 tab DAILY GTB Last administered on 11/30/16 08:59; Admin Dose 1 TAB; Start 11/09/16 at 09:00 Sildenafil Citrate (Revatio) 20 mg BID GTB Last administered on 11/30/16 20:47 ; Admin Dose 20 MG; Start 11/08/16 at 21:00 Vitamin B Complex/ Vitamin C (Berocca) 1 cap DAILY GTB Last administered on 11:32; Admin Dose 1 CAP; Start 11/09/16 at 09:00 Miscellaneous Information 1 ea NOTE XX ; Start 11/08/16 at 16:00 Glucose (Glutose) 15 gm Q15M PRN PO DECREASED GLUCOSE; Start 11/08/16 at 16:00 Glucose (Glutose) 22.5 gm Q15M PRN PO DECREASED GLUCOSE; Start 11/08/16 at 16: 00 Dextrose (D50w Syringe) 25 ml Q15M PRN IV DECREASED GLUCOSE Last administered on 11/30/16 19:05; Admin Dose 25 ML; Start 11/08/16 at 16:00 Dextrose (D50w Syringe) 50 ml Q15M PRN IV DECREASED GLUCOSE; Start 11/08/16 at 16:00 Glucagon (Glucagen) 1 mg Q15M PRN IM DECREASED GLUCOSE; Start 11/08/16 at 16:00 Glucose (Glutose) 15 gm Q15M PRN BUCCAL DECREASED GLUCOSE; Start 11/08/16 at 16 :00 Acetaminophen/ Hydrocodone Bitart ([place] (5/325)) 1 tab Q4H PRN PO SEVERE PAIN 7-10 Last administered on 11/30/16 20:47; Admin Dose 1 TAB; Start 11/08/16 at 21:00 Morphine Sulfate (morphine) 2 mg Q4H PRN IV PAIN LEVEL 7-10 Last administered on 12/01/16 04:19; Admin Dose 2 MG; Start 11/09/16 at 11:00 Collagenase (Santyl) 1 applic DAILY TOP Last administered on 11/30/16 09:06; Admin Dose 1 APPLIC; Start 11/09/16 at 16:00 Lorazepam (Ativan) 1 mg Q6H PRN IV AGITATION/ANXIETY Last administered on 04:18; Admin Dose 1 MG; Start 11/09/16 at 20:30 Sodium Phosphate (Neutra-Phos) 250 mg BID GTB Last administered on 11/30/16 20 :49; Admin Dose 250 MG; Start 11/10/16 at 09:00 Calcium/Vitamin D (Oyster Shell/ Vit-D (500/200)) 1 tab DAILY GTB Last administered on 11/30/16 08:59; Admin Dose 1 TAB; Start 11/12/16 at 11:00 Prochlorperazine (Compazine) 5 mg Q6H PRN GTB NAUSEA AND/OR VOMITING Last administered on 11/28/16 10:57; Admin Dose 5 MG; Start 11/17/16 at 17:30 Insulin Glargine (Lantus) 16 unit DAILY SC Last administered on 11/30/16 12:33 ; Admin Dose 16 UNIT; Start 11/24/16 at 09:00 Diagnostic Test (Pha) (Accu-Chek) 1 ea 02 XX Last administered on 11/30/16 02: 14; Admin Dose 1 EA; Start 11/24/16 at 02:00 Insulin Aspart (Novolog Insulin Pen) NOVOLOG *MILD* ALGORITHM Q4 SC Last administered on 11/30/16 12:34; Admin Dose 1 UNIT; Start 11/23/16 at 17:00 Lansoprazole (Prevacid) 30 mg BID@06,18 GTB Last administered on 12/01/16 06: 34; Admin Dose 30 MG; Start 11/29/16 at 18:00 Influenza Virus Vaccine (Fluzone) 0.5 ml ONCE ONCE IM* ; Start 12/01/16 at 11:00 ; Stop 12/01/16 at 11:01 MARIANA [place] MD Dec 01, 2016 08:41
[2016-12-01] MEDS: LIDOCAINE 5% PATCH TD SCH (08:51)
[2016-12-01] MEDS: FLUTICASONE 0.05% 16 GM NAS SPRAY NASAL SCH ×2 (08:51→20:39)
[2016-12-01] MEDS: COLLAGENASE 30 GM TUBE TOP SCH (08:51)
[2016-12-01] MEDS: DULOXETINE 30 MG CAP DR GTB SCH (08:52)
[2016-12-01] MEDS: LACTOBACILLUS CHEW TAB GTB SCH (08:52)
[2016-12-01] MEDS: VITAMIN B COMPLEX/VIT C CAP GTB SCH (08:53)
[2016-12-01] MEDS: NEUTRA-PHOS 250 MG PACKET GTB SCH ×2 (08:53→20:39)
[2016-12-01] MEDS: CALCIUM/VITAMIN D (500/200) TAB GTB SCH (08:53)
[2016-12-01] MEDS: ASCORBIC ACID 500 MG TAB GTB SCH (08:54)
[2016-12-01] MEDS: INSULIN GLARGINE [LANtus] 3 ML PEN SC SCH (08:56)
[2016-12-01] MEDS: SILDENAFIL 20 MG TAB GTB SCH ×2 (09:02→20:40)
[2016-12-01] MEDS ORDERED: INFLUENZA VIRUS VACCINE 0.5 ML SYG IM* ONE (11:00)
--- NOTE | 2016-12-01 11:20 | PN ---
Date/Time of Note Date/Time of Note DATE: 12/01/16 TIME: 11:19 Assessment/Plan VTE Prophylaxis VTE Prophylaxis Intervention: other Lines/Catheters [facility] Saline Lock Urinary Cath still in place: No Assessment/Plan Chief Complaint/Hosp Course - Esophagitis per EGD. Continue Protonix Dr. Hernandez is following in gastroenterology consultation. - Anemia of chronic disease, on Epogen, continue to monitor hemoglobin and hematocrit, transfuse as needed. - Ascites, SBP ruled out, Status post paracentesis 11/14,ascitic fluid culture negative. - Systemic inflammatory response syndrome with leukocytosis, patient is followed by Dr. Benjamin deluna in infection disease consultation. - End-stage renal disease, hemodialysis dependent. Continue hemodialysis per nephrology. - Chronic respiratory failure with tracheostomy. Dr. Sahu is following in pulmonology consultation. - Coronary artery disease with history of PCI. - Diastolic congestive heart failure - Pulmonary hypertension - Peripheral vascular disease, status post left BKA. - Diabetes mellitus type 2, continue NovoLog per sliding scale. - Sacral decub present on admission. Continue current wound care. Problems: Subjective 24 Hr Interval Summary Free Text/Dictation Patient has no complaints Exam/Review of Systems Vital Signs Vitals Vital Signs Date Time Temp Pulse Resp B/P Pulse Ox O2 Delivery O2 Flow Rate FiO2 12/01/16 11:15 30 12/01/16 11:13 97.8 106 22 101/55 96 Intake and Output 11/30/16 11/30/16 12/01/16 15:00 23:00 07:00 Intake Total 300 ml 680 ml 680 ml Output Total 2300 ml Balance -2000 ml 680 ml 680 ml Exam Constitutional: well developed Head: atraumatic, normocephalic Neck: supple Respiratory: diminished breath sounds Cardiovascular: regular rate and rhythm Gastrointestinal: non-tender, soft Extremities: normal pulses Results Result Diagram: 12/01/16 0635 12/01/16 0635 Results 24 hrs Laboratory Tests Test 11/30/16 12:30 11/30/16 17:29 11/30/16 17:31 11/30/16 19:03 Bedside Glucose 171 61 L 72 66 L Test 11/30/16 19:44 12/01/16 00:09 12/01/16 00:35 12/01/16 01:01 Bedside Glucose 102 63 L 66 L 85 Test 12/01/16 01:24 12/01/16 04:44 12/01/16 06:35 12/01/16 08:50 Bedside Glucose 112 115 152 White Blood Count 8.3 # Red Blood Count 3.10 L Hemoglobin 9.4 L Hematocrit 31.2 L Mean Corpuscular Volume 100.6 Mean Corpuscular Hemoglobin 30.3 Mean Corpuscular Hemoglobin Concent 30.1 L Red Cell Distribution Width 18.4 H Platelet Count 204 Mean Platelet Volume 9.0 Neutrophils % 77.4 H Lymphocytes % 8.5 L Monocytes % 10.9 Eosinophils % 2.4 Basophils % 0.4 Nucleated Red Blood Cells % 0.0 Neutrophils # 6.4 Lymphocytes # 0.7 L Monocytes # 0.9 Eosinophils # 0.2 Basophils # 0.0 Nucleated Red Blood Cells # 0.0 Sodium Level 135 Potassium Level 3.9 Chloride Level 101 Carbon Dioxide Level 30 Anion Gap 8 Blood Urea Nitrogen 36 #H Creatinine 2.51 H Glucose Level 122 Calcium Level 7.5 L Medications Medications Current Medications Lidocaine (Lidoderm) 1 patch DAILY TD Last administered on 12/01/16 08:51; Admin Dose 1 PATCH; Start 11/08/16 at 15:30 Acetaminophen (Tylenol Liquid) 325 mg Q4H PRN GTB MILD PAIN LEVEL 1-3 Last administered on 11/17/16 02:37; Admin Dose 325 MG; Start 11/08/16 at 15:30 Acetaminophen (Tylenol Liquid) 650 mg Q4H PRN GTB MODERATE PAIN LEVEL 4-6 Last administered on 11/21/16 20:54; Admin Dose 650 MG; Start 11/08/16 at 15:30 Ascorbic Acid (Vitamin C) 500 mg DAILY GTB Last administered on 12/01/16 08:54 ; Admin Dose 500 MG; Start 11/09/16 at 09:00 Atorvastatin Calcium (Lipitor) 40 mg QHS GTB Last administered on 11/30/16 20: 47; Admin Dose 40 MG; Start 11/08/16 at 21:00 Carvedilol (Coreg) 3.125 mg BID GTB Last administered on 12/01/16 08:53; Admin Dose 3.125 MG; Start 11/08/16 at 21:00 Duloxetine HCl (Cymbalta) 30 mg DAILY GTB Last administered on 12/01/16 08:52 ; Admin Dose 30 MG; Start 11/09/16 at 09:00 Fluticasone Propionate (Flonase 0.05% Nasal) 1 spray BID NASAL Last administered on 12/01/16 08:51; Admin Dose 1 SPRAY; Start 11/08/16 at 21:00 Lactobacillus Acidoph/Bulgaricus (Floranex) 1 tab DAILY GTB Last administered on 12/01/16 08:52; Admin Dose 1 TAB; Start 11/09/16 at 09:00 Sildenafil Citrate (Revatio) 20 mg BID GTB Last administered on 12/01/16 09:02 ; Admin Dose 20 MG; Start 11/08/16 at 21:00 Vitamin B Complex/ Vitamin C (Berocca) 1 cap DAILY GTB Last administered on 08:53; Admin Dose 1 CAP; Start 11/09/16 at 09:00 Miscellaneous Information 1 ea NOTE XX ; Start 11/08/16 at 16:00 Glucose (Glutose) 15 gm Q15M PRN PO DECREASED GLUCOSE; Start 11/08/16 at 16:00 Glucose (Glutose) 22.5 gm Q15M PRN PO DECREASED GLUCOSE; Start 11/08/16 at 16: 00 Dextrose (D50w Syringe) 25 ml Q15M PRN IV DECREASED GLUCOSE Last administered on 11/30/16 19:05; Admin Dose 25 ML; Start 11/08/16 at 16:00 Dextrose (D50w Syringe) 50 ml Q15M PRN IV DECREASED GLUCOSE; Start 11/08/16 at 16:00 Glucagon (Glucagen) 1 mg Q15M PRN IM DECREASED GLUCOSE; Start 11/08/16 at 16:00 Glucose (Glutose) 15 gm Q15M PRN BUCCAL DECREASED GLUCOSE; Start 11/08/16 at 16 :00 Acetaminophen/ Hydrocodone Bitart ([place] (5/325)) 1 tab Q4H PRN PO SEVERE PAIN 7-10 Last administered on 11/30/16 20:47; Admin Dose 1 TAB; Start 11/08/16 at 21:00 Morphine Sulfate (morphine) 2 mg Q4H PRN IV PAIN LEVEL 7-10 Last administered on 12/01/16 04:19; Admin Dose 2 MG; Start 11/09/16 at 11:00 Collagenase (Santyl) 1 applic DAILY TOP Last administered on 12/01/16 08:51; Admin Dose 1 APPLIC; Start 11/09/16 at 16:00 Lorazepam (Ativan) 1 mg Q6H PRN IV AGITATION/ANXIETY Last administered on 04:18; Admin Dose 1 MG; Start 11/09/16 at 20:30 Sodium Phosphate (Neutra-Phos) 250 mg BID GTB Last administered on 12/01/16 08 :53; Admin Dose 250 MG; Start 11/10/16 at 09:00 Calcium/Vitamin D (Oyster Shell/ Vit-D (500/200)) 1 tab DAILY GTB Last administered on 12/01/16 08:53; Admin Dose 1 TAB; Start 11/12/16 at 11:00 Prochlorperazine (Compazine) 5 mg Q6H PRN GTB NAUSEA AND/OR VOMITING Last administered on 11/28/16 10:57; Admin Dose 5 MG; Start 11/17/16 at 17:30 Insulin Glargine (Lantus) 16 unit DAILY SC Last administered on 12/01/16 08:56 ; Admin Dose 16 UNIT; Start 11/24/16 at 09:00 Diagnostic Test (Pha) (Accu-Chek) 1 ea 02 XX Last administered on 11/30/16 02: 14; Admin Dose 1 EA; Start 11/24/16 at 02:00 Insulin Aspart (Novolog Insulin Pen) NOVOLOG *MILD* ALGORITHM Q4 SC Last administered on 12/01/16 08:57; Admin Dose 1 UNIT; Start 11/23/16 at 17:00 Lansoprazole (Prevacid) 30 mg BID@,18 GTB Last administered on 12/01/16 06: 34; Admin Dose 30 MG; Start 11/29/16 at 18:00 LESLIE PEDROZA Dec 01, 2016 11:20
--- NOTE | 2016-12-01 13:08 | PN ---
Date/Time of Note Date/Time of Note DATE: 12/01/16 TIME: 13:06 Assessment/Plan VTE Prophylaxis VTE Prophylaxis Intervention: other Lines/Catheters IV C[facility]ter Type (from [facility]): Saline Lock Urinary Cath still in place: No Assessment/Plan Assessment/Plan 1. End-stage renal disease. The patient is scheduled for hemodialysis most likely for 12/03. will evaluate daily for his dialytic needs 2. Anemia. Hemoglobin levels have been stable. Continue Epogen. 3. Mineral bone disorder. Continue to monitor calcium and phosphorus levels. 4. Sepsis secondary to pneumonia. The patient has completed an antibiotic course. 5. Ventilator dependent respiratory failure. Vent settings have been reviewed. Continue to monitor. Follow up with pulmonary. 6. Dysphagia. Status post PEG tube. Continue tube feeding. 7. Coronary artery disease. Continue the current medical management. 8. Diabetes. Continue Accu-Cheks and insulin sliding scale. 9. Congestive heart failure. The patient is clinically improving. Continue the current medical management. 10. Sacral decubitus wound. Continue wound care. Subjective 24 Hr Interval Summary Free Text/Dictation SUBJECTIVE: The patient is stable. No acute events overnight. s/p HD yesterday d/w Dr Valiente no vomiting, rash, hematemesis, fever, diaphoresis, tachypnea vent settings were reviewed OBJECTIVE: HEENT: Head is normocephalic. NECK: Supple. HEART: Regular rate. LUNGS: Show diminished breath sounds at the base. ABDOMEN: Soft, nontender to palpation. Positive PEG. EXTREMITIES: Negative for clubbing or cyanosis. No edema. 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 DERMATOLOGIC: No rashes. MUSCULOSKELETAL: Have no joint effusion. NEUROLOGIC: No change in exam. MEDICATIONS: The patient's medications have been reviewed. Exam/Review of Systems Vital Signs Vitals Vital Signs Date Time Temp Pulse Resp B/P Pulse Ox O2 Delivery O2 Flow Rate FiO2 12/01/16 12:35 93 12/01/16 11:15 30 12/01/16 11:13 97.8 22 101/55 96 Intake and Output 11/30/16 11/30/16 12/01/16 15:00 23:00 07:00 Intake Total 300 ml 680 ml 680 ml Output Total 2300 ml Balance -2000 ml 680 ml 680 ml Results Result Diagram: 12/01/16 0635 12/01/16 0635 Results 24 hrs Laboratory Tests Test 11/30/16 17:29 11/30/16 17:31 11/30/16 19:03 11/30/16 19:44 Bedside Glucose 61 L 72 66 L 102 Test 12/01/16 00:09 12/01/16 00:35 12/01/16 01:01 12/01/16 01:24 Bedside Glucose 63 L 66 L 85 112 Test 12/01/16 04:44 12/01/16 06:35 12/01/16 08:50 Bedside Glucose 115 152 White Blood Count 8.3 # Red Blood Count 3.10 L Hemoglobin 9.4 L Hematocrit 31.2 L Mean Corpuscular Volume 100.6 Mean Corpuscular Hemoglobin 30.3 Mean Corpuscular Hemoglobin Concent 30.1 L Red Cell Distribution Width 18.4 H Platelet Count 204 Mean Platelet Volume 9.0 Neutrophils % 77.4 H Lymphocytes % 8.5 L Monocytes % 10.9 Eosinophils % 2.4 Basophils % 0.4 Nucleated Red Blood Cells % 0.0 Neutrophils # 6.4 Lymphocytes # 0.7 L Monocytes # 0.9 Eosinophils # 0.2 Basophils # 0.0 Nucleated Red Blood Cells # 0.0 Sodium Level 135 Potassium Level 3.9 Chloride Level 101 Carbon Dioxide Level 30 Anion Gap 8 Blood Urea Nitrogen 36 #H Creatinine 2.51 H Glucose Level 122 Calcium Level 7.5 L Medications Medications Current Medications Lidocaine (Lidoderm) 1 patch DAILY TD Last administered on 12/01/16 08:51; Admin Dose 1 PATCH; Start 11/08/16 at 15:30 Acetaminophen (Tylenol Liquid) 325 mg Q4H PRN GTB MILD PAIN LEVEL 1-3 Last administered on 11/17/16 02:37; Admin Dose 325 MG; Start 11/08/16 at 15:30 Acetaminophen (Tylenol Liquid) 650 mg Q4H PRN GTB MODERATE PAIN LEVEL 4-6 Last administered on 11/21/16 20:54; Admin Dose 650 MG; Start 11/08/16 at 15:30 Ascorbic Acid (Vitamin C) 500 mg DAILY GTB Last administered on 12/01/16 08:54 ; Admin Dose 500 MG; Start 11/09/16 at 09:00 Atorvastatin Calcium (Lipitor) 40 mg QHS GTB Last administered on 11/30/16 20: 47; Admin Dose 40 MG; Start 11/08/16 at 21:00 Carvedilol (Coreg) 3.125 mg BID GTB Last administered on 12/01/16 08:53; Admin Dose 3.125 MG; Start 11/08/16 at 21:00 Duloxetine HCl (Cymbalta) 30 mg DAILY GTB Last administered on 12/01/16 08:52 ; Admin Dose 30 MG; Start 11/09/16 at 09:00 Fluticasone Propionate (Flonase 0.05% Nasal) 1 spray BID NASAL Last administered on 12/01/16 08:51; Admin Dose 1 SPRAY; Start 11/08/16 at 21:00 Lactobacillus Acidoph/Bulgaricus (Floranex) 1 tab DAILY GTB Last administered on 12/01/16 08:52; Admin Dose 1 TAB; Start 11/09/16 at 09:00 Sildenafil Citrate (Revatio) 20 mg BID GTB Last administered on 12/01/16 09:02 ; Admin Dose 20 MG; Start 11/08/16 at 21:00 Vitamin B Complex/ Vitamin C (Berocca) 1 cap DAILY GTB Last administered on 08:53; Admin Dose 1 CAP; Start 11/09/16 at 09:00 Miscellaneous Information 1 ea NOTE XX ; Start 11/08/16 at 16:00 Glucose (Glutose) 15 gm Q15M PRN PO DECREASED GLUCOSE; Start 11/08/16 at 16:00 Glucose (Glutose) 22.5 gm Q15M PRN PO DECREASED GLUCOSE; Start 11/08/16 at 16: 00 Dextrose (D50w Syringe) 25 ml Q15M PRN IV DECREASED GLUCOSE Last administered on 11/30/16 19:05; Admin Dose 25 ML; Start 11/08/16 at 16:00 Dextrose (D50w Syringe) 50 ml Q15M PRN IV DECREASED GLUCOSE; Start 11/08/16 at 16:00 Glucagon (Glucagen) 1 mg Q15M PRN IM DECREASED GLUCOSE; Start 11/08/16 at 16:00 Glucose (Glutose) 15 gm Q15M PRN BUCCAL DECREASED GLUCOSE; Start 11/08/16 at 16 :00 Acetaminophen/ Hydrocodone Bitart ([place] (5/325)) 1 tab Q4H PRN PO SEVERE PAIN 7-10 Last administered on 11/30/16 20:47; Admin Dose 1 TAB; Start 11/08/16 at 21:00 Morphine Sulfate (morphine) 2 mg Q4H PRN IV PAIN LEVEL 7-10 Last administered on 12/01/16 04:19; Admin Dose 2 MG; Start 11/09/16 at 11:00 Collagenase (Santyl) 1 applic DAILY TOP Last administered on 12/01/16 08:51; Admin Dose 1 APPLIC; Start 11/09/16 at 16:00 Lorazepam (Ativan) 1 mg Q6H PRN IV AGITATION/ANXIETY Last administered on 04:18; Admin Dose 1 MG; Start 11/09/16 at 20:30 Sodium Phosphate (Neutra-Phos) 250 mg BID GTB Last administered on 12/01/16 08 :53; Admin Dose 250 MG; Start 11/10/16 at 09:00 Calcium/Vitamin D (Oyster Shell/ Vit-D (500/200)) 1 tab DAILY GTB Last administered on 12/01/16 08:53; Admin Dose 1 TAB; Start 11/12/16 at 11:00 Prochlorperazine (Compazine) 5 mg Q6H PRN GTB NAUSEA AND/OR VOMITING Last administered on 11/28/16 10:57; Admin Dose 5 MG; Start 11/17/16 at 17:30 Insulin Glargine (Lantus) 16 unit DAILY SC Last administered on 12/01/16 08:56 ; Admin Dose 16 UNIT; Start 11/24/16 at 09:00 Diagnostic Test (Pha) (Accu-Chek) 1 ea 02 XX Last administered on 11/30/16 02: 14; Admin Dose 1 EA; Start 11/24/16 at 02:00 Insulin Aspart (Novolog Insulin Pen) NOVOLOG *MILD* ALGORITHM Q4 SC Last administered on 12/01/16 08:57; Admin Dose 1 UNIT; Start 11/23/16 at 17:00 Lansoprazole (Prevacid) 30 mg BID@,18 GTB Last administered on 12/01/16 06: 34; Admin Dose 30 MG; Start 11/29/16 at 18:00 DOMINIC MUSA DO Dec 01, 2016 13:08
[2016-12-01] MEDS: ATORVASTATIN 40 MG TAB GTB SCH (20:39)
[2016-12-02] VITALS (24 sets, daily range): BP systolic 91–141; BP diastolic 52–80; PULSE 96–105; RESP 14–22
[2016-12-02] MEDS: INSULIN ASPART [NOVOLOG] 3 ML PEN SC SCH ×6 (00:31→20:38)
[2016-12-02] MEDS: ACCU-CHEK XX SCH (00:31)
[2016-12-02] MEDS: morphine 2 MG INJ IV PRN (01:40)
[2016-12-02] MEDS: LORAZEPAM 2 MG INJ IV PRN ×2 (05:10→14:16)
[2016-12-02] MEDS: LANSOPRAZOLE 30 MG CAP GTB SCH ×2 (05:10→17:24)
[2016-12-02] MEDS: INSULIN GLARGINE [LANtus] 3 ML PEN SC SCH (08:54)
[2016-12-02] MEDS: COLLAGENASE 30 GM TUBE TOP SCH (08:58)
[2016-12-02] MEDS: FLUTICASONE 0.05% 16 GM NAS SPRAY NASAL SCH ×2 (08:58→21:00)
[2016-12-02] MEDS: LIDOCAINE 5% PATCH TD SCH (08:58)
[2016-12-02] MEDS: DULOXETINE 30 MG CAP DR GTB SCH (08:59)
[2016-12-02] MEDS: VITAMIN B COMPLEX/VIT C CAP GTB SCH (08:59)
[2016-12-02] MEDS: CALCIUM/VITAMIN D (500/200) TAB GTB SCH (08:59)
[2016-12-02] MEDS: NEUTRA-PHOS 250 MG PACKET GTB SCH ×2 (09:00→20:59)
[2016-12-02] MEDS: ASCORBIC ACID 500 MG TAB GTB SCH (09:00)
[2016-12-02] MEDS: LACTOBACILLUS CHEW TAB GTB SCH (09:00)
[2016-12-02] MEDS: SILDENAFIL 20 MG TAB GTB SCH ×2 (09:09→21:00)
--- NOTE | 2016-12-02 10:44 | PN ---
Date/Time of Note Date/Time of Note DATE: 12/02/16 TIME: 10:43 Assessment/Plan VTE Prophylaxis VTE Prophylaxis Intervention: other Lines/Catheters IV C[facility] Type (from [facility] Saline Lock Urinary Cath still in place: No Assessment/Plan Assessment/Plan 1. End-stage renal disease. The patient is scheduled for hemodialysis for . will evaluate daily for his dialytic needs 2. Anemia. Hemoglobin levels have been stable. Continue Epogen. 3. Mineral bone disorder. Continue to monitor calcium and phosphorus levels. 4. Sepsis secondary to pneumonia. The patient has completed an antibiotic course. 5. Ventilator dependent respiratory failure. Vent settings have been reviewed. Continue to monitor. Follow up with pulmonary. 6. Dysphagia. Status post PEG tube. Continue tube feeding. 7. Coronary artery disease. Continue the current medical management. 8. Diabetes. Continue Accu-Cheks and insulin sliding scale. 9. Congestive heart failure. The patient is clinically improving. Continue the current medical management. 10. Sacral decubitus wound. Continue wound care. Subjective 24 Hr Interval Summary Free Text/Dictation SUBJECTIVE: The patient is stable. No acute events overnight. s/p HD 2 days ago d/w Dr Valiente no vomiting, rash, hematemesis, fever, diaphoresis, tachypnea vent settings were reviewed OBJECTIVE: HEENT: Head is normocephalic. NECK: Supple. HEART: Regular rate. LUNGS: Show diminished breath sounds at the base. ABDOMEN: Soft, nontender to palpation. Positive PEG. EXTREMITIES: Negative for clubbing or cyanosis. No edema. 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 DERMATOLOGIC: No rashes. MUSCULOSKELETAL: Have no joint effusion. NEUROLOGIC: No change in exam. MEDICATIONS: The patient's medications have been reviewed. Exam/Review of Systems Vital Signs Vitals Vital Signs Date Time Temp Pulse Resp B/P Pulse Ox O2 Delivery O2 Flow Rate FiO2 12/02/16 09:56 98 20 100 30 12/02/16 07:47 98.4 103/58 Intake and Output 12/01/16 12/01/16 12/02/16 15:00 23:00 07:00 Intake Total 390 ml 790 ml Balance 390 ml 790 ml Results Result Diagram: 12/01/16 0635 12/01/16 0635 Results 24 hrs Laboratory Tests Test 12/01/16 12:57 12/01/16 16:48 12/01/16 19:55 12/02/16 00:29 Bedside Glucose 170 177 153 134 Test 12/02/16 05:07 12/02/16 08:49 Bedside Glucose 144 179 Medications Medications Current Medications Lidocaine (Lidoderm) 1 patch DAILY TD Last administered on 12/02/16 08:58; Admin Dose 1 PATCH; Start 11/08/16 at 15:30 Acetaminophen (Tylenol Liquid) 325 mg Q4H PRN GTB MILD PAIN LEVEL 1-3 Last administered on 11/17/16 02:37; Admin Dose 325 MG; Start 11/08/16 at 15:30 Acetaminophen (Tylenol Liquid) 650 mg Q4H PRN GTB MODERATE PAIN LEVEL 4-6 Last administered on 11/21/16 20:54; Admin Dose 650 MG; Start 11/08/16 at 15:30 Ascorbic Acid (Vitamin C) 500 mg DAILY GTB Last administered on 12/02/16 09:00 ; Admin Dose 500 MG; Start 11/09/16 at 09:00 Atorvastatin Calcium (Lipitor) 40 mg QHS GTB Last administered on 12/01/16 20: 39; Admin Dose 40 MG; Start 11/08/16 at 21:00 Carvedilol (Coreg) 3.125 mg BID GTB Last administered on 12/01/16 20:40; Admin Dose 3.125 MG; Start 11/08/16 at 21:00 Duloxetine HCl (Cymbalta) 30 mg DAILY GTB Last administered on 12/02/16 08:59 ; Admin Dose 30 MG; Start 11/09/16 at 09:00 Fluticasone Propionate (Flonase 0.05% Nasal) 1 spray BID NASAL Last administered on 12/02/16 08:58; Admin Dose 1 SPRAY; Start 11/08/16 at 21:00 Lactobacillus Acidoph/Bulgaricus (Floranex) 1 tab DAILY GTB Last administered on 12/02/16 09:00; Admin Dose 1 TAB; Start 11/09/16 at 09:00 Sildenafil Citrate (Revatio) 20 mg BID GTB Last administered on 12/02/16 09:09 ; Admin Dose 20 MG; Start 11/08/16 at 21:00 Vitamin B Complex/ Vitamin C (Berocca) 1 cap DAILY GTB Last administered on 08:59; Admin Dose 1 CAP; Start 11/09/16 at 09:00 Miscellaneous Information 1 ea NOTE XX ; Start 11/08/16 at 16:00 Glucose (Glutose) 15 gm Q15M PRN PO DECREASED GLUCOSE; Start 11/08/16 at 16:00 Glucose (Glutose) 22.5 gm Q15M PRN PO DECREASED GLUCOSE; Start 11/08/16 at 16: 00 Dextrose (D50w Syringe) 25 ml Q15M PRN IV DECREASED GLUCOSE Last administered on 11/30/16 19:05; Admin Dose 25 ML; Start 11/08/16 at 16:00 Dextrose (D50w Syringe) 50 ml Q15M PRN IV DECREASED GLUCOSE; Start 11/08/16 at 16:00 Glucagon (Glucagen) 1 mg Q15M PRN IM DECREASED GLUCOSE; Start 11/08/16 at 16:00 Glucose (Glutose) 15 gm Q15M PRN BUCCAL DECREASED GLUCOSE; Start 11/08/16 at 16 :00 Acetaminophen/ Hydrocodone Bitart ([place] (5/325)) 1 tab Q4H PRN PO SEVERE PAIN 7-10 Last administered on 11/30/16 20:47; Admin Dose 1 TAB; Start 11/08/16 at 21:00 Morphine Sulfate (morphine) 2 mg Q4H PRN IV PAIN LEVEL 7-10 Last administered on 12/02/16 01:40; Admin Dose 2 MG; Start 11/09/16 at 11:00 Collagenase (Santyl) 1 applic DAILY TOP Last administered on 12/02/16 08:58; Admin Dose 1 APPLIC; Start 11/09/16 at 16:00 Lorazepam (Ativan) 1 mg Q6H PRN IV AGITATION/ANXIETY Last administered on 05:10; Admin Dose 1 MG; Start 11/09/16 at 20:30 Sodium Phosphate (Neutra-Phos) 250 mg BID GTB Last administered on 12/02/16 09 :00; Admin Dose 250 MG; Start 11/10/16 at 09:00 Calcium/Vitamin D (Oyster Shell/ Vit-D (500/200)) 1 tab DAILY GTB Last administered on 12/02/16 08:59; Admin Dose 1 TAB; Start 11/12/16 at 11:00 Prochlorperazine (Compazine) 5 mg Q6H PRN GTB NAUSEA AND/OR VOMITING Last administered on 11/28/16 10:57; Admin Dose 5 MG; Start 11/17/16 at 17:30 Insulin Glargine (Lantus) 16 unit DAILY SC Last administered on 12/02/16 08:54 ; Admin Dose 16 UNIT; Start 11/24/16 at 09:00 Diagnostic Test (Pha) (Accu-Chek) 1 ea 02 XX Last administered on 11/30/16 02: 14; Admin Dose 1 EA; Start 11/24/16 at 02:00 Insulin Aspart (Novolog Insulin Pen) NOVOLOG *MILD* ALGORITHM Q4 SC Last administered on 12/02/16 08:51; Admin Dose 1 UNIT; Start 11/23/16 at 17:00 Lansoprazole (Prevacid) 30 mg BID@06,18 GTB Last administered on 12/02/16 05: 10; Admin Dose 30 MG; Start 11/29/16 at 18:00 DOMINIC MUSA DO Dec 02, 2016 10:44
--- NOTE | 2016-12-02 11:57 | PN ---
Date/Time of Note Date/Time of Note DATE: 12/02/16 TIME: 11:56 Assessment/Plan VTE Prophylaxis VTE Prophylaxis Intervention: SCD's Lines/Catheters IV Catheter Type (from Nrsg): Saline Lock Urinary Cath still in place: No Assessment/Plan Assessment/Plan Paroxysmal atrial tachycardia Possible GI bleed Respiratory failure status post tracheostomy Diastolic congestive heart failure End-stage renal disease on hemodialysis CAD with history of PCI Diabetes Peripheral arterial disease with history of amputation Pulmonary hypertension Hypotension, improved -Blood pressure trend improving, holding parameters on coreg and sildenafil. -fluid management via hemodialysis as per our nephrology colleagues -no new cv reccomendations Subjective 24 Hr Interval Summary Free Text/Dictation the patient with no cahnge Exam/Review of Systems Vital Signs Vitals Vital Signs Date Time Temp Pulse Resp B/P Pulse Ox O2 Delivery O2 Flow Rate FiO2 12/02/16 11:45 98 22 100 30 12/02/16 07:47 98.4 103/58 Intake and Output 12/01/16 12/01/16 12/02/16 15:00 23:00 07:00 Intake Total 390 ml 790 ml Balance 390 ml 790 ml Results Result Diagram: 12/01/16 0635 12/01/16 0635 Results 24 hrs Laboratory Tests Test 12/01/16 12:57 12/01/16 16:48 12/01/16 19:55 12/02/16 00:29 Bedside Glucose 170 177 153 134 Test 12/02/16 05:07 12/02/16 08:49 Bedside Glucose 144 179 Medications Medications Current Medications Lidocaine (Lidoderm) 1 patch DAILY TD Last administered on 12/02/16 08:58; Admin Dose 1 PATCH; Start 11/08/16 at 15:30 Acetaminophen (Tylenol Liquid) 325 mg Q4H PRN GTB MILD PAIN LEVEL 1-3 Last administered on 11/17/16 02:37; Admin Dose 325 MG; Start 11/08/16 at 15:30 Acetaminophen (Tylenol Liquid) 650 mg Q4H PRN GTB MODERATE PAIN LEVEL 4-6 Last administered on 11/21/16 20:54; Admin Dose 650 MG; Start 11/08/16 at 15:30 Ascorbic Acid (Vitamin C) 500 mg DAILY GTB Last administered on 12/02/16 09:00 ; Admin Dose 500 MG; Start 11/09/16 at 09:00 Atorvastatin Calcium (Lipitor) 40 mg QHS GTB Last administered on 12/01/16 20: 39; Admin Dose 40 MG; Start 11/08/16 at 21:00 Carvedilol (Coreg) 3.125 mg BID GTB Last administered on 12/01/16 20:40; Admin Dose 3.125 MG; Start 11/08/16 at 21:00 Duloxetine HCl (Cymbalta) 30 mg DAILY GTB Last administered on 12/02/16 08:59 ; Admin Dose 30 MG; Start 11/09/16 at 09:00 Fluticasone Propionate (Flonase 0.05% Nasal) 1 spray BID NASAL Last administered on 12/02/16 08:58; Admin Dose 1 SPRAY; Start 11/08/16 at 21:00 Lactobacillus Acidoph/Bulgaricus (Floranex) 1 tab DAILY GTB Last administered on 12/02/16 09:00; Admin Dose 1 TAB; Start 11/09/16 at 09:00 Sildenafil Citrate (Revatio) 20 mg BID GTB Last administered on 12/02/16 09:09 ; Admin Dose 20 MG; Start 11/08/16 at 21:00 Vitamin B Complex/ Vitamin C (Berocca) 1 cap DAILY GTB Last administered on 08:59; Admin Dose 1 CAP; Start 11/09/16 at 09:00 Miscellaneous Information 1 ea NOTE XX ; Start 11/08/16 at 16:00 Glucose (Glutose) 15 gm Q15M PRN PO DECREASED GLUCOSE; Start 11/08/16 at 16:00 Glucose (Glutose) 22.5 gm Q15M PRN PO DECREASED GLUCOSE; Start 11/08/16 at 16: 00 Dextrose (D50w Syringe) 25 ml Q15M PRN IV DECREASED GLUCOSE Last administered on 11/30/16 19:05; Admin Dose 25 ML; Start 11/08/16 at 16:00 Dextrose (D50w Syringe) 50 ml Q15M PRN IV DECREASED GLUCOSE; Start 11/08/16 at 16:00 Glucagon (Glucagen) 1 mg Q15M PRN IM DECREASED GLUCOSE; Start 11/08/16 at 16:00 Glucose (Glutose) 15 gm Q15M PRN BUCCAL DECREASED GLUCOSE; Start 11/08/16 at 16 :00 Acetaminophen/ Hydrocodone Bitart ([place] (5/325)) 1 tab Q4H PRN PO SEVERE PAIN 7-10 Last administered on 11/30/16 20:47; Admin Dose 1 TAB; Start 11/08/16 at 21:00 Morphine Sulfate (morphine) 2 mg Q4H PRN IV PAIN LEVEL 7-10 Last administered on 12/02/16 01:40; Admin Dose 2 MG; Start 11/09/16 at 11:00 Collagenase (Santyl) 1 applic DAILY TOP Last administered on 12/02/16 08:58; Admin Dose 1 APPLIC; Start 11/09/16 at 16:00 Lorazepam (Ativan) 1 mg Q6H PRN IV AGITATION/ANXIETY Last administered on 05:10; Admin Dose 1 MG; Start 11/09/16 at 20:30 Sodium Phosphate (Neutra-Phos) 250 mg BID GTB Last administered on 12/02/16 09 :00; Admin Dose 250 MG; Start 11/10/16 at 09:00 Calcium/Vitamin D (Oyster Shell/ Vit-D (500/200)) 1 tab DAILY GTB Last administered on 12/02/16 08:59; Admin Dose 1 TAB; Start 11/12/16 at 11:00 Prochlorperazine (Compazine) 5 mg Q6H PRN GTB NAUSEA AND/OR VOMITING Last administered on 11/28/16 10:57; Admin Dose 5 MG; Start 11/17/16 at 17:30 Insulin Glargine (Lantus) 16 unit DAILY SC Last administered on 12/02/16 08:54 ; Admin Dose 16 UNIT; Start 11/24/16 at 09:00 Diagnostic Test (Pha) (Accu-Chek) 1 ea 02 XX Last administered on 11/30/16 02: 14; Admin Dose 1 EA; Start 11/24/16 at 02:00 Insulin Aspart (Novolog Insulin Pen) NOVOLOG *MILD* ALGORITHM Q4 SC Last administered on 12/02/16 08:51; Admin Dose 1 UNIT; Start 11/23/16 at 17:00 Lansoprazole (Prevacid) 30 mg BID@,18 GTB Last administered on 12/02/16 05: 10; Admin Dose 30 MG; Start 11/29/16 at 18:00 MARIANA [place] MD Dec 02, 2016 11:57
--- NOTE | 2016-12-02 12:31 | PN ---
Date/Time of Note Date/Time of Note DATE: 12/02/16 TIME: 12:30 Assessment/Plan VTE Prophylaxis VTE Prophylaxis Intervention: other Lines/Catheters IV C[facility] Type (from [facility] Saline Lock Urinary Cath still in place: No Assessment/Plan Chief Complaint/Hosp Course - Esophagitis per EGD. Continue Protonix Dr. Hernandez is following in gastroenterology consultation. - Anemia of chronic disease, on Epogen, continue to monitor hemoglobin and hematocrit, transfuse as needed. - Ascites, SBP ruled out, Status post paracentesis 11/14,ascitic fluid culture negative. - Systemic inflammatory response syndrome with leukocytosis, patient is followed by Dr. Benjamin deluna in infection disease consultation. - End-stage renal disease, hemodialysis dependent. Continue hemodialysis per nephrology. - Chronic respiratory failure with tracheostomy. Dr. Sahu is following in pulmonology consultation. - Coronary artery disease with history of PCI. - Diastolic congestive heart failure - Pulmonary hypertension - Peripheral vascular disease, status post left BKA. - Diabetes mellitus type 2, continue NovoLog per sliding scale. - Sacral decub present on admission. Continue current wound care. Problems: Subjective 24 Hr Interval Summary Free Text/Dictation Patient has some phlegm in his throat and need suctioning Exam/Review of Systems Vital Signs Vitals Vital Signs Date Time Temp Pulse Resp B/P Pulse Ox O2 Delivery O2 Flow Rate FiO2 12/02/16 11:51 98.6 98 22 141/80 97 12/02/16 11:45 30 Intake and Output 12/01/16 12/01/16 12/02/16 15:00 23:00 07:00 Intake Total 390 ml 790 ml Balance 390 ml 790 ml Exam Constitutional: well developed Head: atraumatic, normocephalic Neck: supple Respiratory: diminished breath sounds Cardiovascular: regular rate and rhythm Gastrointestinal: non-tender, soft Results Result Diagram: 12/01/16 0635 12/01/16 0635 Results 24 hrs Laboratory Tests Test 12/01/16 12:57 12/01/16 16:48 12/01/16 19:55 12/02/16 00:29 Bedside Glucose 170 177 153 134 Test 12/02/16 05:07 12/02/16 08:49 Bedside Glucose 144 179 Medications Medications Current Medications Lidocaine (Lidoderm) 1 patch DAILY TD Last administered on 12/02/16t 08:58; Admin Dose 1 PATCH; Start 11/08/16 at 15:30 Acetaminophen (Tylenol Liquid) 325 mg Q4H PRN GTB MILD PAIN LEVEL 1-3 Last administered on 11/17/16 02:37; Admin Dose 325 MG; Start 11/08/16 at 15:30 Acetaminophen (Tylenol Liquid) 650 mg Q4H PRN GTB MODERATE PAIN LEVEL 4-6 Last administered on 11/21/16 20:54; Admin Dose 650 MG; Start 11/08/16 at 15:30 Ascorbic Acid (Vitamin C) 500 mg DAILY GTB Last administered on 12/02/16 09:00 ; Admin Dose 500 MG; Start 11/09/16 at 09:00 Atorvastatin Calcium (Lipitor) 40 mg QHS GTB Last administered on 12/01/16 20: 39; Admin Dose 40 MG; Start 11/08/16 at 21:00 Carvedilol (Coreg) 3.125 mg BID GTB Last administered on 12/01/16 20:40; Admin Dose 3.125 MG; Start 11/08/16 at 21:00 Duloxetine HCl (Cymbalta) 30 mg DAILY GTB Last administered on 12/02/16 08:59 ; Admin Dose 30 MG; Start 11/09/16 at 09:00 Fluticasone Propionate (Flonase 0.05% Nasal) 1 spray BID NASAL Last administered on 12/02/16 08:58; Admin Dose 1 SPRAY; Start 11/08/16 at 21:00 Lactobacillus Acidoph/Bulgaricus (Floranex) 1 tab DAILY GTB Last administered on 12/02/16 09:00; Admin Dose 1 TAB; Start 11/09/16 at 09:00 Sildenafil Citrate (Revatio) 20 mg BID GTB Last administered on 12/02/16 09:09 ; Admin Dose 20 MG; Start 11/08/16 at 21:00 Vitamin B Complex/ Vitamin C (Berocca) 1 cap DAILY GTB Last administered on 08:59; Admin Dose 1 CAP; Start 11/09/16 at 09:00 Miscellaneous Information 1 ea NOTE XX ; Start 11/08/16 at 16:00 Glucose (Glutose) 15 gm Q15M PRN PO DECREASED GLUCOSE; Start 11/08/16 at 16:00 Glucose (Glutose) 22.5 gm Q15M PRN PO DECREASED GLUCOSE; Start 11/08/16 at 16: 00 Dextrose (D50w Syringe) 25 ml Q15M PRN IV DECREASED GLUCOSE Last administered on 11/30/16 19:05; Admin Dose 25 ML; Start 11/08/16 at 16:00 Dextrose (D50w Syringe) 50 ml Q15M PRN IV DECREASED GLUCOSE; Start 11/08/16 at 16:00 Glucagon (Glucagen) 1 mg Q15M PRN IM DECREASED GLUCOSE; Start 11/08/16 at 16:00 Glucose (Glutose) 15 gm Q15M PRN BUCCAL DECREASED GLUCOSE; Start 11/08/16 at 16 :00 Acetaminophen/ Hydrocodone Bitart ([place] (5/325)) 1 tab Q4H PRN PO SEVERE PAIN 7-10 Last administered on 11/30/16 20:47; Admin Dose 1 TAB; Start 11/08/16 at 21:00 Morphine Sulfate (morphine) 2 mg Q4H PRN IV PAIN LEVEL 7-10 Last administered on 12/02/16 01:40; Admin Dose 2 MG; Start 11/09/16 at 11:00 Collagenase (Santyl) 1 applic DAILY TOP Last administered on 12/02/16 08:58; Admin Dose 1 APPLIC; Start 11/09/16 at 16:00 Lorazepam (Ativan) 1 mg Q6H PRN IV AGITATION/ANXIETY Last administered on 05:10; Admin Dose 1 MG; Start 11/09/16 at 20:30 Sodium Phosphate (Neutra-Phos) 250 mg BID GTB Last administered on 12/02/16 09 :00; Admin Dose 250 MG; Start 11/10/16 at 09:00 Calcium/Vitamin D (Oyster Shell/ Vit-D (500/200)) 1 tab DAILY GTB Last administered on 12/02/16 08:59; Admin Dose 1 TAB; Start 11/12/16 at 11:00 Prochlorperazine (Compazine) 5 mg Q6H PRN GTB NAUSEA AND/OR VOMITING Last administered on 11/28/16 10:57; Admin Dose 5 MG; Start 11/17/16 at 17:30 Insulin Glargine (Lantus) 16 unit DAILY SC Last administered on 12/02/16 08:54 ; Admin Dose 16 UNIT; Start 11/24/16 at 09:00 Diagnostic Test (Pha) (Accu-Chek) 1 ea 02 XX Last administered on 11/30/16 02: 14; Admin Dose 1 EA; Start 11/24/16 at 02:00 Insulin Aspart (Novolog Insulin Pen) NOVOLOG *MILD* ALGORITHM Q4 SC Last administered on 12/02/16 08:51; Admin Dose 1 UNIT; Start 11/23/16 at 17:00 Lansoprazole (Prevacid) 30 mg BID@06,18 GTB Last administered on 12/02/16 05: 10; Admin Dose 30 MG; Start 11/29/16 at 18:00 LESLIE PEDROZA Dec 02, 2016 12:30
--- NOTE | 2016-12-02 15:16 | CONS ---
Date/Time of Note Date/Time of Note DATE: 12/02/16 TIME: 15:14 Assessment/Plan Assessment/Plan Additional Assessment/Plan Ventilator settings; AC of 14, tidal volume 500, PEEP of 5, 30% FiO2. Assessment recommendations; next 1. Patient admitted for UTI and sepsis status post treatment now 2. Chronic respiratory failure. 3. Renal failure, on hemodialysis. 4. History of diabetes and hypertension. Continue current treatment. Patient awaiting discharge to [facility]. Consultation Date/Type/Reason Admit Date/Time Nov 08, 2016 at 10:56 Initial Consult Date 11/08/16 Type of Consultation: Pulmonary Referring Provider: GRACIE KATHLEEN 24 HR Interval Summary Free Text/Dictation Patient condition remains stable. Remains awake alert. Has remained hemodynamically stable. Exam; elderly male, on ventilator via tracheostomy awake and alert. Exam/Review of Systems Vital Signs Vitals Vital Signs Date Time Temp Pulse Resp B/P Pulse Ox O2 Delivery O2 Flow Rate FiO2 12/02/16 13:16 96 12/02/16 13:15 20 100 30 12/02/16 11:51 98.6 141/80 Intake and Output 12/01/16 12/01/16 12/02/16 15:00 23:00 07:00 Intake Total 390 ml 790 ml Balance 390 ml 790 ml Exam HEENT exam is; supple neck, no JVD. No lymphadenopathy. Midline trachea. No thyromegaly. Tracheostomy placed with clean insertion site. Chest examined; clear to auscultation. S1-S2 audible, no murmurs. Regular rhythm. Abdomen examination; soft, nontender. No organomegaly. Bowel sounds audible. G-tube in place. Extremity exam is; no peripheral edema. There is a well-healed left below-knee amputation stump. LOGISTICS PROJECT MANAGER examination a micro patient is awake alert follows simple commands able to move both upper and right lower extremities. Results Result Diagram: 12/01/16 0635 12/01/16 0635 Results 24 hrs Laboratory Tests Test 12/01/16 16:48 12/01/16 19:55 12/02/16 00:29 12/02/16 05:07 Bedside Glucose 177 153 134 144 Test 12/02/16 08:49 12/02/16 12:39 Bedside Glucose 179 181 Medications Medications Current Medications Lidocaine (Lidoderm) 1 patch DAILY TD Last administered on 12/02/16 08:58; Admin Dose 1 PATCH; Start 11/08/16 at 15:30 Acetaminophen (Tylenol Liquid) 325 mg Q4H PRN GTB MILD PAIN LEVEL 1-3 Last administered on 11/17/16 02:37; Admin Dose 325 MG; Start 11/08/16 at 15:30 Acetaminophen (Tylenol Liquid) 650 mg Q4H PRN GTB MODERATE PAIN LEVEL 4-6 Last administered on 11/21/16 20:54; Admin Dose 650 MG; Start 11/08/16 at 15:30 Ascorbic Acid (Vitamin C) 500 mg DAILY GTB Last administered on 12/02/16 09:00 ; Admin Dose 500 MG; Start 11/09/16 at 09:00 Atorvastatin Calcium (Lipitor) 40 mg QHS GTB Last administered on 12/01/16 20: 39; Admin Dose 40 MG; Start 11/08/16 at 21:00 Carvedilol (Coreg) 3.125 mg BID GTB Last administered on 12/01/16 20:40; Admin Dose 3.125 MG; Start 11/08/16 at 21:00 Duloxetine HCl (Cymbalta) 30 mg DAILY GTB Last administered on 12/02/16 08:59 ; Admin Dose 30 MG; Start 11/09/16 at 09:00 Fluticasone Propionate (Flonase 0.05% Nasal) 1 spray BID NASAL Last administered on 12/02/16 08:58; Admin Dose 1 SPRAY; Start 11/08/16 at 21:00 Lactobacillus Acidoph/Bulgaricus (Floranex) 1 tab DAILY GTB Last administered on 12/02/16 09:00; Admin Dose 1 TAB; Start 11/09/16 at 09:00 Sildenafil Citrate (Revatio) 20 mg BID GTB Last administered on 12/02/16 09:09 ; Admin Dose 20 MG; Start 11/08/16 at 21:00 Vitamin B Complex/ Vitamin C (Berocca) 1 cap DAILY GTB Last administered on 08:59; Admin Dose 1 CAP; Start 11/09/16 at 09:00 Miscellaneous Information 1 ea NOTE XX ; Start 11/08/16 at 16:00 Glucose (Glutose) 15 gm Q15M PRN PO DECREASED GLUCOSE; Start 11/08/16 at 16:00 Glucose (Glutose) 22.5 gm Q15M PRN PO DECREASED GLUCOSE; Start 11/08/16 at 16: 00 Dextrose (D50w Syringe) 25 ml Q15M PRN IV DECREASED GLUCOSE Last administered on 11/30/16 19:05; Admin Dose 25 ML; Start 11/08/16 at 16:00 Dextrose (D50w Syringe) 50 ml Q15M PRN IV DECREASED GLUCOSE; Start 11/08/16 at 16:00 Glucagon (Glucagen) 1 mg Q15M PRN IM DECREASED GLUCOSE; Start 11/08/16 at 16:00 Glucose (Glutose) 15 gm Q15M PRN BUCCAL DECREASED GLUCOSE; Start 11/08/16 at 16 :00 Acetaminophen/ Hydrocodone Bitart ([place] (5/325)) 1 tab Q4H PRN PO SEVERE PAIN 7-10 Last administered on 11/30/16 20:47; Admin Dose 1 TAB; Start 11/08/16 at 21:00 Morphine Sulfate (morphine) 2 mg Q4H PRN IV PAIN LEVEL 7-10 Last administered on 12/02/16 01:40; Admin Dose 2 MG; Start 11/09/16 at 11:00 Collagenase (Santyl) 1 applic DAILY TOP Last administered on 12/02/16 08:58; Admin Dose 1 APPLIC; Start 11/09/16 at 16:00 Lorazepam (Ativan) 1 mg Q6H PRN IV AGITATION/ANXIETY Last administered on 14:16; Admin Dose 1 MG; Start 11/09/16 at 20:30 Sodium Phosphate (Neutra-Phos) 250 mg BID GTB Last administered on 12/02/16 09 :00; Admin Dose 250 MG; Start 11/10/16 at 09:00 Calcium/Vitamin D (Oyster Shell/ Vit-D (500/200)) 1 tab DAILY GTB Last administered on 12/02/16 08:59; Admin Dose 1 TAB; Start 11/12/16 at 11:00 Prochlorperazine (Compazine) 5 mg Q6H PRN GTB NAUSEA AND/OR VOMITING Last administered on 11/28/16 10:57; Admin Dose 5 MG; Start 11/17/16 at 17:30 Insulin Glargine (Lantus) 16 unit DAILY SC Last administered on 12/02/16 08:54 ; Admin Dose 16 UNIT; Start 11/24/16 at 09:00 Diagnostic Test (Pha) (Accu-Chek) 1 ea 02 XX Last administered on 11/30/16 02: 14; Admin Dose 1 EA; Start 11/24/16 at 02:00 Insulin Aspart (Novolog Insulin Pen) NOVOLOG *MILD* ALGORITHM Q4 SC Last administered on 12/02/16 12:42; Admin Dose 2 UNIT; Start 11/23/16 at 17:00 Lansoprazole (Prevacid) 30 mg BID@,18 GTB Last administered on 12/02/16 05: 10; Admin Dose 30 MG; Start 11/29/16 at 18:00 ELVI BLANK Dec 02, 2016 15:16
[2016-12-02] MEDS: ATORVASTATIN 40 MG TAB GTB SCH (20:59)
[2016-12-03] VITALS (28 sets, daily range): BP systolic 90–114; BP diastolic 50–62; PULSE 88–122; RESP 14–24
[2016-12-03] MEDS: morphine 2 MG INJ IV PRN ×4 (00:48→21:39)
[2016-12-03] MEDS: INSULIN ASPART [NOVOLOG] 3 ML PEN SC SCH ×6 (01:00→21:00)
[2016-12-03] MEDS: ACCU-CHEK XX SCH (01:34)
[2016-12-03] MEDS: LANSOPRAZOLE 30 MG CAP GTB SCH ×2 (05:23→16:50)
[2016-12-03] MEDS: SILDENAFIL 20 MG TAB GTB SCH ×2 (09:00→19:41)
[2016-12-03] MEDS: CALCIUM/VITAMIN D (500/200) TAB GTB SCH (09:03)
[2016-12-03] MEDS: VITAMIN B COMPLEX/VIT C CAP GTB SCH (09:03)
[2016-12-03] MEDS: ASCORBIC ACID 500 MG TAB GTB SCH (09:03)
[2016-12-03] MEDS: NEUTRA-PHOS 250 MG PACKET GTB SCH ×2 (09:03→19:42)
[2016-12-03] MEDS: LACTOBACILLUS CHEW TAB GTB SCH (09:03)
[2016-12-03] MEDS: DULOXETINE 30 MG CAP DR GTB SCH (09:03)
[2016-12-03] MEDS: LIDOCAINE 5% PATCH TD SCH (09:04)
[2016-12-03] MEDS: FLUTICASONE 0.05% 16 GM NAS SPRAY NASAL SCH ×2 (09:04→19:42)
[2016-12-03] MEDS: COLLAGENASE 30 GM TUBE TOP SCH (09:05)
[2016-12-03] MEDS: INSULIN GLARGINE [LANtus] 3 ML PEN SC SCH (09:12)
--- NOTE | 2016-12-03 09:24 | PN ---
DATE: 12/03/2016 SUBJECTIVE: The patient is stable, no acute events overnight. No fevers, chills, nausea or vomitin g. No shortness of breath. OBJECTIVE: VITAL SIGNS: Blood pressure 114/54, respirations 19, pulse 94, temperature 98.0. HEENT: Head is normocephalic. NECK: Supple. HEART: Regular rate. LUNGS: Show diminished breath sounds at the base. ABDOMEN: Soft, nontender to palpation. No rebound or guarding. EXTREMITIES: Negative for clubbing, cyanosis, no edema. DERMATOLOGIC: No rashes. MUSCULOSKELETAL: No joint effusions. NEUROLOGIC: No change in exam. MEDICATIONS: Have been reviewed. LABORATORY DATA: Has been reviewed. No new labs. ASSESSMENT AND PLAN: 1. End-stage renal disease. The patient is on dialysis Saturday, Saturday, Saturday. Plan for dialys is today for 3 hours and 3 K bath, calcium 2.5. 2. Anemia. Hemoglobin level, stable. Continue Epogen. 3. Mineral bone disorder. Continue to monitor calcium and phosphorus levels. 4. Sepsis secondary to pneumonia. The patient has completed antibiotic course. 5. Ventilatory-dependent respiratory failure. Vent settings reviewed. Continue to monitor. Follo w up with Pulmonary. 6. Volume overload. Continue ultrafiltration with hemodialysis. 7. Dysphagia, status post percutaneous endoscopic gastrostomy. Continue tube feeding. 8. Coronary artery disease. Continue medical management. 9. Diabetes. Continue Accu-Cheks and sliding scale. 10. Congestive heart failure. Continue current medical management and ultrafiltration dialysis. 11. Sacral decubitus wound. Continue local wound care. Dictated By: SARAHI RINALDI/OLESYA Conf#: [id number] DID#: [id number]
--- NOTE | 2016-12-03 14:13 | PN ---
Date/Time of Note Date/Time of Note DATE: 12/03/16 TIME: 14:08 Assessment/Plan VTE Prophylaxis VTE Prophylaxis Intervention: SCD's Lines/Catheters IV [facility]from [facility] Urinary Cath still in place: No Assessment/Plan Chief Complaint/Hosp Course Assessment/Plan - Esophagitis per EGD. Continue Protonix Dr. Hernandez is following in gastroenterology consultation. - Anemia of chronic disease, on Epogen, continue to monitor hemoglobin and hematocrit, transfuse as needed. - Ascites, SBP ruled out, Status post paracentesis 11/14, ascitic fluid culture negative. - Status post sepsis. Dr. Benjamin deluna is following in infection disease consultation. - End-stage renal disease, hemodialysis dependent. Continue hemodialysis per nephrology. - Chronic respiratory failure with tracheostomy. Dr. Sahu is following in pulmonology consultation. - Coronary artery disease with history of PCI. - Diastolic congestive heart failure, continue to remove fluids with hemodialysis. - Pulmonary hypertension - Peripheral vascular disease, status post left BKA. - Diabetes mellitus type 2, continue NovoLog per sliding scale. - Sacral decub present on admission. Continue current wound care. Pending fpc facility placement. Further recommendations based on clinical course. Plan of care discussed with Dr. Miramontes. Problems: Subjective 24 Hr Interval Summary Free Text/Dictation Patient remains afebrile, tolerates G-tube feeding well per RN, no nausea vomiting, patient is awake alert, comfortable on vent support via tracheostomy. Exam/Review of Systems Vital Signs Vitals Vital Signs Date Time Temp Pulse Resp B/P Pulse Ox O2 Delivery O2 Flow Rate FiO2 12/03/16 13:20 100 21 96 30 12/03/16 11:02 97.7 90/50 Intake and Output 12/02/16 12/02/16 12/03/16 15:00 23:00 07:00 Intake Total 680 ml 870 ml Balance 680 ml 870 ml Exam GENERAL: Well-developed, well-nourished male, currently on vent support via trach. HEENT: Head is atraumatic, normocephalic. PERRLA. NECK: Supple. Tracheostomy at the base of the neck. LUNGS: Slightly diminished at the bases. Clear in the upper lobes. HEART: Normal S1, S2. No murmurs, gallops, clicks, rubs noted. ABDOMEN: Protuberant, soft, nondistended, nontender. G-tube in place. EXTREMITIES: The patient is status post left BKA. Right lower extremity with mild edema. The patient has a left upper extremity arteriovenous fistula with palpable thrill and audible bruit. SKIN: No rash, petechiae noted. Sacral decubitus ulcer. NEUROLOGIC: The patient is awake, alert. Results Result Diagram: 12/01/16 0635 12/01/16 0635 Results 24 hrs Laboratory Tests Test 12/02/16 16:47 12/02/16 20:09 12/03/16 00:47 12/03/16 04:24 Bedside Glucose 116 108 113 146 Test 12/03/16 09:02 12/03/16 13:34 Bedside Glucose 190 197 Medications Medications Current Medications Lidocaine (Lidoderm) 1 patch DAILY TD Last administered on 12/03/16 09:04; Admin Dose 1 PATCH; Start 11/08/16 at 15:30 Acetaminophen (Tylenol Liquid) 325 mg Q4H PRN GTB MILD PAIN LEVEL 1-3 Last administered on 11/17/16 02:37; Admin Dose 325 MG; Start 11/08/16 at 15:30 Acetaminophen (Tylenol Liquid) 650 mg Q4H PRN GTB MODERATE PAIN LEVEL 4-6 Last administered on 11/21/16 20:54; Admin Dose 650 MG; Start 11/08/16 at 15:30 Ascorbic Acid (Vitamin C) 500 mg DAILY GTB Last administered on 12/03/16 09:03 ; Admin Dose 500 MG; Start 11/09/16 at 09:00 Atorvastatin Calcium (Lipitor) 40 mg QHS GTB Last administered on 12/02/16 20: 59; Admin Dose 40 MG; Start 11/08/16 at 21:00 Carvedilol (Coreg) 3.125 mg BID GTB Last administered on 12/02/16 20:59; Admin Dose 3.125 MG; Start 11/08/16 at 21:00 Duloxetine HCl (Cymbalta) 30 mg DAILY GTB Last administered on 12/03/16 09:03 ; Admin Dose 30 MG; Start 11/09/16 at 09:00 Fluticasone Propionate (Flonase 0.05% Nasal) 1 spray BID NASAL Last administered on 12/03/16 09:04; Admin Dose 1 SPRAY; Start 11/08/16 at 21:00 Lactobacillus Acidoph/Bulgaricus (Floranex) 1 tab DAILY GTB Last administered on 12/03/16 09:03; Admin Dose 1 TAB; Start 11/09/16 at 09:00 Sildenafil Citrate (Revatio) 20 mg BID GTB Last administered on 12/02/16 21:00 ; Admin Dose 20 MG; Start 11/08/16 at 21:00 Vitamin B Complex/ Vitamin C (Berocca) 1 cap DAILY GTB Last administered on 09:03; Admin Dose 1 CAP; Start 11/09/16 at 09:00 Miscellaneous Information 1 ea NOTE XX ; Start 11/08/16 at 16:00 Glucose (Glutose) 15 gm Q15M PRN PO DECREASED GLUCOSE; Start 11/08/16 at 16:00 Glucose (Glutose) 22.5 gm Q15M PRN PO DECREASED GLUCOSE; Start 11/08/16 at 16: 00 Dextrose (D50w Syringe) 25 ml Q15M PRN IV DECREASED GLUCOSE Last administered on 11/30/16 19:05; Admin Dose 25 ML; Start 11/08/16 at 16:00 Dextrose (D50w Syringe) 50 ml Q15M PRN IV DECREASED GLUCOSE; Start 11/08/16 at 16:00 Glucagon (Glucagen) 1 mg Q15M PRN IM DECREASED GLUCOSE; Start 11/08/16 at 16:00 Glucose (Glutose) 15 gm Q15M PRN BUCCAL DECREASED GLUCOSE; Start 11/08/16 at 16 :00 Acetaminophen/ Hydrocodone Bitart ([place] (5/325)) 1 tab Q4H PRN PO SEVERE PAIN 7-10 Last administered on 11/30/16 20:47; Admin Dose 1 TAB; Start 11/08/16 at 21:00 Morphine Sulfate (morphine) 2 mg Q4H PRN IV PAIN LEVEL 7-10 Last administered on 12/03/16 11:21; Admin Dose 2 MG; Start 11/09/16 at 11:00 Collagenase (Santyl) 1 applic DAILY TOP Last administered on 12/03/16 09:05; Admin Dose 1 APPLIC; Start 11/09/16 at 16:00 Lorazepam (Ativan) 1 mg Q6H PRN IV AGITATION/ANXIETY Last administered on 14:16; Admin Dose 1 MG; Start 11/09/16 at 20:30 Sodium Phosphate (Neutra-Phos) 250 mg BID GTB Last administered on 12/03/16 09 :03; Admin Dose 250 MG; Start 11/10/16 at 09:00 Calcium/Vitamin D (Oyster Shell/ Vit-D (500/200)) 1 tab DAILY GTB Last administered on 12/03/16 09:03; Admin Dose 1 TAB; Start 11/12/16 at 11:00 Prochlorperazine (Compazine) 5 mg Q6H PRN GTB NAUSEA AND/OR VOMITING Last administered on 11/28/16 10:57; Admin Dose 5 MG; Start 11/17/16 at 17:30 Insulin Glargine (Lantus) 16 unit DAILY SC Last administered on 12/03/16 09:12 ; Admin Dose 16 UNIT; Start 11/24/16 at 09:00 Diagnostic Test (Pha) (Accu-Chek) 1 ea 02 XX Last administered on 11/30/16 02: 14; Admin Dose 1 EA; Start 11/24/16 at 02:00 Insulin Aspart (Novolog Insulin Pen) NOVOLOG *MILD* ALGORITHM Q4 SC Last administered on 12/03/16 13:40; Admin Dose 2 UNIT; Start 11/23/16 at 17:00 Lansoprazole (Prevacid) 30 mg BID@ GTB Last administered on 12/03/16 05: 23; Admin Dose 30 MG; Start 11/29/16 at 18:00 MARY DOMINGUEZ Dec 03, 2016 14:13
[2016-12-03] MEDS: EPOETIN 10000 UNITS/1 ML INJ (ESRD) SC SCH (15:58)
--- NOTE | 2016-12-03 16:46 | PN ---
Date/Time of Note Date/Time of Note DATE: 12/03/16 TIME: 16:46 Assessment/Plan VTE Prophylaxis VTE Prophylaxis Intervention: SCD's Lines/Catheters IV Catheter Type (from Nrsg): Saline Lock Urinary Cath still in place: No Assessment/Plan Assessment/Plan Paroxysmal atrial tachycardia Possible GI bleed Respiratory failure status post tracheostomy Diastolic congestive heart failure End-stage renal disease on hemodialysis CAD with history of PCI Diabetes Peripheral arterial disease with history of amputation Pulmonary hypertension Hypotension, improved -Blood pressure trend improving, holding parameters on coreg and sildenafil. -fluid management via hemodialysis as per our nephrology colleagues -no new cv reccomendations Subjective 24 Hr Interval Summary Free Text/Dictation the patient is stable Exam/Review of Systems Vital Signs Vitals Vital Signs Date Time Temp Pulse Resp B/P Pulse Ox O2 Delivery O2 Flow Rate FiO2 12/03/16 16:15 103 12/03/16 15:15 18 97 30 12/03/16 15:15 98.0 108/57 Intake and Output 12/02/16 12/02/16 12/03/16 15:00 23:00 07:00 Intake Total 680 ml 870 ml Balance 680 ml 870 ml Results Result Diagram: 12/01/16 0635 12/01/16 0635 Results 24 hrs Laboratory Tests Test 12/02/16 16:47 12/02/16 20:09 12/03/16 00:47 12/03/16 04:24 Bedside Glucose 116 108 113 146 Test 12/03/16 09:02 12/03/16 13:34 12/03/16 16:42 Bedside Glucose 190 197 193 Medications Medications Current Medications Lidocaine (Lidoderm) 1 patch DAILY TD Last administered on 12/03/16 09:04; Admin Dose 1 PATCH; Start 11/08/16 at 15:30 Acetaminophen (Tylenol Liquid) 325 mg Q4H PRN GTB MILD PAIN LEVEL 1-3 Last administered on 11/17/16 02:37; Admin Dose 325 MG; Start 11/08/16 at 15:30 Acetaminophen (Tylenol Liquid) 650 mg Q4H PRN GTB MODERATE PAIN LEVEL 4-6 Last administered on 11/21/16 20:54; Admin Dose 650 MG; Start 11/08/16 at 15:30 Ascorbic Acid (Vitamin C) 500 mg DAILY GTB Last administered on 12/03/16 09:03 ; Admin Dose 500 MG; Start 11/09/16 at 09:00 Atorvastatin Calcium (Lipitor) 40 mg QHS GTB Last administered on 12/02/16 20: 59; Admin Dose 40 MG; Start 11/08/16 at 21:00 Carvedilol (Coreg) 3.125 mg BID GTB Last administered on 12/02/16 20:59; Admin Dose 3.125 MG; Start 11/08/16 at 21:00 Duloxetine HCl (Cymbalta) 30 mg DAILY GTB Last administered on 12/03/16 09:03 ; Admin Dose 30 MG; Start 11/09/16 at 09:00 Fluticasone Propionate (Flonase 0.05% Nasal) 1 spray BID NASAL Last administered on 12/03/16 09:04; Admin Dose 1 SPRAY; Start 11/08/16 at 21:00 Lactobacillus Acidoph/Bulgaricus (Floranex) 1 tab DAILY GTB Last administered on 12/03/16 09:03; Admin Dose 1 TAB; Start 11/09/16 at 09:00 Sildenafil Citrate (Revatio) 20 mg BID GTB Last administered on 12/02/16 21:00 ; Admin Dose 20 MG; Start 11/08/16 at 21:00 Vitamin B Complex/ Vitamin C (Berocca) 1 cap DAILY GTB Last administered on 09:03; Admin Dose 1 CAP; Start 11/09/16 at 09:00 Miscellaneous Information 1 ea NOTE XX ; Start 11/08/16 at 16:00 Glucose (Glutose) 15 gm Q15M PRN PO DECREASED GLUCOSE; Start 11/08/16 at 16:00 Glucose (Glutose) 22.5 gm Q15M PRN PO DECREASED GLUCOSE; Start 11/08/16 at 16: 00 Dextrose (D50w Syringe) 25 ml Q15M PRN IV DECREASED GLUCOSE Last administered on 11/30/16 19:05; Admin Dose 25 ML; Start 11/08/16 at 16:00 Dextrose (D50w Syringe) 50 ml Q15M PRN IV DECREASED GLUCOSE; Start 11/08/16 at 16:00 Glucagon (Glucagen) 1 mg Q15M PRN IM DECREASED GLUCOSE; Start 11/08/16 at 16:00 Glucose (Glutose) 15 gm Q15M PRN BUCCAL DECREASED GLUCOSE; Start 11/08/16 at 16 :00 Acetaminophen/ Hydrocodone Bitart ([place] (5/325)) 1 tab Q4H PRN PO SEVERE PAIN 7-10 Last administered on 11/30/16 20:47; Admin Dose 1 TAB; Start 11/08/16 at 21:00 Morphine Sulfate (morphine) 2 mg Q4H PRN IV PAIN LEVEL 7-10 Last administered on 12/03/16 11:21; Admin Dose 2 MG; Start 11/09/16 at 11:00 Collagenase (Santyl) 1 applic DAILY TOP Last administered on 12/03/16 09:05; Admin Dose 1 APPLIC; Start 11/09/16 at 16:00 Lorazepam (Ativan) 1 mg Q6H PRN IV AGITATION/ANXIETY Last administered on 14:16; Admin Dose 1 MG; Start 11/09/16 at 20:30 Sodium Phosphate (Neutra-Phos) 250 mg BID GTB Last administered on 12/03/16 09 :03; Admin Dose 250 MG; Start 11/10/16 at 09:00 Calcium/Vitamin D (Oyster Shell/ Vit-D (500/200)) 1 tab DAILY GTB Last administered on 12/03/16 09:03; Admin Dose 1 TAB; Start 11/12/16 at 11:00 Prochlorperazine (Compazine) 5 mg Q6H PRN GTB NAUSEA AND/OR VOMITING Last administered on 11/28/16 10:57; Admin Dose 5 MG; Start 11/17/16 at 17:30 Insulin Glargine (Lantus) 16 unit DAILY SC Last administered on 12/03/16 09:12 ; Admin Dose 16 UNIT; Start 11/24/16 at 09:00 Diagnostic Test (Pha) (Accu-Chek) 1 ea 02 XX Last administered on 11/30/16 02: 14; Admin Dose 1 EA; Start 11/24/16 at 02:00 Insulin Aspart (Novolog Insulin Pen) NOVOLOG *MILD* ALGORITHM Q4 SC Last administered on 12/03/16 13:40; Admin Dose 2 UNIT; Start 11/23/16 at 17:00 Lansoprazole (Prevacid) 30 mg BID@,18 GTB Last administered on 12/03/16 05: 23; Admin Dose 30 MG; Start 11/29/16 at 18:00 MARIANA [place] MD Dec 03, 2016 16:46
[2016-12-03] MEDS: ATORVASTATIN 40 MG TAB GTB SCH (19:40)
[2016-12-03] MEDS: HYDROCODONE/APAP (5/325) TAB PO PRN (19:41)
[2016-12-03] MEDS: LORAZEPAM 2 MG INJ IV PRN (19:41)
[2016-12-04] VITALS (23 sets, daily range): BP systolic 93–137; BP diastolic 51–83; PULSE 94–114; RESP 18–24
[2016-12-04] MEDS: INSULIN ASPART [NOVOLOG] 3 ML PEN SC SCH ×6 (01:00→21:00)
[2016-12-04] MEDS: morphine 2 MG INJ IV PRN ×4 (01:35→17:09)
[2016-12-04] MEDS: ACCU-CHEK XX SCH (01:38)
[2016-12-04] MEDS: LORAZEPAM 2 MG INJ IV PRN ×3 (02:58→21:49)
[2016-12-04] MEDS: LANSOPRAZOLE 30 MG CAP GTB SCH ×2 (04:37→18:07)
[2016-12-04 06:34] LABS: ADD SCAN DIFF NO
[2016-12-04 06:39] LABS: BASOPHILS % 0.5 % (0.0-2.0); EOSINOPHILS # 0.2 10^3/ul (0.0-0.5); EOSINOPHILS % 2.7 % (0.0-7.0); HEMATOCRIT 33.9 % (42.0-52.0); HEMOGLOBIN 10.3 g/dl (14.0-18.0); LYMPHOCYTES # 1.1 10^3/ul (0.8-2.9); LYMPHOCYTES % 12.4 % (15.0-51.0); MEAN CORPUSCULAR HEMOGLOBIN 30.7 pg (29.0-33.0); MEAN CORPUSCULAR HGB CONC 30.4 g/dl (32.0-37.0); MEAN CORPUSCULAR VOLUME 101.2 fl (82.0-101.0); MONOCYTE # 1.2 10^3/ul (0.3-0.9); MONOCYTES % 13.6 % (0.0-11.0); NEUTROPHIL # 6.1 10^3/ul (1.6-7.5); NEUTROPHILS % 70.3 % (39.0-77.0); PLATELET COUNT 225 10^3/UL (140-415); RED BLOOD COUNT 3.35 10^6/ul (4.70-6.10); RED CELL DISTRIBUTION WIDTH 18.1 % (11.5-14.5); WHITE BLOOD COUNT 8.6 10^3/ul (4.8-10.8)
[2016-12-04 07:01] LABS: POTASSIUM 3.6 mmol/L (3.5-5.1)
[2016-12-04 07:03] LABS: CREATININE 2.57 mg/dl (0.61-1.24)
[2016-12-04 07:04] LABS: CALCIUM 7.9 mg/dl (8.4-10.2)
[2016-12-04] MEDS: LIDOCAINE 5% PATCH TD SCH (09:00)
[2016-12-04] MEDS: SILDENAFIL 20 MG TAB GTB SCH ×2 (09:00→21:00)
[2016-12-04] MEDS: CALCIUM/VITAMIN D (500/200) TAB GTB SCH (09:37)
[2016-12-04] MEDS: VITAMIN B COMPLEX/VIT C CAP GTB SCH (09:37)
[2016-12-04] MEDS: ASCORBIC ACID 500 MG TAB GTB SCH (09:37)
[2016-12-04] MEDS: DULOXETINE 30 MG CAP DR GTB SCH (09:37)
[2016-12-04] MEDS: LACTOBACILLUS CHEW TAB GTB SCH (09:37)
[2016-12-04] MEDS: NEUTRA-PHOS 250 MG PACKET GTB SCH ×2 (09:37→21:45)
[2016-12-04] MEDS: FLUTICASONE 0.05% 16 GM NAS SPRAY NASAL SCH ×2 (09:39→21:47)
[2016-12-04] MEDS: COLLAGENASE 30 GM TUBE TOP SCH (09:40)
[2016-12-04] MEDS: INSULIN GLARGINE [LANtus] 3 ML PEN SC SCH (09:59)
--- NOTE | 2016-12-04 10:51 | PN ---
DATE: 12/04/2016 SUBJECTIVE: The patient is stable. No acute events overnight. The patient was dialyzed yesterday , tolerated well. OBJECTIVE: VITAL SIGNS: Blood pressure 108/51, respirations 19, pulse 77, temperature 98.2. HEENT: Head is normocephalic. NECK: Supple. HEART: Regular rate. LUNGS: Show diminished breath sounds at the base. ABDOMEN: Soft, nontender to palpation. No rebound or guarding. EXTREMITIES: Negative for clubbing, cyanosis, positive edema in the right lower leg. Left BKA is n oted. DERMATOLOGIC: No rashes. MUSCULOSKELETAL: No joint effusions. NEUROLOGIC: No change in exam. MEDICATIONS: The patient's medications have been reviewed. LABORATORY DATA: Shows sodium 142, potassium 3.6, chloride 101, BUN 40, creatinine 2.57. White cou nt 8.6, hemoglobin 10.3, hematocrit 33.9, platelet count 225. ASSESSMENT AND PLAN: 1. End-stage renal disease. The patient is on dialysis Saturday, Saturday, Saturday. Plan for dialys is tomorrow for 3 hours and 3 K bath, calcium 2.5. 2. Anemia. Hemoglobin levels are stable. Continue Epogen. 3. Mineral bone disorder, continue to monitor calcium and phosphorus levels. 4. Ventilator dependent respiratory failure. Ventilator settings reviewed. Continue to monitor. Follow up with pulmonary. 5. Volume overload. Continue ultrafiltration dialysis. 6. Dysphagia, status post percutaneous endoscopic gastrostomy tube. Continue tube feeding. 9. Coronary artery disease. Continue medical management. 10. Diabetes. Continue Accu-Cheks and sliding scale. 11. Congestive heart failure. Continue current medical management. 12. Sepsis. The patient has completed antibiotic course. 13. Sacral decubitus wound. Continue wound care. Dictated By: SARAHI EMERSON DO NR/NTS Conf#: [id number] DID#: [id number]
--- NOTE | 2016-12-04 10:52 | CONS ---
Date/Time of Note Date/Time of Note DATE: 12/04/16 TIME: 10:49 Assessment/Plan Assessment/Plan Additional Assessment/Plan Ventilator settings; AC of 14, tidal volume 500, PEEP of 5, 30% FiO2. Assessment recommendations; 1. Patient admitted for UTI and sepsis off antibiotics now with stable clinical status. 2. Chronic respiratory failure, ventilator dependent. 3. End-stage renal disease on hemodialysis. 4. Hypertension. 5. Pulmonary hypertension. Continue current supportive care. Patient awaiting transfer to [facility]. Consultation Date/Type/Reason Admit Date/Time Nov 08, 2016 at 10:56 Initial Consult Date 11/08/16 Type of Consultation: Pulmonary Referring Provider: GRACIE KATHLEEN 24 HR Interval Summary Free Text/Dictation Patient condition remains stable. Remains awake and alert. Has remained hemodynamically stable. Abdomen exam; elderly male, on ventilator via tracheostomy currently in no distress. Exam/Review of Systems Vital Signs Vitals Vital Signs Date Time Temp Pulse Resp B/P Pulse Ox O2 Delivery O2 Flow Rate FiO2 12/04/16 09:20 100 20 93 30 12/04/16 07:37 98.2 108/51 Intake and Output 12/03/16 12/03/16 12/04/16 15:00 23:00 07:00 Intake Total 500 ml 600 ml 600 ml Output Total 3500 ml Balance -3000 ml 600 ml 600 ml Exam HEENT examined; supple neck, no JVD. No lymphadenopathy. Midline trachea. Tracheostomy in place. Insertion site is clean. Chest exam is; clear to auscultation. S1-S2 audible, no murmurs. Regular rhythm. Abdomen examination; soft, G-tube in place. Nontender. No organomegaly. Bowel sounds audible. Extremity exam is; no peripheral edema. Patient is a well-healed left below- knee amputation stump. COBOL ENGINEER exam is; patient is awake alert able to move both upper and right lower extremities on command Results Result Diagram: 12/04/16 0538 12/04/16 0538 Results 24 hrs Laboratory Tests Test 12/03/16 13:34 12/03/16 16:42 12/03/16 21:44 12/04/16 00:55 Bedside Glucose 197 193 157 124 Test 12/04/16 04:35 12/04/16 05:38 12/04/16 09:35 Bedside Glucose 116 166 White Blood Count 8.6 Red Blood Count 3.35 L Hemoglobin 10.3 L Hematocrit 33.9 L Mean Corpuscular Volume 101.2 H Mean Corpuscular Hemoglobin 30.7 Mean Corpuscular Hemoglobin Concent 30.4 L Red Cell Distribution Width 18.1 H Platelet Count 225 Mean Platelet Volume 9.0 Neutrophils % 70.3 Lymphocytes % 12.4 L Monocytes % 13.6 H Eosinophils % 2.7 Basophils % 0.5 Nucleated Red Blood Cells % 0.0 Neutrophils # 6.1 Lymphocytes # 1.1 Monocytes # 1.2 H Eosinophils # 0.2 Basophils # 0.0 Nucleated Red Blood Cells # 0.0 Sodium Level 142 Potassium Level 3.6 Chloride Level 101 Carbon Dioxide Level 28 Anion Gap 17 H Blood Urea Nitrogen 40 H Creatinine 2.57 H Glucose Level 134 Calcium Level 7.9 L Medications Medications Current Medications Lidocaine (Lidoderm) 1 patch DAILY TD Last administered on 12/03/16 09:04; Admin Dose 1 PATCH; Start 11/08/16 at 15:30 Acetaminophen (Tylenol Liquid) 325 mg Q4H PRN GTB MILD PAIN LEVEL 1-3 Last administered on 11/17/16 02:37; Admin Dose 325 MG; Start 11/08/16 at 15:30 Acetaminophen (Tylenol Liquid) 650 mg Q4H PRN GTB MODERATE PAIN LEVEL 4-6 Last administered on 11/21/16 20:54; Admin Dose 650 MG; Start 11/08/16 at 15:30 Ascorbic Acid (Vitamin C) 500 mg DAILY GTB Last administered on 12/04/16 09:37 ; Admin Dose 500 MG; Start 11/09/16 at 09:00 Atorvastatin Calcium (Lipitor) 40 mg QHS GTB Last administered on 12/03/16 19: 40; Admin Dose 40 MG; Start 11/08/16 at 21:00 Carvedilol (Coreg) 3.125 mg BID GTB Last administered on 12/03/16 19:41; Admin Dose 3.125 MG; Start 11/08/16 at 21:00 Duloxetine HCl (Cymbalta) 30 mg DAILY GTB Last administered on 12/04/16 09:37 ; Admin Dose 30 MG; Start 11/09/16 at 09:00 Fluticasone Propionate (Flonase 0.05% Nasal) 1 spray BID NASAL Last administered on 12/04/16 09:39; Admin Dose 1 SPRAY; Start 11/08/16 at 21:00 Lactobacillus Acidoph/Bulgaricus (Floranex) 1 tab DAILY GTB Last administered on 12/04/16 09:37; Admin Dose 1 TAB; Start 11/09/16 at 09:00 Sildenafil Citrate (Revatio) 20 mg BID GTB Last administered on 12/02/16 21:00 ; Admin Dose 20 MG; Start 11/08/16 at 21:00 Vitamin B Complex/ Vitamin C (Berocca) 1 cap DAILY GTB Last administered on 09:37; Admin Dose 1 CAP; Start 11/09/16 at 09:00 Miscellaneous Information 1 ea NOTE XX ; Start 11/08/16 at 16:00 Glucose (Glutose) 15 gm Q15M PRN PO DECREASED GLUCOSE; Start 11/08/16 at 16:00 Glucose (Glutose) 22.5 gm Q15M PRN PO DECREASED GLUCOSE; Start 11/08/16 at 16: 00 Dextrose (D50w Syringe) 25 ml Q15M PRN IV DECREASED GLUCOSE Last administered on 11/30/16 19:05; Admin Dose 25 ML; Start 11/08/16 at 16:00 Dextrose (D50w Syringe) 50 ml Q15M PRN IV DECREASED GLUCOSE; Start 11/08/16 at 16:00 Glucagon (Glucagen) 1 mg Q15M PRN IM DECREASED GLUCOSE; Start 11/08/16 at 16:00 Glucose (Glutose) 15 gm Q15M PRN BUCCAL DECREASED GLUCOSE; Start 11/08/16 at 16 :00 Acetaminophen/ Hydrocodone Bitart ([place] (5/325)) 1 tab Q4H PRN PO SEVERE PAIN 7-10 Last administered on 12/03/16 19:41; Admin Dose 1 TAB; Start 11/08/16 at 21:00 Morphine Sulfate (morphine) 2 mg Q4H PRN IV PAIN LEVEL 7-10 Last administered on 12/04/16 01:47; Admin Dose 2 MG; Start 11/09/16 at 11:00 Collagenase (Santyl) 1 applic DAILY TOP Last administered on 12/04/16 09:40; Admin Dose 1 APPLIC; Start 11/09/16 at 16:00 Lorazepam (Ativan) 1 mg Q6H PRN IV AGITATION/ANXIETY Last administered on 02:58; Admin Dose 1 MG; Start 11/09/16 at 20:30 Sodium Phosphate (Neutra-Phos) 250 mg BID GTB Last administered on 12/04/16 09 :37; Admin Dose 250 MG; Start 11/10/16 at 09:00 Calcium/Vitamin D (Oyster Shell/ Vit-D (500/200)) 1 tab DAILY GTB Last administered on 12/04/16 09:37; Admin Dose 1 TAB; Start 11/12/16 at 11:00 Prochlorperazine (Compazine) 5 mg Q6H PRN GTB NAUSEA AND/OR VOMITING Last administered on 11/28/16 10:57; Admin Dose 5 MG; Start 11/17/16 at 17:30 Insulin Glargine (Lantus) 16 unit DAILY SC Last administered on 12/04/16 09:59 ; Admin Dose 16 UNIT; Start 11/24/16 at 09:00 Diagnostic Test (Pha) (Accu-Chek) 1 ea 02 XX Last administered on 11/30/16 02: 14; Admin Dose 1 EA; Start 11/24/16 at 02:00 Insulin Aspart (Novolog Insulin Pen) NOVOLOG *MILD* ALGORITHM Q4 SC Last administered on 12/04/16 09:58; Admin Dose 1 UNIT; Start 11/23/16 at 17:00 Lansoprazole (Prevacid) 30 mg BID@ GTB Last administered on 12/04/16 04: 37; Admin Dose 30 MG; Start 11/29/16 at 18:00 ELVI BLANK Dec 04, 2016 10:52
--- NOTE | 2016-12-04 14:15 | PN ---
Date/Time of Note Date/Time of Note DATE: 12/04/16 TIME: 14:14 Assessment/Plan VTE Prophylaxis VTE Prophylaxis Intervention: SCD's Lines/Catheters IV Catheter Type (from [facility]): Peripheral IV Urinary Cath still in place: No Assessment/Plan Chief Complaint/Hosp Course Assessment/Plan - Esophagitis per EGD. Continue Protonix Dr. Hernandez is following in gastroenterology consultation. - Anemia of chronic disease, on Epogen, continue to monitor hemoglobin and hematocrit, transfuse as needed. - Ascites, SBP ruled out, Status post paracentesis 11/14, ascitic fluid culture negative. - Status post sepsis. Dr. Benjamin deluna is following in infection disease consultation. - End-stage renal disease, hemodialysis dependent. Continue hemodialysis per nephrology. - Chronic respiratory failure with tracheostomy. Dr. Sahu is following in pulmonology consultation. - Coronary artery disease with history of PCI. - Diastolic congestive heart failure, continue to remove fluids with hemodialysis. - Pulmonary hypertension - Peripheral vascular disease, status post left BKA. - Diabetes mellitus type 2, continue NovoLog per sliding scale. - Sacral decub present on admission. Continue current wound care. Pending care home facility placement. Further recommendations based on clinical course. Plan of care discussed with Dr. Miramontes. Problems: Subjective 24 Hr Interval Summary Free Text/Dictation No acute events overnight, patient tolerates G-tube feeding well, pain is well controlled. Exam/Review of Systems Vital Signs Vitals Vital Signs Date Time Temp Pulse Resp B/P Pulse Ox O2 Delivery O2 Flow Rate FiO2 12/04/16 12:12 94 12/04/16 11:05 98.2 19 117/83 97 12/04/16 11:05 30 Intake and Output 12/03/16 12/03/16 12/04/16 15:00 23:00 07:00 Intake Total 500 ml 600 ml 600 ml Output Total 3500 ml Balance -3000 ml 600 ml 600 ml Exam GENERAL: Well-developed, well-nourished male, currently on vent support via trach. HEENT: Head is atraumatic, normocephalic. PERRLA. NECK: Supple. Tracheostomy at the base of the neck. LUNGS: Slightly diminished at the bases. Clear in the upper lobes. HEART: Normal S1, S2. No murmurs, gallops, clicks, rubs noted. ABDOMEN: Protuberant, soft, nondistended, nontender. G-tube in place. EXTREMITIES: The patient is status post left BKA. Right lower extremity with mild edema. The patient has a left upper extremity arteriovenous fistula with palpable thrill and audible bruit. SKIN: No rash, petechiae noted. Sacral decubitus ulcer. NEUROLOGIC: The patient is awake, alert. Results Result Diagram: 12/04/16 0538 12/04/16 0538 Results 24 hrs Laboratory Tests Test 12/03/16 16:42 12/03/16 21:44 12/04/16 00:55 12/04/16 04:35 Bedside Glucose 193 157 124 116 Test 12/04/16 05:38 12/04/16 09:35 12/04/16 13:56 White Blood Count 8.6 Red Blood Count 3.35 L Hemoglobin 10.3 L Hematocrit 33.9 L Mean Corpuscular Volume 101.2 H Mean Corpuscular Hemoglobin 30.7 Mean Corpuscular Hemoglobin Concent 30.4 L Red Cell Distribution Width 18.1 H Platelet Count 225 Mean Platelet Volume 9.0 Neutrophils % 70.3 Lymphocytes % 12.4 L Monocytes % 13.6 H Eosinophils % 2.7 Basophils % 0.5 Nucleated Red Blood Cells % 0.0 Neutrophils # 6.1 Lymphocytes # 1.1 Monocytes # 1.2 H Eosinophils # 0.2 Basophils # 0.0 Nucleated Red Blood Cells # 0.0 Sodium Level 142 Potassium Level 3.6 Chloride Level 101 Carbon Dioxide Level 28 Anion Gap 17 H Blood Urea Nitrogen 40 H Creatinine 2.57 H Glucose Level 134 Calcium Level 7.9 L Bedside Glucose 166 155 Medications Medications Current Medications Lidocaine (Lidoderm) 1 patch DAILY TD Last administered on 12/03/16 09:04; Admin Dose 1 PATCH; Start 11/08/16 at 15:30 Acetaminophen (Tylenol Liquid) 325 mg Q4H PRN GTB MILD PAIN LEVEL 1-3 Last administered on 11/17/16 02:37; Admin Dose 325 MG; Start 11/08/16 at 15:30 Acetaminophen (Tylenol Liquid) 650 mg Q4H PRN GTB MODERATE PAIN LEVEL 4-6 Last administered on 11/21/16 20:54; Admin Dose 650 MG; Start 11/08/16 at 15:30 Ascorbic Acid (Vitamin C) 500 mg DAILY GTB Last administered on 12/04/16 09:37 ; Admin Dose 500 MG; Start 11/09/16 at 09:00 Atorvastatin Calcium (Lipitor) 40 mg QHS GTB Last administered on 12/03/16 19: 40; Admin Dose 40 MG; Start 11/08/16 at 21:00 Carvedilol (Coreg) 3.125 mg BID GTB Last administered on 12/03/16 19:41; Admin Dose 3.125 MG; Start 11/08/16 at 21:00 Duloxetine HCl (Cymbalta) 30 mg DAILY GTB Last administered on 12/04/16 09:37 ; Admin Dose 30 MG; Start 11/09/16 at 09:00 Fluticasone Propionate (Flonase 0.05% Nasal) 1 spray BID NASAL Last administered on 12/04/16 09:39; Admin Dose 1 SPRAY; Start 11/08/16 at 21:00 Lactobacillus Acidoph/Bulgaricus (Floranex) 1 tab DAILY GTB Last administered on 12/04/16 09:37; Admin Dose 1 TAB; Start 11/09/16 at 09:00 Sildenafil Citrate (Revatio) 20 mg BID GTB Last administered on 12/02/16 21:00 ; Admin Dose 20 MG; Start 11/08/16 at 21:00 Vitamin B Complex/ Vitamin C (Berocca) 1 cap DAILY GTB Last administered on 09:37; Admin Dose 1 CAP; Start 11/09/16 at 09:00 Miscellaneous Information 1 ea NOTE XX ; Start 11/08/16 at 16:00 Glucose (Glutose) 15 gm Q15M PRN PO DECREASED GLUCOSE; Start 11/08/16 at 16:00 Glucose (Glutose) 22.5 gm Q15M PRN PO DECREASED GLUCOSE; Start 11/08/16 at 16: 00 Dextrose (D50w Syringe) 25 ml Q15M PRN IV DECREASED GLUCOSE Last administered on 11/30/16 19:05; Admin Dose 25 ML; Start 11/08/16 at 16:00 Dextrose (D50w Syringe) 50 ml Q15M PRN IV DECREASED GLUCOSE; Start 11/08/16 at 16:00 Glucagon (Glucagen) 1 mg Q15M PRN IM DECREASED GLUCOSE; Start 11/08/16 at 16:00 Glucose (Glutose) 15 gm Q15M PRN BUCCAL DECREASED GLUCOSE; Start 11/08/16 at 16 :00 Acetaminophen/ Hydrocodone Bitart ([place] (5/325)) 1 tab Q4H PRN PO SEVERE PAIN 7-10 Last administered on 12/03/16 19:41; Admin Dose 1 TAB; Start 11/08/16 at 21:00 Morphine Sulfate (morphine) 2 mg Q4H PRN IV PAIN LEVEL 7-10 Last administered on 12/04/16 11:28; Admin Dose 2 MG; Start 11/09/16 at 11:00 Collagenase (Santyl) 1 applic DAILY TOP Last administered on 12/04/16 09:40; Admin Dose 1 APPLIC; Start 11/09/16 at 16:00 Lorazepam (Ativan) 1 mg Q6H PRN IV AGITATION/ANXIETY Last administered on 11:26; Admin Dose 1 MG; Start 11/09/16 at 20:30 Sodium Phosphate (Neutra-Phos) 250 mg BID GTB Last administered on 12/04/16 09 :37; Admin Dose 250 MG; Start 11/10/16 at 09:00 Calcium/Vitamin D (Oyster Shell/ Vit-D (500/200)) 1 tab DAILY GTB Last administered on 12/04/16 09:37; Admin Dose 1 TAB; Start 11/12/16 at 11:00 Prochlorperazine (Compazine) 5 mg Q6H PRN GTB NAUSEA AND/OR VOMITING Last administered on 11/28/16 10:57; Admin Dose 5 MG; Start 11/17/16 at 17:30 Insulin Glargine (Lantus) 16 unit DAILY SC Last administered on 12/04/16 09:59 ; Admin Dose 16 UNIT; Start 11/24/16 at 09:00 Diagnostic Test (Pha) (Accu-Chek) 1 ea 02 XX Last administered on 11/30/16 02: 14; Admin Dose 1 EA; Start 11/24/16 at 02:00 Insulin Aspart (Novolog Insulin Pen) NOVOLOG *MILD* ALGORITHM Q4 SC Last administered on 12/04/16 13:59; Admin Dose 1 UNIT; Start 11/23/16 at 17:00 Lansoprazole (Prevacid) 30 mg BID@ GTB Last administered on 12/04/16t 04: 37; Admin Dose 30 MG; Start 11/29/16 at 18:00 MARY DOMINGUEZ Dec 04, 2016 14:15
[2016-12-04] MEDS: ATORVASTATIN 40 MG TAB GTB SCH (21:45)
--- NOTE | 2016-12-04 22:51 | PN ---
Date/Time of Note Date/Time of Note DATE: 12/04/16 TIME: 22:51 Assessment/Plan VTE Prophylaxis VTE Prophylaxis Intervention: SCD's Lines/Catheters IV Catheter Type (from Nrs): Peripheral IV Urinary Cath still in place: No Assessment/Plan Assessment/Plan Paroxysmal atrial tachycardia Possible GI bleed Respiratory failure status post tracheostomy Diastolic congestive heart failure End-stage renal disease on hemodialysis CAD with history of PCI Diabetes Peripheral arterial disease with history of amputation Pulmonary hypertension Hypotension, improved -Blood pressure trend improving, holding parameters on coreg and sildenafil. -fluid management via hemodialysis as per our nephrology colleagues -no new cv reccomendations Subjective 24 Hr Interval Summary Free Text/Dictation the patient w ith no cahgne Exam/Review of Systems Vital Signs Vitals Vital Signs Date Time Temp Pulse Resp B/P Pulse Ox O2 Delivery O2 Flow Rate FiO2 12/04/16 21:24 98.9 108 20 137/63 97 12/04/16 20:47 30 Intake and Output 12/03/16 12/03/16 12/04/16 15:00 23:00 07:00 Intake Total 500 ml 600 ml 600 ml Output Total 3500 ml Balance -3000 ml 600 ml 600 ml Results Result Diagram: 12/04/16 0538 12/04/16 0538 Results 24 hrs Laboratory Tests Test 12/04/16 00:55 12/04/16 04:35 12/04/16 05:38 12/04/16 09:35 Bedside Glucose 124 116 166 White Blood Count 8.6 Red Blood Count 3.35 L Hemoglobin 10.3 L Hematocrit 33.9 L Mean Corpuscular Volume 101.2 H Mean Corpuscular Hemoglobin 30.7 Mean Corpuscular Hemoglobin Concent 30.4 L Red Cell Distribution Width 18.1 H Platelet Count 225 Mean Platelet Volume 9.0 Neutrophils % 70.3 Lymphocytes % 12.4 L Monocytes % 13.6 H Eosinophils % 2.7 Basophils % 0.5 Nucleated Red Blood Cells % 0.0 Neutrophils # 6.1 Lymphocytes # 1.1 Monocytes # 1.2 H Eosinophils # 0.2 Basophils # 0.0 Nucleated Red Blood Cells # 0.0 Sodium Level 142 Potassium Level 3.6 Chloride Level 101 Carbon Dioxide Level 28 Anion Gap 17 H Blood Urea Nitrogen 40 H Creatinine 2.57 H Glucose Level 134 Calcium Level 7.9 L Test 12/04/16 13:56 12/04/16 18:07 12/04/16 21:42 Bedside Glucose 155 122 116 Medications Medications Current Medications Lidocaine (Lidoderm) 1 patch DAILY TD Last administered on 12/03/16 09:04; Admin Dose 1 PATCH; Start 11/08/16 at 15:30 Acetaminophen (Tylenol Liquid) 325 mg Q4H PRN GTB MILD PAIN LEVEL 1-3 Last administered on 11/17/16 02:37; Admin Dose 325 MG; Start 11/08/16 at 15:30 Acetaminophen (Tylenol Liquid) 650 mg Q4H PRN GTB MODERATE PAIN LEVEL 4-6 Last administered on 11/21/16 20:54; Admin Dose 650 MG; Start 11/08/16 at 15:30 Ascorbic Acid (Vitamin C) 500 mg DAILY GTB Last administered on 12/04/16 09:37 ; Admin Dose 500 MG; Start 11/09/16 at 09:00 Atorvastatin Calcium (Lipitor) 40 mg QHS GTB Last administered on 12/04/16 21: 45; Admin Dose 40 MG; Start 11/08/16 at 21:00 Carvedilol (Coreg) 3.125 mg BID GTB Last administered on 12/04/16 21:47; Admin Dose 3.125 MG; Start 11/08/16 at 21:00 Duloxetine HCl (Cymbalta) 30 mg DAILY GTB Last administered on 12/04/16 09:37 ; Admin Dose 30 MG; Start 11/09/16 at 09:00 Fluticasone Propionate (Flonase 0.05% Nasal) 1 spray BID NASAL Last administered on 12/04/16 21:47; Admin Dose 1 SPRAY; Start 11/08/16 at 21:00 Lactobacillus Acidoph/Bulgaricus (Floranex) 1 tab DAILY GTB Last administered on 12/04/16 09:37; Admin Dose 1 TAB; Start 11/09/16 at 09:00 Sildenafil Citrate (Revatio) 20 mg BID GTB Last administered on 12/02/16 21:00 ; Admin Dose 20 MG; Start 11/08/16 at 21:00 Vitamin B Complex/ Vitamin C (Berocca) 1 cap DAILY GTB Last administered on 09:37; Admin Dose 1 CAP; Start 11/09/16 at 09:00 Miscellaneous Information 1 ea NOTE XX ; Start 11/08/16 at 16:00 Glucose (Glutose) 15 gm Q15M PRN PO DECREASED GLUCOSE; Start 11/08/16 at 16:00 Glucose (Glutose) 22.5 gm Q15M PRN PO DECREASED GLUCOSE; Start 11/08/16 at 16: 00 Dextrose (D50w Syringe) 25 ml Q15M PRN IV DECREASED GLUCOSE Last administered on 11/30/16 19:05; Admin Dose 25 ML; Start 11/08/16 at 16:00 Dextrose (D50w Syringe) 50 ml Q15M PRN IV DECREASED GLUCOSE; Start 11/08/16 at 16:00 Glucagon (Glucagen) 1 mg Q15M PRN IM DECREASED GLUCOSE; Start 11/08/16 at 16:00 Glucose (Glutose) 15 gm Q15M PRN BUCCAL DECREASED GLUCOSE; Start 11/08/16 at 16 :00 Acetaminophen/ Hydrocodone Bitart ([place] (5/325)) 1 tab Q4H PRN PO SEVERE PAIN 7-10 Last administered on 12/03/16 19:41; Admin Dose 1 TAB; Start 11/08/16 at 21:00 Morphine Sulfate (morphine) 2 mg Q4H PRN IV PAIN LEVEL 7-10 Last administered on 12/04/16 17:09; Admin Dose 2 MG; Start 11/09/16 at 11:00 Collagenase (Santyl) 1 applic DAILY TOP Last administered on 12/04/16 09:40; Admin Dose 1 APPLIC; Start 11/09/16 at 16:00 Lorazepam (Ativan) 1 mg Q6H PRN IV AGITATION/ANXIETY Last administered on 21:49; Admin Dose 1 MG; Start 11/09/16 at 20:30 Sodium Phosphate (Neutra-Phos) 250 mg BID GTB Last administered on 12/04/16 21 :45; Admin Dose 250 MG; Start 11/10/16 at 09:00 Calcium/Vitamin D (Oyster Shell/ Vit-D (500/200)) 1 tab DAILY GTB Last administered on 12/04/16 09:37; Admin Dose 1 TAB; Start 11/12/16 at 11:00 Prochlorperazine (Compazine) 5 mg Q6H PRN GTB NAUSEA AND/OR VOMITING Last administered on 11/28/16 10:57; Admin Dose 5 MG; Start 11/17/16 at 17:30 Insulin Glargine (Lantus) 16 unit DAILY SC Last administered on 12/04/16 09:59 ; Admin Dose 16 UNIT; Start 11/24/16 at 09:00 Diagnostic Test (Pha) (Accu-Chek) 1 ea 02 XX Last administered on 11/30/16 02: 14; Admin Dose 1 EA; Start 11/24/16 at 02:00 Insulin Aspart (Novolog Insulin Pen) NOVOLOG *MILD* ALGORITHM Q4 SC Last administered on 12/04/16 13:59; Admin Dose 1 UNIT; Start 11/23/16 at 17:00 Lansoprazole (Prevacid) 30 mg BID@,18 GTB Last administered on 12/04/16 18: 07; Admin Dose 30 MG; Start 11/29/16 at 18:00 MARIANA [place] MD Dec 04, 2016 22:51
[2016-12-05] VITALS (31 sets, daily range): BP systolic 76–125; BP diastolic 38–75; PULSE 88–103; RESP 18–25
[2016-12-05] MEDS: INSULIN ASPART [NOVOLOG] 3 ML PEN SC SCH ×6 (01:00→21:00)
[2016-12-05] MEDS: morphine 2 MG INJ IV PRN ×2 (01:53→11:33)
[2016-12-05] MEDS: ACCU-CHEK XX SCH (01:54)
[2016-12-05] MEDS: LANSOPRAZOLE 30 MG CAP GTB SCH ×2 (05:39→17:58)
[2016-12-05] MEDS: VITAMIN B COMPLEX/VIT C CAP GTB SCH (08:28)
[2016-12-05] MEDS: LACTOBACILLUS CHEW TAB GTB SCH (08:28)
[2016-12-05] MEDS: NEUTRA-PHOS 250 MG PACKET GTB SCH ×2 (08:28→21:08)
[2016-12-05] MEDS: SILDENAFIL 20 MG TAB GTB SCH ×2 (08:28→21:00)
[2016-12-05] MEDS: DULOXETINE 30 MG CAP DR GTB SCH (08:28)
[2016-12-05] MEDS: ASCORBIC ACID 500 MG TAB GTB SCH (08:28)
[2016-12-05] MEDS: CALCIUM/VITAMIN D (500/200) TAB GTB SCH (08:28)
[2016-12-05] MEDS: LIDOCAINE 5% PATCH TD SCH (08:29)
[2016-12-05] MEDS: FLUTICASONE 0.05% 16 GM NAS SPRAY NASAL SCH ×2 (08:30→21:08)
[2016-12-05] MEDS: COLLAGENASE 30 GM TUBE TOP SCH (08:31)
[2016-12-05] MEDS: INSULIN GLARGINE [LANtus] 3 ML PEN SC SCH (08:42)
--- NOTE | 2016-12-05 08:56 | PN ---
DATE: 12/05/2016 SUBJECTIVE: The patient is stable, no acute events noted. No fevers, chills, nausea, vomiting. Th e patient is scheduled for hemodialysis today. OBJECTIVE: VITAL SIGNS: Blood pressure 123/57, respirations 19, pulse 96, temperature 98.3. HEENT: Head is normocephalic. NECK: Supple. HEART: Regular rate. LUNGS: Show diminished breath sounds at base. ABDOMEN: Soft, nontender to palpation without rebound or guarding. EXTREMITIES: Negative for clubbing, cyanosis. Positive edema on the right lower leg. Left above-k nee amputation noted. DERMATOLOGIC: No rashes. MUSCULOSKELETAL: No joint effusions. NEUROLOGIC: No change in exam. MEDICATIONS: Have been reviewed. LABORATORY DATA: Has been reviewed. No new labs. ASSESSMENT AND PLAN: 1. End-stage renal disease. The patient is on dialysis Saturday, Saturday, Saturday. Plan for dialys is today for 3 hours, 2K bath, calcium 2.5. 2. Anemia. Continue to monitor hemoglobin and hematocrit levels. Continue Epogen. 3. Mineral bone disorder. Continue to monitor calcium and phosphorus levels. 4. Ventilator dependent respiratory failure. Vent settings reviewed. Continue to monitor. Follow up with Pulmonary. 5. Volume overload. Continue ultrafiltration dialysis. 6. Dysphagia, status post G-tube feeding. 7. Coronary artery disease. Continue medical management. 8. Diabetes. Continue current insulin regimen. 9. Congestive heart failure. Continue current treatment plan. 10. Sepsis. The patient has completed antibiotic course. 11. Sacral decubitus wound. Continue wound care. Dictated By: SARAHI RINALDI/OLESYA Conf#: [id number] DID#: [id number]
--- NOTE | 2016-12-05 12:16 | CONS ---
Date/Time of Note Date/Time of Note DATE: 12/05/16 TIME: 12:15 Assessment/Plan Assessment/Plan Additional Assessment/Plan Ventilator settings; AC of 14, tidal volume 500, PEEP of 5, 30% FiO2. Assessment recommendations; 1. Patient admitted for UTI and sepsis status post antibiotic treatment. 2. Chronic respiratory failure. Ventilator dependent. 3. End-stage renal disease, on hemodialysis. 4. History of hypertension. 5. History of pulmonary hypertension. Continue current supportive care. Consultation Date/Type/Reason Admit Date/Time Nov 08, 2016 at 10:56 Initial Consult Date 11/08/16 Type of Consultation: Pulmonary Referring Provider: GRACIE KATHLEEN 24 HR Interval Summary Free Text/Dictation Patient condition stable. Remains awake alert. Follows simple commands. Has remained hemodynamically stable. General exam; elderly male, on ventilator via tracheostomy currently in no distress. Exam/Review of Systems Vital Signs Vitals Vital Signs Date Time Temp Pulse Resp B/P Pulse Ox O2 Delivery O2 Flow Rate FiO2 12/05/16 12:12 91 12/05/16 11:19 98.2 19 125/75 95 12/05/16 06:00 30 Intake and Output 12/04/16 12/04/16 12/05/16 14:59 22:59 06:59 Intake Total 560 ml 600 ml Balance 560 ml 600 ml Exam HEENT exam is; supple neck, no JVD. No lymphadenopathy. Midline trachea. No thyromegaly. Tracheostomy in place. Chest exam is; clear to auscultation. S1-S2 audible, no murmurs. Regular rhythm. Abdomen examination; soft, no organomegaly. G-tube in place. Bowel sounds are audible. Extremity exam is; trace peripheral edema involving the right lower extremity. The patient has a well-healed left below-knee amputation. CRANE LADLE PERSON exam is; patient is awake alert follows commands moves both upper and right lower extremities. Results Result Diagram: 12/04/16 0538 12/04/16 0538 Results 24 hrs Laboratory Tests Test 12/04/16 13:56 12/04/16 18:07 12/04/16 21:42 12/05/16 01:14 Bedside Glucose 155 122 116 99 Test 12/05/16 05:31 12/05/16 08:40 Bedside Glucose 129 156 Medications Medications Current Medications Lidocaine (Lidoderm) 1 patch DAILY TD Last administered on 12/05/16 08:29; Admin Dose 1 PATCH; Start 11/08/16 at 15:30 Acetaminophen (Tylenol Liquid) 325 mg Q4H PRN GTB MILD PAIN LEVEL 1-3 Last administered on 11/17/16 02:37; Admin Dose 325 MG; Start 11/08/16 at 15:30 Acetaminophen (Tylenol Liquid) 650 mg Q4H PRN GTB MODERATE PAIN LEVEL 4-6 Last administered on 11/21/16 20:54; Admin Dose 650 MG; Start 11/08/16 at 15:30 Ascorbic Acid (Vitamin C) 500 mg DAILY GTB Last administered on 12/05/16 08:28 ; Admin Dose 500 MG; Start 11/09/16 at 09:00 Atorvastatin Calcium (Lipitor) 40 mg QHS GTB Last administered on 12/04/16 21: 45; Admin Dose 40 MG; Start 11/08/16 at 21:00 Carvedilol (Coreg) 3.125 mg BID GTB Last administered on 12/05/16 08:29; Admin Dose 3.125 MG; Start 11/08/16 at 21:00 Duloxetine HCl (Cymbalta) 30 mg DAILY GTB Last administered on 12/05/16 08:28 ; Admin Dose 30 MG; Start 11/09/16 at 09:00 Fluticasone Propionate (Flonase 0.05% Nasal) 1 spray BID NASAL Last administered on 12/05/16 08:30; Admin Dose 1 SPRAY; Start 11/08/16 at 21:00 Lactobacillus Acidoph/Bulgaricus (Floranex) 1 tab DAILY GTB Last administered on 12/05/16 08:28; Admin Dose 1 TAB; Start 11/09/16 at 09:00 Sildenafil Citrate (Revatio) 20 mg BID GTB Last administered on 12/05/16 08:28 ; Admin Dose 20 MG; Start 11/08/16 at 21:00 Vitamin B Complex/ Vitamin C (Berocca) 1 cap DAILY GTB Last administered on 08:28; Admin Dose 1 CAP; Start 11/09/16 at 09:00 Miscellaneous Information 1 ea NOTE XX ; Start 11/08/16 at 16:00 Glucose (Glutose) 15 gm Q15M PRN PO DECREASED GLUCOSE; Start 11/08/16 at 16:00 Glucose (Glutose) 22.5 gm Q15M PRN PO DECREASED GLUCOSE; Start 11/08/16 at 16: 00 Dextrose (D50w Syringe) 25 ml Q15M PRN IV DECREASED GLUCOSE Last administered on 11/30/16 19:05; Admin Dose 25 ML; Start 11/08/16 at 16:00 Dextrose (D50w Syringe) 50 ml Q15M PRN IV DECREASED GLUCOSE; Start 11/08/16 at 16:00 Glucagon (Glucagen) 1 mg Q15M PRN IM DECREASED GLUCOSE; Start 11/08/16 at 16:00 Glucose (Glutose) 15 gm Q15M PRN BUCCAL DECREASED GLUCOSE; Start 11/08/16 at 16 :00 Acetaminophen/ Hydrocodone Bitart ([place] (5/325)) 1 tab Q4H PRN PO SEVERE PAIN 7-10 Last administered on 12/03/16 19:41; Admin Dose 1 TAB; Start 11/08/16 at 21:00 Morphine Sulfate (morphine) 2 mg Q4H PRN IV PAIN LEVEL 7-10 Last administered on 12/05/16 11:33; Admin Dose 2 MG; Start 11/09/16 at 11:00 Collagenase (Santyl) 1 applic DAILY TOP Last administered on 12/05/16 08:31; Admin Dose 1 APPLIC; Start 11/09/16 at 16:00 Lorazepam (Ativan) 1 mg Q6H PRN IV AGITATION/ANXIETY Last administered on 21:49; Admin Dose 1 MG; Start 11/09/16 at 20:30 Sodium Phosphate (Neutra-Phos) 250 mg BID GTB Last administered on 12/05/16 08 :28; Admin Dose 250 MG; Start 11/10/16 at 09:00 Calcium/Vitamin D (Oyster Shell/ Vit-D (500/200)) 1 tab DAILY GTB Last administered on 12/05/16 08:28; Admin Dose 1 TAB; Start 11/12/16 at 11:00 Prochlorperazine (Compazine) 5 mg Q6H PRN GTB NAUSEA AND/OR VOMITING Last administered on 11/28/16 10:57; Admin Dose 5 MG; Start 11/17/16 at 17:30 Insulin Glargine (Lantus) 16 unit DAILY SC Last administered on 12/05/16 08:42 ; Admin Dose 16 UNIT; Start 11/24/16 at 09:00 Diagnostic Test (Pha) (Accu-Chek) 1 ea 02 XX Last administered on 11/30/16 02: 14; Admin Dose 1 EA; Start 11/24/16 at 02:00 Insulin Aspart (Novolog Insulin Pen) NOVOLOG *MILD* ALGORITHM Q4 SC Last administered on 12/05/16 08:44; Admin Dose 1 UNIT; Start 11/23/16 at 17:00 Lansoprazole (Prevacid) 30 mg BID@06,18 GTB Last administered on 12/05/16 05: 39; Admin Dose 30 MG; Start 11/29/16 at 18:00 ELVI BLANK Dec 05, 2016 12:16
--- NOTE | 2016-12-05 16:55 | CONS ---
Date/Time of Note Date/Time of Note DATE: 12/05/16 TIME: 16:54 Assessment/Plan Assessment/Plan Additional Assessment/Plan Paroxysmal atrial tachycardia Possible GI bleed Respiratory failure status post tracheostomy Diastolic congestive heart failure End-stage renal disease on hemodialysis CAD with history of PCI Diabetes Peripheral arterial disease with history of amputation Pulmonary hypertension Hypotension, improved -Blood pressure trend improving, holding parameters on coreg and sildenafil. -fluid management via hemodialysis as per our nephrology colleagues -No new cardiac orders at the current time. Consultation Date/Type/Reason Admit Date/Time Nov 08, 2016 at 10:56 Initial Consult Date 11/09/16 Type of Consultation: cv Referring Provider: GRACIE KATHLEEN 24 HR Interval Summary Free Text/Dictation Patient seen and examined Exam/Review of Systems Vital Signs Vitals Vital Signs Date Time Temp Pulse Resp B/P Pulse Ox O2 Delivery O2 Flow Rate FiO2 12/05/16 16:17 96 12/05/16 15:54 98.4 19 96/52 95 12/05/16 13:55 30 Intake and Output 12/04/16 12/04/16 12/05/16 15:00 23:00 07:00 Intake Total 560 ml 600 ml Balance 560 ml 600 ml Exam Sleeping, no apparent distress Head: normocephalic Neck: other (Tracheostomy) Cardiovascular: other (S1-S2 heard), regular rate and rhythm Gastrointestinal: bowel sounds, non-tender, soft Extremities: edema Results Result Diagram: 12/04/16 0538 12/04/16 0538 Results 24 hrs Laboratory Tests Test 12/04/16 18:07 12/04/16 21:42 12/05/16 01:14 12/05/16 05:31 Bedside Glucose 122 116 99 129 Test 12/05/16 08:40 12/05/16 12:30 Bedside Glucose 156 125 Medications Medications Current Medications Lidocaine (Lidoderm) 1 patch DAILY TD Last administered on 12/05/16 08:29; Admin Dose 1 PATCH; Start 11/08/16 at 15:30 Acetaminophen (Tylenol Liquid) 325 mg Q4H PRN GTB MILD PAIN LEVEL 1-3 Last administered on 11/17/16 02:37; Admin Dose 325 MG; Start 11/08/16 at 15:30 Acetaminophen (Tylenol Liquid) 650 mg Q4H PRN GTB MODERATE PAIN LEVEL 4-6 Last administered on 11/21/16 20:54; Admin Dose 650 MG; Start 11/08/16 at 15:30 Ascorbic Acid (Vitamin C) 500 mg DAILY GTB Last administered on 12/05/16 08:28 ; Admin Dose 500 MG; Start 11/09/16 at 09:00 Atorvastatin Calcium (Lipitor) 40 mg QHS GTB Last administered on 12/04/16 21: 45; Admin Dose 40 MG; Start 11/08/16 at 21:00 Carvedilol (Coreg) 3.125 mg BID GTB Last administered on 12/05/16 08:29; Admin Dose 3.125 MG; Start 11/08/16 at 21:00 Duloxetine HCl (Cymbalta) 30 mg DAILY GTB Last administered on 12/05/16 08:28 ; Admin Dose 30 MG; Start 11/09/16 at 09:00 Fluticasone Propionate (Flonase 0.05% Nasal) 1 spray BID NASAL Last administered on 12/05/16 08:30; Admin Dose 1 SPRAY; Start 11/08/16 at 21:00 Lactobacillus Acidoph/Bulgaricus (Floranex) 1 tab DAILY GTB Last administered on 12/05/16 08:28; Admin Dose 1 TAB; Start 11/09/16 at 09:00 Sildenafil Citrate (Revatio) 20 mg BID GTB Last administered on 12/05/16 08:28 ; Admin Dose 20 MG; Start 11/08/16 at 21:00 Vitamin B Complex/ Vitamin C (Berocca) 1 cap DAILY GTB Last administered on 08:28; Admin Dose 1 CAP; Start 11/09/16 at 09:00 Miscellaneous Information 1 ea NOTE XX ; Start 11/08/16 at 16:00 Glucose (Glutose) 15 gm Q15M PRN PO DECREASED GLUCOSE; Start 11/08/16 at 16:00 Glucose (Glutose) 22.5 gm Q15M PRN PO DECREASED GLUCOSE; Start 11/08/16 at 16: 00 Dextrose (D50w Syringe) 25 ml Q15M PRN IV DECREASED GLUCOSE Last administered on 11/30/16 19:05; Admin Dose 25 ML; Start 11/08/16 at 16:00 Dextrose (D50w Syringe) 50 ml Q15M PRN IV DECREASED GLUCOSE; Start 11/08/16 at 16:00 Glucagon (Glucagen) 1 mg Q15M PRN IM DECREASED GLUCOSE; Start 11/08/16 at 16:00 Glucose (Glutose) 15 gm Q15M PRN BUCCAL DECREASED GLUCOSE; Start 11/08/16 at 16 :00 Acetaminophen/ Hydrocodone Bitart ([place] (5/325)) 1 tab Q4H PRN PO SEVERE PAIN 7-10 Last administered on 12/03/16 19:41; Admin Dose 1 TAB; Start 11/08/16 at 21:00 Morphine Sulfate (morphine) 2 mg Q4H PRN IV PAIN LEVEL 7-10 Last administered on 12/05/16 11:33; Admin Dose 2 MG; Start 11/09/16 at 11:00 Collagenase (Santyl) 1 applic DAILY TOP Last administered on 12/05/16 08:31; Admin Dose 1 APPLIC; Start 11/09/16 at 16:00 Lorazepam (Ativan) 1 mg Q6H PRN IV AGITATION/ANXIETY Last administered on 21:49; Admin Dose 1 MG; Start 11/09/16 at 20:30 Sodium Phosphate (Neutra-Phos) 250 mg BID GTB Last administered on 12/05/16 08 :28; Admin Dose 250 MG; Start 11/10/16 at 09:00 Calcium/Vitamin D (Oyster Shell/ Vit-D (500/200)) 1 tab DAILY GTB Last administered on 12/05/16 08:28; Admin Dose 1 TAB; Start 11/12/16 at 11:00 Prochlorperazine (Compazine) 5 mg Q6H PRN GTB NAUSEA AND/OR VOMITING Last administered on 11/28/16 10:57; Admin Dose 5 MG; Start 11/17/16 at 17:30 Insulin Glargine (Lantus) 16 unit DAILY SC Last administered on 12/05/16 08:42 ; Admin Dose 16 UNIT; Start 11/24/16 at 09:00 Diagnostic Test (Pha) (Accu-Chek) 1 ea 02 XX Last administered on 11/30/16 02: 14; Admin Dose 1 EA; Start 11/24/16 at 02:00 Insulin Aspart (Novolog Insulin Pen) NOVOLOG *MILD* ALGORITHM Q4 SC Last administered on 12/05/16 08:44; Admin Dose 1 UNIT; Start 11/23/16 at 17:00 Lansoprazole (Prevacid) 30 mg BID@,18 GTB Last administered on 12/05/16 05: 39; Admin Dose 30 MG; Start 11/29/16 at 18:00 Solo Leon DO Dec 05, 2016 16:55
--- NOTE | 2016-12-05 17:24 | PN ---
Date/Time of Note Date/Time of Note DATE: 12/05/16 TIME: 17:23 Assessment/Plan VTE Prophylaxis VTE Prophylaxis Intervention: SCD's Lines/Catheters [facility] Peripheral IV Urinary Cath still in place: No Assessment/Plan Chief Complaint/Hosp Course Assessment/Plan - Esophagitis per EGD. Continue Protonix Dr. Hernandez is following in gastroenterology consultation. - Anemia of chronic disease, on Epogen, continue to monitor hemoglobin and hematocrit, transfuse as needed. - Ascites, SBP ruled out, Status post paracentesis 11/14, ascitic fluid culture negative. - Status post sepsis. Dr. Benjamin deluna is following in infection disease consultation. - End-stage renal disease, hemodialysis dependent. Continue hemodialysis per nephrology. - Chronic respiratory failure with tracheostomy. Dr. Sahu is following in pulmonology consultation. - Coronary artery disease with history of PCI. - Diastolic congestive heart failure, continue to remove fluids with hemodialysis. - Pulmonary hypertension - Peripheral vascular disease, status post left BKA. - Diabetes mellitus type 2, continue NovoLog per sliding scale. - Sacral decub present on admission. Continue current wound care. Pending [facility] facility placement. Further recommendations based on clinical course. Plan of care discussed with Dr. Miramontes. Problems: Subjective 24 Hr Interval Summary Free Text/Dictation Patient looks comfortable, tolerates G-tube feeding well, no acute issues. Exam/Review of Systems Vital Signs Vitals Vital Signs Date Time Temp Pulse Resp B/P Pulse Ox O2 Delivery O2 Flow Rate FiO2 12/05/16 16:17 96 12/05/16 15:54 98.4 19 96/52 95 12/05/16 13:55 30 Intake and Output 12/04/16 12/04/16 12/05/16 15:00 23:00 07:00 Intake Total 560 ml 600 ml Balance 560 ml 600 ml Exam GENERAL: Well-developed, well-nourished male, currently on vent support via trach. HEENT: Head is atraumatic, normocephalic. PERRLA. NECK: Supple. Tracheostomy at the base of the neck. LUNGS: Slightly diminished at the bases. Clear in the upper lobes. HEART: Normal S1, S2. No murmurs, gallops, clicks, rubs noted. ABDOMEN: Protuberant, soft, nondistended, nontender. G-tube in place. EXTREMITIES: The patient is status post left BKA. Right lower extremity with mild edema. The patient has a left upper extremity arteriovenous fistula with palpable thrill and audible bruit. SKIN: No rash, petechiae noted. Sacral decubitus ulcer. NEUROLOGIC: The patient is awake, alert. Results Result Diagram: 12/04/16 0538 12/04/16 0538 Results 24 hrs Laboratory Tests Test 12/04/16 18:07 12/04/16 21:42 12/05/16 01:14 12/05/16 05:31 Bedside Glucose 122 116 99 129 Test 12/05/16 08:40 12/05/16 12:30 Bedside Glucose 156 125 Medications Medications Current Medications Lidocaine (Lidoderm) 1 patch DAILY TD Last administered on 12/05/16 08:29; Admin Dose 1 PATCH; Start 11/08/16 at 15:30 Acetaminophen (Tylenol Liquid) 325 mg Q4H PRN GTB MILD PAIN LEVEL 1-3 Last administered on 11/17/16 02:37; Admin Dose 325 MG; Start 11/08/16 at 15:30 Acetaminophen (Tylenol Liquid) 650 mg Q4H PRN GTB MODERATE PAIN LEVEL 4-6 Last administered on 11/21/16 20:54; Admin Dose 650 MG; Start 11/08/16 at 15:30 Ascorbic Acid (Vitamin C) 500 mg DAILY GTB Last administered on 12/05/16 08:28 ; Admin Dose 500 MG; Start 11/09/16 at 09:00 Atorvastatin Calcium (Lipitor) 40 mg QHS GTB Last administered on 12/04/16 21: 45; Admin Dose 40 MG; Start 11/08/16 at 21:00 Carvedilol (Coreg) 3.125 mg BID GTB Last administered on 12/05/16 08:29; Admin Dose 3.125 MG; Start 11/08/16 at 21:00 Duloxetine HCl (Cymbalta) 30 mg DAILY GTB Last administered on 12/05/16 08:28 ; Admin Dose 30 MG; Start 11/09/16 at 09:00 Fluticasone Propionate (Flonase 0.05% Nasal) 1 spray BID NASAL Last administered on 12/05/16 08:30; Admin Dose 1 SPRAY; Start 11/08/16 at 21:00 Lactobacillus Acidoph/Bulgaricus (Floranex) 1 tab DAILY GTB Last administered on 12/05/16 08:28; Admin Dose 1 TAB; Start 11/09/16 at 09:00 Sildenafil Citrate (Revatio) 20 mg BID GTB Last administered on 12/05/16 08:28 ; Admin Dose 20 MG; Start 11/08/16 at 21:00 Vitamin B Complex/ Vitamin C (Berocca) 1 cap DAILY GTB Last administered on 08:28; Admin Dose 1 CAP; Start 11/09/16 at 09:00 Miscellaneous Information 1 ea NOTE XX ; Start 11/08/16 at 16:00 Glucose (Glutose) 15 gm Q15M PRN PO DECREASED GLUCOSE; Start 11/08/16 at 16:00 Glucose (Glutose) 22.5 gm Q15M PRN PO DECREASED GLUCOSE; Start 11/08/16 at 16: 00 Dextrose (D50w Syringe) 25 ml Q15M PRN IV DECREASED GLUCOSE Last administered on 11/30/16 19:05; Admin Dose 25 ML; Start 11/08/16 at 16:00 Dextrose (D50w Syringe) 50 ml Q15M PRN IV DECREASED GLUCOSE; Start 11/08/16 at 16:00 Glucagon (Glucagen) 1 mg Q15M PRN IM DECREASED GLUCOSE; Start 11/08/16 at 16:00 Glucose (Glutose) 15 gm Q15M PRN BUCCAL DECREASED GLUCOSE; Start 11/08/16 at 16 :00 Acetaminophen/ Hydrocodone Bitart ([place] (5/325)) 1 tab Q4H PRN PO SEVERE PAIN 7-10 Last administered on 12/03/16 19:41; Admin Dose 1 TAB; Start 11/08/16 at 21:00 Morphine Sulfate (morphine) 2 mg Q4H PRN IV PAIN LEVEL 7-10 Last administered on 12/05/16 11:33; Admin Dose 2 MG; Start 11/09/16 at 11:00 Collagenase (Santyl) 1 applic DAILY TOP Last administered on 12/05/16 08:31; Admin Dose 1 APPLIC; Start 11/09/16 at 16:00 Lorazepam (Ativan) 1 mg Q6H PRN IV AGITATION/ANXIETY Last administered on 21:49; Admin Dose 1 MG; Start 11/09/16 at 20:30 Sodium Phosphate (Neutra-Phos) 250 mg BID GTB Last administered on 12/05/16 08 :28; Admin Dose 250 MG; Start 11/10/16 at 09:00 Calcium/Vitamin D (Oyster Shell/ Vit-D (500/200)) 1 tab DAILY GTB Last administered on 12/05/16 08:28; Admin Dose 1 TAB; Start 11/12/16 at 11:00 Prochlorperazine (Compazine) 5 mg Q6H PRN GTB NAUSEA AND/OR VOMITING Last administered on 11/28/16 10:57; Admin Dose 5 MG; Start 11/17/16 at 17:30 Insulin Glargine (Lantus) 16 unit DAILY SC Last administered on 12/05/16 08:42 ; Admin Dose 16 UNIT; Start 11/24/16 at 09:00 Diagnostic Test (Pha) (Accu-Chek) 1 ea 02 XX Last administered on 11/30/16 02: 14; Admin Dose 1 EA; Start 11/24/16 at 02:00 Insulin Aspart (Novolog Insulin Pen) NOVOLOG *MILD* ALGORITHM Q4 SC Last administered on 12/05/16 08:44; Admin Dose 1 UNIT; Start 11/23/16 at 17:00 Lansoprazole (Prevacid) 30 mg BID@,18 GTB Last administered on 12/05/16 05: 39; Admin Dose 30 MG; Start 11/29/16 at 18:00 MARY DOMINGUEZ Dec 05, 2016 17:24
[2016-12-05] MEDS: ATORVASTATIN 40 MG TAB GTB SCH (21:08)
[2016-12-05] MEDS: HYDROCODONE/APAP (5/325) TAB PO PRN (21:23)
[2016-12-05] MEDS: EPOETIN 10000 UNITS/1 ML INJ (ESRD) SC SCH (21:25)
[2016-12-06] VITALS (25 sets, daily range): BP systolic 80–112; BP diastolic 47–58; PULSE 72–100; RESP 17–29
[2016-12-06] MEDS: INSULIN ASPART [NOVOLOG] 3 ML PEN SC SCH ×6 (01:00→20:41)
[2016-12-06] MEDS: ACCU-CHEK XX SCH (02:00)
[2016-12-06] MEDS: LANSOPRAZOLE 30 MG CAP GTB SCH ×2 (05:55→17:32)
[2016-12-06 07:10] LABS: CREATININE 2.3 mg/dl (0.61-1.24)
[2016-12-06 07:11] LABS: CALCIUM 7.8 mg/dl (8.4-10.2)
--- NOTE | 2016-12-06 08:11 | PN ---
DATE: 12/06/2016 SUBJECTIVE: The patient had hemodialysis yesterday, tolerated well. No events noted. OBJECTIVE: VITAL SIGNS: Blood pressure is 102/52, respiration 18, pulse 86, temperature 98.7. HEENT: Head is normocephalic. NECK: Supple. HEART: Regular rate. LUNGS: Show diminished breath sounds at base. ABDOMEN: Soft, nontender to palpation without rebound or guarding. EXTREMITIES: Negative for clubbing, cyanosis. Positive edema in the right lower leg. Left above-k nee amputation is noted. DERMATOLOGIC: No rashes. MUSCULOSKELETAL: No joint effusions. NEUROLOGIC: No change in exam. MEDICATIONS: Reviewed. LABORATORY DATA: Shows sodium 141, potassium 4.0, chloride 102, BUN 36, creatinine 2.30. White cou nt 8.6, hemoglobin 10.3, hematocrit 33.9, platelet count is 225. ASSESSMENT AND PLAN: 1. End-stage renal disease. The patient had hemodialysis yesterday, tolerated well. Plan for dial ysis again tomorrow. 2. Anemia. Continue to monitor hemoglobin and hematocrit levels. Continue Epogen. 3. 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 4. Ventilator dependent respiratory failure. Vent settings have been reviewed. Continue to monito r. Follow up with pulmonary. 5. Volume overload, congestive heart failure. Continue medical management. Continue ultrafiltrati on dialysis. 6. Dysphagia, status post PEG tube feed. 7. Coronary artery disease. Continue current treatment plan. 8. Diabetes. Continue current insulin regimen. 9. Sacral decubitus wounds. Continue wound care. 10. Status post sepsis. Dictated By: SARAHI RINALDI/OLESYA Conf#: [id number] DID#: [id number]
[2016-12-06] MEDS: CALCIUM/VITAMIN D (500/200) TAB GTB SCH (08:29)
[2016-12-06] MEDS: ASCORBIC ACID 500 MG TAB GTB SCH (08:29)
[2016-12-06] MEDS: LACTOBACILLUS CHEW TAB GTB SCH (08:29)
[2016-12-06] MEDS: DULOXETINE 30 MG CAP DR GTB SCH (08:29)
[2016-12-06] MEDS: VITAMIN B COMPLEX/VIT C CAP GTB SCH (08:29)
[2016-12-06] MEDS: NEUTRA-PHOS 250 MG PACKET GTB SCH ×2 (08:29→20:27)
[2016-12-06] MEDS: FLUTICASONE 0.05% 16 GM NAS SPRAY NASAL SCH ×2 (08:30→20:29)
[2016-12-06] MEDS: INSULIN GLARGINE [LANtus] 3 ML PEN SC SCH (08:33)
[2016-12-06] MEDS: LIDOCAINE 5% PATCH TD SCH (08:53)
[2016-12-06] MEDS: COLLAGENASE 30 GM TUBE TOP SCH (08:53)
[2016-12-06] MEDS: SILDENAFIL 20 MG TAB GTB SCH ×2 (08:54→20:28)
--- NOTE | 2016-12-06 12:04 | CONS ---
Date/Time of Note Date/Time of Note DATE: 12/06/16 TIME: 12:02 Assessment/Plan Assessment/Plan Additional Assessment/Plan Ventilator settings; AC of 14, tidal volume 500, PEEP of 5, 30% FiO2. Assessment recommendations; next 1. Patient admitted for UTI and sepsis status post treatment. 2. Chronic respiratory failure. 3. Chronic renal failure. On hemodialysis. 4. Anemia. Continue current treatment. Patient can be discharged to snf. Prognosis remains poor. Consultation Date/Type/Reason Admit Date/Time Nov 08, 2016 at 10:56 Initial Consult Date 11/08/16 Type of Consultation: Permanent Referring Provider: GRACIE KATHLEEN 24 HR Interval Summary Free Text/Dictation Patient condition stable. Remains awake and alert. Remains ventilator dependent. Has remained hemodynamically stable. General exam; elderly male, on ventilator via tracheostomy currently in no distress. Exam/Review of Systems Vital Signs Vitals Vital Signs Date Time Temp Pulse Resp B/P Pulse Ox O2 Delivery O2 Flow Rate FiO2 12/06/16 11:25 71 17 99 30 12/06/16 08:14 98.3 106/53 Intake and Output 12/05/16 12/05/16 12/06/16 15:00 23:00 07:00 Intake Total 1020 ml 620 ml Output Total 2000 ml Balance -980 ml 620 ml Exam HEENT exam is; supple neck, positive JVD. No lymphadenopathy. Midline trachea. Tracheostomy in place with clean insertion site. Patient has a multiple carious teeth. Pupils are midsize and reactive to light. Chest exam; clear to auscultation. S1-S2 audible, no murmurs. Regular rhythm. Abdomen exam : Soft, G-tube in place. Nontender. No organomegaly. Bowel sounds audible. Extremity exam; trace peripheral edema. Patient has a well-healed left below- knee amputation stump. 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 Results Result Diagram: 12/04/16 0538 12/06/16 0620 Results 24 hrs Laboratory Tests Test 12/05/16 12:30 12/05/16 18:03 12/05/16 21:11 12/06/16 01:27 Bedside Glucose 125 119 151 130 Test 12/06/16 05:18 12/06/16 06:20 12/06/16 08:31 Bedside Glucose 168 205 Sodium Level 141 Potassium Level 4.0 Chloride Level 102 Carbon Dioxide Level 28 Anion Gap 15 Blood Urea Nitrogen 36 H Creatinine 2.30 H Glucose Level 172 Calcium Level 7.8 L Medications Medications Current Medications Lidocaine (Lidoderm) 1 patch DAILY TD Last administered on 12/06/16 08:53; Admin Dose 1 PATCH; Start 11/08/16 at 15:30 Acetaminophen (Tylenol Liquid) 325 mg Q4H PRN GTB MILD PAIN LEVEL 1-3 Last administered on 11/17/16 02:37; Admin Dose 325 MG; Start 11/08/16 at 15:30 Acetaminophen (Tylenol Liquid) 650 mg Q4H PRN GTB MODERATE PAIN LEVEL 4-6 Last administered on 11/21/16 20:54; Admin Dose 650 MG; Start 11/08/16 at 15:30 Ascorbic Acid (Vitamin C) 500 mg DAILY GTB Last administered on 12/06/16 08:29 ; Admin Dose 500 MG; Start 11/09/16 at 09:00 Atorvastatin Calcium (Lipitor) 40 mg QHS GTB Last administered on 12/05/16 21: 08; Admin Dose 40 MG; Start 11/08/16 at 21:00 Carvedilol (Coreg) 3.125 mg BID GTB Last administered on 12/06/16 08:30; Admin Dose 3.125 MG; Start 11/08/16 at 21:00 Duloxetine HCl (Cymbalta) 30 mg DAILY GTB Last administered on 12/06/16 08:29 ; Admin Dose 30 MG; Start 11/09/16 at 09:00 Fluticasone Propionate (Flonase 0.05% Nasal) 1 spray BID NASAL Last administered on 12/06/16 08:30; Admin Dose 1 SPRAY; Start 11/08/16 at 21:00 Lactobacillus Acidoph/Bulgaricus (Floranex) 1 tab DAILY GTB Last administered on 12/06/16 08:29; Admin Dose 1 TAB; Start 11/09/16 at 09:00 Sildenafil Citrate (Revatio) 20 mg BID GTB Last administered on 12/06/16 08:54 ; Admin Dose 20 MG; Start 11/08/16 at 21:00 Vitamin B Complex/ Vitamin C (Berocca) 1 cap DAILY GTB Last administered on 08:29; Admin Dose 1 CAP; Start 11/09/16 at 09:00 Miscellaneous Information 1 ea NOTE XX ; Start 11/08/16 at 16:00 Glucose (Glutose) 15 gm Q15M PRN PO DECREASED GLUCOSE; Start 11/08/16 at 16:00 Glucose (Glutose) 22.5 gm Q15M PRN PO DECREASED GLUCOSE; Start 11/08/16 at 16: 00 Dextrose (D50w Syringe) 25 ml Q15M PRN IV DECREASED GLUCOSE Last administered on 11/30/16 19:05; Admin Dose 25 ML; Start 11/08/16 at 16:00 Dextrose (D50w Syringe) 50 ml Q15M PRN IV DECREASED GLUCOSE; Start 11/08/16 at 16:00 Glucagon (Glucagen) 1 mg Q15M PRN IM DECREASED GLUCOSE; Start 11/08/16 at 16:00 Glucose (Glutose) 15 gm Q15M PRN BUCCAL DECREASED GLUCOSE; Start 11/08/16 at 16 :00 Acetaminophen/ Hydrocodone Bitart ([place] (5/325)) 1 tab Q4H PRN PO SEVERE PAIN 7-10 Last administered on 12/05/16 21:23; Admin Dose 1 TAB; Start 11/08/16 at 21:00 Morphine Sulfate (morphine) 2 mg Q4H PRN IV PAIN LEVEL 7-10 Last administered on 12/05/16 11:33; Admin Dose 2 MG; Start 11/09/16 at 11:00 Collagenase (Santyl) 1 applic DAILY TOP Last administered on 12/06/16 08:53; Admin Dose 1 APPLIC; Start 11/09/16 at 16:00 Lorazepam (Ativan) 1 mg Q6H PRN IV AGITATION/ANXIETY Last administered on 21:49; Admin Dose 1 MG; Start 11/09/16 at 20:30 Sodium Phosphate (Neutra-Phos) 250 mg BID GTB Last administered on 12/06/16 08 :29; Admin Dose 250 MG; Start 11/10/16 at 09:00 Calcium/Vitamin D (Oyster Shell/ Vit-D (500/200)) 1 tab DAILY GTB Last administered on 12/06/16 08:29; Admin Dose 1 TAB; Start 11/12/16 at 11:00 Prochlorperazine (Compazine) 5 mg Q6H PRN GTB NAUSEA AND/OR VOMITING Last administered on 11/28/16 10:57; Admin Dose 5 MG; Start 11/17/16 at 17:30 Insulin Glargine (Lantus) 16 unit DAILY SC Last administered on 12/06/16 08:33 ; Admin Dose 16 UNIT; Start 11/24/16 at 09:00 Diagnostic Test (Pha) (Accu-Chek) 1 ea 02 XX Last administered on 11/30/16 02: 14; Admin Dose 1 EA; Start 11/24/16 at 02:00 Insulin Aspart (Novolog Insulin Pen) NOVOLOG *MILD* ALGORITHM Q4 SC Last administered on 12/06/16 08:34; Admin Dose 2 UNIT; Start 11/23/16 at 17:00 Lansoprazole (Prevacid) 30 mg BID@,18 GTB Last administered on 12/06/16 05: 55; Admin Dose 30 MG; Start 11/29/16 at 18:00 ELVI BLANK Dec 06, 2016 12:04
[2016-12-06] MEDS: morphine 2 MG INJ IV PRN ×2 (12:53→17:29)
--- NOTE | 2016-12-06 15:17 | PN ---
Date/Time of Note Date/Time of Note DATE: 12/06/16 TIME: 15:15 Assessment/Plan Lines/Catheters IV Catheter Type (from [facility]): Saline Lock Urinary Cath still in place: No Assessment/Plan Assessment/Plan - Esophagitis per EGD. Continue Protonix - per Dr. Hernandez is following in gastroenterology consultation. - Anemia of chronic disease, on Epogen, continue to monitor hemoglobin and hematocrit, transfuse as needed. - Ascites, SBP ruled out, Status post paracentesis 11/14, ascitic fluid culture negative. - Status post sepsis. - per Dr. Alexander in infection disease consultation. - End-stage renal disease, hemodialysis dependent. Continue hemodialysis per nephrology. - Chronic respiratory failure with tracheostomy. - per Dr. Sahu in pulmonology consultation. - Coronary artery disease with history of PCI. - Diastolic congestive heart failure, continue to remove fluids with hemodialysis. - Pulmonary hypertension - Peripheral vascular disease, status post left BKA. - Diabetes mellitus type 2, continue NovoLog per sliding scale. - Sacral decub present on admission. Continue current wound care. Pending prison facility placement. Further recommendations based on clinical course. Plan of care discussed with Dr. Miramontes. Subjective 24 Hr Interval Summary Free Text/Dictation No acute distress. Resting in bed, seems comfortable. Trach intact remains on ventilator, afebrile. Discussed with staff. Constitutional: requiring IVF, requiring O2 Exam/Review of Systems Vital Signs Vitals Vital Signs Date Time Temp Pulse Resp B/P Pulse Ox O2 Delivery O2 Flow Rate FiO2 12/06/16 13:45 81 20 96 30 12/06/16 12:15 98.8 80/47 Intake and Output 12/05/16 12/05/16 12/06/16 15:00 23:00 07:00 Intake Total 1020 ml 620 ml Output Total 2000 ml Balance -980 ml 620 ml Exam Constitutional: alert Psych: no complaints Eyes: nl conjunctiva ENMT: nl external ears & nose Neck: non-tender Respiratory: diminished breath sounds Cardiovascular: nl pulses Gastrointestinal: non-tender, soft Musculoskeletal: other Extremities: normal pulses Neurological: other (Patient is awake and alert, follows simple commands,) Skin: other Lymph: nontender Results Result Diagram: 12/04/16 0538 12/06/16 0620 Results 24 hrs Laboratory Tests Test 12/05/16 18:03 12/05/16 21:11 12/06/16 01:27 12/06/16 05:18 Bedside Glucose 119 151 130 168 Test 12/06/16 06:20 12/06/16 08:31 12/06/16 12:12 Sodium Level 141 Potassium Level 4.0 Chloride Level 102 Carbon Dioxide Level 28 Anion Gap 15 Blood Urea Nitrogen 36 H Creatinine 2.30 H Glucose Level 172 Calcium Level 7.8 L Bedside Glucose 205 204 Medications Medications Current Medications Lidocaine (Lidoderm) 1 patch DAILY TD Last administered on 12/06/16 08:53; Admin Dose 1 PATCH; Start 11/08/16 at 15:30 Acetaminophen (Tylenol Liquid) 325 mg Q4H PRN GTB MILD PAIN LEVEL 1-3 Last administered on 11/17/16 02:37; Admin Dose 325 MG; Start 11/08/16 at 15:30 Acetaminophen (Tylenol Liquid) 650 mg Q4H PRN GTB MODERATE PAIN LEVEL 4-6 Last administered on 11/21/16 20:54; Admin Dose 650 MG; Start 11/08/16 at 15:30 Ascorbic Acid (Vitamin C) 500 mg DAILY GTB Last administered on 12/06/16 08:29 ; Admin Dose 500 MG; Start 11/09/16 at 09:00 Atorvastatin Calcium (Lipitor) 40 mg QHS GTB Last administered on 12/05/16 21: 08; Admin Dose 40 MG; Start 11/08/16 at 21:00 Carvedilol (Coreg) 3.125 mg BID GTB Last administered on 12/06/16 08:30; Admin Dose 3.125 MG; Start 11/08/16 at 21:00 Duloxetine HCl (Cymbalta) 30 mg DAILY GTB Last administered on 12/06/16 08:29 ; Admin Dose 30 MG; Start 11/09/16 at 09:00 Fluticasone Propionate (Flonase 0.05% Nasal) 1 spray BID NASAL Last administered on 12/06/16 08:30; Admin Dose 1 SPRAY; Start 11/08/16 at 21:00 Lactobacillus Acidoph/Bulgaricus (Floranex) 1 tab DAILY GTB Last administered on 12/06/16 08:29; Admin Dose 1 TAB; Start 11/09/16 at 09:00 Sildenafil Citrate (Revatio) 20 mg BID GTB Last administered on 12/06/16 08:54 ; Admin Dose 20 MG; Start 11/08/16 at 21:00 Vitamin B Complex/ Vitamin C (Berocca) 1 cap DAILY GTB Last administered on 08:29; Admin Dose 1 CAP; Start 11/09/16 at 09:00 Miscellaneous Information 1 ea NOTE XX ; Start 11/08/16 at 16:00 Glucose (Glutose) 15 gm Q15M PRN PO DECREASED GLUCOSE; Start 11/08/16 at 16:00 Glucose (Glutose) 22.5 gm Q15M PRN PO DECREASED GLUCOSE; Start 11/08/16 at 16: 00 Dextrose (D50w Syringe) 25 ml Q15M PRN IV DECREASED GLUCOSE Last administered on 11/30/16 19:05; Admin Dose 25 ML; Start 11/08/16 at 16:00 Dextrose (D50w Syringe) 50 ml Q15M PRN IV DECREASED GLUCOSE; Start 11/08/16 at 16:00 Glucagon (Glucagen) 1 mg Q15M PRN IM DECREASED GLUCOSE; Start 11/08/16 at 16:00 Glucose (Glutose) 15 gm Q15M PRN BUCCAL DECREASED GLUCOSE; Start 11/08/16 at 16 :00 Acetaminophen/ Hydrocodone Bitart ([place] (5/325)) 1 tab Q4H PRN PO SEVERE PAIN 7-10 Last administered on 12/05/16 21:23; Admin Dose 1 TAB; Start 11/08/16 at 21:00 Morphine Sulfate (morphine) 2 mg Q4H PRN IV PAIN LEVEL 7-10 Last administered on 12/06/16 12:53; Admin Dose 2 MG; Start 11/09/16 at 11:00 Collagenase (Santyl) 1 applic DAILY TOP Last administered on 12/06/16 08:53; Admin Dose 1 APPLIC; Start 11/09/16 at 16:00 Lorazepam (Ativan) 1 mg Q6H PRN IV AGITATION/ANXIETY Last administered on 21:49; Admin Dose 1 MG; Start 11/09/16 at 20:30 Sodium Phosphate (Neutra-Phos) 250 mg BID GTB Last administered on 12/06/16 08 :29; Admin Dose 250 MG; Start 3/25/17 at 09:00 Calcium/Vitamin D (Oyster Shell/ Vit-D (500/200)) 1 tab DAILY GTB Last administered on 12/06/16 08:29; Admin Dose 1 TAB; Start 11/12/16 at 11:00 Prochlorperazine (Compazine) 5 mg Q6H PRN GTB NAUSEA AND/OR VOMITING Last administered on 11/28/16 10:57; Admin Dose 5 MG; Start 11/17/16 at 17:30 Insulin Glargine (Lantus) 16 unit DAILY SC Last administered on 12/06/16 08:33 ; Admin Dose 16 UNIT; Start 11/24/16 at 09:00 Diagnostic Test (Pha) (Accu-Chek) 1 ea 02 XX Last administered on 11/30/16 02: 14; Admin Dose 1 EA; Start 11/24/16 at 02:00 Insulin Aspart (Novolog Insulin Pen) NOVOLOG *MILD* ALGORITHM Q4 SC Last administered on 12/06/16 12:16; Admin Dose 2 UNIT; Start 11/23/16 at 17:00 Lansoprazole (Prevacid) 30 mg BID@,18 GTB Last administered on 12/06/16 05: 55; Admin Dose 30 MG; Start 11/29/16 at 18:00 GRACIE KATHLEEN Dec 06, 2016 15:17
--- NOTE | 2016-12-06 16:44 | CONS ---
Date/Time of Note Date/Time of Note DATE: 12/06/16 TIME: 16:43 Assessment/Plan Assessment/Plan Additional Assessment/Plan Paroxysmal atrial tachycardia Possible GI bleed Respiratory failure status post tracheostomy Diastolic congestive heart failure End-stage renal disease on hemodialysis CAD with history of PCI Diabetes Peripheral arterial disease with history of amputation Pulmonary hypertension Hypotension, improved -Blood pressure trend with intermittent hypotension, holding parameters on coreg and sildenafil. -fluid management via hemodialysis as per our nephrology colleagues Consultation Date/Type/Reason Admit Date/Time Nov 08, 2016 at 10:56 Initial Consult Date 11/09/16 Type of Consultation: cv Referring Provider: GRACIE KATHLEEN 24 HR Interval Summary Free Text/Dictation Patient seen and examined. Denies chest pain, shortness of breath Exam/Review of Systems Vital Signs Vitals Vital Signs Date Time Temp Pulse Resp B/P Pulse Ox O2 Delivery O2 Flow Rate FiO2 12/06/16 16:34 98.2 82 23 104/55 98 12/06/16 15:40 30 Intake and Output 12/05/16 12/05/16 12/06/16 15:00 23:00 07:00 Intake Total 1020 ml 620 ml Output Total 2000 ml Balance -980 ml 620 ml Exam Follows commands, no apparent distress Constitutional: alert, oriented Head: normocephalic Neck: other (Tracheostomy) Respiratory: other (Coarse breath sounds bilaterally, no wheezing) Cardiovascular: other (S1-S2 heard), regular rate and rhythm Gastrointestinal: bowel sounds, soft, tender (Mild discomfort with palpation) Extremities: edema Results Result Diagram: 12/04/16 0538 12/06/16 0620 Results 24 hrs Laboratory Tests Test 12/05/16 18:03 12/05/16 21:11 12/06/16 01:27 12/06/16 05:18 Bedside Glucose 119 151 130 168 Test 12/06/16 06:20 12/06/16 08:31 12/06/16 12:12 Sodium Level 141 Potassium Level 4.0 Chloride Level 102 Carbon Dioxide Level 28 Anion Gap 15 Blood Urea Nitrogen 36 H Creatinine 2.30 H Glucose Level 172 Calcium Level 7.8 L Bedside Glucose 205 204 Medications Medications Current Medications Lidocaine (Lidoderm) 1 patch DAILY TD Last administered on 12/06/16t 08:53; Admin Dose 1 PATCH; Start 11/08/16 at 15:30 Acetaminophen (Tylenol Liquid) 325 mg Q4H PRN GTB MILD PAIN LEVEL 1-3 Last administered on 11/17/16 02:37; Admin Dose 325 MG; Start 11/08/16 at 15:30 Acetaminophen (Tylenol Liquid) 650 mg Q4H PRN GTB MODERATE PAIN LEVEL 4-6 Last administered on 11/21/16 20:54; Admin Dose 650 MG; Start 11/08/16 at 15:30 Ascorbic Acid (Vitamin C) 500 mg DAILY GTB Last administered on 12/06/16 08:29 ; Admin Dose 500 MG; Start 11/09/16 at 09:00 Atorvastatin Calcium (Lipitor) 40 mg QHS GTB Last administered on 12/05/16 21: 08; Admin Dose 40 MG; Start 11/08/16 at 21:00 Carvedilol (Coreg) 3.125 mg BID GTB Last administered on 12/06/16 08:30; Admin Dose 3.125 MG; Start 11/08/16 at 21:00 Duloxetine HCl (Cymbalta) 30 mg DAILY GTB Last administered on 12/06/16 08:29 ; Admin Dose 30 MG; Start 11/09/16 at 09:00 Fluticasone Propionate (Flonase 0.05% Nasal) 1 spray BID NASAL Last administered on 12/06/16 08:30; Admin Dose 1 SPRAY; Start 11/08/16 at 21:00 Lactobacillus Acidoph/Bulgaricus (Floranex) 1 tab DAILY GTB Last administered on 12/06/16 08:29; Admin Dose 1 TAB; Start 11/09/16 at 09:00 Sildenafil Citrate (Revatio) 20 mg BID GTB Last administered on 12/06/16 08:54 ; Admin Dose 20 MG; Start 11/08/16 at 21:00 Vitamin B Complex/ Vitamin C (Berocca) 1 cap DAILY GTB Last administered on 08:29; Admin Dose 1 CAP; Start 11/09/16 at 09:00 Miscellaneous Information 1 ea NOTE XX ; Start 11/08/16 at 16:00 Glucose (Glutose) 15 gm Q15M PRN PO DECREASED GLUCOSE; Start 11/08/16 at 16:00 Glucose (Glutose) 22.5 gm Q15M PRN PO DECREASED GLUCOSE; Start 11/08/16 at 16: 00 Dextrose (D50w Syringe) 25 ml Q15M PRN IV DECREASED GLUCOSE Last administered on 11/30/16 19:05; Admin Dose 25 ML; Start 11/08/16 at 16:00 Dextrose (D50w Syringe) 50 ml Q15M PRN IV DECREASED GLUCOSE; Start 11/08/16 at 16:00 Glucagon (Glucagen) 1 mg Q15M PRN IM DECREASED GLUCOSE; Start 11/08/16 at 16:00 Glucose (Glutose) 15 gm Q15M PRN BUCCAL DECREASED GLUCOSE; Start 11/08/16 at 16 :00 Acetaminophen/ Hydrocodone Bitart ([place] (5/325)) 1 tab Q4H PRN PO SEVERE PAIN 7-10 Last administered on 12/05/16 21:23; Admin Dose 1 TAB; Start 11/08/16 at 21:00 Morphine Sulfate (morphine) 2 mg Q4H PRN IV PAIN LEVEL 7-10 Last administered on 12/06/16 12:53; Admin Dose 2 MG; Start 11/09/16 at 11:00 Collagenase (Santyl) 1 applic DAILY TOP Last administered on 12/06/16 08:53; Admin Dose 1 APPLIC; Start 11/09/16 at 16:00 Lorazepam (Ativan) 1 mg Q6H PRN IV AGITATION/ANXIETY Last administered on 21:49; Admin Dose 1 MG; Start 11/09/16 at 20:30 Sodium Phosphate (Neutra-Phos) 250 mg BID GTB Last administered on 12/06/16 08 :29; Admin Dose 250 MG; Start 11/10/16 at 09:00 Calcium/Vitamin D (Oyster Shell/ Vit-D (500/200)) 1 tab DAILY GTB Last administered on 12/06/16 08:29; Admin Dose 1 TAB; Start 11/12/16 at 11:00 Prochlorperazine (Compazine) 5 mg Q6H PRN GTB NAUSEA AND/OR VOMITING Last administered on 11/28/16 10:57; Admin Dose 5 MG; Start 11/17/16 at 17:30 Insulin Glargine (Lantus) 16 unit DAILY SC Last administered on 12/06/16 08:33 ; Admin Dose 16 UNIT; Start 11/24/16 at 09:00 Diagnostic Test (Pha) (Accu-Chek) 1 ea 02 XX Last administered on 11/30/16 02: 14; Admin Dose 1 EA; Start 11/24/16 at 02:00 Insulin Aspart (Novolog Insulin Pen) NOVOLOG *MILD* ALGORITHM Q4 SC Last administered on 12/06/16 12:16; Admin Dose 2 UNIT; Start 11/23/16 at 17:00 Lansoprazole (Prevacid) 30 mg BID@06,18 GTB Last administered on 12/06/16 05: 55; Admin Dose 30 MG; Start 11/29/16 at 18:00 Solo Leon DO Dec 06, 2016 16:44
[2016-12-06] MEDS: ATORVASTATIN 40 MG TAB GTB SCH (20:28)
[2016-12-06] MEDS: HYDROCODONE/APAP (5/325) TAB PO PRN (20:28)
[2016-12-07] VITALS (32 sets, daily range): BP systolic 78–127; BP diastolic 30–68; PULSE 66–92; RESP 14–28
[2016-12-07] MEDS: morphine 2 MG INJ IV PRN ×3 (00:46→14:36)
[2016-12-07] MEDS: INSULIN ASPART [NOVOLOG] 3 ML PEN SC SCH ×6 (00:46→20:05)
[2016-12-07] MEDS: ACCU-CHEK XX SCH (02:00)
[2016-12-07] MEDS: LANSOPRAZOLE 30 MG CAP GTB SCH ×2 (05:18→17:37)
[2016-12-07 06:06] LABS: ADD SCAN DIFF NO
[2016-12-07 06:55] LABS: CALCIUM 7.9 mg/dl (8.4-10.2); CREATININE 2.69 mg/dl (0.61-1.24); POTASSIUM 4.5 mmol/L (3.5-5.1)
[2016-12-07 07:04] LABS: BASOPHILS % 0.3 % (0.0-2.0); EOSINOPHILS # 0.2 10^3/ul (0.0-0.5); EOSINOPHILS % 1.8 % (0.0-7.0); HEMATOCRIT 34.5 % (42.0-52.0); HEMOGLOBIN 10.8 g/dl (14.0-18.0); LYMPHOCYTES % 8.2 % (15.0-51.0); MEAN CORPUSCULAR HEMOGLOBIN 31.5 pg (29.0-33.0); MEAN CORPUSCULAR HGB CONC 31.3 g/dl (32.0-37.0); MEAN CORPUSCULAR VOLUME 100.6 fl (82.0-101.0); MEAN PLATELET VOLUME 9.1 fl (7.4-10.4); MONOCYTE # 1.3 10^3/ul (0.3-0.9); MONOCYTES % 10.6 % (0.0-11.0); NEUTROPHIL # 9.6 10^3/ul (1.6-7.5); NEUTROPHILS % 78.5 % (39.0-77.0); PLATELET COUNT 213 10^3/UL (140-415); RED BLOOD COUNT 3.43 10^6/ul (4.70-6.10); RED CELL DISTRIBUTION WIDTH 17.4 % (11.5-14.5); WHITE BLOOD COUNT 12.2 10^3/ul (4.8-10.8)
[2016-12-07] MEDS: LORAZEPAM 2 MG INJ IV PRN ×2 (09:03→20:53)
--- NOTE | 2016-12-07 09:03 | PN ---
DATE: 12/07/2016 SUBJECTIVE: The patient is stable, no acute events overnight. No fevers, chills, nausea, vomiting. OBJECTIVE: VITAL SIGNS: Blood pressure 120/56, respirations 18, pulse 75, temperature 98.0. HEENT: Head is normocephalic. NECK: Supple. HEART: Regular rate. LUNGS: Show diminished breath sounds at the base. ABDOMEN: Soft, nontender to palpation. No rebound or guarding. EXTREMITIES: Negative for clubbing, cyanosis. Positive edema. DERMATOLOGIC: No rashes. MUSCULOSKELETAL: No joint effusions. NEUROLOGIC: No change in exam. MEDICATIONS: The patient's medications have been reviewed. LABORATORY DATA: Shows sodium 138, potassium 4.5, BUN 44, creatinine 2.65. White count 12.2, hemog lobin 10.9, hematocrit 34.4, and platelet count is 213. ASSESSMENT AND PLAN: 1. End-stage renal disease. The patient is scheduled for dialysis today. Will dialyze for 3 hours 3 K bath, calcium 2.5, will ultrafiltrate as tolerated. 2. Anemia of end-stage renal disease. Continue to monitor H and H levels. Continue Epogen. 3. Mineral bone disorder. Continue to monitor calcium and phosphorus levels. 4. Ventilatory-dependent respiratory failure. Vent settings have been reviewed. Continue to monit or. Follow up with pulmonary. Volume overload, congestive heart failure. Continue current medical management. Continue ultrafiltration dialysis. 5. Dysphagia, status post percutaneous endoscopic gastrostomy, continue tube feed. 6. Coronary artery disease. Continue current medical management. Follow up with cardiology. 7. Diabetes. Continue current insulin regimen. 8. Sacral decubitus wound. Continue wound care. 9. Sepsis. 10. Pulmonary hypertension. Continue sildenafil. Dictated By: SARAHI RINALDI/OLESYA Conf#: [id number] DID#: [id number]
[2016-12-07] MEDS: CALCIUM/VITAMIN D (500/200) TAB GTB SCH (09:05)
[2016-12-07] MEDS: ASCORBIC ACID 500 MG TAB GTB SCH (09:05)
[2016-12-07] MEDS: FLUTICASONE 0.05% 16 GM NAS SPRAY NASAL SCH ×2 (09:05→20:05)
[2016-12-07] MEDS: NEUTRA-PHOS 250 MG PACKET GTB SCH ×2 (09:05→20:52)
[2016-12-07] MEDS: LACTOBACILLUS CHEW TAB GTB SCH (09:06)
[2016-12-07] MEDS: VITAMIN B COMPLEX/VIT C CAP GTB SCH (09:06)
[2016-12-07] MEDS: DULOXETINE 30 MG CAP DR GTB SCH (09:06)
[2016-12-07] MEDS: SILDENAFIL 20 MG TAB GTB SCH ×2 (09:06→20:53)
[2016-12-07] MEDS: INSULIN GLARGINE [LANtus] 3 ML PEN SC SCH (09:18)
[2016-12-07] MEDS: COLLAGENASE 30 GM TUBE TOP SCH (09:32)
[2016-12-07] MEDS: LIDOCAINE 5% PATCH TD SCH (09:32)
--- NOTE | 2016-12-07 12:33 | CONS ---
Date/Time of Note Date/Time of Note DATE: 12/07/16 TIME: 12:31 Assessment/Plan Assessment/Plan Additional Assessment/Plan Paroxysmal atrial tachycardia Possible GI bleed Respiratory failure status post tracheostomy Diastolic congestive heart failure End-stage renal disease on hemodialysis CAD with history of PCI Diabetes Peripheral arterial disease with history of amputation Pulmonary hypertension Hypotension, improved -Blood pressure trend improved with intermittent hypotension, holding parameters on coreg and sildenafil. -fluid management via hemodialysis as per our nephrology colleagues Consultation Date/Type/Reason Admit Date/Time Nov 08, 2016 at 10:56 Initial Consult Date 11/09/16 Type of Consultation: cv Referring Provider: GRACIE KATHLEEN 24 HR Interval Summary Free Text/Dictation Patient seen and examined Exam/Review of Systems Vital Signs Vitals Vital Signs Date Time Temp Pulse Resp B/P Pulse Ox O2 Delivery O2 Flow Rate FiO2 12/07/16 12:27 79 12/07/16 11:30 21 93 30 12/07/16 11:20 97.7 110/65 Intake and Output 12/06/16 12/06/16 12/07/16 15:00 23:00 07:00 Intake Total 400 ml 560 ml Output Total 300 ml Balance 100 ml 560 ml Exam Sleeping but arousable, no apparent distress Head: normocephalic Neck: other (Tracheostomy) Respiratory: other (Coarse breath sounds bilaterally, no wheezing) Cardiovascular: other (S1-S2 heard), regular rate and rhythm Gastrointestinal: bowel sounds, distended, non-tender, soft Extremities: edema Results Result Diagram: 12/07/16 0455 12/07/16 0540 Results 24 hrs Laboratory Tests Test 12/06/16 17:32 12/06/16 20:38 12/07/16 00:36 12/07/16 04:55 Bedside Glucose 155 134 104 White Blood Count 12.2 #H Red Blood Count 3.43 L Hemoglobin 10.8 L Hematocrit 34.5 L Mean Corpuscular Volume 100.6 Mean Corpuscular Hemoglobin 31.5 Mean Corpuscular Hemoglobin Concent 31.3 L Red Cell Distribution Width 17.4 H Platelet Count 213 Mean Platelet Volume 9.1 Neutrophils % 78.5 H Lymphocytes % 8.2 L Monocytes % 10.6 Eosinophils % 1.8 Basophils % 0.3 Nucleated Red Blood Cells % 0.0 Neutrophils # 9.6 H Lymphocytes # 1.0 Monocytes # 1.3 H Eosinophils # 0.2 Basophils # 0.0 Nucleated Red Blood Cells # 0.0 Test 12/07/16 05:16 12/07/16 05:40 12/07/16 09:16 Bedside Glucose 173 190 Sodium Level 138 Potassium Level 4.5 Chloride Level 104 Carbon Dioxide Level 27 Anion Gap 12 Blood Urea Nitrogen 44 H Creatinine 2.69 H Glucose Level 160 Calcium Level 7.9 L Medications Medications Current Medications Lidocaine (Lidoderm) 1 patch DAILY TD Last administered on 12/07/16 09:32; Admin Dose 1 PATCH; Start 11/08/16 at 15:30 Acetaminophen (Tylenol Liquid) 325 mg Q4H PRN GTB MILD PAIN LEVEL 1-3 Last administered on 11/17/16 02:37; Admin Dose 325 MG; Start 11/08/16 at 15:30 Acetaminophen (Tylenol Liquid) 650 mg Q4H PRN GTB MODERATE PAIN LEVEL 4-6 Last administered on 11/21/16 20:54; Admin Dose 650 MG; Start 11/08/16 at 15:30 Ascorbic Acid (Vitamin C) 500 mg DAILY GTB Last administered on 12/07/16 09:05 ; Admin Dose 500 MG; Start 11/09/16 at 09:00 Atorvastatin Calcium (Lipitor) 40 mg QHS GTB Last administered on 12/06/16 20: 28; Admin Dose 40 MG; Start 11/08/16 at 21:00 Carvedilol (Coreg) 3.125 mg BID GTB Last administered on 12/07/16 09:06; Admin Dose 3.125 MG; Start 11/08/16 at 21:00 Duloxetine HCl (Cymbalta) 30 mg DAILY GTB Last administered on 12/07/16 09:06 ; Admin Dose 30 MG; Start 11/09/16 at 09:00 Fluticasone Propionate (Flonase 0.05% Nasal) 1 spray BID NASAL Last administered on 12/07/16 09:05; Admin Dose 1 SPRAY; Start 11/08/16 at 21:00 Lactobacillus Acidoph/Bulgaricus (Floranex) 1 tab DAILY GTB Last administered on 12/07/16 09:06; Admin Dose 1 TAB; Start 11/09/16 at 09:00 Sildenafil Citrate (Revatio) 20 mg BID GTB Last administered on 12/07/16 09:06 ; Admin Dose 20 MG; Start 11/08/16 at 21:00 Vitamin B Complex/ Vitamin C (Berocca) 1 cap DAILY GTB Last administered on 09:06; Admin Dose 1 CAP; Start 11/09/16 at 09:00 Miscellaneous Information 1 ea NOTE XX ; Start 11/08/16 at 16:00 Glucose (Glutose) 15 gm Q15M PRN PO DECREASED GLUCOSE; Start 11/08/16 at 16:00 Glucose (Glutose) 22.5 gm Q15M PRN PO DECREASED GLUCOSE; Start 11/08/16 at 16: 00 Dextrose (D50w Syringe) 25 ml Q15M PRN IV DECREASED GLUCOSE Last administered on 11/30/16 19:05; Admin Dose 25 ML; Start 11/08/16 at 16:00 Dextrose (D50w Syringe) 50 ml Q15M PRN IV DECREASED GLUCOSE; Start 11/08/16 at 16:00 Glucagon (Glucagen) 1 mg Q15M PRN IM DECREASED GLUCOSE; Start 11/08/16 at 16:00 Glucose (Glutose) 15 gm Q15M PRN BUCCAL DECREASED GLUCOSE; Start 11/08/16 at 16 :00 Acetaminophen/ Hydrocodone Bitart ([place] (5/325)) 1 tab Q4H PRN PO SEVERE PAIN 7-10 Last administered on 12/06/16 20:28; Admin Dose 1 TAB; Start 11/08/16 at 21:00 Morphine Sulfate (morphine) 2 mg Q4H PRN IV PAIN LEVEL 7-10 Last administered on 12/07/16 05:19; Admin Dose 2 MG; Start 11/09/16 at 11:00 Collagenase (Santyl) 1 applic DAILY TOP Last administered on 12/07/16 09:32; Admin Dose 1 APPLIC; Start 11/09/16 at 16:00 Lorazepam (Ativan) 1 mg Q6H PRN IV AGITATION/ANXIETY Last administered on 09:03; Admin Dose 1 MG; Start 11/09/16 at 20:30 Sodium Phosphate (Neutra-Phos) 250 mg BID GTB Last administered on 12/07/16 09 :05; Admin Dose 250 MG; Start 11/10/16 at 09:00 Calcium/Vitamin D (Oyster Shell/ Vit-D (500/200)) 1 tab DAILY GTB Last administered on 12/07/16 09:05; Admin Dose 1 TAB; Start 11/12/16 at 11:00 Prochlorperazine (Compazine) 5 mg Q6H PRN GTB NAUSEA AND/OR VOMITING Last administered on 11/28/16 10:57; Admin Dose 5 MG; Start 11/17/16 at 17:30 Diagnostic Test (Pha) (Accu-Chek) 1 ea 02 XX Last administered on 11/30/16 02: 14; Admin Dose 1 EA; Start 11/24/16 at 02:00 Insulin Aspart (Novolog Insulin Pen) NOVOLOG *MILD* ALGORITHM Q4 SC Last administered on 12/07/16 09:17; Admin Dose 2 UNIT; Start 11/23/16 at 17:00 Lansoprazole (Prevacid) 30 mg BID@06,18 GTB Last administered on 12/07/16 05: 18; Admin Dose 30 MG; Start 11/29/16 at 18:00 Insulin Glargine (Lantus) 18 unit DAILY SC Last administered on 12/07/16 09:18 ; Admin Dose 18 UNIT; Start 12/07/16 at 09:00 Solo Leon DO Dec 07, 2016 12:33
--- NOTE | 2016-12-07 15:20 | PN ---
Date/Time of Note Date/Time of Note DATE: 12/07/16 TIME: 15:16 Assessment/Plan VTE Prophylaxis VTE Prophylaxis Intervention: SCD's Lines/Catheters IV Catheter Type (from [facility]): [facility] Urinary Cath still in place: No Assessment/Plan Chief Complaint/Hosp Course Assessment/Plan - Esophagitis per EGD. Continue Protonix Dr. Hernandez is following in gastroenterology consultation. - Anemia of chronic disease, on Epogen, continue to monitor hemoglobin and hematocrit, transfuse as needed. - Ascites, SBP ruled out, Status post paracentesis 11/14, ascitic fluid culture negative. - Status post sepsis. Dr. Benjamin deluna is following in infection disease consultation. - End-stage renal disease, hemodialysis dependent. Continue hemodialysis per nephrology. - Chronic respiratory failure with tracheostomy. Dr. Sahu is following in pulmonology consultation. - Coronary artery disease with history of PCI. - Diastolic congestive heart failure, continue to remove fluids with hemodialysis. - Pulmonary hypertension - Peripheral vascular disease, status post left BKA. - Diabetes mellitus type 2, continue NovoLog per sliding scale. - Sacral decub present on admission. Continue current wound care. Pending alf facility placement. Further recommendations based on clinical course. Plan of care discussed with Dr. Miramontes. Problems: Subjective 24 Hr Interval Summary Free Text/Dictation Patient tolerates G-tube feeding well, mild leukocytosis, remains afebrile, check chest x-ray. Exam/Review of Systems Vital Signs Vitals Vital Signs Date Time Temp Pulse Resp B/P Pulse Ox O2 Delivery O2 Flow Rate FiO2 12/07/16 15:09 97.8 75 18 120/68 96 12/07/16 13:40 30 Intake and Output 12/06/16 12/06/16 12/07/16 14:59 22:59 06:59 Intake Total 400 ml 560 ml Output Total 300 ml Balance 100 ml 560 ml Exam GENERAL: Well-developed, well-nourished male, currently on vent support via trach. HEENT: Head is atraumatic, normocephalic. PERRLA. NECK: Supple. Tracheostomy at the base of the neck. LUNGS: Slightly diminished at the bases. Clear in the upper lobes. HEART: Normal S1, S2. No murmurs, gallops, clicks, rubs noted. ABDOMEN: Protuberant, soft, nondistended, nontender. G-tube in place. EXTREMITIES: The patient is status post left BKA. Right lower extremity with mild edema. The patient has a left upper extremity arteriovenous fistula with palpable thrill and audible bruit. SKIN: No rash, petechiae noted. Sacral decubitus ulcer. NEUROLOGIC: The patient is awake, alert. Results Result Diagram: 12/07/16 0455 12/07/16 0540 Results 24 hrs Laboratory Tests Test 12/06/16 17:32 12/06/16 20:38 12/07/16 00:36 12/07/16 04:55 Bedside Glucose 155 134 104 White Blood Count 12.2 #H Red Blood Count 3.43 L Hemoglobin 10.8 L Hematocrit 34.5 L Mean Corpuscular Volume 100.6 Mean Corpuscular Hemoglobin 31.5 Mean Corpuscular Hemoglobin Concent 31.3 L Red Cell Distribution Width 17.4 H Platelet Count 213 Mean Platelet Volume 9.1 Neutrophils % 78.5 H Lymphocytes % 8.2 L Monocytes % 10.6 Eosinophils % 1.8 Basophils % 0.3 Nucleated Red Blood Cells % 0.0 Neutrophils # 9.6 H Lymphocytes # 1.0 Monocytes # 1.3 H Eosinophils # 0.2 Basophils # 0.0 Nucleated Red Blood Cells # 0.0 Test 12/07/16 05:16 12/07/16 05:40 12/07/16 09:16 12/07/16 13:08 Bedside Glucose 173 190 181 Sodium Level 138 Potassium Level 4.5 Chloride Level 104 Carbon Dioxide Level 27 Anion Gap 12 Blood Urea Nitrogen 44 H Creatinine 2.69 H Glucose Level 160 Calcium Level 7.9 L Medications Medications Current Medications Lidocaine (Lidoderm) 1 patch DAILY TD Last administered on 12/07/16 09:32; Admin Dose 1 PATCH; Start 11/08/16 at 15:30 Acetaminophen (Tylenol Liquid) 325 mg Q4H PRN GTB MILD PAIN LEVEL 1-3 Last administered on 11/17/16 02:37; Admin Dose 325 MG; Start 11/08/16 at 15:30 Acetaminophen (Tylenol Liquid) 650 mg Q4H PRN GTB MODERATE PAIN LEVEL 4-6 Last administered on 11/21/16 20:54; Admin Dose 650 MG; Start 11/08/16 at 15:30 Ascorbic Acid (Vitamin C) 500 mg DAILY GTB Last administered on 12/07/16 09:05 ; Admin Dose 500 MG; Start 11/09/16 at 09:00 Atorvastatin Calcium (Lipitor) 40 mg QHS GTB Last administered on 12/06/16 20: 28; Admin Dose 40 MG; Start 11/08/16 at 21:00 Carvedilol (Coreg) 3.125 mg BID GTB Last administered on 12/07/16 09:06; Admin Dose 3.125 MG; Start 11/08/16 at 21:00 Duloxetine HCl (Cymbalta) 30 mg DAILY GTB Last administered on 12/07/16 09:06 ; Admin Dose 30 MG; Start 11/09/16 at 09:00 Fluticasone Propionate (Flonase 0.05% Nasal) 1 spray BID NASAL Last administered on 12/07/16 09:05; Admin Dose 1 SPRAY; Start 11/08/16 at 21:00 Lactobacillus Acidoph/Bulgaricus (Floranex) 1 tab DAILY GTB Last administered on 12/07/16 09:06; Admin Dose 1 TAB; Start 11/09/16 at 09:00 Sildenafil Citrate (Revatio) 20 mg BID GTB Last administered on 12/07/16 09:06 ; Admin Dose 20 MG; Start 11/08/16 at 21:00 Vitamin B Complex/ Vitamin C (Berocca) 1 cap DAILY GTB Last administered on 09:06; Admin Dose 1 CAP; Start 11/09/16 at 09:00 Miscellaneous Information 1 ea NOTE XX ; Start 11/08/16 at 16:00 Glucose (Glutose) 15 gm Q15M PRN PO DECREASED GLUCOSE; Start 11/08/16 at 16:00 Glucose (Glutose) 22.5 gm Q15M PRN PO DECREASED GLUCOSE; Start 11/08/16 at 16: 00 Dextrose (D50w Syringe) 25 ml Q15M PRN IV DECREASED GLUCOSE Last administered on 11/30/16 19:05; Admin Dose 25 ML; Start 11/08/16 at 16:00 Dextrose (D50w Syringe) 50 ml Q15M PRN IV DECREASED GLUCOSE; Start 11/08/16 at 16:00 Glucagon (Glucagen) 1 mg Q15M PRN IM DECREASED GLUCOSE; Start 11/08/16 at 16:00 Glucose (Glutose) 15 gm Q15M PRN BUCCAL DECREASED GLUCOSE; Start 11/08/16 at 16 :00 Acetaminophen/ Hydrocodone Bitart ([place] (5/325)) 1 tab Q4H PRN PO SEVERE PAIN 7-10 Last administered on 12/06/16 20:28; Admin Dose 1 TAB; Start 11/08/16 at 21:00 Morphine Sulfate (morphine) 2 mg Q4H PRN IV PAIN LEVEL 7-10 Last administered on 12/07/16 14:36; Admin Dose 2 MG; Start 11/09/16 at 11:00 Collagenase (Santyl) 1 applic DAILY TOP Last administered on 12/07/16 09:32; Admin Dose 1 APPLIC; Start 11/09/16 at 16:00 Lorazepam (Ativan) 1 mg Q6H PRN IV AGITATION/ANXIETY Last administered on 09:03; Admin Dose 1 MG; Start 11/09/16 at 20:30 Sodium Phosphate (Neutra-Phos) 250 mg BID GTB Last administered on 12/07/16 09 :05; Admin Dose 250 MG; Start 11/10/16 at 09:00 Calcium/Vitamin D (Oyster Shell/ Vit-D (500/200)) 1 tab DAILY GTB Last administered on 12/07/16 09:05; Admin Dose 1 TAB; Start 11/12/16 at 11:00 Prochlorperazine (Compazine) 5 mg Q6H PRN GTB NAUSEA AND/OR VOMITING Last administered on 11/28/16 10:57; Admin Dose 5 MG; Start 11/17/16 at 17:30 Diagnostic Test (Pha) (Accu-Chek) 1 ea 02 XX Last administered on 11/30/16 02: 14; Admin Dose 1 EA; Start 11/24/16 at 02:00 Insulin Aspart (Novolog Insulin Pen) NOVOLOG *MILD* ALGORITHM Q4 SC Last administered on 12/07/16 13:13; Admin Dose 2 UNIT; Start 11/23/16 at 17:00 Lansoprazole (Prevacid) 30 mg BID@06,18 GTB Last administered on 12/07/16 05: 18; Admin Dose 30 MG; Start 11/29/16 at 18:00 Insulin Glargine (Lantus) 18 unit DAILY SC Last administered on 12/07/16t 09:18 ; Admin Dose 18 UNIT; Start 12/07/16 at 09:00 MARY DOMINGUEZ Dec 07, 2016 15:20
--- NOTE | 2016-12-07 16:34 | CONS ---
Date/Time of Note Date/Time of Note DATE: 12/07/16 TIME: 16:33 Consult Date/Type/Reason Admit Date/Time Nov 08, 2016 at 10:56 Initial Consult Date 11/09/16 Type of Consultation: pulmonary Ordering Provider: GRACIE KATHLEEN Subjective Patient remains awake alert comfortable no acute distress Objective Vital Signs Date Time Temp Pulse Resp B/P Pulse Ox O2 Delivery O2 Flow Rate FiO2 12/07/16 16:18 73 12/07/16 15:40 14 95 30 12/07/16 15:09 97.8 120/68 Intake and Output 12/06/16 12/06/16 12/07/16 14:59 22:59 06:59 Intake Total 400 ml 560 ml Output Total 300 ml Balance 100 ml 560 ml Exam PHYSICAL EXAMINATION GENERAL: Elderly gentleman, on mechanical ventilation via tracheostomy VITAL SIGNS: see below. HEENT: Pupils equal, round, and reactive to light. Tracheostomy site clean and intact. CARDIAC: S1, S2, 1/6 systolic murmur CHEST: Diminished air entry bilaterally. ABDOMEN: Mildly distended. No bowel sounds. EXTREMITIES: No cyanosis, clubbing edema +1 NEUROLOGIC: Generalized weakness Results/Medications Result Diagram: 12/07/16 0455 12/07/16 0540 Results 24 hrs Laboratory Tests Test 12/06/16 17:32 12/06/16 20:38 12/07/16 00:36 12/07/16 04:55 Bedside Glucose 155 134 104 White Blood Count 12.2 #H Red Blood Count 3.43 L Hemoglobin 10.8 L Hematocrit 34.5 L Mean Corpuscular Volume 100.6 Mean Corpuscular Hemoglobin 31.5 Mean Corpuscular Hemoglobin Concent 31.3 L Red Cell Distribution Width 17.4 H Platelet Count 213 Mean Platelet Volume 9.1 Neutrophils % 78.5 H Lymphocytes % 8.2 L Monocytes % 10.6 Eosinophils % 1.8 Basophils % 0.3 Nucleated Red Blood Cells % 0.0 Neutrophils # 9.6 H Lymphocytes # 1.0 Monocytes # 1.3 H Eosinophils # 0.2 Basophils # 0.0 Nucleated Red Blood Cells # 0.0 Test 12/07/16 05:16 12/07/16 05:40 12/07/16 09:16 12/07/16 13:08 Bedside Glucose 173 190 181 Sodium Level 138 Potassium Level 4.5 Chloride Level 104 Carbon Dioxide Level 27 Anion Gap 12 Blood Urea Nitrogen 44 H Creatinine 2.69 H Glucose Level 160 Calcium Level 7.9 L Medications Current Medications Lidocaine (Lidoderm) 1 patch DAILY TD Last administered on 12/07/16 09:32; Admin Dose 1 PATCH; Start 11/08/16 at 15:30 Acetaminophen (Tylenol Liquid) 325 mg Q4H PRN GTB MILD PAIN LEVEL 1-3 Last administered on 11/17/16 02:37; Admin Dose 325 MG; Start 11/08/16 at 15:30 Acetaminophen (Tylenol Liquid) 650 mg Q4H PRN GTB MODERATE PAIN LEVEL 4-6 Last administered on 11/21/16 20:54; Admin Dose 650 MG; Start 11/08/16 at 15:30 Ascorbic Acid (Vitamin C) 500 mg DAILY GTB Last administered on 12/07/16 09:05 ; Admin Dose 500 MG; Start 11/09/16 at 09:00 Atorvastatin Calcium (Lipitor) 40 mg QHS GTB Last administered on 12/06/16 20: 28; Admin Dose 40 MG; Start 11/08/16 at 21:00 Carvedilol (Coreg) 3.125 mg BID GTB Last administered on 12/07/16 09:06; Admin Dose 3.125 MG; Start 11/08/16 at 21:00 Duloxetine HCl (Cymbalta) 30 mg DAILY GTB Last administered on 12/07/16 09:06 ; Admin Dose 30 MG; Start 11/09/16 at 09:00 Fluticasone Propionate (Flonase 0.05% Nasal) 1 spray BID NASAL Last administered on 12/07/16 09:05; Admin Dose 1 SPRAY; Start 11/08/16 at 21:00 Lactobacillus Acidoph/Bulgaricus (Floranex) 1 tab DAILY GTB Last administered on 12/07/16 09:06; Admin Dose 1 TAB; Start 11/09/16 at 09:00 Sildenafil Citrate (Revatio) 20 mg BID GTB Last administered on 12/07/16 09:06 ; Admin Dose 20 MG; Start 11/08/16 at 21:00 Vitamin B Complex/ Vitamin C (Berocca) 1 cap DAILY GTB Last administered on 09:06; Admin Dose 1 CAP; Start 11/09/16 at 09:00 Miscellaneous Information 1 ea NOTE XX ; Start 11/08/16 at 16:00 Glucose (Glutose) 15 gm Q15M PRN PO DECREASED GLUCOSE; Start 11/08/16 at 16:00 Glucose (Glutose) 22.5 gm Q15M PRN PO DECREASED GLUCOSE; Start 11/08/16 at 16: 00 Dextrose (D50w Syringe) 25 ml Q15M PRN IV DECREASED GLUCOSE Last administered on 11/30/16 19:05; Admin Dose 25 ML; Start 11/08/16 at 16:00 Dextrose (D50w Syringe) 50 ml Q15M PRN IV DECREASED GLUCOSE; Start 11/08/16 at 16:00 Glucagon (Glucagen) 1 mg Q15M PRN IM DECREASED GLUCOSE; Start 11/08/16 at 16:00 Glucose (Glutose) 15 gm Q15M PRN BUCCAL DECREASED GLUCOSE; Start 11/08/16 at 16 :00 Acetaminophen/ Hydrocodone Bitart ([place] (5/325)) 1 tab Q4H PRN PO SEVERE PAIN 7-10 Last administered on 12/06/16 20:28; Admin Dose 1 TAB; Start 11/08/16 at 21:00 Morphine Sulfate (morphine) 2 mg Q4H PRN IV PAIN LEVEL 7-10 Last administered on 12/07/16 14:36; Admin Dose 2 MG; Start 11/09/16 at 11:00 Collagenase (Santyl) 1 applic DAILY TOP Last administered on 12/07/16 09:32; Admin Dose 1 APPLIC; Start 11/09/16 at 16:00 Lorazepam (Ativan) 1 mg Q6H PRN IV AGITATION/ANXIETY Last administered on 09:03; Admin Dose 1 MG; Start 11/09/16 at 20:30 Sodium Phosphate (Neutra-Phos) 250 mg BID GTB Last administered on 12/07/16 09 :05; Admin Dose 250 MG; Start 11/10/16 at 09:00 Calcium/Vitamin D (Oyster Shell/ Vit-D (500/200)) 1 tab DAILY GTB Last administered on 12/07/16 09:05; Admin Dose 1 TAB; Start 11/12/16 at 11:00 Prochlorperazine (Compazine) 5 mg Q6H PRN GTB NAUSEA AND/OR VOMITING Last administered on 11/28/16 10:57; Admin Dose 5 MG; Start 11/17/16 at 17:30 Diagnostic Test (Pha) (Accu-Chek) 1 ea 02 XX Last administered on 11/30/16 02: 14; Admin Dose 1 EA; Start 11/24/16 at 02:00 Insulin Aspart (Novolog Insulin Pen) NOVOLOG *MILD* ALGORITHM Q4 SC Last administered on 12/07/16 13:13; Admin Dose 2 UNIT; Start 11/23/16 at 17:00 Lansoprazole (Prevacid) 30 mg BID@06,18 GTB Last administered on 12/07/16 05: 18; Admin Dose 30 MG; Start 11/29/16 at 18:00 Insulin Glargine (Lantus) 18 unit DAILY SC Last administered on 12/07/16 09:18 ; Admin Dose 18 UNIT; Start 12/07/16 at 09:00 Assessment/Plan Chief Complaint/Hosp Course Assessment 1. Vent dependent respiratory failure 2. End-stage renal failure on hemodialysis 3. Recent urinary tract infection with sepsis 4. Anemia of chronic disease and possibly secondary to renal dysfunction 5. Dysphagia with G-tube Plan 1. Continue mechanical ventilation 2. Tube feeding as tolerated 3. Hemodialysis per nephrology 4. Antibiotics per infectious diseases 5. DVT and GI prophylaxis Disposition Discharge planning Problems: VALERIE CAMARENA MD, [facility] Dec 07, 2016 16:33
--- NOTE | 2016-12-07 17:20 | RADRPT ---
PROCEDURE: CHEST 1VW CLINICAL INDICATION: Shortness of breath TECHNIQUE: Single frontal view of the chest was obtained COMPARISON: 11/23/2016 FINDINGS: Stable tracheostomy. The cardiac size is mildly enlarged, stable. Aortic vascular calcifications are demonstrated. There is no pulmonary vascular congestion. Bibasilar atelectasis. The lungs are otherwise clear. No consolidation, effusion, or pneumothorax. Mild degenerative changes of the visualized osseous structures are visualized. IMPRESSION: 1. Stable cardiomegaly with bibasilar atelectasis. 2. Atherosclerosis. RPTAT:PP .Tal Holloway MD, Date Time Electronically viewed and signed by .Tal Holloway MD, on 12/07/2016 17:20 .V/
[2016-12-07] MEDS: ATORVASTATIN 40 MG TAB GTB SCH (20:52)
[2016-12-07] MEDS: HYDROCODONE/APAP (5/325) TAB PO PRN (20:53)
[2016-12-07] MEDS: EPOETIN 10000 UNITS/1 ML INJ (ESRD) SC SCH (22:15)
[2016-12-08] VITALS (25 sets, daily range): BP systolic 88–131; BP diastolic 42–67; PULSE 60–90; RESP 14–30
[2016-12-08] MEDS: INSULIN ASPART [NOVOLOG] 3 ML PEN SC SCH ×6 (00:50→21:00)
[2016-12-08] MEDS: ACCU-CHEK XX SCH (01:05)
[2016-12-08] MEDS: LANSOPRAZOLE 30 MG CAP GTB SCH ×2 (05:28→18:50)
[2016-12-08 06:42] LABS: ADD SCAN DIFF NO
[2016-12-08 06:59] LABS: BASOPHILS % 0.5 % (0.0-2.0); EOSINOPHILS # 0.2 10^3/ul (0.0-0.5); HEMATOCRIT 31.4 % (42.0-52.0); HEMOGLOBIN 9.7 g/dl (14.0-18.0); LYMPHOCYTES # 1.1 10^3/ul (0.8-2.9); LYMPHOCYTES % 15.3 % (15.0-51.0); MEAN CORPUSCULAR HEMOGLOBIN 31.7 pg (29.0-33.0); MEAN CORPUSCULAR HGB CONC 30.9 g/dl (32.0-37.0); MEAN CORPUSCULAR VOLUME 102.6 fl (82.0-101.0); MEAN PLATELET VOLUME 9.4 fl (7.4-10.4); MONOCYTE # 0.7 10^3/ul (0.3-0.9); MONOCYTES % 10.1 % (0.0-11.0); NEUTROPHIL # 5.2 10^3/ul (1.6-7.5); NEUTROPHILS % 70.3 % (39.0-77.0); PLATELET COUNT 174 10^3/UL (140-415); RED BLOOD COUNT 3.06 10^6/ul (4.70-6.10); RED CELL DISTRIBUTION WIDTH 17.3 % (11.5-14.5); WHITE BLOOD COUNT 7.3 10^3/ul (4.8-10.8)
[2016-12-08 07:01] LABS: CALCIUM 7.8 mg/dl (8.4-10.2); CREATININE 2.37 mg/dl (0.61-1.24); POTASSIUM 4.4 mmol/L (3.5-5.1)
--- NOTE | 2016-12-08 08:52 | PN ---
DATE: 12/08/2016 SUBJECTIVE: The patient is stable. The patient had hemodialysis yesterday and tolerated it well. No other acute events noted. No hemoptysis, hematemesis or hematochezia. OBJECTIVE: VITAL SIGNS: Blood pressure 88/42, respirations 19, pulse 85, temperature 97.9. HEENT: Head is normocephalic. NECK: Supple. HEART: Regular rate. LUNGS: Showed diminished breath sounds at the base. ABDOMEN: Soft, nontender to palpation. No rebound or guarding. EXTREMITIES: Negative for clubbing or cyanosis. Positive edema in the right leg. Left above-knee amputation noted. NEUROLOGIC: No change in exam. DERMATOLOGIC: No rashes. MUSCULOSKELETAL: . LABORATORY DATA: Shows white count 7.3, hemoglobin 9.7, hematocrit 31.4, platelet count is 174. So dium 137, potassium 4.4, chloride 104, BUN 42, creatinine 2.37. Chest x-ray reviewed. ASSESSMENT AND PLAN: 1. End-stage renal disease. The patient had hemodialysis yesterday and tolerated it well. Plan fo r next dialysis on Saturday. 2. Anemia of end-stage renal disease. Continue to monitor hemoglobin and hematocrit levels. Rachel nue Epogen. 3. Mineral bone disorder. Continue to monitor calcium and phosphorus levels. 4. Ventilatory dependent respiratory failure. Vent settings have been reviewed. ABG was reviewed. Continue to monitor. 5. Volume overload and congestive heart failure. Continue the current medical management. Continu e ultrafiltration dialysis. 6. Dysphagia, status post percutaneous endoscopic gastrostomy. Continue tube feedings. 7. Coronary artery disease. Continue the current medical management. 8. Diabetes. Continue Accu-Cheks and insulin sliding scale. 9. Sacral decubitus wound. Continue wound care. 10. Pulmonary hypertension. Continue sildenafil. 11. Status post sepsis. Dictated By: SARAHI RINALDI/OLESYA Conf#: [id number] DID#: [id number]
[2016-12-08] MEDS: SILDENAFIL 20 MG TAB GTB SCH ×2 (09:00→21:13)
[2016-12-08] MEDS: NEUTRA-PHOS 250 MG PACKET GTB SCH ×2 (09:38→21:10)
[2016-12-08] MEDS: CALCIUM/VITAMIN D (500/200) TAB GTB SCH (09:38)
[2016-12-08] MEDS: DULOXETINE 30 MG CAP DR GTB SCH (09:38)
[2016-12-08] MEDS: VITAMIN B COMPLEX/VIT C CAP GTB SCH (09:38)
[2016-12-08] MEDS: ASCORBIC ACID 500 MG TAB GTB SCH (09:38)
[2016-12-08] MEDS: FLUTICASONE 0.05% 16 GM NAS SPRAY NASAL SCH ×2 (09:39→21:13)
[2016-12-08] MEDS: LIDOCAINE 5% PATCH TD SCH (09:40)
[2016-12-08] MEDS: HYDROCODONE/APAP (5/325) TAB PO PRN (09:45)
[2016-12-08] MEDS: L ACIDOPHIL/B LACTIS/B LONGUM CAPSULE PEG SCH (09:49)
[2016-12-08] MEDS: COLLAGENASE 30 GM TUBE TOP SCH (09:50)
[2016-12-08] MEDS: INSULIN GLARGINE [LANtus] 3 ML PEN SC SCH (10:28)
[2016-12-08] MEDS: morphine 2 MG INJ IV PRN ×2 (10:32→21:25)
--- NOTE | 2016-12-08 10:45 | PN ---
Date/Time of Note Date/Time of Note DATE: 12/08/16 TIME: 10:45 Assessment/Plan VTE Prophylaxis VTE Prophylaxis Intervention: SCD's Lines/Catheters [facility] Sal[facility] Lock Urinary Cath still in place: No Assessment/Plan Assessment/Plan Paroxysmal atrial tachycardia Possible GI bleed Respiratory failure status post tracheostomy Diastolic congestive heart failure End-stage renal disease on hemodialysis CAD with history of PCI Diabetes Peripheral arterial disease with history of amputation Pulmonary hypertension Hypotension, improved -Blood pressure trend improved with intermittent hypotension, holding parameters on coreg and sildenafil. -fluid management via hemodialysis as per our nephrology colleagues Subjective 24 Hr Interval Summary Free Text/Dictation The patient with no cahnge Exam/Review of Systems Vital Signs Vitals Vital Signs Date Time Temp Pulse Resp B/P Pulse Ox O2 Delivery O2 Flow Rate FiO2 12/08/16 09:10 83 14 96 30 12/08/16 07:42 97.9 88/42 Intake and Output 12/07/16 12/07/16 12/08/16 15:00 23:00 07:00 Intake Total 1320 ml 500 ml Output Total 1800 ml Balance -480 ml 500 ml Results Result Diagram: 12/08/16 0620 12/08/16 0620 Results 24 hrs Laboratory Tests Test 12/07/16 13:08 12/07/16 17:38 12/07/16 20:04 12/08/16 00:43 Bedside Glucose 181 141 151 77 Test 12/08/16 05:36 12/08/16 06:20 12/08/16 09:35 Bedside Glucose 127 125 White Blood Count 7.3 # Red Blood Count 3.06 L Hemoglobin 9.7 L Hematocrit 31.4 L Mean Corpuscular Volume 102.6 H Mean Corpuscular Hemoglobin 31.7 Mean Corpuscular Hemoglobin Concent 30.9 L Red Cell Distribution Width 17.3 H Platelet Count 174 Mean Platelet Volume 9.4 Neutrophils % 70.3 Lymphocytes % 15.3 Monocytes % 10.1 Eosinophils % 3.0 Basophils % 0.5 Nucleated Red Blood Cells % 0.0 Neutrophils # 5.2 Lymphocytes # 1.1 Monocytes # 0.7 Eosinophils # 0.2 Basophils # 0.0 Nucleated Red Blood Cells # 0.0 Sodium Level 137 Potassium Level 4.4 Chloride Level 104 Carbon Dioxide Level 27 Anion Gap 10 Blood Urea Nitrogen 42 H Creatinine 2.37 H Glucose Level 117 # Calcium Level 7.8 L Medications Medications Current Medications Lidocaine (Lidoderm) 1 patch DAILY TD Last administered on 12/08/16 09:40; Admin Dose 1 PATCH; Start 11/08/16 at 15:30 Acetaminophen (Tylenol Liquid) 325 mg Q4H PRN GTB MILD PAIN LEVEL 1-3 Last administered on 11/17/16 02:37; Admin Dose 325 MG; Start 11/08/16 at 15:30 Acetaminophen (Tylenol Liquid) 650 mg Q4H PRN GTB MODERATE PAIN LEVEL 4-6 Last administered on 11/21/16 20:54; Admin Dose 650 MG; Start 11/08/16 at 15:30 Ascorbic Acid (Vitamin C) 500 mg DAILY GTB Last administered on 12/08/16 09:38 ; Admin Dose 500 MG; Start 11/09/16 at 09:00 Atorvastatin Calcium (Lipitor) 40 mg QHS GTB Last administered on 12/07/16 20: 52; Admin Dose 40 MG; Start 11/08/16 at 21:00 Carvedilol (Coreg) 3.125 mg BID GTB Last administered on 12/07/16 09:06; Admin Dose 3.125 MG; Start 11/08/16 at 21:00 Duloxetine HCl (Cymbalta) 30 mg DAILY GTB Last administered on 12/08/16 09:38 ; Admin Dose 30 MG; Start 11/09/16 at 09:00 Fluticasone Propionate (Flonase 0.05% Nasal) 1 spray BID NASAL Last administered on 12/08/16 09:39; Admin Dose 1 SPRAY; Start 11/08/16 at 21:00 Sildenafil Citrate (Revatio) 20 mg BID GTB Last administered on 12/07/16 20:53 ; Admin Dose 20 MG; Start 11/08/16 at 21:00 Vitamin B Complex/ Vitamin C (Berocca) 1 cap DAILY GTB Last administered on 09:38; Admin Dose 1 CAP; Start 11/09/16 at 09:00 Miscellaneous Information 1 ea NOTE XX ; Start 11/08/16 at 16:00 Glucose (Glutose) 15 gm Q15M PRN PO DECREASED GLUCOSE; Start 11/08/16 at 16:00 Glucose (Glutose) 22.5 gm Q15M PRN PO DECREASED GLUCOSE; Start 11/08/16 at 16: 00 Dextrose (D50w Syringe) 25 ml Q15M PRN IV DECREASED GLUCOSE Last administered on 11/30/16 19:05; Admin Dose 25 ML; Start 11/08/16 at 16:00 Dextrose (D50w Syringe) 50 ml Q15M PRN IV DECREASED GLUCOSE; Start 11/08/16 at 16:00 Glucagon (Glucagen) 1 mg Q15M PRN IM DECREASED GLUCOSE; Start 11/08/16 at 16:00 Glucose (Glutose) 15 gm Q15M PRN BUCCAL DECREASED GLUCOSE; Start 11/08/16 at 16 :00 Acetaminophen/ Hydrocodone Bitart ([place] (5/325)) 1 tab Q4H PRN PO SEVERE PAIN 7-10 Last administered on 12/08/16 09:45; Admin Dose 1 TAB; Start 11/08/16 at 21:00 Morphine Sulfate (morphine) 2 mg Q4H PRN IV PAIN LEVEL 7-10 Last administered on 12/08/16 10:32; Admin Dose 2 MG; Start 11/09/16 at 11:00 Collagenase (Santyl) 1 applic DAILY TOP Last administered on 12/08/16 09:50; Admin Dose 1 APPLIC; Start 11/09/16 at 16:00 Lorazepam (Ativan) 1 mg Q6H PRN IV AGITATION/ANXIETY Last administered on 20:53; Admin Dose 1 MG; Start 11/09/16 at 20:30 Sodium Phosphate (Neutra-Phos) 250 mg BID GTB Last administered on 12/08/16 09 :38; Admin Dose 250 MG; Start 11/10/16 at 09:00 Calcium/Vitamin D (Oyster Shell/ Vit-D (500/200)) 1 tab DAILY GTB Last administered on 12/08/16 09:38; Admin Dose 1 TAB; Start 11/12/16 at 11:00 Prochlorperazine (Compazine) 5 mg Q6H PRN GTB NAUSEA AND/OR VOMITING Last administered on 11/28/16 10:57; Admin Dose 5 MG; Start 11/17/16 at 17:30 Diagnostic Test (Pha) (Accu-Chek) 1 ea 02 XX Last administered on 11/30/16 02: 14; Admin Dose 1 EA; Start 11/24/16 at 02:00 Insulin Aspart (Novolog Insulin Pen) NOVOLOG *MILD* ALGORITHM Q4 SC Last administered on 12/07/16 17:40; Admin Dose 1 UNIT; Start 11/23/16 at 17:00 Lansoprazole (Prevacid) 30 mg BID@06,18 GTB Last administered on 12/08/16 05: 28; Admin Dose 30 MG; Start 11/29/16 at 18:00 Insulin Glargine (Lantus) 18 unit DAILY SC Last administered on 12/08/16 10:28 ; Admin Dose 18 UNIT; Start 12/07/16 at 09:00 Lactobacillus Acidophilus (Florajen3 Capsule) 1 each DAILY PEG Last administered on 12/08/16 09:49; Admin Dose 1 EACH; Start 12/08/16 at 09:00 MARIANA [place] MD Dec 08, 2016 10:45
[2016-12-08] MEDS: HYDROCODONE/APAP (7.5/325) TAB GTB PRN (13:32)
[2016-12-08] MEDS: LORAZEPAM 2 MG INJ IV PRN ×2 (14:52→22:57)
--- NOTE | 2016-12-08 16:31 | PN ---
Date/Time of Note Date/Time of Note DATE: 12/08/16 TIME: 16:28 Assessment/Plan VTE Prophylaxis VTE Prophylaxis Intervention: other Lines/Catheters IV [facility] Type [facility]from [facility]): [facility] Urinary Cath still in place: No Assessment/Plan Assessment/Plan - Esophagitis per EGD. Continue Protonix Dr. Hernandez is following in gastroenterology consultation. - Anemia of chronic disease, on Epogen, continue to monitor hemoglobin and hematocrit, transfuse as needed. - Ascites, SBP ruled out, Status post paracentesis 11/14, ascitic fluid culture negative. - Status post sepsis. Dr. Benjamin deluna is following in infection disease consultation. - End-stage renal disease, hemodialysis dependent. Continue hemodialysis per nephrology. - Chronic respiratory failure with tracheostomy. Dr. Sahu is following in pulmonology consultation. - Coronary artery disease with history of PCI. - Diastolic congestive heart failure, continue to remove fluids with hemodialysis. - Pulmonary hypertension - Peripheral vascular disease, status post left BKA. - Diabetes mellitus type 2, continue NovoLog per sliding scale. - Sacral decub present on admission. Continue current wound care. Pending half-way facility placement. Further recommendations based on clinical course. Plan of care discussed with Dr. Miramontes. Subjective 24 Hr Interval Summary Free Text/Dictation ALERT/AWAKE, follows simple commands, afebrile, no gi bleed rerported. dw staff Exam/Review of Systems Vital Signs Vitals Vital Signs Date Time Temp Pulse Resp B/P Pulse Ox O2 Delivery O2 Flow Rate FiO2 12/08/16 16:23 76 12/08/16 16:03 98.1 19 98/49 95 12/08/16 15:10 30 Intake and Output 12/07/16 12/07/16 12/08/16 15:00 23:00 07:00 Intake Total 1320 ml 500 ml Output Total 1800 ml Balance -480 ml 500 ml Exam Constitutional: alert Psych: no complaints ENMT: nl external ears & nose Respiratory: diminished breath sounds Cardiovascular: nl pulses Gastrointestinal: non-tender, soft Musculoskeletal: other (Left BKA) Extremities: edema Neurological: confused Lymph: nontender Results Result Diagram: 12/08/16 0620 12/08/16 0620 Results 24 hrs Laboratory Tests Test 12/07/16 17:38 12/07/16 20:04 12/08/16 00:43 12/08/16 05:36 Bedside Glucose 141 151 77 127 Test 12/08/16 06:20 12/08/16 09:35 12/08/16 12:53 White Blood Count 7.3 # Red Blood Count 3.06 L Hemoglobin 9.7 L Hematocrit 31.4 L Mean Corpuscular Volume 102.6 H Mean Corpuscular Hemoglobin 31.7 Mean Corpuscular Hemoglobin Concent 30.9 L Red Cell Distribution Width 17.3 H Platelet Count 174 Mean Platelet Volume 9.4 Neutrophils % 70.3 Lymphocytes % 15.3 Monocytes % 10.1 Eosinophils % 3.0 Basophils % 0.5 Nucleated Red Blood Cells % 0.0 Neutrophils # 5.2 Lymphocytes # 1.1 Monocytes # 0.7 Eosinophils # 0.2 Basophils # 0.0 Nucleated Red Blood Cells # 0.0 Sodium Level 137 Potassium Level 4.4 Chloride Level 104 Carbon Dioxide Level 27 Anion Gap 10 Blood Urea Nitrogen 42 H Creatinine 2.37 H Glucose Level 117 # Calcium Level 7.8 L Bedside Glucose 125 147 Medications Medications Current Medications Lidocaine (Lidoderm) 1 patch DAILY TD Last administered on 12/08/16 09:40; Admin Dose 1 PATCH; Start 11/08/16 at 15:30 Acetaminophen (Tylenol Liquid) 325 mg Q4H PRN GTB MILD PAIN LEVEL 1-3 Last administered on 11/17/16 02:37; Admin Dose 325 MG; Start 11/08/16 at 15:30 Acetaminophen (Tylenol Liquid) 650 mg Q4H PRN GTB MODERATE PAIN LEVEL 4-6 Last administered on 11/21/16 20:54; Admin Dose 650 MG; Start 11/08/16 at 15:30 Ascorbic Acid (Vitamin C) 500 mg DAILY GTB Last administered on 12/08/16 09:38 ; Admin Dose 500 MG; Start 11/09/16 at 09:00 Atorvastatin Calcium (Lipitor) 40 mg QHS GTB Last administered on 12/07/16 20: 52; Admin Dose 40 MG; Start 11/08/16 at 21:00 Carvedilol (Coreg) 3.125 mg BID GTB Last administered on 12/07/16 09:06; Admin Dose 3.125 MG; Start 11/08/16 at 21:00 Duloxetine HCl (Cymbalta) 30 mg DAILY GTB Last administered on 12/08/16 09:38 ; Admin Dose 30 MG; Start 11/09/16 at 09:00 Fluticasone Propionate (Flonase 0.05% Nasal) 1 spray BID NASAL Last administered on 12/08/16 09:39; Admin Dose 1 SPRAY; Start 11/08/16 at 21:00 Sildenafil Citrate (Revatio) 20 mg BID GTB Last administered on 12/07/16 20:53 ; Admin Dose 20 MG; Start 11/08/16 at 21:00 Vitamin B Complex/ Vitamin C (Berocca) 1 cap DAILY GTB Last administered on 09:38; Admin Dose 1 CAP; Start 11/09/16 at 09:00 Miscellaneous Information 1 ea NOTE XX ; Start 11/08/16 at 16:00 Glucose (Glutose) 15 gm Q15M PRN PO DECREASED GLUCOSE; Start 11/08/16 at 16:00 Glucose (Glutose) 22.5 gm Q15M PRN PO DECREASED GLUCOSE; Start 11/08/16 at 16: 00 Dextrose (D50w Syringe) 25 ml Q15M PRN IV DECREASED GLUCOSE Last administered on 11/30/16 19:05; Admin Dose 25 ML; Start 11/08/16 at 16:00 Dextrose (D50w Syringe) 50 ml Q15M PRN IV DECREASED GLUCOSE; Start 11/08/16 at 16:00 Glucagon (Glucagen) 1 mg Q15M PRN IM DECREASED GLUCOSE; Start 11/08/16 at 16:00 Glucose (Glutose) 15 gm Q15M PRN BUCCAL DECREASED GLUCOSE; Start 11/08/16 at 16 :00 Morphine Sulfate (morphine) 2 mg Q4H PRN IV PAIN LEVEL 7-10 Last administered on 12/08/16 10:32; Admin Dose 2 MG; Start 11/09/16 at 11:00 Collagenase (Santyl) 1 applic DAILY TOP Last administered on 12/08/16 09:50; Admin Dose 1 APPLIC; Start 11/09/16 at 16:00 Lorazepam (Ativan) 1 mg Q6H PRN IV AGITATION/ANXIETY Last administered on 14:52; Admin Dose 1 MG; Start 11/09/16 at 20:30 Sodium Phosphate (Neutra-Phos) 250 mg BID GTB Last administered on 12/08/16 09 :38; Admin Dose 250 MG; Start 11/10/16 at 09:00 Calcium/Vitamin D (Oyster Shell/ Vit-D (500/200)) 1 tab DAILY GTB Last administered on 12/08/16 09:38; Admin Dose 1 TAB; Start 11/12/16 at 11:00 Prochlorperazine (Compazine) 5 mg Q6H PRN GTB NAUSEA AND/OR VOMITING Last administered on 11/28/16 10:57; Admin Dose 5 MG; Start 11/17/16 at 17:30 Diagnostic Test (Pha) (Accu-Chek) 1 ea 02 XX Last administered on 11/30/16 02: 14; Admin Dose 1 EA; Start 11/24/16 at 02:00 Insulin Aspart (Novolog Insulin Pen) NOVOLOG *MILD* ALGORITHM Q4 SC Last administered on 12/08/16 13:05; Admin Dose 1 UNIT; Start 11/23/16 at 17:00 Lansoprazole (Prevacid) 30 mg BID@06,18 GTB Last administered on 12/08/16 05: 28; Admin Dose 30 MG; Start 11/29/16 at 18:00 Insulin Glargine (Lantus) 18 unit DAILY SC Last administered on 12/08/16 10:28 ; Admin Dose 18 UNIT; Start 12/07/16 at 09:00 Lactobacillus Acidophilus (Florajen3 Capsule) 1 each DAILY PEG Last administered on 12/08/16 09:49; Admin Dose 1 EACH; Start 12/08/16 at 09:00 Acetaminophen/ Hydrocodone Bitart ([place] (7.5-325)) 1 tab Q4H PRN GTB PAIN LEVEL 4-7 Last administered on 12/08/16 13:32; Admin Dose 1 TAB; Start at 13:30 GRACIE KATHLEEN Dec 08, 2016 16:31
--- NOTE | 2016-12-08 16:54 | CONS ---
Date/Time of Note Date/Time of Note DATE: 12/08/16 TIME: 16:53 Consult Date/Type/Reason Admit Date/Time Nov 08, 2016 at 10:56 Initial Consult Date 11/09/16 Type of Consultation: pulmonary Ordering Provider: GRACIE KATHLEEN Subjective No events. Alert on MV. Objective Vital Signs Date Time Temp Pulse Resp B/P Pulse Ox O2 Delivery O2 Flow Rate FiO2 12/08/16 16:23 76 12/08/16 16:03 98.1 19 98/49 95 12/08/16 15:10 30 Intake and Output 12/07/16 12/07/16 12/08/16 15:00 23:00 07:00 Intake Total 1320 ml 500 ml Output Total 1800 ml Balance -480 ml 500 ml Exam HEENT: Pupils equal, round, and reactive to light. Tracheostomy site clean and intact. CARDIAC: S1, S2, 1/6 systolic murmur CHEST: Diminished air entry bilaterally. ABDOMEN: Mildly distended. No bowel sounds. EXTREMITIES: No cyanosis, clubbing edema +1 Results/Medications Result Diagram: 12/08/1620 12/08/16 0620 Results 24 hrs Laboratory Tests Test 12/07/16 17:38 12/07/16 20:04 12/08/16 00:43 12/08/16 05:36 Bedside Glucose 141 151 77 127 Test 12/08/16 06:20 12/08/16 09:35 12/08/16 12:53 White Blood Count 7.3 # Red Blood Count 3.06 L Hemoglobin 9.7 L Hematocrit 31.4 L Mean Corpuscular Volume 102.6 H Mean Corpuscular Hemoglobin 31.7 Mean Corpuscular Hemoglobin Concent 30.9 L Red Cell Distribution Width 17.3 H Platelet Count 174 Mean Platelet Volume 9.4 Neutrophils % 70.3 Lymphocytes % 15.3 Monocytes % 10.1 Eosinophils % 3.0 Basophils % 0.5 Nucleated Red Blood Cells % 0.0 Neutrophils # 5.2 Lymphocytes # 1.1 Monocytes # 0.7 Eosinophils # 0.2 Basophils # 0.0 Nucleated Red Blood Cells # 0.0 Sodium Level 137 Potassium Level 4.4 Chloride Level 104 Carbon Dioxide Level 27 Anion Gap 10 Blood Urea Nitrogen 42 H Creatinine 2.37 H Glucose Level 117 # Calcium Level 7.8 L Bedside Glucose 125 147 Medications Current Medications Lidocaine (Lidoderm) 1 patch DAILY TD Last administered on 12/08/16 09:40; Admin Dose 1 PATCH; Start 11/08/16 at 15:30 Acetaminophen (Tylenol Liquid) 325 mg Q4H PRN GTB MILD PAIN LEVEL 1-3 Last administered on 11/17/16 02:37; Admin Dose 325 MG; Start 11/08/16 at 15:30 Acetaminophen (Tylenol Liquid) 650 mg Q4H PRN GTB MODERATE PAIN LEVEL 4-6 Last administered on 11/21/16 20:54; Admin Dose 650 MG; Start 11/08/16 at 15:30 Ascorbic Acid (Vitamin C) 500 mg DAILY GTB Last administered on 12/08/16 09:38 ; Admin Dose 500 MG; Start 11/09/16 at 09:00 Atorvastatin Calcium (Lipitor) 40 mg QHS GTB Last administered on 12/07/16 20: 52; Admin Dose 40 MG; Start 11/08/16 at 21:00 Carvedilol (Coreg) 3.125 mg BID GTB Last administered on 12/07/16 09:06; Admin Dose 3.125 MG; Start 11/08/16 at 21:00 Duloxetine HCl (Cymbalta) 30 mg DAILY GTB Last administered on 12/08/16 09:38 ; Admin Dose 30 MG; Start 11/09/16 at 09:00 Fluticasone Propionate (Flonase 0.05% Nasal) 1 spray BID NASAL Last administered on 12/08/16 09:39; Admin Dose 1 SPRAY; Start 11/08/16 at 21:00 Sildenafil Citrate (Revatio) 20 mg BID GTB Last administered on 12/07/16 20:53 ; Admin Dose 20 MG; Start 11/08/16 at 21:00 Vitamin B Complex/ Vitamin C (Berocca) 1 cap DAILY GTB Last administered on 09:38; Admin Dose 1 CAP; Start 11/09/16 at 09:00 Miscellaneous Information 1 ea NOTE XX ; Start 11/08/16 at 16:00 Glucose (Glutose) 15 gm Q15M PRN PO DECREASED GLUCOSE; Start 11/08/16 at 16:00 Glucose (Glutose) 22.5 gm Q15M PRN PO DECREASED GLUCOSE; Start 11/08/16 at 16: 00 Dextrose (D50w Syringe) 25 ml Q15M PRN IV DECREASED GLUCOSE Last administered on 11/30/16 19:05; Admin Dose 25 ML; Start 11/08/16 at 16:00 Dextrose (D50w Syringe) 50 ml Q15M PRN IV DECREASED GLUCOSE; Start 11/08/16 at 16:00 Glucagon (Glucagen) 1 mg Q15M PRN IM DECREASED GLUCOSE; Start 11/08/16 at 16:00 Glucose (Glutose) 15 gm Q15M PRN BUCCAL DECREASED GLUCOSE; Start 11/08/16 at 16 :00 Morphine Sulfate (morphine) 2 mg Q4H PRN IV PAIN LEVEL 7-10 Last administered on 12/08/16 10:32; Admin Dose 2 MG; Start 11/09/16 at 11:00 Collagenase (Santyl) 1 applic DAILY TOP Last administered on 12/08/16 09:50; Admin Dose 1 APPLIC; Start 11/09/16 at 16:00 Lorazepam (Ativan) 1 mg Q6H PRN IV AGITATION/ANXIETY Last administered on 14:52; Admin Dose 1 MG; Start 11/09/16 at 20:30 Sodium Phosphate (Neutra-Phos) 250 mg BID GTB Last administered on 12/08/16 09 :38; Admin Dose 250 MG; Start 11/10/16 at 09:00 Calcium/Vitamin D (Oyster Shell/ Vit-D (500/200)) 1 tab DAILY GTB Last administered on 12/08/16 09:38; Admin Dose 1 TAB; Start 11/12/16 at 11:00 Prochlorperazine (Compazine) 5 mg Q6H PRN GTB NAUSEA AND/OR VOMITING Last administered on 11/28/16 10:57; Admin Dose 5 MG; Start 11/17/16 at 17:30 Diagnostic Test (Pha) (Accu-Chek) 1 ea 02 XX Last administered on 11/30/16 02: 14; Admin Dose 1 EA; Start 11/24/16 at 02:00 Insulin Aspart (Novolog Insulin Pen) NOVOLOG *MILD* ALGORITHM Q4 SC Last administered on 12/08/16 13:05; Admin Dose 1 UNIT; Start 11/23/16 at 17:00 Lansoprazole (Prevacid) 30 mg BID@,18 GTB Last administered on 12/08/16 05: 28; Admin Dose 30 MG; Start 11/29/16 at 18:00 Insulin Glargine (Lantus) 18 unit DAILY SC Last administered on 12/08/16 10:28 ; Admin Dose 18 UNIT; Start 12/07/16 at 09:00 Lactobacillus Acidophilus (Florajen3 Capsule) 1 each DAILY PEG Last administered on 12/08/16 09:49; Admin Dose 1 EACH; Start 12/08/16 at 09:00 Acetaminophen/ Hydrocodone Bitart ([place] (7.5-325)) 1 tab Q4H PRN GTB PAIN LEVEL 4-7 Last administered on 12/08/16 13:32; Admin Dose 1 TAB; Start at 13:30 Assessment/Plan Additional Assessment/Plan IMP: 1. Vent dependent respiratory failure 2. End-stage renal failure on hemodialysis 3. Recent urinary tract infection with sepsis 4. Anemia of chronic disease and possibly secondary to renal dysfunction 5. Dysphagia with G-tube RECS: 1. Continue mechanical ventilation 2. Tube feeding as tolerated 3. Hemodialysis per nephrology 4. Antibiotics per infectious diseases 5. DVT and GI prophylaxis ASHLEY MOORE MD Dec 08, 2016 16:54
[2016-12-08] MEDS: ATORVASTATIN 40 MG TAB GTB SCH (21:12)
[2016-12-09] VITALS (25 sets, daily range): BP systolic 81–148; BP diastolic 47–67; PULSE 72–90; RESP 10–29
[2016-12-09] MEDS: INSULIN ASPART [NOVOLOG] 3 ML PEN SC SCH ×2 (00:59→05:00)
[2016-12-09] MEDS: ACCU-CHEK XX SCH (02:03)
[2016-12-09] MEDS: LANSOPRAZOLE 30 MG CAP GTB SCH ×2 (05:53→17:48)
[2016-12-09 06:40] LABS: ADD SCAN DIFF NO
[2016-12-09 06:47] LABS: CALCIUM 7.6 mg/dl (8.4-10.2); CREATININE 2.81 mg/dl (0.61-1.24); POTASSIUM 4.4 mmol/L (3.5-5.1)
[2016-12-09 06:50] LABS: BASOPHILS % 0.5 % (0.0-2.0); EOSINOPHILS # 0.2 10^3/ul (0.0-0.5); EOSINOPHILS % 2.3 % (0.0-7.0); HEMATOCRIT 29.1 % (42.0-52.0); HEMOGLOBIN 8.9 g/dl (14.0-18.0); LYMPHOCYTES # 1.2 10^3/ul (0.8-2.9); LYMPHOCYTES % 13.6 % (15.0-51.0); MEAN CORPUSCULAR HEMOGLOBIN 31.1 pg (29.0-33.0); MEAN CORPUSCULAR HGB CONC 30.6 g/dl (32.0-37.0); MEAN CORPUSCULAR VOLUME 101.7 fl (82.0-101.0); MEAN PLATELET VOLUME 9.4 fl (7.4-10.4); MONOCYTES % 11.4 % (0.0-11.0); NEUTROPHILS % 71.6 % (39.0-77.0); PLATELET COUNT 178 10^3/UL (140-415); RED BLOOD COUNT 2.86 10^6/ul (4.70-6.10); RED CELL DISTRIBUTION WIDTH 17.4 % (11.5-14.5); WHITE BLOOD COUNT 8.4 10^3/ul (4.8-10.8)
[2016-12-09] MEDS: SILDENAFIL 20 MG TAB GTB SCH (09:00)
[2016-12-09] MEDS: COLLAGENASE 30 GM TUBE TOP SCH (09:00)
[2016-12-09] MEDS: LIDOCAINE 5% PATCH TD SCH (09:17)
[2016-12-09] MEDS: CALCIUM/VITAMIN D (500/200) TAB GTB SCH (09:17)
[2016-12-09] MEDS: VITAMIN B COMPLEX/VIT C CAP GTB SCH (09:17)
[2016-12-09] MEDS: ASCORBIC ACID 500 MG TAB GTB SCH (09:17)
[2016-12-09] MEDS: FLUTICASONE 0.05% 16 GM NAS SPRAY NASAL SCH ×2 (09:18→21:08)
[2016-12-09] MEDS: NEUTRA-PHOS 250 MG PACKET GTB SCH ×2 (09:18→21:08)
[2016-12-09] MEDS: L ACIDOPHIL/B LACTIS/B LONGUM CAPSULE PEG SCH (09:18)
[2016-12-09] MEDS: DULOXETINE 30 MG CAP DR GTB SCH (09:21)
--- NOTE | 2016-12-09 09:49 | PN ---
DATE: 12/09/2016 SUBJECTIVE: The patient remained stable, no acute events overnight. OBJECTIVE: VITAL SIGNS: Blood pressure 91/48, respirations 10, pulse 84, temperature 98.6. HEENT: Head is normocephalic. NECK: Supple. HEART: Regular rate. LUNGS: Show diminished breath sounds at base. ABDOMEN: Soft, nontender to palpation without rebound or guarding. EXTREMITIES: Negative for clubbing, cyanosis, no edema. DERMATOLOGIC: No rashes. MUSCULOSKELETAL: No joint effusions. NEUROLOGIC: No change in exam. MEDICATIONS: Reviewed. LABORATORY DATA: Shows white count 8.3, hemoglobin 8.9, hematocrit 29.1, platelet count 178. Sodiu m 134, potassium 4.4, BUN 49, creatinine 2.81. ASSESSMENT AND PLAN: 1. End-stage disease. Plan for dialysis tomorrow. 2. Anemia of end-stage renal disease. Monitor hemoglobin and hematocrit levels. Continue Epogen. 3. Mineral bone disorder. Continue to monitor calcium and phosphorus levels. 4. dependent respiratory failure. Vent settings reviewed. Continue to monitor. Follow up w ith Pulmonary. 5. Volume overload, congestive heart failure. Continue current medical management. 6. Dysphagia, status post PEG tube. Continue tube feeding. 7. Coronary artery disease. Continue current treatment plan. 8. Sacral decubitus wound. Continue wound care. 9. Pulmonary hypertension. Continue sildenafil. 10. Status post sepsis. Dictated By: SARAHI RINALDI/NTS Conf#: [id number] DID#: [id number]
[2016-12-09] MEDS: PROCHLORPERAZINE 5 MG TAB GTB PRN ×2 (09:57→09:58)
--- NOTE | 2016-12-09 15:30 | CONS ---
Date/Time of Note Date/Time of Note DATE: 12/09/16 TIME: 15:29 Assessment/Plan Assessment/Plan Additional Assessment/Plan Paroxysmal atrial tachycardia Possible GI bleed Respiratory failure status post tracheostomy Diastolic congestive heart failure End-stage renal disease on hemodialysis CAD with history of PCI Diabetes Peripheral arterial disease with history of amputation Pulmonary hypertension Hypotension, improved -Blood pressure trend improved with intermittent hypotension, holding parameters on coreg and sildenafil. -fluid management via hemodialysis as per our nephrology colleagues Consultation Date/Type/Reason Admit Date/Time Nov 08, 2016 at 10:56 Initial Consult Date 11/09/16 Type of Consultation: cv Referring Provider: GRACIE KATHLEEN 24 HR Interval Summary Free Text/Dictation Denies shortness of breath, chest pain Exam/Review of Systems Vital Signs Vitals Vital Signs Date Time Temp Pulse Resp B/P Pulse Ox O2 Delivery O2 Flow Rate FiO2 12/09/16 13:30 65 22 96 30 12/09/16 11:45 97.5 148/67 Intake and Output 12/08/16 12/08/16 12/09/16 15:00 23:00 07:00 Intake Total 1040 ml 530 ml Balance 1040 ml 530 ml Exam Sleeping but arousable, following commands, no apparent distress Head: normocephalic Neck: other (Tracheostomy) Respiratory: other (Coarse breath sounds bilaterally, no wheezing) Cardiovascular: other (S1-S2 heard), regular rate and rhythm Gastrointestinal: bowel sounds, distended, non-tender, soft Extremities: edema Results Result Diagram: 12/09/16 0510 12/09/16 0510 Results 24 hrs Laboratory Tests Test 12/08/16 18:01 12/08/16 21:11 12/09/16 00:58 12/09/16 02:03 Bedside Glucose 90 79 107 119 Test 12/09/16 05:06 12/09/16 05:10 12/09/16 09:27 Bedside Glucose 142 161 White Blood Count 8.4 Red Blood Count 2.86 L Hemoglobin 8.9 L Hematocrit 29.1 L Mean Corpuscular Volume 101.7 H Mean Corpuscular Hemoglobin 31.1 Mean Corpuscular Hemoglobin Concent 30.6 L Red Cell Distribution Width 17.4 H Platelet Count 178 Mean Platelet Volume 9.4 Neutrophils % 71.6 Lymphocytes % 13.6 L Monocytes % 11.4 H Eosinophils % 2.3 Basophils % 0.5 Nucleated Red Blood Cells % 0.0 Neutrophils # 6.0 Lymphocytes # 1.2 Monocytes # 1.0 H Eosinophils # 0.2 Basophils # 0.0 Nucleated Red Blood Cells # 0.0 Sodium Level 134 L Potassium Level 4.4 Chloride Level 101 Carbon Dioxide Level 28 Anion Gap 9 Blood Urea Nitrogen 49 H Creatinine 2.81 H Glucose Level 128 Calcium Level 7.6 L Medications Medications Current Medications Lidocaine (Lidoderm) 1 patch DAILY TD Last administered on 12/09/16 09:17; Admin Dose 1 PATCH; Start 11/08/16 at 15:30 Acetaminophen (Tylenol Liquid) 325 mg Q4H PRN GTB MILD PAIN LEVEL 1-3 Last administered on 11/17/16 02:37; Admin Dose 325 MG; Start 11/08/16 at 15:30 Acetaminophen (Tylenol Liquid) 650 mg Q4H PRN GTB MODERATE PAIN LEVEL 4-6 Last administered on 11/21/16 20:54; Admin Dose 650 MG; Start 11/08/16 at 15:30 Ascorbic Acid (Vitamin C) 500 mg DAILY GTB Last administered on 12/09/16 09:17 ; Admin Dose 500 MG; Start 11/09/16 at 09:00 Atorvastatin Calcium (Lipitor) 40 mg QHS GTB Last administered on 12/08/16 21: 12; Admin Dose 40 MG; Start 11/08/16 at 21:00 Carvedilol (Coreg) 3.125 mg BID GTB Last administered on 12/08/16 21:12; Admin Dose 3.125 MG; Start 11/08/16 at 21:00 Duloxetine HCl (Cymbalta) 30 mg DAILY GTB Last administered on 12/09/16 09:21 ; Admin Dose 30 MG; Start 11/09/16 at 09:00 Fluticasone Propionate (Flonase 0.05% Nasal) 1 spray BID NASAL Last administered on 12/09/16 09:18; Admin Dose 1 SPRAY; Start 11/08/16 at 21:00 Vitamin B Complex/ Vitamin C (Berocca) 1 cap DAILY GTB Last administered on 09:17; Admin Dose 1 CAP; Start 11/09/16 at 09:00 Miscellaneous Information 1 ea NOTE XX ; Start 11/08/16 at 16:00 Glucose (Glutose) 15 gm Q15M PRN PO DECREASED GLUCOSE; Start 11/08/16 at 16:00 Glucose (Glutose) 22.5 gm Q15M PRN PO DECREASED GLUCOSE; Start 11/08/16 at 16: 00 Dextrose (D50w Syringe) 25 ml Q15M PRN IV DECREASED GLUCOSE Last administered on 11/30/16 19:05; Admin Dose 25 ML; Start 11/08/16 at 16:00 Dextrose (D50w Syringe) 50 ml Q15M PRN IV DECREASED GLUCOSE; Start 11/08/16 at 16:00 Glucagon (Glucagen) 1 mg Q15M PRN IM DECREASED GLUCOSE; Start 11/08/16 at 16:00 Glucose (Glutose) 15 gm Q15M PRN BUCCAL DECREASED GLUCOSE; Start 11/08/16 at 16 :00 Morphine Sulfate (morphine) 2 mg Q4H PRN IV PAIN LEVEL 7-10 Last administered on 12/08/16 21:25; Admin Dose 2 MG; Start 11/09/16 at 11:00 Collagenase (Santyl) 1 applic DAILY TOP Last administered on 12/08/16 09:50; Admin Dose 1 APPLIC; Start 11/09/16 at 16:00 Lorazepam (Ativan) 1 mg Q6H PRN IV AGITATION/ANXIETY Last administered on 22:57; Admin Dose 1 MG; Start 11/09/16 at 20:30 Sodium Phosphate (Neutra-Phos) 250 mg BID GTB Last administered on 12/09/16 09 :18; Admin Dose 250 MG; Start 11/10/16 at 09:00 Calcium/Vitamin D (Oyster Shell/ Vit-D (500/200)) 1 tab DAILY GTB Last administered on 12/09/16 09:17; Admin Dose 1 TAB; Start 11/12/16 at 11:00 Prochlorperazine (Compazine) 5 mg Q6H PRN GTB NAUSEA AND/OR VOMITING Last administered on 12/09/16 09:58; Admin Dose 5 MG; Start 11/17/16 at 17:30 Lansoprazole (Prevacid) 30 mg BID@,18 GTB Last administered on 12/09/16 05: 53; Admin Dose 30 MG; Start 11/29/16 at 18:00 Lactobacillus Acidophilus (Florajen3 Capsule) 1 each DAILY PEG Last administered on 12/09/16 09:18; Admin Dose 1 EACH; Start 12/08/16 at 09:00 Acetaminophen/ Hydrocodone Bitart ([place] (7.5-325)) 1 tab Q4H PRN GTB PAIN LEVEL 4-7 Last administered on 12/08/16 13:32; Admin Dose 1 TAB; Start at 13:30 Solo Leon DO Dec 09, 2016 15:30
--- NOTE | 2016-12-09 16:04 | PN ---
Date/Time of Note Date/Time of Note DATE: 12/09/16 TIME: 16:03 Assessment/Plan VTE Prophylaxis VTE Prophylaxis Intervention: other Lines/Catheters IV [facility]ter Type (from [facility]): [facility] Urinary Cath still in place: No Assessment/Plan Assessment/Plan - Esophagitis per EGD. Continue Protonix Dr. Hernandez is following in gastroenterology consultation. - Anemia of chronic disease, on Epogen, continue to monitor hemoglobin and hematocrit, transfuse as needed. - Ascites, SBP ruled out, Status post paracentesis 11/14, ascitic fluid culture negative. - Status post sepsis. Dr. Benjamin deluna is following in infection disease consultation. - End-stage renal disease, hemodialysis dependent. Continue hemodialysis per nephrology. - Chronic respiratory failure with tracheostomy. Dr. Sahu is following in pulmonology consultation. - Coronary artery disease with history of PCI. - Diastolic congestive heart failure, continue to remove fluids with hemodialysis. - Pulmonary hypertension - Peripheral vascular disease, status post left BKA. - Diabetes mellitus type 2, continue NovoLog per sliding scale. - Sacral decub present on admission. Continue current wound care. Pending prison facility placement. Further recommendations based on clinical course. Plan of care discussed with Dr. Miramontes. Subjective 24 Hr Interval Summary Eyes: no complaints ENT: no complaints Respiratory: shortness of breath Gastrointestinal: no complaints Genitourinary: no complaints Musculoskeletal: no complaints Skin: no complaints Neurologic: no complaints Endocrine: no complaints Lymphatic: no complaints Exam/Review of Systems Vital Signs Vitals Vital Signs Date Time Temp Pulse Resp B/P Pulse Ox O2 Delivery O2 Flow Rate FiO2 12/09/16 15:58 98.3 80 11 108/57 95 12/09/16 13:30 30 Intake and Output 12/08/16 12/08/16 12/09/16 15:00 23:00 07:00 Intake Total 1040 ml 530 ml Balance 1040 ml 530 ml Exam Constitutional: alert Eyes: nl sclera ENMT: nl external ears & nose Respiratory: clear to auscultation Cardiovascular: nl pulses Gastrointestinal: soft Musculoskeletal: other Extremities: normal pulses Neurological: confused Skin: nl turgor Lymph: nl lymph nodes Results Result Diagram: 12/09/16 0510 12/09/16 0510 Results 24 hrs Laboratory Tests Test 12/08/16 18:01 12/08/16 21:11 12/09/16 00:58 12/09/16 02:03 Bedside Glucose 90 79 107 119 Test 12/09/16 05:06 12/09/16 05:10 12/09/16 09:27 Bedside Glucose 142 161 White Blood Count 8.4 Red Blood Count 2.86 L Hemoglobin 8.9 L Hematocrit 29.1 L Mean Corpuscular Volume 101.7 H Mean Corpuscular Hemoglobin 31.1 Mean Corpuscular Hemoglobin Concent 30.6 L Red Cell Distribution Width 17.4 H Platelet Count 178 Mean Platelet Volume 9.4 Neutrophils % 71.6 Lymphocytes % 13.6 L Monocytes % 11.4 H Eosinophils % 2.3 Basophils % 0.5 Nucleated Red Blood Cells % 0.0 Neutrophils # 6.0 Lymphocytes # 1.2 Monocytes # 1.0 H Eosinophils # 0.2 Basophils # 0.0 Nucleated Red Blood Cells # 0.0 Sodium Level 134 L Potassium Level 4.4 Chloride Level 101 Carbon Dioxide Level 28 Anion Gap 9 Blood Urea Nitrogen 49 H Creatinine 2.81 H Glucose Level 128 Calcium Level 7.6 L Medications Medications Current Medications Lidocaine (Lidoderm) 1 patch DAILY TD Last administered on 12/09/16 09:17; Admin Dose 1 PATCH; Start 11/08/16 at 15:30 Acetaminophen (Tylenol Liquid) 325 mg Q4H PRN GTB MILD PAIN LEVEL 1-3 Last administered on 11/17/16 02:37; Admin Dose 325 MG; Start 11/08/16 at 15:30 Acetaminophen (Tylenol Liquid) 650 mg Q4H PRN GTB MODERATE PAIN LEVEL 4-6 Last administered on 11/21/16 20:54; Admin Dose 650 MG; Start 11/08/16 at 15:30 Ascorbic Acid (Vitamin C) 500 mg DAILY GTB Last administered on 12/09/16 09:17 ; Admin Dose 500 MG; Start 11/09/16 at 09:00 Atorvastatin Calcium (Lipitor) 40 mg QHS GTB Last administered on 12/08/16 21: 12; Admin Dose 40 MG; Start 11/08/16 at 21:00 Carvedilol (Coreg) 3.125 mg BID GTB Last administered on 12/08/16 21:12; Admin Dose 3.125 MG; Start 11/08/16 at 21:00 Duloxetine HCl (Cymbalta) 30 mg DAILY GTB Last administered on 12/09/16 09:21 ; Admin Dose 30 MG; Start 11/09/16 at 09:00 Fluticasone Propionate (Flonase 0.05% Nasal) 1 spray BID NASAL Last administered on 12/09/16 09:18; Admin Dose 1 SPRAY; Start 11/08/16 at 21:00 Vitamin B Complex/ Vitamin C (Berocca) 1 cap DAILY GTB Last administered on 09:17; Admin Dose 1 CAP; Start 11/09/16 at 09:00 Miscellaneous Information 1 ea NOTE XX ; Start 11/08/16 at 16:00 Glucose (Glutose) 15 gm Q15M PRN PO DECREASED GLUCOSE; Start 11/08/16 at 16:00 Glucose (Glutose) 22.5 gm Q15M PRN PO DECREASED GLUCOSE; Start 11/08/16 at 16: 00 Dextrose (D50w Syringe) 25 ml Q15M PRN IV DECREASED GLUCOSE Last administered on 11/30/16 19:05; Admin Dose 25 ML; Start 11/08/16 at 16:00 Dextrose (D50w Syringe) 50 ml Q15M PRN IV DECREASED GLUCOSE; Start 11/08/16 at 16:00 Glucagon (Glucagen) 1 mg Q15M PRN IM DECREASED GLUCOSE; Start 11/08/16 at 16:00 Glucose (Glutose) 15 gm Q15M PRN BUCCAL DECREASED GLUCOSE; Start 11/08/16 at 16 :00 Morphine Sulfate (morphine) 2 mg Q4H PRN IV PAIN LEVEL 7-10 Last administered on 12/08/16 21:25; Admin Dose 2 MG; Start 11/09/16 at 11:00 Collagenase (Santyl) 1 applic DAILY TOP Last administered on 12/08/16 09:50; Admin Dose 1 APPLIC; Start 11/09/16 at 16:00 Lorazepam (Ativan) 1 mg Q6H PRN IV AGITATION/ANXIETY Last administered on 22:57; Admin Dose 1 MG; Start 11/09/16 at 20:30 Sodium Phosphate (Neutra-Phos) 250 mg BID GTB Last administered on 12/09/16 09 :18; Admin Dose 250 MG; Start 11/10/16 at 09:00 Calcium/Vitamin D (Oyster Shell/ Vit-D (500/200)) 1 tab DAILY GTB Last administered on 12/09/16 09:17; Admin Dose 1 TAB; Start 11/12/16 at 11:00 Prochlorperazine (Compazine) 5 mg Q6H PRN GTB NAUSEA AND/OR VOMITING Last administered on 12/09/16 09:58; Admin Dose 5 MG; Start 11/17/16 at 17:30 Lansoprazole (Prevacid) 30 mg BID@18 GTB Last administered on 12/09/16 05: 53; Admin Dose 30 MG; Start 11/29/16 at 18:00 Lactobacillus Acidophilus (Florajen3 Capsule) 1 each DAILY PEG Last administered on 12/09/16 09:18; Admin Dose 1 EACH; Start 12/08/16 at 09:00 Acetaminophen/ Hydrocodone Bitart ([place] (7.5-325)) 1 tab Q4H PRN GTB PAIN LEVEL 4-7 Last administered on 12/08/16 13:32; Admin Dose 1 TAB; Start at 13:30 GRACIE KATHLEEN Dec 09, 2016 16:04
[2016-12-09] MEDS: HYDROCODONE/APAP (7.5/325) TAB GTB PRN (16:31)
--- NOTE | 2016-12-09 16:52 | CONS ---
Date/Time of Note Date/Time of Note DATE: 12/09/16 TIME: 16:51 Consult Date/Type/Reason Admit Date/Time Nov 08, 2016 at 10:56 Initial Consult Date 11/09/16 Type of Consultation: Pulm Ordering Provider: GRACIE KATHLEEN Subjective Alert on MV. No events. Objective Vital Signs Date Time Temp Pulse Resp B/P Pulse Ox O2 Delivery O2 Flow Rate FiO2 12/09/16 16:31 87 12/09/16 15:58 98.3 11 108/57 95 12/09/16 15:10 30 Intake and Output 12/08/16 12/08/16 12/09/16 15:00 23:00 07:00 Intake Total 1040 ml 530 ml Balance 1040 ml 530 ml Exam HEENT: Pupils equal, round, and reactive to light. Tracheostomy site clean and intact. CARDIAC: S1, S2, 1/6 systolic murmur CHEST: Coarse BS ABDOMEN: Mildly distended. No bowel sounds. EXTREMITIES: No cyanosis, clubbing edema +1 Results/Medications Result Diagram: 12/09/16 0510 12/09/16 0510 Results 24 hrs Laboratory Tests Test 12/08/16 18:01 12/08/16 21:11 12/09/16 00:58 12/09/16 02:03 Bedside Glucose 90 79 107 119 Test 12/09/16 05:06 12/09/16 05:10 12/09/16 09:27 Bedside Glucose 142 161 White Blood Count 8.4 Red Blood Count 2.86 L Hemoglobin 8.9 L Hematocrit 29.1 L Mean Corpuscular Volume 101.7 H Mean Corpuscular Hemoglobin 31.1 Mean Corpuscular Hemoglobin Concent 30.6 L Red Cell Distribution Width 17.4 H Platelet Count 178 Mean Platelet Volume 9.4 Neutrophils % 71.6 Lymphocytes % 13.6 L Monocytes % 11.4 H Eosinophils % 2.3 Basophils % 0.5 Nucleated Red Blood Cells % 0.0 Neutrophils # 6.0 Lymphocytes # 1.2 Monocytes # 1.0 H Eosinophils # 0.2 Basophils # 0.0 Nucleated Red Blood Cells # 0.0 Sodium Level 134 L Potassium Level 4.4 Chloride Level 101 Carbon Dioxide Level 28 Anion Gap 9 Blood Urea Nitrogen 49 H Creatinine 2.81 H Glucose Level 128 Calcium Level 7.6 L Medications Current Medications Lidocaine (Lidoderm) 1 patch DAILY TD Last administered on 12/09/16 09:17; Admin Dose 1 PATCH; Start 11/08/16 at 15:30 Acetaminophen (Tylenol Liquid) 325 mg Q4H PRN GTB MILD PAIN LEVEL 1-3 Last administered on 11/17/16 02:37; Admin Dose 325 MG; Start 11/08/16 at 15:30 Acetaminophen (Tylenol Liquid) 650 mg Q4H PRN GTB MODERATE PAIN LEVEL 4-6 Last administered on 11/21/16 20:54; Admin Dose 650 MG; Start 11/08/16 at 15:30 Ascorbic Acid (Vitamin C) 500 mg DAILY GTB Last administered on 12/09/16 09:17 ; Admin Dose 500 MG; Start 11/09/16 at 09:00 Atorvastatin Calcium (Lipitor) 40 mg QHS GTB Last administered on 12/08/16 21: 12; Admin Dose 40 MG; Start 11/08/16 at 21:00 Carvedilol (Coreg) 3.125 mg BID GTB Last administered on 12/08/16 21:12; Admin Dose 3.125 MG; Start 11/08/16 at 21:00 Duloxetine HCl (Cymbalta) 30 mg DAILY GTB Last administered on 12/09/16 09:21 ; Admin Dose 30 MG; Start 11/09/16 at 09:00 Fluticasone Propionate (Flonase 0.05% Nasal) 1 spray BID NASAL Last administered on 12/09/16 09:18; Admin Dose 1 SPRAY; Start 11/08/16 at 21:00 Vitamin B Complex/ Vitamin C (Berocca) 1 cap DAILY GTB Last administered on 09:17; Admin Dose 1 CAP; Start 11/09/16 at 09:00 Miscellaneous Information 1 ea NOTE XX ; Start 11/08/16 at 16:00 Glucose (Glutose) 15 gm Q15M PRN PO DECREASED GLUCOSE; Start 11/08/16 at 16:00 Glucose (Glutose) 22.5 gm Q15M PRN PO DECREASED GLUCOSE; Start 11/08/16 at 16: 00 Dextrose (D50w Syringe) 25 ml Q15M PRN IV DECREASED GLUCOSE Last administered on 11/30/16 19:05; Admin Dose 25 ML; Start 11/08/16 at 16:00 Dextrose (D50w Syringe) 50 ml Q15M PRN IV DECREASED GLUCOSE; Start 11/08/16 at 16:00 Glucagon (Glucagen) 1 mg Q15M PRN IM DECREASED GLUCOSE; Start 11/08/16 at 16:00 Glucose (Glutose) 15 gm Q15M PRN BUCCAL DECREASED GLUCOSE; Start 11/08/16 at 16 :00 Morphine Sulfate (morphine) 2 mg Q4H PRN IV PAIN LEVEL 7-10 Last administered on 12/08/16 21:25; Admin Dose 2 MG; Start 11/09/16 at 11:00 Collagenase (Santyl) 1 applic DAILY TOP Last administered on 12/08/16 09:50; Admin Dose 1 APPLIC; Start 11/09/16 at 16:00 Lorazepam (Ativan) 1 mg Q6H PRN IV AGITATION/ANXIETY Last administered on 22:57; Admin Dose 1 MG; Start 11/09/16 at 20:30 Sodium Phosphate (Neutra-Phos) 250 mg BID GTB Last administered on 12/09/16 09 :18; Admin Dose 250 MG; Start 11/10/16 at 09:00 Calcium/Vitamin D (Oyster Shell/ Vit-D (500/200)) 1 tab DAILY GTB Last administered on 12/09/16 09:17; Admin Dose 1 TAB; Start 11/12/16 at 11:00 Prochlorperazine (Compazine) 5 mg Q6H PRN GTB NAUSEA AND/OR VOMITING Last administered on 12/09/16 09:58; Admin Dose 5 MG; Start 11/17/16 at 17:30 Lansoprazole (Prevacid) 30 mg BID@,18 GTB Last administered on 12/09/16 05: 53; Admin Dose 30 MG; Start 11/29/16 at 18:00 Lactobacillus Acidophilus (Florajen3 Capsule) 1 each DAILY PEG Last administered on 12/09/16 09:18; Admin Dose 1 EACH; Start 12/08/16 at 09:00 Acetaminophen/ Hydrocodone Bitart ([place] (7.5-325)) 1 tab Q4H PRN GTB PAIN LEVEL 4-7 Last administered on 12/09/16 16:31; Admin Dose 1 TAB; Start 4/22/ 17 at 13:30 Assessment/Plan Additional Assessment/Plan IMP: 1. Vent dependent respiratory failure 2. End-stage renal failure on hemodialysis 3. Recent urinary tract infection with sepsis 4. Anemia of chronic disease and possibly secondary to renal dysfunction 5. Dysphagia with G-tube RECS: 1. Continue mechanical ventilation/BD's/CPT 2. TF/Free H2O 3. Hemodialysis per nephrology 4. Antibiotics per infectious diseases 5. DVT and GI prophylaxis ASHLEY MOORE MD Dec 09, 2016 16:52
[2016-12-09] MEDS: ACETAMINOPHEN 650MG/20.3ML CUP GTB PRN (18:00)
[2016-12-09] MEDS: ATORVASTATIN 40 MG TAB GTB SCH (21:08)
[2016-12-10] VITALS (30 sets, daily range): BP systolic 84–136; BP diastolic 44–81; PULSE 65–112; RESP 12–22
[2016-12-10] MEDS: LORAZEPAM 2 MG INJ IV PRN ×3 (00:32→17:22)
[2016-12-10] MEDS: LANSOPRAZOLE 30 MG CAP GTB SCH ×2 (05:42→17:22)
[2016-12-10 06:53] LABS: ADD SCAN DIFF NO
[2016-12-10 07:08] LABS: BASOPHILS % 0.3 % (0.0-2.0); EOSINOPHILS # 0.2 10^3/ul (0.0-0.5); EOSINOPHILS % 2.2 % (0.0-7.0); HEMOGLOBIN 9.5 g/dl (14.0-18.0); LYMPHOCYTES # 0.8 10^3/ul (0.8-2.9); LYMPHOCYTES % 8.9 % (15.0-51.0); MEAN CORPUSCULAR HEMOGLOBIN 31.9 pg (29.0-33.0); MEAN CORPUSCULAR HGB CONC 31.7 g/dl (32.0-37.0); MEAN CORPUSCULAR VOLUME 100.7 fl (82.0-101.0); MEAN PLATELET VOLUME 9.5 fl (7.4-10.4); MONOCYTE # 0.9 10^3/ul (0.3-0.9); MONOCYTES % 9.8 % (0.0-11.0); NEUTROPHIL # 7.1 10^3/ul (1.6-7.5); NEUTROPHILS % 78.1 % (39.0-77.0); PLATELET COUNT 191 10^3/UL (140-415); RED BLOOD COUNT 2.98 10^6/ul (4.70-6.10); RED CELL DISTRIBUTION WIDTH 17.2 % (11.5-14.5); WHITE BLOOD COUNT 9.1 10^3/ul (4.8-10.8)
[2016-12-10 07:17] LABS: CALCIUM 7.7 mg/dl (8.4-10.2); CREATININE 3.15 mg/dl (0.61-1.24); POTASSIUM 4.7 mmol/L (3.5-5.1)
[2016-12-10] MEDS: VITAMIN B COMPLEX/VIT C CAP GTB SCH (09:12)
[2016-12-10] MEDS: L ACIDOPHIL/B LACTIS/B LONGUM CAPSULE PEG SCH (09:12)
[2016-12-10] MEDS: FLUTICASONE 0.05% 16 GM NAS SPRAY NASAL SCH ×2 (09:12→20:52)
[2016-12-10] MEDS: DULOXETINE 30 MG CAP DR GTB SCH (09:12)
[2016-12-10] MEDS: CALCIUM/VITAMIN D (500/200) TAB GTB SCH (09:12)
[2016-12-10] MEDS: ASCORBIC ACID 500 MG TAB GTB SCH (09:12)
[2016-12-10] MEDS: NEUTRA-PHOS 250 MG PACKET GTB SCH ×2 (09:12→20:52)
[2016-12-10] MEDS: LIDOCAINE 5% PATCH TD SCH (09:12)
[2016-12-10] MEDS: COLLAGENASE 30 GM TUBE TOP SCH (09:13)
--- NOTE | 2016-12-10 10:43 | PN ---
DATE: 12/10/2016 SUBJECTIVE: The patient is stable, no acute events overnight. No fevers, chills, nausea, vomiting, shortness of breath. OBJECTIVE: VITAL SIGNS: Blood pressure 135/77, respirations 14, pulse 77, temperature 98.3. HEENT: Head is normocephalic. NECK: Supple. HEART: Regular rate. LUNGS: Show diminished breath sounds at base. ABDOMEN: Soft, nontender to palpation without rebound or guarding. EXTREMITIES: Negative for clubbing, cyanosis. Positive edema in the right lower extremity. Left B KA is noted. NEUROLOGIC: No change in exam. MUSCULOSKELETAL: No joint effusions. LABORATORY DATA: Shows sodium 134, potassium 4.7, BUN 59, creatinine 3.15, calcium is 7.7, white co unt 9.1, hemoglobin 9.5, hematocrit 30.0, platelet count is 191. ASSESSMENT AND PLAN: 1. End-stage renal disease. Scheduled for dialysis today for 3 hours, 3K bath, potassium 2.5, ult rafiltrate as tolerated. 2. Anemia of end-stage renal disease. Continue to monitor H and H levels. Continue Epogen. 3. Mineral bone disorder. Continue to monitor calcium and phosphorus levels. 4. Ventilatory dependent respiratory failure. Vent settings reviewed. Continue to monitor. Foll ow up with pulmonary. 4. Volume overload, congestive heart failure. Continue current medical management. 5. Dysphagia status post PEG. Continue tube feeding. 6. Coronary artery disease. Continue current treatment plan. 7. Decubitus wound. Continue wound care. 8. Pulmonary hypertension. Continue sildenafil. 9. Status post sepsis. Dictated By: SARAHI RINALDI/OLESYA Conf#: [id number] DID#: [id number]
--- NOTE | 2016-12-10 11:31 | CONS ---
Date/Time of Note Date/Time of Note DATE: 12/10/16 TIME: 11:30 Consult Date/Type/Reason Admit Date/Time Nov 08, 2016 at 10:56 Initial Consult Date 11/09/16 Type of Consultation: Pulm Ordering Provider: GRACIE KATHLEEN Subjective Patient remains stable continues hemodialysis this morning Objective Vital Signs Date Time Temp Pulse Resp B/P Pulse Ox O2 Delivery O2 Flow Rate FiO2 12/10/16 11:12 98.3 114 12 127/81 94 12/10/16 09:09 30 Intake and Output 12/09/16 12/09/16 12/10/16 15:00 23:00 07:00 Intake Total 750 ml 530 ml Balance 750 ml 530 ml Exam PHYSICAL EXAMINATION GENERAL: Elderly gentleman, on mechanical ventilation comfortable VITAL SIGNS: see below. HEENT: Pupils equal, round, and reactive to light. Tracheostomy site clean and intact. CARDIAC: S1, S2, CHEST: Diminished air entry bilaterally. ABDOMEN: Mildly distended. Bowel sounds present no guarding or rebound EXTREMITIES: No cyanosis, clubbing edema +1 NEUROLOGIC: Generalized weakness Results/Medications Result Diagram: 12/10/16 0520 12/10/16 0520 Results 24 hrs Laboratory Tests Test 12/10/16 05:20 White Blood Count 9.1 Red Blood Count 2.98 L Hemoglobin 9.5 L Hematocrit 30.0 L Mean Corpuscular Volume 100.7 Mean Corpuscular Hemoglobin 31.9 Mean Corpuscular Hemoglobin Concent 31.7 L Red Cell Distribution Width 17.2 H Platelet Count 191 Mean Platelet Volume 9.5 Neutrophils % 78.1 H Lymphocytes % 8.9 L Monocytes % 9.8 Eosinophils % 2.2 Basophils % 0.3 Nucleated Red Blood Cells % 0.0 Neutrophils # 7.1 Lymphocytes # 0.8 Monocytes # 0.9 Eosinophils # 0.2 Basophils # 0.0 Nucleated Red Blood Cells # 0.0 Sodium Level 134 L Potassium Level 4.7 Chloride Level 99 Carbon Dioxide Level 27 Anion Gap 13 Blood Urea Nitrogen 59 H Creatinine 3.15 H Glucose Level 172 Calcium Level 7.7 L Medications Current Medications Lidocaine (Lidoderm) 1 patch DAILY TD Last administered on 12/10/16t 09:12; Admin Dose 1 PATCH; Start 11/08/16 at 15:30 Acetaminophen (Tylenol Liquid) 325 mg Q4H PRN GTB MILD PAIN LEVEL 1-3 Last administered on 11/17/16 02:37; Admin Dose 325 MG; Start 11/08/16 at 15:30 Acetaminophen (Tylenol Liquid) 650 mg Q4H PRN GTB MODERATE PAIN LEVEL 4-6 Last administered on 12/09/16 18:00; Admin Dose 650 MG; Start 11/08/16 at 15:30 Ascorbic Acid (Vitamin C) 500 mg DAILY GTB Last administered on 12/10/16 09:12 ; Admin Dose 500 MG; Start 11/09/16 at 09:00 Atorvastatin Calcium (Lipitor) 40 mg QHS GTB Last administered on 12/09/16 21: 08; Admin Dose 40 MG; Start 11/08/16 at 21:00 Carvedilol (Coreg) 3.125 mg BID GTB Last administered on 12/08/16 21:12; Admin Dose 3.125 MG; Start 11/08/16 at 21:00 Duloxetine HCl (Cymbalta) 30 mg DAILY GTB Last administered on 12/10/16 09:12 ; Admin Dose 30 MG; Start 11/09/16 at 09:00 Fluticasone Propionate (Flonase 0.05% Nasal) 1 spray BID NASAL Last administered on 12/10/16 09:12; Admin Dose 1 SPRAY; Start 11/08/16 at 21:00 Vitamin B Complex/ Vitamin C (Berocca) 1 cap DAILY GTB Last administered on 09:12; Admin Dose 1 CAP; Start 11/09/16 at 09:00 Miscellaneous Information 1 ea NOTE XX ; Start 11/08/16 at 16:00 Glucose (Glutose) 15 gm Q15M PRN PO DECREASED GLUCOSE; Start 11/08/16 at 16:00 Glucose (Glutose) 22.5 gm Q15M PRN PO DECREASED GLUCOSE; Start 11/08/16 at 16: 00 Dextrose (D50w Syringe) 25 ml Q15M PRN IV DECREASED GLUCOSE Last administered on 11/30/16 19:05; Admin Dose 25 ML; Start 11/08/16 at 16:00 Dextrose (D50w Syringe) 50 ml Q15M PRN IV DECREASED GLUCOSE; Start 11/08/16 at 16:00 Glucagon (Glucagen) 1 mg Q15M PRN IM DECREASED GLUCOSE; Start 11/08/16 at 16:00 Glucose (Glutose) 15 gm Q15M PRN BUCCAL DECREASED GLUCOSE; Start 11/08/16 at 16 :00 Morphine Sulfate (morphine) 2 mg Q4H PRN IV PAIN LEVEL 7-10 Last administered on 12/08/16 21:25; Admin Dose 2 MG; Start 11/09/16 at 11:00 Collagenase (Santyl) 1 applic DAILY TOP Last administered on 12/10/16 09:13; Admin Dose 1 APPLIC; Start 11/09/16 at 16:00 Lorazepam (Ativan) 1 mg Q6H PRN IV AGITATION/ANXIETY Last administered on 10:39; Admin Dose 1 MG; Start 11/09/16 at 20:30 Sodium Phosphate (Neutra-Phos) 250 mg BID GTB Last administered on 12/10/16 09 :12; Admin Dose 250 MG; Start 11/10/16 at 09:00 Calcium/Vitamin D (Oyster Shell/ Vit-D (500/200)) 1 tab DAILY GTB Last administered on 12/10/16 09:12; Admin Dose 1 TAB; Start 11/12/16 at 11:00 Prochlorperazine (Compazine) 5 mg Q6H PRN GTB NAUSEA AND/OR VOMITING Last administered on 12/09/16 09:58; Admin Dose 5 MG; Start 11/17/16 at 17:30 Lansoprazole (Prevacid) 30 mg BID@06,18 GTB Last administered on 12/10/16 05: 42; Admin Dose 30 MG; Start 11/29/16 at 18:00 Lactobacillus Acidophilus (Florajen3 Capsule) 1 each DAILY PEG Last administered on 12/10/16 09:12; Admin Dose 1 EACH; Start 12/08/16 at 09:00 Acetaminophen/ Hydrocodone Bitart ([place] (7.5-325)) 1 tab Q4H PRN GTB PAIN LEVEL 4-7 Last administered on 12/09/16 16:31; Admin Dose 1 TAB; Start at 13:30 Assessment/Plan Chief Complaint/Hosp Course Assessment 1. Vent dependent respiratory failure 2. End-stage renal failure on hemodialysis 3. Recent urinary tract infection with sepsis 4. Anemia of chronic disease and possibly secondary to renal dysfunction 5. Dysphagia with G-tube Plan 1. Continue mechanical ventilation 2. Tube feeding as tolerated 3. Hemodialysis per nephrology 4. Antibiotics per infectious diseases 5. DVT and GI prophylaxis Disposition Discharge planning Problems: VALERIE CAMARENA MD, [facility] Dec 10, 2016 11:31
[2016-12-10] MEDS: morphine 2 MG INJ IV PRN ×2 (12:23→21:46)
[2016-12-10] MEDS: HYDROCODONE/APAP (7.5/325) TAB GTB PRN (16:06)
--- NOTE | 2016-12-10 16:20 | CONS ---
Date/Time of Note Date/Time of Note DATE: 12/10/16 TIME: 16:17 Assessment/Plan Assessment/Plan Additional Assessment/Plan Paroxysmal atrial tachycardia Possible GI bleed Respiratory failure status post tracheostomy Diastolic congestive heart failure End-stage renal disease on hemodialysis CAD with history of PCI Diabetes Peripheral arterial disease with history of amputation Pulmonary hypertension Hypotension, improved -Blood pressure trend improved with intermittent hypotension, holding parameters on coreg. -fluid management via hemodialysis as per our nephrology colleagues Consultation Date/Type/Reason Admit Date/Time Nov 08, 2016 at 10:56 Initial Consult Date 11/09/16 Type of Consultation: cv Referring Provider: GRACIE KATHLEEN 24 HR Interval Summary Free Text/Dictation Denies shortness of breath Exam/Review of Systems Vital Signs Vitals Vital Signs Date Time Temp Pulse Resp B/P Pulse Ox O2 Delivery O2 Flow Rate FiO2 12/10/16 16:00 98.2 99 19 109/64 95 12/10/16 15:33 30 Intake and Output 12/09/16 12/09/16 12/10/16 15:00 23:00 07:00 Intake Total 750 ml 530 ml Balance 750 ml 530 ml Exam No apparent distress Constitutional: alert, oriented Head: normocephalic Neck: other (Tracheostomy) Respiratory: other (Coarse breath sounds bilaterally, no wheezing) Cardiovascular: other (S1-S2 heard), regular rate and rhythm Gastrointestinal: bowel sounds, non-tender, soft Extremities: edema Results Result Diagram: 12/10/16 0520 12/10/16 0520 Results 24 hrs Laboratory Tests Test 12/10/16 05:20 White Blood Count 9.1 Red Blood Count 2.98 L Hemoglobin 9.5 L Hematocrit 30.0 L Mean Corpuscular Volume 100.7 Mean Corpuscular Hemoglobin 31.9 Mean Corpuscular Hemoglobin Concent 31.7 L Red Cell Distribution Width 17.2 H Platelet Count 191 Mean Platelet Volume 9.5 Neutrophils % 78.1 H Lymphocytes % 8.9 L Monocytes % 9.8 Eosinophils % 2.2 Basophils % 0.3 Nucleated Red Blood Cells % 0.0 Neutrophils # 7.1 Lymphocytes # 0.8 Monocytes # 0.9 Eosinophils # 0.2 Basophils # 0.0 Nucleated Red Blood Cells # 0.0 Sodium Level 134 L Potassium Level 4.7 Chloride Level 99 Carbon Dioxide Level 27 Anion Gap 13 Blood Urea Nitrogen 59 H Creatinine 3.15 H Glucose Level 172 Calcium Level 7.7 L Medications Medications Current Medications Lidocaine (Lidoderm) 1 patch DAILY TD Last administered on 12/10/16 09:12; Admin Dose 1 PATCH; Start 11/08/16 at 15:30 Acetaminophen (Tylenol Liquid) 325 mg Q4H PRN GTB MILD PAIN LEVEL 1-3 Last administered on 11/17/16 02:37; Admin Dose 325 MG; Start 11/08/16 at 15:30 Acetaminophen (Tylenol Liquid) 650 mg Q4H PRN GTB MODERATE PAIN LEVEL 4-6 Last administered on 12/09/16 18:00; Admin Dose 650 MG; Start 11/08/16 at 15:30 Ascorbic Acid (Vitamin C) 500 mg DAILY GTB Last administered on 12/10/16 09:12 ; Admin Dose 500 MG; Start 11/09/16 at 09:00 Atorvastatin Calcium (Lipitor) 40 mg QHS GTB Last administered on 12/09/16 21: 08; Admin Dose 40 MG; Start 11/08/16 at 21:00 Carvedilol (Coreg) 3.125 mg BID GTB Last administered on 12/08/16 21:12; Admin Dose 3.125 MG; Start 11/08/16 at 21:00 Duloxetine HCl (Cymbalta) 30 mg DAILY GTB Last administered on 12/10/16 09:12 ; Admin Dose 30 MG; Start 11/09/16 at 09:00 Fluticasone Propionate (Flonase 0.05% Nasal) 1 spray BID NASAL Last administered on 12/10/16 09:12; Admin Dose 1 SPRAY; Start 11/08/16 at 21:00 Vitamin B Complex/ Vitamin C (Ber[place]) 1 cap DAILY GTB Last administered on 09:12; Admin Dose 1 CAP; Start 11/09/16 at 09:00 Miscellaneous Information 1 ea NOTE XX ; Start 11/08/16 at 16:00 Glucose (Glutose) 15 gm Q15M PRN PO DECREASED GLUCOSE; Start 11/08/16 at 16:00 Glucose (Glutose) 22.5 gm Q15M PRN PO DECREASED GLUCOSE; Start 11/08/16 at 16: 00 Dextrose (D50w Syringe) 25 ml Q15M PRN IV DECREASED GLUCOSE Last administered on 11/30/16 19:05; Admin Dose 25 ML; Start 11/08/16 at 16:00 Dextrose (D50w Syringe) 50 ml Q15M PRN IV DECREASED GLUCOSE; Start 11/08/16 at 16:00 Glucagon (Glucagen) 1 mg Q15M PRN IM DECREASED GLUCOSE; Start 11/08/16 at 16:00 Glucose (Glutose) 15 gm Q15M PRN BUCCAL DECREASED GLUCOSE; Start 11/08/16 at 16 :00 Morphine Sulfate (morphine) 2 mg Q4H PRN IV PAIN LEVEL 7-10 Last administered on 12/10/16 12:23; Admin Dose 2 MG; Start 11/09/16 at 11:00 Collagenase (Santyl) 1 applic DAILY TOP Last administered on 12/10/16 09:13; Admin Dose 1 APPLIC; Start 11/09/16 at 16:00 Lorazepam (Ativan) 1 mg Q6H PRN IV AGITATION/ANXIETY Last administered on 10:39; Admin Dose 1 MG; Start 11/09/16 at 20:30 Sodium Phosphate (Neutra-Phos) 250 mg BID GTB Last administered on 12/10/16 09 :12; Admin Dose 250 MG; Start 11/10/16 at 09:00 Calcium/Vitamin D (Oyster Shell/ Vit-D (500/200)) 1 tab DAILY GTB Last administered on 12/10/16 09:12; Admin Dose 1 TAB; Start 11/12/16 at 11:00 Prochlorperazine (Compazine) 5 mg Q6H PRN GTB NAUSEA AND/OR VOMITING Last administered on 12/09/16 09:58; Admin Dose 5 MG; Start 11/17/16 at 17:30 Lansoprazole (Prevacid) 30 mg BID@,18 GTB Last administered on 12/10/16 05: 42; Admin Dose 30 MG; Start 11/29/16 at 18:00 Lactobacillus Acidophilus (Florajen3 Capsule) 1 each DAILY PEG Last administered on 12/10/16 09:12; Admin Dose 1 EACH; Start 12/08/16 at 09:00 Acetaminophen/ Hydrocodone Bitart ([place] (7.5-325)) 1 tab Q4H PRN GTB PAIN LEVEL 4-7 Last administered on 4/24/17at 16:06; Admin Dose 1 TAB; Start at 13:30 Solo Leon DO Dec 10, 2016 16:20
--- NOTE | 2016-12-10 18:22 | RADRPT ---
PROCEDURE: US Lower extremity Venous. CLINICAL INDICATION: Right leg swelling TECHNIQUE: Multiple sonographic images of the right lower extremity deep venous system was obtaine d utilizing grayscale, color-flow, compressive sonography and doppler imaging with augmentation. Th e images were reviewed on a PACS workstation. COMPARISON: Duplex sonogram of the right lower extremity veins from 11/19/2016 FINDINGS: There is normal compressibility and flow within the right common femoral, superficial femoral, poste rior tibial, peroneal and popliteal veins. RPTAT: AA IMPRESSION: No sonographic evidence for deep venous thrombosis in the right lower extremity. Physician Gideon Date Time Electronically viewed and signed by Physician Gideon on 12/10/2016 18:21 RA/
--- NOTE | 2016-12-10 18:31 | PN ---
Date/Time of Note Date/Time of Note DATE: 12/10/16 TIME: 18:30 Assessment/Plan VTE Prophylaxis VTE Prophylaxis Intervention: SCD's Lines/Catheters IV [facility] Saline Lock Urinary Cath still in place: No Assessment/Plan Chief Complaint/Hosp Course Assessment/Plan - Esophagitis per EGD. Continue Protonix. Dr. Hernandez is following in gastroenterology consultation. - Anemia of chronic disease, on Epogen, continue to monitor hemoglobin and hematocrit, transfuse as needed. - Ascites, SBP ruled out, Status post paracentesis 11/14, ascitic fluid culture negative. - Status post sepsis. Dr. Benjamin deluna is following in infection disease consultation. - End-stage renal disease, hemodialysis dependent. Continue hemodialysis per nephrology. - Chronic respiratory failure with tracheostomy. Dr. Sahu is following in pulmonology consultation. - Coronary artery disease with history of PCI. - Diastolic congestive heart failure, continue to remove fluids with hemodialysis. - Pulmonary hypertension - Peripheral vascular disease, status post left BKA. - Diabetes mellitus type 2, continue NovoLog per sliding scale. - Sacral decub present on admission. Continue current wound care. Pending care home facility placement. Further recommendations based on clinical course. Plan of care discussed with Dr. Miramontes. Problems: Subjective 24 Hr Interval Summary Free Text/Dictation No acute events overnight, patient looks comfortable. Exam/Review of Systems Vital Signs Vitals Vital Signs Date Time Temp Pulse Resp B/P Pulse Ox O2 Delivery O2 Flow Rate FiO2 12/10/16 17:11 102 20 98 30 12/10/16 16:00 98.2 109/64 Intake and Output 12/09/16 12/09/16 12/10/16 15:00 23:00 07:00 Intake Total 750 ml 530 ml Balance 750 ml 530 ml Exam GENERAL: Well-developed, well-nourished male, currently on vent support via trach. HEENT: Head is atraumatic, normocephalic. PERRLA. NECK: Supple. Tracheostomy at the base of the neck. LUNGS: Slightly diminished at the bases. Clear in the upper lobes. HEART: Normal S1, S2. No murmurs, gallops, clicks, rubs noted. ABDOMEN: Protuberant, soft, nondistended, nontender. G-tube in place. EXTREMITIES: The patient is status post left BKA. Right lower extremity with mild edema. The patient has a left upper extremity arteriovenous fistula with palpable thrill and audible bruit. SKIN: No rash, petechiae noted. Sacral decubitus ulcer. NEUROLOGIC: The patient is awake, alert. Results Result Diagram: 12/10/16 0520 12/10/16 0520 Results 24 hrs Laboratory Tests Test 12/10/16 05:20 White Blood Count 9.1 Red Blood Count 2.98 L Hemoglobin 9.5 L Hematocrit 30.0 L Mean Corpuscular Volume 100.7 Mean Corpuscular Hemoglobin 31.9 Mean Corpuscular Hemoglobin Concent 31.7 L Red Cell Distribution Width 17.2 H Platelet Count 191 Mean Platelet Volume 9.5 Neutrophils % 78.1 H Lymphocytes % 8.9 L Monocytes % 9.8 Eosinophils % 2.2 Basophils % 0.3 Nucleated Red Blood Cells % 0.0 Neutrophils # 7.1 Lymphocytes # 0.8 Monocytes # 0.9 Eosinophils # 0.2 Basophils # 0.0 Nucleated Red Blood Cells # 0.0 Sodium Level 134 L Potassium Level 4.7 Chloride Level 99 Carbon Dioxide Level 27 Anion Gap 13 Blood Urea Nitrogen 59 H Creatinine 3.15 H Glucose Level 172 Calcium Level 7.7 L Medications Medications Current Medications Lidocaine (Lidoderm) 1 patch DAILY TD Last administered on 12/10/16 09:12; Admin Dose 1 PATCH; Start 11/08/16 at 15:30 Acetaminophen (Tylenol Liquid) 325 mg Q4H PRN GTB MILD PAIN LEVEL 1-3 Last administered on 11/17/16 02:37; Admin Dose 325 MG; Start 11/08/16 at 15:30 Acetaminophen (Tylenol Liquid) 650 mg Q4H PRN GTB MODERATE PAIN LEVEL 4-6 Last administered on 12/09/16 18:00; Admin Dose 650 MG; Start 11/08/16 at 15:30 Ascorbic Acid (Vitamin C) 500 mg DAILY GTB Last administered on 12/10/16 09:12 ; Admin Dose 500 MG; Start 11/09/16 at 09:00 Atorvastatin Calcium (Lipitor) 40 mg QHS GTB Last administered on 12/09/16 21: 08; Admin Dose 40 MG; Start 11/08/16 at 21:00 Carvedilol (Coreg) 3.125 mg BID GTB Last administered on 12/08/16 21:12; Admin Dose 3.125 MG; Start 11/08/16 at 21:00 Duloxetine HCl (Cymbalta) 30 mg DAILY GTB Last administered on 12/10/16 09:12 ; Admin Dose 30 MG; Start 11/09/16 at 09:00 Fluticasone Propionate (Flonase 0.05% Nasal) 1 spray BID NASAL Last administered on 12/10/16 09:12; Admin Dose 1 SPRAY; Start 11/08/16 at 21:00 Vitamin B Complex/ Vitamin C (Berocca) 1 cap DAILY GTB Last administered on 09:12; Admin Dose 1 CAP; Start 11/09/16 at 09:00 Miscellaneous Information 1 ea NOTE XX ; Start 11/08/16 at 16:00 Glucose (Glutose) 15 gm Q15M PRN PO DECREASED GLUCOSE; Start 11/08/16 at 16:00 Glucose (Glutose) 22.5 gm Q15M PRN PO DECREASED GLUCOSE; Start 11/08/16 at 16: 00 Dextrose (D50w Syringe) 25 ml Q15M PRN IV DECREASED GLUCOSE Last administered on 11/30/16 19:05; Admin Dose 25 ML; Start 11/08/16 at 16:00 Dextrose (D50w Syringe) 50 ml Q15M PRN IV DECREASED GLUCOSE; Start 11/08/16 at 16:00 Glucagon (Glucagen) 1 mg Q15M PRN IM DECREASED GLUCOSE; Start 11/08/16 at 16:00 Glucose (Glutose) 15 gm Q15M PRN BUCCAL DECREASED GLUCOSE; Start 11/08/16 at 16 :00 Morphine Sulfate (morphine) 2 mg Q4H PRN IV PAIN LEVEL 7-10 Last administered on 12/10/16 12:23; Admin Dose 2 MG; Start 11/09/16 at 11:00 Collagenase (Santyl) 1 applic DAILY TOP Last administered on 12/10/16 09:13; Admin Dose 1 APPLIC; Start 11/09/16 at 16:00 Lorazepam (Ativan) 1 mg Q6H PRN IV AGITATION/ANXIETY Last administered on 17:22; Admin Dose 1 MG; Start 11/09/16 at 20:30 Sodium Phosphate (Neutra-Phos) 250 mg BID GTB Last administered on 12/10/16 09 :12; Admin Dose 250 MG; Start 11/10/16 at 09:00 Calcium/Vitamin D (Oyster Shell/ Vit-D (500/200)) 1 tab DAILY GTB Last administered on 12/10/16 09:12; Admin Dose 1 TAB; Start 11/12/16 at 11:00 Prochlorperazine (Compazine) 5 mg Q6H PRN GTB NAUSEA AND/OR VOMITING Last administered on 12/09/16 09:58; Admin Dose 5 MG; Start 11/17/16 at 17:30 Lansoprazole (Prevacid) 30 mg BID@18 GTB Last administered on 12/10/16 17: 22; Admin Dose 30 MG; Start 11/29/16 at 18:00 Lactobacillus Acidophilus (Florajen3 Capsule) 1 each DAILY PEG Last administered on 12/10/16 09:12; Admin Dose 1 EACH; Start 12/08/16 at 09:00 Acetaminophen/ Hydrocodone Bitart ([place] (7.5-325)) 1 tab Q4H PRN GTB PAIN LEVEL 4-7 Last administered on 12/10/16 16:06; Admin Dose 1 TAB; Start at 13:30 MARY DOMINGUEZ Dec 10, 2016 18:31
[2016-12-10] MEDS: ATORVASTATIN 40 MG TAB GTB SCH (20:52)
[2016-12-11] VITALS (25 sets, daily range): BP systolic 89–115; BP diastolic 53–70; PULSE 70–90; RESP 14–25
[2016-12-11] MEDS: LORAZEPAM 2 MG INJ IV PRN (02:02)
[2016-12-11] MEDS: LANSOPRAZOLE 30 MG CAP GTB SCH ×2 (05:05→17:23)
[2016-12-11 07:51] LABS: POTASSIUM 3.7 mmol/L (3.5-5.1)
[2016-12-11 07:53] LABS: CREATININE 2.7 mg/dl (0.61-1.24)
[2016-12-11 07:54] LABS: CALCIUM 7.6 mg/dl (8.4-10.2)
[2016-12-11] MEDS: DULOXETINE 30 MG CAP DR GTB SCH (09:25)
[2016-12-11] MEDS: VITAMIN B COMPLEX/VIT C CAP GTB SCH (09:25)
[2016-12-11] MEDS: CALCIUM/VITAMIN D (500/200) TAB GTB SCH (09:25)
[2016-12-11] MEDS: ASCORBIC ACID 500 MG TAB GTB SCH (09:25)
[2016-12-11] MEDS: LIDOCAINE 5% PATCH TD SCH (09:25)
[2016-12-11] MEDS: NEUTRA-PHOS 250 MG PACKET GTB SCH ×2 (09:25→22:04)
[2016-12-11] MEDS: L ACIDOPHIL/B LACTIS/B LONGUM CAPSULE PEG SCH (09:25)
[2016-12-11] MEDS: FLUTICASONE 0.05% 16 GM NAS SPRAY NASAL SCH ×2 (09:27→22:06)
[2016-12-11] MEDS: COLLAGENASE 30 GM TUBE TOP SCH (09:27)
--- NOTE | 2016-12-11 10:21 | PN ---
DATE: 12/11/2016 SUBJECTIVE: The patient had hemodialysis yesterday, tolerated well. No other events noted. OBJECTIVE: VITAL SIGNS: Blood pressure 110/68, respirations 16, pulse 78, temperature 98.2. HEENT: Head is normocephalic. NECK: Supple. HEART: Regular rate. LUNGS: Show diminished breath sounds at base. ABDOMEN: Soft, nontender to palpation without rebound or guarding. EXTREMITIES: Negative for clubbing, cyanosis. Positive edema on the right lower leg. Left above-k nee amputation noted. NEUROLOGIC: No change in exam. DERMATOLOGIC: No rashes. MEDICATIONS: Reviewed. LABORATORY DATA: Showed sodium 140, potassium 3.7, BUN 48, creatinine 2.70. White count 9.1, hemog lobin 9.5, hematocrit 30.0, platelet count is 191. ASSESSMENT AND PLAN: 1. End-stage renal disease. The patient had hemodialysis as tolerated well. Plan for dialysis aga in tomorrow. 2. Anemia of chronic end-stage renal disease. Continue to monitor H and H levels. Continue Epogen . 3. Mineral bone disorder. Continue to monitor calcium and phosphorus levels. 4. Ventilator dependent respiratory failure. Vent settings reviewed. Continue to monitor. 5. Volume overload, congestive heart failure. Continue ultrafiltration dialysis. Continue medical management. 6. Dysphagia status post PEG. Continue tube feeding. 7. Coronary artery disease. Continue current treatment plan. 8. Decubitus wound. Continue wound care. 9. Pulmonary hypertension, continue sildenafil. 10. Status post sepsis. DISPOSITION: The patient is pending SNF placement. Dictated By: SARAHI RINALDI/OLESYA Conf#: [id number] DID#: [id number]
--- NOTE | 2016-12-11 14:13 | PN ---
Date/Time of Note Date/Time of Note DATE: 12/11/16 TIME: 14:12 Assessment/Plan VTE Prophylaxis VTE Prophylaxis Intervention: SCD's Lines/Catheters IV C[facility]ter Type (from [facility] Sal[facility] Lock Urinary Cath still in place: No Assessment/Plan Chief Complaint/Hosp Course Assessment/Plan - Esophagitis per EGD. Continue Protonix. Dr. Hernandez is following in gastroenterology consultation. - Anemia of chronic disease, on Epogen, continue to monitor hemoglobin and hematocrit, transfuse as needed. - Ascites, SBP ruled out, Status post paracentesis 11/14, ascitic fluid culture negative. - Status post sepsis. Dr. Benjamin deluna is following in infection disease consultation. - End-stage renal disease, hemodialysis dependent. Continue hemodialysis per nephrology. - Chronic respiratory failure with tracheostomy. Dr. Sahu is following in pulmonology consultation. - Coronary artery disease with history of PCI. - Diastolic congestive heart failure, continue to remove fluids with hemodialysis. - Pulmonary hypertension - Peripheral vascular disease, status post left BKA. - Diabetes mellitus type 2, continue NovoLog per sliding scale. - Sacral decub present on admission. Continue current wound care. Pending shelter facility placement. Further recommendations based on clinical course. Plan of care discussed with Dr. Miramontes. Problems: Subjective 24 Hr Interval Summary Free Text/Dictation Patient looks comfortable, no acute issues per RN, patient tolerates G-tube feeding well. Exam/Review of Systems Vital Signs Vitals Vital Signs Date Time Temp Pulse Resp B/P Pulse Ox O2 Delivery O2 Flow Rate FiO2 12/11/16 13:55 75 98 12/11/16 11:45 14 30 12/11/16 11:27 97.8 105/55 Intake and Output 12/10/16 12/10/16 12/11/16 15:00 23:00 07:00 Intake Total 1600 ml 960 ml 310 ml Output Total 1600 ml Balance 0 ml 960 ml 310 ml Exam GENERAL: Well-developed, well-nourished male, currently on vent support via trach. HEENT: Head is atraumatic, normocephalic. PERRLA. NECK: Supple. Tracheostomy at the base of the neck. LUNGS: Slightly diminished at the bases. Clear in the upper lobes. HEART: Normal S1, S2. No murmurs, gallops, clicks, rubs noted. ABDOMEN: Protuberant, soft, nondistended, nontender. G-tube in place. EXTREMITIES: The patient is status post left BKA. Right lower extremity with mild edema. The patient has a left upper extremity arteriovenous fistula with palpable thrill and audible bruit. SKIN: No rash, petechiae noted. Sacral decubitus ulcer. NEUROLOGIC: The patient is awake, alert. Results Result Diagram: 12/10/16 0520 12/11/16 0654 Results 24 hrs Laboratory Tests Test 12/11/16 06:54 Sodium Level 140 Potassium Level 3.7 Chloride Level 100 Carbon Dioxide Level 30 Anion Gap 14 Blood Urea Nitrogen 48 #H Creatinine 2.70 H Glucose Level 181 Calcium Level 7.6 L Medications Medications Current Medications Lidocaine (Lidoderm) 1 patch DAILY TD Last administered on 12/11/16 09:25; Admin Dose 1 PATCH; Start 11/08/16 at 15:30 Acetaminophen (Tylenol Liquid) 325 mg Q4H PRN GTB MILD PAIN LEVEL 1-3 Last administered on 11/17/16 02:37; Admin Dose 325 MG; Start 11/08/16 at 15:30 Acetaminophen (Tylenol Liquid) 650 mg Q4H PRN GTB MODERATE PAIN LEVEL 4-6 Last administered on 12/09/16 18:00; Admin Dose 650 MG; Start 11/08/16 at 15:30 Ascorbic Acid (Vitamin C) 500 mg DAILY GTB Last administered on 12/11/16 09:25 ; Admin Dose 500 MG; Start 11/09/16 at 09:00 Atorvastatin Calcium (Lipitor) 40 mg QHS GTB Last administered on 12/10/16 20: 52; Admin Dose 40 MG; Start 11/08/16 at 21:00 Carvedilol (Coreg) 3.125 mg BID GTB Last administered on 12/11/16 09:26; Admin Dose 3.125 MG; Start 11/08/16 at 21:00 Duloxetine HCl (Cymbalta) 30 mg DAILY GTB Last administered on 12/11/16 09:25 ; Admin Dose 30 MG; Start 11/09/16 at 09:00 Fluticasone Propionate (Flonase 0.05% Nasal) 1 spray BID NASAL Last administered on 12/11/16 09:27; Admin Dose 1 SPRAY; Start 11/08/16 at 21:00 Vitamin B Complex/ Vitamin C (Berocca) 1 cap DAILY GTB Last administered on 09:25; Admin Dose 1 CAP; Start 11/09/16 at 09:00 Miscellaneous Information 1 ea NOTE XX ; Start 11/08/16 at 16:00 Glucose (Glutose) 15 gm Q15M PRN PO DECREASED GLUCOSE; Start 11/08/16 at 16:00 Glucose (Glutose) 22.5 gm Q15M PRN PO DECREASED GLUCOSE; Start 11/08/16 at 16: 00 Dextrose (D50w Syringe) 25 ml Q15M PRN IV DECREASED GLUCOSE Last administered on 11/30/16 19:05; Admin Dose 25 ML; Start 11/08/16 at 16:00 Dextrose (D50w Syringe) 50 ml Q15M PRN IV DECREASED GLUCOSE; Start 11/08/16 at 16:00 Glucagon (Glucagen) 1 mg Q15M PRN IM DECREASED GLUCOSE; Start 11/08/16 at 16:00 Glucose (Glutose) 15 gm Q15M PRN BUCCAL DECREASED GLUCOSE; Start 11/08/16 at 16 :00 Morphine Sulfate (morphine) 2 mg Q4H PRN IV PAIN LEVEL 7-10 Last administered on 12/10/16 21:46; Admin Dose 2 MG; Start 11/09/16 at 11:00 Collagenase (Santyl) 1 applic DAILY TOP Last administered on 12/11/16 09:27; Admin Dose 1 APPLIC; Start 11/09/16 at 16:00 Lorazepam (Ativan) 1 mg Q6H PRN IV AGITATION/ANXIETY Last administered on 02:02; Admin Dose 1 MG; Start 11/09/16 at 20:30 Sodium Phosphate (Neutra-Phos) 250 mg BID GTB Last administered on 12/11/16 09 :25; Admin Dose 250 MG; Start 11/10/16 at 09:00 Calcium/Vitamin D (Oyster Shell/ Vit-D (500/200)) 1 tab DAILY GTB Last administered on 12/11/16 09:25; Admin Dose 1 TAB; Start 11/12/16 at 11:00 Prochlorperazine (Compazine) 5 mg Q6H PRN GTB NAUSEA AND/OR VOMITING Last administered on 12/09/16 09:58; Admin Dose 5 MG; Start 11/17/16 at 17:30 Lansoprazole (Prevacid) 30 mg BID@,18 GTB Last administered on 12/11/16 05: 05; Admin Dose 30 MG; Start 11/29/16 at 18:00 Lactobacillus Acidophilus (Florajen3 Capsule) 1 each DAILY PEG Last administered on 12/11/16 09:25; Admin Dose 1 EACH; Start 12/08/16 at 09:00 Acetaminophen/ Hydrocodone Bitart ([place] (7.5-325)) 1 tab Q4H PRN GTB PAIN LEVEL 4-7 Last administered on 12/10/16 16:06; Admin Dose 1 TAB; Start at 13:30 MARY DOMINGUEZ Dec 11, 2016 14:13
--- NOTE | 2016-12-11 14:34 | CONS ---
Date/Time of Note Date/Time of Note DATE: 12/11/16 TIME: 14:32 Consult Date/Type/Reason Admit Date/Time Nov 08, 2016 at 10:56 Initial Consult Date 11/09/16 Type of Consultation: pulmonary Ordering Provider: GRACIE KATHLEEN Subjective Remains stable no new events Objective Vital Signs Date Time Temp Pulse Resp B/P Pulse Ox O2 Delivery O2 Flow Rate FiO2 12/11/16 13:55 75 17 98 30 12/11/16 11:27 97.8 105/55 Intake and Output 12/10/16 12/10/16 12/11/16 15:00 23:00 07:00 Intake Total 1600 ml 960 ml 310 ml Output Total 1600 ml Balance 0 ml 960 ml 310 ml Exam PHYSICAL EXAMINATION GENERAL: Elderly gentleman, on mechanical ventilation comfortable VITAL SIGNS: see below. HEENT: Pupils equal, round, and reactive to light. Tracheostomy site clean and intact. CARDIAC: S1, S2, CHEST: Diminished air entry bilaterally. ABDOMEN: Mildly distended. Bowel sounds present no guarding or rebound EXTREMITIES: No cyanosis, clubbing edema +1 NEUROLOGIC: Generalized weakness Results/Medications Result Diagram: 12/10/16 0520 12/11/16 0654 Results 24 hrs Laboratory Tests Test 12/11/16 06:54 Sodium Level 140 Potassium Level 3.7 Chloride Level 100 Carbon Dioxide Level 30 Anion Gap 14 Blood Urea Nitrogen 48 #H Creatinine 2.70 H Glucose Level 181 Calcium Level 7.6 L Medications Current Medications Lidocaine (Lidoderm) 1 patch DAILY TD Last administered on 12/11/16 09:25; Admin Dose 1 PATCH; Start 11/08/16 at 15:30 Acetaminophen (Tylenol Liquid) 325 mg Q4H PRN GTB MILD PAIN LEVEL 1-3 Last administered on 11/17/16 02:37; Admin Dose 325 MG; Start 11/08/16 at 15:30 Acetaminophen (Tylenol Liquid) 650 mg Q4H PRN GTB MODERATE PAIN LEVEL 4-6 Last administered on 12/09/16 18:00; Admin Dose 650 MG; Start 11/08/16 at 15:30 Ascorbic Acid (Vitamin C) 500 mg DAILY GTB Last administered on 12/11/16 09:25 ; Admin Dose 500 MG; Start 11/09/16 at 09:00 Atorvastatin Calcium (Lipitor) 40 mg QHS GTB Last administered on 12/10/16 20: 52; Admin Dose 40 MG; Start 11/08/16 at 21:00 Carvedilol (Coreg) 3.125 mg BID GTB Last administered on 12/11/16 09:26; Admin Dose 3.125 MG; Start 11/08/16 at 21:00 Duloxetine HCl (Cymbalta) 30 mg DAILY GTB Last administered on 12/11/16 09:25 ; Admin Dose 30 MG; Start 11/09/16 at 09:00 Fluticasone Propionate (Flonase 0.05% Nasal) 1 spray BID NASAL Last administered on 12/11/16 09:27; Admin Dose 1 SPRAY; Start 11/08/16 at 21:00 Vitamin B Complex/ Vitamin C (Berocca) 1 cap DAILY GTB Last administered on 09:25; Admin Dose 1 CAP; Start 11/09/16 at 09:00 Miscellaneous Information 1 ea NOTE XX ; Start 11/08/16 at 16:00 Glucose (Glutose) 15 gm Q15M PRN PO DECREASED GLUCOSE; Start 11/08/16 at 16:00 Glucose (Glutose) 22.5 gm Q15M PRN PO DECREASED GLUCOSE; Start 11/08/16 at 16: 00 Dextrose (D50w Syringe) 25 ml Q15M PRN IV DECREASED GLUCOSE Last administered on 11/30/16 19:05; Admin Dose 25 ML; Start 11/08/16 at 16:00 Dextrose (D50w Syringe) 50 ml Q15M PRN IV DECREASED GLUCOSE; Start 11/08/16 at 16:00 Glucagon (Glucagen) 1 mg Q15M PRN IM DECREASED GLUCOSE; Start 11/08/16 at 16:00 Glucose (Glutose) 15 gm Q15M PRN BUCCAL DECREASED GLUCOSE; Start 11/08/16 at 16 :00 Morphine Sulfate (morphine) 2 mg Q4H PRN IV PAIN LEVEL 7-10 Last administered on 12/10/16 21:46; Admin Dose 2 MG; Start 11/09/16 at 11:00 Collagenase (Santyl) 1 applic DAILY TOP Last administered on 12/11/16 09:27; Admin Dose 1 APPLIC; Start 11/09/16 at 16:00 Lorazepam (Ativan) 1 mg Q6H PRN IV AGITATION/ANXIETY Last administered on 02:02; Admin Dose 1 MG; Start 11/09/16 at 20:30 Sodium Phosphate (Neutra-Phos) 250 mg BID GTB Last administered on 12/11/16 09 :25; Admin Dose 250 MG; Start 11/10/16 at 09:00 Calcium/Vitamin D (Oyster Shell/ Vit-D (500/200)) 1 tab DAILY GTB Last administered on 12/11/16 09:25; Admin Dose 1 TAB; Start 11/12/16 at 11:00 Prochlorperazine (Compazine) 5 mg Q6H PRN GTB NAUSEA AND/OR VOMITING Last administered on 12/09/16 09:58; Admin Dose 5 MG; Start 11/17/16 at 17:30 Lansoprazole (Prevacid) 30 mg BID@,18 GTB Last administered on 12/11/16 05: 05; Admin Dose 30 MG; Start 11/29/16 at 18:00 Lactobacillus Acidophilus (Florajen3 Capsule) 1 each DAILY PEG Last administered on 12/11/16 09:25; Admin Dose 1 EACH; Start 12/08/16 at 09:00 Acetaminophen/ Hydrocodone Bitart ([place] (7.5-325)) 1 tab Q4H PRN GTB PAIN LEVEL 4-7 Last administered on 12/10/16 16:06; Admin Dose 1 TAB; Start at 13:30 Assessment/Plan Chief Complaint/Hosp Course Assessment 1. Vent dependent respiratory failure 2. End-stage renal failure on hemodialysis 3. Recent urinary tract infection with sepsis 4. Anemia of chronic disease and possibly secondary to renal dysfunction 5. Dysphagia with G-tube Plan 1. Continue mechanical ventilation 2. Tube feeding as tolerated 3. Hemodialysis per nephrology 4. Antibiotics per infectious diseases 5. DVT and GI prophylaxis Disposition Discharge planning Problems: VALER[facility] CAMARENA [facility], [facility] Dec 11, 2016 14:34
[2016-12-11] MEDS: HYDROCODONE/APAP (7.5/325) TAB GTB PRN (16:12)
[2016-12-11] MEDS: ATORVASTATIN 40 MG TAB GTB SCH (22:05)
[2016-12-12] VITALS (32 sets, daily range): BP systolic 90–111; BP diastolic 40–66; PULSE 72–86; RESP 15–27
[2016-12-12] MEDS: LANSOPRAZOLE 30 MG CAP GTB SCH ×2 (06:31→17:00)
[2016-12-12] MEDS: VITAMIN B COMPLEX/VIT C CAP GTB SCH (08:21)
[2016-12-12] MEDS: NEUTRA-PHOS 250 MG PACKET GTB SCH ×2 (08:21→23:09)
[2016-12-12] MEDS: ASCORBIC ACID 500 MG TAB GTB SCH (08:21)
[2016-12-12] MEDS: DULOXETINE 30 MG CAP DR GTB SCH (08:21)
[2016-12-12] MEDS: LIDOCAINE 5% PATCH TD SCH (08:21)
[2016-12-12] MEDS: CALCIUM/VITAMIN D (500/200) TAB GTB SCH (08:21)
[2016-12-12] MEDS: FLUTICASONE 0.05% 16 GM NAS SPRAY NASAL SCH ×2 (08:22→23:09)
[2016-12-12] MEDS: L ACIDOPHIL/B LACTIS/B LONGUM CAPSULE PEG SCH (08:27)
--- NOTE | 2016-12-12 10:49 | PN ---
DATE: 12/12/2016 SUBJECTIVE: The patient is stable. No events overnight. No fevers, chills, nausea, vomiting. OBJECTIVE: VITAL SIGNS: Blood pressure 108/58, respiration is 17, pulse 82, temperature 98.4. HEENT: Head is normocephalic. NECK: Shows trach. HEART: Regular rate. LUNGS: Show diminished breath sounds at the base. ABDOMEN: Soft, nontender to palpation without rebound or guarding. EXTREMITIES: Negative for clubbing, cyanosis. Positive edema right lower extremity, left above amp utation is noted. NEUROLOGIC: No change in exam. DERMATOLOGIC: No rashes. MUSCULOSKELETAL: No joint effusions. MEDICATIONS: Have been reviewed. LABORATORY DATA: Have been reviewed. No new labs. ASSESSMENT AND PLAN: 1. End-stage renal disease. The patient will be scheduled for dialysis today. Will dialyze for 3 h ours, 3 K bath, calcium 2.5. 2. Anemia of end-stage renal disease. Continue to monitor hemoglobin and hematocrit levels. Rachel nue Epogen. 3. Mineral bone disorder. Continue to monitor calcium and phosphorous levels. 4. Ventilatory-dependent respiratory failure. Vent settings reviewed. Continue to monitor. 5. Volume overload secondary to congestive heart failure. Continue ultrafiltration dialysis. Cont inue medical management. 6. History of dysphagia status post PEG, tube feeding. 7. Coronary artery disease. Continue current treatment plan. 8. Decubitus wound. Continue wound care. 9. Pulmonary hypertension. Continue Sildenafil. 10. Status post sepsis. Dictated By: SARAHI RINALDI/OLESYA Conf#: [id number] DID#: [id number]
[2016-12-12] MEDS: COLLAGENASE 30 GM TUBE TOP SCH (11:57)
[2016-12-12] MEDS: LORAZEPAM 2 MG INJ IV PRN ×2 (12:56→23:10)
--- NOTE | 2016-12-12 14:21 | CONS ---
Date/Time of Note Date/Time of Note DATE: 12/12/16 TIME: 14:19 Assessment/Plan Assessment/Plan Additional Assessment/Plan Ventilator settings; AC of 14, tidal volume 500, PEEP of 5, 30% FiO2. Assessment recommendations; 1. Patient admitted for UTI and sepsis status post treatment. 2. Chronic respiratory failure, ventilator dependent. 3. Chronic renal failure, on hemodialysis. Continue current supportive care. Patient awaiting discharge to senior living. Consultation Date/Type/Reason Admit Date/Time Nov 08, 2016 at 10:56 Initial Consult Date 11/08/16 Type of Consultation: pulmonary Referring Provider: GRACIE KATHLEEN 24 HR Interval Summary Free Text/Dictation Patient condition remains stable. Remains awake and alert. Has remained hemodynamically stable. Abdomen exam; elderly male, on ventilator via tracheostomy currently in no distress. Exam/Review of Systems Vital Signs Vitals Vital Signs Date Time Temp Pulse Resp B/P Pulse Ox O2 Delivery O2 Flow Rate FiO2 12/12/16 13:00 73 12/12/16 11:52 98.6 23 111/66 99 12/12/16 11:25 30 Intake and Output 12/11/16 12/11/16 12/12/16 15:00 23:00 07:00 Intake Total 580 ml 600 ml Balance 580 ml 600 ml Exam HEENT exam is; supple neck, positive JVD. No lymphadenopathy. Midline trachea. Patient multiple carious teeth. Tracheostomy in place with clean insertion site. Chest examination; clear to auscultation. S1-S2 audible, no murmurs. Regular rhythm. Abdomen examination; soft, G-tube in place. No organomegaly. Nontender. Bowel sounds audible. Extremity exam is; no peripheral edema. Patient does have ecchymosis involving all 4 extremities. There is a well-healed left below-knee amputation stump. 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 Results Result Diagram: 12/10/16 0520 12/11/16 0654 Medications Medications Current Medications Lidocaine (Lidoderm) 1 patch DAILY TD Last administered on 12/12/16 08:21; Admin Dose 1 PATCH; Start 11/08/16 at 15:30 Acetaminophen (Tylenol Liquid) 325 mg Q4H PRN GTB MILD PAIN LEVEL 1-3 Last administered on 11/17/16 02:37; Admin Dose 325 MG; Start 11/08/16 at 15:30 Acetaminophen (Tylenol Liquid) 650 mg Q4H PRN GTB MODERATE PAIN LEVEL 4-6 Last administered on 12/09/16 18:00; Admin Dose 650 MG; Start 11/08/16 at 15:30 Ascorbic Acid (Vitamin C) 500 mg DAILY GTB Last administered on 12/12/16 08:21 ; Admin Dose 500 MG; Start 11/09/16 at 09:00 Atorvastatin Calcium (Lipitor) 40 mg QHS GTB Last administered on 12/11/16 22: 05; Admin Dose 40 MG; Start 11/08/16 at 21:00 Carvedilol (Coreg) 3.125 mg BID GTB Last administered on 12/11/16 22:05; Admin Dose 3.125 MG; Start 11/08/16 at 21:00 Duloxetine HCl (Cymbalta) 30 mg DAILY GTB Last administered on 12/12/16 08:21 ; Admin Dose 30 MG; Start 11/09/16 at 09:00 Fluticasone Propionate (Flonase 0.05% Nasal) 1 spray BID NASAL Last administered on 12/12/16 08:22; Admin Dose 1 SPRAY; Start 11/08/16 at 21:00 Vitamin B Complex/ Vitamin C (Berocca) 1 cap DAILY GTB Last administered on 08:21; Admin Dose 1 CAP; Start 11/09/16 at 09:00 Miscellaneous Information 1 ea NOTE XX ; Start 11/08/16 at 16:00 Glucose (Glutose) 15 gm Q15M PRN PO DECREASED GLUCOSE; Start 11/08/16 at 16:00 Glucose (Glutose) 22.5 gm Q15M PRN PO DECREASED GLUCOSE; Start 11/08/16 at 16: 00 Dextrose (D50w Syringe) 25 ml Q15M PRN IV DECREASED GLUCOSE Last administered on 11/30/16 19:05; Admin Dose 25 ML; Start 11/08/16 at 16:00 Dextrose (D50w Syringe) 50 ml Q15M PRN IV DECREASED GLUCOSE; Start 11/08/16 at 16:00 Glucagon (Glucagen) 1 mg Q15M PRN IM DECREASED GLUCOSE; Start 11/08/16 at 16:00 Glucose (Glutose) 15 gm Q15M PRN BUCCAL DECREASED GLUCOSE; Start 11/08/16 at 16 :00 Morphine Sulfate (morphine) 2 mg Q4H PRN IV PAIN LEVEL 7-10 Last administered on 12/10/16 21:46; Admin Dose 2 MG; Start 11/09/16 at 11:00 Collagenase (Santyl) 1 applic DAILY TOP Last administered on 12/12/16 11:57; Admin Dose 1 APPLIC; Start 11/09/16 at 16:00 Lorazepam (Ativan) 1 mg Q6H PRN IV AGITATION/ANXIETY Last administered on 12:56; Admin Dose 1 MG; Start 11/09/16 at 20:30 Sodium Phosphate (Neutra-Phos) 250 mg BID GTB Last administered on 12/12/16 08 :21; Admin Dose 250 MG; Start 11/10/16 at 09:00 Calcium/Vitamin D (Oyster Shell/ Vit-D (500/200)) 1 tab DAILY GTB Last administered on 12/12/16 08:21; Admin Dose 1 TAB; Start 11/12/16 at 11:00 Prochlorperazine (Compazine) 5 mg Q6H PRN GTB NAUSEA AND/OR VOMITING Last administered on 12/09/16 09:58; Admin Dose 5 MG; Start 11/17/16 at 17:30 Lansoprazole (Prevacid) 30 mg BID@06,18 GTB Last administered on 12/12/16 06: 31; Admin Dose 30 MG; Start 11/29/16 at 18:00 Lactobacillus Acidophilus (Florajen3 Capsule) 1 each DAILY PEG Last administered on 12/12/16 08:27; Admin Dose 1 EACH; Start 12/08/16 at 09:00 Acetaminophen/ Hydrocodone Bitart ([place] (7.5-325)) 1 tab Q4H PRN GTB PAIN LEVEL 4-7 Last administered on 12/11/16 16:12; Admin Dose 1 TAB; Start at 13:30 EVLI BLNAK Dec 12, 2016 14:21
--- NOTE | 2016-12-12 16:24 | PN ---
Date/Time of Note Date/Time of Note DATE: 12/12/16 TIME: 16:23 Assessment/Plan VTE Prophylaxis VTE Prophylaxis Intervention: SCD's Lines/Catheters IV [facility] Type (from [facility] Urinary Cath still in place: No Assessment/Plan Chief Complaint/Hosp Course Assessment/Plan - Esophagitis per EGD. Continue Protonix. Dr. Hernandez is following in gastroenterology consultation. - Anemia of chronic disease, on Epogen, continue to monitor hemoglobin and hematocrit, transfuse as needed. - Ascites, SBP ruled out, Status post paracentesis 11/14, ascitic fluid culture negative. - Status post sepsis. Dr. Benjamin deluna is following in infection disease consultation. - End-stage renal disease, hemodialysis dependent. Continue hemodialysis per nephrology. - Chronic respiratory failure with tracheostomy. Dr. Sahu is following in pulmonology consultation. - Coronary artery disease with history of PCI. - Diastolic congestive heart failure, continue to remove fluids with hemodialysis. - Pulmonary hypertension - Peripheral vascular disease, status post left BKA. - Diabetes mellitus type 2, continue NovoLog per sliding scale. - Sacral decub present on admission. Continue current wound care. Pending [facility] facility placement. Further recommendations based on clinical course. Plan of care discussed with Dr. Miramontes. Problems: Subjective 24 Hr Interval Summary Free Text/Dictation No acute events overnight, patient tolerates G-tube feeding well, remains afebrile. Exam/Review of Systems Vital Signs Vitals Vital Signs Date Time Temp Pulse Resp B/P Pulse Ox O2 Delivery O2 Flow Rate FiO2 12/12/16 15:40 78 24 98 30 12/12/16 15:16 98.4 110/56 Intake and Output 12/11/16 12/11/16 12/12/16 15:00 23:00 07:00 Intake Total 580 ml 600 ml Balance 580 ml 600 ml Exam GENERAL: Well-developed, well-nourished male, currently on vent support via trach. HEENT: Head is atraumatic, normocephalic. PERRLA. NECK: Supple. Tracheostomy at the base of the neck. LUNGS: Slightly diminished at the bases. Clear in the upper lobes. HEART: Normal S1, S2. No murmurs, gallops, clicks, rubs noted. ABDOMEN: Protuberant, soft, nondistended, nontender. G-tube in place. EXTREMITIES: The patient is status post left BKA. Right lower extremity with mild edema. The patient has a left upper extremity arteriovenous fistula with palpable thrill and audible bruit. SKIN: No rash, petechiae noted. Sacral decubitus ulcer. NEUROLOGIC: The patient is awake, alert. Results Result Diagram: 12/10/16 0520 12/11/16 0654 Medications Medications Current Medications Lidocaine (Lidoderm) 1 patch DAILY TD Last administered on 12/12/16 08:21; Admin Dose 1 PATCH; Start 11/08/16 at 15:30 Acetaminophen (Tylenol Liquid) 325 mg Q4H PRN GTB MILD PAIN LEVEL 1-3 Last administered on 11/17/16 02:37; Admin Dose 325 MG; Start 11/08/16 at 15:30 Acetaminophen (Tylenol Liquid) 650 mg Q4H PRN GTB MODERATE PAIN LEVEL 4-6 Last administered on 12/09/16 18:00; Admin Dose 650 MG; Start 11/08/16 at 15:30 Ascorbic Acid (Vitamin C) 500 mg DAILY GTB Last administered on 12/12/16 08:21 ; Admin Dose 500 MG; Start 11/09/16 at 09:00 Atorvastatin Calcium (Lipitor) 40 mg QHS GTB Last administered on 12/11/16 22: 05; Admin Dose 40 MG; Start 11/08/16 at 21:00 Carvedilol (Coreg) 3.125 mg BID GTB Last administered on 12/11/16 22:05; Admin Dose 3.125 MG; Start 11/08/16 at 21:00 Duloxetine HCl (Cymbalta) 30 mg DAILY GTB Last administered on 12/12/16 08:21 ; Admin Dose 30 MG; Start 11/09/16 at 09:00 Fluticasone Propionate (Flonase 0.05% Nasal) 1 spray BID NASAL Last administered on 12/12/16 08:22; Admin Dose 1 SPRAY; Start 11/08/16 at 21:00 Vitamin B Complex/ Vitamin C (Berocca) 1 cap DAILY GTB Last administered on 08:21; Admin Dose 1 CAP; Start 11/09/16 at 09:00 Miscellaneous Information 1 ea NOTE XX ; Start 11/08/16 at 16:00 Glucose (Glutose) 15 gm Q15M PRN PO DECREASED GLUCOSE; Start 11/08/16 at 16:00 Glucose (Glutose) 22.5 gm Q15M PRN PO DECREASED GLUCOSE; Start 11/08/16 at 16: 00 Dextrose (D50w Syringe) 25 ml Q15M PRN IV DECREASED GLUCOSE Last administered on 11/30/16 19:05; Admin Dose 25 ML; Start 11/08/16 at 16:00 Dextrose (D50w Syringe) 50 ml Q15M PRN IV DECREASED GLUCOSE; Start 11/08/16 at 16:00 Glucagon (Glucagen) 1 mg Q15M PRN IM DECREASED GLUCOSE; Start 11/08/16 at 16:00 Glucose (Glutose) 15 gm Q15M PRN BUCCAL DECREASED GLUCOSE; Start 11/08/16 at 16 :00 Morphine Sulfate (morphine) 2 mg Q4H PRN IV PAIN LEVEL 7-10 Last administered on 12/10/16 21:46; Admin Dose 2 MG; Start 11/09/16 at 11:00 Collagenase (Santyl) 1 applic DAILY TOP Last administered on 12/12/16 11:57; Admin Dose 1 APPLIC; Start 11/09/16 at 16:00 Lorazepam (Ativan) 1 mg Q6H PRN IV AGITATION/ANXIETY Last administered on 12:56; Admin Dose 1 MG; Start 11/09/16 at 20:30 Sodium Phosphate (Neutra-Phos) 250 mg BID GTB Last administered on 12/12/16 08 :21; Admin Dose 250 MG; Start 11/10/16 at 09:00 Calcium/Vitamin D (Oyster Shell/ Vit-D (500/200)) 1 tab DAILY GTB Last administered on 12/12/16 08:21; Admin Dose 1 TAB; Start 11/12/16 at 11:00 Prochlorperazine (Compazine) 5 mg Q6H PRN GTB NAUSEA AND/OR VOMITING Last administered on 12/09/16 09:58; Admin Dose 5 MG; Start 11/17/16 at 17:30 Lansoprazole (Prevacid) 30 mg BID@,18 GTB Last administered on 12/12/16 06: 31; Admin Dose 30 MG; Start 11/29/16 at 18:00 Lactobacillus Acidophilus (Florajen3 Capsule) 1 each DAILY PEG Last administered on 12/12/16 08:27; Admin Dose 1 EACH; Start 12/08/16 at 09:00 Acetaminophen/ Hydrocodone Bitart ([place] (7.5-325)) 1 tab Q4H PRN GTB PAIN LEVEL 4-7 Last administered on 12/11/16 16:12; Admin Dose 1 TAB; Start at 13:30 MARY DOMINGUEZ Dec 12, 2016 16:24
[2016-12-12] MEDS: HYDROCODONE/APAP (7.5/325) TAB GTB PRN (17:01)
[2016-12-12] MEDS: ATORVASTATIN 40 MG TAB GTB SCH (23:09)
[2016-12-13] VITALS (23 sets, daily range): BP systolic 103–125; BP diastolic 56–67; PULSE 69–81; RESP 15–27
[2016-12-13] MEDS: morphine 2 MG INJ IV PRN ×4 (02:59→21:48)
[2016-12-13] MEDS: LANSOPRAZOLE 30 MG CAP GTB SCH ×2 (05:58→17:33)
[2016-12-13] MEDS: ASCORBIC ACID 500 MG TAB GTB SCH (08:16)
[2016-12-13] MEDS: FLUTICASONE 0.05% 16 GM NAS SPRAY NASAL SCH ×2 (08:16→21:50)
[2016-12-13] MEDS: LIDOCAINE 5% PATCH TD SCH (08:17)
[2016-12-13] MEDS: DULOXETINE 30 MG CAP DR GTB SCH (08:17)
[2016-12-13] MEDS: L ACIDOPHIL/B LACTIS/B LONGUM CAPSULE PEG SCH (08:17)
[2016-12-13] MEDS: CALCIUM/VITAMIN D (500/200) TAB GTB SCH (08:17)
[2016-12-13] MEDS: VITAMIN B COMPLEX/VIT C CAP GTB SCH (08:17)
[2016-12-13] MEDS: NEUTRA-PHOS 250 MG PACKET GTB SCH ×2 (08:18→21:49)
[2016-12-13] MEDS: COLLAGENASE 30 GM TUBE TOP SCH (08:22)
--- NOTE | 2016-12-13 10:17 | PN ---
DATE: 12/13/2016 SUBJECTIVE: The patient is stable. No events overnight. The patient had hemodialysis yesterday an d tolerated it well. OBJECTIVE: VITAL SIGNS: Blood pressure 110/59, respirations 19, pulse 75, temperature 98.6. HEENT: Head is normocephalic. NECK: Supple. HEART: Regular rate. LUNGS: Showed diminished breath sounds at the base. ABDOMEN: Soft, nontender to palpation. No rebound or guarding. EXTREMITIES: Negative for clubbing or cyanosis. Positive edema of the right leg. Left above-knee amputation noted. DERMATOLOGIC: No rashes. MUSCULOSKELETAL: Have no joint effusion. NEUROLOGIC: No change in exam. MEDICATIONS: The patient's medications have been reviewed. LABORATORY DATA: Have been reviewed. No new labs. ASSESSMENT AND PLAN: 1. End-stage renal disease. The patient will be scheduled for dialysis tomorrow for 3 hours, 3K ba th, calcium 2.5. 2. Anemia of end-stage renal disease. continue to monitor hemoglobin and hematocrit levels. Rachel nue Epogen. 3. Mineral bone disorder. Continue to monitor calcium and phosphorus levels. 4. Ventilator-dependent respiratory failure. Vent settings have been reviewed. Continue to monito r. 5. Volume overload secondary to congestive heart failure. Continue ultrafiltration dialysis. 6. Dysphagia. Status post PEG. Continue tube feeding. 7. Coronary artery disease. Continue the current treatment plan. 7. Decubitus wound. Continue wound care. 8. Pulmonary hypertension. Continue Sildenafil. 9. Status post sepsis. Dictated By: SARAHI RINALDI/OLESYA Conf#: [id number] DID#: [id number]
--- NOTE | 2016-12-13 11:40 | CONS ---
Date/Time of Note Date/Time of Note DATE: 12/13/16 TIME: 11:38 Assessment/Plan Assessment/Plan Additional Assessment/Plan Ventilator settings; AC of 14, tidal volume 500, PEEP of 5, 30% FiO2. Next Assessment recommendations; 1. Patient admitted for UTI and sepsis status post antibiotic treatment. 2. Chronic respiratory failure. 3. End-stage renal disease, on hemodialysis. Continue current treatment. Patient awaiting transfer to [facility]. Consultation Date/Type/Reason Admit Date/Time Nov 08, 2016 at 10:56 Initial Consult Date 11/08/16 Type of Consultation: pulmonary Referring Provider: GRACIE KATHLEEN 24 HR Interval Summary Free Text/Dictation Patient condition remains stable. Awaiting discharge to [facility]. Has remained hemodynamically stable. General exam; elderly male, on ventilator via tracheostomy, awake alert currently in no distress. Exam/Review of Systems Vital Signs Vitals Vital Signs Date Time Temp Pulse Resp B/P Pulse Ox O2 Delivery O2 Flow Rate FiO2 12/13/16 11:37 98.8 78 19 113/67 99 12/13/16 11:10 30 Intake and Output 12/12/16 12/12/16 12/13/16 15:00 23:00 07:00 Intake Total 500 ml 580 ml 630 ml Output Total 1500 ml Balance -1000 ml 580 ml 630 ml Exam HEENT exam is; supple neck, no JVD. No lymphadenopathy. Midline trachea. No thyromegaly. Pupils are small bilaterally. Patient does have multiple carious teeth. Tracheostomy in place with clean insertion site. Chest examination; clear to auscultation. S1-S2 audible, no murmurs. Regular rhythm. Abdomen examination; soft, no organomegaly. G-tube in place. Bowel sounds audible. Abdomen exam and exam; no peripheral edema. Patient has well-healed left below- knee amputation stump. 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 Results Result Diagram: 12/10/16 0520 12/11/16 0654 Medications Medications Current Medications Lidocaine (Lidoderm) 1 patch DAILY TD Last administered on 12/13/16 08:17; Admin Dose 1 PATCH; Start 11/08/16 at 15:30 Acetaminophen (Tylenol Liquid) 325 mg Q4H PRN GTB MILD PAIN LEVEL 1-3 Last administered on 11/17/16 02:37; Admin Dose 325 MG; Start 11/08/16 at 15:30 Acetaminophen (Tylenol Liquid) 650 mg Q4H PRN GTB MODERATE PAIN LEVEL 4-6 Last administered on 12/09/16 18:00; Admin Dose 650 MG; Start 11/08/16 at 15:30 Ascorbic Acid (Vitamin C) 500 mg DAILY GTB Last administered on 12/13/16 08:16 ; Admin Dose 500 MG; Start 11/09/16 at 09:00 Atorvastatin Calcium (Lipitor) 40 mg QHS GTB Last administered on 12/12/16 23: 09; Admin Dose 40 MG; Start 11/08/16 at 21:00 Carvedilol (Coreg) 3.125 mg BID GTB Last administered on 12/13/16 08:17; Admin Dose 3.125 MG; Start 11/08/16 at 21:00 Duloxetine HCl (Cymbalta) 30 mg DAILY GTB Last administered on 12/13/16 08:17 ; Admin Dose 30 MG; Start 11/09/16 at 09:00 Fluticasone Propionate (Flonase 0.05% Nasal) 1 spray BID NASAL Last administered on 12/13/16 08:16; Admin Dose 1 SPRAY; Start 11/08/16 at 21:00 Vitamin B Complex/ Vitamin C (Berocca) 1 cap DAILY GTB Last administered on 08:17; Admin Dose 1 CAP; Start 11/09/16 at 09:00 Miscellaneous Information 1 ea NOTE XX ; Start 11/08/16 at 16:00 Glucose (Glutose) 15 gm Q15M PRN PO DECREASED GLUCOSE; Start 11/08/16 at 16:00 Glucose (Glutose) 22.5 gm Q15M PRN PO DECREASED GLUCOSE; Start 11/08/16 at 16: 00 Dextrose (D50w Syringe) 25 ml Q15M PRN IV DECREASED GLUCOSE Last administered on 11/30/16 19:05; Admin Dose 25 ML; Start 11/08/16 at 16:00 Dextrose (D50w Syringe) 50 ml Q15M PRN IV DECREASED GLUCOSE; Start 11/08/16 at 16:00 Glucagon (Glucagen) 1 mg Q15M PRN IM DECREASED GLUCOSE; Start 11/08/16 at 16:00 Glucose (Glutose) 15 gm Q15M PRN BUCCAL DECREASED GLUCOSE; Start 11/08/16 at 16 :00 Morphine Sulfate (morphine) 2 mg Q4H PRN IV PAIN LEVEL 7-10 Last administered on 12/13/16 02:59; Admin Dose 2 MG; Start 11/09/16 at 11:00 Collagenase (Santyl) 1 applic DAILY TOP Last administered on 12/13/16 08:22; Admin Dose 1 APPLIC; Start 11/09/16 at 16:00 Lorazepam (Ativan) 1 mg Q6H PRN IV AGITATION/ANXIETY Last administered on 23:10; Admin Dose 1 MG; Start 11/09/16 at 20:30 Sodium Phosphate (Neutra-Phos) 250 mg BID GTB Last administered on 12/13/16 08 :18; Admin Dose 250 MG; Start 11/10/16 at 09:00 Calcium/Vitamin D (Oyster Shell/ Vit-D (500/200)) 1 tab DAILY GTB Last administered on 12/13/16 08:17; Admin Dose 1 TAB; Start 11/12/16 at 11:00 Prochlorperazine (Compazine) 5 mg Q6H PRN GTB NAUSEA AND/OR VOMITING Last administered on 12/09/16 09:58; Admin Dose 5 MG; Start 11/17/16 at 17:30 Lansoprazole (Prevacid) 30 mg BID@06,18 GTB Last administered on 12/13/16 05: 58; Admin Dose 30 MG; Start 11/29/16 at 18:00 Lactobacillus Acidophilus (Florajen3 Capsule) 1 each DAILY PEG Last administered on 12/13/16 08:17; Admin Dose 1 EACH; Start 12/08/16 at 09:00 Acetaminophen/ Hydrocodone Bitart ([place] (7.5-325)) 1 tab Q4H PRN GTB PAIN LEVEL 4-7 Last administered on 12/12/16 17:01; Admin Dose 1 TAB; Start at 13:30 ELVI BLANK Dec 13, 2016 11:40
--- NOTE | 2016-12-13 14:22 | PN ---
Date/Time of Note Date/Time of Note DATE: 12/13/16 TIME: 14:21 Assessment/Plan VTE Prophylaxis VTE Prophylaxis Intervention: other Lines/Catheters IV [facility] Type (from [facility] Saline Lock Urinary Cath still in place: No Assessment/Plan Assessment/Plan - Esophagitis per EGD. Continue Protonix. Dr. Hernandez is following in gastroenterology consultation. - Anemia of chronic disease, on Epogen, continue to monitor hemoglobin and hematocrit, transfuse as needed. - Ascites, SBP ruled out, Status post paracentesis 11/14, ascitic fluid culture negative. - Status post sepsis. Dr. Benjamin deluna is following in infection disease consultation. - End-stage renal disease, hemodialysis dependent. Continue hemodialysis per nephrology. - Chronic respiratory failure with tracheostomy. Dr. Sahu is following in pulmonology consultation. - Coronary artery disease with history of PCI. - Diastolic congestive heart failure, continue to remove fluids with hemodialysis. - Pulmonary hypertension - Peripheral vascular disease, status post left BKA. - Diabetes mellitus type 2, continue NovoLog per sliding scale. - Sacral decub present on admission. Continue current wound care. Pending [facility] facility [facility]. Further recommendations based on clinical course. Plan of care discussed with Dr. Miramontes. Subjective 24 Hr Interval Summary Free Text/Dictation nad, awake, alert, follows simple commands, afebrile, tolerates feedings, dw staff- no acute events reported overnight. Constitutional: requiring IVF, requiring O2 Eyes: no complaints ENT: no complaints Respiratory: no complaints Cardiovascular: no complaints Gastrointestinal: no complaints Genitourinary: no complaints Musculoskeletal: no complaints Skin: no complaints Neurologic: no complaints Exam/Review of Systems Vital Signs Vitals Vital Signs Date Time Temp Pulse Resp B/P Pulse Ox O2 Delivery O2 Flow Rate FiO2 12/13/16 13:35 68 18 97 30 12/13/16 11:37 98.8 113/67 Intake and Output 12/12/16 12/12/16 12/13/16 15:00 23:00 07:00 Intake Total 500 ml 580 ml 630 ml Output Total 1500 ml Balance -1000 ml 580 ml 630 ml Exam Constitutional: alert Psych: no complaints Eyes: EOMI ENMT: nl external ears & nose Neck: non-tender Respiratory: diminished breath sounds Cardiovascular: nl pulses Gastrointestinal: non-tender, soft Musculoskeletal: muscle weakness, other Extremities: edema (RLE- trace, neg for DVT) Neurological: other (aler, oriented to name only) Skin: other Lymph: nontender Results Result Diagram: 12/10/16 0520 12/11/16 0654 Medications Medications Current Medications Lidocaine (Lidoderm) 1 patch DAILY TD Last administered on 12/13/16 08:17; Admin Dose 1 PATCH; Start 11/08/16 at 15:30 Acetaminophen (Tylenol Liquid) 325 mg Q4H PRN GTB MILD PAIN LEVEL 1-3 Last administered on 11/17/16 02:37; Admin Dose 325 MG; Start 11/08/16 at 15:30 Acetaminophen (Tylenol Liquid) 650 mg Q4H PRN GTB MODERATE PAIN LEVEL 4-6 Last administered on 12/09/16 18:00; Admin Dose 650 MG; Start 11/08/16 at 15:30 Ascorbic Acid (Vitamin C) 500 mg DAILY GTB Last administered on 12/13/16 08:16 ; Admin Dose 500 MG; Start 11/09/16 at 09:00 Atorvastatin Calcium (Lipitor) 40 mg QHS GTB Last administered on 12/12/16 23: 09; Admin Dose 40 MG; Start 11/08/16 at 21:00 Carvedilol (Coreg) 3.125 mg BID GTB Last administered on 12/13/16 08:17; Admin Dose 3.125 MG; Start 11/08/16 at 21:00 Duloxetine HCl (Cymbalta) 30 mg DAILY GTB Last administered on 12/13/16 08:17 ; Admin Dose 30 MG; Start 11/09/16 at 09:00 Fluticasone Propionate (Flonase 0.05% Nasal) 1 spray BID NASAL Last administered on 12/13/16 08:16; Admin Dose 1 SPRAY; Start 11/08/16 at 21:00 Vitamin B Complex/ Vitamin C (Berocca) 1 cap DAILY GTB Last administered on 08:17; Admin Dose 1 CAP; Start 11/09/16 at 09:00 Miscellaneous Information 1 ea NOTE XX ; Start 11/08/16 at 16:00 Glucose (Glutose) 15 gm Q15M PRN PO DECREASED GLUCOSE; Start 11/08/16 at 16:00 Glucose (Glutose) 22.5 gm Q15M PRN PO DECREASED GLUCOSE; Start 11/08/16 at 16: 00 Dextrose (D50w Syringe) 25 ml Q15M PRN IV DECREASED GLUCOSE Last administered on 11/30/16 19:05; Admin Dose 25 ML; Start 11/08/16 at 16:00 Dextrose (D50w Syringe) 50 ml Q15M PRN IV DECREASED GLUCOSE; Start 11/08/16 at 16:00 Glucagon (Glucagen) 1 mg Q15M PRN IM DECREASED GLUCOSE; Start 11/08/16 at 16:00 Glucose (Glutose) 15 gm Q15M PRN BUCCAL DECREASED GLUCOSE; Start 11/08/16 at 16 :00 Morphine Sulfate (morphine) 2 mg Q4H PRN IV PAIN LEVEL 7-10 Last administered on 12/13/16 02:59; Admin Dose 2 MG; Start 11/09/16 at 11:00 Collagenase (Santyl) 1 applic DAILY TOP Last administered on 12/13/16 08:22; Admin Dose 1 APPLIC; Start 11/09/16 at 16:00 Lorazepam (Ativan) 1 mg Q6H PRN IV AGITATION/ANXIETY Last administered on 23:10; Admin Dose 1 MG; Start 11/09/16 at 20:30 Sodium Phosphate (Neutra-Phos) 250 mg BID GTB Last administered on 12/13/16 08 :18; Admin Dose 250 MG; Start 11/10/16 at 09:00 Calcium/Vitamin D ([place]yster [place]/ Vit-D (500/200)) 1 tab DAILY GTB Last administered on 12/13/16 08:17; Admin Dose 1 TAB; Start 11/12/16 at 11:00 Prochlorperazine (Compazine) 5 mg Q6H PRN GTB NAUSEA AND/OR VOMITING Last administered on 12/09/16 09:58; Admin Dose 5 MG; Start 11/17/16 at 17:30 Lansoprazole (Prevacid) 30 mg BID@ GTB Last administered on 12/13/16 05: 58; Admin Dose 30 MG; Start 11/29/16 at 18:00 Lactobacillus Acidophilus (Florajen3 Capsule) 1 each DAILY PEG Last administered on 12/13/16 08:17; Admin Dose 1 EACH; Start 12/08/16 at 09:00 Acetaminophen/ Hydrocodone Bitart ([place] (7.5-325)) 1 tab Q4H PRN GTB PAIN LEVEL 4-7 Last administered on 12/12/16t 17:01; Admin Dose 1 TAB; Start at 13:30 GRACIE KATHLEEN Dec 13, 2016 14:22
--- NOTE | 2016-12-13 14:55 | CONS ---
Date/Time of Note Date/Time of Note DATE: 12/13/16 TIME: 14:53 Assessment/Plan Assessment/Plan Additional Assessment/Plan Paroxysmal atrial tachycardia Possible GI bleed Respiratory failure status post tracheostomy Diastolic congestive heart failure End-stage renal disease on hemodialysis CAD Diabetes Peripheral arterial disease with history of amputation Pulmonary hypertension Hypotension, improved -Blood pressure trend improved, holding parameters on coreg. -fluid management via hemodialysis as per our nephrology colleagues Consultation Date/Type/Reason Admit Date/Time Nov 08, 2016 at 10:56 Initial Consult Date 11/09/16 Type of Consultation: cv Referring Provider: GRACIE KATHLEEN 24 HR Interval Summary Free Text/Dictation Denies shortness of breath, chest pain Exam/Review of Systems Vital Signs Vitals Vital Signs Date Time Temp Pulse Resp B/P Pulse Ox O2 Delivery O2 Flow Rate FiO2 12/13/16 13:35 68 18 97 30 12/13/16 11:37 98.8 113/67 Intake and Output 12/12/16 12/12/16 12/13/16 14:59 22:59 06:59 Intake Total 500 ml 580 ml 630 ml Output Total 1500 ml Balance -1000 ml 580 ml 630 ml Exam No apparent distress Constitutional: alert, oriented Head: normocephalic Neck: other (Tracheostomy) Respiratory: other (Coarse breath sounds bilaterally, no wheezing) Cardiovascular: other (S1-S2 heard), regular rate and rhythm Gastrointestinal: bowel sounds, other (Diffuse discomfort with palpation), soft Extremities: edema Results Result Diagram: 12/10/16 0520 12/11/16 0654 Medications Medications Current Medications Lidocaine (Lidoderm) 1 patch DAILY TD Last administered on 12/13/16 08:17; Admin Dose 1 PATCH; Start 11/08/16 at 15:30 Acetaminophen (Tylenol Liquid) 325 mg Q4H PRN GTB MILD PAIN LEVEL 1-3 Last administered on 11/17/16 02:37; Admin Dose 325 MG; Start 11/08/16 at 15:30 Acetaminophen (Tylenol Liquid) 650 mg Q4H PRN GTB MODERATE PAIN LEVEL 4-6 Last administered on 12/09/16 18:00; Admin Dose 650 MG; Start 11/08/16 at 15:30 Ascorbic Acid (Vitamin C) 500 mg DAILY GTB Last administered on 12/13/16 08:16 ; Admin Dose 500 MG; Start 11/09/16 at 09:00 Atorvastatin Calcium (Lipitor) 40 mg QHS GTB Last administered on 12/12/16 23: 09; Admin Dose 40 MG; Start 11/08/16 at 21:00 Carvedilol (Coreg) 3.125 mg BID GTB Last administered on 12/13/16 08:17; Admin Dose 3.125 MG; Start 11/08/16 at 21:00 Duloxetine HCl (Cymbalta) 30 mg DAILY GTB Last administered on 12/13/16 08:17 ; Admin Dose 30 MG; Start 11/09/16 at 09:00 Fluticasone Propionate (Flonase 0.05% Nasal) 1 spray BID NASAL Last administered on 12/13/16 08:16; Admin Dose 1 SPRAY; Start 11/08/16 at 21:00 Vitamin B Complex/ Vitamin C (Berocca) 1 cap DAILY GTB Last administered on 08:17; Admin Dose 1 CAP; Start 11/09/16 at 09:00 Miscellaneous Information 1 ea NOTE XX ; Start 11/08/16 at 16:00 Glucose (Glutose) 15 gm Q15M PRN PO DECREASED GLUCOSE; Start 11/08/16 at 16:00 Glucose (Glutose) 22.5 gm Q15M PRN PO DECREASED GLUCOSE; Start 11/08/16 at 16: 00 Dextrose (D50w Syringe) 25 ml Q15M PRN IV DECREASED GLUCOSE Last administered on 11/30/16 19:05; Admin Dose 25 ML; Start 11/08/16 at 16:00 Dextrose (D50w Syringe) 50 ml Q15M PRN IV DECREASED GLUCOSE; Start 11/08/16 at 16:00 Glucagon (Glucagen) 1 mg Q15M PRN IM DECREASED GLUCOSE; Start 11/08/16 at 16:00 Glucose (Glutose) 15 gm Q15M PRN BUCCAL DECREASED GLUCOSE; Start 11/08/16 at 16 :00 Morphine Sulfate (morphine) 2 mg Q4H PRN IV PAIN LEVEL 7-10 Last administered on 12/13/16 02:59; Admin Dose 2 MG; Start 11/09/16 at 11:00 Collagenase (Santyl) 1 applic DAILY TOP Last administered on 12/13/16 08:22; Admin Dose 1 APPLIC; Start 11/09/16 at 16:00 Lorazepam (Ativan) 1 mg Q6H PRN IV AGITATION/ANXIETY Last administered on 23:10; Admin Dose 1 MG; Start 11/09/16 at 20:30 Sodium Phosphate (Neutra-Phos) 250 mg BID GTB Last administered on 12/13/16 08 :18; Admin Dose 250 MG; Start 11/10/16 at 09:00 Calcium/Vitamin D (Oyster Shell/ Vit-D (500/200)) 1 tab DAILY GTB Last administered on 12/13/16 08:17; Admin Dose 1 TAB; Start 11/12/16 at 11:00 Prochlorperazine (Compazine) 5 mg Q6H PRN GTB NAUSEA AND/OR VOMITING Last administered on 12/09/16 09:58; Admin Dose 5 MG; Start 11/17/16 at 17:30 Lansoprazole (Prevacid) 30 mg BID@,18 GTB Last administered on 12/13/16 05: 58; Admin Dose 30 MG; Start 11/29/16 at 18:00 Lactobacillus Acidophilus (Florajen3 Capsule) 1 each DAILY PEG Last administered on 12/13/16 08:17; Admin Dose 1 EACH; Start 12/08/16 at 09:00 Acetaminophen/ Hydrocodone Bitart ([place] (7.5-325)) 1 tab Q4H PRN GTB PAIN LEVEL 4-7 Last administered on 12/12/16 17:01; Admin Dose 1 TAB; Start at 13:30 Mupirocin (Bactroban) 1 applic BID TOP ; Start 12/13/16 at 15:00; Status Solo Johnson DO Dec 13, 2016 14:55
[2016-12-13] MEDS: MUPIROCIN 2% 22 GM OINT TOP SCH ×2 (16:27→21:50)
[2016-12-13] MEDS: ATORVASTATIN 40 MG TAB GTB SCH (21:48)
[2016-12-13] MEDS: HYDROCODONE/APAP (7.5/325) TAB GTB PRN (21:49)
[2016-12-14] VITALS (27 sets, daily range): BP systolic 88–110; BP diastolic 39–63; PULSE 70–100; RESP 15–33
[2016-12-14] MEDS: morphine 2 MG INJ IV PRN ×3 (01:32→10:55)
[2016-12-14] MEDS: LORAZEPAM 2 MG INJ IV PRN ×2 (01:32→16:15)
[2016-12-14] MEDS: LANSOPRAZOLE 30 MG CAP GTB SCH ×2 (05:39→18:12)
[2016-12-14 06:40] LABS: ADD SCAN DIFF NO
[2016-12-14 06:47] LABS: BASOPHILS % 0.3 % (0.0-2.0); EOSINOPHILS # 0.2 10^3/ul (0.0-0.5); EOSINOPHILS % 1.6 % (0.0-7.0); HEMATOCRIT 30.8 % (42.0-52.0); HEMOGLOBIN 9.8 g/dl (14.0-18.0); LYMPHOCYTES % 10.7 % (15.0-51.0); MEAN CORPUSCULAR HEMOGLOBIN 31.6 pg (29.0-33.0); MEAN CORPUSCULAR HGB CONC 31.8 g/dl (32.0-37.0); MEAN CORPUSCULAR VOLUME 99.4 fl (82.0-101.0); MEAN PLATELET VOLUME 9.2 fl (7.4-10.4); MONOCYTES % 10.2 % (0.0-11.0); NEUTROPHIL # 7.3 10^3/ul (1.6-7.5); NEUTROPHILS % 76.6 % (39.0-77.0); PLATELET COUNT 171 10^3/UL (140-415); RED CELL DISTRIBUTION WIDTH 17.4 % (11.5-14.5); WHITE BLOOD COUNT 9.5 10^3/ul (4.8-10.8)
[2016-12-14 07:04] LABS: POTASSIUM 4.2 mmol/L (3.5-5.1)
[2016-12-14 07:07] LABS: CALCIUM 7.9 mg/dl (8.4-10.2); CREATININE 2.84 mg/dl (0.61-1.24)
[2016-12-14] MEDS: NEUTRA-PHOS 250 MG PACKET GTB SCH (08:15)
[2016-12-14] MEDS: LIDOCAINE 5% PATCH TD SCH (08:15)
[2016-12-14] MEDS: ASCORBIC ACID 500 MG TAB GTB SCH (08:15)
[2016-12-14] MEDS: FLUTICASONE 0.05% 16 GM NAS SPRAY NASAL SCH (08:16)
[2016-12-14] MEDS: CALCIUM/VITAMIN D (500/200) TAB GTB SCH (08:16)
[2016-12-14] MEDS: VITAMIN B COMPLEX/VIT C CAP GTB SCH (08:16)
[2016-12-14] MEDS: DULOXETINE 30 MG CAP DR GTB SCH (08:16)
[2016-12-14] MEDS: MUPIROCIN 2% 22 GM OINT TOP SCH (08:17)
[2016-12-14] MEDS: L ACIDOPHIL/B LACTIS/B LONGUM CAPSULE PEG SCH (08:18)
[2016-12-14] MEDS: COLLAGENASE 30 GM TUBE TOP SCH (08:18)
--- NOTE | 2016-12-14 09:27 | PN ---
DATE: SUBJECTIVE: The patient is stable. No events overnight. No fevers, chills, nausea or vomiting. N o shortness of breath. OBJECTIVE: VITAL SIGNS: Blood pressure 110/54, respiration 18, pulse 72, temperature 98.0. HEENT: Head is normocephalic. NECK: Supple. HEART: Regular rate. LUNGS: Showed diminished breath sounds at the base. ABDOMEN: Soft, nontender to palpation. No rebound or guarding. EXTREMITIES: Negative for clubbing or cyanosis. Positive edema, right leg. Left below knee amputat ion noted. DERMATOLOGIC: No rashes. MUSCULOSKELETAL: Have no joint effusion. NEUROLOGIC: No change in exam. MEDICATIONS: The patient's medication were reviewed. LABORATORY DATA: Shows sodium 139, potassium 4.2, BUN 15, creatinine 2.84. White count 9.5, hemogl obin 9.8, hematocrit 30.8, platelet count 171. ASSESSMENT AND PLAN: 1. End-stage renal disease. The patient is scheduled for dialysis today. Will dialyze for 3 hours , 3K bath, calcium 2.5. 2. Anemia of end-stage renal disease. Continue to monitor H and H levels. Continue Epogen. 3. Mineral bone disorder. Continue to monitor calcium and phosphorus levels. 4. Ventilatory-dependent respiratory failure. Vent settings have been reviewed. Continue to monit or. 5. Volume overload/congestive heart failure. Continue ultrafiltration dialysis. Follow up with ca rdiology for recommendations. 6. Dysphagia. Status post PEG. Continue tube feedings. 7. Coronary artery disease. Continue the current treatment plan. 8. Decubitus wound. Continue wound care. 9. Pulmonary hypertension. Continue Sildenafil. 10. Status post sepsis. Dictated By: SARAHI RINALDI/OLESYA Conf#: [id number] DID#: [id number]
--- NOTE | 2016-12-14 10:33 | CONS ---
Date/Time of Note Date/Time of Note DATE: 12/14/16 TIME: 10:31 Assessment/Plan Assessment/Plan Additional Assessment/Plan Ventilator settings; AC of 14, tidal volume 500, PEEP of 5, 30% FiO2. Assessment recommendations; 1. Patient admitted for UTI and sepsis status post antibiotic treatment. 2. Chronic respiratory failure. 3. End-stage renal disease, on hemodialysis. Continue current treatment. Patient awaiting transfer to rehab center. Consultation Date/Type/Reason Admit Date/Time Nov 08, 2016 at 10:56 Initial Consult Date 11/08/16 Type of Consultation: Pulmonary Referring Provider: GRACIE KATHLEEN 24 HR Interval Summary Free Text/Dictation Patient condition stable. Remains awake alert. Denies any shortness of breath , chest pain. General exam; elderly male, on ventilator via tracheostomy currently in no distress. Exam/Review of Systems Vital Signs Vitals Vital Signs Date Time Temp Pulse Resp B/P Pulse Ox O2 Delivery O2 Flow Rate FiO2 12/14/16 09:25 79 19 96 30 12/14/16 08:12 98.0 110/54 Intake and Output 12/13/16 12/13/16 12/14/16 15:00 23:00 07:00 Intake Total 680 ml 630 ml Balance 680 ml 630 ml Exam HEENT examination; supple neck, no JVD. No lymphadenopathy. Midline trachea. No thyromegaly., Tracheostomy in place. Chest examination; clear to auscultation. S1-S2 audible, no murmurs., Regular rhythm. Abdomen examination; soft, G-tube in place. No organomegaly. Bowel sounds audible. Extremity examination; no peripheral edema. There is a well-healed left below- knee in position stump. 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 Results Result Diagram: 12/14/16 0542 12/14/16 0542 Results 24 hrs Laboratory Tests Test 12/14/16 05:42 White Blood Count 9.5 Red Blood Count 3.10 L Hemoglobin 9.8 L Hematocrit 30.8 L Mean Corpuscular Volume 99.4 Mean Corpuscular Hemoglobin 31.6 Mean Corpuscular Hemoglobin Concent 31.8 L Red Cell Distribution Width 17.4 H Platelet Count 171 Mean Platelet Volume 9.2 Neutrophils % 76.6 Lymphocytes % 10.7 L Monocytes % 10.2 Eosinophils % 1.6 Basophils % 0.3 Nucleated Red Blood Cells % 0.0 Neutrophils # 7.3 Lymphocytes # 1.0 Monocytes # 1.0 H Eosinophils # 0.2 Basophils # 0.0 Nucleated Red Blood Cells # 0.0 Sodium Level 139 Potassium Level 4.2 Chloride Level 100 Carbon Dioxide Level 26 Anion Gap 17 H Blood Urea Nitrogen 58 H Creatinine 2.84 H Glucose Level 207 Calcium Level 7.9 L Medications Medications Current Medications Lidocaine (Lidoderm) 1 patch DAILY TD Last administered on 12/14/16 08:15; Admin Dose 1 PATCH; Start 11/08/16 at 15:30 Acetaminophen (Tylenol Liquid) 325 mg Q4H PRN GTB MILD PAIN LEVEL 1-3 Last administered on 11/17/16 02:37; Admin Dose 325 MG; Start 11/08/16 at 15:30 Acetaminophen (Tylenol Liquid) 650 mg Q4H PRN GTB MODERATE PAIN LEVEL 4-6 Last administered on 12/09/16 18:00; Admin Dose 650 MG; Start 11/08/16 at 15:30 Ascorbic Acid (Vitamin C) 500 mg DAILY GTB Last administered on 12/14/16 08:15 ; Admin Dose 500 MG; Start 11/09/16 at 09:00 Atorvastatin Calcium (Lipitor) 40 mg QHS GTB Last administered on 12/13/16 21: 48; Admin Dose 40 MG; Start 11/08/16 at 21:00 Carvedilol (Coreg) 3.125 mg BID GTB Last administered on 12/14/16 08:15; Admin Dose 3.125 MG; Start 11/08/16 at 21:00 Duloxetine HCl (Cymbalta) 30 mg DAILY GTB Last administered on 12/14/16 08:16 ; Admin Dose 30 MG; Start 11/09/16 at 09:00 Fluticasone Propionate (Flonase 0.05% Nasal) 1 spray BID NASAL Last administered on 12/14/16 08:16; Admin Dose 1 SPRAY; Start 11/08/16 at 21:00 Vitamin B Complex/ Vitamin C (Berocca) 1 cap DAILY GTB Last administered on 08:16; Admin Dose 1 CAP; Start 11/09/16 at 09:00 Miscellaneous Information 1 ea NOTE XX ; Start 11/08/16 at 16:00 Glucose (Glutose) 15 gm Q15M PRN PO DECREASED GLUCOSE; Start 11/08/16 at 16:00 Glucose (Glutose) 22.5 gm Q15M PRN PO DECREASED GLUCOSE; Start 11/08/16 at 16: 00 Dextrose (D50w Syringe) 25 ml Q15M PRN IV DECREASED GLUCOSE Last administered on 11/30/16 19:05; Admin Dose 25 ML; Start 11/08/16 at 16:00 Dextrose (D50w Syringe) 50 ml Q15M PRN IV DECREASED GLUCOSE; Start 11/08/16 at 16:00 Glucagon (Glucagen) 1 mg Q15M PRN IM DECREASED GLUCOSE; Start 11/08/16 at 16:00 Glucose (Glutose) 15 gm Q15M PRN BUCCAL DECREASED GLUCOSE; Start 11/08/16 at 16 :00 Morphine Sulfate (morphine) 2 mg Q4H PRN IV PAIN LEVEL 7-10 Last administered on 12/14/16 06:08; Admin Dose 2 MG; Start 11/09/16 at 11:00 Collagenase (Santyl) 1 applic DAILY TOP Last administered on 12/14/16 08:18; Admin Dose 1 APPLIC; Start 11/09/16 at 16:00 Lorazepam (Ativan) 1 mg Q6H PRN IV AGITATION/ANXIETY Last administered on 01:32; Admin Dose 1 MG; Start 11/09/16 at 20:30 Sodium Phosphate (Neutra-Phos) 250 mg BID GTB Last administered on 12/14/16 08 :15; Admin Dose 250 MG; Start 11/10/16 at 09:00 Calcium/Vitamin D (Oyster Shell/ Vit-D (500/200)) 1 tab DAILY GTB Last administered on 12/14/16 08:16; Admin Dose 1 TAB; Start 11/12/16 at 11:00 Prochlorperazine (Compazine) 5 mg Q6H PRN GTB NAUSEA AND/OR VOMITING Last administered on 12/09/16 09:58; Admin Dose 5 MG; Start 11/17/16 at 17:30 Lansoprazole (Prevacid) 30 mg BID@ GTB Last administered on 12/14/16 05: 39; Admin Dose 30 MG; Start 11/29/16 at 18:00 Lactobacillus Acidophilus (Florajen3 Capsule) 1 each DAILY PEG Last administered on 12/14/16 08:18; Admin Dose 1 EACH; Start 12/08/16 at 09:00 Acetaminophen/ Hydrocodone Bitart ([place] (7.5-325)) 1 tab Q4H PRN GTB PAIN LEVEL 4-7 Last administered on 12/13/16 21:49; Admin Dose 1 TAB; Start at 13:30 Mupirocin (Bactroban) 1 applic BID TOP Last administered on 12/14/16 08:17; Admin Dose 1 APPLIC; Start 12/13/16 at 15:00 ELVI BLANK Dec 14, 2016 10:33
--- NOTE | 2016-12-14 12:07 | CONS ---
Date/Time of Note Date/Time of Note DATE: 12/14/16 TIME: 12:01 Assessment/Plan Assessment/Plan Additional Assessment/Plan Paroxysmal atrial tachycardia Possible GI bleed Respiratory failure status post tracheostomy Diastolic congestive heart failure End-stage renal disease on hemodialysis CAD Diabetes Peripheral arterial disease with history of amputation Pulmonary hypertension Hypotension, labile -Blood pressure trend still labile, holding parameters on coreg. -fluid management via hemodialysis as per our nephrology colleagues Consultation Date/Type/Reason Admit Date/Time Nov 08, 2016 at 10:56 Initial Consult Date 11/09/16 Type of Consultation: cv Referring Provider: GRACIE KATHLEEN 24 HR Interval Summary Free Text/Dictation Denies shortness of breath, chest pain Exam/Review of Systems Vital Signs Vitals Vital Signs Date Time Temp Pulse Resp B/P Pulse Ox O2 Delivery O2 Flow Rate FiO2 12/14/16 09:25 79 19 96 30 12/14/16 08:12 98.0 110/54 Intake and Output 12/13/16 12/13/16 12/14/16 15:00 23:00 07:00 Intake Total 680 ml 630 ml Balance 680 ml 630 ml Exam No apparent distress Constitutional: alert, oriented Head: normocephalic Neck: other (Tracheostomy) Respiratory: other (Coarse breath sounds bilaterally, no wheezing) Cardiovascular: other (S1-S2 heard), regular rate and rhythm Gastrointestinal: bowel sounds, non-tender, soft Extremities: edema Results Result Diagram: 12/14/16 0542 12/14/16 0542 Results 24 hrs Laboratory Tests Test 12/14/16 05:42 White Blood Count 9.5 Red Blood Count 3.10 L Hemoglobin 9.8 L Hematocrit 30.8 L Mean Corpuscular Volume 99.4 Mean Corpuscular Hemoglobin 31.6 Mean Corpuscular Hemoglobin Concent 31.8 L Red Cell Distribution Width 17.4 H Platelet Count 171 Mean Platelet Volume 9.2 Neutrophils % 76.6 Lymphocytes % 10.7 L Monocytes % 10.2 Eosinophils % 1.6 Basophils % 0.3 Nucleated Red Blood Cells % 0.0 Neutrophils # 7.3 Lymphocytes # 1.0 Monocytes # 1.0 H Eosinophils # 0.2 Basophils # 0.0 Nucleated Red Blood Cells # 0.0 Sodium Level 139 Potassium Level 4.2 Chloride Level 100 Carbon Dioxide Level 26 Anion Gap 17 H Blood Urea Nitrogen 58 H Creatinine 2.84 H Glucose Level 207 Calcium Level 7.9 L Medications Medications Current Medications Lidocaine (Lidoderm) 1 patch DAILY TD Last administered on 12/14/16 08:15; Admin Dose 1 PATCH; Start 11/08/16 at 15:30 Acetaminophen (Tylenol Liquid) 325 mg Q4H PRN GTB MILD PAIN LEVEL 1-3 Last administered on 11/17/16 02:37; Admin Dose 325 MG; Start 11/08/16 at 15:30 Acetaminophen (Tylenol Liquid) 650 mg Q4H PRN GTB MODERATE PAIN LEVEL 4-6 Last administered on 12/09/16 18:00; Admin Dose 650 MG; Start 11/08/16 at 15:30 Ascorbic Acid (Vitamin C) 500 mg DAILY GTB Last administered on 12/14/16 08:15 ; Admin Dose 500 MG; Start 11/09/16 at 09:00 Atorvastatin Calcium (Lipitor) 40 mg QHS GTB Last administered on 12/13/16 21: 48; Admin Dose 40 MG; Start 11/08/16 at 21:00 Carvedilol (Coreg) 3.125 mg BID GTB Last administered on 12/14/16 08:15; Admin Dose 3.125 MG; Start 11/08/16 at 21:00 Duloxetine HCl (Cymbalta) 30 mg DAILY GTB Last administered on 12/14/16 08:16 ; Admin Dose 30 MG; Start 11/09/16 at 09:00 Fluticasone Propionate (Flonase 0.05% Nasal) 1 spray BID NASAL Last administered on 12/14/16 08:16; Admin Dose 1 SPRAY; Start 11/08/16 at 21:00 Vitamin B Complex/ Vitamin C (Berocca) 1 cap DAILY GTB Last administered on 08:16; Admin Dose 1 CAP; Start 11/09/16 at 09:00 Miscellaneous Information 1 ea NOTE XX ; Start 11/08/16 at 16:00 Glucose (Glutose) 15 gm Q15M PRN PO DECREASED GLUCOSE; Start 11/08/16 at 16:00 Glucose (Glutose) 22.5 gm Q15M PRN PO DECREASED GLUCOSE; Start 11/08/16 at 16: 00 Dextrose (D50w Syringe) 25 ml Q15M PRN IV DECREASED GLUCOSE Last administered on 11/30/16 19:05; Admin Dose 25 ML; Start 11/08/16 at 16:00 Dextrose (D50w Syringe) 50 ml Q15M PRN IV DECREASED GLUCOSE; Start 11/08/16 at 16:00 Glucagon (Glucagen) 1 mg Q15M PRN IM DECREASED GLUCOSE; Start 11/08/16 at 16:00 Glucose (Glutose) 15 gm Q15M PRN BUCCAL DECREASED GLUCOSE; Start 11/08/16 at 16 :00 Morphine Sulfate (morphine) 2 mg Q4H PRN IV PAIN LEVEL 7-10 Last administered on 12/14/16 10:55; Admin Dose 2 MG; Start 11/09/16 at 11:00 Collagenase (Santyl) 1 applic DAILY TOP Last administered on 12/14/16 08:18; Admin Dose 1 APPLIC; Start 11/09/16 at 16:00 Lorazepam (Ativan) 1 mg Q6H PRN IV AGITATION/ANXIETY Last administered on 01:32; Admin Dose 1 MG; Start 11/09/16 at 20:30 Sodium Phosphate (Neutra-Phos) 250 mg BID GTB Last administered on 12/14/16 08 :15; Admin Dose 250 MG; Start 11/10/16 at 09:00 Calcium/Vitamin D (Oyster Shell/ Vit-D (500/200)) 1 tab DAILY GTB Last administered on 12/14/16 08:16; Admin Dose 1 TAB; Start 11/12/16 at 11:00 Prochlorperazine (Compazine) 5 mg Q6H PRN GTB NAUSEA AND/OR VOMITING Last administered on 12/09/16 09:58; Admin Dose 5 MG; Start 11/17/16 at 17:30 Lansoprazole (Prevacid) 30 mg BID@,18 GTB Last administered on 12/14/16 05: 39; Admin Dose 30 MG; Start 11/29/16 at 18:00 Lactobacillus Acidophilus (Florajen3 Capsule) 1 each DAILY PEG Last administered on 12/14/16 08:18; Admin Dose 1 EACH; Start 12/08/16 at 09:00 Acetaminophen/ Hydrocodone Bitart ([place] (7.5-325)) 1 tab Q4H PRN GTB PAIN LEVEL 4-7 Last administered on 12/13/16 21:49; Admin Dose 1 TAB; Start at 13:30 Mupirocin (Bactroban) 1 applic BID TOP Last administered on 12/14/16 08:17; Admin Dose 1 APPLIC; Start 12/13/16 at 15:00 Solo Leon DO Dec 14, 2016 12:07
--- NOTE | 2016-12-14 13:55 | PN ---
Date/Time of Note Date/Time of Note DATE: 12/14/16 TIME: 13:54 Assessment/Plan VTE Prophylaxis VTE Prophylaxis Intervention: SCD's Lines/Catheters IV [facility]from [facility] [place] Urinary Cath still in place: No Assessment/Plan Chief Complaint/Hosp Course Assessment/Plan - Esophagitis per EGD. Continue Protonix. Dr. Hernandez is following in gastroenterology consultation. - Anemia of chronic disease, on Epogen, continue to monitor hemoglobin and hematocrit, transfuse as needed. - Ascites, SBP ruled out, Status post paracentesis 11/14, ascitic fluid culture negative. - Status post sepsis. Dr. Benjamin deluna is following in infection disease consultation. - End-stage renal disease, hemodialysis dependent. Continue hemodialysis per nephrology. - Chronic respiratory failure with tracheostomy. Dr. Sahu is following in pulmonology consultation. - Coronary artery disease with history of PCI. - Diastolic congestive heart failure, continue to remove fluids with hemodialysis. - Pulmonary hypertension - Peripheral vascular disease, status post left BKA. - Diabetes mellitus type 2, continue NovoLog per sliding scale. - Sacral decub present on admission. Continue current wound care. Pending senior care facility placement. Further recommendations based on clinical course. Plan of care discussed with Dr. Miramontes. Problems: Subjective 24 Hr Interval Summary Free Text/Dictation No acute events patient looks comfortable. Currently undergoing hemodialysis. Exam/Review of Systems Vital Signs Vitals Vital Signs Date Time Temp Pulse Resp B/P Pulse Ox O2 Delivery O2 Flow Rate FiO2 12/14/16 13:28 74 12/14/16 12:05 98.0 18 99/47 97 12/14/16 11:10 30 Intake and Output 12/13/16 12/13/16 12/14/16 15:00 23:00 07:00 Intake Total 680 ml 630 ml Balance 680 ml 630 ml Exam GENERAL: Well-developed, well-nourished male, currently on vent support via trach. HEENT: Head is atraumatic, normocephalic. PERRLA. NECK: Supple. Tracheostomy at the base of the neck. LUNGS: Slightly diminished at the bases. Clear in the upper lobes. HEART: Normal S1, S2. No murmurs, gallops, clicks, rubs noted. ABDOMEN: Protuberant, soft, nondistended, nontender. G-tube in place. EXTREMITIES: The patient is status post left BKA. Right lower extremity with mild edema. The patient has a left upper extremity arteriovenous fistula with palpable thrill and audible bruit. SKIN: No rash, petechiae noted. Sacral decubitus ulcer. NEUROLOGIC: The patient is awake, alert. Results Result Diagram: 12/14/16 0542 12/14/16 0542 Results 24 hrs Laboratory Tests Test 12/14/16 05:42 White Blood Count 9.5 Red Blood Count 3.10 L Hemoglobin 9.8 L Hematocrit 30.8 L Mean Corpuscular Volume 99.4 Mean Corpuscular Hemoglobin 31.6 Mean Corpuscular Hemoglobin Concent 31.8 L Red Cell Distribution Width 17.4 H Platelet Count 171 Mean Platelet Volume 9.2 Neutrophils % 76.6 Lymphocytes % 10.7 L Monocytes % 10.2 Eosinophils % 1.6 Basophils % 0.3 Nucleated Red Blood Cells % 0.0 Neutrophils # 7.3 Lymphocytes # 1.0 Monocytes # 1.0 H Eosinophils # 0.2 Basophils # 0.0 Nucleated Red Blood Cells # 0.0 Sodium Level 139 Potassium Level 4.2 Chloride Level 100 Carbon Dioxide Level 26 Anion Gap 17 H Blood Urea Nitrogen 58 H Creatinine 2.84 H Glucose Level 207 Calcium Level 7.9 L Medications Medications Current Medications Lidocaine (Lidoderm) 1 patch DAILY TD Last administered on 12/14/16 08:15; Admin Dose 1 PATCH; Start 11/08/16 at 15:30 Acetaminophen (Tylenol Liquid) 325 mg Q4H PRN GTB MILD PAIN LEVEL 1-3 Last administered on 11/17/16 02:37; Admin Dose 325 MG; Start 11/08/16 at 15:30 Acetaminophen (Tylenol Liquid) 650 mg Q4H PRN GTB MODERATE PAIN LEVEL 4-6 Last administered on 12/09/16 18:00; Admin Dose 650 MG; Start 11/08/16 at 15:30 Ascorbic Acid (Vitamin C) 500 mg DAILY GTB Last administered on 12/14/16 08:15 ; Admin Dose 500 MG; Start 11/09/16 at 09:00 Atorvastatin Calcium (Lipitor) 40 mg QHS GTB Last administered on 12/13/16 21: 48; Admin Dose 40 MG; Start 11/08/16 at 21:00 Carvedilol (Coreg) 3.125 mg BID GTB Last administered on 12/14/16 08:15; Admin Dose 3.125 MG; Start 11/08/16 at 21:00 Duloxetine HCl (Cymbalta) 30 mg DAILY GTB Last administered on 12/14/16 08:16 ; Admin Dose 30 MG; Start 11/09/16 at 09:00 Fluticasone Propionate (Flonase 0.05% Nasal) 1 spray BID NASAL Last administered on 12/14/16 08:16; Admin Dose 1 SPRAY; Start 11/08/16 at 21:00 Vitamin B Complex/ Vitamin C (Ber[place]) 1 cap DAILY GTB Last administered on 08:16; Admin Dose 1 CAP; Start 11/09/16 at 09:00 Miscellaneous Information 1 ea NOTE XX ; Start 11/08/16 at 16:00 Glucose (Glutose) 15 gm Q15M PRN PO DECREASED GLUCOSE; Start 11/08/16 at 16:00 Glucose (Glutose) 22.5 gm Q15M PRN PO DECREASED GLUCOSE; Start 11/08/16 at 16: 00 Dextrose (D50w Syringe) 25 ml Q15M PRN IV DECREASED GLUCOSE Last administered on 11/30/16 19:05; Admin Dose 25 ML; Start 11/08/16 at 16:00 Dextrose (D50w Syringe) 50 ml Q15M PRN IV DECREASED GLUCOSE; Start 11/08/16 at 16:00 Glucagon (Glucagen) 1 mg Q15M PRN IM DECREASED GLUCOSE; Start 11/08/16 at 16:00 Glucose (Glutose) 15 gm Q15M PRN BUCCAL DECREASED GLUCOSE; Start 11/08/16 at 16 :00 Morphine Sulfate (morphine) 2 mg Q4H PRN IV PAIN LEVEL 7-10 Last administered on 12/14/16 10:55; Admin Dose 2 MG; Start 11/09/16 at 11:00 Collagenase (Santyl) 1 applic DAILY TOP Last administered on 12/14/16 08:18; Admin Dose 1 APPLIC; Start 11/09/16 at 16:00 Lorazepam (Ativan) 1 mg Q6H PRN IV AGITATION/ANXIETY Last administered on 01:32; Admin Dose 1 MG; Start 11/09/16 at 20:30 Sodium Phosphate (Neutra-Phos) 250 mg BID GTB Last administered on 12/14/16 08 :15; Admin Dose 250 MG; Start 11/10/16 at 09:00 Calcium/Vitamin D ([place]/ Vit-D (500/200)) 1 tab DAILY GTB Last administered on 12/14/16 08:16; Admin Dose 1 TAB; Start 11/12/16 at 11:00 Prochlorperazine (Compazine) 5 mg Q6H PRN GTB NAUSEA AND/OR VOMITING Last administered on 12/09/16 09:58; Admin Dose 5 MG; Start 11/17/16 at 17:30 Lansoprazole (Prevacid) 30 mg BID@18 GTB Last administered on 12/14/16 05: 39; Admin Dose 30 MG; Start 11/29/16 at 18:00 Lactobacillus Acidophilus (Florajen3 Capsule) 1 each DAILY PEG Last administered on 12/14/16 08:18; Admin Dose 1 EACH; Start 12/08/16 at 09:00 Acetaminophen/ Hydrocodone Bitart ([place] (7.5-325)) 1 tab Q4H PRN GTB PAIN LEVEL 4-7 Last administered on 12/13/16 21:49; Admin Dose 1 TAB; Start at 13:30 Mupirocin (Bactroban) 1 applic BID TOP Last administered on 12/14/16 08:17; Admin Dose 1 APPLIC; Start 12/13/16 at 15:00 MARY DOMINGUEZ Dec 14, 2016 13:55
--- NOTE | 2016-12-16 21:00 | DS ---
DATE OF ADMISSION: 11/08/2016 DATE OF DISCHARGE: 12/14/2016 ADDENDUM For full discharge summary, refer to discharge summary from __. The patient was discharge d on that date; however, patient had a problem with placement since the patient is a dialysis patien t requiring dialysis 3 times per week and also ventilator dependent. The patient was in stable condition; however, waited for the placement. The patient was found place ment and was transferred to [facility] on 12/14/2016. CONDITION ON DISCHARGE: Hemodynamically stable. ACTIVITY: As patient tolerates. DISCHARGE DIET: Continue on the current tube feeding via G-tube. DISCHARGE MEDICATIONS: 1. Bactroban. 2. [place] p.r.n. for pain. 3. Lactobacillus. 4. Lantus 18 units subcutaneous daily. 5. Prevacid. 6. NovoLog per mild algorithm sliding scale. 7. Nifedipine 30 mg G-tube daily. 8. Nitroglycerin p.r.n. for chest pain. 9. Calcium and vitamin D. 10. Santyl ointment. 11. Neutra-Phos. 12. Cymbalta. 13. Prevacid. 14. Zinc sulfate. 15. Lipitor. 16. Coreg 3.125 mg G-tube b.i.d. 17. Procardia 30 mg G-tube b.i.d. 18. Revatio 20 mg G-tube b.i.d. 19. Epogen 10,000 units after dialysis. 20. Ativan 0.5 mg G-tube q.6h. p.r.n. for agitation. 21. Tylenol p.r.n. Interdisciplinary plan of care was established for this patient. Plan of care was discussed with Dr Eduardo Miramontes. Dictated By: MARY DOMINGUEZ REGULATOR PIN INSERTER for CANDIDA MIRAMONTES MD SR/NTS Conf#: [id number] DID#: [id number]
== END 2016-12-14 19:25 | DRG 870 ==
LOC: E/R 08:55 → TEL 10:56
PROVIDERS: ADMIT Internal Medicine; ATTEND Internal Medicine
PROC: 5A1955Z Respiratory Ventilation, Greater than 96 Consecutive Hours (ICD-10-PCS; principal; 2016-11-08)
PROC: 0DJ08ZZ Inspection of Upper Intestinal Tract, Via Natural or Artificial Opening Endoscopic (ICD-10-PCS; 2016-11-09)
PROC: 0DB68ZX Excision of Stomach, Via Natural or Artificial Opening Endoscopic, Diagnostic (ICD-10-PCS; 2016-11-09)
PROC: 0DB58ZX Excision of Esophagus, Via Natural or Artificial Opening Endoscopic, Diagnostic (ICD-10-PCS; 2016-11-09)
PROC: 5A1D60Z (ICD-10-PCS; 2016-11-09)
PROC: 30233N1 Transfusion of Nonautologous Red Blood Cells into Peripheral Vein, Percutaneous Approach (ICD-10-PCS; 2016-11-10)
PROC: 0W9G3ZZ Drainage of Peritoneal Cavity, Percutaneous Approach (ICD-10-PCS; 2016-11-14)
DX: A41.9 Sepsis, unspecified organism (principal); I13.2 Hypertensive heart and chronic kidney disease with heart failure and with stage 5 chronic kidney disease, or end stage renal disease; G93.1 Anoxic brain damage, not elsewhere classified; J18.9 Pneumonia, unspecified organism; J96.10 Chronic respiratory failure, unspecified whether with hypoxia or hypercapnia; L89.153 Pressure ulcer of sacral region, stage 3; N18.6 End stage renal disease; L89.223 Pressure ulcer of left hip, stage 3; N39.0 Urinary tract infection, site not specified; I50.30 Unspecified diastolic (congestive) heart failure; K94.23 Gastrostomy malfunction; E87.1 Hypo-osmolality and hyponatremia; K92.2 Gastrointestinal hemorrhage, unspecified; K22.10 Ulcer of esophagus without bleeding; Z43.1 Encounter for attention to gastrostomy; R18.8 Other ascites; L89.312 Pressure ulcer of right buttock, stage 2; L89.212 Pressure ulcer of right hip, stage 2; Z93.0 Tracheostomy status; Z66 Do not resuscitate; Z86.718 Personal history of other venous thrombosis and embolism; Z93.1 Gastrostomy status; Z89.512 Acquired absence of left leg below knee; Z99.2 Dependence on renal dialysis; R13.10 Dysphagia, unspecified; I25.10 Atherosclerotic heart disease of native coronary artery without angina pectoris; E11.9 Type 2 diabetes mellitus without complications; F41.8 Other specified anxiety disorders; K29.70 Gastritis, unspecified, without bleeding; D63.8 Anemia in other chronic diseases classified elsewhere; L89.311 Pressure ulcer of right buttock, stage 1; Z22.322 Carrier or suspected carrier of Methicillin resistant Staphylococcus aureus
CPT/HCPCS: 36415; 36430; 71010; 73560; 74000; 74176; 80048; 80053; 81001; 81003; 82945; 82962; 83036; 83605; 83690; 83735; 84100; 84157; 85014; 85018; 85025; 85610; 85730; 86644; 86850; 86900; 86901; 86920; 87040; 87070; 87081; 87102; 87116; 88104; 88305; 88312; 88313; 89050; 90686; 90935; 93005; 93971; 94002; 94003; 96374; 96375; 97162; C9113; J0692; J0886; J1815; J2060; J2250; J2270; J3010; J3370; J7030; J7040; P9016; P9047